=== PATIENT | female | born 1975 | race Caucasian/White ===

== ENCOUNTER 2023-03-23 | Outpatient (REF) | payer OTHER, SELFPAY ==
[2023-03-30 09:09] LABS: Age Gdln ACOG Testing Note (.); HPV Aptima Positive (Negative); HPV Genotype 16 Negative (Negative); HPV Genotype 18,45 Negative (Negative); IGP, Aptima HPV, rfx 16/18,45 Note (.)
== END 2023-03-23 00:01 | disposition home or self-care (01) ==
LOC: LAB
PROVIDERS: PCP Nurse Practitioner; Visit Provider Obstetrics & Gynecology
DX: Z01.419 Encounter for gynecological examination (general) (routine) without abnormal findings (principal)
CPT/HCPCS: 87624; G0145

== ENCOUNTER 2023-03-23 13:00 | Outpatient (OUT) | payer OTHER, SELFPAY ==
--- NOTE | 2023-03-23 | ECG_ITS ---
[facility] Test Date: 2023-03-23 Pat Name: VEDA HEWITT Department: Room: - Gender: Female [employer]: : 1975 Requested By: LARRY VEGA Order Number: [id number] Reading MD: BENJAMIN BOOKER Measurements Intervals [place] Rate: 75 P: 42 CO: 168 QRS: 74 QRSD: 90 T: 96 QT: 394 QTc: 441 Interpretive Statements SINUS RHYTHM WITH OCCASIONAL VENTRICULAR PREMATURE COMPLEXES NONSPECIFIC T-WAVE ABNORMALITY No previous ECG available for comparison Electronically Signed On 03-23-2023 21:01:24 EDT by BENJAMIN BOOKER
[2023-03-23 13:47] LABS: Hematocrit 39.7 % (36.0-48.0); Hemoglobin 13.4 g/dL (12.0-16.0); Mean Corpuscular HGB Conc 33.8 g/dL (29.9-35.2); Mean Corpuscular Hemoglobin 31.3 pg (26.7-34.0); Mean Corpuscular Volume 92.8 fL (81.0-99.0); Mean Platelet Volume 9.8 fL (9.5-13.5); Monocytes Percent Auto 5.3 % (1.7-12.0); Neutrophils Percent Auto 60.5 % (43.0-75.0); Platelet Count 264 10^3/uL (150-450); Red Blood Count 4.28 10^6/uL (4.20-5.40); Red Cell Distribution Width 12.7 % (11.0-15.0)
[2023-03-23 13:48] LABS: Basophils Absolute Auto 0.1 10^3/uL (0.0-0.1); Basophils Percent Auto 0.8 % (0.2-2.0); Eosinophils Absolute Auto 0.5 10^3/uL (0.0-0.7); Eosinophils Percent Auto 6.1 % (0.9-7.0); Immature Granulocytes Abs Auto 0.02 10^3/uL (0.00-0.03); Immature Granulocytes Pct Auto 0.3 % (0.0-0.5); Lymphocytes Absolute Auto 2.2 10^3/uL (1.2-3.8); Monocytes Absolute Auto 0.4 10^3/uL (0.3-0.8); Neutrophils Absolute Auto 4.8 10^3/uL (1.4-6.5)
[2023-03-23 14:24] LABS: Alanine Aminotransferase 20 U/L (14-59); Albumin Globulin Ratio 0.8; Albumin Level 3.5 g/dL (3.4-5.0); Alkaline Phosphatase 121 U/L (46-116); Anion Gap 10.2; Aspartate Amino Transferase 10 U/L (15-37); BUN Creatinine Ratio 6.1; Bilirubin Total 0.2 mg/dL (0.2-1.0); Calcium 8.5 mg/dL (8.5-10.1); Carbon Dioxide 31.8 mmol/L (21.0-32.0); Chloride 101 mmol/L (98-107); Estimated GFR (African America >60 (>=60); Estimated GFR (Non-African Ame >60 (>=60); Globulin 4.2 g/dL; Glucose 118 mg/dL (74-106); Sodium 140 mmol/L (136-145); Total Protein 7.7 g/dL (6.4-8.2)
== END 2023-03-23 13:01 | disposition home or self-care (01) ==
LOC: CARD 13:04
PROVIDERS: PCP Nurse Practitioner; Visit Provider Nurse Practitioner
DX: Z01.810 Encounter for preprocedural cardiovascular examination (principal); Z01.812 Encounter for preprocedural laboratory examination; I10 Essential (primary) hypertension
CPT/HCPCS: 36415; 80053; 85025; 93005; G0145

== ENCOUNTER 2023-03-28 15:02 | Outpatient (OUT) | payer OTHER, SELFPAY ==
[2023-03-28 15:34] LABS: Potassium 4.4 mmol/L (3.5-5.1)
[2023-03-28 15:49] LABS: Estimated Average Glucose 108 mg/dL; Glycohemoglobin A1C 5.4 % (4.5-6.2)
== END 2023-03-28 15:03 | disposition home or self-care (01) ==
LOC: LAB 15:04
PROVIDERS: PCP Nurse Practitioner; Visit Provider Nurse Practitioner
DX: E87.6 Hypokalemia (principal); R73.09 Other abnormal glucose
CPT/HCPCS: 36415; 83036; 84132

== ENCOUNTER 2023-04-30 05:47 | Emergency (ER) | payer OTHER, SELFPAY | END 2023-04-30 05:49 | disposition home or self-care (01) | LOC: ER 05:50 | PROVIDERS: Emergency Provider Emergency Medicine; PCP Nurse Practitioner | DX: R11.0 Nausea (principal); K21.9 Gastro-esophageal reflux disease without esophagitis | CPT/HCPCS: 99283 ==

== ENCOUNTER 2023-05-17 12:32 | Outpatient (OUT) | payer OTHER, SELFPAY ==
[2023-05-17 15:59] LABS: Free T4 0.88 ng/dL (0.76-1.46)
[2023-05-17 16:09] LABS: Anion Gap 10.8; BUN Creatinine Ratio 5.6; Calcium 8.2 mg/dL (8.5-10.1); Carbon Dioxide 30.8 mmol/L (21.0-32.0); Chloride 99 mmol/L (98-107); Estimated GFR (African America >60 (>=60); Estimated GFR (Non-African Ame 54 (>=60); Glucose 139 mg/dL (74-106); Sodium 138 mmol/L (136-145); Thyroid Stimulating Hormone 0.345 uIU/mL (0.358-3.740)
[2023-05-17 16:25] LABS: Potassium 2.6 mmol/L (3.5-5.1)
== END 2023-05-17 12:33 | disposition home or self-care (01) ==
LOC: LAB 12:33
PROVIDERS: PCP Nurse Practitioner; Visit Provider Nurse Practitioner
DX: E87.6 Hypokalemia (principal); E03.9 Hypothyroidism, unspecified
CPT/HCPCS: 36415; 80048; 84439; 84443

== ENCOUNTER 2023-05-30 15:08 | Outpatient (OUT) | payer OTHER, SELFPAY ==
[2023-05-30 15:43] LABS: Anion Gap 9.1; BUN Creatinine Ratio 9.6; Calcium 9.1 mg/dL (8.5-10.1); Chloride 103 mmol/L (98-107); Estimated GFR (African America >60 (>=60); Estimated GFR (Non-African Ame 50 (>=60); Glucose 92 mg/dL (74-106); Potassium 3.1 mmol/L (3.5-5.1); Sodium 138 mmol/L (136-145)
== END 2023-05-30 15:09 | disposition home or self-care (01) ==
LOC: LAB 15:09
PROVIDERS: PCP Nurse Practitioner; Visit Provider Nurse Practitioner
DX: E87.6 Hypokalemia (principal)
CPT/HCPCS: 36415; 80048

== ENCOUNTER 2023-06-25 12:02 | Outpatient (OUT) | payer OTHER, SELFPAY ==
[2023-06-25 12:48] LABS: Anion Gap 8.2; BUN Creatinine Ratio 9.6; Calcium 9.1 mg/dL (8.5-10.1); Carbon Dioxide 29.1 mmol/L (21.0-32.0); Chloride 99 mmol/L (98-107); Estimated GFR (African America >60 (>=60); Estimated GFR (Non-African Ame >60 (>=60); Glucose 155 mg/dL (74-106); Potassium 3.3 mmol/L (3.5-5.1); Sodium 133 mmol/L (136-145)
== END 2023-06-25 12:03 | disposition home or self-care (01) ==
LOC: LAB 12:04
PROVIDERS: PCP Nurse Practitioner; Visit Provider Nurse Practitioner
DX: E87.6 Hypokalemia (principal)
CPT/HCPCS: 36415; 80048

== ENCOUNTER 2023-08-24 16:37 | Outpatient (OUT) | payer OTHER, SELFPAY ==
--- OUTSIDE RECORDS SUMMARY | 2023-08-24 16:54 | XMS_ITS | CCD ---
Author Name Unknown Address [address] [place] [address] Organization [facility] Care Team Providers Care Awake Overnight Monitor Name Role Phone Gena Kirby Unavailable Unavailable Unavailable Gena Kirby Primary Care Provider Unavailable Primary Care Provider Unavailabl e Yi Moreno MD Unavailable Wiley Mcmanus Unavailable Yi Moreno MD Unavailable Gena Kirby Primary Care Provider MD Wiley Mcmanus Attending Provider MD Yi Moreno Referring Provider [phone] Isabel Sin Unavailable Matthew RITCHIE MD, Justin Unavailable Gena Corrales Unavailable Gena Kirby Primary Care Provider Yi Moreno MD Unavailable Matthew RITCHIE MD, Justin Unavailable [phone] Gena Corrales Unavailable Gena Kirby Primary Care Provider [phone] MD Yi Moreno Referring Provider MD Wiley Mcmanus Attending Provider [phone] Gena Corrales Unavailable AICHHOLZ, GREASER HELPER GENA Admitting Unavailable AICHHOLZ, GREASER HELPER GENA Attending Unavailable AICHHOLZ, GREASER HELPER GENA Consulting Unavailable AICHHOLZ, GREASER HELPER GENA Primary Care Unavailable KAVITHA ., DR ARIZA Attending Unavailable KAVITHA ., DR ARIZA Consulting Unavailable KAVITHA ., DR ARIZA Admitting Unavailable AICHHOLZ, GREASER HELPER GENA Primary Care Unavailable WEST, DR WILEY Bryant Consulting Unavailable KAVITHA ., DR ARIZA Attending Unavailable AICHHOLZ, GREASER HELPER GENA Primary Care Unavailable KAVITHA ., DR ARIZA Admitting Unavailable KAVITHA ., DR ARIZA Consulting Unavailable AICHHOLZ, GREASER HELPER GENA Primary Care Unavailable AICHHOLZ, GREASER HELPER GENA Admitting Unavailable AICHHOLZ, GREASER HELPER GENA Attending Unavailable AICHHOLZ, GREASER HELPER GENA Consulting Unavailable KAVITHA ., DR ARIZA Attending Unavailable AICHHOLZ, GREASER HELPER GENA Primary Care Unavailable KAVITHA ., DR ARIZA Admitting Unavailable KAVITHA ., DR ARIZA Admitting Unavailable KAVITHA ., DR ARIZA Attending Unavailable AICHHOLZ, GREASER HELPER GENA Primary Care Unavailable KAVITHA ., DR ARIZA Consulting Unavailable TATETERESAMARTIN Consulting Unavailable MARGARITA II, BERTHA Consulting Unavailable KAVITHA ., DR ARIZA Attending Unavailable AICHHOLZ, GREASER HELPER GENA Primary Care Unavailable KAVITHA ., DR ARIZA Admitting Unavailable KAVITHA ., DR ARIZA Attending Unavailable AICHHOLZ, GREASER HELPER GENA Primary Care Unavailable KAVITHA ., DR ARIZA Admitting Unavailable KAVITHA ., DR ARIZA Consulting Unavailable KAVITHA ., DR ARIZA Admitting Unavailable KAVITHA ., DR ARIZA Attending Unavailable AICHHOLZ, GREASER HELPER GENA Primary Care Unavailable AICHHOLZ, GREASER HELPER GENA Primary Care Unavailable AICHHOLZ, GREASER HELPER GENA Attending Unavailable AICHHOLZ, GREASER HELPER GENA Admitting Unavailable AICHHOLZ, GREASER HELPER GENA Consulting Unavailable KAVITHA ., DR ARIZA Attending Unavailable KAVITHA ., DR ARIZA Consulting Unavailable AICHHOLZ, GREASER HELPER GENA Primary Care Unavailable KAVITHA ., DR ARIZA Admitting Unavailable ZIEBER, DR MADDI Wild Consulting Unavailable AICHHOLZ, GREASER HELPER GENA Consulting Unavailable AICHHOLZ, GREASER HELPER GENA Primary Care Unavailable AICHHOLZ, GREASER HELPER GENA Attending Unavailable AICHHOLZ, GREASER HELPER GENA Admitting Unavailable MISC, DR PETERS Admitting Unavailable MISC, DR PETERS Attending Unavailable MISC, DR PETERS Consulting Unavailable AICHHOLZ, GREASER HELPER GENA Primary Care Unavailable AICHHOLZ, GREASER HELPER GENA Primary Care Unavailable AICHOLZ, GREASER HELPER GENA Attending Unavailable AICHHOLZ, GREASER HELPER GENA Admitting Unavailable AICHHOLZ, GREASER HELPER GENA Consulting Unavailable PROVIDER, UNKNOWN Admitting Unavailable PROVIDER, UNKNOWN Attending Unavailable YI MORENO Referring Unavailabl e YI MORENO Admitting Unavailabl e YI MORENO Attending Unavailabl e YI MORENO Referring Unavailabl e CLEMOW, RIKKI Admitting Unavailable PROVIDER, UNKNOWN Attending Unavailable PROVIDER, UNKNOWN Admitting Unavailable PROVIDER, UNKNOWN Attending Unavailable PATIENT, SELF Referring Unavailable PROVIDER, UNKNOWN Admitting Unavailable PROVIDER, UNKNOWN Attending Unavailable YI MORENO Referring Unavailabl e PROVIDER, UNKNOWN Admitting Unavailable PROVIDER, UNKNOWN Attending Unavailable PATIENT, SELF Referring Unavailable PROVIDER, UNKNOWN Admitting Unavailable PROVIDER, UNKNOWN Attending Unavailable YI MORENO Referring Unavailabl e PROVIDER, UNKNOWN Admitting Unavailable PROVIDER, UNKNOWN Attending Unavailable RIKKI RODRIGUES Referring Unavailable YI MORENO Admitting Unavailabl e HERMES, YI Rebollar Attending Unavailabl e CLEMOWSTEWARTIN Admitting Unavailable CLEMORIKKI Frey Attending Unavailable PROVIDER, UNKNOWN Admitting Unavailable PROVIDER, UNKNOWN Attending Unavailable CLEMORIKKI Frey Referring Unavailable PROVIDER, UNKNOWN Admitting Unavailable PROVIDER, UNKNOWN Attending Unavailable PATIENT, SELF Referring Unavailable PROVIDER, UNKNOWN Admitting Unavailable PROVIDER, UNKNOWN Attending Unavailable PROVIDER, UNKNOWN Admitting Unavailable PROVIDER, UNKNOWN Attending Unavailable YI MORENO Referring Unavaildania e HERMES ERNST~[id number] Attending Unavailable HERMES ERNST~[id number], HERMES Beltran Admitting Unavailable YI SYKES DO Consulting Unavailable AA NO PCP, NO PCP Primary Care Unavailable YI SYKES DO Consulting Unavailable GENA KIRBY Primary Care Unavailable ELIN BALLARD Referring Unavailable ELIN BALLARD Referring Unavailable GENA KIRBY Primary Care Unavailable ELIN BALLARD Referring Unavailable GENA KIRBY Primary Care Unavailable AICHHOLZ, GENA J. Primary Care Unavailable FELIZ WEAVER Referring Unavailable Gena Kirby Primary Care Provider MD Wiley Mcmanus Attending Provider Louise Johnson Unavailable Kar Lyman Unavailable Gena Kirby Primary Care Provider KATHRIN Lyman Attending Provider MD David Martinez Attending Provider Asaad, Imad Unavailable Wiley Mcmanus Attending Unavailable Gena Kirby Primary Care Unavailable Wiley Mcmanus Admitting Unavailable Gena Kirby Primary Care Unavailable Kar Lyman Admitting Unavailable Kar Lyman Attending Unavailable Wiley Mcmanus Admitting Unavailable Wiley Mcmanus Attending Unavailable Yi Moreno Referring Unavailable Gena Kirby Primary Care Unavailable Gena Kirby Primary Care Unavailable Asaad, Imad Admitting Unavailable David Martinez Attending Unavailable Medications Current Medications Medication Drug Class(es) Dates Sig (Normalized) Sig (Original) acetaminophen 500 mg oral tablet (20 sources) Start: 07-17-2022 take 1 tablet by mouth every six hours as needed for pain acetaminophen (TYLENOL) 500 MG tablet Take 1 Tablet by mouth every 6 hours as needed for Pain or Fever. 30 Tablet 0 07/17/2022 Active Start: 07-15-2022 acetaminophen (TYLENOL) 650 MG/20.3ML oral solution SF Start: 07-14-2022 End: 07-15-2022 take 650 mg by mouth every four hours 650 mg, Oral, EVERY 4 HOURS, First dose on Tue07/14/22 at 1530, Until Discontinued, ICU/Step Down Start: 02-25-2022 take 2 tablets by mo msh every four hours as needed acetaminophen (TYLENOL) 325 mg tablet Take 2 Tablets by mouth every 4 hours as needed. 30 Tablet 0 02/26/2022 Active Start: 02-25-2022 take 1 tablet by rosy every eight hours as needed for pain acetaminophen (Tylenol 8 Hour) 650 MG CR tablet Take 1 Tablet by mouth every 8 hours as needed for Pain or Fever. 30 Tablet 0 02/25/2022 Active Start: 01-05-2022 End: 01-05-2022 acetaminophen (TYLENOL) tabl et 650 mg Tylenol CAPS ALEXANDRA E 1 CAPSULE Daily prn Quantity: 0 Refills: 0 Ordered: 14-Oct-2021 DO Active amoxicillin 875 mg / clavulanate 125 mg oral tablet (1 source) Penicillin-class Antibacterial Start: 07-17-2022 End: 07-21-2022 take 1 tablet by mouth twice daily amoxicillin-clavulanate (Augmentin) 875-125 MG per tablet Take 1 Tablet by mouth 2 times daily for 4 days. 8 Tablet 0 07/17/2022 07/21/2022 Active Ampicillin / Sulbactam (2 sources) Penicillin-class Antibacterial, beta Lactamase Inhibitor Start: 07-15-2022 End: 07-20-2022 ampicillin-sulbactam (Unasyn) 3000 mg in NS 100 mL ivpb Start: 07-14-2022 End: 07-14-2022 3,000 mg, Intravenous, EVERY 6 HOURS ANTIBIOTIC, 2 doses, First dose on Tue07/14/22 at 1530, Last dose on Tue07/14/22 at 1800 budesonide 3 mg delayed release oral capsule (2 sources) Corticosteroid Start: 08-10-2023 Budesonide 3 M G 3 tabs daily for 60 days, 2 tabs daily for 14 days, 1 tab daily for 14 days Orally Once a day for 88 days Jul, Active calcium polycarbophil (8 sources) Calcium Polycarb ophil (FIBER-CAPS PO) Take by mouth as needed 0 Suspended Calcium Polycarb ophil (FIBER-CAPS PO) Take by mouth as needed 0 Active chlorhexidine gluconate 1.2 mg/ml mouthwash (13 sources) Start: 07-17-2022 take 15 mL by mouth twice daily chlorhexidine (Peridex) 0.12 % oral solution Take 15 mL by mouth 2 times daily. 1 mL 3 07/17/2022 Active Start: 07-14-2022 15 mL, Swish & Spit, 2 TIMES DAILY, First dose on Tue07/14/22 at 1530, Until Discontinued, ICU/Step Down cholecalciferol 0.05 mg oral capsule (3 sources) Vitamin D take 1 capsule by mouth every twenty-four hours Vitamin D3 50 MCG (1999 UT) 1 capsule Orally Once a day Active citric acid 68.6 MG/ML / magnesium oxide 20 MG/ML / picosulfate sodium 0.0571 MG/ML Oral Solution [Clenpiq] (1 source) Start: take 1 dose by mouth once daily Clenpiq 10-3.5-12 MG-GM -GM/175ML 175 mL the first dose at 3pm and second dose at 9pm Orally Once a day for 1 days Jun, Active clenpiq 10-3.5-12 mg-gm -gm/175ml solution (2 sources) Start: take 1 dose by mouth once daily Clenpiq 10-3.5-12 MG-GM -GM/175ML 175 mL the first dose at 3pm and second dose at 9pm Orally Once a day for 1 days Jun, Active dicyclomine hydrochloride 10 mg oral capsule (2 sources) Anticholinergic Start: take 1 capsule by mouth every eight hours Dicyclomine HCl 10 MG 1 capsule Orally Three times a day for 30 days Jul, Active 0.4 ml enoxaparin sodium 100 mg/ml prefilled syringe (2 sources) Low Molecular Weight Heparin Start: enoxaparin (LOVENOX) 40 MG/0.4ML injection 40 mg Start: 07-14-2022 End: 07-15-2022 inject 40 mg by subcutaneous injection once daily 40 mg, Subcutaneous, DAILY, First dose on Tue07/14/22 at 1530, Until Discontinued, ICU/Step Down Fiber (8 sources) Fiber Active 250 ml glucose 50 mg/ml / so dium chloride 4.5 mg/ml injection (2 sources) Start: 07-16-2022 End: 07-19-2022 dextrose 5 % and NaCl 0.45 % iv infusion Start: 07-16-2022 End: 07-16-2022 dextrose 5 % and sodium chlo ride 0.45 % iv bolus hydroCHLOROthiazide 25 mg / triamterene 37.5 mg oral tablet (20 sources) Potassium-sparing Diuretic, Thiazide Diuretic Start: 10-14-2021 take 1 tablet by mouth once daily Triamterene-HCTZ 37.5-25 MG Oral Tablet TAKE 1 TABLET DAILY DIRECTED. Quantity: 90 Refills: 3 Ordered: 14-Oct-2021 Eileen Nichols MD Start : 14-Oct-2021 Active stop lasix and potassium Start: 10-14-2021 End: 05-28-2022 take 1 tablet by mouth every other day at bedtime triamterene-hydrochlorothiazide (MAXZIDE ) 37.5-25 MG tablet Take 1 Tablet by mouth every other day. HS 0 12/14/2021 Active ibuprofen 600 mg oral tablet (6 sources) Nonsteroidal Anti-inflammatory Drug Start: 07-14-2022 End: 07-24-2022 take 1 tablet by mouth every six hours as needed for pain ibuprofen (MOTRIN) 600 MG tablet Take 1 Tablet by mouth every 6 hours as needed for Pain for up to 7 days. 28 Tablet 3 07/17/2022 07/24/2022 Active take 1 tablet by rosy once daily as needed Ibuprofen 200 MG Oral Tablet TAKE 1 TABL ET Daily prn Quantity: 0 Refills: 0 Ordered: 14-Oct-2021 DO Active insulin lispro 100 unt/ml injectable solution (1 source) Insulin Analog Start: 07-15-2022 insulin lispro (HumaLOG) 100 UNIT/ML injection 2 ml metoclopramide 5 mg/ml prefilled syringe (1 source) Dopamine-2 Receptor Antagonist Start: 01-05-2022 End: 01-05-2022 10 mg, IntraVENous, ONCE PRN, 1 dose, Starting on Tue01/05/22 at 1558, Until Tue01/05/22 at 2359, Nausea Secondary antiemetic therapy. PACU only Multiple Vitamins-Minerals (THERAPEUTIC MULTIVITAMIN-MINERALS ) tablet (6 sources) take 1 tablet by mouth once daily Multiple Vitamins-Minerals (THERAPEUTIC MULTIVITAMIN-MINE RALS) tablet Take 1 tablet by mouth daily 0 Suspended take 1 tablet by mouth once gagan y Multiple Vitamins-Minerals (THERAPEUTIC MULTIVITAMIN-MINERALS) tablet Take 1 tablet by mouth daily 0 Active Multivitamin preparation (8 sources) Multivitamin Act alisia 1 ml naloxone hydrochloride 0.4 mg/ml injection (2 sources) Opioid Antagonist Start: 07-14-2022 naloxone (NARCAN) 0.4 MG/ML injection Start: 02-25-2022 0.4 mg, Intrav enous Push, PRN, Starting on Christen 02/25/22 at 1423, Until Discontinued, Respiratory Rate Less Than 8 for adults and less than 12 for Peds or for suspected overdose, Post-op norethindrone 0.35 mg oral tablet (20 sources) Start: 02-26-2022 norethindrone (MICRONOR) tablet TABS OLANZapine 5 mg disintegrating oral tablet (20 sources) Atypical Antipsychotic Start: 07-15-2022 OLANZapine (ZyPREXA ZYDIS) disintegrating tablet Start: 07-14-2022 End: 07-15-2022 take 10 mg by mouth at bedtime 10 mg, Oral, AT BEDTIME , First dose on Tue07/14/22 at 2200, Until Discontinued, ICU/Step Down Start: 11-17-2021 take 1 tablet by rosy th at bedtime OLANZapine (ZyPREXA) 5 MG tablet Take 5 mg by mouth at bedtime. 0 11/17/2021 Active take 2 tablets by mo [facility] at bedtime OLANZapine (ZyPREXA) 5 MG tablet Take 10 mg by mouth. hs 0 Active oxybutynin chloride 5 mg oral tablet (20 sources) Cholinergic Muscarinic Antagonist Start: 01-06-2022 oxybutynin (DITROPAN) 5 MG tablet Take 5 mg by mouth. 0 01/06/2022 Active oxyCODONE hydrochloride 5 mg oral tablet (7 sources) Opioid Agonist Start: 07-17-2022 End: 07-22-2022 take 1 tablet by mouth every six hours as needed for pain oxyCODONE 5 MG immediate release tablet Indications: DIONNE (obstructive sleep apnea) , Pain Take 1 Tablet by mouth every 6 hours as needed for Pain for up to 5 days. 20 Tablet 0 07/17/2022 07/22/2022 Active Start: 07-15-2022 oxyCODONE (WALLY ICODONE) 5 mg/5 mL oral solution Start: 07-14-2022 End: 07-15-2022 take 10 mg by mouth every four hours as needed for pain 10 mg, Oral, EVERY 4 HOURS PRN, Starting on Tue07/14/22 at 1516, Until Christen 07/15/22 at 0828, Severe Pain (pain score 7,8,9,10), ICU/Step Down Start: 02-25-2022 take 10 mg by mouth every four hours as needed 10 mg, Oral, EVERY 4 HOURS PRN, Starting on Christen 02/25/22 at 1423, Until Discontinued, Severe Pain (pain score 7,8,9,10), Post-op Start: 02-25-2022 take 5 mg by mouth e very four hours as needed 5 mg, Oral, EVERY 4 HOURS PRN, Starting on Christen 02/25/22 at 1423, Until Discontinued, Moderate Pain (pain score 4,5,6), Post-op Start: 01-05-2022 End: 01-05-2022 oxyCODONE (ROXICODONE) immed iate release tablet 5 mg phentermine hydrochloride 37.5 mg oral tablet (14 sources) Sympathomimetic Amine Anorectic Start: 06-30-2022 take 1 tablet by mouth once daily Phentermine HCl 37.5 MG TABS Take 1 Tablet by mouth daily. 0 06/30/2022 Active potassium chloride 20 meq extended release oral tablet (3 sources) take 1 tablet by mouth every twenty-four hours Potassium Chloride ER 20 MEQ 1 tablet with food Orally Once a day Active Probiotic (8 sources) Probiotic Active Probiotic Product (PROBIOTIC DAILY PO) (8 sources) Probiotic Produc t (PROBIOTIC DAILY PO) Take by mouth as needed 0 Suspended Probiotic Produc t (PROBIOTIC DAILY PO) Take by mouth as needed 0 Active pseudoephedrine hydrochloride 30 mg oral tablet (11 sources) alpha-Adrenergic Agonist Start: 07-17-2022 take 1 tablet by mouth every four hours as needed for congestion pseudoephedrine (SUDAFED) 30 MG tablet Take 1 Tablet by mouth every 4 hours as needed for Congestion. 30 Tablet 0 07/17/2022 Active QUEtiapine 50 mg oral tablet (10 sources) Atypical Antipsychotic Start: 09-14-2022 take 2 tablets by mouth once daily QUEtiapine (SEROQUEL) 50 MG tablet TAKE 2 TABLETS BY MOUTH NIGHTLY 0 09/14/2022 Active Start: 08-25-2021 take 1 tablet by rosy th once daily QUEtiapine Fumarate 100 MG Oral Tablet TAKE 1 TABLET BY MOUTH DAILY Quantity: 30 Refills: 0 Ordered: 28-Sep-2021 DO Start : 25-Aug-2021 Active sodium chloride 0.111 meq/ml nasal solution (15 sources) Start: 07-17-2022 take 1 spray(s) nasa l route twice daily as needed for congestion sodium chloride (Stevens Nasal [place]) 0.65 % nasal spray Use 1 [place] in each nostril as needed for Congestion (2 puffs nasally twice daily). 1 mL 3 07/17/2022 Active Start: 07-14-2022 1 [place], Nasal , EVERY 1 HOUR PRN, Starting on Tue07/14/22 at 1516, Until Discontinued, Congestion, Congestion due to dryness, ICU/Step Down Start: 01-05-2022 take 1 dose intraven ously twice daily 5-40 mL, IntraVENous, EVERY 12 HOURS SCHEDULED (2 times per day), First dose on Tue01/05/22 at 2100, Until Discontinued For Line Patency: Peripheral IV = 5 mL; Midline or Central Line = 10 mL/lumen. If following IV push medication, administer flush at same rate as the IV push. Flush volume is determined by type of infusion therapy being given. For non-viscous solutions use: Peripheral IV = 5 mL Midline or Central Line = 10 mL/lumen For viscous solutions (i.e. blood components, parenteral nutrition, contrast media, or after obtaining blood sample) use: Peripheral IV = 10 mL Midline or Central Line = 20 mL/lumen PACU only Start: 01-05-2022 IntraVENous, a t 5-250 mL/hr, PRN, if patient receiving piggyback infusions and maintenance fluids are not ordered OR KVO fluids to protect IV site / prevent frequent line interruptions/ long duration, Starting on Tue01/05/22 at 1558 For piggyback infusion, administer at same rate as piggyback for a total of 25 mL. Enter 25 mL into dose field and piggyback rate into rate field of order. If piggyback is infusing at a rate less than 100 mL/hr, enter 25 mL into dose field and 100 mL/hr into rate field of order. For KVO fluids, enter rate of 20 mL/hr or less into rate field of order. PACU only Start: 01-05-2022 take 5-40 mL intrave nously once as needed 5-40 mL, IntraVENous, PRN, Starting on Tue01/05/22 at 1558, Until Discontinued, Line Care, After every IV line use For Line Patency: Peripheral IV = 5 mL; Midline or Central Line = 10 mL/lumen. If following IV push medication, administer flush at same rate as the IV push. Flush volume is determined by type of infusion therapy being given. For non-viscous solutions use: Peripheral IV = 5 mL Midline or Central Line = 10 mL/lumen For viscous solutions (i.e. blood components, parenteral nutrition, contrast media, or after obtaining blood sample) use: Peripheral IV = 10 mL Midline or Central Line = 20 mL/lumen PACU only solifenacin succinate 10 mg oral tablet (3 sources) Cholinergic Muscarinic Antagonist Start: 12-13-2022 End: 12-13-2023 take 1 tablet by mouth once daily solifenacin (VESICARE) 10 MG tablet Take 1 tablet by mouth daily 30 tablet 3 12/13/2022 12/13/2023 Active tamsulosin hydrochloride 0.4 mg oral capsule (20 sources) alpha-Adrenergic Mami Start: 01-06-2022 take 1 capsule by mouth once daily tamsulosin (FLOMAX) 0.4 MG capsule Take 1 Capsule by mouth daily. 0 01/06/2022 Active VITAMIN D, CHOLECALCIFEROL, PO (8 sources) VITAMIN D, CHOLECALCIFEROL, PO Take by mouth 0 Suspended VITAMIN D, EDU CALCIFEROL, PO Take by mouth 0 Active Vitamin D3 (5 sources) Vitamin D3 Activ e Completed/Discontinued Medications Medication Drug Class(es) Dates Sig (Normalized) Sig (Original) ARIPiprazole (5 sources) Atypical Antipsychotic Abilify Not-Taking atenolol 50 mg oral tablet (20 sources) beta-Adrenergic Mami Start: 07-14-2022 End: 07-15-2022 take 100 mg by mouth once daily 100 mg, Oral, DAILY, First dose on Tue07/14/22 at 1800, Until Discontinued, ICU/Step Down Start: 02-25-2022 atenolol (TENO RMIN) tablet Start: 08-25-2021 take 1 tablet by rosy th once daily atenolol (TENORMIN) 100 mg tablet Take 100 mg by mouth daily. 0 12/01/2021 Active atorvastatin 20 mg oral tablet (20 sources) HMG-CoA Reductase Inhibitor Start: 07-14-2022 take 20 mg by mouth once daily 20 mg, Oral, DAILY, First dose on Tue07/14/22 at 1800, Until Discontinued, ICU/Step Down Start: 02-26-2022 atorvastatin ( LIPITOR) tablet Start: 01-01-2022 atorvastatin ( LIPITOR) 20 mg tablet Take 20 mg by mouth. 0 01/01/2022 Active bifidobacterium animalis [id number] unt / lactobacillus acidophilus [id number] unt oral capsule (2 sources) Probiotic CAPS U SE DIRECTED. Quantity: 0 Refills: 0 Ordered: 14-Oct-2021 DO Active bisacodyl 5 mg delayed release oral tablet (1 source) Stimulant Laxative Start: 2 take 10 mg by mouth once daily as needed 10 mg, Oral, DAILY PRN, Starting on Tue07/14/22 at 1516, Until Discontinued, Constipation, ICU/Step Down calcium chloride 0.0014 meq/ml / potassium chloride 0.004 meq/ml / sodium chloride 0.103 meq/ml / sodium lactate 0.028 meq/ml injectable solution (4 sources) Start: 2 End: 2 lactated ringers iv infusion Start: 02-25-2022 lactated ringe rs iv infusion Start: 01-05-2022 End: 01-05-2022 lactated ringers infusion 200 ml ciprofloxacin 2 mg/ml injection (1 source) Quinolone Antimicrobial Start: 01-05-2022 End: 01-05-2022 ciprofloxacin (CIPRO) IVPB 400 mg clonazePAM 0.5 mg oral tablet (20 sources) Benzodiazepine Start: 07-14-2022 take 1 mg by mouth every twelve hours as needed 1 mg, Oral, EVERY 12 HOURS PRN, Starting on Tue07/14/22 at 1732, Until Discontinued, Anxiety, ICU/Step Down Start: 01-06-2022 take 1 tablet by rosy th every twelve hours as needed clonazePAM (KlonoPIN) 1 MG tablet Take 1 mg by mouth every 12 hours as needed. 0 01/06/2022 Active take 1 tablet by rosy th twice daily as needed clonazePAM (KLONOPIN) 1 MG tablet Take 1 tablet by mouth 2 times daily as needed. 0 Active take 1 tablet by rosy th once daily as needed KlonoPIN 1 MG Oral Tablet TAKE 1 TABLET Daily prn Quantity: 0 Refills: 0 Ordered: 14-Oct-2021 DO Active 1 ml dexamethasone phosphate 4 mg/ml injection (1 source) Corticosteroid Start: 07-14-2022 End: 07-15-2022 8 mg, Intravenous Push, EVERY 8 HOURS, 3 doses, First dose on Tue07/14/22 at 1530, Last dose on Tue07/15/22 at 0900, ICU/Step Down dimenhyDRINATE 50 mg oral tablet (1 source) Start: 01-05-2022 End: 01-05-2022 dimenhyDRINATE (DRAMAMINE) tablet 50 mg docusate sodium 100 mg oral capsule (2 sources) Start: 07-14-2022 take 100 mg by mouth twice daily 100 mg, Oral, 2 TIMES DAILY, First dose on Tue07/14/22 at 1530, Until Discontinued, ICU/Step Down Start: 02-25-2022 take 100 mg by mouth twice daily 100 mg, Oral, 2 TIMES DAILY, First dose on Tue02/25/22 at 1430, Until Discontinued, Post-op famotidine 20 mg oral tablet (2 sources) Histamine-2 Receptor Antagonist Start: 07-14-2022 take 20 mg by mouth twice daily 20 mg, Oral, 2 TIMES DAILY, First dose on Tue07/14/22 at 1530, Until Discontinued, ICU/Step Down Start: 02-25-2022 take 20 mg intraveno usly twice daily 20 mg, Intravenous Push, 2 TIMES DAILY, First dose on Tue02/25/22 at 1430, Until Discontinued, Post-op 2 ml fentaNYL 0.05 mg/ml injection (1 source) Opioid Agonist Start: 01-05-2022 50 mcg, IntraVENous, EVERY 5 MIN PRN, 2 doses, Starting on Tue01/05/22 at 1558, Until Discontinued, Pain Severe (7-10) For Phase I. If Phase II oral narcotics have been administered in the last 60 minutes, do not administer IV narcotics unless specifically approved by provider. PACU only HYDROmorphone (DILAUDID) 0.2 MG/ML injection 0.2 mg (1 source) Start: 02-25-2022 End: 02-25-2022 HYDROmorphone (DILAUDID) 0.2 MG/ML injection 0.2 mg Ketorolac (8 sources) Nonsteroidal Anti-inflammatory Drug, Cyclooxygenase Inhibitor Start: 06-05-2015 Toradol per 15 mg 15 May, 2015 60 mg levothyroxine sodium 0.05 mg oral tablet (20 sources) l-Thyroxine Start: 07-14-2022 take 50 ug by mouth before breakfast 50 mcg, Oral, BEFORE BREAKFAST, First dose on Tue07/14/22 at 1800, Until Discontinued, ICU/Step Down Start: 07-08-2022 take 1 tablet by rosy th once daily levothyroxine (SYNTHROID) 75 MCG tablet Take 1 tablet by mouth Daily 0 07/08/2022 Active Start: 01-05-2022 take 1 tablet by rosy th once daily in the morning levothyroxine (SYNTHROID) 25 MCG tablet TAKE 1 TABLET BY MOUTH EVERY DAY IN THE AM ON AN EMPTY STOMACH. DO NOT EAT OR DRINK FOR 2 HOURS AFTER TAKING 0 01/05/2022 Active take 1 tablet by rosy th once daily in the morning Levothyroxine Sodium 75 MCG 1 tablet in the morning on an empty stomach Orally Once a day Active Levothyroxine So dium Active metFORMIN hydrochloride 500 mg oral tablet (20 sources) Biguanide Start: 07-14-2022 take 500 mg by mouth once daily 500 mg, Oral, DAILY, First dose on Tue07/14/22 at 1800, Until Discontinued, ICU/Step Down Start: 05-30-2022 take 1 tablet by rosy th once daily metformin (GLUCOPHAGE-XR) 500 MG XR tablet Take 500 mg by mouth daily. 0 05/30/2022 Active methylPREDNISolone (14 sources) Corticosteroid Start: 02-25-2022 End: 07-08-2022 methylPREDNISolone (MEDROL DOSEPAK) 4 mg tablet Please take according to instructions on container 21 Tablet 0 02/25/2022 07/08/2022 Discontinued (Therapy completed) Start: 02-25-2022 methylPREDNISo lone (MEDROL DOSEPAK) 4 mg tablet Please take according to instructions on container 21 Tablet 0 02/25/2022 Active 1 ml morphine sulfate 4 mg/ml injection (1 source) Opioid Agonist Start: 07-14-2022 End: 07-14-2022 morphine sulfate 4 MG/ML injection Multi Vitamin TABS (2 sources) Multi Vitamin TA BS TAKE 1 TABLET DAILY. Quantity: 0 Refills: 0 Ordered: 14-Oct-2021 DO Active Fannie-BE (5 sources) Fannie-BE Not-Taki ng Fannie-BE Active Fannie-BE 0.35 MG Oral Tablet (2 sources) take 1 tablet by mouth once daily Fannie-BE 0.35 MG Oral Tablet TAKE 1 TABLET DAILY. Quantity: 0 Refills: 0 Ordered: 14-Oct-2021 DO Active 2 ml ondansetron 2 mg/ml injection (3 sources) Serotonin-3 Receptor Antagonist Start: 07-14-20 take 4 mg intravenously every six hours as needed 4 mg, Intravenous Push, EVERY 6 HOURS PRN, Starting on Tue07/14/22 at 1516, Until Discontinued, Nausea, Vomiting, ICU/Step Down Start: 02-25-2022 End: 03-01-2022 take 4 mg intravenously every six hours as needed for nausea 4 mg, Intravenous Push, EVERY 6 HOURS PRN, Starting on Christen 02/25/22 at 1423, Until 03/01/22 at 1422, Nausea, Vomiting, Post-op Start: 01-05-2022 End: 01-05-2022 4 mg, IntraVENous, ONCE PRN, 1 dose, Starting on Tue01/05/22 at 1558, Until Tue01/05/22 at 2359, Nausea Initial antiemetic therapy. PACU only oxymetazoline hydrochloride 0.5 mg/ml nasal spray (1 source) Start: 07-14-2022 2 [place], Nasal , EVERY 4 HOURS PRN, Starting on Tue07/14/22 at 1516, Until Discontinued, Nosebleed, ICU/Step Down potassium phosphate 15 mmol injection in D5W (1 source) Start: 07-16-2022 End: 07-16-2022 potassium phosphate 15 mmol injection in D5W sennosides, shelter 1.76 mg/ml oral solution (20 sources) Start: 02-25-2022 take 8.8 mg by mouth at bedtime 8.8 mg (5 mL), Oral, AT BEDTIME, First dose on Christen 7/7/22 at 2200, Until Discontinued, Post-op Start: 02-25-2022 take 1 tablet by rosy th once daily as needed for constipation senna (SENOKOT) 8.6 MG tablet Take 1 Tablet by mouth daily as needed for Constipation. 30 Tablet 0 02/25/2022 Active sucralfate 100 mg/ml oral suspension (20 sources) Aluminum Complex Start: 02-25-2022 take 1 dose by mouth four times daily before mealtime 1 g, Oral, 4 TIMES DAILY BEFORE MEALS & AT BEDTIME, First dose on Tue02/25/22 at 1700, Until Discontinued, Post-op Start: 02-25-2022 take 1 tablet by rosy th four times daily sucralfate (CARAFATE) 1 GM tablet Take 1 Tablet by mouth 4 times daily. 40 Tablet 3 02/25/2022 Active 24 hr venlafaxine 37.5 mg extended release oral capsule (20 sources) Serotonin and Norepinephrine Reuptake Inhibitor Start: 07-14-2022 take 75 mg by mouth once daily 75 mg, Oral, DAILY, First dose on Tue07/14/22 at 1800, Until Discontinued, ICU/Step Down Start: 11-30-2021 take 1 capsule by mo uth once daily venlafaxine (EFFEXOR XR) 150 MG ER capsule Take 150 mg by mouth daily. 0 11/30/2021 Active Start: 11-30-2021 take 1 capsule by mo uth once daily venlafaxine (EFFEXOR XR) 75 MG ER capsule Take 75 mg by mouth daily. 0 11/30/2021 Active take 1 tablet by rosy th once daily venlafaxine (EFFEXOR) 75 MG tablet Take 1 tablet by mouth daily 0 Active Vitamin D3 TABS (2 sources) Vitamin D3 TABS TAKE 1 TABLET DAILY. Quantity: 0 Refills: 0 Ordered: 14-Oct-2021 DO Active Problems Active Problems Problem Classification Problem Date Documented Da te Episodic/Chronic Acute bronchitis (5 sources) Acute bronchitis; Translations: [Acute bronchitis] Episodic Anxiety disorders (20 sources) Anxiety; Translations: [Anxiety disorder, unspecified] Onset: 11-09-2021 Resolved: 11-09-2021 11-19-2021 Chronic Calculus of urinary tract (20 sources) Kidney stone; Translations: [Calculus of kidney] Onset: 01-04-2022 11-19-2021 Episodic Cardiac dysrhythmias (2 sources) Ventricular premature beats; Translations: [Other premature beats] Chronic Contraceptive and procreative management (4 sources) Encounter for sterilization; Translations: [ENCOUNTER FOR STERILIZATION] Onset: 11-12-2022 Episodic Disorders of lipid metabolism (1 source) Hyperlipidemia, unspecified; Translations: [HYPERLIPIDEMIA UNSPECIFIED] Onset: 11-16-2022 Chronic Essential hypertension (8 sources) Benign essential hypertension; Translations: [Benign essential hypertension] Onset: 11-16-2022 Chronic Genitourinary symptoms and ill-defined conditions (4 sources) Urge incontinence of urine; Translations: [Urge incontinence] Onset: 02-23-2022 02-23-2022 Chronic Genitourinary symptoms and ill-defined conditions (12 sources) Agustin hematuria; Translations: [Gross hematuria] Onset: 08-12-2022 11-19-2021 Episodic Immunizations and screening for infectious disease (2 sources) Patient encounter status; Translations: [Encounter for laboratory testing for severe acute respiratory syndrome coronavirus 2 (SARS-CoV-2)] Episodic Menopausal disorders (1 source) Hormone replacement therapy; Translations: [HORMONE REPLACEMENT THERAPY] Onset: 11-16-2022 Episodic Menstrual disorders (4 sources) Irregular menstruation, unspecified; Translations: [IRREGULAR MENSTRUATION UNSPECIFIED] Onset: 05-11-2022 Chronic Mood disorders (20 sources) Acute depression; Translations: [Acute depression] Onset: 11-09-2021 Resolved: 11-09-2021 11-19-2021 Chronic Mood disorders (1 source) Mood disorders; Translations: [DEPRESSION UNSPECIFIED] Onset: 11-16-2022 Other aftercare (1 source) 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; Translations: [OTH INTERMEDIATE CURRENT DRUG THERAPY] Onset: 11-16-2022 Episodic Other diseases of bladder and urethra (3 sources) Overactive bladder; Translations: [Overactive bladder] Onset: 02-23-2022 02-23-2022 Chronic Other diseases of bladder and urethra (1 source) Overactive bladder; Translations: [Overactive bladder] Onset: 02-23-2022 Chronic Other gastrointestinal disorders (3 sources) Diarrhea; Translations: [Diarrhea, unspecified] Episodic Other gastrointestinal disorders (1 source) Diarrhea, unspecified Episodic Other gastrointestinal disorders (1 source) Fecal urgency Episodic Other nervous system disorders (8 sources) Sleep-wake schedule disorder, delayed phase type; Translations: [Circadian rhythm sleep disorder, 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 Other nervous system disorders (1 source) Circadian rhythm sleep disorder, delayed sleep phase type Onset: 11-09-2021 Resolved: 11-09-2021 Chronic Other nervous system disorders (1 source) Postoperative pain ; Translations: [Other acute postprocedural pain] Episodic Other nutritional; endocrine; and metabolic disorders (2 sources) Obesity; Translations: [Obesity, unspecified] Chronic Other nutritional; endocrine; and metabolic disorders (13 sources) Body mass index 30+ - obesity; Translations: [Body mass index (BMI) 34.0-34.9, adult] Chronic Other nutritional; endocrine; and metabolic disorders (2 sources) Body mass index (BMI) 32.0-32.9, adult; Translations: [Body mass index (BMI) 32.0-32.9, adult] Onset: 11-09-2021 Resolved: 11-09-2021 Chronic Other nutritional; endocrine; and metabolic disorders (1 source) Body mass index (BMI) 35.0-35.9, adult; Translations: [Body mass index (BMI) 35.0-35.9, adult] Onset: 07-08-2022 Chronic Other upper respiratory infections (2 sources) Acute pharyngitis, unspecified; Translations: [Acute upper respiratory infection, unspecified] Episodic Residual codes; unclassified (20 sources) Obstructive sleep apnea syndrome; Translations: [Obstructive sleep apnea (adult)(pediatric)] Onset: 01-15-2022 Chronic Residual codes; unclassified (20 sources) Sleep apnea; Translations: [Sleep apnea, unspecified] 11-19-2021 Chronic Residual codes; unclassified (8 sources) Insomnia; Translations: [Other insomnia] Chronic Residual codes; unclassified (4 sources) Obstructive sleep apnea (adult) (pediatric); Translations: [Obstructive sleep apnea (adult) (pediatric)] Onset: 11-09-2021 Resolved: 11-09-2021 Chronic Residual codes; unclassified (1 source) Other insomnia Onset: 11-09-2021 Resolved: 11-09-2021 Chronic Residual codes; unclassified (1 source) Sleep apnea, unspecified; Translations: [SLEEP APNEA UNSPECIFIED] Onset: 11-16-2022 Chronic Residual codes; unclassified (1 source) Obstructive sleep apnea (adult)(pediatric); Translations: [Obstructive sleep apnea (adult) (pediatric)] Onset: 03-16-2023 Chronic Residual codes; unclassified (2 sources) Edema of lower extremity; Translations: [Edema] Episodic Residual codes; unclassified (1 source) Pain; Translations: [Pain, unspecified] Episodic Residual codes; unclassified (2 sources) Postoperative state; Translations: [Other specified postprocedural states] Episodic Residual codes; unclassified (1 source) Acquired absence of other specified parts of digestive tract; Translations: [ACQ ABSENCE OTH PART DIGESTV TRACT] Onset: 11-16-2022 Episodic Screening and history of mental health and substance abuse codes (2 sources) Ex-smoker; Translations: [Personal history of tobacco use] Episodic Comment on above: Quit 2019; Thyroid disorders (18 sources) Hypothyroidism; Translations: [Hypothyroidism, unspecified] Onset: 11-09-2021 Resolved: 11-09-2021 Chronic Unclassified (1 source) ENCOUNTER OPENED IN ERROR Unclassified (3 sources) CONTACT W/AND (SUSP) EXPOS COVID-19; Translations: [CONTACT W/AND (SUSP) EXPOS COVID-19] Onset: 12-04-2022 Unclassified (1 source) Diarrhea, unspecified; Translations: [Diarrhea, unspecified] Onset: 06-30-2023 Urinary tract infections (8 sources) Recurrent urinary tract infection; Translations: [Urinary tract infection, site not specified] 11-19-2021 Episodic Past or Other Problems Problem Classification Problem Date Documented Date Episodic/Chronic Other screening for suspected conditions (not mental disorders or infectious disease) (8 sources) Echocardiogram abnormal; Translations: [Nonspecific (abnormal) findings on radiological and other examination of other intrathoracic organs] Onset: 02-16-2022 Episodic Residual codes; unclassified (4 sources) Asymptomatic menopausal state; Translations: [ASYMPTOMATIC MENOPAUSAL STATE] Onset: 05-07-2022 Episodic Residual codes; unclassified (1 source) Other specified postprocedural states; Translations: [Other specified postprocedural states] Onset: 08-30-2022 Episodic Unclassified (1 source) CONTACT W/AND (SUSP) EXPOS COVID-19; Translations: [CONTACT W/AND (SUSP) EXPOS COVID-19] Onset: 11-26-2022 Unclassified (1 source) Contact with and (suspected) exposure to covid-19 Z20.822 Results Test Name Value Interpretation Reference Range Facility HCG ( test) Sylvia osacr Ql (U)Ordered By: David Martinez on 08-08-2023 HCG ( test) Ql (U) Negative [facility] HCG,Urineon 08-08-2023 Beta HCG ( test) Ql (U) Negative Normal [facility] Comment on above: Result Comment: PERF ORMED BY: [place] [address] PATHOLOGIST SUSTAINABILITY MANAGER CHRIS GUERRERO M.D. Performed By: #### U HCG #### [address] 08-08-2023 L -------- -------- Specimen: [id number] Received: 08/08/23 Status: MALCOLM Kaela Num: [id number] Spec Type: Surgical Subm Dr: David Martinez MD Tissues: A Colon Biopsy (RNDM COL BX) Procedures: HE/2, Gross/Micro L4 -------- Age/ Patient Sex Location Account Attending Physician -------- Isabelle Hewitt I 48/F [id number] David Martinez MD -------- SPEC NUM: [id number] RECD: 08/08/23 STATUS: MALCOLM CARDONA NUM: [id number] ANGEL LUIS: 08/08/[address] [facility] DR: David Martinez MD ENTERED: 08/08/23 [facility] DR: LOKESH TYPE: Surgical DEPT: S ENTERED BY: [id number] RECV BY: [id number] ORDERED: HE/2, Gross/Micro L4 ORDERED: HE/2, Gross/Micro L4 Pathological Diagnosis Random colonic biopsies: - Inflammation with edema and vascular congestion, mild within lamina propria consistent with nonspecific microscopic colitis Clinical Information Diarrhea, fecal urgency, rule out microscopic colitis Gross Description Received in formalin labeled with the patient's name, date of and random colon rule out microscopic colitis is one maloney tissue measuring 0.5 x 0.3 x 0.2 cm. Entirely submitted in one cassette labeled A1. Microscopic Description Two H E slides reviewed. The microscopic examination confirms the diagnosis. CPT Codes 47186 -------- -------- Specimen: [id number] Received: 08/08/23 Status: MALCOLM Cardona Num: [id number] Spec Type: Surgical Subm Dr: David Martinez MD Tissues: A Colon Biopsy (RNDM COL BX) Procedures: HE/2, Gross/Micro L4 -------- Patient: Isabelle Hewitt I [id number] (Continued) -------- Signed (signature on file) Desmond Sarah MD 08/09/23 0957 Normal [facility] Amylaseon 06-30-2023 Amylase [Catalytic activity/Vol] 42 U/L Normal 29-103 [facility] Comment on above: Order Comment: Bry guy for Exam Diarrhea, unspecified type Performed By: #### L IPASE, CRP, ESR, ROSHNI, TSH3 #### [address] #### HIV SCREEN, CALPROTECT, ELASTASE STOOL, CELIAC #### [facility] , Amylase [Enzymatic activity/ volume] in Serum or PlasmaOrdered By: Kar Lyman on 06-30-2023 Amylase [Catalytic activity/Vol] 42 U/L 29-103 [facility] C reactive protein [Mass/vol ume] in Serum or PlasmaOrdered By: Kar Lyman on 06-30-2023 CRP [Mass/Vol] < 0.5 mg/dL 0.0-0.5 [facility] C-Reactive Proteinon 023 CRP [Mass/Vol] mg/L Normal 0.0-0.5 [facility] Comment on above: Order Comment: Reaso n for Exam Diarrhea, unspecified type Performed By: #### L IPASE, CRP, ESR, ROSHNI, TSH3 #### [address] #### HIV SCREEN, CALPROTECT, ELASTASE STOOL, CELIAC #### [facility] , Calprotectin [Mass/mass] in StoolOrdered By: Kar Lyman on 06-30-2023 Calprotectin (Stl) [Mass/Mass] 36 ug/g 0-120 [facility] Comment on above: Concentration Interp retation Follow-Up< 5 - 50 ug/g Normal None>50 -120 ug/g Borderline Re-evaluate in 4-6 weeks >120 ug/g Abnormal Repeat as clinically indicatedPerformed at: [facility] [address] [id number] Director: Andrew Cameron MD, Phone: [phone] Calprotectin, Fecalon 2022 Calprotectin, Fecal 36 Normal 0-120 [facility] Comment on above: Order Comment: Reaso n for Exam Diarrhea, unspecified type Result Comment: Conc entration Interpretation Follow-Up < 5 - 50 ug/g Normal None >50 -120 ug/g Borderline Re-evaluate in 4-6 weeks >120 ug/g Abnormal Repeat as clinically indicated Performed at: - [facility] [id number] Estate Planning Paralegal: Andrew Cameron MD, Phone: [phone] PERFORMED BY: [facility] [address] [place] [id number] PATHOLOGIST SUSTAINABILITY MANAGER CHRIS GUERRERO M.D. Performed By: #### L IPASE, CRP, ESR, ROSHNI, TSH3 #### [address] #### HIV SCREEN, CALPROTECT, ELASTASE STOOL, CELIAC #### [facility] , Celiacon 06-30-2023 Deamidated Gliadin Abs, IgA 7 Normal 0-19 [facility] Comment on above: Order Comment: Reaso n for Exam Diarrhea, unspecified type Result Comment: Nega tive 0 - 19 Weak Positive 20 - 30 Moderate to Strong Positive >30 Performed By: #### L IPASE, CRP, ESR, ROSHNI, TSH3 #### [address] #### HIV SCREEN, CALPROTECT, ELASTASE STOOL, CELIAC #### [facility] , Deamidated Gliadin Abs, IgG 2 Normal 0-19 [facility] Comment on above: Order Comment: Reaso n for Exam Diarrhea, unspecified type Result Comment: Nega tive 0 - 19 Weak Positive 20 - 30 Moderate to Strong Positive >30 Performed By: #### L IPASE, CRP, ESR, ROSHNI, TSH3 #### [address] #### HIV SCREEN, CALPROTECT, ELASTASE STOOL, CELIAC #### [facility] , Endomysial Antibody IgA Negative Normal Negative [facility] Comment on above: Order Comment: Reaso n for Exam Diarrhea, unspecified type Performed By: #### L IPASE, CRP, ESR, ROSHNI, TSH3 #### [facility] [address] [place] [address] #### HIV SCREEN, CALPROTECT, ELASTASE STOOL, CELIAC #### [facility] , Immunoglobulin A, Qn, Serum 505 mg/dL High 87-352 [facility] Comment on above: Order Comment: Reaso n for Exam Diarrhea, unspecified type Result Comment: Perf ormed at: - [facility] [place] [id number] [place], [place] [id number] Estate Planning Paralegal: Fran Guthrie PhD, Phone: [phone] Performed By: #### L IPASE, CRP, ESR, ROSHNI, TSH3 #### [address] #### HIV SCREEN, CALPROTECT, ELASTASE STOOL, CELIAC #### [facility] , T-Transglutaminase (tTG) IgA <2 Normal 0-3 [facility] Comment on above: Order Comment: Reaso n for Exam Diarrhea, unspecified type Result Comment: Nega tive 0 - 3 Weak Positive 4 - 10 Positive >10 Tissue Transglutaminase (tTG) has been identified as the endomysial antigen. Studies have demonstr- ated that endomysial IgA antibodies have over 99% specificity for gluten sensitive enteropathy. Performed By: #### L IPASE, CRP, ESR, ROSHNI, TSH3 #### [place] [address] [place] #### HIV SCREEN, CALPROTECT, ELASTASE STOOL, CELIAC #### [facility] , T-Transglutaminase (tTG) IgG <2 Normal 0-5 [facility] Comment on above: Order Comment: Reaso n for Exam Diarrhea, unspecified type Result Comment: Nega tive 0 - 5 Weak Positive 6 - 9 Positive >9 Performed By: #### L IPASE, CRP, ESR, ROSHNI, TSH3 #### [place] [address] [place] #### HIV SCREEN, CALPROTECT, ELASTASE STOOL, CELIAC #### [facility] , Elastase.pancreatic [Mass/ma ss] in StoolOrdered By: Kar Lyman on 06-30-2023 Elastase.pancreatic (Stl) [Mass/Mass] 327 >200 [facility] Comment on above: Result Units: ug Nighat st./g Severe Pancreatic Insufficiency: <100 Moderate Pancreatic Insufficiency: 100 - 200 Normal: >200Performed at: - [facility] [address] [id number] Director: Andrew Cameron MD, Phone: [phone] Erythrocyte Sedimentation Ra zari 06-30-2023 ESR (Bld) [Velocity] 51 mm/h High 0-19 [facility] Comment on above: Order Comment: Reaso n for Exam Diarrhea, unspecified type Result Comment: PERF ORMED BY: [place] [address] PATHOLOGIST SUSTAINABILITY MANAGER CHRIS GUERRERO M.D. Performed By: #### L IPASE, CRP, ESR, ROSHIN, TSH3 #### [facility] [address] [place] [address] #### HIV SCREEN, CALPROTECT, ELASTASE STOOL, CELIAC #### [facility] , Erythrocyte sedimentation ra te by Photometric methodOrdered By: Kar Lyman on 06-30-2023 ESR Photometric method (Bld) [Velocity] 51 mm/hr 0-19 [facility] HIV 1/O/2 Antigen/Antibodyon 06-30-2023 HIV Screen 4th Generation Non-Reactive Normal Non Reactive [facility] Comment on above: Order Comment: Reaso n for Exam Diarrhea, unspecified type Result Comment: HIV Negative HIV-1/HIV-2 antibodies and HIV-1 p24 antigen were NOT detected. There is no laboratory evidence of HIV infection. Performed at: [facility] [id number] Estate Planning Paralegal: Frna Guthrie PhD, Phone: [phone] PERFORMED BY: [place] [address] PATHOLOGIST SUSTAINABILITY MANAGER CHRIS GUERRERO M.D. Performed By: #### L IPASE, CRP, ESR, ROSHNI, TSH3 #### [facility] [address] [place] [address] [place] #### HIV SCREEN, CALPROTECT, ELASTASE STOOL, CELIAC #### [facility] , HIV 1 and HIV-2 antibody ass ay with HIV-1 p24 antigen detectionOrdered By: Kar Lyman on 06-30-2023 HIV 1+2 Ab+HIV1 p24 Ag IA Ql Non-Reactive Non Reactive [facility] Comment on above: HIV NegativeHIV-1/HI V-2 antibodies and HIV-1 p24 antigen were NOTdetected. There is no laboratory evidence of HIV infection.Performed at: - [facility] [address] [id number] Director: Fran Guthrie PhD, Phone: [phone] IgA [Mass/volume] in Serum o r PlasmaOrdered By: Kar Lyman on 06-30-2023 IgA [Mass/Vol] 505 mg/dL 87-352 [facility] Comment on above: Performed at: - [facility] [address] [id number] Director: Fran Guthrie PhD, Phone: [phone] Lipaseon 06-30-2023 Lipase [Catalytic activity/Vol] 45.0 U/L Normal 11.0-82.0 [facility] Comment on above: Order Comment: Reaso n for Exam Diarrhea, unspecified type Performed By: #### L IPASE, CRP, ESR, ROSHNI, TSH3 #### [address] #### HIV SCREEN, CALPROTECT, ELASTASE STOOL, CELIAC #### [facility] , Lipase [Enzymatic activity/v olume] in Serum or PlasmaOrdered By: Kar Lyman on 06-30-2023 Lipase [Catalytic activity/Vol] 45.0 U/L 11.0-82.0 [facility] No Panel InformationOrdered By: Kar Lyman on 06-30-2023 Endomysial IgA Antibody Negative Negative [facility] Pancreatic Elastase, Stoolon 06-30-2023 Pancreatic Elastase, Stool 327 Normal >200 [facility] Comment on above: Order Comment: Reaso n for Exam Diarrhea, unspecified type Result Comment: Resu lt Units: ug Elast./g Severe Pancreatic Insufficiency: <100 Moderate Pancreatic Insufficiency: 100 - 200 Normal: >200 Performed at: [facility] [id number] Estate Planning Paralegal: Andrew Cameron MD, Phone: [phone] PERFORMED BY: [place] [id number] PATHOLOGIST SUSTAINABILITY MANAGER CHRIS GUERRERO M.D. Performed By: #### L IPASE, CRP, ESR, ROSHNI, TSH3 #### [address] #### HIV SCREEN, CALPROTECT, ELASTASE STOOL, CELIAC #### [facility] , Serum gliadin peptide IgA an tibody assay (units/volume)Ordered By: Kar Lyman on 06-30-2023 Gliadin peptide IgA Qn (S) 7 units 0-19 [facility] Comment on above: Negative 0 - 19 Weak Positive 20 - 30 Moderate to Strong Positive >30 Serum gliadin peptide IgG an tibody assay (units/volume)Ordered By: Kar Lyman on 06-30-2023 Gliadin peptide IgG Qn (S) 2 units 0-19 [facility] Comment on above: Negative 0 - 19 Weak Positive 20 - 30 Moderate to Strong Positive >30 Serum tissue transglutaminas e (tTG) IgA antibody assay (units/volume)Ordered By: Kar Lyman on 06-30-2023 tTG IgA Qn (S) <2 U/mL 0-3 [facility] Comment on above: Negative 0 - 3 Weak Positive 4 - 10 Positive >10 Tissue Transglutaminase (tTG) has been identified as the endomysial antigen. Studies have demonstr- ated that endomysial IgA antibodies have over 99% specificity for gluten sensitive enteropathy. Serum tissue transglutaminas e (tTG) IgG antibody assay (units/volume)Ordered By: Kar Lyman on 06-30-2023 tTG IgG Qn (S) <2 U/mL 0-5 [facility] Comment on above: Negative 0 - 5 Weak Positive 6 - 9 Positive >9 Thyroid Stimulating Hormoneo n 06-30-2023 TSH Qn 0.57 m[IU]/L Normal 0.45-5.33 [facility] Comment on above: Order Comment: Reaso n for Exam Diarrhea, unspecified type Result Comment: PERF ORMED BY: [facility] [address] [facility] [place] [address] PATHOLOGIST SUSTAINABILITY MANAGER CHRIS GUERRERO M.D. Performed By: #### L IPASE, CRP, ESR, ROSHNI, TSH3 #### [facility] [address] [place] [address] [place] #### HIV SCREEN, CALPROTECT, ELASTASE STOOL, CELIAC #### [facility] , Thyrotropin [Units/volume] i n Serum or PlasmaOrdered By: Kar Lyman on 06-30-2023 TSH Qn 0.57 m[IU]/L 0.45-5.33 [facility] COVID + FLU Quick Testingon 06-07-2023 SARS-CoV-2 (COVID-19) RNA JOHNNIE+probe Ql (Unsp spec) Negative [facility] [employer] Other COVID + FLU Quick Testing Negative [facility] [employer] Other Quick Strepon 06-07-2023 S. pyogenes Org specific cx Ql (Throat) Negative [facility] [employer] Other Quick Strep [facility] [employer] Other Operative Reporton 3 Operative Report [facility] [address] [place] [address] RECORD OF PROCEDURE PATIENT NAME: ISABELLE HEWITT DATE OF : 1975 MED REC #: [id number] PT LOCATION: OR PACU PT TYPE: OPS AGE: 47 SEX: F ADMISSION DATE: 02/21/2023 DATE OF SERVICE: 02/21/2023 SURGEON: Yi Moreno MD ANESTHESIA: Propofol sedation. PREPROCEDURE DIAGNOSIS: Obstructive sleep apnea with continuous positive airway pressure (CPAP) intolerance. POSTPROCEDURE DIAGNOSIS: Obstructive sleep apnea with continuous positive airway pressure (CPAP) intolerance. NAME OF PROCEDURE: Drug-induced sleep endoscopy. INDICATIONS FOR PROCEDURE: A 47-year-old female. History of very severe obstructive sleep apnea, and she has undergone several sleep surgeries including an expansion sphincter pharyngoplasty, as well as a maxillomandibular advancement procedure. This improved her DIONNE quite a bit, but she, on her last sleep study from November 16, 2022, that had followed both sleep surgeries, demonstrates still persistent severe obstructive sleep apnea with an AHI of 31, with minimal central apneas, and an O2 carlene of 82%. She continues to not be able to use CPAP due to the same reasons that we had outlined before including claustrophobia, and she continues to feel that her sleep is very unrestful with significant headaches in the morning. She was now brought back to the sedation room to perform a sleep endoscopy to assess for further sleep surgical treatment options. FINDINGS: -Velopharynx and oropharynx are partially 50% AP obstructed. There is no complete concentric collapse. -Base of tongue is 100% AP obstructed, improving moderately with gentle jaw thrust. -Epiglottis is not obstructed. -The lower pharyngeal sidewalls are slightly medialized, and improve significantly with gentle jaw thrust. -The patient is not a mouth breather. RECOMMENDATIONS: Hypoglossal nerve stimulation. DESCRIPTION OF PROCEDURE: The patient was brought back to the procedure room. Afrin and lidocaine applied to the nares. Propofol was then given, and the patient was then examined via transnasal endoscopy, with findings as described above, at which point she was taken back to recovery room in stable condition. Yi Moreno MD /[id number] [facility] File#: [id number] CC: Yi Moreno MD [facility] Telephone Encounteron 2022 Pct Authentication Interface Message Text Situation: Patient called in Background: She says that she wanted to let provider know taht she would be following a different dr to his new practice for follow up treatment Assessment: NA Recommendation: Please advise and george patient if needed at Phone numbers Thank You Normal [facility] [employer] [facility] Pct Authentication Interface Message Text Called and left voicemail for patient. Post-op Home Sleep Test reviewed from [facility], and there is considerable improvement. Pre-op AHI is 102, now down to 31. Pre-op O2 Carlene of 71%, now up to 82%. However, still with considerable desat time. There are notes from Dr. Moreno evaluating for INSPIRE I presume, but nothing since November. Asked patient for call back or mychart message with if she has been able to continue with Dr. Moreno at his new office, or if she needs referral to another [facility]. -montrell Normal [facility] [employer] [facility] MG MAMM SCREEN 3D LEEANNE CADon 01-18-2023 MG MAMM SCREEN 3D LEEANNE CAD Patient: ISABELLE HEWITT I. 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 MG MAMM SCREEN LEEANNE W CAD, 02/05/2020. INDICATIONS: Screening mammography Calculator Name NCI Breast Cancer Risk Assessment Tool 5 Year Breast Cancer Risk Not Reported. Lifetime Breast Cancer Risk Not Reported. Personal Breast Cancer No Personal Ovarian Cancer No Treatments None Family Cancers None LOCATION: [facility] BREAST COMPOSITION: Heterogeneously dense,which may obscure small masses. FINDINGS: DIAGNOSTIC CATEGORY 2--BENIGN FINDING: RIGHT BREAST: No significant suspicious finding. No significant change has occurred. LEFT BREAST: No significant suspicious finding. Scattered benign-appearing calcifications are present. No significant change has occurred. RECOMMENDATIONS: ROUTINE MAMMOGRAM AND CLINICAL EVALUATION IN 12 MONTHS. PLEASE NOTE: A NORMAL MAMMOGRAM DOES NOT EXCLUDE THE POSSIBILITY OF BREAST CANCER. A CLINICALLY SUSPICIOUS PALPABLE LUMP SHOULD BE BIOPSIED. Dictated by: Maddi Winston M.D. on 01/19/2023 at 13:23 Approved by: Maddi Winston M.D. on 01/19/2023 at 13:37 Normal [facility] Cult,Urineon 12-14-2022 Cult,Urine Specimen Description .CLEAN CATCH URINE Culture NO GROWTH Report Status FINAL 12/14/2022 Normal [facility] Comment on above: Performed By: #### U #### [facility] [place] [address] Estate Planning Paralegal: Taiwo Wray MD [facility] [address] [place], [place] [id number] Estate Planning Paralegal: Wiley Wheatley MD Urinalysis w/ Microon 2022 Bacteria TRACE Abnormal NONE [facility] Comment on above: Performed By: #### U AMIC #### [facility] [address] [place] [address] Estate Planning Paralegal: Wiley Wheatley MD Bilirubin, SemiQt,Ur Negative Normal NEG [facility] Comment on above: Performed By: #### U AMIC #### [facility] [address] [place] [id number] Estate Planning Paralegal: Wiley Wheatley MD Blood, Urine Negative Normal NEG [facility] Comment on above: Performed By: #### U AMIC #### [facility] [address] [place] [address] [place] [place], [place] [id number] Estate Planning Paralegal: Wiley Wheatley MD Clarity (U) Clear Normal CLEAR [facility] Comment on above: Performed By: #### U AMIC #### [facility] [address] [place] [address] Dr. [place], [facility] Estate Planning Paralegal: Wiley Wheatley MD Color (U) Yellow Normal YEL [facility] Comment on above: Performed By: #### U AMIC #### [facility] [address] [place], [facility]83 Estate Planning Paralegal: Wiley Wheatley MD Epithelial cells LM Ql (Urine sed) 0 TO 2 Normal 0-25 [facility] Comment on above: Performed By: #### U AMIC #### [facility] [address] [place], [place] [id number] Estate Planning Paralegal: Wiley Wheatley MD Glucose Ql (U) Negative Normal NEG [facility] Comment on above: Performed By: #### U AMIC #### [facility] [address] [place] [address] Estate Planning Paralegal: Wiley Wheatley MD Ketones Ql (U) Negative Normal NEG [facility] Comment on above: Performed By: #### U AMIC #### [facility] [address] [place] [address] [place] [address] Estate Planning Paralegal: Wiley Wheatley MD Leukocyte esterase Test strip Ql (U) Negative Normal NEG [facility] Comment on above: Performed By: #### U AMIC #### [facility] [address] [place] [address] [place], [place] [phone] Estate Planning Paralegal: Wiley Wheatley MD Nitrite,Ur Negative Normal NEG [facility] Comment on above: Performed By: #### U AMIC #### [facility] [address] [place] [address] [place], [place] [phone] Estate Planning Paralegal: Wiley Wheatley MD PH,Ur 6.5 Normal 5.0-9.0 [facility] Comment on above: Performed By: #### U AMIC #### [facility] [address] [place] [address] [place], [place] [phone] Estate Planning Paralegal: Wiley Wheatley MD Protein Ql (U) Negative Normal NEG [facility] Comment on above: Performed By: #### U AMIC #### [address] [place], [place] [phone] Estate Planning Paralegal: Wiley Wheatley MD Spec. [place],Ur <1.005 Low 1.010-1.02 0 [facility] Comment on above: Performed By: #### U AMIC #### [facility] [address] [place] [address] [place] [place], [place] [phone] Estate Planning Paralegal: Wiley Wheatley MD Urine RBC's None Normal 0-2 [facility] Comment on above: Performed By: #### U AMIC #### [facility] [address] [place] [address] [place] [place], [place] [phone] Estate Planning Paralegal: Wiley Wheatley MD Urine WBC's None Normal 0-5 [facility] Comment on above: Performed By: #### U AMIC #### [facility] [address] [place] [address] Estate Planning Paralegal: Wiley Wheatley MD Urobilinogen,Ur Normal Normal NORM [facility] Comment on above: Performed By: #### U AMIC #### [facility] [address] [place] [address] Estate Planning Paralegal: Wiley Wheatley MD Urinalysis with Microscopico n 12-13-2022 Bacteria, UA TRACE Abnormal None [facility] Bilirubin Urine Negative NEGATIVE [facility] Color, UA Yellow Yellow [facility] Epithelial Cells UA 0 TO 2 [facility] Glucose Auto test strip (U) [Mass/Vol] Negative NEGATIVE [facility] Interpretation and review of laboratory results Abnormal [facility] Ketones (U) [Mass/Vol] Negative NEGATIVE [facility] Leukocyte esterase Auto test strip Ql (U) Negative NEGATIVE [facility] Nitrite Auto test strip Ql (U) Negative NEGATIVE [facility] Protein (U) [Mass/Vol] 6.5 mg/dL 5.0 - 9.0 [facility] Protein (U) [Mass/Vol] Negative NEGATIVE [facility] RBC clumps Auto (Urine sed) [#/Area] None [facility] Specific [place], UA Low 1.010 - 1.020 [facility] Turbidity UA Clear Clear [facility] Urine Hgb Negative NEGATIVE [facility] Urobilinogen, Urine Normal Normal [facility] WBC, UA None [facility] Covid-19 PCR (CVDTBH)on SARS-CoV-2 (COVID-19) RNA JOHNNIE+probe Ql (Unsp spec) Not detected Normal NOT DETECTED [facility] Comment on above: Result Comment: This test is not yet approved or cleared by the [place] FDA. When there are no FDA-approved or cleared tests available, and other criteria are met, FDA can make tests available under an emergency access mechanism called an Emergency Use Authorization (EUA). The EUA for this test is supported by the [employer] of Health and Human Service's (HHS's) declaration that circumstances exist to justify the emergency use of in vitro diagnostics for the detection and/or diagnosis of the virus that causes COVID-19. This EUA will remain in effect (meaning this test can be used) for the duration of the COVID-19 declaration justifying emergency of IVDs, unless it is terminated or revoked by FDA (after which the test may no longer be used). When diagnostic testing is negative, the possibility of a false negative should be considered in the context of a patient's recent exposures and the presence of clinical signs and symptoms consistent with SARS-CoV-2. Performed By: #### C VDTB #### [facility] [address] [place] [address] Dr. Stephanie Gibbs INFLUENZA A AND B AGon 11-26 [facility] SEE BELOW Normal [facility] Comment on above: Result Comment: Nega tive for Flu A protein angiten. Infection due to Flu A cannot be ruled out. Flu A angiten in the sample may be below the detection limit of the test. Performed By: #### I NFLUAB #### [facility] [address] [place] [address] Dr. [facility] Normal [facility] Comment on above: Result Comment: Nega tive for Flu B protein antigen. Infection due to Flu B cannot be ruled out. Flu B antigen in the sample may be below the detection limit of the test. Performed By: #### I NFLUAB #### [facility] [address] [place] [address] Dr. Stephanie Gibbs INFLUENZA A AG Negative Normal NEGATIVE SEE COMMENT [facility] Comment on above: Performed By: #### I NFLUAB #### [facility] [address] [place] [address] Dr. Stephanie Gibbs INFLUENZA B AG Negative Normal NEGATIVE SEE COMMENT [facility] Comment on above: Performed By: #### I NFLUAB #### [facility] [address] [place] [address] Dr. Stephanie Gibbs SYMPTOMATIC COVID-19 ANTIGEN on 11-26-2022 EUA Statement SEE BELOW Normal [facility] Comment on above: Result Comment: This test has not been FDA cleared or approved, but has been authorized by the FDA under an Emergency Use Authorization (EUA) for use by authorized laboratories certified under CLIA that meet the requirements to perform moderate or high complexity testing. This test has been authorized only for the detection of proteins from SARS-CoV-2, not for any other viruses or pathogens. The emergency use of this test is authorized for the duration of the declaration that circumstances exist justifying the authorization of emergency use of in vitro diagnostic tests for detection and/or diagnosis of Covid-19 under section 564(b)(1) of the Act, 21 U.S.C. 360bbb-3(b)(1), unless the declaration is terminated or authorization is revoked sooner. Performed By: #### C BC #### [facility] [address] [place] [address] Dr. Stephanie Gibbs SARS-CoV-2 (COVID-19) RNA JOHNNIE+probe Ql (Unsp spec) Negative Normal NEGATIVE [facility] Comment on above: Performed By: #### C BC #### [facility] [address] [place] [address] Dr. Stephanie Gibbs Telephone Encounteron 2022 Pct Authentication Interface Message Text Requesting sleep study results and next steps. Please advise. Normal [facility] [facility] CBC AUTO DIFFon 11-12-2022 BASO # 0.1 103/ul Normal 0.0-0.1 [facility] Comment on above: Performed By: #### C BC #### [facility] [address] [place] [address] Dr. Stephanie Gibbs Basophils/100 WBC (Bld) 0.9 % Normal 0.2-2.0 [facility] Comment on above: Performed By: #### C BC #### [facility] [address] [place] [address] Dr. Stephanie Gibbs EO # 0.3 103/ul Normal 0.0-0.7 [facility] Comment on above: Performed By: #### C BC #### [facility] [address] [place] [address] Dr. Stephanie Gibbs Eosinophils/100 WBC (Bld) 4.7 % Normal 0.9-7.0 [facility] Comment on above: Performed By: #### C BC #### [facility] [address] [place] [address] Dr. Stephanie Gibbs Erythrocyte distribution width (RBC) [Ratio] 13.4 % Normal 11.0-15.0 [facility] Comment on above: Performed By: #### C BC #### [facility] [address] [place] [address] Dr. Stephanie Gibbs Hematocrit (Bld) [Volume fraction] 43.0 % Normal 36.0-48.0 [facility] Comment on above: Performed By: #### C BC #### [facility] [address] [place] [address] Dr. Stephanie Gibbs Hemoglobin (Bld) [Mass/Vol] 13.9 g/dL Normal 12.0-16.0 [facility] Comment on above: Performed By: #### C BC #### [facility] [address] [place] [address] Dr. Stephanie Gibbs IG # 0.01 10e3/ul Normal 0.00-0.03 [facility] Comment on above: Performed By: #### C BC #### [facility] [address] [place] [address] Dr. Stephanie Gibbs IG % 0.2 % Normal 0.0-0.5 [facility] Comment on above: Performed By: #### C BC #### [facility] [address] [place] [address] Dr. Stephanie Gibbs LYMPH # 2.3 103/ul Normal 1.2-3.8 [facility] Comment on above: Performed By: #### C BC #### [facility] [address] [place] [address] Dr. Stephanie Gibbs Lymphocytes/100 WBC (Bld) 36.6 % Normal 20.5-60.0 [facility] Comment on above: Performed By: #### C BC #### [facility] [address] [place] [address] Dr. Stephanie Gibbs MANUAL DIFF REQ NO Normal [facility] Comment on above: Performed By: #### C BC #### [facility] [address] [place] [address] Dr. Stephanie Gibbs MCH (RBC) [Entitic mass] 29.7 pg Normal 26.7-34.0 [facility] Comment on above: Performed By: #### C BC #### [facility] [address] [place] [address] Dr. Stephanie Gibbs MCHC (RBC) [Mass/Vol] 32.3 g/dL Normal 29.9-35.2 [facility] Comment on above: Performed By: #### C BC #### [facility] [address] [place] [address] Dr. Stephanie Gibbs MCV (RBC) [Entitic vol] 91.9 fL Normal 81.0-99.0 [facility] Comment on above: Performed By: #### C BC #### [facility] [address] [place] [address] Dr. Stephanie Gibbs MONO # 0.5 103/ul Normal 0.3-0.8 [facility] Comment on above: Performed By: #### C BC #### [facility] [address] [place] [address] Dr. Stephanie Gibbs Monocytes/100 WBC (Bld) 8.3 % Normal 1.7-12.0 [facility] Comment on above: Performed By: #### C BC #### [facility] [address] [place] [address] Dr. Stephanie Gibbs NEUT # 3.2 103/ul Normal 1.4-6.5 [facility] Comment on above: Performed By: #### C BC #### [facility] [address] [place] [address] Dr. Stephanie Gibbs Neutrophils/100 WBC (Bld) 49.3 % Normal 43.0-75.0 [facility] Comment on above: Performed By: #### C BC #### [facility] [address] [place] [address] Dr. Stephanie Gibbs Platelet mean volume (Bld) [Entitic vol] 9.6 fL Normal 9.5-13.5 [facility] Comment on above: Performed By: #### C BC #### [facility] [address] [place] [address] Dr. Stephanie Gibbs PLT 250 103/ul Normal 150-450 [facility] Comment on above: Performed By: #### C BC #### [facility] [address] [place] [address] Dr. Stephanie Gibbs RBC 4.68 106/ul Normal 4.20-5.40 [facility] Comment on above: Performed By: #### C BC #### [facility] [address] [place] [address] Dr. Stephanie Gibbs WBC 6.4 103/ul Normal 4.0-11.0 [facility] Comment on above: Performed By: #### C BC #### [facility] [address] [place] [address] Dr. Stephanie Gibbs POINT OF CARE GLUCOSEon 10-21 Glucose [Mass/Vol] 97 mg/dL Normal 74-106 [facility] Comment on above: Performed By: #### P OCGLUC #### [facility] [address] [place] [address] Dr. Stephanie Gibbs PREG QUANT HCGon 11-12-2022 HCG QUANT 3 mIU/mL Normal [facility] Comment on above: Performed By: #### C BC #### [facility] [address] [place] [address] Dr. Stephanie Gibbs HCG RANGE SEE BELOW Normal [facility] Comment on above: Result Comment: 5-50 0.2-1 WEEK 50-500 1-2 WEEKS 100-5,000 2-3 WEEKS 500-10,000 3-4 WEEKS 1,000-50,000 4-5 WEEKS 10,000-100,000 5-6 WEEKS 15,000-200,000 6-8 WEEKS 10,000-100,000 2-3 MONTHS Performed By: #### C BC #### [facility] [address] [place] [address] Dr. Stephanie Gibbs Telephone Encounteron 2022 Pct Authentication Interface Message Text Opened in error Normal [facility] [employer] [facility] Telephone Encounteron 2022 Pct Authentication Interface Message Text Called patient and left voicemail. Advised that order for post-op PSG was faxed to [facility]. Left number to call to schedule study at her convenience ([phone]) Normal [facility] [employer] [facility] Progress Noteson 10-19-2022 Pct Authentication Interface Message Text CC: sleep disordered breathing Referred by: Dr Mcmanus HPI: Seeing me today to continue further care for her obstructive sleep apnea in the setting of CPAP intolerance. At initial presentation her home sleep study indicated an AHI of 63 with an O2 carlene of 64% Multilevel upper airway obstruction was noted on her 1st sleep endoscopy including oropharynx, base of tongue in the setting of severe retrognathia. 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 Still tired and fatigued. There is no lip numbness. She is lost an additional 15 lb or so because she currently has no dentures and has trouble biting and chewing food Exam A detailed otolaryngological examination including examination of the facial appearance and function, auricles, ear canals, tympanic membranes, nasal aperture and passages, nasal septum, lateral nasal wall, turbinates oral cavity, tongue, oropharynx, dentition, neck, laryngotracheal complex, thyroid parotids, TMJs was normal except stated below: Soft palate is nicely elevated and expanded Jaw significantly retrognathia. Dejesus class 4 Flexible laryngoscopy was performed to assess her base of tongue demonstrating a much so many things improved base of tongue position that is more anterior compared to before MMA. The retro palatal airway looks large. Neuro/Psych: Alert with normal mood and affect. Cranial nerves II-XII grossly intact. Cardiac: Regular rate and rhythm. Respiratory/Chest: Symmetric expansion during respiration, normal respiratory effect, no retractions. Extremities: No clubbing, cyanosis, or edema. Skin: Warm and intact. Assessment and plan: History of obstructive sleep apnea and CPAP intolerance , when she started out she had a very significant upper airway obstruction, multilevel. She is now status post expansion pharyngoplasty as well as a MMA procedure She continues to be symptomatic, unable to tolerate CPAP, complaining about fatigue non restful sleep. She will need a repeat diagnostic sleep study to reassess for new baseline following MMA to determine whether additional see surgeries needed. Will orchestrate this with Dr. Mcmanus. Should be a home sleep study. I anticipate would likely be an inspire implant for residual base of tongue obstruction. Normal [facility] [employer] [facility] Telephone Encounteron 2022 Pct Authentication Interface Message Text PT calling back to check status of her FMLA paperwork from [email or web address]. I verified the correct fax # PT was using ) I called over to PS dept , spoke to Seferino and he stated to have the PT to send it to the e-mail address [email or web address] PT will put ATTN: to Dr. Rodrigues. PT asks to have the paperwork filled out [facility] as it it due soon ( PT didn't state a sate just that it was due) Please call PT once received Normal [facility] [employer] [facility] Telephone Encounteron 2022 Pct Authentication Interface Message Text Patient calling in to see if her FMLA papers were received. Paperwork not scanned into the chart at this time. Please call the patient with confirmation of receipt of the FMLA papers at [phone]. Thank you! Normal [employer] Progress Noteson 09-08-2022 Pct Authentication Interface Message Text Teaching Physician Note: I saw and evaluated the patient. I personally obtained the ulloa and critical portions of the history and physical exam. I reviewed the resident's documentation and discussed the patient with the resident. I agree with the resident's medical decision making as documented in the resident's note. 6wk s/p MMA for severe DIONNE. Swelling is minimal. Occlusion with the dentures in is slightly altered as expected. Patient hasn't been wearing upper denture or lower RPD. Lower RPD doesn't seat, presumably because of teeth shifting from not wearing prosthesis. There is normal scarring in the maxillary vestibule, but this makes it uncomfortable for her to seat the denture. Discussed with her the need to massage this area and denture should seat very uneventfully. Will try to get PSG scheduled at her local sleep physician. Rikki Rodrigues DMD, MD Normal [employer] Telephone Encounteron 2022 Pct Authentication Interface Message Text PT calling in stating she will be sending new FMLA forms via fax tomorrow due to the library being closed today. PT states Dr. Rodrigues has to fill that paperwork out just like he did for [employer]. PT states the company she works for switched [employer]. Please call PT if any questions. PT was just seen on 08/30/22 Normal [facility] [employer] FREE T4on 09-02-2022 Free T4 [Mass/Vol] 1.01 ng/dL Normal 0.76-1.46 [facility] Comment on above: Performed By: #### F T4 #### [facility] [address] [place] [address] Dr. Stephanie Gibbs TSHon 09-02-2022 TSH 0.745 uIU/mL Normal 0.358-3.74 0 [facility] Comment on above: Performed By: #### T SH #### [facility] [address] [place] [address] Dr. Stephanie Gibbs Telephone Encounteron 2022 Pct Authentication Interface Message Text PT calling in stating she had new FMLA forms to be faxed to Dr. Rodrigues. PT stated her job was going through [employer] and now is going through [email or web address]. saw PT for surgery on 07/14. PT had a televisit follow up on 07/23, but has cancelled every other follow up on 08/02 , 08/13 AND 08/30. PT stated Dr. Rodrigues had her off work since 07/14/22-08/30/2022. Please see media relations specialist- dates are different Please reach out to PT to discuss and when forms are ready to be filled out [phone] Normal [facility] [employer] Patient Instructionson 08-30 Pct Authentication Interface Message Text With clean hands massage gums under your upper lip daily at night time No food restrictions Follow up with your dentist We will contact your Sleep Center in [place] to have a Sleep Study completed in 1.5 months. Normal [employer] Progress Noteson 08-30-2022 Pct Authentication Interface Message Text ORAL SURGERY CLINIC FOLLOW UP VISIT Chief Complaint: Pt presents for follow up. History of present illness: 47 yrs old White female with pmhx significant for DIONNE and excessive daytime sleepiness who is 6 weeks s/p MMA for the treatment of DIONNE. Patient presents for a follow up. Patient endorses no noticeable change in her airway or sleep. Patient also endorses numbness on the left mid face, and her jaw feels off Review of Systems: no change Physical findings: Incisions are fully epithelialized Sutures: no longer present No purulence or erythema noted No signs or symptoms of infection Palpable scar tissue on the maxillary vestibule CNV1, V2, VII intact b/l V2 hypoesthesia on the left > right Able to distinguish soft and sharp b/l Occlusion stable and reproducible With dentures in place: Dentures do not seat fully. Slight denture clasp tightness with lower partial denture Post operative CBCT 08/30/22 Pre-operative volumetric airway analysis 07/02/22 Post operative volumetric airway analysis 08/30/22 Assessment / Diagnosis: 47 yrs old White female with pmhx significant for DIONNE and excessive daytime sleepiness who is 6 weeks s/p MMA for the treatment of DIONNE. Patient is healing appropriately. CBCT evaluation shows increased volumetric airway post MMA. Presents with CNV2 hyposthesia on the left side more than the right that may improve with time. Patient's condition is appropriate for post operative state. Plan: -Patient instructed to wear denture daily and massage scar tissue along gum line under upper lips nightly. -Complete sleep study with Dr. Mcmanus in [place], [place] in 1.5 months -Follow up with patient's general dentist, Sinan Jones DDS for denture adjustment Follow-Up: After new sleep study Follow up sooner with new or worsening symptoms. Sinan Jones DDS [facility] [address] [place] [address] Wiley Mcmanus MD Formerly Named [facility] [address] [place], [place] [id number] Seferino Vaz DMD [facility] Resident Normal [employer] Cult,Urineon 08-14-2022 Cult,Urine Specimen Description .CLEAN CATCH URINE Culture ENTEROBACTER CLOACAE COMPLEX 50 to 100,000 CFU/ML Report Status FINAL 08/14/2022 SUSCEPTIBILITY Organism ENCLCX Method JENNIFER Aztreonam <=1 SUSCEPTIBLE Ceftriaxone <=1 SUSCEPTIBLE Ciprofloxacin <=0.25 SUSCEPTIBLE Gentamicin <=1 SUSCEPTIBLE Nitrofurantoin 32 SUSCEPTIBLE Tobramycin <=1 SUSCEPTIBLE Trimethoprim/Sulfa <=20 SUSCEPTIBLE Piperacillin/Tazobactam <=4 SUSCEPTIBLE Susceptible [facility] Comment on above: Performed By: #### U RC #### [facility] [address] [place], [place] [id number] Estate Planning Paralegal: Taiwo Wray MD [facility] [address] [place] [address] Estate Planning Paralegal: Wiley Wheatley MD Urinalysis w/ Microon 2021 Bacteria 2+ Abnormal NONE [facility] Comment on above: Performed By: #### U AMIC #### [facility] [address] [place], [place] [id number] Estate Planning Paralegal: Wiley Wheatley MD Bilirubin, SemiQt,Ur Negative Normal NEG [facility] Comment on above: Performed By: #### U AMIC #### [facility] [address] [place] [address] Estate Planning Paralegal: Wiley Wheatley MD Blood, Urine 1+ Abnormal NEG [facility] Comment on above: Performed By: #### U AMIC #### [facility] [address] [place] [address] Estate Planning Paralegal: Wiley Wheatley MD Clarity (U) Cloudy Abnormal CLEAR [facility] Comment on above: Performed By: #### U AMIC #### [facility] [address] [place] [address] Estate Planning Paralegal: Wiley Wheatley MD Color (U) Yellow Normal YEL [facility] Comment on above: Performed By: #### U AMIC #### [facility] [address] [place], [place] [id number] Estate Planning Paralegal: Wiley Wheatley MD Epithelial cells LM Ql (Urine sed) 0 TO 2 Normal 0-25 [facility] Comment on above: Performed By: #### U AMIC #### [facility] [address] [place], [place] [id number] Estate Planning Paralegal: Wiley Wheatley MD Glucose Ql (U) Negative Normal NEG [facility] Comment on above: Performed By: #### U AMIC #### [facility] [address] [place], [place] [phone] Estate Planning Paralegal: Wiley Wheatley MD Ketones Ql (U) Negative Normal NEG [facility] Comment on above: Performed By: #### U AMIC #### [facility] [address] [place] [address] [place], [place] [id number] Estate Planning Paralegal: Wiley Wheatley MD Leukocyte esterase Test strip Ql (U) SMALL Abnormal NEG [facility] Comment on above: Performed By: #### U AMIC #### [facility] [address] [place] [address] [place], [place] [phone] Estate Planning Paralegal: Wiley Wheatley MD Nitrite,Ur Negative Normal NEG [facility] Comment on above: Performed By: #### U AMIC #### [facility] [address] [place] [address] [place], [place] [address] Estate Planning Paralegal: Wiley Wheatley MD PH,Ur 6.5 Normal 5.0-9.0 [facility] Comment on above: Performed By: #### U AMIC #### [facility] [address] [place] [address] [place] [place], [place] [id number] Estate Planning Paralegal: Wiley Wheatley MD Protein Ql (U) 1+ Abnormal NEG [facility] Comment on above: Performed By: #### U AMIC #### [facility] [address] [place] [address] [place] [address] Estate Planning Paralegal: Wiley Wheatley MD Spec. [place],Ur >1.030 High 1.010-1.02 0 [facility] Comment on above: Performed By: #### U AMIC #### [facility] [address] [place] [address] Estate Planning Paralegal: Wiley Wheatley MD Urine RBC's 0 TO 2 Normal 0-2 [facility] Comment on above: Performed By: #### U AMIC #### [facility] [address] [place] [address] Estate Planning Paralegal: Wiley Wheatley MD Urine WBC's 50 TO 100 Normal 0-5 [facility] Comment on above: Performed By: #### U AMIC #### [facility] [address] [place] [address] Estate Planning Paralegal: Wiley Wheatley MD Urobilinogen,Ur Normal Normal NORM [facility] Comment on above: Performed By: #### U AMIC #### [facility] [address] [place] [address] Estate Planning Paralegal: Wiley Wheatley MD Urinalysis with Microscopico n 08-12-2022 Bacteria, UA 2+ Abnormal None [facility] Bilirubin Urine Negative NEGATIVE [facility] Color, UA Yellow Yellow [facility] Epithelial Cells UA 0 TO 2 [facility] Glucose, Ur Negative NEGATIVE [facility] Interpretation and review of laboratory results Abnormal [facility] Ketones Ql (U) Negative NEGATIVE [facility] Leukocyte esterase Test strip Ql (U) SMALL Abnormal NEGATIVE [facility] Nitrite, Urine Negative NEGATIVE [facility] pH, UA 6.5 5.0 - 9.0 [facility] Protein, UA 1+ Abnormal NEGATIVE [facility] RBC, UA 0 TO 2 [facility] Specific [place], UA High 1.010 - 1.020 [facility] Turbidity UA Cloudy Abnormal Clear [facility] Urine Hgb 1+ Abnormal NEGATIVE [facility] [employer] Urobilinogen, Urine Normal Normal [facility] [employer] WBC, UA 50 TO 100 [facility] [employer] Telephone Encounteron 2021 Pct Authentication Interface Message Text Called the patient twice this week to remind her regarding the follow up this Tuesday (08/13/22) and to offer to follow up sooner if she prefers. Patient did not answer. Message was left. Also attempted to call the alternative work number listed. Was unable to reach the patient at this number. Feliz Villegas DDS, [facility]- PGY4 [phone] Normal [employer] Telephone Encounteron 2021 Pct Authentication Interface Message Text Called pt. No answer. LVM with callback instructions. Per Dr. Rodrigues, we will not write any work excuse notes or prescribe any pain meds until pt is seen in person for follow up. Oliver Rogers, DMD Normal [employer] Pct Authentication Interface Message Text Pt called because she is unable to make it to her appt today due to being on pain meds and not having someone to drive her the hour and a half it takes to get here so she had to reschedule for a latter date. Pt would like to know if she can get a note excusing her from work until she comes back in to see us as she states that she still has pain and swelling currently and doesn't feel that she is ready to go back quite yet. Pt would like that letter send to her email if possible. Let her know that we may not be able to send that through her email due to possible HIPPA regulations and she would like us to contact her to discuss other options if that is the case. Email: [email or web address] Contact pt @[phone] for questions/concerns Normal [facility] [employer] Telephone Encounteron 2021 Pct Authentication Interface Message Text Patient called in requesting to reschedule her f/u appointment with Dr. Rodrigues 07/30. Patient states her daughter came home from school today with a fever and she needs to take care of her daughter. Dr. Rodrigues is booking out past August for a f/u appointment. Is there any way she can be seen sooner? Patient also requests a return to work letter so she can start work on 08/04 as planned. Please call the patient to advise at [phone]. Thank you! Normal [employer] Telephone Encounteron 2021 Pct Authentication Interface Message Text Spoke with patient and instructed her to come in earlier Tuesday afternoon, preferably between 1:00 and 2:00 pm. Also reminded her to bring dentures with her as we would like to assess her occlusion with dentures in place. Patient voiced understanding and agreed to arrive early for her appointment on Tuesday. Mikal Rodgers DMD bandage maker, PGY-3 Team Pager: [phone] Normal [facility] [employer] [facility] Telephone Encounteron 2021 Pct Authentication Interface Message Text Patient called stating she needs a back to work slip. Requested a call back [phone]. Thank you! 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 Patient is 1 weeks s/p MMA. She states that she is still very swollen and is having difficulty eating due to the swelling. Her pain is appropriately controlled. She is adherent with liquid diet. She has not had maxillary denture in place due to swelling and discomfort. Review of Systems: no change Physical findings: Pain appropriately controlled Patient has been hemostatic Compliant with liquid diet Reported paresthesia in the distribution of V1 and V2 Assessment / Diagnosis: Normal postoperative course. Healing as expected. 47 year old female 1 week s/p MMA for treatment of DIONNE. She is recovering appropriately for time postoperative. Patient now requires in person follow up appointment for postoperative evaluation. Plan: Follow-Up: Monday 07/[address] Rodrigues Follow up sooner with new or worsening symptoms. Mikal Rodgers DMD bandage maker, PGY-3 Team Pager: [phone] Normal [facility] [employer] Progress Noteson 07-19-2022 Pct Authentication Interface Message Text Initial pre-surgical workup photos: Normal [facility] [employer] [facility] BASIC METABOLIC PANELon 11-2 Anion gap [Moles/Vol] 13 mmol/L Normal 10-20 [employer] [facility] Comment on above: Performed By: #### M GMILO CH8 #### [facility] [address] [place], [place], Calcium [Mass/Vol] 7.9 mg/dL Low 8.4-10.4 [facility] Comment on above: Performed By: #### MILO Mattson CH8 #### [facility] [address] [place], [place], Chloride [Moles/Vol] 105 mmol/L Normal 97-111 [facility] Comment on above: Performed By: #### MILO Mattson CH8 #### [facility] [address] [place], [place], CO2 [Moles/Vol] 30 mmol/L Normal 21-30 [facility] Comment on above: Performed By: #### MILO Mattson CH8 #### [facility] [address] [place], [place], Creatinine [Mass/Vol] 0.84 mg/dL Normal 0.50-1.10 [facility] [employer] [facility] Comment on above: Performed By: #### MILO Mattson CH8 #### [facility] [address], [place], ESTIMATED GFR (CKD-EPI) 86 mL/min/1.73sqm Normal >=60 [facility] Comment on above: Result Comment: 2020 CKD EPI Equation using Creatinine without Race Comment: Estimated glomerular filtration rate (eGFR) is calculated without a race coefficient. Values should be interpreted in the context of the patient's full clinical presentation. Reference: 1. Len C, Mandie M, Hank CALIXTO, et al.. A Unifying Approach for GFR Estimation: Recommendations of the NKF-ASN Task Force on Reassessing the Inclusion of Race in Diagnosing Kidney Disease. Citizen Of [place] Journal of Kidney Diseases 2021;79(2):268-88.e1. 2. N Engl J Med 1 Vol. 385 Issue 19 Pages 6252-4352 Performed By: #### MILO Mattson CH8 #### [facility] [address] [place], [place], Glucose [Mass/Vol] 85 mg/dL Normal 68-110 [facility] Comment on above: Performed By: #### MILO Mattson, CH8 #### [facility] [address] [place], [place], Potassium [Moles/Vol] 3.7 mmol/L Normal 3.3-5.3 [facility] Comment on above: Performed By: #### MILO Mattson, CH8 #### [facility] [address] [place], [place], Sodium [Moles/Vol] 144 mmol/L Normal 135-148 [facility] Comment on above: Performed By: #### MILO Mattson, CH8 #### [facility] [address] [place], [place], Urea nitrogen [Mass/Vol] 10 mg/dL Normal 8-22 [facility] Comment on above: Performed By: #### MILO Mattson, CH8 #### [facility] [address], [place], Basic metabolic 2000 panelon 07-17-2022 Anion gap [Moles/Vol] 13 mmol/L 10 - 20 [facility] Calcium [Mass/Vol] 7.9 mg/dL Low 8.4 - 10. 4 mg/dL [facility] Chloride [Moles/Vol] 105 mmol/L 97 - 111 mmol/L [facility] CO2 [Moles/Vol] 30 mmol/L 21 - 30 mmol/L [facility] Creatinine [Mass/Vol] 0.84 mg/dL 0.50 - 1.10 mg/dL [facility] GFR/1.73 sq M.predicted MDRD (S/P/Bld) [Vol rate/Area] 86 mL/min/{1.73_m2} - PINF [facility] Comment on above: 2020 CKD EPI Equatio n using Creatinine without Race Comment: Estimated glomerular filtration rate (eGFR) is calculated without a race coefficient. Values should be interpreted in the context of the patient's full clinical presentation. Reference: 1. Len Acevedo, Mandie M, Hank CALIXTO, et al.. A Unifying Approach for GFR Estimation: Recommendations of the NKF-ASN Task Force on Reassessing the Inclusion of Race in Diagnosing Kidney Disease. Citizen Of [place] Journal of Kidney Diseases 2021;79(2):268-88.e1. 2. N Engl J Med 2020 Vol. 385 Issue 19 Pages 2176-3233 Glucose [Mass/Vol] 85 mg/dL 68 - 110 mg/dL [facility] Potassium [Moles/Vol] 3.7 mmol/L 3.3 - 5.3 mmol/L [facility] Sodium [Moles/Vol] 144 mmol/L 135 - 148 mmol/L [facility] Urea nitrogen [Mass/Vol] 10 mg/dL 8 - 22 mg/dL [facility] CBC panel Auto (Bld)on 07-17 Erythrocyte distribution width (RBC) [Ratio] 13.7 % 11.5 - 14.5 % [facility] Hematocrit (Bld) [Volume fraction] 32.8 % Low 36.0 - 46.0 % [facility] Hemoglobin (Bld) [Mass/Vol] 10.8 g/dL Low 12.0 - 15.0 g/dL [facility] Interpretation and review of laboratory results Abnormal [facility] MCH (RBC) [Entitic mass] 32.5 pg 26.0 - 34.0 pg [facility] MCHC (RBC) [Mass/Vol] 32.9 g/dL 32.0 - 35.9 g/dL [facility] MCV (RBC) [Entitic vol] 99 fL 80 - 100 fL [facility] Platelet mean volume (Bld) [Entitic vol] 8.0 fL 7.5 - 11.2 fL [facility] Plate[facility] (Bld) [#/Vol] 214 10*3/uL 150 - 400 K/uL [facility] RBC (Bld) [#/Vol] 3.33 10*6/uL Low [facility] WBC (Bld) [#/Vol] 8.7 10*3/uL 4.5 - 11.5 K/uL [facility] COMPLETE BLOOD COUNTon 07-17 Erythrocyte distribution width (RBC) [Ratio] 13.7 % Normal 11.5-14.5 [facility] Comment on above: Performed By: #### M MILO Alan CH8 #### [facility] [address] [place] [address], [id number] Hematocrit (Bld) [Volume fraction] 32.8 % Low 36.0-46.0 [facility] Comment on above: Performed By: #### MILO Mattson CH8 #### [facility] [address] [place] [address], Hemoglobin (Bld) [Mass/Vol] 10.8 g/dL Low 12.0-15.0 [facility] Comment on above: Performed By: #### MILO Mattson CH8 #### [facility] [address] [place] [address], MCH (RBC) [Entitic mass] 32.5 pg Normal 26.0-34.0 [facility] Comment on above: Performed By: #### MILO Mattson CH8 #### [facility] [address] [place] [address], MCHC (RBC) [Mass/Vol] 32.9 g/dL Normal 32.0-35.9 [facility] Comment on above: Performed By: #### MILO Mattson CH8 #### [facility] [address] [place] [address], MCV (RBC) [Entitic vol] 99 fL Normal 80-100 [facility] Comment on above: Performed By: ###MILO Sierra CH8 #### [facility] [address] [place] [address], Platelet mean volume (Bld) [Entitic vol] 8.0 fL Normal 7.5-11.2 [facility] Comment on above: Performed By: ###MILO Sierra CH8 #### [facility] [address] [place] [address], Platelets (Bld) [#/Vol] 214 10*3/uL Normal 150-400 [facility] Comment on above: Performed By: ###MILO Sierra CH8 #### [facility] [address] [place] [address], RBC (Bld) [#/Vol] 3.33 10*6/uL Low 4.00-5.20 [facility] Comment on above: Performed By: ###MILO Sierra CH8 #### [facility] [address] [place], [place], WBC (Bld) [#/Vol] 8.7 10*3/uL Normal 4.5-11.5 [facility] [employer] [facility] Comment on above: Performed By: #### MILO Mattson CH8 #### [facility] [address] [place], [place], Care Plan Noteon 07-17-2022 Pct Authentication Interface Message Text Problem: Discharge Planning: Goal: Discharge needs of the adult patient will be met 07/17/2022 1233 by Penny Brown RN Outcome: Completed 07/17/2022 0743 by Penny Brown, CALISTA Outcome: Progressing Discharge instructions provided to patient with paper scripts and tylenol MEDS to beds. No questions about instructions or medications at this time. IV removed and intact upon removal. Additional home care supplies provided. Patient discharged home with family member. Normal [facility] [employer] [facility] Pct Authentication Interface Message Text Problem: Routine Care: Goal: Patient care will be managed and maintained throughout hospital stay per unit specific routine care procedure Outcome: Progressing Purposeful rounding and assessment done per protocol. Problem: Acute Pain: Goal: Ability to identify pain intensity on a pain scale and rate it consistently will be achieved and maintained Outcome: Progressing Scheduled and PRN medication provided per orders Problem: Alteration in Respiratory Status: Goal: Achieve Optimal Respiratory Status with Minimal Ventilatory/Oxygen Support Outcome: Progressing Problem: Impaired Skin Integrity: Goal: Acheive wound healing without signs and symptoms of infection Outcome: Progressing Problem: Risk for Infection: Goal: Risk for infection will be reduced Outcome: Progressing Problem: Altered Nutrition: Goal: Achieve developmentally appropriate nutritional intake as clinically indicated Outcome: Progressing Full liquid diet Problem: VTE Prophylaxis: Goal: Will be free of DVT Outcome: Progressing Problem: Safety: Goal: Patient will remain free of falls during hospital stay Outcome: Progressing Call light within reach. Problem: Discharge Planning: Goal: Discharge needs of the adult patient will be met Outcome: Progressing Normal [facility] [employer] [facility] GLUCOSE, FINGERSTICK-IN OFFI CEon 07-17-2022 Glucose [Mass/Vol] 81 mg/dL Normal 68-110 [facility] [employer] [facility] Comment on above: Performed By: #### 8 [id number] ####NURSING GLUCOSE [id number] [place], [address] Glucose [Mass/Vol] 81 mg/dL 68 - 110 [facility]ation and review of laboratory results Normal [facility] Glucose [Mass/Vol] 93 mg/dL Normal 68-110 [facility] Comment on above: Performed By: #### MILO Mattson CH8 #### [facility] [address] [place], [place], Glucose [Mass/Vol] 93 mg/dL 68 - 110 [facility] review of laboratory results Normal [facility] MAGNESIUMon 07-17-2022 Magnesium [Mass/Vol] 1.8 mg/dL Normal 1.6-2.8 [facility] Comment on above: Performed By: #### MILO Mattson CH8 #### [facility] [address] [place], [place], Interpretation and review of laboratory results Normal [facility] Magnesium [Mass/Vol] 1.8 mg/dL 1.6 - 2.8 mg/dL [facility] No Panel Informationon 07-17 Interpretation and review of laboratory results Abnormal [facility] PHOSPHORUSon 07-17-2022 Phosphate [Mass/Vol] 2.4 mg/dL Low 2.5-4.8 [facility] Comment on above: Performed By: #### MILO Mattson CH8 #### [facility] [address] [place], [place], Phosphate [Mass/Vol] 2.4 mg/dL Low 2.5 - 4.8 mg/dL [facility] Progress Noteson 07-17-2022 Pct Authentication Interface Message Text Patient refused: Ditropan, and Hs Fingerstick. Normal [facility] BASIC METABOLIC PANELon 06-23 Anion gap [Moles/Vol] 14 mmol/L Normal 10-20 [facility] Comment on above: Performed By: #### MILO Mattson CH8 #### [facility] [address] [place], [place], Calcium [Mass/Vol] 8.0 mg/dL Low 8.4-10.4 [facility] Comment on above: Performed By: #### MILO Mattson CH8 #### [facility] [address] [place], [place], Chloride [Moles/Vol] 103 mmol/L Normal 97-111 [facility] Comment on above: Performed By: #### MILO Mattson CH8 #### [facility] [address] [place], [place], CO2 [Moles/Vol] 31 mmol/L High 21-30 [facility] Comment on above: Performed By: #### MILO Mattson CH8 #### [facility] [address] [place], [place], Creatinine [Mass/Vol] 0.79 mg/dL Normal 0.50-1.10 [facility] Comment on above: Performed By: #### MILO Mattson CH8 #### [facility] [address] [place], [place], ESTIMATED GFR (CKD-EPI) 93 mL/min/1.73sqm Normal >=60 [facility] Comment on above: Result Comment: 2020 CKD EPI Equation using Creatinine without Race Comment: Estimated glomerular filtration rate (eGFR) is calculated without a race coefficient. Values should be interpreted in the context of the patient's full clinical presentation. Reference: 1. Len C, Mandie M, Hank CALIXTO, et al.. A Unifying Approach for GFR Estimation: Recommendations of the NKF-ASN Task Force on Reassessing the Inclusion of Race in Diagnosing Kidney Disease. Citizen Of [place] Journal of Kidney Diseases 2021;79(2):268-88.e1. 2. N Engl J Med 2020 Vol. 385 Issue 19 Pages 6511-8116 Performed By: #### MILO Mattson CH8 #### [facility] [address] [place], [place], Glucose [Mass/Vol] 96 mg/dL Normal 68-110 [facility] Comment on above: Performed By: #### MILO Mattson CH8 #### [facility] [address] [place], [place], Potassium [Moles/Vol] 4.0 mmol/L Normal 3.3-5.3 [facility] Comment on above: Performed By: #### Mariam MILO Alan CH8 #### [facility] [address] [place] [address], Sodium [Moles/Vol] 144 mmol/L Normal 135-148 [facility] Comment on above: Performed By: #### MILO Mattson CH8 #### [facility] [address] [place] [address], Urea nitrogen [Mass/Vol] 16 mg/dL Normal 8-22 [facility] Comment on above: Performed By: #### MILO Mattson CH8 #### [facility] [address] [place] [address], Basic metabolic 2000 panelon 07-16-2022 Anion gap [Moles/Vol] 14 mmol/L 10 - 20 [facility] Calcium [Mass/Vol] 8.0 mg/dL Low 8.4 - 10. 4 mg/dL [facility] Chloride [Moles/Vol] 103 mmol/L 97 - 111 mmol/L [facility] CO2 [Moles/Vol] 31 mmol/L High 21 - 30 mmol/L [facility] Creatinine [Mass/Vol] 0.79 mg/dL 0.50 - 1.10 mg/dL [facility] GFR/1.73 sq M.predicted MDRD (S/P/Bld) [Vol rate/Area] 93 mL/min/{1.73_m2} - PINF [facility] Comment on above: 2020 CKD EPI Equatio n using Creatinine without Race Comment: Estimated glomerular filtration rate (eGFR) is calculated without a race coefficient. Values should be interpreted in the context of the patient's full clinical presentation. Reference: 1. Len C, Mandie M, Hank DC, et al.. A Unifying Approach for GFR Estimation: Recommendations of the NKF-ASN Task Force on Reassessing the Inclusion of Race in Diagnosing Kidney Disease. Citizen Of [place] Journal of Kidney Diseases 202;79(2):268-88.e1. 2. N Engl J Med 2020 Vol. 385 Issue 19 Pages 1598-8590 Glucose [Mass/Vol] 96 mg/dL 68 - 110 mg/dL [facility] Potassium [Moles/Vol] 4.0 mmol/L 3.3 - 5.3 mmol/L [facility] Sodium [Moles/Vol] 144 mmol/L 135 - 148 mmol/L [facility] Urea nitrogen [Mass/Vol] 16 mg/dL 8 - 22 mg/dL [facility] CBC panel Auto (Bld)on 07-16 Erythrocyte distribution width (RBC) [Ratio] 13.5 % 11.5 - 14.5 % [facility] Hematocrit (Bld) [Volume fraction] 32.8 % Low 36.0 - 46.0 % [facility] Hemoglobin (Bld) [Mass/Vol] 10.9 g/dL Low 12.0 - 15.0 g/dL [facility] Interpretation and review of laboratory results Abnormal [facility] MCH (RBC) [Entitic mass] 32.7 pg 26.0 - 34.0 pg [facility] MCHC (RBC) [Mass/Vol] 33.2 g/dL 32.0 - 35.9 g/dL [facility] MCV (RBC) [Entitic vol] 98 fL 80 - 100 fL [facility] Platelet mean volume (Bld) [Entitic vol] 9.0 fL 7.5 - 11.2 fL [facility] Platelets (Bld) [#/Vol] 217 10*3/uL 150 - 400 K/uL [facility] RBC (Bld) [#/Vol] 3.33 10*6/uL [facility] WBC (Bld[facility] [#/Vol] 16.3 10*3/uL High 4.5 - 11.5 K/uL [facility] COMPLETE BLOOD COUNTon 07-16 Erythrocyte distribution width (RBC) [Ratio] 13.5 % Normal 11.5-14.5 [facility] Comment on above: Performed By: #### C BC ####S PATHOLOGY [id number] [place], [place], Hematocrit (Bld) [Volume fraction] 32.8 % Low 36.0-46.0 [facility] Comment on above: Performed By: #### C BC ####S PATHOLOGY [id number] [place], [place], Hemoglobin (Bld) [Mass/Vol] 10.9 g/dL Low 12.0-15.0 [facility] Comment on above: Performed By: #### C BC ####[facility]Y [id number] [place], [place], MCH (RBC) [Entitic mass] 32.7 pg Normal 26.0-34.0 [facility] Comment on above: Performed By: #### C BC ####[facility] PATHOLOGY [id number] [place], [place], MCHC (RBC) [Mass/Vol] 33.2 g/dL Normal 32.0-35.9 [facility] Comment on above: Performed By: #### C BC ####[facility] PATHOLOGY [id number] [place], [place], MCV (RBC) [Entitic vol] 98 fL Normal 80-100 [facility] Comment on above: Performed By: #### C BC ####[facility] PATHOLOGY [id number] [place], [place], Platelet mean volume (Bld) [Entitic vol] 9.0 fL Normal 7.5-11.2 [facility] Comment on above: Performed By: #### C BC ####[facility] PATHOLOGY [id number] [place], [place], Platelets (Bld) [#/Vol] 217 10*3/uL Normal 150-400 [facility] Comment on above: Performed By: #### C BC ####[facility] PATHOLOGY [id number] [place], [place], RBC (Bld) [#/Vol] 3.33 10*6/uL Low 4.00-5.20 [facility] Comment on above: Performed By: #### C BC ####[facility] PATHOLOGY [id number] [place], [place], WBC (Bld) [#/Vol] 16.3 10*3/uL High 4.5-11.5 [facility] Comment on above: Performed By: #### C BC ####S PATHOLOGY [id number] [place], [place], GLUCOSE, FINGERSTICK-IN OFFI CEon 07-16-2022 Glucose [Mass/Vol] 89 mg/dL Normal 68-110 [facility] Comment on above: Performed By: #### MILO Mattson CH8 #### [facility] [address] [place] [address], Glucose [Mass/Vol] 89 mg/dL 68 - 110 mg/dL [facility] Interpretation and review of laboratory results Normal [facility] Glucose [Mass/Vol] 160 mg/dL High 68-110 [facility] Comment on above: Result Comment: Ricky lund RN, APN, MD Performed By: #### MILO Mattson CH8 #### [facility] [address] [place] [address], Glucose [Mass/Vol] 160 mg/dL High 68 - 110 mg/dL [facility] Comment on above: Notified CALISTA MORSE MD Interpretation and review of laboratory results Abnormal [facility] Glucose [Mass/Vol] 136 mg/dL High 68-110 [facility] Comment on above: Result Comment: Ricky lund RN, APN, MD Performed By: #### MILO Mattson CH8 #### [facility] [address] [place] [address], Glucose [Mass/Vol] 136 mg/dL High 68 - 110 mg/dL [facility] Comment on above: Notified CALISTA MORSE MD Interpretation and review of laboratory results Abnormal [facility] MAGNESIUMon 07-16-2022 Magnesium [Mass/Vol] 2.0 mg/dL Normal 1.6-2.8 [facility] Comment on above: Performed By: #### MILO Mattson CH8 #### [facility] [address] [place] [address], Interpretation and review of laboratory results Normal [facility] Magnesium [Mass/Vol] 2.0 mg/dL 1.6 - 2.8 mg/dL [facility] No Panel Informationon 07-16 Interpretation and review of laboratory results Abnormal [facility] PHOSPHORUSon 07-16-2022 Phosphate [Mass/Vol] 2.1 mg/dL Low 2.5-4.8 [facility] Comment on above: Performed By: #### M MILO Alan, CH8 #### [facility] [address] [place], [id number] Phosphate [Mass/Vol] 2.1 mg/dL Low 2.5 - 4.8 mg/dL [facility] Progress Noteson 07-16-2022 Pct Authentication Interface Message Text -- GENERAL INFORMATION - SURGICAL ICU - STAFF NOTE Patient seen and examined on 07/16/2022 Patient Name: Isabelle Hewitt Admission Date: 07/14/2022 INTERVAL HISTORY/EVENTS Background: Ms Hewitt is a 47 year old woman with a history of hypothyroidism, HTN, HLD, bipolar disorder, DIONNE (recent pharyngoplasty 03/12) admitted following maxillo-mandibular advancement 07/14/22. Hospital Course: 07/14/2022: She was extubated in PACU and transferred to surgical stepdown 07/14/22 for airway watch. Respiratory status has been good with NRB mask. 24 Hour Events: Tolerating liquids although mouth is painful. Tolerating her facial pain. No dyspnea. Seen by OMFS, feel pt is ok for floor. -------- PHYSICAL EXAM -------- Vital Signs: Vital sign ranges over the past 24 hours (retrieved 07/16/2022 at 10:21 AM): Tmax (24 hours): 97.7 ???F (36.5 ???C) Pulse Av.6 Min: 59 Max: 73 Systolic (24hrs), Av , Min:82 , Max:101 Diastolic (24hrs), Av, Min:48, Max:75 MAP (mmHg) Av.9 mmHg Min: 59 mmHg Max: 81 mmHg Resp Av.5 Min: 9 Max: 21 SpO2 Av.5 % Min: 88 % Max: 99 % 24 Hour Input/Output In: 1262.5 (14 mL/kg) [P.O.:750; I.V.:512.5 (0.2 mL/kg/hr)] Out: 1375 (15.3 mL/kg) [Urine:1375 (0.6 mL/kg/hr)] Net: -112.5 Weight: 90 kg Current Medications: Current Facility-Administered Medications: potassium phosphate 15 mmol injection in D5W, 15 mmol, Intravenous, One Time Dose, Oliver Rogers DMD dextrose 5 % and NaCl 0.45 % iv infusion, , Intravenous, Continuous, Oliver Rogers DMD, Last Rate: 75 mL/hr at 07/16/22 1000, New Bag at 07/16/22 1000 enoxaparin (LOVENOX) 40 MG/0.4ML injection 40 mg, 40 mg, Subcutaneous, Daily, Edita Meyer MD, 40 mg at 07/16/22 0811 acetaminophen (TYLENOL) 650 MG/20.3ML oral solution SF, 650 mg, Oral, Every 4 hours, Edita Meyer MD, 650 mg at 07/16/22 0811 OLANZapine (ZyPREXA ZYDIS) disintegrating tablet, 10 mg, Oral, At Bedtime, Edita Meyer MD, 10 mg at 07/15/22 2124 oxyCODONE (ROXICODONE) 5 mg/5 mL oral solution, 5 mg, Oral, Q4H PRN, Edita Meyer MD oxyCODONE (ROXICODONE) 5 mg/5 mL oral solution, 10 mg, Oral, Q4H PRN, Edita Meyer MD insulin lispro (HumaLOG) 100 UNIT/ML injection, 2-9 Units, Subcutaneous, 3x Daily AC, Edita Meyer MD, 2 Units at 07/15/22 1704 ampicillin-sulbactam (Unasyn) 3000 mg in NS 100 mL ivpb, 3,000 mg, Intravenous, Q6H Antibiotic, [place], [place], DDS, Last Rate: 200 mL/hr at 07/16/22 0959, 3,000 mg at 07/16/22 0959 atorvastatin (LIPITOR) tablet, 20 mg, Oral, Daily, Oliver Rogers, DMD, 20 mg at 07/16/22 08 clonazePAM (KlonoPIN) tablet, 1 mg, Oral, Q12H PRN, Oliver Rogers, DMD levothyroxine (SYNTHROID) tablet, 50 mcg, Oral, Before Breakfast, Oliver Rogers, DMD, 50 mcg at 07/16/22 06 metformin (GLUCOPHAGE) tablet, 500 mg, Oral, Daily, Oliver Rogers, DMD, 500 mg at 07/16/22 0812 oxybutynin (DITROPAN) 5 MG tablet, 5 mg, Oral, 3x Daily, Oliver Rogers, DMD, 5 mg at 07/16/22 0655 venlafaxine (EFFEXOR XR) 24 hour capsule, 75 mg, Oral, Daily, Sue, Oliver, DMD, 75 mg at 07/16/22 08 chlorhexidine (PERIDEX) 0.12 % oral solution, 15 mL, Swish AND Spit, 2x Daily, Oliver Rogers, DMD, 15 mL at 07/16/22 08 famotidine (PEPCID) tablet, 20 mg, Oral, 2x Daily, Oliver Rogers, DMD, 20 mg at 07/16/22 08 ibuprofen (MOTRIN) tablet, 600 mg, Oral, Q6H PRN, Oliver Rogers, DMD ondansetron (ZOFRAN) 4 MG/2ML injection, 4 mg, Intravenous Push, Q6H PRN, Oliver Rogers, DMD docusate sodium (COLACE) capsule, 100 mg, Oral, 2x Daily, Oliver Rogers, DMD, 100 mg at 07/16/22 08 bisacodyl (DULCOLAX) 5 MG enteric coated tablet, 10 mg, Oral, Daily PRN, Oliver Rogers, DMD oxymetazoline (AFRIN) 0.05 % nasal solution, 2 [place], Nasal, Q4H PRN, Oliver Rogers DMD sodium chloride (OCEAN) 0.65 % nasal spray, 1 [place], Nasal, Q1H PRN, Oliver Rogers DMD naloxone (NARCAN) 0.4 MG/ML injection, 0.4 mg, Intravenous Push, PRN, Ki Atwood MD Physical Exam: Constitutional: Pleasant adult woman in no distress. Postoperative facial edema. Cardiovascular: Regular rate and rhythm. Normal heart sounds. Pulmonary: Clear to auscultation bilaterally. No wheezing, rhonchi or rales. Abdominal: Soft. Non-distended. Non-tender. Musculoskeletal: No edema. Neurological: No focal motor deficits. Alert and oriented. LABORATORY RESULTS (LAST 24 HOURS) CBC/PT/INR WBC RBC Hgb Hct MCV RDW Plt PT aPTT INR 07/16/22400 16.3 3.33 10.9 32.8 98 13.5 217 07/15/22 0044 18.2 3.55 11.5 34.4 97 13.6 267 07/14/22 0844 12.2 37.6 Basic Metabolic Panel Na K Cl CO2 Gap Glu BUN Cr Ca Mg PO4 07/16/22400 2.0 07/16/22400 144 4.0 103 31 14 96 16 0.79 8.0 07/16/22 0401 2. (more content not included)... Normal [facility] Pct Authentication Interface Message Text Attestation signed by Rikki Rodrigues DMD, MD at 07/21/2022 8:33 AM Teaching Physician Note: I saw and evaluated the patient. I personally obtained the ulloa and critical portions of the history and physical exam. I reviewed the resident's documentation and discussed the patient with the resident. I agree with the resident's medical decision making as documented in the resident's note. Rikki Rodrigues DMD, MD SURGERY DAILY PROGRESS NOTE Isabelle Hewitt [id number] Isabelle Hewitt is a 47yo F with PMH significant for DIONNE with CPAP intolerance, anxiety, HTN, hypothyroidism, DMII who is HOD#3 POD #2 s/p maxillomandibular advancement with LeFort I and bilateral sagittal split osteotomies. Subjective/Overnight Events: No acute events Medications: Scheduled potassium phosphate 15 mmol One Time Dose enoxaparin 40 mg Daily acetaminophen 650 mg Every 4 hours OLANZapine 10 mg At Bedtime insulin lispro 2-9 Units 3x Daily AC ampicillin-sulbactam 3,000 mg Q6H Antibiotic atorvastatin 20 mg Daily levothyroxine 50 mcg Before Breakfast metformin 500 mg Daily oxybutynin 5 mg 3x Daily venlafaxine 75 mg Daily chlorhexidine 15 mL 2x Daily famotidine 20 mg 2x Daily docusate sodium 100 mg 2x Daily PRN oxyCODONE 5 mg Q4H PRN oxyCODONE 10 mg Q4H PRN clonazePAM 1 mg Q12H PRN ibuprofen 600 mg Q6H PRN ondansetron 4 mg Q6H PRN bisacodyl 10 mg Daily PRN oxymetazoline 2 [place] Q4H PRN sodium chloride 1 [place] Q1H PRN naloxone 0.4 mg PRN IV dextrose 5 % and sodium chloride 0.45 % dextrose 5 % and NaCl 0.45 % Physical Exam Vitals: 07/16/22 0800 BP: Pulse: 63 Resp: 15 Temp: 96.6 ???F (35.9 ???C) SpO2: 95% Estimated body mass index is 36.29 kg/m??? as calculated from the following: Height as of this encounter: 1.575 m (5' 2 ). Weight as of this encounter: 90 kg (198 lb 6.6 oz). CONSTITUTIONAL: AAOx3, nad, conversational EYES: sclera anicteric HEENT: No Jobst head wrap. Postoperative facial edema. Intraoral: Sutures intact, capillary refill <2 seconds. No dehiscence visualized CV: RRR, normal heart sounds RESPIRATORY: breathing comfortably with humidified face tent with supplemental oxygen ABDOMEN: soft, non-tender, not distended NEURO: CN V1 intact, V2 and V3 hypoesthesia b/l, CN VII intact b/l with weakness of the right marginal mandibular nerve branch, consistent with previous exam. EXTREMITIES: SCD's in place, moves all extremities PSYCH: appropriate mood and affect SKIN: warm and dry I AND O In: 1262.5 (14 mL/kg) [P.O.:750; I.V.:512.5 (0.2 mL/kg/hr)] Out: 1375 (15.3 mL/kg) [Urine:1375 (0.6 mL/kg/hr)] Net: -112.5 Weight: 90 kg Labs: Basic Metabolic Panel Na K Cl CO2 Gap Glu BUN Cr Ca Mg PO4 07/16/22 0401 2.0 07/16/22 0401 144 4.0 103 31 14 96 16 0.79 8.0 07/16/22 0401 2.1 07/15/22 0044 141 4.3 102 28 15 147 16 0.91 8.0 07/14/22 0844 142 3.7 CBC/PT/INR WBC RBC Hgb Hct MCV RDW Plt PT aPTT INR 07/16/22 0401 16.3 3.33 10.9 32.8 98 13.5 217 07/15/22 0044 18.2 3.55 11.5 34.4 97 13.6 267 07/14/22 0844 12.2 37.6 Assessment and Plan: Patient is a 47 year old female with PMH significant for DIONNE with CPAP intolerance, anxiety, HTN, hypothyroidism, DMII who is HOD #3 POD#2 s/p maxillomandibular advancement with LeFort I and bilateral sagittal split osteotomies. On exam this morning, pain is well controlled, pt is tolerating PO intake, urinating without difficulty, passing flatus, and ambulating appropriately. Demonstrated for pt how to use red rubber catheter for PO intake. Encouraged hydration. Pt okay to be transferred to [facility]. Neuro: - Acetaminophen 650 mg Q4H scheduled - Ibuprofen 600 mg Q6H PRN mild pain - Oxycodone 5/10 mg Q4H PRN moderate/severe pain OMFS: - Peridex mouth rinses BID Cardiac: - Lipitor 20 mg daily Resp: - O2 as needed to maintain sats >92% - Humidified face tent - [place] nasal spray Q1H PRN - Afrin nasal spray Q4H PRN GI: - Use red rubber catheter for PO intake, measure intake and output - Full liquid diet today, 07/16 - Puree diet starting tomorrow, 07/17 - Pepcid 20 mg BID - Colace 100 mg BID - Dulcolax 10 mg daily PRN - Zofran 4 mg Q6H PRN nausea : - Oxybutynin 5 mg TID ID: - IV Unasyn 3 g Q6H Endo: - Humalog 2-9 units TID - Levothyroxine 50 mcg before breakfast - Metformin 500 mg daily Psych: - Zyprexa 10 mg at bedtime - Klonopin 1 mg Q12H PRN - Effexor 75 mg daily Heme: - CBC daily - BMP daily - DVT ppx: SCDs, subcutaneous Lovenox 40mg daily Dispo: - Okay to transfer to [facility] Oliver Rogers DMD bandage maker, PGY-1 Team Pager: [phone] Normal [facility] BASIC METABOLIC PANELon 11-2 Anion gap [Moles/Vol] 15 mmol/L Normal 10-20 [facility] Comment on above: Performed By: #### MILO Mattson CH8 #### [facility] [address] [place] [address], Calcium [Mass/Vol] 8.0 mg/dL Low 8.4-10.4 [facility] Comment on above: Performed By: #### MILO Mattson CH8 #### [facility] [address] [place] [address], Chloride [Moles/Vol] 102 mmol/L Normal 97-111 [facility] Comment on above: Performed By: ###MILO Sierra CH8 #### [facility] [address] [place] [address], CO2 [Moles/Vol] 28 mmol/L Normal 21-30 [facility] Comment on above: Performed By: ###MILO Sierra CH8 #### [facility] [address] [place] [address], Creatinine [Mass/Vol] 0.91 mg/dL Normal 0.50-1.10 [facility] Comment on above: Performed By: #### MILO Mattson CH8 #### [facility] [address] [place], [place], ESTIMATED GFR (CKD-EPI) 78 mL/min/1.73sqm Normal >=60 [facility] Comment on above: Result Comment: 2020 CKD EPI Equation using Creatinine without Race Comment: Estimated glomerular filtration rate (eGFR) is calculated without a race coefficient. Values should be interpreted in the context of the patient's full clinical presentation. Reference: 1. Len C, Mandie M, Hank CALIXTO, et al.. A Unifying Approach for GFR Estimation: Recommendations of the NKF-ASN Task Force on Reassessing the Inclusion of Race in Diagnosing Kidney Disease. Citizen Of [place] Journal of Kidney Diseases 2021;79(2):268-88.e1. 2. N Engl J Med 1 Vol. 385 Issue 19 Pages 6764-6867 Performed By: ###MILO Sierra CH8 #### [facility] [address] [place], [place], Glucose [Mass/Vol] 147 mg/dL High 68-110 [facility] Comment on above: Performed By: #### MILO Mattson CH8 #### [facility] [address] [place], [place], Potassium [Moles/Vol] 4.3 mmol/L Normal 3.3-5.3 [facility] Comment on above: Performed By: ###MILO Sierra CH8 #### [facility] [address] [place] [address], Sodium [Moles/Vol] 141 mmol/L Normal 135-148 [facility] Comment on above: Performed By: ###MILO Sierra CH8 #### [facility] [address] [place], [place], Urea nitrogen [Mass/Vol] 16 mg/dL Normal 8-22 [facility] Comment on above: Performed By: #### M MILO Alan CH8 #### [facility] [address] [place], [place], Basic metabolic 2000 panelon 07-15-2022 Anion gap [Moles/Vol] 15 mmol/L 10 - 20 [facility] Calcium [Mass/Vol] 8.0 mg/dL Low 8.4 - 10. 4 mg/dL [facility] Chloride [Moles/Vol] 102 mmol/L 97 - 111 mmol/L [facility] CO2 [Moles/Vol] 28 mmol/L 21 - 30 mmol/L [facility] Creatinine [Mass/Vol] 0.91 mg/dL 0.50 - 1.10 mg/dL [facility] GFR/1.73 sq M.predicted MDRD (S/P/Bld) [Vol rate/Area] 78 mL/min/{1.73_m2} - PINF [facility] Comment on above: 2020 CKD EPI Equatio n using Creatinine without Race Comment: Estimated glomerular filtration rate (eGFR) is calculated without a race coefficient. Values should be interpreted in the context of the patient's full clinical presentation. Reference: 1. Len C, Mandie M, Hank CALIXTO, et al.. A Unifying Approach for GFR Estimation: Recommendations of the NKF-ASN Task Force on Reassessing the Inclusion of Race in Diagnosing Kidney Disease. Citizen Of [place] Journal of Kidney Diseases 202;79(2):268-88.e1. 2. N Engl J Med 2020 Vol. 385 Issue 19 Pages 7974-6285 Glucose [Mass/Vol] 147 mg/dL High 68 - 110 mg/dL [facility] Interpretation and review of laboratory results Abnormal [facility] Potassium [Moles/Vol] 4.3 mmol/L 3.3 - 5.3 mmol/L [facility] Sodium [Moles/Vol] 141 mmol/L 135 - 148 mmol/L [facility] Urea nitrogen [Mass/Vol] 16 mg/dL 8 - 22 mg/dL [facility] CBC panel Auto (Bld)on 11-24 -2022 Erythrocyte distribution width (RBC) [Ratio] 13.6 % 11.5 - 14.5 % [facility] Hematocrit (Bld) [Volume fraction] 34.4 % Low 36.0 - 46.0 % [facility] Hemoglobin (Bld) [Mass/Vol] 11.5 g/dL Low 12.0 - 15.0 g/dL [facility] Interpretation and review of laboratory results Abnormal [facility] MCH (RBC) [Entitic mass] 32.3 pg 26.0 - 34.0 pg [facility] MCHC (RBC) [Mass/Vol] 33.4 g/dL 32.0 - 35.9 g/dL [facility] MCV (RBC) [Entitic vol] 97 fL 80 - 100 fL [facility] Platelet mean volume (Bld) [Entitic vol] 8.6 fL 7.5 - 11.2 fL [facility] Platelets (Bld) [#/Vol] 267 10*3/uL 150 - 400 K/uL [facility] RBC (Bld) [#/Vol] 3.55 10*6/uL Low [facility] WBC (Bld) [#/Vol] 18.2 10*3/uL High 4.5 - 11.5 K/uL [facility] COMPLETE BLOOD COUNTon 07-15 Erythrocyte distribution width (RBC) [Ratio] 13.6 % Normal 11.5-14.5 [facility] Comment on above: Performed By: #### MILO Mattson CH8 #### [facility] [address] [place], [place], Hematocrit (Bld) [Volume fraction] 34.4 % Low 36.0-46.0 [facility] Comment on above: Performed By: #### MILO Mattson CH8 #### [facility] [address], [place], Hemoglobin (Bld) [Mass/Vol] 11.5 g/dL Low 12.0-15.0 [facility] Comment on above: Performed By: #### MILO Mattson CH8 #### [facility] [address], [place], MCH (RBC) [Entitic mass] 32.3 pg Normal 26.0-34.0 [facility] Comment on above: Performed By: #### MILO Mattson CH8 #### [facility] [address], [place], MCHC (RBC) [Mass/Vol] 33.4 g/dL Normal 32.0-35.9 [facility] Comment on above: Performed By: #### MILO Mattson CH8 #### [facility] [address], [place], MCV (RBC) [Entitic vol] 97 fL Normal 80-100 [facility] Comment on above: Performed By: #### MILO Mattson CH8 #### [facility] [address], [place], Platelet mean volume (Bld) [Entitic vol] 8.6 fL Normal 7.5-11.2 [facility] Comment on above: Performed By: #### MILO Mattson CH8 #### [facility] [address], [place], Platelets (Bld) [#/Vol] 267 10*3/uL Normal 150-400 [facility] Comment on above: Performed By: ###MILO Sierra CH8 #### [facility] [address], [place], RBC (Bld) [#/Vol] 3.55 10*6/uL Low 4.00-5.20 [facility] Comment on above: Performed By: #### MILO Mattson CH8 #### [facility] [address], [place], WBC (Bld) [#/Vol] 18.2 10*3/uL High 4.5-11.5 [facility] Comment on above: Performed By: ###MILO Sierra CH8 #### [facility] [address], [place], Care Plan Noteon 07-15-2022 Pct Authentication Interface Message Text Problem: Routine Care: Goal: Patient care will be managed and maintained throughout hospital stay per unit specific routine care procedure Outcome: Progressing Problem: Acute Pain: Goal: Ability to identify pain intensity on a pain scale and rate it consistently will be achieved and maintained Outcome: Progressing Problem: Alteration in Respiratory Status: Goal: Achieve Optimal Respiratory Status with Minimal Ventilatory/Oxygen Support Outcome: Progressing Problem: Impaired Skin Integrity: Goal: Acheive wound healing without signs and symptoms of infection Outcome: Progressing Problem: Risk for Infection: Goal: Risk for infection will be reduced Outcome: Progressing Problem: Altered Nutrition: Goal: Achieve developmentally appropriate nutritional intake as clinically indicated Outcome: Progressing Problem: VTE Prophylaxis: Goal: Will be free of DVT Outcome: Progressing Problem: Safety: Goal: Patient will remain free of falls during hospital stay Outcome: Progressing Problem: Discharge Planning: Goal: Discharge needs of the adult patient will be met Outcome: Progressing Normal [facility] Pct Authentication Interface Message Text Problem: Discharge Planning: Goal: Discharge needs of the adult patient will be met Outcome: Not Progressing Note: Patient to remain in SICU Problem: Routine Care: Goal: Patient care will be managed and maintained throughout hospital stay per unit specific routine care procedure Outcome: Progressing Note: Per SICU protocol. Problem: Acute Pain: Goal: Ability to identify pain intensity on a pain scale and rate it consistently will be achieved and maintained Outcome: Progressing Note: Patient reports pain to nurse using numeric scale Problem: Alteration in Respiratory Status: Goal: Achieve Optimal Respiratory Status with Minimal Ventilatory/Oxygen Support Outcome: Progressing Problem: Impaired Skin Integrity: Goal: Acheive wound healing without signs and symptoms of infection Outcome: Progressing Note: Labs monitored daily, temperature monitored Q4 Problem: Risk for Infection: Goal: Risk for infection will be reduced Outcome: Progressing Note: Patient vitals monitored q1hr. Patient labs monitored as per MD order. Antibiotics administered per MD order. Problem: Altered Nutrition: Goal: Achieve developmentally appropriate nutritional intake as clinically indicated Outcome: Progressing Note: Patient diet progressed to clear diet Problem: VTE Prophylaxis: Goal: Will be free of DVT Outcome: Progressing Note: SCDs maintained. Lovenox or Heparin administered per MD order. Problem: Safety: Goal: Patient will remain free of falls during hospital stay Outcome: Progressing Note: Call light within reach. Bed in lowest position and wheels locked. CR monitoring. Patient free of falls/injuries during shift. Normal [facility] GLUCOSE, FINGERSTICK-IN OFFI CEon 07-15-2022 Glucose [Mass/Vol] 155 mg/dL High 68-110 [facility] Comment on above: Result Comment: Ricky ashely CALISTA MORSE MD Performed By: #### M MILO Alan, CH8 #### [facility] [address] [place], [address] Glucose [Mass/Vol] 155 mg/dL High 68 - 110 mg/dL [facility] Comment on above: Notified CALISTA MORSE MD Interpretation and review of laboratory results Abnormal [facility] Glucose [Mass/Vol] 137 mg/dL High 68-110 [facility] Comment on above: Performed By: #### [id number] ####NURSING GLU[facility] [id number] [place], [address] Glucose [Mass/Vol] 137 mg/dL High 68 - 110 mg/dL [facility] Interpretation and review of laboratory results Abnormal [facility] Progress Noteson 07-15-2022 Pct Authentication Interface Message Text Attestation signed by Rikki Rodrigues DMD, MD at 07/21/2022 8:32 AM Teaching Physician Note: I saw and evaluated the patient. I personally obtained the ulloa and critical portions of the history and physical exam. I reviewed the resident's documentation and discussed the patient with the resident. I agree with the resident's medical decision making as documented in the resident's note. Rikki Rodrigues DMD, MD SURGERY DAILY PROGRESS NOTE Isabelle Hewitt [id number] Isabelle Hewitt is a 47yo F with a pmhx significant for DIONNE with CPAP intolerance, Anxiety, HTN, Hypothyroidism T2DM, who is HOD#2 POD #1 s/p Maxillomandibular advancement with LeFort I and Bilateral Sagittal Split Osteotomy. Subjective/Overnight Events: Medications: Scheduled [START ON 07/16/2022] enoxaparin 40 mg Daily acetaminophen 650 mg Every 4 hours OLANZapine 10 mg At Bedtime atenolol 100 mg Daily insulin lispro 2-9 Units 3x Daily AC ampicillin-sulbactam 3,000 mg Q6H Antibiotic atorvastatin 20 mg Daily levothyroxine 50 mcg Before Breakfast metformin 500 mg Daily oxybutynin 5 mg 3x Daily venlafaxine 75 mg Daily chlorhexidine 15 mL 2x Daily famotidine 20 mg 2x Daily docusate sodium 100 mg 2x Daily PRN oxyCODONE 5 mg Q4H PRN oxyCODONE 10 mg Q4H PRN clonazePAM 1 mg Q12H PRN ibuprofen 600 mg Q6H PRN ondansetron 4 mg Q6H PRN bisacodyl 10 mg Daily PRN oxymetazoline 2 [place] Q4H PRN sodium chloride 1 [place] Q1H PRN naloxone 0.4 mg PRN IV Physical Exam Vitals: 07/15/22 1000 BP: 102/65 Pulse: 77 Resp: 12 Temp: SpO2: 90% Estimated body mass index is 36.29 kg/m??? as calculated from the following: Height as of this encounter: 1.575 m (5' 2 ). Weight as of this encounter: 90 kg (198 lb 6.6 oz). CONSTITUTIONAL: nad, conversational, cooperative EYES: anicteric HEENT: Jobst head wrap in place. Postoperative facial edema. Intraoral: Sutures intact, capillary refill <2 seconds. No dehiscence visualized CV: RRR, normal heart sounds RESPIRATORY: breathing unlabored with humidified face tent with supplemental oxygen ABDOMEN: soft, non-tender, not distended NEURO: Alert and oriented. CN V1 intact, V2 and V3 hypoesthesia bilaterally, CN VII intact b/l with weakness in the distribution of the marginal mandibular nerve on the right side EXTREMITIES: SCD's in place, Negative Sergio's sign PSYCH: appropriate affect SKIN: warm and moist I AND O In: 3413.9 (37.9 mL/kg) [P.O.:120; I.V.:3293.9 (1.5 mL/kg/hr)] Out: 1535 (17.1 mL/kg) [Urine:1185 (0.5 mL/kg/hr)] Net: 1878.9 Weight: 90 kg Labs: Basic Metabolic Panel Na K Cl CO2 Gap Glu BUN Cr Ca Mg PO4 07/15/224 141 4.3 102 28 15 147 16 0.91 8.0 07/14/22 0844 142 3.7 CBC/PT/INR WBC RBC Hgb Hct MCV RDW Plt PT aPTT INR 07/15/22 0044 18.2 3.55 11.5 34.4 97 13.6 267 07/14/22 0844 12.2 37.6 Assessment and Plan: Patient is a 47 year old female with pmhx significant for DIONNE, Anxiety, HTN, T2DM Hypothyroidism, who is HOD #2 POD#1 s/p Maxillomandibular advancement with LeFort I and Bilateral Sagittal Split Osteotomy. This morning, the patient's pain is well controlled, she has been seen drinking from a cup and able to manage secretions, breathing comfortably with supplemental oxygen, able to pass gas, but has not been able to produce a bowel movement. The patient has slight weakness of the marginal mandibular nerve on the right side. Patient's condition is appropriate for post operative state. Plan: Neuro/Analgesia: -Oxycodone 5mg q4h moderate pain -Oxycodone 10mg q4h severe pain -Acetaminophen 650mg q4h -Ibuprofen 600mg q6h PRN -Zyprexa 10mg at bedtime -Klonopin 1mg q12h PRN -Zofran 4mg q6 PRN -Effexor 75mg daily OMFS -Peridex 15mL BID CV: -Atenolol 100mg daily -Lipitor 20mg daily Pulm: -Oxymetazoline 2 [place] q4h PRN -Stevens 1 [place] q1h PRN -Face Tent on humidified air GI: -Full liquid diet today 07/15 and tomorrow on 07/16 -Puree diet on 07/17 -Famotidine 20mg BID -Colace 100mg BID -Ducolax 10mg daily PRN -Humalog 2-9 units TID : -Mart catheter d/c today 07/15 -Oxybutynin 5mg TID ID: -Unasyn 3g q6h Heme: -Daily CBC/BMP Endo: -Levothyroxine 50mcg before breakfast -Metformin 500mg daily MSK: -Encourage ambulation DVT ppx: -SCD -Lovenox 40mg subcutaneous daily Dispo: Stepdown status currently, RNF pending Page OMFS if any questions Seferino Beltran Татьяна RITCHIE OMFS Resident Team Pager [phone] Normal [facility] Pct Authentication Interface Message Text -- GENERAL INFORMATION - SURGICAL ICU - STAFF NOTE Patient seen and examined on 07/15/2022 Patient Name: Isabelle Hewitt Admission Date: 07/14/2022 INTERVAL HISTORY/EVENTS Background: Ms Hewitt is a 47 year old woman with a history of hypothyroidism, HTN, HLD, bipolar disorder, DIONNE (recent pharyngoplasty 03/12) admitted following maxillo-mandibular advancement 07/14/22. Hospital Course: 07/14/2022: She was extubated in PACU and transferred to surgical stepdown 07/14/22 for airway watch. Respiratory status has been good with NRB mask. 24 Hour Events: She is tolerating small sips of water but not taking her oral pills when I saw her. Complaining of facial numbness and swelling. Otherwise not pain. No shortness of breath. Not consistently using NRB mask. -------- PHYSICAL EXAM -------- Vital Signs: Vital sign ranges over the past 24 hours (retrieved 07/15/2022 at 7:38 AM): Tmax (24 hours): 99.2 ???F (37.3 ???C) Pulse Av.6 Min: 75 Max: 97 Systolic (24hrs), Av , Min:87 , Max:121 Diastolic (24hrs), Av, Min:62, Max:93 MAP (mmHg) Av.4 mmHg Min: 74 mmHg Max: 101 mmHg Resp Av Min: 7 Max: 23 SpO2 Av.7 % Min: 90 % Max: 99 % 24 Hour Input/Output In: 3413.9 (37.9 mL/kg) [P.O.:120; I.V.:3293.9 (1.5 mL/kg/hr)] Out: 1535 (17.1 mL/kg) [Urine:1185 (0.5 mL/kg/hr)] Net: 1878.9 Weight: 90 kg Current Medications: Current Facility-Administered Medications: atenolol (TENORMIN) tablet, 100 mg, Oral, Daily, Oliver Rogers DMD atorvastatin (LIPITOR) tablet, 20 mg, Oral, Daily, Oliver Rogers DMD clonazePAM (KlonoPIN) tablet, 1 mg, Oral, Q12H PRN, Oliver Rogers DMD levothyroxine (SYNTHROID) tablet, 50 mcg, Oral, Before Breakfast, Oliver Rogers DMD, 50 mcg at 07/15/22 0625 metformin (GLUCOPHAGE) tablet, 500 mg, Oral, Daily, Oliver Rogers DMD OLANZapine (ZyPREXA) tablet, 10 mg, Oral, At Bedtime, Oliver Rogers DMD, 10 mg at 07/14/227 oxybutynin (DITROPAN) 5 MG tablet, 5 mg, Oral, 3x Daily, Oliver Rogers DMD, 5 mg at 07/15/22 0625 venlafaxine (EFFEXOR XR) 24 hour capsule, 75 mg, Oral, Daily, Oliver Rogers DMD HYDROmorphone (DILAUDID) 1 mg/mL injection, 0.5 mg, Intravenous Push, Q3H PRN, Clifford Cruz MD LORazepam (ATIVAN) 2 MG/ML injection, 0.5 mg, Intravenous Push, Q6H PRN, Clifford Cruz MD acetaminophen (TYLENOL) tablet, 650 mg, Oral, Every 4 hours, Oliver Rogers DMD, 650 mg at 07/15/22 0346 chlorhexidine (PERIDEX) 0.12 % oral solution, 15 mL, Swish AND Spit, 2x Daily, Oliver Rogers DMD, 15 mL at 07/14/222049 famotidine (PEPCID) tablet, 20 mg, Oral, 2x Daily, Oliver Rogers DMD, 20 mg at 07/14/222113 ibuprofen (MOTRIN) tablet, 600 mg, Oral, Q6H PRN, Oliver Rogers DMD oxyCODONE immediate release tablet, 5 mg, Oral, Q4H PRN, Oliver Rogers DMD oxyCODONE immediate release tablet, 10 mg, Oral, Q4H PRN, Oliver Rogers, CHAU, 10 mg at 07/15/22 034 dexamethasone (DECADRON) 4 MG/ML injection, 8 mg, Intravenous Push, Every 8 hours, Oliver Rogers DMD, 8 mg at 07/15/22 0109 ondansetron (ZOFRAN) 4 MG/2ML injection, 4 mg, Intravenous Push, Q6H PRN, Oliver Rogers DMD docusate sodium (COLACE) capsule, 100 mg, Oral, 2x Daily, Oliver Rogers DMD bisacodyl (DULCOLAX) 5 MG enteric coated tablet, 10 mg, Oral, Daily PRN, Oliver Rogers DMD oxymetazoline (AFRIN) 0.05 % nasal solution, 2 [place], Nasal, Q4H PRN, Oliver Rogers DMD sodium chloride (OCEAN) 0.65 % nasal spray, 1 [place], Nasal, Q1H PRN, Oliver Rogers DMD enoxaparin (LOVENOX) 40 MG/0.4ML injection 40 mg, 40 mg, Subcutaneous, Daily, Oliver Rogers DMD, 40 mg at 07/14/22 1658 naloxone (NARCAN) 0.4 MG/ML injection, 0.4 mg, Intravenous Push, PRN, Ki Atwood MD lactated ringers iv infusion, , Intravenous, Continuous, Saleem Mi DMD, Last Rate: 75 mL/hr at 07/15/22 0700, Rate Verify at 07/15/22 07 Physical Exam: Constitutional: Pleasant adult woman in no distress. Postoperative facial edema. Cardiovascular: Regular rate and rhythm. Normal heart sounds. Pulmonary: Clear to auscultation bilaterally. No wheezing, rhonchi or rales. Abdominal: Soft. Non-distended. Non-tender. Musculoskeletal: No edema. Neurological: No focal motor deficits. Alert and oriented. Noting facial numbness LABORATORY RESULTS (LAST 24 HOURS) CBC/PT/INR WBC RBC Hgb Hct MCV RDW Plt PT aPTT INR 07/15/22 0044 18.2 3.55 11.5 34.4 97 13.6 267 07/14/22 0844 12.2 37.6 Basic Metabolic Panel Na K Cl CO2 Gap Glu BUN Cr Ca Mg PO4 07/15/2243 141 4.3 102 28 15 147 16 0.91 8.0 07/14/22 0844 142 3.7 Arterial Blood Gases T Site Mode LPM FIO2 pH pCO2 pO2 Sat Base Ex HCO3- A-a 07/14/22 0844 24 07/14/22 0844 7.429 37.0 118 98.8 0.5 24 - (more content not included)... Normal [facility] Anesthesia Attestationon Pct Authentication Interface Message Text Anesthesia Attestation ATTESTATION OF INFORMED CONSENT FOR ANESTHESIA Anesthesia options were discussed with the patient and/or legal dermatology sales representative. The risks, benefits and alternatives were reviewed. Questions regarding anesthesia were answered. Patient and/or legal dermatology sales representative knows such anesthetics and procedures may be performed by Resident physicians, Certified Anesthesiologist Assistants, or Certified Nurse Anesthetists under the supervision of a physician. 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 Normal [facility] Anesthesia Postprocedure Lauren ervinmaria c 07-14-2022 Pct Authentication Interface Message Text Anesthesia Postoperative Assessment: Vital Signs (most recent): BP 107/82 Pulse 90 Temp 36.8 ???C (98.3 ???F) (Axillary) Resp 18 Ht 5' 2 (1.575 m) Wt 198 lb 6.6 oz (90 kg) LMP (LMP Unknown) SpO2 92% BMI 36.29 kg/m??? Anesthesia Post Evaluation Level of consciousness: awake Post-procedure exam normal. Body temperature, hydration status, PONV and pain evaluated and addressed. Pain management: adequate Hydration status: normal PONV:No nausea/vomiting reported Cardiopulmonary status stable Respiratory status: acceptable Cardiovascular status: acceptable ANESTHESIA NOTABLE EVENTS: No notable events documented. Normal [facility] Pct Authentication Interface Message Text Patient taken to PACU. Patient was awake, comfortable and stable on arrival. Anesthesia Transfer of Care Note Past Medical History: Past Medical History: Diagnosis Date * DIONNE (obstructive sleep apnea) Sleep Apnea/Positive STOP-BANG: Yes Problem List: Patient Active Problem List: DIONNE (obstructive sleep apnea) [G47.33] Past Surgical History: Review of patient's past surgical history indicates: UVULOPALATOPHARYNGOPLASTY (02/25/2022) Procedure: UVULOPALATOPHARYNGOPLASTY; Surgeon: Yi Moreno MD; Location: PERIOPERATIVE SERVICES; Service: Otolaryngology CHOLECYSTECTOMY BRONCHOSCOPY, FLEXIBLE, DRUG INDUCED SLEEP END* (06/03/2022) Procedure: BRONCHOSCOPY, FLEXIBLE, DRUG INDUCED SLEEP ENDOSCOPY (DISE); Surgeon: Yi Moreno MD; Location: PACU Procedure Rooms; Service: Otolaryngology Allergies: Patient has no known allergies. Basic Operating Room Facts: Surgeon(s): Rikki Rodrigues DMD, MD Anesthesiologist: Ki Atwood MD CAA: Edwina Warren CAA; Delia Morris CAA; Zenia Centeno CAA LEFORTE I OSTEOTOMY (Bilateral) OSTEOTOMY, SAGITTAL SPLIT, BILATERAL (Bilateral) Intraoperative Events: No acute event ASA: 2 EBL: 350 mL Urine 250 mL Lactated Ringers and NaCl 0.9%: Fluid Totals (Filter: LR and NaCl 0.9% Medications Shown) Medication Calculated Total lactated ringers iv infusion 1,900 mL / 2 bags Cell Saver: Not documented Blood Volume Values: Blood Products None MTP Blood: MTP PRBC: Not documented MTP FFP: Not documented MTP PLT: Not documented MTP Cryo: Not documented MTP Whole Blood: Not documented Current Vasoactive Medications: {Vasoactive Medications: None Lines, Drains, Airways Peripheral IV Access: 07/14/22 0650 18 gauge Anterior;Right Forearm (Active) Airway Insertion Details [REMOVED] Advanced Airway: ETT, Nasal;Cuffed #6.5 (Removed) 07/14/22 0756 Pre-Oxygenation/ Induction: Mask Rapid Sequence Induction?: Mask Ventilation: Easy;w/nasal airway;w/oral airway Blade size: S3 Visualization: Grade 1 Airway Type: ETT, Nasal;Cuffed Airway Size: #6.5 Post Insertion Assessment: Confirmation: Equal bilateral breath sounds, CO2 confirmed # Attempts >1: 2 Special Equipment: Glidescope Present on Admission?: Previously Removed / Not Present: Removal Reason: Not Removed at Discharge: Removed 07/14/22 1311 All non-working IVs have been removed: Yes Laboratory Data: CBC (last 3 years, up to 5 values) WBC RBC Hgb Hct MCV RDW Plt 07/14/22 0844 12.2 37.6 07/08/22 1512 7.2 4.32 14.3 42.2 98 13.4 274 Basic Metabolic Panel Na K Cl CO2 Gap Glu BUN Cr Ca 07/14/22 0844 142 3.7 Basic Metabolic Panel Na K Cl CO2 Gap Glu BUN Cr Ca Mg PO4 07/14/22 0844 142 3.7 No results found for: INR No result for BNP LFT's (last 3 years, up to 5 values) None Arterial Blood Gases T Site Mode LPM FIO2 pH pCO2 pO2 Sat Base Ex HCO3- A-a 07/14/22 0844 24 07/14/22 0844 7.429 37.0 118 98.8 0.5 24 Hand off Completed: Yes 1. The patient was identified. 2. Pertinent medical history was relayed. 3. A brief discussion was had about any pertinent surgical/ procedural issues. 4. Intraoperative/ anesthetic management issue and concerns were discussed. 5. Plans for the early post-operative period relayed. 6. An opportunity for questions and acknowledgment of understanding of the report was received. Zenia Centeno, CAA Normal [facility] BLOOD GAS, ARTERIALon 2021 CR DEBORAH 0.5 mmol/L Normal -2.0-2.0 [facility] Comment on above: Performed By: #### C R LYTES, CR GLU, LACT, CR BGA, CR ICA, CR COOX #### [facility] [address] [place] [address], CR PCO2 37.0 mm Hg Normal 35.0-45.0 [facility] Comment on above: Performed By: #### C R LYTES, CR GLU, LACT, CR BGA, CR ICA, CR COOX #### [facility] [address] [place] [address], CR PHA 7.429 Normal 7.35-7.45 [facility] Comment on above: Performed By: #### C R LYTES, CR GLU, LACT, CR BGA, CR ICA, CR COOX #### [facility] [address] [place] [address], CR PO2 118 mm Hg High 80-100 [facility] Comment on above: Performed By: #### C R LYTES, CR GLU, LACT, CR BGA, CR ICA, CR COOX #### [facility] [address] [place] [address], HCO3 (Bld) [Moles/Vol] 24 mmol/L Normal 22-28 [facility] Comment on above: Performed By: #### C R LYTES, CR GLU, LACT, CR BGA, CR ICA, CR COOX #### [facility] [address] [place] [address], Oxygen saturation in Blood 98.8 % Normal >=95.1 [facility] Comment on above: Performed By: #### C R LYTES, CR GLU, LACT, CR BGA, CR ICA, CR COOX #### [facility] [address] [place] [address], BLOOD GAS, ARTERIALOrdered B y: Osmar Zamora on 07-14-2022 Base excess Calc (Bld) [Moles/Vol] 0.5 mmol/L -2.0 - 2.0 mmol/L [facility] CO2 (Bld) [Partial pressure] 37.0 mm[Hg] [facility] Oxygen (Bld) [Partial pressure] 118 mm[Hg] High [facility] pH (Bld) 7.429 [pH] 7.35 - 7.45 [facility] Blood Attestationon 07-14-20 Pct Authentication Interface Message Text Blood Attestation ATTESTATION OF INFORMED CONSENT FOR BLOOD The transfusion of blood and/or blood components were discussed with the patient and/or legal dermatology sales representative. The risks, benefits and alternatives were reviewed. Questions regarding blood transfusions were answered. The patient /or the patient's legal dermatology sales representative agree with the plan for transfusion of blood and/or blood components. Normal [facility] Brief Operative Noteon 07-14 Pct Authentication Interface Message Text Brief Operative Note MAIN OR 12 Isabelle Hewitt 47 year old female Surgical Contact Serial Number: [id number] Preoperative Diagnosis: DIONNE (obstructive sleep apnea) [G47.33] Postoperative Diagnosis: * DIONNE (obstructive sleep apnea) [G47.33] Procedures: Surgical CPTs Procedures RECONSTRUCTION MIDFACE, LEFORT I; 1 PIECE, W/O BONE GRAFT RECONSTRUCTION, MANDIBULAR RAMI AND /OR BODY, SAGITTAL SPLIT; W/INT RIGID FIXATION No data filed Surgeon(s): Surgeon(s): Rikki Rodrigues DMD, MD Staff: Scrub: Annelise Saeed RN; Babs Wells RN Carton Filling Machine Operator Nurse: Stephanie Brannon RN; Babs Wells RN Canine Enforcement Officer: Margot Ovalles DDS; Saleem Mi DMD Anesthesia: General Anesthesiologist: Ki Atwood MD CAA: Edwina Warren CAA; Delia Morris CAA; Zenia Centeno CAA Specimen(s): * No specimens in log * Estimated Blood Loss: 350cc Lines/Drains: Peripheral IV Access: 07/14/22 0650 18 gauge Anterior;Right Forearm (Active) Temporarily Retained Foreign Object: Yes Location: Inside both cheeks Object: Telfa Dressing Anticipated removal date: 07/14/22 (this evening) Findings: Normal anatomy Complications: None Status at end of surgery: Stable Activity: Ad Beata and HOB elevated Surgical wound class: Yes, wound was clean contaminated. Patient Class: Surgery Admit. Is this a patient scheduled as an outpatient that needs to be admitted as an inpatient? No Dr. Rodrigues was present in the OR for the critical portion of the procedure and procedure sign-out. Signed by Rikki Rodrigues DMD, MD 07/14/2022 12:58 PM Normal [facility] CALCIUM, IONIZEDon CR ICA 1.00 mmol/L Low 1.10-1.40 [facility] Comment on above: Performed By: #### C R LYTES, CR GLU, LACT, CR BGA, CR ICA, CR COOX #### [facility] [address] [place] [address], Calcium.ionized (Bld) [Moles/Vol] 1.00 mmol/L Low 1.10 - 1.40 mmol/L [facility] CO-OXIMETERon 07-14-2022 CARBOXYHEMOGLOBIN 1.5 % Normal <3.0 [facility] Comment on above: Performed By: #### C R LYTES, CR GLU, LACT, CR BGA, CR ICA, CR COOX #### [facility] [address] [place] [address], CR HBMET 0.8 % Normal <3.0 [facility] Comment on above: Performed By: #### C R LYTES, CR GLU, LACT, CR BGA, CR ICA, CR COOX #### [facility] [address] [place] [address], Hematocrit (Bld) [Volume fraction] 37.6 % Normal 36.0-46.0 [facility] Comment on above: Performed By: #### C R LYTES, CR GLU, LACT, CR BGA, CR ICA, CR COOX #### [facility] PATHOLOGY LABORATORY [address] [place] [address], Hemoglobin (Bld) [Mass/Vol] 12.2 g/dL Normal 12.0-16.0 [facility] Comment on above: Performed By: #### C R LYTES, CR GLU, LACT, CR BGA, CR ICA, CR COOX #### [facility] [address] [place] [address], OXYHEMOGLOBIN 96.5 % Normal 95.0-100.0 [facility] Comment on above: Performed By: #### C R LYTES, CR GLU, LACT, CR BGA, CR ICA, CR COOX #### [facility] [address] [place], [id number] Carboxyhemoglobin (BldA) [Mass fraction] 1.5 % NINF - 3.0 % [facility] Hematocrit (BldA) [Volume fraction] 37.6 % 36.0 - 46.0 % [facility] Hemoglobin (Bld) [Mass/Vol] 12.2 g/dL 12.0 - 16.0 g/dL [facility] Methemoglobin (BldA) [Mass fraction] 0.8 % NINF - 3.0 % [facility] Oxyhemoglobin (BldA) [Mass fraction] 96.5 % 95.0 - 100.0 % [facility] 07-14-2022 Pct Authentication Interface Message Text Surgical ICU H AND P Isabelle Hewitt [id number] HPI: Ms Hewitt is a 47 year old woman with a history of DIONNE (s/p UPPP 03/12), HTN, hypothyroidism who underwent maxillo-mandibular advancement with Dr Rodrigues 07/14/22. She was extubated in PACU and transferred to surgical stepdown unit for airway monitoring. She is alert and oriented. Currently complains of postoperative facial pain only. Past Medical History: Diagnosis Date DIONNE (obstructive sleep apnea) Past Surgical History: Procedure Laterality Date BRONCHOSCOPY, FLEXIBLE, DRUG INDUCED SLEEP ENDOSCOPY (DISE) N/A 06/03/2022 Procedure: BRONCHOSCOPY, FLEXIBLE, DRUG INDUCED SLEEP ENDOSCOPY (DISE); Surgeon: Yi Moreno MD; Location: PACU Procedure Rooms; Service: Otolaryngology CHOLECYSTECTOMY UVULOPALATOPHARYNGOPLASTY N/A 02/25/2022 Procedure: UVULOPALATOPHARYNGOPLASTY; Surgeon: Yi Moreno MD; Location: PERIOPERATIVE SERVICES; Service: Otolaryngology Social History Tobacco Use Smoking status: Former Packs/day: 1.00 Years: 5.00 Pack years: 5.00 Types: Cigarettes Quit date: 01/2021 Years since quittin.4 Smokeless tobacco: Never Substance Use Topics Alcohol use: Not Currently Drug use: Never No family history on file. No Known Allergies No current facility-administered medications on file prior to encounter. Current Outpatient Medications on File Prior to Encounter Medication Sig Dispense Refill acetaminophen (TYLENOL) 325 mg tablet Take 2 Tablets by mouth every 4 hours as needed. 30 Tablet 0 acetaminophen (Tylenol 8 Hour) 650 MG CR tablet Take 1 Tablet by mouth every 8 hours as needed for Pain or Fever. 30 Tablet 0 senna (SENOKOT) 8.6 MG tablet Take 1 Tablet by mouth daily as needed for Constipation. (Patient not taking: No sig reported) 30 Tablet 0 sucralfate (CARAFATE) 1 GM tablet Take 1 Tablet by mouth 4 times daily. (Patient not taking: No sig reported) 40 Tablet 3 atorvastatin (LIPITOR) 20 mg tablet Take 20 mg by mouth. oxybutynin (DITROPAN) 5 MG tablet Take 5 mg by mouth. (Patient not taking: No sig reported) OLANZapine (ZyPREXA) 5 MG tablet Take 5 mg by mouth at bedtime. OLANZapine (ZyPREXA) 5 MG tablet Take 10 mg by mouth. hs oxybutynin (DITROPAN) 5 MG tablet Take 5 mg by mouth 3 times daily as needed. levothyroxine (SYNTHROID) 25 MCG tablet TAKE 1 TABLET BY MOUTH EVERY DAY IN THE AM ON AN EMPTY STOMACH. DO NOT EAT OR DRINK FOR 2 HOURS AFTER TAKING norethindrone (MICRONOR) 0.35 MG tablet Take by mouth. clonazePAM (KlonoPIN) 1 MG tablet Take 1 mg by mouth every 12 hours as needed. atenolol (TENORMIN) 100 mg tablet Take 100 mg by mouth daily. venlafaxine (EFFEXOR XR) 75 MG ER capsule Take 75 mg by mouth daily. venlafaxine (EFFEXOR XR) 150 MG ER capsule Take 150 mg by mouth daily. triamterene-hydrochlorothiaz paige (MAXZIDE) 37.5-25 MG tablet Take 1 Tablet by mouth every other day. HS tamsulosin (FLOMAX) 0.4 MG capsule Take 1 Capsule by mouth daily. (Patient not taking: No sig reported) ROS: 12 pt ROS otherwise negative unless stated above in HPI PHYSICAL EXAM: Tmax (24 hours): 98.8 ???F (37.1 ???C) Pulse Av.1 Min: 78 Max: 88 Systolic (24hrs), Av , Min:87 , Max:115 Diastolic (24hrs), Av, Min:62, Max:82 SpO2 Av.1 % Min: 91 % Max: 99 % Resp Av.3 Min: 7 Max: 22 In: 2198.9 (24.4 mL/kg) [I.V.:2198.9 (1 mL/kg/hr)] Out: 600 (6.7 mL/kg) [Urine:250 (0.1 mL/kg/hr)] Net: 1598.9 Weight: 90 kg Vitals: 07/14/22 1530 BP: 107/82 Pulse: 79 Resp: 15 Temp: SpO2: 96% Gen: In no acute distress HEENT: Packing in oral cavity. Buccal edema. Eyes: Extraocular motions intact CV: Regular rate and rhythm; Pulm: Clear to auscultation bilaterally; Abd: Soft, non-distended, and non-tender; non-peritonitic; : N/A Ext: Skin warm and well perfused, no edema Neuro: No focal neurologic deficits, alert and oriented x3 Labs: CBC (last 3 years, up to 5 values) WBC RBC Hgb Hct MCV RDW Plt 07/14/22 0844 12.2 37.6 07/08/22 1512 7.2 4.32 14.3 42.2 98 13.4 274 Basic Metabolic Panel Na K Cl CO2 Gap Glu BUN Cr Ca 07/14/22 0844 142 3.7 LFT's (last 3 years, up to 5 values) None Imaging: No relevant imaging. ASSESSMENT: Ms Hewitt is a 47 year old woman with a history of HTN, HLD, DIONNE s/p UPPP 03/12 admitted for airway monitoring following maxillo/mandibular advancement 07/14/22. PLAN: Neurologic -acetaminophen 650mg q4hr -oxycodone 5-10mg q6hr PO -hydromorphone 0.5 mg q3hr PRN -restart home Effexor XR, Zyprexa -lorazepam 0.5 mg q6hr PRN Cardiovascular -restart home antihypertensives as tolerated: Maxzide -restart home Lipitor Respiratory -continue NRB mask Infection -Ampicillin/Sulbactam prophylaxis tonight per OMFS GI/Feeding -full liquid diet -maintain Mart overnight Endocrine/Renal/Electrolytes -continue home dose LT4 -maintenance IVF LR @75 ml/hr Disposition -potential floor (more content not included)... Normal [facility] ELECTROLYTESon 07-14-2022 Chloride [Moles/Vol] 107 mmol/L Normal 97-111 [facility] Comment on above: Performed By: #### C R LYTES, CR GLU, LACT, CR BGA, CR ICA, CR COOX #### S PATHOLOGY LABORATORY [address] [place] [address], Potassium [Moles/Vol] 3.7 mmol/L Normal 3.3-5.3 [facility] Comment on above: Performed By: #### C R LYTES, CR GLU, LACT, CR BGA, CR ICA, CR COOX #### S PATHOLOGY LABORATORY [address] [place] [address], Sodium [Moles/Vol] 142 mmol/L Normal 135-148 [facility] Comment on above: Performed By: #### C R LYTES, CR GLU, LACT, CR BGA, CR ICA, CR COOX #### S PATHOLOGY LABORATORY [address] [place] [address], Chloride [Moles/Vol] 107 mmol/L 97 - 111 mmol/L [facility] Potassium [Moles/Vol] 3.7 mmol/L 3.3 - 5.3 mmol/L [facility] Sodium [Moles/Vol] 142 mmol/L 135 - 148 mmol/L [facility] GLUCOSE, FINGERSTICK-IN OFFI CEon 07-14-2022 Glucose [Mass/Vol] 156 mg/dL High 68-110 [facility] Comment on above: Performed By: #### 8 [id number] ####NURSING GLUCOSE [id number] [place], [address] Glucose [Mass/Vol] 156 mg/dL High 68 - 110 mg/dL [facility] Interpretation and review of laboratory results Abnormal [facility] Glucose [Mass/Vol] 110 mg/dL Normal 68-110 [facility] Comment on above: Performed By: #### 8 2948 ####NURSING GLUCOSE [id number] [place], [address] Glucose [Mass/Vol] 110 mg/dL 68 - 110 mg/dL [facility] Interpretation and review of laboratory results Normal [facility] GLUCOSE, WHOLE BLOODon 07-14 CR GLU 93 mg/dL Normal 68-98 [facility] Comment on above: Performed By: #### C R LYTES, CR GLU, LACT, CR BGA, CR ICA, CR COOX ####S PATHOLOGY [id number] [place], [place], Glucose [Mass/Vol] 93 mg/dL 68 - 98 mg/dL [facility] LACTIC ACIDon 07-14-2022 CR LACT 2.0 mmol/L Normal 0.5-2.0 [facility] Comment on above: Performed By: #### C R LYTES, CR GLU, LACT, CR BGA, CR ICA, CR COOX #### [facility] PATH[facility] [address] [place], [place], Lactate [Moles/Vol] 2.0 mmol/L 0.5 - 2. 0 mmol/L [facility] Laboratory - Chemistry and C hemistry - challengeOrdered By: Osmar Zamora on 07-14-2022 HCO3 (Bld) [Moles/Vol] 24 mmol/L 22 - 28 mmol/L [facility] No Panel Informationon 07-14 Interpretation and review of laboratory results Normal [facility] No Panel InformationOrdered By: Osmar Zamora on 07-14-2022 Interpretation and review of laboratory results Abnormal [facility] OP Noteon 07-14-2022 Pct Authentication Interface Message Text Name: ISABELLE HEWITT MR#: [id number] [facility]#: [id number] Date of Procedure: 07/14/2022 ATTENDING SURGEON: Rikki Rodrigues MD FIRST SURGEON: Justice Joseph SECOND SURGEON: Dr. Saleem Mi PREOPERATIVE DIAGNOSIS: Severe obstructive sleep apnea. POSTOPERATIVE DIAGNOSIS: Severe obstructive sleep apnea. PROCEDURES: 1. LeFort I osteotomy for advancement. 2. Bilateral sagittal split osteotomy. ANESTHESIA: General endotracheal anesthesia via nasal intubation. IV FLUIDS: 1900 mL of crystalloid. ESTIMATED BLOOD LOSS: 350 mL. URINE OUTPUT: 250 mL. DRAINS: None. SPECIMENS: None. COMPLICATIONS: None. DISPOSITION: To PACU and then to step-down unit for airway observation. PROCEDURE IN DETAIL: The patient was identified in the preoperative holding area. Risks, benefits, and alternatives of procedure were explained. All the patient's questions were answered and informed consent was obtained. She was brought back to the operating room, placed in the supine position and attached to appropriate anesthesia monitoring devices. She underwent a smooth general anesthetic induction. She was nasally intubated. The tube position was verified and secured in place. The patient was then prepped and draped in the usual sterile fashion. Unasyn 3 g IV was given for prophylactic antibiotics as well as 10 mg of Decadron. Local anesthesia was achieved with a total of 20 mL of a 50:50 mixture of 0.5% Marcaine plain and 1% lidocaine with epinephrine 1:100,000. A throat pack was placed deep in the oropharynx. 4 Beata MMF screws were placed, 2 in the maxilla, and 2 in the mandible. The mandibular ramus was exposed bilaterally through an intraoral incision in the posterior mandibular vestibule with Bovie electrocautery down to bone. Subperiosteal dissection was then proceeded to expose the ascending ramus on both sides with dissection along the medial aspect and use of a nerve hook to identify the lingula. A sagittal split osteotomy was performed in the usual design with a reciprocating saw and this split was completed successfully on both sides with a combination of osteotomes and a Kaufman machine binder stripper. On both sides, the inferior alveolar nerve was identified. This was easily freed from the proximal segment and rested within the osteotomy or within the distal segment with minimal manipulation of the nerve. With good splits achieved bilaterally, transbuccal trocar incisions were performed and plate and screw fixation was achieved after the patient was guided into maxillomandibular fixation with 4 MMF screws and previously fabricated intermediate splints. Fixation on both sides was consisted of [place] dog bone shaped plate with 3 monocortical screws proximally and 3 monocortical screws distally as well as 1 bicortical positional screw. With this fixation achieved, the patient was released from maxillomandibular fixation and found to be in the anticipated intermediate position. Next, an incision was made in the maxillary vestibule to expose the anterior maxilla. The nasal mucosa was elevated off the pyriform rim and a LeFort I osteotomy was performed with a reciprocating saw and completed with osteotomes across the floor of the nasal septum, the lateral nasal samayoa, and at the pterygoid maxillary junction. The maxilla was uneventfully down fractured and nasal mucosa was further freed to assist with mobilizing the maxilla. A greater palatine vessel was identified on the right side. This was preserved. On the left side, it looks like it was severed, this was addressed with Surgicel and direct pressure and hemostasis was easily achieved. Bony interferences were removed with a rongeur and the maxilla was mobilized with Douglass disimpaction forceps. The maxilla was advanced to the anticipated final position using prefabricated splints and again the MMF screws were used to accomplish maxillomandibular fixation. The maxillomandibular complex was then rotated up and additional bony interferences were removed until there was the anticipated 3 mm of anterior impaction accomplished. [place] prebent orthognathic plates were used at the nasomaxillary junction bilaterally, and in this fashion, stable fixation was achieved. The caudal septum was trimmed minimally to prevent buckling and a purchase point was made in the anterior nasal spine and the septum was reattached to the ANS with 2-0 PDS suture. The surgical sites were irrigated with copious amounts of normal saline followed by closure with 4-0 Vicryl sutures and oversewn with 3-0 chromic gut. The trocar incisions were closed with 5-0 fast-absorbing gut. At the completion of the procedure, the MMF screws were removed. An orogastric tube was placed in an in-and-out fashion and the throat pack was removed. The patient was allowed to emerge from general anesthesia. She was extubated and transferred to the postanesthesia care unit for continued monitoring. There were n (more content not included)... Normal [facility] URINE HCG-IN OFFICEon 2021 HCG ( test) Ql (U) Negative Negative [facility] Interpretation and review of laboratory results Normal [facility] Negative Internal Control Negative Negative [facility] Positive Internal Control Positive Positive [facility] XR SKULL PA+LATERALon 2021 XR SKULL PA+LATERAL EXAMINATION: XR SKUL L PA+LATERAL 07/14/2022 10:15 AM CLINICAL HISTORY: Reason for Exam: retained object. ASSOCIATED DIAGNOSIS: ORDERING PROVIDER: CORRINE RODRIGUES [employer] NOTE: Image of filter for retained surgical needle per Dr. Rodrigues. COMPARISON: None FINDINGS: IMPRESSION: Single view of the filter [place] with linear radiopaque foreign body compatible with retained needle. MACRO: None Normal [facility] XR Skull PA and Right latera l and Left lateralon 07-14-2022 EXAMINATION: XR SKUL L PA+LATERAL 07/14/2022 10:15 AM CLINICAL HISTORY: Reason for Exam: retained object. ASSOCIATED DIAGNOSIS: ORDERING PROVIDER: CORRINE RODRIGUES [employer]ISTS NOTE: Image of filter for retained surgical needle per Dr. Rodrigues. COMPARISON: None FINDINGS: IMPRESSION: Single view of the filter [place] with linear radiopaque foreign body compatible with retained needle. MACRO: None RADIOLOGY Feliz Guzman MD - 07/14/2022 EXAMINATION: XR SKULL PA+LATERAL 07/14/2022 10:15 AM CLINICAL HISTORY: Reason for Exam: retained object. ASSOCIATED DIAGNOSIS: ORDERING PROVIDER: COR[employer] RODRIGUES [employer] NOTE: Image of filter for retained surgical needle per Dr. Rodrigues. COMPARISON: None FINDINGS: IMPRESSION: Single view of the filter [place] with linear radiopaque foreign body compatible with retained needle. MACRO: None [facility] Radiology Study observation (narrative) [facility] XR Skull PA and Right latera l and Left lateralOrdered By: Feliz Guzman on 07-14-2022 [employer] Work Phone: Anesthesia Preprocedure Eval uationon 07-13-2022 Pct Authentication Interface Message Text ASA: 2 No history of anesthetic complications NPO status: Greater than 8 hours Past Medical History and Review of Systems Pulmonary (+) sleep apnea, Comment: Social History Tobacco Use Smoking status: Former Packs/day: 1.00 Years: 5.00 Pack years: 5 Types: Cigarettes Quit date: 01/2021 Years since quittin.4 Smokeless tobacco: Never Patient does not use BIPAP device Dental - negative ROS 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 - negative 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: [facility]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 Neuro/Psych - negative ROS Cardiovascular (+) Surgical risk: intermediate; Cardiac condition: no apparent GI/Hepatic/Renal - negative ROS Heme/Other - negative ROS Other ROS: Patient Active Problem List: DIONNE (obstructive sleep apnea) (G47.33) Past Medical History: No date: DIONNE (obstructive sleep apnea) Past Surgical History: 06/03/2022: BRONCHOSCOPY, FLEXIBLE, DRUG INDUCED SLEEP ENDOSCOPY (DISE); N/A Comment: Procedure: BRONCHOSCOPY, FLEXIBLE, DRUG INDUCED SLEEP ENDOSCOPY (DISE); Surgeon: Yi Moreno MD; Location: PACU Procedure Rooms; Service: Otolaryngology No date: CHOLECYSTECTOMY 02/25/2022: UVULOPALATOPHARYNGOPLASTY; N/A Comment: Procedure: UVULOPALATOPHARYNGOPLASTY; Surgeon: Yi Moreno MD; Location: PERIOPERATIVE SERVICES; Service: Otolaryngology Physical Exam Airway TM distance: Adequate Micrognathia: Not present Jaw opening: Adequate Neck flexion: Adequate Dental PE (+) intact Pulmonary - pulmonary exam normal Cardiovascular - cardiovascular exam normal Neuro - neurological exam normal Plan Anesthesia plan: general (ETT) Medications may include (but not limited to): anxiolytics, narcotic analgesics, IV hypnotics, neuromuscular blockers and inhalational analgesics Pain management: May include (but not limited to): anxiolytics and narcotic analgesics Anesthesia risks / alternatives discussed pre-op Questions answered / anesthesia plan accepted Past medical history, surgical history, allergies, and medications reviewed. Pertinent laboratory tests, EKG, imaging, and consults reviewed and I have personally seen and evaluated the patient, repeating ulloa portions of the history and physical examination. Normal The [employer] [facility] Telephone Encounteron 2021 Pct Authentication Interface Message Text Patient states she is faxing over paperwork for her time off of work d/t surgery tomorrow, 07/14. Patient would like a call when this is received if possible. Please call [phone]. Patient informed it might not be possible, just in case. Thank you! Normal The [employer] [facility] Telephone Encounteron 2021 Pct Authentication Interface Message Text [id number]: Contacted pt and informed her to call the ENT office to schedule appt with Dr Moerno s/p jaw surgery in about 3 months due to healing time. Pt verbalized understanding. Latoya Manzo RN Normal [facility] [employer] [facility] Pct Authentication Interface Message Text Dr. Joel, Patient calling stating that she is going forward with the jaw surgery that you recommended next 07/14/22. Patient would like to know what the next step is for after the surgery. PT: [phone] Thanks, D Normal [facility] ABO RH TYPEon 07-08-2022 ABO and Rh group Nom (Bld) Blood group B Rh(D) positive Normal [facility] Comment on above: Performed By: #### M MILO Alan CH8 #### S PATHOLOGY LABORATORY [address] [place], [place], CBC panel Auto (Bld)on 07-08 Erythrocyte distribution width (RBC) [Ratio] 13.4 % 11.5 - 14.5 % [facility] Hematocrit (Bld) [Volume fraction] 42.2 % 36.0 - 46.0 % [facility] Hemoglobin (Bld) [Mass/Vol] 14.3 g/dL 12.0 - 15.0 g/dL [facility] Interpretation and review of laboratory results Normal [facility] MCH (RBC) [Entitic mass] 33.1 pg 26.0 - 34.0 pg [facility] MCHC (RBC) [Mass/Vol] 33.9 g/dL 32.0 - 35.9 g/dL [facility] MCV (RBC) [Entitic vol] 98 fL 80 - 100 fL [facility] Platelet mean volume (Bld) [Entitic vol] 8.8 fL 7.5 - 11.2 fL [facility] Platelets (Bld) [#/Vol] 274 10*3/uL 150 - 400 K/uL [facility] RBC (Bld) [#/Vol] 4.32 10*6/uL [facility] WBC (Bld) [#/Vol] 7.2 10*3/uL 4.5 - 11.5 K/uL [facility] COMPLETE BLOOD COUNTon 07-08 Erythrocyte distribution width (RBC) [Ratio] 13.4 % Normal 11.5-14.5 [facility] Comment on above: Performed By: #### C BC ####[facility] [id number] [place], [place], Hematocrit (Bld) [Volume fraction] 42.2 % Normal 36.0-46.0 [facility] Comment on above: Performed By: #### C BC ####[facility] [id number] [place], [place], Hemoglobin (Bld) [Mass/Vol] 14.3 g/dL Normal 12.0-15.0 [facility] Comment on above: Performed By: #### C BC ####[facility] PATHOLOGY [id number] [place], [place], MCH (RBC) [Entitic mass] 33.1 pg Normal 26.0-34.0 [facility] Comment on above: Performed By: #### C BC ####[facility] PATHOLOGY [id number] [place], [place], MCHC (RBC) [Mass/Vol] 33.9 g/dL Normal 32.0-35.9 [facility] Comment on above: Performed By: #### C BC ####[facility] PATHOLOGY [id number] [place], [place], MCV (RBC) [Entitic vol] 98 fL Normal 80-100 [facility] Comment on above: Performed By: #### C BC ####[facility] PATHOLOGY [id number] [place], [place], Platelet mean volume (Bld) [Entitic vol] 8.8 fL Normal 7.5-11.2 [facility] Comment on above: Performed By: #### C BC ####[facility] PATHOLOGY [id number] [place], [place], Platelets (Bld) [#/Vol] 274 10*3/uL Normal 150-400 [facility] Comment on above: Performed By: #### C BC ####[facility] PATHOLOGY [id number] [place], [place], RBC (Bld) [#/Vol] 4.32 10*6/uL Normal 4.00-5.20 [facility] Comment on above: Performed By: #### C BC ####[facility] PATHOLOGY [id number] [place], [place], WBC (Bld) [#/Vol] 7.2 10*3/uL Normal 4.5-11.5 [facility] Comment on above: Performed By: #### C BC ####S PATHOLOGY [id number] [place], [place], Laboratory - Blood bankon ABO and Rh group Nom (Bld) Blood group B Rh(D) positive [facility] No Panel Informationon 07-08 [facility] PSE Appt H AND Neftali Pct Authentication Interface Message Text Patient was identified by name and date of . Edwina Daniel Bill of rights provided to patient Normal [facility] Patient Instructionson 07-08 Pct Authentication Interface Message Text On the morning of your surgery please take only the following medications, with a small sip of water: sucralfate (CARAFATE) 1 GM tablet atorvastatin (LIPITOR) 20 mg tablet oxybutynin (DITROPAN) 5 MG tablet levothyroxine (SYNTHROID) 25 MCG tablet clonazePAM (KlonoPIN) 1 MG tablet atenolol (TENORMIN) 100 mg tablet venlafaxine (EFFEXOR XR) 75 MG ER capsule venlafaxine (EFFEXOR XR) 150 MG ER capsule Do not take any Aspirin after 7 days prior to procedure. Do not take any Ibuprofen, Aleve, Advil, or Motrin or any other NSAIDS after 3 days prior to procedure. May take over the counter Acetaminophen (Tylenol) as needed for pain Please hold all Vitamin E, [place] 3, fish oil and herbal supplements for 1 week prior to surgery Normal [facility] TYPE AND SCREENon 07-08-2022 ABO and Rh group Nom (Bld) No Previous Results [facility] Comment on above: Patient does not req uire a 2nd sample drawn prior to surgery date of 07/14/2022___. Specimen meets Blood Bank's Pre-Surgical Protocol and is valid within 14 days from date of collection but will at midnight on the day of approved Surgery. Corrected Result : 07/08/2022 17:16:22 : By Transfusion Medicine Blood group antibody screen Ql Negative [facility] ABO and Rh group Nom (Bld) Blood group B Rh(D) positive Normal [facility] Comment on above: Performed By: #### MILO Mattson, ARCHIE #### [facility] [address] [place], [place], ABO and Rh group Nom (Bld) No Previous Results Normal [facility] Comment on above: Result Comment: Deepa ent does not require a 2nd sample drawn prior to surgery date of 07/14/2022___. Specimen meets Blood Bank's Pre-Surgical Protocol and is valid within 14 days from date of collection but will at midnight on the day of approved Surgery. Corrected Result : 07/08/2022 17:16:22 : By Transfusion Medicine Performed By: #### MILO Mattson CH8 #### [facility] [address] [place] [address], ABSC INT Negative Normal [facility] System Comment on above: Performed By: #### MILO Mattson CH8 #### [facility] [address] [place] [address], FREE T4on 07-07-2022 Free T4 [Mass/Vol] 0.83 ng/dL Normal 0.76-1.46 [facility] [place] [facility] Comment on above: Performed By: #### F T4 #### [facility] [address] [address] [address] Stephanie Gibbs TSHon 07-07-2022 TSH 3.715 uIU/mL Normal 0.358-3.74 0 [facility] Comment on above: Performed By: #### C BC #### [facility] [address] [place] [address] Dr. Stephanie Gibbs PSE Appt H AND Neftali Pct Authentication Interface Message Text Error Normal [facility] Progress Noteson 07-02-2022 Pct Authentication Interface Message Text Patient was seen in the [facility] clinic for alginate impressions of the edentulous maxilla and CBCT with denture in place. Seferino Vaz DMD OMFS Resident Normal [facility] Pct Authentication Interface Message Text ORAL SURGERY CLINIC FOLLOW UP VISIT Patient was seen in the OM clinic for alginate impressions of the edentulous maxilla and CBCT with denture in place. Seferino Vaz DMD OMFS Resident ms. Normal [facility] Patient Instructionson 06-18 Pct Authentication Interface Message Text Maxillomandibular advancement surgery, or MMA, utilizes movement of the jaws to help open the airway while you sleep. The upper and lower jaw bone are broken during surgery and moved forward to a new position. Plates and screws under the gums hold the bones in place. During the recovery period, you will be required to maintain a no chew diet for several weeks before progressing back to a normal diet. Required to complete pre-surgical evaluation prior to surgery. No food or drink after midnight the night before surgery. We anticipate 2-4 nights in the hospital, the first several of which may be in the intensive care unit for airway monitoring. There is a small chance of remaining intubated (breathing tube) following surgery. There is also a small chance of remaining wired closed. However, most patients only require rubber bands. You have elected to forego orthodontic treatment prior to surgery. Our goal is to maintain your bite in the same position, though there may be small noticeable changes. The only way to change or improve your bite before or after surgery is orthodontics, though we do not anticipate this affecting the management of your sleep apnea. We also anticipate noticeable changes to your facial appearance, including an increased prominence of your chin and upper jaw, as well as changes to your nose. As discussed, other risks include bleeding, infection, necessity of additional surgeries, and hardware failure. There is a risk of nerve damage on the lower jaw resulting in numbness of the chin/lower lip. There is a risk of necrosis or loss of segments of the upper jaw (rare). While we anticipate significant improvement in sleep apnea symptoms and sleep study results, most patients are not cured. Some patients are recommended to continue CPAP treatment after surgery for residual sleep apnea. Some patients benefit from additional surgeries such as INSPIRE. This surgery does not treat central apneas, or sleep apnea related to the brain not sending the signal to breath. Central apneas may continue to produce symptoms such as daytime fatigue and inconsistent sleep. Normal [facility] Progress Noteson 06-18-2022 Pct Authentication Interface Message Text OMFS PATIENT VISIT CHIEF COMPLAINT: sleep apnea HISTORY OF PRESENT ILLNESS: Patient presents for evaluation for surgical treatment of DIONNE. She is extremely symptomatic from her DIONNE, and suffers from CPAP intolerance. [place] sleepiness scale is 18. Patient is starting to experience some drowsy driving. She has undergone tonsillectomy and ODALIS with Dr. Moreno in February. According to his note, A follow-up in-lab sleep study after her expansion pharyngoplasty demonstrated an AHI of 102.7 with no mixed or central apnea and an O2 carlene of 71% . Those results aren't immediately available to me. Referred for evaluation for MMA. 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 Missing several teeth in the mandible, and has an RPD that she doesn't wear. PAST MEDICAL HISTORY: 47 yrs old White female Past Medical History: Diagnosis Date DIONNE (obstructive sleep apnea) Patient Active Problem List: DIONNE (obstructive sleep apnea) [G47.33] MEDICATIONS: Current Outpatient Medications Medication Sig Dispense Refill acetaminophen (TYLENOL) 325 mg tablet Take 2 Tablets by mouth every 4 hours as needed. 30 Tablet 0 acetaminophen (Tylenol 8 Hour) 650 MG CR tablet Take 1 Tablet by mouth every 8 hours as needed for Pain or Fever. 30 Tablet 0 senna (SENOKOT) 8.6 MG tablet Take 1 Tablet by mouth daily as needed for Constipation. 30 Tablet 0 sucralfate (CARAFATE) 1 GM tablet Take 1 Tablet by mouth 4 times daily. 40 Tablet 3 methylPREDNISolone (MEDROL DOSEPAK) 4 mg tablet Please take according to instructions on container 21 Tablet 0 atorvastatin (LIPITOR) 20 mg tablet Take 20 mg by mouth. oxybutynin (DITROPAN) 5 MG tablet Take 5 mg by mouth. OLANZapine (ZyPREXA) 5 MG tablet Take 5 mg by mouth at bedtime. OLANZapine (ZyPREXA) 5 MG tablet Take by mouth. oxybutynin (DITROPAN) 5 MG tablet Take 5 mg by mouth 3 times daily as needed. levothyroxine (SYNTHROID) 25 MCG tablet TAKE 1 TABLET BY MOUTH EVERY DAY IN THE AM ON AN EMPTY STOMACH. DO NOT EAT OR DRINK FOR 2 HOURS AFTER TAKING norethindrone (MICRONOR) 0.35 MG tablet Take by mouth. clonazePAM (KlonoPIN) 1 MG tablet Take 1 mg by mouth every 12 hours as needed. atenolol (TENORMIN) 100 mg tablet Take 100 mg by mouth daily. venlafaxine (EFFEXOR XR) 75 MG ER capsule Take 75 mg by mouth daily. venlafaxine (EFFEXOR XR) 150 MG ER capsule Take 150 mg by mouth daily. triamterene-hydrochlorothiaz paige (MAXZIDE) 37.5-25 MG tablet Take 1 Tablet by mouth every other day. tamsulosin (FLOMAX) 0.4 MG capsule Take 1 Capsule by mouth daily. No current facility-administered medications for this visit. ALLERGIES: Patient has no known allergies. SURGICAL HX: Past Surgical History: Procedure Laterality Date BRONCHOSCOPY, FLEXIBLE, DRUG INDUCED SLEEP ENDOSCOPY (DISE) N/A 06/03/2022 Procedure: BRONCHOSCOPY, FLEXIBLE, DRUG INDUCED SLEEP ENDOSCOPY (DISE); Surgeon: Yi Moreno MD; Location: PACU Procedure Rooms; Service: Otolaryngology CHOLECYSTECTOMY UVULOPALATOPHARYNGOPLASTY N/A 02/25/2022 Procedure: UVULOPALATOPHARYNGOPLASTY; Surgeon: Yi Moreno MD; Location: PERIOPERATIVE SERVICES; Service: Otolaryngology SOCIAL HX: Tobacco: Quit Packs: 1 Years: 5 Other types: Cigarettes Quit Date: 01/20/2021 CLINICAL EXAMINATION HEAD: atraumatic, retrognathic appearance with weak chin. Very obtuse cervicomental angle, thick neck EYES: PERRL, Visual acuity intact, extraocular movements intact EARS: hearing intact symmetrically, EAC clear NOSE: anterior rhinoscopy shows no nasal congestion, no septal deviation, normal sized inferior turbinates, generally small nasal aperture. OROPHARYNX: Edentulous maxilla, missing many teeth on mandible. Has upper denture which has adequate fit. Alveolar irregularity of the maxilla, and a small bony sequestrum removed today from the #12 area. Tonsils are surgically absent. SARAH is 40mm, no TMJ abnormality noted on exam. RADIOGRAPHIC INTERPRETATION: CBCT Film taken on 06/18/2022, and Digital version in [facility] [employer] system. Airway measurements are very small compared to norms. Retrognathic mandible. DIAGNOSIS: Obstructive sleep apnea [886856] TREATMENT: Exam, Panorex evaluated, and pictures/models taken today. PLAN: Tentative plan for maxillomandibular advancement. Explained to patient the need for new dentures afterwards, due to inevitable change in occlusion. Discussed with patient at length the review of results, in consideration of data from CBCT analysis, DISE, and PSG. Airway volumetric analysis is smaller compared to averages. Also with maxillary and mandibular hypoplasia and micrognathia. Therefore, skeletal predisposition is a major contributor. Discussed with patient option for maxillomandibular advancement, including risks which were listed as sensory disturbance to the upper/lower lip and chin, change in bite, infection, need for (more content not included)... Normal [facility] Progress Noteson 06-15-2022 Pct Authentication Interface Message Text CC: sleep disordered breathing Referred by: Dr Mcmanus HPI: The patient with a history of severe obstructive sleep apnea and CPAP intolerance. At initial presentation her home sleep study indicated an AHI of 63 with an O2 carlene of 64% Multilevel upper airway obstruction was noted on her 1st sleep endoscopy including oropharynx, base of tongue in the setting of severe retrognathia. A multilevel upper airway approach had been recommended and she ultimately underwent an expansion sphincter pharyngoplasty on 02/25/2022, A follow-up in-lab sleep study after her expansion pharyngoplasty demonstrated an AHI of 102.7 with no mixed or central apnea and an O2 carlene of 71% A drug-induced sleep endoscopy was performed on 06/03/2022 with the following findings: The previously operated retropalatal airway is now only 50% to 75% obstructed in anterior to posterior direction. There is no further concentric collapse. Base of tongue shows very severe 100% AP collapse in the setting of retrognathia and this does not improve much with jaw thrust. Epiglottis is not obstructive. Interval history: Postoperative pain mostly resolved. Lost about 10-15 lb after surgery Continues to be unable to tolerate CPAP because of significant discomfort caused by mask and she continues to be symptomatic with daytime fatigue, snoring and choking at night. A detailed otolaryngological examination including examination of the facial appearance and function, auricles, ear canals, tympanic membranes, nasal aperture and passages, nasal septum, lateral nasal wall, turbinates oral cavity, tongue, oropharynx, dentition, neck, laryngotracheal complex, thyroid parotids, TMJs was normal except stated below: Soft palate is nicely elevated and expanded Jaw significantly retrognathia. Dejesus class 4 Neuro/Psych: Alert with normal mood and affect. Cranial nerves II-XII grossly intact. Cardiac: Regular rate and rhythm. Respiratory/Chest: Symmetric expansion during respiration, normal respiratory effect, no retractions. Extremities: No clubbing, cyanosis, or edema. Skin: Warm and intact. Assessment and plan: History of very severe obstructive sleep apnea, status post ODALIS on 02/25/2022 to eliminate retro palatal and oropharyngeal obstruction. Her AHI continues to be very severe with 102.7, which is related to a unfavorable jaw anatomy with retrognathia resulting in a very significant base of tongue obstruction. Post expansion pharyngoplasty sleep endoscopy demonstrates that the operated retro palatal obstruction is now eliminated I discussed findings and recommendations including nonsurgical and surgical treatment options for DIONNE. With that in mind she is a good candidate for a maxillomandibular advancement procedure which would help improve her base of tongue airway. It is most likely that she would need a hypoglossal nerve stimulator implanted following MMA Normal [facility] Anesthesia Attestationon Pct Authentication Interface Message Text Anesthesia Attestation ATTESTATION OF INFORMED CONSENT FOR ANESTHESIA Anesthesia options were discussed with the patient and/or legal dermatology sales representative. The risks, benefits and alternatives were reviewed. Questions regarding anesthesia were answered. Patient and/or legal dermatology sales representative knows such anesthetics and procedures may be performed by Resident physicians, Certified Anesthesiologist Assistants, or Certified Nurse Anesthetists under the supervision of a physician. 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 Normal [facility] Anesthesia Postprocedure Lauren luationon 06-03-2022 Pct Authentication Interface Message Text Anesthesia Postoperative Assessment: Vital Signs (most recent): BP 116/84 (BP Location: left arm) Pulse 81 Temp 36.9 ???C (98.5 ???F) (Oral) Resp 20 Ht 5' 2 (1.575 m) Wt 190 lb (86.2 kg) LMP (LMP Unknown) SpO2 95% BMI 34.75 kg/m??? Anesthesia Post Evaluation Level of consciousness: awake Post-procedure exam normal. Body temperature, hydration status, PONV and pain evaluated and addressed. Pain management: adequate Hydration status: normal PONV:No nausea/vomiting reported Cardiopulmonary status stable Respiratory status: acceptable Cardiovascular status: acceptable ANESTHESIA NOTABLE EVENTS: No notable events documented. Normal [facility] Anesthesia Preprocedure Eval uationon 06-03-2022 Pct Authentication Interface Message Text ASA: 2 No history of anesthetic complications NPO status: Greater than 8 hours Past Medical History and Review of Systems Pulmonary - negative ROS (+) sleep apnea, Dental - negative ROS Endo - negative ROS Neuro/Psych - negative ROS Cardiovascular - negative ROS GI/Hepatic/Renal - negative ROS Heme/Other - negative ROS Physical Exam Airway TM distance: Adequate Micrognathia: Not present Jaw opening: Adequate Neck flexion: Adequate Dental PE (+) intact Pulmonary - pulmonary exam normal Cardiovascular - cardiovascular exam normal Neuro - neurological exam normal Plan Anesthesia plan: MAC (NC) Medications may include (but not limited to): anxiolytics, narcotic analgesics and IV hypnotics Pain management: May include (but not limited to): IV, anxiolytics and narcotic analgesics Anesthesia risks / alternatives discussed pre-op Questions answered / anesthesia plan accepted Past medical history, surgical history, allergies, and medications reviewed. Pertinent laboratory tests, EKG, imaging, and consults reviewed and I have personally seen and evaluated the patient, repeating ulloa portions of the history and physical examination. Normal [facility] Anesthesia Transfer Of Careo n 06-03-2022 Pct Authentication Interface Message Text Patient taken to PACU. Patient was awake, comfortable and stable on arrival. Anesthesia Transfer of Care Note Past Medical History: Past Medical History: Diagnosis Date * DIONNE (obstructive sleep apnea) Sleep Apnea/Positive STOP-BANG: Yes Problem List: Patient Active Problem List: DIONNE (obstructive sleep apnea) [G47.33] Past Surgical History: Review of patient's past surgical history indicates: UVULOPALATOPHARYNGOPLASTY (02/25/2022) Procedure: UVULOPALATOPHARYNGOPLASTY; Surgeon: Yi Moreno MD; Location: PERIOPERATIVE SERVICES; Service: Otolaryngology CHOLECYSTECTOMY Allergies: Patient has no known allergies. Basic Operating Room Facts: Surgeon(s): Yi Moreno MD Anesthesiologist: Torei Swenson MD CAA: Jamey Rossi CAA BRONCHOSCOPY, FLEXIBLE, DRUG INDUCED SLEEP ENDOSCOPY (DISE) Intraoperative Events: No acute event ASA: 2 EBL: Not documented Urine Not documented Lactated Ringers and NaCl 0.9%: Fluid Totals (Filter: LR and NaCl 0.9% Medications Shown) Medication Calculated Total Lactated Ringers 300 mL / 1 bag Cell Saver: Not documented Blood Volume Values: Blood Products None MTP Blood: MTP PRBC: Not documented MTP FFP: Not documented MTP PLT: Not documented MTP Cryo: Not documented MTP Whole Blood: Not documented Current Vasoactive Medications: {Vasoactive Medications: None Lines, Drains, Airways Peripheral IV Access: 06/03/221313 22 gauge Right Hand (Active) Site Assessment Dressing intact;WNL 06/03/221313 Infusion Status Port #1 Infusing 06/03/221313 Airway Adjunct: Nasal Cannula (Active) Airway Insertion Details * No LDAs found * All non-working IVs have been removed: Yes Laboratory Data: CBC (last 3 years, up to 5 values) None Basic Metabolic Panel None Basic Metabolic Panel None No results found for: INR No result for BNP LFT's (last 3 years, up to 5 values) None Arterial Blood Gases None Hand off Completed: Yes 1. The patient was identified. 2. Pertinent medical history was relayed. 3. A brief discussion was had about any pertinent surgical/ procedural issues. 4. Intraoperative/ anesthetic management issue and concerns were discussed. 5. Plans for the early post-operative period relayed. 6. An opportunity for questions and acknowledgment of understanding of the report was received. CINTIA Patel Normal [facility] Brief Operative Noteon 06-03 Pct Authentication Interface Message Text Brief Operative Note PACU 19 Isabelle Hewitt 47 year old female Surgical Contact Serial Number: [id number] Preoperative Diagnosis: DIONNE (obstructive sleep apnea) [G47.33] Postoperative Diagnosis: * DIONNE (obstructive sleep apnea) [G47.33] Procedures: No data filed Surgeon(s): Surgeon(s): Yi Moreno MD Staff: * No surgical staff found * Anesthesia: Consult Anesthesiologist: Torie Swenson MD CAA: Jamey Rossi CAA Specimen(s): * No specimens in log * Estimated Blood Loss: less than 5 cc Lines/Drains: Peripheral IV Access: 06/03/221313 22 gauge Right Hand (Active) Site Assessment Dressing intact;WNL 06/03/221313 Infusion Status Port #1 Infusing 06/03/221313 Temporarily Retained Foreign Object: No Findings: Significant base of tongue obstruction in the setting of significant retrognathia Complications: None Status at end of surgery: Stable Activity: Ad Beata Surgical wound class: No wound. Patient Class: Outpatient Surgery. Is this a patient scheduled as an outpatient that needs to be admitted as an inpatient? No Dr. Moreno was present in the OR for the critical portion of the procedure and procedure sign-out. Signed by Ryann Brown PA-C 06/03/2022 2:48 PM Normal [facility] OP Noteon 06-03-2022 Pct Authentication Interface Message Text Name: ISABELLE HEWITT MR#: [id number] ENC#: [id number] Date of Procedure: 06/03/2022 ATTENDING SURGEON: Yi Moreno MD FIRST SURGEON: Ryann Brown PA-C PREOPERATIVE DIAGNOSIS: Obstructive sleep apnea with CPAP intolerance. POSTOPERATIVE DIAGNOSIS: Obstructive sleep apnea with CPAP intolerance. PROCEDURE: Drug-induced sleep endoscopy. INDICATIONS: The patient with a history of severe obstructive sleep apnea and CPAP intolerance. Multilevel upper airway obstruction has previously been identified including oropharynx, base of tongue in the setting of severe retrognathia. A multilevel upper airway approach had been recommended and she ultimately underwent an expansion sphincter pharyngoplasty on 02/25/2022, which did not improve her AHI. Indication was now given to reassess the upper airway in light of her persistent severe AHI of over 100. A drug-induced sleep endoscopy was performed on 06/03/2022 with the following findings: The previously operated retropalatal airway is now only 50% to 75% obstructed in anterior to posterior direction. There is no further concentric collapse. Base of tongue shows very severe 100% AP collapse in the setting of retrognathia and this does not improve much with jaw thrust. Epiglottis is not obstructive. RECOMMENDATIONS: The patient suffers from a single site base of tongue obstruction, which is extremely severe in the setting of retrognathia, giving her retromandibular space, which reduces a retromandibular space significantly. In light of the very limited retromandibular space, she is not a good candidate for Inspire. In fact, her AHI is too high and she would not be eligible for it. I do recommend to proceed with a maxillomandibular advancement procedure to achieve a larger space for her tongue and I would not be surprised if she will still have some residual sleep apnea, for which I would then likely recommend hypoglossal nerve stimulation. DESCRIPTION OF PROCEDURE: After the patient was sedated appropriately, we introduced the video endoscope with findings as described above, at which point she was taken back to recovery. MD SIABEL Rebollar/Marii/ Dict: 06/03/2022 15:35:21 TRANS: 06/04/2022 07:02:00 JOB: [id number] DictJob#: [id number] Normal [facility] Progress Noteson 06-03-2022 Pct Authentication Interface Message Text Discharge instructions reviewed in preop with patient. Patient verbalized understanding. No questions at this time. Normal [facility] Telephone Encounteron 2021 Pct Authentication Interface Message Text Pre-op COVID test results received AND scanned into [employer]. Results NEGATIVE on 05/31/2022. Scheduled for DISE on 06/03/2022. Normal [facility] COVID Quick Testingon 2021 Result Negative [employer] Other PSE Call H AND Neftali Pct Authentication Interface Message Text Telephone History Isabelle Hewitt, [id number] 05/28/2022 47 year old 190 lbs 5' 2 Patient identified by name and date of Height and weight reported by patient Date of Surgery: 06/03/2022 Surgeon: Dr Moreno Type of Surgery: DISE HISTORY OF PRESENT ILLNESS: PSE telephone history conducted with pt for surgery with Dr Moreno, PACU Dr Moreno 03/29/2022 HPI: History of obstructive sleep apnea, preoperative AHI 63 with O2 carlene 64% .CPAP intolerance, symptomatic. Surgical route recommended Multilevel upper airway obstruction including oropharynx and base of tongue diagnosed per sleep endoscopy Staged multilevel upper airway procedure recommended. Of note, patient is edentulous 02/25/2022-expansion sphincter pharyngoplasty Interval history: Postoperative pain mostly resolved. Lost about 10-15 lb after surgery Continues to be unable to tolerate CPAP because of significant discomfort caused by mask and she continues to be symptomatic with daytime fatigue, snoring and choking at night. Assessment and plan: History of very severe obstructive sleep apnea, status post ODALIS on 02/25/2022 to eliminate retro palatal and oropharyngeal obstruction. Continues to demonstrate sleep apnea related symptoms including choking at night - repeat sleep study and repeat sleep endoscopy - presumed residual base of tongue obstruction as previously seen on prior sleep endoscopy STOP-BANG Row Name 05/28/22 0969 History of sleep apnea? Yes dionne-intolerant of CPAP EXERCISE CAPACITY: 4-10 mets ALLERGIES: Patient has no known allergies. PREVIOUS ANESTHETIC EXPERIENCES AND INTUBATION HISTORY: No previous anesthetic complication FAMILY HISTORY OF ANESTHETIC COMPLICATIONS: Yes PAST MEDICAL HISTORY: Past Medical History: Diagnosis Date DIONNE (obstructive sleep apnea) PROBLEM LIST: Patient Active Problem List: DIONNE (obstructive sleep apnea) [G47.33] REVIEW OF SYSTEMS: Eyes/Ears: Eye Glasses ENT:Hx of UPPP Teeth Upper Denture, Lower partial, missing teeth Pulmonary: DIONNE Cardiovascular: HTN, HLD, denies SOB/wheezing/cough/nasal congestion/fever Gastrointestinal: Hx of cholecystectomy Renal/Genitourinary: Nephrolithiasis Musculoskeletal: Negative Endocrine: Thyroid disease Hematologic: Negative Neurologic: Migraines Psychiatric: Depression, Bipolar, and Anxiety Gynecologic:Menopausal Constitutional:Negative CBC (last 3 years, up to 5 values) None Basic Metabolic Panel None LFT's (last 3 years, up to 5 values) None No results found for: HBA1C PT/PTT/INR (last 3 years, up to 5 values) None Last ECG Date: 02/17/2022 Normal sinus rhythm Nonspecific T wave abnormality Abnormal ECG No previous ECGs available Confirmed by OLGA MONTES ([id number]) on 02/17/2022 9:51:58 PM Last Echocardiogram: none found going back to 06/17/2017 Last StressTest: none found going back to 06/17/2017 No Chest x-ray found No results found for: SARSCOV PAST SURGICAL HISTORY: Past Surgical History: Procedure Laterality Date CHOLECYSTECTOMY UVULOPALATOPHARYNGOPLASTY N/A 02/25/2022 Procedure: UVULOPALATOPHARYNGOPLASTY; Surgeon: Yi Moreno MD; Location: PERIOPERATIVE SERVICES; Service: Otolaryngology SOCIAL HISTORY: Social History Socioeconomic History Marital status: Unknown Tobacco Use Smoking status: Former Packs/day: 1.00 Years: 5.00 Pack years: 5.00 Types: Cigarettes Smokeless tobacco: Never Substance and Sexual Activity Alcohol use: Not Currently Drug use: Never CURRENT MEDICATION LIST: Current Outpatient Medications Medication Sig Dispense Refill acetaminophen (TYLENOL) 325 mg tablet Take 2 Tablets by mouth every 4 hours as needed. 30 Tablet 0 acetaminophen (Tylenol 8 Hour) 650 MG CR tablet Take 1 Tablet by mouth every 8 hours as needed for Pain or Fever. 30 Tablet 0 senna (SENOKOT) 8.6 MG tablet Take 1 Tablet by mouth daily as needed for Constipation. 30 Tablet 0 sucralfate (CARAFATE) 1 GM tablet Take 1 Tablet by mouth 4 times daily. 40 Tablet 3 methylPREDNISolone (MEDROL DOSEPAK) 4 mg tablet Please take according to instructions on container 21 Tablet 0 atorvastatin (LIPITOR) 20 mg tablet Take 20 mg by mouth. oxybutynin (DITROPAN) 5 MG tablet Take 5 mg by mouth. OLANZapine (ZyPREXA) 5 MG tablet Take 5 mg by mouth at bedtime. OLANZapine (ZyPREXA) 5 MG tablet Take by mouth. oxybutynin (DITROPAN) 5 MG tablet Take 5 mg by mouth 3 times daily as needed. levothyroxine (SYNTHROID) 25 MCG tablet TAKE 1 TABLET BY MOUTH EVERY DAY IN THE AM ON AN EMPTY STOMACH. DO NOT EAT OR DRINK FOR 2 HOURS AFTER TAKING norethindrone (MICRONOR) 0.35 MG tablet Take by mouth. clonazePAM (KlonoPIN) 1 MG tablet Take 1 mg by mouth every 12 hours as needed. atenolol (TENORMIN) 100 mg tablet Take 100 mg by mouth daily. venlafaxine (EFFEXOR XR) 75 MG ER capsule Take 75 mg by mouth daily. venlafaxine (EFFEXOR XR) 150 MG ER capsul (more content not included)... Normal [facility] Telephone Encounteron 2021 Pct Authentication Interface Message Text Patient is scheduled for DISE on 06/03/2022. Prefers to complete pre-op COVID testing closer to home. Instructed to obtain testing 48-72 hours prior to surgery and bring copy of results on day of surgery. PSE contact information provided. Normal [facility] Addendum Noteon 05-26-2022 Pct Authentication Interface Message Text Addended by: YI MORENO on: 05/26/2022 05:25 PM Modules accepted: Orders Normal [facility] Telephone Encounteron 2021 Pct Authentication Interface Message Text Arrangements to be made for pre-op COVID testing per ENT request. Normal [facility] MRI PITUITARY WO W CONon MRI PITUITARY WO W CON EXAMINATION: MRI PITUITARY WO W CON HISTORY: Blood chemistry abnormal COMPARISON: No relevant comparison available. TECHNIQUE: A variety of imaging planes and parameters were utilized for visualization of suspected pathology. Images were performed without and with 20 ml intravenous Dotarem contrast. FINDINGS: PITUITARY: Normal size for age and gender. No visible lesion of the pituitary, infundibulum, suprasellar cistern, or cavernous sinus. BRAIN: Limited views of the included areas are unremarkable. SINUSES: Limited views of the included areas demonstrate no significant mucosal thickening or fluid. ORBITS: Limited views are unremarkable. OTHER: Negative. IMPRESSION: Normal exam. No focal or enhancing pituitary mass Electronically authenticated by: WILEY POE Date: 2022-05-18 13:10 Normal [facility] US PELVIS AND TRANSVAGon US PELVIS AND TRANSVAG EXAMINATION: US PELVIS AND TRANSVAG HISTORY: Irregular periods COMPARISON: Ultrasound pelvis 10/08/2021 TECHNIQUE: Transabdominal and transvaginal sonographic examination. FINDINGS: UTERUS: Normal size and appearance. Uterus size: 7.1 x 4.60 3.7 cm ENDOMETRIUM: Normal homogeneous appearance. Endometrial thickness: 4 mm RIGHT OVARY: Normal size and appearance. Duplex Doppler demonstrates normal waveform and flow; resistive index 0.4. Ovary size: 2.6 x 2.4 x 1.0 cm LEFT OVARY: Contains a hypoechoic 11 x 11 x 4 mm structure, possibly a collapsing follicle. Duplex Doppler demonstrates normal waveform and flow; resistive index 0.6. Ovary size: 1.9 x 1.8 x 1.4 cm CUL-DE-SAC: Unremarkable. No significant free fluid. BLADDER: Unremarkable. OTHER: None. IMPRESSION: 1. No abnormal or suspicious findings to account for patient's symptoms. Electronically authenticated by: MADDI WINSTON Date: 2022-05-11 16:51 Normal [facility] ESTRADIOLon 05-08-2022 Estradiol 16.3 pg/mL Normal [facility] Comment on above: Result Comment: Adul t Female: Follicular phase 12.5 - 166.0 Ovulation phase 85.8 - 498.0 Luteal phase 43.8 - 211.0 Postmenopausal <6.0 - 54.7 1st trimester 215.0 - >4300.0 [facility] ECLIA methodology Performed By: #### C BC #### [facility] [address] [place] [address] Dr. Stephanie Gibbs FSHon 05-08-2022 FSH 11.3 mIU/mL Normal [facility] Comment on above: Result Comment: Adul t Female: Follicular phase 3.5 - 12.5 Ovulation phase 4.7 - 21.5 Luteal phase 1.7 - 7.7 Postmenopausal 25.8 - 134.8 Performed By: #### C BC #### [facility] [address] [place] [address] Dr. Stephanie Gibbs LUTEINIZING HORMONE (LH)on 0 05-08-2022 LH 4.7 mIU/mL Normal [facility] Comment on above: Result Comment: Adul t Female: Follicular phase 2.4 - 12.6 Ovulation phase 14.0 - 95.6 Luteal phase 1.0 - 11.4 Postmenopausal 7.7 - 58.5 Performed By: #### L BCLH #### [facility] [address] [place] [address] Dr. Stephanie Gibbs PROGESTERONEon 05-08-2022 Progesterone 0.2 ng/mL Normal [facility] Comment on above: Result Comment: Foll icular phase 0.1 - 0.9 Luteal phase 1.8 - 23.9 Ovulation phase 0.1 - 12.0 First trimester 11.0 - 44.3 Second trimester 25.4 - 83.3 Third trimester 58.7 - 214.0 Postmenopausal 0.0 - 0.1 Performed By: #### P ROGES #### [facility] [address] [place] [address] Dr. Stephanie Gibbs PROLACTINon 05-08-2022 Prolactin 43.0 ng/mL Critically high 4.8-23.[address] [facility] Comment on above: Performed By: #### F T4 #### [facility] [address] [place] [address] Dr. Stephanie Gibbs CBC AUTO DIFFon 05-07-2022 BASO # 0.1 103/ul Normal 0.0-0.1 [facility] Comment on above: Performed By: #### C BC #### [facility] [address] [place] [address] Dr. Stephanie Gibbs Basophils/100 WBC (Bld) 1.0 % Normal 0.2-2.0 [facility] Comment on above: Performed By: #### C BC #### [facility] [address] [place] [address] Dr. Stephanie Gibbs EO # 0.2 103/ul Normal 0.0-0.7 [facility] Comment on above: Performed By: #### C BC #### [facility] [address] [place] [address] Dr. Stephanie Gibbs Eosinophils/100 WBC (Bld) 2.7 % Normal 0.9-7.0 [facility] Comment on above: Performed By: #### C BC #### [facility] [address] [place] [address] Dr. Stephanie Gibbs Erythrocyte distribution width (RBC) [Ratio] 13.0 % Normal 11.0-15.0 [facility] Comment on above: Performed By: #### C BC #### [facility] [address] [place] [address] Dr. Stephanie Gibbs Hematocrit (Bld) [Volume fraction] 39.0 % Normal 36.0-48.0 [facility] Comment on above: Performed By: #### C BC #### [facility] [address] [place] [address] Dr. Stephanie Gibbs Hemoglobin (Bld) [Mass/Vol] 13.0 g/dL Normal 12.0-16.0 [facility] Comment on above: Performed By: #### C BC #### [facility] [address] [place] [address] Dr. Stephanie Gibbs IG # 0.03 10e3/ul Normal 0.00-0.03 [facility] Comment on above: Performed By: #### C BC #### [facility] [address] [place] [address] Dr. Stephanie Gibbs IG % 0.4 % Normal 0.0-0.5 [facility] Comment on above: Performed By: #### C BC #### [facility] [address] [place] [address] Dr. Stephanie Gibbs LYMPH # 2.4 103/ul Normal 1.2-3.8 [facility] Comment on above: Performed By: #### C BC #### [facility] [address] [place] [address] Dr. Stephanie Gibbs Lymphocytes/100 WBC (Bld) 33.8 % Normal 20.5-60.0 [facility] Comment on above: Performed By: #### C BC #### [facility] [address] [place] [address] Dr. Stephanie Gibbs MANUAL DIFF REQ NO Normal [facility] Comment on above: Performed By: #### C BC #### [facility] [address] [place] [address] Dr. Stephanie Gibbs MCH (RBC) [Entitic mass] 32.2 pg Normal 26.7-34.0 [facility] Comment on above: Performed By: #### C BC #### [facility] [address] [place] [address] Dr. Stephanie Gibbs MCHC (RBC) [Mass/Vol] 33.3 g/dL Normal 29.9-35.2 [facility] Comment on above: Performed By: #### C BC #### [facility] [address] [place] [address] Dr. Stephanie Gibbs MCV (RBC) [Entitic vol] 96.5 fL Normal 81.0-99.0 [facility] Comment on above: Performed By: #### C BC #### [facility] [address] [place] [address] Dr. Stephanie Gibbs MONO # 0.4 103/ul Normal 0.3-0.8 [facility] Comment on above: Performed By: #### C BC #### [facility] [address] [place] [address] Dr. Stephanie Gibbs Monocytes/100 WBC (Bld) 5.9 % Normal 1.7-12.0 [facility] Comment on above: Performed By: #### C BC #### [facility] [address] [place] [address] Dr. Stephanie Gibbs NEUT # 4.0 103/ul Normal 1.4-6.5 [facility] Comment on above: Performed By: #### C BC #### [facility] [address] [address] [address] Stephanie Gibbs Neutrophils/100 WBC (Bld) 56.2 % Normal 43.0-75.0 [facility] Comment on above: Performed By: #### C BC #### [facility] [address] [address] [address] Stephanie Gibbs Platelet mean volume (Bld) [Entitic vol] 9.8 fL Normal 9.5-13.5 [facility] Comment on above: Performed By: #### C BC #### [facility] [address] [address] [address] Stephanie Gibbs PLT 245 103/ul Normal 150-450 [facility] Comment on above: Performed By: #### C BC #### [facility] [address] [place] [address] Dr. Stepahnie Gibbs RBC 4.04 106/ul Critically low 4.20-5.40 [facility] Comment on above: Performed By: #### C BC #### [facility] [address] [address] [address] Stephanie Gibbs WBC 7.2 103/ul Normal 4.0-11.0 [facility] Comment on above: Performed By: #### C BC #### [facility] [address] [place] [address] Dr. Stephanie Gibbs FREE T4on 05-07-2022 Free T4 [Mass/Vol] 0.69 ng/dL Critically low 0.76-1.46 [facility] Comment on above: Performed By: #### C BC #### [facility] [address] [place] [address] Dr. Stephanie Gibbs GLYCOHEMOGLOBIN A1Con 2021 ADA RECOMMENDATION SEE BELOW Normal [facility] Comment on above: Result Comment: ADA RECOMMENDED LIMIT 4.0 - 6.0 ADA THERAPEUTIC TARGET < 7.0 ACTION SUGGESTED > 7.0 Performed By: #### C BC #### [facility] [address] [place] [address] Dr. Stephanie Gibbs Glucose [Mass/Vol] 128 mg/dL Normal [facility] Comment on above: Performed By: #### C BC #### [facility] [address] [address] [address] Stephanie Gibbs HbA1c (Bld) [Mass fraction] 6.1 % Normal 4.5-6.2 [facility] Comment on above: Performed By: #### C BC #### [facility] [address] [address] [address] Stephanie Gibbs TSHon 05-07-2022 TSH 2.391 uIU/mL Normal 0.358-3.74 0 [facility] Comment on above: Performed By: #### F T4 #### [facility] [address] [address] [address] Stephanie Gibbs Progress Noteson 03-29-2022 Pct Authentication Interface Message Text .Documentation: Mode: Telephone Patient Home Phone: Patient Patient Cell Preferred phone: [phone] Consent: I confirmed patient understanding of the risks and benefits of telehealth visits and obtained consent to proceed with the telehealth visit. Location of Patient: Home of patient CC: sleep disordered breathing Referred by: Dr Mcmanus HPI: History of obstructive sleep apnea, preoperative AHI 63 with O2 carlene 64% .CPAP intolerance, symptomatic. Surgical route recommended Multilevel upper airway obstruction including oropharynx and base of tongue diagnosed per sleep endoscopy Staged multilevel upper airway procedure recommended. Of note, patient is edentulous 02/25/2022-expansion sphincter pharyngoplasty Interval history: Postoperative pain mostly resolved. Lost about 10-15 lb after surgery Continues to be unable to tolerate CPAP because of significant discomfort caused by mask and she continues to be symptomatic with daytime fatigue, snoring and choking at night. Assessment and plan: History of very severe obstructive sleep apnea, status post ODALIS on 02/25/2022 to eliminate retro palatal and oropharyngeal obstruction. Continues to demonstrate sleep apnea related symptoms including choking at night - repeat sleep study and repeat sleep endoscopy - presumed residual base of tongue obstruction as previously seen on prior sleep endoscopy Normal [facility] FREE T4on 03-09-2022 Free T4 [Mass/Vol] 1.08 ng/dL Normal 0.76-1.46 [facility] Comment on above: Performed By: #### F T4 #### [facility] [address] [address] [address] Stephanie Gibbs LIPID PROFILEon 03-09-2022 CHOL-HDL RATIO NORM SEE BELOW Normal [facility] Comment on above: Result Comment: 3.3 - 4.4 LOW RISK 4.4 - 7.1 AVERAGE RISK 7.1 - 11.0 MODERATE RISK >11.0 HIGH RISK Performed By: #### F T4 #### [facility] [address] [address] [address] Stephanie Gibbs Cholesterol [Mass/Vol] 205 mg/dL Critically high <=200 [facility] Comment on above: Performed By: #### F T4 #### [facility] [address] [address] [address] Stephanie Gibbs Cholesterol in HDL [Mass/Vol] 44 mg/dL Normal 40-60 [facility] Comment on above: Performed By: #### F T4 #### [facility] [address] [address] [address] Stephanie Gibbs Cholesterol in LDL [Mass/Vol] 126.6 mg/dL Normal [facility] Comment on above: Performed By: #### F T4 #### [facility] [address] [address] [address] Stephanie Gibbs Cholesterol.total/C holesterol in HDL [Mass ratio] 4.7 {ratio} Normal [facility] Comment on above: Performed By: #### F T4 #### [facility] [address] [address] [address] Stephanie Gibbs HDL NORMAL > or = 60 mg/dl - LO W CARDIOVASCULAR RISK <40 mg/dl - HIGH CARDIOVASCULAR RISK Normal [facility] Comment on above: Performed By: #### F T4 #### [facility] [id number] Stephanie Gibbs LDL CALC NORMAL SEE BELOW Normal [facility] Comment on above: Result Comment: <100 mg/dl OPTIMAL 100 - 129 mg/dl NEAR OR ABOVE OPTIMAL 130 - 159 mg/dl BORDERLINE HIGH 160 - 189 mg/dl HIGH >190 mg/dl VERY HIGH Performed By: #### F T4 #### [facility] [address] [place] [address] Dr. Stephanie Gibbs Triglyceride [Mass/Vol] 172 mg/dL Critically high <=150 [facility] Comment on above: Performed By: #### F T4 #### [facility] [address] [place] [address] Dr. Stephanie Gibbs VLDL CALC 34.4 mg/dL Normal [facility] Comment on above: Performed By: #### F T4 #### [facility] [address] [place] [address] Dr. Stephanie Gibbs PROF 14(COMP METB)on 022 Albumin [Mass/Vol] 3.7 g/dL Normal 3.4-5.0 [facility] Comment on above: Performed By: #### F T4 #### [facility] [address] [place] [address] Dr. Stephanie Gibbs Albumin/Globulin [Mass ratio] 0.8 {ratio} Normal [facility] Comment on above: Performed By: #### F T4 #### [facility] [address] [place] [address] Dr. Stephanie Gibbs ALP [Catalytic activity/Vol] 121 U/L Critically high 46-116 [facility] Comment on above: Performed By: #### F T4 #### [facility] [address] [place] [address] Dr. Stephanie Gibbs ALT [Catalytic activity/Vol] 39 U/L Normal 14-59 [facility] Comment on above: Performed By: #### F T4 #### [facility] [address] [place] [address] Dr. Stephanie Gibbs Anion gap [Moles/Vol] 12.6 mmol/L Normal [facility] Comment on above: Performed By: #### F T4 #### [facility] [address] [place] [address] Dr. Stephanie Gibbs AST [Catalytic activity/Vol] 21 U/L Normal 15-37 [facility] Comment on above: Performed By: #### F T4 #### [facility] [address] [place] [address] Dr. Stephanie Gibbs Bilirubin [Mass/Vol] 0.4 mg/dL Normal 0.2-1.0 [facility] Comment on above: Performed By: #### F T4 #### [facility] [address] [place] [address] Dr. Stephanie Gibbs Calcium [Mass/Vol] 9.1 mg/dL Normal 8.5-10.1 [facility] Comment on above: Performed By: #### F T4 #### [facility] [address] [address] [address] Stephanie Gibbs Chloride [Moles/Vol] 102 mmol/L Normal 98-107 [facility] Comment on above: Performed By: #### F T4 #### [facility] [address] [place] [address] Dr. Stephanie Gibbs CO2 [Moles/Vol] 28.1 mmol/L Normal 21.0-32.0 [facility] Comment on above: Performed By: #### F T4 #### [facility] [address] [place] [address] Dr. Stephanie Gibbs Creatinine [Mass/Vol] 0.95 mg/dL Normal 0.55-1.02 [facility] Comment on above: Performed By: #### F T4 #### [facility] [address] [place] [address] Dr. Stephanie Gibbs EGFR-AF SRI LANKAN >60 Normal >=60 [facility] Comment on above: Performed By: #### F T4 #### [facility] [address] [place] [address] Dr. Stephanie Gibbs EGFR-NON AF SRI LANKAN >60 Normal >=60 [facility] Comment on above: Performed By: #### F T4 #### [facility] [address] [place] [address] Dr. Stephanie Gibbs Globulin (S) [Mass/Vol] 4.8 g/dL Normal [facility] Comment on above: Performed By: #### F T4 #### [facility] [address] [place] [address] Dr. Stephanie Gibbs Glucose [Mass/Vol] 106 mg/dL Normal 74-106 [facility] Comment on above: Performed By: #### F T4 #### [facility] [address] [address] [address] Stephanie Gibbs Potassium [Moles/Vol] 3.7 mmol/L Normal 3.5-5.1 [facility] Comment on above: Performed By: #### F T4 #### [facility] [address] [address] [address] Stephanie Gibbs Protein [Mass/Vol] 8.5 g/dL Critically high 6.4-8.2 [facility] Comment on above: Performed By: #### F T4 #### [facility] [address] [address] [address] Stephanie Gibbs Sodium [Moles/Vol] 139 mmol/L Normal 136-145 [facility] Comment on above: Performed By: #### F T4 #### [facility] [address] [address] [address] Stephanie Gibbs Urea nitrogen [Mass/Vol] 14.0 mg/dL Normal 7.0-18.0 [facility] Comment on above: Performed By: #### F T4 #### [facility] [address] [address] [address] Stephanie Gibsb Urea nitrogen/Creatinine [Mass ratio] 14.7 mg/mg Normal [facility] Comment on above: Performed By: #### F T4 #### [facility] [id number] Stephanie Gibbs TSHon 03-09-2022 TSH 0.446 uIU/mL Normal 0.358-3.74 0 [facility] Comment on above: Performed By: #### F T4 #### [facility] [id number] Stephanie Gibbs Telephone Encounteron 2021 Pct Authentication Interface Message Text Patient calling in checking on status of [employer] FMLA paperwork. I let her know I have it to the nurse last week and we are working on it. Patient also asking for letter to be typed up for her to return to work on 03/15. Cara- Are you able to put letter together for her and then I will email to patient. Also can you verify you have her FMLA paperwork? Patient states deadline to turn it in is 03/19/22. #: [phone] Normal [facility] Care Plan Noteon 02-26-2022 Pct Authentication Interface Message Text Problem: Routine Care: Goal: Patient care will be managed and maintained throughout hospital stay per unit specific routine care procedure Outcome: Adequate for Discharge Problem: Acute Pain: Goal: Ability to identify pain intensity on a pain scale and rate it consistently will be achieved and maintained Outcome: Adequate for Discharge Goal: Understanding of proper administration and use of medicines will be achieved Outcome: Adequate for Discharge Goal: Acceptable level of pain which allows the patient to achieve functional outcome goals Outcome: Adequate for Discharge Goal: Ability to identify factors that manage or decrease pain will be achieved Outcome: Adequate for Discharge Problem: Alteration in Respiratory Status: Goal: Achieve Optimal Respiratory Status with Minimal Ventilatory/Oxygen Support Outcome: Adequate for Discharge Goal: Ability to maintain a clear airway will improve Outcome: Adequate for Discharge Goal: Trach decannulation will be safely managed Outcome: Adequate for Discharge Problem: Impaired Skin Integrity: Goal: Acheive wound healing without signs and symptoms of infection Outcome: Adequate for Discharge Goal: Skin integrity will improve and/or be maintained Outcome: Adequate for Discharge Goal: Skin integrity will improve and/or be maintained- /Peds Outcome: Adequate for Discharge Problem: Alteration in Tissue Perfusion: Cardiac: Goal: Promote adequate perfusion and limit complications resulting from myocardial oxygen supply, demand and imbalance Outcome: Adequate for Discharge Problem: Risk for Infection: Goal: Risk for infection will be reduced Outcome: Adequate for Discharge Problem: Altered Nutrition: Goal: Achieve developmentally appropriate nutritional intake as clinically indicated Outcome: Adequate for Discharge Goal: Demonstrates progression toward an optimal weight Outcome: Adequate for Discharge Problem: Altered Elimination: Goal: Establishment of normal bowel function will be achieved and maintained Outcome: Adequate for Discharge Goal: Establishment of individualized bowel routine will be obtained Outcome: Adequate for Discharge Problem: VTE Prophylaxis: Goal: Will be free of DVT Outcome: Adequate for Discharge Problem: Safety: Goal: Patient will remain free of falls during hospital stay Outcome: Adequate for Discharge Goal: Free from injury during hospitalization Outcome: Adequate for Discharge Problem: Discharge Planning: Goal: Discharge needs of the adult patient will be met Outcome: Adequate for Discharge Goal: Discharge needs of the pediatric patient will be met Outcome: Adequate for Discharge Goal: Discharge needs of the patient will be met Outcome: Adequate for Discharge Normal [employer] Pct Authentication Interface Message Text Problem: Routine Care: Goal: Patient care will be managed and maintained throughout hospital stay per unit specific routine care procedure Outcome: Progressing Problem: Acute Pain: Goal: Ability to identify pain intensity on a pain scale and rate it consistently will be achieved and maintained Outcome: Progressing Goal: Understanding of proper administration and use of medicines will be achieved Outcome: Progressing Goal: Acceptable level of pain which allows the patient to achieve functional outcome goals Outcome: Progressing Goal: Ability to identify factors that manage or decrease pain will be achieved Outcome: Progressing Problem: Alteration in Respiratory Status: Goal: Achieve Optimal Respiratory Status with Minimal Ventilatory/Oxygen Support Outcome: Progressing Goal: Ability to maintain a clear airway will improve Outcome: Progressing Goal: Trach decannulation will be safely managed Outcome: Progressing Problem: Impaired Skin Integrity: Goal: Acheive wound healing without signs and symptoms of infection Outcome: Progressing Goal: Skin integrity will improve and/or be maintained Outcome: Progressing Goal: Skin integrity will improve and/or be maintained- /Peds Outcome: Progressing Problem: Alteration in Tissue Perfusion: Cardiac: Goal: Promote adequate perfusion and limit complications resulting from myocardial oxygen supply, demand and imbalance Outcome: Progressing Problem: Risk for Infection: Goal: Risk for infection will be reduced Outcome: Progressing Problem: Altered Nutrition: Goal: Achieve developmentally appropriate nutritional intake as clinically indicated Outcome: Progressing Goal: Demonstrates progression toward an optimal weight Outcome: Progressing Problem: Altered Elimination: Goal: Establishment of normal bowel function will be achieved and maintained Outcome: Progressing Goal: Establishment of individualized bowel routine will be obtained Outcome: Progressing Problem: VTE Prophylaxis: Goal: Will be free of DVT Outcome: Progressing Problem: Safety: Goal: Patient will remain free of falls during hospital stay Outcome: Progressing Goal: Free from injury during hospitalization Outcome: Progressing Problem: Discharge Planning: Goal: Discharge needs of the adult patient will be met Outcome: Progressing Goal: Discharge needs of the pediatric patient will be met Outcome: Progressing Goal: Discharge needs of the patient will be met Outcome: Progressing Normal [facility] [employer] Anesthesia Attestationon Pct Authentication Interface Message Text Anesthesia Attestation ATTESTATION OF INFORMED CONSENT FOR ANESTHESIA Anesthesia options were discussed with the patient and/or legal dermatology sales representative. The risks, benefits and alternatives were reviewed. Questions regarding anesthesia were answered. Patient and/or legal dermatology sales representative knows such anesthetics and procedures may be performed by Resident physicians, Certified Anesthesiologist Assistants, or Certified Nurse Anesthetists under the supervision of a physician. 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 Normal [facility] [employer] [facility] Anesthesia Postprocedure Lauren luationon 02-25-2022 Pct Authentication Interface Message Text Anesthesia Postoperative Assessment: Vital Signs (most recent): BP 113/79 Pulse 107 Temp 36.8 ???C (98.3 ???F) (Axillary) Resp 23 Ht 5' 2 (1.575 m) Wt 180 lb (81.6 kg) LMP (LMP Unknown) SpO2 93% BMI 32.92 kg/m??? Anesthesia Post Evaluation Patient location during evaluation: PACU Patient participation: complete - patient participated Level of consciousness: awake and alert Pain score: 6 Pain management: satisfactory to patient Airway patency: patent Cardiovascular status: acceptable Respiratory status: acceptable Hydration status: normal PONV: No nausea/vomiting reported I was personally responsible for performing the postop evaluation. ANESTHESIA COMPLICATIONS: No complications documented. 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 Neuro/Psych (+) depression, anxiety/panic attacks, Cardiovascular (+) hypertension, Surgical risk: intermediate; Cardiac condition: minor and stable ECG reviewed GI/Hepatic/Renal - negative ROS Heme/Other - negative ROS Other ROS: Recent ESWL for kidney stone Physical Exam Airway Mallampati: III TM distance: Adequate Micrognathia: Not present Jaw opening: Adequate Neck flexion: Adequate Dental PE (+) upper dentures and missing teeth (lower partial) Pulmonary - pulmonary exam normal Comment: Chest clear to auscultation bilaterally Cardiovascular - cardiovascular exam normal Comment: RRR with S1S2; no murmurs, gallops, or rubs Neuro - neurological exam normal Comment: Awake, alert, oriented, No motor deficits and sensation grossly intact Plan Anesthesia plan: general (ETT) Medications may include (but not limited to): anxiolytics, narcotic analgesics, IV hypnotics, neuromuscular blockers and inhalational analgesics Pain management: May include (but not limited to): anxiolytics and narcotic analgesics Anesthesia risks / alternatives discussed pre-op Questions answered / anesthesia plan accepted Past medical history, surgical history, allergies, and medications reviewed. Pertinent laboratory tests, EKG, imaging, and consults reviewed and I have personally seen and evaluated the patient, repeating ulloa portions of the history and physical examination. Normal [facility] Anesthesia Transfer Of Careo n 02-25-2022 Pct Authentication Interface Message Text Patient taken to PACU. Patient was awake, comfortable and stable on arrival. Anesthesia Transfer of Care Note Past Medical History: No past medical history on file. Sleep Apnea/Positive STOP-BANG: Yes Problem List: Patient Active Problem List: DIONNE (obstructive sleep apnea) [G47.33] Past Surgical History: There is no previous surgical history on file. Allergies: Patient has no known allergies. Basic Operating Room Facts: Surgeon(s): Yi Moreno MD Anesthesiologist: Maite Youssef MD CAA: Mariaa Meneses CAA RUBBER MIXER: Cari Hurtado APRN-KOBI Medicaid Analyst: Carol Barrera MD Anesthesia Student: Prema Norris UVULOPALATOPHARYNGOPLASTY (N/A Mouth) Intraoperative Events: No acute event ASA: 3 EBL: 20 mL Urine Not documented Lactated Ringers and NaCl 0.9%: Fluid Totals (Filter: LR and NaCl 0.9% Medications Shown) Medication Calculated Total Lactated Ringers 1,000 mL / 1 bag Cell Saver: Not documented Blood Volume Values: Blood Products None MTP Blood: MTP PRBC: Not documented MTP FFP: Not documented MTP PLT: Not documented MTP Cryo: Not documented MTP Whole Blood: Not documented Current Vasoactive Medications: {Vasoactive Medications: None Lines, Drains, Airways Airway Insertion Details [REMOVED] Advanced Airway: ETT, Oral #6 (Removed) 02/25/22 0955 Pre-Oxygenation/ Induction: Mask Rapid Sequence Induction?: Mask Ventilation: Easy;w/oral airway Blade size: S3 Visualization: Grade 1 Airway Type: ETT, Oral Airway Size: #6 Post Insertion Assessment: Confirmation: Equal bilateral breath sounds, CO2 confirmed # Attempts >1: Special Equipment: Glidescope Present on Admission?: Previously Removed / Not Present: Removal Reason: Not Removed at Discharge: Removed 02/25/22 1042 Location (cm) 20 02/25/22 1009 Measured from: Lips 02/25/22 1009 Secured via: Taped 02/25/22 1009 Site Assessment WNL 02/25/22 1009 All non-working IVs have been removed: N/A Laboratory Data: CBC (last 3 years, up to 5 values) None Basic Metabolic Panel None Basic Metabolic Panel None No results found for: INR No result for BNP LFT's (last 3 years, up to 5 values) None Arterial Blood Gases None Hand off Completed: Yes 1. The patient was identified. 2. Pertinent medical history was relayed. 3. A brief discussion was had about any pertinent surgical/ procedural issues. 4. Intraoperative/ anesthetic management issue and concerns were discussed. 5. Plans for the early post-operative period relayed. 6. An opportunity for questions and acknowledgment of understanding of the report was received. Cari Hurtado APRN-KOBI Normal [facility] [employer] [facility] Blood Attestationon 02-26-20 Pct Authentication Interface Message Text Blood Attestation ATTESTATION OF INFORMED CONSENT FOR BLOOD The transfusion of blood and/or blood components were discussed with the patient and/or legal dermatology sales representative. The risks, benefits and alternatives were reviewed. Questions regarding blood transfusions were answered. The patient /or the patient's legal dermatology sales representative agree with the plan for transfusion of blood and/or blood components. Normal [employer] [facility] Brief Operative Noteon 02-25 Pct Authentication Interface Message Text Brief Operative Note MAIN OR 11 Isabelle Hewitt 46 year old female Surgical Contact Serial Number: [id number] Preoperative Diagnosis: DIONNE (obstructive sleep apnea) [G47.33] Postoperative Diagnosis: * DIONNE (obstructive sleep apnea) [G47.33] Procedures: Surgical CPTs Procedures * PALATOPHARYNGOPLASTY No data filed Surgeon(s): Surgeon(s): Yi Moreno MD Staff: Scrub: Wiley Álvarez Carton Filling Machine Operator Nurse: Mariaa Briseno; Dulce Allred; Babs Wells RN Canine Enforcement Officer: Yi Piña MD; Unruly Biggs MD Anesthesia: Consult Anesthesiologist: Maite Youssef MD CAA: Mariaa Meneses CAA RUBBER MIXER: Cari Hurtado APRN-KOBI Medicaid Analyst: Carol Barrera MD Anesthesia Student: Prema Norris Specimen(s): ID Type Source Tests Collected by Time Destination 1 : Tissue Tonsil, Left SPECIMEN FOR SURGICAL PATH Yi Moreno MD 02/25/2022 1017 2 : Tissue Tonsil, Right SPECIMEN FOR SURGICAL PATH Yi Moreno MD 02/25/2022 1017 Estimated Blood Loss: less than 5 cc Lines/Drains: * No LDAs found * Findings: Normal Complications: None Status at end of surgery: Stable Activity: Ad Beata and Surgical wound class: No wound. Patient Class: Planned Extended Recovery. Is this a patient scheduled as an outpatient that needs to be admitted as an inpatient? No was present in the OR for the critical portion of the procedure and procedure sign-out. Signed by Yi Moreno MD 02/25/2022 10:40 AM Normal [facility] [employer] [facility] Care Plan Noteon 02-25-2022 Pct Authentication Interface Message Text Problem: Routine Care: Goal: Patient care will be managed and maintained throughout hospital stay per unit specific routine care procedure Outcome: Progressing Problem: Acute Pain: Goal: Ability to identify pain intensity on a pain scale and rate it consistently will be achieved and maintained Outcome: Progressing Goal: Understanding of proper administration and use of medicines will be achieved Outcome: Progressing Goal: Acceptable level of pain which allows the patient to achieve functional outcome goals Outcome: Progressing Goal: Ability to identify factors that manage or decrease pain will be achieved Outcome: Progressing Problem: Alteration in Respiratory Status: Goal: Achieve Optimal Respiratory Status with Minimal Ventilatory/Oxygen Support Outcome: Progressing Goal: Ability to maintain a clear airway will improve Outcome: Progressing Goal: Trach decannulation will be safely managed Outcome: Progressing Problem: Impaired Skin Integrity: Goal: Acheive wound healing without signs and symptoms of infection Outcome: Progressing Goal: Skin integrity will improve and/or be maintained Outcome: Progressing Goal: Skin integrity will improve and/or be maintained- /Peds Outcome: Progressing Problem: Alteration in Tissue Perfusion: Cardiac: Goal: Promote adequate perfusion and limit complications resulting from myocardial oxygen supply, demand and imbalance Outcome: Progressing Problem: Risk for Infection: Goal: Risk for infection will be reduced Outcome: Progressing Problem: Altered Nutrition: Goal: Achieve developmentally appropriate nutritional intake as clinically indicated Outcome: Progressing Goal: Demonstrates progression toward an optimal weight Outcome: Progressing Problem: Altered Elimination: Goal: Establishment of normal bowel function will be achieved and maintained Outcome: Progressing Goal: Establishment of individualized bowel routine will be obtained Outcome: Progressing Problem: VTE Prophylaxis: Goal: Will be free of DVT Outcome: Progressing Problem: Safety: Goal: Patient will remain free of falls during hospital stay Outcome: Progressing Goal: Free from injury during hospitalization Outcome: Progressing Problem: Discharge Planning: Goal: Discharge needs of the adult patient will be met Outcome: Progressing Goal: Discharge needs of the pediatric patient will be met Outcome: Progressing Goal: Discharge needs of the patient will be met Outcome: Progressing Normal [employer] OP Noteon 02-25-2022 Pct Authentication Interface Message Text [id number] Isabelle Hewitt 1975 @PATFNAME@ @PATIENTLASTNAME@ [id number] Preoperative diagnosis: 1. Obstructive sleep apnea 2. Pharyngeal stenosis Postoperative diagnosis: Same Procedure: 1. Expansion sphincter pharyngo-plasty 2. Tonsillectomy Surgeon: Yi Pino. Surgeons: Arturo biggs Anesthesia: Gen. Indication: Patient with obstructive sleep apnea and CPAP intolerance, who was found to have a oral pharyngeal/retro-palatal obstruction. Above procedure recommended to improve this obstruction Findings: +3 Tonsils with narrowed oropharyngeal airway. Procedure Mouth gag was inserted. Oropharynx and palate exposed. Tonsils if present were removed by performing a capsular excision using a Bovie as well as a suction cautery for hemostasis as needed with very minimal bleeding occurring. The velopharyngeal muscle on the right side was now dissected out by releasing it inferiorly and the retro-dissecting it proximally towards the soft palate using cautery but only sharp scissors along the medial aspect to release it from the mucosa. Careful dissection was carried up superiorly until the ideal pivot point of the muscle flap was identified that led to a expansion of the oral pharyngeal airway with anterior movement of the soft palate. The elevated muscle flap was now rotated and tunneled through the lateral palatal area where it was secured to the sphenomandibular ligament with a 2-0 Vicryl suture. The tunnel had been created by performing a Bovie incision lateral to the ligament and by using a tonsil instrument from lateral and medial direction. The identical procedure was now performed on the contralateral left side by releasing the muscle flap and pexing it to the sphenomandibular ligament. At this point the oropharyngeal segment was markedly expanded and stabilized. The palate appeared to be still somewhat elongated and there was persistent concern for anterior to posterior obstruction. I therefore decided to make 2 cuts, using the Bovie instrument, para old to the uvula base which were extended into the palate by about 5 mm. A small wedge of tissue including glandular elements was now excised next to the uvula base and the incision closed with 3-0 chromic sutures. This led to further enlargement of the retropalatal airway and anterior to posterior direction. At this point we irrigated the oral cavity with saline and no bleeding was noted.. The patient was then extubated and taken back to recovery in stable condition. Normal [facility] [employer] [facility] Progress Noteson 02-25-2022 Pct Authentication Interface Message Text No excessive swallowing. No nausea. No active bleeding in oral cavity. Small amount blood tinged sputum. Attempted to update family in [place], No one here at present time 1300 ENT resident at bedside and assessed pt. Verified that pt may go to regular nursing floor and not SSD. Pt resting comfortably. 1455 Pt wants to get up to chair, States she is feeling antsy . Assisted up to chair, Gait steady. Skin with no areas of redness. Normal [facility] [employer] [facility] URINE HCG-IN OFFICEon 2021 HCG ( test) Ql (U) Negative Negative [facility] Interpretation and review of laboratory results Normal [facility] Negative Internal Control Negative Negative [facility] Positive Internal Control Positive Positive [facility] Telephone Encounteron 2021 Pct Authentication Interface Message Text PSE received pre-op COVID test results - NOT DETECTED on 02/23/2022. Document scanned into [employer]. Normal [facility] [employer] [facility] Covid-19 PCR (CVDTB)on SARS-CoV-2 (COVID-19) RNA JOHNNIE+probe Ql (Unsp spec) Not detected Normal NOT DETECTED [facility] Comment on above: Result Comment: When diagnostic testing is negative, the possibility of a false negative should be considered in the context of a patient's recent exposures and the presence of clinical signs and symptoms consistent with SARS-CoV-2. This test is not yet approved or cleared by the [place] FDA. When there are no FDA-approved or cleared tests available, and other criteria are met, FDA can make tests available under an emergency access mechanism called an Emergency Use Authorization (EUA). The EUA for this test is supported by the [place] of Health and Human Service's declaration that circumstances exist to justify the emergency use of in vitro diagnostics for the detection and/or diagnosis of the virus that causes COVID-19. This EUA will remain in effect for the duration of the COVID-19 declaration justifying emergency of IVDs, unless it is terminated or revoked by the FDA (after which the test may no longer be used). Performed By: #### C #### [facility] [address] [place] [address] Dr. Stephanie Gibbs XR ABDOMEN (KUB) (SINGLE AP VIEW)on 02-19-2022 Nonobstructive bowel gas pattern, large colonic fecal Stable left nephrolithiasis [facility] RIS CONSOLIDATED EXAMINATION: ONE SUPINE XRAY VIEW(S) OF THE ABDOMEN 02/19/2022 1:06 pm COMPARISON: December 22, 2021 KUB HISTORY: ORDERING SYSTEM PROVIDED HISTORY: Ureteral stone TECHNOLOGIST PROVIDED HISTORY: ureteral stone s/p HLL FINDINGS: Previous cholecystectomy. There is gas throughout the GI tract to the sigmoid colon with a large colonic fecal burden without significant large or small bowel distension or indirect findings to suggest free air There are degenerative changes of the lumbar spine/hips. No aggressive bony lesion Right renal assessment is limited by overlying fecal filled colon. There is revisualization of a 3-4 mm calcification projected over the left upper to mid kidney. The remainder of the left kidney is difficult to evaluate related to overlying fecal filled bowel. There are no other definite urinary tract or other significant calcifications [facility] RIS CONSOLIDATED Adali Gill M D - 02/19/2022 EXAMINATION: ONE SUPINE XRAY VIEW(S) OF THE ABDOMEN 02/19/2022 1:06 pm COMPARISON: December 22, 2021 KUB HISTORY: ORDERING SYSTEM PROVIDED HISTORY: Ureteral stone TECHNOLOGIST PROVIDED HISTORY: ureteral stone s/p HLL FINDINGS: Previous cholecystectomy. There is gas throughout the GI tract to the sigmoid colon with a large colonic fecal burden without significant large or small bowel distension or indirect findings to suggest free air There are degenerative changes of the lumbar spine/hips. No aggressive bony lesion Right renal assessment is limited by overlying fecal filled colon. There is revisualization of a 3-4 mm calcification projected over the left upper to mid kidney. The remainder of the left kidney is difficult to evaluate related to overlying fecal filled bowel. There are no other definite urinary tract or other significant calcifications IMPRESSION: Nonobstructive bowel gas pattern, large colonic fecal Stable left nephrolithiasis inexio Phone: Radiology Study observation (narrative) inexio Phone: XR ABDOMEN (KUB) (SINGLE AP VIEW)Ordered By: Adali Gill on 02-19-2022 inexio Phone: EKG 12 LEAD - PERFORMon 01-21 Diagnosis Normal sinus rhythm Nonspecific T wave abnormality Abnormal ECG No previous ECGs available Confirmed by OLGA MONTES ([id number]) on 02/17/2022 9:51:58 PM [facility] P wave Atrium by EKG 72 BPM [facility] P wave axis 9 degrees [facility] P-R Interval 154 ms [facility] Q-T interval 416 ms [facility] Q-T interval corrected 455 ms [facility] QRS axis 10 degrees [facility] QRS duration 78 ms [facility] T wave axis 39 degrees [facility] Telephone Encounteron 2021 SARS-CoV-2 (COVID-19) RNA JOHNNIE+probe Ql (Unsp spec) Patient is scheduled for surgery 02/25/2022. Prefers to complete pre-op COVID testing closer to home. Instructed to obtain testing 48-72 hours prior to surgery and bring copy of results on day of surgery. PSE contact information provided, order faxed to [facility] per patient request. Normal [facility] [employer] [facility] PSE Appt H AND Neftali Pct Authentication Interface Message Text Patient was identified by name and date of . Quinton Anais Bill of rights provided to patient Normal [facility] [employer] [facility] Patient Instructionson 02-16 Pct Authentication Interface Message Text On the morning of your surgery please take only the following medications, with a small sip of water: atorvastatin (LIPITOR) 20 mg tablet levothyroxine (SYNTHROID) 25 MCG tablet norethindrone (MICRONOR) 0.35 MG tablet clonazePAM (KlonoPIN) 1 MG tablet atenolol (TENORMIN) 100 mg tablet venlafaxine (EFFEXOR XR) 75 MG ER capsule venlafaxine (EFFEXOR XR) 150 MG ER capsule Do not take any Aspirin after 02/17. Do not take any Ibuprofen, Aleve, Advil, or Motrin or any other NSAIDS after 02/21. May take over the counter Acetaminophen (Tylenol) as needed for pain Please hold all Vitamin E, [place] 3, fish oil and herbal supplements for 1 week prior to surgery Normal [facility] [employer] [facility] Telephone Encounteron 2021 Pct Authentication Interface Message Text Arrangements to be made for pre-op COVID testing per ENT request. Normal [facility] [employer] [facility] FLUORO FOR SURGICAL PROCEDUR ESon 01-05-2022 Radiology exam is co mplete. No Radiologist dictation. Please follow up with ordering provider. [facility] RIS CONSOLIDATED , Urineon 2 Beta HCG ( test) Ql (U) Negative NEGATIVE Boxed Comment on above: Specimens with hCG l evels near the threshold of the test (25 mIU/mL) may give a negative or indeterminate result. In such cases, another test should be performed with a new specimen in 48-72 hours. If early is suspected clinically in this setting, correlation with quantitative serum b-hCG level is suggested. [facility] has confirmed the use of plasma for this test. This has not been cleared or approved by the [place].S. Food and Drug Administration. The FDA has determined that such clearance is not necessary. Boxed Basic Metabolic Panelon 12-20 Anion gap [Moles/Vol] 8 mmol/L Low 9 - 17 mmol/L Boxed Calcium [Mass/Vol] 8.9 mg/dL 8.6 - 10. 4 mg/dL Boxed Chloride [Moles/Vol] 101 mmol/L 98 - 107 mmol/L Boxed CO2 [Moles/Vol] 29 mmol/L 20 - 31 mmol/L Boxed Creatinine [Mass/Vol] 0.87 mg/dL 0.50 - 0.90 mg/dL Boxed GFR >60 >60 mL/min Boxed GFR Non- >60 >60 mL/min [facility] Glucose [Mass/Vol] 98 mg/dL 70 - 99 mg/dL [facility] Interpretation and review of laboratory results Abnormal [facility] Potassium [Moles/Vol] 4.3 mmol/L 3.7 - 5.3 mmol/L [facility] Sodium [Moles/Vol] 138 mmol/L 135 - 144 mmol/L [facility] Urea nitrogen (BldV) [Mass/Vol] 8 mg/dL 6 - 20 mg/dL [facility] Urea nitrogen/Creatinine (Bld) [Mass ratio] 9 [facility] CBC with Auto Differentialon 12-30-2021 Absolute Eos # 0.38 [facility] th Absolute Immature Granulocyte 0.06 [facility] Absolute Lymph # 2.56 [facility]th Absolute [place] [facility]69 [facility] (Bld) [#/Vol] 0.09 10*3/uL [facility] Basophils/100 WBC (Bld) 1 % 0 - 2 % [facility] Eosinophils/100 WBC (Bld) 4 % 1 - 4 % [facility] Hematocrit (Bld) [Volume fraction] 38.7 % 36.3 - 47.1 % [facility] Hemoglobin.gastroin testinal spec 1 Ql (Stl) 13.0 g/dL 11.9 - 15.1 g/dL [facility] Immature granulocytes/100 WBC (Bld) 1 % High 0 [facility] Interpretation and review of laboratory results Abnormal [facility] Lymphocytes/100 WBC (Bld) 27 % 24 - 43 % [facility] MCH (RBC) [Entitic mass] 33.1 pg 25.2 - 33.5 pg [facility] MCHC (RBC) [Mass/Vol] 33.6 g/dL 28.4 - 34.8 g/dL [facility] MCV (RBC) [Entitic vol] 98.5 fL 82.6 - 102.9 fL [facility] Monocytes/100 WBC (Bld) 7 % 3 - 12 % [facility] NRBC Automated 0.0 0.0 per 100 WBC [facility] Platelet distribution width (Bld) [Ratio] 12.9 % 11.8 - 14.4 % [facility] Platelet mean volume (Bld) [Entitic vol] 9.8 fL 8.1 - 13.5 fL [facility] Platelets (Bld) [#/Vol] 284 10*3/uL [facility] RBC (Bld) [#/Vol] 3.93 10*6/uL Low 3.95 - 5.11 m/uL [facility] Segmented neutrophils/100 WBC (Bld) 60 % 36 - 65 % [facility] [#/Vol] 9.4 10*3/uL [facility] Laboratory - Chemistry and C hemistry - challengeon 12-30-2021 GFR/1.73 sq M.predicted MDRD (S/P/Bld) [Vol rate/Area] [facility] Comment on above: Average GFR for 40-4 9 years old: 99 mL/min/1.73sq m Chronic Kidney Disease: <60 mL/min/1.73sq m Kidney failure: <15 mL/min/1.73sq m eGFR calculated using average adult body mass. Additional eGFR calculator available at: http://www.[employer]/multiple_crcl_2012.htm Stage 1: Some kidney damage normal GFR Stage 2: Mild kidney damage GFR 60-89 Stage 3: Moderate kidney damage GFR 30-59 Stage 4: Severe kidney damage GFR 15-29 Stage 5: Severe kidney damage GFR <15 ESRD - chronic treatment by dialysis or transplant XR ABDOMEN (KUB) (SINGLE AP VIEW)on 12-22-2021 Nonobstructed bowel- gas pattern. No definite renal or ureteral stones. [facility] EXAMINATION: ONE SUPINE XRAY VIEW(S) OF THE ABDOMEN 12/22/2021 5:15 pm COMPARISON: October 13, 2021 HISTORY: ORDERING SYSTEM PROVIDED HISTORY: Kidney stones TECHNOLOGIST PROVIDED HISTORY: kidney stones FINDINGS: Bowel gas pattern nonobstructed. Renal shadows partially obscured by bowel gas and fecal debris. No definite renal or ureteral stones. No acute osseous abnormality. [facility]SOL[facility] Perry Neely DO - 12/22/2021 EXAMINATION: ONE SUPINE XRAY VIEW(S) OF THE ABDOMEN 12/22/2021 5:15 pm COMPARISON: October 13, 2021 HISTORY: ORDERING SYSTEM PROVIDED HISTORY: Kidney stones TECHNOLOGIST PROVIDED HISTORY: kidney stones FINDINGS: Bowel gas pattern nonobstructed. Renal shadows partially obscured by bowel gas and fecal debris. No definite renal or ureteral stones. No acute osseous abnormality. IMPRESSION: Nonobstructed bowel-gas pattern. No definite renal or ureteral stones. [facility] Phone: Radiology Study observation (narrative) [facility] Phone: XR ABDOMEN (KUB) (SINGLE AP VIEW)Ordered By: Perry Neely on 12-22-2021 [facility] Phone: Office Visit (Cardiology)on 12-02-2021 Follow-up visit Diagnoses/Problems Assessed Essential hypertension, benign (401.1) (I10) Orders Essential hypertension, benign Start: Triamterene-HCTZ 37.5-25 MG Oral Tablet; TAKE 1 TABLET EVERY OTHER DAY Chief Complaint ISABELLE HEWITT is being seen for hypertension. History of Present Illness Here for follow-up and continue management for hypertension Billy was started Dyazide. She reports her blood pressure seem to be going too low and she feels a little bit lightheaded. Assessment 1. Hypertension appears to be running on the low range Plan Reduce Dyazide to every other day. Continue to monitor blood pressure call if not better Current Meds Medication NameInstruction Atenolol 100 MG Oral TabletTAKE 1 TABLET DAILY. Effexor XR 150 MG Oral Capsule Extended Release 24 HourTake 150 tablet/75MG Daily equals 225 MG Ibuprofen 200 MG Oral TabletTAKE 1 TABLET Daily prn KlonoPIN 1 MG Oral TabletTAKE 1 TABLET Daily prn Multi Vitamin TABSTAKE 1 TABLET DAILY. Fannie-BE 0.35 MG Oral TabletTAKE 1 TABLET DAILY. Probiotic CAPSUSE DIRECTED. Triamterene-HCTZ 37.5-25 MG Oral TabletTAKE 1 TABLET DAILY DIRECTED. Tylenol CAPSTAKE 1 CAPSULE Daily prn Vitamin D3 TABSTAKE 1 TABLET DAILY. ZyPREXA 5 MG Oral TabletTAKE 1 TABLET AT BEDTIME. Allergies Medication No Known Drug Allergies Recorded By: Jyothi Cavazos; 10/14/2021 3:16:52 PM Vitals Vital Signs Recorded: 02Dec2021 03:38PM Heart Rate72, R Radial Zhbuwcrs51 Uboywsuws43 Height5 ft 2 in Vrhmdq358 lb BMI Eszpkhpyxh83.47 kg/m2 BSA Calculated1.84 Tobacco Useb) No PHQ-2 #1. Over the last 2 weeks have you felt down, depressed or hopeless? (If yes, answer PHQ-9 below)No PHQ-2 #2. Over the last 2 weeks have you felt little interest or pleasure in doing things? (If yes, answer PHQ-9 below)No Impressions Change Dyazide to every other day Keep follow up appt as scheduled Signatures Electronically signed by : Eileen Nichols MD; Dec 02 2021 5:03PM EST (Author) Normal [facility] Tobacco Screening.on 022 Adult depression screening assessment No [facility] [employer] y 250 DO Work Phone: Tobacco use status CPHS b) No [facility] [employer] y 250 DO Work Phone: Office Visit (Cardiology)on 10-14-2021 Follow-up visit Diagnoses/Problems Assessed Abnormal echocardiogram (793.2) (R93.1) Essential hypertension, benign (401.1) (I10) Class 1 obesity with body mass index (BMI) of 33.0 to 33.9 in adult (278.00,V85.33) (E66.9,Z68.33) PVC (premature ventricular contraction) (427.69) (I49.3) Former smoker (V15.82) (Z87.891) Quit 2019 Lower extremity edema (782.3) (R60.0) Obstructive sleep apnea syndrome (327.23) (G47.33) Orders Abnormal echocardiogram, Essential hypertension, benign Start: Triamterene-HCTZ 37.5-25 MG Oral Tablet; TAKE 1 TABLET DAILY DIRECTED Basic Metabolic Panel; Status:Active - Retrospective Authorization; Requested for:11Nov2021; IO EKG Electrocardiogram- 12 Lead; Status:Complete; Done: 14Oct2021 Class 1 obesity with body mass index (BMI) of 33.0 to 33.9 in adult Healthy Weight Tips; Status:Complete - Retrospective Authorization; Done: 14Oct2021 Health Maintenance Depression Follow-up Visit Outpatient Follow-up Status: Complete - Retrospective Authorization Done: 14Oct2021 SocHx: Former smoker Tobacco Use Screening; Status:Complete; Done: 14Oct2021 Tobacco Use Screening; Status:Complete; Done: 14Oct2021 Unlinked Stop: Furosemide 40 MG Oral Tablet Stop: Potassium Chloride ER 20 MEQ Oral Tablet Extended Release Patient Instructions By signing my name below, I, Ricco May LPN ,Vivienibe, attest that this documentation has been prepared under the direction and in the presence of Dr. Eileen Nichols MD. All medical record entries made by the Scribe were at my direction and personally dictated by me. I have reviewed the chart and agree that the record accurately reflects my personal performance of the history, physical exam, discussion and plan. Please bring all medicines, vitamins, and herbal supplements with you when you come to the office. Prescriptions will not be filled unless you are compliant with your follow up appointments or have a follow up appointment scheduled as per instruction of your physician. Refills should be requested at the time of your visit. patient to get at least 30 minutes exercise per day restrict sodium in diet Blood pressure follow up in 6-8 weeks Follow up in 5 months Chief Complaint ISABELLE HEWITT is being seen for a consultation for abnormal test(s) results. History of Present Illness Patient is here for cardiovascular evaluation requested for borderline abnormal echocardiogram, hypertension and lower extremity edema. Patient is 46-year-old with history of hypertension for about 13 years. Patient has been managed with atenolol. However recently she report her blood pressure has been running a little bit on the higher range. Patient also reported some lower extremity edema and mild weight gain. The patient admits to high level of anxiety, stress and chronic depression. Patient admits to noncompliance with salt restriction. She admits to high intake of fluid including tea and Gatorade. The patient recent echocardiogram showed normal LV systolic function, left ventricular hypertrophy, dilated left atria and mild mitral regurgitation. Patient during the office visit has numerous questions and related to her cardiac issues including regular menses. Tingling sensation in her lower extremity. Anxiety and depression. Patient also reports history of sleep apnea but admits to noncompliance with CPAP Assessment 1. Hypertension suboptimally controlled 2. Lower extremity edema likely due to salt indiscretion and untreated sleep apnea 3. Obesity 4. Sleep apnea 5. Anxiety and depression followed by her PCP 6. Borderline abnormal echo consistent with hypertensive heart disease 7. Observation for asymptomatic PVCs appears to be benign based on normal LV systolic function and no significant structural heart disease Plan 1. I recommended patient to discontinue Lasix and potassium and start Dyazide 1 tablet daily 2. I advised the patient to have a blood pressure check and a BMP in 4 to 6 weeks 3. If blood pressure remains elevated will consider adding GREG inhibitors 4. I counseled the patient at great length regarding salt restriction, avoiding caffeinated drinks, exercise, dietary modification and DASH diet 5. I advised her to address her other issues and depression with her PCP 6. We will see her back in the office in 3 to 4 months follow-up Surgical History Problems History of section History of Cholecystectomy History of Dental surgery History of Lithotripsy Current Meds Medication NameInstruction Atenolol 100 MG Oral TabletTAKE 1 TABLET DAILY. Effexor XR 150 MG Oral Capsule Extended Release 24 HourTake 150 tablet/75MG Daily equals 225 MG Furosemide 40 MG Oral TabletTAKE 1 TABLET DAILY. Ibuprofen 200 MG Oral TabletTAKE 1 TABLET Daily prn KlonoPIN 1 MG Oral TabletTAKE 1 TABLET Daily prn Multi Vitamin TABSTAKE 1 TABLET DAILY. Fannie-BE 0.35 MG Oral TabletTAKE 1 TABLET DAILY. Potassium Chloride ER 20 MEQ Oral Tablet Extended ReleaseTake 1 t (more content not included)... Normal [employer] Tobacco Screening.on 022 Adult depression screening assessment Yes [facility] 250 DO Work Phone: Tobacco use status CPHS b) No [facility] [facility] 250 DO Work Phone: Tobacco Screening. 1-Several days [facility] 250 DO Work Phone: Tobacco Screening. 3-Nearly every day [facility] 250 DO Work Phone: Tobacco Screening. 0-Not at all [facility] [facility] 250 DO Work Phone: Tobacco Screening. 2-More than half the days [facility] 250 DO Work Phone: Vital Signs Date Time Vital Sign Value Performing Clinician Facility 08-08-2023 13:25-0500 Diastolic blood pressure 89 mm[Hg] Genasue Kirby Work Phone: [facility] 08-08-2023 13:25-0500 Heart rate 75 /min Genasue Camachoholthong Work Phone: [facility] 08-08-2023 13:25-0500 Respiratory rate 16 /min Genasue Camachoholz Work Phone: [facility] 08-08-2023 13:25-0500 SaO2% (BldA) [Mass fraction] 99 % Gena Janiceholthong Work Phone: [facility] 08-08-2023 13:25-0500 Systolic blood pressure 117 mm[Hg] Gena Janiceholthong Work Phone: [facility] 08-08-2023 11:41-0500 Body height 157.48 cm Gena Janiceholthong Work Phone: [facility] 08-08-2023 11:41-0500 Body weight 77.11 kg Gena Kirby Work Phone: [facility] 06-30-2023 09:20-0500 Body height 157.48 cm Kar Lyman Other [facility] Other 06-30-2023 09:20-0500 Body mass index (BMI) [Ratio] 30.18 kg/m2 Kar Lyman Other [facility] Other 06-30-2023 09:20-0500 Body weight 74.84 kg Kar Lyman Other [facility] Other 06-30-2023 09:20-0500 Diastolic blood pressure 87 mm[Hg] Kar Lyman Other [facility] Other 06-30-2023 09:20-0500 Systolic blood pressure 115 mm[Hg] Kar Lyman Other [facility] Other 06-07-2023 12:30-0400 Body height 157.48 cm Louise Johnson Other [facility] Other 06-07-2023 12:30-0400 Body mass index (BMI) [Ratio] 31.05 kg/m2 Louise Johnson Other [facility] Other 06-07-2023 12:30-0400 Body temperature 98 [degF] Louise Johnson Other [facility] Other 06-07-2023 12:30-0400 Body weight 77.02 kg Louise Johnson Other [facility] Other 06-07-2023 12:30-0400 Diastolic blood pressure 78 mm[Hg] Louise Johnson Other [facility] Other 06-07-2023 12:30-0400 Respiratory rate 18 /min Louise Johnson Other [facility] Other 06-07-2023 12:30-0400 SaO2% (BldA) [Mass fraction] 98 % Louise Johnson Other [facility] Other 06-07-2023 12:30-0400 Systolic blood pressure 117 mm[Hg] Louise Johnson Other [facility] Other 07-17-2022 04:28-0500 Body temperature 98.29 [degF] Rikki Rodrigues DMD, MD Work Phone: [employer] 07-17-2022 04:28-0500 Diastolic blood pressure 80 mm[Hg] Rikki Rodrigues DMD, MD Work Phone: [employer] 07-17-2022 04:28-0500 Heart rate 54 /min Rikki Rodrigues DMD, MD Work Phone: [facility] 07-17-2022 04:28-0500 Respiratory rate 18 /min Rikki Rodrigues DMD, MD Work Phone: [facility] 07-17-2022 04:28-0500 SaO2% (BldA) [Mass fraction] 96 % Rikki Rodrigues DMD, MD Work Phone: [facility] 07-17-2022 04:28-0500 Systolic blood pressure 109 mm[Hg] Rikki Rodrigues DMD, MD Work Phone: [facility] 07-14-2022 15:17-0500 Body mass index (BMI) [Ratio] 36.29 kg/m2 Rikki Rodrigues DMD, MD Work Phone: [facility] 07-14-2022 15:17-0500 Body weight 90 kg Rikki Rodrigues DMD, MD Work Phone: [facility] 07-14-2022 14:55-0500 Body height 157.5 cm Rikki Rodrigues DMD, MD [facility] 07-14-2022 09:01-0500 SaO2% (BldA) [Mass fraction] 98.8 % Rikki Rodrigues DMD, MD [facility] 07-08-2022 13:59-0500 Body height 157.5 cm Gena MORRIS Work Phone: [facility] 07-08-2022 13:59-0500 Body mass index (BMI) [Ratio] 35.96 kg/m2 Gena [facility]RIS [facility] 07-08-2022 13:59-0500 Body temperature 97.9 [degF] Gena MORRIS Work Phone: [facility] 07-08-2022 13:59-0500 Body weight 89.18 kg Gena MORRIS Work Phone: [facility] 07-08-2022 13:59-0500 Diastolic blood pressure 80 mm[Hg] Gena Holbrook FIELD SUPERINTENDENT-GREASER HELPER Work Phone: [facility] 07-08-2022 13:59-0500 Heart rate 98 /min Gena Holbrook FIELD SUPERINTENDENT-GREASER HELPER Work Phone: [facility] 07-08-2022 13:59-0500 Respiratory rate 14 /min Gena Holbrook FIELD SUPERINTENDENT-GREASER HELPER Work Phone: [facility] 07-08-2022 13:59-0500 SaO2% (BldA) [Mass fraction] 98 % Gena Holbrook FIELD SUPERINTENDENT-GREASER HELPER [facility] 07-08-2022 13:59-0500 Systolic blood pressure 122 mm[Hg] Gena Holbrook APRN-GREASER HELPER [facility] 06-18-2022 15:09-0400 Diastolic blood pressure 89 mm[Hg] Rikki Rodrigues DMD, MD Work Phone: [facility] 06-18-2022 15:09-0400 Heart rate 117 /min Rikki Rodrigues DMD, MD Work Phone: [facility] 06-18-2022 15:09-0400 Systolic blood pressure 120 mm[Hg] Rikki Rodrigues DMD, MD Work Phone: [facility] 06-18-2022 15:07-0400 Body height 157.5 cm Rikki Rodrigues DMD, MD Work Phone: [facility] 06-18-2022 15:07-0400 Body mass index (BMI) [Ratio] 34.75 kg/m2 Rikki Rodrigues DMD, MD Work Phone: [facility] 06-18-2022 15:07-0400 Body weight 86.18 kg Rikki Rodrigues DMD, MD Work Phone: [facility] 05-28-2022 09:00-0400 Body height 157.5 cm [facility] 05-28-2022 09:00-0400 Body mass index (BMI) [Ratio] 34.75 kg/m2 Pse Rn [facility] 05-28-2022 09:00-0400 Body weight 86.18 kg Pse Rn [facility] 02-26-2022 12:49-0400 Body temperature 97.81 [degF] Yi Moreno MD Work Phone: [facility] 02-26-2022 12:49-0400 Diastolic blood pressure 57 mm[Hg] Yi Moreno MD Work Phone: [facility] 02-26-2022 12:49-0400 Heart rate 78 /min Yi Moreno MD Work Phone: [facility] 02-26-2022 12:49-0400 Respiratory rate 18 /min Yi Moreno MD Work Phone: [facility] 02-26-2022 12:49-0400 SaO2% (BldA) [Mass fraction] 92 % Yi Moreno MD Work Phone: [facility] 02-26-2022 12:49-0400 Systolic blood pressure 101 mm[Hg] Yi Moreno MD Work Phone: [facility] 02-25-2022 18:16-0400 Body mass index (BMI) [Ratio] 32.92 kg/m2 Yi Moreno MD Work Phone: [facility] 02-25-2022 18:16-0400 Body weight 81.65 kg Yi Moreno MD Work Phone: [facility] 02-25-2022 08:08-0400 Body height 157.5 cm Yi Moreno MD Work Phone: [facility] 02-17-2022 22:11-0400 Heart rate 72 /min Pierce Ramos APRN-GREASER HELPER Work Phone: [facility] 02-16-2022 14:19-0400 Body height 157.5 cm Pierce Ramos APRN-GREASER HELPER Work Phone: [employer] 02-16-2022 14:19-0400 Body mass index (BMI) [Ratio] 32.92 kg/m2 Pierce Ramos APRN-GREASER HELPER Work Phone: [employer] 02-16-2022 14:19-0400 Body temperature 97.3 [degF] Pierce Ramos APRN-GREASER HELPER Work Phone: [facility] 02-16-2022 14:19-0400 Body weight 81.65 kg Pierce Ramos FIELD SUPERINTENDENT-GREASER HELPER Work Phone: [employer] 02-16-2022 14:19-0400 Diastolic blood pressure 81 mm[Hg] Pierce Ramos APRN-GREASER HELPER Work Phone: [employer] 02-16-2022 14:19-0400 Heart rate 74 /min Pierce Ramos APRN-GREASER HELPER Work Phone: [employer] 02-16-2022 14:19-0400 Respiratory rate 16 /min Pierce Ramos APRN-GREASER HELPER Work Phone: [employer] 02-16-2022 14:19-0400 SaO2% (BldA) [Mass fraction] 96 % Pierce Ramos APRN-GREASER HELPER Work Phone: [employer] 02-16-2022 14:19-0400 Systolic blood pressure 125 mm[Hg] Pierce Ramos APRN-GREASER HELPER Work Phone: [facility] 01-11-2022 14:20-0400 Diastolic blood pressure 87 mm[Hg] Yi Moreno MD Work Phone: [employer] 01-11-2022 14:20-0400 Heart rate 86 /min Yi Moreno MD Work Phone: [employer] 01-11-2022 14:20-0400 Systolic blood pressure 116 mm[Hg] Yi Moreno MD Work Phone: [employer] 01-11-2022 14:12-0400 Body height 157.5 cm Yi Moreno MD Work Phone: [facility] 01-11-2022 14:12-0400 Body mass index (BMI) [Ratio] 34.39 kg/m2 Yi Moreno MD Work Phone: [facility] 01-11-2022 14:12-0400 Body temperature 98.8 [degF] Yi Moreno MD Work Phone: [facility] 01-11-2022 14:12-0400 Body weight 85.28 kg Yi Moreno MD Work Phone: [facility] 01-11-2022 14:12-0400 Respiratory rate 18 /min Yi Moreno MD Work Phone: [facility] 01-11-2022 14:12-0400 SaO2% (BldA) [Mass fraction] 100 % Yi Moreno MD Work Phone: [facility] 01-05-2022 16:25-0400 Diastolic blood pressure 82 mm[Hg] Bertha Hirsch MD Work Phone: [employer] 01-05-2022 16:25-0400 Heart rate 87 /min Bertha Hirsch MD Work Phone: [employer] 01-05-2022 16:25-0400 Respiratory rate 16 /min Bertha Hirsch MD Work Phone: [employer] 01-05-2022 16:25-0400 SaO2% (BldA) [Mass fraction] 94 % Bertha Hirsch MD Work Phone: [employer] 01-05-2022 16:25-0400 Systolic blood pressure 122 mm[Hg] Bertha Hirsch MD Work Phone: [employer] 01-05-2022 16:00-0400 Body temperature 96.91 [degF] Bertha Hirsch MD Work Phone: [employer] 01-05-2022 13:35-0400 Body height 157.5 cm Bertha Hirsch MD Work Phone: [facility] [employer] 01-05-2022 13:21-0400 Body mass index (BMI) [Ratio] 34.06 kg/m2 Bertha Hirsch MD Work Phone: [facility] [employer] 01-05-2022 13:21-0400 Body weight 84.46 kg Bertha Hirsch MD Work Phone: [facility] [employer] 12-02-2021 15:38-0400 Body height 157.48 cm Gena Kirby Work Phone: [facility] 250 DO Work Phone: 12-02-2021 15:38-0400 Body mass index (BMI) [Ratio] 33.47 kg/m2 Gena Kirby Work Phone: [facility] 250 DO Work Phone: 12-02-2021 15:38-0400 Body surface area Derived from formula 1.84 m2 Gena Kirby Work Phone: [facility] 250 DO Work Phone: 12-02-2021 15:38-0400 Body weight 83.01 kg Gena Kirby Work Phone: [facility] 250 DO Work Phone: 12-02-2021 15:38-0400 Diastolic blood pressure 70 mm[Hg] Gena Kirby Work Phone: [facility] 250 DO Work Phone: 12-02-2021 15:38-0400 Heart rate 72 /min Gena Kirby Work Phone: [facility] 250 DO Work Phone: 12-02-2021 15:38-0400 Systolic blood pressure 92 mm[Hg] Gena Kirby Work Phone: [facility] 250 DO Work Phone: 11-09-2021 15:15-0400 Body height 157.48 cm Wiley Mcmanus Other [facility] Other 11-09-2021 15:15-0400 Body mass index (BMI) [Ratio] 32.55 kg/m2 Wiley Mcmanus Other [employer] Other 11-09-2021 15:15-0400 Body temperature 98.5 [degF] Wiley Mcmanus Other [facility] Other 11-09-2021 15:15-0400 Body weight 80.74 kg Wiley Mcmanus Other [facility] Other 11-09-2021 15:15-0400 Diastolic blood pressure 81 mm[Hg] Wiley Mcmanus Other [facility] Other 11-09-2021 15:15-0400 SaO2% (BldA) [Mass fraction] 94 % Wiley Mcmanus Other [facility] Other 11-09-2021 15:15-0400 Systolic blood pressure 122 mm[Hg] Wiley Mcmanus Other [employer] Other 10-14-2021 15:34-0500 Diastolic blood pressure 98 mm[Hg] Gena Kirby Work Phone: [facility] 250 DO Work Phone: 10-14-2021 15:34-0500 Systolic blood pressure 152 mm[Hg] Gena Kirby Work Phone: [facility] 250 DO Work Phone: 10-14-2021 15:23-0500 Body height 157.48 cm Gena Kirby Work Phone: [facility] 250 DO Work Phone: 10-14-2021 15:23-0500 Body mass index (BMI) [Ratio] 33.47 kg/m2 Gena Camachoholz Work Phone: [facility] 250 DO Work Phone: 10-14-2021 15:23-0500 Body surface area Derived from formula 1.84 m2 Gena Jang Joelnicanorholthong Work Phone: [facility] 250 DO Work Phone: 10-14-2021 15:23-0500 Body weight 83.01 kg Gena Caamchoholz Work Phone: [facility] 250 DO Work Phone: 10-14-2021 15:23-0500 Diastolic blood pressure 98 mm[Hg] Gena Jang Joelnicanorholz Work Phone: [facility] 250 DO Work Phone: 10-14-2021 15:23-0500 Heart rate 78 /min Gena Camachoholz Work Phone: [facility] 250 DO Work Phone: 10-14-2021 15:23-0500 Systolic blood pressure 160 mm[Hg] Gena Jang Joelnicanorholz Work Phone: [facility] 250 DO Work Phone: 10-14-2021 15:23-0500 16 4 Gena Jang Joelhholz Work Phone: [facility] 250 DO Work Phone: Comment on above: PHQ-9 TS Encounters Encounter Date Encounter Type Care Provider Facility Start: 08-12-2023 End: 08-12-2023 ambulatory Imad Asaad Other [facility] Other Start: 08-12-2023 Telephone encounter Imad Asaad [facility] Start: 08-10-2023 End: 08-10-2023 ambulatory Imad Asaad Other [facility] Other Start: 08-10-2023 Telephone encounter Imad Asaad [facility] Start: 08-08-2023 End: 08-08-2023 ambulatory Gena J Aichholz Facility:[facility] Start: 08-08-2023 End: 08-08-2023 Admission to same day surgery center Gena Joelhholz Work Phone: [facility] Work Phone: Start: 08-08-2023 End: 08-08-2023 ambulatory Gena J Aichholz Work Phone: [facility] Work Phone: Start: 06-30-2023 End: 06-30-2023 Patient encounter procedure Gena Aichholz Work Phone: [facility] [place] Work Phone: Start: 06-30-2023 End: 06-30-2023 ambulatory Gena J Aichholz Work Phone: [email or web address] Other Start: 06-30-2023 Office outpatient ne w 30 minutes Kar Lyman [facility] Start: 06-07-2023 End: 06-07-2023 ambulatory Louise Johnson Other [email or web address] Other Start: 06-07-2023 Encounter by nat Johnson [facility] Start: 06-07-2023 Office outpatient vi sit 25 minutes Louise Johnson [facility] [place] Start: 03-16-2023 End: 03-16-2023 ambulatory Wiley Mcmanus Facility:[facility] Start: 03-16-2023 End: 03-16-2023 ambulatory Genasue Kirby Work Phone: [facility] Work Phone: Start: 03-16-2023 End: 03-16-2023 Patient encounter procedure Gena Kirby Work Phone: [facility] Work Phone: Start: 03-08-2023 End: 03-11-2023 ambulatory [facility] Start: 02-21-2023 End: 02-21-2023 ambulatory HERMES MORENO MD~[id number] [facility] Start: 01-26-2023 Telephone encounter Rikki norris DMD, MD Work Phone: [facility] Oral Surgery Start: 01-18-2023 ambulatory BRIAN KIRBY Facil ity:[facility]1 Start: 12-13-2022 End: 12-14-2022 [facility] Start: 12-13-2022 End: 12-13-2022 Subsequent hospital visit by physician Gena Kirby [facility] Phone[facility] Comment on above: OAB (overactive blad darinel); Urge incontinence; Frequency of urination Start: 11-26-2022 End: 11-26-2022 ambulatory GREASER HELPER GENA KIRBY Facility:[facility]1 Start: 11-16-2022 End: 11-16-2022 ambulatory Wiley Mcmanus Facility:[facility] Start: 11-16-2022 End: 11-16-2022 ambulatory Genasue Kirby Work Phone: [facility] Work Phone: Start: 11-16-2022 End: 11-16-2022 Patient encounter procedure Gena Kirby Work Phone: [facility] Work Phone: Start: 11-12-2022 End: 11-12-[address] OSWALD HARRINGTON . Facility: Start: 11-04-2022 Telephone encounter Yi wylie MD Work Phone: [facility] Otolaryngology (ENT) Start: 11-01-2022 Encounter for preprocedural cardiovascular examination DR OSWALD HARRINGTON . [facility] Start: 11-01-2022 Telephone encounter Rikki norris DMD, MD Work Phone: [facility] Oral Surgery Start: 10-28-2022 End: 10-29-[address] OSWALD HARRINGTON . Facility: Start: 10-28-2022 End: 10-29-2022 Encounter for preprocedural cardiovascular examination DR OSWALD HARRINGTON . Facility: Start: 10-19-2022 End: 10-19-2022 ambulatory UNKNOWN PROVIDER [facility] Start: 09-24-[address] OSWALD HARRINGTON . Facili ty:[facility]1 Start: 09-21-[address] OSWALD HARRINGTON . Facili ty:[facility]1 Start: 09-02-2022 End: 09-03-2022 ambulatory GREASER HELPER GENA KIRBY Facility: Start: 08-30-2022 ambulatory UNKNOWN PROVIDER [facility] Start: 08-30-2022 End: 08-30-2022 Follow-up encounter Rikki Rodrigues DMD, MD Work Phone: [facility] Oral Surgery Start: 08-30-2022 End: 08-30-2022 Patient encounter procedure Rikki Rodrigues DMD, MD Work Phone: [facility] Oral Surgery Comment on above: Post-operative state (Primary Dx) Start: 08-12-2022 End: 08-13-2022 ambulatory [facility] Start: 08-12-2022 End: 08-12-2022 Subsequent hospital visit by physician Gena Kirby Work Phone: [facility] Laboratory Comment on above: Dysuria Start: 08-11-2022 Telephone encounter Feliz Bakari HOWARD Work Phone: [facility] Oral Surgery Start: 08-02-2022 Telephone encounter Rikki norris DMD, MD Work Phone: [facility] Oral Surgery Start: 07-28-2022 Telephone encounter Mikal Michi amador DMD Work Phone: [facility] Oral Surgery Start: 07-23-2022 End: 07-23-2022 Follow-up encounter Rikki Rodrigues DMD, MD Work Phone: [facility] Oral Surgery Start: 07-23-2022 End: 07-23-2022 Telemedicine consultation with patient Rikki Rodrigues DMD, MD Work Phone: [facility] Oral Surgery Comment on above: DIONNE (obstructive sle ep apnea) (Primary Dx) Start: 07-23-2022 End: 07-23-2022 ambulatory UNKNOWN PROVIDER Facility:[facility] Start: 07-14-2022 End: 07-17-2022 Evaluation and management of inpatient [facility] Start: 07-14-2022 End: 07-15-2022 ambulatory [facility] Facility:[facility] Start: 07-14-2022 End: 07-14-2022 Subsequent hospital visit by physician Rikki Rodrigues DMD, MD Work Phone: [facility] Radiology Comment on above: Arrived Start: 07-14-2022 End: 07-17-2022 Evaluation and management of inpatient Rikki Rodrigues DMD, MD Work Phone: [facility] Comment on above: DIONNE (obstructive sle ep apnea) (Primary Dx); Pain Start: 07-09-2022 Telephone encounter Yi wylie MD Work Phone: [facility] Otolaryngology (ENT) Comment on above: Patient questions/co ncerns (Patient asking what next step is after jaw surgery) Start: 07-08-2022 End: 07-09-2022 ambulatory UNKNOWN PROVIDER Facility:[facility] Start: 07-08-2022 End: 07-09-2022 Office outpatient new 45 minutes Gena Holbrook FIELD SUPERINTENDENT-[facility] Work Phone: [facility] Pre Surgical Evaluation Comment on above: Pre-op testing (Prim amy Dx); Body mass index (BMI) 35.0-35.9, adult Start: 07-08-2022 End: 07-09-2022 Patient encounter status Gena Holbrook APRN-[facility] Work Phone: [facility] Pre Surgical Evaluation Start: 07-07-2022 End: 07-08-2022 ambulatory GREASER HELPER GENA KIRBY Facility: Start: 07-06-2022 End: 07-06-2022 Patient encounter procedure Pierce Ramos FIELD SUPERINTENDENT-[facility] Work Phone: [facility] Pre-Surgical Evaluation Comment on above: ENCOUNTER OPENED IN ERROR (Primary Dx) Start: 07-05-2022 Telephone encounter Mary guy RN [facility] Pre Surgical Evaluation Comment on above: Pre-surgical Evaluat ion (Pre-op COVID testing not needed ) Start: 07-02-2022 End: 07-06-2022 ambulatory UNKNOWN PROVIDER Facility:[facility] Start: 07-02-2022 End: 07-02-2022 Follow-up encounter Rikki Rodrigues DMD, MD Work Phone: [facility] Oral Surgery Start: 07-02-2022 End: 07-02-2022 Patient encounter procedure Rikki Rodrigues DMD, MD Work Phone: [facility] Oral Surgery Comment on above: DIONNE (obstructive sle ep apnea) (Primary Dx) Start: 06-18-2022 End: 06-20-2022 Office outpatient new 30 minutes Rikki Rodrigues DMD, MD Work Phone: [facility] Oral Surgery Comment on above: Obstructive sleep ap shaun (Primary Dx); DIONNE (obstructive sleep apnea); Body mass index (BMI) 34.0-34.9, adult Start: 06-18-2022 End: 06-20-2022 Orders Only Saleem Mi DMD Work Phone: [facility] Oral Surgery Start: 06-15-2022 End: 06-15-2022 ambulatory UNKNOWN PROVIDER Facility:[facility] Start: 06-03-2022 End: 06-03-2022 ambulatory YI MORENO Facility:[facility] Start: 05-31-2022 End: 05-31-2022 ambulatory Isabel Sin Other [email or web address] Other Start: 05-31-2022 Office outpatient vi sit 5 minutes Isabel Sin [facility] Start: 05-28-2022 Telephone encounter Mary guy RN [facility] Pre Surgical Evaluation Comment on above: Pre-surgical Evaluat ion (Pre-op COVID testing) Start: 05-28-2022 ambulatory UNKNOWN PROVIDER Facili ty:[facility] Start: 05-28-2022 End: 05-28-2022 Nursing evaluation of patient and report Pse Rn [facility] Pre Surgical Evaluation Comment on above: Preop examination (P rimary Dx) Start: 05-28-2022 End: 05-28-2022 Preprocedural examination done Pse Rn [facility] Pre Surgical Evaluation Start: 05-26-2022 Telephone encounter Mary guy RN [facility] Pre Surgical Evaluation Comment on above: Pre-surgical Evaluat ion (Pre-op COVID testing) Start: 05-19-2022 End: 05-19-2022 ambulatory Gena Kirby Work Phone: [facility] Work Phone: Start: 05-19-2022 End: 05-19-2022 Patient encounter procedure Gena Kirby Work Phone: [facility]-Sleep Lab Start: 05-18-2022 Letter encounter Yi saunders MD Work Phone: [facility] Otolaryngology (ENT) Start: 05-17-2022 End: 05-18-[address] WILEY POE Facility: Start: 05-11-2022 End: 05-12-[address] OSWALD HARRINGTON . Facility:[facility] Start: 05-07-2022 End: 05-08-[address] OSWALD HARRINGTON . Facility:[facility] Start: 03-29-2022 End: 03-30-2022 Phys/qhp telephone evaluation 11-20 min Yi Moreno MD Work Phone: [facility] Otolaryngology (ENT) Comment on above: DIONNE (obstructive sle ep apnea) (Primary Dx) Start: 03-29-2022 End: 03-30-2022 ambulatory UNKNOWN PROVIDER Facility:[facility] Start: 03-09-2022 End: 03-10-2022 ambulatory GREASER HELPER GENA JACKLYNThong Facility:[facility] Start: 03-09-2022 Telephone encounter Yi wylie MD Work Phone: [facility] Otolaryngology (ENT) Start: 02-25-2022 End: 02-26-2022 Evaluation and management of inpatient YI MORENO Facility:[facility] Start: 02-25-2022 End: 02-26-2022 Subsequent hospital visit by physician Yi Moreno MD Work Phone: Inpatient 8B Comment on above: Encounter for carmela woodward testing for severe acute respiratory syndrome coronavirus 2 (SARS-CoV-2) (Primary Dx); DIONNE (obstructive sleep apnea); Postoperative pain Start: 02-24-2022 Telephone encounter Mary guy RN [facility] Pre Surgical Evaluation Comment on above: Pre-surgical Evaluat ion (Pre-op COVID testing - results) Start: 02-23-2022 End: 02-24-[address] DOCTOR ABDULLAHI Facility:[facility] Start: 02-19-2022 End: 02-21-2022 Subsequent hospital visit by physician Yaneth Sharp Dr [facility] 2 [facility] Radiology Comment on above: Ureteral stone Start: 02-17-2022 Telephone encounter Mary guy RN [facility] Pre Surgical Evaluation Comment on above: Pre-surgical Evaluat ion (Pre-op COVID testing) Start: 02-16-2022 End: 02-18-2022 ambulatory UNKNOWN PROVIDER Facility:[facility] Start: 02-16-2022 Encounter for other preprocedural examination [facility]KNOWN [facility]ER [facility] Start: 02-16-2022 End: 02-17-2022 Office outpatient new 45 minutes Pierce Ramos FIELD SUPERINTENDENT-GREASER HELPER Work Phone: [facility] Pre-Surgical Evaluation Comment on above: Preop testing (Prima ry Dx); Abnormal electrocardiogram (ECG) (EKG); Body mass index (BMI) 32.0-32.9, adult Start: 02-16-2022 End: 02-17-2022 Patient encounter status Pierce Ramos FIELD SUPERINTENDENT-GREASER HELPER Work Phone: [facility] Pre-Surgical Evaluation Start: 02-16-2022 Telephone encounter Yi wylie MD Work Phone: [facility] Otolaryngology (ENT) Start: 02-11-2022 Telephone encounter Mary guy RN [facility] Pre Surgical Evaluation Comment on above: Pre-surgical Evaluat ion (Pre-op COVID testing) Start: 02-04-2022 Letter encounter Yi saunders MD Work Phone: [facility] Otolaryngology (ENT) Start: 01-12-2022 End: 01-12-2022 ambulatory Wiley Mcmanus Other [employer] Other Start: 01-12-2022 Telephone encounter Wiley Mcmanus [facility] Sleep Lab Start: 01-11-2022 End: 01-11-2022 Office consultation new/estab patient 60 min Yi Moreno MD Work Phone: [facility] Otolaryngology (ENT) Comment on above: DIONNE (obstructive sle ep apnea) (Primary Dx); Body mass index (BMI) 34.0-34.9, adult Start: 01-05-2022 End: 01-05-2022 Subsequent hospital visit by physician Bertha Hirsch MD Work Phone: [facility] OR Start: 12-30-2021 End: 12-30-2021 Patient encounter status Gena Kirby Work Phone: [facility] Laboratory Start: 12-30-2021 End: 12-30-2021 Subsequent hospital visit by physician Gena Kirby Work Phone: [facility] Laboratory Comment on above: Pre-op testing Start: 12-22-2021 End: 12-24-2021 Subsequent hospital visit by physician [facility] Radiology Comment on above: Kidney stones Start: 12-02-2021 Office outpatient vi sit 10 minutes Gena Laine Maldonadonicanorludmila Work Phone: [facility] 250 DO Work Phone: Start: 11-09-2021 End: 11-09-2021 ambulatory Wiley Yonathan Other [facility] [employer] Other Start: 11-09-2021 Office outpatient vi sit 40 minutes Wiley Mcmanus [facility] Start: 10-14-2021 Office outpatient vi sit 25 minutes Gena Kirby Work Phone: [facility] 250 DO Work Phone: Procedures Date Procedure Procedure Detail Performing Clinician Start: 08-08-2023 Colonoscopy Gena Kofi Work Phone: Start: 12-13-2022 Urnls dip stick/tablet reagent auto microscopy Elin Ballard FIELD SUPERINTENDENT - GREASER HELPER Work Phone: Start: 08-12-2022 Urnls dip stick/tablet reagent auto microscopy Feliz Weaver PA-C Work Phone: Start: 07-17-2022 Glucose blood reagent strip Rikki frey DMD, MD Work Phone: Start: 07-17-2022 Glucose blood reagent strip Rikki frey DMD, MD Work Phone: Start: 07-17-2022 Assay of magnesium Edita Meyer MD Work Phone: Start: 07-16-2022 Glucose blood reagent strip Rikki frey DMD, MD Work Phone: Start: 07-16-2022 Glucose blood reagent strip Rikki frey DMD, MD Work Phone: Start: 07-16-2022 Glucose blood reagent strip Rikki frey DMD, MD Work Phone: Start: 07-16-2022 Assay of magnesium Edita Meyer MD Work Phone: Start: 07-15-2022 Glucose blood reagent strip Rikki frey DMD, MD Work Phone: Start: 07-15-2022 Glucose blood reagent strip Rikki frey DMD, MD Work Phone: Start: 07-15-2022 Blood count complete automated Oliver mora DMD Work Phone: Start: 07-14-2022 Glucose blood reagent strip Rikki frey DMD, MD Work Phone: Start: 07-14-2022 Radiologic examination skull 4/> views Rikki Rodrigues DMD, MD Work Phone: Start: 07-14-2022 Assay of lactate Zenia CHAMBERLAIN Work Phone: Start: 07-14-2022 Blood gases any combination ph pco2 po2 co2 hco3 Zenia CHAMBERLAIN Work Phone: Start: 07-14-2022 Carboxyhemoglobin measurement Zenia CHAMBERLAIN Work Phone: Start: 07-14-2022 Urine test visual color cmprsn meths Saleem Mi DMD Work Phone: Start: 07-14-2022 Glucose blood reagent strip Rikki frey DMD, MD Work Phone: Start: 07-08-2022 Blood typing serologic abo Gena DEL CASTILLO RN-GREASER HELPER Work Phone: Start: 07-08-2022 Blood count complete automated Gena vasquez APRN-GREASER HELPER Work Phone: Start: 07-08-2022 Blood typing, ABO, Rho(D) and RBC antibody screening Gena Yusef FIELD SUPERINTENDENT-GREASER HELPER Work Phone: Start: 06-18-2022 panoramic radiographic image Rikki love DMD, MD Work Phone: Start: 02-25-2022 End: 02-25-2022 UVULOPALATOPHARYNGOPLASTY Yi dutta MD Work Phone: Start: 02-25-2022 Urine test visual color cmprsn meths Yi Moreno MD Work Phone: Start: 02-19-2022 Radiologic exam abdomen 1 view Feliz D Do rkoskie PA-C Work Phone: Start: 02-16-2022 Ecg routine ecg w/least 12 lds trcg only w/o i&r Pierce Ramos FIELD SUPERINTENDENT-GREASER HELPER Work Phone: Start: 01-11-2022 Laryngoscopy flexible diagnostic Yi Moreno MD Work Phone: Start: 01-05-2022 Fluoroscopy during operation Bertha john MD Work Phone: Start: 01-05-2022 Urine test visual color cmprsn meths Kar Lilia FIELD SUPERINTENDENT - [employer] Start: 12-30-2021 Basic metabolic panel calcium total Feliz D Mookieie PA-C Work Phone: Start: 12-22-2021 Radiologic exam abdomen 1 view Feliz D Do rkoskie PA-C Work Phone: section Gena Jang Aic hholz Work Phone: Cholecystectomy Gena Jang Aich ludmila Work Phone: Dental surgical procedure Cassandra Jang Aichholz Work Phone: Lithotripsy Gena Jang Aichhol z Work Phone: Plan of Treatment Date Care Activity Detail Author Start: 2025 Shingles (RZV) Vaccine (1 of 2) Shingles (RZV) Vaccine (1 of 2) [facility] Start: 08-08-2023 [facility] Start: 03-22-2023 Influenza vaccination Flu vaccine (Season Ended) [facility] Start: 02-21-2023 End: 02-21-2023 Patient encounter procedure 02/21/2023 Office Visit Urology [facility] UROLOGY [facility] Start: 12-21-2022 Cholesterol [Mass/volume] in Serum or Plasma Cholesterol [facility] Start: 10-19-2022 End: 10-19-2022 Patient encounter procedure 10/19/2022 Office Visit Ent-Otolaryngology Yi Moreno MD [address] [place] [phone] [facility] (ENT) Start: 08-13-2022 End: 08-13-2022 Patient encounter procedure 08/13/2022 Office Visit Or al Surgery Rikki Rodrigues DMD, MD [address] [place] [phone] [facility] Oral Surgery Start: 07-30-2022 End: 07-30-2022 Patient encounter procedure 07/30/2022 Office Visit Or al Surgery Rikki Rodrigues DMD, MD [address] [place] [phone] [facility] Start: 07-23-2022 End: 07-23-2022 Telemedicine consultation with patient 07/23/2022 Telemedicine Oral Surgery Rikki Rodrigues DMD, MD [address] [place] [phone] [facility] Start: 07-14-2022 End: 07-14-2022 Admission to same day surgery center 07/14/2022 Surgery General Surgery Rikki Rodrigues DMD, MD [address] [place] [phone] [facility] OR Comment on above: [facility]STEOTOM[facility] Start: 07-14-2022 End: 07-14-2022 LEFORTE I OSTEOTOMY [facility] I OSTEOTOMY Routine scheduled DIONNE (obstructive sleep apnea) 07/14/2022 9:23 AM EST [facility] Start: 07-14-2022 End: 07-14-2022 OSTEOTOMY, SAGITTAL SPLIT, BILATERAL OSTEOTOMY, SAGITTAL SPLIT, BILATERAL Routine scheduled DIONNE (obstructive sleep apnea) 07/14/2022 9:23 AM EST [facility] Start: 07-14-2022 Subsequent hospital visit by physician 07/14/2022 Hospital Encounter General Surgery Rikki Rodrigues DMD, MD [address] [place] [phone] [facility] Start: 07-14-2022 End: 07-14-2022 Admission to same day surgery center 07/14/2022 Surgery General Surgery Rikki Rodrigues DMD, MD [address] [place] [address] [phone] [facility] I OSTEOTOMY [facility] OR Comment on above: [facility] OSTEOTOMY Start: 07-14-2022 End: 07-14-2022 Anesthesia consultation 07/14/2022 Anesthesia Event General Surgery Ki Atwood MD [address] [place] [phone] [facility] OR Start: 07-14-2022 End: 07-14-2022 LEFORTE I OSTEOTOMY [facility] I OSTEOTOMY Routine scheduled DIONNE (obstructive sleep apnea) 07/14/2022 7:30 AM EST [facility] Start: 07-14-2022 End: 07-14-2022 OSTEOTOMY, SAGITTAL SPLIT, BILATERAL OSTEOTOMY, SAGITTAL SPLIT, BILATERAL Routine scheduled DIONNE (obstructive sleep apnea) 07/14/2022 7:30 AM EST [facility] Start: 07-14-2022 Subsequent hospital visit by physician 07/14/2022 Hospital Encounter General Surgery Rikki Rodrigues DMD, MD [address] [place] [phone] [facility] OR Start: 07-08-2022 End: 07-08-2022 Patient encounter procedure 07/08/2022 Office Visit Presurgical Evaluation Gena Holbrook APRN-GREASER HELPER [address] [place] [phone] [facility] Pre Surgical Evaluation Start: 07-06-2022 End: 07-06-2022 Patient encounter procedure 07/06/2022 Office Visit Presurgical Evaluation Pierce Ramos FIELD SUPERINTENDENT-GREASER HELPER [address] [place] [phone] Preop testing (Primary Dx) [facility] Pre-Surgical Evaluation Comment on above: Preop testing (Primary Dx) Start: 06-15-2022 End: 06-15-2022 Patient encounter procedure 06/15/2022 Office Visit Ent-Otolaryngology Yi Moreno MD [address] [place] [phone] [facility] Otolaryngology (ENT) Start: 06-03-2022 End: 06-03-2022 Admission to same day surgery center 06/03/2022 Surgery Ambulatory Surgery Yi Moreno MD [address] [place] [phone] BRONCHOSCOPY, FLEXIBLE, DRUG INDUCED SLEEP ENDOSCOPY (DISE) [facility] Main OR PACU Comment on above: BRONCHOSCOPY, FLEXIBLE, DRUG INDUCED SLE EP ENDOSCOPY (DISE) Start: 06-03-2022 End: 06-03-2022 BRONCHOSCOPY, FLEXIBLE, DRUG INDUCED SLEEP ENDOSCOPY (DISE) BRONCHOSCOPY, FLEXIBLE, DRUG INDUCED SLEEP ENDOSCOPY (DISE) Routine scheduled DIONNE (obstructive sleep apnea) 06/03/2022 8:39 AM EDT PACU Procedure Rooms Start: 06-03-2022 Subsequent hospital visit by physician [facility] Main OR PACU Comment on above: Encounter for laboratory testing for sev ere acute respiratory syndrome coronavirus 2 (SARS-CoV-2) (Primary Dx) Start: 05-28-2022 End: 05-28-2022 Nursing evaluation of patient and report 05/28/2022 Nurse Visit Presurgical Evaluation [facility] Pre Surgical Evaluation Start: 05-22-2022 Influenza vaccination Influenza Vaccine (#1) [facility] Start: 04-22-2022 Influenza vaccination [facility] Start: 03-29-2022 End: 03-29-2022 Telemedicine consultation with patient 03/29/2022 Telemedicine Ent-Otolaryngology Yi Moreno MD [address] [place] [phone] [facility] (ENT) Start: 03-24-2022 FUV, Provider: Eileen Nichols, Status: Pen, Time: 3:50 PM FUV, Provider: Eileen Nichols, Status: Pen, Time: 3:50 PM [facility] 250 DO Work Phone: Start: 03-22-2022 Influenza vaccination [facility] Start: 02-25-2022 End: 02-25-2022 Admission to same day surgery center 02/25/2022 Surgery General Surgery Yi Moreno MD [address] [place] [phone] UVULOPALATOPHARYNGOPLASTY [facility] Main OR Comment on above: UVULOPALATOPHARYNGOPLASTY Start: 02-25-2022 Subsequent hospital visit by physician [facility] OR Comment on above: Encounter for laboratory testing for sev ere acute respiratory syndrome coronavirus 2 (SARS-CoV-2) (Primary Dx) Start: 02-25-2022 End: 02-25-2022 UVULOPALATOPHARYNGOPLASTY [facility] Start: 02-25-2022 End: 02-25-2022 Admission to same day surgery center 02/25/2022 Surgery General Surgery Yi Moreno MD [address] [place] [address] [phone] UVULOPALATOPHARYNGOPLASTY [facility] Main OR Comment on above: UVULOPALATOPHARYNGOPLASTY Start: 02-25-2022 Subsequent hospital visit by physician 02/25/2022 Hospital Encounter General Surgery Yi Moreno MD [address] [place] [address] Encounter for laboratory testing for severe acute respiratory syndrome coronavirus 2 (SARS-CoV-2) (Primary Dx) [facility] Comment on above: Encounter for laboratory testing for sev ere acute respiratory syndrome coronavirus 2 (SARS-CoV-2) (Primary Dx) Start: 02-25-2022 End: 02-25-2022 UVULOPALATOPHARYNGOPLASTY UVULOPALATOPHARYNGOPLASTY Routine scheduled DIONNE (obstructive sleep apnea) 02/25/2022 9:20 AM EDT [facility]IVE [facility] Start: 02-23-2022 End: 02-23-2022 Patient encounter procedure 02/23/2022 Office Visit Urology Elin Ballard APRN - GREASER HELPER [address] [place] [address] [facility] Start: 02-16-2022 End: 02-16-2022 Patient encounter procedure 02/16/2022 Office Visit Presurgical Evaluation Pierce Ramos APRN-CNP [address] [place] [address] [facility] Pre-[facility]urgical Evaluation Start: 01-08-2022 End: 01-08-2022 Patient encounter procedure 01/08/2022 Office Visit Urology Elin Ballard APRN - GREASER HELPER [address] [place] [address] [facility] Start: 01-05-2022 End: 01-05-2022 Cysto/uretero w/lithotripsy &indwell stent insrt CYSTOSCOPY URETEROSCOPY [facility] 01/05/2022 2:57 PM EDT [facility] Start: 12-06-2021 COVID-19 Vaccine (3 - Booster for Pfizer series) COVID-19 Vaccine (3 - Booster for Pfizer series) [facility] Start: 12-01-2021 NURSEVST, Provider: AUSTIN WALL PROCESS MANUFACTURING ENGINEER 1,[id number], Status: Pen, Time: 3:15 PM NURSEVST, Provider: AUSTIN WALL PROCESS MANUFACTURING ENGINEER 1,[id number], Status: Pen, Time: 3:[address] [facility] 250 DO Work Phone: Start: 09-02-2021 COVID-19 Vaccine (3 - Booster for Pfizer series) COVID-19 Vaccine (3 - Booster for Pfizer series) [facility] Start: 2020 Cholesterol [Mass/volume] in Serum or Plasma Cholesterol [facility] Start: 2020 Screening for malignant neoplasm of colon [facility] Start: 2015 Lipid panel Lipids [facility] Start: 2015 Screening for malignant neoplasm of breast Mammography [facility] Start: 2010 Diabetes screen Diabetes screen [facility] Start: 2005 Screening for malignant neoplasm of cervix [facility] Start: 1996 Screening for malignant neoplasm of cervix Pap smear [facility] Start: 1994 DTaP/Tdap/Td vaccine (1 - Tdap) DTaP/Tdap/Td vaccine (1 - Tdap) [facility] Start: 1993 Creatinine measurement Creatinine [facility] Start: 1993 Hepatitis C screening [facility] Start: 1993 Potassium [Moles/volume] in Serum or Plasma Potassium [facility] Start: 1993 Tetanus + diphtheria + acellular pertussis vaccine (product) Tdap Booster [facility] Start: 1990 HIV screening [facility] Start: 1987 Depression Monitoring Depression Monitoring [facility] Start: 1975 Screening for malignant neoplasm of colon Colonoscopy [facility] Assay of magnesium MAGNESIUM Lab STAT Daily until discontinued starting 07/16/2022, 2 completed [facility] Comment on above: Daily until discontinued starting 2021, 2 completed Assay of phosphorus inorganic PH OSPHORUS Lab STAT Daily until discontinued starting 07/16/2022, 2 completed [facility] Comment on above: Daily until discontinued starting 2021, 2 completed Basic metabolic 2000 panel - Serum or Plasma BASIC METABOLIC PANEL Lab STAT Daily until discontinued starting 07/16/2022, 2 completed [facility] Comment on above: Daily until discontinued starting 2021, 2 completed BRONCHOSCOPY, FLEXIB LE, DRUG INDUCED SLEEP ENDOSCOPY (DISE) BRONCHOSCOPY, FLEXIBLE, DRUG INDUCED SLEEP ENDOSCOPY (DISE) Routine scheduled DIONNE (obstructive sleep apnea) [facility] Calprotectin [Mass/m ass] in Stool [facility] CBC panel - Blood by Automated count COMPLETE BLOOD COUNT Lab STAT Daily until discontinued starting 07/16/2022, 2 completed [employer] Work Phone: Comment on above: Daily until discontinued starting 2021, 2 completed End: 08-12-2022 Culture, Urine [employer] Work Phone: Comment on above: 1 Occurrences starting 08/12/2022 until 08/12/2022 End: 12-13-2022 Culture, Urine [employer] Work Phone: Comment on above: 1 Occurrences starting 12/13/2022 until 12/13/2022 End: 07-14-2022 Ecg routine ecg w/least 12 lds trcg only w/o i&r EKG 12 LEAD - PERFORM MUSE Routine Once for 1 Occurrences starting 07/14/2022 until 07/14/2022 [employer] Work Phone: Comment on above: Once for 1 Occurrences starting 07/14/20 until 07/14/2022 Elastase.pancreatic [Mass/mass] in Stool [facility] Endomysial antibody IgA level [facility] Gliadin peptide IgA Ab [Units/volume] in Serum [facility] Gliadin peptide IgG Ab [Units/volume] in Serum [facility] HIV 1+2 Ab+HIV1 p24 Ag [Presence] in Serum or Plasma by Immunoassay [facility] IgA [Mass/volume] in Serum or Plasma [facility] End: 01-05-2022 INITIATE PACU OXYGEN THERAPY PROTOCOL Initiate PACU Oxygen Therapy Protocol Respiratory Care Routine Continuous until discontinued starting 01/05/2022 [facility] Comment on above: Continuous until discontinued starting 0 01/05/2022 Oxygen therapy [[facility] Initiate Oxygen Therapy Protocol Respiratory Care Routine As Needed until discontinued starting 01/05/2022 [facility] Work Phone: Comment on above: As Needed until discontinued starting End: 02-25-2022 Palatopharyngoplasty PALATOPHARYNGOPLASTY Procedures Routine One time for 1 Occurrences starting 02/25/2022 until 02/25/2022 [employer] Comment on above: One time for 1 Occurrences starting 02/2022 until 02/25/2022 Patient Education Hemorrhoids (DC) [facility] Work Phone: Rcnstj midface lefor t i 1 piece w/o bone graft RECONSTRUCTION MIDFACE, LEFORT I; 1 PIECE, W/O BONE GRAFT Procedures Routine DIONNE (obstructive sleep apnea) Ordered: 07/14/2022 [employer] Work Phone: Comment on above: Ordered: 07/14/2022 Rcnstj mndblr rami&/ bdy sgtl splt w/int rgd fi RECONSTRUCTION, MANDIBULAR RAMI &/OR BODY, SAGITTAL SPLIT; W/INT RIGID FIXATION Procedures Routine DIONNE (obstructive sleep apnea) Ordered: 07/14/2022 [employer] Comment on above: Ordered: 07/14/2022 End: 03-17-2022 SARS-CoV-2 (COVID-19) RNA [Presence] in Unspecified specimen by JOHNNIE with probe detection NOVEL CORONAVIRUS (COVID-19) Lab STAT Encounter for laboratory testing for severe acute respiratory syndrome coronavirus 2 (SARS-CoV-2) 1 Occurrences starting 02/15/2022 until 03/17/2022 [employer] Work Phone: Comment on above: 1 Occurrences starting 02/15/2022 until 03/17/2022 Surgical pathology procedure [facility] [employer] Work Phone: Comment on above: Release Upon Ordering for 1 Occurrences starting 02/25/2022, 1 completed Tissue transglutamin ase IgA Ab [Units/volume] in [facility] Tissue transglutamin ase IgG Ab [Units/volume] in [facility] UVULOPALATOPHARYNGOPLASTY UVULOP ALATOPHARYNGOPLASTY Routine scheduled DIONNE (obstructive sleep apnea) [employer] Immunizations Immunization Date Immunization Notes Care Provider Fa cili 07-08-2021 Pfizer-BioNTech COVID-19 Vacc 30 MCG/0.3ML Intramuscular Suspension Gena Kirby Work Phone: [facility] 06-17-2021 Pfizer-BioNTech COVID-19 Vacc 30 MCG/0.3ML Intramuscular Suspension Gena Kirby Work Phone: [facility] 250 DO Work Phone: 06-27-2013 influenza virus vaccine, whole virus Gena Kirby Work Phone: [facility] 250 DO Work Phone: Payers Date Payer Category Payer Self-pay [id number] 2021 Unknown 1975 Unknown [id number] 0.1.972212.3.579.2.593 1975 Unknown [id number] 2.16.84 0.1.674296.3.579.2.593 1975 Unknown [id number] 2..84 0.1.460947.3.579.2.59 1975 Unknown [id number] .16.84 0.1.236771.3.579.2.593 1975 Unknown [id number] .16.84 0.1.729682.3.579.2.593 1975 Unknown [id number] .16.84 0.1.079357.3.579.2.593 1975 Unknown [id number] 2.16.84 0.1.593378.3.579.2.593 1975 Unknown [id number] 2.16.84 0.1.307418.3.579.2.593 1975 Unknown [id number] 2.16.84 0.1.752519.3.579.2.593 1975 Unknown [id number] 2.16.84 0.1.580507.3.579.2.593 1975 Unknown [id number] 2.16.84 0.1.671467.3.579.2.593 1975 Unknown [id number] 2.16.84 0.1.461290.3.579.2.593 1975 Unknown [id number] 2.16.84 0.1.266164.3.579.2.593 1975 Unknown [id number] 2.16.84 0.1.751522.3.579.2.593 1975 Unknown [id number] .. 840.1.662580.3.579.2.732 1975 Unknown [id number] . 840.1.176211.3.579.2.732 1975 Unknown [id number] . 840.1.799055.3.579.2.732 1975 Unknown [id number] . 840.1.079650.3.579.2.732 1975 Unknown [id number] .. 840.1.783457.3.579.2.732 1975 Unknown [id number] . 840.1.962600.3.579.2.732 1975 Unknown [id number] . 840.1.516386.3.579.2.732 1975 Unknown [id number] 2.16. 840.1.193455.3.579.2.732 1975 Unknown [id number] 2.16. 840.1.034356.3.579.2.732 1975 Unknown [id number] 2.16. 840.1.972973.3.579.2.732 1975 Unknown [id number] 2.16. 840.1.413146.3.579.2.732 1975 Unknown [id number] 2.16. 840.1.177052.3.579.2.732 1975 Unknown [id number] 2.16. 840.1.054875.3.579.2.732 1975 Unknown [id number] 2.16. 840.1.150755.3.579.2.732 1975 Unknown [id number] 2.16.8 40.1.538862.3.579.2.598 1975 Unknown [id number] 2.16.8 40.1.766367.3.579.2.173 1975 Unknown [id number] 2.16.8 40.1.430382.3.579.2.173 1975 Unknown [id number] 2.16.8 40.1.741548.3.579.2.173 1975 Unknown [id number] 2.16.8 40.1.311829.3.579.2.173 1959 Unknown [id number] 1.2.840.885582.1.13.239.2.7.3.990020.31 5 1959 Unknown [id number] 1959 Unknown [id number] Medicaid [employer] [id number] 501 [id number] Unknown [id number] 2.16.8 40.1.666213.3.579.2.531 Unknown [id number] 2.16.8 40.1.435654.3.579.2.531 Unknown [id number] 2.16.8 40.1.745259.3.579.2.531 Unknown [id number] 2.16.8 40.1.474735.3.579.2.531 Social History Date Type Detail Facility Start: 02-16-2022 End: 06-18-2022 Occasional alcohol use Occasional alcohol use [facility] 250 DO Work Phone: Comment on above: 2 bottles of pop alonso ly.; Quit 2019; Start: 11-30-2021 End: 08-08-2023 Tobacco smoking status [facility] Ex-smoker [facility] Phone: End: 01-20-2021 History of tobacco use Cigarette Smoker [facility] Phone: Start: 11-30-2021 End: 06-18-2022 Tobacco use and exposure Smokeless tobacco non-user [facility] Phone: Start: 12-22-2021 End: 12-13-2022 Alcohol intake Lifetime non-drinker (finding) [facility] Phone: Start: 11-30-2021 Tobacco Comment occasional smo ker for 2 years, she quit over a year now [facility] Phone: Start: 1975 Sex Assigned At Not on file [facility] Phone: Start: 01-05-2022 End: 12-13-2022 Tobacco Comment occasional smoker for 2 years, she quit in 2020 [facility] Phone: Start: 12-26-2021 End: 01-05-2022 Exposure to SARS-CoV-2 (event) Not sure [facility] Phone: Tobacco smoking stat [facility] Tobacco smoking consumption unknown [facility] Sex Assigned At [facility] [employer] Other Start: 02-16-2022 End: 10-19-2022 Alcohol intake Ex-drinker (finding) [facility] End: 01-20-2021 History of tobacco use Current smoker [facility] Start: 1975 Sex Assigned At Female F [facility] Start: 10-18-2022 History SDOH Social Connections Phone 4 [facility] Start: 10-18-2022 History SDOH Social Connections Get Together 2 [facility] Start: 10-18-2022 History SDOH Social Connections Confucianist 1 [facility] Start: 10-18-2022 History SDOH Social Connections Living 7 [facility] Start: 10-18-2022 History SDOH Physica l Activity DPW 0 [facility] Start: 10-17-2022 Education 12 [facility] Procedure Code Equipment Code Equipment Origin al Text Equipment Identifier Dates Stent Uret 6 Frx 24 Cm Firm Monofilament Tria - [id number] Start: 01-05-2022 Plate Bone 4mml [id number] Ea1 [id number] - [id number] Start: 07-14-2022 Screw 2.0 X 10mm Self-Tapping Pc1 50- - [id number] Start: 07-14-2022 Pin Cross 2.0 X 5mm Pc1 [id number] - [id number] Start: 07-14-2022 Beata 8mm Screw [id number] Start: 07-14-2022 Goals Date Patient Goal Desired Activity /State Functional Status Date Assessment Result Facility 10-14-2021 PHQ-9 [id number] Moder ately Severe (15-19) [facility] 250 DO Work Phone: Clinical Notes 11-09-2021 to 08-08-2023 Note Date & Type Note Facility 08-08-2023 Procedure note [facility] 06-30-2023 Evaluation note Encounter Date Diagnosis Assessment Notes Jun, Diarrhea, unspecified type (ICD-10 - R19.7) DIARRHEA HAS BEEN ONGOING DAILY SINCE , PRETTY MUCH EVERYDAY. PATIENT HAVING 2-3 BOWEL MOVEMENTS DAILY, DENIES ANY BLOOD OR MUCAS IN STOOLS. SOME NAUSEA IS ASSOCIATED WITH THE DIARRHEA. PATIENT TO START DAILY PROBIOTIC, 1 CAPSULE DAILY. INCREASE FIBER WITH METAMUCIL GUMMIES, 3 GUMMIES DAILY. INCREASE DAILY WATER INTAKE, 6-8 8OZ GLASSES DAILY. WILL PROCEED WITH STOOL STUDIES, LABS AND COLONOSCOPY. Jun, Fecal urgency (ICD-10 - R15.2) [facility] Other 10-17-2023 Evaluation note* Encounter Date Diagnosis Assessment Notes Treatment Notes Treatment Clinical Notes May, Sore throat (ICD-10 - J02.9) May, Viral URI with cough (ICD-10 - J06.9) Advised patient that rapid COVID/Influenza A/B test and rapid Strep test was negative today. Advised patient that will treat as viral URI. Supportive care as directed, increase fluids and rest, Tylenol/Motrin as directed, OTC cough/cold remedies as directed on packaging such as Cordicidin HBP, cool mist humidifier, throat lozenges. Discussed infection control practices such as good hand washing and mask wearing. Patient to follow up with PCP if symptoms persist or worsen despite treatment. Immediate eval for SOB, difficulty breathing, chest pain, fevers that do not break with antipyretic or any other concerning symptoms as reviewed on patient education handout. Patient verbalizes understanding and is agreeable to treatment plan. Patient left in stable condition May, Contact with and (suspected) exposure to covid-19 (ICD-10 - Z20.822) [facility] Other 06-07-2023 Telephone encounter Note* Telephone Encounter - Rikki Rodrigues DMD, MD - 01/26/2023 10:18 AM EDT Called and left voicemail for patient. Post-op Home Sleep Test reviewed from [facility], and there is considerable improvement. Pre-op AHI is 102, now down to 31. Pre-op O2 Carlene of 71%, now up to 82%. However, still with considerable desat time. There are notes from Dr. Moreno evaluating for INSPIRE I presume, but nothing since November. Asked patient for call back or ISBXhart message with if she has been able to continue with Dr. Moreon at his new office, or if she needs referral to another [facility] Work Phone: 1(305) 641-740306-07-2023 Miscellaneous Notes* Telephone Encounter - Rikki Rodrigues DMD, MD - 01/26/2023 10:18 AM EDT Called and left voicemail for patient. Post-op Home Sleep Test reviewed from [facility], and there is considerable improvement. Pre-op AHI is 102, now down to 31. Pre-op O2 Carlene of 71%, now up to 82%. However, still with considerable desat time. There are notes from Dr. Moreno evaluating for INSPIRE I presume, but nothing since November. Asked patient for call back or ISBXhart message with if she has been able to continue with Dr. Moreno at his new office, or if she needs [facility] documented in this [id number] NoteOPERATIVE NOTE OPERATION DATE: 11/12/2022 PROCEDURE: Robotic assisted laparoscopic salpingectomy. PREOPERATIVE DIAGNOSIS: Multiparity, desires permanent sterilization. POSTOPERATIVE DIAGNOSIS: Multiparity, desires permanent sterilization. ANESTHESIA: General. SURGEON: Oswald Harrington D.O. FLORIST DESIGNER: VIRAJ Salazar URINE OUTPUT: Yellow and clear. BLOOD LOSS: 5 mL SPECIMEN: Bilateral tubes. FINDINGS: Normal appearing ovaries. Normal appearing tubes and uterus. PROCEDURE: The patient was taken back to the OR where she was prepped and draped in the normal sterile fashion after being placed in the dorsal lithotomy position, after being placed under general anesthesia without difficulty. A wet sponge stick was placed into the patient's vagina. Attention was then turned to the patient's abdomen, where a scalpel was used to make a small infraumbilical incision. The S retractors were then used to dissect the underlying layers until the fascia could be seen. The fascia was then grasped with Ronit clamps and tented up. A knife was then used to make a small incision to the fascia. The muscle was identified, at that time two sutures of #0 Vicryl on a GI needle was then used and placed through the fascia. The peritoneum was then identified and entered bluntly. The 10-4 Sheila was then placed into the patient's abdomen. This was confirmed with direct visualization of the bowel, using the laparoscope. The patient's abdomen was then insufflated using approximately 4 liters of CO2 gas. Survey of the patient's abdomen demonstrated normal appearing ovaries, uterus and tubes. A second and third lateral port, which was 7-8 in size and 5 mm in size, was then placed laterally after incision was made in the skin under direct visualization. The patient's tube on the patient's right side was identified. The tube was then tented up using a grasper. The LigaSure was used to transect and coagulate the mesosalpinx from the fimbriated end to the insertion at the uterus; the tube was amputated and removed in its entirety. Excellent hemostasis was noted. This was performed on the contralateral side as well. The lateral ports were then removed under direct visualization with excellent hemostasis. The abdomen was desufflated. All instruments were removed from the patient's abdomen. The fascia was closed using the #0 Vicryl on GI needle. The skin was closed using 4-0 Vicryl subcuticularly. All instruments were removed from the patient's vagina as well. The patient was taken out of the dorsal lithotomy position and placed in the supine position and taken to recovery in stable condition. Sponge, lap and needle counts were correct [facility]2.[id number] Telephone encounter Note* Telephone Encounter - Tatiana Morris - 11/04/2022 3:51 PM EDT Opened in error [id number] Miscellaneous Notes* Telephone Encounter - Tatiana Morris - 11/04/2022 3:51 PM EDT Opened in error documented in this [id number] Telephone encounter Note* Telephone Encounter - Rikki Rodrigues DMD, MD - 11/01/2022 2:32 PM EDT Called patient and left voicemail. Advised that order for post-op PSG was faxed to [facility]. Left number to call to schedule study at her convenience ([phone]) [facility] Work Phone: 1(315) 234-549503-13-2023 Miscellaneous Notes* Telephone Encounter - Rikki Rodrigues DMD, MD - 11/01/2022 2:32 PM EDT Called patient and left voicemail. Advised that order for post-op PSG was faxed to [facility] [place] [facility]. Left number to call to schedule study at her convenience ([phone]) documented in this [id number] History general Narrative - Reported* Type Description Date Medical History anxiety Medical History Hypertension Medical History sleep apnea Surgical History C section Surgical History cholecystectomy Surgical History fallopian tubes removed october 21 Hospitalization History see above Hospitalization History no history of ps ychiatric hospitalization, substance abuse, and suicide attempts, but she is history of ongoing treatment of depression and counseling for depression, anxiety Hospitalization History dehydration [facility] Other 01-18-2023 History of Present illness Narrative* Rikki Rodrigues DMD, MD - 09/08/2022 9:09 AM EST Teaching Physician Note: I saw and evaluated the patient. I personally obtained the ulloa and critical portions of the historyand physical exam. I reviewed the resident's documentation and discussed the patient with the resident. I agree with the resident's medical decision making as documented in the resident's note. 6wk s/p MMA for severe DIONNE. Swelling is minimal. Occlusion with the dentures in is slightly alteredas expected. Patient hasn't been wearing upper denture or lower RPD. Lower RPD doesn't seat, presumably because of teeth shifting from not wearing prosthesis. There is normal scarring in the maxillary vestibule, but this makes it uncomfortable for her to seat the denture. Discussed with her the need to massage this area and denture should seat very uneventfully. Will try to get PSG scheduled at her local sleep physician. Rikki Rodrigues DMD, MD * Seferino Vaz DMD - 08/30/2022 11:37 AM EST Images from the original note were not included. [facility] FOLLOW UP VISIT Chief Complaint: Pt presents for follow up. History of present illness: 47 yrs old White female with pmhx significant for DIONNE and excessive daytime sleepiness who is 6 weeks s/p MMA for the treatment of DIONNE. Patient presents for a follow up. Patient endorses no noticeable change in her airway or sleep. Patient also endorses numbness on the left mid face, and her jaw feels off Review of Systems: no change Physical findings: Incisions are fully epithelialized Sutures: no longer present No purulence or erythema noted No signs or symptoms of infection Palpable scar tissue on the maxillary vestibule CNV1, V2, VII intact b/l V2 hypoesthesia on the left > right Able to distinguish soft and sharp b/l Occlusion stable and reproducible With dentures in place: Dentures do not seat fully. Slight denture clasp tightness with lower partial denture Post operative CBCT 08/30/22 Pre-operative volumetric airway analysis 07/02/22 Post operative volumetric airway analysis 08/30/22 Assessment / Diagnosis: 47 yrs old White female with pmhx significant for DIONNE and excessive daytime sleepiness who is 6 weeks s/p MMA for the treatment of DIONNE. Patient is healing appropriately. CBCT evaluation shows increased volumetric airway post MMA. Presents with CNV2 hyposthesia on the left side more than the right that may improve with time. Patient's condition is appropriate for post operative state. Plan: -Patient instructed to wear denture daily and massage scar tissue along gum line under upper lips nightly. -Complete sleep study with Dr. Mcmanus in [place], [place] in 1.5 months -Follow up with patient's general dentist, Sinan Jones DDS for denture adjustment Follow-Up: After new sleep study Follow up sooner with new or worsening symptoms. [facility] LEE Jones [facility] [address] [place] [address] Wiley Mcmanus MD [facility]amed [facility] [place] [address] Seferino Vaz DMD [facility] Resident documented in this [id number] Instructions* Patient Instructions* Wilfredo Vang DMD - 08/30/2022 12:07 PM EST With clean hands massage gums under your upper lip daily at night time No food restrictions Follow up with your dentist We will contact your Sleep Center in [place] to have a Sleep Study completed in 1.5 months. documented in this [id number] Instructions* Patient Instructions* Wilfredo Vang DMD - 08/30/2022 12:07 PM EST With clean hands massage gums under your upper lip daily at night time No food restrictions Follow up with your dentist We will contact your Sleep Center in [place] to have a Sleep Study completed in 1.5 months. documented in this [id number] History of Present illness Narrative* Seferino Vaz DMD - 08/30/2022 11:37 AM EST Images from the original note were not included. ORAL SURGERY CLINIC FOLLOW UP VISIT Chief Complaint: Pt presents for follow up. History of present illness: 47 yrs old White female with pmhx significant for DIONNE and excessive daytime sleepiness who is 6 weeks s/p MMA for the treatment of IDONNE. Patient presents for a follow up. Patient endorses no noticeable change in her airway or sleep. Patient also endorses numbness on the left mid face, and her jaw feels off Review of Systems: no change Physical findings: Incisions are fully epithelialized Sutures: no longer present No purulence or erythema noted No signs or symptoms of infection Palpable scar tissue on the maxillary vestibule CNV1, V2, VII intact b/l V2 hypoesthesia on the left > right Able to distinguish soft and sharp b/l Occlusion stable and reproducible With dentures in place: Dentures do not seat fully. Slight denture clasp tightness with lower partial denture Post operative CBCT 08/30/22 Pre-operative volumetric airway analysis 07/02/22 Post operative volumetric airway analysis 08/30/22 Assessment / Diagnosis: 47 yrs old White female with pmhx significant for DIONNE and excessive daytime sleepiness who is 6 weeks s/p MMA for the treatment of DIONNE. Patient is healing appropriately. CBCT evaluation shows increased volumetric airway post MMA. Presents with CNV2 hyposthesia on the left side more than the right that may improve with time. Patient's condition is appropriate for post operative state. Plan: -Patient instructed to wear denture daily and massage scar tissue along gum line under upper lips nightly. -Complete sleep study with Dr. Mcmanus in [place], [place] in 1.5 months -Follow up with patient's general dentist, Sinan Jones DDS for denture adjustment Follow-Up: PRN Follow up sooner with new or worsening symptoms. Sinan Jones DDS [facility] [place] [address] Wiley Mcmanus MD Formerly Named [facility] [address] [place] [id number] Seferino Vaz DMD FS Resident documented in this [id number] Telephone encounter Note* Telephone Encounter - Feliz Villegas DDS - 08/11/2022 8:07 AM EST Called the patient twice this week to remind her regarding the follow up this Tuesday (08/13/22) andto offer to follow up sooner if she prefers. Patient did not answer. Message was left. Also attempted to call the alternative work number listed. Was unable to reach the patient at this number. Feliz Villegas DDS, MD OM- PGY4 [phone] [employer] Work Phone: 1(121) 154-391712-21-2022 Miscellaneous Notes* Telephone Encounter - Feliz Villegas DDS - 08/11/2022 8:07 AM EST Called the patient twice this week to remind her regarding the follow up this Tuesday (08/13/22) andto offer to follow up sooner if she prefers. Patient did not answer. Message was left. Also attempted to call the alternative work number listed. Was unable to reach the patient at this number. Feliz Villegas DDS, MD OMFS- PGY4 [phone] documented in this [id number] Telephone encounter Note* Telephone Encounter - Oliver Rogers DMD - 08/02/2022 4:26 PM EST Called pt. No answer. LVM with callback instructions. Per Dr. Rodrigues, we will not write any work excuse notes or prescribe any pain meds until pt is seenin person for follow up. Oliver Rogers DMD [employer] Work Phone: 1(649) 632-683912-12-2022 Miscellaneous Notes* Telephone Encounter - Oliver Rogers DMD - 08/02/2022 4:26 PM EST Called pt. No answer. LVM with callback instructions. Per Dr. Rodrigues, we will not write any work excuse notes or prescribe any pain meds until pt is seenin person for follow up. Oliver Rogers DMD * Telephone Encounter - Dora Locosa - 08/02/2022 11:44 AM EST Pt called because she is unable to make it to her appt today due to being on pain meds and not having someone to drive her the hour and a half it takes to get here so she had to reschedule for a latter date. Pt would like to know if she can get a note excusing her from work until she comes back in to see us as she states that she still has pain and swelling currently and doesn't feel that she is ready to go back quite yet. Pt would like that letter send to her email if possible. Let her know that we may not be able to send that through her email due to possible HIPPA regulations and she wouldlike us to contact her to discuss other options if that is the case. Email: [email or web address] Contact pt @[phone] for questions/concerns documented in this [id number] Telephone encounter Note* Telephone Encounter - Zayda Loco - 08/02/2022 11:44 AM EST Pt called because she is unable to make it to her appt today due to being on pain meds and not having someone to drive her the hour and a half it takes to get here so she had to reschedule for a latter date. Pt would like to know if she can get a note excusing her from work until she comes back in to see us as she states that she still has pain and swelling currently and doesn't feel that she is ready to go back quite yet. Pt would like that letter send to her email if possible. Let her know that we may not be able to send that through her email due to possible HIPPA regulations and she wouldlike us to contact her to discuss other options if that is the case. Email: [email or web address] Contact pt @[phone] for questions/concerns [id number] Telephone encounter Note* Telephone Encounter - Mikal Rodgers DMD - 07/28/2022 3:45 PM EST Spoke with patient and instructed her to come in earlier Oliver afternoon, preferably between 1:00 and 2:00 pm. Also reminded her to bring dentures with her as we would like to assess her occlusion with dentures in place. Patient voiced understanding and agreed to arrive early for her appointment on Tuesday. Mikal Rodgers DMD Oral & Maxillofacial Surgery, PGY-3 Team Pager: [phone] [facility] Work Phone: [phone]) 908-678912-07-2022 Miscellaneous Notes* Telephone Encounter - Mikal Rodgers DMD - 07/28/2022 3:45 PM EST Spoke with patient and instructed her to come in earlier Oliver afternoon, preferably between 1:00 and 2:00 pm. Also reminded her to bring dentures with her as we would like to assess her occlusion with dentures in place. Patient voiced understanding and agreed to arrive early for her appointment on Tuesday. Mikal Rodgers DMD Oral & Maxillofacial Surgery, PGY-3 Team Pager: [phone] documented in this [id number] History of Present illness Narrative* Mikal Rodgers DMD - 07/23/2022 2:41 PM EST ORAL SURGERY CLINIC TELEPHONE FOLLOW UP VISIT Chief Complaint: Pt presents for telephone follow up. Patient is 1 weeks s/p MMA. She states that she is still very swollen and is having difficulty eating due to the swelling. Her pain is appropriately controlled. She is adherent with liquid diet. She has not had maxillary denture in place due to swelling and discomfort. Review of Systems: no change Physical findings: Pain appropriately controlled Patient has been hemostatic Compliant with liquid diet Reported paresthesia in the distribution of V1 and V2 Assessment / Diagnosis: Normal postoperative course. Healing as expected. 47 year old female 1 week s/p MMA for treatment of DIONNE. She is recovering appropriately for time postoperative. Patient now requires in person follow up appointment for postoperative evaluation. Plan: Follow-Up: Monday 07/[address] Rodrigues Follow up sooner with new or worsening symptoms. Mikal Rodgers DMD Oral & Maxillofacial Surgery, PGY-3 Team Pager: [phone] documented in this [id number] History of Present illness Narrative* Saleem Mi DMD - 07/19/2022 8:28 AM EST Images from the original note were not included. Initial pre-surgical workup photos: documented in this [id number] Note* Care Plan Note - Penny Brown RN - 07/17/2022 12:33 PM EST Problem: Discharge Planning: Goal: Discharge needs of the adult patient will be met 07/17/2022 1233 by Penny Brown RN Outcome: Completed 07/17/2022742 by Penny Brown RN Outcome: Progressing Discharge instructions provided to patient with paper scripts and tylenol MEDS to beds. No questions about instructions or medications at this time. IV removed and intact upon removal. Additional home care supplies provided. Patient discharged home with family member. [id number] Miscellaneous Notes* Care Plan Note - Penny Brown RN - 07/17/2022 12:33 PM EST Problem: Discharge Planning: Goal: Discharge needs of the adult patient will be met 07/17/2022 1233 by Penny Brown RN Outcome: Completed 07/17/2022 0743 by Penny Brown RN Outcome: Progressing Discharge instructions provided to patient with paper scripts and tylenol MEDS to beds. No questions about instructions or medications at this time. IV removed and intact upon removal. Additional home care supplies provided. Patient discharged home with family member. * Care Plan Note - Penny Brown RN - 07/17/2022 7:43 AM EST Problem: Routine Care: Goal: Patient care will be managed and maintained throughout hospital stay per unit specific routine care procedure Outcome: Progressing Purposeful rounding and assessment done per protocol. Problem: Acute Pain: Goal: Ability to identify pain intensity on a pain scale and rate it consistently will be achieved and maintained Outcome: Progressing Scheduled and PRN medication provided per orders Problem: Alteration in Respiratory Status: Goal: Achieve Optimal Respiratory Status with Minimal Ventilatory/Oxygen Support Outcome: Progressing Problem: Impaired Skin Integrity: Goal: Acheive wound healing without signs and symptoms of infection Outcome: Progressing Problem: Risk for Infection: Goal: Risk for infection will be reduced Outcome: Progressing Problem: Altered Nutrition: Goal: Achieve developmentally appropriate nutritional intake as clinically indicated Outcome: Progressing Full liquid diet Problem: VTE Prophylaxis: Goal: Will be free of DVT Outcome: Progressing Problem: Safety: Goal: Patient will remain free of falls during hospital stay Outcome: Progressing Call light within reach. Problem: Discharge Planning: Goal: Discharge needs of the adult patient will be met Outcome: Progressing * Care Plan Note - Lauren Crawford RN - 07/15/2022 12:34 PM EST Problem: Routine Care: Goal: Patient care will be managed and maintained throughout hospital stay per unit specific routine care procedure Outcome: Progressing Problem: Acute Pain: Goal: Ability to identify pain intensity on a pain scale and rate it consistently will be achieved and maintained Outcome: Progressing Problem: Alteration in Respiratory Status: Goal: Achieve Optimal Respiratory Status with Minimal Ventilatory/Oxygen Support Outcome: Progressing Problem: Impaired Skin Integrity: Goal: Acheive wound healing without signs and symptoms of infection Outcome: Progressing Problem: Risk for Infection: Goal: Risk for infection will be reduced Outcome: Progressing Problem: Altered Nutrition: Goal: Achieve developmentally appropriate nutritional intake as clinically indicated Outcome: Progressing Problem: VTE Prophylaxis: Goal: Will be free of DVT Outcome: Progressing Problem: Safety: Goal: Patient will remain free of falls during hospital stay Outcome: Progressing Problem: Discharge Planning: Goal: Discharge needs of the adult patient will be met Outcome: Progressing * Care Plan Note - Alon Cotton RN - 07/15/2022 4:46 AM EST Problem: Discharge Planning: Goal: Discharge needs of the adult patient will be met Outcome: Not Progressing Note: Patient to remain in SICU Problem: Routine Care: Goal: Patient care will be managed and maintained throughout hospital stay per unit specific routine care procedure Outcome: Progressing Note: Per SICU protocol. Problem: Acute Pain: Goal: Ability to identify pain intensity on a pain scale and rate it consistently will be achieved and maintained Outcome: Progressing Note: Patient reports pain to nurse using numeric scale Problem: Alteration in Respiratory Status: Goal: Achieve Optimal Respiratory Status with Minimal Ventilatory/Oxygen Support Outcome: Progressing Problem: Impaired Skin Integrity: Goal: Acheive wound healing without signs and symptoms of infection Outcome: Progressing Note: Labs monitored daily, temperature monitored Q4 Problem: Risk for Infection: Goal: Risk for infection will be reduced Outcome: Progressing Note: Patient vitals monitored q1hr. Patient labs monitored as per MD order. Antibiotics administered per MD order. Problem: Altered Nutrition: Goal: Achieve developmentally appropriate nutritional intake as clinically indicated Outcome: Progressing Note: Patient diet progressed to clear diet Problem: VTE Prophylaxis: Goal: Will be free of DVT Outcome: Progressing Note: SCDs maintained. Lovenox or Heparin administered per MD order. Problem: Safety: Goal: Patient will remain free of falls during hospital stay Outcome: Progressing Note: Call light within reach. Bed in lowest position and wheels locked. CR monitoring. Patient free of falls/injuries during shift. * Brief Operative Note - Rikki Rodrigues DMD, MD - 07/14/2022 8:30 AM EST Brief Operative Note MAIN OR 12 Isabelle Hewitt 47 year old female Surgical Contact Serial Number: [id number] Preoperative Diagnosis: DIONNE (obstructive sleep apnea) [G47.33] Postoperative Diagnosis: * DIONNE (obstructive sleep apnea) [G47.33] Procedures: Surgical CPTs Procedures RECONSTRUCTION MIDFACE, LEFORT I; 1 PIECE, W/O BONE GRAFT RECONSTRUCTION, MANDIBULAR RAMI &/OR BODY, SAGITTAL SPLIT; W/INT RIGID FIXATION No data filed Surgeon(s): Surgeon(s): Rikki Rodrigues DMD, MD Staff: Scrub: Annelise Saeed RN; Babs Wells RN Carton Filling Machine Operator Nurse: Stephanie Brannon RN; Babs Wells RN Canine Enforcement Officer: Margot Ovalles DDS; Saleem Mi DMD Anesthesia: General Anesthesiologist: Ki Atwood MD CAA: Edwina Warren CAA; Delia Morris CAA; Zenia Centeno CAA Specimen(s): * No specimens in log * Estimated Blood Loss: 350cc Lines/Drains: Peripheral IV Access: 07/14/22 0650 18 gauge Anterior;Right Forearm (Active) Temporarily Retained Foreign Object: Yes Location: Inside both cheeks Object: Telfa Dressing Anticipated removal date: 07/14/22 (this evening) Findings: Normal anatomy Complications: None Status at end of surgery: Stable Activity: Ad Beata and HOB elevated Surgical wound class: Yes, wound was clean contaminated. Patient Class: Surgery Admit. Is this a patient scheduled as an outpatient that needs to be admitted as an inpatient? No Dr. Rodrigues was present in the OR for the critical portion of the procedure and procedure sign-out. Signed by Rikki Rodrigues DMD, MD 07/14/2022 12:58 PM * Blood Attestation - Ki Atwood MD - 07/14/2022 7:06 AM EST Blood Attestation ATTESTATION OF INFORMED CONSENT FOR BLOOD The transfusion of blood and/or blood components were discussed with the patient and/or legal dermatology sales representative. The risks, benefits and alternatives were reviewed. Questions regarding blood transfusions were answered. The patient /or the patient s legal dermatology sales representative agree with the plan for transfusion of blood and/or blood components. * Anesthesia Attestation - Ki Atwood MD - 07/14/2022 7:06 AM EST Anesthesia Attestation ATTESTATION OF INFORMED CONSENT FOR ANESTHESIA Anesthesia options were discussed with the patient and/or legal dermatology sales representative. The risks, benefits and alternatives were reviewed. Questions regarding anesthesia were answered. Patient and/or legal dermatology sales representative knows such anesthetics and procedures may be performed by Resident physicians, Certified Anesthesiologist Assistants, or Certified Nurse Anesthetists under the supervision of a physician. The patient /or the patient s legal representativeagree with the plan for anesthesia. documented in this [id number] [place] [address] Isabelle Hewitt Date of : 1975 47 year old female Attending Rikki Rodrigues DMD, MD Date of Admission 07/14/2022 Date of Discharge 07/17/2022 Final Diagnosis: DIONNE (obstructive sleep apnea) Hospital Problems as of 07/17/2022 * (Principal) DIONNE (obstructive sleep apnea) Discharge Procedure Orders RECONSTRUCTION MIDFACE, LEFORT I; 1 PIECE, W/O BONE GRAFT RECONSTRUCTION, MANDIBULAR RAMI AND /OR BODY, SAGITTAL SPLIT; W/INT RIGID FIXATION Future Appointments Date Time Provider Department Center 07/23/2022 2:30 PM Rikki Rodrigues DMD, MD [facility] 10/19/2022 8:45 AM Yi Moreno MD [facility] E[facility] Click the Form Tab Reason for Hospitalization Maxillomandibular advancement for symptomatic sleep apnea Significant Findings Obstructive sleep apnea Hospital Course Patient is s/p MMA for sleep apnea on 07/14/2022. POD1-POD3 were uneventful. Patient has been sating appropriately on RA. Currently normotensive. Fluids have been discontinued as she is taking adequate PO, voiding spontaneously and pain is adequately controlled. I provided the patient and/or family/surrogate with the following information: Explanation of the primary diagnosis, and secondary diagnoses where applicable, including test results, Discussion of any new medications and treatments, including expected benefits and potential major side effects, Explanation of previous treatments or medications that are discontinued, and Discussion of post-hospital day-to-day care needs MEDICATIONS Pain medication should be taken only during the time that you feel significant discomfort. If the pain is severe the prescription medication can be used. However, if only mild discomfort is experienced, try to use a less potent, over the counter medication such as Ibuprofen and/or Tylenol. These can be taken in crushed tablets or in liquid form. Antibiotics: This medicine should be taken at the appropriate interval as described on the bottle. Be sure not to miss any doses and take the medicine until it is gone. Lip ointment: Keep enough ointment, such as Vaseline, on the lips to keep them looking wet. SINUS PRECAUTIONS Due to the upper jaw surgery your sinuses may be filled with blood. It is normal for blood clots to come out of your nose. However profuse bright red blood may be of concern and please page the resident hollow tile partition erector Do not blow your nose for 2 weeks, you may wipe your nose. Do not sneeze with mouth closed (have lips/mouth open while sneezing). Do not drink through a straw or smoke DRINKING Attempt to drink from a cup as soon as possible. While some fluid may spill when drinking, a cup is still the most effective way for taking fluids. The use of a sippy cup like those used by toddlers may be helpful for the first few days. If drinking from a cup seems to be impossible, continue using the syringe with the tubing attached. Another alternative is to obtain a squeeze bottle to squirt fluid into your mouth. DIET Your diet should be a pureed or blenderized diet. While this can include soups, and food with baby food consistency, this type of diet does not necessarily mean foods that are of liquid consistency. You can also eat foods such as mashed potatoes, applesauce, oatmeal and pudding. It may be difficult to open your mouth wide enough to get a spoon inside. A small baby sized spoon may be helpful. Some sort of diet supplement such as Boost, Ensure, or similar substitutes may be used once or twice a day to increase calorie intake. ELASTICS Usually some types of elastics (small rubber bands) are used during the time immediately after surgery. These rubber bands are placed around small hooks on the braces or arch wires. The purpose of these small elastics is to help train you to bite into the new jaw position and to limit jaw function. At time there is a plastic splint wired either to the upper or lower jaw. This splint has small indentations for each tooth to bite into. With the elastics in place and your teeth together, you should see that the teeth fit together into the grooves in the splint. Elastics will be replaced at your follow up appointments You will be taught how to remove and place elastics During follow up the elastics will be lightened as tolerated HYGIENE It is extremely important for you to keep all areas inside your mouth clean after surgery. You should brush your teeth and rinse your mouth after eating. Since you will most likely be eating small meals five or six times a day you will need to clean your teeth at each of these intervals. Each time you brush your teeth place a small amount of toothpaste on the toothbrush and brush all areas of the braces on top and bottom. Also brush all around the splint as best as you can. Rinse your (more content not included)...The [employer] [id number] Note OMFS PROGRESS NOTE Isabelle Hewitt is a 47 year old yo female with PMH of DIONNE who is HOD3 s/p MMA for sleep Apnea. She rates pain as 2/10. Endorses taking adequate PO. Patient seen resting in bed. Patient doing well, no complaints. Physical Exam: Vitals: BP 109/80 (BP Location: right arm) Pulse 54 Temp 98.3 ???F (36.8 ???C) (Oral) Resp 18 Ht 1.575 m (5' 2 ) Wt 90 kg (198 lb 6.6 oz) LMP (LMP Unknown) SpO2 96% BMI 36.29 kg/m??? Vital sign ranges over the past 24 hours (retrieved 07/17/2022 at 8:58 AM): Tmax (24 hours): 98.3 ???F (36.8 ???C) Pulse Av.7 Min: 54 Max: 80 Systolic (24hrs), Av , Min:95 , Max:132 Diastolic (24hrs), Av, Min:68, Max:93 MAP (mmHg) Av.6 mmHg Min: 82 mmHg Max: 100 mmHg Resp Av.3 Min: 12 Max: 18 SpO2 Av % Min: 92 % Max: 100 % Intake/Output Summary (Last 24 hours) at 07/17/2022 0858 Last data filed at 07/17/2022 0659 Gross per 24 hour Intake 2623.75 ml Output 2000 ml Net 623.75 ml General: Resting comfortably in bed Neuro: CN VII, V intact b/l Pulm: Breathing comfortably on RA Cardiac: Limbs WWP HEENT: EOMI, PERRLA, No ear abnormalities, nares patent w/o discharge or obstruction. SARAH 40mm, Intraoral incisions are hemostatic w/no dehiscence, < 2 sec capillary refill. Post-op edema is as expected and mild for post-op day 3. Extremities: VAZQUEZ Psych: Normal mood and affect Labs: Basic Metabolic Panel Na K Cl CO2 Gap Glu BUN Cr Ca Mg PO4 07/17/22221 1.8 07/17/22221 144 3.7 105 30 13 85 10 0.84 7.9 07/17/22221 2.4 CBC/PT/INR WBC RBC Hgb Hct MCV RDW Plt PT aPTT INR 07/17/22221 8.7 3.33 10.8 32.8 99 13.7 214 WBC/Diff None MEDS: Current Facility-Administered Medications Medication Dose Route Frequency Last Rate Last Admin dextrose 5 % and NaCl 0.45 % iv infusion Intravenous Continuous 75 mL/hr at 07/16/22 1000 New Bag at 07/16/22 1000 enoxaparin (LOVENOX) 40 MG/0.4ML injection 40 mg 40 mg Subcutaneous Daily 40 mg at 07/16/22 0811 acetaminophen (TYLENOL) 650 MG/20.3ML oral solution SF 650 mg Oral Every 4 hours 650 mg at 07/17/22 0206 OLANZapine (ZyPREXA ZYDIS) disintegrating tablet 10 mg Oral At Bedtime 10 mg at 07/16/222043 oxyCODONE (ROXICODONE) 5 mg/5 mL oral solution 5 mg Oral Q4H PRN 5 mg at 07/17/22 0409 oxyCODONE (ROXICODONE) 5 mg/5 mL oral solution 10 mg Oral Q4H PRN insulin lispro (HumaLOG) 100 UNIT/ML injection 2-9 Units Subcutaneous 3x Daily AC 2 Units at 07/16/22 1226 ampicillin-sulbactam (Unasyn) 3000 mg in NS 100 mL ivpb 3,000 mg Intravenous Q6H Antibiotic 200 mL/hr at 07/17/22 0406 3,000 mg at 07/17/22 0406 atorvastatin (LIPITOR) tablet 20 mg Oral Daily 20 mg at 07/16/22 0811 clonazePAM (KlonoPIN) tablet 1 mg Oral Q12H PRN 1 mg at 07/16/22 1840 levothyroxine (SYNTHROID) tablet 50 mcg Oral Before Breakfast 50 mcg at 07/17/22 0409 metformin (GLUCOPHAGE) tablet 500 mg Oral Daily 500 mg at 07/16/22 0812 oxybutynin (DITROPAN) 5 MG tablet 5 mg Oral 3x Daily 5 mg at 07/16/22 1358 venlafaxine (EFFEXOR XR) 24 hour capsule 75 mg Oral Daily 75 mg at 07/16/22 0811 chlorhexidine (PERIDEX) 0.12 % oral solution 15 mL Swish AND Spit 2x Daily 15 mL at 07/16/22 204 famotidine (PEPCID) tablet 20 mg Oral 2x Daily 20 mg at 07/16/22 204 ibuprofen (MOTRIN) tablet 600 mg Oral Q6H PRN ondansetron (ZOFRAN) 4 MG/2ML injection 4 mg Intravenous Push Q6H PRN docusate sodium (COLACE) capsule 100 mg Oral 2x Daily 100 mg at 07/16/22 0811 bisacodyl (DULCOLAX) 5 MG enteric coated tablet 10 mg Oral Daily PRN oxymetazoline (AFRIN) 0.05 % nasal solution 2 [place] Nasal Q4H PRN sodium chloride (OCEAN) 0.65 % nasal spray 1 [place] Nasal Q1H PRN naloxone (NARCAN) 0.4 MG/ML injection 0.4 mg Intravenous Push PRN Assessment: Isabelle Hewitt is a 47 year old yo female who is HOD 3 for MMA for sleep apnea. She is taking adequate PO, sating appropriately at room air w/o any concerns of airway embarrassment, voiding spontaneously, normotensive. Pain is also controlled. 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 If the pain is severe the prescription medication can be used. However, if only mild discomfort is experienced, try to use a less potent, over the counter medication such as Ibuprofen and/or Tylenol. These can be taken in crushed tablets or in liquid form. Antibiotics: This medicine should be taken at the appropriate interval as described on the bottle. Be sure not to miss any doses and take the medicine until it is gone. Lip ointment: Keep enough ointment, such as Vaseline, on the lips to keep them looking wet. SINUS PRECAUTIONS Due to the upper jaw surgery your sinuses may be filled with blood. It is normal for blood clots tocome out of your nose. However profuse bright red blood may be of concern and please page the resident hollow tile partition erector Do not blow your nose for 2 weeks, you may wipe your nose. Do not sneeze with mouth closed (have lips/mouth open while sneezing). Do not drink through a straw or smoke DRINKING Attempt to drink from a cup as soon as possible. While some fluid may spill when drinking, a cup isstill the most effective way for taking fluids. The use of a sippy cup like those used by toddlers may be helpful for the first few days. If drinking from a cup seems to be impossible, continue using the syringe with the tubing attached.Another alternative is to obtain a squeeze bottle to squirt fluid into your mouth. DIET Your diet should be a pureed or blenderized diet. While this can include soups, and food with baby food consistency, this type of diet does not necessarily mean foods that are of liquid consistency. You can also eat foods such as mashed potatoes, applesauce, oatmeal and pudding. It may be difficult to open your mouth wide enough to get a spoon inside. A small baby sized spoon may be helpful. Some sort of diet supplement such as Boost, Ensure, or similar substitutes may be used once or twice a day to increase calorie intake. ELASTICS Usually some types of elastics (small rubber bands) are used during the time immediately after surgery. These rubber bands are placed around small hooks on the braces or arch wires. The purpose of these small elastics is to help train you to bite into the new jaw position and to limit jaw function.At time there is a plastic splint wired either to the upper or lower jaw. This splint has small indentations for each tooth to bite into. With the elastics in place and your teeth together, you should see that the teeth fit together into the grooves in the splint. Elastics will be replaced at your follow up appointments You will be taught how to remove and place elastics During follow up the elastics will be lightened as tolerated HYGIENE It is extremely important for you to keep all areas inside your mouth clean after surgery. You should brush your teeth and rinse your mouth after eating. Since you will most likely be eating small meals five or six times a day you will need to clean your teeth at each of these intervals. Each time you brush your teeth place a small amount of toothpaste on the toothbrush and brush all areas of the braces on top and bottom. Also brush all around the splint as best as you can. Rinse your mouth thoroughly with warm salt water or with provided chlorhexidine mouth wash. Using chlorhexidine (Peridex) every day may cause discoloration of teeth. However, this can be removed by your dentist through a routine cleaning. To avoid discoloration, use mouthwash at most 4-5 days per week. PHYSICAL ACTIVITY Following surgery you will find that your energy level is much lower. This will take some time to return to normal Physical exercise such as walking or running can begin 2 or 3 weeks after surgery When you attempt to return to normal physical activity start slowly and work up to your normal level. HEALING You jaw bones have small bone screws and plates which are used to hold the bones together during the healing period. Like any broken bone it usually takes ~6 weeks until the bones heal QUESTIONS/CONCERNS Call heating element builder Office [phone] documented in this [id number] History of Present illness Narrative* Wilfredo Vang DMD - 07/17/2022 8:58 AM EST Images from the original note were not included. [facility] PROGRESS NOTE Isabelle Hewitt is a 47 year old yo female with PMH of DIONNE who is HOD3 s/p MMA for sleep Apnea. She rates pain as 2/10. Endorses taking adequate PO. Patient seen resting in bed. Patient doing well, no complaints. Physical Exam: Vitals: BP 109/80 (BP Location: right arm) Pulse 54 Temp 98.3 F (36.8 C) (Oral) Resp 18 Ht 1.575 m (5' 2 ) Wt 90 kg (198 lb 6.6 oz) LMP (LMP Unknown) SpO2 96% BMI 36.29 kg/m Vital sign ranges over the past 24 hours (retrieved 07/17/2022 at 8:58 AM): Tmax (24 hours): 98.3 F (36.8 C) Pulse Av.7 Min: 54 Max: 80 Systolic (24hrs), Av , Min:95 , Max:132 Diastolic (24hrs), Av, Min:68, Max:93 MAP (mmHg) Av.6 mmHg Min: 82 mmHg Max: 100 mmHg Resp Av.3 Min: 12 Max: 18 SpO2 Av % Min: 92 % Max: 100 % Intake/Output Summary (Last 24 hours) at 07/17/2022 0858 Last data filed at 07/17/2022 0659 Gross per 24 hour Intake 2623.75 ml Output 2000 ml Net 623.75 ml General: Resting comfortably in bed Neuro: CN VII, V intact b/l Pulm: Breathing comfortably on RA Cardiac: Limbs WWP HEENT: EOMI, PERRLA, No ear abnormalities, nares patent w/o discharge or obstruction. SARAH 40mm, Intraoral incisions are hemostatic w/no dehiscence, < 2 sec capillary refill. Post-op edema is as expected and mild for post-op day 3. Extremities: VAZQUEZ Psych: Normal mood and affect Labs: Basic Metabolic Panel Na K Cl CO2 Gap Glu BUN Cr Ca Mg PO4 07/17/22221 1.8 07/17/22221 144 3.7 105 30 13 85 10 0.84 7.9 07/17/22221 2.4 CBC/PT/INR WBC RBC Hgb Hct MCV RDW Plt PT aPTT INR 07/17/22221 8.7 3.33 10.8 32.8 99 13.7 214 WBC/Diff None MEDS: Current Facility-Administered Medications Medication Dose Route Frequency Last Rate Last Admin dextrose 5 % and NaCl 0.45 % iv infusion Intravenous Continuous 75 mL/hr at 07/16/22 1000 New Bag at 07/16/22 1000 enoxaparin (LOVENOX) 40 MG/0.4ML injection 40 mg 40 mg Subcutaneous Daily 40 mg at 07/16/22 0811 acetaminophen (TYLENOL) 650 MG/20.3ML oral solution SF 650 mg Oral Every 4 hours 650 mg at 206 OLANZapine (ZyPREXA ZYDIS) disintegrating tablet 10 mg Oral At Bedtime 10 mg at 07/16/22 2044 oxyCODONE (ROXICODONE) 5 mg/5 mL oral solution 5 mg Oral Q4H PRN 5 mg at 07/17/22 0409 oxyCODONE (ROXICODONE) 5 mg/5 mL oral solution 10 mg Oral Q4H PRN insulin lispro (HumaLOG) 100 UNIT/ML injection 2-9 Units Subcutaneous 3x Daily AC 2 Units at 07/16/22 1226 ampicillin-sulbactam (Unasyn) 3000 mg in NS 100 mL ivpb 3,000 mg Intravenous Q6H Antibiotic 200 mL/hr at 07/17/22 0406 3,000 mg at 07/17/22 0406 atorvastatin (LIPITOR) tablet 20 mg Oral Daily 20 mg at 07/16/22 0811 clonazePAM (KlonoPIN) tablet 1 mg Oral Q12H PRN 1 mg at 07/16/22 1840 levothyroxine (SYNTHROID) tablet 50 mcg Oral Before Breakfast 50 mcg at 07/17/22 0409 metformin (GLUCOPHAGE) tablet 500 mg Oral Daily 500 mg at 07/16/22 0812 oxybutynin (DITROPAN) 5 MG tablet 5 mg Oral 3x Daily 5 mg at 07/16/22 1358 venlafaxine (EFFEXOR XR) 24 hour capsule 75 mg Oral Daily 75 mg at 07/16/22 0811 chlorhexidine (PERIDEX) 0.12 % oral solution 15 mL Swish & Spit 2x Daily 15 mL at 07/16/222042 famotidine (PEPCID) tablet 20 mg Oral 2x Daily 20 mg at 07/16/222043 ibuprofen (MOTRIN) tablet 600 mg Oral Q6H PRN ondansetron (ZOFRAN) 4 MG/2ML injection 4 mg Intravenous Push Q6H PRN docusate sodium (COLACE) capsule 100 mg Oral 2x Daily 100 mg at 07/16/22 0811 bisacodyl (DULCOLAX) 5 MG enteric coated tablet 10 mg Oral Daily PRN oxymetazoline (AFRIN) 0.05 % nasal solution 2 [place] Nasal Q4H PRN sodium chloride (OCEAN) 0.65 % nasal spray 1 [place] Nasal Q1H PRN naloxone (NARCAN) 0.4 MG/ML injection 0.4 mg Intravenous Push PRN Assessment: Isabelle Hewitt is a 47 year old yo female who is HOD 3 for MMA for sleep apnea. She is taking adequate PO, sating appropriately at room air w/o any concerns of airway embarrassment, voiding spontaneously, normotensive. Pain is also controlled. Given these findings, patient is ok to be discharged to follow up with [facility] clinic. * Lola Wyatt RN - 07/16/2022 11:07 PM EST Patient refused: Ditropan, and Hs Fingerstick. * Clifford Cruz MD - 07/16/2022 10:20 AM EST Images from the original note were not included. GENERAL INFORMATION SURGICAL ICU - STAFF NOTE Patient seen and examined on 07/16/2022 Patient Name: Isabelle Hewitt Admission Date: 07/14/2022 INTERVAL HISTORY/EVENTS Background: Ms Hewitt is a 47 year old woman with a history of hypothyroidism, HTN, HLD, bipolar disorder, DIONNE(recent pharyngoplasty 03/12) admitted following maxillo- mandibular advancement 07/14/22. Hospital Course: 07/14/2022: She was extubated in PACU and transferred to surgical stepdown 07/14/22 for airway watch. Respiratory status has been good with NRB mask. 24 Hour Events: Tolerating liquids although mouth is painful. Tolerating her facial pain. No dyspnea. Seen by OMFS,feel pt is ok for floor. PHYSICAL EXAM Vital Signs: Vital sign ranges over the past 24 hours (retrieved 07/16/2022 at 10:21 AM): Tmax (24 hours): 97.7 F (36.5 C) Pulse Av.6 Min: 59 Max: 73 Systolic (24hrs), Av , Min:82 , Max:101 Diastolic (24hrs), Av, Min:48, Max:75 MAP (mmHg) Av.9 mmHg Min: 59 mmHg Max: 81 mmHg Resp Av.5 Min: 9 Max: 21 SpO2 Av.5 % Min: 88 % Max: 99 % 24 Hour Input/Output In: 1262.5 (14 mL/kg) [P.O.:750; I.V.:512.5 (0.2 mL/kg/hr)] Out: 1375 (15.3 mL/kg) [Urine:1375 (0.6 mL/kg/hr)] Net: -112.5 Weight: 90 kg Current Medications: Current Facility-Administered Medications: potassium phosphate 15 mmol injection in D5W, 15 mmol, Intravenous, One Time Dose, Sue, Oliver, DMD dextrose 5 % and NaCl 0.45 % iv infusion, , Intravenous, Continuous, Oliver Rogers DMD, Last Rate: 75 mL/hr at 07/16/22 1000, New Bag at 07/16/22 1000 enoxaparin (LOVENOX) 40 MG/0.4ML injection 40 mg, 40 mg, Subcutaneous, Daily, Edita Meyer MD, 40 mg at 07/16/22 0811 acetaminophen (TYLENOL) 650 MG/20.3ML oral solution SF, 650 mg, Oral, Every 4 hours, Edita Meyer MD, 650 mg at 07/16/22 0811 OLANZapine (ZyPREXA ZYDIS) disintegrating tablet, 10 mg, Oral, At Bedtime, Edita Meyer MD, 10 mg at 07/15/22 2124 oxyCODONE (ROXICODONE) 5 mg/5 mL oral solution, 5 mg, Oral, Q4H PRN, Edita Meyer MD oxyCODONE (ROXICODONE) 5 mg/5 mL oral solution, 10 mg, Oral, Q4H PRN, Edita Meyer MD insulin lispro (HumaLOG) 100 UNIT/ML injection, 2-9 Units, Subcutaneous, 3x Daily AC, Edita Meyer MD, 2 Units at 07/15/22 1704 ampicillin-sulbactam (Unasyn) 3000 mg in NS 100 mL ivpb, 3,000 mg, Intravenous, Q6H Antibiotic, Margot Ovalles DDS, Last Rate: 200 mL/hr at 07/16/22 0959, 3,000 mg at 07/16/22 0959 atorvastatin (LIPITOR) tablet, 20 mg, Oral, Daily, Oliver Rogers DMD, 20 mg at 07/16/22 0811 clonazePAM (KlonoPIN) tablet, 1 mg, Oral, Q12H PRN, Oliver Rogers DMD levothyroxine (SYNTHROID) tablet, 50 mcg, Oral, Before Breakfast, Oliver Rogers DMD, 50 mcg at 07/16/22 0655 metformin (GLUCOPHAGE) tablet, 500 mg, Oral, Daily, Oliver Rogers DMD, 500 mg at 07/16/22 0812 oxybutynin (DITROPAN) 5 MG tablet, 5 mg, Oral, 3x Daily, Oliver Rogers, DMD, 5 mg at 07/16/22 0655 venlafaxine (EFFEXOR XR) 24 hour capsule, 75 mg, Oral, Daily, Sue, Oliver, DMD, 75 mg at 07/16/22 0811 chlorhexidine (PERIDEX) 0.12 % oral solution, 15 mL, Swish & Spit, 2x Daily, Sue, Oliver, DMD, 15 mL at 07/16/22 0811 famotidine (PEPCID) tablet, 20 mg, Oral, 2x Daily, Sue, Oliver, DMD, 20 mg at 07/16/22 0811 ibuprofen (MOTRIN) tablet, 600 mg, Oral, Q6H PRN, Oliver Rogers, DMD ondansetron (ZOFRAN) 4 MG/2ML injection, 4 mg, Intravenous Push, Q6H PRN, Oliver Rogers, DMD docusate sodium (COLACE) capsule, 100 mg, Oral, 2x Daily, Sue, Oliver, DMD, 100 mg at 07/16/22 0811 bisacodyl (DULCOLAX) 5 MG enteric coated tablet, 10 mg, Oral, Daily PRN, Oliver Rogers, DMD oxymetazoline (AFRIN) 0.05 % nasal solution, 2 [place], Nasal, Q4H PRN, Oliver Rogers, DMD sodium chloride (OCEAN) 0.65 % nasal spray, 1 [place], Nasal, Q1H PRN, Oliver Rogers, DMD naloxone (NARCAN) 0.4 MG/ML injection, 0.4 mg, Intravenous Push, PRN, Ki Atwood MD Physical Exam: Constitutional: Pleasant adult woman in no distress. Postoperative facial edema. Cardiovascular: Regular rate and rhythm. Normal heart sounds. Pulmonary: Clear to auscultation bilaterally. No wheezing, rhonchi or rales. Abdominal: Soft. Non-distended. Non-tender. Musculoskeletal: No edema. Neurological: No focal motor deficits. Alert and oriented. LABORATORY RESULTS (LAST 24 HOURS) CBC/PT/INR WBC RBC Hgb Hct MCV RDW Plt PT aPTT INR 07/16/22400 16.3 3.33 10.9 32.8 98 13.5 217 07/15/22 0044 18.2 3.55 11.5 34.4 97 13.6 267 07/14/22 0844 12.2 37.6 Basic Metabolic Panel Na K Cl CO2 Gap Glu BUN Cr Ca Mg PO4 07/16/221 2.0 07/16/22 040 144 4.0 103 31 14 96 16 0.79 8.0 07/16/22400 2.1 07/15/22 0044 141 4.3 102 28 15 147 16 0.91 8.0 07/14/22 0844 142 3.7 Arterial Blood Gases None IMAGING RESULTS (PERSONALLY REVIEWED) No relevant imaging ASSESSMENT & PLAN Diagnosis s/p maxillo-mandibular advancement 07/14/22: Airway appears secure and respiratory status stable PMHx DIONNE, HTN, HLD, DM2, Bipolar d/o Incidental Findings: n/a Plan: Neurological: pain is controlled - Continue scheduled Tylenol, switch to liquid - Continue PRN oxycodone 5-10mg liquid - Zyprexa,ODT - Klonopin Cardiovascular: - Restarting home atenolol, Lipitor - Holding Maxzide Respiratory: airway appears secure - Wean off NRB mask as she has good SPO2 when not wearing it correctly - Continue dexamethasone for facial edema per OMFS GI/Diet: - Full liquid diet per OMFS. She has not been taking much PO as she is complaining of facial numbness Renal/Electrolytes: - Discontinue LR as she tolerates more liquids - Continue daily labs ID: - completed 24hr Unasyn prophylaxis - no need for antibiotics Heme: - mild blood loss anemia, no need to transfuse - Daily CBCs Endocrine: - Fingersticks qAC/at bedtime, ISS - Continue home levothyroxine - Steroids as above for swelling MSK: - Progressive mobility. Has been ambulating independently. - PT/OT Tubes, Lines, and Drains: - PIV x 1 - Ok to discontinue Mart catheter and have void trial Prophylaxis: - Lovenox 40 subcutaneous daily for DVT prophylaxis - No need for GI prophylaxis Dispo: - Transfer to floor today Follow Up: - OMFS (Dr Rodrigues) Clifford Cruz MD PGY-5 Radiology * Zehra Stearns MD - 07/15/2022 7:38 AM EST Images from the original note were not included. GENERAL INFORMATION SURGICAL ICU - STAFF NOTE Patient seen and examined on 07/15/2022 Patient Name: Isabelle Hewitt Admission Date: 07/14/2022 INTERVAL HISTORY/EVENTS Background: Ms Hewitt is a 47 year old woman with a history of hypothyroidism, HTN, HLD, bipolar disorder, DIONNE(recent pharyngoplasty 03/12) admitted following maxillo- mandibular advancement 07/14/22. Hospital Course: 07/14/2022: She was extubated in PACU and transferred to surgical stepdown 07/14/22 for airway watch. Respiratory status has been good with NRB mask. 24 Hour Events: She is tolerating small sips of water but not taking her oral pills when I saw her. Complaining of facial numbness and swelling. Otherwise not pain. No shortness of breath. Not consistently using NRB mask. PHYSICAL EXAM Vital Signs: Vital sign ranges over the past 24 hours (retrieved 07/15/2022 at 7:38 AM): Tmax (24 hours): 99.2 F (37.3 C) Pulse Av.6 Min: 75 Max: 97 Systolic (24hrs), Av , Min:87 , Max:121 Diastolic (24hrs), Av, Min:62, Max:93 MAP (mmHg) Av.4 mmHg Min: 74 mmHg Max: 101 mmHg Resp Av Min: 7 Max: 23 SpO2 Av.7 % Min: 90 % Max: 99 % 24 Hour Input/Output In: 3413.9 (37.9 mL/kg) [P.O.:120; I.V.:3293.9 (1.5 mL/kg/hr)] Out: 1535 (17.1 mL/kg) [Urine:1185 (0.5 mL/kg/hr)] Net: 1878.9 Weight: 90 kg Current Medications: Current Facility-Administered Medications: atenolol (TENORMIN) tablet, 100 mg, Oral, Daily, Oliver Rogers DMD atorvastatin (LIPITOR) tablet, 20 mg, Oral, Daily, Oliver Rogers DMD clonazePAM (KlonoPIN) tablet, 1 mg, Oral, Q12H PRN, Oliver Rogers DMD levothyroxine (SYNTHROID) tablet, 50 mcg, Oral, Before Breakfast, Oliver Rogers DMD, 50 mcg at 07/15/22 0625 metformin (GLUCOPHAGE) tablet, 500 mg, Oral, Daily, Oliver Rogers DMD OLANZapine (ZyPREXA) tablet, 10 mg, Oral, At Bedtime, Oliver Rogers DMD, 10 mg at 07/14/222216 oxybutynin (DITROPAN) 5 MG tablet, 5 mg, Oral, 3x Daily, Oliver Rogers DMD, 5 mg at 07/15/22 0625 venlafaxine (EFFEXOR XR) 24 hour capsule, 75 mg, Oral, Daily, Oliver Rogers DMD HYDROmorphone (DILAUDID) 1 mg/mL injection, 0.5 mg, Intravenous Push, Q3H PRN, Clifford Cruz MD LORazepam (ATIVAN) 2 MG/ML injection, 0.5 mg, Intravenous Push, Q6H PRN, Clifford Cruz MD acetaminophen (TYLENOL) tablet, 650 mg, Oral, Every 4 hours, Oliver Rogers DMD, 650 mg at 07/15/22 0346 chlorhexidine (PERIDEX) 0.12 % oral solution, 15 mL, Swish & Spit, 2x Daily, Oliver Rogers DMD, 15 mL at 07/14/222049 famotidine (PEPCID) tablet, 20 mg, Oral, 2x Daily, Oliver Rogers, CAHU, 20 mg at 07/14/222113 ibuprofen (MOTRIN) tablet, 600 mg, Oral, Q6H PRN, Oliver Rogers DMD oxyCODONE immediate release tablet, 5 mg, Oral, Q4H PRN, Oliver Rogers DMD oxyCODONE immediate release tablet, 10 mg, Oral, Q4H PRN, Oliver Rogers DMD, 10 mg at 07/15/22 0346 dexamethasone (DECADRON) 4 MG/ML injection, 8 mg, Intravenous Push, Every 8 hours, Oliver Rogers DMD, 8 mg at 07/15/22 0109 ondansetron (ZOFRAN) 4 MG/2ML injection, 4 mg, Intravenous Push, Q6H PRN, Oliver Rogers DMD docusate sodium (COLACE) capsule, 100 mg, Oral, 2x Daily, Oliver Rogers DMD bisacodyl (DULCOLAX) 5 MG enteric coated tablet, 10 mg, Oral, Daily PRN, Oliver Rogers DMD oxymetazoline (AFRIN) 0.05 % nasal solution, 2 [place], Nasal, Q4H PRN, Oliver Rogers DMD sodium chloride (OCEAN) 0.65 % nasal spray, 1 [place], Nasal, Q1H PRN, Oliver Rogers DMD enoxaparin (LOVENOX) 40 MG/0.4ML injection 40 mg, 40 mg, Subcutaneous, Daily, SueOliver, DMD, 40 mg at 07/14/22 1658 naloxone (NARCAN) 0.4 MG/ML injection, 0.4 mg, Intravenous Push, PRN, Ki Atwood MD lactated ringers iv infusion, , Intravenous, Continuous, Saleem Mi, CHAU, Last Rate: 75 mL/hr at109/14/21 0700, Rate Verify at 07/15/22 0700 Physical Exam: Constitutional: Pleasant adult woman in no distress. Postoperative facial edema. Cardiovascular: Regular rate and rhythm. Normal heart sounds. Pulmonary: Clear to auscultation bilaterally. No wheezing, rhonchi or rales. Abdominal: Soft. Non-distended. Non-tender. Musculoskeletal: No edema. Neurological: No focal motor deficits. Alert and oriented. Noting facial numbness LABORATORY RESULTS (LAST 24 HOURS) CBC/PT/INR WBC RBC Hgb Hct MCV RDW Plt PT aPTT INR 07/15/22 0044 18.2 3.55 11.5 34.4 97 13.6 267 07/14/22 0844 12.2 37.6 Basic Metabolic Panel Na K Cl CO2 Gap Glu BUN Cr Ca Mg PO4 07/15/224 141 4.3 102 28 15 147 16 0.91 8.0 07/14/22 0844 142 3.7 Arterial Blood Gases T Site Mode LPM FIO2 pH pCO2 pO2 Sat Base Ex HCO3- A-a 07/14/22 0844 24 07/14/22 0844 7.429 37.0 118 98.8 0.5 24 IMAGING RESULTS (PERSONALLY REVIEWED) No relevant imaging ASSESSMENT & PLAN Diagnosis s/p maxillo-mandibular advancement 07/14/22: Airway appears secure and respiratory status stable PMHx DIONNE, HTN, HLD, DM2, Bipolar d/o Incidental Findings: n/a Plan: Neurological: pain is controlled - Continue scheduled Tylenol, switch to liquid - Continue PRN oxycodone 5-10mg, but switch to liquid formulation - Discontinue PRN Dilaudid as she is tolerating oral medications and has good pain control with oxycodone - Restarting home Zyprexa, will use the oral disintegrating tablet - Restart home Klonopin and d/c IV Ativan PRN Cardiovascular: - Restarting home atenolol, Lipitor - Holding Maxzide Respiratory: airway appears secure - Wean off NRB mask as she has good SPO2 when not wearing it correctly - Continue dexamethasone for facial edema per OMFS GI/Diet: - Full liquid diet per OMFS. She has not been taking much PO as she is complaining of facial numbness Renal/Electrolytes: - Discontinue LR as she tolerates more liquids - Continue daily labs ID: - completed 24hr Unasyn prophylaxis - no need for antibiotics Heme: - mild blood loss anemia, no need to transfuse - Daily CBCs Endocrine: - Fingersticks qAC/at bedtime, ISS - Continue home levothyroxine - Steroids as above for swelling MSK: - Progressive mobility. Has been ambulating independently. - PT/OT Tubes, Lines, and Drains: - PIV x 1 - Ok to discontinue Mart catheter and have void trial Prophylaxis: - Lovenox 40 subcutaneous daily for DVT prophylaxis - No need for GI prophylaxis Dispo: - Stepdown status currently. Will coordinate timing of transfer to floor with FS given concern for airway postoperatively. Her swelling is improving. Follow Up: - [facility]FS (Dr Rodrigues) Clifford Cruz MD PGY-5 Radiology Attending Attestation I saw and evaluated the patient with the resident. I personally obtained ulloa and critical portions of the history and physical exam. I reviewed the resident's documentation and discussed the patient with the resident and team. I agree with the medical decision making as documented in this note, which are reflective of the plans we discussed. Zehra Stearns MD documented in this [id number] Note* Care Plan Note - Kevin, Penny, RN - 07/17/2022 7:43 AM EST Problem: Routine Care: Goal: Patient care will be managed and maintained throughout hospital stay per unit specific routine care procedure Outcome: Progressing Purposeful rounding and assessment done per protocol. Problem: Acute Pain: Goal: Ability to identify pain intensity on a pain scale and rate it consistently will be achieved and maintained Outcome: Progressing Scheduled and PRN medication provided per orders Problem: Alteration in Respiratory Status: Goal: Achieve Optimal Respiratory Status with Minimal Ventilatory/Oxygen Support Outcome: Progressing Problem: Impaired Skin Integrity: Goal: Acheive wound healing without signs and symptoms of infection Outcome: Progressing Problem: Risk for Infection: Goal: Risk for infection will be reduced Outcome: Progressing Problem: Altered Nutrition: Goal: Achieve developmentally appropriate nutritional intake as clinically indicated Outcome: Progressing Full liquid diet Problem: VTE Prophylaxis: Goal: Will be free of DVT Outcome: Progressing Problem: Safety: Goal: Patient will remain free of falls during hospital stay Outcome: Progressing Call light within reach. Problem: Discharge Planning: Goal: Discharge needs of the adult patient will be met Outcome: Progressing [id number] Note* Care Plan Note - Lauren Crawford RN - 07/15/2022 12:34 PM EST Problem: Routine Care: Goal: Patient care will be managed and maintained throughout hospital stay per unit specific routine care procedure Outcome: Progressing Problem: Acute Pain: Goal: Ability to identify pain intensity on a pain scale and rate it consistently will be achieved and maintained Outcome: Progressing Problem: Alteration in Respiratory Status: Goal: Achieve Optimal Respiratory Status with Minimal Ventilatory/Oxygen Support Outcome: Progressing Problem: Impaired Skin Integrity: Goal: Acheive wound healing without signs and symptoms of infection Outcome: Progressing Problem: Risk for Infection: Goal: Risk for infection will be reduced Outcome: Progressing Problem: Altered Nutrition: Goal: Achieve developmentally appropriate nutritional intake as clinically indicated Outcome: Progressing Problem: VTE Prophylaxis: Goal: Will be free of DVT Outcome: Progressing Problem: Safety: Goal: Patient will remain free of falls during hospital stay Outcome: Progressing Problem: Discharge Planning: Goal: Discharge needs of the adult patient will be met Outcome: Progressing [id number] Note* Care Plan Note - Alon Cotton RN - 07/15/2022 4:46 AM EST Problem: Discharge Planning: Goal: Discharge needs of the adult patient will be met Outcome: Not Progressing Note: Patient to remain in SICU Problem: Routine Care: Goal: Patient care will be managed and maintained throughout hospital stay per unit specific routine care procedure Outcome: Progressing Note: Per SICU protocol. Problem: Acute Pain: Goal: Ability to identify pain intensity on a pain scale and rate it consistently will be achieved and maintained Outcome: Progressing Note: Patient reports pain to nurse using numeric scale Problem: Alteration in Respiratory Status: Goal: Achieve Optimal Respiratory Status with Minimal Ventilatory/Oxygen Support Outcome: Progressing Problem: Impaired Skin Integrity: Goal: Acheive wound healing without signs and symptoms of infection Outcome: Progressing Note: Labs monitored daily, temperature monitored Q4 Problem: Risk for Infection: Goal: Risk for infection will be reduced Outcome: Progressing Note: Patient vitals monitored q1hr. Patient labs monitored as per MD order. Antibiotics administered per MD order. Problem: Altered Nutrition: Goal: Achieve developmentally appropriate nutritional intake as clinically indicated Outcome: Progressing Note: Patient diet progressed to clear diet Problem: VTE Prophylaxis: Goal: Will be free of DVT Outcome: Progressing Note: SCDs maintained. Lovenox or Heparin administered per MD order. Problem: Safety: Goal: Patient will remain free of falls during hospital stay Outcome: Progressing Note: Call light within reach. Bed in lowest position and wheels locked. CR monitoring. Patient free of falls/injuries during shift. [id number] History and physical note* Zehra Stearns MD - 07/14/2022 3:58 PM EST Images from the original note were not included. Surgical ICU H&P Isabelle Hewitt [id number] HPI: Ms Hewitt is a 47 year old woman with a history of DIONNE (s/p UPPP 03/12), HTN, hypothyroidism who underwent maxillo-mandibular advancement with Dr Rodrigues 07/14/22. She was extubated in PACU and transferred to surgical stepdown unit for airway monitoring. She is alert and oriented. Currently complains of postoperative facial pain only. Past Medical History: Diagnosis Date DIONNE (obstructive sleep apnea) Past Surgical History: Procedure Laterality Date BRONCHOSCOPY, FLEXIBLE, DRUG INDUCED SLEEP ENDOSCOPY (DISE) N/A 06/03/2022 Procedure: BRONCHOSCOPY, FLEXIBLE, DRUG INDUCED SLEEP ENDOSCOPY (DISE); Surgeon: MarkS. Moreno MD; Location: PACU Procedure Rooms; Service: Otolaryngology CHOLECYSTECTOMY UVULOPALATOPHARYNGOPLASTY N/A 02/25/2022 Procedure: UVULOPALATOPHARYNGOPLASTY; Surgeon: Yi Moreno MD; Location: PERIOPERATIVE SERVICES; Service: Otolaryngology Social History Tobacco Use Smoking status: Former Packs/day: 1.00 Years: 5.00 Pack years: 5.00 Types: Cigarettes Quit date: 01/2021 Years since quittin.4 Smokeless tobacco: Never Substance Use Topics Alcohol use: Not Currently Drug use: Never No family history on file. No Known Allergies No current facility-administered medications on file prior to encounter. Current Outpatient Medications on File Prior to Encounter Medication Sig Dispense Refill acetaminophen (TYLENOL) 325 mg tablet Take 2 Tablets by mouth every 4 hours as needed. 30 Tablet 0 acetaminophen (Tylenol 8 Hour) 650 MG CR tablet Take 1 Tablet by mouth every 8 hours as needed for Pain or Fever. 30 Tablet 0 senna (SENOKOT) 8.6 MG tablet Take 1 Tablet by mouth daily as needed for Constipation. (Patient nottaking: No sig reported) 30 Tablet 0 sucralfate (CARAFATE) 1 GM tablet Take 1 Tablet by mouth 4 times daily. (Patient not taking: No sigreported) 40 Tablet 3 atorvastatin (LIPITOR) 20 mg tablet Take 20 mg by mouth. oxybutynin (DITROPAN) 5 MG tablet Take 5 mg by mouth. (Patient not taking: No sig reported) OLANZapine (ZyPREXA) 5 MG tablet Take 5 mg by mouth at bedtime. OLANZapine (ZyPREXA) 5 MG tablet Take 10 mg by mouth. hs oxybutynin (DITROPAN) 5 MG tablet Take 5 mg by mouth 3 times daily as needed. levothyroxine (SYNTHROID) 25 MCG tablet TAKE 1 TABLET BY MOUTH EVERY DAY IN THE AM ON AN EMPTY STOMACH. DO NOT EAT OR DRINK FOR 2 HOURS AFTER TAKING norethindrone (MICRONOR) 0.35 MG tablet Take by mouth. clonazePAM (KlonoPIN) 1 MG tablet Take 1 mg by mouth every 12 hours as needed. atenolol (TENORMIN) 100 mg tablet Take 100 mg by mouth daily. venlafaxine (EFFEXOR XR) 75 MG ER capsule Take 75 mg by mouth daily. venlafaxine (EFFEXOR XR) 150 MG ER capsule Take 150 mg by mouth daily. triamterene-hydrochlorothiazide (MAXZIDE) 37.5-25 MG tablet Take 1 Tablet by mouth every other day.HS tamsulosin (FLOMAX) 0.4 MG capsule Take 1 Capsule by mouth daily. (Patient not taking: No sig reported) ROS: 12 pt ROS otherwise negative unless stated above in HPI PHYSICAL EXAM: Tmax (24 hours): 98.8 F (37.1 C) Pulse Av.1 Min: 78 Max: 88 Systolic (24hrs), Av , Min:87 , Max:115 Diastolic (24hrs), Av, Min:62, Max:82 SpO2 Av.1 % Min: 91 % Max: 99 % Resp Av.3 Min: 7 Max: 22 In: 2198.9 (24.4 mL/kg) [I.V.:2198.9 (1 mL/kg/hr)] Out: 600 (6.7 mL/kg) [Urine:250 (0.1 mL/kg/hr)] Net: 1598.9 Weight: 90 kg Vitals: 07/14/22 1530 BP: 107/82 Pulse: 79 Resp: 15 Temp: SpO2: 96% Gen: In no acute distress HEENT: Packing in oral cavity. Buccal edema. Eyes: Extraocular motions intact CV: Regular rate and rhythm; Pulm: Clear to auscultation bilaterally; Abd: Soft, non-distended, and non-tender; non-peritonitic; : N/A Ext: Skin warm and well perfused, no edema Neuro: No focal neurologic deficits, alert and oriented x3 Labs: CBC (last 3 years, up to 5 values) WBC RBC Hgb Hct MCV RDW Plt 07/14/22 0844 12.2 37.6 07/08/22 1512 7.2 4.32 14.3 42.2 98 13.4 274 Basic Metabolic Panel Na K Cl CO2 Gap Glu BUN Cr Ca 07/14/22 0844 142 3.7 LFT's (last 3 years, up to 5 values) None Imaging: No relevant imaging. ASSESSMENT: Ms Hewitt is a 47 year old woman with a history of HTN, HLD, DIONNE s/p UPPP 03/12 admitted for airway monitoring following maxillo/mandibular advancement 07/14/22. PLAN: Neurologic -acetaminophen 650mg q4hr -oxycodone 5-10mg q6hr PO -hydromorphone 0.5 mg q3hr PRN -restart home Effexor XR, Zyprexa -lorazepam 0.5 mg q6hr PRN Cardiovascular -restart home antihypertensives as tolerated: Maxzide -restart home Lipitor Respiratory -continue NRB mask Infection -Ampicillin/Sulbactam prophylaxis tonight per OMFS GI/Feeding -full liquid diet -maintain Mart overnight Endocrine/Renal/Electrolytes -continue home dose LT4 -maintenance IVF LR @75 ml/hr Disposition -potential floor transfer once edema reaches maximum in 24-48hr? -FULL CODE Patient was seen and discussed with attending surgeon Dr Stearns --- Clifford Cruz MD PGY-5 Radiology SICU Pager [phone] [facility] Surgery Pager -[phone], Weekdays 6a-6p [place] Pager -[phone], Weekdays 6p-6a, weekends Attending Attestation I saw and evaluated the patient with the resident. I personally obtained ulloa and critical portions of the history and physical exam. I reviewed the resident's documentation and discussed the patient with the resident and team. I agree with the medical decision making as documented in this note, which are reflective of the plans we discussed. Admitted as stepdown for airway monitoring. Zehra Stearns MD [id number] History and physical note* Zehra Stearns MD - 07/14/2022 3:58 PM EST Images from the original note were not included. Surgical ICU H&P Isabelle Hewitt [id number] HPI: Ms Hewitt is a 47 year old woman with a history of DIONNE (s/p UPPP 03/12), HTN, hypothyroidism who underwent maxillo-mandibular advancement with Dr Rodrigues 07/14/22. She was extubated in PACU and transferred to surgical stepdown unit for airway monitoring. She is alert and oriented. Currently complains of postoperative facial pain only. Past Medical History: Diagnosis Date DIONNE (obstructive sleep apnea) Past Surgical History: Procedure Laterality Date BRONCHOSCOPY, FLEXIBLE, DRUG INDUCED SLEEP ENDOSCOPY (DISE) N/A 06/03/2022 Procedure: BRONCHOSCOPY, FLEXIBLE, DRUG INDUCED SLEEP ENDOSCOPY (DISE); Surgeon: MarkS. Moreno MD; Location: PACU Procedure Rooms; Service: Otolaryngology CHOLECYSTECTOMY UVULOPALATOPHARYNGOPLASTY N/A 02/25/2022 Procedure: UVULOPALATOPHARYNGOPLASTY; Surgeon: Yi Moreno MD; Location: PERIOPERATIVE SERVICES; Service: Otolaryngology Social History Tobacco Use Smoking status: Former Packs/day: 1.00 Years: 5.00 Pack years: 5.00 Types: Cigarettes Quit date: 01/2021 Years since quittin.4 Smokeless tobacco: Never Substance Use Topics Alcohol use: Not Currently Drug use: Never No family history on file. No Known Allergies No current facility-administered medications on file prior to encounter. Current Outpatient Medications on File Prior to Encounter Medication Sig Dispense Refill acetaminophen (TYLENOL) 325 mg tablet Take 2 Tablets by mouth every 4 hours as needed. 30 Tablet 0 acetaminophen (Tylenol 8 Hour) 650 MG CR tablet Take 1 Tablet by mouth every 8 hours as needed for Pain or Fever. 30 Tablet 0 senna (SENOKOT) 8.6 MG tablet Take 1 Tablet by mouth daily as needed for Constipation. (Patient nottaking: No sig reported) 30 Tablet 0 sucralfate (CARAFATE) 1 GM tablet Take 1 Tablet by mouth 4 times daily. (Patient not taking: No sigreported) 40 Tablet 3 atorvastatin (LIPITOR) 20 mg tablet Take 20 mg by mouth. oxybutynin (DITROPAN) 5 MG tablet Take 5 mg by mouth. (Patient not taking: No sig reported) OLANZapine (ZyPREXA) 5 MG tablet Take 5 mg by mouth at bedtime. OLANZapine (ZyPREXA) 5 MG tablet Take 10 mg by mouth. hs oxybutynin (DITROPAN) 5 MG tablet Take 5 mg by mouth 3 times daily as needed. levothyroxine (SYNTHROID) 25 MCG tablet TAKE 1 TABLET BY MOUTH EVERY DAY IN THE AM ON AN EMPTY STOMACH. DO NOT EAT OR DRINK FOR 2 HOURS AFTER TAKING norethindrone (MICRONOR) 0.35 MG tablet Take by mouth. clonazePAM (KlonoPIN) 1 MG tablet Take 1 mg by mouth every 12 hours as needed. atenolol (TENORMIN) 100 mg tablet Take 100 mg by mouth daily. venlafaxine (EFFEXOR XR) 75 MG ER capsule Take 75 mg by mouth daily. venlafaxine (EFFEXOR XR) 150 MG ER capsule Take 150 mg by mouth daily. triamterene-hydrochlorothiazide (MAXZIDE) 37.5-25 MG tablet Take 1 Tablet by mouth every other day.HS tamsulosin (FLOMAX) 0.4 MG capsule Take 1 Capsule by mouth daily. (Patient not taking: No sig reported) ROS: 12 pt ROS otherwise negative unless stated above in HPI PHYSICAL EXAM: Tmax (24 hours): 98.8 F (37.1 C) Pulse Av.1 Min: 78 Max: 88 Systolic (24hrs), Av , Min:87 , Max:115 Diastolic (24hrs), Av, Min:62, Max:82 SpO2 Av.1 % Min: 91 % Max: 99 % Resp Av.3 Min: 7 Max: 22 In: 2198.9 (24.4 mL/kg) [I.V.:2198.9 (1 mL/kg/hr)] Out: 600 (6.7 mL/kg) [Urine:250 (0.1 mL/kg/hr)] Net: 1598.9 Weight: 90 kg Vitals: 07/14/22 1530 BP: 107/82 Pulse: 79 Resp: 15 Temp: SpO2: 96% Gen: In no acute distress HEENT: Packing in oral cavity. Buccal edema. Eyes: Extraocular motions intact CV: Regular rate and rhythm; Pulm: Clear to auscultation bilaterally; Abd: Soft, non-distended, and non-tender; non-peritonitic; : N/A Ext: Skin warm and well perfused, no edema Neuro: No focal neurologic deficits, alert and oriented x3 Labs: CBC (last 3 years, up to 5 values) WBC RBC Hgb Hct MCV RDW Plt 07/14/22 0844 12.2 37.6 07/08/22 1512 7.2 4.32 14.3 42.2 98 13.4 274 Basic Metabolic Panel Na K Cl CO2 Gap Glu BUN Cr Ca 07/14/22 0844 142 3.7 LFT's (last 3 years, up to 5 values) None Imaging: No relevant imaging. ASSESSMENT: Ms Hewitt is a 47 year old woman with a history of HTN, HLD, DIONNE s/p UPPP 03/12 admitted for airway monitoring following maxillo/mandibular advancement 07/14/22. PLAN: Neurologic -acetaminophen 650mg q4hr -oxycodone 5-10mg q6hr PO -hydromorphone 0.5 mg q3hr PRN -restart home Effexor XR, Zyprexa -lorazepam 0.5 mg q6hr PRN Cardiovascular -restart home antihypertensives as tolerated: Maxzide -restart home Lipitor Respiratory -continue NRB mask Infection -Ampicillin/Sulbactam prophylaxis tonight per OMFS GI/Feeding -full liquid diet -maintain Mart overnight Endocrine/Renal/Electrolytes -continue home dose LT4 -maintenance IVF LR @75 ml/hr Disposition -potential floor transfer once edema reaches maximum in 24-48hr? -FULL CODE Patient was seen and discussed with attending surgeon Dr Stearns --- Clifford Cruz MD PGY-5 Radiology SICU Pager [phone] [facility] Surgery Pager [phone], Weekdays 6a-6p [place] Pager [phone], Weekdays 6p-6a, weekends Attending Attestation I saw and evaluated the patient with the resident. I personally obtained ulloa and critical portions of the history and physical exam. I reviewed the resident's documentation and discussed the patient with the resident and team. I agree with the medical decision making as documented in this note, which are reflective of the plans we discussed. Admitted as stepdown for airway monitoring. Zehra Stearns MD * Saleem Mi DMD - 07/14/2022 7:13 AM EST Surgical Attestation: I have reviewed the patient's History and Physical Examination. I have personally seen and evaluated the patient, repeating ulloa portions. There is no significant interval change. Surgery is still indicated. Yes Consent reviewed and signed by patient/family: Yes Operative site verified: Yes Saleem Mi DDS documented in this [id number] NoteSurgical Attestation: I have reviewed the patient's History and Physical Examination. I have personally seen and evaluated the patient, repeating ulloa portions. There is no significant interval change. Surgery is still indicated. Yes Consent reviewed and signed by patient/family: Yes Operative site verified: Yes [facility] [id number] Note* Brief Operative Note - Rikki Rodrigues DMD, MD - 07/14/2022 8:30 AM EST Brief Operative Note MAIN OR 12 Isabelle Hewitt 47 year old female Surgical Contact Serial Number: [id number] Preoperative Diagnosis: DIONNE (obstructive sleep apnea) [G47.33] Postoperative Diagnosis: * DIONNE (obstructive sleep apnea) [G47.33] Procedures: Surgical CPTs Procedures RECONSTRUCTION MIDFACE, LEFORT I; 1 PIECE, W/O BONE GRAFT RECONSTRUCTION, MANDIBULAR RAMI &/OR BODY, SAGITTAL SPLIT; W/INT RIGID FIXATION No data filed Surgeon(s): Surgeon(s): Rikki Rodrigues DMD, MD Staff: Scrub: Annelise Saeed RN; Babs Wells RN Carton Filling Machine Operator Nurse: Stephanie Brannon RN; Babs Wells RN Canine Enforcement Officer: Margot Ovalles DDS; Saleem Mi DMD Anesthesia: General Anesthesiologist: Ki Atwood MD CAA: Edwina Warren CAA; Delia Morris CAA; Zenia Centeno CAA Specimen(s): * No specimens in log * Estimated Blood Loss: 350cc Lines/Drains: Peripheral IV Access: 07/14/22 0650 18 gauge Anterior;Right Forearm (Active) Temporarily Retained Foreign Object: Yes Location: Inside both cheeks Object: Telfa Dressing Anticipated removal date: 07/14/22 (this evening) Findings: Normal anatomy Complications: None Status at end of surgery: Stable Activity: Ad Beata and HOB elevated Surgical wound class: Yes, wound was clean contaminated. Patient Class: Surgery Admit. Is this a patient scheduled as an outpatient that needs to be admitted as an inpatient? No Dr. Rodrigues was present in the OR for the critical portion of the procedure and procedure sign-out. Signed by Rikki Rodrigues DMD, MD 07/14/2022 12:58 PM [employer] Work Phone: 1(237) 905-109411-23-2022 History and physical note* Saleem Mi DMD - 07/14/2022 7:13 AM EST Surgical Attestation: I have reviewed the patient's History and Physical Examination. I have personally seen and evaluated the patient, repeating ulloa portions. There is no significant interval change. Surgery is still indicated. Yes Consent reviewed and signed by patient/family: Yes Operative site verified: Yes Saleem Mi DDS [employer] Work Phone: [phone] 147-607711-23-2022 Note* Blood Attestation - Ki Atwood MD - 07/14/2022 7:06 AM EST Blood Attestation ATTESTATION OF INFORMED CONSENT FOR BLOOD The transfusion of blood and/or blood components were discussed with the patient and/or legal dermatology sales representative. The risks, benefits and alternatives were reviewed. Questions regarding blood transfusions were answered. The patient /or the patient s legal dermatology sales representative agree with the plan for transfusion of blood and/or blood components. [employer] Work Phone: [phone] 528-722511-23-2022 Note* Anesthesia Attestation - Ki Atwood MD - 07/14/2022 7:06 AM EST Anesthesia Attestation ATTESTATION OF INFORMED CONSENT FOR ANESTHESIA Anesthesia options were discussed with the patient and/or legal dermatology sales representative. The risks, benefits and alternatives were reviewed. Questions regarding anesthesia were answered. Patient and/or legal dermatology sales representative knows such anesthetics and procedures may be performed by Resident physicians, Certified Anesthesiologist Assistants, or Certified Nurse Anesthetists under the supervision of a physician. The patient /or the patient s legal representativeagree with the plan for anesthesia. [id number] Telephone encounter Note* Telephone Encounter - Latoya Manzo RN - 07/09/2022 3:43 PM EST 1541: Contacted pt and informed her to call the ENT office to schedule appt with Dr Moreno s/p jaw surgery in about 3 months due to healing time. Pt verbalized understanding. Latoya Manzo RN [id number] Miscellaneous Notes* Telephone Encounter - Latoya Manzo RN - 07/09/2022 3:43 PM EST 1541: Contacted pt and informed her to call the ENT office to schedule appt with Dr Moreno s/vishal jaw surgery in about 3 months due to healing time. Pt verbalized understanding. Latoya Manzo RN * Telephone Encounter - Nicole Diaz - 07/09/2022 2:[address] Joel, Patient calling stating that she is going forward with the jaw surgery that you recommended next 07/14/22. Patient would like to know what the next step is for after the surgery. PT: [phone] Gus Luz documented in this [id number] Telephone encounter Note* Telephone Encounter - Nicole Diaz - 07/09/2022 2:[address] Joel, Patient calling stating that she is going forward with the jaw surgery that you recommended next 07/14/22. Patient would like to know what the next step is for after the surgery. PT: [phone] Gus Luz [employer] Work Phone: [phone] 877-214811-17-2022 Instructions* Patient Instructions* Gena Holbrook APRN-CNP - 07/08/2022 2:36 PM EST On the morning of your surgery please take only the following medications, with a small sip of water: sucralfate (CARAFATE) 1 GM tablet atorvastatin (LIPITOR) 20 mg tablet oxybutynin (DITROPAN) 5 MG tablet levothyroxine (SYNTHROID) 25 MCG tablet clonazePAM (KlonoPIN) 1 MG tablet atenolol (TENORMIN) 100 mg tablet venlafaxine (EFFEXOR XR) 75 MG ER capsule venlafaxine (EFFEXOR XR) 150 MG ER capsule Do not take any Aspirin after 7 days prior to procedure. Do not take any Ibuprofen, Aleve, Advil, or Motrin or any other NSAIDS after 3 days prior to procedure. May take over the counter Acetaminophen (Tylenol) as needed for pain Please hold all Vitamin E, [place] 3, fish oil and herbal supplements for 1 week prior to surgery documented in this [id number] Note* PSE Appt H&P - Edwina Daniel - 07/08/2022 1:59 PM EST Patient was identified by name and date of . Edwina Kern Bill of rights provided to patient [id number] Miscellaneous Notes* PSE Appt H&P - Edwina Daniel - 07/08/2022 1:59 PM EST Patient was identified by name and date of . Edwina María Bill of rights provided to patient * PSE Appt H&P - Gena Holbrook, FIELD SUPERINTENDENT-GREASER HELPER - 07/07/2022 4:03 PM EST Presurgical Evaluation Isabelle Hewitt, [id number] 47 year old Female 07/08/2022 BP 122/80 Pulse 98 Temp 97.9 F (36.6 C) (Temporal) Resp 14 Ht 1.575 m (5' 2 ) Wt 89.2 kg (196 lb 9.6 oz) LMP (LMP Unknown) SpO2 98% BMI 35.96 kg/m ALLERGIES: No Known Allergies HISTORY OF PRESENT ILLNESS: Isabelle Hewitt is a 47 year old female pt who is seen here today for pre-surgical evaluation for LEFORTE I OSTEOTOMY - Bilateral, OSTEOTOMY, SAGITTAL SPLIT, BILATERAL - Bilateral. She has a h/o DIONNE. Currently denies fever and chills, new cough, SOB or CP. She is scheduled for surgery w/ Dr. Rodrigues on 07/14/2022 RECENT ILLNESS: Serious illness or hospitalization within the last six months. No STOP-BANG Row Name 07/07/22 1608 History of sleep apnea? Yes Does not use CPAP PS12/17/2021 at [facility] RESPIRATORY DATA INTEGRITY: Respiratory data integrity was excellent, with no time lost to artifacts. Respiratory data integrity was 100% for flow quality, 96.6% for oximetry saturation quality and 100% for RIP sensor belt quality. IMPRESSION: 1. Very severe obstructive sleep apnea. 2. Very severe hypoxia associated with sleep apnea. 3. Significant tachycardia during sleep. COMMENTS: The patient was clinically suspected of obstructive sleep apnea and had been previously diagnosed with the disorder. She was interested in exploring Inspire therapy. This home sleep test does confirm that severe sleep apnea is present, but also finds that the apnea/hypopnea index falls within the acceptable range for Inspire therapy. Should she meet other criteria and be interested in referral, she could be evaluated for possible Inspire therapy. The patient did have severe nocturnal hypoxia, and there should be documentation that this is controlled with whatever treatment is selected. RECOMMENDATIONS: 1. The patient should continue current therapy for control of obstructive sleep apnea and hypoxia. 2. The patient could be considered for Inspire therapy if she meets other criteria and is interested in that approach. 3. The patient should ensure adequate total sleep time and regular sleep-wake cycles. The principles of appropriate sleep hygiene should be encouraged. 4. The patient should continue efforts at progressive weight loss. Even moderate weight loss can result in significant improvement in respiratory events. 5. The patient should be reminded of the medical, accident and cognitive risks associated with sleep apnea. 6. Clinical correlation and follow-up is advised. EXERCISE CAPACITY: 4-10 mets. Patient can walk 2 blocks SOCIAL HISTORY: Social History Tobacco Use Smoking status: Former Packs/day: 1.00 Years: 5.00 Pack years: 5.00 Types: Cigarettes Quit date: 01/2021 Years since quittin.4 Smokeless tobacco: Never Substance Use Topics Alcohol use: Not Currently Drug use: Never reports no history of drug use. MEDICAL HISTORY: Past Medical History: Diagnosis Date DIONNE (obstructive sleep apnea) SURGICAL HISTORY: Past Surgical History: Procedure Laterality Date BRONCHOSCOPY, FLEXIBLE, DRUG INDUCED SLEEP ENDOSCOPY (DISE) N/A 06/03/2022 Procedure: BRONCHOSCOPY, FLEXIBLE, DRUG INDUCED SLEEP ENDOSCOPY (DISE); Surgeon: MarkS. Moreno MD; Location: PACU Procedure Rooms; Service: Otolaryngology CHOLECYSTECTOMY UVULOPALATOPHARYNGOPLASTY N/A 02/25/2022 Procedure: UVULOPALATOPHARYNGOPLASTY; Surgeon: Yi Moreno MD; Location: PERIOPERATIVE SERVICES; Service: Otolaryngology PROBLEM LIST: Patient Active Problem List: DIONNE (obstructive sleep apnea) [G47.33] FAMILY HISTORY: No family history on file. ANESTHESIA REVIEW OF SYSTEMS: Eyes/ENT: Eye Glasses and s/p UVULOPALATOPHARYNGOPLASTY; 02/2022 Teeth: Missing teeth, upper denture and lower partial Pulmonary: DIONNE, and suffers from CPAP intolerance Cardio-vascular: HTN, HLD and denies CP, SOB, BA, Syncope or palpitations G.I./ Hepatic: s/p cholecystectomy Renal/: hx of nephrolithiasis, s/p cytoscopy and lithotripsy 12/2021 Neurological: Migraines Gynecological: LMP: has not had one in a year, thinks she is Pre menopausal , s/p Psychiatric: bipolar, depression, anxiety, and Panic attacks Musculoskeletal: Negative Endocrine: obesity, hypothyroidism Hematologic: Negative Constitutional: Negative Skin: Intact PREVIOUS ANESTHETIC COMPLICATIONS: None FAMILY HISTORY OF ANESTHETIC COMPLICATIONS: No PHYSICAL EXAM: Eyes: PERRL, EOM's intact, and Wears glasses ENT: Mucosa normal, Neck supple, and Carotids normal pulse without bruits Pulmonary: Chest clear to auscultation bilaterally Cardiovascular: RRR with S1S2 and No murmurs, gallops, or rubs Abdomen: Soft and non-tender and Bowel sounds normal Extremities: No gross or obvious abnormalities Neurologic: Awake, alert, oriented, No motor deficits, and Sensation grossly intact Psychiatric: alert and oriented to person, place and time, Appropriate mood/affect Skin: No gross or obvious abnormalities on visible skin AIRWAY EXAM: Mallampati score: 2 TMD: Adequate Neck Extension/ Flexion: Adequate Mouth Opening: Adequate Dentition: Upper dentures, Partials, and Missing teeth Micrognathia/Overbite: Yes PAIN ASSESSMENT: Severity: 0 Location: N/A LABORATORY DATA: Type & Screen (Last result in the past 30 days) ABO Rh Screen Int. 07/08/22 1520 B Positive CBC (last 3 years, up to 5 values) WBC RBC Hgb Hct MCV RDW Plt 07/08/22 1512 7.2 4.32 14.3 42.2 98 13.4 274 Basic Metabolic Panel None Basic Metabolic Panel None PT/PTT/INR (last 3 years, up to 5 values) None Arterial Blood Gases None No result for BNP LFT's (last 3 years, up to 5 values) None TESTS REVIEWED: CXRay: No Chest x-ray found EK02/16/2022 Normal sinus rhythm Nonspecific T wave abnormality Abnormal ECG No previous ECGs available Confirmed by OLGA MONTES ([id number]) on 02/17/2022 9:51:58 PM ECHO: Last Echocardiogram: none found going back to 06/17/2017 No results found for this basename: LVEF Stress test date: Last StressTest: none found going back to 06/17/2017 CURRENT MEDICATION LIST: Current Outpatient Medications Medication Sig Dispense Refill metformin (GLUCOPHAGE-XR) 500 MG XR tablet Take 500 mg by mouth daily. Phentermine HCl 37.5 MG TABS Take 1 Tablet by mouth daily. acetaminophen (TYLENOL) 325 mg tablet Take 2 Tablets by mouth every 4 hours as needed. 30 Tablet 0 acetaminophen (Tylenol 8 Hour) 650 MG CR tablet Take 1 Tablet by mouth every 8 hours as needed for Pain or Fever. 30 Tablet 0 senna (SENOKOT) 8.6 MG tablet Take 1 Tablet by mouth daily as needed for Constipation. (Patient nottaking: Reported on 07/08/2022) 30 Tablet 0 sucralfate (CARAFATE) 1 GM tablet Take 1 Tablet by mouth 4 times daily. (Patient not taking: Reported on 07/08/2022) 40 Tablet 3 atorvastatin (LIPITOR) 20 mg tablet Take 20 mg by mouth. oxybutynin (DITROPAN) 5 MG tablet Take 5 mg by mouth. (Patient not taking: Reported on 07/08/2022) OLANZapine (ZyPREXA) 5 MG tablet Take 5 mg by mouth at bedtime. OLANZapine (ZyPREXA) 5 MG tablet Take 10 mg by mouth. hs oxybutynin (DITROPAN) 5 MG tablet Take 5 mg by mouth 3 times daily as needed. levothyroxine (SYNTHROID) 25 MCG tablet TAKE 1 TABLET BY MOUTH EVERY DAY IN THE AM ON AN EMPTY STOMACH. DO NOT EAT OR DRINK FOR 2 HOURS AFTER TAKING norethindrone (MICRONOR) 0.35 MG tablet Take by mouth. (Patient not taking: Reported on 07/08/2022) clonazePAM (KlonoPIN) 1 MG tablet Take 1 mg by mouth every 12 hours as needed. atenolol (TENORMIN) 100 mg tablet Take 100 mg by mouth daily. venlafaxine (EFFEXOR XR) 75 MG ER capsule Take 75 mg by mouth daily. venlafaxine (EFFEXOR XR) 150 MG ER capsule Take 150 mg by mouth daily. triamterene-hydrochlorothiazide (MAXZIDE) 37.5-25 MG tablet Take 1 Tablet by mouth every other day.HS tamsulosin (FLOMAX) 0.4 MG capsule Take 1 Capsule by mouth daily. (Patient not taking: Reported on 07/08/2022) No current facility-administered medications for this visit. CURRENT MEDICATIONS: Aspirin: No NSAIDS: No Other Antiplatelet Medication: No Anticoagulants: No Steroids: No PATIENT MEDICATION INSTRUCTIONS: On the morning of your surgery please take only the following medications, with a small sip of water: See patient instruction for details LABS, TESTS, CONSULTS ORDERED: Orders & Meds Signed During This Encounter COMPLETE BLOOD COUNT [CBC] TYPE AND SCREEN [TS] Abo Rh Type metformin (GLUCOPHAGE-XR) 500 MG XR tablet Phentermine HCl 37.5 MG TABS PLAN: Documentation complete. Labs, Images, and Medications reviewed, and patient questions answered. Interviewer signature: ARTURO Arredondo 4:25 PM 07/08/2022 documented in this [id number] NotePresurgical Evaluation Isabelle Hewitt, [id number] 47 year old Female 07/08/2022 BP 122/80 Pulse 98 Temp 97.9 ???F (36.6 ???C) (Temporal) Resp 14 Ht 1.575 m (5' 2 ) Wt 89.2 kg (196 lb 9.6 oz) LMP (LMP Unknown) SpO2 98% BMI 35.96 kg/m??? ALLERGIES: No Known Allergies HISTORY OF PRESENT ILLNESS: Isabelle Hewitt is a 47 year old female pt who is seen here today for pre-surgical evaluation for LEFORTE I OSTEOTOMY - Bilateral, OSTEOTOMY, SAGITTAL SPLIT, BILATERAL - Bilateral. She has a h/o DIONNE. Currently denies fever and chills, new cough, SOB or CP. She is scheduled for surgery w/ Dr. Rodrigues on 07/14/2022 RECENT ILLNESS: Serious illness or hospitalization within the last six months. No STOP-BANG Row Name 07/07/22 1608 History of sleep apnea? Yes Does not use CPAP PS12/17/2021 at [facility] RESPIRATORY DATA INTEGRITY: Respiratory data integrity was excellent, with no time lost to artifacts. Respiratory data integrity was 100% for flow quality, 96.6% for oximetry saturation quality and 100% for RIP sensor belt quality. IMPRESSION: 1. Very severe obstructive sleep apnea. 2. Very severe hypoxia associated with sleep apnea. 3. Significant tachycardia during sleep. COMMENTS: The patient was clinically suspected of obstructive sleep apnea and had been previously diagnosed with the disorder. She was interested in exploring Inspire therapy. This home sleep test does confirm that severe sleep apnea is present, but also finds that the apnea/hypopnea index falls within the acceptable range for Inspire therapy. Should she meet other criteria and be interested in referral, she could be evaluated for possible Inspire therapy. The patient did have severe nocturnal hypoxia, and there should be documentation that this is controlled with whatever treatment is selected. RECOMMENDATIONS: 1. The patient should continue current therapy for control of obstructive sleep apnea and hypoxia. 2. The patient could be considered for Inspire therapy if she meets other criteria and is interested in that approach. 3. The patient should ensure adequate total sleep time and regular sleep-wake cycles. The principles of appropriate sleep hygiene should be encouraged. 4. The patient should continue efforts at progressive weight loss. Even moderate weight loss can result in significant improvement in respiratory events. 5. The patient should be reminded of the medical, accident and cognitive risks associated with sleep apnea. 6. Clinical correlation and follow-up is advised. EXERCISE CAPACITY: 4-10 mets. Patient can walk 2 blocks SOCIAL HISTORY: Social History Tobacco Use Smoking status: Former Packs/day: 1.00 Years: 5.00 Pack years: 5.00 Types: Cigarettes Quit date: 01/2021 Years since quittin.4 Smokeless tobacco: Never Substance Use Topics Alcohol use: Not Currently Drug use: Never reports no history of drug use. MEDICAL HISTORY: Past Medical History: Diagnosis Date DIONNE (obstructive sleep apnea) SURGICAL HISTORY: Past Surgical History: Procedure Laterality Date BRONCHOSCOPY, FLEXIBLE, DRUG INDUCED SLEEP ENDOSCOPY (DISE) N/A 06/03/2022 Procedure: BRONCHOSCOPY, FLEXIBLE, DRUG INDUCED SLEEP ENDOSCOPY (DISE); Surgeon: Yi Moreno MD; Location: PACU Procedure Rooms; Service: Otolaryngology CHOLECYSTECTOMY UVULOPALATOPHARYNGOPLASTY N/A 02/25/2022 Procedure: UVULOPALATOPHARYNGOPLASTY; Surgeon: Yi Moreno MD; Location: PERIOPERATIVE SERVICES; Service: Otolaryngology PROBLEM LIST: Patient Active Problem List: DIONNE (obstructive sleep apnea) [G47.33] FAMILY HISTORY: No family history on file. ANESTHESIA REVIEW OF SYSTEMS: Eyes/ENT: Eye Glasses and s/p UVULOPALATOPHARYNGOPLASTY; 02/2022 Teeth: Missing teeth, upper denture and lower partial Pulmonary: DIONNE, and suffers from CPAP intolerance Cardio-vascular: HTN, HLD and denies CP, SOB, BA, Syncope or palpitations G.I./ Hepatic: s/p cholecystectomy Renal/: hx of nephrolithiasis, s/p cytoscopy and lithotripsy 12/2021 Neurological: Migraines Gynecological: LMP: has not had one in a year, thinks she is Pre menopausal , s/p Psychiatric: bipolar, depression, anxiety, and Panic attacks Musculoskeletal: Negative Endocrine: obesity, hypothyroidism Hematologic: Negative Constitutional: Negative Skin: Intact PREVIOUS ANESTHETIC COMPLICATIONS: None FAMILY HISTORY OF ANESTHETIC COMPLICATIONS: No PHYSICAL EXAM: Eyes: PERRL, EOM's intact, and Wears glasses ENT: Mucosa normal, Neck supple, and Carotids normal pulse without bruits Pulmonary: Chest clear to auscultation bilaterally Cardiovascular: RRR with S1S2 and No murmurs, gallops, or rubs Abdomen: Soft and non-tender and Bowel sounds normal Extremities: No gross or obvious abnormalities Neurologic: Awake, alert, oriented, No motor deficits, and Sensation grossly intact Psychia (more content not included)...[employer] [id number] Note* PSE Appt H&P - Gena Holbrook APRN-BRIAN - 07/07/2022 4:03 PM EST Presurgical Evaluation Isabelle Hewitt, [id number] 47 year old Female 07/08/2022 BP 122/80 Pulse 98 Temp 97.9 F (36.6 C) (Temporal) Resp 14 Ht 1.575 m (5' 2 ) Wt 89.2 kg (196 lb 9.6 oz) LMP (LMP Unknown) SpO2 98% BMI 35.96 kg/m ALLERGIES: No Known Allergies HISTORY OF PRESENT ILLNESS: Isabelle Hewitt is a 47 year old female pt who is seen here today for pre-surgical evaluation for LEFORTE I OSTEOTOMY - Bilateral, OSTEOTOMY, SAGITTAL SPLIT, BILATERAL - Bilateral. She has a h/o DIONNE. Currently denies fever and chills, new cough, SOB or CP. She is scheduled for surgery w/ Dr. Rodrigues on 07/14/2022 RECENT ILLNESS: Serious illness or hospitalization within the last six months. No STOP-BANG Row Name 07/07/22 1608 History of sleep apnea? Yes Does not use CPAP PS12/17/2021 at [facility] RESPIRATORY DATA INTEGRITY: Respiratory data integrity was excellent, with no time lost to artifacts. Respiratory data integrity was 100% for flow quality, 96.6% for oximetry saturation quality and 100% for RIP sensor belt quality. IMPRESSION: 1. Very severe obstructive sleep apnea. 2. Very severe hypoxia associated with sleep apnea. 3. Significant tachycardia during sleep. COMMENTS: The patient was clinically suspected of obstructive sleep apnea and had been previously diagnosed with the disorder. She was interested in exploring Inspire therapy. This home sleep test does confirm that severe sleep apnea is present, but also finds that the apnea/hypopnea index falls within the acceptable range for Inspire therapy. Should she meet other criteria and be interested in referral, she could be evaluated for possible Inspire therapy. The patient did have severe nocturnal hypoxia, and there should be documentation that this is controlled with whatever treatment is selected. RECOMMENDATIONS: 1. The patient should continue current therapy for control of obstructive sleep apnea and hypoxia. 2. The patient could be considered for Inspire therapy if she meets other criteria and is interested in that approach. 3. The patient should ensure adequate total sleep time and regular sleep-wake cycles. The principles of appropriate sleep hygiene should be encouraged. 4. The patient should continue efforts at progressive weight loss. Even moderate weight loss can result in significant improvement in respiratory events. 5. The patient should be reminded of the medical, accident and cognitive risks associated with sleep apnea. 6. Clinical correlation and follow-up is advised. EXERCISE CAPACITY: 4-10 mets. Patient can walk 2 blocks SOCIAL HISTORY: Social History Tobacco Use Smoking status: Former Packs/day: 1.00 Years: 5.00 Pack years: 5.00 Types: Cigarettes Quit date: 01/2021 Years since quittin.4 Smokeless tobacco: Never Substance Use Topics Alcohol use: Not Currently Drug use: Never reports no history of drug use. MEDICAL HISTORY: Past Medical History: Diagnosis Date DIONNE (obstructive sleep apnea) SURGICAL HISTORY: Past Surgical History: Procedure Laterality Date BRONCHOSCOPY, FLEXIBLE, DRUG INDUCED SLEEP ENDOSCOPY (DISE) N/A 06/03/2022 Procedure: BRONCHOSCOPY, FLEXIBLE, DRUG INDUCED SLEEP ENDOSCOPY (DISE); Surgeon: MarkS. Moreno MD; Location: PACU Procedure Rooms; Service: Otolaryngology CHOLECYSTECTOMY UVULOPALATOPHARYNGOPLASTY N/A 02/25/2022 Procedure: UVULOPALATOPHARYNGOPLASTY; Surgeon: Yi Moreno MD; Location: PERIOPERATIVE SERVICES; Service: Otolaryngology PROBLEM LIST: Patient Active Problem List: DIONNE (obstructive sleep apnea) [G47.33] FAMILY HISTORY: No family history on file. ANESTHESIA REVIEW OF SYSTEMS: Eyes/ENT: Eye Glasses and s/p UVULOPALATOPHARYNGOPLASTY; 02/2022 Teeth: Missing teeth, upper denture and lower partial Pulmonary: DIONNE, and suffers from CPAP intolerance Cardio-vascular: HTN, HLD and denies CP, SOB, BA, Syncope or palpitations G.I./ Hepatic: s/p cholecystectomy Renal/: hx of nephrolithiasis, s/p cytoscopy and lithotripsy 12/2021 Neurological: Migraines Gynecological: LMP: has not had one in a year, thinks she is Pre menopausal , s/p Psychiatric: bipolar, depression, anxiety, and Panic attacks Musculoskeletal: Negative Endocrine: obesity, hypothyroidism Hematologic: Negative Constitutional: Negative Skin: Intact PREVIOUS ANESTHETIC COMPLICATIONS: None FAMILY HISTORY OF ANESTHETIC COMPLICATIONS: No PHYSICAL EXAM: Eyes: PERRL, EOM's intact, and Wears glasses ENT: Mucosa normal, Neck supple, and Carotids normal pulse without bruits Pulmonary: Chest clear to auscultation bilaterally Cardiovascular: RRR with S1S2 and No murmurs, gallops, or rubs Abdomen: Soft and non-tender and Bowel sounds normal Extremities: No gross or obvious abnormalities Neurologic: Awake, alert, oriented, No motor deficits, and Sensation grossly intact Psychiatric: alert and oriented to person, place and time, Appropriate mood/affect Skin: No gross or obvious abnormalities on visible skin AIRWAY EXAM: Mallampati score: 2 TMD: Adequate Neck Extension/ Flexion: Adequate Mouth Opening: Adequate Dentition: Upper dentures, Partials, and Missing teeth Micrognathia/Overbite: Yes PAIN ASSESSMENT: Severity: 0 Location: N/A LABORATORY DATA: Type & Screen (Last result in the past 30 days) ABO Rh Screen Int. 07/08/22 1520 B Positive CBC (last 3 years, up to 5 values) WBC RBC Hgb Hct MCV RDW Plt 07/08/22 1512 7.2 4.32 14.3 42.2 98 13.4 274 Basic Metabolic Panel None Basic Metabolic Panel None PT/PTT/INR (last 3 years, up to 5 values) None Arterial Blood Gases None No result for BNP LFT's (last 3 years, up to 5 values) None TESTS REVIEWED: CXRay: No Chest x-ray found EK02/16/2022 Normal sinus rhythm Nonspecific T wave abnormality Abnormal ECG No previous ECGs available Confirmed by OLGA MONTES ([id number]) on 02/17/2022 9:51:58 PM ECHO: Last Echocardiogram: none found going back to 06/17/2017 No results found for this basename: LVEF Stress test date: Last StressTest: none found going back to 06/17/2017 CURRENT MEDICATION LIST: Current Outpatient Medications Medication Sig Dispense Refill metformin (GLUCOPHAGE-XR) 500 MG XR tablet Take 500 mg by mouth daily. Phentermine HCl 37.5 MG TABS Take 1 Tablet by mouth daily. acetaminophen (TYLENOL) 325 mg tablet Take 2 Tablets by mouth every 4 hours as needed. 30 Tablet 0 acetaminophen (Tylenol 8 Hour) 650 MG CR tablet Take 1 Tablet by mouth every 8 hours as needed for Pain or Fever. 30 Tablet 0 senna (SENOKOT) 8.6 MG tablet Take 1 Tablet by mouth daily as needed for Constipation. (Patient nottaking: Reported on 07/08/2022) 30 Tablet 0 sucralfate (CARAFATE) 1 GM tablet Take 1 Tablet by mouth 4 times daily. (Patient not taking: Reported on 07/08/2022) 40 Tablet 3 atorvastatin (LIPITOR) 20 mg tablet Take 20 mg by mouth. oxybutynin (DITROPAN) 5 MG tablet Take 5 mg by mouth. (Patient not taking: Reported on 07/08/2022) OLANZapine (ZyPREXA) 5 MG tablet Take 5 mg by mouth at bedtime. OLANZapine (ZyPREXA) 5 MG tablet Take 10 mg by mouth. hs oxybutynin (DITROPAN) 5 MG tablet Take 5 mg by mouth 3 times daily as needed. levothyroxine (SYNTHROID) 25 MCG tablet TAKE 1 TABLET BY MOUTH EVERY DAY IN THE AM ON AN EMPTY STOMACH. DO NOT EAT OR DRINK FOR 2 HOURS AFTER TAKING norethindrone (MICRONOR) 0.35 MG tablet Take by mouth. (Patient not taking: Reported on 07/08/2022) clonazePAM (KlonoPIN) 1 MG tablet Take 1 mg by mouth every 12 hours as needed. atenolol (TENORMIN) 100 mg tablet Take 100 mg by mouth daily. venlafaxine (EFFEXOR XR) 75 MG ER capsule Take 75 mg by mouth daily. venlafaxine (EFFEXOR XR) 150 MG ER capsule Take 150 mg by mouth daily. triamterene-hydrochlorothiazide (MAXZIDE) 37.5-25 MG tablet Take 1 Tablet by mouth every other day.HS tamsulosin (FLOMAX) 0.4 MG capsule Take 1 Capsule by mouth daily. (Patient not taking: Reported on 07/08/2022) No current facility-administered medications for this visit. CURRENT MEDICATIONS: Aspirin: No NSAIDS: No Other Antiplatelet Medication: No Anticoagulants: No Steroids: No PATIENT MEDICATION INSTRUCTIONS: On the morning of your surgery please take only the following medications, with a small sip of water: See patient instruction for details LABS, TESTS, CONSULTS ORDERED: Orders & Meds Signed During This Encounter COMPLETE BLOOD COUNT [CBC] TYPE AND SCREEN [TS] Abo Rh Type metformin (GLUCOPHAGE-XR) 500 MG XR tablet Phentermine HCl 37.5 MG TABS PLAN: Documentation complete. Labs, Images, and Medications reviewed, and patient questions answered. Interviewer signature: ARTURO Arredondo 4:25 PM 07/08/2022 [id number] NotePatient is vaccinated for COVID-19. Vaccinations are documented in Epic. Patient does not require pre-op COVID testing per current guidelines.[employer] [id number] Telephone encounter Note* Telephone Encounter - Mary Dennis RN - 07/05/2022 8:53 PM EST Patient is vaccinated for COVID-19. Vaccinations are documented in Epic. Patient does not require pre-op COVID testing per current guidelines. [id number] Miscellaneous Notes* Telephone Encounter - Mary Dennis RN - 07/05/2022 8:53 PM EST Patient is vaccinated for COVID-19. Vaccinations are documented in Epic. Patient does not require pre-op COVID testing per current guidelines. documented in this [id number] Note* PSE Appt H&P - Pierce Ramos APRN-CNP - 07/05/2022 12:06 PM EST Error [facility] Work Phone: [phone]) 212-671511-14-2022 Miscellaneous Notes* PSE Appt H&P - Pierce Ramos APRN-CNP - 07/05/2022 12:06 PM EST Error documented in this [id number] History of Present illness Narrative* Seferino Vaz DMD - 07/02/2022 11:00 AM EST ORAL SURGERY CLINIC FOLLOW UP VISIT Patient was seen in the [facility] clinic for alginate impressions of the edentulous maxilla and CBCT with denture in place. Seferino Vaz DMD OMFS Resident ms. documented in this [id number] History of Present illness Narrative* CleRikki norris DMD, MD - 06/18/2022 4:17 PM EDT Images from the original note were not included. [facility] PATIENT VISIT CHIEF COMPLAINT: sleep apnea HISTORY OF PRESENT ILLNESS: Patient presents for evaluation for surgical treatment of DIONNE. She is extremely symptomatic from her DIONNE, and suffers from CPAP intolerance. [place] sleepiness scale is 18. Patient is starting to experience some drowsy driving. She has undergone tonsillectomy and ODALIS with Dr. Moreno in February. According to his note, A follow-up in-lab sleep study after her expansion pharyngoplasty demonstrated an AHI of 102.7 with no mixed or central apnea and an O2 carlene of 71% . Those results aren't immediately available to me. Referred for evaluation for MMA. 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 Missing several teeth in the mandible, and has an RPD that she doesn't wear. PAST MEDICAL HISTORY: 47 yrs old White female Past Medical History: Diagnosis Date DIONNE (obstructive sleep apnea) Patient Active Problem List: DIONNE (obstructive sleep apnea) [G47.33] MEDICATIONS: Current Outpatient Medications Medication Sig Dispense Refill acetaminophen (TYLENOL) 325 mg tablet Take 2 Tablets by mouth every 4 hours as needed. 30 Tablet 0 acetaminophen (Tylenol 8 Hour) 650 MG CR tablet Take 1 Tablet by mouth every 8 hours as needed for Pain or Fever. 30 Tablet 0 senna (SENOKOT) 8.6 MG tablet Take 1 Tablet by mouth daily as needed for Constipation. 30 Tablet 0 sucralfate (CARAFATE) 1 GM tablet Take 1 Tablet by mouth 4 times daily. 40 Tablet 3 methylPREDNISolone (MEDROL DOSEPAK) 4 mg tablet Please take according to instructions on container 21 Tablet 0 atorvastatin (LIPITOR) 20 mg tablet Take 20 mg by mouth. oxybutynin (DITROPAN) 5 MG tablet Take 5 mg by mouth. OLANZapine (ZyPREXA) 5 MG tablet Take 5 mg by mouth at bedtime. OLANZapine (ZyPREXA) 5 MG tablet Take by mouth. oxybutynin (DITROPAN) 5 MG tablet Take 5 mg by mouth 3 times daily as needed. levothyroxine (SYNTHROID) 25 MCG tablet TAKE 1 TABLET BY MOUTH EVERY DAY IN THE AM ON AN EMPTY STOMACH. DO NOT EAT OR DRINK FOR 2 HOURS AFTER TAKING norethindrone (MICRONOR) 0.35 MG tablet Take by mouth. clonazePAM (KlonoPIN) 1 MG tablet Take 1 mg by mouth every 12 hours as needed. atenolol (TENORMIN) 100 mg tablet Take 100 mg by mouth daily. venlafaxine (EFFEXOR XR) 75 MG ER capsule Take 75 mg by mouth daily. venlafaxine (EFFEXOR XR) 150 MG ER capsule Take 150 mg by mouth daily. triamterene-hydrochlorothiazide (MAXZIDE) 37.5-25 MG tablet Take 1 Tablet by mouth every other day. tamsulosin (FLOMAX) 0.4 MG capsule Take 1 Capsule by mouth daily. No current facility-administered medications for this visit. ALLERGIES: Patient has no known allergies. SURGICAL HX: Past Surgical History: Procedure Laterality Date BRONCHOSCOPY, FLEXIBLE, DRUG INDUCED SLEEP ENDOSCOPY (DISE) N/A 06/03/2022 Procedure: BRONCHOSCOPY, FLEXIBLE, DRUG INDUCED SLEEP ENDOSCOPY (DISE); Surgeon: MarkS. Moreno MD; Location: PACU Procedure Rooms; Service: Otolaryngology CHOLECYSTECTOMY UVULOPALATOPHARYNGOPLASTY N/A 02/25/2022 Procedure: UVULOPALATOPHARYNGOPLASTY; Surgeon: Yi Moreno MD; Location: PERIOPERATIVE SERVICES; Service: Otolaryngology SOCIAL HX: Tobacco: Quit Packs: 1 Years: 5 Other types: Cigarettes Quit Date: 01/20/2021 CLINICAL EXAMINATION HEAD: atraumatic, retrognathic appearance with weak chin. Very obtuse cervicomental angle, thick neck EYES: PERRL, Visual acuity intact, extraocular movements intact EARS: hearing intact symmetrically, EAC clear NOSE: anterior rhinoscopy shows no nasal congestion, no septal deviation, normal sized inferior turbinates, generally small nasal aperture. OROPHARYNX: Edentulous maxilla, missing many teeth on mandible. Has upper denture which has adequate fit. Alveolar irregularity of the maxilla, and a small bony sequestrum removed today from the #12 area. Tonsils are surgically absent. SARAH is 40mm, no TMJ abnormality noted on exam. RADIOGRAPHIC INTERPRETATION: CBCT Film taken on 06/18/2022, and Digital version in [facility] [employer] system. Airway measurements are very small compared to norms. Retrognathic mandible. DIAGNOSIS: Obstructive sleep apnea [139506] TREATMENT: Exam, Panorex evaluated, and pictures/models taken today. PLAN: Tentative plan for maxillomandibular advancement. Explained to patient the need for new dentures afterwards, due to inevitable change in occlusion. Discussed with patient at length the review of results, in consideration of data from CBCT analysis, DISE, and PSG. Airway volumetric analysis is smaller compared to averages. Also with maxillary andmandibular hypoplasia and micrognathia. Therefore, skeletal predisposition is a major contributor. D iscussed with patient option for maxillomandibular advancement, including risks which were listed as sensory disturbance to the upper/lower lip and chin, change in bite, infection, need for hardware removal, change in appearance/profile. Also listed simply continuing with APAP. After discussion, patient is motivated to proceed with MMA surgery. Rikki Rodrigues DMD, MD documented in this [id number] History of Present illness Narrative* Margot Ovalles DDS - 06/18/2022 4:17 PM EDT Images from the original note were not included. [facility] PATIENT VISIT CHIEF COMPLAINT: sleep apnea HISTORY OF PRESENT ILLNESS: Patient presents for evaluation for surgical treatment of DIONNE. She is extremely symptomatic from her DIONNE, and suffers from CPAP intolerance. [place] sleepiness scale is 18. Patient is starting to experience some drowsy driving. She has undergone tonsillectomy and ODALIS with Dr. Moreno in February. According to his note, A follow-up in-lab sleep study after her expansion pharyngoplasty demonstrated an AHI of 102.7 with no mixed or central apnea and an O2 carlene of 71% . Those results aren't immediately available to me. Referred for evaluation for MMA. 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 Missing several teeth in the mandible, and has an RPD that she doesn't wear. PAST MEDICAL HISTORY: 47 yrs old White female Past Medical History: Diagnosis Date DIONNE (obstructive sleep apnea) Patient Active Problem List: DIONNE (obstructive sleep apnea) [G47.33] MEDICATIONS: Current Outpatient Medications Medication Sig Dispense Refill acetaminophen (TYLENOL) 325 mg tablet Take 2 Tablets by mouth every 4 hours as needed. 30 Tablet 0 acetaminophen (Tylenol 8 Hour) 650 MG CR tablet Take 1 Tablet by mouth every 8 hours as needed for Pain or Fever. 30 Tablet 0 senna (SENOKOT) 8.6 MG tablet Take 1 Tablet by mouth daily as needed for Constipation. 30 Tablet 0 sucralfate (CARAFATE) 1 GM tablet Take 1 Tablet by mouth 4 times daily. 40 Tablet 3 methylPREDNISolone (MEDROL DOSEPAK) 4 mg tablet Please take according to instructions on container 21 Tablet 0 atorvastatin (LIPITOR) 20 mg tablet Take 20 mg by mouth. oxybutynin (DITROPAN) 5 MG tablet Take 5 mg by mouth. OLANZapine (ZyPREXA) 5 MG tablet Take 5 mg by mouth at bedtime. OLANZapine (ZyPREXA) 5 MG tablet Take by mouth. oxybutynin (DITROPAN) 5 MG tablet Take 5 mg by mouth 3 times daily as needed. levothyroxine (SYNTHROID) 25 MCG tablet TAKE 1 TABLET BY MOUTH EVERY DAY IN THE AM ON AN EMPTY STOMACH. DO NOT EAT OR DRINK FOR 2 HOURS AFTER TAKING norethindrone (MICRONOR) 0.35 MG tablet Take by mouth. clonazePAM (KlonoPIN) 1 MG tablet Take 1 mg by mouth every 12 hours as needed. atenolol (TENORMIN) 100 mg tablet Take 100 mg by mouth daily. venlafaxine (EFFEXOR XR) 75 MG ER capsule Take 75 mg by mouth daily. venlafaxine (EFFEXOR XR) 150 MG ER capsule Take 150 mg by mouth daily. triamterene-hydrochlorothiazide (MAXZIDE) 37.5-25 MG tablet Take 1 Tablet by mouth every other day. tamsulosin (FLOMAX) 0.4 MG capsule Take 1 Capsule by mouth daily. No current facility-administered medications for this visit. ALLERGIES: Patient has no known allergies. SURGICAL HX: Past Surgical History: Procedure Laterality Date BRONCHOSCOPY, FLEXIBLE, DRUG INDUCED SLEEP ENDOSCOPY (DISE) N/A 06/03/2022 Procedure: BRONCHOSCOPY, FLEXIBLE, DRUG INDUCED SLEEP ENDOSCOPY (DISE); Surgeon: MarkS. Moreno MD; Location: PACU Procedure Rooms; Service: Otolaryngology CHOLECYSTECTOMY UVULOPALATOPHARYNGOPLASTY N/A 02/25/2022 Procedure: UVULOPALATOPHARYNGOPLASTY; Surgeon: Yi Moreno MD; Location: PERIOPERATIVE SERVICES; Service: Otolaryngology SOCIAL HX: Tobacco: Quit Packs: 1 Years: 5 Other types: Cigarettes Quit Date: 01/20/2021 CLINICAL EXAMINATION HEAD: atraumatic, retrognathic appearance with weak chin. Very obtuse cervicomental angle, thick neck EYES: PERRL, Visual acuity intact, extraocular movements intact EARS: hearing intact symmetrically, EAC clear NOSE: anterior rhinoscopy shows no nasal congestion, no septal deviation, normal sized inferior turbinates, generally small nasal aperture. OROPHARYNX: Edentulous maxilla, missing many teeth on mandible. Has upper denture which has adequate fit. Alveolar irregularity of the maxilla, and a small bony sequestrum removed today from the #12 area. Tonsils are surgically absent. SARAH is 40mm, no TMJ abnormality noted on exam. RADIOGRAPHIC INTERPRETATION: CBCT Film taken on 06/18/2022, and Digital version in [facility] system. Airway measurements are very small compared to norms. Retrognathic mandible. DIAGNOSIS: Obstructive sleep apnea [964741] TREATMENT: Exam, Panorex evaluated, and pictures/models taken today. PLAN: Tentative plan for maxillomandibular advancement. Explained to patient the need for new dentures afterwards, due to inevitable change in occlusion. Discussed with patient at length the review of results, in consideration of data from CBCT analysis, DISE, and PSG. Airway volumetric analysis is smaller compared to averages. Also with maxillary andmandibular hypoplasia and micrognathia. Therefore, skeletal predisposition is a major contributor. D iscussed with patient option for maxillomandibular advancement, including risks which were listed as sensory disturbance to the upper/lower lip and chin, change in bite, infection, need for hardware removal, change in appearance/profile. Also listed simply continuing with APAP. After discussion, patient is motivated to proceed with MMA surgery. Rikki Rodrigues DMD, MD documented in this [id number] Instructions* Patient Instructions* Rikki Rodrigues DMD, MD - 06/18/2022 3:51 PM EDT Images from the original note were not included. Maxillomandibular advancement surgery, or MMA, utilizes movement of the jaws to help open the airway while you sleep. The upper and lower jaw bone are broken during surgery and moved forward to a newposition. Plates and screws under the gums hold the bones in place. During the recovery period, youwill be required to maintain a no chew diet for several weeks before progressing back to a normal diet. Required to complete pre-surgical evaluation prior to surgery. No food or drink after midnight the night before surgery. We anticipate 2-4 nights in the hospital, the first several of which may be in the intensive care unit for airway monitoring. There is a small chance of remaining intubated (breathing tube) followingsurgery. There is also a small chance of remaining wired closed. However, most patients only require rubber bands. You have elected to forego orthodontic treatment prior to surgery. Our goal is to maintain your bite in the same position, though there may be small noticeable changes. The only way to change or improve your bite before or after surgery is orthodontics, though we do not anticipate this affecting the management of your sleep apnea. We also anticipate noticeable changes to your facial appearance, including an increased prominence of your chin and upper jaw, as well as changes to your nose. As discussed, other risks include bleeding, infection, necessity of additional surgeries, and hardware failure. There is a risk of nerve damage on the lower jaw resulting in numbness of the chin/lower lip. There is a risk of necrosis or loss of segments of the upper jaw (rare). While we anticipate significant improvement in sleep apnea symptoms and sleep study results, most patients are not cured. Some patients are recommended to continue CPAP treatment after surgery for residual sleep apnea. Some patients benefit from additional surgeries such as INSPIRE. This surgery does not treat central apneas, or sleep apnea related to the brain not sending the signal to breath.Central apneas may continue to produce symptoms such as daytime fatigue and inconsistent sleep. documented in this [id number] NoteSurgical Attestation: I have reviewed the patient's History and Physical Examination. I have personally seen and evaluated the patient, repeating ulloa portions. There is no significant interval change. Surgery is still indicated. Yes Consent reviewed and signed by patient/family: Yes Operative site verified and marked: site verified but not marked as not anatomically possible Ryann Brown PA-C 06/03/2022 11:55 AMThe [facility]10-10-2022 Evaluation note* Encounter Date Diagnosis Assessment Notes Treatment Notes Treatment Clinical Notes May, Encounter for screening for other viral diseases (ICD-10 - Z11.59) [facility] Other 10-07-2022 Note* PSE Call H&P - Rose Brown RN - 05/28/2022 9:42 AM EDT Images from the original note were not included. Telephone History Isabelle Hewitt, [id number] 05/28/2022 47 year old 190 lbs 5' 2 Patient identified by name and date of Height and weight reported by patient Date of Surgery: 06/03/2022 Surgeon: Dr Moreno Type of Surgery: DISE HISTORY OF PRESENT ILLNESS: PSE telephone history conducted with pt for surgery with Dr Moreno, PACU Dr Moreno 03/29/2022 HPI: History of obstructive sleep apnea, preoperative AHI 63 with O2 carlene 64% .CPAP intolerance, symptomatic. Surgical route recommended Multilevel upper airway obstruction including oropharynx and base of tongue diagnosed per sleep endoscopy Staged multilevel upper airway procedure recommended. Of note, patient is edentulous 02/25/2022-expansion sphincter pharyngoplasty Interval history: Postoperative pain mostly resolved. Lost about 10-15 lb after surgery Continues to be unable to tolerate CPAP because of significant discomfort caused by mask and she continues to be symptomatic with daytime fatigue, snoring and choking at night. Assessment and plan: History of very severe obstructive sleep apnea, status post ODALIS on 02/25/2022 to eliminate retro palatal and oropharyngeal obstruction. Continues to demonstrate sleep apnea related symptoms including choking at night - repeat sleep study and repeat sleep endoscopy - presumed residual base of tongue obstruction as previously seen on prior sleep endoscopy STOP-BANG Row Name 05/28/22 0906 History of sleep apnea? Yes dionne-intolerant of CPAP EXERCISE CAPACITY: 4-10 mets ALLERGIES: Patient has no known allergies. PREVIOUS ANESTHETIC EXPERIENCES AND INTUBATION HISTORY: No previous anesthetic complication FAMILY HISTORY OF ANESTHETIC COMPLICATIONS: Yes PAST MEDICAL HISTORY: Past Medical History: Diagnosis Date DIONNE (obstructive sleep apnea) PROBLEM LIST: Patient Active Problem List: DIONNE (obstructive sleep apnea) [G47.33] REVIEW OF SYSTEMS: Eyes/Ears: Eye Glasses ENT:Hx of UPPP Teeth Upper Denture, Lower partial, missing teeth Pulmonary: DIONNE Cardiovascular: HTN, HLD, denies SOB/wheezing/cough/nasal congestion/fever Gastrointestinal: Hx of cholecystectomy Renal/Genitourinary: Nephrolithiasis Musculoskeletal: Negative Endocrine: Thyroid disease Hematologic: Negative Neurologic: Migraines Psychiatric: Depression, Bipolar, and Anxiety Gynecologic:Menopausal Constitutional:Negative CBC (last 3 years, up to 5 values) None Basic Metabolic Panel None LFT's (last 3 years, up to 5 values) None No results found for: HBA1C PT/PTT/INR (last 3 years, up to 5 values) None Last ECG Date: 02/17/2022 Normal sinus rhythm Nonspecific T wave abnormality Abnormal ECG No previous ECGs available Confirmed by OLGA MONTES ([id number]) on 02/17/2022 9:51:58 PM Last Echocardiogram: none found going back to 06/17/2017 Last StressTest: none found going back to 06/17/2017 No Chest x-ray found No results found for: SARSCOV PAST SURGICAL HISTORY: Past Surgical History: Procedure Laterality Date CHOLECYSTECTOMY UVULOPALATOPHARYNGOPLASTY N/A 02/25/2022 Procedure: UVULOPALATOPHARYNGOPLASTY; Surgeon: Yi Moreno MD; Location: PERIOPERATIVE SERVICES; Service: Otolaryngology SOCIAL HISTORY: Social History Socioeconomic History Marital status: Unknown Tobacco Use Smoking status: Former Packs/day: 1.00 Years: 5.00 Pack years: 5.00 Types: Cigarettes Smokeless tobacco: Never Substance and Sexual Activity Alcohol use: Not Currently Drug use: Never CURRENT MEDICATION LIST: Current Outpatient Medications Medication Sig Dispense Refill acetaminophen (TYLENOL) 325 mg tablet Take 2 Tablets by mouth every 4 hours as needed. 30 Tablet 0 acetaminophen (Tylenol 8 Hour) 650 MG CR tablet Take 1 Tablet by mouth every 8 hours as needed for Pain or Fever. 30 Tablet 0 senna (SENOKOT) 8.6 MG tablet Take 1 Tablet by mouth daily as needed for Constipation. 30 Tablet 0 sucralfate (CARAFATE) 1 GM tablet Take 1 Tablet by mouth 4 times daily. 40 Tablet 3 methylPREDNISolone (MEDROL DOSEPAK) 4 mg tablet Please take according to instructions on container 21 Tablet 0 atorvastatin (LIPITOR) 20 mg tablet Take 20 mg by mouth. oxybutynin (DITROPAN) 5 MG tablet Take 5 mg by mouth. OLANZapine (ZyPREXA) 5 MG tablet Take 5 mg by mouth at bedtime. OLANZapine (ZyPREXA) 5 MG tablet Take by mouth. oxybutynin (DITROPAN) 5 MG tablet Take 5 mg by mouth 3 times daily as needed. levothyroxine (SYNTHROID) 25 MCG tablet TAKE 1 TABLET BY MOUTH EVERY DAY IN THE AM ON AN EMPTY STOMACH. DO NOT EAT OR DRINK FOR 2 HOURS AFTER TAKING norethindrone (MICRONOR) 0.35 MG tablet Take by mouth. clonazePAM (KlonoPIN) 1 MG tablet Take 1 mg by mouth every 12 hours as needed. atenolol (TENORMIN) 100 mg tablet Take 100 mg by mouth daily. venlafaxine (EFFEXOR XR) 75 MG ER capsule Take 75 mg by mouth daily. venlafaxine (EFFEXOR XR) 150 MG ER capsule Take 150 mg by mouth daily. triamterene-hydrochlorothiazide (MAXZIDE) 37.5-25 MG tablet Take 1 Tablet by mouth every other day. tamsulosin (FLOMAX) 0.4 MG capsule Take 1 Capsule by mouth daily. No current facility-administered medications for this visit. CURRENT MEDICATIONS: Aspirin: No NSAIDS: No Other Antiplatelet Medication: No Anticoagulants: No Steroids: No PATIENT MEDICATION INSTRUCTIONS: On the morning of your surgery please take only the following medications, with a small sip of water: atorvastatin (LIPITOR) 20 mg tablet OLANZapine (ZyPREXA) 5 MG tablet levothyroxine (SYNTHROID) 25 MCG tablet clonazePAM (KlonoPIN) 1 MG tablet atenolol (TENORMIN) 100 mg tablet venlafaxine (EFFEXOR XR) 150 MG ER capsule Do not take any Aspirin 7 days before the surgery. Do not take any Ibuprofen products/NSAIDs 3 daysbefore surgery. May take over the counter Acetaminophen (Tylenol) as needed for pain. Do not take any Vitamin E, [place] 3, fish oils, herbal medications 7 days prior to surgery (Fish Oil, Ginseng, Ginko Biloba) DAY OF SURGERY NOTES: No solid food after midnight, the day before surgery. Per anesthesia's fasting protocol: you may have clear liquids only, the morning of your surgery. You MUST stop drinking clear liquids 3 hours before your scheduled surgery time. Needs physical on DOS If the patient has diagnosed DIONNE, they are to bring their CPAP with them on the morning of surgery,does not use CPAP Rose Brown RN Time Spent Performing this Telephone History: 30 minutes [id number] Miscellaneous Notes* PSE Call H&P - Rose Brown RN - 05/28/2022 9:42 AM EDT Images from the original note were not included. Telephone History Isabelle Hewitt, [id number] 05/28/2022 47 year old 190 lbs 5' 2 Patient identified by name and date of Height and weight reported by patient Date of Surgery: 06/03/2022 Surgeon: Dr Moreno Type of Surgery: DISE HISTORY OF PRESENT ILLNESS: PSE telephone history conducted with pt for surgery with Dr Moreno, PACU Dr Moreno 03/29/2022 HPI: History of obstructive sleep apnea, preoperative AHI 63 with O2 carlene 64% .CPAP intolerance, symptomatic. Surgical route recommended Multilevel upper airway obstruction including oropharynx and base of tongue diagnosed per sleep endoscopy Staged multilevel upper airway procedure recommended. Of note, patient is edentulous 02/25/2022-expansion sphincter pharyngoplasty Interval history: Postoperative pain mostly resolved. Lost about 10-15 lb after surgery Continues to be unable to tolerate CPAP because of significant discomfort caused by mask and she continues to be symptomatic with daytime fatigue, snoring and choking at night. Assessment and plan: History of very severe obstructive sleep apnea, status post ODALIS on 02/25/2022 to eliminate retro palatal and oropharyngeal obstruction. Continues to demonstrate sleep apnea related symptoms including choking at night - repeat sleep study and repeat sleep endoscopy - presumed residual base of tongue obstruction as previously seen on prior sleep endoscopy STOP-BANG Row Name 05/28/22 0941 History of sleep apnea? Yes dionne-intolerant of CPAP EXERCISE CAPACITY: 4-10 mets ALLERGIES: Patient has no known allergies. PREVIOUS ANESTHETIC EXPERIENCES AND INTUBATION HISTORY: No previous anesthetic complication FAMILY HISTORY OF ANESTHETIC COMPLICATIONS: Yes PAST MEDICAL HISTORY: Past Medical History: Diagnosis Date DIONNE (obstructive sleep apnea) PROBLEM LIST: Patient Active Problem List: DIONNE (obstructive sleep apnea) [G47.33] REVIEW OF SYSTEMS: Eyes/Ears: Eye Glasses ENT:Hx of UPPP Teeth Upper Denture, Lower partial, missing teeth Pulmonary: DIONNE Cardiovascular: HTN, HLD, denies SOB/wheezing/cough/nasal congestion/fever Gastrointestinal: Hx of cholecystectomy Renal/Genitourinary: Nephrolithiasis Musculoskeletal: Negative Endocrine: Thyroid disease Hematologic: Negative Neurologic: Migraines Psychiatric: Depression, Bipolar, and Anxiety Gynecologic:Menopausal Constitutional:Negative CBC (last 3 years, up to 5 values) None Basic Metabolic Panel None LFT's (last 3 years, up to 5 values) None No results found for: HBA1C PT/PTT/INR (last 3 years, up to 5 values) None Last ECG Date: 02/17/2022 Normal sinus rhythm Nonspecific T wave abnormality Abnormal ECG No previous ECGs available Confirmed by OLGA MONTES ([id number]) on 02/17/2022 9:51:58 PM Last Echocardiogram: none found going back to 06/17/2017 Last StressTest: none found going back to 06/17/2017 No Chest x-ray found No results found for: SARSCOV PAST SURGICAL HISTORY: Past Surgical History: Procedure Laterality Date CHOLECYSTECTOMY UVULOPALATOPHARYNGOPLASTY N/A 02/25/2022 Procedure: UVULOPALATOPHARYNGOPLASTY; Surgeon: Yi Moreno MD; Location: PERIOPERATIVE SERVICES; Service: Otolaryngology SOCIAL HISTORY: Social History Socioeconomic History Marital status: Unknown Tobacco Use Smoking status: Former Packs/day: 1.00 Years: 5.00 Pack years: 5.00 Types: Cigarettes Smokeless tobacco: Never Substance and Sexual Activity Alcohol use: Not Currently Drug use: Never CURRENT MEDICATION LIST: Current Outpatient Medications Medication Sig Dispense Refill acetaminophen (TYLENOL) 325 mg tablet Take 2 Tablets by mouth every 4 hours as needed. 30 Tablet 0 acetaminophen (Tylenol 8 Hour) 650 MG CR tablet Take 1 Tablet by mouth every 8 hours as needed for Pain or Fever. 30 Tablet 0 senna (SENOKOT) 8.6 MG tablet Take 1 Tablet by mouth daily as needed for Constipation. 30 Tablet 0 sucralfate (CARAFATE) 1 GM tablet Take 1 Tablet by mouth 4 times daily. 40 Tablet 3 methylPREDNISolone (MEDROL DOSEPAK) 4 mg tablet Please take according to instructions on container 21 Tablet 0 atorvastatin (LIPITOR) 20 mg tablet Take 20 mg by mouth. oxybutynin (DITROPAN) 5 MG tablet Take 5 mg by mouth. OLANZapine (ZyPREXA) 5 MG tablet Take 5 mg by mouth at bedtime. OLANZapine (ZyPREXA) 5 MG tablet Take by mouth. oxybutynin (DITROPAN) 5 MG tablet Take 5 mg by mouth 3 times daily as needed. levothyroxine (SYNTHROID) 25 MCG tablet TAKE 1 TABLET BY MOUTH EVERY DAY IN THE AM ON AN EMPTY STOMACH. DO NOT EAT OR DRINK FOR 2 HOURS AFTER TAKING norethindrone (MICRONOR) 0.35 MG tablet Take by mouth. clonazePAM (KlonoPIN) 1 MG tablet Take 1 mg by mouth every 12 hours as needed. atenolol (TENORMIN) 100 mg tablet Take 100 mg by mouth daily. venlafaxine (EFFEXOR XR) 75 MG ER capsule Take 75 mg by mouth daily. venlafaxine (EFFEXOR XR) 150 MG ER capsule Take 150 mg by mouth daily. triamterene-hydrochlorothiazide (MAXZIDE) 37.5-25 MG tablet Take 1 Tablet by mouth every other day. tamsulosin (FLOMAX) 0.4 MG capsule Take 1 Capsule by mouth daily. No current facility-administered medications for this visit. CURRENT MEDICATIONS: Aspirin: No NSAIDS: No Other Antiplatelet Medication: No Anticoagulants: No Steroids: No PATIENT MEDICATION INSTRUCTIONS: On the morning of your surgery please take only the following medications, with a small sip of water: atorvastatin (LIPITOR) 20 mg tablet OLANZapine (ZyPREXA) 5 MG tablet levothyroxine (SYNTHROID) 25 MCG tablet clonazePAM (KlonoPIN) 1 MG tablet atenolol (TENORMIN) 100 mg tablet venlafaxine (EFFEXOR XR) 150 MG ER capsule Do not take any Aspirin 7 days before the surgery. Do not take any Ibuprofen products/NSAIDs 3 daysbefore surgery. May take over the counter Acetaminophen (Tylenol) as needed for pain. Do not take any Vitamin E, [place] 3, fish oils, herbal medications 7 days prior to surgery (Fish Oil, Ginseng, Ginko Biloba) DAY OF SURGERY NOTES: No solid food after midnight, the day before surgery. Per anesthesia's fasting protocol: you may have clear liquids only, the morning of your surgery. You MUST stop drinking clear liquids 3 hours before your scheduled surgery time. Needs physical on DOS If the patient has diagnosed DIONNE, they are to bring their CPAP with them on the morning of surgery,does not use CPAP Rose Brown RN Time Spent Performing this Telephone History: 30 minutes documented in this [id number] Telephone encounter Note* Telephone Encounter - Mary Dennis RN - 05/28/2022 8:15 AM EDT Patient is scheduled for DISE on 06/03/2022. Prefers to complete pre-op COVID testing closer to home. Instructed to obtain testing 48-72 hours prior to surgery and bring copy of results on day of surgery. PSE contact information provided. [id number] Miscellaneous Notes* Telephone Encounter - Mary Dennis RN - 05/28/2022 8:15 AM EDT Patient is scheduled for DISE on 06/03/2022. Prefers to complete pre-op COVID testing closer to home. Instructed to obtain testing 48-72 hours prior to surgery and bring copy of results on day of surgery. PSE contact information provided. documented in this [id number] Telephone encounter Note* Telephone Encounter - Mary Dennis RN - 05/26/2022 9:16 PM EDT Arrangements to be made for pre-op COVID testing per ENT request. [id number] Miscellaneous Notes* Telephone Encounter - Mary Dennis RN - 05/26/2022 9:16 PM EDT Arrangements to be made for pre-op COVID testing per ENT request. documented in this [id number] Note* Addendum Note - Yi Moreno MD - 05/26/2022 5:25 PM EDTAddended by: YI MORENO on: 05/26/2022 05:25 PM Modules accepted: Orders [id number] Miscellaneous Notes* Addendum Note - Yi Moreno MD - 05/26/2022 5:25 PM EDTAddended by: YI MORENO on: 05/26/2022 05:25 PM Modules accepted: Orders documented in this [id number] History of Present illness Narrative* Yi Moreno MD - 03/29/2022 2:41 PM EDT Images from the original note were not included. .Documentation: Mode: Telephone Patient Home Phone: Patient Patient Cell Preferred phone: [phone] Consent: I confirmed patient understanding of the risks and benefits of telehealth visits and obtained consent to proceed with the telehealth visit. Location of Patient: Home of patient CC: sleep disordered breathing Referred by: Dr Mcmanus HPI: History of obstructive sleep apnea, preoperative AHI 63 with O2 carlene 64% .CPAP intolerance, symptomatic. Surgical route recommended Multilevel upper airway obstruction including oropharynx and base of tongue diagnosed per sleep endoscopy Staged multilevel upper airway procedure recommended. Of note, patient is edentulous 02/25/2022-expansion sphincter pharyngoplasty Interval history: Postoperative pain mostly resolved. Lost about 10-15 lb after surgery Continues to be unable to tolerate CPAP because of significant discomfort caused by mask and she continues to be symptomatic with daytime fatigue, snoring and choking at night. Assessment and plan: History of very severe obstructive sleep apnea, status post ODALIS on 02/25/2022 to eliminate retro palatal and oropharyngeal obstruction. Continues to demonstrate sleep apnea related symptoms including choking at night - repeat sleep study and repeat sleep endoscopy - presumed residual base of tongue obstruction as previously seen on prior sleep endoscopy documented in this [id number] History of Present illness Narrative* Yi Moreno MD - 03/29/2022 2:41 PM EDT Images from the original note were not included. .Documentation: Mode: Telephone Patient Home Phone: Patient Patient Cell Preferred phone: [phone] Consent: I confirmed patient understanding of the risks and benefits of telehealth visits and obtained consent to proceed with the telehealth visit. Location of Patient: Home of patient CC: sleep disordered breathing Referred by: Dr Mcmanus HPI: History of obstructive sleep apnea, preoperative AHI 63 with O2 carlene 64% .CPAP intolerance, symptomatic. Surgical route recommended Multilevel upper airway obstruction including oropharynx and base of tongue diagnosed per sleep endoscopy Staged multilevel upper airway procedure recommended. Of note, patient is edentulous 02/25/2022-expansion sphincter pharyngoplasty Interval history: Postoperative pain mostly resolved. Lost about 10-15 lb after surgery Continues to be unable to tolerate CPAP because of significant discomfort caused by mask and she continues to be symptomatic with daytime fatigue, snoring and choking at night. Assessment and plan: History of very severe obstructive sleep apnea, status post ODALIS on 02/25/2022 to eliminate retro palatal and oropharyngeal obstruction. 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 I let her know I have it to the nurse last week and we are working on it. Patient also asking for letter to be typed up for her to return to work on 03/15. Cara- Are you able to put letter together for her and then I will email to patient. Also can you verify you have her FMLA paperwork? Patient states deadline to turn it in is 03/19/22. PH#: [phone] [id number] Miscellaneous Notes* Telephone Encounter - Tatiana Morris - 03/09/2022 1:53 PM EDT Patient calling in checking on status of [employer] FMLA paperwork. I let her know I have it to the nurse last week and we are working on it. Patient also asking for letter to be typed up for her to return to work on 03/15. Cara- Are you able to put letter together for her and then I will email to patient. Also can you verify you have her FMLA paperwork? Patient states deadline to turn it in is 03/19/22. PH#: [phone] documented in this [id number] Note* Care Plan Note - Iglesia Amin RN - 02/26/2022 2:26 PM EDT Problem: Routine Care: Goal: Patient care will be managed and maintained throughout hospital stay per unit specific routine care procedure Outcome: Adequate for Discharge Problem: Acute Pain: Goal: Ability to identify pain intensity on a pain scale and rate it consistently will be achieved and maintained Outcome: Adequate for Discharge Goal: Understanding of proper administration and use of medicines will be achieved Outcome: Adequate for Discharge Goal: Acceptable level of pain which allows the patient to achieve functional outcome goals Outcome: Adequate for Discharge Goal: Ability to identify factors that manage or decrease pain will be achieved Outcome: Adequate for Discharge Problem: Alteration in Respiratory Status: Goal: Achieve Optimal Respiratory Status with Minimal Ventilatory/Oxygen Support Outcome: Adequate for Discharge Goal: Ability to maintain a clear airway will improve Outcome: Adequate for Discharge Goal: Trach decannulation will be safely managed Outcome: Adequate for Discharge Problem: Impaired Skin Integrity: Goal: Acheive wound healing without signs and symptoms of infection Outcome: Adequate for Discharge Goal: Skin integrity will improve and/or be maintained Outcome: Adequate for Discharge Goal: Skin integrity will improve and/or be maintained- /Peds Outcome: Adequate for Discharge Problem: Alteration in Tissue Perfusion: Cardiac: Goal: Promote adequate perfusion and limit complications resulting from myocardial oxygen supply, demand and imbalance Outcome: Adequate for Discharge Problem: Risk for Infection: Goal: Risk for infection will be reduced Outcome: Adequate for Discharge Problem: Altered Nutrition: Goal: Achieve developmentally appropriate nutritional intake as clinically indicated Outcome: Adequate for Discharge Goal: Demonstrates progression toward an optimal weight Outcome: Adequate for Discharge Problem: Altered Elimination: Goal: Establishment of normal bowel function will be achieved and maintained Outcome: Adequate for Discharge Goal: Establishment of individualized bowel routine will be obtained Outcome: Adequate for Discharge Problem: VTE Prophylaxis: Goal: Will be free of DVT Outcome: Adequate for Discharge Problem: Safety: Goal: Patient will remain free of falls during hospital stay Outcome: Adequate for Discharge Goal: Free from injury during hospitalization Outcome: Adequate for Discharge Problem: Discharge Planning: Goal: Discharge needs of the adult patient will be met Outcome: Adequate for Discharge Goal: Discharge needs of the pediatric patient will be met Outcome: Adequate for Discharge Goal: Discharge needs of the patient will be met Outcome: Adequate for Discharge [id number] Miscellaneous Notes* Care Plan Note - Iglesia Amin RN - 02/26/2022 2:26 PM EDT Problem: Routine Care: Goal: Patient care will be managed and maintained throughout hospital stay per unit specific routine care procedure Outcome: Adequate for Discharge Problem: Acute Pain: Goal: Ability to identify pain intensity on a pain scale and rate it consistently will be achieved and maintained Outcome: Adequate for Discharge Goal: Understanding of proper administration and use of medicines will be achieved Outcome: Adequate for Discharge Goal: Acceptable level of pain which allows the patient to achieve functional outcome goals Outcome: Adequate for Discharge Goal: Ability to identify factors that manage or decrease pain will be achieved Outcome: Adequate for Discharge Problem: Alteration in Respiratory Status: Goal: Achieve Optimal Respiratory Status with Minimal Ventilatory/Oxygen Support Outcome: Adequate for Discharge Goal: Ability to maintain a clear airway will improve Outcome: Adequate for Discharge Goal: Trach decannulation will be safely managed Outcome: Adequate for Discharge Problem: Impaired Skin Integrity: Goal: Acheive wound healing without signs and symptoms of infection Outcome: Adequate for Discharge Goal: Skin integrity will improve and/or be maintained Outcome: Adequate for Discharge Goal: Skin integrity will improve and/or be maintained- /Peds Outcome: Adequate for Discharge Problem: Alteration in Tissue Perfusion: Cardiac: Goal: Promote adequate perfusion and limit complications resulting from myocardial oxygen supply, demand and imbalance Outcome: Adequate for Discharge Problem: Risk for Infection: Goal: Risk for infection will be reduced Outcome: Adequate for Discharge Problem: Altered Nutrition: Goal: Achieve developmentally appropriate nutritional intake as clinically indicated Outcome: Adequate for Discharge Goal: Demonstrates progression toward an optimal weight Outcome: Adequate for Discharge Problem: Altered Elimination: Goal: Establishment of normal bowel function will be achieved and maintained Outcome: Adequate for Discharge Goal: Establishment of individualized bowel routine will be obtained Outcome: Adequate for Discharge Problem: VTE Prophylaxis: Goal: Will be free of DVT Outcome: Adequate for Discharge Problem: Safety: Goal: Patient will remain free of falls during hospital stay Outcome: Adequate for Discharge Goal: Free from injury during hospitalization Outcome: Adequate for Discharge Problem: Discharge Planning: Goal: Discharge needs of the adult patient will be met Outcome: Adequate for Discharge Goal: Discharge needs of the pediatric patient will be met Outcome: Adequate for Discharge Goal: Discharge needs of the patient will be met Outcome: Adequate for Discharge * Care Plan Note - Martínez Johnson RN - 02/26/2022 12:32 AM EDT Problem: Routine Care: Goal: Patient care will be managed and maintained throughout hospital stay per unit specific routine care procedure Outcome: Progressing Problem: Acute Pain: Goal: Ability to identify pain intensity on a pain scale and rate it consistently will be achieved and maintained Outcome: Progressing Goal: Understanding of proper administration and use of medicines will be achieved Outcome: Progressing Goal: Acceptable level of pain which allows the patient to achieve functional outcome goals Outcome: Progressing Goal: Ability to identify factors that manage or decrease pain will be achieved Outcome: Progressing Problem: Alteration in Respiratory Status: Goal: Achieve Optimal Respiratory Status with Minimal Ventilatory/Oxygen Support Outcome: Progressing Goal: Ability to maintain a clear airway will improve Outcome: Progressing Goal: Trach decannulation will be safely managed Outcome: Progressing Problem: Impaired Skin Integrity: Goal: Acheive wound healing without signs and symptoms of infection Outcome: Progressing Goal: Skin integrity will improve and/or be maintained Outcome: Progressing Goal: Skin integrity will improve and/or be maintained- /Peds Outcome: Progressing Problem: Alteration in Tissue Perfusion: Cardiac: Goal: Promote adequate perfusion and limit complications resulting from myocardial oxygen supply, demand and imbalance Outcome: Progressing Problem: Risk for Infection: Goal: Risk for infection will be reduced Outcome: Progressing Problem: Altered Nutrition: Goal: Achieve developmentally appropriate nutritional intake as clinically indicated Outcome: Progressing Goal: Demonstrates progression toward an optimal weight Outcome: Progressing Problem: Altered Elimination: Goal: Establishment of normal bowel function will be achieved and maintained Outcome: Progressing Goal: Establishment of individualized bowel routine will be obtained Outcome: Progressing Problem: VTE Prophylaxis: Goal: Will be free of DVT Outcome: Progressing Problem: Safety: Goal: Patient will remain free of falls during hospital stay Outcome: Progressing Goal: Free from injury during hospitalization Outcome: Progressing Problem: Discharge Planning: Goal: Discharge needs of the adult patient will be met Outcome: Progressing Goal: Discharge needs of the pediatric patient will be met Outcome: Progressing Goal: Discharge needs of the patient will be met Outcome: Progressing * Care Plan Note - Ashvin Mism - 02/25/2022 7:10 PM EDT Problem: Routine Care: Goal: Patient care will be managed and maintained throughout hospital stay per unit specific routine care procedure Outcome: Progressing Problem: Acute Pain: Goal: Ability to identify pain intensity on a pain scale and rate it consistently will be achieved and maintained Outcome: Progressing Goal: Understanding of proper administration and use of medicines will be achieved Outcome: Progressing Goal: Acceptable level of pain which allows the patient to achieve functional outcome goals Outcome: Progressing Goal: Ability to identify factors that manage or decrease pain will be achieved Outcome: Progressing Problem: Alteration in Respiratory Status: Goal: Achieve Optimal Respiratory Status with Minimal Ventilatory/Oxygen Support Outcome: Progressing Goal: Ability to maintain a clear airway will improve Outcome: Progressing Goal: Trach decannulation will be safely managed Outcome: Progressing Problem: Impaired Skin Integrity: Goal: Acheive wound healing without signs and symptoms of infection Outcome: Progressing Goal: Skin integrity will improve and/or be maintained Outcome: Progressing Goal: Skin integrity will improve and/or be maintained- /Peds Outcome: Progressing Problem: Alteration in Tissue Perfusion: Cardiac: Goal: Promote adequate perfusion and limit complications resulting from myocardial oxygen supply, demand and imbalance Outcome: Progressing Problem: Risk for Infection: Goal: Risk for infection will be reduced Outcome: Progressing Problem: Altered Nutrition: Goal: Achieve developmentally appropriate nutritional intake as clinically indicated Outcome: Progressing Goal: Demonstrates progression toward an optimal weight Outcome: Progressing Problem: Altered Elimination: Goal: Establishment of normal bowel function will be achieved and maintained Outcome: Progressing Goal: Establishment of individualized bowel routine will be obtained Outcome: Progressing Problem: VTE Prophylaxis: Goal: Will be free of DVT Outcome: Progressing Problem: Safety: Goal: Patient will remain free of falls during hospital stay Outcome: Progressing Goal: Free from injury during hospitalization Outcome: Progressing Problem: Discharge Planning: Goal: Discharge needs of the adult patient will be met Outcome: Progressing Goal: Discharge needs of the pediatric patient will be met Outcome: Progressing Goal: Discharge needs of the patient will be met Outcome: Progressing * Brief Operative Note - Yi Moreno MD - 02/25/2022 10:00 AM EDT Brief Operative Note MAIN OR 11 Isabelle Hewitt 46 year old female Surgical Contact Serial Number: [id number] Preoperative Diagnosis: DIONNE (obstructive sleep apnea) [G47.33] Postoperative Diagnosis: * DIONNE (obstructive sleep apnea) [G47.33] Procedures: Surgical CPTs Procedures PALATOPHARYNGOPLASTY No data filed Surgeon(s): Surgeon(s): Yi Moreno MD Staff: Scrub: Wiley Álvarez Carton Filling Machine Operator Nurse: Mariaa Briseno; Dulce Allred; Babs Wells RN Canine Enforcement Officer: Yi Piña MD; Unruly Biggs MD Anesthesia: Consult Anesthesiologist: Maite Youssef MD CAA: Mariaa Meneses CAA RUBBER MIXER: Cari Hurtado APRN-RUBBER MIXER Medicaid Analyst: Carol Barrera MD Anesthesia Student: Prema Norris Specimen(s): ID Type Source Tests Collected by Time Destination 1 : Tissue Tonsil, Left SPECIMEN FOR SURGICAL PATH Yi Moreno MD 02/25/2022 1017 2 : Tissue Tonsil, Right SPECIMEN FOR SURGICAL PATH Yi Moreno MD 02/25/2022 1017 Estimated Blood Loss: less than 5 cc Lines/Drains: * No LDAs found * Findings: Normal Complications: None Status at end of surgery: Stable Activity: Ad Beata and Surgical wound class: No wound. Patient Class: Planned Extended Recovery. Is this a patient scheduled as an outpatient that needs to be admitted as an inpatient? No was present in the OR for the critical portion of the procedure and procedure sign-out. Signed by Yi Moreno MD 02/25/2022 10:40 AM * OP Note - Yi Moreno MD - 02/25/2022 10:00 AM EDT [id number] Isabelle Xenia 1975 @PATFNAME@ @PATIENTLASTNAME@ [id number] Preoperative diagnosis: 1. Obstructive sleep apnea 2. Pharyngeal stenosis Postoperative diagnosis: Same Procedure: 1. Expansion sphincter pharyngo-plasty 2. Tonsillectomy Surgeon: Yi Moreno Asst. Surgeons: Arturo biggs Anesthesia: Gen. Indication: Patient with obstructive sleep apnea and CPAP intolerance, who was found to have a oralpharyngeal/retro-palatal obstruction. Above procedure recommended to improve this obstruction Findings: +3 Tonsils with narrowed oropharyngeal airway. Procedure Mouth gag was inserted. Oropharynx and palate exposed. Tonsils if present were removed by performing a capsular excision using a Bovie as well as a suction cautery for hemostasis as needed with very minimal bleeding occurring. The velopharyngeal muscle on the right side was now dissected out by releasing it inferiorly and the retro-dissecting it proximally towards the soft palate using cautery but only sharp scissors alongthe medial aspect to release it from the mucosa. Careful dissection was carried up superiorly untilthe ideal pivot point of the muscle flap was identified that led to a expansion of the oral pharyngeal airway with anterior movement of the soft palate. The elevated muscle flap was now rotated and tunneled through the lateral palatal area where it was secured to the sphenomandibular ligament with a 2-0 Vicryl suture. The tunnel had been created by performing a Bovie incision lateral to the ligament and by using a tonsil instrument from lateral and medial direction. The identical procedure was now performed on the contralateral left side by releasing the muscle flap and pexing it to the sphenomandibular ligament. At this point the oropharyngeal segment was markedly expanded and stabilized. The palate appeared to be still somewhat elongated and there was persistent concern for anterior toposterior obstruction. I therefore decided to make 2 cuts, using the Bovie instrument, para old to the uvula base which were extended into the palate by about 5 mm. A small wedge of tissue including glandular elements was now excised next to the uvula base and the incision closed with 3-0 chromic sutures. This led to further enlargement of the retropalatal airway and anterior to posterior direction. At this point we irrigated the oral cavity with saline and no bleeding was noted.. The patient was then extubated and taken back to recovery in stable condition. * Anesthesia Attestation - Maite Youssef MD - 02/25/2022 8:52 AM EDT Anesthesia Attestation ATTESTATION OF INFORMED CONSENT FOR ANESTHESIA Anesthesia options were discussed with the patient and/or legal dermatology sales representative. The risks, benefits and alternatives were reviewed. Questions regarding anesthesia were answered. Patient and/or legal dermatology sales representative knows such anesthetics and procedures may be performed by Resident physicians, Certified Anesthesiologist Assistants, or Certified Nurse Anesthetists under the supervision of a physician. The patient /or the patient s legal representativeagree with the plan for anesthesia. * Blood Attestation - Maite Youssef MD - 02/25/2022 8:52 AM EDT Blood Attestation ATTESTATION OF INFORMED CONSENT FOR BLOOD The transfusion of blood and/or blood components were discussed with the patient and/or legal dermatology sales representative. The risks, benefits and alternatives were reviewed. Questions regarding blood transfusions were answered. The patient /or the patient s legal dermatology sales representative agree with the plan for transfusion of blood and/or blood components. documented in this [id number] NoteOTOLARYNGOLOGY HEAD AND NECK SURGERY DAILY PROGRESS NOTE Subjective: Pt seen and examined by the ENT team on AM rounds. Pain tolerable overnight. Patient had nightmare and inadvertently pulled pIV. Over 1L PO intake Objective: BP 109/77 (BP Location: left arm) Pulse 85 Temp 98.7 ???F (37.1 ???C) (Oral) Resp 16 Ht 5' 2 (1.575 m) Wt 180 lb (81.6 kg) LMP (LMP Unknown) SpO2 95% BMI 32.92 kg/m??? Gen: NAD, AOx3 Head: NCAT Eyes: Sclera normal Ears: Normal external ears Nose: Nose midline Oral Cavity: MMM. Appropriate mucosal wounds and incisions with granulation tissue/scabbing intact. No evidence of bleeding. Skin: No skin lesions or changes Intake/Output Summary (Last 24 hours) at 02/26/2022 0652 Last data filed at 02/26/2022 0523 Gross per 24 hour Intake 3062.5 ml Output 970 ml Net 2092.5 ml Labs: CBC/PT/INR None Basic Metabolic Panel None Assessment and Plan: Isabelle Hewitt is a 46 year old female who underwent UPPP on 02/25 w/ Dr. Moreno. Intra and perioperative course uncomplicated. Patient transferred to [facility] from PACU. Mild anxiety overnight. No desaturations and pain overall well controlled. Patient on 2L NC when seen in the AM - Wean nc as tolerated - Monitor PO - Restart home meds - Discharge home today as appropriate [id number]* Care Plan Note - Martínez Johnson RN - 02/26/2022 12:32 AM EDT Problem: Routine Care: Goal: Patient care will be managed and maintained throughout hospital stay per unit specific routine care procedure Outcome: Progressing Problem: Acute Pain: Goal: Ability to identify pain intensity on a pain scale and rate it consistently will be achieved and maintained Outcome: Progressing Goal: Understanding of proper administration and use of medicines will be achieved Outcome: Progressing Goal: Acceptable level of pain which allows the patient to achieve functional outcome goals Outcome: Progressing Goal: Ability to identify factors that manage or decrease pain will be achieved Outcome: Progressing Problem: Alteration in Respiratory Status: Goal: Achieve Optimal Respiratory Status with Minimal Ventilatory/Oxygen Support Outcome: Progressing Goal: Ability to maintain a clear airway will improve Outcome: Progressing Goal: Trach decannulation will be safely managed Outcome: Progressing Problem: Impaired Skin Integrity: Goal: Acheive wound healing without signs and symptoms of infection Outcome: Progressing Goal: Skin integrity will improve and/or be maintained Outcome: Progressing Goal: Skin integrity will improve and/or be maintained- /Peds Outcome: Progressing Problem: Alteration in Tissue Perfusion: Cardiac: Goal: Promote adequate perfusion and limit complications resulting from myocardial oxygen supply, demand and imbalance Outcome: Progressing Problem: Risk for Infection: Goal: Risk for infection will be reduced Outcome: Progressing Problem: Altered Nutrition: Goal: Achieve developmentally appropriate nutritional intake as clinically indicated Outcome: Progressing Goal: Demonstrates progression toward an optimal weight Outcome: Progressing Problem: Altered Elimination: Goal: Establishment of normal bowel function will be achieved and maintained Outcome: Progressing Goal: Establishment of individualized bowel routine will be obtained Outcome: Progressing Problem: VTE Prophylaxis: Goal: Will be free of DVT Outcome: Progressing Problem: Safety: Goal: Patient will remain free of falls during hospital stay Outcome: Progressing Goal: Free from injury during hospitalization Outcome: Progressing Problem: Discharge Planning: Goal: Discharge needs of the adult patient will be met Outcome: Progressing Goal: Discharge needs of the pediatric patient will be met Outcome: Progressing Goal: Discharge needs of the patient will be met Outcome: Progressing [id number] NoteDISCHARGE SUMMARY [address] [id number] Isabelle Hewitt Date of : 1975 46 year oldfemale Attending Yi Moreno MD Date of Admission 02/25/2022 Date of Discharge 02/26/2022 Final Diagnosis: DIONNE DIAGNOSES: Hospital Problems as of 02/26/2022 * (Principal) DIONNE (obstructive sleep apnea) Pharyngeal stensosis PROCEDURES: 1.Expansion sphincter pharyngo-plasty 2. Tonsillectomy DISCHARGE MEDICATIONS: Medication List START taking these medications acetaminophen 650 MG CR tablet Commonly known as: Tylenol 8 Hour Take 1 Tablet by mouth every 8 hours as needed for Pain or Fever. methylPREDNISolone 4 mg tablet Commonly known as: MEDROL DOSEPAK Please take according to instructions on container senna 8.6 MG tablet Commonly known as: SENOKOT Take 1 Tablet by mouth daily as needed for Constipation. sucralfate 1 GM tablet Commonly known as: CARAFATE Take 1 Tablet by mouth 4 times daily. ASK your doctor about these medications atenolol 100 mg tablet Commonly known as: TENORMIN atorvastatin 20 mg tablet Commonly known as: LIPITOR clonazePAM 1 MG tablet Commonly known as: KlonoPIN levothyroxine 25 MCG tablet Commonly known as: SYNTHROID norethindrone 0.35 MG tablet Commonly known as: MICRONOR * OLANZapine 5 MG tablet Commonly known as: ZyPREXA * OLANZapine 5 MG tablet Commonly known as: ZyPREXA * oxybutynin 5 MG tablet Commonly known as: DITROPAN * oxybutynin 5 MG tablet Commonly known as: DITROPAN tamsulosin 0.4 MG capsule Commonly known as: FLOMAX * triamterene-hydrochlorothiazide 37.5-25 MG tablet Commonly known as: MAXZIDE * triamterene-hydrochlorothiazide 37.5-25 MG tablet Commonly known as: MAXZIDE * venlafaxine 75 MG ER capsule Commonly known as: EFFEXOR XR * venlafaxine 150 MG ER capsule Commonly known as: EFFEXOR XR * This list has 8 medication(s) that are the same as other medications prescribed for you. Read the directions carefully, and ask your doctor or other care provider to review them with you. Where to Get Your Medications These medications were sent to [id number] - [place], [place] - [address] [place] [address] acetaminophen 650 MG CR tablet methylPREDNISolone 4 mg tablet senna 8.6 MG tablet sucralfate 1 GM tablet REASON FOR HOSPITALIZATION: DIONNE requiring UPPP HOSPITAL COURSE: Isabelle Hewitt is a 46 year old female with a history of DIONNE who underwent UPPP with Dr. Moreno on 02/25. The patient tolerated the procedure well, and postoperative course was uncomplicated. Pain was controlled with oral pain medication, and diet was restarted. On day of discharge, the patient was afebrile and hemodynamically stable, tolerating a soft diet with pain controlled on oral pain medication, ambulating well, and voiding spontaneously. The patient was seen and examined on the day of discharge with the following findings: BP 109/77 (BP Location: left arm) Pulse 85 Temp 98.7 ???F (37.1 ???C) (Oral) Resp 16 Ht 5' 2 (1.575 m) Wt 180 lb (81.6 kg) LMP (LMP Unknown) SpO2 95% BMI 32.92 kg/m??? Gen: NAD, AOx3 Head: NCAT Eyes: Sclera normal Ears: Normal external ears Nose: Nose midline Oral Cavity: MMM. Appropriate mucosal wounds and incisions with granulation tissue/scabbing intact. No evidence of bleeding. Skin: No skin lesions or changes Given the excellent progress, the patient was determined stable for discharge. Unruly Biggs MD PGY-2 Otolaryngology - Head and Neck Surgery Teaching Physician Note: I am signing this discharge summary on behalf of Dr Moreno in his absence to expedite, as he will not return for 10 days. I reviewed the resident's documentation and discussed the patient with the resident. I agree with the resident's medical decision making as documented in the resident's note. [facility] Discharge instructions* Discharge Instructions* Unruly Biggs MD - 02/25/2022 8:18 PM EDT Images from the original note were not included. DEPARTMENT OF OTOLARYNGOLOGY (ENT) DISCHARGE INSTRUCTIONS Inpatient Surgery C O N F I D E N T I A L I N F O R M A T I O N The following is a brief overview of your surgery. Some of the information contained on this summary may be confidential. This information should be kept in your records and should be shared with your regular doctor. Isabelle Hewitt [facility] [employer] [facility] [address] Phone numbers Date of Procedure: 02/25/22 Physicians: Dr. Yi Moreno (ENT) Admission Date: 02/25/2022 7:49 AM Discharge Date: No discharge date for patient encounter. Disposition: Home Home Care Agency: none Procedure that was performed: Uvulopalatopharyngoplasty (UPPP) Pending results: No pathology specimen was sent Call [phone] during regular daytime business hours (8:00 am - 5:00 pm) and after 5:00 pm call [phone] and ask to speak with the ENT Resident Director Telecommunications with any questions or concerns. If it is a life-threatening situation, proceed to the nearest emergency department. Your Follow-up Appointment(s) Future Appointments Date Time Provider Department Center 03/29/2022 3:15 PM Yi Moreno MD [facility] Location: [facility] ([place]) [address] [place] [address] ([phone]) Thank you for the opportunity to care for you. Your health and healing are very important to us. [facility] committed to your recovery and continued well-being, and we hope that we made you feel as comfortable as possible. What to Expect During your Recovery and Home Care Activity and Recovery No heavy lifting, weight bearing as tolerated, no driving until cleared by your doctor. Do not submerge incision(s) in standing water until cleared by your doctor (no tub bathing, swimming, or hot tubs). Specific Discharge Instructions: Diet: You must maintain a soft diet for 2 weeks. Medicines Your new medication(s): Oxycodone, senna, tylenol, peridex Your regular medications can be resumed today. Pain Control Unfortunately, you may experience pain after your procedure. Adequate management should include alternative measures to help ease your pain and can include the use of ice/cool packs, acetaminophen (Tylenol) or Oxycodone can be taken as prescribed as needed for breakthrough pain. Oxycodone is a narcotic and can become addictive and may also induce constipation. Please take stool softeners when taking this medication to prevent constipation. If you are not given a prescriptionfor a stool softener, they may be purchased thdh-qif-wdqrzxj at any local drugstore. Signs of Infection Signs of infection can include fever, excessive swelling, heat, drainage, redness, or severe pain. If you see any of these occur, please contact your doctor's office at [phone]. Any fever higherthan 100.4, especially if associated with an ill feeling, abdominal pain, chills, or nausea should be reported to your surgeon. If you have sutures that you can see outside of the skin or glendy: Any non-dissolvable sutures or glendy will be removed in our clinic 10-14 days after the date of surgery. Do not remove the glendy/sutures on your own. Return sooner or call if incision(s) or the surrounding area have increased in swelling, pain, warmth, redness, or drainage that is thick, yellowand/or green. Additional Instructions: Patient Education Opioids - Know the Risks What are opioids? Prescription opioids can be used to help relieve vuvqcopg-rj-xzeyue pain and are often prescribed following a surgery or injury, or for certain health conditions. These medications can be an important part of treatment, but also come with serious risks. It is important to work with your health care provider to make sure you are getting the safest, most effective care. Common opioids include: Codeine Hydromorphone Morphine Fentanyl Meperidine Oxycodone Hydrocodone Methadone What are the risks and side effects? Prescription opioids carry serious risks of addiction and overdose, especially with prolonged use. An opioid overdose, often marked by slowed breathing, can cause sudden . The use of prescription opioids can have a number of side effects as well, even when taken as directed. What puts me at risk? History of drug misuse, SAM or overdose Family history of drug misuse, SAM or overdose Mental health disorders Sleep apnea Age 16-65 Home life (stress level) Environmental exposure Proper Storage and Disposal of Prescription Drugs Store your narcotics safely. Keep them out of reach of children and others in your home. Drop unused or prescription drugs at your local police station. Do not share your narcotic medicine with anyone. Visit RXdrugdropbox.org for locations. DO NOT keep extra or prescription drugs at home. DO NOT dispose of medication in the toilet or sink drain. Important Advisory When Using Pain Medications Do not use strong pain medications like Tylenol#3 (codeine/acetaminophen), Percocet (oxycodone/acetaminophen), Vicodin (hydrocodone/acetaminophen) or muscle relaxants when driving, caring for children, using tools, working or while doing any activity that may be dangerous. Danger is increased when pain medications are mixed with alcohol. When your pain begins to lessen, talk with the health care provider you see for pain about switching to another kind of pain reliever. 24 Hour Hot Line Telephone Numbers/ Information If you are having an Emergency Call 911 Suicide or Mental Health Mobile Crisis Help Line [phone] Narcotics Anonymous Center for Disease Control and Prevention www.cdc.gov 211 First Call For Help (14/03) 2-1-1 from phone OR [employer] Prevention Each year, 1 in every 3 adults over the age of 65 are treated for fall-related injuries. The risk of falling increases with each decade of life. The good news is, many falls are preventable. Here are some fall prevention tips: Exercise can increase strength and improve balance, making falls much less likely. For more informati on visit: http://[facility].org/services/aptb-pfekec-xf-your-health/a-matte b-gj-fjtdirk/ Some medications or combinations of medications can lead to side effects that cause falls. Have a doctor or pharmacist review all medications to help reduce the chance of risky side effects. Poor vision can lead to falls. Have your eyes checked every year. Ensure that your glasses are the correct strength. Eliminate hazards in your home by completing this home safety checklist. Remove things you can trip over from stairs and places you walk Install handrails and lights on all staircases. Remove small throw rugs or use double-sided tape to keep rugs from slipping. Keep items you use often in cabinets you can reach easily without using a step stool. Put grab bars inside and next to the tub or shower and next to your toilet.Use non-slip mats in thebathtub and on shower floors. Improve the lighting in your home. Hang lightweight curtains or shades to reduce glare. Wear shoes both inside and outside the house. Avoid going barefoot or wearing slippers. To lower the risk of hip fractures: Get adequate calcium and vitamin D, from food and/or supplements. Do weight bearing exercise. Get screened for osteoporosis and treated if needed Patient Education Exercise The Basics Written by the doctors and editors at [facility] What are the benefits of exercise? -- Exercise has many benefits. It can: Burn calories, which helps people control their weight Help control blood sugar levels in people with diabetes Lower blood pressure, especially in people with high blood pressure Lower stress and help with depression Keep bones strong, so they don't get thin and break easily Lower the chance of dying from heart disease What are the main types of exercise? -- There are 3 main types of exercise. They are: Aerobic exercise - Aerobic exercise raises a person's heart rate. Examples of aerobic exercise are walking, running, or swimming. Resistance training - Resistance training helps make your muscles stronger. People can do this typeof exercise using weights, exercise bands, or weight machines. Stretching - Stretching exercises help your muscles and joints move more easily. It's important to have all 3 types of exercise in your exercise program. That way, your body, muscles, and joints can be as healthy as possible. Should I talk to my doctor or nurse before I start exercising? -- If you have not exercised before or have not exercised in a long time, talk with your doctor or nurse before you start a very active exercise program. If you have heart disease or risk factors for heart disease (like high blood pressure or diabetes),your doctor or nurse might recommend that you have an exercise test before starting an exercise program. When you start an exercise program, start slowly. For example, do the exercise at a slow pace or for a few minutes only. Over time, you can exercise faster and for longer periods of time. What should I do when I exercise? -- Each time you exercise, you should: Warm up - Warming up can help keep you from hurting your muscles when you exercise. To warm up, do a light aerobic exercise (such as walking slowly) or stretch for 5 to 10 minutes. Work out - During a workout, you can walk fast, swim, run, or use an exercise machine, for example.You should also stretch all of your joints, including your neck, shoulders, back, hips, and knees. At least 2 times a week, you can add resistance training exercises to your workout. Cool down - Cooling down helps keep you from feeling dizzy after you exercise and helps prevent muscle cramps. To cool down, you can stretch or do a light aerobic exercise for 5 minutes. How often should I exercise? -- Doctors recommend that people exercise at least 30 minutes a day, on 5 or more days of the week. If you can't exercise for 30 minutes straight, try to exercise for 10 minutes at a time, 3 or 4 times a day. Even exercising for shorter amounts of time can be good for you, especially if it means spending less time sitting. When should I call my doctor or nurse? -- If you have any of the following symptoms when you exercise, stop exercising and call your doctor or nurse right away: Pain or pressure in your chest, arms, throat, jaw, or back Nausea or vomiting Feeling like your heart is fluttering or racing very fast Feeling dizzy or faint What if I don't have time to exercise? -- Many people have very busy lives and might not think thatthey have time to exercise. But it's important to try to find time to exercise, even if you are tired or work a lot. Exercise can increase your energy level, which might even help you get more work done. There are many ways that you can be more active. For example, you can: Take the stairs instead of the elevator Park in a parking space that is farther away from the door Take a longer route when you walk from one place to another Spending a lot of time sitting still - for example, watching television or working on the computer - can be bad for your health. Try to get up and move around whenever you can. Even small amounts of movement, like short walks or doing slots manager, can help improve your health. What else should I do when I exercise? -- To exercise safely and avoid problems, be sure to: Drink fluids during and after exercising (but avoid energy drinks with a lot of caffeine) Avoid exercising outside if it is too hot or cold Wear layers of clothes, so that you can take them off if you get too hot Wear shoes that fit well and support your feet All topics are updated as new evidence becomes available and our peer review process is complete. This topic retrieved from [employer] on: Mar 19, 2020. Topic 01343 Version 20.0 Release: 28.4.6 - C28.294 2019 [employer]. and/or its affiliates. All rights reserved. Consumer Information Use and Disclaimer This information is not specific medical advice and does not replace information you receive from your health care provider. This is only a brief summary of general information. It does NOT include all information about conditions, illnesses, injuries, tests, procedures, treatments, therapies, discharge instructions or life-style choices that may apply to you. You must talk with your health care provider for complete information about your health and treatment options. This information should not be used to decide whether or not to accept your health care provider's advice, instructions or recommendations. Only your health care provider has the knowledge and training to provide advice that is right for you.The use of [employer] content is governed by the [employer] Terms of Use. 2020 [employer]. All rights reserved. Copyright 2020 [employer]. and/or its affiliates. All rights reserved. Reviewed April 2020 documented in this [id number] Note* Care Plan Note - Ashvin Mims - 02/25/2022 7:10 PM EDT Problem: Routine Care: Goal: Patient care will be managed and maintained throughout hospital stay per unit specific routine care procedure Outcome: Progressing Problem: Acute Pain: Goal: Ability to identify pain intensity on a pain scale and rate it consistently will be achieved and maintained Outcome: Progressing Goal: Understanding of proper administration and use of medicines will be achieved Outcome: Progressing Goal: Acceptable level of pain which allows the patient to achieve functional outcome goals Outcome: Progressing Goal: Ability to identify factors that manage or decrease pain will be achieved Outcome: Progressing Problem: Alteration in Respiratory Status: Goal: Achieve Optimal Respiratory Status with Minimal Ventilatory/Oxygen Support Outcome: Progressing Goal: Ability to maintain a clear airway will improve Outcome: Progressing Goal: Trach decannulation will be safely managed Outcome: Progressing Problem: Impaired Skin Integrity: Goal: Acheive wound healing without signs and symptoms of infection Outcome: Progressing Goal: Skin integrity will improve and/or be maintained Outcome: Progressing Goal: Skin integrity will improve and/or be maintained- /Peds Outcome: Progressing Problem: Alteration in Tissue Perfusion: Cardiac: Goal: Promote adequate perfusion and limit complications resulting from myocardial oxygen supply, demand and imbalance Outcome: Progressing Problem: Risk for Infection: Goal: Risk for infection will be reduced Outcome: Progressing Problem: Altered Nutrition: Goal: Achieve developmentally appropriate nutritional intake as clinically indicated Outcome: Progressing Goal: Demonstrates progression toward an optimal weight Outcome: Progressing Problem: Altered Elimination: Goal: Establishment of normal bowel function will be achieved and maintained Outcome: Progressing Goal: Establishment of individualized bowel routine will be obtained Outcome: Progressing Problem: VTE Prophylaxis: Goal: Will be free of DVT Outcome: Progressing Problem: Safety: Goal: Patient will remain free of falls during hospital stay Outcome: Progressing Goal: Free from injury during hospitalization Outcome: Progressing Problem: Discharge Planning: Goal: Discharge needs of the adult patient will be met Outcome: Progressing Goal: Discharge needs of the pediatric patient will be met Outcome: Progressing Goal: Discharge needs of the patient will be met Outcome: Progressing [id number] NoteAddendum created 02/25/22 1219 by Mariaa Meneses CAA Intraprocedure Staff editedThe [facility]07-07-[facility] History of Present illness Narrative* Ailyn Son RN - 02/25/2022 11:13 AM EDT No excessive swallowing. No nausea. No active bleeding in oral cavity. Small amount blood tinged sputum. Attempted to update family in [place], No one here at present time 1300 ENT resident at bedside and assessed pt. Verified that pt may go to regular nursing floor and not SSD. Pt resting comfortably. 1455 Pt wants to get up to chair, States she is feeling antsy . Assisted up to chair, Gait steady.Skin with no areas of redness. documented in this [id number] NoteSurgical Attestation: I have reviewed the patient's History and Physical Examination. I have personally seen and evaluated the patient, repeating ulloa portions. There is no significant interval change. Surgery is still indicated. Yes Consent reviewed and signed by patient/family: Yes Operative site verified and marked: Yes Yi Moreno MD 02/25/2022 8:56 AMThe [facility]07-07-[facility] Note* Brief Operative Note - Yi Moreno MD - 02/25/2022 10:00 AM EDT Brief Operative Note MAIN OR 11 Isabelle Hewitt 46 year old female Surgical Contact Serial Number: [id number] Preoperative Diagnosis: DIONNE (obstructive sleep apnea) [G47.33] Postoperative Diagnosis: * DIONNE (obstructive sleep apnea) [G47.33] Procedures: Surgical CPTs Procedures PALATOPHARYNGOPLASTY No data filed Surgeon(s): Surgeon(s): Yi Moreno MD Staff: Scrub: Wiley Álvarez Carton Filling Machine Operator Nurse: Mariaa Briseno; Dulce Allred; Babs Wells RN Canine Enforcement Officer: Yi Piña MD; Unruly Biggs MD Anesthesia: Consult Anesthesiologist: Maite Youssef MD CAA: Mariaa Meneses CAA RUBBER MIXER: Cari Hurtado APRN-RUBBER MIXER Medicaid Analyst: Carol Barrera MD Anesthesia Student: Prema Norris Specimen(s): ID Type Source Tests Collected by Time Destination 1 : Tissue Tonsil, Left SPECIMEN FOR SURGICAL PATH Yi Moreno MD 02/25/2022 1017 2 : Tissue Tonsil, Right SPECIMEN FOR SURGICAL PATH Yi Moreno MD 02/25/2022 1017 Estimated Blood Loss: less than 5 cc Lines/Drains: * No LDAs found * Findings: Normal Complications: None Status at end of surgery: Stable Activity: Ad Beata and Surgical wound class: No wound. Patient Class: Planned Extended Recovery. Is this a patient scheduled as an outpatient that needs to be admitted as an inpatient? No was present in the OR for the critical portion of the procedure and procedure sign-out. Signed by Yi Moreno MD 02/25/2022 10:40 AM [id number] Note* OP Note - Yi Moreno MD - 02/25/2022 10:00 AM EDT [id number] Isabelle Xenia 1975 @PATFNAME@ @PATIENTLASTNAME@ [id number] Preoperative diagnosis: 1. Obstructive sleep apnea 2. Pharyngeal stenosis Postoperative diagnosis: Same Procedure: 1. Expansion sphincter pharyngo-plasty 2. Tonsillectomy Surgeon: Yi Moreno Asst. Surgeons: Arturo biggs Anesthesia: Gen. Indication: Patient with obstructive sleep apnea and CPAP intolerance, who was found to have a oralpharyngeal/retro-palatal obstruction. Above procedure recommended to improve this obstruction Findings: +3 Tonsils with narrowed oropharyngeal airway. Procedure Mouth gag was inserted. Oropharynx and palate exposed. Tonsils if present were removed by performing a capsular excision using a Bovie as well as a suction cautery for hemostasis as needed with very minimal bleeding occurring. The velopharyngeal muscle on the right side was now dissected out by releasing it inferiorly and the retro-dissecting it proximally towards the soft palate using cautery but only sharp scissors alongthe medial aspect to release it from the mucosa. Careful dissection was carried up superiorly untilthe ideal pivot point of the muscle flap was identified that led to a expansion of the oral pharyngeal airway with anterior movement of the soft palate. The elevated muscle flap was now rotated and tunneled through the lateral palatal area where it was secured to the sphenomandibular ligament with a 2-0 Vicryl suture. The tunnel had been created by performing a Bovie incision lateral to the ligament and by using a tonsil instrument from lateral and medial direction. The identical procedure was now performed on the contralateral left side by releasing the muscle flap and pexing it to the sphenomandibular ligament. At this point the oropharyngeal segment was markedly expanded and stabilized. The palate appeared to be still somewhat elongated and there was persistent concern for anterior toposterior obstruction. I therefore decided to make 2 cuts, using the Bovie instrument, para old to the uvula base which were extended into the palate by about 5 mm. A small wedge of tissue including glandular elements was now excised next to the uvula base and the incision closed with 3-0 chromic sutures. This led to further enlargement of the retropalatal airway and anterior to posterior direction. At this point we irrigated the oral cavity with saline and no bleeding was noted.. The patient was then extubated and taken back to recovery in stable condition. [id number] History and physical note* Yi Moreno MD - 02/25/2022 8:56 AM EDT Surgical Attestation: I have reviewed the patient's History and Physical Examination. I have personally seen and evaluated the patient, repeating ulloa portions. There is no significant interval change. Surgery is still indicated. Yes Consent reviewed and signed by patient/family: Yes Operative site verified and marked: Yes Yi Moreno MD 02/25/2022 8:56 AM [id number] History and physical note* Yi Moreno MD - 02/25/2022 8:56 AM EDT Surgical Attestation: I have reviewed the patient's History and Physical Examination. I have personally seen and evaluated the patient, repeating ulloa portions. There is no significant interval change. Surgery is still indicated. Yes Consent reviewed and signed by patient/family: Yes Operative site verified and marked: Yes Yi Moreno MD 02/25/2022 8:56 AM documented in this [id number] Note* Anesthesia Attestation - Maite Youssef MD - 02/25/2022 8:52 AM EDT Anesthesia Attestation ATTESTATION OF INFORMED CONSENT FOR ANESTHESIA Anesthesia options were discussed with the patient and/or legal dermatology sales representative. The risks, benefits and alternatives were reviewed. Questions regarding anesthesia were answered. Patient and/or legal dermatology sales representative knows such anesthetics and procedures may be performed by Resident physicians, Certified Anesthesiologist Assistants, or Certified Nurse Anesthetists under the supervision of a physician. The patient /or the patient s legal representativeagree with the plan for anesthesia. [facility] Work Phone: [phone]) 928-813907-07-2022 Note* Blood Attestation - Maite Youssef MD - 02/25/2022 8:52 AM EDT Blood Attestation ATTESTATION OF INFORMED CONSENT FOR BLOOD The transfusion of blood and/or blood components were discussed with the patient and/or legal dermatology sales representative. The risks, benefits and alternatives were reviewed. Questions regarding blood transfusions were answered. The patient /or the patient s legal dermatology sales representative agree with the plan for transfusion of blood and/or blood components. [id number] Telephone encounter Note* Telephone Encounter - Mary Dennis RN - 02/24/2022 7:19 AM EDT PSE received pre-op COVID test results - NOT DETECTED on 02/23/2022. Document scanned into [employer]. [id number] Miscellaneous Notes* Telephone Encounter - Mary Dennis RN - 02/24/2022 7:19 AM EDT PSE received pre-op COVID test results - NOT DETECTED on 02/23/2022. Document scanned into [employer]. documented in this [id number] Telephone encounter Note* Telephone Encounter - Mary Dennis RN - 02/17/2022 2:52 PM EDT Patient is scheduled for surgery 02/25/2022. Prefers to complete pre-op COVID testing closer to home.Instructed to obtain testing 48-72 hours prior to surgery and bring copy of results on day of surgery. PSE contact information provided, order faxed to [facility] per patient request. [id number] Miscellaneous Notes* Telephone Encounter - Mary Dennis RN - 02/17/2022 2:52 PM EDT Patient is scheduled for surgery 02/25/2022. Prefers to complete pre-op COVID testing closer to home.Instructed to obtain testing 48-72 hours prior to surgery and bring copy of results on day of surgery. PSE contact information provided, order faxed to [facility] per patient request. documented in this [id number] Instructions* Patient Instructions* Pierce Ramos APRN-CNP - 02/16/2022 2:21 PM EDT On the morning of your surgery please take only the following medications, with a small sip of water: atorvastatin (LIPITOR) 20 mg tablet levothyroxine (SYNTHROID) 25 MCG tablet norethindrone (MICRONOR) 0.35 MG tablet clonazePAM (KlonoPIN) 1 MG tablet atenolol (TENORMIN) 100 mg tablet venlafaxine (EFFEXOR XR) 75 MG ER capsule venlafaxine (EFFEXOR XR) 150 MG ER capsule Do not take any Aspirin after 02/17. Do not take any Ibuprofen, Aleve, Advil, or Motrin or any other NSAIDS after 02/21. May take over the counter Acetaminophen (Tylenol) as needed for pain Please hold all Vitamin E, [place] 3, fish oil and herbal supplements for 1 week prior to surgery documented in this [id number] Note* PSE Appt H&P - Quinton Manzo - 02/16/2022 2:19 PM EDT Patient was identified by name and date of . Quinton Manzo Bill of rights provided to patient [id number] Miscellaneous Notes* PSE Appt H&P - Quinton Manzo - 02/16/2022 2:19 PM EDT Patient was identified by name and date of . Quinton Manzo Bill of rights provided to patient * PSE Appt H&P - Pierce Ramos APRN-CNP - 02/15/2022 2:46 PM EDT Presurgical Evaluation Isabelle Hewitt, [id number] 46 year old Female 02/17/2022 VITAL SIGNS: BP 125/81 Pulse 74 Temp 97.3 F (36.3 C) (Temporal) Resp 16 Ht 1.575 m (5' 2 ) Wt 81.6 kg (180 lb) SpO2 96% BMI 32.92 kg/m ALLERGIES: Not on File HISTORY OF PRESENT ILLNESS: Isabelle Hewitt is a 46 year old female pt who is seen here today for pre-surgical evaluation for UVULOPALATOPHARYNGOPLASTY. She has a h/o DIONNE (obstructive sleep apnea). Currently denies fever and chills, new cough, SOB or CP. She is scheduled for surgery w/ Dr. Moreno on 02/25/2022. RECENT ILLNESS: Serious illness or hospitalization within the last six months. No STOP-BANG Row Name 02/16/22 1421 History of sleep apnea? Yes Does not use CPAP PS12/17/2021 at [facility] RESPIRATORY DATA INTEGRITY: Respiratory data integrity was excellent, with no time lost to artifacts. Respiratory data integrity was 100% for flow quality, 96.6% for oximetry saturation quality and 100% for RIP sensor belt quality. IMPRESSION: 1. Very severe obstructive sleep apnea. 2. Very severe hypoxia associated with sleep apnea. 3. Significant tachycardia during sleep. COMMENTS: The patient was clinically suspected of obstructive sleep apnea and had been previously diagnosed with the disorder. She was interested in exploring Inspire therapy. This home sleep test does confirm that severe sleep apnea is present, but also finds that the apnea/hypopnea index falls within the acceptable range for Inspire therapy. Should she meet other criteria and be interested in referral, she could be evaluated for possible Inspire therapy. The patient did have severe nocturnal hypoxia, and there should be documentation that this is controlled with whatever treatment is selected. RECOMMENDATIONS: 1. The patient should continue current therapy for control of obstructive sleep apnea and hypoxia. 2. The patient could be considered for Inspire therapy if she meets other criteria and is interested in that approach. 3. The patient should ensure adequate total sleep time and regular sleep-wake cycles. The principles of appropriate sleep hygiene should be encouraged. 4. The patient should continue efforts at progressive weight loss. Even moderate weight loss can result in significant improvement in respiratory events. 5. The patient should be reminded of the medical, accident and cognitive risks associated with sleep apnea. 6. Clinical correlation and follow-up is advised. EXERCISE CAPACITY: 4-10 mets. Patient states she can walk 1 flight of stairs without difficulty. SOCIAL HISTORY: Social History Tobacco Use Smoking status: Former Smoker Packs/day: 1.00 Years: 5.00 Pack years: 5.00 Types: Cigarettes Smokeless tobacco: Never Used Substance Use Topics Alcohol use: Not Currently Drug use: Never reports no history of drug use. MEDICAL HISTORY: No past medical history on file. SURGICAL HISTORY: No past surgical history on file. PROBLEM LIST: Patient Active Problem List: DIONNE (obstructive sleep apnea) [G47.33] FAMILY HISTORY: No family history on file. ANESTHESIA REVIEW OF SYSTEMS: Eyes/ENT: Eye Glasses Teeth: Missing teeth, upper denture and lower partial Pulmonary: DIONNE (obstructive sleep apnea) Cardio-vascular: HTN, HLD and denies CP, SOB, BA, Syncope or palpitations G.I./ Hepatic: s/p cholecystectomy Renal/: hx of nephrolithiasis, s/p cytoscopy and lithotripsy 12/2021 Neurological: Migraines Gynecological: LMP: about 1 year ago, s/p Psychiatric: bipolar, depression, anxiety Musculoskeletal: Negative Endocrine: obesity, hypothyroidism Hematologic: Negative Constitutional: Negative Skin: Intact PREVIOUS ANESTHETIC COMPLICATIONS: None FAMILY HISTORY OF ANESTHETIC COMPLICATIONS: No PHYSICAL EXAM: Eyes: PERRL, EOM's intact and Wears glasses ENT: Mucosa normal, Neck supple, Carotids normal pulse without bruits and Thyroid normal Pulmonary: Chest clear to auscultation bilaterally Cardiovascular: RRR with S1S2 and No murmurs, gallops, or rubs Abdomen: Soft and non-tender and Bowel sounds normal Extremities: No gross or obvious abnormalities Neurologic: Awake, alert, oriented, No motor deficits and Sensation grossly intact Psychiatric: alert and oriented to person, place and time, Appropriate mood/affect Skin: No gross or obvious abnormalities on visible skin AIRWAY EXAM: Mallampati score: 2 TMD: Adequate Neck Extension/ Flexion: Adequate Mouth Opening: Adequate Dentition: Intact Micrognathia/Overbite: No PAIN ASSESSMENT: Severity: 0 Location: N/A LABORATORY DATA: Most recent labs in care everywhere Type & Screen None CBC (last 3 years, up to 5 values) None Basic Metabolic Panel None Basic Metabolic Panel None PT/PTT/INR (last 3 years, up to 5 values) None Arterial Blood Gases None No result for BNP LFT's (last 3 years, up to 5 values) None TESTS REVIEWED: CXRay: No Chest x-ray found EK02/16/2022 Normal sinus rhythm Nonspecific T wave abnormality Abnormal ECG No previous ECGs available Confirmed by OLGA MONTES ([id number]) on 02/17/2022 9:51:58 PM ECHO: Last Echocardiogram: none found going back to 12/21/2017 No results found for this basename: LVEF Stress test date: Last StressTest: none found going back to 12/21/2017 CURRENT MEDICATION LIST: Current Outpatient Medications Medication Sig Dispense Refill atorvastatin (LIPITOR) 20 mg tablet Take 20 mg by mouth. oxybutynin (DITROPAN) 5 MG tablet Take 5 mg by mouth. OLANZapine (ZyPREXA) 5 MG tablet Take 5 mg by mouth at bedtime. OLANZapine (ZyPREXA) 5 MG tablet Take by mouth. oxybutynin (DITROPAN) 5 MG tablet Take 5 mg by mouth 3 times daily as needed. levothyroxine (SYNTHROID) 25 MCG tablet TAKE 1 TABLET BY MOUTH EVERY DAY IN THE AM ON AN EMPTY STOMACH. DO NOT EAT OR DRINK FOR 2 HOURS AFTER TAKING norethindrone (MICRONOR) 0.35 MG tablet Take by mouth. clonazePAM (KlonoPIN) 1 MG tablet Take 1 mg by mouth every 12 hours as needed. atenolol (TENORMIN) 100 mg tablet Take 100 mg by mouth daily. venlafaxine (EFFEXOR XR) 75 MG ER capsule Take 75 mg by mouth daily. venlafaxine (EFFEXOR XR) 150 MG ER capsule Take 150 mg by mouth daily. triamterene-hydrochlorothiazide (MAXZIDE) 37.5-25 MG tablet Take 1 Tablet by mouth every other day. triamterene-hydrochlorothiazide (MAXZIDE) 37.5-25 MG tablet Take by mouth every other day. tamsulosin (FLOMAX) 0.4 MG capsule Take 1 Capsule by mouth daily. No current facility-administered medications for this visit. CURRENT MEDICATIONS: Aspirin: No NSAIDS: No Other Antiplatelet Medication: No Anticoagulants: No Steroids: No PATIENT MEDICATION INSTRUCTIONS: On the morning of your surgery please take only the following medications, with a small sip of water: See patient instruction for details LABS, TESTS, CONSULTS ORDERED: Orders & Meds Signed During This Encounter atorvastatin (LIPITOR) 20 mg tablet EKG 12-LEAD TRACING [[id number]] PLAN: Documentation complete. Labs, Images, and Medications reviewed, and patient questions answered. Interviewer signature: ARTURO Rankin 8:00 AM 02/17/2022 documented in this [id number] NotePresurgical Evaluation Isabelle Hewitt, [id number] 46 year old Female 02/17/2022 VITAL SIGNS: BP 125/81 Pulse 74 Temp 97.3 ???F (36.3 ???C) (Temporal) Resp 16 Ht 1.575 m (5' 2 ) Wt 81.6 kg (180 lb) SpO2 96% BMI 32.92 kg/m??? ALLERGIES: Not on File HISTORY OF PRESENT ILLNESS: Isabelle Hewitt is a 46 year old female pt who is seen here today for pre-surgical evaluation for UVULOPALATOPHARYNGOPLASTY. She has a h/o DIONNE (obstructive sleep apnea). Currently denies fever and chills, new cough, SOB or CP. She is scheduled for surgery w/ Dr. Moreno on 02/25/2022. RECENT ILLNESS: Serious illness or hospitalization within the last six months. No STOP-BANG Row Name 02/16/22 1421 History of sleep apnea? Yes Does not use CPAP PS12/17/2021 at [facility] RESPIRATORY DATA INTEGRITY: Respiratory data integrity was excellent, with no time lost to artifacts. Respiratory data integrity was 100% for flow quality, 96.6% for oximetry saturation quality and 100% for RIP sensor belt quality. IMPRESSION: 1. Very severe obstructive sleep apnea. 2. Very severe hypoxia associated with sleep apnea. 3. Significant tachycardia during sleep. COMMENTS: The patient was clinically suspected of obstructive sleep apnea and had been previously diagnosed with the disorder. She was interested in exploring Inspire therapy. This home sleep test does confirm that severe sleep apnea is present, but also finds that the apnea/hypopnea index falls within the acceptable range for Inspire therapy. Should she meet other criteria and be interested in referral, she could be evaluated for possible Inspire therapy. The patient did have severe nocturnal hypoxia, and there should be documentation that this is controlled with whatever treatment is selected. RECOMMENDATIONS: 1. The patient should continue current therapy for control of obstructive sleep apnea and hypoxia. 2. The patient could be considered for Inspire therapy if she meets other criteria and is interested in that approach. 3. The patient should ensure adequate total sleep time and regular sleep-wake cycles. The principles of appropriate sleep hygiene should be encouraged. 4. The patient should continue efforts at progressive weight loss. Even moderate weight loss can result in significant improvement in respiratory events. 5. The patient should be reminded of the medical, accident and cognitive risks associated with sleep apnea. 6. Clinical correlation and follow-up is advised. EXERCISE CAPACITY: 4-10 mets. Patient states she can walk 1 flight of stairs without difficulty. SOCIAL HISTORY: Social History Tobacco Use * Smoking status: Former Smoker Packs/day: 1.00 Years: 5.00 Pack years: 5.00 Types: Cigarettes * Smokeless tobacco: Never Used Substance Use Topics * Alcohol use: Not Currently * Drug use: Never reports no history of drug use. MEDICAL HISTORY: No past medical history on file. SURGICAL HISTORY: No past surgical history on file. PROBLEM LIST: Patient Active Problem List: DIONNE (obstructive sleep apnea) [G47.33] FAMILY HISTORY: No family history on file. ANESTHESIA REVIEW OF SYSTEMS: Eyes/ENT: Eye Glasses Teeth: Missing teeth, upper denture and lower partial Pulmonary: DIONNE (obstructive sleep apnea) Cardio-vascular: HTN, HLD and denies CP, SOB, BA, Syncope or palpitations G.I./ Hepatic: s/p cholecystectomy Renal/: hx of nephrolithiasis, s/p cytoscopy and lithotripsy 12/2021 Neurological: Migraines Gynecological: LMP: about 1 year ago, s/p Psychiatric: bipolar, depression, anxiety Musculoskeletal: Negative Endocrine: obesity, hypothyroidism Hematologic: Negative Constitutional: Negative Skin: Intact PREVIOUS ANESTHETIC COMPLICATIONS: None FAMILY HISTORY OF ANESTHETIC COMPLICATIONS: No PHYSICAL EXAM: Eyes: PERRL, EOM's intact and Wears glasses ENT: Mucosa normal, Neck supple, Carotids normal pulse without bruits and Thyroid normal Pulmonary: Chest clear to auscultation bilaterally Cardiovascular: RRR with S1S2 and No murmurs, gallops, or rubs Abdomen: Soft and non-tender and Bowel sounds normal Extremities: No gross or obvious abnormalities Neurologic: Awake, alert, oriented, No motor deficits and Sensation grossly intact Psychiatric: alert and oriented to person, place and time, Appropriate mood/affect Skin: No gross or obvious abnormalities on visible skin AIRWAY EXAM: Mallampati score: 2 TMD: Adequate Neck Extension/ Flexion: Adequate Mouth Opening: Adequate Dentition: Intact Micrognathia/Overbite: No PAIN ASSESSMENT: Severity: 0 Location: N/A LABORATORY DATA: Most recent labs in care everywhere Type AND Screen None CBC (last 3 years, up to 5 values) None Basic Metabolic Panel None Basic Metabolic Panel None PT/PTT/INR (last 3 years, up to 5 values) None Arterial Blood Gases None No result fo (more content not included)...[employer] [id number] Note * PSE Appt H&P - Pierce Ramos APRN-CNP - 02/15/2022 2:46 PM EDT Presurgical Evaluation Isabelle Hewitt, [id number] 46 year old Female 02/17/2022 VITAL SIGNS: BP 125/81 Pulse 74 Temp 97.3 F (36.3 C) (Temporal) Resp 16 Ht 1.575 m (5' 2 ) Wt 81.6 kg (180 lb) SpO2 96% BMI 32.92 kg/m ALLERGIES: Not on File HISTORY OF PRESENT ILLNESS: Isabelle Hewitt is a 46 year old female pt who is seen here today for pre-surgical evaluation for UVULOPALATOPHARYNGOPLASTY. She has a h/o DIONNE (obstructive sleep apnea). Currently denies fever and chills, new cough, SOB or CP. She is scheduled for surgery w/ Dr. Moreno on 02/25/2022. RECENT ILLNESS: Serious illness or hospitalization within the last six months. No STOP-BANG Row Name 02/16/22 1424 History of sleep apnea? Yes Does not use CPAP PS12/17/2021 at [facility] RESPIRATORY DATA INTEGRITY: Respiratory data integrity was excellent, with no time lost to artifacts. Respiratory data integrity was 100% for flow quality, 96.6% for oximetry saturation quality and 100% for RIP sensor belt quality. IMPRESSION: 1. Very severe obstructive sleep apnea. 2. Very severe hypoxia associated with sleep apnea. 3. Significant tachycardia during sleep. COMMENTS: The patient was clinically suspected of obstructive sleep apnea and had been previously diagnosed with the disorder. She was interested in exploring Inspire therapy. This home sleep test does confirm that severe sleep apnea is present, but also finds that the apnea/hypopnea index falls within the acceptable range for Inspire therapy. Should she meet other criteria and be interested in referral, she could be evaluated for possible Inspire therapy. The patient did have severe nocturnal hypoxia, and there should be documentation that this is controlled with whatever treatment is selected. RECOMMENDATIONS: 1. The patient should continue current therapy for control of obstructive sleep apnea and hypoxia. 2. The patient could be considered for Inspire therapy if she meets other criteria and is interested in that approach. 3. The patient should ensure adequate total sleep time and regular sleep-wake cycles. The principles of appropriate sleep hygiene should be encouraged. 4. The patient should continue efforts at progressive weight loss. Even moderate weight loss can result in significant improvement in respiratory events. 5. The patient should be reminded of the medical, accident and cognitive risks associated with sleep apnea. 6. Clinical correlation and follow-up is advised. EXERCISE CAPACITY: 4-10 mets. Patient states she can walk 1 flight of stairs without difficulty. SOCIAL HISTORY: Social History Tobacco Use Smoking status: Former Smoker Packs/day: 1.00 Years: 5.00 Pack years: 5.00 Types: Cigarettes Smokeless tobacco: Never Used Substance Use Topics Alcohol use: Not Currently Drug use: Never reports no history of drug use. MEDICAL HISTORY: No past medical history on file. SURGICAL HISTORY: No past surgical history on file. PROBLEM LIST: Patient Active Problem List: DIONNE (obstructive sleep apnea) [G47.33] FAMILY HISTORY: No family history on file. ANESTHESIA REVIEW OF SYSTEMS: Eyes/ENT: Eye Glasses Teeth: Missing teeth, upper denture and lower partial Pulmonary: DIONNE (obstructive sleep apnea) Cardio-vascular: HTN, HLD and denies CP, SOB, BA, Syncope or palpitations G.I./ Hepatic: s/p cholecystectomy Renal/: hx of nephrolithiasis, s/p cytoscopy and lithotripsy 12/2021 Neurological: Migraines Gynecological: LMP: about 1 year ago, s/p Psychiatric: bipolar, depression, anxiety Musculoskeletal: Negative Endocrine: obesity, hypothyroidism Hematologic: Negative Constitutional: Negative Skin: Intact PREVIOUS ANESTHETIC COMPLICATIONS: None FAMILY HISTORY OF ANESTHETIC COMPLICATIONS: No PHYSICAL EXAM: Eyes: PERRL, EOM's intact and Wears glasses ENT: Mucosa normal, Neck supple, Carotids normal pulse without bruits and Thyroid normal Pulmonary: Chest clear to auscultation bilaterally Cardiovascular: RRR with S1S2 and No murmurs, gallops, or rubs Abdomen: Soft and non-tender and Bowel sounds normal Extremities: No gross or obvious abnormalities Neurologic: Awake, alert, oriented, No motor deficits and Sensation grossly intact Psychiatric: alert and oriented to person, place and time, Appropriate mood/affect Skin: No gross or obvious abnormalities on visible skin AIRWAY EXAM: Mallampati score: 2 TMD: Adequate Neck Extension/ Flexion: Adequate Mouth Opening: Adequate Dentition: Intact Micrognathia/Overbite: No PAIN ASSESSMENT: Severity: 0 Location: N/A LABORATORY DATA: Most recent labs in care everywhere Type & Screen None CBC (last 3 years, up to 5 values) None Basic Metabolic Panel None Basic Metabolic Panel None PT/PTT/INR (last 3 years, up to 5 values) None Arterial Blood Gases None No result for BNP LFT's (last 3 years, up to 5 values) None TESTS REVIEWED: CXRay: No Chest x-ray found EK02/16/2022 Normal sinus rhythm Nonspecific T wave abnormality Abnormal ECG No previous ECGs available Confirmed by OLGA MONTES ([id number]) on 02/17/2022 9:51:58 PM ECHO: Last Echocardiogram: none found going back to 12/21/2017 No results found for this basename: LVEF Stress test date: Last StressTest: none found going back to 12/21/2017 CURRENT MEDICATION LIST: Current Outpatient Medications Medication Sig Dispense Refill atorvastatin (LIPITOR) 20 mg tablet Take 20 mg by mouth. oxybutynin (DITROPAN) 5 MG tablet Take 5 mg by mouth. OLANZapine (ZyPREXA) 5 MG tablet Take 5 mg by mouth at bedtime. OLANZapine (ZyPREXA) 5 MG tablet Take by mouth. oxybutynin (DITROPAN) 5 MG tablet Take 5 mg by mouth 3 times daily as needed. levothyroxine (SYNTHROID) 25 MCG tablet TAKE 1 TABLET BY MOUTH EVERY DAY IN THE AM ON AN EMPTY STOMACH. DO NOT EAT OR DRINK FOR 2 HOURS AFTER TAKING norethindrone (MICRONOR) 0.35 MG tablet Take by mouth. clonazePAM (KlonoPIN) 1 MG tablet Take 1 mg by mouth every 12 hours as needed. atenolol (TENORMIN) 100 mg tablet Take 100 mg by mouth daily. venlafaxine (EFFEXOR XR) 75 MG ER capsule Take 75 mg by mouth daily. venlafaxine (EFFEXOR XR) 150 MG ER capsule Take 150 mg by mouth daily. triamterene-hydrochlorothiazide (MAXZIDE) 37.5-25 MG tablet Take 1 Tablet by mouth every other day. triamterene-hydrochlorothiazide (MAXZIDE) 37.5-25 MG tablet Take by mouth every other day. tamsulosin (FLOMAX) 0.4 MG capsule Take 1 Capsule by mouth daily. No current facility-administered medications for this visit. CURRENT MEDICATIONS: Aspirin: No NSAIDS: No Other Antiplatelet Medication: No Anticoagulants: No Steroids: No PATIENT MEDICATION INSTRUCTIONS: On the morning of your surgery please take only the following medications, with a small sip of water: See patient instruction for details LABS, TESTS, CONSULTS ORDERED: Orders & Meds Signed During This Encounter atorvastatin (LIPITOR) 20 mg tablet EKG 12-LEAD TRACING [[id number]] PLAN: Documentation complete. Labs, Images, and Medications reviewed, and patient questions answered. Interviewer signature: ARTURO Rankin 8:00 AM 02/17/2022 [id number] Telephone encounter Note* Telephone Encounter - Mary Dennis RN - 02/11/2022 3:52 PM EDT Arrangements to be made for pre-op COVID testing per ENT request. [id number] Miscellaneous Notes* Telephone Encounter - Mary Dennis RN - 02/11/2022 3:52 PM EDT Arrangements to be made for pre-op COVID testing per ENT request. documented in this [id number] History of Present illness Narrative* Yi Moreno MD - 01/11/2022 1:59 PM EDT CC: sleep disordered breathing Referred by: Dr Mcmanus HPI: This is a a 46 year old female, seeing me today to be evaluated for sleep surgical treatment options. Has been diagnosed with DIONNE and 2013 and has struggled all along using CPAP. Has been diagnosed with obstructive sleep apnea and unable to benefit from CPAP. As a result, feeling fatigued, tired, reduced memory and cognitive function, affecting personal/work life. 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 Some diagnostic sleep studies indicating AHI sidein the 90s with the most recent home sleep study from November 2021 indicating an AHI of 63 with an G8ctenc of 64% Sleep position: Side Mouth breather:y yeses previous sleep surgeries: no Other sleep disorders, such as insomnia/ kataplexy/ narcolepsy: yes, on andoff Bruxism: no tried oral appliance:edenetulous Questionnaires: [place] sleep scale score: 18 FOSQ-10: HADS No past medical history on file. No past surgical history on file. Allergies Patient has no allergy information on record. Medications Current Outpatient Medications Medication Sig Dispense Refill oxybutynin (DITROPAN) 5 MG tablet Take 5 mg by mouth. OLANZapine (ZyPREXA) 5 MG tablet Take 5 mg by mouth at bedtime. OLANZapine (ZyPREXA) 5 MG tablet Take by mouth. oxybutynin (DITROPAN) 5 MG tablet Take 5 mg by mouth 3 times daily as needed. levothyroxine (SYNTHROID) 25 MCG tablet TAKE 1 TABLET BY MOUTH EVERY DAY IN THE AM ON AN EMPTY STOMACH. DO NOT EAT OR DRINK FOR 2 HOURS AFTER TAKING norethindrone (Fannie-BE) 0.35 MG tablet Take by mouth. clonazePAM (KlonoPIN) 1 MG tablet Take 1 mg by mouth every 12 hours as needed. atenolol (TENORMIN) 100 mg tablet Take 100 mg by mouth daily. venlafaxine (EFFEXOR XR) 75 MG ER capsule Take 75 mg by mouth daily. venlafaxine (EFFEXOR XR) 150 MG ER capsule Take 150 mg by mouth daily. triamterene-hydrochlorothiazide (MAXZIDE) 37.5-25 MG tablet Take 1 Tablet by mouth every other day. triamterene-hydrochlorothiazide (MAXZIDE) 37.5-25 MG tablet Take by mouth every other day. tamsulosin (FLOMAX) 0.4 MG capsule Take 1 Capsule by mouth daily. No current facility-administered medications for this visit. Family History The patient's family history is not on file.. Social History: Social History Socioeconomic History Marital status: Unknown Review Of Systems: Skin: negative Eyes: negative review of symptoms Ears/Nose/Throat: negative and as above Respiratory: negative symptoms (no cough, hemoptysis, SOB, BA, PND, wheezing) Cardiovascular: negative symptoms (No CP/Pressure/Tightness, palpitations, orthopnea, PND, SOB, BA, edema, MANN or vision change) Gastrointestinal: negative symptoms (no abdominal pain, anorexia, n/v, indigestion, constipation, or diarrhea) Genitourinary: no urinary symptoms Neurologic: negative symptoms (no syncope, seizures, weakness, gait problems, numbness, burning pain, tremors, or memory loss) Psychiatric: negative (no sleep disturbance, anxiety, memory loss, disorientation, inattention, feelings of depression) Hematologic/Lymphatic/Immunologic: negative (no anemia, bleeding, bruising) Endocrine: negative review of symptoms Physical Exam Vitals Recorded in This Encounter 01/11/2022 1412 01/11/2022 1420 BP: 126/91 116/87 Pulse: 91 86 Resp: 18 no documentation Temp: 98.8 F (37.1 C) no documentation Temp src: Temporal no documentation SpO2: 100 % no documentation Weight: 188 lb (85.3 kg) no documentation Height: 5' 2 (1.575 m) no documentation Pain Score: 4 no documentation Pain Loc: BACK no documentation Pain Edu?: N no documentation BMI: 34.39 Neck circumference: 15.5inches Voice: Conversational voice is normal. General: Well-appearing patient in no apparent distress; no stridor. Head and Face: Normocephalic, atraumatic, no sinus tenderness, normal salivary glands. Eyes: Extraocular motions intact. Ears: Otoscopy of external auditory canals and tympanic membranes were intact. The middle ear was aerated bilaterally. Clinical speech administrative assistant receptionist thresholds grossly intact. No lesions/mass of auricles. Nose: Septal deviation to the left with turbinate hypertrophy Mouth: Severely retrognathia jaw. Very narrow upper and lower jaw. Edentulous. Dejesus class 3-4. Plus three tonsils, obstructive. Or pharyngeal airway is narrowed. Neck and Lymphatics: No palpable cervical lymphadenopathy or neck masses appreciated; no neck mass//asymmetry. Trachea is midline. Normal sized thyroid. No tenderness. Neuro/Psych: Alert with normal mood and affect. Cranial nerves II-XII grossly intact. Cardiac: Regular rate and rhythm. Respiratory/Chest: Symmetric expansion during respiration, normal respiratory effect, no retractions. Extremities: No clubbing, cyanosis, or edema. Skin: Warm and intact. Procedure: Flexible transnasal video(strobo-)laryngoscopy Indication: The procedure was performed to assess either of the followin. Diagnosis of symptomatic disorders involving the voice, swallowing, and upper aero digestive tract, including DIONNE 2. Preoperative evaluation of vocal cord function for a patient who is undergoing surgery where thelaryngeal recurrent or vagus nerve is a risk for injury 3. Further evaluation of abnormalities of the upper aero digestive tract as discovered by other modalities (e.g. imaging, endoscopy) Description: Following topical anesthesia of the patient's nasal cavity with a mixture of lidocaineand phenylepherine, a flexible fiberoptic laryngostroboscope was advanced into the nasal cavity, nasopharynx, oropharynx, and finally larynx / hypopharynx. A battery of phonatory and respiratory tasks were performed. The scope was removed and the patient tolerated the procedure without complication. Findings: Nasopharynx patent. Concentrically narrowed retro palatal airway with prominent palatine tonsils. Base of tongue is moderately ptotic Arytenoid mobility: bilaterally normal with full range of motion Vocal cord shape: Both vocal cords were edematous Closure: complete during phonation. Other findings: The larynx was edematous with effacement of the ventricle with vocal cord edema and precautions including postcricoid swelling Assessment and plan: This is a a 46 year old female who presents today for severe obstructive sleep apnea and CPAP intolerance. Extremely symptomatic. Falling asleep while driving. Depressed. Anxious. 1. DIONNE a. AHI 63 on most recent home sleep study. b. Significant multilevel upper airway obstruction including or pharyngeal obstruction in setting of large tonsils c. Very significant retrognathia jaw inducing a base of tongue obstruction d. From sleep surgical perspective will most likely need to, possibly 3 sleep surgeries to improve upper airway adequately which will include UPPP with removal of tonsils, achieve sidewall stabilization, followed by potentially a maxillomandibular advancement procedure and/or hypoglossal nerve stimulation. These procedures were all be staged with re-evaluation by a sleep study and sleep endoscopyin between 2. Obesity a. Counseled patient on diet changes, weight loss. Provided appropriate recommendations. b. Explained importance of losing weight in the context of improving sleep apnea. Discussed possibility of weight loss program . 3. LPR a. Recommended lifestyle and diet changes to improve reflux in the effect of reflux on her throat and postnasal drainage and laryngeal symptoms. b. Discussed medical therapy including PPI therapy. Careful evaluation and examination of the patient has revealed an oropharyngeal/retropalatal airwayobstruction as a contributing factor for his obstructive sleep apnea. A UPPP is indicated and recommended because: Patient has been diagnosed with sleep apnea and has failed or cannot tolerate CPAP. Patient's daytime sleepiness interferes with work and/or daily activities. Patient is not a candidate for a mandibular advancement device because: o Suffers from bruxism and has poor dentition Patient has significantly enlarged tonsils (+3-4 tonsils) leading to obvious obstruction and/or narrowing of the throat causing an obstruction. Patient has tried to lose weight (diet modifications, participated in exercise program) but has failed. Patient's weight is not a concern for this recommended surgery. Patient's procedure [facility] be [facility] at [facility]. This is a difficult airway in terms of intubation and because of retrognathia. It patient will be admitted for observation and step-down unit Injury to nerve, vessel, teeth, lips, lingual nerve, hypoglossal nerve, taste disturbance, numbnessof tongue, dysarthria, swallowing difficulties, possibly permanent, feeding tube dependence, severeintraoperative or postoperative bleeding, complications related to inability to eat or drink including dehydration, velopharyngeal insufficiency with nasal regurgitation, trismus, incomplete treatment of obstructive sleep apnea, possible need for blood transfusion as discussed preoperatively. documented in this [id number] History of Present illness Narrative* Randa Yanes RN - 01/05/2022 4:25 PM EDT Discharge Criteria Inpatients must meet Criteria 1 through 7. All other patients are either YES or N/A. If a NO is chosen then Anesthesia or Surgeon must be notified. 1. Minimum 30 minutes after last dose of sedative medication, minimum 120 minutes after last dose of reversal agent. Yes 2. Systolic BP stable within 20 mmHg for 30 minutes & systolic BP between 90 & 180 or within 10 mmHg of baseline. Yes 3. Pulse between 60 and 100 or within 10 bpm of baseline. Yes 4. Spontaneous respiratory rate >/= 10 per minute. Yes 5. SaO2 >/= 95 or >/= baseline. Yes 6. Able to cough and swallow or return to baseline function. Yes 7. Alert and oriented or return to baseline mental status. Yes 8. Demonstrates controlled, coordinated movements, ambulates with steady gait, or return to baseline activity function. Yes 9. Minimal or no pain or nausea, or at a level tolerable and acceptable to patient. Yes 10. Takes and retains oral fluids as allowed. Yes 11. Procedural / perioperative site stable. Minimal or no bleeding. Yes 12. If GI endoscopy procedure, minimal or no abdominal distention or passing flatus. n/a 13. Written discharge instructions and emergency telephone number provided. Yes 14. Accompanied by a responsible adult. Yes * Silvestre Britt RN - 01/01/2022 2:35 PM EDT Patient instructed per phone interview on the pre-operative, intra-operative, and post-operative process as well as NPO status. Pre-operative instruction sheet reviewed with the patient. Patient to take Tenormin, Effexor, and Clonopine in am of surgery with sip of water only. Patient states she is unsure of ride at this time , but states she will know by Tuesday when she is called with her surgery time if she can arrange a ride or not. Verbalizes understanding. documented in this [facility] [employer] Phone: [phone]) 327-102305-17-2022 Hospital Discharge instructions* Instructions* Ade Easton RN - 01/05/2022 SAME DAY SURGERY DISCHARGE INSTRUCTIONS 1. Do not drive or operate hazardous machinery for 24 hours. 2. Do not make important personal or business decisions for 24 hours. 3. Do not drink alcoholic beverages for 24 hours. 4. Do not smoke tobacco products for 24 hours. 5. Eat light foods (Jell-O, soups, etc....) and drink plenty of fluids (water, Sprite, etc...) up to 8 glasses per day, as you can tolerate. 6. Limit your activities for 24 hours. Do not engage in heavy work until your surgeon gives you permission. 7. Call your surgeon for any questions regarding your surgery. CYSTOSCOPY DISCHARGE INSTRUCTIONS Possible burning during urination and/or blood tinged urine. Drink 6-8 glasses of water for the next day or so. (This helps to flush the urinary tract.) Call Dr. Hirsch ([phone]) if you develop: Fever over 100 degrees Prolonged soreness/pain Unusual bleeding/bruising Unable to urinate or if urine is bloody You cannot pass urine 8 hours after the test. You have pain in your belly or your back just below your rib cage. (This is called flank pain.) You have frequent urge to urinate but can pass only small amounts of urine. Call Dr. Hirsch office for follow-up appointment ([phone]). [facility]: [phone]) 898-592803-21-2022 Evaluation note* Encounter Date Diagnosis Assessment Notes Treatment Notes Treatment Clinical Notes Oct, Obstructive sleep apnea (adult) (pediatric) (ICD-10 - G47.33) She has previously documented severe obstructive sleep apnea, with a test showing AHI of 67 some years ago and a repeat test showing AHI of over 90 in 2019. Her body weight had increased so it is possible these numbers are accurate but I am hopeful that they are overestimating her current degree of apnea. There is no doubt that untreated sleep apnea contributes mightily to her poor quality sleep and excessive daytime sleepiness. She has previously been intolerant of positive airway pressure treatment with several attempts and doing poorly. These were each done with a fixed pressure BiPAP machine, most recently set at 16/8 in 2019. She had used a full facemask as well, and this would not be optimal given her significant claustrophobia and PAP intolerance. She was interested in Inspire Therapy or surgical interventions but I am concerned that these may not be available options based on the above findings. We reviewed these issues in detail... She gets very stressed at the even thought of using positive airway pressure, but I explained why repeat HST and at least a trial with Pap may be necessary even if she otherwise qualifies for Inspire Therapy. Provided her thyroid is optimized, home sleep testing could be performed and I am hopeful it will show an AHI of 65 or lower as Inspire Therapy requires. Should this prove to be the case, at least a trial at attempting BiPAP would likely be necessary to qualify for inspire. I encouraged her to get a different mask and an order was written for that. Modern interfaces may reduce intolerance problems. I also encouraged her to get the machine reset to make it easier to tolerate; I ordered auto BiPAP, which her machine is capable of delivering. She will return to review response Oct, Sleep phase syndrome, delayed (ICD-10 - G47.21) She has sleep phase delay with unfortunately irregular sleep patterns. We discussed these issues in detail. I encouraged her to get up every day at 10:00 in the morning, and to stay out of the bed without sleep until 3 AM. She should avoid naps and drowsing through the day as these will each make her nighttime sleep worse. I am hopeful that stabilizing her time in bed patterns will stabilize her insomnia and sleep phase problems Oct, Other insomnia (ICD-10 - G47.09) She also has other findings suggesting underlying insomnia issues. Anxiety and bipolar depression can each contribute to poor quality sleep and insomnia, and if these issues are playing significant roles success may require effectively addressing these affective disorder problems Oct, BMI 32.0-32.9,adult (ICD-10 - Z68.32) Weight control makes a significant difference in sleep apnea severity, and even if her apnea-hypopnea index turns out to be higher than target if she does bring her weight down this should improve her AHI progressively. It is possible that with some weight loss even if she does not qualify for inspire now she may qualify in the future Oct, Bipolar depression (ICD-10 - F31.9) Bipolar disorder can cause sleep initiation and maintenance problems, particularly when cycling towards the upper end of her range. Oct, Anxiety (ICD-10 - F41.9) Anxiety as a symptom of bipolar disorder can interfere with sleep, but anxiety on its own may be an issue contributing to psychophysiologic insomnia Oct, Hypothyroidism, unspecified type (ICD-10 - E03.9) She has had abnormal thyroid tests, and some of her symptoms could be consistent with developing hypothyroidism. She did have positive antithyroid antibodies, low free T4, and normal range TSH at the end of August. The free T4 and TSH should be reassessed as hypothyroidism could be gradually developing. If she is hypothyroid now, sleep testing should be deferred until euthyroid status established Oct, Other The diagnosis o f Sleep Apnea was reviewed in detail, and handout materials were provided. The patient expresses good understanding, We also reviewed the medical and accident risks associated with sleep apnea and excessive fatigue. The patient is advised to adhere to a proper sleep hygiene schedule and to assure adequate total sleep time; The patient was advised to continue efforts at progressive weight loss, including decreased overall caloric intake quantity and better food choices.The patient was advised to call or return any difficulties arise, including changes in symptoms and/or problems with treatment [facility] [employer] Other Chimv complaint Narrative - ReportedISABELLE HEWITT is being seen for a consultation for abnormal test(s) results.-[facility] [address] DO Work Phone: Evaluation note* Diagnosis Kidney stones Calculus of kidney documented in this encounter [employer] Phone: [email or web address] note* Diagnosis Pre-op testing Preoperative examination, unspecified documented in this encounter [employer] Phone: [email or web address] note* Diagnosis Ureteral calculus- Primary Calculus of ureter documented in this encounter [employer] Phone: [email or web address] note* Diagnosis DIONNE (obstructive sleep apnea)- Primary Obstructive sleep apnea (adult) (pediatric) Body mass index (BMI) 34.0-34.9, adult [facility] [email or web address] Other Evaluation note* Diagnosis DIONNE (obstructive sleep apnea)- Primary Obstructive sleep apnea (adult) (pediatric) Encounter for laboratory testing for severe acute respiratory syndrome coronavirus 2 (SARS-CoV-2) Preop testing- Primary Preoperative examination, unspecified Abnormal electrocardiogram (ECG) (EKG) Body mass index (BMI) 32.0-32.9, adult DIONNE (obstructive sleep apnea) Obstructive sleep apnea (adult) (pediatric) [facility]* Diagnosis Ureteral stone Calculus of ureter documented in this encounter DARIUS PICHARDO [employer] Work Phone: [email or web address] note* Diagnosis DIONNE (obstructive sleep apnea)- Primary Obstructive sleep apnea (adult) (pediatric) Encounter for laboratory testing for severe acute respiratory syndrome coronavirus 2 (SARS-CoV-2) Postoperative pain Other acute postoperative pain [facility]* Diagnosis DIONNE (obstructive sleep apnea)- Primary Obstructive sleep apnea (adult) (pediatric) documented [facility] assessment information [facility] Work Phone: Evaluation note* Diagnosis Obstructive sleep apnea- Primary Obstructive sleep apnea (adult) (pediatric) DIONNE (obstructive sleep apnea) Obstructive sleep apnea (adult) (pediatric) Body mass index (BMI) 34.0-34.9, adult [facility]* Diagnosis DIONNE (obstructive sleep apnea)- Primary Obstructive sleep apnea (adult) (pediatric) DIONNE (obstructive sleep apnea)- Primary Obstructive sleep apnea (adult) (pediatric) DIONNE (obstructive sleep apnea) Obstructive sleep apnea (adult) (pediatric) [facility]* Diagnosis DIONNE (obstructive sleep apnea)- Primary Obstructive sleep apnea (adult) (pediatric) DIONNE (obstructive sleep apnea)- Primary Obstructive sleep apnea (adult) (pediatric) DIONNE (obstructive sleep apnea) Obstructive sleep apnea (adult) (pediatric) [facility]* Diagnosis DIONNE (obstructive sleep apnea)- Primary Obstructive sleep apnea (adult) (pediatric) Pre-op testing- Primary Preoperative examination, unspecified Body mass index (BMI) 35.0-35.9, adult DIONNE (obstructive sleep apnea) Obstructive sleep apnea (adult) (pediatric) [facility]* Diagnosis DIONNE (obstructive sleep apnea)- Primary Obstructive sleep apnea (adult) (pediatric) Encounter for laboratory testing for severe acute respiratory syndrome coronavirus 2 (SARS-CoV-2) Preop examination- Primary Preoperative examination, unspecified DIONNE (obstructive sleep apnea) Obstructive sleep apnea (adult) (pediatric) [facility]* Diagnosis DIONNE (obstructive sleep apnea)- Primary Obstructive sleep apnea (adult) (pediatric) ENCOUNTER OPENED IN ERROR- Primary DIONNE (obstructive sleep apnea) Obstructive sleep apnea (adult) (pediatric) [facility]* Diagnosis DIONNE (obstructive sleep apnea)- Primary Obstructive sleep apnea (adult) (pediatric) Pain Generalized pain documented [facility]* Diagnosis Obstructive sleep apnea- Primary Obstructive sleep apnea (adult) (pediatric) DIONNE (obstructive sleep apnea) Obstructive sleep apnea (adult) (pediatric) Body mass index (BMI) 34.0-34.9, adult [facility]* Diagnosis Obstructive sleep apnea- Primary Obstructive sleep apnea (adult) (pediatric) [facility]* Diagnosis DIONNE (obstructive sleep apnea)- Primary Obstructive sleep apnea (adult) (pediatric) [facility]* Diagnosis Dysuria documented in this encounter [employer] Phone: evaluation note* Diagnosis Post-operative state- Primary Other postprocedural status [facility]* Diagnosis Post-operative state- Primary Other postprocedural status [facility]* Diagnosis OAB (overactive bladder) Hypertonicity of bladder Urge incontinence Frequency of urination Urinary frequency documented in this encounter [employer] Phone: History and physical note Author David Martinez [facility] August 08, 2023 12:30pm Note Date/Time August 08, 2023 12:30pm [facility] [address] [place] [address] Gastroenterology H&P Signed Patient: Isabelle Hewitt I MR#: [id number] : 1975 Acct:[id number] Age/Sex: 48 / F Adm Date: 3 Loc: Room: Type: [facility] Attending Dr: David Martinez MD Copies to: MD Gena Seaman NP-Kristina~ Date of Service: 08/08/2023 HISTORY & PHYSICAL: Patient's history with special attention to the cardiovascular, pulmonary systems and the current problem was reviewed with the patient immediately prior to the procedure. Present medications and doses reviewed in the EMR. Allergies and pertinent laboratory tests were also reviewedat this time in the EMR. The physical examination, as below, was then performed. Indication, assessment and HPI: 48-year-old female here for colonoscopy for evaluation of diarrhea Family history of GI malignancy? No PHYSICAL EXAMINATION Mouth and Pharynx : Moist mucus membranes, normal dentition Cardiac: Regular rate, regular rhythm Pulmonary: Clear to auscultation bilaterally, no wheezing Neurological: Alert and oriented x3, no focal deficits noted Abdomen: Abdomen soft, non-tender REVIEW OF SYSTEMS Constitutional: Denies malaise, fevers Cardiovascular: Denies chest pain, palpitations Respiratory: Denies shortness of breath, wheezing Gastrointestinal: Per HPI Genitourinary: Denies dysuria, polyuria Musculoskeletal: Denies joint swelling, joint stiffness Neurological: Denies numbness, tingling Integumentary: Denies rashes, skin lesions Endocrine: Denies fatigue, weight loss Written informed consent obtained from the patient. Risks (including but not limited to perforation, infection, bloating, bleeding, need for emergent surgeryand loss of life), benefits and alternatives explained and questions answered. The patient verbalized understanding. Based on history patient is an appropriate candidate for the procedure. David Martinez M.D. Documented By: David Martinez MD 08/08/23 1229 Signed By: <Electronically signed by David Martinez MD> 08/08/[address] [facility] Work Phone: Hisrtcl general Narrative - Reported* Type Description Date Medical History anxiety Medical History Hypertension Medical History sleep apnea Surgical History C section Surgical History cholecystectomy Hospitalization History see above Hospitalization History no history of ps ychiatric hospitalization, substance abuse, and suicide attempts, but she is history of ongoing treatment of depression and counseling for depression, anxiety Hospitalization History dehydration Se[facility]iSS Other History general Narrative - Reported* Type Description Date Medical History anxiety Medical History Hypertension Medical History sleep apnea Medical History overactive bladder Medical History thyroid disease Medical History chronic depression Surgical History C section Surgical History cholecystectomy Surgical History fallopian tubes removed october 21 Surgical History throat and jaw surgery-due to s leep apnea 2021 Hospitalization History see above Hospitalization History no history of ps ychiatric hospitalization, substance abuse, and suicide attempts, but she is history of ongoing treatment of depression and counseling for depression, anxiety Hospitalization History dehydration SeamBLiSS Other History of Present illness Narrative* Patient is here for cardiovascular evaluation requested for borderline abnormal echocardiogram, hypertension and lower extremity edema. Patient is 46-year-old with history of hypertension for about 13 years. Patient has been managed with atenolol. However recently she report her blood pressure has been running a little bit on the higher range. Patient also reported some lower extremity edema and mild weight gain. The patient admits to high level of anxiety, stress and chronic depression. Patient admits to noncompliance with salt restriction. She admits to high intake of fluid including tea and Gatorade. The patient recent echocardiogram showed normal LV systolic function, left ventricular hypertrophy, dilated left atria and mild mitral regurgitation. Patient during the office visit has numerous questions and related to her cardiac issues including regular menses. Tingling sensation in her lower extremity. Anxiety and depression. Patient also reports history of sleep apnea but admits to noncompliance with CPAP * Assessment * 1. Hypertension suboptimally controlled * 2. Lower extremity edema likely due to salt indiscretion and untreated sleep apnea * 3. Obesity * 4. Sleep apnea * 5. Anxiety and depression followed by her PCP * 6. Borderline abnormal echo consistent with hypertensive heart disease * 7. Observation for asymptomatic PVCs appears to be benign based on normal LV systolic function and no significant structural heart disease * Plan * 1. I recommended patient to discontinue Lasix and potassium and start Dyazide 1 tablet daily * 2. I advised the patient to have a blood pressure check and a BMP in 4 to 6 weeks * 3. If blood pressure remains elevated will consider adding GREG inhibitors * 4. I counseled the patient at great length regarding salt restriction, avoiding caffeinated drinks,exercise, dietary modification and DASH diet * 5. I advised her to address her other issues and depression with her PCP * 6. We will see her back in the office in 3 to 4 months [facility] [employer] DO Work Phone: History of Present illness Narrative* Here for follow- up and continue management for hypertension Billy was started Dyazide. She reportsher blood pressure seem to be going too low and she feels a little bit lightheaded. * Assessment * 1. Hypertension appears to be running on the low range * Plan * Reduce Dyazide to every other day. Continue to monitor blood pressure call if not better [facility] DO Work Phone: Hospital Discharge instructions Additional Instructions DISCHARGE INSTRUCTIONS FOR COLONOSCOPY WHAT TO EXPECT: - You may feel full, gassy or cramping after your procedure. In some cases, this may be from a few hours to a day. Walking may help relieve the discomfort. - You should begin to recover from anesthesia within 1 hour of the procedure, however may feel groggy for the next 24 hours. DO's AND DON'Ts: - Call your doctor right away if you have a hard abdomen, severe pain, are passing lots of bright red blood or clots. - Call your doctor if you develop any rashes, hives or difficulty breathing. - Let your doctor know if you have not had a bowel movement by 3 days after your procedure. - If you take 81 mg aspirin for your heart it is safe to resume this medication. - If you take other blood thinner medications your doctor will instruct you when these can safely be resumed. - Do NOT drive for 24 hours. - Do NOT operate machinery such as power tools, lawn mowers, snow blowers, sewing machines, etc. for 24 hours. - Avoid alcoholic beverages and drugs for allergies, nerves, or sleep. - Do NOT stay alone. Do NOT leave your child unattended. - Do NOT make important personal or business decisions or sign any legal documents. - Eat solid foods and drink liquids in smaller amounts than usual until normal appetite returns. If you should experience an upset stomach, liquids high in sugar content (soda, Preston-Aid, non-acid juices) are recommended. - You can resume normal activities tomorrow. FOLLOW UP & RECOMMENDATIONS: -Notify the doctor if you have any problems. -Repeat colonoscopy in 10 years -Follow up pathology -Follow up in the office as scheduled -Office number [phone]. [facility] Work Phone: Reason for visit Narrative* Auth/Cert Specialty Diagnoses / Procedures Referred By Casper t Referred To Contact Diagnoses Kidney stone KIDNEY STONES Procedures CT CYSTO/URETERO W/LITHOTRIPSY &INDWELL STENT INSRT CYSTOSCOPY URETEROSCOPY LASER-WITH [facility] Bertha Hirsch MD [address], [address] [place] [address] [address] [place] [address] Referral ID Status Reason Start Date Expiration Date Visits Re quested Visits Authorized [id number] 1 1 [facility] Phone: reason for visit Narrative* Auth/Cert Specialty Diagnoses / Procedures Referred By Contac t Referred To Contact General Surgery Diagnoses IDONNE (obstructive sleep apnea) DIONNE (obstructive sleep apnea) [G47.33] Procedures PALATOPHARYNGOPLASTY UVULOPALATOPHARYNGOPLAS TY Yi Moreno MD [address] [place], [place] [address], [place] [address] THE [employer]: [employer] [address] [facility] [place] [address] Phone: [phone] Referral ID Status Reason Start Date Expiration Date Visits Re quested Visits Authorized [id number] 3 3 [facility] for visit NarrativeRAPID COVID TEST FOR PROCEDURE, [facility] COVID voluntary/[employer] [email or web address] Other Family History No Family History Records FoundUnknown Family Member Name Dates Details Family history of myocardial infarction: Father, Sister(V17.3, Z82.49) Status:Active Family history of malignant neoplasm of prostate: Father(V16.42, Z80.42) Status:Active Family history of malignant neoplasm of vulva: Mother(V16.49, Z80.49) Status:Active Family history of dementia: Mother(V17.2, Z81.8) Status:Active Unknown Family Member Name Dates Details Family history of myocardial infarction: Father, Sister(V17.3, Z82.49) Status:Active Family history of malignant neoplasm of prostate: Father(V16.42, Z80.42) Status:Active Family history of malignant neoplasm of vulva: Mother(V16.49, Z80.49) Status:Active Family history of dementia: Mother(V17.2, Z81.8) Status:Active Chief Complaint ISABELLE HEWITT is being seen for hypertension. Summary Purpose Advance Directives No Advanced Directives Records FoundLatest Code Status on File Code Status Date Activated Date Inactivated Comments Full Code 01/05/2022 1:12 PM Latest Code Status on File Code Status Date Activated Date Inactivated Comments Full Code 01/05/2022 1:12 PM 01/05/2022 6:35 PM Latest Code Status on File Code Status Date Activated Date Inactivated Comments Full Code 02/25/2022 6:15 PM Documentation of decision pr ocess for this code status: Discussed with patient or surrogate. Thi s is the code status chosen by the patient/surrogate. Latest Code Status on File Code Status Date Activated Date Inactivated Comments Full Code 02/25/2022 6:15 PM 02/26/2022 4:28 PM Advance Directive Response Recorded Date/ Time Advance Directives No March 22 7:42am Latest Code Status on File Code Status Date Activated Date Inactivated Comments Full Code 02/25/2022 6:15 PM 02/26/2022 4:28 PM Latest Code Status on File Code Status Date Activated Date Inactivated Comments Full Code 07/14/2022 3:16 PM Documentation of decision pr ocess for this code status: Patient and surrogate unable or unavailable to discuss. There is no previous documentation of code status. Defaulting to Full Code Full Code 02/25/2022 6:15 PM 02/26/2022 4:28 PM Latest Code Status on File Code Status Date Activated Date Inactivated Comments Full Code 07/14/2022 3:16 PM 07/17/2022 2:43 PM Full Code 02/25/2022 6:15 PM 02/26/2022 4:28 PM Latest Code Status on File Code Status Date Activated Date Inactivated Comments Full Code 07/14/2022 3:16 PM 07/17/2022 2:43 PM Question Answer Comments Documentation of decision process for this code status: Patient and surrogate unable or unavailable to discuss. There is no previous documentation of code status. Defaulting to Full Code Code Status History Code Status Date Activated Date Inactivated Comments Full Code 02/25/2022 6:15 PM 02/26/2022 4:28 PM Question Answer Comments Documentation of decision process for this code status: Discussed with patient or surrogate. This is the code status chosen by the patient/surrogate. Latest Code Status on File Code Status Date Activated Date Inactivated Comments Full Code 01/05/2022 1:12 PM 01/05/2022 6:35 PM Advance Directive Response Recorded Date/ Time Advance Directives No March 22 6:42am Chief Complaint and Reason for Visit Chief Complaint redocumentation of O SA post surgery Chief Complaint g47.33 Chief Complaint qualify for inspire surgery with/dr moreno Chief Complaint r19.7 Chief Complaint r19.7 Diarrhea, Fecal Urgency Reason for Referral Specialty Diagnoses / Procedures Referred By Casper diaz Referred To Contact Oral Surgery Diagnoses DIONNE (obstructive sleep apnea) Yi Moreno MD [address] [place] [address] Rikki Rodrigues DMD, MD [address] [place], [place] [id number] Referral ID Status Reason Start Date Expiration Date V isits Requested Visits Authorized [id number] Pending Review 05/26/2022 05/26/2023 3 3 Scheduling Instructions Please call the [facility] at [facility] at to schedule an appointment if one was not made for you today. Question Answer Patient to be evaluated for: Orthognathic/Jaw Surgery Additional Source Comments INFORMATION SOURCE (unrecogn ized section and content) DATE CREATED AUTHOR 12/03/2021 [employer] DATE CREATED AUTHOR AUTHOR'S ORGANIZ ATION 01/31/2023 [facility] DATE CREATED AUTHOR AUTHOR'S ORGANIZ ATION 01/31/2023 [employer] DATE CREATED AUTHOR AUTHOR'S ORGANIZ ATION 02/25/2023 [facility] DATE CREATED AUTHOR AUTHOR'S ORGANIZ ATION 03/11/2023 [facility] DATE CREATED AUTHOR AUTHOR'S ORGANIZ ATION 08/19/2023 [facility] Care Teams (unrecognized sec tion and content) Team Status: Active Member Role Status Dates Gena Kirby Primary Care Provider Active Team Status: Inactive Member Role Status Dates Gena Kirby Primary Care Provider Active Yi Moreno MD Referring Provider Active Wiley Mcmanus MD Attending Provider Active Awake Overnight Monitor Relationship Specialty Start Date End Date Gena Kirby[address] [place] [address] PCP - General Nurse Practitioner 11/30/21 Awake Overnight Monitor Relationship Specialty Start Date End Date Gena Kirby[address] [place] [address] PCP - General Nurse Practitioner 11/30/21 Awake Overnight Monitor Relationship Specialty [place] [address] PCP - General Nurse Practitioner 11/30/21 Awake Overnight Monitor Relationship Specialty Start Date End Date Yi Moreno MD [address] [id number] Physician Otolaryngology 01/23/22 Awake Overnight Monitor Relationship Specialty Start Date End Date Yi Moreno MD [address] [place] [address] Physician Otolaryngology 01/23/22 Awake Overnight Monitor Relationship Specialty Start Date End Date Yi Moreno MD [address] [place] [address] 42105 Physician Otolaryngology 01/23/22 Awake Overnight Monitor Relationship Specialty Start Date End Date Yi Moreno MD [address] [place] [address] 77483 Physician Otolaryngology 01/23/22 Awake Overnight Monitor Relationship Specialty Start Date End Date Gena Kirby [facility] [place] [address] PCP - General Nurse Practitioner 11/30/21 Awake Overnight Monitor Relationship Specialty Start Date End Date Yi Moreno MD [address] [place] [address] 12171 Physician Otolaryngology 01/23/22 Awake Overnight Monitor Relationship Specialty Start Date End Date Yi Moreno MD [address] [place] [address] 37866 Physician Otolaryngology 01/23/22 Awake Overnight Monitor Relationship Specialty Start Date End Date Yi Moreno MD [address] [place] [address] 95186 Physician Otolaryngology 01/23/22 Awake Overnight Monitor Relationship Specialty Start Date End Date Yi Moreno MD [address] [place] [address] 07175 Physician Otolaryngology 01/23/22 Team Status: Inactive Member Role Status Dates Gena Kirby Primary Care Provider Active Wiley Mcmanus MD Attending Provider Active Yi Moreno MD Referring Provider Active Awake Overnight Monitor Relationship Specialty Start Date End Date Yi Moreno MD [address] [place] [address] 22075 Physician Otolaryngology 01/23/22 Awake Overnight Monitor Relationship Specialty Start Date End Date Yi Moreno MD [address] [place] [address] 72688 Physician Otolaryngology 01/23/22 Rikki Rodrigues DMD, MD [address] [place] [address] 17719 Physician Oral & Maxillofacial Surgery 06/26/22 Awake Overnight Monitor Relationship Specialty Start Date End Date Yi Moreno MD [address] [place] [address] 25290 Physician Otolaryngology 01/23/22 Awake Overnight Monitor Relationship Specialty Start Date End Date Yi Moreno MD [address] [place] [address] 23511 Physician Otolaryngology 01/23/22 Rikki Rodrigues DMD, MD [address] [place] [address] 88973 Physician Oral & Maxillofacial Surgery 06/26/22 Awake Overnight Monitor Relationship Specialty Start Date End Date Yi Moreno MD [address] [place] [address] 19300 Physician Otolaryngology 01/23/22 Rikki Rodrigues DMD, MD [address] [place] [address] 04715 Physician Oral & Maxillofacial Surgery 06/26/22 Awake Overnight Monitor Relationship Specialty Start Date End Date Yi Moreno MD [address] [place] [address] 84278 Physician Otolaryngology 01/23/22 Rikki Rodrigues DMD, MD [address] [place] [address] 74597 Physician Oral & Maxillofacial Surgery 06/26/22 Awake Overnight Monitor Relationship Specialty Start Date End Date Yi Moreno MD [address] [place] [address] 56662 Physician Otolaryngology 01/23/22 Awake Overnight Monitor Relationship Specialty Start Date End Date Yi Moreno MD [address] [place] [address] 77071 Physician Otolaryngology 01/23/22 Rikki Rodrigues DMD, MD [address] [place] [address] 56156 Physician Oral & Maxillofacial Surgery 06/26/22 Awake Overnight Monitor Relationship Specialty Start Date End Date Yi Moreno MD [address] [place] [address] 46079 Physician Otolaryngology 01/23/22 Rikki Rodrigues DMD, MD [address] [place] [address] 77184 Physician Oral & Maxillofacial Surgery 06/26/22 Awake Overnight Monitor Relationship Specialty Start Date End Date Yi Moreno MD [address] [place] [address] 74726 Physician Otolaryngology 01/23/22 Rikki Rodrigues DMD, MD [address] [place] [address] 71485 Physician Oral & Maxillofacial Surgery 06/26/22 Awake Overnight Monitor Relationship Specialty Start Date End Date Yi Moreno MD [address] [place] [address] 36309 Physician Otolaryngology 01/23/22 Rikki Rodrigues DMD, MD [address] [place] [address] 93187 Physician Oral & Maxillofacial Surgery 06/26/22 Awake Overnight Monitor Relationship Specialty Start Date End Date Yi Moreno MD [address] [place] [address] 25830 Physician Otolaryngology 01/23/22 Rikki Rodrigues DMD, MD [address] [place] [address] 96942 Physician Oral & Maxillofacial Surgery 06/26/22 Gena Holbrook APRN-GREASER HELPER [address] [place] [address] 47658 SHAREPOINT CONSULTANT Anesthesiology 07/24/22 Awake Overnight Monitor Relationship Specialty Start Date End Date Yi Moreno MD [address] [place] [address] 89559 Physician Otolaryngology 01/23/22 Rikki Rodrigues DMD, MD [address] [place] [address] 06380 Physician Oral & Maxillofacial Surgery 06/26/22 Gena Holbrook APRN-GREASER HELPER [address] [place] [address] 51729 SHAREPOINT CONSULTANT Anesthesiology 07/24/22 Awake Overnight Monitor Relationship Specialty Start Date End Date Gena Kirby[address] [place] [address] PCP - General Nurse Practitioner 11/30/21 Awake Overnight Monitor Relationship Specialty Start Date End Date Yi Moreno MD [address] [place] [address] 27084 Physician Otolaryngology 01/23/22 Rikki Rodrigues DMD, MD [address] [place] [address] 31517 Physician Oral & Maxillofacial Surgery 06/26/22 Gena Holbrook APRN-GREASER HELPER [address] [place] [address] 06644 SHAREPOINT CONSULTANT Anesthesiology 07/24/22 Awake Overnight Monitor Relationship Specialty Start Date End Date Yi Moreno MD [address] [place] [address] 11620 Physician Otolaryngology 01/23/22 Rikki Rodrigues DMD, MD [address] [place] [address] 70513 Physician Oral & Maxillofacial Surgery 06/26/22 Gena Holbrook APRN-GREASER HELPER [address] [place] [address] 47460 SHAREPOINT CONSULTANT Anesthesiology 07/24/22 Awake Overnight Monitor Relationship Specialty Start Date End Date Gena Kirby[address] [place] [address] PCP - General Nurse Practitioner 11/30/21 Awake Overnight Monitor Relationship Specialty Start Date End Date Yi Moreno MD [address] [place] [address] 07020 Physician Otolaryngology 01/23/22 Rikki Rodrigues DMD, MD [address] [place] [address] 81907 Physician Oral & Maxillofacial Surgery 06/26/22 Gena Holbrook APRN-GREASER HELPER [address] [place] [address] SHAREPOINT CONSULTANT Anesthesiology 07/24/22 Team Status: Inactive Member Role Status Dates Gena Kiryb Primary Care Provider Active Wiley Mcmanus MD Attending Provider Active Team Status: Inactive Member Role Status Dates Gena Kirby Primary Care Provider Active Kar Lyman APRN Attending Provider Active Team Status: Inactive Member Role Status Dates Gena Kirby Primary Care Provider Active David Martinez MD Attending Provider Active Scheduled Active and Recently Administ ered Medications (unrecognized section and content) Medication Order 01/03/2022 01/04/2022 01/05/2022 acetaminophen (TYLENOL) tablet 650 mg (COMPLETED) 650 mg, Oral, ONCE, 1 dose, On Tue01/05/22 at 1330, Maximum dose of acetaminophen is 4000 mg from all sources in 24 hours., Pre-op (day of surgery) 1353 (Given - Provid er: Lucinda Rosario RN) ciprofloxacin (CIPRO) IVPB 400 mg (COMPLETED) 400 mg, IntraVENous, HANDY WORKER TO O.R., 1 dose, On Tue01/05/22 at 1330, Antimicrobial Indications: Surgical Prophylaxis, Administer within 1 hour prior to incision, Pre-op (day of surgery) 1456 (New Bag - Prov ider: Silvestre Britt RN)1600 (Stopped - Provider: Randa Yanes RN) dimenhyDRINATE (DRAMAMINE) tablet 50 mg (COMPLETED) 50 mg, Oral, ONCE, 1 dose, On Tue01/05/22 at 1330, Pre-op (day of surgery) 1353 (Given - Provid er: Lucinda Rosario RN) lactated ringers infusion (COMPLETED) IntraVENous, at 100 mL/hr, ONCE, On Tue01/05/22 at 1330, For 1 dose, Pre-op (day of surgery) 1352 (New Bag - Prov ider: Lucinda Rosario RN) sodium chloride flush 0.9 % injection 5-40 mL 5-40 mL, IntraVENous, EVERY 12 HOURS SCHEDULED (2 times per day), First dose on Tue01/05/22 at 2100, Until Discontinued, For Line Patency: Peripheral IV = 5 mL; Midline or Central Line = 10 mL/lumen. If following IV push medication, administer flush at same rate as the IV push. Flush volume is determined by type of infusion therapy being given. For non-viscous solutions use: Peripheral IV = 5 mL Midline or Central Line = 10 mL/lumen For viscous solutions (i.e. blood components, parenteral nutrition, contrast media, or after obtaining blood sample) use: Peripheral IV = 10 mL Midline or Central Line = 20 mL/lumen, PACU only 2100 (Due) Continuous Medication Order 01/03/2022 01/04/2022 01/05/2022 lactated ringers infusion IntraVENous, at 125 mL/hr, CONTINUOUS, Starting on Tue01/05/22 at 1330, Pre-op (day of surgery) 1459 (New Bag - Prov ider: KATHRIN Maldonado CRNA)1545 (Stopped - Provider: KATHRIN Maldonado CRNA) PRN Medication Order 01/03/2022 01/04/2022 01/05/2022 0.9 % sodium chloride infusion IntraVENous, at 5-250 mL/hr, PRN, if patient receiving piggyback infusions and maintenance fluids are not ordered OR KVO fluids to protect IV site / prevent frequent line interruptions/ long duration, Starting on Tue01/05/22 at 1558, For piggyback infusion, administer at same rate as piggyback for a total of 25 mL. Enter 25 mL into dose field and piggyback rate into rate field of order. If piggyback is infusing at a rate less than 100 mL/hr, enter 25 mL into dose field and 100 mL/hr into rate field of order. For KVO fluids, enter rate of 20 mL/hr or less into rate field of order., PACU only fentaNYL (SUBLIMAZE) injection 50 mcg 50 mcg, IntraVENous, EVERY 5 MIN PRN, 2 doses, Starting on Tue01/05/22 at 1558, Until Discontinued, Pain Severe (7-10), For Phase I. If Phase II oral narcotics have been administered in the last 60 minutes, do not administer IV narcotics unless specifically approved by provider., PACU only lidocaine (XYLOCAINE) 2 % uro-jet (CANCELED) PRN, Starting on Tue01/05/22 at 1539, Intra-op 1539 (Given - Provid er: Bertha Hirsch MD - Comment: urethra) metoclopramide (REGLAN) injection 10 mg 10 mg, IntraVENous, ONCE PRN, 1 dose, Starting on Tue01/05/22 at 1558, Until Tue01/05/22 at 2359, Nausea, Secondary antiemetic therapy., PACU only ondansetron (ZOFRAN) injection 4 mg 4 mg, IntraVENous, ONCE PRN, 1 dose, Starting on Tue01/05/22 at 1558, Until Tue01/05/22 at 2359, Nausea, Initial antiemetic therapy., PACU only oxyCODONE (ROXICODONE) immediate release tablet 10 mg(Linked Group 1) 10 mg, Oral, PRN, 1 dose, Starting on Tue01/05/22 at 1558, Until Tue01/05/22 at 2359, Pain Severe (7-10), PHASE II, PACU only oxyCODONE (ROXICODONE) immediate release tablet 5 mg(Linked Group 1) 5 mg, Oral, PRN, 1 dose, Starting on Tue01/05/22 at 1558, Until Tue01/05/22 at 2359, Pain Moderate (4-6), PHASE II, PACU only sodium chloride flush 0.9 % injection 5-40 mL 5-40 mL, IntraVENous, PRN, Starting on Tue01/05/22 at 1558, Until Discontinued, Line Care, After every IV line use, For Line Patency: Peripheral IV = 5 mL; Midline or Central Line = 10 mL/lumen. If following IV push medication, administer flush at same rate as the IV push. Flush volume is determined by type of infusion therapy being given. For non-viscous solutions use: Peripheral IV = 5 mL Midline or Central Line = 10 mL/lumen For viscous solutions (i.e. blood components, parenteral nutrition, contrast media, or after obtaining blood sample) use: Peripheral IV = 10 mL Midline or Central Line = 20 mL/lumen, PACU only Linked Groups Order Group 1: oxyCODONE (ROXICODONE) immediate release tablet 5 mgJump to med 5 mg, Oral, PRN, 1 dose, Starting on Tue01/05/22 at 1558, Until Tue01/05/22 at 2359, Pain Moderate (4-6)
PHASE II
PACU only Or oxyCODONE (ROXICODONE) immediate release tablet 10 mgJump to med 10 mg, Oral, PRN, 1 dose, Starting on Tue01/05/22 at 1558, Until Tue01/05/22 at 2359, Pain Severe (7-10)
PHASE II
PACU only Scheduled Medication Order 02/24/2022 02/25/2022 02/26/2022 atenolol (TENORMIN) tablet 100 mg, Oral, DAILY, First dose (after last modification) on Tue02/25/22 at 2000, Until Discontinued 2105 (Given - Provider: Ashvin Mims) 0850 (Given - Provider: Iglesia Amin RN) atorvastatin (LIPITOR) tablet 20 mg, Oral, AT BEDTIME, First dose on Tue02/26/22 at 2200, Until Discontinued 220 (Due) docusate sodium (COLACE) capsule 100 mg, Oral, 2 TIMES DAILY, First dose on Tue02/25/22 at 1430, Until Discontinued, Post-op 1430 (Hold/Not Given - Provider: Feliz Pittman RN - Reason: Patient refused)2054 (Given - Provider: Ashvin Mims) 0851 (Given - Provider: Iglesia Amin RN)2100 (Due) Famotidine (PF) (PEPCID) 20 MG/2ML injection 20 mg, Intravenous Push, 2 TIMES DAILY, First dose on Tue02/25/22 at 1430, Until Discontinued, Post-op 1430 (Hold/Not Given - Provider: Feliz Pittman RN - Reason: Patient refused)2054 (Given - Provider: Ashvin Mims) 0850 (Given - Provider: Iglesia Amin RN)2100 (Due) norethindrone (MICRONOR) tablet TABS 1 Tablet, Oral, DAILY, First dose on Tue02/26/22 at 0900, Until Discontinued 0900 (Hold/Not Given - Provider: Iglesia Amin RN - Reason: Other - Comment: pt's home supply med, pt stated she will take medm at home.) OLANZapine (ZyPREXA) tablet 5 mg, Oral, DAILY, First dose on Tue02/26/22 at 0900, Until Discontinued 0900 (Hold/Not Given - Provider: Iglesia Amin RN - Reason: Patient refused - Comment: pt takes at HS) senna 8.8 MG/5ML oral syrup 8.8 mg (5 mL), Oral, AT BEDTIME, First dose on Tue02/25/22 at 2200, Until Discontinued, Post-op 2100 (Given - Provider: Ashvin Mims) 2200 (Due) sucralfate (CARAFATE) 1 GM/10ML oral suspension 1 g, Oral, 4 TIMES DAILY BEFORE MEALS & AT BEDTIME, First dose on Tue02/25/22 at 1700, Until Discontinued, Post-op 1700 (Hold/Not Given - Provider: Feliz Pittman RN - Reason: Patient refused)2100 (Given - Provider: Ashvin Mims) 0850 (Given - Provider: Iglesia Amin RN)1206 (Given - Provider: Iglesia Amin RN)1700 (Due)2200 (Due) tamsulosin (FLOMAX) capsule 0.4 mg, Oral, DAILY, First dose on Tue02/25/22 at 1430, Until Discontinued, Post-op 1430 (Hold/Not Given - Provider: Feliz Pittman RN - Reason: Patient refused) 0850 (Hold/Not Given - Provider: Iglesia Amin RN - Reason: Patient refused) venlafaxine (EFFEXOR XR) 24 hour capsule 150 mg, Oral, DAILY WITH BREAKFAST, First dose on Tue02/26/22 at 0900, Until Discontinued 0850 (Given - Provid er: Iglesia Amin RN) Continuous Medication Order 02/24/2022 02/25/2022 02/26/2022 lactated ringers iv infusion Intravenous, at 75 mL/hr, CONTINUOUS, Starting on Tue02/25/22 at 0830, Until Discontinued 184 (IV New Bag - Provider: Ashvin Mims) 0523 (IV New Bag - Provider: Martínez Johnson RN) PRN Medication Order 02/24/2022 02/25/2022 02/26/2022 acetaminophen (TYLENOL) tablet 650 mg, Oral, EVERY 4 HOURS PRN, Starting on Tue02/25/22 at 1815, Until Discontinued, Mild Pain (pain score 1,2,3), Fever 38.5 C and higher, Post-op 2054 (Given - Provider: Ashvin Mims) bupivacaine (MARCAINE) 0.25 % injection (CANCELED) PRN, Starting on Tue02/25/22 at 1033, Until Tue02/25/22 at 1046, Intra-op 1033 (Given - Provider: Yi Moreno MD - Comment: intraorally, mouth) clonazePAM (KlonoPIN) tablet 1 mg, Oral, 2 TIMES DAILY PRN, Starting on Tue02/26/22 at 0000, Until Discontinued, Anxiety HYDROmorphone (DILAUDID) 0.2 MG/ML injection 0.2 mg (CANCELED) 0.2 mg, Intravenous Push, PACU EVERY 15 MIN PRN X 4 DOSES, 4 doses, Starting on Tue02/25/22 at 1025, Until Tue02/25/22 at 1808, Moderate Pain (pain score 4,5,6), PACU Now 1134 (Given - Provider: Carolyn Verdugo RN) naloxone (NARCAN) 0.4 MG/ML injection 0.4 mg, Intravenous Push, PRN, Starting on Tue02/25/22 at 1423, Until Discontinued, Respiratory Rate Less Than 8 for adults and less than 12 for Peds or for suspected overdose, Post-op ondansetron (ZOFRAN) 4 MG/2ML injection 4 mg, Intravenous Push, EVERY 6 HOURS PRN, Starting on Tue02/25/22 at 1423, Until Tue03/01/22 at 1422, Nausea, Vomiting, Post-op oxybutynin (DITROPAN) 5 MG tablet 5 mg, Oral, 3 TIMES DAILY PRN, Starting on Tue02/25/22 at 1423, Until Discontinued, Urinary urgency/retention, Post-op 1723 (Hold/Not Given - Provider: Feliz Pittman RN - Reason: Patient refused) oxyCODONE (ROXICODONE) 5 mg/5 mL oral solution 5 mg, Oral, EVERY 4 HOURS PRN, Starting on Christen 02/25/22 at 1423, Until Discontinued, Moderate Pain (pain score 4,5,6), Post-op 0019 (Given - Provid er: Martínez Johnson RN)0550 (Given - Provider: Martínez Johnson RN)1203 (Given - Provider: Iglesia Amin RN) oxyCODONE (ROXICODONE) 5 mg/5 mL oral solution 10 mg, Oral, EVERY 4 HOURS PRN, Starting on Christen 02/25/22 at 1423, Until Discontinued, Severe Pain (pain score 7,8,9,10), Post-op 1439 (Given - Provider: Ailyn Son RN)1842 (Given - Provider: Ashvin Mims) Scheduled Medication Order 07/15/2022 07/16/2022 07/17/2022 acetaminophen (TYLENOL) 650 MG/20.3ML oral solution SF 650 mg, Oral, EVERY 4 HOURS, First dose on Christen 07/15/22 at 0830, Until Discontinued 0830 (Hold/Not Given - Provider: Lauren Crawford RN - Reason: Clinical contraindications)11 59 (Given - Provider: Lauren Crawford RN)1553 (Given - Provider: Lauren Crawford RN)2123 (Given - Provider: Lemuel Gilbert RN) 0030 (Hold/Not Given - Provider: Donya Lam RN - Reason: Patient sleeping)0348 (Given - Provider: Donya Lam RN)0811 (Given - Provider: Linh Fregoso RN)1226 (Given - Provider: Linh Fregoso RN)1704 (Given - Provider: Cleo Tao RN)2044 (Given - Provider: Lola Wyatt, CALISTA)2100 (Hold/Not Given - Provider: Lola Wyatt RN - Reason: Previously Administered) 0206 (Given - Provider: Lola Wyatt RN)0542 (Hold/Not Given - Provider: Lola Wyatt RN - Reason: Patient refused)0916 (Given - Provider: Penny Brown, RN)1400 (Due - Provider: Dulce Olson [facility])1800 (Due - Provider: Dulce Olson [facility])2200 (Due - Provider: Dulce Olson [facility]) acetaminophen (TYLENOL) tablet (CANCELED) 650 mg, Oral, EVERY 4 HOURS, First dose on Tue07/14/22 at 1530, Until Discontinued, ICU/Step Down 0346 (Given - Provider: Alon Cotton RN)0800 (Given - Provider: Lauren Crawford RN) ampicillin-sulbactam (Unasyn) 3000 mg in NS 100 mL ivpb 3,000 mg, Intravenous, EVERY 6 HOURS ANTIBIOTIC, 20 doses, First dose on Tue07/15/22 at 0830, Last dose on Tue07/20/22 at 0400 0900 (IV New Bag - Provider: Lauren Crawford RN)1553 (IV New Bag - Provider: Lauren Crawford RN)2123 (IV New Bag - Provider: Lemuel Gilbert RN) 0348 (IV New Bag - Provider: Donya Lam RN)0959 (IV New Bag - Provider: Linh Fregoso, CALISTA)2023 (Hold/Not Given - Provider: Lola Wyatt RN - Reason: Medication unavailable - Comment: Med initially due 1600.)2100 (IV New Bag - Provider: Lola Wyatt RN) 0406 (IV New Bag - Provider: Lola Wyatt RN)1000 (Hold/Not Given - Provider: Penny Brown RN - Reason: Loss of IV access)1600 (Due)2200 (Due) atenolol (TENORMIN) tablet (CANCELED) 100 mg, Oral, DAILY, First dose on Tue07/14/22 at 1800, Until Discontinued, ICU/Step Down 0800 (Given - Provider: Lauren Crawford RN) atorvastatin (LIPITOR) tablet 20 mg, Oral, DAILY, First dose on Tue07/14/22 at 1800, Until Discontinued, ICU/Step Down 0800 (Given - Provider: Lauren Crawford RN) 0811 (Given - Provider: Linh Fregoso RN) 0916 (Given - Provider: Penny Brown RN) chlorhexidine (PERIDEX) 0.12 % oral solution 15 mL, Swish & Spit, 2 TIMES DAILY, First dose on Tue07/14/22 at 1530, Until Discontinued, ICU/Step Down 0900 (Given - Provider: Lauren Crawford RN)2099 (Given - Provider: Lemuel Gilbert, RN) 08 (Given - Provider: Linh Fregoso, CALISTA)2042 (Given - Provider: Lola Wyatt RN) 09 (Given - Provider: Penny Brown RN)2099 (Due) dexamethasone (DECADRON) 4 MG/ML injection (COMPLETED) 8 mg, Intravenous Push, EVERY 8 HOURS, 3 doses, First dose on Tue07/14/22 at 1530, Last dose on Tue07/15/22 at 0900, ICU/Step Down 0109 (Given - Provider: Alon Cotton RN)0800 (Given - Provider: Lauren Crawford RN) dextrose 5 % and sodium chloride 0.45 % iv bolus (COMPLETED) 500 mL, at 50 mL/hr, Intravenous, FLUID BOLUS, 1 dose, On Tue07/16/22 at 0930 0959 (IV New Bag - Provider: Linh Fregoso RN) docusate sodium (COLACE) capsule 100 mg, Oral, 2 TIMES DAILY, First dose on Tue07/14/22 at 1530, Until Discontinued, ICU/Step Down 0800 (Given - Provider: Lauren Crawford RN)2123 (Given - Provider: Lemuel Gilbert, CALISTA) 08 (Given - Provider: Linh Fregoso RN)2045 (Hold/Not Given - Provider: Lola Wyatt RN - Reason: Patient refused) 0900 (Hold/Not Given - Provider: Penny Brown RN - Reason: Patient refused)2099 (Due) enoxaparin (LOVENOX) 40 MG/0.4ML injection 40 mg (CANCELED) 40 mg, Subcutaneous, DAILY, First dose on Tue07/14/22 at 1530, Until Discontinued, ICU/Step Down 0801 (Given - Provider: Lauren Crawford RN) enoxaparin (LOVENOX) 40 MG/0.4ML injection 40 mg 40 mg, Subcutaneous, DAILY, First dose on Tue07/16/22 at 0900, Until Discontinued 0811 (Given - Provider: Linh Fregoso RN) 0916 (Given - Provider: Penny Brown RN) famotidine (PEPCID) tablet 20 mg, Oral, 2 TIMES DAILY, First dose on Tue07/14/22 at 1530, Until Discontinued, ICU/Step Down 0800 (Given - Provider: Lauren Crawford RN)2123 (Given - Provider: Lemuel Gilbert RN) 0811 (Given - Provider: Linh Fregoso RN)2044 (Given - Provider: Lola Wyatt, CALISTA) 0916 (Given - Provider: Penny Brown RN)2100 (Due) insulin lispro (HumaLOG) 100 UNIT/ML injection 2-9 Units, Subcutaneous, 3 TIMES DAILY BEFORE MEALS, First dose on Tue07/15/22 at 1200, Until Discontinued 1200 (Hold/Not Given - Provider: Lauren Crawford RN - Reason: Clinical contraindications)17 04 (Given - Provider: Lauren Crawford RN) 0800 (Hold/Not Given - Provider: Linh Fregoso RN - Reason: Clinical contraindications)122 6 (Given - Provider: Linh Fregoso RN)1700 (Hold/Not Given - Provider: Cleo Tao RN - Reason: Not indicated) 0800 (Hold/Not Given - Provider: Penny Brown RN - Reason: Clinical contraindications)12 00 (Hold/Not Given - Provider: Penny Brown RN - Reason: Clinical contraindications)17 00 (Due) levothyroxine (SYNTHROID) tablet 50 mcg, Oral, BEFORE BREAKFAST, First dose on Tue07/14/22 at 1800, Until Discontinued, ICU/Step Down 0625 (Given - Provider: Alon Cotton RN) 0655 (Given - Provider: Donya Lam RN) 0409 (Given - Provider: Lola Wyatt, CALISTA)0542 (Hold/Not Given - Provider: Lola Wyatt RN - Reason: Previously Administered) metformin (GLUCOPHAGE) tablet 500 mg, Oral, DAILY, First dose on Tue07/14/22 at 1800, Until Discontinued, ICU/Step Down 0801 (Given - Provider: Lauren Crawford RN) 0812 (Given - Provider: Linh Fregoso RN) 0916 (Given - Provider: Penny Brown, CALISTA) OLANZapine (ZyPREXA ZYDIS) disintegrating tablet 10 mg, Oral, AT BEDTIME, First dose on Tue07/15/22 at 2200, Until Discontinued 2123 (Given - Provider: Lemuel Gilbert, RN) 204 (Given - Provider: Lola Wyatt, CALISTA)2100 (Hold/Not Given - Provider: Lola Wyatt RN - Reason: Previously Administered) 2200 (Due) oxybutynin (DITROPAN) 5 MG tablet 5 mg, Oral, 3 TIMES DAILY, First dose on Tue07/14/22 at 1800, Until Discontinued, ICU/Step Down 0625 (Given - Provider: Alon Cotton RN)1315 (Given - Provider: Lauren Crawford RN)212 (Given - Provider: Lemuel Gilbert, CALISTA) 0655 (Given - Provider: Donya Lam RN)1358 (Given - Provider: Cleo Tao RN)204 (Hold/Not Given - Provider: Lola Wyatt RN - Reason: Patient refused) 0409 (Hold/Not Given - Provider: Lola Wyatt RN - Reason: Patient refused)1400 (Due)2200 (Due) potassium phosphate 15 mmol injection in D5W (COMPLETED) 15 mmol, Intravenous, ONCE, 1 dose, On Tue07/16/22 at 1030 1135 (IV New Bag - Provider: Linh Fregoso RN) venlafaxine (EFFEXOR XR) 24 hour capsule 75 mg, Oral, DAILY, First dose on Tue07/14/22 at 1800, Until Discontinued, ICU/Step Down 0901 (Given - Provider: Lauren Crawford RN) 0811 (Given - Provider: Linh Fregoso, CALISTA) 0916 (Given - Provider: Penny Brown, RN) Continuous Medication Order 07/15/2022 07/16/2022 07/17/2022 dextrose 5 % and NaCl 0.45 % iv infusion Intravenous, at 75 mL/hr, CONTINUOUS, Starting on Tue07/16/22 at 0900, Until Tue07/19/22 at 0859 1000 (IV New Bag - Provider: Linh Fregoso RN) lactated ringers iv infusion (CANCELED) Intravenous, at 75 mL/hr, CONTINUOUS, Starting on Tue07/14/22 at 0630, Until Christen 07/15/22 at 0828 0000 (Rate Verify - Provider: Alon Cotton RN)0100 (Rate Verify - Provider: Alon Cotton RN)0200 (Rate Verify - Provider: Alon Cotton RN)0300 (Rate Verify - Provider: Alon Cotton RN)0400 (Rate Verify - Provider: Alon Cotton RN)0500 (Rate Verify - Provider: Alon Cotton RN)0600 (Rate Verify - Provider: Alon Cotton RN)0700 (Rate Verify - Provider: Alon Cotton RN)0747 (IV New Bag - Provider: Lauren Crawford RN)0800 (Rate Verify - Provider: Lauren Crawford RN)0830 (IV Stop - Provider: Lauren Crawford RN) PRN Medication Order 07/15/2022 07/16/2022 07/17/2022 bisacodyl (DULCOLAX) 5 MG enteric coated tablet 10 mg, Oral, DAILY PRN, Starting on Tue07/14/22 at 1516, Until Discontinued, Constipation, ICU/Step Down clonazePAM (KlonoPIN) tablet 1 mg, Oral, EVERY 12 HOURS PRN, Starting on Tue07/14/22 at 1732, Until Discontinued, Anxiety, ICU/Step Down 1840 (Given - Provider: Lauren Joe RN) ibuprofen (MOTRIN) tablet 600 mg, Oral, EVERY 6 HOURS PRN, Starting on Tue07/14/22 at 1516, Until Discontinued, Mild Pain (pain score 1,2,3), ICU/Step Down naloxone (NARCAN) 0.4 MG/ML injection 0.4 mg, Intravenous Push, PRN, Starting on Tue07/14/22 at 1329, Until Discontinued, Respiratory Rate Less Than 8 for adults and less than 12 for Peds or for suspected overdose ondansetron (ZOFRAN) 4 MG/2ML injection 4 mg, Intravenous Push, EVERY 6 HOURS PRN, Starting on Tue07/14/22 at 1516, Until Discontinued, Nausea, Vomiting, ICU/Step Down oxyCODONE (ROXICODONE) 5 mg/5 mL oral solution 5 mg, Oral, EVERY 4 HOURS PRN, Starting on Christen 07/15/22 at 0821, Until Discontinued, Mild Pain (pain score 1,2,3), Moderate Pain (pain score 4,5,6) 1704 (Given - Provider: Cleo Tao, RN) 0409 (Given - Provider: Lola Wyatt, CALISTA) oxyCODONE (ROXICODONE) 5 mg/5 mL oral solution 10 mg, Oral, EVERY 4 HOURS PRN, Starting on Christen 07/15/22 at 0821, Until Discontinued, Severe Pain (pain score 7,8,9,10) oxyCODONE immediate release tablet (CANCELED) 10 mg, Oral, EVERY 4 HOURS PRN, Starting on Tue07/14/22 at 1516, Until Christen 07/15/22 at 0828, Severe Pain (pain score 7,8,9,10), ICU/Step Down 0346 (Given - Provider: Alon Cotton, CALISTA)0800 (Given - Provider: Lauren Crawford RN) oxymetazoline (AFRIN) 0.05 % nasal solution 2 [place], Nasal, EVERY 4 HOURS PRN, Starting on Tue07/14/22 at 1516, Until Discontinued, Nosebleed, ICU/Step Down sodium chloride (OCEAN) 0.65 % nasal spray 1 [place], Nasal, EVERY 1 HOUR PRN, Starting on Tue07/14/22 at 1516, Until Discontinued, Congestion, Congestion due to dryness, ICU/Step Down Reason for Visit (unrecogniz ed section and content) Reason Comments New patient, to establish relationship S leep Apnea, Inspire Specialty Diagnoses / Procedures Referred By Contac t Referred To Contact Ent-Otolaryngology Diagnoses Sleep apnea, unspecified type Wiley Mcmanus MD [address] [place] [address] [facility] [address] [place], [place] [id number] Referral ID Status Reason Start Date Expiration Date Visits Requested Visits Authorized [id number] Pending Review [facility] Care-[facility] 01/01/2022 01/01/2023 3 3 Reason Onset Date Comments Pre-surgical Evaluation 02/11/2022 Pre-op C OVID testing Reason Onset Date Comments Pre-surgical Evaluation 02/17/2022 Pre-op C OVID testing Reason Onset Date Comments Pre-surgical Evaluation 02/24/2022 Pre-op C OVID testing - results Reason Comments Hospital follow-up Reason Comments New patient, to establish relationship Specialty Diagnoses / Procedures Referred By Casper diaz Referred To Contact Oral Surgery Diagnoses DIONNE (obstructive sleep apnea) Yi Moreno MD [address] [place] [address] Rikki Rodrigues DMD, MD [address] [place] [address] Referral ID Status Reason Start Date Expiration Date V isits Requested Visits Authorized [id number] Pending Review 05/26/2022 05/26/2023 3 3 Reason Comments Hospital follow-up Reason Onset Date Comments Pre-surgical Evaluation 07/05/2022 Pre-op C OVID testing not needed Reason Onset Date Comments Patient questions/concerns 07/09/2022 Patie nt asking what next step is after jaw surgery Reason Onset Date Comments Pre-surgical Evaluation 05/26/2022 Pre-op C OVID testing Reason Onset Date Comments Pre-surgical Evaluation 05/28/2022 Pre-op C OVID testing Specialty Diagnoses / Procedures Referred By Casper diaz Referred To Contact General Surgery Diagnoses DIONNE (obstructive sleep apnea) DIONNE (obstructive sleep apnea) [G47.33] Procedures RECONSTRUCTION, MANDIBULAR RAMI &/OR BODY, SAGITTAL SPLIT; W/INT RIGID FIXATION OPEN TREATMENT, PALATAL/MAXILLARY FRACTURE (LEFORT I TYPE); COMPLICATED, MULTIPLE APPROACHES LEFORTE I OSTEOTOMY OSTEOTOMY, SAGITTAL SPLIT, BILATERAL Rikki Rodrigues DMD, MD [address] [place] [address] [facility] [address] [place] [id number] Phone: [phone] Referral ID Status Reason Start Date Expiration Date Visits Re quested Visits Authorized [id number] 3 3 Reason Comments Post Op Check Goals (unrecognized section and content) Goals may be documented in a n alternate section FOR RECORDS PERTAINING TO PATIENTS WHO ARE OR HAVE BEEN ENROLLED IN A CHEMICAL DEPENDENCY/SUBSTANCEABUSE PROGRAM, SOME INFORMATION MAY BE OMITTED. This clinical summary was aggregated from multiple sources. Caution should be exercised in using it in the provision of clinical care. This summary normalizes information from multiple sources, and as a consequence, information in this document may materially change the coding, format and clinical context of patient data. In addition, data may be omitted in some cases. CLINICAL DECISIONS SHOULD BE BASED ON THE PRIMARY CLINICAL RECORDS. [facility] [employer] [facility]. provides no warranty or guarantee of the accuracy or completeness of information in this document.
[2023-08-24 17:29] LABS: Anion Gap 12.9; Calcium 9.1 mg/dL (8.5-10.1); Carbon Dioxide 27.5 mmol/L (21.0-32.0); Chloride 100 mmol/L (98-107); Estimated GFR (African America >60 (>=60); Estimated GFR (Non-African Ame 59 (>=60); Glucose 86 mg/dL (74-106); Potassium 3.4 mmol/L (3.5-5.1); Sodium 137 mmol/L (136-145)
== END 2023-08-24 16:38 | disposition home or self-care (01) ==
LOC: LAB 16:39
PROVIDERS: PCP Nurse Practitioner; Visit Provider Nurse Practitioner
DX: E87.6 Hypokalemia (principal)
CPT/HCPCS: 36415; 80048

== ENCOUNTER 2023-11-22 19:47 | Outpatient (REF) | payer OTHER, SELFPAY ==
--- OUTSIDE RECORDS SUMMARY | 2023-11-22 19:56 | XMS_ITS | CCD ---
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 Name Role Phone Gena Kirby Unavailable Unavailable Unavailable Gena Kirby Primary Care Provider [phone] Unavailable Primary Care Provider Unavailabl jacob Moreno MD, Yi Rebollar Unavailable Wiley Mcmanus Unavailable Yi Moreno MD Unavailable Gena Kirby Primary Care Provider MD Wiley Mcmanus Attending Provider MD Yi Moreno Referring Provider Isabel Sin Unavailable Lilia RITCHIE MD, Justin Unavailable Gena Corrales Unavailable [phone] Gena Kirby Primary Care Provider Yi Moreno MD Unavailable Lilia RITCHIE MD, Justin Unavailable [phone] Yusef MORRIS Gena Unavailable [phone] Gena Kirby Primary Care Provider MD Yi Moreno Referring Provider MD Wiley Mcmanus Attending Provider Laurita Corralesa Unavailable [phone] BRIAN KIRBYA Admitting Unavailable AICHHOLZ, TRACK REPAIRER GENA Attending Unavailable AICHHOLZ, TRACK REPAIRER GENA Consulting Unavailable AICHHOLZ, TRACK REPAIRER GENA Primary Care Unavailable KAVITHA ., DR ARIZA Attending Unavailable KAVITHA ., DR ARIZA Consulting Unavailable KAVITHA ., DR ARIZA Admitting Unavailable AICHHOLZ, TRACK REPAIRER GENA Primary Care Unavailable WEST, DR WILEY Bryant Consulting Unavailable KAVITHA ., DR ARIZA Attending Unavailable AICHHOLZ, TRACK REPAIRER GENA Primary Care Unavailable KAVITHA ., DR ARIZA Admitting Unavailable KAVITHA ., DR ARIZA Consulting Unavailable AICHHOLZ, TRACK REPAIRER GENA Primary Care Unavailable AICHHOLZ, TRACK REPAIRER GENA Admitting Unavailable AICHHOLZ, TRACK REPAIRER GENA Attending Unavailable AICHHOLZ, TRACK REPAIRER GENA Consulting Unavailable KAVITHA ., DR ARIZA Attending Unavailable AICHHOLZ, TRACK REPAIRER GENA Primary Care Unavailable KAVITHA ., DR ARIZA Admitting Unavailable KAVITHA ., DR ARIZA Admitting Unavailable KAVITHA ., DR ARIZA Attending Unavailable AICHHOLZ, TRACK REPAIRER GENA Primary Care Unavailable KAVITHA ., DR ARIZA Consulting Unavailable MARTIN YBARRA Consulting Unavailable MARGARITA II, BERTHA Consulting Unavailable KAVITHA ., DR ARIZA Attending Unavailable AICHHOLZ, TRACK REPAIRER GENA Primary Care Unavailable KAVITHA ., DR ARIZA Admitting Unavailable KAVITHA ., DR ARIZA Attending Unavailable AICHHOLZ, TRACK REPAIRER GENA Primary Care Unavailable KAVITHA ., DR ARIZA Admitting Unavailable KAVITHA ., DR ARIZA Consulting Unavailable KAVITHA ., DR ARIZA Admitting Unavailable KAVITHA ., DR ARIZA Attending Unavailable AICHHOLZ, TRACK REPAIRER GENA Primary Care Unavailable AICHHOLZ, TRACK REPAIRER GENA Primary Care Unavailable AICHHOLZ, TRACK REPAIRER GENA Attending Unavailable AICHHOLZ, TRACK REPAIRER GENA Admitting Unavailable AICHHOLZ, TRACK REPAIRER GENA Consulting Unavailable KAVITHA ., DR ARIZA Attending Unavailable KAVITHA ., DR ARIZA Consulting Unavailable AICHHOLZ, TRACK REPAIRER GENA Primary Care Unavailable KAVITHA ., DR ARIZA Admitting Unavailable ZIEBER, DR MADDI Wild Consulting Unavailable AICHHOLZ, TRACK REPAIRER GENA Consulting Unavailable AICHHOLZ, TRACK REPAIRER GENA Primary Care Unavailable AICHHOLZ, TRACK REPAIRER GENA Attending Unavailable AICHHOLZ, TRACK REPAIRER GENA Admitting Unavailable MISC, DR PETERS Admitting Unavailable MISC, DR DOCTOR Attending Unavailable MISC, DR PETERS Consulting Unavailable AICHHOLZ, TRACK REPAIRER GENA Primary Care Unavailable AICHHOLZ, TRACK REPAIRER GENA Primary Care Unavailable AICHHOLZ, TRACK REPAIRER GENA Attending Unavailable AICHHOLZ, TRACK REPAIRER GENA Admitting Unavailable AICHHOLZ, TRACK REPAIRER GENA Consulting Unavailable PROVIDER, UNKNOWN Admitting Unavailable PROVIDER, UNKNOWN Attending Unavailable YI MORENO Referring Unavailabl e MAGGIEBEC, YI Rebollar Admitting Unavailabl e YI MORENO Attending Unavailabl [...] Referring Unavailable YI MORENO Admitting Unavailabl e YI MORENO Attending Unavailabl e CLEMOW, RIKKI Admitting Unavailable CLEMOW, RIKKI Attending Unavailable PROVIDER, UNKNOWN Admitting Unavailable PROVIDER, UNKNOWN Attending Unavailable LILIA, RIKKI Referring Unavailable PROVIDER, UNKNOWN Admitting Unavailable PROVIDER, UNKNOWN Attending Unavailable PATIENT, SELF Referring Unavailable PROVIDER, UNKNOWN Admitting Unavailable PROVIDER, UNKNOWN Attending Unavailable PROVIDER, UNKNOWN Admitting Unavailable PROVIDER, UNKNOWN Attending Unavailable YI MORENO Referring Unavailabl e HERMES ERNST~[id number] Attending Unavailable HERMES ERNST~[id number], HERMES Monroy Admitting Unavailable YI SYKES DO Consulting Unavailable AA NO PCP, NO PCP Primary Care Unavailable YI SYKES DO Consulting Unavailable Gena Kirby Primary Care Provider [phone] MD Wiley Mcmanus Attending Provider Louise Johnson Unavailable Majo Lyman Unavailable Gena Kirby Primary Care Provider [phone] KATHRIN Lyman Attending Provider MD David Martinez Attending Provider Asaad, Imad Unavailable GENA KIRBY Attending Unavailable MD Wiley Mcmanus Attending Provider [phone] Gena Kirby Primary Care Unavailable Wiley Mcmanus Admitting Unavailable Wiley Mcmanus Attending Unavailable Gena Kirby Primary Care Unavailable Majo Lyman Admitting Unavailable Majo Lyman Attending Unavailable Kofi, Gena Sina Primary Care Unavailable Asaad, Imad Admitting Unavailable David Martinez Attending Unavailable Wiley Mcmanus Attending Unavailable Gena Kirby Primary Care Unavailable Wiley Mcmanus Admitting Unavailable Wiley Mcmanus Attending Unavailable Yi Moreno Referring Unavailable Kofi, Gena J Primary Care Unavailable Wiley Mcmanus Admitting Unavailable ELIN BALLARD Referring Unavailable AICHHOLZ, GENA J. Primary Care Unavailable ELIN BALLARD Referring Unavailable AICHHOLZ, GENA J. Primary Care Unavailable ELIN BALLARD Referring Unavailable AICHHOLZ, GENA J. Primary Care Unavailable ELIO ELIN W Referring Unavailable AICHHOLZ, GENA J. Primary Care Unavailable ELIN BALLARD W Referring Unavailable AICHHOLZ, GENA J. Primary Care Unavailable MAJO CATALAN Attending Unavailable LLOYD RAMESH Referring Unavailable LLOYD RAMESH Primary Care Unavailable MAJO CATALAN Attending Unavailable DOMITILA, LLOYD Fleming Referring Unavailable LLOYD RAMESH A Primary Care Unavailable Joelhfreddyz, Gena J Primary Care Provider Medications Current Medications Medication Drug Class(es) Dates [...] Start: 02-25-2022 take 2 tablets by mo [facility] every four hours as needed acetaminophen (TYLENOL) 325 mg tablet Take 2 Tablets by mouth every 4 hours as needed. 30 Tablet 0 02/26/2022 Active Start: 02-25-2022 [facility] as needed for pain [...] 1530, Last dose on Tue07/14/22 at 1800 atenolol 100 mg oral tablet (20 sources) beta-Adrenergic Mami Start: 10-14-2023 take 100 mg by mouth once daily Atenolol Active 100 MG PO Daily October 14, 2023 12:00am Start: 07-14-2022 End: 07-15-2022 take 100 mg [...] tablet (20 sources) HMG-CoA Reductase Inhibitor Start: 10-14-2023 take 20 mg by mouth once daily Atorvastatin Active 20 MG PO Daily October 14, 2023 12:00am Start: 07-14-2022 take 20 mg by mouth once daily 20 mg, Oral, DAILY, First dose on Tue07/14/22 at 1800, Until Discontinued, ICU/Step Down Start: 02-26-2022 atorvastatin ( LIPITOR) tablet Start: 01-01-2022 atorvastatin ( LIPITOR) 20 mg tablet Take 20 mg by mouth. 0 01/01/2022 Active budesonide 3 mg delayed release oral capsule (4 sources) Corticosteroid Start: 10-14-2023 Budesonide Act alisia MG PO October 14, 2023 12:00am FreeTextSi tabs daily for 60 days, 2 tabs daily for 14 days, 1 tab daily for 14 days Orally Once a day; Note: Source Status: Taking; Refills: 0; Qty: 222 Capsule; Provider: Juan Hernandez Start: 08-10-2023 Budesonide 3 M G 3 [...] ICU/Step Down cholecalciferol 0.05 mg oral capsule (5 sources) Vitamin D Start: 10-14-2023 take 1 capsule by mouth once daily Cholecalciferol (Vitamin D3) Active 1 CAP PO Daily October 14, 2023 12:00am FreeTextSi capsule Orally Once a day; Note: Source Status: Taking; Provider: Yonathan Diaz ( ) take 1 capsule by [facility] every twenty-four hours Vitamin D3 50 MCG (1999 UT) 1 capsule Orally Once a day Active citric acid 68.6 MG/ML / magnesium oxide 20 MG/ML / picosulfate sodium 0.0571 MG/ML Oral Solution [Clenpiq] (1 source) Start: 06-30-2023 take 1 dose by mouth once daily Clenpiq 10-3.5-12 MG-GM -GM/175ML 175 mL the first dose at 3pm and second dose at 9pm Orally Once a day for 1 days Jun, Active clenpiq 10-3.5-12 mg-gm -gm/175ml solution (3 sources) Start: 06-30-2023 take 1 dose by mouth once daily Clenpiq 10-3.5-12 MG-GM -GM/175ML 175 mL the first dose at 3pm and second dose at 9pm Orally Once a day for 1 days Jun, Active clonazePAM 1 mg oral tablet (20 sources) Benzodiazepine Start: 10-14-2023 Clonazepam Act alisia MG PO October 14, 2023 12:00am FreeTextSi tablet Orally twice as needed; Note: Source Status: Taking; Provider: Yonathan Diaz ( ) Start: 07-14-2022 take 1 mg by mouth e very twelve hours as needed 1 mg, Oral, EVERY 12 HOURS PRN, Starting on Tue07/14/22 at 1732, Until Discontinued, Anxiety, ICU/Step Down Start: 01-06-2022 take 1 tablet by rosy every twelve hours as needed clonazePAM (KlonoPIN) 1 MG tablet Take 1 mg by mouth every 12 hours as needed. 0 01/06/2022 Active take 1 tablet by rosy twice daily as needed clonazePAM (KLONOPIN) 1 MG tablet Take 1 tablet by mouth 2 times daily as needed. 0 Active take 1 tablet by rosy once daily as needed KlonoPIN 1 MG Oral Tablet TAKE 1 TABLET Daily prn Quantity: 0 Refills: 0 Ordered: 14-Oct-2021 DO Active dicyclomine hydrochloride 10 mg oral capsule (4 sources) Anticholinergic Start: 10-14-2023 take 10 mg by mouth three times daily Dicyclomine Active 10 MG PO Three times daily October 14, 2023 12:00am Start: 08-12-2023 take 1 capsule by [facility] every eight hours Dicyclomine HCl 10 MG 1 capsule Orally Three times a day for 30 days Jul, Active 0.4 ml enoxaparin sodium 100 mg/ml prefilled syringe (2 sources) Low Molecular Weight Heparin Start: 07-16-2022 enoxaparin (LOVENOX) 40 MG/0.4ML injection 40 mg Start: 07-14-2022 End: 07-15-2022 inject 40 mg by subcutaneous injection once daily 40 mg, Subcutaneous, DAILY, First dose on Tue07/14/22 at 1530, Until Discontinued, ICU/Step Down 24 hr fesoterodine fumarate 8 mg extended release oral tablet (2 sources) Start: 10-14-2023 take 1 tablet by mouth once daily Fesoterodine Active 8 MG PO Daily October 14, 2023 12:00am FreeTextSig: TAKE 1 TABLET BY MOUTH DAILY Oral; Note: Source Status: Taking; Refills: 0; Qty: 30 Each; Provider: ELIO WORTHINGTON take 1 tablet by mouth once gagan y Fesoterodine Fumarate ER 8 MG TAKE 1 TABLET BY MOUTH DAILY Oral for 30 Days Active Fiber (9 sources) Fiber Active 250 ml glucose 50 [...] DIRECTED. Quantity: 90 Refills: 3 Ordered: 14-Oct-2021 Simone ERNST, Eileen Start : 14-Oct-2021 Active stop lasix and [...] 07/24/2022 Active take 1 tablet by rosy th once daily as needed Ibuprofen 200 MG Oral Tablet TAKE 1 TABL ET Daily prn Quantity: 0 Refills: 0 Ordered: 14-Oct-2021 DO Active insulin lispro 100 unt/ml injectable solution (1 source) Insulin Analog Start: 07-15-2022 insulin lispro (HumaLOG) 100 UNIT/ML injection levothyroxine sodium 0.075 mg oral tablet (20 sources) l-Thyroxine Start: 10-14-2023 take 1 tablet by mouth once daily in the morning Levothyroxine Active 1 TAB PO Daily October 14, 2023 12:00am FreeTextSi tablet in the morning on an empty stomach Orally Once a day; Note: Source Status: Taking; Provider: Yonathan Diaz ( ) Start: 07-14-2022 take 50 ug by mouth [...] mg oral tablet (20 sources) Biguanide Start: 10-14-2023 take 1 tablet by mouth once daily Metformin Active 1 TAB PO Daily October 14, 2023 12:00am FreeTextSi tablet with a meal Orally Once a day; Note: Source Status: Taking; Provider: Yonathan Diaz ( ) Start: 07-14-2022 take 500 mg by mouth once daily 500 mg, Oral, DAILY, First dose on Tue07/14/22 at 1800, Until Discontinued, ICU/Step Down Start: 05-30-2022 take 1 tablet by rosy th once daily metformin (GLUCOPHAGE-XR) 500 MG XR tablet Take 500 mg by mouth daily. 0 05/30/2022 Active 2 ml metoclopramide 5 mg/ml prefilled syringe (1 source) Dopamine-2 Receptor Antagonist Start: 01-05-2022 End: 01-05-2022 10 mg, IntraVENous, ONCE PRN, 1 dose, Starting on Tue01/05/22 at 1558, Until Tue01/05/22 at 2359, Nausea Secondary antiemetic therapy. PACU only Multiple Vitamins-Minerals (THERAPEUTIC MULTIVITAMIN-MINERALS ) tablet (6 sources) take 1 tablet by mouth once daily Multiple Vitamins-Minerals (THERAPEUTIC MULTIVITAMIN-CONCHE OPERATOR ALS) tablet Take 1 tablet by mouth daily 0 Suspended take 1 tablet by mouth once gagan y Multiple Vitamins-Minerals (THERAPEUTIC MULTIVITAMIN-MINERALS) tablet Take 1 tablet by mouth daily 0 Active Multivitamin (One Daily Multivitamin) tablet (1 source) Start: 10-14-2023 take 1 tablet by mouth once daily Multivitamin (One Daily Multivitamin) tablet Active 1 TAB PO Daily October 14, 2023 12:00am Multivitamin preparation (9 sources) Multivitamin Act alisia 1 ml naloxone hydrochloride 0.4 mg/ml injection (2 sources) Opioid Antagonist Start: 07-14-2022 naloxone (NA RCAN) 0.4 MG/ML injection Start: 02-25-2022 0.4 mg, Intrav enous Push, PRN, Starting on Christen 7/7/22 at 1423, Until Discontinued, Respiratory Rate Less [...] 11/17/2021 Active take 2 tablets by mo uth at bedtime OLANZapine (ZyPREXA) 5 MG tablet [...] chloride 20 meq extended release oral tablet (5 sources) Start: 10-14-2023 take 1 tablet by mouth once daily at mealtime Potassium Chloride Active 1 TAB PO Daily October 14, 2023 12:00am FreeTextSi tablet with food Orally Once a day; Note: Source Status: Taking; Provider: Yonathan Diaz ( ) take 1 tablet by rosy th every twenty-four hours Potassium Chloride ER 20 MEQ 1 tablet with food Orally Once a day Active Probiotic (9 sources) Probiotic Active Probiotic Product (PROBIOTIC DAILY [...] for Congestion. 30 Tablet 0 07/17/2022 Active Psyllium Husk (Fiber (Psyllium Husk)) 0.4 gram capsule (1 source) Start: 10-14-2023 Psyllium Husk (Fiber (Psyllium Husk)) 0.4 gram capsule Active 0.8 GM PO Twice daily October 14, 2023 12:00am QUEtiapine 50 mg oral tablet (12 sources) Atypical Antipsychotic Start: 10-14-2023 Quetiapine Active MG PO October 14, 2023 12:00am FreeTextSi tablet twice daily Orally twice daily; Note: Source Status: Taking; Provider: Yonathan Diaz ( ) Start: 09-14-2022 take 2 tablets by mo uth once daily QUEtiapine (SEROQUEL) 50 MG tablet TAKE 2 TABLETS BY MOUTH NIGHTLY 0 09/14/2022 Active Start: 08-25-2021 take 1 tablet by rosy th once daily QUEtiapine Fumarate 100 MG Oral Tablet TAKE 1 TABLET BY MOUTH DAILY Quantity: 30 Refills: 0 Ordered: 28-Sep-2021 DO Start : 25-Aug-2021 Active SEROquel 50 MG 1 tablet twice daily Orally twice daily Active saccharomyces boulardii 250 mg oral capsule (1 source) Start: 10-14-2023 take 1 capsule by mouth once daily Saccharomyces Boulardii (Daily Probiotic (S. Boulardii)) 250 mg capsule Active 250 MG PO Daily October 14, 2023 12:00am sodium chloride 0.111 meq/ml nasal solution (15 sources) Start: 07-17-2022 take 1 spray(s) nasal route twice daily as needed for congestion sodium chloride (Mcdonough Nasal Martell) 0.65 % nasal spray Use 1 Martell in each nostril as needed for Congestion (2 puffs nasally twice daily). 1 mL 3 07/17/2022 Active Start: 07-14-2022 1 Martell, Nasal , EVERY 1 HOUR PRN, Starting [...] Capsule by mouth daily. 0 01/06/2022 Active trospium chloride 20 mg oral tablet (1 source) Cholinergic Muscarinic Antagonist take 1 tablet by mouth twice daily Trospium Chloride 20 MG TAKE 1 TABLET BY MOUTH TWICE DAILY Oral for 30 Days Active 24 hr venlafaxine 150 mg extended release oral capsule (20 sources) Serotonin and Norepinephrine Reuptake Inhibitor Start: 10-14-2023 take 1 capsule by mouth once daily at mealtime Venlafaxine (Effexor Xr) 150 mg capsule,extended release 24hr Active 1 CAP PO Daily October 14, 2023 12:00am FreeTextSi capsule with food Orally Once a day; Note: Source Status: Taking; Provider: Yonathan Diaz ( ) Start: 10-14-2023 take 1 capsule by mo [facility] once daily at mealtime Venlafaxine (Effexor Xr) 75 mg capsule,extended release 24hr Active 75 MG PO Daily October 14, 2023 12:00am FreeTextSi capsule with food Orally Once a day; Note: Source Status: Taking; Provider: Yonathan Diaz ( ) Start: 07-14-2022 take 75 mg by mouth once daily 75 mg, Oral, DAILY, First dose on Tue07/14/22 at 1800, Until Discontinued, ICU/Step Down Start: 11-30-2021 take 1 capsule by mo ut once daily venlafaxine (EFFEXOR XR) 150 MG ER capsule Take 150 mg by mouth daily. 0 11/30/2021 Active Start: 11-30-2021 take 1 capsule by mo uth once daily venlafaxine (EFFEXOR XR) 75 MG ER capsule Take 75 mg by mouth daily. 0 11/30/2021 [facility] venlafaxine (EFFEXOR) 75 MG tablet Take 1 tablet by mouth daily 0 Active VITAMIN D, CHOLECALCIFEROL, PO (8 sources) VITAMIN D, EDU CALCIFEROL, PO Take by mouth 0 Suspended VITAMIN D, EDU CALCIFEROL, PO Take by mouth 0 Active Vitamin D3 (5 sources) Vitamin D3 Activ e Completed/Discontinued Medications Medication Drug Class(es) Dates Sig (Normalized) Sig (Original) ARIPiprazole (5 sources) Atypical Antipsychotic Abilify Not-Taking bifidobacterium animalis [id number] unt / lactobacillus acidophilus [id number] unt oral capsule (2 sources) Probiotic CAPS USE DIRECTED. Quantity: 0 Refills: 0 Ordered: 14-Oct-2021 DO Active bisacodyl 5 mg delayed release oral tablet (1 source) Stimulant Laxative Start: 07-14-2022 take 10 mg by mouth once daily as needed 10 mg, Oral, DAILY PRN, Starting on Tue07/14/22 at 1516, Until Discontinued, Constipation, ICU/Step Down calcium chloride 0.0014 meq/ml / potassium chloride 0.004 meq/ml / sodium chloride 0.103 meq/ml / sodium lactate 0.028 meq/ml injectable solution (4 sources) Start: 07-14-2022 End: 07-15-2022 lactated ringers iv infusion Start: 02-25-2022 lactated ringe rs iv infusion Start: 01-05-2022 End: 01-05-2022 lactated ringers infusion 200 ml ciprofloxacin 2 mg/ml injection (1 source) Quinolone Antimicrobial Start: 01-05-2022 End: 01-05-2022 ciprofloxacin (CIPRO) IVPB 400 mg 1 ml dexamethasone phosphate 4 mg/ml injection [...] (DILAUDID) 0.2 MG/ML injection 0.2 mg Ketorolac (9 sources) Nonsteroidal Anti-inflammatory Drug, Cyclooxygenase Inhibitor Start: 06-05-2015 Toradol per 15 mg 15 May, 2015 60 mg methylPREDNISolone (14 sources) Corticosteroid Start: 02-25-2022 End: [...] TABLET DAILY. Quantity: 0 Refills: 0 Ordered: 23-Feb-2022 DO Active Fannie-BE (5 sources) Fannie-BE Not-Taki [...] Until Tue03/01/22 at 1422, Nausea, Vomiting, Post-op Start: 01-05-2022 End: 01-05-2022 4 mg, IntraVENous, ONCE PRN, 1 dose, Starting on Tue01/05/22 at 1558, Until Tue01/05/22 at 2359, Nausea Initial antiemetic therapy. PACU only oxymetazoline hydrochloride 0.5 mg/ml nasal spray (1 source) Start: 07-14-2022 2 Martell, Nasal , EVERY 4 HOURS PRN, Starting on Tue07/14/22 at 1516, Until Discontinued, Nosebleed, ICU/Step Down potassium phosphate 15 mmol injection in D5W (1 source) Start: 07-16-2022 End: 07-16-2022 potassium phosphate 15 mmol injection in D5W sennosides, mcfp 1.76 mg/ml oral solution (20 sources) Start: 02-25-2022 take 8.8 mg by mouth at bedtime 8.8 mg (5 mL), Oral, AT BEDTIME, First dose on Tue02/25/22 at 2200, Until Discontinued, Post-op Start: 02-25-2022 [...] MEALS & AT BEDTIME, First dose on Christen 02/25/22 at 1700, Until Discontinued, Post-op Start: 02-25-2022 take 1 tablet by rosy th four times daily sucralfate (CARAFATE) 1 GM tablet Take 1 Tablet by mouth 4 times daily. 40 Tablet 3 02/25/2022 Active Vitamin D3 TABS (2 sources) Vitamin D3 TABS TAKE 1 TABLET DAILY. Quantity: 0 Refills: 0 Ordered: 14-Oct-2021 DO Active Problems Active Problems Problem Classification Problem Date Documented Da te Episodic/Chronic Acute bronchitis (5 sources) Acute bronchitis; Translations: [Acute bronchitis] Episodic Anxiety disorders (20 sources) Anxiety; Translations: [Anxiety disorder, unspecified] Onset: 11-09-2021 Resolved: 11-09-2021 11-19-2021 Chronic Cardiac dysrhythmias (2 sources) Ventricular premature beats; [...] Translations: [Urge incontinence] Onset: 02-23-2022 02-23-2022 Chronic Immunizations and screening for infectious disease (3 sources) Patient encounter status; Translations: [Encounter for laboratory testing for severe acute respiratory syndrome coronavirus 2 (SARS-CoV-2)] Episodic Menopausal disorders (1 source) Hormone replacement therapy; Translations: [HORMONE REPLACEMENT THERAPY] Onset: 11-16-2022 Episodic Menstrual disorders (4 sources) Irregular menstruation, unspecified; Translations: [IRREGULAR MENSTRUATION UNSPECIFIED] Onset: 05-11-2022 Chronic Miscellaneous mental health disorders (2 sources) Not getting enough sleep; Translations: [Insufficient sleep syndrome] Chronic Mood disorders (20 sources) Acute depression; Translations: [Acute depression] Onset: 11-09-2021 Resolved: 11-09-2021 11-19-2021 Chronic Mood disorders (1 source) Mood disorders; Translations: [DEPRESSION UNSPECIFIED] Onset: 11-16-2022 Other aftercare (1 source) Other ch[facility] (current) drug therapy; Translations: [OTH ASSISTED CURRENT DRUG THERAPY] Onset: 11-16-2022 Episodic Other diseases of bladder and urethra (3 sources) Overactive bladder; Translations: [Overactive bladder] Onset: 02-23-2022 02-23-2022 Chronic Other diseases of bladder and urethra (1 source) Overactive bladder; Translations: [Overactive bladder] Onset: 02-23-2022 Chronic Other gastrointestinal disorders (4 sources) Diarrhea; Translations: [Diarrhea, unspecified] Episodic Other gastrointestinal disorders (1 source) Diarrhea, unspecified Episodic Other gastrointestinal disorders (1 source) Fecal urgency Episodic Other nervous system disorders (9 sources) Sleep-wake schedule disorder, delayed phase type; Translations: [Circadian rhythm sleep disorder, 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 Other nervous system disorders (2 sources) Circadian rhythm sleep disorder, delayed sleep phase type Onset: 11-09-2021 Resolved: 11-09-2021 Chronic Other nervous system disorders (1 source) Postoperative pain ; Translations: [Other acute postprocedural pain] Episodic Other nutritional; endocrine; and metabolic disorders (2 sources) Obesity; Translations: [Obesity, unspecified] Chronic Other nutritional; endocrine; and metabolic disorders (15 sources) Body mass index 30+ - obesity; [...] (BMI) 35.0-35.9, adult] Onset: 07-08-2022 Chronic Other nutritional; endocrine; and metabolic disorders (1 source) Body mass index (BMI) 30.0-30.9, adult Chronic Other upper respiratory infections (2 sources) Acute pharyngitis, unspecified; Translations: [Acute upper respiratory infection, unspecified] Episodic Residual codes; unclassified (20 sources) Obstructive sleep apnea syndrome; Translations: [Obstructive sleep apnea (adult)(pediatric)] Onset: 01-15-2022 Chronic Residual codes; unclassified (20 sources) Sleep apnea; Translations: [Sleep apnea, unspecified] 11-19-2021 Chronic Residual codes; unclassified (9 sources) Insomnia; Translations: [Other insomnia] Chronic Residual codes; unclassified (5 sources) Obstructive sleep apnea (adult) (pediatric); Translations: [...] OTH PART DIGESTV TRACT] Onset: 11-16-2022 Episodic Residual codes; unclassified (1 source) Other specified health status Episodic Screening and history of mental health and substance abuse codes (2 sources) Ex-smoker; Translations: [Personal history of tobacco use] Episodic Comment on above: Quit 2019; Thyroid disorders (19 sources) Hypothyroidism; Translations: [Hypothyroidism, unspecified] Onset: 11-09-2021 [...] Problem Classification Problem Date Documented Date Episodic/Chronic Calculus of urinary tract (20 sources) Kidney stone; Translations: [Calculus of kidney] Onset: 01-04-2022 11-19-2021 Episodic Genitourinary symptoms and ill-defined conditions (12 sources) Agustin hematuria; Translations: [Gross hematuria] Onset: 11-19-2021 11-19-2021 Episodic Other screening for suspected conditions (not mental [...] Test Name Value Interpretation Reference Range Facility CT UROGRAMon 10-01-2023 CT UROGRAM EXAMINATION: CT UROGRAM 09/29/2023 4:43 pm TECHNIQUE: CT of the abdomen and pelvis was performed before and after the administration of intravenous contrast as per CT urogram protocol. Multiplanar reformatted images as well as MIP urogram images are provided for review. Dose modulation, iterative reconstruction, and/or weight based adjustment of the mA/kV was utilized to reduce the radiation dose to as low as reasonably achievable. COMPARISON: 12/04/2021 HISTORY: ORDERING SYSTEM PROVIDED HISTORY: Gross hematuria FINDINGS: Lower Chest: The visualized heart and lungs show no acute abnormalities. Kidneys and Urinary Tract: Right kidney shows no calculi or hydronephrosis. No suspicious right renal mass. Left kidney about half the size of right kidney demonstrating areas of cortical scarring.. 5 mm calculus upper pole left kidney unchanged. Group of calculi in the lower pole on prior are all no longer present. No solid soft tissue left renal mass. Ureters show no significant abnormality. Urinary bladder is partially collapsed which limits evaluation. No focal lesions. Organs: The liver, spleen, pancreas, adrenal glands show no significant abnormalities. Cholecystectomy noted. GI/Bowel: There is limited evaluation due to absence of oral contrast. No bowel obstruction. No acute infective process. Pelvis: Uterus present. Small amount of pelvic free fluid probably physiologic. No suspicious pelvic mass Peritoneum/Retroperitoneum: No gross ascites or lymphadenopathy peer Bones/Soft Tissues: No acute abnormality of the bones. The superficial soft tissues show no acute process. IMPRESSION: 1. Decreased stone burden in the left kidney. Residual 5 mm calculus unchanged. 2. No right renal calculus. Ureters unremarkable in there is no bladder lesion. Interpreted by: Oliver Walker MD Signed by: Olivre Walker MD 10/01/23 Final result Normal [facility] Creatinine w/GFRon 4 Creatinine [Mass/Vol] 0.7 mg/dL Normal 0.5-0.9 [facility] Comment on above: Performed By: #### C REG #### [facility] [address] [place] [address] Operator Technician: Wiley Wheatley MD GFR/1.73 sq M.predicted among non-blacks MDRD (S/P/Bld) [Vol rate/Area] mL/min/{1.73_m2} Normal >60 [facility] Comment on above: Result Comment: These results are not intended for use in patients <18 years of age. eGFR results are calculated without a race factor using the 202 CKD-EPI equation. Careful clinical correlation is recommended, particularly when comparing to results calculated using previous equations. The CKD-EPI equation is less accurate in patients with extremes of muscle mass, extra-renal metabolism of creatine, excessive creatine ingestion, or following therapy that affects renal tubular secretion. Performed By: #### C REG #### [facility] [address] [place] [address] Operator Technician: Wiley Wheatley MD Cult,Urineon 09-16-2023 Cult,Urine Specimen Description .CLEAN CATCH URINE Culture NO SIGNIFICANT GROWTH Report Status FINAL 09/16/2023 Normal [facility] Comment on above: Performed By: #### U RC #### [id number] [place], [place] [id number] Operator Technician: Taiwo Wray MD [facility] [address] [place] [address] Operator Technician: Wiley Wheatley MD HCG ( test) Sylvia oscar Ql (U)Ordered By: David Martinez on 08-08-2023 HCG ( test) Ql (U) Negative [facility] HCG,Urineon 08-08-2023 Beta HCG ( test) Ql (U) Negative Normal [facility] Comment on above: Result Comment: PERF ORMED BY: [place] [address] PATHOLOGIST [employer] CHRIS GUERRERO M.D. Performed By: #### U HCG #### [address] 08-08-2023 L -------- -------- Specimen: [id number] Received: 08/08/23 Status: MALCOLM Sherwood Num: [id number] Spec Type: Surgical Subm Dr: David Martinez MD Tissues: A Colon Biopsy (RNDM COL BX) Procedures: HE/2, Gross/Micro L4 -------- Age/ Patient Sex Location Account Attending Physician -------- Isabelle Hewitt I 48/F [id number] David Martinez MD -------- SPEC NUM: [id number] RECD: 08/08/23 STATUS: MALCOLM LIElena NUM: [id number] ANGEL LUIS: 08/08/23 DR: David Martinez MD ENTERED: 08/08/[address] [facility] DR: LOKESH TYPE: Surgical DEPT: S ENTERED BY: [id number] RECV BY: [id number] ORDERED: HE/2, Gross/Micro L4 ORDERED: HE/2, Gross/Micro [...] microscopic examination confirms the diagnosis. CPT Codes 38694 -------- -------- Specimen: [id number] Received: 08/08/23 Status: MALCOLM Lielena Num: [id number] Spec Type: Surgical Subm Dr: David Martinez MD Tissues: A Colon Biopsy (RNDM COL BX) Procedures: Sally BEARD/Leroy L4 -------- Patient: Isabelle Hewitt I [id number] (Continued) -------- Signed (signature on file) Desmond Sarah MD 08/09/23 0957 Normal [facility] Amylaseon 06-30-2023 Amylase [Catalytic activity/Vol] 42 U/L Normal 29-103 [facility] Comment on above: Order Comment: Reaso n for Exam Diarrhea, unspecified type Performed By: #### C ALPROTECT, HIV SCREEN, CELIAC, ELASTASE STOOL #### [facility] , #### CRP, LIPASE, TSH3, ROSHNI, ESR #### [facility] [id number] [facility] Amylase [Enzymatic activity/ volume] in Serum or PlasmaOrdered By: Majo Lyman on 06-30-2023 Amylase [Catalytic activity/Vol] 42 U/L [facility] C reactive protein [Mass/vol ume] in Serum or PlasmaOrdered By: Majo Lyman on 06-30-2023 CRP [Mass/Vol] < 0.5 mg/dL 0.0-0.5 [facility] C-Reactive Proteinon 023 CRP [Mass/Vol] mg/L Normal 0.0-0.5 [facility] Comment on above: Order Comment: Reaso n for Exam Diarrhea, unspecified type Performed By: #### C ALPROTECT, HIV SCREEN, CELIAC, ELASTASE STOOL #### [facility] , #### CRP, LIPASE, TSH3, ROSHNI, ESR #### [facility] [address] Calprotectin [Mass/mass] in StoolOrdered By: Majo Lyman on 06-30-2023 Calprotectin (Stl) [Mass/Mass] 36 ug/g 0-120 [facility] Comment on above: Concentration Interp retation Follow-Up< 5 - 50 ug/g Normal None>50 -120 ug/g Borderline Re-evaluate in 4-6 weeks >120 ug/g Abnormal Repeat as clinically indicatedPerformed at: - Lab[address] [id number] Director: Andrew Cameron MD, Phone: [phone] Calprotectin, Fecalon 2022 Calprotectin, Fecal 36 Normal 0-120 [facility] Comment on above: Order Comment: Reaso n for Exam Diarrhea, unspecified type Result Comment: Conc entration Interpretation Follow-Up < 5 - 50 ug/g Normal None >50 -120 ug/g Borderline Re-evaluate in 4-6 weeks >120 ug/g Abnormal Repeat as clinically indicated Performed at: [address] [id number] Operator Technician: Andrew Cameron MD, Phone: [phone] PERFORMED BY: [place] [address] PATHOLOGIST [employer] CHRIS GUERRERO M.D. Performed By: #### C ALPROTECT, HIV SCREEN, CELIAC, ELASTASE STOOL #### [facility] , #### CRP, LIPASE, TSH3, ROSHNI, ESR #### [facility] [address] [place] [address] Celiacon 06-30-2023 Deamidated Gliadin Abs, IgA 7 Normal 0-19 [facility] Comment on above: Order Comment: Reaso n for Exam Diarrhea, unspecified type Result Comment: Nega tive 0 - 19 Weak Positive 20 - 30 Moderate to Strong Positive >30 Performed By: #### C ALPROTECT, HIV SCREEN, CELIAC, ELASTASE STOOL #### [facility] , #### CRP, LIPASE, TSH3, ROSHNI, ESR #### [facility] [address] [place] [address] Deamidated Gliadin Abs, IgG 2 Normal 0-19 [facility] Comment on above: Order Comment: Reaso n for Exam Diarrhea, unspecified type Result Comment: Nega tive 0 - 19 Weak Positive 20 - 30 Moderate to Strong Positive >30 Performed By: #### C ALPROTECT, HIV SCREEN, CELIAC, ELASTASE STOOL #### [facility] , #### CRP, LIPASE, TSH3, ROSHNI, ESR #### [facility] [address] [place] [address] Endomysial Antibody IgA Negative Normal Negative [facility] Comment on above: Order Comment: Reaso n for Exam Diarrhea, unspecified type Performed By: #### C ALPROTECT, HIV SCREEN, CELIAC, ELASTASE STOOL #### [facility] , #### CRP, LIPASE, TSH3, ROSHNI, ESR #### [facility] [address] [place] [address] [place] Immunoglobulin A, Qn, Serum 505 mg/dL High 87-352 [facility] Comment on above: Order Comment: Reaso n for Exam Diarrhea, unspecified type Result Comment: Perf ormed at: - [facility] [address] [id number] Operator Technician: Fran Guthrie PhD, Phone: [phone] Performed By: #### C ALPROTECT, HIV SCREEN, CELIAC, ELASTASE STOOL #### [facility] , #### CRP, LIPASE, TSH3, ROSHNI, ESR #### [facility] [address] [place] [address] T-Transglutaminase (tTG) IgA <2 Normal 0-3 [facility] Comment on above: Order Comment: Reaso n for Exam Diarrhea, unspecified type Result Comment: Nega tive 0 - 3 Weak Positive 4 - 10 Positive >10 Tissue Transglutaminase (tTG) has been identified as the endomysial antigen. Studies have demonstr- ated that endomysial IgA antibodies have over 99% specificity for gluten sensitive enteropathy. Performed By: #### C ALPROTECT, HIV SCREEN, CELIAC, ELASTASE STOOL #### [facility] , #### CRP, LIPASE, TSH3, ROSHNI, ESR #### [facility] [address] [place] [address] [place] T-Transglutaminase (tTG) IgG <2 Normal 0-5 [facility] Comment on above: Order Comment: Reaso n for Exam Diarrhea, unspecified type Result Comment: Nega tive 0 - 5 Weak Positive 6 - 9 Positive >9 Performed By: #### C ALPROTECT, HIV SCREEN, CELIAC, ELASTASE STOOL #### [facility] , #### CRP, LIPASE, TSH3, ROSHNI, ESR #### [facility] [address] [place] [address] [place] Elastase.pancreatic [Mass/ma ss] in StoolOrdered By: Majo Lyman on 06-30-2023 Elastase.pancreatic (Stl) [Mass/Mass] 327 >200 [facility] Comment on above: Result Units: ug Nighat st./g Severe Pancreatic Insufficiency: <100 Moderate Pancreatic Insufficiency: 100 - 200 Normal: >200Performed at: [address] [id number] Director: Andrew Cameron MD, Phone: [phone] Erythrocyte Sedimentation Ra zari 06-30-2023 ESR (Bld) [Velocity] 51 mm/h High 0 [facility] Comment on above: Order Comment: Reaso n for Exam Diarrhea, unspecified type Result Comment: PERF ORMED BY: [place] [address] PATHOLOGIST [employer] CHRIS GUERRERO M.D. Performed By: #### C ALPROTECT, HIV SCREEN, CELIAC, ELASTASE STOOL #### [facility] , #### CRP, LIPASE, TSH3, ROSHNI, ESR #### [address] Erythrocyte sedimentation ra te by Photometric methodOrdered By: Majo Lyman on 06-30-2023 ESR Photometric method (Bld) [Velocity] 51 mm/hr [facility] HIV 1/O/2 Antigen/Antibodyon 06-30-2023 HIV Screen 4th Generation Non-Reactive Normal Non Reactive [facility] Comment on above: Order Comment: Reaso n for Exam Diarrhea, unspecified type Result Comment: HIV Negative HIV-1/HIV-2 antibodies and HIV-1 p24 antigen were NOT detected. There is no laboratory evidence of HIV infection. Performed at: [facility] [address] [id number] Operator Technician: Fran Guthrie PhD, Phone: [phone] PERFORMED BY: [place] [address] PATHOLOGIST [employer] CHRIS GUERRERO M.D. Performed By: #### C ALPROTECT, HIV SCREEN, CELIAC, ELASTASE STOOL #### [facility] , #### CRP, LIPASE, TSH3, ROSHNI, ESR #### [facility] [address] HIV 1 and HIV-2 antibody ass ay with HIV-1 p24 antigen detectionOrdered By: Majo Lyman on 06-30-2023 HIV 1+2 Ab+HIV1 p24 Ag IA Ql Non-Reactive Non Reactive [facility] Comment on above: HIV NegativeHIV-1/HI V-2 antibodies and HIV-1 p24 antigen were NOTdetected. There is no laboratory evidence of HIV infection.Performed at: [facility] [address] [id number] Director: Fran Guthrie PhD, Phone: [phone] IgA [Mass/volume] in Serum o r PlasmaOrdered By: Majo Lyman on 06-30-2023 IgA [Mass/Vol] 505 mg/dL 87-352 [facility] Comment on above: Performed at: [facility] [address] [id number] Director: Fran Guthrie PhD, Phone: [phone] Lipaseon 06-30-2023 Lipase [Catalytic activity/Vol] 45.0 U/L Normal 11.0-82.0 [facility] Comment on above: Order Comment: Reaso n for Exam Diarrhea, unspecified type Performed By: #### C ALPROTECT, HIV SCREEN, CELIAC, ELASTASE STOOL #### [facility] , #### CRP, LIPASE, TSH3, ROSHNI, ESR #### [facility] [address] Lipase [Enzymatic activity/v olume] in Serum or PlasmaOrdered By: Majo Lyman on 06-30-2023 Lipase [Catalytic activity/Vol] 45.0 U/L 11.0-82.0 [facility] No Panel InformationOrdered By: Majo Lyman on 06-30-2023 Endomysial IgA Antibody Negative Negative [facility] Pancreatic Elastase, Stoolon 06-30-2023 Pancreatic Elastase, Stool 327 Normal >200 [facility] Comment on above: Order Comment: Reaso n for Exam Diarrhea, unspecified type Result Comment: Resu lt Units: ug Elast./g Severe Pancreatic Insufficiency: <100 Moderate Pancreatic Insufficiency: 100 - 200 Normal: >200 Performed at: [facility] [address] [id number] Operator Technician: Andrew Cameron MD, Phone: [phone] PERFORMED BY: [place] [address] PATHOLOGIST [employer] CHRIS GUERRERO M.D. Performed By: #### C ALPROTECT, HIV SCREEN, CELIAC, ELASTASE STOOL #### [facility] , #### CRP, LIPASE, TSH3, ROSHNI, ESR #### [facility] [address] Serum gliadin peptide IgA an tibody assay (units/volume)Ordered By: Majo Lyman on 06-30-2023 Gliadin peptide IgA Qn (S) 7 units 0-19 [facility] Comment on above: Negative 0 - 19 Weak Positive 20 - 30 Moderate to Strong Positive >30 Serum gliadin peptide IgG an tibody assay (units/volume)Ordered By: Majo Lyman on 06-30-2023 Gliadin peptide IgG Qn (S) 2 units 0-19 [facility] Comment on above: Negative 0 - 19 Weak Positive 20 - 30 Moderate to Strong Positive >30 Serum tissue transglutaminas e (tTG) IgA antibody assay (units/volume)Ordered By: Majo Lyman on 06-30-2023 tTG IgA Qn (S) <2 U/mL 0-3 [facility] Comment on above: Negative 0 - 3 Weak Positive 4 - 10 Positive >10 Tissue Transglutaminase (tTG) has been identified as the endomysial antigen. Studies have demonstr- ated that endomysial IgA antibodies have over 99% specificity for gluten sensitive enteropathy. Serum tissue transglutaminas e (tTG) IgG antibody assay (units/volume)Ordered By: Majo Lyman on 06-30-2023 tTG IgG Qn (S) <2 U/mL 0-5 [facility] Comment on above: Negative 0 - 5 Weak Positive 6 - 9 Positive >9 Thyroid Stimulating Hormoneo n 06-30-2023 TSH Qn 0.57 m[IU]/L Normal 0.45-5.33 [facility] Comment on above: Order Comment: Reaso n for Exam Diarrhea, unspecified type Result Comment: PERF ORMED BY: [facility] [address] [id number] PATHOLOGIST [employer] CHRIS GUERRERO M.D. Performed By: #### C ALPROTECT, HIV SCREEN, CELIAC, ELASTASE STOOL #### [facility] , #### CRP, LIPASE, TSH3, ROSHNI, ESR #### [facility] [address] Thyrotropin [Units/volume] i n Serum or PlasmaOrdered By: Majo Lyman on 06-30-2023 TSH Qn 0.57 m[IU]/L 0.45-5.33 [facility] COVID + FLU Quick Testingon 06-07-2023 SARS-CoV-2 (COVID-19) RNA JOHNNIE+probe Ql (Unsp spec) Negative [facility] Other COVID + FLU Quick Testing Negative [facility] Other Quick Strepon 06-07-2023 S. pyogenes Org specific cx Ql (Throat) Negative [facility] Other Quick Strep [facility] Other XR ABDOMEN (KUB) (SINGLE AP VIEW)on 03-12-2023 XR ABDOMEN (KUB) (SINGLE AP VIEW) EXAMINATION: ONE SUPINE XRAY VIEW(S) OF THE ABDOMEN 03/08/2023 4:34 pm COMPARISON: February 19, 2022 HISTORY: ORDERING SYSTEM PROVIDED HISTORY: Renal stone FINDINGS: Bowel gas pattern nonobstructed. Renal shadows partially obscured by bowel gas and fecal debris. Stable left nephrolithiasis. No definite right renal or ureteral stones. No acute osseous abnormality. IMPRESSION: Stable left nephrolithiasis. Interpreted by: Perry Neely DO Signed by: Perry Neely DO 03/12/23 Final result Normal [facility] Operative Reporton 3 Operative Report [facility] [address], [place] [address] RECORD OF PROCEDURE PATIENT NAME: ISABELLE HEWITT DATE OF : 1975 MED REC #: [id number] PT LOCATION: OR PACU PT TYPE: OPS [...] room in stable condition. Yi Moreno MD /[id number] [facility] File#: [id number] CC: Yi Moreno MD [facility] Telephone Encounteron 2022 [employer] Aut[employer] Interface Message Text Situation: Patient called in Background: She says that she wanted to let provider know taht she would be following a different dr to his new practice for follow up treatment Assessment: NA Recommendation: Please advise and george patient if needed at Phone numbers Thank You Normal [employer] Authentication Interface Message Text Called and left voicemail for patient. Post-op Home Sleep Test reviewed from [facility], and there is considerable improvement. Pre-op AHI is 102, now down to 31. Pre-op O2 Carlene of 71%, now up to 82%. However, still with considerable desat time. There are notes from Dr. Moreno evaluating for [employer] I presume, but nothing since November. Asked patient for call back or [employer] message with if she has been able to continue with Dr. Moreno at his new office, or [facility] Normal [employer] MG MAMM SCREEN 3D LEEANNE CADon 01-18-2023 MG MAMM SCREEN 3D LEEANNE CAD Patient: ISABELLE HEWITT I. Exam Date: 01/18/2023 : 1975 Gender:F [facility]ing : [facility] Admission #: [id number] Family : Order #: [id number] CLICK HERE TO VIEW EXAM RADIOLOGY REPORT [...] Treatments None Family Cancers None LOCATION: [facility] BREAST COMPOSITION: Heterogeneously dense,which may obscure small [...] Winston M.D. on 01/19/2023 at 13:37 Normal [facility] Cult,Urineon 12-14-2022 Cult,Urine Specimen Description .CLEAN CATCH URINE Culture NO GROWTH Report Status FINAL 12/14/2022 Normal [facility] Comment on above: Performed By: #### U RC #### [address] [id number] Operator Technician: Taiwo Wray MD [facility] [address] [place] [address] [place] [address] Operator Technician: Wiley Wheatley MD Urinalysis w/ Microon 2022 Bacteria TRACE Abnormal NONE [facility] Comment on above: Performed By: #### U AMIC #### [address] [place] [address] Operator Technician: Wiley Wheatley MD Bilirubin, SemiQt,Ur Negative Normal NEG [facility] Comment on above: Performed By: #### U AMIC #### [facility] [address] [place] [address] [place] [address] Operator Technician: Wiley Wheatley MD Blood, Urine Negative Normal NEG [facility] Comment on above: Performed By: #### U AMIC #### [address] [place] [address] Operator Technician: Wiley Wheatley MD Clarity (U) Clear Normal CLEAR [facility] Comment on above: Performed By: #### U AMIC #### [facility] [address] [place], [place] [id number] Operator Technician: Wiley Wheatley MD Color (U) Yellow Normal YEL [facility] Comment on above: Performed By: #### U AMIC #### [facility] [address] [place], [place] [id number] Operator Technician: Wiley Wheatley MD Epithelial cells LM Ql (Urine sed) 0 TO 2 Normal 0-25 [facility] Comment on above: Performed By: #### U AMIC #### [facility] [address] [place] [id number] Operator Technician: Wiley Wheatley MD Glucose Ql (U) Negative Normal NEG [facility] Comment on above: Performed By: #### U AMIC #### [facility] [address] [place] [address] [place] [place], [place] [id number] Operator Technician: Wiley Wheatley MD Ketones Ql (U) Negative Normal NEG [facility] Comment on above: Performed By: #### U AMIC #### [facility] [address] [place] [address] [place] [address] Operator Technician: Wiley Wheatley MD Leukocyte esterase Test strip Ql (U) Negative Normal NEG [facility] Comment on above: Performed By: #### U AMIC #### [facility] [address] [place] [address] [place] [place], [place] [id number] Operator Technician: Wiley Wheatley MD Nitrite,Ur Negative Normal NEG [facility] Comment on above: Performed By: #### U AMIC #### [facility] [address] [place] [address] [place], [place] [id number] Operator Technician: Wiley Wheatley MD PH,Ur 6.5 Normal 5.0-9.0 [facility] Comment on above: Performed By: #### U AMIC #### [facility] [address] [place] [address] [place] [address] Operator Technician: Wiley Wheatley MD Protein Ql (U) Negative Normal NEG [facility] Comment on above: Performed By: #### U AMIC #### [facility] [address] [place], [place] [address] Operator Technician: Wiley Wheatley MD Spec. [place]il[place],Ur <1.005 Low 1.010-1.02 0 [facility] Comment on above: Performed By: #### U AMIC #### [facility] [address] [place] [address] [place] [place], [place] [id number] Operator Technician: Wiley Wheatley MD Urine RBC's None Normal 0-2 [facility] Comment on above: Performed By: #### U AMIC #### [facility] [address] [place] [address] [place] [place], [place] [id number] Operator Technician: Wiley Wheatley MD Urine WBC's None Normal 0-5 [facility] Comment on above: Performed By: #### U AMIC #### [facility] [address] [place] [address] [place] [place], [place] [id number] Operator Technician: Wiley Wheatley MD Urobilinogen,Ur Normal Normal NORM [facility] Comment on above: Performed By: #### U AMIC #### [facility] [address] [place] [address] [place] [address] Operator Technician: Wiley Wheatley MD Urinalysis with Microscopico n 12-13-2022 Bacteria, UA TRACE Abnormal None [facility] Bilirubin Urine Negative NEGATIVE [facility] Color, UA Yellow Yellow [facility] Epithelial Cells UA 0 TO 2 [facility] Glucose Auto test strip (U) [Mass/Vol] Negative NEGATIVE [facility] Interpretation and review of laboratory results Abnormal [facility] Ketones (U) [Mass/Vol] Negative NEGATIVE [facility] Leukocyte esterase Auto test strip Ql (U) Negative NEGATIVE [facility] Nitrite Auto test strip Ql (U) Negative NEGATIVE [facility] Protein (U) [Mass/Vol] 6.5 mg/dL 5.0 - 9.0 [facility] Protein (U) [Mass/Vol] Negative NEGATIVE [facility] RBC clumps Auto (Urine sed) [#/Area] None [facility] Specific [place], UA Low 1.010 - 1.020 [facility] Turbidity UA Clear Clear [facility] Urine Hgb Negative NEGATIVE [facility] Urobilinogen, Urine Normal Normal [facility] WBC, UA None [facility] SARS-CoV-2 (COVID-19) RNA JOHNNIE+probe Ql (Unsp spec) Not detected Normal NOT DETECTED [facility] Comment on above: Result Comment: This test is not yet approved or cleared by the [place] FDA. When there are no FDA-approved or cleared tests available, and other criteria are met, FDA can make tests available under an emergency access mechanism called an Emergency Use Authorization (EUA). The EUA for this test is supported by the [place] of Health and Human Service's (HHS's) declaration [...] SARS-CoV-2. Performed By: #### C VDTB #### [facility] [address] [place] [address] Dr. Stephanie Gibbs INFLUENZA A AND B AGon 11-26 INFLUANEGH SEE BELOW Normal [facility] Comment on above: Result Comment: Nega tive for Flu A protein angiten. Infection due to Flu A cannot be ruled out. Flu A angiten in the sample may be below the detection limit of the test. Performed By: #### I NFLUAB #### [facility] [address] [place] [address] Dr. Stephanie Gibbs [facility] SEE BELOW Normal [facility] Comment on above: Result Comment: Nega tive for Flu B protein antigen. Infection due to Flu B cannot be ruled out. Flu B antigen in the sample may be below the detection limit of the test. Performed By: #### I NFLUAB #### [facility] [address] [place] [address] Dr. Stephanie Gibbs INFLUENZA A AG Negative Normal NEGATIVE SEE COMMENT [facility] Comment on above: Performed By: #### I NFLUAB #### [facility] [address] [place] [address] Dr. Stephanie Gibbs INFLUENZA B AG Negative Normal NEGATIVE SEE COMMENT [facility] Comment on above: Performed By: #### I NFLUAB #### [facility] [address] [place] [address] Dr. Stephanie Gibbs SYMPTOMATIC COVID-19 ANTIGEN on 11-26-2022 EUA Statement SEE BELOW Normal [facility] Comment on above: Result Comment: This test [...] sooner. Performed By: #### C BC #### [facility] [address] [place] [address] Dr. Stephanie Gibbs SARS-CoV-2 (COVID-19) RNA JOHNNIE+probe Ql (Unsp spec) Negative Normal NEGATIVE [facility] Comment on above: Performed By: #### C BC #### [facility] [address] [place] [address] Dr. Stephanie Gibbs Telephone Encounteron 2022 Consumer Banker Authentication Interface Message Text Requesting sleep study results and next steps. Please advise. Normal [facility] CBC AUTO DIFFon 11-12-2022 BASO # 0.1 103/ul Normal 0.0-0.1 [facility] Comment on above: Performed By: #### C BC #### [facility] [address] [place] [address] Dr. Stephanie Gibbs Basophils/100 WBC (Bld) 0.9 % Normal 0.2-2.0 [facility] Comment on above: Performed By: #### C BC #### [facility] [address] [place] [address] Dr. Stephanie Gibbs EO # 0.3 103/ul Normal 0.0-0.7 [facility] Comment on above: Performed By: #### C BC #### [facility] [address] [place] [address] Dr. Stephanie Gibbs Eosinophils/100 WBC (Bld) 4.7 % Normal 0.9-7.0 [facility] Comment on above: Performed By: #### C BC #### [facility] [address] [place] [address] Dr. Stephanie Gibbs Erythrocyte distribution width (RBC) [Ratio] 13.4 % Normal 11.0-15.0 [facility] Comment on above: Performed By: #### C BC #### [facility] [address] [place] [address] Dr. Stephanie Gibbs Hematocrit (Bld) [Volume fraction] 43.0 % Normal 36.0-48.0 [facility] Comment on above: Performed By: #### C BC #### [facility] [address] [place] [address] Dr. Stephanie Gibbs Hemoglobin (Bld) [Mass/Vol] 13.9 g/dL Normal 12.0-16.0 [facility] Comment on above: Performed By: #### C BC #### [facility] [address] [place] [address] Dr. Stephanie Gibbs IG # 0.01 10e3/ul Normal 0.00-0.03 [facility] Comment on above: Performed By: #### C BC #### [facility] [address] [place] [address] Dr. Stephanie Gibbs IG % 0.2 % Normal 0.0-0.5 [facility] Comment on above: Performed By: #### C BC #### [facility] [address] [place] [address] Dr. Stephanie Gibbs LYMPH # 2.3 103/ul Normal 1.2-3.8 [facility] Comment on above: Performed By: #### C BC #### [facility] [address] [place] [address] Dr. Stephanie Gibbs Lymphocytes/100 WBC (Bld) 36.6 % Normal 20.5-60.0 [facility] Comment on above: Performed By: #### C BC #### [facility] [address] [place] [address] Dr. Stephanie Gibbs MANUAL DIFF REQ NO Normal [facility] Comment on above: Performed By: #### C BC #### [facility] [address] [place] [address] Dr. Stephanie Gibbs MCH (RBC) [Entitic mass] 29.7 pg Normal 26.7-34.0 [facility] Comment on above: Performed By: #### C BC #### [facility] [address] [place] [address] Dr. Stephanie Gibbs MCHC (RBC) [Mass/Vol] 32.3 g/dL Normal 29.9-35.2 [facility] Comment on above: Performed By: #### C BC #### [facility] [address] [place] [address] Dr. Stephanie Gibbs MCV (RBC) [Entitic vol] 91.9 fL Normal 81.0-99.0 [facility] Comment on above: Performed By: #### C BC #### [facility] [address] [place] [address] Dr. Stephanie Gibbs MONO # 0.5 103/ul Normal 0.3-0.8 [facility] Comment on above: Performed By: #### C BC #### [facility] [address] [place] [address] Dr. Stephanie Gibbs Monocytes/100 WBC (Bld) 8.3 % Normal 1.7-12.0 [facility] Comment on above: Performed By: #### C BC #### [facility] [address] [place] [address] Dr. Stephanie Gibbs NEUT # 3.2 103/ul Normal 1.4-6.5 [facility] Comment on above: Performed By: #### C BC #### [facility] [address] [place] [address] Dr. Stephanie Gibbs Neutrophils/100 WBC (Bld) 49.3 % Normal 43.0-75.0 [facility] Comment on above: Performed By: #### C BC #### [facility] [address] [place] [address] Dr. Stephanie Gibbs Platelet mean volume (Bld) [Entitic vol] 9.6 fL Normal 9.5-13.5 [facility] Comment on above: Performed By: #### C BC #### [facility] [address] [place] [address] Dr. Stephanie Gibbs PLT 250 103/ul Normal 150-450 [facility] Comment on above: Performed By: #### C BC #### [facility] [address] [place] [address] Dr. Stephanie Gibbs RBC 4.68 106/ul Normal 4.20-5.40 [facility] Comment on above: Performed By: #### C BC #### [facility] [address] [place] [address] Dr. Stephanie Gibbs WBC 6.4 103/ul Normal 4.0-11.0 [facility] Comment on above: Performed By: #### C BC #### [facility] [address] [place] [address] Dr. Stephanie Gibbs POINT OF CARE GLUCOSEon 03-2 Glucose [Mass/Vol] 97 mg/dL Normal 74-106 [facility] Comment on above: Performed By: #### P OCGLUC #### [facility] [address] [address] [address] Stephanie Gibbs PREG QUANT HCGon 11-12-2022 HCG QUANT 3 mIU/mL Normal [facility] Comment on above: Performed By: #### C BC #### [facility] [address] [address] [address] Stephanie Gibbs HCG RANGE SEE BELOW Normal [facility] Comment on above: Result Comment: 5-50 0.2-1 WEEK 50-500 1-2 WEEKS 100-5,000 2-3 WEEKS 500-10,000 3-4 WEEKS 1,000-50,000 4-5 WEEKS 10,000-100,000 5-6 WEEKS 15,000-200,000 6-8 WEEKS 10,000-100,000 2-3 MONTHS Performed By: #### C BC #### [facility] [address] [address] [address] Stephanie Gibbs Telephone Encounteron 2022 Consumer Banker Authentication Interface Message Text Opened in error Normal [facility] Telephone Encounteron 2022 Consumer Banker Authentication Interface Message Text Called patient and left voicemail. Advised that order for post-op PSG was faxed to [facility]. Left number to call to schedule study at her convenience ([phone]) Normal [facility] [employer] [facility] Progress Noteson 10-19-2022 Consumer Banker Authentication Interface Message Text CC: sleep disordered [...] residual base of tongue obstruction. Normal [facility] Telephone Encounteron 2022 Consumer Banker Authentication Interface Message Text PT calling back to check status of her FMLA paperwork from [employer]. I verified the correct fax # PT was using ) I called over to PS dept , spoke to Seferino and he stated to have the PT to send it to the e-mail address [email or web address] PT will put ATTN: to Dr. Rodrigues. PT asks to have the paperwork filled out HOLA as it it due soon ( PT didn't state a sate just that it was due) Please call PT once received Normal [facility] Telephone Encounteron 2022 Consumer Banker Authentication Interface Message Text Patient calling in to see if her FMLA papers were received. Paperwork not scanned into the chart at this time. Please call the patient with confirmation of receipt of the FMLA papers at [phone]. Thank you! Normal [facility] Progress Noteson 09-08-2022 Consumer Banker Authentication Interface Message Text Teaching Physician Note: [...] physician. Rikki Rodrigues DMD, MD Normal [facility] Telephone Encounteron 2022 Consumer Banker Authentication Interface Message Text PT calling in stating she will be sending new FMLA forms via fax tomorrow due to the library being closed today. PT states Dr. Rodrigues has to fill that paperwork out just like he did for [employer]. PT states the company she works for switched [employer]. Please call PT if any questions. PT was just seen on 08/30/22 Normal [facility] FREE T4on 09-02-2022 Free T4 [Mass/Vol] 1.01 ng/dL Normal 0.76-1.46 [facility] Comment on above: Performed By: #### F T4 #### [facility] [address] [place], [place] [address] Dr. Stephanie Gibbs TSHon 09-02-2022 TSH 0.745 uIU/mL Normal 0.358-3.74 0 [facility] Comment on above: Performed By: #### T SH #### [facility] [address] [place], [place] [address] Dr. Stephanie Gibbs Telephone Encounteron 2022 Consumer Banker Authentication Interface Message Text PT calling in stating she had new FMLA forms to be faxed to Dr. Rodrigues. PT stated her job was going through [employer] and now is going through [employer]. saw PT for surgery on 07/14. PT had a televisit follow up on 07/23, but has cancelled every other follow up on 08/02 , 08/13 AND 08/30. PT stated Dr. Rodrigues had her off work since 07/14/22-08/30/2022. Please see media job titles- dates are different Please reach out to PT to discuss and when forms are ready to be filled out [phone] Normal [facility] [employer] [facility] Patient Instructionson 08-30 Consumer Banker Authentication Interface Message Text With clean hands massage gums under your upper lip daily at night time No food restrictions Follow up with your dentist We will contact your Sleep Center in [place] to have a Sleep Study completed in 1.5 months. Normal [facility] [employer] [facility] Progress Noteson 08-30-2022 Consumer Banker Authentication Interface Message Text [facility] [...] -Complete sleep study with Dr. Mcmanus in [place], [place] in 1.5 months -Follow up with patient's general dentist, Sinan Jones DDS for denture adjustment Follow-Up: After new sleep study Follow up sooner with new or worsening symptoms. Sinan Jones DDS [facility] [address] [place] [address] Wiley Mcmanus MD [facility] [address] [place] [id number] Seferino Vaz [facility] Resident Normal [facility] Urinalysis with Microscopico n 08-12-2022 Bacteria, UA 2+ Abnormal None [facility] Bilirubin Urine Negative NEGATIVE [facility] Color, UA Yellow Yellow [facility] Epithelial Cells UA 0 TO 2 [facility] Glucose, Ur Negative NEGATIVE [facility] Interpretation and review of laboratory results Abnormal [facility] Ketones Ql (U) Negative NEGATIVE [facility] Leukocyte esterase Test strip Ql (U) SMALL Abnormal NEGATIVE [facility] Nitrite, Urine Negative NEGATIVE [facility] pH, UA 6.5 5.0 - 9.0 [facility] Protein, UA 1+ Abnormal NEGATIVE [facility] RBC, UA 0 TO 2 [facility] Specific [place], UA High 1.010 - 1.020 [facility] Turbidity UA Cloudy Abnormal Clear [facility] Urine Hgb 1+ Abnormal NEGATIVE [facility] Urobilinogen, Urine Normal Normal [facility] WBC, UA 50 TO 100 [facility] Telephone Encounteron 2021 Consumer Banker Authentication Interface Message Text Called the patient twice this week to remind her regarding the follow up this Tuesday (08/13/22) and to offer to follow up sooner if she prefers. Patient did not answer. Message was left. Also attempted to call the alternative work number listed. Was unable to reach the patient at this number. Jerel Villegas DDS, MD [facility]- PGY4 [phone] Normal [facility] [employer] [facility] Telephone Encounteron 2021 Consumer Banker Authentication Interface Message Text Called pt. No answer. LVM with callback instructions. Per Dr. Rodrigues, we will not write any work excuse notes or prescribe any pain meds until pt is seen in person for follow up. Oliver Rogers, DMD Normal [facility] Consumer Banker Authentication Interface Message Text Pt called because [...] options if that is the case. Email: [email or web address] Contact pt @[phone] for questions/concerns Normal [facility] Telephone Encounteron 2021 Consumer Banker Authentication Interface Message Text Patient called in [...] Please call the patient to advise at [phone]. Thank you! Normal [facility] Telephone Encounteron 2021 Consumer Banker Authentication Interface Message Text Spoke with patient and instructed her to come in earlier Tuesday afternoon, preferably between 1:00 and 2:00 pm. Also reminded her to bring dentures with her as we would like to assess her occlusion with dentures in place. Patient voiced understanding and agreed to arrive early for her appointment on Tuesday. Mikal Rodgers DMD child care associate teacher, PGY-3 Team Pager: [phone] Normal [facility] Telephone Encounteron 2021 Consumer Banker Authentication Interface Message Text Patient called stating she needs a back to work slip. Requested a call back [phone]. Thank you! Normal [facility] Progress Noteson 07-23-2022 Consumer Banker Authentication Interface Message Text [facility] [...] new or worsening symptoms. Mikal Rodgers DMD child care associate teacher, PGY-3 Team Pager: [phone] Normal [facility] Progress Noteson 07-19-2022 Consumer Banker Authentication Interface Message Text Initial pre-surgical workup photos: Normal [facility] BASIC METABOLIC PANELon 11-2 Anion gap [Moles/Vol] 13 mmol/L Normal 10-20 [facility] Comment on above: Performed By: #### MILO Mattson CH8 #### [facility] [address] [place] [address], [phone] Calcium [Mass/Vol] 7.9 mg/dL Low 8.4-10.4 [facility] Comment on above: Performed By: #### MILO Mattson CH8 #### [facility] [address] [place], [place], Chloride [Moles/Vol] 105 mmol/L Normal 97-111 [facility] Comment on above: Performed By: #### MILO Mattson CH8 #### [facility] [address] [place], [place], CO2 [Moles/Vol] 30 mmol/L Normal 21-30 [facility] Comment on above: Performed By: #### MILO Mattson CH8 #### [facility] [address], [place], Creatinine [Mass/Vol] 0.84 mg/dL Normal 0.50-1.10 [facility] Comment on above: Performed By: #### MILO Mattson CH8 #### [facility] [address], [place], ESTIMATED GFR (CKD-EPI) 86 mL/min/1.73sqm Normal >=60 [facility] Comment on above: Result Comment: 2020 [...] Inclusion of Race in Diagnosing Kidney Disease. [place] Journal of Kidney Diseases 2021;79(2):268-88.e1. 2. N Engl J Med 2020 Vol. 385 Issue 19 Pages [phone] Performed By: #### MILO Mattson CH8 #### [facility] [address] [place], [place], Glucose [Mass/Vol] 85 mg/dL Normal 68-110 [facility] Comment on above: Performed By: #### MILO Mattson CH8 #### [facility] [address], [place], Potassium [Moles/Vol] 3.7 mmol/L Normal 3.3-5.3 [facility] Comment on above: Performed By: #### M MILO Alan CH8 #### [facility] [address], [place], Sodium [Moles/Vol] 144 mmol/L Normal 135-148 [facility] Comment on above: Performed By: #### Mariam MILO Alan CH8 #### [facility] [address], [place], Urea nitrogen [Mass/Vol] 10 mg/dL Normal 8-22 [facility] Comment on above: Performed By: #### Mariam MILO Alan CH8 #### [facility] [address], [place], Basic metabolic 2000 panelon 07-17-2022 Anion [...] (S/P/Bld) [Vol rate/Area] 86 mL/min/{1.73_m2} - PINF [facility] Comment on above: 2020 CKD EPI [...] Inclusion of Race in Diagnosing Kidney Disease. [place] Journal of Kidney Diseases 202;79(2):268-88.e1. 2. N Engl J Med 2020 Vol. 385 Issue 19 Pages [phone] Glucose [Mass/Vol] 85 mg/dL 68 - 110 mg/dL [facility] Potassium [Moles/Vol] 3.7 mmol/L 3.3 - 5.3 mmol/L [facility] Sodium [Moles/Vol] 144 mmol/L 135 - 148 mmol/L [facility] Urea nitrogen [Mass/Vol] 10 mg/dL 8 - 22 mg/dL [facility] CBC panel Auto (Bld)on 07-17 Erythrocyte distribution width (RBC) [Ratio] 13.7 % 11.5 - 14.5 % [facility] Hematocrit (Bld) [Volume fraction] 32.8 % Low 36.0 - 46.0 % [facility] Hemoglobin (Bld) [Mass/Vol] 10.8 g/dL Low 12.0 - 15.0 g/dL [facility] Interpretation and review of laboratory results Abnormal [facility] MCH (RBC) [Entitic mass] 32.5 pg 26.0 - 34.0 pg [facility] MCHC (RBC) [Mass/Vol] 32.9 g/dL 32.0 - 35.9 g/dL [facility] MCV (RBC) [Entitic vol] 99 fL 80 - 100 fL [facility] Platelet mean volume (Bld) [Entitic vol] 8.0 fL 7.5 - 11.2 fL [facility] Platelets (Bld) [#/Vol] 214 10*3/uL 150 - 400 K/uL [facility] RBC (Bld) [#/Vol] 3.33 10*6/uL Low [facility] WBC (Bld) [#/Vol] 8.7 10*3/uL 4.5 - 11.5 K/uL [facility] COMPLETE BLOOD COUNTon 07-17 Erythrocyte distribution width (RBC) [Ratio] 13.7 % Normal 11.5-14.5 [facility] Comment on above: Performed By: #### MILO Mattson CH8 #### [facility] [address] [place], [address] Hematocrit (Bld) [Volume fraction] 32.8 % Low 36.0-46.0 [facility] Comment on above: Performed By: #### MILO Mattson CH8 #### [facility] [address] [place], [address] Hemoglobin (Bld) [Mass/Vol] 10.8 g/dL Low 12.0-15.0 [facility] Comment on above: Performed By: #### MILO Mattson CH8 #### [facility] [address] [place] [address], MCH (RBC) [Entitic mass] 32.5 pg Normal 26.0-34.0 [facility] Comment on above: Performed By: #### MILO Mattson CH8 #### [facility] [address] [place], [place], MCHC (RBC) [Mass/Vol] 32.9 g/dL Normal 32.0-35.9 [facility] Comment on above: Performed By: #### MILO Mattson CH8 #### [facility] [address] [place] [address], MCV (RBC) [Entitic vol] 99 fL Normal 80-100 [facility] Comment on above: Performed By: #### MILO Mattson CH8 #### [facility] [address] [place] [address], Platelet mean volume (Bld) [Entitic vol] 8.0 fL Normal 7.5-11.2 [facility] Comment on above: Performed By: ###MILO Sierra CH8 #### [facility] [address] [place] [address], Platelets (Bld) [#/Vol] 214 10*3/uL Normal 150-400 [facility] Comment on above: Performed By: ###MILO Sierra CH8 #### [facility] [address] [place], [place], RBC (Bld) [#/Vol] 3.33 10*6/uL Low 4.00-5.20 [facility] Comment on above: Performed By: ###MILO Sierra CH8 #### [facility] [address] [place] [address], WBC (Bld) [#/Vol] 8.7 10*3/uL Normal 4.5-11.5 [facility] Comment on above: Performed By: #### MILO Mattson CH8 #### [facility] [address] [place], [address] Care Plan Noteon 07-17-2022 Consumer Banker Authentication Interface Message Text Problem: Discharge Planning: [...] discharged home with family member. Normal [facility] Consumer Banker Authentication Interface Message Text Problem: Routine Care: [...] will be met Outcome: Progressing Normal [facility] GLUCOSE, FINGERSTICK-IN OFFI CEon 07-17-2022 Glucose [Mass/Vol] 81 mg/dL Normal 68-110 [facility] Comment on above: Performed By: #### 8 [id number] ####NURSING GLUCOSE [id number] [place], [address] Glucose [Mass/Vol] 81 mg/dL 68 - 110 mg/dL [facility] Interpretation and review of laboratory results Normal [facility] Glucose [Mass/Vol] 93 mg/dL Normal 68-110 [facility] Comment on above: Performed By: #### SRI MattsonS, CH8 #### [facility] [address] [place], [place], Glucose [Mass/Vol] 93 mg/dL 68 - 110 mg/dL [facility] Interpretation and review of laboratory results Normal [facility] MAGNESIUMon 07-17-2022 Magnesium [Mass/Vol] 1.8 mg/dL Normal 1.6-2.8 [facility] Comment on above: Performed By: #### MILO Mattson CH8 #### [facility] [address] [place], [place], Interpretation and review of laboratory results Normal [facility] Magnesium [Mass/Vol] 1.8 mg/dL 1.6 - 2.8 mg/dL [facility] No Panel Informationon 07-17 Interpretation and review of laboratory results Abnormal [facility] PHOSPHORUSon 07-17-2022 Phosphate [Mass/Vol] 2.4 mg/dL Low 2.5-4.8 [facility] Comment on above: Performed By: #### MILO Mattson CH8 #### [facility] [address] [place], [place], Phosphate [Mass/Vol] 2.4 mg/dL Low 2.5 - 4.8 mg/dL [facility] Progress Noteson 07-17-2022 Consumer Banker Authentication Interface Message Text Patient refused: Ditropan, and Hs Fingerstick. Normal [facility] BASIC METABOLIC PANELon 06-23 Anion gap [Moles/Vol] 14 mmol/L Normal 10-20 [facility] Comment on above: Performed By: #### MILO Mattson CH8 #### [facility] [address] [place], [place], Calcium [Mass/Vol] 8.0 mg/dL Low 8.4-10.4 [facility] Comment on above: Performed By: ###MILO Sierra CH8 #### [facility] [address] [place], [place], Chloride [Moles/Vol] 103 mmol/L Normal 97-111 [facility] Comment on above: Performed By: #### MILO Mattson CH8 #### [facility] [address], [place], CO2 [Moles/Vol] 31 mmol/L High 21-30 [facility] Comment on above: Performed By: #### MILO Mattson CH8 #### [facility] [address], [place], Creatinine [Mass/Vol] 0.79 mg/dL Normal 0.50-1.10 [facility] Comment on above: Performed By: #### MILO Mattson CH8 #### [facility] [address], [place], ESTIMATED GFR (CKD-EPI) 93 mL/min/1.73sqm Normal >=60 [facility] Comment on above: Result Comment: 2020 [...] Inclusion of Race in Diagnosing Kidney Disease. [place] Journal of Kidney Diseases 2021;79(2):268-88.e1. 2. N Engl J Med 2020 Vol. 385 Issue 19 Pages [phone] Performed By: #### MIOL Mattson CH8 #### [facility] [address], [place], Glucose [Mass/Vol] 96 mg/dL Normal 68-110 [facility] Comment on above: Performed By: #### MILO Mattson CH8 #### [facility] [address], [place], Potassium [Moles/Vol] 4.0 mmol/L Normal 3.3-5.3 [facility] Comment on above: Performed By: #### MILO Mattson CH8 #### [facility] [address], [place], Sodium [Moles/Vol] 144 mmol/L Normal 135-148 [facility] Comment on above: Performed By: #### Mariam MILO Alan CH8 #### [facility] [address], [place], Urea nitrogen [Mass/Vol] 16 mg/dL Normal 8-22 [facility] Comment on above: Performed By: #### Mariam MILO Alan CH8 #### [facility] [address], [place], Basic metabolic 2000 panelon 07-16-2022 Anion gap [...] (S/P/Bld) [Vol rate/Area] 93 mL/min/{1.73_m2} - PINF [facility] Comment on above: 2020 CKD EPI [...] Inclusion of Race in Diagnosing Kidney Disease. [place] Journal of Kidney Diseases 202;79(2):268-88.e1. 2. N Engl J Med 1 Vol. 385 Issue 19 Pages [phone] Glucose [Mass/Vol] 96 mg/dL 68 - 110 mg/dL [facility] Potassium [Moles/Vol] 4.0 mmol/L 3.3 - 5.3 mmol/L [facility] Sodium [Moles/Vol] 144 mmol/L 135 - 148 mmol/L [facility] Urea nitrogen [Mass/Vol] 16 mg/dL 8 - 22 mg/dL [facility] CBC panel Auto (Bld)on 07-16 Erythrocyte distribution width (RBC) [Ratio] 13.5 % 11.5 - 14.5 % [facility] Hematocrit (Bld) [Volume fraction] 32.8 % Low 36.0 - 46.0 % [facility] Hemoglobin (Bld) [Mass/Vol] 10.9 g/dL Low 12.0 - 15.0 g/dL [facility] Interpretation and review of laboratory results Abnormal [facility] MCH (RBC) [Entitic mass] 32.7 pg 26.0 - 34.0 pg [facility] MCHC (RBC) [Mass/Vol] 33.2 g/dL 32.0 - 35.9 g/dL [facility] MCV (RBC) [Entitic vol] 98 fL 80 - 100 fL [facility] Platelet mean volume (Bld) [Entitic vol] 9.0 fL 7.5 - 11.2 fL [facility] Platelets (Bld) [#/Vol] 217 10*3/uL 150 - 400 K/uL [facility] RBC (Bld) [#/Vol] 3.33 10*6/uL Low [facility] WBC (Bld) [#/Vol] 16.3 10*3/uL High 4.5 - 11.5 K/uL [facility] COMPLETE BLOOD COUNTon 07-16 Erythrocyte distribution width (RBC) [Ratio] 13.5 % Normal 11.5-14.5 [facility] Comment on above: Performed By: #### C BC ####S PATHOLOGY [id number] [place], [place], Hematocrit (Bld) [Volume fraction] 32.8 % Low 36.0-46.0 [facility] Comment on above: Performed By: #### C BC ####[facility] [id number] [place], [place], Hemoglobin (Bld) [Mass/Vol] 10.9 g/dL Low 12.0-15.0 [facility] Comment on above: Performed By: #### C BC ####[facility] [id number] [place], [place], MCH (RBC) [Entitic mass] 32.7 pg Normal 26.0-34.0 [facility] Comment on above: Performed By: #### C BC ####S PATHOLOGY [id number] [place], MCHC (RBC) [Mass/Vol] 33.2 g/dL Normal 32.0-35.9 [facility] Comment on above: Performed By: #### C BC ####S PATHOLOGY [id number] [place], MCV (RBC) [Entitic vol] 98 fL Normal 80-100 [facility] Comment on above: Performed By: #### C BC ####S PATHOLOGY [id number] [place], Platelet mean volume (Bld) [Entitic vol] 9.0 fL Normal 7.5-11.2 [facility] Comment on above: Performed By: #### C BC ####[facility] PATHOLOGY [id number] [place], Platelets (Bld) [#/Vol] 217 10*3/uL Normal 150-400 [facility] Comment on above: Performed By: #### C BC ####[facility] PATHOLOGY [id number] [place], RBC (Bld) [#/Vol] 3.33 10*6/uL Low 4.00-5.20 [facility] Comment on above: Performed By: #### C BC ####S PATHOLOGY [id number] [place], WBC (Bld) [#/Vol] 16.3 10*3/uL High 4.5-11.5 [facility] Comment on above: Performed By: #### C BC ####S PATHOLOGY [id number] [place], GLUCOSE, FINGERSTICK-IN OFFI CEon 07-16-2022 Glucose [Mass/Vol] 89 mg/dL Normal 68-110 [facility] Comment on above: Performed By: #### MILO Mattson, CH8 #### S [facility] LABORAT[facility] [address], [place], Glucose [Mass/Vol] 89 mg/dL 68 - 110 mg/dL [facility] Interpretation and review of laboratory results Normal [facility] Glucose [Mass/Vol] 160 mg/dL High 68-110 [facility] Comment on above: Result Comment: Ricky lund RN, APN, MD Performed By: #### MILO Mattson CH8 #### [facility] [address] [place] [address], Glucose [Mass/Vol] 160 mg/dL High 68 - 110 mg/dL [facility] Comment on above: Notified CALISTA MORSE MD Interpretation and review of laboratory results Abnormal [facility] Glucose [Mass/Vol] 136 mg/dL High 68-110 [facility] Comment on above: Result Comment: Ricky lund RN, APN, MD Performed By: #### MILO Mattson CH8 #### [facility] [address] [place] [address], Glucose [Mass/Vol] 136 mg/dL High 68 - 110 mg/dL [facility] Comment on above: Notified CALISTA MORSE MD Interpretation and review of laboratory results Abnormal [facility] MAGNESIUMon 07-16-2022 Magnesium [Mass/Vol] 2.0 mg/dL Normal 1.6-2.8 [facility] Comment on above: Performed By: #### MILO Mattson CH8 #### [facility] [address], [place], Interpretation and review of laboratory results Normal [facility] Magnesium [Mass/Vol] 2.0 mg/dL 1.6 - 2.8 mg/dL [facility] No Panel Informationon 07-16 Interpretation and review of laboratory results Abnormal [facility] PHOSPHORUSon 07-16-2022 Phosphate [Mass/Vol] 2.1 mg/dL Low 2.5-4.8 [facility] Comment on above: Performed By: #### MILO Mattson CH8 #### [facility] [address], [place], Phosphate [Mass/Vol] 2.1 mg/dL Low 2.5 - 4.8 mg/dL [facility] Progress Noteson 07-16-2022 Consumer [employer] Authentication Interface Message Text -- GENERAL INFORMATION [...] ivpb, 3,000 mg, Intravenous, Q6H Antibiotic, El JonathansyMargot DDS, Last Rate: 200 mL/hr at 07/16/22 0959, 3,000 mg at 07/16/22 0959 atorvastatin (LIPITOR) tablet, 20 mg, Oral, Daily, Oliver Rogers, DMD, 20 mg at 07/16/22 0811 clonazePAM (KlonoPIN) tablet, 1 mg, Oral, Q12H PRN, Oliver Rogers DMD levothyroxine (SYNTHROID) tablet, 50 mcg, Oral, Before Breakfast, Oliver Rogers, DMD, 50 mcg at 07/16/22 0655 metformin (GLUCOPHAGE) tablet, 500 mg, Oral, Daily, Oliver Rogers, DMD, 500 mg at 07/16/22 0812 oxybutynin (DITROPAN) 5 MG tablet, 5 mg, Oral, 3x Daily, Oliver Rogers, DMD, 5 mg at 07/16/22 0655 venlafaxine (EFFEXOR XR) 24 hour capsule, 75 mg, Oral, Daily, Oliver Rogers, DMD, 75 mg at 07/16/22 0811 chlorhexidine (PERIDEX) 0.12 % oral solution, 15 mL, Swish AND Spit, 2x Daily, Oliver Rogers, DMD, 15 mL at 07/16/22 0811 famotidine (PEPCID) tablet, 20 mg, Oral, 2x Daily, Oliver Rogers, DMD, 20 mg at 07/16/22 0811 ibuprofen (MOTRIN) tablet, 600 mg, Oral, Q6H PRN, Oliver Rogers, DMD ondansetron (ZOFRAN) 4 MG/2ML injection, 4 mg, Intravenous Push, Q6H PRN, Oliver Rogers DMD docusate sodium (COLACE) capsule, 100 mg, Oral, 2x Daily, Oliver Rogers, DMD, 100 mg at 07/16/22 0811 bisacodyl (DULCOLAX) 5 MG enteric coated tablet, 10 mg, Oral, Daily PRN, Oliver Rogers DMD oxymetazoline (AFRIN) 0.05 % nasal solution, 2 Martell, Nasal, Q4H PRN, Oliver Rogers DMD sodium chloride (OCEAN) 0.65 % nasal spray, 1 Martell, Nasal, Q1H PRN, Oliver Rogers, DMD naloxone [...] 31 14 96 16 0.79 8.0 07/16/22 040 2. (more content not included)... Normal [facility] [employer] [facility] Consumer Banker Authentication Interface Message Text Attestation signed by [...] MD SURGERY DAILY PROGRESS NOTE Isabelle Hewitt [id number] Isabelle Hewitt is a 47yo F with [...] bisacodyl 10 mg Daily PRN oxymetazoline 2 Martell Q4H PRN sodium chloride 1 Martell Q1H PRN naloxone 0.4 mg PRN IV [...] Ca Mg PO4 07/16/22 0401 2.0 07/16/22 040 144 4.0 103 31 14 96 16 0.79 8.0 07/16/22 0401 2.1 07/15/22 0044 141 4.3 102 28 15 147 16 0.91 8.0 07/14/22 0844 142 3.7 CBC/PT/INR WBC RBC Hgb Hct MCV RDW Plt PT aPTT INR 07/16/22 040 16.3 3.33 10.9 32.8 98 13.5 217 [...] hydration. Pt okay to be transferred to [facility]. Neuro: - Acetaminophen 650 mg Q4H scheduled - Ibuprofen 600 mg Q6H PRN mild pain - Oxycodone 5/10 mg Q4H PRN moderate/severe pain OMFS: - Peridex mouth rinses BID Cardiac: - Lipitor 20 mg daily Resp: - O2 as needed to maintain sats >92% - Humidified face tent - Mcdonough nasal spray Q1H PRN - Afrin nasal [...] daily Dispo: - Okay to transfer to [facility] Oliver Rogers, CHAU child care associate teacher, PGY-1 Team Pager: [phone] Normal [facility] [employer] [facility] BASIC METABOLIC PANELon 11-2 -2021 Anion gap [Moles/Vol] 15 mmol/L Normal 10-20 [facility] Comment on above: Performed By: #### MILO Mattson CH8 #### [facility] [address] [place] [address], Calcium [Mass/Vol] 8.0 mg/dL Low 8.4-10.4 [facility] Comment on above: Performed By: #### MILO Mattson CH8 #### [facility] [address] [place] [address], Chloride [Moles/Vol] 102 mmol/L Normal 97-111 [facility] Comment on above: Performed By: ###MILO Sierra CH8 #### [facility] [address] [place] [address], CO2 [Moles/Vol] 28 mmol/L Normal 21-30 [facility] Comment on above: Performed By: #### MILO Mattson CH8 #### [facility] [address] [place] [address], Creatinine [Mass/Vol] 0.91 mg/dL Normal 0.50-1.10 [facility] Comment on above: Performed By: #### MILO Mattson CH8 #### [facility] [address] [place] [address], ESTIMATED GFR (CKD-EPI) 78 mL/min/1.73sqm Normal >=60 [...] Inclusion of Race in Diagnosing Kidney Disease. [place] Journal of Kidney Diseases 2021;79(2):268-88.e1. 2. N Engl J Med 2020 Vol. 385 Issue 19 Pages [phone] Performed By: #### MILO Mattson CH8 #### [facility] [address] [place] [address], Glucose [Mass/Vol] 147 mg/dL High 68-110 [facility] Comment on above: Performed By: #### MILO Mattson CH8 #### [facility] [address] [place] [address], Potassium [Moles/Vol] 4.3 mmol/L Normal 3.3-5.3 [facility] Comment on above: Performed By: #### MILO Mattson CH8 #### [facility] [address] [place] [address], Sodium [Moles/Vol] 141 mmol/L Normal 135-148 [facility] Comment on above: Performed By: ###MILO Sierra CH8 #### [facility] [address] [place] [address], Urea nitrogen [Mass/Vol] 16 mg/dL Normal 8-22 [facility] Comment on above: Performed By: #### MILO Mattson CH8 #### [facility] [address] [place], [phone] Basic metabolic 2000 panelon 07-15-2022 Anion gap [Moles/Vol] 15 mmol/L 10 - 20 [facility] Calcium [Mass/Vol] 8.0 mg/dL Low 8.4 - 10. 4 mg/dL [facility] Chloride [Moles/Vol] 102 mmol/L 97 - 111 mmol/L [facility] CO2 [Moles/Vol] 28 mmol/L 21 - 30 mmol/L [facility] Creatinine [Mass/Vol] 0.91 mg/dL 0.50 - 1.10 mg/dL [facility] GFR/1.73 sq M.predicted MDRD (S/P/Bld) [Vol rate/Area] 78 mL/min/{1.73_m2} - PINF [facility] Comment on above: 2020 CKD EPI [...] Inclusion of Race in Diagnosing Kidney Disease. [place] Journal of Kidney Diseases 202;79(2):268-88.e1. 2. N Engl J Med 1 Vol. 385 Issue 19 Pages 5456-5955 Glucose [Mass/Vol] 147 mg/dL High 68 - 110 mg/dL [facility] Interpretation and review of laboratory results Abnormal [facility] Potassium [Moles/Vol] 4.3 mmol/L 3.3 - 5.3 mmol/L [facility] Sodium [Moles/Vol] 141 mmol/L 135 - 148 mmol/L [facility] Urea nitrogen [Mass/Vol] 16 mg/dL 8 - 22 mg/dL [facility] CBC panel Auto (Bld)on 07-15 Erythrocyte distribution width (RBC) [Ratio] 13.6 % 11.5 - 14.5 % [facility] Hematocrit (Bld) [Volume fraction] 34.4 % Low 36.0 - 46.0 % [facility] Hemoglobin (Bld) [Mass/Vol] 11.5 g/dL Low 12.0 - 15.0 g/dL [facility] Interpretation and review of laboratory results Abnormal [facility] MCH (RBC) [Entitic mass] 32.3 pg 26.0 - 34.0 pg [facility] MCHC (RBC) [Mass/Vol] 33.4 g/dL 32.0 - 35.9 g/dL [facility] MCV (RBC) [Entitic vol] 97 fL 80 - 100 fL [facility] Platelet mean volume (Bld) [Entitic vol] 8.6 fL 7.5 - 11.2 fL [facility] Platelets (Bld) [#/Vol] 267 10*3/uL 150 - 400 K/uL [facility] RBC (Bld) [#/Vol] 3.55 10*6/uL [facility] WBC (Bld) [#/Vol] 18.2 10*3/uL High 4.5 - 11.5 K/uL [facility] COMPLETE BLOOD COUNTon 07-15 Erythrocyte distribution width (RBC) [Ratio] 13.6 % Normal 11.5-14.5 [facility] Comment on above: Performed By: #### MILO Mattson CH8 #### [facility] [address] [place] [address], Hematocrit (Bld) [Volume fraction] 34.4 % Low 36.0-46.0 [facility] Comment on above: Performed By: #### MILO Mattson CH8 #### S [facility]Y LABORATORY [address], [place], Hemoglobin (Bld) [Mass/Vol] 11.5 g/dL Low 12.0-15.0 [facility] Comment on above: Performed By: #### MILO Mattson CH8 #### S [facility] LABORAT[facility] [address], [place], MCH (RBC) [Entitic mass] 32.3 pg Normal 26.0-34.0 [facility] Comment on above: Performed By: #### MILO Mattson CH8 #### [facility] [address], [place], MCHC (RBC) [Mass/Vol] 33.4 g/dL Normal 32.0-35.9 [facility] Comment on above: Performed By: #### MILO Mattson CH8 #### S [facility]Y LABORATORY [address], [place], MCV (RBC) [Entitic vol] 97 fL Normal 80-100 [facility] Comment on above: Performed By: #### MILO Mattson CH8 #### S [facility] LABORATORY [address], [place], Platelet mean volume (Bld) [Entitic vol] 8.6 fL Normal 7.5-11.2 [facility] Comment on above: Performed By: #### MILO Mattson CH8 #### [facility] [address], [place], Platelets (Bld) [#/Vol] 267 10*3/uL Normal 150-400 [facility] Comment on above: Performed By: #### MILO Mattson CH8 #### S [facility] LABORATORY [address], [place], RBC (Bld) [#/Vol] 3.55 10*6/uL Low 4.00-5.20 [facility] Comment on above: Performed By: #### MILO Mattson CH8 #### S [facility] LABORAT[facility] [address], [place], WBC (Bld) [#/Vol] 18.2 10*3/uL High 4.5-11.5 [facility] Comment on above: Performed By: #### MILO Mattson CH8 #### S [facility]Y LABORATORY [address], [place], Care Plan Noteon 07-15-2022 Consumer Banker Authentication Interface Message Text Problem: Routine Care: [...] will be met Outcome: Progressing Normal [facility] [employer] [facility] Consumer [employer]er Authentication Interface Message Text Problem: Discharge Planning: [...] free of falls/injuries during shift. Normal [facility] [employer] [facility] GLUCOSE, FINGERSTICK-IN OFFI CEon 07-15-2022 Glucose [Mass/Vol] 155 mg/dL High 68-110 [facility] [employer] [facility] Comment on above: Result Comment: Ricky lund RN, APN, MD Performed By: #### M MILO Alan, 8 #### [facility] [address] [place] [address], [phone] Glucose [Mass/Vol] 155 mg/dL High 68 - 110 mg/dL [facility] Comment on above: Notified CALISTA MORSE MD Interpretation and review of laboratory results Abnormal [facility] Glucose [Mass/Vol] 137 mg/dL High 68-110 [facility] Comment on above: Performed By: #### 8 2948 ####NURSING GLUCOSE [id number] [place], [address] Glucose [Mass/Vol] 137 mg/dL High 68 - 110 mg/dL [facility] Interpretation and review of laboratory results Abnormal [facility] Progress Noteson 07-15-2022 Consumer Banker Authentication Interface Message Text Attestation signed by [...] MD SURGERY DAILY PROGRESS NOTE Isabelle Hewitt [phone] Isabelle Hewitt is a 47yo F with [...] bisacodyl 10 mg Daily PRN oxymetazoline 2 Martell Q4H PRN sodium chloride 1 Martell Q1H PRN naloxone 0.4 mg PRN IV [...] Gap Glu BUN Cr Ca Mg PO4 07/15/22 0044 141 4.3 102 28 15 [...] daily -Lipitor 20mg daily Pulm: -Oxymetazoline 2 Martell q4h PRN -Mcdonough 1 Martell q1h PRN -Face Tent on humidified air [...] pending Page OMFS if any questions Seferino S Mar DMD OMFS Resident Team Pager [phone] Normal [facility] [employer] [facility] Consumer Banker Authentication Interface Message Text -- GENERAL INFORMATION [...] Bedtime, Oliver Rogers DMD, 10 mg at 07/14/22 2217 oxybutynin (DITROPAN) 5 MG tablet, 5 mg, [...] tablet, 5 mg, Oral, Q4H PRN, Oliver Rogers, CHAU oxyCODONE immediate release tablet, 10 mg, Oral, Q4H PRN, Oliver Rogers, CHAU, 10 mg at 07/15/22 0346 dexamethasone (DECADRON) [...] oxymetazoline (AFRIN) 0.05 % nasal solution, 2 Martell, Nasal, Q4H PRN, Oliver Rogers DMD sodium chloride (OCEAN) 0.65 % nasal spray, 1 Martell, Nasal, Q1H PRN, Oliver Rogers DMD enoxaparin (LOVENOX) 40 MG/0.4ML injection 40 mg, 40 mg, Subcutaneous, Daily, Oliver Rogers DMD, 40 mg at 07/14/22 1658 naloxone (NARCAN) 0.4 MG/ML injection, 0.4 mg, Intravenous Push, PRN, Ki Atwood MD lactated ringers iv infusion, , Intravenous, Continuous, Saleem Mi DMD, Last Rate: 75 mL/hr at 07/15/22 0700, Rate Verify at 07/15/22 0700 Physical [...] - (more content not included)... Normal [facility] [employer] [facility] Anesthesia Attestationon Consumer Banker Authentication Interface Message Text Anesthesia Attestation ATTESTATION OF INFORMED CONSENT FOR ANESTHESIA Anesthesia options were discussed with the patient and/or legal tax compliance representative. The risks, benefits and alternatives were reviewed. Questions regarding anesthesia were answered. Patient and/or legal tax compliance representative knows such anesthetics and procedures may be performed by Resident physicians, Certified Anesthesiologist Assistants, or Certified Nurse Anesthetists under the supervision of a physician. The patient /or the patient's legal tax compliance representative agree with the plan for anesthesia. Normal [facility] [employer] [facility] Anesthesia Postprocedure Lauren jorge 07-14-2022 Consumer [employer]er Authentication Interface Message Text Anesthesia Postoperative Assessment: [...] EVENTS: No notable events documented. Normal [facility] [employer] [facility] Anesthesia Transfer Of Careo n 07-14-2022 Consumer Banker Authentication Interface Message Text Patient taken to [...] was received. Zenia Centeno, CAA Normal [facility] [employer] [facility] BLOOD GAS, ARTERIALon 2021 CR DEBORAH 0.5 mmol/L Normal -2.0-2.0 [facility] [employer] [facility] Comment on above: Performed By: #### C R LYTES, CR GLU, LACT, CR BGA, CR ICA, CR COOX #### [facility] [address] [place] [address], [phone] CR PCO2 37.0 mm Hg Normal 35.0-45.0 [facility] [employer] [facility] Comment on above: Performed By: #### C R LYTES, CR GLU, LACT, CR BGA, CR ICA, CR COOX #### [facility] [address] [place] [address], CR PHA 7.429 Normal 7.35-7.45 [facility] Comment on above: Performed By: #### C R LYTES, CR GLU, LACT, CR BGA, CR ICA, CR COOX #### [facility] [address] [place] [address], CR PO2 118 mm Hg High 80-100 [facility] Comment on above: Performed By: #### C R LYTES, CR GLU, LACT, CR BGA, CR ICA, CR COOX #### [facility] [address] [place] [address], HCO3 (Bld) [Moles/Vol] 24 mmol/L Normal 22-28 [facility] Comment on above: Performed By: #### C R LYTES, CR GLU, LACT, CR BGA, CR ICA, CR COOX #### [facility] [address] [place] [address], Oxygen saturation in Blood 98.8 % Normal >=95.1 [facility] Comment on above: Performed By: #### C R LYTES, CR GLU, LACT, CR BGA, CR ICA, CR COOX #### [facility] [address] [place] [address], BLOOD GAS, ARTERIALOrdered B y: Osmar Zamora on 07-14-2022 Base excess Calc (Bld) [Moles/Vol] 0.5 mmol/L -2.0 - 2.0 mmol/L [facility] CO2 (Bld) [Partial pressure] 37.0 mm[Hg] [facility] Oxygen (Bld) [Partial pressure] 118 mm[Hg] High [facility] pH (Bld) 7.429 [pH] 7.35 - 7.45 [facility] Blood Attestationon 07-14-20 Consumer Banker Authentication Interface Message Text Blood Attestation ATTESTATION OF INFORMED CONSENT FOR BLOOD The transfusion of blood and/or blood components were discussed with the patient and/or legal tax compliance representative. The risks, benefits and alternatives were reviewed. Questions regarding blood transfusions were answered. The patient /or the patient's legal tax compliance representative agree with the plan for transfusion of blood and/or blood components. Normal [email or web address] Brief Operative Noteon 07-14 Consumer Banker Authentication Interface Message Text Brief Operative Note MAIN OR 12 Isabelle Hewitt 47 year old female Surgical Contact Serial Number: [id number] Preoperative Diagnosis: DIONNE (obstructive sleep apnea) [G47.33] Postoperative Diagnosis: * DIONNE (obstructive sleep apnea) [G47.33] Procedures: Surgical CPTs Procedures RECONSTRUCTION MIDFACE, LEFORT I; 1 PIECE, W/O BONE GRAFT RECONSTRUCTION, MANDIBULAR RAMI AND /OR BODY, SAGITTAL SPLIT; W/INT RIGID FIXATION No data filed Surgeon(s): Surgeon(s): Rikki Rodrigues DMD, MD Staff: Scrub: Annelise Saeed RN; Babs Wells RN Deep Well Contractor Nurse: Stephanie Brannon RN; Babs Wells RN Sawyer Cork Slabs: Margot Ovalles DDS; Saleem Mi DMD Anesthesia: [...] DMD, MD 07/14/2022 12:58 PM Normal [email or web address] CALCIUM, IONIZEDon 2 CR ICA 1.00 mmol/L Low 1.10-1.40 [facility] Comment on above: Performed By: #### C R LYTES, CR GLU, LACT, CR BGA, CR ICA, CR COOX #### [facility] [address] [place] [address], Calcium.ionized (Bld) [Moles/Vol] 1.00 mmol/L Low 1.10 - 1.40 mmol/L [facility] CO-OXIMETERon 07-14-2022 CARBOXYHEMOGLOBIN 1.5 % Normal <3.0 The [facility] Comment on above: Performed By: #### C R LYTES, CR GLU, LACT, CR BGA, CR ICA, CR COOX #### [facility] [address] [place] [address], CR HBMET 0.8 % Normal <3.0 [facility] Comment on above: Performed By: #### C R LYTES, CR GLU, LACT, CR BGA, CR ICA, CR COOX #### [facility] [address] [place] [address], Hematocrit (Bld) [Volume fraction] 37.6 % Normal 36.0-46.0 The [facility] [facility] Comment on above: Performed By: #### C R LYTES, CR GLU, LACT, CR BGA, CR ICA, CR COOX #### [facility] PATH[facility]ORATORY [address] [place] [address], Hemoglobin (Bld) [Mass/Vol] 12.2 g/dL Normal 12.0-16.0 [facility] Comment on above: Performed By: #### C R LYTES, CR GLU, LACT, CR BGA, CR ICA, CR COOX #### [facility] [address] [place] [address], OXYHEMOGLOBIN 96.5 % Normal 95.0-100.0 [facility] Comment on above: Performed By: #### C R LYTES, CR GLU, LACT, CR BGA, CR ICA, CR COOX #### [facility] [address] [place] [address], Carboxyhemoglobin (BldA) [Mass fraction] 1.5 % NINF - 3.0 % [facility] Hematocrit (BldA) [Volume fraction] 37.6 % 36.0 - 46.0 % [facility] Hemoglobin (Bld) [Mass/Vol] 12.2 g/dL 12.0 - 16.0 g/dL [facility] Methemoglobin (BldA) [Mass fraction] 0.8 % NINF - 3.0 % [facility] Oxyhemoglobin (BldA) [Mass fraction] 96.5 % 95.0 - 100.0 % [facility] Consultson 07-14-2022 Consumer Bank[employer] Authentication Interface Message Text Surgical ICU H AND P Isabelle Hewitt [id number] HPI: Ms Hewitt is a 47 year [...] floor (more content not included)... Normal [facility] [employer] [facility] ELECTROLYTESon 07-14-2022 Chloride [Moles/Vol] 107 mmol/L Normal 97-111 [facility] Comment on above: Performed By: #### C R LYTES, CR GLU, LACT, CR BGA, CR ICA, CR COOX #### S PATHOLOGY LABORATORY [address] [place] [address], Potassium [Moles/Vol] 3.7 mmol/L Normal 3.3-5.3 [facility] Comment on above: Performed By: #### C R LYTES, CR GLU, LACT, CR BGA, CR ICA, CR COOX #### S PATHOLOGY LABORATORY [address] [place] [address], Sodium [Moles/Vol] 142 mmol/L Normal 135-148 [facility] Comment on above: Performed By: #### C R LYTES, CR GLU, LACT, CR BGA, CR ICA, CR COOX #### [facility] [address] [place] [address], Chloride [Moles/Vol] 107 mmol/L 97 - 111 mmol/L [facility] Potassium [Moles/Vol] 3.7 mmol/L 3.3 - 5.3 mmol/L [facility] Sodium [Moles/Vol] 142 mmol/L 135 - 148 mmol/L [facility] GLUCOSE, FINGERSTICK-IN OFFI CEon 07-14-2022 Glucose [Mass/Vol] 156 mg/dL High 68-110 [facility] Comment on above: Performed By: #### 8 2948 ####NURSING GLUCOSE [id number] [place], [address] Glucose [Mass/Vol] 156 mg/dL High 68 - 110 mg/dL [facility] Interpretation and review of laboratory results Abnormal [facility] Glucose [Mass/Vol] 110 mg/dL Normal 68-110 [facility] Comment on above: Performed By: #### 8 2948 ####NURSING GLUCOSE [id number] [place], [address] Glucose [Mass/Vol] 110 mg/dL 68 - 110 mg/dL [facility] Interpretation and review of laboratory results Normal [facility] GLUCOSE, WHOLE BLOODon 07-14 CR GLU 93 mg/dL Normal 68-98 [facility] Comment on above: Performed By: #### C R LYTES, CR GLU, LACT, CR BGA, CR ICA, CR COOX ####[facility] PATHOLOGY [id number] [place], [place], Glucose [Mass/Vol] 93 mg/dL 68 - 98 mg/dL [facility] LACTIC ACIDon 07-14-2022 CR LACT 2.0 mmol/L Normal 0.5-2.0 [facility] Comment on above: Performed By: #### C R LYTES, CR GLU, LACT, CR BGA, CR ICA, CR COOX #### [facility] [address] [place], [place], Lactate [Moles/Vol] 2.0 mmol/L 0.5 - 2. 0 mmol/L [facility] - Chemistry and C hemistry - challengeOrdered By: Osmar Zamora on 07-14-2022 HCO3 (Bld) [Moles/Vol] 24 mmol/L 22 - 28 mmol/L [facility] No Panel Informationon 07-14 Interpretation and review of laboratory results Normal [facility] No Panel InformationOrdered By: Osmar Zamora on 07-14-2022 Interpretation and review of laboratory results Abnormal [facility] OP Noteon 07-14-2022 Consumer Banker Authentication Interface Message Text Name: ISABELLE HEWITT MR#: [id number] ENC#: [id number] Date of Procedure: 07/14/2022 ATTENDING SURGEON: Rikki [...] a combination of osteotomes and a Kaufman lieutenant ballistics. On both sides, the inferior alveolar nerve [...] Fixation on both sides was consisted of Beata dog bone shaped plate with 3 monocortical [...] anticipated 3 mm of anterior impaction accomplished. Earp prebent orthognathic plates were used at the [...] n (more content not included)... Normal [facility] URINE HCG-IN OFFICEon 2021 HCG ( [...] FINDINGS: IMPRESSION: Single view of the filter [place] with linear radiopaque foreign body compatible with retained needle. MACRO: None Normal [facility] XR Skull PA and Right latera l and Left lateralon 07-14-2022 EXAMINATION: XR SKUL L PA+LATERAL 07/14/2022 10:15 AM CLINICAL HISTORY: Reason for Exam: retained object. ASSOCIATED DIAGNOSIS: ORDERING PROVIDER: [employer]RIG[employer]OLOGISTS NOTE: Image of filter for retained surgical needle per Dr. Rodrigues. COMPARISON: None FINDINGS: IMPRESSION: Single view of the filter [place] with linear radiopaque foreign body compatible with retained needle. MACRO: None RADIOLOGY Jerel Guzman MD - 07/14/2022 EXAMINATION: XR SKULL PA+LATERAL 07/14/2022 10:15 AM CLINICAL HISTORY: Reason for Exam: retained object. ASSOCIATED DIAGNOSIS: ORDERING PROVIDER: [employer]ODRIGUES [employer]CHNOLOGISTS NOTE: Image of filter for retained surgical needle per Dr. Rodrigues. COMPARISON: None FINDINGS: IMPRESSION: Single view of the filter [place] with linear radiopaque foreign body compatible with retained needle. 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 Normal [facility] [employer] [facility] Telephone Encounteron 2021 Consumer [employer]er Authentication Interface Message Text Patient states she is faxing over paperwork for her time off of work d/t surgery tomorrow, 07/14. Patient would like a call when this is received if possible. Please call [phone]. Patient informed it might not be possible, just in case. Thank you! Normal [facility] [employer] [facility] Telephone Encounteron 2021 Consumer [employer]er Authentication Interface Message Text 1800: Contacted pt and informed her to call the ENT office to schedule appt with Dr Moreno s/p jaw surgery in about 3 months due to healing time. Pt verbalized understanding. Latoya Manzo RN Normal [facility] [employer] [facility] Consumer Banker Authentication Interface Message Text Dr. Joel, Patient calling stating that she is going forward with the jaw surgery that you recommended next 07/14/22. Patient would like to know what the next step is for after the surgery. PT: [phone] Thanks, D Normal [facility] [employer] [facility] ABO RH TYPEon 07-08-2022 ABO and Rh group Nom (Bld) Blood group B Rh(D) positive Normal [facility] [employer] [facility] Comment on above: Performed By: #### M MILO Alan, CH8 #### [facility] [address] [place], [place], CBC panel Auto (Bld)on 07-08 Erythrocyte distribution width (RBC) [Ratio] 13.4 % 11.5 - 14.5 % [facility] Hematocrit (Bld) [Volume fraction] 42.2 % 36.0 - 46.0 % [facility] Hemoglobin (Bld) [Mass/Vol] 14.3 g/dL 12.0 - 15.0 g/dL [facility] Interpretation and review of laboratory results Normal [facility] MCH (RBC) [Entitic mass] 33.1 pg 26.0 - 34.0 pg [facility] MCHC (RBC) [Mass/Vol] 33.9 g/dL 32.0 - 35.9 g/dL [facility] MCV (RBC) [Entitic vol] 98 fL 80 - 100 fL [facility] Platelet mean volume (Bld) [Entitic vol] 8.8 fL 7.5 - 11.2 fL [facility] Platelets (Bld) [#/Vol] 274 10*3/uL 150 - 400 K/uL [facility] RBC (Bld) [#/Vol] 4.32 10*6/uL [facility] WBC (Bld) [#/Vol] 7.2 10*3/uL 4.5 - 11.5 K/uL [facility] COMPLETE BLOOD COUNTon 07-08 Erythrocyte distribution width (RBC) [Ratio] 13.4 % Normal 11.5-14.5 [facility] Comment on above: Performed By: #### C BC ####S PATHOLOGY [id number] [place], [place], Hematocrit (Bld) [Volume fraction] 42.2 % Normal 36.0-46.0 [facility] Comment on above: Performed By: #### C BC ####S PATHOLOGY [id number] [place], [place], Hemoglobin (Bld) [Mass/Vol] 14.3 g/dL Normal 12.0-15.0 [facility] Comment on above: Performed By: #### C BC ####S PATHOLOGY [id number] [place], [place], MCH (RBC) [Entitic mass] 33.1 pg Normal 26.0-34.0 [facility] Comment on above: Performed By: #### C BC ####[facility] PATHOLOGY [id number] [place], [place], MCHC (RBC) [Mass/Vol] 33.9 g/dL Normal 32.0-35.9 [facility] Comment on above: Performed By: #### C BC ####[facility] PATHOLOGY [id number] [place] [address], MCV (RBC) [Entitic vol] 98 fL Normal 80-100 [facility] Comment on above: Performed By: #### C BC ####[facility] PATHOLOGY [id number] [place] [address], Platelet mean volume (Bld) [Entitic vol] 8.8 fL Normal 7.5-11.2 [facility] Comment on above: Performed By: #### C BC ####[facility] PATHOLOGY [id number] [place] [address], Platelets (Bld) [#/Vol] 274 10*3/uL Normal 150-400 The [facility] Comment on above: Performed By: #### C BC ####[facility] PATHOLOGY [id number] [place], [place], RBC (Bld) [#/Vol] 4.32 10*6/uL Normal 4.00-5.20 [facility] Comment on above: Performed By: #### C BC ####[facility] PATHOLOGY [id number] [place] [address], WBC (Bld) [#/Vol] 7.2 10*3/uL Normal 4.5-11.5 [facility] Comment on above: Performed By: #### C BC ####[facility] PATHOLOGY [id number] [place], [place], Laboratory - Blood bankon ABO and Rh group Nom (Bld) Blood group B Rh(D) positive [facility] Panel Informationon 07-08 [facility] PSE Appt H AND Neftali Consumer [employer] Authentication Interface Message Text Patient was identified by name and date of . Edwina Daniel Bill of rights provided to patient Normal [facility] Patient Instructionson 07-08 Consumer Banker Authentication Interface Message Text On the morning [...] for pain Please hold all Vitamin E, [place] 3, fish oil and herbal supplements for 1 week prior to surgery Normal [facility] TYPE AND SCREENon 07-08-2022 ABO and Rh group Nom (Bld) No Previous Results [facility] Comment on above: Patient does not req uire a 2nd sample drawn prior to surgery date of 07/14/2022___. Specimen meets Blood Bank's Pre-Surgical Protocol and is valid within 14 days from date of collection but will at midnight on the day of approved Surgery. Corrected Result : 07/08/2022 17:16:22 : By Transfusion Medicine Blood group antibody screen Ql Negative [facility] ABO and Rh group Nom (Bld) Blood group B Rh(D) positive Normal [facility] Comment on above: Performed By: #### MILO Mattson, ARCHIE #### [facility] [address] [place] [address], [phone] ABO and Rh group Nom (Bld) No Previous Results Normal [facility] Comment on above: Result Comment: Deepa [...] MILO Mattson CH8 #### [facility] [address] [place] [address], ABSC INT Negative Normal [facility] Comment on above: Performed By: #### M MILO Alan CH8 #### [facility] [address] [place], [place], FREE T4on 07-07-2022 Free T4 [Mass/Vol] 0.83 ng/dL Normal 0.76-1.46 [facility] Comment on above: Performed By: #### F T4 #### [facility] [address] [address] [address] Stephanie Gibbs TSHon 07-07-2022 TSH 3.715 uIU/mL Normal 0.358-3.74 0 [facility] Comment on above: Performed By: #### C BC #### [facility] [address] [address] [address] Stephanie Gibbs PSE Appt H AND Neftali [employer] Authentication Interface Message Text Error Normal [facility] Progress Noteson 07-02-2022 Consumer Banker Authentication Interface Message Text Patient was seen in the [facility] clinic for alginate impressions of the edentulous maxilla and CBCT with denture in place. Seferino Vaz DMD [facility] Resident Normal [facility] Consumer Banker Authentication Interface Message Text ORAL SURGERY CLINIC FOLLOW UP VISIT Patient was seen in the [facility] clinic for alginate impressions of the edentulous maxilla and CBCT with denture in place. Seferino Vaz DMD [facility] Resident ms. Normal [facility] Patient Instructionson 06-18 Consumer [employer]er Authentication Interface Message Text Maxillomandibular advancement surgery, [...] daytime fatigue and inconsistent sleep. Normal [facility] [employer] [facility] Progress Noteson 06-18-2022 Consumer Banker Authentication Interface Message Text FS PATIENT VISIT CHIEF COMPLAINT: sleep apnea HISTORY OF PRESENT ILLNESS: Patient presents for evaluation for surgical treatment of DIONNE. She is extremely symptomatic from her DIONNE, and suffers from CPAP intolerance. [place] sleepiness scale is 18. Patient is starting [...] on 06/18/2022, and Digital version in Dentistry [employer] system. Airway measurements are very small compared to norms. Retrognathic mandible. DIAGNOSIS: Obstructive sleep apnea [324756] TREATMENT: Exam, Panorex evaluated, and pictures/models taken [...] for (more content not included)... Normal [facility] [employer] [facility] Progress Noteson 06-15-2022 Consumer Banker Authentication Interface Message Text CC: sleep disordered [...] nerve stimulator implanted following MMA Normal [facility] [employer] [facility] Anesthesia Attestationon Consumer [employer]er Authentication Interface Message Text Anesthesia Attestation ATTESTATION OF INFORMED CONSENT FOR ANESTHESIA Anesthesia options were discussed with the patient and/or legal tax compliance representative. The risks, benefits and alternatives were reviewed. Questions regarding anesthesia were answered. Patient and/or legal tax compliance representative knows such anesthetics and procedures may be performed by Resident physicians, Certified Anesthesiologist Assistants, or Certified Nurse Anesthetists under the supervision of a physician. The patient /or the patient's legal tax compliance representative agree with the plan for anesthesia. Normal [facility] [employer] [facility] Anesthesia Postprocedure Lauren luationon 06-03-2022 Consumer Banker Authentication Interface Message Text Anesthesia Postoperative Assessment: [...] EVENTS: No notable events documented. Normal [facility] [email or web address] [facility] Anesthesia Preprocedure Eval uationon 06-03-2022 Consumer Banker Authentication Interface Message Text ASA: 2 No [...] the history and physical examination. Normal [facility] Consumer Banker Authentication Interface Message Text Patient taken to [...] Room Facts: Surgeon(s): Yi Moreno MD Anesthesiologist: Torie Swenson MD CAA: Jamey Rossi CAA BRONCHOSCOPY, [...] None Lines, Drains, Airways Peripheral IV Access: 06/03/22 131 22 gauge Right Hand (Active) Site Assessment [...] report was received. CINTIA Patel Normal [facility] [employer] [facility] Brief Operative Noteon 06-03 Consumer [employer]er Authentication Interface Message Text Brief Operative Note PACU 19 Isabelle Hewitt 47 year old female Surgical Contact Serial Number: [id number] Preoperative Diagnosis: DIONNE (obstructive sleep apnea) [G47.33] Postoperative Diagnosis: * DIONNE (obstructive sleep apnea) [G47.33] Procedures: No data filed Surgeon(s): Surgeon(s): Yi Moreno MD Staff: * No surgical staff found * Anesthesia: Consult Anesthesiologist: Torie Swenson MD CAA: Jamey Rossi CAA Specimen(s): * No specimens in log * Estimated Blood Loss: less than 5 cc Lines/Drains: Peripheral IV Access: 06/03/22 1314 22 gauge Right Hand (Active) Site Assessment Dressing intact;WNL 06/03/22 1314 Infusion Status Port #1 Infusing 06/03/22 1314 Temporarily Retained Foreign Object: No Findings: Significant [...] Brown PA-C 06/03/2022 2:48 PM Normal [facility] [employer] [facility] OP Noteon 06-03-2022 Consumer Banker Authentication Interface Message Text Name: ISABELLE HEWITT MR#: [id number] [facility]#: [id number] Date of Procedure: 06/03/2022 ATTENDING SURGEON: Yi [...] point she was taken back to recovery. Yi Moreno MD [employer]/ Dict: 06/03/2022 15:35:21 TRANS: 06/04/2022 07:02:00 JOB: [id number] D[employer]Job#: [id number] Normal [facility] [employer] [facility] Progress Noteson 06-03-2022 Consumer Banker Authentication Interface Message Text Discharge instructions reviewed in preop with patient. Patient verbalized understanding. No questions at this time. Normal [facility] [employer] [facility] Telephone Encounteron 2021 Consumer Banker Authentication Interface Message Text Pre-op COVID test results received AND scanned into [employer]. Results NEGATIVE on 05/31/2022. Scheduled for DISE on 06/03/2022. Normal [facility] [employer] [facility] COVID Quick Testingon 2021 Result Negative [employer] Other PSE Call H AND Neftali Consumer Banker Authentication Interface Message Text Telephone History Isabelle Hewitt, [id number] 05/28/2022 47 year old 190 lbs 5' [...] capsul (more content not included)... Normal [facility] [employer] [facility] Telephone Encounteron 2021 Consumer Banker Authentication Interface Message Text Patient is scheduled for DISE on 06/03/2022. Prefers to complete pre-op COVID testing closer to home. Instructed to obtain testing 48-72 hours prior to surgery and bring copy of results on day of surgery. PSE contact information provided. Normal [facility] [employer] [facility] Addendum Noteon 05-26-2022 Consumer Banker Authentication Interface Message Text Addended by: YI MORENO on: 05/26/2022 05:25 PM Modules accepted: Orders Normal [facility] [employer] [facility] Telephone Encounteron 2021 Consumer Banker Authentication Interface Message Text Arrangements to be made for pre-op COVID testing per ENT request. Normal [facility] [employer] [facility] MRI PITUITARY WO W CONon MRI [...] WILEY POE Date: 2022-05-18 13:10 Normal [facility] US PELVIS AND TRANSVAGon US PELVIS AND [...] MADDI WINSTON Date: 2022-05-11 16:51 Normal [facility] ESTRADIOLon 05-08-2022 Estradiol 16.3 pg/mL Normal [facility] Comment on above: Result Comment: Adul t Female: Follicular phase 12.5 - 166.0 Ovulation phase 85.8 - 498.0 Luteal phase 43.8 - 211.0 Postmenopausal <6.0 - 54.7 1st trimester 215.0 - >4300.0 Salma ECLIA methodology Performed By: #### C BC #### [facility] [address] [place] [address] Dr. Stephanie Gibbs FSHon 05-08-2022 FSH 11.3 mIU/mL Normal [facility] Comment on above: Result Comment: Adul t Female: Follicular phase 3.5 - 12.5 Ovulation phase 4.7 - 21.5 Luteal phase 1.7 - 7.7 Postmenopausal 25.8 - 134.8 Performed By: #### C BC #### [facility] [address] [place] [address] Dr. Stephanie Gibbs LUTEINIZING HORMONE (LH)on 0 05-08-2022 LH 4.7 mIU/mL Normal [facility] Comment on above: Result Comment: Adul t Female: Follicular phase 2.4 - 12.6 Ovulation phase 14.0 - 95.6 Luteal phase 1.0 - 11.4 Postmenopausal 7.7 - 58.5 Performed By: #### L BCLH #### [facility] [address] [place] [address] Dr. Stephanie Gibbs PROGESTERONEon 05-08-2022 Progesterone 0.2 ng/mL Normal [facility] Comment on above: Result Comment: Foll icular phase 0.1 - 0.9 Luteal phase 1.8 - 23.9 Ovulation phase 0.1 - 12.0 First trimester 11.0 - 44.3 Second trimester 25.4 - 83.3 Third trimester 58.7 - 214.0 Postmenopausal 0.0 - 0.1 Performed By: #### P ROGES #### [facility] [address] [place] [address] Dr. Stephanie Gibbs PROLACTINon 05-08-2022 Prolactin 43.0 ng/mL Critically high 4.8-23.3 [facility] Comment on above: Performed By: #### F T4 #### [facility] [address] [place] [address] Dr. Stephanie Gibbs CBC AUTO DIFFon 05-07-2022 BASO # 0.1 103/ul Normal 0.0-0.1 [facility] Comment on above: Performed By: #### C BC #### [facility] [address] [place] [address] Dr. Stephanie Gibbs Basophils/100 WBC (Bld) 1.0 % Normal 0.2-2.0 [facility] Comment on above: Performed By: #### C BC #### [facility] [address] [place] [address] Dr. Stephanie Gibbs EO # 0.2 103/ul Normal 0.0-0.7 [facility] Comment on above: Performed By: #### C BC #### [facility] [address] [place] [address] Dr. Stephanie Gibbs Eosinophils/100 WBC (Bld) 2.7 % Normal 0.9-7.0 [facility] Comment on above: Performed By: #### C BC #### [facility] [address] [place] [address] Dr. Stephanie Gibbs Erythrocyte distribution width (RBC) [Ratio] 13.0 % Normal 11.0-15.0 [facility] Comment on above: Performed By: #### C BC #### [facility] [address] [place] [address] Dr. Stephanie Gibbs Hematocrit (Bld) [Volume fraction] 39.0 % Normal 36.0-48.0 [facility] Comment on above: Performed By: #### C BC #### [facility] [address] [place] [address] Dr. Stephanie Gibbs Hemoglobin (Bld) [Mass/Vol] 13.0 g/dL Normal 12.0-16.0 [facility] Comment on above: Performed By: #### C BC #### [facility] [address] [place] [address] Dr. Stephanie Gibbs IG # 0.03 10e3/ul Normal 0.00-0.03 [facility] Comment on above: Performed By: #### C BC #### [facility] [address] [place] [address] Dr. Stephanie Gibbs IG % 0.4 % Normal 0.0-0.5 [facility] Comment on above: Performed By: #### C BC #### [facility] [address] [place] [address] Dr. Stephanie Gibbs LYMPH # 2.4 103/ul Normal 1.2-3.8 [facility] Comment on above: Performed By: #### C BC #### [facility] [address] [place] [address] Dr. Stephanie Gibbs Lymphocytes/100 WBC (Bld) 33.8 % Normal 20.5-60.0 [facility] Comment on above: Performed By: #### C BC #### [facility] [address] [place] [address] Dr. Stephanie Gibbs MANUAL DIFF REQ NO Normal [facility] Comment on above: Performed By: #### C BC #### [facility] [address] [place] [address] Dr. Stephanie Gibbs MCH (RBC) [Entitic mass] 32.2 pg Normal 26.7-34.0 [facility] Comment on above: Performed By: #### C BC #### [facility] [address] [place] [address] Dr. Stephanie Gibbs MCHC (RBC) [Mass/Vol] 33.3 g/dL Normal 29.9-35.2 [facility] Comment on above: Performed By: #### C BC #### [facility] [address] [place] [address] Dr. Stephanie Gibbs MCV (RBC) [Entitic vol] 96.5 fL Normal 81.0-99.0 [facility] Comment on above: Performed By: #### C BC #### [facility] [address] [place] [address] Dr. Stephanie Gibbs MONO # 0.4 103/ul Normal 0.3-0.8 [facility] Comment on above: Performed By: #### C BC #### [facility] [address] [place] [address] Dr. Stephanie Gibbs Monocytes/100 WBC (Bld) 5.9 % Normal 1.7-12.0 [facility] Comment on above: Performed By: #### C BC #### [facility] [address] [place] [address] Dr. Stephanie Gibbs NEUT # 4.0 103/ul Normal 1.4-6.5 [facility] Comment on above: Performed By: #### C BC #### [facility] [address] [place] [address] Dr. Stephanie Gibbs Neutrophils/100 WBC (Bld) 56.2 % Normal 43.0-75.0 [facility] Comment on above: Performed By: #### C BC #### [facility] [address] [address] [address] Stephanie Gibbs Platelet mean volume (Bld) [Entitic vol] 9.8 fL Normal 9.5-13.5 [facility] Comment on above: Performed By: #### C BC #### [facility] [address] [address] [address] Stephanie Gibbs PLT 245 103/ul Normal 150-450 [facility] Comment on above: Performed By: #### C BC #### [facility] [address] [address] [address] Stephanie Gibbs RBC 4.04 106/ul Critically low 4.20-5.40 [facility] Comment on above: Performed By: #### C BC #### [facility] [address] [place] [address] Dr. Stephanie Gibbs WBC 7.2 103/ul Normal 4.0-11.0 [facility] Comment on above: Performed By: #### C BC #### [facility] [address] [place] [address] Dr. Stephanie Gibbs FREE T4on 05-07-2022 Free T4 [Mass/Vol] 0.69 ng/dL Critically low 0.76-1.46 [facility] Comment on above: Performed By: #### C BC #### [facility] [address] [place] [address] Dr. Stephanie Gibbs GLYCOHEMOGLOBIN A1Con 2021 ADA RECOMMENDATION SEE BELOW Normal [facility] Comment on above: Result Comment: ADA RECOMMENDED LIMIT 4.0 - 6.0 ADA THERAPEUTIC TARGET < 7.0 ACTION SUGGESTED > 7.0 Performed By: #### C BC #### [facility] [address] [address] [address] Stephanie Gibbs Glucose [Mass/Vol] 128 mg/dL Normal [facility] Comment on above: Performed By: #### C BC #### [facility] [address] [place] [address] Dr. Stephanie Gibbs HbA1c (Bld) [Mass fraction] 6.1 % Normal 4.5-6.2 [facility] Comment on above: Performed By: #### C BC #### [facility] [address] [address] [address] Stephanie Gibbs TSHon 05-07-2022 TSH 2.391 uIU/mL Normal 0.358-3.74 0 [facility] Comment on above: Performed By: #### F T4 #### [facility] [address] [address] [address] Stephanie Gibbs Progress Noteson 03-29-2022 Consumer [employer] Authentication Interface Message Text .Documentation: Mode: Telephone Patient Home Phone: Patient Patient Cell Preferred phone: [phone] Consent: I confirmed patient understanding of the [...] seen on prior sleep endoscopy Normal [facility] FREE T4on 03-09-2022 Free T4 [Mass/Vol] 1.08 ng/dL Normal 0.76-1.46 [facility] Comment on above: Performed By: #### F T4 #### [facility] [address] [place], [place] [address] Dr. Stephanie Gibbs LIPID PROFILEon 03-09-2022 CHOL-HDL RATIO NORM SEE BELOW Normal [facility] Comment on above: Result Comment: 3.3 - 4.4 LOW RISK 4.4 - 7.1 AVERAGE RISK 7.1 - 11.0 MODERATE RISK >11.0 HIGH RISK Performed By: #### F T4 #### [facility] [address] [address] [address] Stephanie Gibbs Cholesterol [Mass/Vol] 205 mg/dL Critically high <=200 [facility] Comment on above: Performed By: #### F T4 #### [facility] [address] [place] [address] Dr. Stephanie Gibbs Cholesterol in HDL [Mass/Vol] 44 mg/dL Normal 40-60 [facility] Comment on above: Performed By: #### F T4 #### [facility] [address] [place] [address] Dr. Stephanie Gibbs Cholesterol in LDL [Mass/Vol] 126.6 mg/dL Normal [facility] Comment on above: Performed By: #### F T4 #### [facility] [address] [place] [address] Dr. Stephanie Gibbs Cholesterol.total/C holesterol in HDL [Mass ratio] 4.7 {ratio} Normal [facility] Comment on above: Performed By: #### F T4 #### [facility] [address] [place] [address] Dr. Stephanie Gibbs HDL NORMAL > or = 60 mg/dl - LO W CARDIOVASCULAR RISK <40 mg/dl - HIGH CARDIOVASCULAR RISK Normal [facility] Comment on above: Performed By: #### F T4 #### [facility] [address] [place] [address] Dr. Stephanie Gibbs LDL CALC NORMAL SEE BELOW Normal [facility] Comment on above: Result Comment: <100 mg/dl OPTIMAL 100 - 129 mg/dl NEAR OR ABOVE OPTIMAL 130 - 159 mg/dl BORDERLINE HIGH 160 - 189 mg/dl HIGH >190 mg/dl VERY HIGH Performed By: #### F T4 #### [facility] [address] [place] [address] Dr. Stephanie Gibbs Triglyceride [Mass/Vol] 172 mg/dL Critically high <=150 [facility] Comment on above: Performed By: #### F T4 #### [facility] [address] [place] [address] Dr. Stephanie Gibbs VLDL CALC 34.4 mg/dL Normal [facility] Comment on above: Performed By: #### F T4 #### [facility] [address] [place] [address] Dr. Stephanie Gibbs PROF 14(COMP METB)on 022 Albumin [Mass/Vol] 3.7 g/dL Normal 3.4-5.0 [facility] Comment on above: Performed By: #### F T4 #### [facility] [address] [place] [address] Dr. Stephanie Gibbs Albumin/Globulin [Mass ratio] 0.8 {ratio} Normal [facility] Comment on above: Performed By: #### F T4 #### [facility] [address] [place] [address] Dr. Stephanie Gibbs ALP [Catalytic activity/Vol] 121 U/L Critically high 46-116 [facility] Comment on above: Performed By: #### F T4 #### [facility] [address] [place] [address] Dr. Stephanie Gibbs ALT [Catalytic activity/Vol] 39 U/L Normal 14-59 [facility] Comment on above: Performed By: #### F T4 #### [facility] [address] [place] [address] Dr. Stephanie Gibbs Anion gap [Moles/Vol] 12.6 mmol/L Normal [facility] Comment on above: Performed By: #### F T4 #### [facility] [address] [place] [address] Dr. Stephanie Gbibs AST [Catalytic activity/Vol] 21 U/L Normal 15-37 [facility] Comment on above: Performed By: #### F T4 #### [facility] [address] [place] [address] Dr. Stephanie Gibbs Bilirubin [Mass/Vol] 0.4 mg/dL Normal 0.2-1.0 [facility] Comment on above: Performed By: #### F T4 #### [facility] [address] [place] [address] Dr. Stephanie Gibbs Calcium [Mass/Vol] 9.1 mg/dL Normal 8.5-10.1 [facility] Comment on above: Performed By: #### F T4 #### [facility] [address] [place] [address] Dr. Stephanie Gibbs Chloride [Moles/Vol] 102 mmol/L Normal 98-107 [facility] Comment on above: Performed By: #### F T4 #### [facility] [address] [place] [address] Dr. Stephanie Gibbs CO2 [Moles/Vol] 28.1 mmol/L Normal 21.0-32.0 [facility] Comment on above: Performed By: #### F T4 #### [facility] [address] [place] [address] Dr. Stephanie Gibbs Creatinine [Mass/Vol] 0.95 mg/dL Normal 0.55-1.02 [facility] Comment on above: Performed By: #### F T4 #### [facility] [address] [place] [address] Dr. Stephanie Gibbs EGFR-AF SLOVENIAN >60 Normal >=60 [facility] Comment on above: Performed By: #### F T4 #### [facility] [address] [place] [address] Dr. Stephanie Gibbs EGFR-NON AF SLOVENIAN >60 Normal >=60 [facility] Comment on above: Performed By: #### F T4 #### [facility] [address] [place] [address] Dr. Stephanie Gibbs Globulin (S) [Mass/Vol] 4.8 g/dL Normal [facility] Comment on above: Performed By: #### F T4 #### [facility] [address] [place] [address] Dr. Stephanie Gibbs Glucose [Mass/Vol] 106 mg/dL Normal 74-106 [facility] Comment on above: Performed By: #### F T4 #### [facility] [address] [place] [address] Dr. Stephanie Gibbs Potassium [Moles/Vol] 3.7 mmol/L Normal 3.5-5.1 [facility] Comment on above: Performed By: #### F T4 #### [facility] [address] [address] [address] Stephanie Gibbs Protein [Mass/Vol] 8.5 g/dL Critically high 6.4-8.2 T [facility] Comment on above: Performed By: #### F T4 #### [facility] [address] [address] [address] Stephanie Gibbs Sodium [Moles/Vol] 139 mmol/L Normal 136-145 [facility] Comment on above: Performed By: #### F T4 #### [facility] [address] [address] [address] Stephanie Gibbs Urea nitrogen [Mass/Vol] 14.0 mg/dL Normal 7.0-18.0 [facility] Comment on above: Performed By: #### F T4 #### [facility] [address] [address] [address] Stephanie Gibbs Urea nitrogen/Creatinine [Mass ratio] 14.7 mg/mg Normal [facility] Comment on above: Performed By: #### F T4 #### [facility] [address] [address] [address] Stephanie Gibbs TSHon 03-09-2022 TSH 0.446 uIU/mL Normal 0.358-3.74 0 [facility] Comment on above: Performed By: #### F T4 #### [facility] [address] [address] [address] Stephanie Gibbs Telephone Encounteron 2021 Consumer [employer] Authentication Interface Message Text Patient calling in checking on status of [employer] FMLA paperwork. I let her know I have it to the nurse last week and we are working on it. Patient also asking for letter to be typed up for her to return to work on 03/15. Caar- Are you able to put letter together for her and then I will email to patient. Also can you verify you have her FMLA paperwork? Patient states deadline to turn it in is 03/19/22. #: [phone] Normal [facility] [place] Care Plan Noteon 02-26-2022 Consumer Banker Authentication Interface Message Text Problem: Routine Care: [...] met Outcome: Adequate for Discharge Normal [facility] Consumer Banker Authentication Interface Message Text Problem: Routine Care: [...] will be met Outcome: Progressing Normal [facility] Anesthesia Attestationon Consumer [employer]er Authentication Interface Message Text Anesthesia Attestation ATTESTATION OF INFORMED CONSENT FOR ANESTHESIA Anesthesia options were discussed with the patient and/or legal tax compliance representative. The risks, benefits and alternatives were reviewed. Questions regarding anesthesia were answered. Patient and/or legal tax compliance representative knows such anesthetics and procedures may be performed by Resident physicians, Certified Anesthesiologist Assistants, or Certified Nurse Anesthetists under the supervision of a physician. The patient /or the patient's legal tax compliance representative agree with the plan for anesthesia. Normal [facility] Anesthesia Postprocedure Lauren luationon 02-25-2022 Consumer [employer] Authentication Interface Message Text Anesthesia Postoperative Assessment: [...] ANESTHESIA COMPLICATIONS: No complications documented. 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 Normal [facility] Anesthesia Transfer Of Careo n 02-25-2022 Consumer Banker Authentication Interface Message Text Patient taken to [...] Maite Youssef MD CAA: Mariaa Meneses CAA APPLE PICKER: Cari Hurtado APRN-CRNA Watch And Clock Maker And Repairer: Carol Barrera MD Anesthesia Student: Prema Norris [...] of understanding of the report was received. PADMINI Chiang Normal [facility] Blood Attestationon 02-26-20 Consumer [employer] Authentication Interface Message Text Blood Attestation ATTESTATION OF INFORMED CONSENT FOR BLOOD The transfusion of blood and/or blood components were discussed with the patient and/or legal tax compliance representative. The risks, benefits and alternatives were reviewed. Questions regarding blood transfusions were answered. The patient /or the patient's legal tax compliance representative agree with the plan for transfusion of blood and/or blood components. Normal [facility] Brief Operative Noteon 02-25 Consumer [employer]er Authentication Interface Message Text Brief Operative Note MAIN OR 11 Isabelle Hewitt 46 year old female Surgical Contact Serial Number: [id number] Preoperative Diagnosis: DIONNE (obstructive sleep apnea) [G47.33] Postoperative Diagnosis: * DIONNE (obstructive sleep apnea) [G47.33] Procedures: Surgical CPTs Procedures * PALATOPHARYNGOPLASTY No data filed Surgeon(s): Surgeon(s): Yi Moreno MD Staff: Scrub: Wiley Álvarez Deep Well Contractor Nurse: Mariaa Briseno; Dulce Allred; Babs Wells RN Sawyer Cork Slabs: Yi Piña MD; Unruly Biggs MD Anesthesia: Consult Anesthesiologist: Maite Youssef MD CAA: Mariaa Meneses CAA APPLE PICKER: Cari Hurtado APRN-CRNA Watch And Clock Maker And Repairer: Carol Barrera MD Anesthesia Student: Prema Norris [...] Moreno MD 02/25/2022 10:40 AM Normal [facility] Care Plan Noteon 02-25-2022 Consumer Banker Authentication Interface Message Text Problem: Routine Care: [...] will be met Outcome: Progressing Normal [facility] OP Noteon 02-25-2022 Consumer Banker Authentication Interface Message Text [id number] Isabelle Hewitt 1975 @[email or web address]@ @[email or web address]@ [phone] Preoperative diagnosis: 1. Obstructive sleep apnea 2. [...] to recovery in stable condition. Normal [facility] Progress Noteson 02-25-2022 Consumer Banker Authentication Interface Message Text No excessive swallowing. [...] with no areas of redness. Normal [facility] URINE HCG-IN OFFICEon 2021 HCG ( test) Ql (U) Negative Negative [facility] Interpretation and review of laboratory results Normal [facility] Negative Internal Control Negative Negative [facility] Positive Internal Control Positive Positive [facility] Telephone Encounteron 2021 Consumer Banker Authentication Interface Message Text PSE received pre-op COVID test results - NOT DETECTED on 02/23/2022. Document scanned into [employer]. Normal [facility] Covid-19 PCR (CVDTBH)on SARS-CoV-2 (COVID-19) RNA JOHNNIE+probe Ql (Unsp spec) Not detected Normal NOT DETECTED [facility] Comment on above: Result Comment: When diagnostic [...] for this test is supported by the [place] of Health and Human Service's declaration that [...] longer be used). Performed By: #### C BC #### [facility] [address] [address] [address] Stephanie Gibbs XR ABDOMEN (KUB) (SINGLE [...] pattern, large colonic fecal Stable left nephrolithiasis [employer] Phone: Radiology Study observation (narrative) [facility] Phone: XR ABDOMEN (KUB) (SINGLE AP VIEW)Ordered By: Adali Gill on 02-19-2022 [employer] Phone: EKG 12 [place]AD - PERFORMon 01-21 Diagnosis Normal sinus rhythm Nonspecific T wave abnormality Abnormal ECG No previous ECGs available Confirmed by OLGA MONTES ([id number]) on 02/17/2022 9:51:58 PM [facility] P wave [...] PSE contact information provided, order faxed to [facility] per patient request. Normal [facility] PSE Appt H AND Neftali Consumer Banker Authentication Interface Message Text Patient was identified by name and date of . Quinton Manzo Bill of rights provided to patient Normal [facility] Patient Instructionson 02-16 Consumer Banker Authentication Interface Message Text On the morning [...] for pain Please hold all Vitamin E, [place] 3, fish oil and herbal supplements for 1 week prior to surgery Normal [facility] Telephone Encounteron 2021 Consumer Banker Authentication Interface Message Text Arrangements to be made for pre-op COVID testing per ENT request. Normal [facility] FLUORO FOR SURGICAL PROCEDUR ESon 01-05-2022 Radiology exam is co mplete. No Radiologist dictation. Please follow up with ordering provider. PN RIS CONSOLIDATED , Urineon 2 Beta HCG ( test) Ql (U) Negative NEGATIVE [facility] Comment on above: Specimens with hCG l evels near the threshold of the test (25 mIU/mL) may give a negative or indeterminate result. In such cases, another test should be performed with a new specimen in 48-72 hours. If early is suspected clinically in this setting, correlation with quantitative serum b-hCG level is suggested. [employer] has confirmed the use of plasma for this test. This has not been cleared or approved by the U.S. Food and Drug Administration. The FDA has determined that such clearance is not necessary. [facility] Basic Metabolic Panelon 12-20 Anion gap [Moles/Vol] 8 mmol/L Low 9 - 17 mmol/L [facility] Calcium [Mass/Vol] 8.9 mg/dL 8.6 - 10. 4 mg/dL [facility] Chloride [Moles/Vol] 101 mmol/L 98 - 107 mmol/L [facility] CO2 [Moles/Vol] 29 mmol/L 20 - 31 mmol/L [facility] Creatinine [Mass/Vol] 0.87 mg/dL 0.50 - 0.90 mg/dL [facility] GFR >60 >60 mL/min [facility] GFR Non- >60 >60 mL/min [facility] Glucose [Mass/Vol] 98 mg/dL 70 - 99 mg/dL [facility] Interpretation and review of laboratory results Abnormal [facility] Potassium [Moles/Vol] 4.3 mmol/L 3.7 - 5.3 mmol/L [facility] Sodium [Moles/Vol] 138 mmol/L 135 - 144 mmol/L [facility] Urea nitrogen (BldV) [Mass/Vol] 8 mg/dL 6 - 20 mg/dL [facility] Urea nitrogen/Creatinine (Bld) [Mass ratio] 9 [facility] CBC with Auto Differentialon 12-30-2021 Absolute Eos # 0.38 [facility] th Absolute Immature Granulocyte 0.06 [facility] Absolute Lymph # 2.56 [facility] Absolute [place] [facility] Basophils (Bld) [#/Vol] 0.09 10*3/uL [facility] Basophils/100 WBC (Bld) 1 % 0 - 2 % [facility] Eosinophils/100 WBC (Bld) 4 % 1 - 4 % [facility] Hematocrit (Bld) [Volume fraction] 38.7 % 36.3 - 47.1 % [facility] Hemoglobin.gastroin testinal spec 1 Ql (Stl) 13.0 g/dL 11.9 - 15.1 g/dL [facility] Immature granulocytes/100 WBC (Bld) 1 % High 0 [facility] Interpretation and review of laboratory results Abnormal [facility] Lymphocytes/100 WBC (Bld) 27 % 24 - 43 % [facility] MCH (RBC) [Entitic mass] 33.1 pg 25.2 - 33.5 pg [facility] MCHC (RBC) [Mass/Vol] 33.6 g/dL 28.4 - 34.8 g/dL [facility] MCV (RBC) [Entitic vol] 98.5 fL 82.6 - 102.9 fL [facility] Monocytes/100 WBC (Bld) 7 % 3 - 12 % [facility] NRBC Automated 0.0 0.0 per 100 WBC [facility] Platelet distribution width (Bld) [Ratio] 12.9 % 11.8 - 14.4 % [facility] Platelet mean volume (Bld) [Entitic vol] 9.8 fL 8.1 - 13.5 fL [facility] Platelets (Bld) [#/Vol] 284 10*3/uL [facility] RBC (Bld) [#/Vol] 3.93 10*6/uL Low 3.95 - 5.11 m/uL [facility] Segmented neutrophils/100 WBC (Bld) 60 % 36 - 65 % [facility] Segs Absolute 5.62 [facility] WBC (Bld) [#/Vol] 9.4 10*3/uL [facility] Laboratory - Chemistry and C hemistry - challengeon 12-30-2021 GFR/1.73 sq M.predicted MDRD (S/P/Bld) [Vol rate/Area] [facility] Comment on above: Average GFR for 40-4 9 years old: 99 mL/min/1.73sq m Chronic Kidney Disease: <60 mL/min/1.73sq m Kidney failure: <15 mL/min/1.73sq m eGFR calculated using average adult body mass. Additional eGFR calculator available at: http://www.[employer]ap[employer]/multiple_crcl_2012.htm Stage 1: Some kidney damage normal GFR Stage 2: Mild kidney damage GFR 60-89 Stage 3: Moderate kidney damage GFR 30-59 Stage 4: Severe kidney damage GFR 15-29 Stage 5: Severe kidney damage GFR <15 ESRD - chronic treatment by dialysis or transplant XR ABDOMEN (KUB) (SINGLE AP VIEW)on 12-22-2021 Nonobstructed bowel- gas pattern. No definite renal or ureteral stones. [facility] EXAMINATION: ONE SUPINE XRAY VIEW(S) OF THE ABDOMEN 12/22/2021 5:15 pm COMPARISON: October 13, 2021 HISTORY: ORDERING SYSTEM PROVIDED HISTORY: Kidney stones TECHNOLOGIST PROVIDED HISTORY: kidney stones FINDINGS: Bowel gas pattern nonobstructed. Renal shadows partially obscured by bowel gas and fecal debris. No definite renal or ureteral stones. No acute osseous abnormality. [facility] Perry Neely DO - 12/22/2021 EXAMINATION: [...] pattern. No definite renal or ureteral stones. [facility] Work Phone: Radiology Study observation (narrative) [facility] Work Phone: XR ABDOMEN (KUB) (SINGLE AP VIEW)Ordered By: Perry Neely on 12-22-2021 [facility] Work Phone: Office Visit (Cardiology)on 12-02-2021 Follow-up visit [...] Recorded: 02Dec2021 03:38PM Heart Rate72, R Radial Xiivnxzs40 Kwmeocfob47 Height5 ft 2 in Jhsseg153 lb BMI Bxopxxqugv39.47 kg/m2 BSA Calculated1.84 Tobacco Useb) No PHQ-2 [...] Screening.on 022 Adult depression screening assessment No -[facility] y [facility] DO Work Phone: Tobacco use status [facility] b) No -[facility] [facility] [address] DO Work Phone: Office Visit [...] Weight Tips; Status:Complete - Retrospective Authorization; Done: [id number] Health Maintenance Depression Follow-up Visit Outpatient Follow-up Status: Complete - Retrospective Authorization Done: 14Oct2021 SocHx: Former smoker Tobacco Use Screening; Status:Complete; Done: 14Oct2021 Tobacco Use Screening; Status:Complete; Done: 14Oct2021 Unlinked Stop: Furosemide 40 MG Oral Tablet Stop: Potassium Chloride ER 20 MEQ Oral Tablet Extended Release Patient Instructions By signing my name below, IRicco LPN ,Scribe, attest that this documentation has been prepared under the direction and in the presence of Dr. Eileen Nichols MD. All medical record entries made by the Jesus Manuel were at my direction and personally dictated [...] 1 t (more content not included)... Normal [facility] Tobacco Screening.on 022 Adult depression screening assessment Yes [facility] [employer] y 250 DO Work Phone: Tobacco use status CPHS b) No [facility] y 250 DO Work Phone: Tobacco Screening. 1-Several days [facility] [employer] y 250 DO Work Phone: Tobacco Screening. 3-Nearly every day [facility] [employer] y 250 DO Work Phone: Tobacco Screening. 0-Not at all [facility] y 250 DO Work Phone: Tobacco Screening. 2-More than half the days [facility] [employer] y 250 DO Work Phone: Vital Signs Date Time Vital Sign Value Performing Clinician Facility 10-14-2023 12:37-0500 Body height 157.48 cm Gena Kirby Work Phone: [facility] 10-14-2023 12:37-0500 Body mass index (BMI) [Ratio] 28 kg/m2 Gena Kirby Work Phone: [facility] 10-14-2023 12:37-0500 Body temperature 99.4 [degF] Gena Aichholz Work Phone: [facility] 10-14-2023 12:37-0500 Body weight 69.62 kg Gena Aichholz Work Phone: [facility] 10-14-2023 12:37-0500 Diastolic blood pressure 94 mm[Hg] Gena Aichholz Work Phone: [facility] 10-14-2023 12:37-0500 Heart rate 81 /min Gena Aichholz Work Phone: [facility] 10-14-2023 12:37-0500 Respiratory rate 16 /min Gena Aichholz Work Phone: [facility] 10-14-2023 12:37-0500 SaO2% (BldA) [Mass fraction] 97 % Gena Aichholz Work Phone: [facility] 10-14-2023 12:37-0500 Systolic blood pressure 131 mm[Hg] Gena Aichholz Work Phone: [facility] 09-20-2023 15:30-0500 Body height 157.48 cm Wiley Mcmanus Other [facility] 09-20-2023 15:30-0500 Body mass index (BMI) [Ratio] 30.18 kg/m2 Wiley Mcmanus Other [facility] Other 09-20-2023 15:30-0500 Body weight 74.84 kg Wiley Mcmanus Other [facility] 08-08-2023 13:25-0500 Diastolic blood pressure 89 mm[Hg] Gena Aichholz Work Phone: [facility] 08-08-2023 13:25-0500 Heart rate 75 /min Gena Aichholz Work Phone: [facility] 08-08-2023 13:25-0500 Respiratory rate 16 /min Gena Aichholz Work Phone: [facility] 08-08-2023 13:25-0500 SaO2% (BldA) [Mass fraction] 99 % Gena Kirby Work Phone: [facility] 08-08-2023 13:25-0500 Systolic blood pressure 117 mm[Hg] Gena Kirby Work Phone: [facility] 08-08-2023 11:41-0500 Body height 157.48 cm Gena Kirby Work Phone: [facility] 08-08-2023 11:41-0500 Body weight 77.11 kg Gena Kirby Work Phone: [facility] 06-30-2023 09:20-0500 Body height 157.48 cm Majo Lyman Other [employer] Other 06-30-2023 09:20-0500 Body mass index (BMI) [Ratio] 30.18 kg/m2 Majo Lyman Other [employer] Other 06-30-2023 09:20-0500 Body weight 74.84 kg Majo Lyman Other [employer] Other 06-30-2023 09:20-0500 Diastolic blood pressure 87 mm[Hg] Majo Lyman Other [employer] Other 06-30-2023 09:20-0500 Systolic blood pressure 115 mm[Hg] Majo Lyman Other [employer] Other 06-07-2023 12:30-0400 Body height 157.48 cm Louise Johnson Other [employer] Other 06-07-2023 12:30-0400 Body mass index (BMI) [Ratio] 31.05 kg/m2 Louise Johnson Other [employer] Other 06-07-2023 12:30-0400 Body temperature 98 [degF] Louise Johnson Other [employer] Other 06-07-2023 12:30-0400 Body weight 77.02 kg Louise Johnson Other [employer] Other 06-07-2023 12:30-0400 Diastolic blood pressure 78 mm[Hg] Louise Johnson Other [employer] Other 06-07-2023 12:30-0400 Respiratory rate 18 /min Louise Johnson Other [employer] Other 06-07-2023 12:30-0400 SaO2% (BldA) [Mass fraction] 98 % Louise Johnson Other [employer] Other 06-07-2023 12:30-0400 Systolic blood pressure 117 mm[Hg] Louise Johnson Other [employer] Other 07-17-2022 04:28-0500 Body temperature 98.29 [degF] Rikki Rodrigues DMD, MD Work Phone: [employer] 07-17-2022 04:28-0500 Diastolic blood pressure 80 mm[Hg] Rikki Rodrigues DMD, MD Work Phone: [employer] 07-17-2022 04:28-0500 Heart rate 54 /min Rikki Rodrigues DMD, MD Work Phone: [employer] 07-17-2022 04:28-0500 Respiratory rate 18 /min Rikki Rodrigues DMD, MD Work Phone: [facility] 07-17-2022 04:28-0500 SaO2% (BldA) [Mass fraction] 96 % Rikki Rodrigues DMD, MD Work Phone: [facility] 07-17-2022 04:28-0500 Systolic blood pressure 109 mm[Hg] Rikki Rodrigues DMD, MD Work Phone: [facility] 07-14-2022 15:17-0500 Body mass index (BMI) [Ratio] 36.29 kg/m2 Rikki Rodrigues DMD, MD Work Phone: [employer] 07-14-2022 15:17-0500 Body weight 90 kg Rikki Rodrigues DMD, MD Work Phone: [facility] 07-14-2022 14:55-0500 Body height 157.5 cm Rikki Rodrigues DMD, MD [facility] 07-14-2022 09:01-0500 SaO2% (BldA) [Mass fraction] 98.8 % Rikki Rodrigues DMD, MD Work Phone: [facility] 07-08-2022 13:59-0500 Body height 157.5 cm Gena Holbrook APRN-TRACK REPAIRER Work Phone: [facility] 07-08-2022 13:59-0500 Body mass index (BMI) [Ratio] 35.96 kg/m2 Gena Holbrook APRN-TRACK REPAIRER Work Phone: [facility] 07-08-2022 13:59-0500 Body temperature 97.9 [degF] Gena Holbrook APRN-TRACK REPAIRER Work Phone: [facility] 07-08-2022 13:59-0500 Body weight 89.18 kg Gena Holbrook APRN-TRACK REPAIRER Work Phone: [facility] 07-08-2022 13:59-0500 Diastolic blood pressure 80 mm[Hg] Gena Holbrook APRN-TRACK REPAIRER [facility] 07-08-2022 13:59-0500 Heart rate 98 /min Gena Holbrook APRN-TRACK REPAIRER [facility]: [facility] 07-08-2022 13:59-0500 Respiratory rate 14 /min Gena Holbrook APRN-TRACK REPAIRER Work Phone: [facility] 07-08-2022 13:59-0500 SaO2% (BldA) [Mass fraction] 98 % Gena Holbrook APRN-TRACK REPAIRER Work Phone: [facility] 07-08-2022 13:59-0500 Systolic blood pressure 122 mm[Hg] Gena Holbrook APRN-TRACK REPAIRER Work Phone: [facility] 06-18-2022 15:09-0400 Diastolic blood pressure 89 mm[Hg] Rikki Rodrigues DMD, MD Work Phone: [facility] 06-18-2022 15:09-0400 Heart rate 117 /min Rikki Rodrigues DMD, MD Work Phone: [facility] 06-18-2022 15:09-0400 Systolic blood pressure 120 mm[Hg] Rikki Rodrigues DMD, MD [facility] Phone: [facility] 06-18-2022 15:07-0400 Body height 157.5 cm Rikki Rodrigues DMD, MD Work Phone: [facility] 06-18-2022 15:07-0400 Body mass index (BMI) [Ratio] 34.75 kg/m2 Rikki Rodrigues DMD, MD Work Phone: [facility] 06-18-2022 15:07-0400 Body weight 86.18 kg Rikki Rodrigues DMD, MD Work [facility]: [facility] 05-28-2022 09:00-0400 Body height 157.5 cm Pse Rn [facility] 05-28-2022 09:00-0400 Body mass index (BMI) [Ratio] 34.75 kg/m2 Pse Rn [facility] 05-28-2022 09:00-0400 Body weight 86.18 kg Pse Rn [facility] 02-26-2022 12:49-0400 Body temperature 97.81 [degF] Yi Moreno MD [facility]: [facility] 02-26-2022 12:49-0400 Diastolic blood pressure 57 mm[Hg] Yi Moreno MD [facility] 02-26-2022 12:49-0400 Heart rate 78 /min Yi Moreno MD [facility] 02-26-2022 12:49-0400 Respiratory rate 18 /min Yi Moreno MD [facility] 02-26-2022 12:49-0400 SaO2% (BldA) [Mass fraction] 92 % Yi Moreno MD [facility] 02-26-2022 12:49-0400 Systolic blood pressure 101 mm[Hg] Yi Moreno MD [facility] 02-25-2022 18:16-0400 Body mass index (BMI) [Ratio] 32.92 kg/m2 Yi Moreno MD [facility] 02-25-2022 18:16-0400 Body weight 81.65 kg Yi Moreno MD [facility] 02-25-2022 08:08-0400 Body height 157.5 cm Yi Moreno MD [facility] 02-17-2022 22:11-0400 Heart rate 72 /min Pierce Ramos RESEARCH LEADER-TRACK REPAIRER Work Phone: [facility] 02-16-2022 14:19-0400 Body height 157.5 cm Pierce Ramos RESEARCH LEADER-TRACK REPAIRER [facility]: [facility] 02-16-2022 14:19-0400 Body mass index (BMI) [Ratio] 32.92 kg/m2 Pierce Ramos RESEARCH LEADER-TRACK REPAIRER Work Phone: [employer] 02-16-2022 14:19-0400 Body temperature 97.3 [degF] Pierce Ramos APRN-TRACK REPAIRER Work Phone: [employer] 02-16-2022 14:19-0400 Body weight 81.65 kg Pierce Ramos RESEARCH LEADER-TRACK REPAIRER Work Phone: [employer] 02-16-2022 14:19-0400 Diastolic blood pressure 81 mm[Hg] Pierce Ramos RESEARCH LEADER-TRACK REPAIRER Work Phone: [employer] 02-16-2022 14:19-0400 Heart rate 74 /min Pierce Ramos RESEARCH LEADER-TRACK REPAIRER Work Phone: [employer] 02-16-2022 14:19-0400 Respiratory rate 16 /min Pierce Ramos RESEARCH LEADER-TRACK REPAIRER Work [facility]: [facility] 02-16-2022 14:19-0400 SaO2% (BldA) [Mass fraction] 96 % Pierce Ramos RESEARCH LEADER-TRACK REPAIRER Work Phone: [employer] 02-16-2022 14:19-0400 Systolic blood pressure 125 mm[Hg] Pierce Ramos APRN-TRACK REPAIRER Work Phone: [employer] 01-11-2022 14:20-0400 Diastolic blood pressure 87 mm[Hg] Yi Moreno MD Work Phone: [employer] 01-11-2022 14:20-0400 Heart rate 86 /min Yi Moreno MD Work Phone: [employer] 01-11-2022 14:20-0400 Systolic blood pressure 116 mm[Hg] Yi Moreno MD Work Phone: [employer] 01-11-2022 14:12-0400 Body height 157.5 cm Yi Moreno MD Work Phone: [employer] 01-11-2022 14:12-0400 Body mass index (BMI) [Ratio] 34.39 kg/m2 Yi Moreno MD [facility] 01-11-2022 14:12-0400 Body temperature 98.8 [degF] Yi Moreno MD [facility]: [facility] 01-11-2022 14:12-0400 Body weight 85.28 kg Yi Moreno MD [facility]: [facility] 01-11-2022 14:12-0400 Respiratory rate 18 /min Yi Moreno MD [facility]: [facility] 01-11-2022 14:12-0400 SaO2% (BldA) [Mass fraction] 100 % Yi Moreno MD Work [facility]: [facility] 01-05-2022 16:25-0400 Diastolic blood pressure 82 mm[Hg] Bertha Hirsch MD [facility] Phone[facility] 01-05-2022 16:25-0400 Heart rate 87 /min Bertha Hirsch MD Work Phone[facility] 01-05-2022 16:25-0400 Respiratory rate 16 /min Bertha Hirsch MD Work Phone: [facility] 01-05-2022 16:25-0400 SaO2% (BldA) [Mass fraction] 94 % Bertha Hirsch MD Work Phone: [facility] 01-05-2022 16:25-0400 Systolic blood pressure 122 mm[Hg] Bertha Hirsch MD Work Phone: [facility] 01-05-2022 16:00-0400 Body temperature 96.91 [degF] Bertha Hirsch MD Work Phone: [facility] 01-05-2022 13:35-0400 Body height 157.5 cm Bertha Hirsch MD Work Phone: [facility] 01-05-2022 13:21-0400 Body mass index (BMI) [Ratio] 34.06 kg/m2 Bertha Hirsch MD Work Phone: [facility] [employer] 01-05-2022 13:21-0400 Body weight 84.46 kg Bertha Hirsch MD Work Phone: [facility] 12-02-2021 15:38-0400 Body height 157.48 cm Gena Jang Joelnicanorholarmando Work Phone: [facility] 250 DO Work Phone: 12-02-2021 15:38-0400 Body mass index (BMI) [Ratio] 33.47 kg/m2 Gena Jang Joelnicanorholz Work Phone: [facility] 250 DO Work Phone: 12-02-2021 15:38-0400 Body surface area Derived from formula 1.84 m2 Gena Jang Joelnicanorholz Work Phone: [facility] 250 DO Work Phone: 12-02-2021 15:38-0400 Body weight 83.01 kg Gena Jang Joelnicanorholz Work Phone: [facility] 250 DO Work Phone: 12-02-2021 15:38-0400 Diastolic blood pressure 70 mm[Hg] Gena Jang Joelnicanorholz Work Phone: [facility] 250 DO Work Phone: 12-02-2021 15:38-0400 Heart rate 72 /min Gena Jang Joelhholz Work Phone: [facility] 250 DO Work Phone: 12-02-2021 15:38-0400 Systolic blood pressure 92 mm[Hg] Gena Laine Maldonadohholz Work Phone: [facility] 250 DO Work Phone: 11-09-2021 15:15-0400 Body height 157.48 cm Wiley Yonathan Other [employer] Other 11-09-2021 15:15-0400 Body mass index (BMI) [Ratio] 32.55 kg/m2 Wiley Yonathan Other [employer] Other 11-09-2021 15:15-0400 Body temperature 98.5 [degF] Wiley Yonathan Other [employer] Other 11-09-2021 15:15-0400 Body weight 80.74 kg Wiley Yonathan Other [employer] Other 11-09-2021 15:15-0400 Diastolic blood pressure 81 mm[Hg] Wiley Yonathan Other [employer] Other 11-09-2021 15:15-0400 SaO2% (BldA) [Mass fraction] 94 % Wiley Yonathan Other [employer] Other 11-09-2021 15:15-0400 Systolic blood pressure 122 mm[Hg] Wiley Yonathan Other [employer] Other 10-14-2021 15:34-0500 Diastolic blood pressure 98 mm[Hg] Gena Mcdonnellz Work Phone: [facility] [employer] 250 DO Work Phone: 10-14-2021 15:34-0500 Systolic blood pressure 152 mm[Hg] Gena Camachoholarmando Work Phone: [facility] 250 DO Work Phone: 10-14-2021 15:23-0500 Body height 157.48 cm eGna Maldonadohholz Work Phone: [facility] 250 DO Work Phone: 10-14-2021 15:23-0500 Body mass index (BMI) [Ratio] 33.47 kg/m2 Genasue Maldonadonicanorholarmando Work Phone: [facility] 250 DO Work Phone: 10-14-2021 15:23-0500 Body surface area Derived from formula 1.84 m2 Genasue Maldonadonicanorholarmando Work Phone: [facility] 250 DO Work Phone: 10-14-2021 15:23-0500 Body weight 83.01 kg Gena Maldonadonicanordia Work Phone: [facility] 250 DO Work Phone: 10-14-2021 15:23-0500 Diastolic blood pressure 98 mm[Hg] Gena Maldonadonicanorholz Work Phone: [facility] 250 DO Work Phone: 10-14-2021 15:23-0500 Heart rate 78 /min Gena Maldonadonicanordia Work Phone: [facility] 250 DO Work Phone: 10-14-2021 15:23-0500 Systolic blood pressure 160 mm[Hg] Gena Kirby Work Phone: [facility] 250 DO Work Phone: 10-14-2021 15:23-0500 16 3 Gena Maldonadonicanorholarmando Work Phone: [facility] 250 DO Work Phone: Comment on above: PHQ-9 TS Encounters Encounter Date Encounter Type Care Provider Facility Start: 10-14-2023 End: 10-14-2023 ambulatory Gena Kirby Work Phone: [facility] Work Phone: Start: 10-14-2023 End: 10-14-2023 Patient encounter procedure Gena Aicnicanorholz Work Phone: [facility] Work Phone: Start: 10-11-2023 End: 10-11-2023 ambulatory MAJO Andino ALAYNA [facility] Start: 09-29-2023 End: 10-02-2023 ambulatory ELIN Ramesh [facility]LL [facility] Start: 09-20-2023 End: 09-20-2023 ambulatory Wiley Mcmanus Facility:[facility] Start: 09-20-2023 End: 09-20-2023 Patient encounter procedure Gena Janicefreddyz Work Phone: [facility] Work Phone: Start: 09-20-2023 End: 09-20-2023 ambulatory Gena Andino Joelnicanorholz Work Phone: [facility] Work Phone: Start: 09-20-2023 Office outpatient vi sit 25 minutes Wiley Mcmanus [facility] Start: 09-20-2023 End: 09-20-2023 Patient encounter procedure Gena Janiceholz Work Phone: [facility]- Start: 09-15-2023 End: 09-16-2023 ambulatory ELINJe BALLARD [facility] Start: 08-26-2023 End: 08-26-2023 ambulatory MAJO Andino [facility] Start: 08-24-2023 End: 08-24-2023 ambulatory GENA AICHHOLZ Not Available Start: 08-12-2023 End: 08-12-2023 ambulatory Imad Asaad Other [employer] Other Start: 08-12-2023 Telephone encounter Imad Asaad [facility] Start: 08-10-2023 End: 08-10-2023 ambulatory Imad Asaad Other [employer] Other Start: 08-10-2023 Telephone encounter Imad Asaad [facility] Start: 08-08-2023 End: 08-08-2023 ambulatory Gena Sina Camachoholz Facility:[facility] Start: 08-08-2023 End: 08-08-2023 Admission to same day surgery center Gena Camachoholz Work Phone: [facility] Work Phone: Start: 08-08-2023 End: 08-08-2023 ambulatory Gena Camachoholz Work Phone: [facility] Work Phone: Start: 06-30-2023 End: 06-30-2023 Patient encounter procedure Gena Mcdonnellz Work Phone: [facility] [place] Work Phone: Start: 06-30-2023 End: 06-30-2023 ambulatory Gena Camachoholz Work Phone: [employer] Other Start: 06-30-2023 Office outpatient ne w 30 minutes Majo Lyman [facility] Start: 06-30-2023 End: 06-30-2023 Patient encounter procedure Gena Camachoholz Work Phone: [facility] Work Phone: Start: 06-07-2023 End: 06-07-2023 ambulatory Louise Johnson Other [employer] Other Start: 06-07-2023 Encounter [address] Johnson [facility] [place] Start: 06-07-2023 Office outpatient vi sit [address] [facility] [place] Start: 03-16-2023 End: 03-16-2023 ambulatory Gena J Aichholz Facility:[facility] Start: 03-16-2023 End: 03-16-2023 ambulatory Gena Sina Kirby Work Phone: [facility] Work Phone: Start: 03-16-2023 End: 03-16-2023 Patient encounter procedure Gena Kofi Work Phone: [facility] Work Phone: Start: 03-08-2023 End: 03-11-2023 ambulatory ELIN [facility]ALLARD [facility] Start: 02-21-2023 End: 02-21-2023 ambulatory HERMES MORENO MD~[id number] [facility] Start: 01-26-2023 Telephone encounter Rikki norris DMD, MD Work Phone: [facility] Oral Surgery Start: 01-18-2023 ambulatory BRIAN MERCADOA KOFI Facil ity:[facility]1 Start: 12-13-2022 End: 12-14-2022 ambulatory ELIN [facility] Start: 12-13-2022 End: 12-13-2022 Subsequent hospital visit by physician Gena Kirby Work Phone: [facility] Laboratory Comment on above: OAB (overactive blad darinel); Urge incontinence; Frequency of urination Start: 11-26-2022 End: 11-26-2022 ambulatory BRIAN KIRBY Facility: Start: 11-16-2022 End: 11-16-2022 ambulatory Wiley Mcmanus Facility:[facility] Start: 11-16-2022 End: 11-16-2022 ambulatory Gena Kirby Work Phone: [facility] Work Phone: Start: 11-16-2022 End: 11-16-2022 Patient encounter procedure Gena Kirby Work Phone: [facility] Work Phone: Start: 11-12-2022 End: 11-12-[address] OSWALD HARRINGTON . Facility: Start: 11-04-2022 Telephone encounter Yi wylie MD Work Phone: [facility] Otolaryngology (ENT) Start: 11-01-2022 Encounter for preprocedural cardiovascular examination DR OSWALD HARRINGTON . [facility] Start: 11-01-2022 Telephone encounter Rikki norris DMD, MD Work Phone: [facility] Oral Surgery Start: 10-28-2022 End: 10-29-[address] OSWALD HARRINGTON . Facility: Start: 10-28-2022 End: 10-29-2022 Encounter for preprocedural cardiovascular examination DR OSWALD HARRINGTON . Facility: Start: 10-19-2022 End: 10-19-2022 ambulatory UNKNOWN PROVIDER Facility:[facility] Start: 09-24-[address] OSWALD HARRINGTON . Facili ty: Start: 09-21-[address] OSWALD HARRINGTON . Facili ty:[facility] Start: 09-02-2022 End: 09-03-2022 ambulatory BRIAN KIRBY Facility: Start: 08-30-2022 ambulatory [facility] Start: 08-30-2022 End: 08-30-2022 Follow-up encounter Rikki Rodrigues DMD, MD Work Phone: [facility] Oral Surgery Start: 08-30-2022 End: 08-30-2022 Patient encounter procedure Rikki Rodrigues DMD, MD Work Phone: [facility] Oral Surgery Comment on above: Post-operative state (Primary Dx) Start: 08-12-2022 End: 08-12-2022 Subsequent hospital visit by physician Gena Kirby Work Phone: [email or web address] Comment on above: Dysuria Start: 08-11-2022 Telephone encounter Jerel Villegas DDS Work Phone: [facility] Oral Surgery Start: 08-02-2022 Telephone encounter Rikki norris DMD, MD Work Phone: [facility] Oral Surgery Start: 07-28-2022 Telephone encounter Mikal Borden myronporfirio CHAU Work Phone: [facility] Oral Surgery Start: 07-23-2022 End: 07-23-2022 Follow-up encounter Rikki Rodrigues DMD, MD Work Phone: [facility] Oral Surgery Start: 07-23-2022 End: 07-23-2022 Telemedicine consultation with patient Rikki Rodrigues DMD, MD Work Phone: [facility] Oral Surgery Comment on above: DIONNE (obstructive sle ep apnea) (Primary Dx) Start: 07-23-2022 End: 07-23-2022 ambulatory UNKNOWN PROVIDER Facility:[facility] Start: 07-14-2022 End: 07-17-2022 Evaluation and management of inpatient RIKKI LAWRENCEHIRamesh Facility:[facility] Start: 07-14-2022 End: 07-15-2022 ambulatory [facility] Facility:[facility] Start: 07-14-2022 End: 07-14-2022 Subsequent hospital visit by physician Rikki Rodrigues DMD, MD Work Phone: [facility] Radiology Comment on above: Arrived Start: 07-14-2022 End: 07-17-2022 Evaluation and management of inpatient Rikki Rodrigues DMD, MD Work Phone: [facility] [address] Comment on above: DIONNE (obstructive sle ep apnea) (Primary Dx); Pain Start: 07-09-2022 Telephone encounter Yi wylie MD Work Phone: [facility] Otolaryngology (ENT) Comment on above: Patient questions/co ncerns (Patient asking what next step is after jaw surgery) Start: 07-08-2022 End: 07-09-2022 ambulatory UNKNOWN PROVIDER Facility:[facility] Start: 07-08-2022 End: 07-09-2022 Office outpatient new 45 minutes Gena MORRIS Work Phone: [facility] Pre Surgical Evaluation Comment on above: Pre-op testing (Prim amy Dx); Body mass index (BMI) 35.0-35.9, adult Start: 07-08-2022 End: 07-09-2022 Patient encounter status Gena Holbrook RESEARCH LEADER-[facility] Work Phone: [facility] Pre Surgical Evaluation Start: 07-07-2022 End: 07-08-2022 ambulatory TRACK REPAIRER GENA MALDONADODIA Facility: Start: 07-06-2022 End: 07-06-2022 Patient encounter procedure Pierec Ramos RESEARCH LEADER-[facility] Work Phone: [facility] Pre-Surgical Evaluation Comment on above: ENCOUNTER OPENED IN ERROR (Primary Dx) Start: 07-05-2022 Telephone encounter Mary guy RN [facility] Pre Surgical Evaluation Comment on above: Pre-surgical Evaluat ion (Pre-op COVID testing not needed ) Start: 07-02-2022 End: 07-06-2022 ambulatory UNKNOWN PROVIDER Facility:[facility] Start: 07-02-2022 End: 07-02-2022 Follow-up encounter Rikki Rodrigues DMD, MD Work Phone: [facility] Oral Surgery Start: 07-02-2022 End: 07-02-2022 Patient encounter procedure Rikki Rodrigues DMD, MD Work Phone: [facility] Oral Surgery Comment on above: DIONNE (obstructive sle ep apnea) (Primary Dx) Start: 06-18-2022 End: 06-20-2022 Office outpatient new 30 minutes Rikki Rodrigues DMD, MD Work Phone: [facility] Oral Surgery Comment on above: Obstructive sleep ap shaun (Primary Dx); DIONNE (obstructive sleep apnea); Body mass index (BMI) 34.0-34.9, adult Start: 06-18-2022 End: 06-20-2022 Orders Only Saleem Mi DMD Work Phone: [facility] Oral Surgery Start: 06-15-2022 End: 06-15-2022 ambulatory UNKNOWN PROVIDER Facility:[facility] Start: 06-03-2022 End: 06-03-2022 ambulatory YI MORENO Facility:[facility] Start: 05-31-2022 End: 05-31-2022 ambulatory Isabel Sin Other [facility] Other Start: 05-31-2022 Office outpatient vi sit [address] [facility] Start: 05-28-2022 Telephone encounter Mary guy RN [facility] Pre Surgical Evaluation Comment on above: Pre-surgical Evaluat ion (Pre-op COVID testing) Start: 05-28-2022 ambulatory UNKNOWN PROVIDER [facility] Start: 05-28-2022 End: 05-28-2022 Nursing evaluation of patient and report Pse Rn [facility] Pre Surgical Evaluation Comment on above: Preop examination (P rimary Dx) Start: 05-28-2022 End: 05-28-2022 Preprocedural examination done Pse Rn [facility] Pre Surgical Evaluation Start: 05-26-2022 Telephone encounter Mary guy RN [facility] Pre Surgical Evaluation Comment on above: Pre-surgical Evaluat ion (Pre-op COVID testing) Start: 05-19-2022 End: 05-19-2022 ambulatory Gena Kirby Work Phone: [facility] Work Phone: Start: 05-19-2022 End: 05-19-2022 Patient encounter procedure Gena Kofi Work Phone: [facility]-Sleep Lab Start: 05-18-2022 Letter encounter Yi saunders MD Work Phone: [facility] Otolaryngology (ENT) Start: 05-17-2022 End: 05-18-[address] WILEY POE Facility:[facility] Start: 05-11-2022 End: 05-12-[address] OSWALD HARRINGTON . Facility:[facility] Start: 05-07-2022 End: 05-08-[address] OSWALD HARRINGTON . Facility:[facility] Start: 03-29-2022 End: 03-30-2022 Phys/qhp telephone evaluation 11-20 min Yi Moreno MD Work Phone: [facility] Otolaryngology (ENT) Comment on above: DIONNE (obstructive sle ep apnea) (Primary Dx) Start: 03-29-2022 End: 03-30-2022 ambulatory UNKNOWN PROVIDER Facility:[facility] Start: 03-09-2022 End: 03-10-2022 ambulatory TRACK REPAIRER GENA KIRBY Facility:[facility] Start: 03-09-2022 Telephone encounter Yi wylie MD Work Phone: [facility] Otolaryngology (ENT) Start: 02-25-2022 End: 02-26-2022 Evaluation and management of inpatient YI MORENO Facility:[facility] Start: 02-25-2022 End: 02-26-2022 Subsequent hospital visit by physician Yi Moreno MD Work Phone: Inpatient 8B Comment on above: Encounter for carmela woodward testing for severe acute respiratory syndrome coronavirus 2 (SARS-CoV-2) (Primary Dx); DIONNE (obstructive sleep apnea); Postoperative pain Start: 02-24-2022 Telephone encounter Mary guy RN [facility] Pre Surgical Evaluation Comment on above: Pre-surgical Evaluat ion (Pre-op COVID testing - results) Start: 02-23-2022 End: 02-24-[address] DOCTOR ABDULLAHI Facility:[facility] Start: 02-19-2022 End: 02-21-2022 Subsequent hospital visit by physician Yaneth Sharp [facility] 2 [facility] Radiology Comment on above: Ureteral stone Start: 02-17-2022 Telephone encounter Mary guy RN [facility] Pre Surgical Evaluation Comment on above: Pre-surgical Evaluat ion (Pre-op COVID testing) Start: 02-16-2022 End: 02-18-2022 ambulatory UNKNOWN PROVIDER Facility:[facility] Start: 02-16-2022 Encounter for other preprocedural examination UNKNOWN PROVIDER [facility] Start: 02-16-2022 End: 02-17-2022 Office outpatient new 45 minutes Pierce Ramos APRN-TRACK REPAIRER Work Phone: [facility] Pre-Surgical Evaluation Comment on above: Preop testing (Prima ry Dx); Abnormal electrocardiogram (ECG) (EKG); Body mass index (BMI) 32.0-32.9, adult Start: 02-16-2022 End: 02-17-2022 Patient encounter status Pierce Ramos RESEARCH LEADER-TRACK REPAIRER Work Phone: [facility] Pre-Surgical Evaluation Start: 02-16-2022 Telephone encounter Yi wylie MD Work Phone: [facility] Otolaryngology (ENT) Start: 02-11-2022 Telephone encounter Mary guy RN [facility] Pre Surgical Evaluation Comment on above: Pre-surgical Evaluat ion (Pre-op COVID testing) Start: 02-04-2022 Letter encounter Yi saunders MD Work Phone: [facility] Otolaryngology (ENT) Start: 01-12-2022 End: 01-12-2022 ambulatory Wiley Mcmanus Other [employer] Other Start: 01-12-2022 Telephone encounter Wiley Mcmanus [facility] Sleep Lab Start: 01-11-2022 End: 01-11-2022 Office consultation new/estab patient 60 min Yi Moreno MD Work Phone: [facility] Otolaryngology (ENT) Comment on above: DIONNE (obstructive sle ep apnea) (Primary Dx); Body mass index (BMI) 34.0-34.9, adult Start: 01-05-2022 End: 01-05-2022 Subsequent hospital visit by physician Bertha Hirsch MD Work Phone: [facility] Start: 12-30-2021 End: 12-30-2021 Patient encounter status Gena Kirby Work Phone: [facility] Start: 12-30-2021 End: 12-30-2021 Subsequent hospital visit by physician Gena Kirby Work Phone: [facility] Comment on above: Pre-op testing Start: 12-22-2021 End: 12-24-2021 Subsequent hospital visit by physician [facility] Radiology Comment on above: Kidney stones Start: 12-02-2021 Office outpatient vi sit 10 minutes Gena Kirby Work Phone: [facility] 250 DO Work Phone: Start: 11-09-2021 End: 11-09-2021 ambulatory Wiley Mcmanus Other [facility] Other Start: 11-09-2021 Office outpatient vi sit 40 minutes Wiley Mcmanus [facility] Start: 10-14-2021 Office outpatient vi sit 25 minutes Gena Kirby Work Phone: [facility] 250 DO Work Phone: Procedures Date Procedure Procedure Detail Performing Clinician Start: 08-08-2023 Colonoscopy Gena Kirby Work Phone: Start: 12-13-2022 Urnls dip stick/tablet reagent auto microscopy Elin Ballard RESEARCH LEADER - TRACK REPAIRER Work Phone: Start: 08-12-2022 Urnls dip stick/tablet reagent auto microscopy Jerel Weaver PA-C Work Phone: Start: 07-17-2022 Glucose [...] Phone: Start: 07-15-2022 Blood count complete automated Oliverhomer mora DMD Work Phone: Start: 07-14-2022 Glucose [...] Start: 07-14-2022 Urine test visual color cmprsn migel Mi DMD Work Phone: Start: 07-14-2022 Glucose blood reagent strip Rikki frey DMD, MD Work Phone: Start: 07-08-2022 Blood typing serologic abo Gena DEL CASTILLO RN-TRACK REPAIRER Work Phone: Start: 07-08-2022 Blood count complete automated Gena vasquez APRN-TRACK REPAIRER Work Phone: Start: 07-08-2022 Blood typing, ABO, Rho(D) and RBC antibody screening Gena Holbrook APRN-TRACK REPAIRER Work Phone: Start: 06-18-2022 panoramic radiographic image Rikki love DMD, MD Work Phone: Start: 02-25-2022 End: 02-25-2022 UVULOPALATOPHARYNGOPLASTY Yi dutta MD Work Phone: Start: 02-25-2022 Urine test visual color cmprsn meths Yi Moreno MD Work Phone: Start: 02-19-2022 Radiologic exam abdomen 1 view Jerel D Do rkoskie PA-C Work Phone: Start: 02-16-2022 Ecg routine ecg w/least 12 lds trcg only w/o i&r Pierce Ramos RESEARCH LEADER-TRACK REPAIRER Work Phone: Start: 01-11-2022 Laryngoscopy flexible diagnostic Yi Moreno MD Work Phone: Start: 01-05-2022 Fluoroscopy during operation Bertha john MD Work Phone: Start: 01-05-2022 Urine test visual color cmprsn meths Majo Rodrigues RESEARCH LEADER - APPLE PICKER Start: 12-30-2021 Basic metabolic panel calcium total Jerel D Dorkoskie PA-C Work Phone: Start: 12-22-2021 Radiologic exam abdomen 1 view Jerel D Do rkoskie PA-C Work Phone: section Gena Jang Aic hholz Work Phone: Cholecystectomy Gena Jang Aich dia Work Phone: Dental surgical procedure Cassandra Jang Aichholz Work Phone: Lithotripsy Gena Jang Aichhol z Work Phone: Plan of Treatment Date Care Activity Detail Author Start: 2025 Shingles (RZV) Vaccine (1 of 2) Shingles (RZV) Vaccine (1 of 2) [facility] Start: 08-08-2023 [facility] Start: 03-22-2023 Influenza vaccination Flu vaccine (Season Ended) [facility] Start: 02-21-2023 End: 02-21-2023 Patient encounter procedure 02/21/2023 Office Visit Urology [facility] Start: 12-21-2022 Cholesterol [Mass/volume] in Serum or Plasma Cholesterol [facility] Start: 10-19-2022 End: 10-19-2022 Patient encounter procedure 10/19/2022 Office Visit Ent-Otolaryngology Yi Moreno MD [address] [place] [id number] [facility] [place] Otolaryngology (ENT) Start: 08-13-2022 End: 08-13-2022 Patient encounter procedure 08/13/2022 Office Visit Or al Surgery Rikki Rodrigues DMD, MD [address] [place] [address] [facility] Oral Surgery Start: 07-30-2022 End: 07-30-2022 Patient encounter procedure 07/30/2022 Office Visit Or al Surgery Rikki Rodrigues DMD, MD [address] [place] [address] [facility] Oral Surgery Start: 07-23-2022 End: 07-23-2022 Telemedicine consultation with patient 07/23/2022 Telemedicine Oral Surgery Rikki Rodrigues DMD, MD [address] [place] [address] [facility] Oral Surgery Start: 07-14-2022 End: 07-14-2022 Admission to same day surgery center 07/14/2022 Surgery General Surgery Rikki Rodrigues DMD, MD [address] [place] [address]14 LEFORTE I OSTEOTOMY [facility] Main OR Comment on above: LEFORTE [...] Encounter General Surgery Rikki Rodrigues DMD, MD [address] [place] [address] [facility] Main OR Start: 07-14-2022 End: 07-14-2022 Admission to same day surgery center 07/14/2022 Surgery General Surgery Rikki Rodrigues DMD, MD [address] [place] [address] LEFORTE I OSTEOTOMY [facility] Main OR Comment on above: LEFORTE I OSTEOTOMY Start: 07-14-2022 End: 07-14-2022 Anesthesia consultation 07/14/2022 Anesthesia Event General Surgery Ki Atwood MD [address] [place] [phone] [facility] Main OR Start: 07-14-2022 End: 07-14-2022 [...] Encounter General Surgery Rikki Rodrigues DMD, MD [address] [place] [address] [facility] Main OR Start: 07-08-2022 End: 07-08-2022 Patient encounter procedure 07/08/2022 Office Visit Presurgical Evaluation Gena Holbrook APRN-TRACK REPAIRER [address] [place] [address] [facility] Pre Surgical Evaluation Start: 07-06-2022 End: 07-06-2022 Patient encounter procedure 07/06/2022 Office Visit Presurgical Evaluation Pierce Ramos, RESEARCH LEADER-TRACK REPAIRER [address] [place] [address] Preop testing (Primary Dx) [facility] Pre-Surgical Evaluation Comment on above: Preop testing (Primary Dx) Start: 06-15-2022 End: 06-15-2022 Patient encounter procedure 06/15/2022 Office Visit Ent-Otolaryngology Yi Moreno MD [address] [place] [address] [facility] Otolaryngology (ENT) Start: 06-03-2022 End: 06-03-2022 Admission to same day surgery center 06/03/2022 Surgery Ambulatory Surgery Yi Moreno MD [address] [place] [phone] BRONCHOSCOPY, FLEXIBLE, DRUG INDUCED SLEEP ENDOSCOPY (DISE) [facility] Main OR PACU Comment on above: BRONCHOSCOPY, FLEXIBLE, DRUG INDUCED SLE EP ENDOSCOPY (DISE) Start: 06-03-2022 End: 06-03-2022 BRONCHOSCOPY, FLEXIBLE, DRUG INDUCED SLEEP ENDOSCOPY (DISE) BRONCHOSCOPY, FLEXIBLE, DRUG INDUCED SLEEP ENDOSCOPY (DISE) Routine scheduled DIONNE (obstructive sleep apnea) 06/03/2022 8:39 AM EDT PACU Procedure Rooms Start: 06-03-2022 Subsequent hospital visit by physician [facility] Main OR PACU Comment on above: Encounter for laboratory testing for sev ere acute respiratory syndrome coronavirus 2 (SARS-CoV-2) (Primary Dx) Start: 05-28-2022 End: 05-28-2022 Nursing evaluation of patient and report 05/28/2022 Nurse Visit Presurgical Evaluation [facility] Pre Surgical Evaluation Start: 05-22-2022 Influenza vaccination Influenza Vaccine (#1) [facility] Start: 04-22-2022 Influenza vaccination [facility] Start: 03-29-2022 End: 03-29-2022 Telemedicine consultation with patient 03/29/2022 Telemedicine Ent-Otolaryngology Yi Moreno MD [address] [place] [address] [facility] [place] Otolaryngology (ENT) Start: 03-24-2022 FUV, Provider: Eileen Nichols, Status: Pen, Time: 3:50 PM FUV, Provider: Eileen Nichols, Status: Pen, Time: 3:50 PM [facility] 250 DO Work Phone: Start: 03-22-2022 Influenza vaccination [facility] Start: 02-25-2022 End: 02-25-2022 Admission to same day surgery center 02/25/2022 Surgery General Surgery Yi Moreno MD [address] [place] [address] UVULOPALATOPHARYNGOPLASTY [facility] Main OR Comment on above: UVULOPALATOPHARYNGOPLASTY Start: 02-25-2022 Subsequent hospital visit by physician [facility] Main OR Comment on above: Encounter for laboratory testing for sev ere acute respiratory syndrome coronavirus 2 (SARS-CoV-2) (Primary Dx) Start: 02-25-2022 End: 02-25-2022 UVULOPALATOPHARYNGOPLASTY [facility] Start: 02-25-2022 End: 02-25-2022 Admission to same day surgery center 02/25/2022 Surgery General Surgery Yi Moreno MD [address] [place] [address] UVULOPALATOPHARYNGOPLASTY [facility] Main OR Comment on above: UVULOPALATOPHARYNGOPLASTY Start: 02-25-2022 Subsequent hospital visit by physician 02/25/2022 Hospital Encounter General Surgery Yi Moreno MD [address] [place] [address] Encounter for laboratory testing for severe acute respiratory syndrome coronavirus 2 (SARS-CoV-2) (Primary Dx) [facility] Main OR Comment on above: Encounter for laboratory testing for sev ere acute respiratory syndrome coronavirus 2 (SARS-CoV-2) (Primary Dx) Start: 02-25-2022 End: 02-25-2022 UVULOPALATOPHARYNGOPLASTY UVULOPALATOPHARYNGOPLASTY Routine scheduled DIONNE (obstructive sleep apnea) 02/25/2022 9:20 AM EDT [facility] Start: 02-23-2022 End: 02-23-2022 Patient encounter procedure 02/23/2022 Office Visit Urology Elin Ballard, RESEARCH LEADER - TRACK REPAIRER [address] [place] [phone] [facility] Start: 02-16-2022 End: 02-16-2022 Patient encounter procedure 02/16/2022 Office Visit Presurgical Evaluation Pierce Ramos APRN-CNP [address] [facility] [place] [address] [facility] [place] Pre-Surgical Evaluation Start: 01-08-2022 End: 01-08-2022 Patient encounter procedure 01/08/2022 Office Visit Urology Elin Ballard RESEARCH LEADER - TRACK REPAIRER [address] [place] [address] [facility] Start: 01-05-2022 End: 01-05-2022 Cysto/uretero w/lithotripsy &indwell stent insrt CYSTOSCOPY URETEROSCOPY [facility]ES 01/05/2022 2:57 PM EDT [facility] Start: 12-06-2021 COVID-19 Vaccine (3 - Booster for Pfizer series) COVID-19 Vaccine (3 - Booster for Pfizer series) [facility] Start: 12-01-2021 NURSEVST, Provider: [employer]IN WALL MANAGER INPATIENT 1,[id number], Status: Pen, Time: 3:15 PM NURSEVST, Provider: AUSTIN WALL MANAGER INPATIENT 1,[id number], Status: Pen, Time: 3:15 PM [facility] 250 DO Work Phone: Start: 09-02-2021 COVID-19 Vaccine (3 - Booster for Pfizer series) COVID-19 Vaccine (3 - Booster for Pfizer series) [facility] Start: 2020 Cholesterol [Mass/volume] in Serum or Plasma Cholesterol [facility] Start: 2020 Screening for malignant neoplasm of colon [facility] Start: 2015 Lipid panel Lipids [facility] Start: 2015 Screening for malignant neoplasm of breast Mammography [facility] Start: 2010 Diabetes screen Diabetes screen [facility] Start: 2005 Screening for malignant neoplasm of cervix [facility] Start: 1996 Screening for malignant neoplasm of cervix Pap smear [facility] Start: 1994 DTaP/Tdap/Td vaccine (1 - Tdap) DTaP/Tdap/Td vaccine (1 - Tdap) [facility] Start: 1993 Creatinine measurement Creatinine [facility] Start: 1993 Hepatitis C screening [facility] Start: 1993 Potassium [Moles/volume] in Serum or Plasma Potassium [facility] Start: 1993 Tetanus + diphtheria + acellular pertussis vaccine (product) Tdap Booster [facility] Start: 1990 HIV screening [facility] Start: 1987 Depression Monitoring Depression Monitoring [facility] Start: 1975 Screening for malignant neoplasm of colon [facility] Assay of [facility] MAGNESIUM Lab STAT Daily until discontinued starting 07/16/2022, 2 completed [facility] Comment on above: Daily until discontinued starting 2021, 2 completed Assay of phosphorus inorganic PH OSPHORUS Lab STAT Daily until discontinued starting 07/16/2022, 2 completed [facility] Comment on above: Daily until discontinued starting 2021, 2 completed Basic metabolic 2000 panel - Serum or Plasma BASIC METABOLIC PANEL Lab STAT Daily until discontinued starting 07/16/2022, 2 completed [employer] Comment on above: Daily until discontinued starting 2021, 2 completed BRONCHOSCOPY, FLEXIB LE, DRUG INDUCED SLEEP ENDOSCOPY (DISE) BRONCHOSCOPY, FLEXIBLE, DRUG INDUCED SLEEP ENDOSCOPY (DISE) Routine scheduled DIONNE (obstructive sleep apnea) [facility] Calprotectin [Mass/m ass] in Stool [facility] CBC panel - Blood by Automated count COMPLETE BLOOD COUNT Lab STAT Daily until discontinued starting 07/16/2022, 2 completed [employer] Work Phone: Comment on above: Daily until discontinued starting 2021, 2 completed End: 08-12-2022 Culture, Urine [employer] Work Phone: Comment on above: 1 Occurrences starting 08/12/2022 until 08/12/2022 End: 12-13-2022 Culture, Urine [employer] Work Phone: Comment on above: 1 Occurrences starting 12/13/2022 until 12/13/2022 End: 07-14-2022 Ecg routine ecg w/least 12 lds trcg only w/o i&r EKG 12 LEAD - PERFORM MUSE Routine Once for 1 Occurrences starting 07/14/2022 until 07/14/2022 THE [employer] Work Phone: Comment on above: Once for 1 Occurrences starting 07/14/20 until 07/14/2022 Elastase.pancreatic [Mass/mass] in Stool [facility] Endomysial antibody IgA level [facility] Gliadin peptide IgA Ab [Units/volume] in Serum [facility] Gliadin peptide IgG Ab [Units/volume] in Serum [facility] HIV 1+2 Ab+HIV1 p24 Ag [Presence] in Serum or Plasma by Immunoassay [facility] IgA [Mass/volume] in Serum or Plasma [facility] End: 01-05-2022 INITIATE PACU OXYGEN THERAPY PROTOCOL Initiate PACU Oxygen Therapy Protocol Respiratory Care Routine Continuous until discontinued starting 01/05/2022 [employer] Comment on above: Continuous until discontinued starting 0 01/05/2022 Oxygen therapy [Mini mum Data Set] Initiate Oxygen Therapy Protocol Respiratory Care Routine As Needed until discontinued starting 01/05/2022 [facility] Work Phone: Comment on above: As Needed until discontinued starting End: 02-25-2022 Palatopharyngoplasty PALATOPHARYNGOPLASTY Procedures Routine One time for 1 Occurrences starting 02/25/2022 until 02/25/2022 [employer] Comment on above: One time for 1 Occurrences starting 02/2022 until 02/25/2022 Patient Education Hemorrhoids (DC) [facility] Work Phone: Rcnstj midface lefor t i 1 piece w/o bone graft RECONSTRUCTION MIDFACE, LEFORT I; 1 PIECE, W/O BONE GRAFT Procedures Routine DIONNE (obstructive sleep apnea) Ordered: 07/14/2022 [employer] Work Phone: Comment on above: Ordered: 07/14/2022 Rcnstj mndblr rami&/ bdy sgtl splt w/int rgd fi RECONSTRUCTION, MANDIBULAR RAMI &/OR BODY, SAGITTAL SPLIT; W/INT RIGID FIXATION Procedures Routine DIONNE (obstructive sleep apnea) Ordered: 07/14/2022 [employer] Comment on above: Ordered: 07/14/2022 End: 03-17-2022 SARS-CoV-2 (COVID-19) RNA [Presence] in Unspecified specimen by JOHNNIE with probe detection NOVEL CORONAVIRUS (COVID-19) Lab STAT Encounter for laboratory testing for severe acute respiratory syndrome coronavirus 2 (SARS-CoV-2) 1 Occurrences starting 02/15/2022 until 03/17/2022 [employer] Work Phone: Comment on above: 1 Occurrences starting 02/15/2022 until 03/17/2022 Surgical pathology procedure [employer] Work Phone: Comment on above: Release Upon Ordering for 1 Occurrences starting 02/25/2022, 1 completed Tissue transglutamin ase IgA Ab [Units/volume] in Serum [facility] Tissue transglutamin ase IgG Ab [Units/volume] in Serum [facility] UVULOPALATOPHARYNGOPLASTY UVULOP ALATOPHARYNGOPLASTY Routine scheduled DIONNE (obstructive sleep apnea) [facility] Immunizations Immunization Date Immunization Notes Care Provider Fa cili 07-08-2021 Pfizer-BioNTech COVID-19 Vacc 30 MCG/0.3ML Intramuscular Suspension Gena Jang [employer] Work Phone: [facility] 06-17-2021 Pfizer-BioNTech COVID-19 Vacc 30 MCG/0.3ML Intramuscular Suspension Gena Jang [place] Work Phone: [facility] 250 DO Work Phone: 06-27-2013 influenza virus vaccine, whole virus Gena Jang [employer] Work Phone: [facility] 250 DO Work Phone: Payers Date Payer Category Payer Unknown [id number] 2023 Unknown [id number] 2022 Self-pay [id number] 2021 Unknown 1975 Unknown [id number] 2.16.84 0.1.640920.3.579.2.593 1975 Unknown [id number] 2.16.84 0.1.775548.3.579.2.593 1975 Unknown [id number] 2.16.84 0.1.485360.3.579.2.593 1975 Unknown [id number] 2.16.84 0.1.451472.3.579.2.593 1975 Unknown [id number] 2.16.84 0.1.913813.3.579.2.593 1975 Unknown [id number] 2.16.84 0.1.007652.3.579.2.593 1975 Unknown [id number] 2.16.84 0.1.956165.3.579.2.593 1975 Unknown [id number] 2.16.84 0.1.216861.3.579.2.593 1975 Unknown [id number] 2.16.84 0.1.255502.3.579.2.593 1975 Unknown [id number] 2.16.84 0.1.082983.3.579.2.593 1975 Unknown [id number] 2.16.84 0.1.208924.3.579.2.593 1975 Unknown [id number] 2.16.84 0.1.333123.3.579.2.593 1975 Unknown [id number] 2.16.84 0.1.784216.3.579.2.593 1975 Unknown [id number] 2.16.84 0.1.891903.3.579.2.593 1975 Unknown [id number] 2.16. 840.1.975230.3.579.2.732 1975 Unknown [id number] 2.16. 840.1.072501.3.579.2.732 1975 Unknown [id number] 2.16. 840.1.635930.3.579.2.732 1975 Unknown [id number] 2.16. 840.1.110565.3.579.2.732 1975 Unknown [id number] 2.16. 840.1.054367.3.579.2.73 1975 Unknown [id number] 2.16. 840.1.034975.3.579.2.73 1975 Unknown [id number] 2.16. 840.1.993201.3.579.2.732 1975 Unknown [id number] 2.16. 840.1.767386.3.579.2.732 1975 Unknown [id number] 2.16. 840.1.419528.3.579.2.732 1975 Unknown [id number] 2.16. 840.1.910707.3.579.2.732 1975 Unknown [id number] 2.16. 840.1.154058.3.579.2.732 1975 Unknown [id number] 2.16. 840.1.218391.3.579.2.732 1975 Unknown [id number] 2.16. 840.1.396539.3.579.2.732 1975 Unknown [id number] 2.16. 840.1.861125.3.579.2.732 1975 Unknown [id number] 2.16.8 40.1.346379.3.579.2.598 1975 Unknown [id number] 2.16.840 .1.225344.3.579.2.1259 1975 Unknown [id number] 2.16.8 40.1.436109.3.579.2.173 1975 Unknown [id number] 2.16.8 40.1.926300.3.579.2.173 1975 Unknown [id number] 2.16.8 40.1.238726.3.579.2.173 1975 Unknown [id number] 2.16.8 40.1.611770.3.579.2.173 1975 Unknown [id number] 2.16.8 40.1.351329.3.579.2.173 1975 Unknown [id number] 2.16.8 40.1.751868.3.579.2.1286 1975 Unknown [id number] 2.16.84 0.1.768735.3.579.2.1286 1959 Unknown [id number] 1.2.840.385204.1.13.239.2.7.3.701075.31 5 1959 Unknown [id number] 1959 Unknown [id number] 3 Medicaid [place] Advantage [id number] 501 [id number] Unknown [id number] 2.16.8 40.1.361763.3.579.2.531 Unknown [id number] 2.16.8 40.1.273385.3.579.2.531 Unknown [id number] 2.16.8 40.1.235476.3.579.2.531 Unknown [id number] [id number] Unknown [id number] Social History Date Type Detail Facility Start: 02-16-2022 End: 06-18-2022 Occasional alcohol use Occasional alcohol use [place] [address] DO Work Phone: Comment on above: 2 bottles of pop alonso ly.; Quit 2019; Start: 11-30-2021 End: 08-08-2023 Tobacco smoking status NHIS Ex-smoker [employer] Phone: End: 01-20-2021 History of tobacco use Cigarette Smoker [employer] Phone: Start: 11-30-2021 End: 06-18-2022 Tobacco use and exposure Smokeless tobacco non-user [employer] Phone: Start: 12-22-2021 End: 12-13-2022 Alcohol intake Lifetime non-drinker (finding) [employer] Phone: Start: 11-30-2021 Tobacco Comment occasional smo ker for 2 years, she quit over a year now [employer] Phone: Start: 1975 Sex Assigned At Not on file M [employer] Phone: Start: 01-05-2022 End: 04-24-2023 Tobacco Comment occasional smoker for 2 years, she quit in 2019 [employer] Work Phone: Start: 12-26-2021 End: 01-05-2022 Exposure to SARS-CoV-2 (event) Not sure [employer] Phone: Tobacco smoking stat [facility] Tobacco smoking consumption unknown [facility] Sex Assigned At [facility] Other Start: 02-16-2022 End: 10-19-2022 Alcohol intake Ex-drinker (finding) [facility] End: 01-20-2021 History of tobacco use Current smoker [facility] Start: 1975 Sex Assigned At Female F [facility] Start: 10-18-2022 History SDOH Social Connections Phone 4 [facility] Start: 10-18-2022 History SDOH Social Connections Get Together 2 [facility] Start: 10-18-2022 History SDOH Social Connections Evangelical 1 [facility] Start: 10-18-2022 History SDOH Social Connections Living 7 [facility] Start: 10-18-2022 History SDOH Physica l Activity DPW 0 [facility] Start: 10-17-2022 Education 12 [facility] Procedure Code Equipment Code Equipment Origin al Text Equipment Identifier Dates Stent Uret 6 Frx 24 Cm Firm Monofilament Tria - [id number] Start: 01-05-2022 Plate Bone 4mml [id number] - [id number] Start: 07-14-2022 Screw 2.0 X 10mm Self-Tapping Pc1 50 - [id number] Start: 07-14-2022 Pin Cross 2.0 X 5mm Pc1 50 - [id number] Start: 07-14-2022 Earp 8mm Screw [id number] Start: 07-14-2022 Goals Date Patient Goal Desired Activity /State Functional Status Date Assessment Result Facility 10-14-2021 PHQ-9 [id number] Moder ately Severe (15-19) [facility] 250 DO Work Phone: Clinical Notes 11-09-2021 to 09-20-2023 Note Date & Type Note Facility 09-20-2023 Evaluation note Encounter Date Diagnosis Assessment Notes Aug, Obstructive sleep apnea (adult) (pediatric) (ICD-10 - G47.33) Before surgical interventions, she had very severe sleep apnea with an index of over 70 events per hour. She was completely intolerant of CPAP, and had hoped to qualify for Inspire Therapy. Dr. Moreno did 2 surgeries in hopes of improving the apnea to the point that inspire could be ordered. Polysomnography afterwards showed an apnea-hypopnea of 16.2 with severe hypoxia. The patient reports that she has been unable to get inspire, but we do not really know what insurance company criteria have not been met. I am not sure what we can do to fix the problem, but we will try to get in touch both with the inspire therapy people and with the surgical office to figure out why the denials happened. I offered referral locally, but she declines for now. Aug, Intolerance of continuous positive airway pressure (CPAP) ventilation (ICD-10 - Z78.9) She is completely and totally intolerant of CPAP and cannot use that intervention. She has failed it previously and feels strongly enough about it that she does not even want to try it again. 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 Her previous patterns of very late bedtimes and very late awakenings have changed as outlined above. Aug, Insufficient sleep syndrome (ICD-10 - F51.12) Decreased total sleep time we will add to daytime sleepiness, and can have negative effects on overall health Aug, Bipolar depression (ICD-10 - F31.9) Aug, BMI 30.0-30.9,adult (ICD-10 - Z68.30) I encouraged her to continue efforts at progressive weight loss. If she is able to get her body weight down low enough, sleep apnea could possibly improve even to the point of resolution, [employer] [facility]* Encounter Date Diagnosis Assessment Notes Treatment Notes Treatment Clinical Notes Jun, Diarrhea, unspecified type (ICD-10 - [...] COLONOSCOPY. Jun, Fecal urgency (ICD-10 - R15.2) [employer] Other 10-17-2023 Evaluation note* Encounter Date Diagnosis [...] (suspected) exposure to covid-19 (ICD-10 - Z20.822) [employer] Other 06-07-2023 Telephone encounter Note* Telephone Encounter - Rikki Rodrigues DMD, MD - 01/26/2023 10:18 AM EDT Called and left voicemail for patient. Post-op Home Sleep Test reviewed from [facility], and there is considerable improvement. Pre-op AHI is 102, now down to 31. Pre-op O2 Carlene of 71%, now up to 82%. However, still with considerable desat time. There are notes from Dr. Moreno evaluating for INSPIRE Juanita presume, but nothing since November. Asked patient for call back or mychart message with if she has been able to continue with Dr. Moreno at his new office, or if she needs referral to another [facility]. -montrell [facility] Work Phone: 1(482) [phone] Miscellaneous Notes* Telephone Encounter - Rikki Rodrigues DMD, MD - 01/26/2023 10:18 AM EDT Called and left voicemail for patient. Post-op Home Sleep Test reviewed from [facility], and there is considerable improvement. Pre-op AHI [...] or [facility] documented in this [id number] NoteOPERATIVE NOTE OPERATION DATE: 11/12/2022 PROCEDURE: Robotic assisted laparoscopic salpingectomy. PREOPERATIVE DIAGNOSIS: Multiparity, desires permanent sterilization. POSTOPERATIVE DIAGNOSIS: Multiparity, desires permanent sterilization. ANESTHESIA: General. SURGEON: Oswald Harrington D.O. TURNER OFF: VIRAJ Salazar URINE OUTPUT: Yellow and clear. [...] lap and needle counts were correct x2.[facility] AdministrationCumpftqk83-85-7300 Telephone encounter Note* Telephone Encounter - Tatiana Morris - 11/04/2022 3:51 PM EDT Opened in error [id number] Miscellaneous Notes* Telephone Encounter - Tatiana Morris - 11/04/2022 3:51 PM EDT Opened in error documented in this [id number] Telephone encounter Note* Telephone Encounter - Rikki Rodrigues DMD, MD - 11/01/2022 2:32 PM EDT Called patient and left voicemail. Advised that order for post-op PSG was faxed to [facility] [place]. Left number to call to schedule study at her convenience ([phone]) [facility] Phone: 1(375) [phone] Miscellaneous Notes* Telephone Encounter - Rikki Rodrigues DMD, MD - 11/01/2022 2:32 PM EDT Called patient and left voicemail. Advised that order for post-op PSG was faxed to [facility]. Left number to call to schedule study at her convenience ([phone]) documented in this [id number] History general Narrative - Reported* Type Description [...] counseling for depression, anxiety Hospitalization History dehydration [employer] Other 01-18-2023 History of Present illness Narrative* [...] -Complete sleep study with Dr. Mcmanus in [place], [place] in 1.5 months -Follow up with patient's general dentist, Sinan Jones DDS for denture adjustment Follow-Up: After new sleep study Follow up sooner with new or worsening symptoms. Sinan Jones DDS [facility] E [facility] [place] [address] Wiley Mcmanus MD [facility] [address] [place] [address] Seferino Vaz DMD [facility] Resident documented in this [id number] Instructions* Patient Instructions* Wilfredo Vang DMD - 08/30/2022 12:07 PM EST With clean hands massage gums under your upper lip daily at night time No food restrictions Follow up with your dentist We will contact your Sleep Center in [place] to have a Sleep Study completed in 1.5 months. documented in this [id number] Instructions* Patient Instructions* Wilfredo Vang DMD - 08/30/2022 12:07 PM EST With clean hands massage gums under your upper lip daily at night time No food restrictions Follow up with your dentist We will contact your Sleep Center in [place] to have a Sleep Study completed in 1.5 months. documented in this [id number] History of Present illness Narrative* Seferino Vaz [...] -Complete sleep study with Dr. Mcmanus in [place], [place] in 1.5 months -Follow up with patient's general dentist, Sinan Jones DDS for denture adjustment Follow-Up: PRN Follow up sooner with new or worsening symptoms. Sinan Jones DDS [place] [address] [place] [address] Wiley Mcmanus MD [facility] [address] [place] [address] Seferino Vaz DMD OMFS Resident documented in this [id number] Telephone encounter Note* Telephone Encounter - Jerel Villegas DDS - 08/11/2022 8:07 AM EST Called the patient twice this week to remind her regarding the follow up this Tuesday (08/13/22) andto offer to follow up sooner if she prefers. Patient did not answer. Message was left. Also attempted to call the alternative work number listed. Was unable to reach the patient at this number. Jerel Villegas DDS, MD OM- PGY4 [phone] [employer] Work Phone: 1(486) [phone] Miscellaneous Notes* Telephone Encounter - Jerel Villegas DDS - 08/11/2022 8:07 AM EST Called the patient twice this week to remind her regarding the follow up this Tuesday (08/13/22) andto offer to follow up sooner if she prefers. Patient did not answer. Message was left. Also attempted to call the alternative work number listed. Was unable to reach the patient at this number. Jerel Villegas DDS, MD [facility]- PGY4 [phone] documented in this [id number] Telephone encounter Note* Telephone Encounter - Oliver Rogers DMD - 08/02/2022 4:26 PM EST Called pt. No answer. LVM with callback instructions. Per Dr. Rodrigues, we will not write any work excuse notes or prescribe any pain meds until pt is seenin person for follow up. Oliver Rogers DMD [employer] Work Phone: [phone]) [phone] Miscellaneous Notes* Telephone Encounter - Oliver Rogers DMD - 08/02/2022 4:26 PM EST Called pt. No answer. LVM with callback instructions. Per Dr. Rodrigues, we will not write any work excuse notes or prescribe any pain meds until pt is seenin person for follow up. Oliver Rogers DMD * Telephone Encounter - Zayda Loco - 08/02/2022 [...] options if that is the case. Email: [email or web address] Contact pt @[phone] for questions/concerns documented in this [id number] Telephone encounter Note* Telephone Encounter - Zayda [...] options if that is the case. Email: [email or web address] Contact pt @[phone] for questions/concerns [id number] Telephone encounter Note* Telephone Encounter - Mikal [...] Oral & Maxillofacial Surgery, PGY-3 Team Pager: [phone] [facility] Work Phone: [phone] Miscellaneous Notes* Telephone Encounter - Mikal Rodgers [...] Oral & Maxillofacial Surgery, PGY-3 Team Pager: [phone] documented in this [id number] History of Present illness Narrative* Mikal Rodgers [...] Oral & Maxillofacial Surgery, PGY-3 Team Pager: [phone] documented in this [id number] History of Present illness Narrative* Saleem Mi DMD - 07/19/2022 8:28 AM EST Images from the original note were not included. Initial pre-surgical workup photos: documented in this [id number] Note* Care Plan Note - Penny Brown RN - 07/17/2022 12:33 PM EST Problem: Discharge Planning: Goal: Discharge needs of the adult patient will be met 07/17/2022 1233 by Penny Brown, RN Outcome: Completed 07/17/2022 0743 by Penny Brown, CALISTA Outcome: Progressing Discharge instructions provided to patient with paper scripts and tylenol MEDS to beds. No questions about instructions or medications at this time. IV removed and intact upon removal. Additional home care supplies provided. Patient discharged home with family member. [id number] Miscellaneous Notes* Care Plan Note - Penny [...] year old female Surgical Contact Serial Number: [id number] Preoperative Diagnosis: DIONNE (obstructive sleep apnea) [G47.33] Postoperative Diagnosis: * DIONNE (obstructive sleep apnea) [G47.33] Procedures: Surgical CPTs Procedures RECONSTRUCTION MIDFACE, LEFORT I; 1 PIECE, W/O BONE GRAFT RECONSTRUCTION, MANDIBULAR RAMI &/OR BODY, SAGITTAL SPLIT; W/INT RIGID FIXATION No data filed Surgeon(s): Surgeon(s): Rikki Rodrigues DMD, MD Staff: Scrub: Annelise Saeed RN; Babs Wells RN Deep Well Contractor Nurse: Stephanie Brannon RN; Babs Wells RN Sawyer Cork Slabs: Margot Ovalles DDS; Saleem Mi DMD Anesthesia: [...] were discussed with the patient and/or legal tax compliance representative. The risks, benefits and alternatives were reviewed. Questions regarding blood transfusions were answered. The patient /or the patient s legal tax compliance representative agree with the plan for transfusion of blood and/or blood components. * Anesthesia Attestation - Ki Atwood MD - 07/14/2022 7:06 AM EST Anesthesia Attestation ATTESTATION OF INFORMED CONSENT FOR ANESTHESIA Anesthesia options were discussed with the patient and/or legal tax compliance representative. The risks, benefits and alternatives were reviewed. Questions regarding anesthesia were answered. Patient and/or legal tax compliance representative knows such anesthetics and procedures may be performed by Resident physicians, Certified Anesthesiologist Assistants, or Certified Nurse Anesthetists under the supervision of a physician. The patient /or the patient s legal representativeagree with the plan for anesthesia. 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 OMFS PROGRESS NOTE Isabelle Hewitt is a [...] Oral 2x Daily 100 mg at 07/16/22 08 bisacodyl (DULCOLAX) 5 MG enteric coated tablet 10 mg Oral Daily PRN oxymetazoline (AFRIN) 0.05 % nasal solution 2 Martell Nasal Q4H PRN sodium chloride (OCEAN) 0.65 % nasal spray 1 Martell Nasal Q1H PRN naloxone (NARCAN) 0.4 MG/ML [...] to be discharged to follow up with [facility] clinic. * Lola Wyatt RN - 07/16/2022 [...] injection 40 mg, 40 mg, Subcutaneous, Daily, dEita Meyer MD, 40 mg at 07/16/22 0811 [...] ivpb, 3,000 mg, Intravenous, Q6H Antibiotic, El NaboulsyMargot DDS, Last Rate: 200 mL/hr at 07/16/22 0959, 3,000 mg at 07/16/22 0959 atorvastatin (LIPITOR) tablet, 20 mg, Oral, Daily, Oliver Rogers DMD, 20 mg at 07/16/22 0811 clonazePAM (KlonoPIN) tablet, 1 mg, Oral, Q12H PRN, Oliver Rogers, DMD levothyroxine (SYNTHROID) tablet, 50 mcg, Oral, Before Breakfast, Oliver Rogers, DMD, 50 mcg at 07/16/22 0655 metformin (GLUCOPHAGE) tablet, 500 mg, Oral, Daily, Oliver Rogers, DMD, 500 mg at 07/16/22 0812 oxybutynin (DITROPAN) 5 MG tablet, 5 mg, Oral, 3x Daily, Oliver Rogers, DMD, 5 mg at 07/16/22 0655 venlafaxine (EFFEXOR XR) 24 hour capsule, 75 mg, Oral, Daily, Oliver Rogers, DMD, 75 mg at 07/16/22 0811 chlorhexidine (PERIDEX) 0.12 % oral solution, 15 mL, Swish & Spit, 2x Daily, Oliver Rogers, DMD, 15 mL at 07/16/22 0811 famotidine (PEPCID) tablet, 20 mg, Oral, 2x Daily, Oliver Rogers, DMD, 20 mg at 07/16/22 0811 ibuprofen (MOTRIN) tablet, 600 mg, Oral, Q6H PRN, Oliver Rogers, DMD ondansetron (ZOFRAN) 4 MG/2ML injection, 4 mg, Intravenous Push, Q6H PRN, Oliver Rogers, DMD docusate sodium (COLACE) capsule, 100 mg, Oral, 2x Daily, Oliver Rogers, DMD, 100 mg at 07/16/22 0811 bisacodyl (DULCOLAX) 5 MG enteric coated tablet, 10 mg, Oral, Daily PRN, Oliver Rogers, DMD oxymetazoline (AFRIN) 0.05 % nasal solution, 2 Martell, Nasal, Q4H PRN, Oliver Rogers DMD sodium chloride (OCEAN) 0.65 % nasal spray, 1 Martell, Nasal, Q1H PRN, Oliver Rogers, DMD naloxone [...] Cr Ca Mg PO4 07/16/22 0401 2.0 07/16/22400 144 4.0 103 31 14 [...] Bedtime, Oliver Rogers DMD, 10 mg at 07/14/22 2217 oxybutynin (DITROPAN) 5 MG tablet, 5 mg, [...] oxymetazoline (AFRIN) 0.05 % nasal solution, 2 Martell, Nasal, Q4H PRN, Oliver Rogers DMD sodium chloride (OCEAN) 0.65 % nasal spray, 1 Martell, Nasal, Q1H PRN, Oliver Rogers DMD enoxaparin (LOVENOX) 40 MG/0.4ML injection 40 mg, 40 mg, Subcutaneous, Daily, Oliver Rogers DMD, 40 mg at 07/14/22 1658 naloxone (NARCAN) 0.4 MG/ML injection, 0.4 mg, Intravenous Push, PRN, Ki Atwood MD lactated ringers iv infusion, , Intravenous, Continuous, Saleem Mi DMD, Last Rate: 75 mL/hr at109/14/21 0700, Rate [...] Hct MCV RDW Plt PT aPTT INR 07/15/2243 18.2 3.55 11.5 34.4 97 13.6 267 07/14/22 0844 12.2 37.6 Basic Metabolic Panel Na K Cl CO2 Gap Glu BUN Cr Ca Mg PO4 07/15/2243 141 4.3 102 28 15 147 16 0.91 8.0 07/14/22843 142 3.7 Arterial Blood Gases T Site Mode LPM FIO2 pH pCO2 pO2 Sat Base Ex HCO3- A-a 07/14/2244 24 07/14/22 0844 7.429 37.0 118 98.8 [...] coordinate timing of transfer to floor with OMFS given concern for airway postoperatively. Her swelling [...] discussed. Zehra Stearns MD documented in this [id number] Note* Care Plan Note - Penny Brown [...] adult patient will be met Outcome: Progressing [id number] Note* Care Plan Note - Lauren Crawford [...] adult patient will be met Outcome: Progressing [id number] Note* Care Plan Note - Alon Cotton [...] monitoring. Patient free of falls/injuries during shift. [facility]12[facility] History and physical note* Zehra Stearns MD - 07/14/2022 3:58 PM EST Images from the original note were not included. Surgical ICU H&P Isabelle Hewitt [id number] HPI: Ms Hewitt is a 47 year [...] Clifford Cruz MD PGY-5 Radiology SICU Pager [phone] [facility] Pager -[phone], Weekdays 6a-6p [place] Pager -[phone], Weekdays 6p-6a, weekends Attending Attestation I saw [...] stepdown for airway monitoring. Zehra Stearns MD [id number] History and physical note* Zehra Stearns MD - 07/14/2022 3:58 PM EST Images from the original note were not included. Surgical ICU H&P Isabelle Hewitt [id number] HPI: Ms Hewitt is a 47 year [...] Clifford Cruz MD PGY-5 Radiology SICU Pager -[phone] [facility] Surgery Pager -[phone], Weekdays 6a-6p [place] Pager -[phone], Weekdays 6p-6a, weekends Attending Attestation I saw [...] Yes Saleem Mi DDS documented in this [id number] NoteSurgical Attestation: I have reviewed the patient's History and Physical Examination. I have personally seen and evaluated the patient, repeating ulloa portions. There is no significant interval change. Surgery is still indicated. Yes Consent reviewed and signed by patient/family: Yes Operative site verified: Yes [facility] [id number] Note* Brief Operative Note - Rikki Rodrigues DMD, MD - 07/14/2022 8:30 AM EST Brief Operative Note MAIN OR 12 Isabelle Hewitt 47 year old female Surgical Contact Serial Number: [id number] Preoperative Diagnosis: DIONNE (obstructive sleep apnea) [G47.33] Postoperative Diagnosis: * DIONNE (obstructive sleep apnea) [G47.33] Procedures: Surgical CPTs Procedures RECONSTRUCTION MIDFACE, LEFORT I; 1 PIECE, W/O BONE GRAFT RECONSTRUCTION, MANDIBULAR RAMI &/OR BODY, SAGITTAL SPLIT; W/INT RIGID FIXATION No data filed Surgeon(s): Surgeon(s): Rikki Rodrigues DMD, MD Staff: Scrub: Annelise Saeed, CALISTA; Babs Wells, CALISTA Deep Well Contractor Nurse: Stephanie Brannon RN; Babs Wells RN Sawyer Cork Slabs: Margot Ovalles DDS; Saleem Mi DMD Anesthesia: [...] Rikki Rodrigues DMD, MD 07/14/2022 12:58 PM [employer] Work Phone: 1(617) 477-977511-23-2022 History and physical note* Saleem Mi DMD - 07/14/2022 7:13 AM EST Surgical Attestation: I have reviewed the patient's History and Physical Examination. I have personally seen and evaluated the patient, repeating ulloa portions. There is no significant interval change. Surgery is still indicated. Yes Consent reviewed and signed by patient/family: Yes Operative site verified: Yes Saleem Mi DDS [employer] Work Phone: 1(570) 820-811411-23-2022 Note* Blood Attestation - Ki Atwood MD - 07/14/2022 7:06 AM EST Blood Attestation ATTESTATION OF INFORMED CONSENT FOR BLOOD The transfusion of blood and/or blood components were discussed with the patient and/or legal tax compliance representative. The risks, benefits and alternatives were reviewed. Questions regarding blood transfusions were answered. The patient /or the patient s legal tax compliance representative agree with the plan for transfusion of blood and/or blood components. [employer] Work Phone: 1(934) 343-239911-23-2022 Note* Anesthesia Attestation - Ki Atwood MD - 07/14/2022 7:06 AM EST Anesthesia Attestation ATTESTATION OF INFORMED CONSENT FOR ANESTHESIA Anesthesia options were discussed with the patient and/or legal tax compliance representative. The risks, benefits and alternatives were reviewed. Questions regarding anesthesia were answered. Patient and/or legal tax compliance representative knows such anesthetics and procedures may be performed by Resident physicians, Certified Anesthesiologist Assistants, or Certified Nurse Anesthetists under the supervision of a physician. The patient /or the patient s legal representativeagree with the plan for anesthesia. [id number] Telephone encounter Note* Telephone Encounter - Latoya Manzo RN - 07/09/2022 3:43 PM EST 1541: Contacted pt and informed her to call the ENT office to schedule appt with Dr Moreno s/p jaw surgery in about 3 months due to healing time. Pt verbalized understanding. Latoya Manzo RN [facility] [id number] Miscellaneous Notes* Telephone Encounter - Latoya Manzo RN - 07/09/2022 3:43 PM EST 1541: Contacted pt and informed her to call the ENT office to schedule appt with Dr Hermes monroy/vishal jaw surgery in about 3 months due to healing time. Pt verbalized understanding. Latoya Manzo, RN * Telephone Encounter - Nicole Diaz - 07/09/2022 2:[address] Joel, Patient calling stating that she is going forward with the jaw surgery that you recommended next 07/14/22. Patient would like to know what the next step is for after the surgery. PT: [phone] Gus Luz documented in this [id number] Telephone encounter Note* Telephone Encounter - Nicole Diaz - 07/09/2022 2:[address] Joel, Patient calling stating that she is going forward with the jaw surgery that you recommended next 07/14/22. Patient would like to know what the next step is for after the surgery. PT: [phone] Gus Luz [employer] Work Phone: 1(461) 733-799911-17-2022 Instructions* Patient Instructions* Gena Holbrook APRN-CNP - [...] for pain Please hold all Vitamin E, [place] 3, fish oil and herbal supplements for 1 week prior to surgery documented in this [id number] Note* PSE Appt H&P - Edwina Daniel - 07/08/2022 1:59 PM EST Patient was identified by name and date of . Edwina Daniel Bill of rights provided to patient [id number] Miscellaneous Notes* PSE Appt H&P - Edwina Daniel - 07/08/2022 1:59 PM EST Patient was identified by name and date of . Edwina Daniel Bill of rights provided to patient * PSE Appt H&P - Gena Holbrook APRN-CNP - 07/07/2022 4:03 PM EST Presurgical Evaluation Isabelle Hewitt, [id number] 47 year old Female 07/08/2022 BP 122/80 [...] six months. No STOP-BANG Row Name 07/07/22 1609 History of sleep apnea? Yes Does not use CPAP PS12/17/2021 at [facility] RESPIRATORY DATA INTEGRITY: Respiratory data integrity was [...] Arredondo 4:25 PM 07/08/2022 documented in this [id number] NotePresurgical Evaluation Isabelle Hewitt, [id number] 47 year old Female 07/08/2022 BP 122/80 [...] Yes Does not use CPAP PS12/17/2021 at [facility] RESPIRATORY DATA INTEGRITY: Respiratory data integrity was [...] grossly intact Psychia (more content not included)...[employer] [id number] Note* PSE Appt H&P - Gena Holbrook APRN-BRIAN - 07/07/2022 4:03 PM EST Presurgical Evaluation Isabelle Hewitt, [id number] 47 year old Female 07/08/2022 BP 122/80 [...] Yes Does not use CPAP PS12/17/2021 at [facility] RESPIRATORY DATA INTEGRITY: Respiratory data integrity was [...] Interviewer signature: ARTURO Arredondo 4:25 PM 07/08/2022 [id number] NotePatient is vaccinated for COVID-19. Vaccinations are documented in Epic. Patient does not require pre-op COVID testing per current guidelines.[facility] [id number] Telephone encounter Note* Telephone Encounter - Mary Dennis RN - 07/05/2022 8:53 PM EST Patient is vaccinated for COVID-19. Vaccinations are documented in Epic. Patient does not require pre-op COVID testing per current guidelines. [id number] Miscellaneous Notes* Telephone Encounter - Mary Dennis RN - 07/05/2022 8:53 PM EST Patient is vaccinated for COVID-19. Vaccinations are documented in Epic. Patient does not require pre-op COVID testing per current guidelines. documented in this [id number] Note* PSE Appt H&P - Pierce Ramos APRN-CNP - 07/05/2022 12:06 PM EST [facility]: 1(619) 850-754111-14-2022 Miscellaneous Notes* PSE Appt H&P - Pierce Ramos APRN-CNP - 07/05/2022 12:06 PM EST Error documented in this [id number] History of Present illness Narrative* Seferino Vaz DMD - 07/02/2022 11:00 AM EST ORAL SURGERY CLINIC FOLLOW UP VISIT Patient was seen in the [facility] clinic for alginate impressions of the edentulous maxilla and CBCT with denture in place. Seferino Vaz DMD [facility] Resident msBrad documented in this [id number] History of Present illness Narrative* Rikki Rodrigues DMD, MD - 06/18/2022 4:17 PM EDT Images from the original note were not included. OMFS PATIENT VISIT CHIEF COMPLAINT: sleep apnea HISTORY OF PRESENT ILLNESS: Patient presents for evaluation for surgical treatment of DIONNE. She is extremely symptomatic from her DIONNE, and suffers from CPAP intolerance. [place] sleepiness scale is 18. Patient is starting [...] norms. Retrognathic mandible. DIAGNOSIS: Obstructive sleep apnea [084903] TREATMENT: Exam, Panorex evaluated, and pictures/models taken [...] Rikki Rodrigues DMD, MD documented in this [id number] History of Present illness Narrative* Margot Ovalles DDS - 06/18/2022 4:17 PM EDT Images from the original note were not included. OMFS PATIENT VISIT CHIEF COMPLAINT: sleep apnea HISTORY OF PRESENT ILLNESS: Patient presents for evaluation for surgical treatment of DIONNE. She is extremely symptomatic from her DIONNE, and suffers from CPAP intolerance. [place] sleepiness scale is 18. Patient is starting [...] norms. Retrognathic mandible. DIAGNOSIS: Obstructive sleep apnea [762866] TREATMENT: Exam, Panorex evaluated, and pictures/models taken [...] Rikki Rodrigues DMD, MD documented in this [id number] Instructions* Patient Instructions* Rikki Rodrigues DMD, MD [...] fatigue and inconsistent sleep. documented in this [id number] NoteSurgical Attestation: I have reviewed the patient's History and Physical Examination. I have personally seen and evaluated the patient, repeating ulloa portions. There is no significant interval change. Surgery is still indicated. Yes Consent reviewed and signed by patient/family: Yes Operative site verified and marked: site verified but not marked as not anatomically possible Ryann Brown PA-C 06/03/2022 11:55 AMThe [employer]10-10-2022 Evaluation note* Encounter Date Diagnosis Assessment Notes Treatment Notes Treatment Clinical Notes May, Encounter for screening for other viral diseases (ICD-10 - Z11.59) [employer] Other 10-07-2022 Note* PSE Call H&P - Rose Brown RN - 05/28/2022 9:42 AM EDT Images from the original note were not included. Telephone History Isabelle Hewitt, [id number] 05/28/2022 47 year old 190 lbs 5' [...] pain. Do not take any Vitamin E, Waseca 3, fish oils, herbal medications 7 days [...] Spent Performing this Telephone History: 30 minutes [id number] Miscellaneous Notes* PSE Call H&P - Rose Brown RN - 05/28/2022 9:42 AM EDT Images from the original note were not included. Telephone History Isabelle Hewitt, [id number] 05/28/2022 47 year old 190 lbs 5' [...] pain. Do not take any Vitamin E, [place] 3, fish oils, herbal medications 7 days [...] Telephone History: 30 minutes documented in this [id number] Telephone encounter Note* Telephone Encounter - Mary Dennis RN - 05/28/2022 8:15 AM EDT Patient is scheduled for DISE on 06/03/2022. Prefers to complete pre-op COVID testing closer to home. Instructed to obtain testing 48-72 hours prior to surgery and bring copy of results on day of surgery. PSE contact information provided. OcnxzTqdvgb06-05-0524 Miscellaneous Notes* Telephone Encounter - Mary Dennis RN - 05/28/2022 8:15 AM EDT Patient is scheduled for DISE on 06/03/2022. Prefers to complete pre-op COVID testing closer to home. Instructed to obtain testing 48-72 hours prior to surgery and bring copy of results on day of surgery. PSE contact information provided. documented in this [id number] Telephone encounter Note* Telephone Encounter - aMry Dennis RN - 05/26/2022 9:16 PM EDT Arrangements to be made for pre-op COVID testing per ENT request. [id number] Miscellaneous Notes* Telephone Encounter - Mary Dennis RN - 05/26/2022 9:16 PM EDT Arrangements to be made for pre-op COVID testing per ENT request. documented in this [id number] Note* Addendum Note - Yi Moreno MD - 05/26/2022 5:25 PM EDTAddended by: YI MORENO on: 05/26/2022 05:25 PM Modules accepted: Orders [id number] Miscellaneous Notes* Addendum Note - Yi Moreno MD - 05/26/2022 5:25 PM EDTAddended by: YI MORENO on: 05/26/2022 05:25 PM Modules accepted: Orders documented in this [id number] History of Present illness Narrative* Yi Moreno MD - 03/29/2022 2:41 PM EDT Images from the original note were not included. .Documentation: Mode: Telephone Patient Home Phone: Patient Patient Cell Preferred phone: [phone] Consent: I confirmed patient understanding of the [...] on prior sleep endoscopy documented in this [id number] History of Present illness Narrative* Yi Moreno MD - 03/29/2022 2:41 PM EDT Images from the original note were not included. .Documentation: Mode: Telephone Patient Home Phone: Patient Patient Cell Preferred phone: [phone] Consent: I confirmed patient understanding of the [...] on prior sleep endoscopy documented in this [id number] Telephone encounter Note* Telephone Encounter - Alexandra Tatiana - 03/09/2022 1:53 PM EDT Patient calling [...] to turn it in is 03/19/22. PH#: [phone] MzjppSlvfce07-49-0814 Miscellaneous Notes* Telephone Encounter - Tatiana Morris [...] to turn it in is 03/19/22. PH#: [phone] documented in this [id number] Note* Care Plan Note - Iglesia Amin [...] will be met Outcome: Adequate for Discharge YpgqePcwztp57-04-6995 Miscellaneous Notes* Care Plan Note - Iglesia [...] Progressing * Care Plan Note - Ashvin Mims - [...] year old female Surgical Contact Serial Number: [id number] Preoperative Diagnosis: DIONNE (obstructive sleep apnea) [G47.33] Postoperative Diagnosis: * DIONNE (obstructive sleep apnea) [G47.33] Procedures: Surgical CPTs Procedures PALATOPHARYNGOPLASTY No data filed Surgeon(s): Surgeon(s): Yi Moreno MD Staff: Scrub: Wiley Álvarez Deep Well Contractor Nurse: Mariaa Briseno; Dulce Allred; Babs Wells RN Sawyer Cork Slabs: Yi Piña MD; Unruly Biggs MD Anesthesia: Consult Anesthesiologist: Maite Youssef MD CAA: Mariaa Meneses CAA APPLE PICKER: Cari Hurtado APRN-CRNA Watch And Clock Maker And Repairer: Carol Barrera MD Anesthesia Student: Prema Norris [...] Moreno MD - 02/25/2022 10:00 AM EDT [id number] Isabelle Hewitt 1975 @PATFNAME@ @PATIENTLASTNAME@ [id number] Preoperative diagnosis: 1. Obstructive sleep apnea 2. [...] were discussed with the patient and/or legal tax compliance representative. The risks, benefits and alternatives were reviewed. Questions regarding anesthesia were answered. Patient and/or legal tax compliance representative knows such anesthetics and procedures may [...] were discussed with the patient and/or legal tax compliance representative. The risks, benefits and alternatives were reviewed. Questions regarding blood transfusions were answered. The patient /or the patient s legal tax compliance representative agree with the plan for transfusion of blood and/or blood components. documented in this [id number] NoteOTOLARYNGOLOGY HEAD AND NECK SURGERY DAILY PROGRESS [...] Intake/Output Summary (Last 24 hours) at 02/26/2022 0687 Last data filed at 02/26/2022 0523 Gross per 24 hour Intake 3062.5 ml Output 970 ml Net 2092.5 ml Labs: CBC/PT/INR None Basic Metabolic Panel None Assessment and Plan: Isabelle Hewitt is a 46 year old female who underwent UPPP on 02/25 w/ Dr. Moreno. Intra and perioperative course uncomplicated. Patient transferred to [facility] from PACU. Mild anxiety overnight. No desaturations and pain overall well controlled. Patient on 2L NC when seen in the AM - Wean nc as tolerated - Monitor PO - Restart home meds - Discharge home today as appropriate [id number] [id number] Note* Care Plan Note - Martínez Johnson [...] the patient will be met Outcome: Progressing PeutiFwpcxa00-26-0150 NoteDISCHARGE SUMMARY [address] [address] Isabelle Hewitt Date of : 1975 46 [...] Your Medications These medications were sent to [facility] - [place], [place] - [address], [place] [address] acetaminophen 650 MG CR tablet methylPREDNISolone 4 [...] documented in the resident's note. Wiley Lancaster [facility] Discharge instructions* Discharge Instructions* Unruly Biggs [...] shared with your regular doctor. Isabelle Hewitt [facility] [employer] [facility] [address] Phone numbers Date of Procedure: 02/25/22 Physicians: Dr. Yi Moreno (ENT) Admission Date: 02/25/2022 7:49 AM Discharge Date: No discharge date for patient encounter. Disposition: Home Home Care Agency: none Procedure that was performed: Uvulopalatopharyngoplasty (UPPP) Pending results: No pathology specimen was sent Call [phone] during regular daytime business hours (8:00 am - 5:00 pm) and after 5:00 pm call [phone] and ask to speak with the ENT Resident Supervisor Color Making with any questions or concerns. If it is a life-threatening situation, proceed to the nearest emergency department. Your Follow-up Appointment(s) Future Appointments Date Time Provider Department Center 03/29/2022 3:15 PM Yi Moreno MD [facility] Location: [facility] [place] [address] [place] [address] ([phone]) Thank you for the opportunity to care [...] a stool softener, they may be purchased tipr-aop-xlukbbc at any local drugstore. Signs of Infection Signs of infection can include fever, excessive swelling, heat, drainage, redness, or severe pain. If you see any of these occur, please contact your doctor's office at [phone]. Any fever higherthan 100.4, especially if associated [...] opioids can be used to help relieve mskmypsi-ww-pdbdoc pain and are often prescribed following a [...] or Mental Health Mobile Crisis Help Line [phone] Narcotics Anonymous Center for Disease Control and Prevention www.cdc.gov 211 First Call For Help (14/03) 2-1-1 from phone OR 211Seebright.org Falls Prevention Each year, 1 in every 3 adults over the age of 65 are treated for fall-related injuries. The risk of falling increases with each decade of life. The good news is, many falls are preventable. Here are some fall prevention tips: Exercise can increase strength and improve balance, making falls much less likely. For more informati on visit: http://[facility].org/services/yomv-bzujir-wz-your-health/a-matte s-ao-sllsbqs/ Some medications or combinations of medications can [...] Written by the doctors and editors at UpToDate What are the benefits of exercise? -- [...] of movement, like short walks or doing curriculum development specialist, can help improve your health. What else [...] process is complete. This topic retrieved from [employer] on: Mar 19, 2020. Topic 30392 Version 20.0 Release: 28.4.6 - C28.294 2019 [employer]. and/or its affiliates. All rights reserved. Consumer [...] that is right for you.The use of [employer] content is governed by the [employer] Terms of Use. 2019 [employer]. All rights reserved. Copyright 2020 [employer] and/or its affiliates. All rights reserved. Reviewed April 2020 documented in this [id number] Note* Care Plan Note - Ashvin Mims [...] the patient will be met Outcome: Progressing [id number] NoteAddendum created 02/25/22 1219 by Mariaa Meneses CAA Intraprocedure Staff editedThe [facility]07-07[facility] History of Present illness Narrative* Ailyn Son [...] no areas of redness. documented in this [id number] NoteSurgical Attestation: I have reviewed the patient's History and Physical Examination. I have personally seen and evaluated the patient, repeating ulloa portions. There is no significant interval change. Surgery is still indicated. Yes Consent reviewed and signed by patient/family: Yes Operative site verified and marked: Yes Yi Moreno MD 02/25/2022 8:56 AMThe [facility] [place]07-07-[facility] Note* Brief Operative Note - Yi Moreno MD - 02/25/2022 10:00 AM EDT Brief Operative Note MAIN OR 11 Isabelle Hewitt 46 year old female Surgical Contact Serial Number: [id number] Preoperative Diagnosis: DIONNE (obstructive sleep apnea) [G47.33] Postoperative Diagnosis: * DIONNE (obstructive sleep apnea) [G47.33] Procedures: Surgical CPTs Procedures PALATOPHARYNGOPLASTY No data filed Surgeon(s): Surgeon(s): Yi Moreno MD Staff: Scrub: Wiley [employer] Contractor Nurse: Mariaa Briseno; Dulce Allred; Babs Wells RN Sawyer Cork Slabs: Yi Piña MD; Unruly Biggs MD Anesthesia: Consult Anesthesiologist: Maite Youssef MD CAA: Mariaa Meneses CAA APPLE PICKER: Cari Hurtado APRN-CRNA Watch And Clock Maker And Repairer: Carol Barrera MD Anesthesia Student: Prema Norris [...] by Yi Moreno MD 02/25/2022 10:40 AM [id number] Note* OP Note - Yi Moreno MD - 02/25/2022 10:00 AM EDT [id number] Isabelle Hewitt 1975 @PATFNAME@ @PATIENTLASTNAME@ [id number] Preoperative diagnosis: 1. Obstructive sleep apnea 2. [...] taken back to recovery in stable condition. [id number] History and physical note* Yi Moreno MD [...] Yes Yi Moreno MD 02/25/2022 8:56 AM [id number] History and physical note* Yi Moreno MD [...] MD 02/25/2022 8:56 AM documented in this [id number] Note* Anesthesia Attestation - Maite Youssef MD - 02/25/2022 8:52 AM EDT Anesthesia Attestation ATTESTATION OF INFORMED CONSENT FOR ANESTHESIA Anesthesia options were discussed with the patient and/or legal tax compliance representative. The risks, benefits and alternatives were reviewed. Questions regarding anesthesia were answered. Patient and/or legal tax compliance representative knows such anesthetics and procedures may be performed by Resident physicians, Certified Anesthesiologist Assistants, or Certified Nurse Anesthetists under the supervision of a physician. The patient /or the patient s legal representativeagree with the plan for anesthesia. [facility] Work Phone: 1(665) 873-651507-07-2022 Note* Blood Attestation - Maite Youssef MD - 02/25/2022 8:52 AM EDT Blood Attestation ATTESTATION OF INFORMED CONSENT FOR BLOOD The transfusion of blood and/or blood components were discussed with the patient and/or legal tax compliance representative. The risks, benefits and alternatives were reviewed. Questions regarding blood transfusions were answered. The patient /or the patient s legal tax compliance representative agree with the plan for transfusion of blood and/or blood components. [id number] Telephone encounter Note* Telephone Encounter - Mary Dennis RN - 02/24/2022 7:19 AM EDT PSE received pre-op COVID test results - NOT DETECTED on 02/23/2022. Document scanned into [employer]. [id number] Miscellaneous Notes* Telephone Encounter - aMry Dennis RN - 02/24/2022 7:19 AM EDT PSE received pre-op COVID test results - NOT DETECTED on 02/23/2022. Document scanned into [employer]. documented in this [id number] Telephone encounter Note* Telephone Encounter - Mary Dennis RN - 02/17/2022 2:52 PM EDT Patient is scheduled for surgery 02/25/2022. Prefers to complete pre-op COVID testing closer to home.Instructed to obtain testing 48-72 hours prior to surgery and bring copy of results on day of surgery. PSE contact information provided, order faxed to [facility] per patient request. [id number] Miscellaneous Notes* Telephone Encounter - Mary Dennis RN - 02/17/2022 2:52 PM EDT Patient is scheduled for surgery 02/25/2022. Prefers to complete pre-op COVID testing closer to home.Instructed to obtain testing 48-72 hours prior to surgery and bring copy of results on day of surgery. PSE contact information provided, order faxed to [facility] per patient request. documented in this [id number] Instructions* Patient Instructions* Pierce Ramos APRN-CNP - [...] for pain Please hold all Vitamin E, [place] 3, fish oil and herbal supplements for 1 week prior to surgery documented in this [id number] Note* PSE Appt H&P - Quinton Manzo - 02/16/2022 2:19 PM EDT Patient was identified by name and date of . Quinton Manzo Bill of rights provided to patient [id number] Miscellaneous Notes* PSE Appt H&P - Quinton Manzo 02/16/2022 2:19 PM EDT Patient was identified by name and date of . Quinton Manzo Bill of rights provided to patient * PSE Appt H&P - Pierce Ramos APRN-TRACK REPAIRER - 02/15/2022 2:46 PM EDT Presurgical Evaluation Isabelle Hewitt, [id number] 46 year old Female 02/17/2022 VITAL SIGNS: [...] Yes Does not use CPAP PS12/17/2021 at [facility] RESPIRATORY DATA INTEGRITY: Respiratory data integrity was [...] (LIPITOR) 20 mg tablet EKG 12-LEAD TRACING [40292] PLAN: Documentation complete. Labs, Images, and Medications reviewed, and patient questions answered. Interviewer signature: ARTURO Rankin 8:00 AM 02/17/2022 documented in this [id number] NotePresurgical Evaluation Isabelle Hewitt, [id number] 46 year old Female 02/17/2022 VITAL SIGNS: [...] six months. No STOP-BANG Row Name 02/16/22 1428 History of sleep apnea? Yes Does not [...] No result fo (more content not included)...[employer] [id number] Note * PSE Appt H&P - Pierce Ramos APRN-TRACK REPAIRER - 02/15/2022 2:46 PM EDT Presurgical Evaluation Isabelle Hewitt, [id number] 46 year old Female 02/17/2022 VITAL SIGNS: [...] Yes Does not use CPAP PS12/17/2021 at [facility] RESPIRATORY DATA INTEGRITY: Respiratory data integrity was [...] (LIPITOR) 20 mg tablet EKG 12-LEAD TRACING [80000] PLAN: Documentation complete. Labs, Images, and Medications reviewed, and patient questions answered. Interviewer signature: ARTURO Rankin 8:00 AM 02/17/2022 [id number] Telephone encounter Note* Telephone Encounter - Mary Dennis RN - 02/11/2022 3:52 PM EDT Arrangements to be made for pre-op COVID testing per ENT request. [id number] Miscellaneous Notes* Telephone Encounter - Mary Dennis RN - 02/11/2022 3:52 PM EDT Arrangements to be made for pre-op COVID testing per ENT request. documented in this [id number] History of Present illness Narrative* Yi Moreno [...] diagnostic sleep studies indicating AHI sidein the with the most recent home sleep study from November 2021 indicating an AHI of 63 with an W5dxmnq of 64% Sleep position: Side Mouth breather:y yeses previous sleep surgeries: no Other sleep disorders, such as insomnia/ kataplexy/ narcolepsy: yes, on andoff Bruxism: no tried oral appliance:edenetulous Questionnaires: [place] sleep scale score: 18 FOSQ-10: HADS No [...] middle ear was aerated bilaterally. Clinical speech receptionist nurse thresholds grossly intact. No lesions/mass of auricles. [...] surgery. Patient's procedure will be done at [facility]. This is a difficult airway [...] transfusion as discussed preoperatively. documented in this [id number] History of Present illness Narrative* Randa Yanes [...] or not. Verbalizes understanding. documented in this [facility] [employer] Phone: 1(515) 652-507905-17-2022 Hospital Discharge instructions* Instructions* Ade Easton RN [...] flush the urinary tract.) Call Dr. Hirsch ([phone]) if you develop: Fever over 100 degrees [...] Call Dr. Hirsch office for follow-up appointment ([phone]). documented in this [facility] Phone: 1(777) 897-357403-21-2022 Evaluation note* Encounter Date Diagnosis Assessment Notes [...] changes in symptoms and/or problems with treatment [employer] Other Chief complaint Narrative - ReportedISABELLE HEWITT is being seen for a consultation for abnormal test(s) results.-[facility] Work Phone: Evaluation note* Diagnosis Kidney stones Calculus of kidney documented in this encounter [employer] Phone: evaluation note* Diagnosis Pre-op testing Preoperative examination, unspecified documented in this encounter [employer] Phone: evaluation note* Diagnosis Ureteral calculus- Primary Calculus of ureter documented in this encounter [employer] Phone: evalusjiwp note* Diagnosis DIONNE (obstructive sleep apnea)- Primary Obstructive sleep apnea (adult) (pediatric) Body mass index (BMI) 34.0-34.9, adult [facility] InformationNort [employer] Other Evaluation note* Diagnosis DIONNE (obstructive sleep [...] ureter documented in this encounter DARIUS PICHARDO [employer] Phone: evaluation note* Diagnosis DIONNE (obstructive sleep apnea)- Primary Obstructive sleep apnea (adult) (pediatric) Encounter for laboratory testing for severe acute respiratory syndrome coronavirus 2 (SARS-CoV-2) Postoperative pain Other acute postoperative pain [facility] Diagnosis DIONNE (obstructive sleep apnea)- Primary Obstructive sleep apnea (adult) (pediatric) [facility] in [facility] Work Phone: Evaluation note* Diagnosis Obstructive sleep [...] note* Diagnosis Dysuria documented in this encounter [employer] Phone: evaluation note* Diagnosis Post-operative state- Primary Other postprocedural status [facility] in this [facility]* Diagnosis Post-operative state- Primary Other postprocedural status [facility] in [facility]* Diagnosis OAB (overactive bladder) Hypertonicity of bladder Urge incontinence Frequency of urination Urinary frequency documented in this encounter [employer] Phone: History and physical note Author David Martinez [facility] August 08, 2023 12:30pm Note Date/Time August 08, 2023 12:30pm [facility] [address] [place] [address] Gastroenterology H&P Signed Patient: Isabelle Hewitt I MR#: [id number] : 1975 Acct:[id number] Age/Sex: 48 / F Adm Date: 3 Loc: Room: Type: [facility] Attending Dr: David Martinez MD Copies to: MD Gena Seaman NP-C~ Date of Service: 08/08/2023 HISTORY & PHYSICAL: [...] M.D. Documented By: David Martinez MD 08/08/23 1224 Signed By: <Electronically signed by David Martinez MD> 08/08/23 1230 [facility] Work Phone: History general Narrative - Reported* Type Description Date Medical History anxiety Medical History Hypertension Medical History sleep apnea Surgical History C section Surgical History cholecystectomy Hospitalization History see above Hospitalization History no history of ps ychiatric hospitalization, substance abuse, and suicide attempts, but she is history of ongoing treatment of depression and counseling for depression, anxiety Hospitalization History dehydration [employer] Other History general Narrative - Reported* Type [...] counseling for depression, anxiety Hospitalization History dehydration [employer] Other History of Present illness Narrative* Patient [...] office in 3 to 4 months follow-up [facility] [employer] DO Work Phone: History of Present illness [...] monitor blood pressure call if not better [facility] [employer] 250 DO Work Phone: Hospital Discharge instructions [...] in the office as scheduled -Office number [phone]. [facility] Work Phone: [facility] for visit Narrative* Auth/Cert Specialty Diagnoses / Procedures Referred By Casper t Referred To Contact Diagnoses Kidney stone KIDNEY STONES Procedures CT CYSTO/URETERO W/LITHOTRIPSY &INDWELL STENT INSRT CYSTOSCOPY URETEROSCOPY LASER-WITH Bertha Rai MD [address] [facility], [address] [place] [address] [facility] [address] [place] [address] Referral ID Status Reason Start Date Expiration Date Visits Re quested Visits Authorized [id number] 1 1 [employer] Phone: reason for visit Narrative* Auth/Cert Specialty Diagnoses / Procedures Referred By Casper diaz Referred To Contact General Surgery Diagnoses DIONNE (obstructive sleep apnea) DIONNE (obstructive sleep apnea) [G47.33] Procedures PALATOPHARYNGOPLASTY UVULOPALATOPHARYNGOPLAS TY Yi Moreno MD [address] [place] [address] [facility] [employer] [address] [place] [address] Phone: [phone] Referral ID Status Reason Start Date Expiration Date Visits Re quested Visits Authorized [id number] 3 3 [facility] NarrativeRAPID COVID TEST FOR PROCEDURE, [facility] COVID voluntary/travelNorth [employer] Other Family History Unknown Family Member Name Dates Details Family [...] Family history of dementia: Mother(V17.2, Z81.8) Status:Active Relationship Condition Age at Onset Recorded Date/T judd father Unknown History of malignant neoplasm of prostate Unknown Not Specified Unknown Chief Complaint ISABELLE HEWITT is being seen for hypertension. Summary Purpose Advance Directives Latest Code Status on File Code Status [...] Date/ Time Advance Directives No March 22 018 6:42am Chief Complaint and Reason for Visit Chief Complaint redocumentation of O SA post surgery Chief Complaint g47.33 Chief Complaint qualify for inspire surgery with/dr moreno Chief Complaint r19.7 Chief Complaint r19.7 Diarrhea, Fecal Urgency Chief Complaint Reff By Gena roberts, Consult For Diarr r19.7 Diarrhea, Fecal Urgency Obstructive sleep apnea Chief Complaint Diarrhea, Fecal Urge ncy Obstructive sleep apnea COUGH, CONGESTION, BODYACHE, FLU EXPOSURE Reason for Referral Specialty Diagnoses / Procedures Referred By Contphill t Referred To Contact Oral Surgery Diagnoses DIONNE (obstructive sleep apnea) Yi Moreno MD [address] [place] [address] Rikki Rodrigues DMD, MD [address] [place] [address] Referral ID Status Reason Start Date Expiration Date V isits Requested Visits Authorized [id number] Pending Review 05/26/2022 05/26/2023 3 3 Scheduling Instructions Please call the business systems administrator Clinic at [facility] at to schedule an appointment if one was not made for you today. Question Answer Patient to be evaluated for: Orthognathic/Jaw Surgery Additional Source Comments INFORMATION SOURCE (unrecogn ized section and content) DATE CREATED AUTHOR 12/03/2021 [employer] DATE CREATED AUTHOR AUTHOR'S ORGANIZ ATION 01/31/2023 [facility] DATE CREATED AUTHOR AUTHOR'S ORGANIZ ATION 01/31/2023 [employer] DATE CREATED AUTHOR AUTHOR'S ORGANIZ ATION 02/25/2023 [facility] DATE CREATED AUTHOR AUTHOR'S ORGANIZ ATION 08/25/2023 [facility] DATE CREATED AUTHOR AUTHOR'S ORGANIZ ATION 09/30/2023 [facility] DATE CREATED AUTHOR AUTHOR'S ORGANIZ ATION [facility]/02[facility]2023 [facility] DATE CREATED AUTHOR AUTHOR'S ORGANIZ ATION 10/12/2023 [facility] Care Teams (unrecognized sec tion and content) Team Status: Active Member Role Status Dates Gena Kirby Primary Care Provider Active Team Status: Inactive Member Role Status Dates Gena Kirby Primary Care Provider Active Yi Moreno MD Referring Provider Active Wiley Mcmanus MD Attending Provider Active Laser Machine Operator Relationship Specialty Start Date End Date Gena Kirby [address] [place] [address] PCP - General Nurse Practitioner 11/30/21 Laser Machine Operator Relationship Specialty Start Date End Date JoelnicanorGena keys [address] [place] [address] PCP - General Nurse Practitioner 11/30/21 Laser Machine Operator Relationship Specialty Start Date End Date Gena Kirby [address] [place] [address] PCP - General Nurse Practitioner 11/30/21 Laser Machine Operator Relationship Specialty Start Date End Date Yi Moreno MD [address] [place] [address]396 Physician Otolaryngology 01/23/22 Laser Machine Operator Relationship Specialty Start Date End Date Yi Moreno MD [address] [place] [address] 60832 Physician Otolaryngology 01/23/22 Laser Machine Operator Relationship Specialty Start Date End Date Yi Moreno MD [address] [place] [address] 50608 Physician Otolaryngology 01/23/22 Laser Machine Operator Relationship Specialty Start Date End Date Yi Moreno MD [address] [place] [address] 12844 Physician Otolaryngology 01/23/22 Laser Machine Operator Relationship Specialty Start Date End Date Gena Kirby [address] [place] [address] PCP - General Nurse Practitioner 11/30/21 Laser Machine Operator Relationship Specialty Start Date End Date Yi Moreno MD [address] [place] [address] 47522 Physician Otolaryngology 01/23/22 Laser Machine Operator Relationship Specialty Start Date End Date Yi Moreno MD [address] [place] [address] 56760 Physician Otolaryngology 01/23/22 Laser Machine Operator Relationship Specialty Start Date End Date Yi Moreno MD [address] [place] [address] 58963 Physician Otolaryngology 01/23/22 Laser Machine Operator Relationship Specialty Start Date End Date Yi Moreno MD [address] [place] [address] 61616 Physician Otolaryngology 01/23/22 Team Status: Inactive Member Role Status Dates Gena Kirby Primary Care Provider Active Wiley Mcmanus MD Attending Provider Active Yi Moreno MD Referring Provider Active Laser Machine Operator Relationship Specialty Start Date End Date Yi Moreno MD [address] [place] [address] 97539 Physician Otolaryngology 01/23/22 Laser Machine Operator Relationship Specialty Start Date End Date Yi Moreno MD [address] [place] [address] 55642 Physician Otolaryngology 01/23/22 Rikki Rodrigues DMD, MD [address] [place] [address] 60890 Physician Oral & Maxillofacial Surgery 06/26/22 Laser Machine Operator Relationship Specialty Start Date End Date Yi Moreno MD [address] [place] [address] 57850 Physician Otolaryngology 01/23/22 Laser Machine Operator Relationship Specialty Start Date End Date Yi Moreno MD [address] [place] [address] 87388 Physician Otolaryngology 01/23/22 Rikki Rodrigues DMD, MD [address] [place] [address] 30229 Physician Oral & Maxillofacial Surgery 06/26/22 Laser Machine Operator Relationship Specialty Start Date End Date Yi Moreno MD [address] [place] [address] 04700 Physician Otolaryngology 01/23/22 Rikki Rodrigues DMD, MD [address] [place] [address] 83384 Physician Oral & Maxillofacial Surgery 06/26/22 Laser Machine Operator Relationship Specialty Start Date End Date Yi Moreno MD [address] [place] [address] 59592 Physician Otolaryngology 01/23/22 Rikki Rodrigues DMD, MD [address] [place] [address] 00892 Physician Oral & Maxillofacial Surgery 06/26/22 Laser Machine Operator Relationship Specialty Start Date End Date Yi Moreno MD [address] [place] [address] 09384 Physician Otolaryngology 01/23/22 Laser Machine Operator Relationship Specialty Start Date End Date Yi Moreno MD [address] [place] [address] 59355 Physician Otolaryngology 01/23/22 Rikki Rodrigues DMD, MD [address] [place] [address] 64549 Physician Oral & Maxillofacial Surgery 06/26/22 Laser Machine Operator Relationship Specialty Start Date End Date Yi Moreno MD [address] [place] [address] 19133 Physician Otolaryngology 01/23/22 Rikki Rodrigues DMD, MD [address] [place] [address] 38629 Physician Oral & Maxillofacial Surgery 06/26/22 Laser Machine Operator Relationship Specialty Start Date End Date Yi Moreno MD [address] [place] [address] 22611 Physician Otolaryngology 01/23/22 Rikki Rodrigues DMD, MD [address] [place] [address] 51470 Physician Oral & Maxillofacial Surgery 06/26/22 Laser Machine Operator Relationship Specialty Start Date End Date Yi Moreno MD [address] [place] [address] 11922 Physician Otolaryngology 01/23/22 Rikki Rodrigues DMD, MD [address] [place] [address] 01701 Physician Oral & Maxillofacial Surgery 06/26/22 Laser Machine Operator Relationship Specialty Start Date End Date Yi Moreno MD [address] [place] [address] 73526 Physician Otolaryngology 01/23/22 Rikki Rodrigues DMD, MD [address] [place] [address] 54310 Physician Oral & Maxillofacial Surgery 06/26/22 Gena Holbrook, RESEARCH LEADER-TRACK REPAIRER [address] [place] [address] 13075 CAMPAIGN ANALYST Anesthesiology 07/24/22 Laser Machine Operator Relationship Specialty Start Date End Date Yi Moreno MD [address] [place] [address] 84531 Physician Otolaryngology 01/23/22 Rikki Rodrigues DMD, MD [address] [place] [address] 07614 Physician Oral & Maxillofacial Surgery 06/26/22 Gena Holbrook RESEARCH LEADER-TRACK REPAIRER [address] [place] [address] 29840 CAMPAIGN ANALYST Anesthesiology 07/24/22 Laser Machine Operator Relationship Specialty Start Date End Date JoelGena keys [facility] [place] [address] PCP - General Nurse Practitioner 11/30/21 Laser Machine Operator Relationship Specialty Start Date End Date Yi Moreno MD [address] [place] [address] 35071 Physician Otolaryngology 01/23/22 Rikki Rodrigues DMD, MD [address] [place] [address] 81886 Physician Oral & Maxillofacial Surgery 06/26/22 Gena Holbrook RESEARCH LEADER-TRACK REPAIRER [address] [place] [address] 40384 CAMPAIGN ANALYST Anesthesiology 07/24/22 Laser Machine Operator Relationship Specialty Start Date End Date Yi Moreno MD [address] [place] [address] 77307 Physician Otolaryngology 01/23/22 Rikki Rodrigues DMD, MD [address] [place] [address] 62477 Physician Oral & Maxillofacial Surgery 06/26/22 Gena Holbrook APRN-TRACK REPAIRER [address] [place] [address] 94262 CAMPAIGN ANALYST Anesthesiology 07/24/22 Laser Machine Operator Relationship Specialty Start Date End Date Gnea Kirby [address] [place], [place] [address] [address] PCP - General Nurse Practitioner 11/30/21 Laser Machine Operator Relationship Specialty Start Date End Date Yi Moreno MD [address] [place], [place] [id number] Physician Otolaryngology 01/23/22 Rikki Rodrigues DMD, MD [address] [place] [address] 42526 Physician Oral & Maxillofacial Surgery 06/26/22 Gena Holbrook APRN-TRACK REPAIRER [address] [place] [address] 18077 CAMPAIGN ANALYST Anesthesiology 07/24/22 Team Status: Inactive Member Role Status Dates Gena Kirby Primary Care Provider Active Wiley Mcmanus MD Attending Provider Active Team Status: Inactive Member Role Status Dates Gena Kirby Primary Care Provider Active Majo Lyman APRN Attending Provider Active Team Status: Inactive Member Role Status Dates Gena Kirby Primary Care Provider Active David Martinez MD Attending Provider Active Team Status: Inactive Member Role Status Dates Majo Lyman APRN Attending Provider Active Start: June 30, 2023 End: June 30, 2023 Team Status: Inactive Member Role Status Dates Gena Kirby Primary Care Provider Active Sta rt: June 30, 2023 End: June 30, 2023 Majo Lyman APRN Attending Provider Active Start: June 30, 2023 End: June 30, 2023 Team Status: Inactive Member Role Status Dates Gena Kirby Primary Care Provider Active Sta rt: August 08, 2023 End: August 08, 2023 David Martinez MD Attending Provider Active Start: August 08, 2023 End: August 08, 2023 Team Status: Inactive Member Role Status Dates Gena Kirby Primary Care Provider Active Sta rt: September 20, 2023 End: September 20, 2023 Wiley Mcmanus MD Attending Provider Active S tart: September 20, 2023 End: September 20, 2023 Team Status: Inactive Member Role Status Dates Wiley Mcmanus MD Attending Provider Active S tart: September 20, 2023 End: September 20, 2023 Team Status: Inactive Member Role Status Dates Gena Kirby Primary Care Provider Active Sta rt: October 14, 2023 End: October 14, 2023 Louise Johnson APRN Attending Provider Active Start: October 14, 2023 End: October 14, 2023 Scheduled Active and Recently Administ ered Medications [...] IVPB 400 mg (COMPLETED) 400 mg, IntraVENous, VIDEO PRODUCER TO O.R., 1 dose, On Tue01/05/22 at [...] dose on Tue02/26/22 at 2200, Until Discontinued 2200 (Due) docusate sodium (COLACE) capsule 100 mg, Oral, 2 TIMES DAILY, First dose on Tue02/25/22 at 1430, Until Discontinued, Post-op 1430 (Hold/Not Given - Provider: Jerel Pittman RN - Reason: Patient refused)2054 (Given - Provider: Ashvin Mims) 0851 (Given - Provider: Iglesia Amin RN)2100 (Due) Famotidine (PF) (PEPCID) 20 MG/2ML injection 20 mg, Intravenous Push, 2 TIMES DAILY, First dose on Tue02/25/22 at 1430, Until Discontinued, Post-op 1430 (Hold/Not Given - Provider: Jerel Pittman RN - Reason: Patient refused)2054 (Given [...] Discontinued, Post-op 1700 (Hold/Not Given - Provider: Jerel Pitmtan RN - Reason: Patient refused)2100 (Given - Provider: Ashvin Mims) 0850 (Given - Provider: Iglesia Amin RN)1206 (Given - Provider: Iglesia Amin RN)1700 (Due)2200 (Due) tamsulosin (FLOMAX) capsule 0.4 mg, Oral, DAILY, First dose on Tue02/25/22 at 1430, Until Discontinued, Post-op 1430 (Hold/Not Given - Provider: Jerel Pittman RN - Reason: Patient refused) 0850 (Hold/Not Given - Provider: Iglesia Amin RN - Reason: Patient refused) venlafaxine (EFFEXOR XR) 24 hour capsule 150 mg, Oral, DAILY WITH BREAKFAST, First dose on Tue02/26/22 at 0900, Until Discontinued 0850 (Given - Provid er: Iglesia Amin RN) Continuous Medication Order 02/24/2022 02/25/2022 02/26/2022 lactated ringers iv infusion Intravenous, at 75 mL/hr, CONTINUOUS, Starting on Christen 02/25/22 at 0830, Until Discontinued 1841 (IV New Bag - Provider: Ashvin Mims) 0523 (IV New Bag - Provider: Martínez Johnson, CALISTA) PRN Medication Order 02/24/2022 02/25/2022 02/26/2022 acetaminophen (TYLENOL) tablet 650 mg, Oral, EVERY 4 HOURS PRN, Starting on Christen 02/25/22 at 1815, Until Discontinued, Mild Pain (pain score 1,2,3), Fever 38.5 C and higher, Post-op 2054 (Given - Provider: Ashvin Mims) bupivacaine (MARCAINE) 0.25 % injection (CANCELED) PRN, Starting on Christen 02/25/22 at 1033, Until Christen 02/25/22 at 1046, Intra-op 1033 (Given - Provider: Yi Moreno MD - Comment: intraorally, mouth) clonazePAM (KlonoPIN) tablet 1 mg, Oral, 2 TIMES DAILY PRN, Starting on Tue02/26/22 at 0000, Until Discontinued, Anxiety HYDROmorphone (DILAUDID) 0.2 MG/ML injection 0.2 mg (CANCELED) 0.2 mg, Intravenous Push, PACU EVERY 15 MIN PRN X 4 DOSES, 4 doses, Starting on Christen 02/25/22 at 1025, Until Christen 02/25/22 at 1808, Moderate Pain (pain score 4,5,6), PACU Now 1134 (Given - Provider: Carolyn Verdugo, CALISTA) naloxone (NARCAN) 0.4 MG/ML injection 0.4 mg, Intravenous Push, PRN, Starting on Christen 02/25/22 at 1423, Until Discontinued, Respiratory Rate Less Than 8 for adults and less than 12 for Peds or for suspected overdose, Post-op ondansetron (ZOFRAN) 4 MG/2ML injection 4 mg, Intravenous Push, EVERY 6 HOURS PRN, Starting on Christen 02/25/22 at 1423, Until Tue03/01/22 at 1422, Nausea, Vomiting, Post-op oxybutynin (DITROPAN) 5 MG tablet 5 mg, Oral, 3 TIMES DAILY PRN, Starting on Christen 02/25/22 at 1423, Until Discontinued, Urinary urgency/retention, Post-op 1723 (Hold/Not Given - Provider: Jerel Pittman RN - Reason: Patient refused) oxyCODONE (ROXICODONE) 5 mg/5 mL oral solution 5 mg, Oral, EVERY 4 HOURS PRN, Starting on Christen 02/25/22 at 1423, Until Discontinued, Moderate Pain (pain score 4,5,6), Post-op 0019 (Given - Provid er: Martínez Johnson RN)0550 (Given - Provider: Martínez Johnson, RN)1203 (Given - Provider: Iglesia Amin RN) [...] Patient refused)0916 (Given - Provider: Penny Brown, CALISTA)1400 (Due - Provider: Dulce Olson [facility])1800 (Due - Provider: Dulce Olson [facility])2200 (Due - Provider: Dulce Olson [facility]) acetaminophen (TYLENOL) tablet (CANCELED) 650 mg, Oral, EVERY 4 HOURS, First dose on Tue07/14/22 at 1530, Until Discontinued, ICU/Step Down 0346 (Given - Provider: Alon Cotton RN)0800 (Given - Provider: Lauren Crawford RN) ampicillin-sulbactam (Unasyn) 3000 mg in NS 100 mL ivpb 3,000 mg, Intravenous, EVERY 6 HOURS ANTIBIOTIC, 20 doses, First dose on Christen 07/15/22 at 0830, Last dose on Tue07/20/22 at 0400 0900 (IV New Bag - Provider: Lauren Crawford RN)1553 (IV New Bag - Provider: Lauren Crawford RN)2123 (IV New Bag - Provider: Lemuel Gilbert, CALISTA) 0348 (IV New Bag - Provider: Donya Lam, RN)0959 (IV New Bag - Provider: Linh Fregoso, CALISTA)202 (Hold/Not Given - Provider: Lola Wyatt RN - Reason: Medication unavailable - Comment: Med initially due 1600.)2100 (IV New Bag - Provider: Lola Wyatt RN) 0406 (IV New Bag - Provider: Lola Wyatt RN)1000 (Hold/Not Given - Provider: Penny Brown, CALISTA - Reason: Loss of IV access)1600 (Due)2200 [...] 0916 (Given - Provider: Penny Brown, CALISTA) chlorhexidine (PERIDEX) 0.12 % oral solution 15 mL, Swish & Spit, 2 TIMES DAILY, First dose on Tue07/14/22 at 1530, Until Discontinued, ICU/Step Down 0900 (Given - Provider: Lauren Crawford RN)2100 (Given - Provider: Lemuel Gilbert, CALISTA) 08 (Given - Provider: Linh Fregoso RN)2042 (Given - Provider: Lola Wyatt RN) 0916 (Given - Provider: Penny Brown, CALISTA)2099 (Due) dexamethasone (DECADRON) 4 MG/ML injection (COMPLETED) 8 mg, Intravenous Push, EVERY 8 HOURS, 3 doses, First dose on Tue07/14/22 at 1530, Last dose on Christen 07/15/22 at 0900, ICU/Step Down 0109 (Given - [...] RN)2123 (Given - Provider: Lemuel Gilbert RN) 08 (Given - Provider: Linh Fregoso RN)2045 (Hold/Not Given - Provider: Lola Wyatt RN - Reason: Patient refused) 0900 (Hold/Not Given - Provider: Penny Brown RN - Reason: Patient refused)2100 (Due) enoxaparin (LOVENOX) 40 MG/0.4ML injection 40 [...] Lam RN) 0409 (Given - Provider: Lola Wyatt RN)0542 (Hold/Not Given - Provider: Lola Wyatt RN - Reason: Previously Administered) metformin (GLUCOPHAGE) tablet 500 mg, Oral, DAILY, First dose on Tue07/14/22 at 1800, Until Discontinued, ICU/Step Down 0801 (Given - Provider: Lauren Crawford RN) 0812 (Given - Provider: Linh Fregoso RN) 0916 (Given - Provider: Penny Brown, RN) OLANZapine (ZyPREXA ZYDIS) disintegrating tablet 10 mg, Oral, AT BEDTIME, First dose on Christen 07/15/22 at 2200, Until Discontinued 2124 (Given - Provider: Lemuel Gilbert, RN) 2044 (Given - Provider: Lola Wyatt, CALISTA)2100 (Hold/Not Given - Provider: Lola Wyatt RN - Reason: Previously Administered) 2200 (Due) oxybutynin (DITROPAN) 5 MG tablet 5 mg, Oral, 3 TIMES DAILY, First dose on Tue07/14/22 at 1800, Until Discontinued, ICU/Step Down 0625 (Given - Provider: Alon Cotton RN)1315 (Given - Provider: Lauren Crawford RN)2124 (Given - Provider: Lemuel Gilbert, CALISTA) 0655 (Given - Provider: Donya Lam RN)1358 (Given - Provider: Cleo Tao RN)2046 (Hold/Not Given - Provider: Lola Wyatt RN [...] Alon Cotton RN)0800 (Given - Provider: Lauren Crawford, CALISTA) oxymetazoline (AFRIN) 0.05 % nasal solution 2 Martell, Nasal, EVERY 4 HOURS PRN, Starting on Tue07/14/22 at 1516, Until Discontinued, Nosebleed, ICU/Step Down sodium chloride (OCEAN) 0.65 % nasal spray 1 Martell, Nasal, EVERY 1 HOUR PRN, Starting on Tue07/14/22 at 1516, Until Discontinued, Congestion, Congestion due to dryness, ICU/Step Down Reason for Visit (unrecogniz ed section and content) Reason Comments New patient, to establish relationship S leep Apnea, Insp[employer] Specialty Diagnoses / Procedures Referred By Casper t Referred To Contact Ent-Otolaryngology Diagnoses Sleep apnea, unspecified type Wiley Mcmanus MD [address] [place] [address] [facility] [address] [place], [place] [id number] Referral ID Status Reason Start Date Expiration Date Visits Requested Visits Authorized [id number] Pending Review Transfer [facility] Care[facility] 01/01/2022 01/01/2023 3 3 Reason Onset [...] DIONNE (obstructive sleep apnea) Yi Moreno MD [address] [place] [address] Rikki Rodrigues DMD, MD [address] [place] [address] Referral ID Status Reason Start Date Expiration Date V isits Requested Visits Authorized [id number] Pending Review 05/26/2022 05/26/2023 3 3 Reason [...] SAGITTAL SPLIT, BILATERAL Rikki Rodrigues DMD, MD [address] [place] [address] [facility] [address] [place] [address] Phone: [phone] Referral ID Status Reason Start Date Expiration Date Visits Re quested Visits Authorized [id number] 3 3 Reason Comments Post Op Check [...] BE BASED ON THE PRIMARY CLINICAL RECORDS. [facility] ID [employer] [facility]. provides no warranty or guarantee of the accuracy or completeness of information in this document.
[2023-11-26 04:07] LABS: Age Gdln ACOG Testing Note (.); HPV Aptima Positive (Negative); HPV Genotype 16 Negative (Negative); HPV Genotype 18,45 Negative (Negative); IGP, Aptima HPV, rfx 16/18,45 Note (.)
== END 2023-11-22 19:48 | disposition home or self-care (01) ==
LOC: LAB 19:47
PROVIDERS: PCP Nurse Practitioner; Visit Provider Physician Assistant
DX: Z01.419 Encounter for gynecological examination (general) (routine) without abnormal findings (principal)
CPT/HCPCS: 87624; G0145

== ENCOUNTER 2023-12-06 15:24 | Outpatient (OUT) | payer OTHER, SELFPAY ==
--- NOTE | 2023-12-06 15:26 | MM_ITS ---
Patient Name: VEDA HEWITT MR#: [id number] : 1975 Exam Date: 12/06/2023 Ordering Doctor: EVERETTE Marc . RADIOLOGY REPORT PROCEDURE: MM TOMOSYNTHESIS SCREENING BI COMPARISON: MG MAMM SCREEN 3D LEEANNE CAD, 01/18/2023. MG MAMM SCREEN 3D LEEANNE CAD, 08/20/2021. INDICATIONS: screening Calculator Name NCI Breast Cancer Risk Assessment Tool 5 Year Breast Cancer Risk Not Reported. Lifetime Breast Cancer Risk Not Reported. Personal Breast Cancer No Personal Ovarian Cancer No Treatments None Family Cancers None LOCATION: [facility] BREAST COMPOSITION: Heterogeneously dense,which may obscure small masses. FINDINGS: DIAGNOSTIC CATEGORY 0--INCOMPLETE: NEED ADDITIONAL IMAGING EVALUATION. The breast is stable in overall fibroglandular configuration with nodular dense parenchymal pattern limited diagnostic sensitivity.Scattered benign-appearing calcifications are present. Scattered benign-appearing lymph nodes are present. RIGHT BREAST: No significant suspicious finding. LEFT BREAST: Increase in segmental microcalcifications lower inner quadrant, spot magnification recommended. RECOMMENDATIONS: ADDITIONAL MAMMOGRAPHIC VIEWS REQUIRED: LEFT BREAST - spot magnification both projections PLEASE NOTE: A NORMAL MAMMOGRAM DOES NOT EXCLUDE THE POSSIBILITY OF BREAST CANCER. A CLINICALLY SUSPICIOUS PALPABLE LUMP SHOULD BE BIOPSIED. Dictated by: Joe James MD on 12/06/2023 at 16:06 Approved by: Joe James MD on 12/06/2023 at 16:09
== END 2023-12-06 15:25 | disposition home or self-care (01) ==
LOC: MAMMO 15:24
PROVIDERS: PCP Nurse Practitioner; Visit Provider Physician Assistant
DX: Z12.31 Encounter for screening mammogram for malignant neoplasm of breast (principal); R92.0 Mammographic microcalcification found on diagnostic imaging of breast
CPT/HCPCS: 77063; 77067

== ENCOUNTER 2023-12-16 13:50 | Outpatient (OUT) | payer OTHER, SELFPAY ==
--- NOTE | 2023-12-16 13:56 | MM_ITS ---
Patient Name: VEDA HEWITT MR#: [id number] : 1975 Exam Date: 12/16/2023 Ordering Doctor: DR Oswald Harrington . RADIOLOGY REPORT PROCEDURE: MM DIAGNOSTIC MAMMO UNILAT LT COMPARISON: MM TOMOSYNTHESIS SCREENING BI, 12/06/2023. INDICATIONS: mammogram abnormal R92.8 Calculator Name NCI Breast Cancer Risk Assessment Tool 5 Year Breast Cancer Risk Not Reported. Lifetime Breast Cancer Risk Not Reported. Personal Breast Cancer No Personal Ovarian Cancer No Treatments None Family Cancers None LOCATION: [facility] BREAST COMPOSITION: The breasts are heterogeneously dense,which may obscure small masses. FINDINGS: DIAGNOSTIC CATEGORY 4--SUSPICIOUS FOR MALIGNANCY. FINDING DOES NOT EXHIBIT CLASSIC FINDINGS OF BREAST CANCER: Persistent area of density with microcalcifications in the lower inner quadrant of the right breast. Stereotactic biopsy is recommended for further evaluation RECOMMENDATIONS: STEREOTACTIC BREAST BIOPSY: LEFT BREAST PLEASE NOTE: A NORMAL MAMMOGRAM DOES NOT EXCLUDE THE POSSIBILITY OF BREAST CANCER. A CLINICALLY SUSPICIOUS PALPABLE LUMP SHOULD BE BIOPSIED. Dictated by: Joe James MD on 12/16/2023 at 14:31 Approved by: Joe James MD on 12/16/2023 at 14:33
== END 2023-12-16 13:51 | disposition home or self-care (01) ==
LOC: MAMMO 13:51
PROVIDERS: PCP Nurse Practitioner; Visit Provider Obstetrics & Gynecology
DX: R92.8 Other abnormal and inconclusive findings on diagnostic imaging of breast (principal); R92.0 Mammographic microcalcification found on diagnostic imaging of breast
CPT/HCPCS: 77065

== ENCOUNTER 2023-12-29 08:54 | Day surgery (SDC) | payer OTHER, SELFPAY ==
--- NOTE | 2023-12-29 08:58 | MM_ITS ---
Patient Name: VEDA HEWITT MR#: [id number] : 1975 Exam Date: 12/29/2023 Ordering Doctor: DR Oswald Harrington . RADIOLOGY REPORT PROCEDURE: MM STEREOTACTIC LOC LT COMPARISON: MM POST BIOPSY LT, 12/29/2023. MM DIAGNOSTIC MAMMO UNILAT LT, 12/16/2023. MM TOMOSYNTHESIS SCREENING BI, 12/06/2023. MG MAMM SCREEN 3D LEEANNE CAD, 01/18/2023. MG MAMM SCREEN 3D LEEANNE CAD, 08/20/2021. INDICATIONS: Left Breast Microcalcification DESCRIPTION: Following informed consent, digital stereotactic mammographic views were obtained to localize the lesion. Multiple vacuum-assisted core biopsies were obtained. Specimen images were obtained to confirm proper sampling. The location of the biopsy was then marked as indicated below. FINDINGS: RECOMMENDATIONS: SPECIMEN #, LOCATION: 12 core samples; posterior lower-inner quadrant. SPECIMEN IMAGE: Faint calcifications suspected within several cores. BIOPSY NEEDLE: 10 gauge Revolve(r) vacuum core biopsy needle. MARKER(S) PLACED: A single metallic marker was placed in the appropriate targeted location. MEDICATION: Buffered 1% lidocaine superficial;1% lidocaine with epinephrine deep. COMPLICATIONS: None. PATHOLOGY / LAB: Pending. CONCLUSION: 1. Technically successful biopsy of the breast lesion. 2. Pathology results are pending. An addendum will be added when pathology results are final. Dictated by: Chris Arnold M.D. on 12/29/2023 at 17:02 Approved by: Chris Arnold M.D. on 12/29/2023 at 17:07
--- NOTE | 2023-12-29 08:58 | MM_ITS ---
Patient Name: VEDA HEWITT MR#: [id number] : 1975 Exam Date: 12/29/2023 Ordering Doctor: DR Oswald Harrington . This report includes an Addendum and supersedes previous reports for this exam. RADIOLOGY REPORT PROCEDURE: MM POST BIOPSY LT COMPARISON: MM STEREOTACTIC LOC LT, 12/29/2023. MM DIAGNOSTIC MAMMO UNILAT LT, 12/16/2023. MM TOMOSYNTHESIS SCREENING BI, 12/06/2023. MG MAMM SCREEN 3D LEEANNE CAD, 01/18/2023. INDICATIONS: Left Breast Microcalcification BREAST COMPOSITION: The breasts are heterogeneously dense,which may obscure small masses. FINDINGS: Post-Procedure Mammogram for Marker Placement BIOPSY MARKER: A metallic marker has been placed in the targeted location within the posterior lower inner quadrant of the left breast. BREAST FINDINGS: Expected post biopsy findings. RECOMMENDATIONS: Dictated by: Chris Arnold M.D. on 12/29/2023 at 17:07 Approved by: Chris Arnold M.D. 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 THE FOLLOWING FINDING(S) HAS A HIGH PROBABILITY OF A BENIGN ETIOLOGY: RECOMMENDATIONS: SHORT TERM FOLLOW-UP DIAGNOSTIC MAMMOGRAM LEFT BREAST IN 6 MONTHS. Dictated by: Chris Arnold M.D. on 01/05/2024 at 15:13 Approved by: Chris Arnold M.D. on 01/05/2024 at 15:14
[2023-12-29 09:00] VITALS: BP 114/89; PULSE 77; O2SAT 96
[2023-12-29] MEDS: LIDOCAINE HCL 10 ML, SODIUM BICARBONATE 1 MEQ INJ (09:50)
[2023-12-29] MEDS: LIDOCAINE HCL/EPINEPHRINE 10 ML, SODIUM BICARBONATE 1 MEQ INJ (09:50)
[2023-12-29] MEDS: 0.9 % SODIUM CHLORIDE 250 ML IRR (10:00)
--- NOTE | 2023-12-29 11:13 | SUR.PREOP ---
12/16/23 Pt instructed on procedure, date, time, and prep.
== END 2023-12-29 10:30 | disposition home or self-care (01) ==
LOC: MAMMO 08:54
PROVIDERS: Radiology Diagnostic Radiology; PCP Nurse Practitioner; Visit Provider Obstetrics & Gynecology
DX: N60.22 Fibroadenosis of left breast (principal); R92.0 Mammographic microcalcification found on diagnostic imaging of breast
CPT/HCPCS: 19081; 77065; 88305

== ENCOUNTER 2024-02-09 09:41 | Outpatient (OUT) | payer OTHER, SELFPAY ==
[2024-02-09 10:58] LABS: Alanine Aminotransferase 25 U/L (14-59); Albumin Globulin Ratio 0.7; Albumin Level 3.1 g/dL (3.4-5.0); Alkaline Phosphatase 88 U/L (46-116); Anion Gap 10.8; Aspartate Amino Transferase 14 U/L (15-37); BUN Creatinine Ratio 18.1; Bilirubin Total 0.6 mg/dL (0.2-1.0); Calcium 8.6 mg/dL (8.5-10.1); Carbon Dioxide 30.4 mmol/L (21.0-32.0); Chloride 102 mmol/L (98-107); Chol HDL Ratio 2.8; Cholesterol 175 mg/dL (<=200); Estimated GFR (African America >60 (>=60); Estimated GFR (Non-African Ame >60 (>=60); Globulin 4.4 g/dL; Glucose 92 mg/dL (74-106); HDL Cholesterol 62 mg/dL (40-60); Potassium 4.2 mmol/L (3.5-5.1); Sodium 139 mmol/L (136-145); Thyroid Stimulating Hormone 0.142 uIU/mL (0.358-3.740); Total Protein 7.5 g/dL (6.4-8.2); Triglycerides 203 mg/dL (<=150); VLDL CHOLESTEROL 40.6 mg/dL
== END 2024-02-09 09:42 | disposition home or self-care (01) ==
LOC: LAB 09:45
PROVIDERS: PCP Nurse Practitioner; Visit Provider Nurse Practitioner
DX: E78.2 Mixed hyperlipidemia (principal); E06.9 Thyroiditis, unspecified
CPT/HCPCS: 36415; 80053; 80061; 84439; 84443

== ENCOUNTER 2024-02-25 09:46 | Outpatient (OUT) | payer OTHER, SELFPAY ==
--- OUTSIDE RECORDS SUMMARY | 2024-02-25 09:52 | XMS_ITS | CCD ---
Author Organization [facility] Care Team Providers Care Chestnut Tanner Name Role Phone Gena Kirby Unavailable Unavailable Unavailable Gena Kirby Primary Care Provider Unavailable Primary Care Provider Unavailabl e Yi Moreno MD Unavailable Wiley Mcmanus Unavailable Yi Moreno MD Unavailable Gena Kirby Primary Care Provider MD Wiley Mcmanus Attending Provider [phone] MD Yi Moreno Referring Provider Isabel Sin Unavailable Matthew RITCHIE MD, Justin Unavailable Gena Corrales Unavailable [phone] Gena Kirby Primary Care Provider Yi Moreno MD Unavailable Matthew RITCHIE MD, Justin Unavailable [phone] Gena Corrales Unavailable Gena Kirby Primary Care Provider MD Yi Moreno Referring Provider MD Wiley Mcmanus Attending Provider [phone] Gena Corrales Unavailable [phone] AICHHOLZ, MANAGER UNIVERSITY GENA Admitting Unavailable AICHHOLZ, MANAGER UNIVERSITY GENA Attending Unavailable AICHHOLZ, MANAGER UNIVERSITY GENA Consulting Unavailable AICHHOLZ, MANAGER UNIVERSITY GENA Primary Care Unavailable LEN ., DR ARIZA Attending Unavailable LEN ., DR ARIZA Consulting Unavailable LEN ., DR ARIZA Admitting Unavailable AICHHOLZ, MANAGER UNIVERSITY GENA Primary Care Unavailable WEST, DR WILEY Bryant Consulting Unavailable LEN ., DR ARIZA Attending Unavailable AICHHOLZ, MANAGER UNIVERSITY GENA Primary Care Unavailable LEN ., DR ARIZA Admitting Unavailable LEN ., DR ARIZA Consulting Unavailable AICHHOLZ, MANAGER UNIVERSITY GENA Primary Care Unavailable AICHHOLZ, MANAGER UNIVERSITY GENA Admitting Unavailable AICHHOLZ, MANAGER UNIVERSITY GENA Attending Unavailable AICHHOLZ, MANAGER UNIVERSITY GENA Consulting Unavailable LEN ., DR ARIZA Attending Unavailable AICHHOLZ, MANAGER UNIVERSITY GENA Primary Care Unavailable LEN ., DR RAIZA Admitting Unavailable LEN ., DR ARIZA Admitting Unavailable LEN ., DR ARIZA Attending Unavailable AICHHOLZ, MANAGER UNIVERSITY GENA Primary Care Unavailable LEN ., DR ARIZA Consulting Unavailable TATEONDINAT Consulting Unavailable MARGARITA II, BERTHA Consulting Unavailable LEN ., DR ARIZA Attending Unavailable AICHHOLZ, MANAGER UNIVERSITY GENA Primary Care Unavailable LEN ., DR ARIZA Admitting Unavailable LEN ., DR ARIZA Attending Unavailable AICHHOLZ, MANAGER UNIVERSITY GENA Primary Care Unavailable LEN ., DR ARIZA Admitting Unavailable LEN ., DR ARIZA Consulting Unavailable LEN ., DR ARIZA Admitting Unavailable LEN ., DR ARIZA Attending Unavailable AICHHOLZ, MANAGER UNIVERSITY GENA Primary Care Unavailable AICHHOLZ, MANAGER UNIVERSITY GENA Primary Care Unavailable AICHHOLZ, MANAGER UNIVERSITY GENA Attending Unavailable AICHHOLZ, MANAGER UNIVERSITY GENA Admitting Unavailable AICHHOLZ, MANAGER UNIVERSITY GENA Consulting Unavailable LEN ., DR ARIZA Attending Unavailable LEN ., DR ARIZA Consulting Unavailable AICHHOLZ, MANAGER UNIVERSITY GENA Primary Care Unavailable LEN ., DR ARIZA Admitting Unavailable ZIEBER, DR MADDI Wild Consulting Unavailable AICHHOLZ, MANAGER UNIVERSITY GENA Consulting Unavailable AICHHOLZ, MANAGER UNIVERSITY GENA Primary Care Unavailable AICHHOLZ, MANAGER UNIVERSITY GENA Attending Unavailable AICHHOLZ, MANAGER UNIVERSITY GENA Admitting Unavailable MISC, DR PETERS Admitting Unavailable MISC, DOCTOR Attending Unavailable MISC, DR PETERS Consulting Unavailable AICHHOLZ, MANAGER UNIVERSITY GENA Primary Care Unavailable AICHHOLZ, MANAGER UNIVERSITY GENA Primary Care Unavailable AICHHOLZ, MANAGER UNIVERSITY GENA Attending Unavailable AICHHOLZ, MANAGER UNIVERSITY GENA Admitting Unavailable AICHHOLZ, MANAGER UNIVERSITY GENA Consulting Unavailable PROVIDER, UNKNOWN Admitting Unavailable PROVIDER, UNKNOWN Attending Unavailable YI MORENO Referring Unavailabl e HERMES, YI Rebollar Admitting Unavailabl e YI MORENO [...] UNKNOWN Admitting Unavailable PROVIDER, UNKNOWN Attending Unavailable MELINDAMOSTEWART FreyIN Referring Unavailable YI MORENO Admitting Unavailabl e YI MORENO Attending Unavailabl e CLEMORIKKI Frey Admitting Unavailable CLEMOW, RIKKI Attending Unavailable PROVIDER, UNKNOWN Admitting Unavailable PROVIDER, UNKNOWN Attending Unavailable CLEMOW, RIKKI Referring Unavailable PROVIDER, UNKNOWN Admitting Unavailable PROVIDER, UNKNOWN Attending Unavailable PATIENT, SELF Referring Unavailable PROVIDER, UNKNOWN Admitting Unavailable PROVIDER, UNKNOWN Attending Unavailable PROVIDER, UNKNOWN Admitting Unavailable PROVIDER, UNKNOWN Attending Unavailable YI MORENO Referring Unavailabl e HERMES ERNST~[id number] Attending Unavailable HERMES ERNST~[id number], HERMES Beltran Admitting Unavailable YI SYKES DO Consulting Unavailable AA NO PCP, NO PCP Primary Care Unavailable YI SYKES DO Consulting Unavailable KofiLauritaa J Primary Care Provider MD Wiley Mcmanus Attending Provider Louise Johnson Unavailable Majo Lyman Unavailable Gena Kirby Primary Care Provider KATHRIN Lyman Attending Provider MD David Martinez Attending Provider [phone] Asaad, Imad Unavailable MD Wiley Mcmanus Attending Provider PARSELL, ELIN W Referring Unavailable AICHDIA GENA J. Primary Care Unavailable PARSELL, ELIN W Referring Unavailable AICHHOLThong, GENA J. Primary Care Unavailable PARSELL, ELIN W Referring Unavailable AICHHOLThong, GENA J. Primary Care Unavailable PARSELL, ELIN W Referring Unavailable AICHDIA GENA J. Primary Care Unavailable PARSELL, ELIN W Referring Unavailable AICHHOLThong, GENA J. Primary Care Unavailable Kofi Gena J Primary Care Provider [phone] Gena Kirby Primary Care Provider MD Wiley Mcmanus Attending Provider KATHRIN Lyman Attending Provider Gena Kirby Primary Care Provider MD Wiley cMmanus Attending Provider MAJO CATALAN Attending Unavailable RAMESH, LLOYD A Referring Unavailable RAMESH, LLOYD A Primary Care Unavailable MAJO CATALAN Attending Unavailable RAMESH, LLOYD A Referring Unavailable RAMESH, LLOYD A Primary Care Unavailable MAJO CATALAN Attending Unavailable RAMESH, LLOYD A Referring Unavailable RAMESH, LLOYD A Primary Care Unavailable MAJO CATALAN Attending Unavailable RAMESH, LLOYD A Referring Unavailable RAMESH, LLOYD A Primary Care Unavailable Oswald Harrington Attending Provider Gena Kirby Primary Care Unavailable Asaad, Imad Admitting Unavailable AsaadEmilad Attending Unavailable Gena Kirby Primary Care Unavailable Dara Harringtony Admitting Unavailable Dara Harringtony Attending Unavailable Gena Kirby Primary Care Unavailable Majo Lyman Admitting Unavailable Majo Lyman Attending Unavailable Gena Kirby Primary Care Unavailable Wiley Mcmanus Admitting Unavailable Wiley Mcmanus Attending Unavailable Gena Kirby Primary Care Unavailable Wiley Mcmanus Admitting Unavailable Wiley Mcmanus Attending Unavailable Gena Kirby Primary Care Unavailable Majo Lyman Admitting Unavailable Majo Lyman Attending Unavailable Wiley Mcmanus Admitting Unavailable Wiley Mcmanus Attending Unavailable Gena Kirby Primary Care Unavailable GENA KIRBY Attending Unavailable ROSHNI ANDERS Attending Unavailable GENA KIRBY Attending Unavailable Medications Current Medications Medication Drug [...] Start: 02-25-2022 take 2 tablets by mo [facility] every four hours as needed acetaminophen (TYLENOL) [...] 100 MG PO Daily October 14, 2023 1:00am Start: 07-14-2022 End: 07-15-2022 take 100 mg [...] 20 MG PO Daily October 14, 2023 1:00am Start: 07-14-2022 take 20 mg by mouth once daily 20 mg, Oral, DAILY, First dose on Tue07/14/22 at 1800, Until Discontinued, ICU/Step Down Start: 02-26-2022 atorvastatin ( LIPITOR) tablet Start: 01-01-2022 atorvastatin ( LIPITOR) 20 mg tablet Take 20 mg by mouth. 0 01/01/2022 Active calcium polycarbophil (8 sources) Calcium Polycarb [...] ICU/Step Down cholecalciferol 0.05 mg oral capsule (10 sources) Vitamin D Start: 10-14-2023 take 1 capsule by mouth once daily Cholecalciferol (Vitamin D3) Active 1 CAP PO Daily October 14, 2023 1:00am FreeTextSi capsule Orally Once a day; Note: Source Status: Taking; Provider: Yonathan Diaz ( ) take 1 capsule by [facility] every twenty-four hours Vitamin D3 50 MCG [...] Act alisia MG PO October 14, 2023 1:00am FreeTextSi tablet Orally twice as needed; Note: [...] Active dicyclomine hydrochloride 10 mg oral capsule (19 sources) Anticholinergic Start: 11-02-2023 End: 11-02-2023 take 10 mg by mouth four times daily Dicyclomine Active 10 MG PO Four times daily November 02, 2023 4:03pm Start: 10-14-2023 End: 11-02-2023 take 10 mg by mouth three times daily Dicyclomine Discontinued 10 MG PO Three times daily October 14, 2023 1:00am November 02, 2023 4:00pm Start: 08-12-2023 take 1 capsule by mo [facility] every eight hours Dicyclomine HCl [...] at 1530, Until Discontinued, ICU/Step Down Fiber (9 sources) Fiber Active 250 ml [...] 1 TAB PO Daily October 14, 2023 1:00am FreeTextSi tablet in the morning on an [...] a day Active Levothyroxine So dium Active loperamide hydrochloride 2 mg oral capsule (5 sources) Opioid Agonist Start: 12-06-2023 take 1 capsule by mouth every six hours Loperamide (Imodium A-D) 2 mg capsule Active 2 MG PO Every 6 hours 120 December 06, 2023 12:00am metFORMIN hydrochloride 500 mg oral tablet (20 sources) Biguanide Start: 10-14-2023 take 1 tablet by mouth once daily Metformin Active 1 TAB PO Daily October 14, 2023 1:00am FreeTextSi tablet with a meal Orally Once [...] by mouth once daily Multiple Vitamins-Minerals (THERAPEUTIC MULTIVITAMIN-UTILIZATION SPECIALIST ALS) tablet Take 1 tablet by mouth daily 0 Suspended take 1 tablet by mouth once gagan y Multiple Vitamins-Minerals (THERAPEUTIC MULTIVITAMIN-MINERALS) tablet Take 1 tablet by mouth daily 0 Active Multivitamin (One Daily Multivitamin) tablet (6 sources) Start: 10-14-2023 take 1 tablet by mouth once daily Multivitamin (One Daily Multivitamin) tablet Active 1 TAB PO Daily October 14, 2023 1:00am Start: 10-14-2023 take 1 tablet by rosy th once daily Multivitamin (One Daily Multivitamin) tablet Active 1 TAB PO Daily October 14, 2023 12:00am Multivitamin preparation (9 sources) Multivitamin Act alisia 1 ml naloxone hydrochloride 0.4 mg/ml injection (2 sources) Opioid Antagonist Start: 07-14-2022 naloxone (NARCAN) 0.4 MG/ML injection Start: 02-25-2022 0.4 mg, Intrav enous Push, PRN, Starting on Tue02/25/22 at 1423, [...] Start: 11-17-2021 take 1 tablet by rosy at bedtime OLANZapine (ZyPREXA) 5 MG tablet Take 5 mg by mouth at bedtime. 0 11/17/2021 Active take 2 tablets by mo [facility] at bedtime OLANZapine (ZyPREXA) 5 MG tablet Take 10 mg by mouth. hs 0 Active ondansetron 8 mg oral tablet (8 sources) Serotonin-3 Receptor Antagonist Start: 10-14-2023 take 8 mg by mouth every eight hours Ondansetron Hcl Active 8 MG PO Q8H 11 03October 14, 2023 1:00am Start: 07-14-2022 take 4 mg intravenou sly every six hours as needed 4 mg, [...] 2359, Nausea Initial antiemetic therapy. PACU only oxybutynin chloride 5 mg oral tablet (20 [...] PRN, Starting on Tue07/14/22 at 1516, Until Tue07/15/22 at 0828, Severe Pain (pain score 7,8,9,10), [...] chloride 20 meq extended release oral tablet (10 sources) Start: 10-14-2023 take 1 tablet by mouth once daily at mealtime Potassium Chloride Active 1 TAB PO Daily October 14, 2023 1:00am FreeTextSi tablet with food Orally Once a [...] Husk (Fiber (Psyllium Husk)) 0.4 gram capsule (6 sources) Start: 10-14-2023 Psyllium Husk (Fiber (Psyllium Husk)) 0.4 gram capsule Active 0.8 GM PO Twice daily October 14, 2023 1:00am Start: 10-14-2023 Psyllium Husk (Fiber (Psyllium Husk)) 0.4 gram capsule Active 0.8 GM PO Twice daily October 14, 2023 12:00am QUEtiapine 50 mg oral tablet (17 sources) Atypical Antipsychotic Start: 10-14-2023 Quetiap ine Active MG PO October 14, 2023 1:00am FreeTextSi tablet twice daily Orally twice daily; [...] Active saccharomyces boulardii 250 mg oral capsule (6 sources) Start: 10-14-2023 take 1 capsule by mouth once daily Saccharomyces Boulardii (Daily Probiotic (S. Boulardii)) 250 mg capsule Active 250 MG PO Daily October 14, 2023 1:00am sodium chloride 0.111 meq/ml nasal solution (15 sources) Start: 07-17-2022 take 1 spray(s) nasal route twice daily as needed for congestion sodium chloride ([place] Nasal [place]) 0.65 % nasal spray Use 1 [place] in each nostril as needed for Congestion (2 puffs nasally twice daily). 1 mL 3 07/17/2022 Active Start: 07-14-2022 1 [place], Nasal , EVERY 1 HOUR PRN, Starting [...] Capsule by mouth daily. 0 01/06/2022 Active 24 hr trospium chloride 60 mg extended release oral capsule (6 sources) Cholinergic Muscarinic Antagonist Start: 11-02-2023 Trospium Active 60 MG PO November 02, 2023 12:00am take 1 tablet by mouth twice alonso ly Trospium Chloride 20 MG TAKE 1 TABLET BY MOUTH TWICE DAILY Oral for 30 Days Active 24 hr venlafaxine 150 mg extended release oral capsule (20 sources) Serotonin and Norepinephrine Reuptake Inhibitor Start: 10-14-2023 take 1 capsule by mouth once daily at mealtime Venlafaxine (Effexor Xr) 150 mg capsule,extended release 24hr Active 1 CAP PO Daily October 14, 2023 1:00am FreeTextSi capsule with food Orally Once a day; Note: Source Status: Taking; Provider: Yonathan Diaz ( ) Start: 10-14-2023 take 1 capsule by mo [facility] once daily at mealtime Venlafaxine (Effexor Xr) 75 mg capsule,extended release 24hr Active 75 MG PO Daily October 14, 2023 1:00am FreeTextSi capsule with food Orally Once a [...] 11/30/2021 Active take 1 tablet by rosy once daily venlafaxine (EFFEXOR) 75 MG tablet [...] sources) Atypical Antipsychotic Abilify Not-Taking bifidobacterium animalis [id number] unt / lactobacillus acidophilus [id number] unt oral capsule (2 sources) Probiotic CAPS USE DIRECTED. Quantity: 0 Refills: 0 Ordered: 14-Oct-2021 DO Active bisacodyl 5 mg delayed release oral tablet (1 source) Stimulant Laxative Start: 07-14-2022 take 10 mg by mouth once daily as needed 10 mg, Oral, DAILY PRN, Starting on Tue07/14/22 at 1516, Until Discontinued, Constipation, ICU/Step Down budesonide 3 mg delayed release oral capsule (19 sources) Corticosteroid Start: 10-14-2023 End: 12-12-2023 take 3 tablets by mouth once daily Budesonide Discontinued 9 MG PO Once 90 November 02, 2023 4:02pm December 12, 2023 3:56pm 3 tablets once daily for 1 month. Start: 08-10-2023 Budesonide 3 M G 3 tabs daily for 60 days, 2 tabs daily for 14 days, 1 tab daily for 14 days Orally Once a day for 88 days Jul, Active calcium chloride 0.0014 meq/ ml / potassium chloride 0.004 meq/ml / sodium [...] source) Opioid Agonist Start: 01-05-2022 50 mcg, IntraV ENous, EVERY 5 MIN PRN, 2 doses, Starting on Tue01/05/22 at 1558, Until Discontinued, Pain Severe (7-10) For Phase I. If Phase II oral narcotics have been administered in the last 60 minutes, do not administer IV narcotics unless specifically approved by provider. PACU only 24 hr fesoterodine fumarate 8 mg extended release oral tablet (7 sources) Start: 10-14-2023 End: 11-02-2023 take 1 tablet by mouth once daily Fesoterodine Discontinued 8 MG PO Daily October 14, 2023 1:00am November 02, 2023 3:38pm FreeTextSig: TAKE 1 TABLET BY MOUTH DAILY Oral; Note: Source Status: Taking; Refills: 0; Qty: 30 Each; Provider: ELIO WORTHINGTON take 1 tablet by mouth once gagan y Fesoterodine Fumarate ER 8 MG TAKE 1 TABLET BY MOUTH DAILY Oral for 30 Days Active HYDROmorphone (DILAUDID) 0.2 MG/ML injection 0.2 mg (1 source) Start: 02-25-2022 End: 02-25-2022 HYDROmorphone (DILAUDID) 0.2 MG/ML injection 0.2 mg Ketorolac (9 sources) Nonsteroidal Anti-inflammatory Drug, Cyclooxygenase Inhibitor Start: 06-05-2015 Toradol per 15 mg 15 May, 2015 60 mg mesalamine (5 sources) Aminosalicylate Start: 12-12-2023 End: 12-12-2023 take 1 capsule by mouth once daily Mesalamine (Apriso) 0.375 gram capsule,extended release 24hr Discontinued 1.5 GM PO Daily December 12, 2023 12:00am December 12, 2023 4:08pm methylPREDNISolone (14 sources) Corticosteroid Start: 02-25-2022 End: [...] 0 Refills: 0 Ordered: 14-Oct-2021 DO Active oseltamivir 75 mg oral capsule (5 sources) Neuraminidase Inhibitor Start: 10-14-19 End: 11-02-19 take 1 capsule by mouth twice daily Oseltamivir (Tamiflu) 75 mg capsule Discontinued 75 MG PO Twice daily 10 October 14, 2023 1:00am November 02, 2023 3:39pm oxymetazoline hydrochloride 0.5 mg/ml nasal spray (1 source) Start: 07-14-20 2 [place], Nasal, EVERY 4 HOURS PRN, Starting on Tue07/14/22 at 1516, Until Discontinued, Nosebleed, ICU/Step Down potassium phosphate 15 mmol injection in D5W (1 source) Start: 07-16-20 End: 07-16-20 potassium phosphate 15 mmol injection in D5W predniSONE 20 mg oral tablet (5 sources) Start: 10-14-19 End: 11-02-19 take 20 mg by mouth twice daily Prednisone Discontinued 20 MG PO Twice daily 10 5 October 14, 2023 1:00am November 02, 2023 3:39pm sennosides, fpc 1.76 mg/ml oral solution (20 sources) Start: 02-26-20 take 8.8 mg by mouth at bedtime [...] [HYPERLIPIDEMIA UNSPECIFIED] Onset: 11-16-2022 Chronic Essential hypertension (13 sources) Benign essential hypertension; Translations: [Benign essential hypertension] Onset: 11-16-2022 11-02-2023 Chronic Genitourinary symptoms and ill-defined conditions (4 sources) Urge incontinence of urine; Translations: [Urge incontinence] Onset: 02-23-2022 02-23-2022 Chronic Immunizations and screening for infectious disease (13 sources) Patient encounter status; Translations: [Encounter for laboratory testing for severe acute respiratory syndrome coronavirus 2 (SARS-CoV-2)] Episodic Influenza (5 sources) Influenza due to other identified influenza virus with other respiratory manifestations; Translations: [Influenza with other respiratory manifestations] 10-14-2023 Episodic Menopausal disorders (1 source) Hormone replacement [...] Mood disorders; Translations: [DEPRESSION UNSPECIFIED] Onset: 11-16-2022 Noninfectious gastroenteritis (5 sources) Microscopic colitis; Translations: [Microscopic colitis, unspecified] 11-02-2023 Chronic Other aftercare (1 source) Other fpc (current) drug therapy; Translations: [OTH TOUCH UP EDGER CURRENT DRUG THERAPY] Onset: 11-16-2022 Episodic Other diseases of bladder and urethra (8 sources) Overactive bladder; Translations: [Overactive bladder] Onset: 02-23-2022 02-23-2022 Chronic Other diseases of bladder and urethra (1 source) Overactive bladder; Translations: [Overactive bladder] Onset: 02-23-2022 Chronic Other gastrointestinal disorders (9 sources) Diarrhea; Translations: [Diarrhea, unspecified] 11-02-2023 Episodic Other gastrointestinal disorders (6 sources) Diarrhea, unspecified; Translations: [Diarrhea] Episodic Other gastrointestinal disorders (11 sources) Fecal urgency; Translations: [Fecal urgency] Episodic Other gastrointestinal disorders (5 sources) Constipation alternates with diarrhea; Translations: [Other specified symptoms and signs involving the digestive system and abdomen] 12-12-2023 Episodic Other gastrointestinal disorders (5 sources) Abdominal bloating; Translations: [Abdominal distension (gaseous)] 12-12-2023 Episodic Other gastrointestinal disorders (5 sources) Urgent desire for stool; Translations: [Fecal urgency] 11-02-2023 Episodic Other gastrointestinal disorders (6 sources) Other specified symptoms and signs involving the digestive system and abdomen; Translations: [Other symptoms involving digestive system] Onset: 12-14-2023 12-12-2023 Episodic Other gastrointestinal disorders (5 sources) Abdominal distension (gaseous); Translations: [Flatulence, eructation, and gas pain] 12-12-2023 Episodic Other nervous system disorders (9 sources) [...] Translations: [Other insomnia] Chronic Residual codes; unclassified (6 sources) Obstructive sleep apnea (adult) (pediatric); Translations: [Obstructive sleep apnea (adult) (pediatric)] Onset: 11-09-2021 Resolved: 11-09-2021 Chronic Residual codes; unclassified (2 sources) Other insomnia; Translations: [Other insomnia] Onset: 11-09-2021 Resolved: 11-09-2021 Chronic Residual codes; unclassified (1 source) Sleep apnea, unspecified; Translations: [SLEEP APNEA UNSPECIFIED] Onset: 11-16-2022 Chronic Residual codes; unclassified (1 source) Obstructive sleep apnea (adult)(pediatric); Translations: [Obstructive sleep apnea (adult) (pediatric)] Onset: 09-20-2023 Chronic Residual codes; unclassified (2 sources) Edema [...] Comment on above: Quit 2019; Thyroid disorders (20 sources) Hypothyroidism; Translations: [Hypothyroidism, unspecified] Onset: 11-09-2021 Resolved: 11-09-2021 Chronic Thyroid disorders (5 sources) Disorder of thyroid gland; Translations: [Disorder of thyroid, unspecified] 11-02-2023 Episodic Unclassified (1 source) ENCOUNTER OPENED IN ERROR Unclassified (3 sources) CONTACT W/AND (SUSP) EXPOS COVID-19; Translations: [CONTACT W/AND (SUSP) EXPOS COVID-19] Onset: 12-04-2022 Unclassified (1 source) Diarrhea, unspecified; Translations: [Diarrhea, unspecified] Onset: 08-08-2023 Urinary tract infections (8 sources) Recurrent urinary [...] Test Name Value Interpretation Reference Range [facility] 12-29-2023 L Specimen: [id number] Received: 12/29/23 Status: MALCOLM Cardona Num: [id number] Spec Type: Surgical Subm Dr: Maddi Winston MD Tissues: A Breast Core CALCIFICATIONS (LT BREAST LIQ MICRO) Procedures: HE/12, Gross/Micro L4 Age/ Patient Sex Location Account Attending Physician Isabelle Hewitt I 48/F LABELL [id number] Oswald Len SPEC NUM: [id number] RECD: 12/29/23 STATUS: MALCOLM CARDONA NUM: [id number] ANGEL LUIS: 12/29/23 DR: Maddi Winston MD ENTERED: 12/29/[address]: Loc,Lab Oswald Harrington SPEC TYPE: Surgical DEPT: [facility] ORDERED: HE/12, Gross/Micro L4 ORDERED: HE/12, Gross/Micro L4 Pathological Diagnosis Classifications, left breast, core biopsy: Fibrocystic change with sclerosing adenosis and associated calcifications. Gross Description Received in formalin, labeled with the patient's name, date of and left breast LIQ microcalcification are 13 fibrofatty tissue cores ranging from 2.2 to 1.3 cm in length and up to 0.3 cm in diameter. Additionally there is a 1.1 x 0.5 x 0.2 cm aggregate of fibrofatty tissue fragments. The specimen is entirely submitted in A1?A6. Time of collection: 12/29/2023 at 0955 Time in formalin: 12/29/2023 at 1012 Time at gross: 12/29/2023 at 1508 Clinical history: Stereotactic breast BX CPT Codes 17498 Specimen: [id number] Received: 12/29/23 Status: MALCOLM Bergmanjosé luis Num: [id number] Spec Type: Surgical Subm Dr: Maddi Winston MD Tissues: A Breast Core CALCIFICATIONS (LT BREAST LIQ MICRO) Procedures: , Gross/Micro L4 Patient: Isabelle Hewitt I [id number] (Continued) Signed (signature on file) Jef Yanes MD 01/02/24 1630 Normal [facility] XR DIONNEBon 12-14-2023 [place] [address] XRay Report Signed Patient: Isabelle Hewitt I MR#: [id number] : 1975 Acct:[id number] Age/Sex: 48 / F ADM Date: 12/14/23 Loc: XD Room: Type: [facility] Attending Dr: Majo Lyman APRN Copies to: Majo Lyman APRN Ordering Provider: Majo Lyman APRN Date of Service: 12/14/23 XR/XR KUB: R19.8 - Other specified symptoms and signs involving the ... XR KUB 12/14/2023 4:15 PM SIGNS AND SYMPTOMS: Abdominal bloating, constipation, diarrhea PROTOCOL: Frontal radiographs of the abdomen and pelvis COMPARISON: 03/20/2018 FINDINGS: There is a 3 mm stone in the left renal collecting system. There is evidence of prior cholecystectomy. There is a nonobstructive bowel gas pattern. A small to moderate amount stool is noted in the colon. No radiographic evidence of fracture. Degenerative changes are noted in the lumbar spine, hips, and sacroiliac joints. XR/XR KUB IMPRESSION: No bowel obstruction or free air. A small to moderate amount of stool is noted within the colon. There is a 3 mm stone in the left renal collecting system. Impression dictated by: Yi Dahl M.D.12/14/2023 6:27 PM Dictation Location: [facility]-- Transcribed By: [facility] 12/14/231826 Dictated By: Yi Dahl II, MD 12/14/231825 Signed By: 12/16/23 0907 Tho [facility] XR KUB [facility] [place] [address] XRay Report Signed Patient: Isabelle Hewitt I MR#: [id number] : 1975 Acct:[id number] Age/Sex: 48 / F ADM Date: 12/14/23 Loc: Room: Type: [facility] Attending Dr: Wiley Mcmanus MD Copies to: MD Majo Colin APRN Ordering Provider: Majo Lyman APRN Date of Service: 12/14/23 XR/XR KUB: R19.8 - Other specified symptoms and signs involving the ... XR KUB 12/14/2023 4:15 PM SIGNS AND SYMPTOMS: Abdominal bloating, constipation, diarrhea PROTOCOL: Frontal radiographs of the abdomen and pelvis COMPARISON: 03/20/2018 FINDINGS: There is a 3 mm stone in the left renal collecting system. There is evidence of prior cholecystectomy. There is a nonobstructive bowel gas pattern. A small to moderate amount stool is noted in the colon. No radiographic evidence of fracture. Degenerative changes are noted in the lumbar spine, hips, and sacroiliac joints. XR/XR KUB IMPRESSION: No bowel obstruction or free air. A small to moderate amount of stool is noted within the colon. There is a 3 mm stone in the left renal collecting system. Impression dictated by: Yi Dahl M.D.12/14/2023 6:27 PM Dictation Location: RADIO-PC-13 Transcribed By: SANTA 12/14/231826 Dictated By: Yi Dahl II, MD 12/14/231825 Signed By: 12/14/231826 Normal [facility] - Microbiology an d Antimicrobial susceptibilityOrdered By: Louise Johnson on 10-14-2023 SARS-CoV-2 (COVID-19) RNA JOHNNIE+probe Ql (Unsp spec) [facility] CT UROGRAMon 10-01-2023 CT UROGRAM EXAMINATION: CT [...] fluid probably physiologic. No suspicious pelvic mass Peritoneum/Retroperitoneu m: No gross ascites or lymphadenopathy peer Bones/Soft Tissues: No acute abnormality of the bones. The superficial soft tissues show no acute process. IMPRESSION: 1. Decreased stone burden in the left kidney. Residual 5 mm calculus unchanged. 2. No right renal calculus. Ureters unremarkable in there is no bladder lesion. Interpreted by: Oliver Walker MD Signed by: Oliver Walker MD 10/01/23 Final result Normal [facility] Creatinine w/GFRon Creatinine [Mass/Vol] 0.7 mg/dL Normal 0.5-0.9 [facility] Comment on above: Performed By: #### C REG #### [facility] [address] [place] [address] [employer] W[employer] Operator: Wiley Wheatley MD GFR/1.73 sq M.predicted among non-blacks MDRD (S/P/Bld) [Vol rate/Area] mL/min/{1.73_m2} Normal >60 [facility] Comment on above: Result Comment: These results are not intended for use in patients <18 years of age. eGFR results are calculated without a race factor using the 2020 CKD-EPI equation. Careful clinical correlation is recommended, particularly when comparing to results calculated using previous equations. The CKD-EPI equation is less accurate in patients with extremes of muscle mass, extra-renal metabolism of creatine, excessive creatine ingestion, or following therapy that affects renal tubular secretion. Performed By: #### C REG #### [facility] [address] [place] [address] [employer] Washing Machine Operator: Wiley Wheatley MD Cult,Urineon 09-16-2023 Cult,Urine Specimen Description .CLEAN CATCH URINE Culture NO SIGNIFICANT GROWTH Report Status FINAL 09/16/2023 Normal [facility] Comment on above: Performed By: #### U RC #### [facility] [employer] [address] [place] [id number] [employer] Washing Machine Operator: Taiwo Wray MD [facility] [address] [place] [address] [employer]k Washing Machine Operator: Wiley Wheatley MD HCG ( test) IAkimberly d Ql (U)Ordered By: David Martinez on 08-08-2023 HCG ( test) Ql (U) Negative [facility] HCG,Urineon 08-08-2023 Beta HCG ( test) Ql (U) Negative Normal [facility] Comment on above: Result Comment: PERF ORMED BY: [address] [place] [id number] PATHOLOGIST FUR GLOSSER CHRIS GUERRERO M.D. Performed By: #### U HCG #### [place] [id number] [facility] 08-08-2023 L ----- Specimen: [id number] Received: 08/08/23 Status: MALCOLM Bergmanjosé luis Num: [id number] Spec Type: Surgical Subm Dr: David Martinez MD Tissues: A Colon Biopsy (RNDM COL BX) Procedures: Sally BEARD/Leroy L4 Age/ Patient Sex Location Account Attending Physician Isabelle Hewitt I 48/F [id number] David Martinez MD SPEC NUM: [id number] RECD: 08/08/23 STATUS: MALCOLM CARDONA NUM: [id number] ANGEL LUIS: 08/08/23 DR: David Martinez MD ENTERED: 08/08/[address] [facility] [address]: SPEC TYPE: Surgical DEPT: S ENTERED BY: [id number] RECV BY: [id number] ORDERED: HE/2, Gross/Micro L4 ORDERED: HE/2, Gross/Micro [...] microscopic examination confirms the diagnosis. CPT Codes 59213 Specimen: [id number] Received: 08/08/23 Status: MALCOLM Cardona Num: [id number] Spec Type: Surgical Subm Dr: David Martinez MD Tissues: A Colon Biopsy (RNDM COL BX) Procedures: HE/2, Gross/Micro L4 Patient: Isabelle Hewitt I [id number] (Continued) Signed (signature on file) Desmond Sarah MD 08/09/23 0957 Normal [facility] Amylaseon 06-30-2023 Amylase [Catalytic activity/Vol] 42 U/L Normal 29-103 [facility] Comment on above: Order Comment: Bry guy for Exam Diarrhea, unspecified type Performed By: #### C ALPROTECT, HIV SCREEN, CELIAC, ELASTASE STOOL #### [facility] , #### CRP, LIPASE, TSH3, ROSHNI, ESR #### [address] Amylase [Enzymatic activity/ volume] in Serum or PlasmaOrdered By: Majo Lyman on 06-30-2023 Amylase [Catalytic activity/Vol] 42 U/L 29-103 [facility] C reactive protein [Mass/vol ume] in Serum or PlasmaOrdered By: Majo Lyman on 06-30-2023 CRP [Mass/Vol] < 0.5 mg/dL 0.0-0.5 [facility] C-Reactive Proteinon 023 CRP [Mass/Vol] mg/L Normal 0.0-0.5 [facility] Comment on above: Order Comment: Reaso n for Exam Diarrhea, unspecified type Performed By: #### C ALPROTECT, HIV SCREEN, CELIAC, ELASTASE STOOL #### [facility] , #### CRP, LIPASE, TSH3, ROSHNI, ESR #### [facility] [address] Calprotectin [Mass/mass] in StoolOrdered By: Majo Lyman on 06-30-2023 Calprotectin (Stl) [Mass/Mass] 36 ug/g 0-120 [facility] Comment on above: Concentration Interp retation Follow-Up< 5 - 50 ug/g Normal None>50 -120 ug/g Borderline Re-evaluate in 4-6 weeks >120 ug/g Abnormal Repeat as clinically indicatedPerformed at: [facility] Lab[address] [id number] Director: Andrew Cameron MD, Phone: [phone] Calprotectin, Fecalon 2022 Calprotectin, Fecal 36 Normal 0-120 [facility] Comment on above: Order Comment: Reaso n for Exam Diarrhea, unspecified type Result Comment: Conc entration Interpretation Follow-Up < 5 - 50 ug/g Normal None >50 -120 ug/g Borderline Re-evaluate in 4-6 weeks >120 ug/g Abnormal Repeat as clinically indicated Performed at: [facility] Lab[address] [id number] [employer] Operator: Andrew Cameron MD, Phone: [phone] PERFORMED BY: [place] [address] PATHOLOGIST FUR GLOSSER CHRIS GUERRERO M.D. Performed By: #### C ALPROTECT, HIV SCREEN, CELIAC, ELASTASE STOOL ####[facility] ,#### CRP, LIPASE, TSH3, ROSHNI, ESR ####[facility] [address] Celiacon 06-30-2023 Deamidated Gliadin Abs, IgA 7 Normal 0-19 [facility] Comment on above: Order Comment: Reaso n for Exam Diarrhea, unspecified type Result Comment: Nega tive 0 - 19 Weak Positive 20 - 30 Moderate to Strong Positive >30 Performed By: #### C ALPROTECT, HIV SCREEN, CELIAC, ELASTASE STOOL #### [facility] , #### CRP, LIPASE, TSH3, ROSHNI, ESR #### [address] Deamidated Gliadin Abs, IgG 2 Normal 0-19 [facility] Comment on above: Order Comment: Reaso n for Exam Diarrhea, unspecified type Result Comment: Nega tive 0 - 19 Weak Positive 20 - 30 Moderate to Strong Positive >30 Performed By: #### C ALPROTECT, HIV SCREEN, CELIAC, ELASTASE STOOL #### [facility] , #### CRP, LIPASE, TSH3, ROSHNI, ESR #### [address] Endomysial Antibody IgA Negative Normal Negative [facility] Comment on above: Order Comment: Reaso n for Exam Diarrhea, unspecified type Performed By: #### C ALPROTECT, HIV SCREEN, CELIAC, ELASTASE STOOL #### [facility] , #### CRP, LIPASE, TSH3, ROSHNI, ESR #### [facility] [address] [place] [address] [place] Immunoglobulin A, Qn, Serum 505 mg/dL High 87-352 [facility] Comment on above: Order Comment: Reaso n for Exam Diarrhea, unspecified type Result Comment: Perf ormed at: - [facility] [address] [id number] [employer] Operator: Fran Guthrie PhD, Phone: [phone] Performed By: #### C ALPROTECT, HIV SCREEN, CELIAC, ELASTASE STOOL #### [facility] , #### CRP, LIPASE, TSH3, ROSHNI, ESR #### [address] T-Transglutaminase (tTG) IgA <2 Normal 0-3 [facility] Comment on above: Order Comment: Reaso n [...] #### CRP, LIPASE, TSH3, ROSHNI, ESR #### [facility] [address] T-Transglutaminase (tTG) IgG <2 Normal 0-5 [facility] Comment on above: Order Comment: Reaso n for Exam Diarrhea, unspecified type Result Comment: Nega tive 0 - 5 Weak Positive 6 - 9 Positive >9 Performed By: #### C ALPROTECT, HIV SCREEN, CELIAC, ELASTASE STOOL #### [facility] , #### CRP, LIPASE, TSH3, ROSHNI, ESR #### [facility] [address] Elastase.pancreatic [Mass/ma ss] in StoolOrdered By: Majo Lyman on 06-30-2023 Elastase.pancreatic (Stl) [Mass/Mass] 327 >200 [facility] Comment on above: Result Units: ug Nighat st./g Severe Pancreatic Insufficiency: <100 Moderate Pancreatic Insufficiency: 100 - 200 Normal: >200Performed at: [facility] Lab[address] [id number] Director: Andrew Cameron MD, Phone: [phone] Erythrocyte Sedimentation Ra zari 06-30-2023 ESR (Bld) [Velocity] 51 mm/h High 0-19 [facility] Comment on above: Order Comment: Reaso n for Exam Diarrhea, unspecified type Result Comment: PERF ORMED BY: [place] [address] PATHOLOGIST FUR GLOSSER CHRIS GUERRERO M.D. Performed By: #### C ALPROTECT, HIV SCREEN, CELIAC, ELASTASE STOOL #### [facility] , #### CRP, LIPASE, TSH3, ROSHNI, ESR #### [facility] [address] Erythrocyte sedimentation ra te by Photometric methodOrdered By: Majo Lyman on 06-30-2023 ESR Photometric method (Bld) [Velocity] 51 mm/hr 0-19 [facility] HIV 1/O/2 Antigen/Antibodyon 06-30-2023 HIV Screen 4th Generation Non-Reactive Normal Non Reactive [facility] Comment on above: Order Comment: Reaso n for Exam Diarrhea, unspecified type Result Comment: HIV Negative HIV-1/HIV-2 antibodies and HIV-1 p24 antigen were NOT detected. There is no laboratory evidence of HIV infection. Performed at: [employer] [place] [address] [place], [place] [id number] [employer] Washing Machine Operator: Fran Guthrie PhD, Phone: [phone] PERFORMED BY: [place] [address] PATHOLOGIST FUR GLOSSER CHRIS GUERRERO M.D. Performed By: #### C ALPROTECT, HIV SCREEN, CELIAC, ELASTASE STOOL ####[facility] ,#### CRP, LIPASE, TSH3, ROSHNI, ESR ####[facility] [address] HIV 1 and HIV-2 antibody ass ay with HIV-1 p24 antigen detectionOrdered By: Majo Lyman on 06-30-2023 HIV 1+2 Ab+HIV1 p24 Ag IA Ql Non-Reactive Non Reactive [facility] Comment on above: HIV NegativeHIV-1/HI V-2 antibodies and HIV-1 p24 antigen were NOTdetected. There is no laboratory evidence of HIV infection.Performed at: [employer] [address] [id number] Director: Fran Guthrie PhD, Phone: [phone] IgA [Mass/volume] in Serum o r PlasmaOrdered By: Majo Lyman on 06-30-2023 IgA [Mass/Vol] 505 mg/dL 87-352 [facility] Comment on above: Performed at: [employer] [address] [place], [place] [id number] Director: Fran Guthrie PhD, Phone: [phone] Lipaseon 06-30-2023 Lipase [Catalytic activity/Vol] 45.0 U/L Normal 11.0-82.0 [facility] Comment on above: Order Comment: Reaso n for Exam Diarrhea, unspecified type Performed By: #### C ALPROTECT, HIV SCREEN, CELIAC, ELASTASE STOOL #### [facility] , #### CRP, LIPASE, TSH3, ROSHNI, ESR #### [facility] [address] Lipase [Enzymatic activity/v olume] in Serum or PlasmaOrdered By: Majo Lyman on 06-30-2023 Lipase [Catalytic activity/Vol] 45.0 U/L 11.0-82.0 [facility] No Panel InformationOrdered By: Majo Lyman on 06-30-2023 Endomysial IgA Antibody Negative Negative [facility] Pancreatic Elastase, Stoolon 06-30-2023 Pancreatic Elastase, Stool 327 Normal >200 [facility] Comment on above: Order Comment: Reaso n for Exam Diarrhea, unspecified type Result Comment: Resu lt Units: ug Elast./g Severe Pancreatic Insufficiency: <100 Moderate Pancreatic Insufficiency: 100 - 200 Normal: >200 Performed at: [facility] [address] [id number] [employer] Operator: Andrew Cameron MD, Phone: [phone] PERFORMED BY: [facility] [address] [place] [address] PATHOLOGIST FUR GLOSSER CHRIS GUERRERO M.D. Performed By: #### C ALPROTECT, HIV SCREEN, CELIAC, ELASTASE STOOL ####[facility] ,#### CRP, LIPASE, TSH3, ROSHNI, ESR ####[facility] Serum gliadin peptide IgA an tibody assay (units/volume)Ordered By: Majo Lyman on 06-30-2023 Gliadin peptide IgA Qn (S) 7 units 0-19 [facility] Comment on above: Negative 0 - 19 Weak Positive 20 - 30 Moderate to Strong Positive >30 Serum gliadin peptide IgG an tibody assay (units/volume)Ordered By: Majo Lyman on 06-30-2023 Gliadin peptide IgG Qn (S) 2 units 0-19 [facility] Comment on above: Negative 0 - 19 Weak Positive 20 - 30 Moderate to Strong Positive >30 Serum tissue transglutaminas e (tTG) IgA antibody assay (units/volume)Ordered By: Majo Lyman on 06-30-2023 tTG IgA Qn (S) <2 U/mL 0-3 [facility] Comment on above: Negative 0 - 3 Weak Positive 4 - 10 Positive >10 Tissue Transglutaminase (tTG) has been identified as the endomysial antigen. Studies have demonstr- ated that endomysial IgA antibodies have over 99% specificity for gluten sensitive enteropathy. Serum tissue transglutaminas e (tTG) IgG antibody assay (units/volume)Ordered By: Majo Lyman on 06-30-2023 tTG IgG Qn (S) <2 U/mL 0-5 [facility] Comment on above: Negative 0 - 5 Weak Positive 6 - 9 Positive >9 Thyroid Stimulating Hormoneo n 06-30-2023 TSH Qn 0.57 m[IU]/L Normal 0.45-5.33 [facility] Comment on above: Order Comment: Reaso n for Exam Diarrhea, unspecified type Result Comment: PERF ORMED BY: [place] [address] PATHOLOGIST FUR GLOSSER CHRIS GUERRERO M.D. Performed By: #### C ALPROTECT, HIV SCREEN, CELIAC, ELASTASE STOOL #### [facility] , #### CRP, LIPASE, TSH3, ROSHNI, ESR #### [address] Thyrotropin [Units/volume] i n Serum or PlasmaOrdered By: Majo Lyman on 06-30-2023 TSH Qn 0.57 m[IU]/L 0.45-5.33 [facility] COVID + FLU Quick Testingon 06-07-2023 SARS-CoV-2 (COVID-19) RNA JOHNNIE+probe Ql (Unsp spec) Negative [employer] Other COVID + FLU Quick Testing Negative [employer] Other Quick Strepon 06-07-2023 S. pyogenes Org specific cx Ql (Throat) Negative [employer] Other Quick Strep [employer] Other XR ABDOMEN (KUB) (SINGLE AP VIEW)on [...] Perry Neely DO 03/12/23 Final result Normal [facility] Operative Reporton Operative Report [facility] [address] [address] [place] [id number] RECORD OF PROCEDURE PATIENT NAME: ISABELLE HEWITT DATE OF : 1975 MED REC #: [id number] PT LOCATION: OR PACU PT TYPE: OPS [...] room in stable condition. Yi Moreno MD /[id number] SSI File#: [id number] CC: Yi Moreno MD [facility] Telephone Encounteron 2022 Table Worker Packager Authentication Interface Message Text Situation: Patient called in Background: She says that she wanted to let provider know taht she would be following a different dr to his new practice for follow up treatment Assessment: NA Recommendation: Please advise and george patient if needed at Phone numbers Thank You Normal [employer] Table Worker Packager Authentication Interface Message Text Called and left voicemail for patient. Post-op Home Sleep Test reviewed from [facility], and there is considerable improvement. Pre-op AHI is 102, now down to 31. Pre-op O2 Carlene of 71%, now up to 82%. However, still with considerable desat time. There are notes from Dr. Moreno evaluating for [employer]SP[employer] I presume, but nothing since November. Asked patient for call back or [facility] Holdings[facility] message with if she has been able to continue with Dr. Moreno at his new office, or if she needs [facility] -montrell Normal [employer] MG MAMM SCREEN 3D LEEANNE CADon 01-18-2023 MG MAMM SCREEN 3D LEEANNE CAD Patient: ISABELLE HEWITT I. Exam Date: 01/18/2023 : 1975 Gender:F Ordering : BRIAN EGNA [employer]IR[employer]NA[employer] Admission #: [id number] Family : Order #: [id number] CLICK HERE TO VIEW EXAM RADIOLOGY REPORT [...] Treatments None Family Cancers None LOCATION: [facility] BREAST COMPOSITION: Heterogeneously dense,which may obscure small [...] Winston M.D. on 01/19/2023 at 13:37 Normal [facility] Cult,Urineon 12-14-2022 Cult,Urine Specimen Description .CLEAN CATCH URINE Culture NO GROWTH Report Status FINAL 12/14/2022 Normal [facility] Comment on above: Performed By: #### U #### [place] [id number] [employer] Operator: Taiwo Wray MD [facility] [address] [place], [place] [address] [employer] Washing Machine Operator: Wiley Wheatley MD Urinalysis w/ Microon 2022 Bacteria TRACE Abnormal NONE [facility] Comment on above: Performed By: #### U AMIC #### [facility] [address] [place], [place] [address] [employer] Washing Machine Operator: Wiley Wheatley MD Bilirubin, SemiQt,Ur Negative Normal NEG [facility] Comment on above: Performed By: #### U AMIC #### [facility] [address] [place] [id number] [employer] Washing Machine Operator: Wiley Wheatley MD Blood, Urine Negative Normal NEG [facility] Comment on above: Performed By: #### U AMIC #### [facility] [address] [place] [address] [place], [place] [id number] [employer] Washing Machine Operator: Wiley Wheatley MD Clarity (U) Clear Normal CLEAR [facility] Comment on above: Performed By: #### U AMIC #### [facility] [address] [place] [address] [place], [place] [id number] [employer] Washing Machine Operator: Wiley Wheatley MD Color (U) Yellow Normal YEL [facility] Comment on above: Performed By: #### U AMIC #### [facility] [address] [place], [place] [address] Silk Washing Machine Operator: Wiley Wheatley MD Epithelial cells LM Ql (Urine sed) 0 TO 2 Normal 0-25 [facility] Comment on above: Performed By: #### U AMIC #### [facility] [address] [place], [place] [id number] Sil[employer] Washing Machine Operator: Wiley Wheatley MD Glucose Ql (U) Negative Normal NEG [facility] Comment on above: Performed By: #### U AMIC #### [facility] [address] [place], [place] [address] [employer] Washing Machine Operator: Wiley Wheatley MD Ketones Ql (U) Negative Normal NEG [facility] Comment on above: Performed By: #### U AMIC #### [facility] [address] [place] [address] [place], [place] [id number] [employer] Washing Machine Operator: Wiley Wheatley MD Leukocyte esterase Test strip Ql (U) Negative Normal NEG [facility] Comment on above: Performed By: #### U AMIC #### [facility] [address] [place] [address] [place], [place] [id number] Sil[employer] Washing Machine Operator: Wiley Wheatley MD Nitrite,Ur Negative Normal NEG [facility] Comment on above: Performed By: #### U AMIC #### [facility] [address] [place] [address] Dr[place], [place] [address] Silk Washing Machine Operator: Wiley Wheatley MD PH,Ur 6.5 Normal 5.0-9.0 [facility] Comment on above: Performed By: #### U AMIC #### [facility] [address] [place] [address] [place] [place], [place] [id number] Silk Washing Machine Operator: Wiley Wheatley MD Protein Ql (U) Negative Normal NEG [facility] Comment on above: Performed By: #### U AMIC #### [facility] [address] [place] [address] [place], [place] [phone] Sil[employer] Washing Machine Operator: Wiley Wheatley MD Spec. [place],Ur <1.005 Low 1.010-1.02 0 [facility] Comment on above: Performed By: #### U AMIC #### [facility] [address] [place], [place] [id number] Silk Washing Machine Operator: Wiley Wheatley MD Urine RBC's None Normal 0-2 [facility] Comment on above: Performed By: #### U AMIC #### [facility] [address] [place], [place] [id number] Sil[employer] Washing Machine Operator: Wiley Wheatley MD Urine WBC's None Normal 0-5 [facility] Comment on above: Performed By: #### U AMIC #### [facility] [address] [place] [address] Silk Washing Machine Operator: Wiley Wheatley MD Urobilinogen,Ur Normal Normal NORM [facility] Comment on above: Performed By: #### U AMIC #### [facility] [address] [place] [address] Silk Washing Machine Operator: Wiley Wheatley MD Urinalysis with Microscopico n 12-13-2022 Bacteria, UA TRACE Abnormal None [facility] Bilirubin Urine Negative NEGATIVE [facility] Color, UA Yellow Yellow [facility] Epithelial Cells UA 0 TO 2 [facility] Glucose Auto test strip (U) [Mass/Vol] Negative NEGATIVE [facility] Interpretation and review of laboratory results Abnormal [facility] Ketones (U) [Mass/Vol] Negative NEGATIVE [facility] Leukocyte esterase Auto test strip Ql (U) Negative NEGATIVE [facility] Nitrite Auto test strip Ql (U) Negative NEGATIVE [facility] Protein (U) [Mass/Vol] 6.5 mg/dL 5.0 - 9.[address] [facility] [address] [facility] Protein (U) [Mass/Vol] Negative NEGATIVE [facility] RBC clumps Auto (Urine sed) [#/Area] None [facility] Specific [place], UA Low 1.010 - 1.020 [facility] Turbidity UA Clear Clear [facility] Urine Hgb Negative NEGATIVE [facility] Urobilinogen, Urine Normal Normal [facility] WBC, UA None [facility] Covid-19 PCR (CVDTBH)on SARS-CoV-2 (COVID-19) RNA JOHNNIE+probe Ql (Unsp spec) Not detected Normal NOT DETECTED [facility] Comment on above: Result Comment: This test is not yet approved or cleared by the [place] FDA. When there are no FDA-approved or cleared tests available, and other criteria are met, FDA can make tests available under an emergency access mechanism called an Emergency Use Authorization (EUA). The EUA for this test is supported by the Emergency Medicine Nurse Practitioner of Health and Human Service's (HHS's) declaration [...] SARS-CoV-2. Performed By: #### C VDTB #### [facility] [address] [place] [address] Dr. Stephanie Gibbs INFLUENZA A AND B AGon 11-26 [facility] SEE BELOW Normal [facility] Comment on above: Result Comment: Nega tive for Flu A protein angiten. Infection due to Flu A cannot be ruled out. Flu A angiten in the sample may be below the detection limit of the test. Performed By: #### I NFLUAB #### [facility] [address] [place] [address] Dr. [facility] SEE BELOW Normal [facility] Comment on above: Result Comment: Nega tive for Flu B protein antigen. Infection due to Flu B cannot be ruled out. Flu B antigen in the sample may be below the detection limit of the test. Performed By: #### I NFLUAB #### [facility] [address] [place] [address] Dr. Stephanie Gibbs INFLUENZA A AG Negative Normal NEGATIVE SEE COMMENT [facility] Comment on above: Performed By: #### I NFLUAB #### [facility] [address] [place] [address] Dr. Stephanie Gibbs INFLUENZA B AG Negative Normal NEGATIVE SEE COMMENT [facility] Comment on above: Performed By: #### I NFLUAB #### [facility] [address] [place] [address] Dr. Stephanie Gibbs SYMPTOMATIC COVID-19 ANTIGEN on 11-26-2022 EUA Statement SEE BELOW Normal [facility] Comment on above: Result Comment: This test [...] sooner. Performed By: #### C BC #### [facility] [address] [place] [address] Dr. Stephanie Gibbs SARS-CoV-2 (COVID-19) RNA JOHNNIE+probe Ql (Unsp spec) Negative Normal NEGATIVE [facility] Comment on above: Performed By: #### C BC #### [facility] [address] [place] [address] Dr. Stephanie Gibbs Telephone Encounteron 2022 Table Worker Packager Authentication Interface Message Text Requesting sleep study results and next steps. Please advise. Normal [facility] [employer] [facility] CBC AUTO DIFFon 11-12-2022 BASO # 0.1 103/ul Normal 0.0-0.1 [facility] Comment on above: Performed By: #### C BC #### [facility] [address] [place] [address] Dr. Stephanie Gibbs Basophils/100 WBC (Bld) 0.9 % Normal 0.2-2.0 [facility] Comment on above: Performed By: #### C BC #### [facility] [address] [place] [address] Dr. Stephanie Gibbs EO # 0.3 103/ul Normal 0.0-0.7 [facility] Comment on above: Performed By: #### C BC #### [facility] [address] [place] [address] Dr. Stephanie Gibbs Eosinophils/100 WBC (Bld) 4.7 % Normal 0.9-7.0 [facility] Comment on above: Performed By: #### C BC #### [facility] [address] [place] [address] Dr. Stephanie Gibbs Erythrocyte distribution width (RBC) [Ratio] 13.4 % Normal 11.0-15.0 [facility] Comment on above: Performed By: #### C BC #### [facility] [address] [place] [address] Dr. Stephanie Gibbs Hematocrit (Bld) [Volume fraction] 43.0 % Normal 36.0-48.0 [facility] Comment on above: Performed By: #### C BC #### [facility] [address] [place] [address] Dr. Stephanie Gibbs Hemoglobin (Bld) [Mass/Vol] 13.9 g/dL Normal 12.0-16.0 [facility] Comment on above: Performed By: #### C BC #### [facility] [address] [place] [address] Dr. Stephanie Gibbs IG # 0.01 10e3/ul Normal 0.00-0.03 [facility] Comment on above: Performed By: #### C BC #### [facility] [address] [place] [address] Dr. Stephanie Gibbs IG % 0.2 % Normal 0.0-0.5 [facility] Comment on above: Performed By: #### C BC #### [facility] [address] [place] [address] Dr. Stephanie Gibbs LYMPH # 2.3 103/ul Normal 1.2-3.8 [facility] Comment on above: Performed By: #### C BC #### [facility] [address] [place] [address] Dr. Stephanie Gibbs Lymphocytes/100 WBC (Bld) 36.6 % Normal 20.5-60.0 [facility] Comment on above: Performed By: #### C BC #### [facility] [address] [place] [address] Dr. Stephanie Gibbs MANUAL DIFF REQ NO Normal The [facility] Comment on above: Performed By: #### C BC #### [facility] [address] [place] [address] Dr. Stephanie Gibbs MCH (RBC) [Entitic mass] 29.7 pg Normal 26.7-34.0 [facility] Comment on above: Performed By: #### C BC #### [facility] [address] [place] [address] Dr. Stephanie Gibbs MCHC (RBC) [Mass/Vol] 32.3 g/dL Normal 29.9-35.2 [facility] Comment on above: Performed By: #### C BC #### [facility] [address] [place] [address] Dr. Stephanie Gibbs MCV (RBC) [Entitic vol] 91.9 fL Normal 81.0-99.0 [facility] Comment on above: Performed By: #### C BC #### [facility] [address] [place] [address] Dr. Stephanie Gibbs MONO # 0.5 103/ul Normal 0.3-0.8 [facility] Comment on above: Performed By: #### C BC #### [facility] [address] [place] [address] Dr. Stephanie Gibbs Monocytes/100 WBC (Bld) 8.3 % Normal 1.7-12.0 [facility] Comment on above: Performed By: #### C BC #### [facility] [address] [place] [address] Dr. Stephanie Gibbs NEUT # 3.2 103/ul Normal 1.4-6.5 [facility] Comment on above: Performed By: #### C BC #### [facility] [address] [place] [address] Dr. Stephanie Gibbs Neutrophils/100 WBC (Bld) 49.3 % Normal 43.0-75.0 [facility] Comment on above: Performed By: #### C BC #### [facility] [address] [place] [address] Dr. Stephanie Gibbs Platelet mean volume (Bld) [Entitic vol] 9.6 fL Normal 9.5-13.5 [facility] Comment on above: Performed By: #### C BC #### [facility] [address] [place] [address] Dr. Stephanie Gibbs PLT 250 103/ul Normal 150-450 [facility] Comment on above: Performed By: #### C BC #### [facility] [address] [place] [address] Dr. Stephanie Gibbs RBC 4.68 106/ul Normal 4.20-5.40 [facility] Comment on above: Performed By: #### C BC #### [facility] [address] [place] [address] Dr. Stephanie Gibbs WBC 6.4 103/ul Normal 4.0-11.0 [facility] Comment on above: Performed By: #### C BC #### [facility] [address] [place] [address] Dr. Stephanie Gibbs POINT OF CARE GLUCOSEon 10-21 Glucose [Mass/Vol] 97 mg/dL Normal 74-106 [facility] Comment on above: Performed By: #### P OCGLUC #### [facility] [address] [place] [address] Dr. Stephanie Gibbs PREG QUANT HCGon 11-12-2022 HCG QUANT 3 mIU/mL Normal [facility] Comment on above: Performed By: #### C BC #### [facility] [address] [place] [address] Dr. Stephanie Gibbs HCG RANGE SEE BELOW Normal [facility] Comment on above: Result Comment: 5-50 0.2-1 WEEK 50-500 1-2 WEEKS 100-5,000 2-3 WEEKS 500-10,000 3-4 WEEKS 1,000-50,000 4-5 WEEKS 10,000-100,000 5-6 WEEKS 15,000-200,000 6-8 WEEKS 10,000-100,000 2-3 MONTHS Performed By: #### C BC #### [facility] [address] [address] [address] Stephanie Gibbs Telephone Encounteron 2022 Table Worker Packager Authentication Interface Message Text Opened in error Normal [facility] [employer] [facility] Telephone Encounteron 2022 Table Worker Packager Authentication Interface Message Text Called patient and left voicemail. Advised that order for post-op PSG was faxed to [facility]. Left number to call to schedule study at her convenience ([phone]) Normal [facility] [employer] [facility] Progress Noteson 10-19-2022 Table Worker Packager Authentication Interface Message Text CC: sleep disordered [...] residual base of tongue obstruction. Normal [facility] [facility] Telephone Encounteron 2022 Table Worker Packager Authentication Interface Message Text PT calling back to check status of her FMLA paperwork from [employer]. I verified the correct fax # PT was using ( [phone]) I called over to PS dept , spoke to Seferino and he stated to have the PT to send it to the e-mail address [email or web address] PT will put ATTN: to Dr. Rodrigues. PT asks to have the paperwork filled out [place] as it it due soon ( PT didn't state a sate just that it was due) Please call PT once received Normal [facility] [employer] [facility] Telephone Encounteron 2022 Table Worker Packager Authentication Interface Message Text Patient calling in to see if her FMLA papers were received. Paperwork not scanned into the chart at this time. Please call the patient with confirmation of receipt of the FMLA papers at [phone]. Thank you! Normal [facility] [employer] [facility] Progress Noteson 09-08-2022 Table Worker Packager Authentication Interface Message Text Teaching Physician Note: [...] physician. Rikki Rodrigues DMD, MD Normal [facility] Telephone Encounteron 2022 Table Worker Packager Authentication Interface Message Text PT calling in stating she will be sending new FMLA forms via fax tomorrow due to the library being closed today. PT states Dr. Rodrigues has to fill that paperwork out just like he did for [employer]. PT states the company she works for switched [employer]. Please call PT if any questions. PT was just seen on 08/30/22 Normal [facility] [employer] [facility] FREE T4on 09-02-2022 Free T4 [Mass/Vol] 1.01 ng/dL Normal 0.76-1.46 [facility] Comment on above: Performed By: #### F T4 #### [facility] [address] [address] [address] Stephanie Gibbs TSHon 09-02-2022 TSH 0.745 uIU/mL Normal 0.358-3.74 0 [facility] Comment on above: Performed By: #### T SH #### [facility] [id number] Stephanie Gibbs Telephone Encounteron 2022 Table Worker Packager Authentication Interface Message Text PT calling in stating she had new FMLA forms to be faxed to Dr. Rodrigues. PT stated her job was going through [employer] and now is going through [employer]. saw PT for surgery on 07/14. PT had a televisit follow up on 07/23, but has cancelled every other follow up on 08/02 , 08/13 AND 08/30. PT stated Dr. Rodrigues had her off work since 07/14/22-08/30/2022. Please see multimedia artist- dates are different Please reach out to PT to discuss and when forms are ready to be filled out [phone] Normal [facility] [employer] [facility] Patient Instructionson 08-30 Table Worker Packager Authentication Interface Message Text With clean hands massage gums under your upper lip daily at night time No food restrictions Follow up with your dentist We will contact your Sleep Center in [place] to have a Sleep Study completed in 1.5 months. Normal [facility] [employer] [facility] Progress Noteson 08-30-2022 Table Worker Packager Authentication Interface Message Text [facility] [...] -Complete sleep study with Dr. Mcmanus in [place], [place] in 1.5 months -Follow up with patient's general dentist, Sinan Jones DDS for denture adjustment Follow-Up: After new sleep study Follow up sooner with new or worsening symptoms. Sinan Jones DDS [address] [address] [address] [facility] [place] [address] Wiley Mcmanus MD [facility] [address] [place] [id number] Seferino Vaz DMD OMFS Resident Normal [facility] Urinalysis with Microscopico n 08-12-2022 Bacteria, UA 2+ Abnormal None [facility] Bilirubin Urine Negative NEGATIVE [facility] Color, UA Yellow Yellow [facility] Epithelial Cells UA 0 TO 2 [facility] Glucose, Ur Negative NEGATIVE [facility] Interpretation and review of laboratory results Abnormal [facility] Ketones Ql (U) Negative NEGATIVE [facility] Leukocyte esterase Test strip Ql (U) SMALL Abnormal NEGATIVE [facility] Nitrite, Urine Negative NEGATIVE [facility] pH, UA 6.5 5.0 - 9.0 [facility] Protein, UA 1+ Abnormal NEGATIVE [facility] RBC, UA 0 TO 2 [facility] Specific [place], UA High 1.010 - 1.020 [facility] Turbidity UA Cloudy Abnormal Clear [facility] Urine Hgb 1+ Abnormal NEGATIVE [facility] Urobilinogen, Urine Normal Normal [facility] WBC, UA 50 TO 100 [facility] Telephone Encounteron 2021 Table Worker Packager Authentication Interface Message Text Called the patient twice this week to remind her regarding the follow up this Tuesday (08/13/22) and to offer to follow up sooner if she prefers. Patient did not answer. Message was left. Also attempted to call the alternative work number listed. Was unable to reach the patient at this number. Jerel Villegas DDS, MD [facility]- PGY4 [phone] [facility] Telephone Encounteron 2021 Table Worker Packager Authentication Interface Message Text Called pt. No answer. LVM with callback instructions. Per Dr. Rodrigues, we will not write any work excuse notes or prescribe any pain meds until pt is seen in person for follow up. Oliver Rogers, CHAU Normal [facility] Table Worker Packager Authentication Interface Message Text Pt called because [...] options if that is the case. Email: [email or web address] Contact pt @[phone] for questions/concerns Normal [facility] [employer] [facility] Telephone Encounteron 2021 Table Worker Packager Authentication Interface Message Text Patient called in [...] Please call the patient to advise at [phone]. Thank you! Normal [facility] [employer] [facility] Telephone Encounteron 2021 Table Worker Packager Authentication Interface Message Text Spoke with patient and instructed her to come in earlier Tuesday afternoon, preferably between 1:00 and 2:00 pm. Also reminded her to bring dentures with her as we would like to assess her occlusion with dentures in place. Patient voiced understanding and agreed to arrive early for her appointment on Tuesday. Mikal Rodgers DMD therapist physical, PGY-3 Team Pager: [phone] Normal [facility] Telephone Encounteron 2021 Table Worker Packager Authentication Interface Message Text Patient called stating she needs a back to work slip. Requested a call back [phone]. Thank you! Normal [facility] [facility] Progress Noteson 07-23-2022 Table Worker Packager Authentication Interface Message Text [facility] [...] new or worsening symptoms. Mikal Rodgers DMD therapist physical, PGY-3 Team Pager: [phone] Normal [facility] [employer] [facility] Progress Noteson 07-19-2022 Table Worker Packager Authentication Interface Message Text Initial pre-surgical workup photos: Normal [facility] [employer] [facility] BASIC METABOLIC PANELon 06-23 Anion gap [Moles/Vol] 13 mmol/L Normal 10-20 [facility] [employer] [facility] Comment on above: Performed By: #### MILO Mattson CH8 #### [facility] [address] [place] [address], Calcium [Mass/Vol] 7.9 mg/dL Low 8.4-10.4 [facility] [employer] [facility] Comment on above: Performed By: #### MILO Mattson CH8 #### [facility] [address] [place] [address], Chloride [Moles/Vol] 105 mmol/L Normal 97-111 [facility] [employer] [facility] Comment on above: Performed By: #### MILO Mattson CH8 #### [facility] [address] [place] [address], CO2 [Moles/Vol] 30 mmol/L Normal 21-30 [facility] [employer] [facility] Comment on above: Performed By: #### MILO Mattson CH8 #### [facility] [address] [place] [address], Creatinine [Mass/Vol] 0.84 mg/dL Normal 0.50-1.10 [facility] [employer] [facility] Comment on above: Performed By: #### MILO Mattson CH8 #### [facility] [address] [place] [address], ESTIMATED GFR (CKD-EPI) 86 mL/min/1.73sqm Normal >=60 [facility] Comment on above: Result Comment: 2020 [...] Inclusion of Race in Diagnosing Kidney Disease. Burmese Journal of Kidney Diseases 202;79(2):268-88.e1. 2. N Engl J Med 2020 Vol. 385 Issue 19 Pages [id number] Performed By: #### MILO Mattson CH8 #### [facility] [address] [place] [address], Glucose [Mass/Vol] 85 mg/dL Normal 68-[address] [facility] Comment on above: Performed By: #### MILO Mattson CH8 #### [facility] [address] [place] [address], Potassium [Moles/Vol] 3.7 mmol/L Normal 3.3-5.[address] [facility] Comment on above: Performed By: ###MILO Sierra CH8 #### [facility] [address] [place] [address], Sodium [Moles/Vol] 144 mmol/L Normal 135-148 [facility] Comment on above: Performed By: #### MILO Mattson CH8 #### [facility] [address] [place] [address], Urea nitrogen [Mass/Vol] 10 mg/dL Normal 8-[address] [facility] Comment on above: Performed By: #### MILO Mattson CH8 #### [facility] [address] [place] [address], Basic metabolic 2000 panelon 07-17-2022 Anion gap [Moles/Vol] 13 mmol/L 10 - 20 [facility] Calcium [Mass/Vol] 7.9 mg/dL Low 8.4 - 10. 4 mg/dL [facility] Chloride [Moles/Vol] 105 mmol/L 97 - 11 1 mmol/L [facility] CO2 [Moles/Vol] 30 mmol/L 21 - 30 mmol/L [facility] Creatinine [Mass/Vol] 0.84 mg/dL 0.50 - 1.10 mg/dL [facility] GFR/1.73 sq M.predicted MDRD (S/P/Bld) [Vol rate/Area] 86 mL/min/{1.73_m2} - PINF [facility] Comment on above: [...] Inclusion of Race in Diagnosing Kidney Disease. Burmese Journal of Kidney Diseases 2021;79(2):268-88.e1. 2. N Engl J Med 1 Vol. 385 Issue 19 Pages 0930-1657 Glucose [Mass/Vol] 85 mg/dL 68 - 110 [...] vol] 99 fL 80 - 100 [facility] Platelet mean volume (Bld) [Entitic vol] 8.0 fL 7.5 - 11.2 fL [facility] Platelets (Bld) [#/Vol] 214 10*3/uL 150 - 400 K/uL [facility] RBC (Bld) [#/Vol] 3.33 10*6/uL Low [facility] WBC (Bld) [#/Vol] 8.7 10*3/uL 4.5 - 11.5 K/uL [facility] COMPLETE BLOOD COUNTon 07-17 Erythrocyte distribution width (RBC) [Ratio] 13.7 % Normal 11.5-14.5 [facility] Comment on above: Performed By: #### MILO Mattson CH8 #### [facility] [address] [place] [address], Hematocrit (Bld) [Volume fraction] 32.8 % Low 36.0-46.0 [facility] Comment on above: Performed By: #### MILO Mattson CH8 #### [facility] [address] [place] [address], Hemoglobin (Bld) [Mass/Vol] 10.8 g/dL Low 12.0-15.0 [facility] Comment on above: Performed By: #### MILO Mattson CH8 #### [facility] [address] [place] [address], MCH (RBC) [Entitic mass] 32.5 pg Normal 26.0-34.0 [facility] Comment on above: Performed By: #### MILO Mattson CH8 #### [facility] [address] [place] [address], MCHC (RBC) [Mass/Vol] 32.9 g/dL Normal 32.0-35.9 [facility] Comment on above: Performed By: #### MILO Mattson CH8 #### [facility] [address] [place] [address], MCV (RBC) [Entitic vol] 99 fL Normal 80-100 [facility] Comment on above: Performed By: #### MILO Mattson CH8 #### [facility] [address] [place], [place], Platelet mean volume (Bld) [Entitic vol] 8.0 fL Normal 7.5-11.2 [facility] Comment on above: Performed By: #### MILO Mattson CH8 #### [facility] [address] [place], [place], Platelets (Bld) [#/Vol] 214 10*3/uL Normal 150-400 [facility] Comment on above: Performed By: #### MILO Mattson CH8 #### [facility] [address] [place], [place], RBC (Bld) [#/Vol] 3.33 10*6/uL Low 4.00-5.20 [facility] Comment on above: Performed By: #### MILO Mattson CH8 #### [facility] [address] [place], [place], WBC (Bld) [#/Vol] 8.7 10*3/uL Normal 4.5-11.5 [facility] Comment on above: Performed By: #### MILO Mattson CH8 #### [facility] [address] [place], [place], Care Plan Noteon 07-17-2022 Table Worker Packager Authentication Interface Message Text Problem: Discharge Planning: Goal: Discharge needs of the adult patient will be met 07/17/2022 1233 by Penny Brown, RN Outcome: Completed 07/17/2022 0743 by Penny Brown, RN Outcome: Progressing Discharge instructions provided to patient with paper scripts and tylenol MEDS to beds. No questions about instructions or medications at this time. IV removed and intact upon removal. Additional home care supplies provided. Patient discharged home with family member. Normal [facility] [employer] [facility] Table Worker Packager Authentication Interface Message Text Problem: Routine Care: [...] will be met Outcome: Progressing Normal [facility] GLUCOSE, FINGERSTICK-IN OFFI CEon 07-17-2022 Glucose [Mass/Vol] 81 mg/dL Normal 68-110 [facility] Comment on above: Performed By: #### 8 2948 ####NURSING GLUCOSE [id number] [place], [address] Glucose [Mass/Vol] 81 mg/dL 68 - 110 mg/dL [facility] Interpretation and review of laboratory results Normal [facility] Glucose [Mass/Vol] 93 mg/dL Normal 68-110 [facility] Comment on above: Performed By: #### MILO Mattson CH8 #### [facility] [address] [place], [place], Glucose [Mass/Vol] 93 mg/dL 68 - 110 mg/dL [facility] Interpretation and review of laboratory results Normal [facility] MAGNESIUMon 07-17-2022 Magnesium [Mass/Vol] 1.8 mg/dL Normal 1.6-2.8 [facility] Comment on above: Performed By: #### MILO Mtatson CH8 #### [facility] [address] [place], [place], Interpretation and review of laboratory results Normal [facility] Magnesium [Mass/Vol] 1.8 mg/dL 1.6 - 2 .8 mg/dL [facility] No Panel Informationon 07-17 Interpretation and review of laboratory results Abnormal [facility] PHOSPHORUSon 07-17-2022 Phosphate [Mass/Vol] 2.4 mg/dL Low 2.5-4.[address] [facility] Comment on above: Performed By: #### MILO Mattson CH8 #### [facility] [address] [place] [address], Phosphate [Mass/Vol] 2.4 mg/dL Low 2.5 - 4 .8 mg/dL [facility] Progress Noteson 07-17-2022 Table Worker Packager Authentication Interface Message Text Patient refused: Ditropan, and Hs Fingerstick. Normal [facility] BASIC METABOLIC PANELon 06-23 Anion gap [Moles/Vol] 14 mmol/L Normal 10-[address] [facility] Comment on above: Performed By: #### MILO Mattson CH8 #### [facility] [address] [place] [address], Calcium [Mass/Vol] 8.0 mg/dL Low 8.4-10.[address] [facility] Comment on above: Performed By: #### MILO Mattson CH8 #### [facility] [address] [place] [address], Chloride [Moles/Vol] 103 mmol/L Normal 97-[address] [facility] Comment on above: Performed By: #### MILO Mattson CH8 #### [facility] [address] [place] [address], CO2 [Moles/Vol] 31 mmol/L High 21-[address] [facility] [facility] Comment on above: Performed By: #### MILO Mattson CH8 #### [facility] [address] [place] [address], Creatinine [Mass/Vol] 0.79 mg/dL Normal 0.50-1.[address] Comment on above: Performed By: #### MILO Mattson CH8 #### [facility] [address] [place] [address], ESTIMATED GFR (CKD-EPI) 93 mL/min/1.73sqm Normal >=[address] [facility] Comment on above: Result Comment: 2020 [...] Inclusion of Race in Diagnosing Kidney Disease. Burmese Journal of Kidney Diseases 202;79(2):268-88.e1. 2. N Engl J Med 1 Vol. 385 Issue 19 Pages [phone] Performed By: #### MILO Mattson CH8 #### [facility] [address] [place], [place], Glucose [Mass/Vol] 96 mg/dL Normal 68-110 [facility] Comment on above: Performed By: #### MILO Mattson CH8 #### [facility] [address], [place], Potassium [Moles/Vol] 4.0 mmol/L Normal 3.3-5.3 [facility] Comment on above: Performed By: #### MILO Mattson CH8 #### [facility] [address], [place], Sodium [Moles/Vol] 144 mmol/L Normal 135-148 [facility] Comment on above: Performed By: #### MILO Mattson CH8 #### [facility] [address] [place], [place], Urea nitrogen [Mass/Vol] 16 mg/dL Normal 8-22 [facility] Comment on above: Performed By: #### MILO Mattson CH8 #### [facility] [address] [place], [place], Basic metabolic 2000 panelon 07-16-2022 Anion gap [Moles/Vol] 14 mmol/L 10 - 20 [facility] Calcium [Mass/Vol] 8.0 mg/dL Low 8.4 - 10. 4 mg/dL [facility] Chloride [Moles/Vol] 103 mmol/L 97 - 11 1 mmol/L [facility] CO2 [Moles/Vol] 31 mmol/L High 21 - 30 mmol/L [facility] Creatinine [Mass/Vol] 0.79 mg/dL 0.50 - 1.10 mg/dL [facility] GFR/1.73 sq M.predicted MDRD (S/P/Bld) [Vol rate/Area] 93 mL/min/{1.73_m2} - PINF [facility] Comment on above: 2020 CKD EPI [...] Inclusion of Race in Diagnosing Kidney Disease. Burmese Journal of Kidney Diseases 202;79(2):268-88.e1. 2. N Engl J Med 2020 Vol. 385 Issue 19 Pages [phone] Glucose [Mass/Vol] 96 mg/dL 68 - 110 mg/dL [facility] Potassium [Moles/Vol] 4.0 mmol/L 3.3 - 5.3 mmol/L [facility] Sodium [Moles/Vol] 144 mmol/L 135 - 148 mmol/L [facility] Urea nitrogen [Mass/Vol] 16 mg/dL 8 - 22 mg/dL [facility] CBC panel Auto (Bld)on 07-16 Erythrocyte distribution width (RBC) [Ratio] 13.5 % 11.5 - 14.5 % [facility] Hematocrit (Bld) [Volume fraction] 32.8 % Low 36.0 - 46.0 % [facility] Hemoglobin (Bld) [Mass/Vol] 10.9 g/dL Low 12.0 - 15.0 g/dL [facility] Interpretation and review of laboratory results Abnormal [facility] MCH (RBC) [Entitic mass] 32.7 pg 26.0 - 34.0 pg [facility] MCHC (RBC) [Mass/Vol] 33.2 g/dL 32.0 - 35.9 g/dL [facility] MCV (RBC) [Entitic vol] 98 fL 80 - 100 fL [facility] Platelet mean volume (Bld) [Entitic vol] 9.0 fL 7.5 - 11.2 fL [facility] Platelets (Bld) [#/Vol] 217 10*3/uL 150 - 400 K/uL [facility] RBC (Bld) [#/Vol] 3.33 10*6/uL Low [facility] WBC (Bld) [#/Vol] 16.3 10*3/uL High 4.5 - 11.5 K/uL [facility] COMPLETE BLOOD COUNTon 07-16 Erythrocyte distribution width (RBC) [Ratio] 13.5 % Normal 11.5-14.5 [facility] Comment on above: Performed By: #### C BC ####[facility] [id number] [place] [address], Hematocrit (Bld) [Volume fraction] 32.8 % Low 36.0-46.0 [facility] Comment on above: Performed By: #### C BC ####[facility] [id number] [place] [address], Hemoglobin (Bld) [Mass/Vol] 10.9 g/dL Low 12.0-15.0 [facility] Comment on above: Performed By: #### C BC ####[facility] [id number] [place] [address], MCH (RBC) [Entitic mass] 32.7 pg Normal 26.0-34.0 [facility] Comment on above: Performed By: #### C BC ####[facility] [id number] [place] [address], MCHC (RBC) [Mass/Vol] 33.2 g/dL Normal 32.0-35.9 [facility] Comment on above: Performed By: #### C BC ####[facility] [id number] [place] [address], MCV (RBC) [Entitic vol] 98 fL Normal 80-100 [facility] Comment on above: Performed By: #### C BC ####[facility] [id number] [place] [address], Platelet mean volume (Bld) [Entitic vol] 9.0 fL Normal 7.5-11.2 [facility] Comment on above: Performed By: #### C BC ####[facility] [id number] [place], [place], Platelets (Bld) [#/Vol] 217 10*3/uL Normal 150-[address] [facility] Comment on above: Performed By: #### C BC ####[facility] [id number] [place], [place], RBC (Bld) [#/Vol] 3.33 10*6/uL Low 4.00-5.20 [facility] Comment on above: Performed By: #### C BC ####[facility] [id number] [place], [place], WBC (Bld) [#/Vol] 16.3 10*3/uL High 4.5-11.5 [facility] Comment on above: Performed By: #### C BC ####[facility] [id number] [place], [place], GLUCOSE, FINGERSTICK-IN OFFI CEon 07-16-2022 Glucose [Mass/Vol] 89 mg/dL Normal 68-110 [facility] Comment on above: Performed By: #### MILO Mattson CH8 #### [facility] [address] [place], [place], Glucose [Mass/Vol] 89 mg/dL 68 - 110 mg/dL [facility] Interpretation and review of laboratory results Normal [facility] Glucose [Mass/Vol] 160 mg/dL High 68-110 [facility] Comment on above: Result Comment: Ricky lund RN, APN, MD Performed By: #### MILO Mattson CH8 #### [facility] [address] [place] [address], Glucose [Mass/Vol] 160 mg/dL High 68 - 110 mg/dL [facility] Comment on above: Notified CALISTA MORSE MD Interpretation and review of laboratory results [facility] Glucose [Mass/Vol] 136 mg/dL High 68-110 [facility] Comment on above: Result Comment: Ricky lund RN, APN, MD Performed By: #### MILO Mattson CH8 #### [facility] [address] [place] [address], Glucose [Mass/Vol] 136 mg/dL High 68 - 110 mg/dL [facility] Comment on above: Notified CALISTA MORSE MD Interpretation and review of laboratory results Abnormal [facility] MAGNESIUMon 07-16-2022 Magnesium [Mass/Vol] 2.0 mg/dL Normal 1.6-2.[address] [facility] Comment on above: Performed By: #### MILO Mattson CH8 #### [facility] [address] [place], [place], Interpretation and review of laboratory results Normal [facility] Magnesium [Mass/Vol] 2.0 mg/dL 1.6 - 2 .8 mg/dL [facility] No Panel Informationon 07-16 Interpretation and review of laboratory results Abnormal [facility] PHOSPHORUSon 07-16-2022 Phosphate [Mass/Vol] 2.1 mg/dL Low 2.5-4.[address] Comment on above: Performed By: #### MILO Mattson CH8 #### [facility] [address] [place], [place], Phosphate [Mass/Vol] 2.1 mg/dL Low 2.5 - 4 .8 mg/dL [facility] Progress Noteson 07-16-2022 Table Worker Packager Authentication Interface Message Text ----- GENERAL INFORMATION ---- SURGICAL ICU - STAFF NOTE Patient seen and examined on 07/16/2022 Patient Name: Isabelle Hewitt Admission Date: 07/14/2022 --- INTERVAL HISTORY/EVENTS - Background: Ms Hewitt is a 47 year [...] OMFS, feel pt is ok for floor. PHYSICAL EXAM [...] Bedtime, Edita Meyer MD, 10 mg at 07/15/224 oxyCODONE (ROXICODONE) 5 mg/5 mL oral solution, [...] Daily, Oliver Rogers DMD, 5 mg at 07/16/22 0655 venlafaxine (EFFEXOR XR) 24 hour capsule, 75 mg, Oral, Daily, Oliver Rogers DMD, 75 mg at 07/16/22 0811 chlorhexidine (PERIDEX) 0.12 % oral solution, 15 mL, Swish AND Spit, 2x Daily, Sue, Oliver, DMD, 15 mL at 07/16/22 0811 famotidine (PEPCID) tablet, 20 mg, Oral, 2x Daily, Sue, Oliver, DMD, 20 mg at 07/16/22 0811 ibuprofen (MOTRIN) tablet, 600 mg, Oral, Q6H PRN, Sue, Oliver, DMD ondansetron (ZOFRAN) 4 MG/2ML injection, 4 mg, Intravenous Push, Q6H PRN, Sue, Oliver, DMD docusate sodium (COLACE) capsule, 100 mg, Oral, 2x Daily, Sue, Oliver, DMD, 100 mg at 07/16/22 0811 bisacodyl (DULCOLAX) 5 MG enteric coated tablet, 10 mg, Oral, Daily PRN, Sue, Oilver, DMD oxymetazoline (AFRIN) 0.05 % nasal solution, 2 [place], Nasal, Q4H PRN, Sue, Oliver, DMD sodium chloride (OCEAN) 0.65 % nasal spray, 1 [place], Nasal, Q1H PRN, Milton Rogersel, DMD naloxone (NARCAN) 0.4 MG/ML injection, 0.4 [...] 31 14 96 16 0.79 8.0 07/16/22400 2. (more content not included)... Normal [facility] [employer] [facility] Table Worker Packager Authentication Interface Message Text ----- Attestation signed by Rikki Rodrigues DMD, MD [...] the resident's note. Rikki Rodrigues DMD, MD ----- SURGERY DAILY PROGRESS NOTE Isabelle Hewitt [id number] Isabelle Hewitt is a 47yo F with [...] bisacodyl 10 mg Daily PRN oxymetazoline 2 [place] Q4H PRN sodium chloride 1 [place] Q1H PRN naloxone 0.4 mg PRN IV [...] hydration. Pt okay to be transferred to [facility]. Neuro: - Acetaminophen 650 mg Q4H scheduled - Ibuprofen 600 mg Q6H PRN mild pain - Oxycodone 5/10 mg Q4H PRN moderate/severe pain OMFS: - Peridex mouth rinses BID Cardiac: - Lipitor 20 mg daily Resp: - O2 as needed to maintain sats >92% - Humidified face tent - [place] nasal spray Q1H PRN - Afrin nasal [...] daily Dispo: - Okay to transfer to [facility] Oliver Rogers, DMD therapist physical, PGY-1 Team Pager: [phone] [facility] BASIC METABOLIC PANELon 11-2 Anion gap [Moles/Vol] 15 mmol/L Normal 10-[address] [facility] Comment on above: Performed By: #### MILO Mattson CH8 #### [facility] [address] [place], [place], Calcium [Mass/Vol] 8.0 mg/dL Low 8.4-10.[address] [facility] Comment on above: Performed By: #### MILO Mattson CH8 #### [facility] [address] [place], [place], Chloride [Moles/Vol] 102 mmol/L Normal 97-[address] [facility] [facility] Comment on above: Performed By: #### MILO Mattson CH8 #### [facility] [address] [place], [place], CO2 [Moles/Vol] 28 mmol/L Normal 21-[address] [facility] Comment on above: Performed By: #### MILO Mattson CH8 #### [facility] [address] [place], [place], Creatinine [Mass/Vol] 0.91 mg/dL Normal 0.50-1.10 [facility] [employer] [facility] Comment on above: Performed By: #### MILO Mattson CH8 #### [facility] [address] [place], [place], ESTIMATED GFR (CKD-EPI) 78 mL/min/1.73sqm Normal >=[address] [facility] Comment on above: Result Comment: 2020 [...] Inclusion of Race in Diagnosing Kidney Disease. Burmese Journal of Kidney Diseases 2021;79(2):268-88.e1. 2. N Engl J Med 2021 Vol. 385 Issue 19 Pages [phone] Performed By: #### MILO Mattson, RAQUEL8 #### [facility] [address], [place], Glucose [Mass/Vol] 147 mg/dL High 68-110 [facility] Comment on above: Performed By: #### MILO Mattson, RAQUEL8 #### [facility] [address], [place], Potassium [Moles/Vol] 4.3 mmol/L Normal 3.3-5.3 [facility] Comment on above: Performed By: #### MILO Mattson CH8 #### [facility] [address], [place], Sodium [Moles/Vol] 141 mmol/L Normal 135-148 [facility] Comment on above: Performed By: #### MILO Mattson CH8 #### [facility] [address] [place] [address], Urea nitrogen [Mass/Vol] 16 mg/dL Normal 8-22 [facility] Comment on above: Performed By: #### MILO Mattson CH8 #### [facility] [address] [place] [address], Basic metabolic 2000 panelon 07-15-2022 Anion gap [Moles/Vol] 15 mmol/L 10 - 20 [facility] Calcium [Mass/Vol] 8.0 mg/dL Low 8.4 - 10. 4 mg/dL [facility] Chloride [Moles/Vol] 102 mmol/L 97 - 11 1 mmol/L [facility] CO2 [Moles/Vol] 28 mmol/L 21 - 30 mmol/L [facility] Creatinine [Mass/Vol] 0.91 mg/dL 0.50 - 1.10 mg/dL [facility] GFR/1.73 sq M.predicted MDRD (S/P/Bld) [Vol rate/Area] 78 mL/min/{1.73_m2} - PINF [facility] Comment on above: 2020 CKD EPI Equatio [...] Inclusion of Race in Diagnosing Kidney Disease. [place]mese Journal of Kidney Diseases 202;79(2):268-88.e1. 2. N Engl J Med 1 Vol. 385 Issue 19 Pages [phone] Glucose [Mass/Vol] 147 mg/dL High 68 - [...] 11.5 g/dL Low 12.0 - 15.0 g/dL [facility] Interpretation and review of laboratory results Abnormal [facility] MCH (RBC) [Entitic mass] 32.3 pg 26.0 - 34.0 pg [facility] MCHC (RBC) [Mass/Vol] 33.4 g/dL 32.0 - 35.9 g/dL [facility] MCV (RBC) [Entitic vol] 97 fL 80 - 100 fL [facility] Platelet mean volume (Bld) [Entitic vol] 8.6 fL 7.5 - 11.2 fL [facility] Platelets (Bld) [#/Vol] 267 10*3/uL 150 - 400 K/uL [facility] RBC (Bld) [#/Vol] 3.55 10*6/uL Low [facility] WBC (Bld) [#/Vol] 18.2 10*3/uL High 4.5 - 11.5 K/uL [facility] COMPLETE BLOOD COUNTon 07-15 Erythrocyte distribution width (RBC) [Ratio] 13.6 % Normal 11.5-14.5 [facility] Comment on above: Performed By: #### MILO Mattson CH8 #### [facility] [address] [place] [address], Hematocrit (Bld) [Volume fraction] 34.4 % Low 36.0-46.[address] [facility] Comment on above: Performed By: #### MILO Mattson CH8 #### [facility] [address] [place] [address], Hemoglobin (Bld) [Mass/Vol] 11.5 g/dL Low 12.0-15.[address] [facility] Comment on above: Performed By: #### MILO Mattson CH8 #### [facility] [address] [place] [address], MCH (RBC) [Entitic mass] 32.3 pg Normal 26.0-34.0 [facility] Comment on above: Performed By: #### MILO Mattson CH8 #### [facility] [address] [place] [address], MCHC (RBC) [Mass/Vol] 33.4 g/dL Normal 32.0-35.9 [facility] Comment on above: Performed By: #### MILO Mattson CH8 #### [facility] [address] [place] [address], MCV (RBC) [Entitic vol] 97 fL Normal 80-100 [facility] Comment on above: Performed By: #### MILO Mattson CH8 #### [facility] [address] [place] [address], Platelet mean volume (Bld) [Entitic vol] 8.6 fL Normal 7.5-11.2 [facility] Comment on above: Performed By: ###MILO Sierra CH8 #### [facility] [address] [place] [address], Platelets (Bld) [#/Vol] 267 10*3/uL Normal 150-400 [facility] Comment on above: Performed By: #### M MILO Alan CH8 #### [facility] [address] [place], [place], RBC (Bld) [#/Vol] 3.55 10*6/uL Low 4.00-5.20 [facility] [employer] Comment on above: Performed By: #### MILO Mattson CH8 #### [facility] [address] [place], [place], WBC (Bld) [#/Vol] 18.2 10*3/uL High 4.5-11.5 [facility] Comment on above: Performed By: #### MILO Mattson CH8 #### [facility] [address] [place], [place], Care Plan Noteon 07-15-2022 Table Worker Packager Authentication Interface Message Text Problem: Routine Care: [...] will be met Outcome: Progressing Normal [facility] [employer] [facility] Table Worker Packager Authentication Interface Message Text Problem: Discharge Planning: [...] free of falls/injuries during shift. Normal [facility] GLUCOSE, FINGERSTICK-IN OFFI CEon 07-15-2022 Glucose [Mass/Vol] 155 mg/dL High 68-110 [facility] Comment on above: Result Comment: Ricky lund RN, APN, MD Performed By: #### M MILO Alan, 8 #### [facility] [address] [place], [address] Glucose [Mass/Vol] 155 mg/dL High 68 - 110 mg/dL [facility] Comment on above: Notified CALISTA MORSE MD Interpretation and review of laboratory results Abnormal [facility] Glucose [Mass/Vol] 137 mg/dL High 68-110 [facility] Comment on above: Performed By: #### 8 2948 ####[facility] GLUCOSE [id number] [place], [address] Glucose [Mass/Vol] 137 mg/dL High 68 - 110 mg/dL [facility] Interpretation and review of laboratory results Abnormal [facility] Progress Noteson 07-15-2022 Table Worker Packager Authentication Interface Message Text ----- Attestation signed by Rikki Rodrigues DMD, MD [...] the resident's note. Rikki Rodrigues DMD, MD ----- SURGERY DAILY PROGRESS NOTE Isabelle Hewitt [id number] Isabelle Hewitt is a 47yo F with [...] bisacodyl 10 mg Daily PRN oxymetazoline 2 [place] Q4H PRN sodium chloride 1 [place] Q1H PRN naloxone 0.4 mg PRN IV [...] daily -Lipitor 20mg daily Pulm: -Oxymetazoline 2 [place] q4h PRN -[place] 1 [place] q1h PRN -Face Tent on humidified air [...] Dispo: Stepdown status currently, RNF pending Page FS if any questions Seferino Vaz DMD FS Resident Team Pager [phone] Normal [facility] [employer] [facility] Table Worker Packager Authentication Interface Message Text ----- GENERAL INFORMATION ---- SURGICAL ICU - STAFF NOTE Patient seen and examined on 07/15/2022 Patient Name: Isabelle Hewitt Admission Date: 07/14/2022 --- INTERVAL HISTORY/EVENTS - Background: Ms Hewitt is a 47 year [...] oxymetazoline (AFRIN) 0.05 % nasal solution, 2 [place], Nasal, Q4H PRN, Oliver Rogers, CHAU sodium chloride (OCEAN) 0.65 % nasal spray, 1 [place], Nasal, Q1H PRN, Oliver Rogers DMD enoxaparin [...] 102 28 15 147 16 0.91 8.0 07/14/2244 142 3.7 Arterial Blood Gases T Site Mode LPM FIO2 pH pCO2 pO2 Sat Base Ex HCO3- A-a 07/14/2244 24 07/14/2244 7.429 37.0 118 98.8 0.5 24 - (more content not included)... Normal [facility] [facility] Anesthesia Attestationon Table Worker Packager Authentication Interface Message Text Anesthesia Attestation ATTESTATION OF INFORMED CONSENT FOR ANESTHESIA Anesthesia options were discussed with the patient and/or legal sales solutions representative. The risks, benefits and alternatives were reviewed. Questions regarding anesthesia were answered. Patient and/or legal sales solutions representative knows such anesthetics and procedures may be performed by Resident physicians, Certified Anesthesiologist Assistants, or Certified Nurse Anesthetists under the supervision of a physician. The patient /or the patient's legal sales solutions representative agree with the plan for anesthesia. Normal [facility] Anesthesia Postprocedure Lauren patel 07-14-2022 Table Worker Packager Authentication Interface Message Text Anesthesia Postoperative Assessment: [...] EVENTS: No notable events documented. Normal [facility] [facility] Anesthesia Transfer Of Careo n 07-14-2022 Table Worker Packager Authentication Interface Message Text Patient taken to PACU. Patient was awake, comfortable and stable on arrival. Anesthesia Transfer of Care Note Past Medical History: Past Medical History: Diagnosis Date * DIONNE (obstructive sleep apnea) Sleep Apnea/Positive STOP-BANG: Yes Problem List: Patient Active Problem List: DIONNE (obstructive sleep apnea) [G47.33] Past Surgical History: Review of patient's past surgical history indicates: UVULOPALATOPHARYNGOPLASTY (02/25/2022) Procedure: UVULOPALATOPHARYNGOPLASTY ; Surgeon: Yi Moreno MD; Location: PERIOPERATIVE SERVICES; [...] was received. Zenia Centeno, CAA Normal [facility] BLOOD GAS, ARTERIALon 2021 CR DEBORAH 0.5 mmol/L Normal -2.0-2.[address] [facility] Comment on above: Performed By: #### C R LYTES, CR GLU, LACT, CR BGA, CR ICA, CR COOX #### [facility] [address] [place] [address], CR PCO2 37.0 mm Hg Normal 35.0-45.[address] [facility] Comment on above: Performed By: #### C R LYTES, CR GLU, LACT, CR BGA, CR ICA, CR COOX #### [facility] [address] [place] [address], CR PHA 7.429 Normal 7.35-7.[address] [facility] Comment on above: Performed By: #### C R LYTES, CR GLU, LACT, CR BGA, CR ICA, CR COOX #### [facility] [address] [place] [address], CR PO2 118 mm Hg High 80-[address] [facility] Comment on above: Performed By: #### C R LYTES, CR GLU, LACT, CR BGA, CR ICA, CR COOX #### [facility] [address] [place] [address], HCO3 (Bld) [Moles/Vol] 24 mmol/L Normal 22- e [facility] Comment on above: Performed By: #### C R LYTES, CR GLU, LACT, CR BGA, CR ICA, CR COOX #### [facility] [address], [place], Oxygen saturation in Blood 98.8 % Normal >=95.[address] [facility] Comment on above: Performed By: #### C R LYTES, CR GLU, LACT, CR BGA, CR ICA, CR COOX #### [facility] [address] [place], [place], BLOOD GAS, ARTERIALOrdered B y: Osmar Zamora on 07-14-2022 Base excess Calc (Bld) [Moles/Vol] 0.5 mmol/L -2.0 - 2.0 mmol/L [facility] CO2 (Bld) [Partial pressure] 37.0 mm[Hg] [facility] Oxygen (Bld) [Partial pressure] 118 mm[Hg] High [facility] pH (Bld) 7.429 [pH] 7.35 - 7.45 [facility] Blood Attestationon 07-14-20 Table Worker Packager Authentication Interface Message Text Blood Attestation ATTESTATION OF INFORMED CONSENT FOR BLOOD The transfusion of blood and/or blood components were discussed with the patient and/or legal sales solutions representative. The risks, benefits and alternatives were reviewed. Questions regarding blood transfusions were answered. The patient /or the patient's legal sales solutions representative agree with the plan for transfusion of blood and/or blood components. Normal [facility] Brief Operative Noteon 07-14 Table Worker Packager Authentication Interface Message Text Brief Operative Note MAIN OR 12 Isabelle Hewitt 47 year old female Surgical Contact Serial Number: [id number] Preoperative Diagnosis: DIONNE (obstructive sleep apnea) [G47.33] Postoperative Diagnosis: * DIONNE (obstructive sleep apnea) [G47.33] Procedures: Surgical CPTs Procedures RECONSTRUCTION MIDFACE, LEFORT I; 1 PIECE, W/O BONE GRAFT RECONSTRUCTION, MANDIBULAR RAMI AND /OR BODY, SAGITTAL SPLIT; W/INT RIGID FIXATION No data filed Surgeon(s): Surgeon(s): Rikki Rodrigues DMD, MD Staff: Scrub: Annelise Saeed RN; Babs Wells RN Copy Preparer Nurse: Stephanie Brannon RN; Babs Wells RN Link Trainer Maintenance Worker: Margot Ovalles DDS; Saleem Mi DMD Anesthesia: [...] DMD, MD 07/14/2022 12:58 PM Normal [facility] CALCIUM, IONIZEDon CR ICA 1.00 mmol/L Low 1.10-1.40 [facility] Comment on above: Performed By: #### C R LYTES, CR GLU, LACT, CR BGA, CR ICA, CR COOX #### [facility] [address] [place] [address], Calcium.ionized (Bld) [Moles/Vol] 1.00 mmol/L Low 1.10 - 1.40 mmol/L [facility] CO-OXIMETERon 07-14-2022 CARBOXYHEMOGLOBIN 1.5 % Normal <3.0 [facility] Comment on above: Performed By: #### C R LYTES, CR GLU, LACT, CR BGA, CR ICA, CR COOX #### [facility] [address] [place] [address], CR HBMET 0.8 % Normal <3.0 [facility] Comment on above: Performed By: #### C R LYTES, CR GLU, LACT, CR BGA, CR ICA, CR COOX #### [facility] [address] [place] [address], Hematocrit (Bld) [Volume fraction] 37.6 % Normal 36.0-46.0 [facility] Comment on above: Performed By: #### C R LYTES, CR GLU, LACT, CR BGA, CR ICA, CR COOX #### [facility] [address] [place] [address], Hemoglobin (Bld) [Mass/Vol] 12.2 g/dL Normal 12.0-16.0 [facility] Comment on above: Performed By: #### C R LYTES, CR GLU, LACT, CR BGA, CR ICA, CR COOX #### [facility] [address] [place] [address], OXYHEMOGLOBIN 96.5 % Normal 95.0-100.0 [facility] Comment on above: Performed By: #### C R LYTES, CR GLU, LACT, CR BGA, CR ICA, CR COOX #### [facility] [address] [place] [address], Carboxyhemoglobin (BldA) [Mass fraction] 1.5 % NINF - 3.0 % [facility] Hematocrit (BldA) [Volume fraction] 37.6 % 36.0 - 46.0 % [facility] Hemoglobin (Bld) [Mass/Vol] 12.2 g/dL 12.0 - 16.0 g/dL [facility] Methemoglobin (BldA) [Mass fraction] 0.8 % NINF - 3.0 % [facility] Oxyhemoglobin (BldA) [Mass fraction] 96.5 % 95.0 - 100.0 % [facility] 07-14-2022 Table Worker Packager Authentication Interface Message Text Surgical ICU H AND P Isabelle Hewitt [id number] HPI: Ms Hewitt is a 47 year [...] Service: Otolaryngology CHOLECYSTECTOMY UVULOPALATOPHARYNGOPLASTY N/A 02/25/2022 Procedure: UVULOPALATOPHARYNGOPLASTY ; Surgeon: Yi Moreno MD; Location: PERIOPERATIVE SERVICES; [...] capsule Take 150 mg by mouth daily. triamterene-hydrochloroth iazide (MAXZIDE) 37.5-25 MG tablet Take 1 Tablet [...] GI/Feeding -full liquid diet -maintain Mart overnight Endocrine/Renal/Electroly yasmin -continue home dose LT4 -maintenance IVF LR @75 ml/hr Disposition -potential floor (more content not included)... Normal [facility] [employer] [facility] ELECTROLYTESon 07-14-2022 Chloride [Moles/Vol] 107 mmol/L Normal 97-111 [facility] Comment on above: Performed By: #### C R LYTES, CR GLU, LACT, CR BGA, CR ICA, CR COOX #### S [facility] LABORAT[facility] [address] [place] [address], Potassium [Moles/Vol] 3.7 mmol/L Normal 3.3-5.[address] [facility] Comment on above: Performed By: #### C R LYTES, CR GLU, LACT, CR BGA, CR ICA, CR COOX #### S [facility]ORAT[facility] [address] [place] [address], Sodium [Moles/Vol] 142 mmol/L Normal 135-[address] [facility] Comment on above: Performed By: #### C R LYTES, CR GLU, LACT, CR BGA, CR ICA, CR COOX #### S [facility] LABORAT[facility] [address] [place] [address], Chloride [Moles/Vol] 107 mmol/L 97 - 11 1 mmol/L [facility] Potassium [Moles/Vol] 3.7 mmol/L 3.3 - 5.3 mmol/L [facility] Sodium [Moles/Vol] 142 mmol/L 135 - 148 mmol/L [facility], FINGERSTICK-IN OFFI CEon 07-14-2022 Glucose [Mass/Vol] 156 mg/dL High 68-110 The [facility] Comment on above: Performed By: #### 8 2948 ####NURSING GLUCOSE [id number] [place], [address] Glucose [Mass/Vol] 156 mg/dL High 68 - 110 mg/dL [facility] Interpretation and review of laboratory results Abnormal [facility] Glucose [Mass/Vol] 110 mg/dL Normal 68-110 [facility] Comment on above: Performed By: #### 8 2948 ####NURSING GLUCOSE [id number] [place], [address] Glucose [Mass/Vol] 110 mg/dL 68 - 110 mg/dL [facility] Interpretation and review of laboratory results Normal [facility] GLUCOSE, WHOLE BLOODon 07-14 CR GLU 93 mg/dL Normal 68-98 [facility] Comment on above: Performed By: #### C R LYTES, CR GLU, LACT, CR BGA, CR ICA, CR COOX ####[facility] [id number] [place], [place], Glucose [Mass/Vol] 93 mg/dL 68 - 98 mg/dL [facility] LACTIC ACIDon 07-14-2022 CR LACT 2.0 mmol/L Normal 0.5-2.0 [facility] Comment on above: Performed By: #### C R LYTES, CR GLU, LACT, CR BGA, CR ICA, CR COOX #### [facility] [address] [place], [place], Lactate [Moles/Vol] 2.0 mmol/L 0.5 - 2. 0 mmol/L [facility] Laboratory - Chemistry and C hemistry - challengeOrdered By: Osmar Zamora on 07-14-2022 HCO3 (Bld) [Moles/Vol] 24 mmol/L 22 - 28 mmol/L [facility] No Panel Informationon 07-14 Interpretation and review of laboratory results Normal [facility] No Panel InformationOrdered By: Osmar Zamora on 07-14-2022 Interpretation and review of laboratory results Abnormal [facility] OP Noteon 07-14-2022 Table Worker Packager Authentication Interface Message Text Name: ISABELLE HEWITT MR#: [id number] ENC#: [id number] Date of Procedure: 07/14/2022 ATTENDING SURGEON: Rikki [...] a combination of osteotomes and a Kaufman filter tip inspector. On both sides, the inferior alveolar nerve [...] anticipated 3 mm of anterior impaction accomplished. Beata prebent orthognathic plates were used at the [...] FINDINGS: IMPRESSION: Single view of the filter [place] with linear radiopaque foreign body compatible with [...] FINDINGS: IMPRESSION: Single view of the filter [place] with linear radiopaque foreign body compatible with retained needle. MACRO: None RADIOLOGY Jerel Guzman MD - 07/14/2022 EXAMINATION: XR SKULL PA+LATERAL 07/14/2022 10:15 AM CLINICAL HISTORY: Reason for Exam: retained object. ASSOCIATED DIAGNOSIS: ORDERING PROVIDER: CORRINE RODRIGUES TECHNOLOGISTS NOTE: Image of filter for retained surgical needle per Dr. Rodrigues. COMPARISON: None FINDINGS: IMPRESSION: Single view of the filter [place] with linear radiopaque foreign body compatible with retained needle. MACRO: None [facility] Rad[facility] Study observation (narrative) [facility] XR Skull PA and Right latera l and Left lateralOrdered By: Jerel Guzman on 07-14-2022 [employer] Work Phone: Anesthesia Preprocedure Eval wilfredon 07-13-2022 Table Worker Packager Authentication Interface Message Text ASA: 2 No [...] - negative ROS Endo - negative ROS precision millwright Comment: LMP June 2021 Neuro/Psych - negative [...] Rooms; Service: Otolaryngology No date: CHOLECYSTECTOMY 02/25/2022: UVULOPALATOPHARYNGOPLASTY ; N/A Comment: Procedure: UVULOPALATOPHARYNGOPLASTY ; Surgeon: Yi Moreno MD; Location: PERIOPERATIVE SERVICES; [...] the history and physical examination. Normal [facility] [employer] Telephone Encounteron 2021 Table Worker Packager Authentication Interface Message Text Patient states she is faxing over paperwork for her time off of work d/t surgery tomorrow, 07/14. Patient would like a call when this is received if possible. Please call [phone]. Patient informed it might not be possible, just in case. Thank you! Normal [facility] Telephone Encounteron 2021 Table Worker Packager Authentication Interface Message Text 1451: Contacted pt and informed her to call the ENT office to schedule appt with Dr Moreno s/p jaw surgery in about 3 months due to healing time. Pt verbalized understanding. Latoya Manzo RN Normal [facility] Table Worker Packager Authentication Interface Message Text Dr. Joel, Patient calling stating that she is going forward with the jaw surgery that you recommended next 07/14/22. Patient would like to know what the next step is for after the surgery. PT: [phone] Thanks, D Normal [facility] ABO RH TYPEon 07-08-2022 ABO and Rh group Nom (Bld) Blood group B Rh(D) positive Normal [facility] [employer] Comment on above: Performed By: #### M MILO Alan CH8 #### [facility] [address] [place] [address], [id number] CBC panel Auto (Bld)on 07-08 Erythrocyte distribution width (RBC) [Ratio] 13.4 % 11.5 - 14.5 % [facility] Hematocrit (Bld) [Volume fraction] 42.2 % 36.0 - 46.0 % [facility] Hemoglobin (Bld) [Mass/Vol] 14.3 g/dL 12.0 - 15.0 g/dL [facility] Interpretation and review of laboratory results Normal [facility] MCH (RBC) [Entitic mass] 33.1 pg 26.0 - 34.0 pg [facility] MCHC (RBC) [Mass/Vol] 33.9 g/dL 32.0 - 35.9 g/dL [facility] MCV (RBC) [Entitic vol] 98 fL 80 - 100 fL [facility] Platelet mean volume (Bld) [Entitic vol] 8.8 fL 7.5 - 11.2 fL [facility] Platelets (Bld) [#/Vol] 274 10*3/uL 150 - 400 K/uL [facility] RBC (Bld) [#/Vol] 4.32 10*6/uL [facility] WBC (Bld) [#/Vol] 7.2 10*3/uL 4.5 - 11.5 K/uL [facility] COMPLETE BLOOD COUNTon 07-08 Erythrocyte distribution width (RBC) [Ratio] 13.4 % Normal 11.5-14.5 [facility] Comment on above: Performed By: #### C BC ####[facility] [id number] [place] [address], Hematocrit (Bld) [Volume fraction] 42.2 % Normal 36.0-46.0 [facility] Comment on above: Performed By: #### C BC ####[facility] [id number] [place] [address], Hemoglobin (Bld) [Mass/Vol] 14.3 g/dL Normal 12.0-15.0 [facility] Comment on above: Performed By: #### C BC ####[facility] [id number] [place] [address], MCH (RBC) [Entitic mass] 33.1 pg Normal 26.0-34.0 [facility] Comment on above: Performed By: #### C BC ####[facility] [id number] [place] [address], MCHC (RBC) [Mass/Vol] 33.9 g/dL Normal 32.0-35.9 [facility] Comment on above: Performed By: #### C BC ####S PATHOLOGY [id number] [place], [place], MCV (RBC) [Entitic vol] 98 fL Normal 80-100 The [facility] Comment on above: Performed By: #### C BC ####S PATHOLOGY [id number] [place], [place], Platelet mean volume (Bld) [Entitic vol] 8.8 fL Normal 7.5-11.2 [facility] Comment on above: Performed By: #### C BC ####[facility] [id number] [place], [place], Platelets (Bld) [#/Vol] 274 10*3/uL Normal 150-400 [facility] Comment on above: Performed By: #### C BC ####[facility] [id number] [place], [place], RBC (Bld) [#/Vol] 4.32 10*6/uL Normal 4.00-5.20 [facility] Comment on above: Performed By: #### C BC ####[facility] [id number] [place], [place], WBC (Bld) [#/Vol] 7.2 10*3/uL Normal 4.5-11.5 [facility] Comment on above: Performed By: #### C BC ####[facility] [id number] [place], [place], Laboratory - Blood bankon ABO and Rh group Nom (Bld) Blood group B Rh(D) positive [facility] No Panel Informationon 07-08 [facility] PSE Appt H AND Neftali Table Worker Packager Authentication Interface Message Text Patient was identified by name and date of . Edwina Daniel Bill of rights provided to patient Normal [facility] Patient Instructionson 07-08 Table Worker Packager Authentication Interface Message Text On the morning [...] for pain Please hold all Vitamin E, Hilliard 3, fish oil and herbal supplements for 1 week prior to surgery Normal [facility] [employer] [facility] TYPE AND SCREENon 07-08-2022 ABO and Rh group Nom (Bld) No Previous Results [facility] Comment on above: Patient does not req uire a 2nd sample drawn prior to surgery date of 07/14/2022___. Specimen meets Blood Bank's Pre-Surgical Protocol and is valid within 14 days from date of collection but will at midnight on the day of approved Surgery. Corrected Result : 07/08/2022 17:16:22 : By Transfusion Medicine Blood group antibody screen Ql Negative [facility] ABO and Rh group Nom (Bld) Blood group B Rh(D) positive Normal [facility] Comment on above: Performed By: #### MILO Mattson CH8 #### [facility] [address] [place] [address], ABO and Rh group Nom (Bld) No Previous Results Normal [facility] Comment on above: Result Comment: Deepa [...] MILO Mattson CH8 #### [facility] [address] [place] [address], ABSC INT Negative Normal [facility] Comment on above: Performed By: #### MILO Mattson CH8 #### [facility] [address] [place], [place], FREE T4on 07-07-2022 Free T4 [Mass/Vol] 0.83 ng/dL Normal 0.76-1.46 The [facility] Comment on above: Performed By: #### F T4 #### [facility] [address] [address] [address] Stephanie Gibbs TSHon 07-07-2022 TSH 3.715 uIU/mL Normal 0.358-3.74 0 [facility] Comment on above: Performed By: #### C #### [facility] [address] [address] [address] Stephanie iGbbs PSE Appt H AND Neftali Table Worker Packager Authentication Interface Message Text Error Normal [facility] [employer] [facility] Progress Noteson 07-02-2022 Table Worker Packager Authentication Interface Message Text Patient was seen in the OM clinic for alginate impressions of the edentulous maxilla and CBCT with denture in place. Seferino Vaz DMD OMFS Resident Normal [facility] [employer] Table Worker Packager Authentication Interface Message Text ORAL SURGERY CLINIC FOLLOW UP VISIT Patient was seen in the OMFS clinic for alginate impressions of the edentulous maxilla and CBCT with denture in place. Seferino Vaz DMD FS Resident ms. Normal [facility] [employer] Patient Instructionson 06-18 Table Worker Packager Authentication Interface Message Text Maxillomandibular advancement surgery, [...] daytime fatigue and inconsistent sleep. Normal [facility] [employer] Progress Noteson 06-18-2022 Table Worker Packager Authentication Interface Message Text OMFS PATIENT VISIT CHIEF COMPLAINT: sleep apnea HISTORY OF PRESENT ILLNESS: Patient presents for evaluation for surgical treatment of DIONNE. She is extremely symptomatic from her DIONNE, and suffers from CPAP intolerance. [place] sleepiness scale is 18. Patient is starting [...] capsule Take 150 mg by mouth daily. triamterene-hydrochloroth iazide (MAXZIDE) 37.5-25 MG tablet Take 1 Tablet [...] Service: Otolaryngology CHOLECYSTECTOMY UVULOPALATOPHARYNGOPLASTY N/A 02/25/2022 Procedure: UVULOPALATOPHARYNGOPLASTY ; Surgeon: Yi Moreno MD; Location: PERIOPERATIVE SERVICES; [...] norms. Retrognathic mandible. DIAGNOSIS: Obstructive sleep apnea [410304] TREATMENT: Exam, Panorex evaluated, and pictures/models taken [...] for (more content not included)... Normal [facility] [employer] [facility] Progress Noteson 06-15-2022 Table Worker Packager Authentication Interface Message Text CC: sleep disordered [...] nerve stimulator implanted following MMA Normal [facility] [employer] [facility] Anesthesia Attestationon Table Worker Packager Authentication Interface Message Text Anesthesia Attestation ATTESTATION OF INFORMED CONSENT FOR ANESTHESIA Anesthesia options were discussed with the patient and/or legal sales solutions representative. The risks, benefits and alternatives were reviewed. Questions regarding anesthesia were answered. Patient and/or legal sales solutions representative knows such anesthetics and procedures may be performed by Resident physicians, Certified Anesthesiologist Assistants, or Certified Nurse Anesthetists under the supervision of a physician. The patient /or the patient's legal sales solutions representative agree with the plan for anesthesia. Normal [facility] [employer] Anesthesia Postprocedure Lauren [email or web address] 06-03-2022 Table Worker Packager Authentication Interface Message Text Anesthesia Postoperative Assessment: [...] EVENTS: No notable events documented. Normal [facility] [employer] Anesthesia Preprocedure Eval uationon 06-03-2022 Table Worker Packager Authentication Interface Message Text ASA: 2 No [...] the history and physical examination. Normal [facility] [employer] [facility] Anesthesia Transfer Of Careo n 06-03-2022 Table Worker Packager Authentication Interface Message Text Patient taken to PACU. Patient was awake, comfortable and stable on arrival. Anesthesia Transfer of Care Note Past Medical History: Past Medical History: Diagnosis Date * DIONNE (obstructive sleep apnea) Sleep Apnea/Positive STOP-BANG: Yes Problem List: Patient Active Problem List: DIONNE (obstructive sleep apnea) [G47.33] Past Surgical History: Review of patient's past surgical history indicates: UVULOPALATOPHARYNGOPLASTY (02/25/2022) Procedure: UVULOPALATOPHARYNGOPLASTY ; Surgeon: Yi Moreno MD; Location: PERIOPERATIVE SERVICES; [...] Hand (Active) Site Assessment Dressing intact;WNL 06/03/22 131 Infusion Status Port #1 Infusing 06/03/221313 Airway [...] report was received. CINTIA Patel Normal [facility] [employer] [facility] Brief Operative Noteon 06-03 Table Worker Packager Authentication Interface Message Text Brief Operative Note PACU 19 Isabelle Hewitt 47 year old female Surgical Contact Serial Number: [id number] Preoperative Diagnosis: DIONNE (obstructive sleep apnea) [G47.33] [...] 06/03/22 1314 Infusion Status Port #1 Infusing 06/03/221313 Temporarily [...] Brown PA-C 06/03/2022 2:48 PM Normal [facility] [employer] [facility] OP Noteon 06-03-2022 Table Worker Packager Authentication Interface Message Text Name: ISABELLE HEWITT MR#: [id number] ENC#: [id number] Date of Procedure: 06/03/2022 ATTENDING SURGEON: Yi [...] she was taken back to recovery. MD ISABEL Rebollar/aMrii/ Dict: 06/03/2022 15:35:21 TRANS: 06/04/2022 07:02:00 JOB: [id number] DictJob#: [id number] Normal [facility] [employer] Progress Noteson 06-03-2022 Table Worker Packager Authentication Interface Message Text Discharge instructions reviewed in preop with patient. Patient verbalized understanding. No questions at this time. Normal [facility] [employer] [facility] Telephone Encounteron 2021 Table Worker Packager Authentication Interface Message Text Pre-op COVID test results received AND scanned into [employer]. Results NEGATIVE on 05/31/2022. Scheduled for DISE on 06/03/2022. Normal [facility] [employer] COVID Quick Testingon 2021 Result Negative [employer] Other PSE Call H AND Neftali Table Worker Packager Authentication Interface Message Text Telephone History Isabelle Hewitt, [id number] 05/28/2022 47 year old 190 lbs 5' [...] Laterality Date CHOLECYSTECTOMY UVULOPALATOPHARYNGOPLASTY N/A 02/25/2022 Procedure: UVULOPALATOPHARYNGOPLASTY ; Surgeon: Yi Moreno MD; Location: PERIOPERATIVE SERVICES; [...] capsul (more content not included)... Normal [facility] [employer] [facility] Telephone Encounteron 2021 Table Worker Packager Authentication Interface Message Text Patient is scheduled for DISE on 06/03/2022. Prefers to complete pre-op COVID testing closer to home. Instructed to obtain testing 48-72 hours prior to surgery and bring copy of results on day of surgery. PSE contact information provided. Normal [facility] [employer] [facility] Addendum Noteon 05-26-2022 Table Worker Packager Authentication Interface Message Text Addended by: YI MORENO on: 05/26/2022 05:25 PM Modules accepted: Orders Normal [facility] [employer] [facility] Telephone Encounteron 2021 Table Worker Packager Authentication Interface Message Text Arrangements to be made for pre-op COVID testing per ENT request. Normal [facility] [employer] [facility] MRI PITUITARY WO W CONon MRI [...] WILEY POE Date: 2022-05-18 13:10 Normal [facility] US PELVIS AND TRANSVAGon US PELVIS AND TRANSVAG EXAMINATION: US P DEANDRE AND TRANSVAG HISTORY: Irregular periods COMPARISON: Ultrasound [...] MADDI WINSTON Date: 2022-05-11 16:51 Normal [facility] ESTRADIOLon 05-08-2022 Estradiol 16.3 pg/mL Normal [facility] Comment on above: Result Comment: Adul t Female: Follicular phase 12.5 - 166.0 Ovulation phase 85.8 - 498.0 Luteal phase 43.8 - 211.0 Postmenopausal <6.0 - 54.7 1st trimester 215.0 - >4300.0 Salma ECLIA methodology Performed By: #### C BC #### [facility] [address] [address] [address] Stephanie Gibbs FSHon 05-08-2022 FSH 11.3 mIU/mL Normal [facility] Comment on above: Result Comment: Adul t Female: Follicular phase 3.5 - 12.5 Ovulation phase 4.7 - 21.5 Luteal phase 1.7 - 7.7 Postmenopausal 25.8 - 134.8 Performed By: #### C BC #### [facility] [address] [address] [address] Stephanie Gibbs LUTEINIZING HORMONE (LH)on 0 05-08-2022 LH 4.7 mIU/mL Normal [facility] Comment on above: Result Comment: Adul t Female: Follicular phase 2.4 - 12.6 Ovulation phase 14.0 - 95.6 Luteal phase 1.0 - 11.4 Postmenopausal 7.7 - 58.5 Performed By: #### L BCLH #### [facility] [address] [address] [address] Stephanie Gibbs PROGESTERONEon 05-08-2022 Progesterone 0.2 ng/mL Normal [facility] Comment on above: Result Comment: Foll icular phase 0.1 - 0.9 Luteal phase 1.8 - 23.9 Ovulation phase 0.1 - 12.0 First trimester 11.0 - 44.3 Second trimester 25.4 - 83.3 Third trimester 58.7 - 214.0 Postmenopausal 0.0 - 0.1 Performed By: #### P AARTI #### [facility] [address] [place] [address] Dr. Stephanie Gibbs PROLACTINon 05-08-2022 Prolactin 43.0 ng/mL Critically high 4.8-23.[address] [facility] Comment on above: Performed By: #### F T4 #### [facility] [address] [place] [address] Dr. Stephanie Gibbs CBC AUTO DIFFon 05-07-2022 BASO # 0.1 103/ul Normal 0.0-0.1 [facility] Comment on above: Performed By: #### C BC #### [facility] [address] [place] [address] Dr. Stephanie Gibbs Basophils/100 WBC (Bld) 1.0 % Normal 0.2-2.0 [facility] Comment on above: Performed By: #### C BC #### [facility] [address] [place] [address] Dr. Stephanie Gibbs EO # 0.2 103/ul Normal 0.0-0.7 [facility] Comment on above: Performed By: #### C BC #### [facility] [address] [place] [address] Dr. Stephanie Gibbs Eosinophils/100 WBC (Bld) 2.7 % Normal 0.9-7.0 [facility] Comment on above: Performed By: #### C BC #### [facility] [address] [place] [address] Dr. Stephanie Gibbs Erythrocyte distribution width (RBC) [Ratio] 13.0 % Normal 11.0-15.0 [facility] Comment on above: Performed By: #### C BC #### [facility] [address] [place] [address] Dr. Stephanie Gibbs Hematocrit (Bld) [Volume fraction] 39.0 % Normal 36.0-48.0 [facility] Comment on above: Performed By: #### C BC #### [facility] [address] [place] [address] Dr. Stephanie Gibbs Hemoglobin (Bld) [Mass/Vol] 13.0 g/dL Normal 12.0-16.0 [facility] Comment on above: Performed By: #### C BC #### [facility] [address] [place] [address] Dr. Stephanie Gibbs IG # 0.03 10e3/ul Normal 0.00-0.03 [facility] Comment on above: Performed By: #### C BC #### [facility] [address] [place] [address] Dr. Stephanie Gibbs IG % 0.4 % Normal 0.0-0.5 [facility] Comment on above: Performed By: #### C BC #### [facility] [address] [place] [address] Dr. Stephanie Gibbs LYMPH # 2.4 103/ul Normal 1.2-3.8 [facility] Comment on above: Performed By: #### C BC #### [facility] [address] [place] [address] Dr. Stephanie Gibbs Lymphocytes/100 WBC (Bld) 33.8 % Normal 20.5-60.0 [facility] Comment on above: Performed By: #### C BC #### [facility] [address] [place] [address] Dr. Stephanie Gibbs MANUAL DIFF REQ NO Normal The [facility] Comment on above: Performed By: #### C BC #### [facility] [address] [place] [address] Dr. Stephanie Gibbs MCH (RBC) [Entitic mass] 32.2 pg Normal 26.7-34.0 [facility] Comment on above: Performed By: #### C BC #### [facility] [address] [place] [address] Dr. Stephanie Gibbs MCHC (RBC) [Mass/Vol] 33.3 g/dL Normal 29.9-35.2 [facility] Comment on above: Performed By: #### C BC #### [facility] [address] [place] [address] Dr. Stephanie Gibbs MCV (RBC) [Entitic vol] 96.5 fL Normal 81.0-99.0 [facility] Comment on above: Performed By: #### C BC #### [facility] [address] [place] [address] Dr. Stephanie Gibbs MONO # 0.4 103/ul Normal 0.3-0.8 [facility] Comment on above: Performed By: #### C BC #### [facility] [address] [place] [address] Dr. Stephanie Gibbs Monocytes/100 WBC (Bld) 5.9 % Normal 1.7-12.0 [facility] Comment on above: Performed By: #### C BC #### [facility] [address] [place] [address] Dr. Stephanie Gibbs NEUT # 4.0 103/ul Normal 1.4-6.5 [facility] Comment on above: Performed By: #### C BC #### [facility] [address] [place] [address] Dr. Stephanie Gibbs Neutrophils/100 WBC (Bld) 56.2 % Normal 43.0-75.0 [facility] Comment on above: Performed By: #### C BC #### [facility] [address] [place] [address] Dr. Stephanie Gibbs Platelet mean volume (Bld) [Entitic vol] 9.8 fL Normal 9.5-13.5 [facility] Comment on above: Performed By: #### C BC #### [facility] [address] [place] [address] Dr. Stephanie Gibbs PLT 245 103/ul Normal 150-450 [facility] Comment on above: Performed By: #### C BC #### [facility] [address] [place] [address] Dr. Stephanie Gibbs RBC 4.04 106/ul Critically low 4.20-5.[address] [facility] Comment on above: Performed By: #### C BC #### [facility] [address] [place] [address] Dr. Stephanie Gibbs WBC 7.2 103/ul Normal 4.0-11.0 [facility] Comment on above: Performed By: #### C BC #### [facility] [address] [address] [address] Stephanie Gibbs FREE T4on 05-07-2022 Free T4 [Mass/Vol] 0.69 ng/dL Critically low 0.76-1.46 [facility] Comment on above: Performed By: #### C BC #### [facility] [address] [place] [address] Dr. Stephanie Gibbs GLYCOHEMOGLOBIN A1Con 2021 ADA RECOMMENDATION SEE BELOW Normal [facility] Comment on above: Result Comment: ADA RECOMMENDED LIMIT 4.0 - 6.0 ADA THERAPEUTIC TARGET < 7.0 ACTION SUGGESTED > 7.0 Performed By: #### C BC #### [facility] [address] [place] [address] Dr. Stephanie Gibbs Glucose [Mass/Vol] 128 mg/dL Normal The [facility] Comment on above: Performed By: #### C BC #### [facility] [address] [place] [address] Dr. Stephanie Gibbs HbA1c (Bld) [Mass fraction] 6.1 % Normal 4.5-6.2 [facility] Comment on above: Performed By: #### C BC #### [facility] [address] [place] [address] Dr. Stephanie Gibbs TSHon 05-07-2022 TSH 2.391 uIU/mL Normal 0.358-3.74 0 [facility] Comment on above: Performed By: #### F T4 #### [facility] [address] [place] [address] Dr. Stephanie Gibbs Progress Noteson 03-29-2022 Table Worker Packager Authentication Interface Message Text .Documentation: Mode: Telephone Patient Home Phone: Patient Patient Cell Preferred phone: [phone] Consent: I confirmed patient understanding of the [...] seen on prior sleep endoscopy Normal [facility] [employer] [facility] FREE T4on 03-09-2022 Free T4 [Mass/Vol] 1.08 ng/dL Normal 0.76-1.46 [facility] Comment on above: Performed By: #### F T4 #### [facility] [address] [place] [address] Dr. Stephanie Gibbs LIPID PROFILEon 03-09-2022 CHOL-HDL RATIO NORM SEE BELOW Normal [facility] Comment on above: Result Comment: 3.3 - 4.4 LOW RISK 4.4 - 7.1 AVERAGE RISK 7.1 - 11.0 MODERATE RISK >11.0 HIGH RISK Performed By: #### F T4 #### [facility] [address] [address] [address] Stephanie Gibbs Cholesterol [Mass/Vol] 205 mg/dL Critically high <=200 [facility] Comment on above: Performed By: #### F T4 #### [facility] [address] [address] [address] Stephanie Gibbs Cholesterol in HDL [Mass/Vol] 44 mg/dL Normal 40-60 [facility] Comment on above: Performed By: #### F T4 #### [facility] [address] [address] [address] Stephanie Gibbs Cholesterol in LDL [Mass/Vol] 126.6 mg/dL Normal [facility] Comment on above: Performed By: #### F T4 #### [facility] [address] [address] [address] Stephanie Gibbs Cholesterol.total/Chol esterol in HDL [Mass ratio] 4.7 {ratio} Normal [facility] Comment on above: Performed By: #### F T4 #### [facility] [address] [address] [address] Stephanie Gibbs HDL NORMAL > or = 60 mg/dl - LO W CARDIOVASCULAR RISK <40 mg/dl - HIGH CARDIOVASCULAR RISK Normal [facility] Comment on above: Performed By: #### F T4 #### [facility] [address] [address] [address] Stephanie Gibbs LDL CALC NORMAL SEE BELOW Normal [facility] Comment on above: Result Comment: <100 mg/dl OPTIMAL 100 - 129 mg/dl NEAR OR ABOVE OPTIMAL 130 - 159 mg/dl BORDERLINE HIGH 160 - 189 mg/dl HIGH >190 mg/dl VERY HIGH Performed By: #### F T4 #### [facility] [address] [place] [address] Dr. Stephanie Gibbs Triglyceride [Mass/Vol] 172 mg/dL Critically high <=150 [facility] Comment on above: Performed By: #### F T4 #### [facility] [address] [place] [address] Dr. Stephanie Gibbs VLDL CALC 34.4 mg/dL Normal [facility] Comment on above: Performed By: #### F T4 #### [facility] [address] [address] [address] Stephanie Gibbs PROF 14(COMP METB)on 022 Albumin [Mass/Vol] 3.7 g/dL Normal 3.4-5.0 [facility] Comment on above: Performed By: #### F T4 #### [facility] [address] [place] [address] Dr. Stephanie Gibbs Albumin/Globulin [Mass ratio] 0.8 {ratio} Normal [facility] Comment on above: Performed By: #### F T4 #### [facility] [address] [place] [address] Dr. Stephanie Gibbs ALP [Catalytic activity/Vol] 121 U/L Critically high 46-116 [facility] Comment on above: Performed By: #### F T4 #### [facility] [address] [place] [address] Dr. Stephanie Gibbs ALT [Catalytic activity/Vol] 39 U/L Normal 14-59 [facility] Comment on above: Performed By: #### F T4 #### [facility] [address] [address] [address] Stephanie Gibbs Anion gap [Moles/Vol] 12.6 mmol/L Normal Th [facility] Comment on above: Performed By: #### F T4 #### [facility] [address] [place] [address] Dr. Stephanie Gibbs AST [Catalytic activity/Vol] 21 U/L Normal 15-37 [facility] Comment on above: Performed By: #### F T4 #### [facility] [address] [place] [address] Dr. Stephanie Gibbs Bilirubin [Mass/Vol] 0.4 mg/dL Normal 0.2-1.0 [facility] Comment on above: Performed By: #### F T4 #### [facility] [address] [place] [address] Dr. Stephanie Gibbs Calcium [Mass/Vol] 9.1 mg/dL Normal 8.5-10.1 [facility] Comment on above: Performed By: #### F T4 #### [facility] [address] [place] [address] Dr. Stephanie Gibbs Chloride [Moles/Vol] 102 mmol/L Normal 98-107 [facility] Comment on above: Performed By: #### F T4 #### [facility] [address] [address] [address] Stephanie Gibbs CO2 [Moles/Vol] 28.1 mmol/L Normal 21.0-32.0 [facility] Comment on above: Performed By: #### F T4 #### [facility] [address] [place] [address] Dr. Stephanie Gibbs Creatinine [Mass/Vol] 0.95 mg/dL Normal 0.55-1.02 [facility] Comment on above: Performed By: #### F T4 #### [facility] [address] [address] [address] Stephanie Gibbs EGFR-AF NEW ZEALANDER >60 Normal >=60 [facility] Comment on above: Performed By: #### F T4 #### [facility] [address] [address] [address] Stephanie Gibbs EGFR-NON AF NEW ZEALANDER >60 Normal >=60 [facility] Comment on above: Performed By: #### F T4 #### [facility] [address] [address] [address] Stephanie Gibbs Globulin (S) [Mass/Vol] 4.8 g/dL Normal [facility] Comment on above: Performed By: #### F T4 #### [facility] [address] [address] [address] Stephanie Gibbs Glucose [Mass/Vol] 106 mg/dL Normal 74-106 [facility] Comment on above: Performed By: #### F T4 #### [facility] [address] [address] [address] Stephanie Gibbs Potassium [Moles/Vol] 3.7 mmol/L Normal 3.5-5.1 [facility] Comment on above: Performed By: #### F T4 #### [facility] [address] [address] [address] Stephanie Gibbs Protein [Mass/Vol] 8.5 g/dL Critically high 6.4-8.2 [facility] Comment on above: Performed By: #### F T4 #### [facility] [address] [address] [address] Stephanie Gibbs Sodium [Moles/Vol] 139 mmol/L Normal 136-145 [facility] Comment on above: Performed By: #### F T4 #### [facility] [address] [address] [address] Stephanie Gibbs Urea nitrogen [Mass/Vol] 14.0 mg/dL Normal 7.0-18.0 [facility] Comment on above: Performed By: #### F T4 #### [facility] [address] [address] [address] Stephanie Gibbs Urea nitrogen/Creatinine [Mass ratio] 14.7 mg/mg Normal [facility] Comment on above: Performed By: #### F T4 #### [facility] [id number] Stephanie Gibbs TSHon 03-09-2022 TSH 0.446 uIU/mL Normal 0.358-3.74 0 [facility] Comment on above: Performed By: #### F T4 #### [facility] [id number] Stephanie Gibbs Telephone Encounteron 2021 Table Worker Packager Authentication Interface Message Text Patient calling in [...] to turn it in is 03/19/22. #: [phone] Normal [facility] Care Plan Noteon 02-26-2022 Table Worker Packager Authentication Interface Message Text Problem: Routine Care: [...] met Outcome: Adequate for Discharge Normal [facility] Table Worker Packager Authentication Interface Message Text Problem: Routine Care: [...] will be met Outcome: Progressing Normal [facility] Anesthesia Attestationon Table Worker Packager Authentication Interface Message Text Anesthesia Attestation ATTESTATION OF INFORMED CONSENT FOR ANESTHESIA Anesthesia options were discussed with the patient and/or legal sales solutions representative. The risks, benefits and alternatives were reviewed. Questions regarding anesthesia were answered. Patient and/or legal sales solutions representative knows such anesthetics and procedures may be performed by Resident physicians, Certified Anesthesiologist Assistants, or Certified Nurse Anesthetists under the supervision of a physician. The patient /or the patient's legal sales solutions representative agree with the plan for anesthesia. Normal [facility] Anesthesia Postprocedure Lauren luationon 02-25-2022 Table Worker Packager Authentication Interface Message Text Anesthesia Postoperative Assessment: [...] ANESTHESIA COMPLICATIONS: No complications documented. Normal [facility] Anesthesia Preprocedure Eval uationon 02-25-2022 Table Worker Packager Authentication Interface Message Text ASA: 3 NPO status: Greater than 8 hours Past Medical History and Review of Systems Pulmonary (+) sleep apnea, a smoker (ex-smoker) Dental ROS (+) upper dentures, Endo (+) hypothyroidism, obesity precision millwright - negative ROS Neuro/Psych (+) depression, anxiety/panic [...] the history and physical examination. Normal The [facility] Anesthesia Transfer [facility] n 02-25-2022 Table Worker Packager Authentication Interface Message Text Patient taken to [...] Maite Youssef MD CAA: Mariaa Meneses CAA CAR DRIVER: Cari Hurtado APRN-KOBI Turbine Assembler: Carol Barrera MD Anesthesia Student: Prema Norris [...] of the report was received. PADMINI Chiang [facility] Blood Attestationon 02-26-20 Table Worker Packager Authentication Interface Message Text Blood Attestation ATTESTATION OF INFORMED CONSENT FOR BLOOD The transfusion of blood and/or blood components were discussed with the patient and/or legal sales solutions representative. The risks, benefits and alternatives were reviewed. Questions regarding blood transfusions were answered. The patient /or the patient's legal sales solutions representative agree with the plan for transfusion of blood and/or blood components. Normal [facility] Brief Operative Noteon 02-25 Table Worker Packager Authentication Interface Message Text Brief Operative Note MAIN OR 11 Isabelle Hewitt 46 year old female Surgical Contact Serial Number: [id number] Preoperative Diagnosis: DINONE (obstructive sleep apnea) [G47.33] Postoperative Diagnosis: * DIONNE (obstructive sleep apnea) [G47.33] Procedures: Surgical CPTs Procedures * PALATOPHARYNGOPLASTY No data filed Surgeon(s): Surgeon(s): Yi Moreno MD Staff: Scrub: Wiley Álvarez Copy Preparer Nurse: Mariaa Briseno; Dulce Allred; Babs Wells RN Link Trainer Maintenance Worker: Yi Piña MD; Unruly Biggs MD Anesthesia: Consult Anesthesiologist: Maite Youssef MD CAA: Mariaa Meneses CAA CAR DRIVER: Cari Hurtado APRN-CRNA Turbine Assembler: Carol Barrera MD Anesthesia Student: Prema Norris [...] Moreno MD 02/25/2022 10:40 AM Normal [facility] Care Plan Noteon 02-25-2022 Table Worker Packager Authentication Interface Message Text Problem: Routine Care: [...] will be met Outcome: Progressing Normal [facility] OP Noteon 02-25-2022 Table Worker Packager Authentication Interface Message Text [id number] Isabelle Hewitt 1975 @PATFNAME@ @PATIENTLASTNAME@ [id number] Preoperative diagnosis: 1. Obstructive sleep apnea 2. Pharyngeal stenosis Postoperative diagnosis: Same Procedure: 1. Expansion sphincter pharyngo-plasty 2. Tonsillectomy Surgeon: Yi Alant. Surgeons: Arturo biggs Anesthesia: Gen. Indication: Patient [...] to recovery in stable condition. Normal [facility] Progress Noteson 02-25-2022 Table Worker Packager Authentication Interface Message Text No excessive swallowing. [...] with no areas of redness. Normal [facility] URINE HCG-IN OFFICEon 2021 HCG ( test) Ql (U) Negative Negative [facility] Interpretation and review of laboratory results Normal [facility] Negative Internal Control Negative Negative [facility] Positive Internal Control Positive Positive [facility] Telephone Encounteron 2021 Table Worker Packager Authentication Interface Message Text PSE received pre-op COVID test results - NOT DETECTED on 02/23/2022. Document scanned into [employer]. Normal [facility] Covid-19 PCR (CVDTBH)on SARS-CoV-2 (COVID-19) RNA JOHNNIE+probe Ql (Unsp spec) Not detected Normal NOT DETECTED [facility] Comment on above: Result Comment: When diagnostic [...] for this test is supported by the [place] of Health and Human Service's declaration that [...] used). Performed By: #### C BC #### [facility] [address] [address] [address] Stephanie Gibbs XR ABDOMEN (KUB) (SINGLE [...] pattern, large colonic fecal Stable left nephrolithiasis [facility] Phone: Radiology Study observation (narrative) [facility] Phone: XR ABDOMEN (KUB) (SINGLE AP VIEW)Ordered By: Adali Gill on 02-19-2022 [facility] Phone: EKG 12 LEAD - PERFORMon 01-21 Diagnosis Normal sinus rhythm Nonspecific T wave abnormality Abnormal ECG No previous ECGs available Confirmed by OLGA MONTES ([id number]) on 02/17/2022 9:51:58 PM [facility] P wave [facility] by EKG 72 BPM [facility] P wave axis 9 degrees [facility] P-R Interval 154 ms [facility] Q-T interval 416 ms [facility] Q-T interval corrected 455 ms [facility] QRS axis 10 degrees [facility] QRS duration 78 ms [facility] T wave axis [address] [facility] Tele[facility] Encounteron 2021 SARS-CoV-2 (COVID-19) RNA JOHNNIE+probe Ql (Unsp spec) Patient is scheduled for surgery 02/25/2022. Prefers to complete pre-op COVID testing closer to home. Instructed to obtain testing 48-72 hours prior to surgery and bring copy of results on day of surgery. PSE contact information provided, order faxed to [facility] per patient request. Normal [facility] PSE Appt H AND Neftali 2 Table Worker Packager Authentication Interface Message Text Patient was identified by name and date of . Quinton Anais Bill of rights provided to patient Normal [facility] Patient Instructionson 02-16 Table Worker Packager Authentication Interface Message Text On the morning [...] for pain Please hold all Vitamin E, Hilliard 3, fish oil and herbal supplements for 1 week prior to surgery Normal [facility] Telephone Encounteron 2021 Table Worker Packager Authentication Interface Message Text Arrangements to be made for pre-op COVID testing per ENT request. Normal [facility] FLUORO FOR SURGICAL PROCEDUR ESon 01-05-2022 Radiology exam is complete. No Radiologist dictation. Please follow up with ordering provider. [facility] CONSOLIDATED , Urineon 2 Beta HCG ( test) Ql (U) Negative NEGATIVE [facility] Comment on above: Specimens with hCG l evels near the threshold of the test (25 mIU/mL) may give a negative or indeterminate result. In such cases, another test should be performed with a new specimen in 48-72 hours. If early is suspected clinically in this setting, correlation with quantitative serum b-hCG level is suggested. [employer] has confirmed the use of plasma for this test. This has not been cleared or approved by the U.S. Food and Drug Administration. The FDA has determined that such clearance is not necessary. [employer] Basic Metabolic Panelon 12-20 Anion gap [Moles/Vol] 8 mmol/L Low 9 - 17 mmol/L [facility] Calcium [Mass/Vol] 8.9 mg/dL 8.6 - 10. 4 mg/dL [facility] Chloride [Moles/Vol] 101 mmol/L 98 - 10 7 mmol/L [facility] CO2 [Moles/Vol] 29 mmol/L 20 - 31 mmol/L [facility] Creatinine [Mass/Vol] 0.87 mg/dL 0.50 - 0.90 mg/dL [facility] GFR >60 >60 mL/min [facility] GFR Non- >60 >60 mL/min [facility] Glucose [Mass/Vol] 98 mg/dL 70 - 99 mg/dL [facility] Interpretation and review of laboratory results Abnormal [facility] Potassium [Moles/Vol] 4.3 mmol/L 3.7 - 5.3 mmol/L [facility] Sodium [Moles/Vol] 138 mmol/L 135 - 144 mmol/L [facility] Urea nitrogen (BldV) [Mass/Vol] 8 mg/dL 6 - 20 mg/dL [facility] Urea nitrogen/Creatinine (Bld) [Mass ratio] 9 [facility] CBC with Auto Differentialon 12-30-2021 Absolute Eos # 0.38 [facility] th Absolute Immature Granulocyte 0.06 [facility] Absolute Lymph # 2.56 [facility] alth Absolute Antelope # 0.69 [facility] Basophils (Bld) [#/Vol] 0.09 10*3/uL [facility] Basophils/100 WBC (Bld) 1 % 0 - 2 % [facility] Eosinophils/100 WBC (Bld) 4 % 1 - 4 % [facility] Hematocrit (Bld) [Volume fraction] 38.7 % 36.3 - 47.1 % [facility] Hemoglobin.gastrointes tinal spec 1 Ql (Stl) 13.0 g/dL 11.9 - 15.1 g/dL [facility] Immature granulocytes/100 WBC (Bld) 1 % High 0 [facility] Interpretation and review of laboratory results Abnormal [facility] Lymphocytes/100 WBC (Bld) 27 % 24 - 43 % [facility] MCH (RBC) [Entitic mass] 33.1 pg 25.2 - 33.5 pg [facility] MCHC (RBC) [Mass/Vol] 33.6 g/dL 28.4 - 34.8 g/dL [facility] MCV (RBC) [Entitic vol] 98.5 fL 82.6 - 102.9 fL [facility] Monocytes/100 WBC (Bld) 7 % 3 - 12 % [facility] NRBC Automated 0.0 0.0 per 100 WBC [facility] Platelet distribution width (Bld) [Ratio] 12.9 % 11.8 - 14.4 % [facility] Platelet mean volume (Bld) [Entitic vol] 9.8 fL 8.1 - 13.5 fL [facility] Platelets (Bld) [#/Vol] 284 10*3/uL [facility] RBC (Bld) [#/Vol] 3.93 10*6/uL Low 3.95 - 5.11 m/uL [facility] Segmented neutrophils/100 WBC (Bld) 60 % 36 - 65 % [facility] Segs Absolute 5.62 [facility] W[facility] (Bld) [#/Vol] 9.4 10*3/uL [facility] Laboratory - Chemistry and C hemistry - challengeon 12-30-2021 GFR/1.73 sq M.predicted MDRD (S/P/Bld) [Vol rate/Area] [facility] Comment on above: Average GFR for 40-4 9 years old: 99 mL/min/1.73sq m Chronic Kidney Disease: <60 mL/min/1.73sq m Kidney failure: <15 mL/min/1.73sq m eGFR calculated using average adult body mass. Additional eGFR calculator available at: http://[email or web address]_crcl_2012.htm Stage 1: Some kidney damage normal GFR Stage 2: Mild kidney damage GFR 60-89 Stage 3: Moderate kidney damage GFR 30-59 Stage 4: Severe kidney damage GFR 15-29 Stage 5: Severe kidney damage GFR <15 ESRD - chronic treatment by dialysis or transplant XR ABDOMEN (KUB) (SINGLE AP VIEW)on 12-22-2021 Nonobstructed bowel- gas pattern. No definite renal or ureteral stones. [facility] CON[facility] EXAMINATION: ONE SUPINE XRAY VIEW(S) OF THE ABDOMEN 12/22/2021 5:15 pm COMPARISON: October 13, 2021 HISTORY: ORDERING SYSTEM PROVIDED HISTORY: Kidney stones TECHNOLOGIST PROVIDED HISTORY: kidney stones FINDINGS: Bowel gas pattern nonobstructed. Renal shadows partially obscured by bowel gas and fecal debris. No definite renal or ureteral stones. No acute osseous abnormality. [facility] Perry Neely DO - 12/22/2021 EXAMINATION: [...] pattern. No definite renal or ureteral stones. [employer] Phone: Radiology Study observation (narrative) [employer] Phone: XR ABDOMEN (KUB) (SINGLE AP VIEW)Ordered By: Perry Neely on 12-22-2021 [employer] Phone: Office Visit (Cardiology)on 12-02-2021 Follow-up visit [...] Recorded: 02Dec2021 03:38PM Heart Rate72, R Radial Mravvwyh29 Rvesxohbg72 Height5 ft 2 in Dthqdr223 lb BMI Wrfohuggcx97.47 kg/m2 BSA Calculated1.84 Tobacco Useb) No PHQ-2 [...] Dec 02 2021 5:03PM EST (Author) Normal [employer] Tobacco Screening.on 022 Adult depression screening assessment No [facility] [facility] 250 DO Work Phone: Tobacco use status CPHS b) No [facility] [facility] 250 DO Work Phone: Office Visit (Cardiology)on 10-14-2021 Follow-up visit Diagnoses/Problems Assessed Abnormal echocardiogram (793.2) (R93.1) Essential hypertension, benign (401.1) (I10) Class 1 obesity with body mass index (BMI) of 33.0 to 33.9 in adult (278.00,V85.33) (E66.9,Z68.33) PVC (premature ventricular contraction) (427.69) (I49.3) Former smoker (V15.82) (Z87.891) Quit 2020 Lower extremity edema (782.3) (R60.0) Obstructive sleep [...] signing my name below, I, Ricco May LPNScribe, attest that this documentation has been prepared [...] 1 t (more content not included)... Normal [employer] Tobacco Screening.on 022 Adult depression screening assessment Yes [facility] [facility] 250 DO Work Phone: Tobacco use status CPHS b) No -[facility] [facility] 250 DO Work Phone: Tobacco Screening. 1-Several days [facility] [facility] 250 DO Work Phone: Tobacco Screening. 3-Nearly every day [facility] [facility] 250 DO Work Phone: Tobacco Screening. 0-Not at all [facility] [facility] 250 DO Work Phone: Tobacco Screening. 2-More than half the days [facility] [facility] 250 DO Work Phone: Vital Signs Date Time Vital Sign Value Performing Clinician Facility 12-12-2023 15:54-0400 Body height 157.48 cm Gena Aichholz Work Phone: [facility] 12-12-2023 15:54-0400 Body mass index (BMI) [Ratio] 27.4 kg/m2 Gena Aichholz Work Phone: [facility] 12-12-2023 15:54-0400 Body weight 68.03 kg Gena Aichholz Work Phone: [facility] 12-12-2023 15:54-0400 Diastolic blood pressure 97 mm[Hg] Gena Aichholz Work Phone: [facility] 12-12-2023 15:54-0400 Heart rate 103 /min Gena Aichholz Work Phone: [facility] 12-12-2023 15:54-0400 Systolic blood pressure 137 mm[Hg] Gena Aichholz Work Phone: [facility] 11-02-2023 15:32-0400 Body height 157.48 cm Gena Aichholz Work Phone: [facility] 11-02-2023 15:32-0400 Body mass index (BMI) [Ratio] 27.4 kg/m2 Gena Aichholz Work Phone: [facility] 11-02-2023 15:32-0400 Body weight 68.03 kg Gena Aichholz Work Phone: [facility] 11-02-2023 15:32-0400 Heart rate 67 /min Gena Aichholz Work Phone: [facility] 10-14-2023 12:37-0500 Body height 157.48 cm Gena Aichholz Work Phone: [facility] 10-14-2023 12:37-0500 Body mass index (BMI) [Ratio] 28 kg/m2 Gena Aichholz Work Phone: [facility] 10-14-2023 12:37-0500 Body temperature 99.4 [degF] Gena Aichholz Work Phone: [facility] 10-14-2023 12:37-0500 Body weight 69.62 kg Gena Aichholz Work Phone: [facility] 10-14-2023 12:37-0500 Diastolic blood pressure 94 mm[Hg] Gena Aichholz Work Phone: [facility] 10-14-2023 12:37-0500 Heart rate 81 /min Gena Aichholz Work Phone: [facility] 10-14-2023 12:37-0500 Respiratory rate 16 /min Gena Aichholz Work Phone: [facility] 10-14-2023 12:37-0500 SaO2% (BldA) [Mass fraction] 97 % Gena Aichholz Work Phone: [facility] 10-14-2023 12:37-0500 Systolic blood pressure 131 mm[Hg] Gena Aichholz Work Phone: [facility] 09-20-2023 15:30-0500 Body height 157.48 cm Wiley Mcmanus Other [facility] 09-20-2023 15:30-0500 Body mass index (BMI) [Ratio] 30.18 kg/m2 Wiley Mcmanus Other [facility] [employer] Other 09-20-2023 15:30-0500 Body weight 74.84 kg Wiley Mcmanus Other [facility] 08-08-2023 13:25-0500 Diastolic blood pressure 89 mm[Hg] Gena Aichholz Work Phone: [facility] 08-08-2023 13:25-0500 Heart rate 75 /min Gena Aichholz Work Phone: [facility] 08-08-2023 13:25-0500 Respiratory rate 16 /min Gena Aichholz Work Phone: [facility] 08-08-2023 13:25-0500 SaO2% (BldA) [Mass fraction] 99 % Gena Aichholz Work Phone: [facility] 08-08-2023 13:25-0500 Systolic blood pressure 117 mm[Hg] Gena Aichholz Work Phone: [facility] 08-08-2023 11:41-0500 Body height 157.48 cm Gena Aichholz Work Phone: [facility] 08-08-2023 11:41-0500 Body weight 77.11 kg Gena Aichholz Work Phone: [facility] 06-30-2023 09:20-0500 Body height 157.48 cm Majo Lyman Other [employer] [facility] [employer] Other 06-30-2023 09:20-0500 Body mass index (BMI) [Ratio] 30.18 kg/m2 Majo Lyman Other [employer] Other 06-30-2023 09:20-0500 Body weight 74.84 kg Majo Scovanner Other [employer] Other 06-30-2023 09:20-0500 Diastolic blood pressure 87 mm[Hg] Majo Scovanner Other [employer] Other 06-30-2023 09:20-0500 Systolic blood pressure 115 mm[Hg] Majo Scovanner Other [employer] Other 06-07-2023 12:30-0400 Body height 157.48 cm Louise Johnson Other [employer] Other 06-07-2023 12:30-0400 Body mass index (BMI) [Ratio] 31.05 kg/m2 Louise Johnson Other [employer] Other 06-07-2023 12:30-0400 Body temperature 98 [degF] Louise Johnson Other [employer] Other 06-07-2023 12:30-0400 Body weight 77.02 kg Louise Johnson Other [employer] Other 06-07-2023 12:30-0400 Diastolic blood pressure 78 mm[Hg] Louise Johnson Other [employer] Other 06-07-2023 12:30-0400 Respiratory rate 18 /min Louise Johnson Other [employer] Other 06-07-2023 12:30-0400 SaO2% (BldA) [Mass fraction] 98 % Louise Johnson Other [employer] Other 06-07-2023 12:30-0400 Systolic blood pressure 117 mm[Hg] Louise Johnson Other [employer] Other 07-17-2022 04:28-0500 Body temperature 98.29 [degF] Rikki Rodrigues DMD, MD Work Phone: [employer] 07-17-2022 04:28-0500 Diastolic blood pressure 80 mm[Hg] Rikki Rodrigues DMD, MD Work Phone: [employer] 07-17-2022 04:28-0500 Heart rate 54 /min Rikki Rodrigues DMD, MD Work Phone: [employer] 07-17-2022 04:28-0500 Respiratory rate 18 /min Rikki Rodrigues DMD, MD Work Phone: [employer] 07-17-2022 04:28-0500 SaO2% (BldA) [Mass fraction] 96 % Rikki Rodrigues DMD, MD Work Phone: [employer] 07-17-2022 04:28-0500 Systolic blood pressure 109 mm[Hg] Rikki Rodrigues DMD, MD Work Phone: [employer] 07-14-2022 15:17-0500 Body mass index (BMI) [Ratio] 36.29 kg/m2 Rikki Rodrigues DMD, MD Work Phone: [employer] 07-14-2022 15:17-0500 Body weight 90 kg Rikki Rodrigues DMD, MD Work Phone: [employer] 07-14-2022 14:55-0500 Body height 157.5 cm Rikki Rodrigues DMD, MD Work Phone: [employer] 07-14-2022 09:01-0500 SaO2% (BldA) [Mass fraction] 98.8 % Rikki Rodrigues DMD, MD Work Phone: [facility] 07-08-2022 13:59-0500 Body height 157.5 cm Gena Holbrook APRN-MANAGER UNIVERSITY Work Phone: [facility] 07-08-2022 13:59-0500 Body mass index (BMI) [Ratio] 35.96 kg/m2 Gena Holbrook APRN-MANAGER UNIVERSITY Work Phone: [facility] 07-08-2022 13:59-0500 Body temperature 97.9 [degF] Gena Holbrook APRN-MANAGER UNIVERSITY [facility] 07-08-2022 13:59-0500 Body weight 89.18 kg Gena Holbrook APRN-MANAGER UNIVERSITY Work Phone: [facility] 07-08-2022 13:59-0500 Diastolic blood pressure 80 mm[Hg] Gena Holbrook APRN-MANAGER UNIVERSITY Work Phone: [facility] 07-08-2022 13:59-0500 Heart rate 98 /min Gena Holbrook APRN-MANAGER UNIVERSITY [facility] 07-08-2022 13:59-0500 Respiratory rate 14 /min Gena Holbrook APRN-MANAGER UNIVERSITY Work Phone: [facility] 07-08-2022 13:59-0500 SaO2% (BldA) [Mass fraction] 98 % Gena Holbrook APRN-MANAGER UNIVERSITY Work Phone: [facility] 07-08-2022 13:59-0500 Systolic blood pressure 122 mm[Hg] Gena Holbrook APRN-MANAGER UNIVERSITY [facility] 06-18-2022 15:09-0400 Diastolic blood pressure 89 mm[Hg] Rikki Rodrigues DMD, MD Work Phone: [facility] 06-18-2022 15:09-0400 Heart rate 117 /min Rikki Rodrigues DMD, MD Work [facility] 06-18-2022 15:09-0400 Systolic blood pressure 120 mm[Hg] Rikki Rodrigues DMD, MD Work Phone[facility] 06-18-2022 15:07-0400 Body height 157.5 cm Rikki Rodrigues DMD, MD Work Phone[facility] 06-18-2022 15:07-0400 Body mass index (BMI) [Ratio] 34.75 kg/m2 Rikki Rodrigues DMD, MD Work Phone[facility] 06-18-2022 15:07-0400 Body weight 86.18 kg Rikki Rodrigues DMD, MD Work [facility] 05-28-2022 09:00-0400 Body height 157.5 cm Pse Rn [facility] 05-28-2022 09:00-0400 Body mass index (BMI) [Ratio] 34.75 kg/m2 Pse Rn [facility] 05-28-2022 09:00-0400 Body weight 86.18 kg Pse Rn [facility] 02-26-2022 12:49-0400 Body temperature 97.81 [degF] Yi Moreno MD Work Phone: [facility] 02-26-2022 12:49-0400 Diastolic blood pressure 57 mm[Hg] Yi Moreno MD Work Phone: [facility] 02-26-2022 12:49-0400 Heart rate 78 /min Yi Moreno MD Work Phone: [facility] 02-26-2022 12:49-0400 Respiratory rate 18 /min Yi Moreno MD Work Phone: [facility] 02-26-2022 12:49-0400 SaO2% (BldA) [Mass fraction] 92 % Yi Moreno MD [facility] 02-26-2022 12:49-0400 Systolic blood pressure 101 mm[Hg] Yi Moreno MD Work [facility] 02-25-2022 18:16-0400 Body mass index (BMI) [Ratio] 32.92 kg/m2 Yi Moreno MD Work Phone: [employer] 02-25-2022 18:16-0400 Body weight 81.65 kg Yi Moreno MD Work Phone: [employer] 02-25-2022 08:08-0400 Body height 157.5 cm Yi Moreno MD Work Phone: [employer] 02-17-2022 22:11-0400 Heart rate 72 /min Edflor Rachel RISK CONTROL SPECIALIST-MANAGER [employer]IVERSITY Work Phone: [employer] 02-16-2022 14:19-0400 Body height 157.5 cm Edward Brigidodeedee RISK CONTROL SPECIALIST-MANAGER [employer]IVERSITY Work Phone: [employer] 02-16-2022 14:19-0400 Body mass index (BMI) [Ratio] 32.92 kg/m2 Edward Brigidoenkowski RISK CONTROL SPECIALIST-MANAGER [employer]ERS[employer] Work Phone: [employer] 02-16-2022 14:19-0400 Body temperature 97.3 [degF] Edward Zienkowski RISK CONTROL SPECIALIST-MANAGER [employer]IVERS[employer] Work Phone: [employer] 02-16-2022 14:19-0400 Body weight 81.65 kg Edward Hankwski RISK CONTROL SPECIALIST-MANAGER [employer]IVERSITY Work Phone: [employer] 02-16-2022 14:19-0400 Diastolic blood pressure 81 mm[Hg] Edward Gretchenki RISK CONTROL SPECIALIST-MANAGER [employer]IVERS[employer] Work Phone: [employer] 02-16-2022 14:19-0400 Heart rate 74 /min Edward Rachel RISK CONTROL SPECIALIST-MANAGER [employer]IVERS[employer] Work Phone: [employer] 02-16-2022 14:19-0400 Respiratory rate 16 /min Edward Rachel RISK CONTROL SPECIALIST-MANAGER [employer]IVERSITY Work Phone: [employer] 02-16-2022 14:19-0400 SaO2% (BldA) [Mass fraction] 96 % Edward Ceciliakowski RISK CONTROL SPECIALIST-MANAGER [employer]IVERSITY Work Phone: [facility] 02-16-2022 14:19-0400 Systolic blood pressure 125 mm[Hg] Pierce Rachel RISK CONTROL SPECIALIST-MANAGER [employer]IVERSITY Work Phone: [facility] 01-11-2022 14:20-0400 Diastolic blood pressure 87 mm[Hg] Yi Moreno MD Work Phone: [facility] 01-11-2022 14:20-0400 Heart rate 86 /min Yi Moreno MD Work Phone: [facility] 01-11-2022 14:20-0400 Systolic blood pressure 116 mm[Hg] Yi Moreno MD Work Phone: [facility] 01-11-2022 14:12-0400 Body height 157.5 cm Yi Moreno MD Work Phone: [facility] 01-11-2022 14:12-0400 Body mass index (BMI) [Ratio] 34.39 kg/m2 Yi Moreno MD Work Phone: [facility] 01-11-2022 14:12-0400 Body temperature 98.8 [degF] Yi Moreno MD Work Phone: [facility] 01-11-2022 14:12-0400 Body weight 85.28 kg Yi Moreno MD Work Phone: [facility] 01-11-2022 14:12-0400 Respiratory rate 18 /min Yi Moreno MD Work Phone: [facility] 01-11-2022 14:12-0400 SaO2% (BldA) [Mass fraction] 100 % Yi Moreno MD Work Phone: [facility] 01-05-2022 16:25-0400 Diastolic blood pressure 82 mm[Hg] Bertha Hirsch MD Work Phone: [facility] [employer] 01-05-2022 16:25-0400 Heart rate 87 /min Bertha Hirsch MD Work Phone: [facility] [employer] 01-05-2022 16:25-0400 Respiratory rate 16 /min Bertha Hirsch MD Work Phone: [facility] [employer] 01-05-2022 16:25-0400 SaO2% (BldA) [Mass fraction] 94 % Bertha Hirsch MD Work Phone: [facility] [employer] 01-05-2022 16:25-0400 Systolic blood pressure 122 mm[Hg] Bertha Hirsch MD Work Phone: [facility] [employer] 01-05-2022 16:00-0400 Body temperature 96.91 [degF] Bertha Hirsch MD Work Phone: [facility] 01-05-2022 13:35-0400 Body height 157.5 cm Bertha Hirsch MD Work Phone: [facility] [employer] 01-05-2022 13:21-0400 Body mass index (BMI) [Ratio] 34.06 kg/m2 Bertha Hirsch MD Work Phone: [facility] [employer] 01-05-2022 13:21-0400 Body weight 84.46 kg Bertha Hirsch MD Work Phone: [facility] 12-02-2021 15:38-0400 Body height 157.48 cm Gena Kirby Work Phone: [facility] 250 DO Work Phone: 12-02-2021 15:38-0400 Body mass index (BMI) [Ratio] 33.47 kg/m2 Gena Kirby Work Phone: [facility] 250 DO Work Phone: 12-02-2021 15:38-0400 Body surface area Derived from formula 1.84 m2 Gena Kirby Work Phone: [facility] 250 DO Work Phone: 12-02-2021 15:38-0400 Body weight 83.01 kg Gena Camachoholz Work Phone: [facility] 250 DO Work Phone: 12-02-2021 15:38-0400 Diastolic blood pressure 70 mm[Hg] Gena Maldonadohholz Work Phone: [facility] 250 DO Work Phone: 12-02-2021 15:38-0400 Heart rate 72 /min Gena Jang Aichholz Work Phone: [facility] 250 DO Work Phone: 12-02-2021 15:38-0400 Systolic blood pressure 92 mm[Hg] Gena Maldonadohholz Work Phone: [facility] 250 DO Work Phone: 11-09-2021 15:15-0400 Body height 157.48 cm Wiley Mcmanus Other [employer] Other 11-09-2021 15:15-0400 Body mass index (BMI) [Ratio] 32.55 kg/m2 Wiley Mcmanus Other [employer] Other 11-09-2021 15:15-0400 Body temperature 98.5 [degF] Wiley Mcmanus Other [employer] Other 11-09-2021 15:15-0400 Body weight 80.74 kg Wiley Mcmanus Other [employer] Other 11-09-2021 15:15-0400 Diastolic blood pressure 81 mm[Hg] Wiley Mcmanus Other [employer] Other 11-09-2021 15:15-0400 SaO2% (BldA) [Mass fraction] 94 % Wiley Mcmanus Other [employer] Other 11-09-2021 15:15-0400 Systolic blood pressure 122 mm[Hg] Wiley Mcmanus Other [employer] Other 10-14-2021 15:34-0500 Diastolic blood pressure 98 mm[Hg] Gena Camachoholz Work Phone: [facility] 250 DO Work Phone: 10-14-2021 15:34-0500 Systolic blood pressure 152 mm[Hg] Gena Maldonadohholz Work Phone: [facility] 250 DO Work Phone: 10-14-2021 15:23-0500 Body height 157.48 cm Gena Camachoholz Work Phone: [facility] 250 DO Work Phone: 10-14-2021 15:23-0500 Body mass index (BMI) [Ratio] 33.47 kg/m2 Gena Camachoholz Work Phone: [facility] 250 DO Work Phone: 10-14-2021 15:23-0500 Body surface area Derived from formula 1.84 m2 Gena Maldonadohholz Work Phone: [facility] 250 DO Work Phone: 10-14-2021 15:23-0500 Body weight 83.01 kg Gena Maldonadohholz Work Phone: [facility] 250 DO Work Phone: 10-14-2021 15:23-0500 Diastolic blood pressure 98 mm[Hg] Gena Maldonadohholz Work Phone: [facility] 250 DO Work Phone: 10-14-2021 15:23-0500 Heart rate 78 /min Gena Jang Aichholz Work Phone: [facility] 250 DO Work Phone: 10-14-2021 15:23-0500 Systolic blood pressure 160 mm[Hg] Gena Jang Aichholz Work Phone: [facility] 250 DO Work Phone: 10-14-2021 15:23-0500 16 1 Gena Jang Aichholz Work Phone: [facility] 250 DO Work Phone: Comment on above: PHQ-9 TS Encounters Encounter Date Encounter Type Care Provider Facility Start: 01-25-2024 End: 01-25-2024 ambulatory GENA KIRBY Not Available Start: 12-29-2023 End: 12-29-2023 ambulatory Gena Sina Maldonadohholz Facility:[facility] Start: 12-29-2023 End: 12-29-2023 ambulatory Gena Sina Maldonadohholz Work Phone: [facility] Work Phone: Start: 12-29-2023 End: 12-29-2023 Departed Referred Gena Kirby Work Phone: [facility]-LAB Path Spec Loc Hosp Start: 12-28-2023 End: 12-28-2023 ambulatory MAJO CATALAN [facility] Start: 12-16-2023 End: 12-16-2023 ambulatory Gena J Joelhholz Facility:[facility] Start: 12-16-2023 End: 12-16-2023 ambulatory Gena J Aichholz Work Phone: [facility] Work Phone: Start: 12-16-2023 End: 12-16-2023 Patient encounter procedure Genasue Camachoholz Work Phone: [facility]-Sleep Lab Work Phone: Start: 12-14-2023 End: 12-14-2023 ambulatory Gena J Aichholz Work Phone: [facility] Work Phone: Start: 12-14-2023 End: 12-14-2023 Patient encounter procedure Gena Aichholz Work Phone: [facility]-Sleep Lab Work Phone: Start: 12-12-2023 End: 12-12-2023 ambulatory Gena J Aichholz Work Phone: [facility] Work Phone: Start: 12-12-2023 End: 12-12-2023 Patient encounter procedure Gena Aichholz Work Phone: [facility] Work Phone: Start: 11-24-2023 End: 11-24-2023 ambulatory MAJO Andino [facility] Start: 11-22-2023 End: 11-22-2023 ambulatory ROSHNI ANDERS Not Available Start: 11-02-2023 End: 11-02-2023 Patient encounter procedure Gena Joelhholz Work Phone: [facility] Work Phone: Start: 10-14-2023 End: 10-14-2023 ambulatory Gena J Aichholz Work Phone: [facility] Work Phone: Start: 10-14-2023 End: 10-14-2023 Patient encounter procedure Gena Aichholz Work Phone: [facility] [place] Work Phone: Start: 10-11-2023 End: 10-11-2023 ambulatory MAJO Andino [facility] Start: 09-29-2023 End: 10-02-2023 ambulatory ELIN [facility] Start: 09-20-2023 End: 09-20-2023 ambulatory Gena J Joelhholz Facility:[facility] Start: 09-20-2023 End: 09-20-2023 Patient encounter procedure Gena Aichholz Work Phone: [facility]-Sleep [facility] Work Phone: Start: 09-20-2023 End: 09-20-2023 ambulatory Gena J Aichholz Work Phone: [facility] Work Phone: Start: 09-20-2023 Office outpatient vi sit 25 minutes Wiley Mcmanus [facility] Start: 09-20-2023 End: 09-20-2023 Patient encounter procedure Gena Aicnicanorholz Work Phone: [facility]- Start: 09-15-2023 End: 09-16-2023 ambulatory ELIN [facility] Start: 08-26-2023 End: 08-26-2023 ambulatory [facility] Start: 08-24-2023 End: 08-24-2023 ambulatory GENA JOELHHOLZ Not Available Start: 08-12-2023 End: 08-12-2023 ambulatory Imad Asaad Other [employer] Other Start: 08-12-2023 Telephone encounter Imad Asaad [facility] Start: 08-10-2023 End: 08-10-2023 ambulatory Imad Asaad Other [employer] Other Start: 08-10-2023 Telephone encounter Imad Asaad [facility] Start: 08-08-2023 End: 08-08-2023 ambulatory Gena J Aichholz Facility:[facility] Start: 08-08-2023 End: 08-08-2023 Admission to same day surgery center Gena Joelhholz Work Phone: [facility]-Digestive [facility] Work Phone: Start: 08-08-2023 End: 08-08-2023 ambulatory Gena Kirby Work Phone: [facility] Work Phone: Start: 06-30-2023 End: 06-30-2023 Patient encounter procedure Gena Kirby Work Phone: [facility]-Lab Main [place] Work Phone: Start: 06-30-2023 End: 06-30-2023 ambulatory Gena Kirby Work Phone: [facility] [employer] Other Start: 06-30-2023 Office outpatient ne w 30 minutes Majo Lyman [facility] Start: 06-30-2023 End: 06-30-2023 Patient encounter procedure Gena Kirby Work Phone: [facility] Work Phone: Start: 06-07-2023 End: 06-07-2023 ambulatory Louise Johnson Other [employer] Other Start: 06-07-2023 Encounter by nat r link Louise Johnson [facility] [place] Start: 06-07-2023 Office outpatient vi sit 25 minutes Louise Johnson [facility] Start: 03-16-2023 End: 03-16-2023 ambulatory Wiley Mcmanus Facility:[facility] Start: 03-16-2023 End: 03-16-2023 ambulatory Gena Mcdonnellz Work Phone: [facility] Work Phone: Start: 03-16-2023 End: 03-16-2023 Patient encounter procedure Gena Mcdonnellz Work Phone: [facility]-Sleep Lab Work Phone: Start: 03-08-2023 End: 03-11-2023 ambulatory ELIN [facility] Start: 02-21-2023 End: 02-21-2023 ambulatory HERMES MORENO MD~[id number] [facility] Start: 01-26-2023 Telephone encounter Rikki norris DMD, MD Work Phone[facility] Start: 01-18-2023 ambulatory BRIAN KIRBY Facil ity:[facility] Start: 12-13-2022 End: 12-14-2022 ambulatory ELIN [facility] Start: 12-13-2022 End: 12-13-2022 Subsequent hospital visit by physician Gena Kirby Work Phone: [facility] Laboratory Comment on above: OAB (overactive blad darinel); Urge incontinence; Frequency of urination Start: 11-26-2022 End: 11-26-2022 ambulatory BRIAN CAMACHODIA Facility:[facility] Start: 11-16-2022 End: 11-16-2022 ambulatory Gena Andino [place] Work Phone: [facility] Work Phone: Start: 11-16-2022 End: 11-16-2022 Patient encounter procedure Gena Kofi Work Phone: [facility]-Sleep Lab Work Phone: Start: 11-12-2022 End: 11-12-[address] OSWALD HARRINGTON . Facility:[facility] Start: 11-04-2022 Telephone encounter Yi wylie MD Work Phone: [facility] Ot[facility] (ENT[facility] Start: 11-01-2022 Encounter for preprocedural cardiovascular examination DR OSWALD HARRINGTON . [facility] Start: 11-01-2022 Telephone encounter Rikki norris DMD, MD Work Phone: [facility] Oral Surgery Start: 10-28-2022 End: 10-29-[address] OSWALD HARRINGTON . Facility:[facility]1 Start: 10-28-2022 End: 10-29-2022 Encounter for preprocedural cardiovascular examination DR OSWALD HARRINGTON . Facility:[facility]1 Start: 10-19-2022 End: 10-19-2022 ambulatory UNKNOWN PROVIDER Facility:[facility] Start: 09-24-[address] OSWALD HARRINGTON . Facili ty:[facility]1 Start: 09-21-[address] OSWALD HARRINGTON . Facili ty:[facility]1 Start: 09-02-2022 End: 09-03-2022 ambulatory BRIAN KIRBY Facility:[facility] Start: 08-30-2022 ambulatory UNKNOWN PROVIDER Facili ty:[facility] Start: 08-30-2022 End: 08-30-2022 Follow-up encounter Rikki Rodrigues DMD, MD Work Phone: [facility] Oral Surgery Start: 08-30-2022 End: 08-30-2022 Patient encounter procedure Rikki Rodrigues DMD, MD Work Phone: [facility] Oral Surgery Comment on above: Post-operative state (Primary Dx) Start: 08-12-2022 End: 08-12-2022 Subsequent hospital visit by physician Gena Kirby Work Phone: [facility] Laboratory Comment on above: Dysuria Start: 08-11-2022 Telephone encounter Jerel Villegas DDS Work Phone: [facility] Oral Surgery Start: 08-02-2022 Telephone encounter Rikki norris DMD, MD Work Phone: [facility] Oral [facility] Start: 07-28-2022 Telephone encounter Mikal amador DMD Work Phone: [facility] Start: 07-23-2022 End: 07-23-2022 Follow-up encounter Rikki Rodrigues DMD, MD Work Phone: [facility] Start: 07-23-2022 End: 07-23-2022 Telemedicine consultation with patient Rikki Rodrigues DMD, MD Work Phone: [facility] Oral Surgery Comment on above: DIONNE (obstructive sle ep apnea) (Primary Dx) Start: 07-23-2022 End: 07-23-2022 ambulatory UNKNOWN PROVIDER Facility:[facility] Start: 07-14-2022 End: 07-17-2022 Evaluation and management of inpatient RIKKITHADDEUS RODRIGUES [facility] Start: 07-14-2022 End: 07-15-2022 ambulatory RIKKI RODRIGUES Facility:[facility] Start: 07-14-2022 End: 07-14-2022 Subsequent hospital visit by physician Rikki Rodrigues DMD, MD Work Phone: [facility] Radiology Comment on above: Arrived Start: 07-14-2022 End: 07-17-2022 Evaluation and management of inpatient Rikki Rodrigues DMD, MD Work Phone: [facility] Comment on above: DIONNE (obstructive sle ep apnea) (Primary Dx); Pain Start: 07-09-2022 Telephone encounter Yi wylie MD Work Phone: [facility] Otolaryngology (ENT) Comment on above: Patient questions/co ncerns (Patient asking what next step is after jaw surgery) Start: 07-08-2022 End: 07-09-2022 ambulatory UNKNOWN PROVIDER Facility:[facility] Start: 07-08-2022 End: 07-09-2022 Office outpatient new 45 minutes Gena Holbrook APRN-MANAGER UNIVERSITY Work Phone: [facility] Pre Surgical Evaluation Comment on above: Pre-op testing (Prim amy Dx); Body mass index (BMI) 35.0-35.9, adult Start: 07-08-2022 End: 07-09-2022 Patient encounter status Gena Holbrook APRN-MANAGER UNIVERSITY Work Phone: [facility] Pre Surgical Evaluation Start: 07-07-2022 End: 07-08-2022 ambulatory BRIAN KIRBY Facility: Start: 07-06-2022 End: 07-06-2022 Patient encounter procedure Pierce Ramos APRN-MANAGER [employer]IVERSITY Work Phone: [facility] [place] Pre-Surgical Evaluation Comment on above: ENCOUNTER OPENED IN ERROR (Primary Dx) Start: 07-05-2022 Telephone encounter Mary guy RN [facility] Pre Surgical Evaluation Comment on above: Pre-surgical Evaluat ion (Pre-op COVID testing not needed ) Start: 07-02-2022 End: 07-06-2022 ambulatory UNKNOWN PROVIDER Facility:[facility] Start: 07-02-2022 End: 07-02-2022 Follow-up encounter Rikki Rodrigues DMD, MD Work Phone: [facility] Oral Surgery Start: 07-02-2022 End: 07-02-2022 Patient encounter procedure Rikki Rodrigues DMD, MD Work Phone: [facility] Oral Surgery Comment on above: DIONNE (obstructive sle ep apnea) (Primary Dx) Start: 06-18-2022 End: 06-20-2022 Office outpatient new 30 minutes Rikki Rodrigues DMD, MD Work Phone: [facility] Oral Surgery Comment on above: Obstructive sleep ap shaun (Primary Dx); DIONNE (obstructive sleep apnea); Body mass index (BMI) 34.0-34.9, adult Start: 06-18-2022 End: 06-20-2022 Orders Only Saleem Mi CHAU Work Phone: [facility] Oral Surgery Start: 06-15-2022 End: 06-15-2022 ambulatory UNKNOWN PROVIDER Facility:[facility] Start: 06-03-2022 End: 06-03-2022 ambulatory YI MORENO Facility:[facility] Start: 05-31-2022 End: 05-31-2022 ambulatory Isabel Sin Other [employer] Other Start: 05-31-2022 Office outpatient vi sit 5 minutes Isabel Sin [facility] Start: 05-28-2022 Telephone encounter Mary guy RN [facility] Pre Surgical Evaluation Comment on above: Pre-surgical Evaluat ion (Pre-op COVID testing) Start: 05-28-2022 ambulatory UNKNOWN PROVIDER Facili ty:[facility] Start: 05-28-2022 End: 05-28-2022 Nursing evaluation of patient and report Pse Rn [facility] Pre Surgical Evaluation Comment on above: Preop examination (P rimary Dx) Start: 05-28-2022 End: 05-28-2022 [facility]procedural examination done Pse R[facility] Start: 05-26-2022 Telephone encounter Mary guy RN [facility] Pre Surgical Evaluation Comment on above: Pre-surgical Evaluat ion (Pre-op COVID testing) Start: 05-19-2022 End: 05-19-2022 ambulatory Gena Andino Kofi Work Phone: [facility] Work Phone: Start: 05-19-2022 End: 05-19-2022 Patient encounter procedure Gena Kofi Work Phone: [facility]-Sleep Lab Start: 05-18-2022 Letter encounter Yi saunders MD Work Phone: [facility] Otolaryngology (ENT) Start: 05-17-2022 End: 05-18-[address] WILEY POE Facility:[facility]1 Start: 05-11-2022 End: 05-12-[address] OSWALD HARRINGTON . Facility:[facility] Start: 05-07-2022 End: 05-08-[address] OSWALD HARRINGTON . Facility: Start: 03-29-2022 End: 03-30-2022 Phys/qhp telephone evaluation 11-20 min Yi Moreno MD Work Phone: [facility] [place] Otolaryngology (ENT) Comment on above: DIONNE (obstructive sle ep apnea) (Primary Dx) Start: 03-29-2022 End: 03-30-2022 ambulatory UNKNOWN PROVIDER Facility:[facility] Start: 03-09-2022 End: 03-10-2022 ambulatory BRIAN MERCADOA KOFI Facility:[facility]1 Start: 03-09-2022 Telephone encounter Yi wylie MD Work Phone: [facility] Otolaryngology (ENT) Start: 02-25-2022 End: 02-26-2022 Evaluation and management of inpatient YI MORENO [facility] Start: 02-25-2022 End: 02-26-2022 Subsequent hospital visit by physician Yi Moreno MD Work Phone: Inpatient 8B Comment on above: Encounter for [facility] trace testing for severe acute respiratory syndrome coronavirus 2 (SARS-CoV-2) (Primary Dx); DIONNE (obstructive sleep apnea); Postoperative pain Start: 02-24-2022 Telephone encounter Mary guy RN [facility] Pre Surgical Evaluation Comment on above: Pre-surgical Evaluat ion (Pre-op COVID testing - results) Start: 02-23-2022 End: 02-24-[address] DOCTOR ABDULLAHI Facility: Start: 02-19-2022 End: 02-21-2022 Subsequent hospital visit by physician Yaneth Sharp Dr Room 2 [facility] Radiology Comment on above: Ureteral stone Start: 02-17-2022 Telephone encounter Mary guy RN [facility] Pre Surgical Evaluation Comment on above: Pre-surgical Evaluat ion (Pre-op COVID testing) Start: 02-16-2022 End: 02-18-2022 ambulatory UNKNOWN PROVIDER Facility:[facility] Start: 02-16-2022 Encounter for other preprocedural examination UNKNOWN PROVIDER [facility] Start: 02-16-2022 End: 02-17-2022 Office outpatient new 45 minutes Pierce Ramos RISK CONTROL SPECIALIST-MANAGER [employer]IVERSITY Work Phone: [facility] Pre-Surgical Evaluation Comment on above: Preop testing (Prima ry Dx); Abnormal electrocardiogram (ECG) (EKG); Body mass index (BMI) 32.0-32.9, adult Start: 02-16-2022 End: 02-17-2022 Patient encounter status Pierce Ramos APRN-MANAGER [employer]IVERSITY Work Phone: [facility] Pre-Surgical Evaluation Start: 02-16-2022 Telephone encounter Yi wylie MD Work Phone: [facility] Otolaryngology (ENT) Start: 02-11-2022 Telephone encounter Mary guy RN [facility] Pre Surgical Evaluation Comment on above: Pre-surgical Evaluat ion (Pre-op COVID testing) Start: 02-04-2022 Letter encounter Yi saunders MD Work Phone: [facility] Otolaryngology (ENT) Start: 01-12-2022 End: 01-12-2022 ambulatory Wiley Mcmanus Other [employer] Other Start: 01-12-2022 Telephone encounter Wiley Mcmanus [facility] Sleep [facility] Start: 01-11-2022 End: 01-11-2022 Office consultation new/estab patient 60 min Yi Moreno MD Work Phone: [facility] Otolaryngology (ENT) Comment on above: DIONNE (obstructive sle ep apnea) (Primary Dx); Body mass index (BMI) 34.0-34.9, adult Start: 01-05-2022 End: 01-05-2022 Subsequent hospital visit by physician Bertha Hirsch MD Work Phone: [facility] OR Start: 12-30-2021 End: 12-30-2021 Patient encounter status Gena Kirby Work Phone: [facility] Laboratory Start: 12-30-2021 End: 12-30-2021 Subsequent hospital visit by physician Gena Kirby Work Phone: [facility] Laboratory Comment on above: Pre-op testing Start: 12-22-2021 End: 12-24-2021 Subsequent hospital visit by physician [facility] Radiology Comment on above: Kidney stones Start: 12-02-2021 Office outpatient vi sit 10 minutes Gena Kirby Work Phone: [facility] 250 DO Work Phone: Start: 11-09-2021 End: 11-09-2021 ambulatory Wiley Mcmanus Other [employer] Other Start: 11-09-2021 Office outpatient vi sit 40 minutes [facility] Start: 10-14-2021 Office outpatient vi sit 25 minutes Gena Kirby Work Phone: [facility] 250 DO Work Phone: Procedures Date Procedure Procedure Detail Performing Clinician Start: 12-14-2023 End: 12-14-2023 Diagnostic radiography of abdomen Gena Fleming linda Work Phone: Start: 10-14-2023 COVID/Influenza PCR (POC) Gena Camachodia Work Phone: Start: 08-08-2023 Colonoscopy Gena Camachofreddythong Work Phone: Start: 12-13-2022 Urnls dip stick/tablet reagent auto microscopy Elin Lorenz RISK CONTROL SPECIALIST - MANAGER [employer]IVERSITY Work Phone: Start: 08-12-2022 Urnls dip stick/tablet [...] Start: 07-15-2022 Blood count complete automated Oliver Genna mora DMD Work Phone: Start: 07-14-2022 Glucose [...] Phone: Start: 07-14-2022 Urine test visual color cmpchunn migel Mi DMD Work Phone: Start: 07-14-2022 Glucose blood reagent strip Rikki frey DMD, MD Work Phone: Start: 07-08-2022 Blood typing serologic abo Gena DEL CASTILLO RN-MANAGER UNIVERSITY Work Phone: Start: 07-08-2022 Blood count complete automated Gena vasquez RISK CONTROL SPECIALIST-MANAGER [employer]ERS[employer] Work Phone: Start: 07-08-2022 Blood typing, ABO, Rho(D) and RBC antibody screening Gena Holbrook APRN-MANAGER [employer]IVERSITY Work Phone: Start: 06-18-2022 panoramic radiographic image [...] lds trcg only w/o i&r Pierce Ramos RISK CONTROL SPECIALIST-MANAGER [employer]IVERS[employer] Work Phone: Start: 01-11-2022 Laryngoscopy flexible diagnostic Yi Moreno MD Work Phone: Start: 01-05-2022 Fluoroscopy during operation Bertha john MD Work Phone: Start: 01-05-2022 Urine test visual color cmprsn meths Majo Rodrigues RISK CONTROL SPECIALIST - CAR DRIVER Start: 12-30-2021 Basic metabolic panel calcium total [...] 2) Shingles (RZV) Vaccine (1 of 2) [facility] Start: 08-08-2023 [facility] Start: 03-22-2023 Influenza vaccination Flu vaccine (Season Ended) [facility] Start: 02-21-2023 End: 02-21-2023 Patient encounter procedure 02/21/2023 Office Visit Urology [facility] UROLOGY [facility] Start: 12-21-2022 Cholesterol [Mass/volume] in Serum or Plasma Cholesterol [facility] Start: 10-19-2022 End: 10-19-2022 Patient encounter procedure 10/19/2022 Office Visit Ent-Otolaryngology Yi Moreno MD [address] [place] [id number] [facility] Otolaryngology (ENT) Start: 08-13-2022 End: 08-13-2022 Patient encounter procedure 08/13/2022 Office Visit Or al Surgery Rikki Rodrigues DMD, MD [address] [place] [id number] [facility] Oral Surgery Start: 07-30-2022 End: 07-30-2022 Patient encounter procedure 07/30/2022 Office Visit Or al Surgery Rikki Rodrigues DMD, MD [address] [place] [address] [facility] Oral Surgery Start: 07-23-2022 End: 07-23-2022 Telemedicine consultation with patient 07/23/2022 Telemedicine Oral Surgery Rikki Rodrigues DMD, MD [address] [place] [phone] [facility] Oral Surgery Start: 07-14-2022 End: 07-14-2022 Admission to same day surgery center 07/14/2022 Surgery General Surgery Rikki Rodrigues DMD, MD [address] [place] [phone] LEFORTE I OSTEOTOMY [facility] Main OR Comment on above: LEFORTE I [...] Encounter General Surgery Rikki Rodrigues DMD, MD [address] [place] [phone] [facility] Start: 07-14-2022 End: 07-14-2022 Admission to same day surgery center 07/14/2022 Surgery General Surgery Rikki Rodrigues DMD, MD [address] [place] [phone] LEFORTE I OSTEOTOMY [facility] Main OR Comment on above: LEFORTE I OSTEOTOMY Start: 07-14-2022 End: 07-14-2022 Anesthesia consultation 07/14/2022 Anesthesia Event General Surgery Ki Atwood MD [address] [place] [phone] [facility] Main OR Start: 07-14-2022 End: 07-14-2022 LEFORTE [...] Encounter General Surgery Rikki Rodrigues DMD, MD [address] [place] [phone] [facility] Main OR Start: 07-08-2022 End: 07-08-2022 Patient encounter procedure 07/08/2022 Office Visit Presurgical Evaluation Gena Holbrook APRN-CNP [address] [place] [phone] [facility] Pre Surgical Evaluation Start: 07-06-2022 End: 07-06-2022 Patient encounter procedure 07/06/2022 Office Visit Presurgical Evaluation Pierce Ramos, RISK CONTROL SPECIALIST-MANAGER UNIVERSITY [address] [place] [phone] Preop testing (Primary Dx) [facility] Pre-Surgical Evaluation Comment on above: Preop testing (Primary Dx) Start: 06-15-2022 End: 06-15-2022 Patient encounter procedure 06/15/2022 Office Visit Ent-Otolaryngology Yi Moreno MD [address] [place] [phone] [facility] Otolaryngology (ENT) Start: 06-03-2022 End: 06-03-2022 Admission to same day surgery center 06/03/2022 Surgery Ambulatory Surgery Yi Moreno MD [address] [place] [phone] BRONCHOSCOPY, FLEXIBLE, DRUG INDUCED SLEEP ENDOSCOPY (DISE) [facility] Main OR PACU Comment on above: BRONCHOSCOPY, FLEXIBLE, DRUG INDUCED SLE EP ENDOSCOPY (DISE) Start: 06-03-2022 End: 06-03-2022 BRONCHOSCOPY, FLEXIBLE, DRUG INDUCED SLEEP ENDOSCOPY (DISE) BRONCHOSCOPY, FLEXIBLE, DRUG INDUCED SLEEP ENDOSCOPY (DISE) Routine scheduled DIONNE (obstructive sleep apnea) 06/03/2022 8:39 AM EDT PACU Procedure Rooms Start: 06-03-2022 Subsequent hospital visit by physician [facility] Main OR PACU Comment on above: Encounter for laboratory testing for sev ere acute respiratory syndrome coronavirus 2 (SARS-CoV-2) (Primary Dx) Start: 05-28-2022 End: 05-28-2022 Nursing evaluation of patient and report 05/28/2022 Nurse Visit Presurgical Evaluation [facility] Pre Surgical Evaluation Start: 05-22-2022 Influenza vaccination Influenza Vaccine (#1) [facility] Start: 04-22-2022 Influenza vaccination [facility] Start: 03-29-2022 End: 03-29-2022 Telemedicine consultation with patient 03/29/2022 Telemedicine Ent-Otolaryngology Yi Moreno MD [address] [place] [phone] [facility] [place] Otolaryngology (ENT) Start: 03-24-2022 FUV, Provider: Eileen Nichols, Status: Pen, Time: 3:50 PM FUV, Provider: Eileen Nichols, Status: Pen, Time: 3:50 PM [facility] 250 DO Work Phone: Start: 03-22-2022 Influenza vaccination [facility] Start: 02-25-2022 End: 02-25-2022 Admission to same day surgery center 02/25/2022 Surgery General Surgery Yi Moreno MD [address] [place] [phone] UVULOPALATOPHARYNGOPLASTY [facility] Main OR Comment on above: UVULOPALATOPHARYNGOPLASTY Start: 02-25-2022 Subsequent hospital visit by physician [facility] Main OR Comment on above: Encounter for laboratory testing for sev ere acute respiratory syndrome coronavirus 2 (SARS-CoV-2) (Primary Dx) Start: 02-25-2022 End: 02-25-2022 UVULOPALATOPHARYNGOPLASTY [facility] Start: 02-25-2022 End: 02-25-2022 Admission to same day surgery center 02/25/2022 Surgery General Surgery Yi Moreno MD [address] [place] [phone] UVULOPALATOPHARYNGOPLASTY [facility] Main OR Comment on above: UVULOPALATOPHARYNGOPLASTY Start: 02-25-2022 Subsequent hospital visit by physician 02/25/2022 Hospital Encounter General Surgery Yi Moreno MD [address] [place] [address] Encounter for laboratory testing for severe acute respiratory syndrome coronavirus 2 (SARS-CoV-2) (Primary Dx) [facility] Main OR Comment on above: Encounter for laboratory testing for sev ere acute respiratory syndrome coronavirus 2 (SARS-CoV-2) (Primary Dx) Start: 02-25-2022 End: 02-25-2022 UVULOPALATOPHARYNGOPLASTY UVULOPALATOPHARYNGOPLASTY Routine scheduled DIONNE (obstructive sleep apnea) 02/25/2022 9:20 AM EDT [facility] Start: 02-23-2022 End: 02-23-2022 Patient encounter procedure 02/23/2022 Office Visit Urology Elin Lorenz RISK CONTROL SPECIALIST - MANAGER [employer]IVERSITY [address] [place] [phone] [facility] Start: 02-16-2022 End: 02-16-2022 Patient encounter procedure 02/16/2022 Office Visit Presurgical Evaluation Pierce Ramos RISK CONTROL SPECIALIST-MANAGER UNIVERSITY [address] [address] [facility] [place] Pre-Surgical Evaluation Start: 01-08-2022 End: 01-08-2022 Patient encounter procedure 01/08/2022 Office Visit Urology Elin Lorenz RISK CONTROL SPECIALIST - MANAGER [employer]IVERS[employer] [address] [place] [phone] [facility] Start: 01-05-2022 End: 01-05-2022 Cysto/uretero w/lithotripsy &indwell stent insrt CYSTOSCOPY URETEROSCOPY LASER KIDNEY STONES 01/05/2022 2:57 PM EDT [facility] Start: 12-06-2021 COVID-19 Vaccine (3 - Booster for Pfizer series) COVID-19 Vaccine (3 - Booster for Pfizer series) [facility] Start: 12-01-2021 NURSEVST, Provider: AUSTIN WALL TAB CARD PRESS OPERATOR [id number], Status: Pen, Time: 3:15 PM NURSEVST, Provider: AUSTIN WALL TAB CARD PRESS OPERATOR 1,[id number], Status: Pen, Time: 3:15 PM [facility] Haynes DO Work Phone: Start: 09-02-2021 COVID-19 Vaccine (3 - Booster for Pfizer series) COVID-19 Vaccine (3 - Booster for Pfizer series) [facility] Start: 2020 Cholesterol [Mass/volume] in Serum or Plasma Cholesterol [facility] Start: 2020 Screening for malignant neoplasm of colon [facility] Start: 2015 Lipid panel Lipids [facility] Start: 2015 Screening for malignant neoplasm of breast [facility]amm[facility] Start: 2010 Diabetes screen Diabetes screen [facility] Start: 2005 Screening for malignant neoplasm of cervix [facility] Start: 1996 Screening for malignant neoplasm of cervix Pap smear [facility] Start: 1994 DTaP/Tdap/Td vaccine (1 - Tdap) DTaP/Tdap/Td vaccine (1 - Tdap) [facility] Start: 1993 Creatinine measurement Creatinine [facility] Start: 1993 Hepatitis C screening [facility] Start: 1993 Potassium [Moles/volume] in Serum or Plasma Potassium [facility] Start: 1993 Tetanus + diphtheria + acellular pertussis vaccine (product) Tdap Booster [facility] Start: 1990 HIV screening [facility] Start: 1987 Depression Monitoring Depression Monitoring [facility] Start: 1975 Screening for malignant neoplasm of colon Colonoscopy [facility] Assay of magnesium MAGNESIUM Lab STAT [...] (DISE) Routine scheduled DIONNE (obstructive sleep apnea) [facility] Calprotectin [Mass/m ass] in Stool [facility] CBC panel - Blood by Automated count COMPLETE BLOOD COUNT Lab STAT Daily until discontinued starting 07/16/2022, 2 completed [employer] Work Phone: Comment on above: Daily until discontinued starting 2021, 2 completed End: 08-12-2022 Culture, Urine Lessno Work Phone: Comment on above: 1 Occurrences starting 08/12/2022 until 08/12/2022 End: 12-13-2022 Culture, Urine Lessno Work Phone: Comment on above: 1 Occurrences starting 12/13/2022 until 12/13/2022 Diagnostic radiograp hy of abdomen [facility] End: 07-14-2022 Ecg routine ecg w/least 12 lds trcg only w/o i&r EKG 12 LEAD - PERFORM MUSE Routine Once for 1 Occurrences starting 07/14/2022 until 07/14/2022 [employer] Work Phone: Comment on above: Once for 1 Occurrences starting 07/14/20 until 07/14/2022 Elastase.pancreatic [Mass/mass] in Stool [facility] Endomysial antibody IgA level [facility] Gliadin peptide IgA Ab [Units/volume] in Serum [facility] Gliadin peptide IgG Ab [Units/volume] in Serum [facility] HIV 1+2 Ab+HIV1 p24 Ag [Presence] in Serum or Plasma by Immunoassay [facility] IgA [Mass/volume] in Serum or Plasma [facility] End: 01-05-2022 INITIATE PACU OXYGEN THERAPY PROTOCOL Initiate PACU Oxygen Therapy Protocol Respiratory Care Routine Continuous until discontinued starting 01/05/2022 [employer] Comment on above: Continuous until discontinued starting 0 01/05/2022 Oxygen therapy [[facility] city Data Set] Initiate Oxygen Therapy Protocol Respiratory Care Routine As Needed until discontinued starting 01/05/2022 [employer] Work Phone: Comment on above: As Needed until discontinued starting End: 02-25-2022 Palatopharyngoplasty PALATOPHARYNGOPLASTY Procedures Routine One time for 1 Occurrences starting 02/25/2022 until 02/25/2022 [employer] Comment on above: One time for 1 Occurrences starting 02/2022 until 02/25/2022 Patient Education Hemorrhoids (DC) [facility] Work Phone: Rcnstj midface lefor t i 1 piece w/o bone graft RECONSTRUCTION MIDFACE, LEFORT I; 1 PIECE, W/O BONE GRAFT Procedures Routine DIONNE (obstructive sleep apnea) Ordered: 07/14/2022 [employer] Work Phone: Comment on above: Ordered: 07/14/2022 Rcnstj mndblr rami&/ bdy sgtl splt w/int rgd fi RECONSTRUCTION, MANDIBULAR RAMI &/OR BODY, SAGITTAL SPLIT; W/INT RIGID FIXATION Procedures Routine DIONNE (obstructive sleep apnea) Ordered: 07/14/2022 [employer] Comment on above: Ordered: 07/14/2022 End: 03-17-2022 SARS-CoV-2 (COVID-19) RNA [Presence] in Unspecified specimen by JOHNNIE with probe detection NOVEL CORONAVIRUS (COVID-19) Lab STAT Encounter for laboratory testing for severe acute respiratory syndrome coronavirus 2 (SARS-CoV-2) 1 Occurrences starting 02/15/2022 until 03/17/2022 [employer] Work Phone: Comment on above: 1 Occurrences starting 02/15/2022 until 03/17/2022 Surgical pathology procedure [employer] Work Phone: Comment on above: Release Upon Ordering for 1 Occurrences starting 02/25/2022, 1 completed Tissue transglutamin ase IgA Ab [Units/volume] in Serum [facility] Tissue transglutamin ase IgG Ab [Units/volume] in Serum [facility] UVULOPALATOPHARYNGOPLASTY UVULOP ALATOPHARYNGOPLASTY Routine scheduled DIONNE (obstructive sleep apnea) PERIOPERATIVE SERVICES [facility] Immunizations Immunization Date Immunization Notes Care Provider Humphrey beltrán 07-08-2021 [employer] COVID-19 Vacc 30 MCG/0.3ML Intramuscular Suspension Gena Kirby Work Phone: [facility] 06-17-2021 Pfizer-BioNTech COVID-19 Vacc 30 MCG/0.3ML Intramuscular Suspension Gena Kirby Work Phone: [facility] 250 DO Work Phone: 06-27-2013 influenza virus vaccine, whole virus Gena Kirby Work Phone: [facility] 250 DO Work Phone: Payers Date Payer Category Payer Unknown [id number] 2023 Self-pay [id number] 2023 Unknown [id number] 2021 Unknown 1975 Unknown [id number] 2.16.84 0.1.750646.3.579.2.593 1975 Unknown [id number] 2.16.84 0.1.185348.3.579.2.593 1975 Unknown [id number] 2.16.84 0.1.682093.3.579.2.593 1975 Unknown [id number] 2.16.84 0.1.711465.3.579.2.593 1975 Unknown [id number] 2.16.84 0.1.967194.3.579.2.593 1975 Unknown [id number] 2.16.84 0.1.387770.3.579.2.593 1975 Unknown [id number] 2.16.84 0.1.545299.3.579.2.593 1975 Unknown [id number] 2.16.84 0.1.698644.3.579.2.593 1975 Unknown [id number] 2.16.84 0.1.697192.3.579.2.593 1975 Unknown [id number] 2.16.84 0.1.805354.3.579.2.593 1975 Unknown [id number] 2.16.84 0.1.338821.3.579.2.593 1975 Unknown [id number] 2.16.84 0.1.410720.3.579.2.593 1975 Unknown [id number] 2.16.84 0.1.177710.3.579.2.593 1975 Unknown [id number] 2.16.84 0.1.384790.3.579.2.593 1975 Unknown [id number] .1.525150.3.579.2.73 1975 Unknown [id number] . 840.1.013147.3.579.2.732 1975 Unknown [id number] . 840.1.371887.3.579.2.73 1975 Unknown [id number] . 840.1.487503.3.579.2.732 1975 Unknown [id number] 0.1.320009.3.579.2.73 1975 Unknown [id number] . 840.1.345408.3.579.2.732 1975 Unknown [id number] . 840.1.180676.3.579.2.73 1975 Unknown [id number] . 840.1.550198.3.579.2.73 1975 Unknown [id number] 840.1.910276.3.579.2.73 1975 Unknown [id number] 2.16. 840.1.030565.3.579.2.732 1975 Unknown [id number] 2.16. 840.1.123485.3.579.2.732 1975 Unknown [id number] 2.16. 840.1.809277.3.579.2.732 1975 Unknown [id number] 2.16. 840.1.344954.3.579.2.732 1975 Unknown [id number] 2.16. 840.1.088966.3.579.2.732 1975 Unknown [id number] 2.16.8 40.1.910239.3.579.2.598 1975 Unknown [id number] 2.16.8 40.1.092694.3.579.2.173 1975 Unknown [id number] 2.16.8 40.1.111805.3.579.2.173 1975 Unknown [id number] 2.16.8 40.1.502115.3.579.2.173 1975 Unknown [id number] 2.16.8 40.1.983231.3.579.2.173 1975 Unknown [id number] 2.16.8 40.1.452195.3.579.2.173 1975 Unknown [id number] 2.16.8 40.1.109092.3.579.2.1286 1975 Unknown [id number] 2.16.8 40.1.088219.3.579.2.1286 1975 Unknown [id number] 2.16.8 40.1.967777.3.579.2.1286 1975 Unknown [id number] 2.16.84 0.1.762322.3.579.2.1286 1975 Unknown [id number] 2.16.84 0.1.902013.3.579.2.1259 1975 Unknown [id number] 2.16.84 0.1.867363.3.579.2.1259 1975 Unknown [id number] 2.16.840 .1.697874.3.579.2.1259 1959 Unknown [id number] 1.2.840.949082.1.13.239.2.7.3.838691.31 5 1959 Unknown [id number] 1959 Unknown [id number] 3 Medicaid [place] Advantage [id number] 501 [id number] Unknown [id number] 2.16.8 40.1.611491.3.579.2.531 Unknown [id number] 2.16.8 40.1.843021.3.579.2.531 Unknown [id number] 2.16.8 40.1.806482.3.579.2.531 Unknown [id number] 2.16.8 40.1.212292.3.579.2.531 Unknown [id number] 2.16.8 40.1.284516.3.579.2.531 Unknown [id number] 2.16.8 40.1.161523.3.579.2.531 Unknown [id number] 2.16.8 40.1.571068.3.579.2.531 Social History Date Type Detail Facility Start: 02-16-2022 End: 06-18-2022 Occasional alcohol use Occasional alcohol use -[facility] Chunyu DO Work Phone: Comment on above: 2 bottles of pop alonso ly.; Quit 2019; Start: 11-30-2021 End: 08-08-2023 Tobacco smoking status DEIS Ex-smoker [employer] Phone: End: 01-20-2021 History of tobacco use Cigarette Smoker [employer] Phone: Start: 11-30-2021 End: 06-18-2022 Tobacco use and exposure Smokeless tobacco non-user [employer] Phone: Start: 12-22-2021 End: 12-13-2022 Alcohol intake Lifetime non-drinker (finding) [employer] Phone: Start: 11-30-2021 Tobacco Comment occasional smo ker for 2 years, she quit over a year now [employer] Phone: Start: 1975 Sex Assigned At Not on file [employer] Phone: Start: 01-05-2022 End: 12-13-2022 Tobacco Comment occasional smoker for 2 years, she quit in 2019 [employer] Phone: Start: 12-26-2021 End: 01-05-2022 Exposure to SARS-CoV-2 (event) Not sure [employer] Phone: Tobacco smoking stat [facility] Tobacco [facility] consumption [facility] Sex Assigned At [employer] Other Start: 02-16-2022 End: 10-19-2022 Alcohol intake Ex-drinker (finding) [facility] End: 01-20-2021 History of tobacco use Current smoker [facility] Start: 1975 Sex Assigned At Female F [facility] Start: 10-18-2022 History SDOH Social Connections Phone 4 [facility] Start: 10-18-2022 History SDOH Social Connections Get Together 2 [facility] Start: 10-18-2022 History SDOH Social Connections [facility] 1 [facility] Start: 10-18-2022 History SDOH Social Connections Living 7 [facility] Start: 10-18-2022 History SDOH Physica l Activity DPW 0 [facility] Start: 10-17-2022 Education 12 [facility] Procedure Code Equipment Code Equipment Origin al Text Equipment Identifier Dates Stent Uret 6 Frx 24 Cm Firm [employer] - [id number] Start: 01-05-2022 Plate Bone 4mml Holex11 Ea [id number] - [id number] Start: 07-14-2022 Screw 2.0 X 10mm Self-Tapping [facility] - [id number] Start: 07-14-2022 Pin Cross 2.0 X 5mm [facility] [id number] Start: 07-14-2022 [place] 8mm Screw [id number] Start: 07-14-2022 Goals Date Patient Goal Desired Activity /State Functional Status Date Assessment Result Facility 10-14-2021 PHQ-9 [id number] Moder ately Severe (15-19) -[facility] 250 DO Work Phone: Clinical Notes 11-09-2021 [...] improve even to the point of resolution, [employer] Other 12-18-[facility]23 [facility] Evaluation note* Encounter Date Diagnosis Assessment [...] COLONOSCOPY. Jun, Fecal urgency (ICD-10 - R15.2) [employer] Other 10-17-2023 Evaluation note* Encounter Date Diagnosis [...] treatment plan. Patient left in stable condition 17 May, 2023 Contact with and (suspected) exposure to covid-19 (ICD-10 - Z20.822) [employer] Other 06-07-2023 Telephone encounter Note* Telephone Encounter - Rikki Rodrigues DMD, MD - 01/26/2023 10:18 AM EDT Called and left voicemail for patient. Post-op Home Sleep Test reviewed from [facility], and there is considerable improvement. Pre-op AHI [...] needs referral to another [facility] -[facility] [employer] Work Phone: 1(525) 338-576206-07-2023 Miscellaneous Notes* Telephone Encounter - Rikki Rodrigues DMD, MD - 01/26/2023 10:18 AM EDT Called and left voicemail for patient. Post-op Home Sleep Test reviewed from [facility], and there is considerable improvement. Pre-op AHI [...] needs referral to another [facility] documented in this [id number] NoteOPERATIVE NOTE OPERATION DATE: 11/12/2022 PROCEDURE: Robotic assisted laparoscopic salpingectomy. PREOPERATIVE DIAGNOSIS: Multiparity, desires permanent sterilization. POSTOPERATIVE DIAGNOSIS: Multiparity, desires permanent sterilization. ANESTHESIA: General. SURGEON: Oswald Harrington D.O. BAND RIPSAW OPERATOR: VIRAJ Salazar URINE OUTPUT: Yellow and clear. [...] lap and needle counts were correct x2.[facility] [id number] Telephone encounter Note* Telephone Encounter - Tatiana Morris - 11/04/2022 3:51 PM EDT Opened in error [id number] Miscellaneous Notes* Telephone Encounter - Tatiana Morris - 11/04/2022 3:51 PM EDT Opened in error documented in this [id number] Telephone encounter Note* Telephone Encounter - Rikki Rodrigues DMD, MD - 11/01/2022 2:32 PM EDT Called patient and left voicemail. Advised that order for post-op PSG was faxed to [facility]. Left number to call to schedule study at her convenience ([phone]) [facility] Work Phone: 1([phone]) 171-475303-13-2023 Miscellaneous Notes* Telephone Encounter - Rikki Rodrigues DMD, MD - 11/01/2022 2:32 PM EDT Called patient and left voicemail. Advised that order for post-op PSG was faxed to [facility]. Left number to call to schedule study at her convenience ([phone]) documented in this [id number] History general Narrative - Reported* Type Description [...] counseling for depression, anxiety Hospitalization History dehydration [employer] Other 01-18-2023 History of Present illness Narrative* [...] -Complete sleep study with Dr. Mcmanus in [place], [place] in 1.5 months -Follow up with patient's general dentist, Sinan Jones DDS for denture adjustment Follow-Up: After new sleep study Follow up sooner with new or worsening symptoms. Sinan Jones DDS [address] [place] [place] [address] Wiley Mcmanus MD [facility] [address] [place] [address] Seferino Vaz DMD [facility] Resident documented in this [id number] Instructions* Patient Instructions* Wilfredo Vang DMD - 08/30/2022 12:07 PM EST With clean hands massage gums under your upper lip daily at night time No food restrictions Follow up with your dentist We will contact your Sleep Center in [place] to have a Sleep Study completed in 1.5 months. documented in this [id number] Instructions* Patient Instructions* Wilfredo Vang DMD - 08/30/2022 12:07 PM EST With clean hands massage gums under your upper lip daily at night time No food restrictions Follow up with your dentist We will contact your Sleep Center in [place] to have a Sleep Study completed in 1.5 months. documented in this [id number] History of Present illness Narrative* Seefrino VazCHAU - 08/30/2022 11:37 AM EST Images from [...] -Complete sleep study with Dr. Mcmanus in [place], [place] in 1.5 months -Follow up with patient's general dentist, Sinan Jones DDS for denture adjustment Follow-Up: PRN Follow up sooner with new or worsening symptoms. Sinan Jones DDS [facility] [address] [place] [id number] Wiley Mcmnaus MD [facility] [address] [place] [address] Seferino Vaz DMD [facility] Resident documented in this [id number] Telephone encounter Note* Telephone Encounter - Jerel [...] at this number. Jerel Villegas DDS, MD [facility]- PGY4 [phone] [facility] Work Phone: 1([phone]) [phone] Miscellaneous Notes* Telephone Encounter - Jerel Villegas [...] Jerel Villegas DDS, MD [facility]- PGY4 [phone] documented in this [id number] Telephone encounter Note* Telephone Encounter - Oliver Rogers DMD - 08/02/2022 4:26 PM EST Called pt. No answer. LVM with callback instructions. Per Dr. Rodrigues, we will not write any work excuse notes or prescribe any pain meds until pt is seenin person for follow up. Oliver Rogers DMD [facility] Work Phone: [phone]) [phone] Miscellaneous Notes* Telephone Encounter - Oliver Rogers [...] options if that is the case. Email: [email or web address] Contact pt @[phone] for questions/concerns documented in this [id number] Telephone encounter Note* Telephone Encounter - Zayda [...] options if that is the case. Email: [email or web address] Contact pt @[phone] for questions/concerns [id number] Telephone encounter Note* Telephone Encounter - Mikal [...] Oral & Maxillofacial Surgery, PGY-3 Team Pager: [phone] [employer] Work Phone: [phone] Miscellaneous Notes* Telephone Encounter - Mikal Rodgers [...] Oral & Maxillofacial Surgery, PGY-3 Team Pager: [phone] documented in this [id number] History of Present illness Narrative* Mikal Rodgers [...] Oral & Maxillofacial Surgery, PGY-3 Team Pager: [phone] documented in this [id number] History of Present illness Narrative* Saleem Mi DMD - 07/19/2022 8:28 AM EST Images from the original note were not included. Initial pre-surgical workup photos: documented in this [id number] Note* Care Plan Note - Penny Brown [...] provided. Patient discharged home with family member. [id number] Miscellaneous Notes* Care Plan Note - Penny [...] year old female Surgical Contact Serial Number: [id number] Preoperative Diagnosis: DIONNE (obstructive sleep apnea) [G47.33] Postoperative Diagnosis: * DIONNE (obstructive sleep apnea) [G47.33] Procedures: Surgical CPTs Procedures RECONSTRUCTION MIDFACE, LEFORT I; 1 PIECE, W/O BONE GRAFT RECONSTRUCTION, MANDIBULAR RAMI &/OR BODY, SAGITTAL SPLIT; W/INT RIGID FIXATION No data filed Surgeon(s): Surgeon(s): Rikki Rodrigues DMD, MD Staff: Scrub: Annelise Saeed RN; Babs Wells RN Copy Preparer Nurse: Stephanie Brannon RN; Babs Wells RN Link Trainer Maintenance Worker: Margot Ovalles DDS; Saleem Mi DMD Anesthesia: [...] were discussed with the patient and/or legal sales solutions representative. The risks, benefits and alternatives were reviewed. Questions regarding blood transfusions were answered. The patient /or the patient s legal sales solutions representative agree with the plan for transfusion of blood and/or blood components. * Anesthesia Attestation - Ki Atwood MD - 07/14/2022 7:06 AM EST Anesthesia Attestation ATTESTATION OF INFORMED CONSENT FOR ANESTHESIA Anesthesia options were discussed with the patient and/or legal sales solutions representative. The risks, benefits and alternatives were reviewed. Questions regarding anesthesia were answered. Patient and/or legal sales solutions representative knows such anesthetics and procedures may be performed by Resident physicians, Certified Anesthesiologist Assistants, or Certified Nurse Anesthetists under the supervision of a physician. The patient /or the patient s legal representativeagree with the plan for anesthesia. documented in this [id number] NoteDISCHARGE SUMMARY [address] [address] Isabelle Hewitt Date of : 1975 47 [...] 07/23/2022 2:30 PM Rikki Rodrigues DMD, MD [facility] 10/19/2022 8:45 AM Yi Moreno MD [facility] Click the Form Tab Reason for [...] of concern and please page the resident corrections cadet Do not blow your nose for 2 [...] can. Rinse your (more content not included)...[employer] [id number] Note OMFS PROGRESS NOTE Isabelle Hewitt is [...] AND Spit 2x Daily 15 mL at 07/16/222042 [...] oxymetazoline (AFRIN) 0.05 % nasal solution 2 [place] Nasal Q4H PRN sodium chloride (OCEAN) 0.65 % nasal spray 1 [place] Nasal Q1H PRN naloxone (NARCAN) 0.4 MG/ML [...] to be discharged to follow up with [facility] clinic.[facility] [id number] Hospital Discharge instructions* Discharge Instructions* Oliver Rogers DMD - 07/17/2022 9:34 AM EST INSIDE STEWARD/STEWARDESS DISCHARGE INSTRUCTIONS MEDICATIONS Pain medication should be [...] of concern and please page the resident corrections cadet Do not blow your nose for 2 [...] weeks until the bones heal QUESTIONS/CONCERNS Call mixer attendant Office [phone] documented in this [id number] History of Present illness Narrative* Wilfredo Vang DMD - 07/17/2022 8:58 AM EST Images from the original note were not included. [facility] PROGRESS NOTE Isabelle Hewitt is a 47 [...] & Spit 2x Daily 15 mL at 07/16/22 [...] oxymetazoline (AFRIN) 0.05 % nasal solution 2 [place] Nasal Q4H PRN sodium chloride (OCEAN) 0.65 % nasal spray 1 [place] Nasal Q1H PRN naloxone (NARCAN) 0.4 MG/ML injection 0.4 mg Intravenous Push PRN Assessment: Isabelle Hewtit is a 47 year old yo female who is HOD 3 for MMA for sleep apnea. She is taking adequate PO, sating appropriately at room air w/o any concerns of airway embarrassment, voiding spontaneously, normotensive. Pain is also controlled. Given these findings, patient is ok to be discharged to follow up with [facility] clinic. * Lola Wyatt RN - [...] her facial pain. No dyspnea. Seen by [facility],feel pt is ok for floor. PHYSICAL EXAM [...] Bedtime, Edita Meyer MD, 10 mg at 07/15/222123 oxyCODONE (ROXICODONE) 5 mg/5 mL oral solution, [...] ivpb, 3,000 mg, Intravenous, Q6H Antibiotic, [place] Viveros, DDS, Last Rate: 200 mL/hr at 07/16/22 [...] Daily, Oliver Rogers DMD, 5 mg at 07/16/22 0655 venlafaxine (EFFEXOR XR) 24 hour capsule, 75 mg, Oral, Daily, Oliver Rogers DMD, 75 mg at 07/16/22 0811 chlorhexidine (PERIDEX) 0.12 % oral solution, 15 mL, Swish & Spit, 2x Daily, Oliver Rogers DMD, 15 mL at 07/16/22 0811 famotidine (PEPCID) tablet, 20 mg, Oral, 2x Daily, Oliver Rogers DMD, 20 mg at 07/16/22 0811 ibuprofen (MOTRIN) tablet, 600 mg, Oral, Q6H PRN, Oliver Rogers DMD ondansetron (ZOFRAN) 4 MG/2ML injection, 4 mg, Intravenous Push, Q6H PRN, Oliver Rogers DMD docusate sodium (COLACE) capsule, 100 mg, Oral, 2x Daily, Oliver Rogers DMD, 100 mg at 07/16/22 0811 bisacodyl (DULCOLAX) 5 MG enteric coated tablet, 10 mg, Oral, Daily PRN, Oliver Rogers DMD oxymetazoline (AFRIN) 0.05 % nasal solution, 2 [place], Nasal, Q4H PRN, Oliver Rogers DMD sodium chloride (OCEAN) 0.65 % nasal spray, 1 [place], Nasal, Q1H PRN, Oliver Rogers DMD naloxone [...] mg, Intravenous Push, Every 8 hours, Oliver Rogers, DMD, 8 mg at 07/15/22 0109 ondansetron (ZOFRAN) 4 MG/2ML injection, 4 mg, Intravenous Push, Q6H PRN, Oliver Rogers DMD docusate sodium (COLACE) capsule, 100 mg, Oral, 2x Daily, Oliver Rogers DMD bisacodyl (DULCOLAX) 5 MG enteric coated tablet, 10 mg, Oral, Daily PRN, Oliver Rogers DMD oxymetazoline (AFRIN) 0.05 % nasal solution, 2 [place], Nasal, Q4H PRN, Oliver Rogers DMD sodium chloride (OCEAN) 0.65 % nasal spray, 1 [place], Nasal, Q1H PRN, Oliver Rogers DMD enoxaparin [...] 102 28 15 147 16 0.91 8.0 07/14/2244 142 3.7 Arterial Blood Gases T Site [...] discussed. Zehra Stearns MD documented in this [id number] Note* Care Plan Note - Penny Brown [...] adult patient will be met Outcome: Progressing [id number] Note* Care Plan Note - Lauren Crawford [...] adult patient will be met Outcome: Progressing [id number] Note* Care Plan Note - Alon Cotton [...] monitoring. Patient free of falls/injuries during shift. [id number] History and physical note* Zehra Stearns MD - 07/14/2022 3:58 PM EST Images from the original note were not included. Surgical ICU H&P Isabelle Hewitt [id number] HPI: Ms Hewitt is a 47 year [...] Clifford Cruz MD PGY-5 Radiology SICU Pager -[phone] [facility] Pager -[phone], Weekdays 6a-6p [place] Pager -[phone], Weekdays 6p-6a, weekends Attending Attestation I saw [...] stepdown for airway monitoring. Zehra Stearns MD [id number] History and physical note* Zehra Stearns MD - 07/14/2022 3:58 PM EST Images from the original note were not included. Surgical ICU H&P Isabelle Hewitt [id number] HPI: Ms Hewitt is a 47 year [...] Clifford Cruz MD PGY-5 Radiology SICU Pager -[phone] [facility] Surgery Pager -[phone], Week 6a-6p [place] Pager -[phone], 6p-6a, weekends Attending Attestation I saw and [...] Yes Saleem Mi DDS documented in this [id number] NoteSurgical Attestation: I have reviewed the patient's History and Physical Examination. I have personally seen and evaluated the patient, repeating ulloa portions. There is no significant interval change. Surgery is still indicated. Yes Consent reviewed and signed by patient/family: Yes Operative site verified: Yes [facility]ELIC[facility] [id number] Note* Brief Operative Note - Rikki Rodrigues DMD, MD - 07/14/2022 8:30 AM EST Brief Operative Note MAIN OR 12 Isabelle Hewitt 47 year old female Surgical Contact Serial Number: [id number] Preoperative Diagnosis: DIONNE (obstructive sleep apnea) [G47.33] Postoperative Diagnosis: * DIONNE (obstructive sleep apnea) [G47.33] Procedures: Surgical CPTs Procedures RECONSTRUCTION MIDFACE, LEFORT I; 1 PIECE, W/O BONE GRAFT RECONSTRUCTION, MANDIBULAR RAMI &/OR BODY, SAGITTAL SPLIT; W/INT RIGID FIXATION No data filed Surgeon(s): Surgeon(s): Rikki Rodrigues DMD, MD Staff: Scrub: Annelise Saeed RN; Babs Wells RN Copy Preparer Nurse: Stephanie Brannon RN; Babs Wells RN Link Trainer Maintenance Worker: Margot Ovalles DDS; Saleem Mi DMD Anesthesia: [...] Rikki Rodrigues DMD, MD 07/14/2022 12:58 PM [employer] Work Phone: 1(215) 741-853611-23-2022 History and physical note* Saleem Mi DMD - 07/14/2022 7:13 AM EST Surgical Attestation: I have reviewed the patient's History and Physical Examination. I have personally seen and evaluated the patient, repeating ulloa portions. There is no significant interval change. Surgery is still indicated. Yes Consent reviewed and signed by patient/family: Yes Operative site verified: Yes Saleem Mi DDS [employer] Work Phone: 1(289) 902-538311-23-2022 Note* Blood Attestation - Ki Atwood MD - 07/14/2022 7:06 AM EST Blood Attestation ATTESTATION OF INFORMED CONSENT FOR BLOOD The transfusion of blood and/or blood components were discussed with the patient and/or legal sales solutions representative. The risks, benefits and alternatives were reviewed. Questions regarding blood transfusions were answered. The patient /or the patient s legal sales solutions representative agree with the plan for transfusion of blood and/or blood components. [employer] Work Phone: 1(369) 294-135711-23-2022 Note* Anesthesia Attestation - Ki Atwood MD - 07/14/2022 7:06 AM EST Anesthesia Attestation ATTESTATION OF INFORMED CONSENT FOR ANESTHESIA Anesthesia options were discussed with the patient and/or legal sales solutions representative. The risks, benefits and alternatives were reviewed. Questions regarding anesthesia were answered. Patient and/or legal sales solutions representative knows such anesthetics and procedures may be performed by Resident physicians, Certified Anesthesiologist Assistants, or Certified Nurse Anesthetists under the supervision of a physician. The patient /or the patient s legal representativeagree with the plan for anesthesia. [employer] [id number] Telephone encounter Note* Telephone Encounter - Latoya Manzo RN - 07/09/2022 3:43 PM EST 1541: Contacted pt and informed her to call the ENT office to schedule appt with Dr Moreno s/vishal jaw surgery in about 3 months due to healing time. Pt verbalized understanding. Latoya Manzo RN [id number] Miscellaneous Notes* Telephone Encounter - Latoya Manzo [...] step is for after the surgery. PT: [phone] Gus Luz documented in this [id number] Telephone encounter Note* Telephone Encounter - Nicole Diaz - 07/09/2022 2:[address] Joel, Patient calling stating that she is going forward with the jaw surgery that you recommended next 07/14/22. Patient would like to know what the next step is for after the surgery. PT: [phone] uGs Luz [employer] Work Phone: 1(939) 130-745911-17-2022 Instructions* Patient Instructions* Gena Holbrook APRN-CNP - [...] for pain Please hold all Vitamin E, Hilliard 3, fish oil and herbal supplements for 1 week prior to surgery documented in this [id number] Note* PSE Appt H&P - Edwina Daniel - 07/08/2022 1:59 PM EST Patient was identified by name and date of . Edwina Daniel Bill of rights provided to patient [id number] Miscellaneous Notes* PSE Appt H&P - Edwina Daniel - 07/08/2022 1:59 PM EST Patient was identified by name and date of . Edwina Daniel Bill of rights provided to patient * PSE Appt H&P - Gena Holbrook APRN-CNP - 07/07/2022 4:03 PM EST Presurgical Evaluation Isabelle Kash, [id number] 47 year old Female 07/08/2022 BP 122/80 [...] Yes Does not use CPAP PS12/17/2021 at [facility] RESPIRATORY DATA INTEGRITY: Respiratory data integrity [...] Arredondo 4:25 PM 07/08/2022 documented in this [id number] NotePresurgical Evaluation Isabelle Hewitt, [id number] 47 year old Female 07/08/2022 BP 122/80 [...] Yes Does not use CPAP PS12/17/2021 at [facility] RESPIRATORY DATA INTEGRITY: Respiratory data integrity [...] grossly intact Psychia (more content not included)...[employer] [id number] Note* PSE Appt H&P - Gena Holbrook APRN-BRIAN - 07/07/2022 4:03 PM EST Presurgical Evaluation Isabelle Hewitt, [id number] 47 year old Female 07/08/2022 BP 122/80 [...] Yes Does not use CPAP PS12/17/2021 at [facility] RESPIRATORY DATA INTEGRITY: Respiratory data integrity [...] Cardio-vascular: HTN, HLD and denies CP, SOB, AB, Syncope or palpitations G.I./ Hepatic: s/p cholecystectomy [...] Interviewer signature: ARTURO Arredondo 4:25 PM 07/08/2022 [id number] NotePatient is vaccinated for COVID-19. Vaccinations are documented in Epic. Patient does not require pre-op COVID testing per current guidelines.[facility] [id number] Telephone encounter Note* Telephone Encounter - Mary Dennis RN - 07/05/2022 8:53 PM EST Patient is vaccinated for COVID-19. Vaccinations are documented in Epic. Patient does not require pre-op COVID testing per current guidelines. [id number] Miscellaneous Notes* Telephone Encounter - Mary Dennis RN - 07/05/2022 8:53 PM EST Patient is vaccinated for COVID-19. Vaccinations are documented in Epic. Patient does not require pre-op COVID testing per current guidelines. documented in this [id number] Note* PSE Appt H&P - Pierce Ramos APRN-CNP - 07/05/2022 12:06 PM EST Error [facility] Work Phone: 1([phone]) 994-817711-14-2022 Miscellaneous Notes* PSE Appt H&P - Pierce Ramos APRN-CNP - 07/05/2022 12:06 PM EST Error documented in this [id number] History of Present illness Narrative* Seferino Vaz DMD - 07/02/2022 11:00 AM EST ORAL SURGERY CLINIC FOLLOW UP VISIT Patient was seen in the FS clinic for alginate impressions of the edentulous maxilla and CBCT with denture in place. Seferino Vaz DMD FS Resident ms. documented in this [id number] History of Present illness Narrative* Rikki Rodrigues DMD, MD - 06/18/2022 4:17 PM EDT Images from the original note were not included. OMFS PATIENT VISIT CHIEF COMPLAINT: sleep apnea HISTORY OF PRESENT ILLNESS: Patient presents for evaluation for surgical treatment of DIONNE. She is extremely symptomatic from her DIONNE, and suffers from CPAP intolerance. [place] sleepiness scale is 18. Patient is starting [...] norms. Retrognathic mandible. DIAGNOSIS: Obstructive sleep apnea [794936] TREATMENT: Exam, Panorex evaluated, and pictures/models taken [...] Rikki Rodrigues DMD, MD documented in this [id number] History of Present illness Narrative* Margot Ovalles, DDS - 06/18/2022 4:17 PM EDT Images from the original note were not included. OMFS PATIENT VISIT CHIEF COMPLAINT: sleep apnea HISTORY OF PRESENT ILLNESS: Patient presents for evaluation for surgical treatment of DIONNE. She is extremely symptomatic from her DIONNE, and suffers from CPAP intolerance. [place] sleepiness scale is 18. Patient is starting [...] on 06/18/2022, and Digital version in Dentistry Tudou system. Airway measurements are very small compared to norms. Retrognathic mandible. DIAGNOSIS: Obstructive sleep apnea [332403] TREATMENT: Exam, Panorex evaluated, and pictures/models taken [...] Rikki Rodrigues DMD, MD documented in this [id number] Instructions* Patient Instructions* Rikik Rodrigues DMD, MD - 06/18/2022 3:51 PM [...] fatigue and inconsistent sleep. documented in this [id number] NoteSurgical Attestation: I have reviewed the patient's History and Physical Examination. I have personally seen and evaluated the patient, repeating ulloa portions. There is no significant interval change. Surgery is still indicated. Yes Consent reviewed and signed by patient/family: Yes Operative site verified and marked: site verified but not marked as not anatomically possible Ryann Brown PA-C 06/03/2022 11:55 AMThe [employer] [id number] Evaluation note* Encounter Date Diagnosis Assessment Notes Treatment Notes Treatment Clinical Notes May, Encounter for screening for other viral diseases (ICD-10 - Z11.59) [employer]koto Other 10-07-2022 Note* PSE Call H&P - Rose Brown RN - 05/28/2022 9:42 AM EDT Images from the original note were not included. Telephone History Isabelle Hewitt, [id number] 05/28/2022 47 year old 190 lbs 5' [...] pain. Do not take any Vitamin E, Hilliard 3, fish oils, herbal medications 7 days [...] Spent Performing this Telephone History: 30 minutes [id number] Miscellaneous Notes* PSE Call H&P - Rose Brown RN - 05/28/2022 9:42 AM EDT Images from the original note were not included. Telephone History Isabelle Hewitt, [id number] 05/28/2022 47 year old 190 lbs 5' [...] pain. Do not take any Vitamin E, Hilliard 3, fish oils, herbal medications 7 days [...] Telephone History: 30 minutes documented in this [id number] Telephone encounter Note* Telephone Encounter - Mary Dennis RN - 05/28/2022 8:15 AM EDT Patient is scheduled for DISE on 06/03/2022. Prefers to complete pre-op COVID testing closer to home. Instructed to obtain testing 48-72 hours prior to surgery and bring copy of results on day of surgery. PSE contact information provided. [id number] Miscellaneous Notes* Telephone Encounter - Mary Dennis RN - 05/28/2022 8:15 AM EDT Patient is scheduled for DISE on 06/03/2022. Prefers to complete pre-op COVID testing closer to home. Instructed to obtain testing 48-72 hours prior to surgery and bring copy of results on day of surgery. PSE contact information provided. documented in this [id number] Telephone encounter Note* Telephone Encounter - Mary Dennis RN - 05/26/2022 9:16 PM EDT Arrangements to be made for pre-op COVID testing per ENT request. [id number] Miscellaneous Notes* Telephone Encounter - Mary Dennis RN - 05/26/2022 9:16 PM EDT Arrangements to be made for pre-op COVID testing per ENT request. documented in this [id number] Note* Addendum Note - Yi Moreno MD - 05/26/2022 5:25 PM EDTAddended by: YI MORENO on: 05/26/2022 05:25 PM Modules accepted: Orders [id number] Miscellaneous Notes* Addendum Note - Yi Moreno MD - 05/26/2022 5:25 PM EDTAddended by: YI MORENO on: 05/26/2022 05:25 PM Modules accepted: Orders documented in this [id number] History of Present illness Narrative* Yi Moreno MD - 03/29/2022 2:41 PM EDT Images from the original note were not included. .Documentation: Mode: Telephone Patient Home Phone: Patient Patient Cell Preferred phone: [phone] Consent: I confirmed patient understanding of the [...] on prior sleep endoscopy documented in this [id number] History of Present illness Narrative* Yi Moreno MD - 03/29/2022 2:41 PM EDT Images from the original note were not included. .Documentation: Mode: Telephone Patient Home Phone: Patient Patient Cell Preferred phone: [phone] Consent: I confirmed patient understanding of the [...] on prior sleep endoscopy documented in this [id number] Telephone encounter Note* Telephone Encounter - Tatiana [...] to turn it in is 03/19/22. #: [phone] [id number] Miscellaneous Notes* Telephone Encounter - Tatiana Morris [...] to turn it in is 03/19/22. #: [phone] documented in this [id number] Note* Care Plan Note - Iglesia Amin [...] will be met Outcome: Adequate for Discharge [id number] Miscellaneous Notes* Care Plan Note - Iglesia [...] year old female Surgical Contact Serial Number: [id number] Preoperative Diagnosis: DIONNE (obstructive sleep apnea) [G47.33] Postoperative Diagnosis: * DIONNE (obstructive sleep apnea) [G47.33] Procedures: Surgical CPTs Procedures PALATOPHARYNGOPLASTY No data filed Surgeon(s): Surgeon(s): Yi Moreno MD Staff: Scrub: Wiley Álvarez Copy Preparer Nurse: Mariaa Briseno; Dulce Allred; Babs Wells RN Link Trainer Maintenance Worker: Yi Piña MD; Unruly Biggs MD Anesthesia: Consult Anesthesiologist: Maite Youssef MD CAA: Mariaa Meneses CAA CAR DRIVER: Cari Hurtado APRN-KOBI Turbine Assembler: Carol Barrera MD Anesthesia Student: Prema Norris Specimen(s): ID Type Source Tests Collected by Time Destination 1 : Tissue Tonsil, Left SPECIMEN FOR SURGICAL PATH Yi Moreno MD 02/25/2022 101 2 : Tissue Tonsil, Right SPECIMEN FOR SURGICAL PATH Yi Moreno MD 02/25/2022 101 Estimated Blood Loss: less than 5 cc [...] 02/25/2022 10:40 AM * OP Note - iY Moreno MD - 02/25/2022 10:00 AM EDT [id number] Isabelle Hewitt 1975 @PATFNAME@ @PATIENTLASTNAME@ [id number] Preoperative diagnosis: 1. Obstructive sleep apnea 2. [...] were discussed with the patient and/or legal sales solutions representative. The risks, benefits and alternatives were reviewed. Questions regarding anesthesia were answered. Patient and/or legal sales solutions representative knows such anesthetics and procedures may [...] were discussed with the patient and/or legal sales solutions representative. The risks, benefits and alternatives were reviewed. Questions regarding blood transfusions were answered. The patient /or the patient s legal sales solutions representative agree with the plan for transfusion of blood and/or blood components. documented in this [id number] NoteOTOLARYNGOLOGY HEAD AND NECK SURGERY DAILY PROGRESS [...] and perioperative course uncomplicated. Patient transferred to [facility] from PACU. Mild anxiety overnight. No desaturations and pain overall well controlled. Patient on 2L NC when seen in the AM - Wean nc as tolerated - Monitor PO - Restart home meds - Discharge home today as appropriate ENT [id number] [employer] [id number] Note* Care Plan Note - Martínez Johnson [...] the patient will be met Outcome: Progressing [id number] NoteDISCHARGE SUMMARY [place] [id number] Isabelle Hewitt Date of : 1975 46 [...] Your Medications These medications were sent to [id number] - [place], [place] - [address] [facility] [address] [place] [id number] acetaminophen 650 MG CR tablet methylPREDNISolone 4 [...] documented in the resident's note. Wiley Lancaster [facility] Hospital Discharge instructions* Discharge Instructions* Unruly Biggs [...] shared with your regular doctor. Isabelle Hewitt [facility] [address] Phone numbers Date of Procedure: 02/25/22 Physicians: Dr. Yi Moreno (ENT) Admission Date: 02/25/2022 7:49 AM Discharge Date: No discharge date for patient encounter. Disposition: Home Home Care Agency: none Procedure that was performed: Uvulopalatopharyngoplasty (UPPP) Pending results: No pathology specimen was sent Call [phone] during regular daytime business hours (8:00 am - 5:00 pm) and after 5:00 pm call [phone] and ask to speak with the ENT Resident Zigzag Machine Operator with any questions or concerns. If it is a life-threatening situation, proceed to the nearest emergency department. Your Follow-up Appointment(s) Future Appointments Date Time Provider Department Center 03/29/2022 3:15 PM Yi Moreno MD [facility] Location: [facility] ([facility] [place] [address] [place] [address] ([phone]) Thank you for the opportunity to care [...] a stool softener, they may be purchased jevv-vtn-hmomyhv at any local drugstore. Signs of Infection Signs of infection can include fever, excessive swelling, heat, drainage, redness, or severe pain. If you see any of these occur, please contact your doctor's office at [phone]. Any fever higherthan 100.4, especially if associated [...] opioids can be used to help relieve yjttgppz-wk-eugxsu pain and are often prescribed following a [...] or Mental Health Mobile Crisis Help Line [phone] Narcotics Anonymous Center for Disease Control and Prevention www.cdc.gov 211 First Call For Help (14/03) 2-1-1 from phone OR [place] Falls Prevention Each year, 1 in every 3 adults over the age of 65 are treated for fall-related injuries. The risk of falling increases with each decade of life. The good news is, many falls are preventable. Here are some fall prevention tips: Exercise can increase strength and improve balance, making falls much less likely. For more informati on visit: http://[employer].org/services/onxt-efnawp-db-your-health/a-matte p-al-yvvdycl/ Some medications or combinations of medications can [...] Written by the doctors and editors at [facility] What are the benefits of exercise? -- [...] of movement, like short walks or doing supervisor functional testing, can help improve your health. What else [...] process is complete. This topic retrieved from [employer] on: Mar 19, 2020. Topic 65855 Version 20.0 Release: 28.4.6 - C28.294 2019 [employer] and/or its affiliates. All rights reserved. Consumer [...] that is right for you.The use of [employer] content is governed by the [employer] Terms of Use. 2019 [employer]. All rights reserved. Copyright 2020 [employer] and/or its affiliates. All rights reserved. Reviewed April 2020 documented in this [id number] Note* Care Plan Note - Ashvin Mims [...] the patient will be met Outcome: Progressing [id number] NoteAddendum created 02/25/22 1219 by Mariaa Meneses CAA Intraprocedure Staff editedThe [facility]07-07-2022 History of Present illness Narrative* Ailyn Son, CALISTA - 02/25/2022 11:13 AM EDT No excessive [...] no areas of redness. documented in this [id number] NoteSurgical Attestation: I have reviewed the patient's History and Physical Examination. I have personally seen and evaluated the patient, repeating ulloa portions. There is no significant interval change. Surgery is still indicated. Yes Consent reviewed and signed by patient/family: Yes Operative site verified and marked: Yes Yi Moreno MD 02/25/2022 8:56 AMThe [facility]07-[facility]-2022 Note* Brief Operative Note - Yi Moreno MD - 02/25/2022 10:00 AM EDT Brief Operative Note MAIN OR 11 Isabelle Hewtit 46 year old female Surgical Contact Serial Number: [id number] Preoperative Diagnosis: DIONNE (obstructive sleep apnea) [G47.33] Postoperative Diagnosis: * DIONNE (obstructive sleep apnea) [G47.33] Procedures: Surgical CPTs Procedures PALATOPHARYNGOPLASTY No data filed Surgeon(s): Surgeon(s): Yi Moreno MD Staff: Scrub: Wiley Álvarez Copy Preparer Nurse: Mariaa Briseno; Dulce Allred; Babs Wells RN Link Trainer Maintenance Worker: Yi Piña MD; Unruly Biggs MD Anesthesia: Consult Anesthesiologist: Maite Youssef MD CAA: Mariaa Meneses CAA CAR DRIVER: Cari Hurtado APRN-CRNA Turbine Assembler: Carol Barrera MD Anesthesia Student: Prema Norris Specimen(s): ID Type Source Tests Collected by Time Destination 1 : Tissue Tonsil, Left SPECIMEN FOR SURGICAL PATH Yi Moreno MD 02/25/2022 101 2 : Tissue Tonsil, Right SPECIMEN FOR [...] by Yi Moreno MD 02/25/2022 10:40 AM [id number] Note* OP Note - Yi Moreno MD - 02/25/2022 10:00 AM EDT [id number] Isabelle Hewitt 1975 @PATFNAME@ @PATIENTLASTNAME@ [id number] Preoperative diagnosis: 1. Obstructive sleep apnea 2. [...] taken back to recovery in stable condition. [id number] History and physical note* Yi Moreno MD [...] Yes Yi Moreno MD 02/25/2022 8:56 AM [id number] History and physical note* Yi Moreno MD [...] MD 02/25/2022 8:56 AM documented in this [id number] Note* Anesthesia Attestation - Maite Youssef MD - 02/25/2022 8:52 AM EDT Anesthesia Attestation ATTESTATION OF INFORMED CONSENT FOR ANESTHESIA Anesthesia options were discussed with the patient and/or legal sales solutions representative. The risks, benefits and alternatives were reviewed. Questions regarding anesthesia were answered. Patient and/or legal sales solutions representative knows such anesthetics and procedures may be performed by Resident physicians, Certified Anesthesiologist Assistants, or Certified Nurse Anesthetists under the supervision of a physician. The patient /or the patient s legal representativeagree with the plan for anesthesia. [employer] Work Phone: 1(520) 244-454207-07-2022 Note* Blood Attestation - Maite Youssef MD - 02/25/2022 8:52 AM EDT Blood Attestation ATTESTATION OF INFORMED CONSENT FOR BLOOD The transfusion of blood and/or blood components were discussed with the patient and/or legal sales solutions representative. The risks, benefits and alternatives were reviewed. Questions regarding blood transfusions were answered. The patient /or the patient s legal sales solutions representative agree with the plan for transfusion of blood and/or blood components. [id number] Telephone encounter Note* Telephone Encounter - Mary Dennis RN - 02/24/2022 7:19 AM EDT PSE received pre-op COVID test results - NOT DETECTED on 02/23/2022. Document scanned into [employer]. [id number] Miscellaneous Notes* Telephone Encounter - Mary Dennis RN - 02/24/2022 7:19 AM EDT PSE received pre-op COVID test results - NOT DETECTED on 02/23/2022. Document scanned into [employer]. documented in this [id number] Telephone encounter Note* Telephone Encounter - Mary Dennis RN - 02/17/2022 2:52 PM EDT Patient is scheduled for surgery 02/25/2022. Prefers to complete pre-op COVID testing closer to home.Instructed to obtain testing 48-72 hours prior to surgery and bring copy of results on day of surgery. PSE contact information provided, order faxed to [facility] per patient request. [id number] Miscellaneous Notes* Telephone Encounter - Mary Dennis RN - 02/17/2022 2:52 PM EDT Patient is scheduled for surgery 02/25/2022. Prefers to complete pre-op COVID testing closer to home.Instructed to obtain testing 48-72 hours prior to surgery and bring copy of results on day of surgery. PSE contact information provided, order faxed to [facility] per patient request. documented in this [id number] Instructions* Patient Instructions* Pierce Ramos APRN-MANAGER UNIVERSITY - 02/16/2022 2:21 PM EDT On the [...] for pain Please hold all Vitamin E, Hilliard 3, fish oil and herbal supplements for 1 week prior to surgery documented in this [id number] Note* PSE Appt H&P - Quinton Manzo - 02/16/2022 2:19 PM EDT Patient was identified by name and date of . Quinton Manzo Bill of rights provided to patient [id number] Miscellaneous Notes* PSE Appt H&P - Quinton Manzo - 02/16/2022 2:19 PM EDT Patient was identified by name and date of . Quinton Manzo Bill of rights provided to patient * PSE Appt H&P - Pierce Ramos APRN-CNP - 02/15/2022 2:46 PM EDT Presurgical Evaluation Isabelle Hewitt, [id number] 46 year old Female 02/17/2022 VITAL SIGNS: [...] six months. No STOP-BANG Row Name 02/16/22 1422 History of sleep apnea? Yes Does not use CPAP PS12/17/2021 at [facility] RESPIRATORY DATA INTEGRITY: Respiratory data integrity [...] (LIPITOR) 20 mg tablet EKG 12-LEAD TRACING [[id number]] PLAN: Documentation complete. Labs, Images, and Medications reviewed, and patient questions answered. Interviewer signature: ARTURO Rankin 8:00 AM 02/17/2022 documented in this [id number] NotePresurgical Evaluation Isabelle Hewitt, [id number] 46 year old Female 02/17/2022 VITAL SIGNS: [...] Yes Does not use CPAP PS12/17/2021 at [facility] RESPIRATORY DATA INTEGRITY: Respiratory data integrity [...] No result fo (more content not included)...The [employer] [id number] Note * PSE Appt H&P - Pierce Ramos APRN-MANAGER UNIVERSITY - 02/15/2022 2:46 PM EDT Presurgical Evaluation Isabelle Hewitt, [id number] 46 year old Female 02/17/2022 VITAL SIGNS: [...] Yes Does not use CPAP PS12/17/2021 at [facility] RESPIRATORY DATA INTEGRITY: Respiratory data integrity [...] (LIPITOR) 20 mg tablet EKG 12-LEAD TRACING [[id number]] PLAN: Documentation complete. Labs, Images, and Medications reviewed, and patient questions answered. Interviewer signature: ARTURO Rankin 8:00 AM 02/17/2022 [id number] Telephone encounter Note* Telephone Encounter - Mary Dennis RN - 02/11/2022 3:52 PM EDT Arrangements to be made for pre-op COVID testing per ENT request. [id number] Miscellaneous Notes* Telephone Encounter - Mary Dennis RN - 02/11/2022 3:52 PM EDT Arrangements to be made for pre-op COVID testing per ENT request. documented in this [id number] History of Present illness Narrative* Yi Moreno [...] indicating an AHI of 63 with an A4yxamu of 64% Sleep position: Side Mouth breather:y yeses previous sleep surgeries: no Other sleep disorders, such as insomnia/ kataplexy/ narcolepsy: yes, on andoff Bruxism: no tried oral appliance:edenetulous Questionnaires: [place] sleep scale score: 18 FOSQ-10: HADS No [...] middle ear was aerated bilaterally. Clinical speech drip pumper thresholds grossly intact. No lesions/mass of auricles. [...] surgery. Patient's procedure will be done at [facility]. This is a difficult airway [...] transfusion as discussed preoperatively. documented in this [id number] History of Present illness Narrative* Randa Yanes [...] or not. Verbalizes understanding. documented in this [facility] [place] Phone: 1(261) 812-729505-17-2022 Hospital Discharge instructions* Instructions* Frontz, Ade N, RN - 01/05/2022 SAME DAY SURGERY DISCHARGE [...] flush the urinary tract.) Call Dr. Hirsch ([phone]) if you develop: Fever over 100 degrees [...] Call Dr. Hirsch office for follow-up appointment ([phone]). documented in this [facility] Work Phone: 1(882) 843-225103-21-2022 Evaluation note* Encounter Date Diagnosis Assessment Notes [...] changes in symptoms and/or problems with treatment xkoto Other Chiiy complaint Narrative - ReportedISABLELE HEWITT is being seen for a consultation for abnormal test(s) results.-[facility] Work Phone: Evaluation note* Diagnosis Kidney stones Calculus of kidney documented in this encounter [employer] Phone: evaluation note* Diagnosis Pre-op testing Preoperative examination, unspecified documented in this encounter [employer] Phone: evaluation note* Diagnosis Ureteral calculus- Primary Calculus of ureter documented in this encounter [employer] Phone: evaluation note* Diagnosis DIONNE (obstructive sleep apnea)- Primary Obstructive sleep apnea (adult) (pediatric) Body mass index (BMI) 34.0-34.9, adult [facility] InformationNort [employer] Other Evaluation note* Diagnosis DIONNE (obstructive sleep [...] Calculus of ureter documented in this encounter [facility] Work Phone: evaluation note* Diagnosis DIONNE (obstructive sleep apnea)- Primary Obstructive sleep apnea (adult) (pediatric) Encounter for laboratory testing for severe acute respiratory syndrome coronavirus 2 (SARS-CoV-2) Postoperative pain Other acute postoperative pain [facility] Diagnosis DIONNE (obstructive sleep apnea)- Primary Obstructive sleep apnea (adult) (pediatric) documented in this [facility] Work Phone: Evaluation note* Diagnosis Obstructive [...] note* Diagnosis Dysuria documented in this encounter [employer] Phone: evaluation note* Diagnosis Post-operative state- Primary Other postprocedural status [facility]* Diagnosis Post-operative state- Primary Other postprocedural status [facility]* Diagnosis OAB (overactive bladder) Hypertonicity of bladder Urge incontinence Frequency of urination Urinary frequency documented in this encounter [employer] Phone: evaluation note* Diagnosis Onset Date Resolution Status Contact with and (suspected) exposure to covid-19 acute Influenza B noneactive Diarrhea acute Fecal urgency acute Alternating constipation and diarrhea acute Bloating acute Fecal urgency acute [facility] Work Phone: History and physical note Author David Martinez [facility] August 08, 2023 12:30pm Note Date/Time August 08, 2023 12:30pm [facility] [address] [place] [address] Gastroenterology H&P Signed Patient: Isabelle Hewitt I MR#: [id number] : 1975 Acct:[id number] Age/Sex: 48 / F Adm Date: 3 Loc: Room: Type: [facility] Attending Dr: David Martinez MD Copies [...] M.D. Documented By: David Martinez MD 08/08/23 1227 Signed By: <Electronically signed by David Martinez MD> 08/08/23 1237 [facility] Work Phone: History general Narrative - Reported* Type Description Date Medical History anxiety Medical History Hypertension Medical History sleep apnea Surgical History C section Surgical History cholecystectomy Hospitalization History see above Hospitalization History no history of ps ychiatric hospitalization, substance abuse, and suicide attempts, but she is history of ongoing treatment of depression and counseling for depression, anxiety Hospitalization History dehydration [employer] Other History general Narrative - Reported* Type [...] counseling for depression, anxiety Hospitalization History dehydration [employer] Other History of Present illness Narrative* Patient [...] office in 3 to 4 months follow-up [facility] [employer] DO Work Phone: History of Present illness [...] monitor blood pressure call if not better [employer] [employer] DO Work Phone: Hospital Discharge instructions Additional [...] NOT operate machinery such as power tools, my4oneonen mowers, Leho blowers, sewing machines, etc. for 24 hours. [...] in the office as scheduled -Office number [phone]. [facility] Work Phone: Reason for visit Narrative* Auth/Cert Specialty Diagnoses / Procedures Referred By Contac t Referred To Contact Diagnoses Kidney stone KIDNEY STONES Procedures NE CYSTO/URETERO W/LITHOTRIPSY &INDWELL STENT INSRT CYSTOSCOPY URETEROSCOPY LASER-WITH L Bertha Hirsch MD [address] [facility], [address] [place] [address] [employer] [id number] [place] [address] Referral ID Status Reason Start Date Expiration Date Visits Re quested Visits Authorized [id number] 1 1 [employer] Phone: reason for visit Narrative* Auth/Cert Specialty Diagnoses / Procedures Referred By Contac [employer] Referred To Contact General Surgery Diagnoses DIONNE (obstructive sleep apnea) DIONNE (obstructive sleep apnea) [G47.33] Procedures PALATOPHARYNGOPLASTY UVULOPALATOPHARYNGOPLAS TY Yi Moreno MD [facility] [employer] [place] [id number] [employer] [facility] [place] [address] Phone: [phone] Referral ID Status Reason Start Date Expiration Date Visits Re quested Visits Authorized [id number] 3 3 [facility] NarrativeRAPID COVID TEST FOR PROCEDURE, FPG COVID voluntary/travelNortIngenium Golf Other Family History No Family History Records [...] Time Advance Directives No March 22 018 7:42am Latest Code Status on File Code [...] Recorded Date/ Time Advance Directives No March 22, 2 018 6:42am Chief Complaint and Reason for [...] sleep apnea COUGH, CONGESTION, BODYACHE, FLU EXPOSURE Chief Complaint Obstructive sleep ap shaun COUGH, CONGESTION, BODYACHE, FLU EXPOSURE FU treatment for microscopic colitis 1 month follow up Reason for Visit Contact with and (tong spected) exposure to covid-19 Influenza B Diarrhea Fecal urgency Alternating constipation and diarrhea Bloating Fecal urgency Chief Complaint Obstructive sleep ap shaun COUGH, CONGESTION, BODYACHE, FLU EXPOSURE FU treatment for microscopic colitis 1 month follow up psg/recheck after weight loss Reason for Visit Contact with and (tong spected) exposure to covid-19 Influenza B Diarrhea Fecal urgency Alternating constipation and diarrhea Bloating Fecal urgency Chief Complaint Obstructive sleep ap shaun COUGH, CONGESTION, BODYACHE, FLU EXPOSURE FU treatment for microscopic colitis 1 month follow up R19.8 R14.0 KUB psg/recheck after weight loss Reason for Visit Contact with and (tong spected) exposure to covid-19 Influenza B Diarrhea Fecal urgency Alternating constipation and diarrhea Bloating Fecal urgency Chief Complaint COUGH, CONGESTION, B ODYACHE, FLU EXPOSURE FU treatment for microscopic colitis 1 month follow up R19.8 R14.0 KUB psg/recheck after weight loss Reason for Visit Contact with and (tong spected) exposure to covid-19 Influenza B Diarrhea Fecal urgency Alternating constipation and diarrhea Bloating Fecal urgency Chief Complaint COUGH, CONGESTION, B ODYACHE, FLU EXPOSURE FU treatment for microscopic colitis 1 month follow up R19.8 R14.0 KUB psg/recheck after weight loss Unknown Reason for Visit Contact with and (tong spected) exposure to covid-19 Influenza B Diarrhea Fecal urgency Alternating constipation and diarrhea Bloating Fecal urgency Reason for Referral Specialty Diagnoses / Procedures Referred By Casper diaz Referred To Contact Oral Surgery Diagnoses DIONNE (obstructive sleep apnea) Yi Moreno MD [address] [place] [address] Rikki Rodrigues DMD, MD [address] [place] [address] Referral ID Status Reason Start Date Expiration Date V isits Requested Visits Authorized [id number] Pending Review 05/26/2022 05/26/2023 3 3 Scheduling Instructions Please call the mixer attendant Clinic at [facility] at to schedule an appointment if one was not made for you today. Question Answer Patient to be evaluated for: Orthognathic/Jaw Surgery Additional Source Comments INFORMATION SOURCE (unrecogn ized section and content) DATE CREATED AUTHOR 12/03/2021 [facility] DATE CREATED AUTHOR AUTHOR'S ORGANIZ ATION 01/31/2023 [facility] DATE CREATED AUTHOR AUTHOR'S ORGANIZ ATION 01/31/2023 [employer] DATE CREATED AUTHOR AUTHOR'S ORGANIZ ATION 02/25/2023 [facility] DATE CREATED AUTHOR AUTHOR'S ORGANIZ ATION 10/02/2023 [facility] DATE CREATED AUTHOR AUTHOR'S ORGANIZ ATION 12/30/2023 [facility] DATE CREATED AUTHOR AUTHOR'S ORGANIZ ATION 01/19/2024 [facility] DATE CREATED AUTHOR AUTHOR'S ORGANIZ ATION 01/27/[address] [facility] EPIC Care Teams (unrecognized sec tion and content) Team Status: Active Member Role Status Dates Gena Kirby Primary Care Provider Active Team Status: Inactive Member Role Status Dates Gena Kirby Primary Care Provider Active Yi Moreno MD Referring Provider Active Wiley Mcmanus MD Attending Provider Active Chestnut Tanner Relationship Specialty Start Date End Date Gena Kirby [address] [place] [address] PCP - General Nurse Practitioner 11/30/21 Chestnut Tanner Relationship Specialty Start Date End Date Gena Kirby [address] [place] [address] PCP - General Nurse Practitioner 11/30/21 Chestnut Tanner Relationship Specialty Start Date End Date Gena Kirby [address] [place] [address] PCP - General Nurse Practitioner 11/30/21 Chestnut Tanner Relationship Specialty Start Date End Date Yi Moreno MD [address] [place] [address] 74456 Physician Otolaryngology 01/23/22 Chestnut Tanner Relationship Specialty Start Date End Date Yi Moreno MD [address] [place] [address] 61167 Physician Otolaryngology 01/23/22 Chestnut Tanner Relationship Specialty Start Date End Date Yi Moreno MD [address] [place] [address] 58832 Physician Otolaryngology 01/23/22 Chestnut Tanner Relationship Specialty Start Date End Date Yi Moreno MD [address] [place] [address] 08423 Physician Otolaryngology 01/23/22 Chestnut Tanner Relationship Specialty Start Date End Date Gena Kirby [address] [place] [address] PCP - General Nurse Practitioner 11/30/21 Chestnut Tanner Relationship Specialty Start Date End Date Yi Moreno MD [address] [place] [address] 60861 Physician Otolaryngology 01/23/22 Chestnut Tanner Relationship Specialty Start Date End Date Yi Moreno MD [address] [place] [address] 93059 Physician Otolaryngology 01/23/22 Chestnut Tanner Relationship Specialty Start Date End Date Yi Moreno MD [address] [place] [address] 27725 Physician Otolaryngology 01/23/22 Chestnut Tanner Relationship Specialty Start Date End Date Yi Moreno MD [address] [place] [address] 72534 Physician Otolaryngology 01/23/22 Team Status: Inactive Member Role Status Dates Gena Kirby Primary Care Provider Active Wiley Mcmanus MD Attending Provider Active Yi Moreno MD Referring Provider Active Chestnut Tanner Relationship Specialty Start Date End Date Yi Moreno MD [address] [place] [address] 38491 Physician Otolaryngology 01/23/22 Chestnut Tanner Relationship Specialty Start Date End Date Yi Moreno MD [address] [place] [address] 70761 Physician Otolaryngology 01/23/22 Rikki Rodrigues DMD, MD [address] [place] [address] 40070 Physician Oral & Maxillofacial Surgery 06/26/22 Chestnut Tanner Relationship Specialty Start Date End Date Yi Moreno MD [address] [place] [address] 57932 Physician Otolaryngology 01/23/22 Chestnut Tanner Relationship Specialty Start Date End Date Yi Moreno MD [address] [place] [address] 51007 Physician Otolaryngology 01/23/22 Rikki Rodrigues DMD, MD [address] [place] [address] 62203 Physician Oral & Maxillofacial Surgery 06/26/22 Chestnut Tanner Relationship Specialty Start Date End Date Yi Moreno MD [address] [place] [address] 20991 Physician Otolaryngology 01/23/22 Rikki Rodrigues DMD, MD [address] [place] [address] 91292 Physician Oral & Maxillofacial Surgery 06/26/22 Chestnut Tanner Relationship Specialty Start Date End Date Yi Moreno MD [address] [place] [address] 26240 Physician Otolaryngology 01/23/22 Rikki Rodrigues DMD, MD [address] [place] [address] 45286 Physician Oral & Maxillofacial Surgery 06/26/22 Chestnut Tanner Relationship Specialty Start Date End Date Yi Moreno MD [address] [place] [address] 70629 Physician Otolaryngology 01/23/22 Chestnut Tanner Relationship Specialty Start Date End Date Yi Moreno MD [address] [place] [address] 44871 Physician Otolaryngology 01/23/22 Rikki Rodrigues DMD, MD [address] [place] [address] 50997 Physician Oral & Maxillofacial Surgery 06/26/22 Chestnut Tanner Relationship Specialty Start Date End Date Yi Moreno MD [address] [place] [address] 76100 Physician Otolaryngology 01/23/22 Rikki Rodrigues DMD, MD [address] [place] [address] 14008 Physician Oral & Maxillofacial Surgery 06/26/22 Chestnut Tanner Relationship Specialty Start Date End Date Yi Moreno MD [address] [place] [address] 99278 Physician Otolaryngology 01/23/22 Rikki Rodrigues DMD, MD [address] [place] [address] 43037 Physician Oral & Maxillofacial Surgery 06/26/22 Chestnut Tanner Relationship Specialty Start Date End Date Yi Moreno MD [address] [place] [address] 40904 Physician Otolaryngology 01/23/22 Rikki Rodrigues DMD, MD [address] [place] [address] 23325 Physician Oral & Maxillofacial Surgery 06/26/22 Chestnut Tanner Relationship Specialty Start Date End Date Yi Moreno MD [address] [place] [address] 48891 Physician Otolaryngology 01/23/22 Rikki Rodrigues DMD, MD [address] [place] [address] 50823 Physician Oral & Maxillofacial Surgery 06/26/22 Gena Holbrook APRN-CNP [address] [place] [address] 38248 RESIDENTIAL INTERIOR DESIGNER Anesthesiology 07/24/22 Chestnut Tanner Relationship Specialty Start Date End Date Yi Moreno MD [address] [place] [address] 33760 Physician Otolaryngology 01/23/22 Rikki Rodrigues DMD, MD [address] [place] [address] 10306 Physician Oral & Maxillofacial Surgery 06/26/22 Gena Holbrook APRN-CNP [address] [place] [address] 64656 RESIDENTIAL INTERIOR DESIGNER Anesthesiology 07/24/22 Chestnut Tanner Relationship Specialty Start Date End Date JoelGena kesy [facility] [place] [address] PCP - General Nurse Practitioner 11/30/21 Chestnut Tanner Relationship Specialty Start Date End Date Yi Moreno MD [address] [place] [address] 95714 Physician Otolaryngology 01/23/22 Rikki Rodrigues DMD, MD [address] [place] [address] 30816 Physician Oral & Maxillofacial Surgery 06/26/22 Gena Holbrook APRN-CNP [address] [place] [address] 53277 RESIDENTIAL INTERIOR DESIGNER Anesthesiology 07/24/22 Chestnut Tanner Relationship Specialty Start Date End Date Yi Moreno MD [address] [place] [address] 79298 Physician Otolaryngology 01/23/22 Rikki Rodrigues DMD, MD [address] [place] [address] 28558 Physician Oral & Maxillofacial Surgery 06/26/22 Gena Holbrook APRN-MANAGER UNIVERSITY [address] [place] [address] 57741 RESIDENTIAL INTERIOR DESIGNER Anesthesiology 07/24/22 Chestnut Tanner Relationship Specialty Start Date End Date Gena Kirby [facility] [place] [address] PCP - General Nurse Practitioner 11/30/21 Chestnut Tanner Relationship Specialty Start Date End Date Yi Moreno MD [address] [place] [address] 85868 Physician Otolaryngology 01/23/22 Rikki Rodrigues DMD, MD [address] [place] [address] 79567 Physician Oral & Maxillofacial Surgery 06/26/22 Gena Holbrook APRN-MANAGER UNIVERSITY [address] [place] [address] 41484 RESIDENTIAL INTERIOR DESIGNER Anesthesiology 07/24/22 Team Status: Inactive Member Role [...] Team Status: Inactive Member Role Status Dates Genasue Kirby Primary Care Provider Active Sta rt: June 30, 2023 End: June 30, 2023 Majo Lyman APRN Attending Provider Active Start: June 30, 2023 End: June 30, 2023 Team Status: Inactive Member Role Status Dates Genasue Kirby Primary Care Provider Active Sta rt: [...] Status: Inactive Member Role Status Dates [facility] Primary Care Provider Active Sta rt: October 14, 2023 End: October 14, 2023 Louise Johnson APRN Attending Provider Active Start: October 14, 2023 End: October 14, 2023 Team Status: Inactive Member Role Status Dates Gena Kirby Primary Care Provider Active Sta rt: November 02, 2023 End: November 02, 2023 Majo Lyman APRN Attending Provider Active Start: November 02, 2023 End: November 02, 2023 Team Status: Inactive Member Role Status Dates Gena Kirby Primary Care Provider Active Sta rt: December 12, 2023 End: December 12, 2023 Majo Lyman APRN Attending Provider Active Start: December 12, 2023 End: December 12, 2023 Team Status: Inactive Member Role Status Dates Gena Kirby Primary Care Provider Active Sta rt: December 14, 2023 End: December 14, 2023 Wiley Mcmanus MD Attending Provider Active S tart: December 14, 2023 End: December 14, 2023 Team Status: Inactive Member Role Status Dates Gena Kirby Primary Care Provider Active Sta rt: December 14, 2023 End: December 14, 2023 Majo Lyman APRN Attending Provider Active Start: December 14, 2023 End: December 14, 2023 Team Status: Inactive Member Role Status Dates Gena Kirby Primary Care Provider Active Sta rt: December 16, 2023 End: December 16, 2023 Wiley Mcmanus MD Attending Provider Active S tart: December 16, 2023 End: December 16, 2023 Team Status: Inactive Member Role Status Dates Gena Kirby Primary Care Provider Active Sta rt: December 29, 2023 End: December 29, 2023 Oswald Harrington Attending Provider Active Start: Bonilla wooten 2023 End: December 29, 2023 Scheduled Active and Recently Administ ered [...] IVPB 400 mg (COMPLETED) 400 mg, IntraVENous, P[employer]ING [employer]ATION ENFORCEMENT OFFICER TO O.R., 1 dose, On Tue01/05/22 at [...] Post-op 1700 (Hold/Not Given - Provider: Jerel Pittman RN - Reason: Patient refused)2100 (Given [...] Johnson RN)0550 (Given - Provider: Martínez Johnson, CALISTA)1203 (Given - Provider: Iglesia Amin RN) oxyCODONE [...] Linh Fregoso RN)1704 (Given - Provider: Cleo Tao, CALISTA)2044 (Given - Provider: Lola Wyatt, CALISTA)2100 (Hold/Not Given - Provider: Lola Wyatt RN - Reason: Previously Administered) 0206 (Given - Provider: Lola Wyatt RN)0542 (Hold/Not Given - Provider: Lola Wyatt RN - Reason: Patient refused)0916 (Given - Provider: Penny Brown RN)1400 (Due - Provider: Dulce Olson [facility])1800 (Due - Provider: Dulce Olson [facility])2200 (Due - Provider: Dulce Olson [facility]) acetaminophen (TYLENOL) tablet (CANCELED) 650 mg, Oral, [...] RN)0959 (IV New Bag - Provider: Linh Fregoso RN)202 (Hold/Not Given - Provider: Lola Wyatt RN [...] ICU/Step Down 0900 (Given - Provider: Lauren Crawford, RN)2099 (Given - Provider: Lemuel Gilbert, RN) 08 (Given - Provider: Linh Fregoso RN)2042 (Given - Provider: Lola Wyatt RN) 0916 (Given - Provider: Penny Brown, RN)2100 (Due) dexamethasone (DECADRON) 4 MG/ML injection (COMPLETED) 8 mg, Intravenous Push, EVERY 8 HOURS, 3 doses, First dose on Tue07/14/22 at 1530, Last dose on Christen 07/15/22 at 0900, ICU/Step Down 0109 (Given - Provider: Alon Cotton RN)08 (Given - Provider: Lauren Crawford RN) dextrose [...] dose on Tue07/15/22 at 2200, Until Discontinued 212 (Given - Provider: Lemuel Gilbert, RN) 2044 [...] Crawford RN)2124 (Given - Provider: Lemuel Gilbert, RN) 0655 (Given - Provider: Donya Lam RN)1358 (Given - Provider: Cleo Tao RN)2046 (Hold/Not Given - Provider: Lola Wyatt RN - Reason: Patient refused) 0409 (Hold/Not Given - Provider: Lola Wyatt RN - Reason: Patient refused)1400 (Due)2200 (Due) potassium phosphate 15 mmol injection in D5W (COMPLETED) 15 mmol, Intravenous, ONCE, 1 dose, On Tue07/16/22 at 1030 1135 (IV New Bag - Provider: Linh Fregoso, CALISTA) venlafaxine (EFFEXOR XR) 24 hour capsule 75 mg, Oral, DAILY, First dose on Tue07/14/22 at 1800, Until Discontinued, ICU/Step Down 0901 (Given - Provider: Lauren Crawford RN) 0811 (Given - Provider: Linh Fregoso, CALISTA) 0916 (Given - Provider: Penny Brown RN) Continuous Medication Order 07/15/2022 07/16/2022 07/17/2022 [...] 0828 0000 (Rate Verify - Provider: Alon Cotton, RN)0100 (Rate Verify - Provider: Alon Cotton [...] score 4,5,6) 1704 (Given - Provider: Cleo Kosko, RN) 0409 (Given - Provider: Lola Wyatt RN) oxyCODONE (ROXICODONE) 5 mg/5 mL oral [...] RN)0800 (Given - Provider: Lauren Crawford RN) oxymetazoline (AFRIN) 0.05 % nasal solution 2 [place], Nasal, EVERY 4 HOURS PRN, Starting on Tue07/14/22 at 1516, Until Discontinued, Nosebleed, ICU/Step Down sodium chloride (OCEAN) 0.65 % nasal spray 1 [place], Nasal, EVERY 1 HOUR PRN, Starting on Tue07/14/22 at 1516, Until Discontinued, Congestion, Congestion due to dryness, ICU/Step Down Reason for Visit (unrecogniz ed section and content) Reason Comments New patient, to establish relationship S leep Apnea, Inspire Specialty Diagnoses / Procedures Referred By Casper diaz Referred To Contact Ent-Otolaryngology Diagnoses Sleep apnea, unspecified type Wiley Mcmanus MD [address] [place] [address] [facility] [address] [place] [id number] Referral ID Status Reason Start Date Expiration Date Visits Requested Visits Authorized [id number] Pending Review Transfer [facility] Care-[facility] 01/01/2022 01/01/2023 3 3 Reason Onset [...] DIONNE (obstructive sleep apnea) Yi Moreno MD [address] [place] [address] Rikki Rodrigues DMD, MD [address] [place] [address] Referral ID Status Reason Start Date Expiration Date V isits Requested Visits Authorized [id number] Pending Review 05/26/2022 05/26/2023 3 3 Reason [...] SAGITTAL SPLIT, BILATERAL Rikki Rodrigues DMD, MD [address] [place] [address] [facility] [address] [place], [place] [id number] Phone: [phone] Referral ID Status Reason Start Date Expiration Date Visits Re quested Visits Authorized [id number] 3 3 Reason Comments Post Op Check [...] BE BASED ON THE PRIMARY CLINICAL RECORDS. [facility]. provides no warranty or guarantee of the accuracy or completeness of information in this document.
[2024-02-25 10:29] LABS: Free T4 0.79 ng/dL (0.76-1.46)
[2024-02-25 10:33] LABS: Free T3 2.44 pg/mL (2.18-3.98); Thyroid Stimulating Hormone 0.108 uIU/mL (0.358-3.740)
== END 2024-02-25 09:47 | disposition home or self-care (01) ==
LOC: LAB 09:47
PROVIDERS: PCP Nurse Practitioner; Visit Provider Nurse Practitioner
DX: E06.9 Thyroiditis, unspecified (principal); E03.8 Other specified hypothyroidism
CPT/HCPCS: 36415; 84439; 84443; 84481

== ENCOUNTER 2024-03-27 09:30 | Outpatient (OUT) | payer OTHER, SELFPAY ==
--- OUTSIDE RECORDS SUMMARY | 2024-03-27 09:36 | XMS_ITS | CCD ---
Author Organization [facility] Care Team Providers Care Lubrication Servicer Name Role Phone Gena Kirby Unavailable Unavailable [...] MD Unavailable Matthew RITCHIE MD, Justin Unavailable Gena Corrales Unavailable Gena Kirby Primary Care Provider MD Yi Moreno Referring Provider MD Wiley Mcmanus Attending Provider Gena Corrales Unavailable AICHHOLZ, SELF CONTAINED BEHAVIOR UNIT TEACHER GENA Admitting Unavailable AICHHOLZ, SELF CONTAINED BEHAVIOR UNIT TEACHER GENA Attending Unavailable AICHHOLZ, SELF CONTAINED BEHAVIOR UNIT TEACHER GENA Consulting Unavailable AICHHOLZ, SELF CONTAINED BEHAVIOR UNIT TEACHER GENA Primary Care Unavailable LEN ., DR ARIZA Attending Unavailable LEN ., DR ARIZA Consulting Unavailable LEN ., DR ARIZA Admitting Unavailable AICHHOLZ, SELF CONTAINED BEHAVIOR UNIT TEACHER GENA Primary Care Unavailable WEST, DR WILEY Bryant Consulting Unavailable LEN ., DR ARIZA Attending Unavailable AICHHOLZ, SELF CONTAINED BEHAVIOR UNIT TEACHER GENA Primary Care Unavailable LEN ., DR ARIZA Admitting Unavailable LEN ., DR ARIZA Consulting Unavailable AICHHOLZ, SELF CONTAINED BEHAVIOR UNIT TEACHER GENA Primary Care Unavailable AICHHOLZ, SELF CONTAINED BEHAVIOR UNIT TEACHER GENA Admitting Unavailable AICHHOLZ, SELF CONTAINED BEHAVIOR UNIT TEACHER GENA Attending Unavailable AICHHOLZ, SELF CONTAINED BEHAVIOR UNIT TEACHER GENA Consulting Unavailable LEN ., DR ARIZA Attending Unavailable AICHHOLZ, SELF CONTAINED BEHAVIOR UNIT TEACHER GENA Primary Care Unavailable LEN ., DR ARIZA Admitting Unavailable LEN ., DR ARIZA Admitting Unavailable LEN ., DR ARIZA Attending Unavailable AICHHOLZ, SELF CONTAINED BEHAVIOR UNIT TEACHER GENA Primary Care Unavailable LEN ., DR ARIZA Consulting Unavailable MARTIN YBARRA Consulting Unavailable MARGARITA II, BERTHA Consulting Unavailable LEN ., DR ARIZA Attending Unavailable AICHHOLZ, SELF CONTAINED BEHAVIOR UNIT TEACHER GENA Primary Care Unavailable LEN ., DR ARIZA Admitting Unavailable LEN ., DR ARIZA Attending Unavailable AICHHOLZ, SELF CONTAINED BEHAVIOR UNIT TEACHER GENA Primary Care Unavailable LEN ., DR ARIZA Admitting Unavailable LEN ., DR ARIZA Consulting Unavailable LEN ., DR ARIZA Admitting Unavailable LEN ., DR ARIZA Attending Unavailable AICHHOLZ, SELF CONTAINED BEHAVIOR UNIT TEACHER GENA Primary Care Unavailable AICHHOLZ, SELF CONTAINED BEHAVIOR UNIT TEACHER GENA Primary Care Unavailable AICHHOLZ, SELF CONTAINED BEHAVIOR UNIT TEACHER GENA Attending Unavailable AICHHOLZ, SELF CONTAINED BEHAVIOR UNIT TEACHER GENA Admitting Unavailable AICHHOLZ, SELF CONTAINED BEHAVIOR UNIT TEACHER GENA Consulting Unavailable LEN ., DR ARIZA Attending Unavailable LEN ., DR ARIZA Consulting Unavailable AICHHOLZ, SELF CONTAINED BEHAVIOR UNIT TEACHER GENA Primary Care Unavailable LEN ., DR ARIZA Admitting Unavailable ZIEBER, DR MADDI Wild Consulting Unavailable AICHHOLZ, SELF CONTAINED BEHAVIOR UNIT TEACHER GENA Consulting Unavailable AICHHOLZ, SELF CONTAINED BEHAVIOR UNIT TEACHER GENA Primary Care Unavailable AICHHOLZ, SELF CONTAINED BEHAVIOR UNIT TEACHER GENA Attending Unavailable AICHHOLZ, SELF CONTAINED BEHAVIOR UNIT TEACHER GENA Admitting Unavailable MISC, DR PETERS Admitting Unavailable MISC, DR PETERS Attending Unavailable MISC, DR PETERS Consulting Unavailable AICHHOLZ, SELF CONTAINED BEHAVIOR UNIT TEACHER GENA Primary Care Unavailable AICHHOLZ, SELF CONTAINED BEHAVIOR UNIT TEACHER GENA Primary Care Unavailable AICHHOLZ, SELF CONTAINED BEHAVIOR UNIT TEACHER GENA Attending Unavailable AICHHOLZ, SELF CONTAINED BEHAVIOR UNIT TEACHER GENA Admitting Unavailable AICHHOLZ, SELF CONTAINED BEHAVIOR UNIT TEACHER GENA Consulting Unavailable PROVIDER, UNKNOWN Admitting Unavailable PROVIDER, UNKNOWN Attending Unavailable HERMES, YI Beltran. Referring Unavailabl e WEIDENBECHER, YI S. Admitting Unavailabl e WEIDENBECHER, YI Beltran. Attending Unavailabl e WEIDENBECHER, YI Rebollar Referring Unavailabl e CLEMOW, RIKKI Admitting Unavailable PROVIDER, UNKNOWN Attending Unavailable PROVIDER, UNKNOWN Admitting Unavailable PROVIDER, UNKNOWN Attending Unavailable PATIENT, SELF Referring Unavailable PROVIDER, UNKNOWN Admitting Unavailable PROVIDER, UNKNOWN Attending Unavailable HERMES, YI Beltran. Referring Unavailabl e PROVIDER, UNKNOWN Admitting Unavailable PROVIDER, UNKNOWN Attending Unavailable PATIENT, SELF Referring Unavailable PROVIDER, UNKNOWN Admitting Unavailable PROVIDER, UNKNOWN Attending Unavailable HERMES, YI Beltran. Referring Unavailabl e PROVIDER, UNKNOWN Admitting Unavailable PROVIDER, UNKNOWN Attending Unavailable CLEMOW, RIKKI Referring Unavailable WEIDENBECHER, YI Rebollar Admitting Unavailabl e WEIDENBECHER, YI Beltran. Attending Unavailabl e CLEMOW, RIKKI Admitting Unavailable CLEMOW, RIKKI Attending Unavailable PROVIDER, UNKNOWN Admitting Unavailable PROVIDER, UNKNOWN Attending Unavailable CLEMOW, RIKKI Referring Unavailable PROVIDER, UNKNOWN Admitting Unavailable PROVIDER, UNKNOWN Attending Unavailable PATIENT, SELF Referring Unavailable PROVIDER, UNKNOWN Admitting Unavailable PROVIDER, UNKNOWN Attending Unavailable PROVIDER, UNKNOWN Admitting Unavailable PROVIDER, UNKNOWN Attending Unavailable YI MORENO Referring Unavailabl Gena Landaverde Primary Care Provider MD Wiley Mcmanus Attending Provider Louise Johnson Unavailable Majo Lyman Unavailable Gena Kirby Primary Care Provider [phone] KATHRIN Lyman Attending Provider MD David Martinez Attending Provider David Martinez Unavailable MD Wiley Mcmanus Attending Provider ELIO ELIN W Referring Unavailable AICHHOLZ, GENA J. Primary Care Unavailable PARSELL, ELIN W Referring Unavailable AICHHOLZ, GENA J. Primary Care Unavailable PARSELL, ELIN W Referring Unavailable AICHHOLZ, GENA J. Primary Care Unavailable PARSELL, ELIN W Referring Unavailable AICHHOLZ, GENA J. Primary Care Unavailable PARSELL, ELIN W Referring Unavailable AICHHOLZ, GENA J. Primary Care Unavailable Aichholz, Gena J Primary Care Provider Aictiffholthong, Gena J Primary Care Provider MD Wiley Mcmanus Attending Provider KATHRIN Lyman Attending Provider Kofi Gena J Primary Care Provider MD Wiley Mcmanus Attending Provider MAJO CATALAN Attending Unavailable MARSHALL, LLOYD A Referring Unavailable MARSHALL, LLOYD A Primary Care Unavailable MAJO CATALAN Attending Unavailable MARSHALL, LLOYD A Referring Unavailable MARSHALL, LLOYD A Primary Care Unavailable MAJO CATALAN Attending Unavailable MARSHALL, LLOYD A Referring Unavailable MARSHALL, LLOYD A Primary Care Unavailable MAJO CATALAN Attending Unavailable MARSHALL, LLOYD A Referring Unavailable MARSHALL, LLOYD A Primary Care Unavailable Len, Oswald Attending Provider [phone] Kofi Gena J Primary Care Unavailable Asaad, Imad Admitting Unavailable Asaad, Imad Attending Unavailable Aichholz, Gena J Primary Care Unavailable Len, Oswald Admitting Unavailable Len, Oswald Attending Unavailable Aichludmila, Gena J Primary Care Unavailable Majo Lyman Admitting Unavailable Majo Lyman Attending Unavailable Kofi, Gena Andino Primary Care Unavailable Wiley Mcmanus Admitting Unavailable Wiley Mcmanus Attending Unavailable Gena Kirby Primary Care Unavailable Wiley Mcmanus Admitting Unavailable Wiley Mcmanus Attending Unavailable Gena Kirby Primary Care Unavailable Majo Lyman Admitting Unavailable Majo Lyman Attending Unavailable Wiley Mcmanus Admitting Unavailable Wiley Mcmanus Attending Unavailable Gena Kirby Primary Care Unavailable GENA KIRBY Attending Unavailable ROSHNI ANDERS Attending Unavailable GENA KIRBY Attending Unavailable DO Oswald Harrington Attending Provider HERMES ERNST~[id number], HERMES Beltran Admitting Unavailable HERMES ERNST~[id number], HERMES Beltran Attending Unavailable GENA KIRBY CNP Primary Care Unavailable Medications Current Medications Medication Drug Class(es) [...] Start: 02-25-2022 take 2 tablets by mo [facility] every four hours as needed acetaminophen (TYLENOL) [...] Start: 08-25-2021 take 1 tablet by rosy once daily atenolol (TENORMIN) 100 mg tablet [...] ICU/Step Down cholecalciferol 0.05 mg oral capsule (11 sources) Vitamin D Start: 10-14-2023 take 1 capsule by mouth once daily Cholecalciferol (Vitamin D3) Active 1 CAP PO Daily October 14, 2023 1:00am FreeTextSi capsule Orally Once a day; Note: Source Status: Taking; Provider: Yonathan Diaz ( ) take 1 capsule by [facility] every twenty-four hours Vitamin D3 50 [...] Active dicyclomine hydrochloride 10 mg oral capsule (20 sources) Anticholinergic Start: 11-02-2023 End: 11-02-2023 take 10 mg by mouth four times daily Dicyclomine Active 10 MG PO Four times daily November 02, 2023 4:03pm Start: 10-14-2023 End: 11-02-2023 take 10 mg by mouth three times daily Dicyclomine Discontinued 10 MG PO Three times daily October 14, 2023 1:00am November 02, 2023 4:00pm Start: 08-12-2023 take 1 capsule by [facility] every eight hours Dicyclomine HCl 10 MG [...] Active loperamide hydrochloride 2 mg oral capsule (6 sources) Opioid Agonist Start: 12-06-2023 take 1 [...] by mouth once daily Multiple Vitamins-Minerals (THERAPEUTIC MULTIVITAMIN-MANAGER ACTION ALS) tablet Take 1 tablet by mouth daily 0 Suspended take 1 tablet by mouth once gagan y Multiple Vitamins-Minerals (THERAPEUTIC MULTIVITAMIN-MINERALS) tablet Take 1 tablet by mouth daily 0 Active Multivitamin (One Daily Multivitamin) tablet (7 sources) Start: 10-14-2023 take 1 tablet by [...] 11/17/2021 Active take 2 tablets by mo ohh at bedtime OLANZapine (ZyPREXA) 5 MG tablet Take 10 mg by mouth. hs 0 Active ondansetron 8 mg oral tablet (9 sources) Serotonin-3 Receptor Antagonist Start: 10-14-2023 take 8 mg by mouth every eight hours Ondansetron Hcl Active 8 MG PO Q8H 21 October 14, 2023 1:00am Start: 07-14-2022 take 4 [...] IntraVENous, ONCE PRN, 1 dose, Starting on Tu01/05/22 at 1558, Until Tue01/05/22 at 2359, Nausea [...] chloride 20 meq extended release oral tablet (11 sources) Start: 10-14-2023 take 1 tablet by [...] Husk (Fiber (Psyllium Husk)) 0.4 gram capsule (7 sources) Start: 10-14-2023 Psyllium Husk (Fiber (Psyllium Husk)) 0.4 gram capsule Active 0.8 GM PO Twice daily October 14, 2023 1:00am Start: 10-14-2023 Psyllium Husk (Fiber (Psyllium Husk)) 0.4 gram capsule Active 0.8 GM PO Twice daily October 14, 2023 12:00am QUEtiapine 50 mg oral tablet (18 sources) Atypical Antipsychotic Start: 10-14-2023 Quetiap ine [...] Active saccharomyces boulardii 250 mg oral capsule (7 sources) Start: 10-14-2023 take 1 capsule by mouth once daily Saccharomyces Boulardii (Daily Probiotic (S. Boulardii)) 250 mg capsule Active 250 MG PO Daily October 14, 2023 1:00am sodium chloride 0.111 meq/ml nasal solution (15 sources) Start: 07-17-2022 take 1 spray(s) nasal route twice daily as needed for congestion sodium chloride ([place] Nasal [place]) 0.65 % nasal spray Use 1 [place] in each nostril as needed for Congestion (2 puffs nasally twice daily). 1 mL 3 07/17/2022 Active Start: 07-14-2022 1 [place], Nasal , EVERY 1 HOUR PRN, Starting [...] chloride 60 mg extended release oral capsule (7 sources) Cholinergic Muscarinic Antagonist Start: 11-02-2023 Trospium [...] ) Start: 10-14-2023 take 1 capsule by [facility] once daily at mealtime Venlafaxine (Effexor Xr) [...] Start: 11-30-2021 take 1 capsule by mo [facility] once daily venlafaxine (EFFEXOR XR) 150 MG ER capsule Take 150 mg by mouth daily. 0 11/30/2021 Active Start: 11-30-2021 take 1 capsule by mo [facility] once daily venlafaxine (EFFEXOR XR) 75 MG ER capsule Take 75 mg by mouth daily. 0 11/30/2021 [facility] venlafaxine (EFFEXOR) 75 MG [...] sources) Atypical Antipsychotic Abilify Not-Taking bifidobacterium animalis [id number] unt / lactobacillus acidophilus [id number] unt oral capsule (2 sources) Probiotic CAPS USE DIRECTED. Quantity: 0 Refills: 0 Ordered: 14-Oct-2021 DO Active bisacodyl 5 mg delayed release oral tablet (1 source) Stimulant Laxative Start: 07-14-2022 take 10 mg by mouth once daily as needed 10 mg, Oral, DAILY PRN, Starting on Tue07/14/22 at 1516, Until Discontinued, Constipation, ICU/Step Down budesonide 3 mg delayed release oral capsule (20 sources) Corticosteroid Start: 10-14-2023 End: 12-12-2023 take [...] fumarate 8 mg extended release oral tablet (8 sources) Start: 10-14-2023 End: 11-02-2023 take 1 [...] mg 15 May, 2015 60 mg mesalamine (6 sources) Aminosalicylate Start: 12-12-2023 End: 12-12-2023 take [...] DO Active oseltamivir 75 mg oral capsule (6 sources) Neuraminidase Inhibitor Start: 10-14-19 End: 11-02-19 take 1 capsule by mouth twice daily Oseltamivir (Tamiflu) 75 mg capsule Discontinued 75 MG PO Twice daily 10 October 14, 2023 1:00am November 02, 2023 3:39pm oxymetazoline hydrochloride 0.5 mg/ml nasal spray (1 source) Start: 07-14-20 2 [place], Nasal, EVERY 4 HOURS PRN, Starting on 11/23/22 at 1516, Until Discontinued, Nosebleed, ICU/Step Down potassium phosphate 15 mmol injection in D5W (1 source) Start: 07-16-20 End: 07-16-20 potassium phosphate 15 mmol injection in D5W predniSONE 20 mg oral tablet (6 sources) Start: 10-14-19 End: 11-02-19 take 20 mg by mouth twice daily Prednisone Discontinued 20 MG PO Twice daily 10 October 14, 2023 1:00am November 02, 2023 3:39pm sennosides, assisted 1.76 mg/ml oral solution (20 sources) Start: [...] [HYPERLIPIDEMIA UNSPECIFIED] Onset: 11-16-2022 Chronic Essential hypertension (14 sources) Benign essential hypertension; Translations: [Benign essential hypertension] Onset: 11-16-2022 11-02-2023 Chronic Genitourinary symptoms and ill-defined conditions (4 sources) Urge incontinence of urine; Translations: [Urge incontinence] Onset: 02-23-2022 02-23-2022 Chronic Immunizations and screening for infectious disease (14 sources) Patient encounter status; Translations: [Encounter for [...] Onset: 05-11-2022 Chronic Miscellaneous mental health disorders (4 sources) Not getting enough sleep; Translations: [Insufficient sleep syndrome] Chronic Mood disorders (20 sources) Acute depression; Translations: [Acute depression] Onset: 11-09-2021 Resolved: 11-09-2021 11-19-2021 Chronic Mood disorders (1 source) Mood disorders; Translations: [DEPRESSION UNSPECIFIED] Onset: 11-16-2022 Noninfectious gastroenteritis (6 sources) Microscopic colitis; Translations: [Microscopic colitis, unspecified] 11-02-2023 Chronic Other aftercare (1 source) Other director long term care (current) drug therapy; Translations: [OTH CORRECTION CURRENT DRUG THERAPY] Onset: 11-16-2022 Episodic Other complications of ; puerperium affecting management of mother (1 source) Deliveries by ; Translations: [Delivery by section] 03-13-2024 Episodic Other diseases of bladder and urethra (9 sources) Overactive bladder; Translations: [Overactive bladder] Onset: 02-23-2022 02-23-2022 Chronic Other diseases of bladder and urethra (1 source) Overactive bladder; Translations: [Overactive bladder] Onset: 02-23-2022 Chronic Other gastrointestinal disorders (10 sources) Diarrhea; Translations: [Diarrhea, unspecified] 11-02-2023 Episodic Other gastrointestinal disorders (6 sources) Diarrhea, unspecified; Translations: [Diarrhea] Episodic Other gastrointestinal disorders (11 sources) Fecal urgency; Translations: [Fecal urgency] Episodic Other gastrointestinal disorders (6 sources) Constipation alternates with diarrhea; Translations: [Other specified symptoms and signs involving the digestive system and abdomen] 12-12-2023 Episodic Other gastrointestinal disorders (6 sources) Abdominal bloating; Translations: [Abdominal distension (gaseous)] 12-12-2023 Episodic Other gastrointestinal disorders (6 sources) Urgent desire for stool; Translations: [Fecal urgency] 11-02-2023 Episodic Other gastrointestinal disorders (6 sources) Other specified symptoms and signs involving the digestive system and abdomen; Translations: [Other symptoms involving digestive system] Onset: 12-14-2023 12-12-2023 Episodic Other gastrointestinal disorders (5 sources) Abdominal distension (gaseous); Translations: [Flatulence, eructation, and gas pain] 12-12-2023 Episodic Other gastrointestinal disorders (1 source) Constipation; Translations: [Constipation, unspecified] 03-13-2024 Episodic Other gastrointestinal disorders (1 source) Constipation, unspecified; Translations: [Constipation, unspecified] 03-13-2024 Episodic Other nervous system disorders (10 sources) Sleep-wake schedule disorder, delayed phase type; Translations: [Circadian rhythm sleep disorder, delayed sleep phase type] 03-13-2024 Chronic Other nervous system disorders (2 sources) Circadian rhythm sleep disorder, delayed sleep phase type Onset: 11-09-2021 Resolved: 11-09-2021 Chronic Other nervous system disorders (1 source) Postoperative pain ; Translations: [Other acute postprocedural pain] Episodic Other nutritional; endocrine; and metabolic disorders (2 sources) Obesity; Translations: [Obesity, unspecified] Chronic Other nutritional; endocrine; and metabolic disorders (17 sources) Body mass index 30+ - obesity; [...] apnea, unspecified] 11-19-2021 Chronic Residual codes; unclassified (10 sources) Insomnia; Translations: [Other insomnia] 03-13-2024 Chronic Residual codes; unclassified (5 sources) Obstructive [...] Onset: 11-09-2021 Resolved: 11-09-2021 Chronic Thyroid disorders (6 sources) Disorder of thyroid gland; Translations: [Disorder [...] Test Name Value Interpretation Reference Range Facility [facility] 12-29-2023 L Specimen: [id number] Received: 12/29/23 Status: MALCOLM Cardona Num: [id number] Spec Type: Surgical Subm Dr: Maddi Winston MD Tissues: A Breast Core CALCIFICATIONS (LT BREAST LIQ MICRO) Procedures: HE/12, Gross/Micro L4 Age/ Patient Sex Location Account Attending Physician Isabelle Hewitt I 48/F LABE[facility] [id number] Oswald Len SPEC NUM: [id number] RECD: 12/29/23 STATUS: MALCOLM CARDONA NUM: [id number] ANGEL LUIS: 12/29/23 DR: Maddi Winston MD ENTERED: 12/29/[address] [facility] [address]: Miriam Monterroso Len SPEC TYPE: Surgical DEPT: OLGA VILLALOBOS ORDERED: HE/, Gross/Micro L4 ORDERED: HE, Gross/Micro L4 Pathological Diagnosis Classifications, left breast, [...] Clinical history: Stereotactic breast BX CPT Codes 39835 ---- ---- Specimen: [id number] Received: 12/29/23-1323 Status: MALCOLM Cardona Num: [id number] Spec Type: Surgical Subm Dr: Maddi Winston MD Tissues: A Breast Core CALCIFICATIONS (LT BREAST LIQ MICRO) Procedures: , Gross/Micro L4 ---- Patient: Isabelle Hewitt I [id number] (Continued) ---- Signed (signature on file) Jef Yanes MD 01/02/24 1630 Normal [facility] XR KUBon 12-14-2023 [place] [address] XRay Report Signed Patient: Isabelle Hewitt I MR#: [id number] : 1975 Acct:[id number] Age/Sex: 48 / F ADM Date: 12/14/23 Loc: XD Room: Type: [facility] Attending Dr: Majo Lyman APRN Copies to: [...] Yi Dahl M.D.12/14/2023 6:27 PM Dictation Location: [place] [address] Transcribed By: [facility] 12/14/231826 Dictated By: Yi Dahl II, MD 12/14/231825 Signed By: 12/16/23 0907 Normal [facility] XR KUB [facility] [place] [address] XRay Report Signed Patient: Isabelle Hewitt I MR#: [id number] : 1975 Acct:[id number] Age/Sex: 48 / F ADM Date: 12/14/23 Loc: Room: Type: [facility] Attending Dr: Wiley Mcmanus MD Copies [...] MD 12/14/231825 Signed By: 12/14/231826 Normal [facility] Laboratory - Microbiology an d Antimicrobial susceptibilityOrdered By: Louise Johnson on 10-14-2023 SARS-CoV-2 (COVID-19) RNA JOHNNIE+probe Ql (Unsp spec) [facility] CT UROGRAMon 10-01-2023 CT UROGRAM EXAMINATION: [...] fluid probably physiologic. No suspicious pelvic mass Peritoneum/Retroperito neum: No gross ascites or lymphadenopathy peer Bones/Soft Tissues: No acute abnormality of the bones. The superficial soft tissues show no acute process. IMPRESSION: 1. Decreased stone burden in the left kidney. Residual 5 mm calculus unchanged. 2. No right renal calculus. Ureters unremarkable in there is no bladder lesion. Interpreted by: Oliver Walker MD Signed by: Oliver Walker MD 10/01/23 Final result Normal [facility] Creatinine w/GFRon Creatinine [Mass/Vol] 0.7 mg/dL Normal 0.5-0.9 [facility] Comment on above: Performed By: #### C REG #### [address] [place] [address] Steam Fitter Supervisor: Wiley Wheatley MD GFR/1.73 sq M.predicted among non-blacks MDRD (S/P/Bld) [Vol rate/Area] mL/min/{1.73_m2} Normal >60 [facility] Comment on above: Result Comment: These [...] secretion. Performed By: #### C REG #### [address] [place] [address] Steam Fitter Supervisor: Wiley Wheatley MD Cult,Urineon 09-16-2023 Cult,Urine Specimen Description .CLEAN CATCH URINE Culture NO SIGNIFICANT GROWTH Report Status FINAL 09/16/2023 Normal [facility] Comment on above: Performed By: #### U RC #### [address] [address] Steam Fitter Supervisor: Taiwo Wray MD [facility] [address] [place] [address] [address] [id number] Steam Fitter Supervisor: Wiley Wheatley MD HCG ( test) Sylvia weber Ql (U)Ordered By: David Martinez on 08-08-2023 HCG ( test) Ql (U) Negative [facility] HCG,Urineon 08-08-2023 Beta HCG ( test) Ql (U) Negative Normal [facility] Comment on above: Result Comment: PERF ORMED BY: [place] [address] PATHOLOGIST NATURAL RESOURCES MANAGER CHRIS GUERRERO M.D. Performed By: #### U HCG #### [address] 08-08-2023 L -- ---- Specimen: [id number] Received: 08/08/23 Status: MALCOLM Kaela Num: [id number] Spec Type: Surgical Subm Dr: David Martinez MD Tissues: A Colon Biopsy (RNDM COL BX) Procedures: GREGG/Nella, Gross/Micro L4 ---- Age/ Patient Sex Location Account Attending Physician ---- Isabelle Hewitt Juanita 48/F [id number] David Martinez MD ---- SPEC NUM: [id number] RECD: 08/08/23 STATUS: MALCOLM CARDONA NUM: [id number] ANGEL LUIS: 08/08/23 DR: David Martinez MD ENTERED: 08/08/[address]: LOKESH TYPE: Surgical DEPT: S ENTERED BY: [id number] RECV BY: [id number] ORDERED: HE/2, Gross/Micro L4 ORDERED: HE/2, Gross/Micro [...] microscopic examination confirms the diagnosis. CPT Codes 18334 ---- ---- Specimen: [id number] Received: 08/08/23 Status: MALCOLM Cardona Num: [id number] Spec Type: Surgical Subm Dr: David Martinez MD Tissues: A Colon Biopsy (RNDM COL BX) Procedures: HE/2, Gross/Micro L4 ---- Patient: Isabelle Hewitt I [id number] (Continued) ---- Signed (signature on file) Desmond Sarah MD 08/09/23 0957 Normal [facility] Amylaseon 06-30-2023 Amylase [Catalytic activity/Vol] 42 U/L Normal [facility] Comment on above: Order Comment: Reaso n for Exam Diarrhea, unspecified type Performed By: #### C ALPROTECT, HIV SCREEN, CELIAC, ELASTASE STOOL #### [facility] , #### CRP, LIPASE, TSH3, ROSHNI, ESR #### [address] Amylase [Enzymatic activity/ volume] in Serum or PlasmaOrdered By: Majo Lyman on 06-30-2023 Amylase [Catalytic activity/Vol] 42 U/L [facility] C reactive protein [Mass/vol ume] in Serum or PlasmaOrdered By: Majo Lyman on 06-30-2023 CRP [Mass/Vol] < 0.5 mg/dL 0.0-0.5 [facility] C-Reactive Proteinon 023 CRP [Mass/Vol] mg/L Normal 0.0-0.5 [facility] Comment on above: Order Comment: Reaso n for Exam Diarrhea, unspecified type Performed By: #### C ALPROTECT, HIV SCREEN, CELIAC, ELASTASE STOOL #### [facility] , #### CRP, LIPASE, TSH3, ROSHNI, ESR #### [address] Calprotectin [Mass/mass] in StoolOrdered By: Majo Lyman on 06-30-2023 Calprotectin (Stl) [Mass/Mass] 36 ug/g 0-120 [facility] Comment on above: Concentration Interp retation Follow-Up< 5 - 50 ug/g Normal None>50 -120 ug/g Borderline Re-evaluate in 4-6 weeks >120 ug/g Abnormal Repeat as clinically indicatedPerformed at: [email or web address] [id number] [place], [place] [id number] Director: Andrew Cameron MD, Phone: [phone] Calprotectin, Fecalon 2022 Calprotectin, Fecal 36 Normal 0-120 [facility] Comment on above: Order Comment: Reaso n for Exam Diarrhea, unspecified type Result Comment: Conc entration Interpretation Follow-Up < 5 - 50 ug/g Normal None >50 -120 ug/g Borderline Re-evaluate in 4-6 weeks >120 ug/g Abnormal Repeat as clinically indicated Performed at: [email or web address] - [facility] [id number] [place], [place] [id number] Steam [employer] Supervisor: Andrew Cameron MD, Phone: [phone] PERFORMED BY: [facility] [address] [place] [address] PATHOLOGIST NATURAL RESOURCES MANAGER CHRIS GUERRERO M.D. Performed By: #### C ALPROTECT, HIV SCREEN, CELIAC, ELASTASE STOOL ####[facility] ,#### CRP, LIPASE, TSH3, ROSHNI, ESR ####[facility] [address] Celiacon 06-30-2023 Deamidated Gliadin Abs, IgA 7 Normal 0-19 [facility] Comment on above: Order Comment: Reaso n for Exam Diarrhea, unspecified type Result Comment: Nega tive 0 - 19 Weak Positive 20 - 30 Moderate to Strong Positive >30 Performed By: #### C ALPROTECT, HIV SCREEN, CELIAC, ELASTASE STOOL #### [facility] , #### CRP, LIPASE, TSH3, ROSHNI, ESR #### [facility] [address] Deamidated Gliadin Abs, IgG 2 Normal 0-19 [facility] Comment on above: Order Comment: Reaso n for Exam Diarrhea, unspecified type Result Comment: Nega tive 0 - 19 Weak Positive 20 - 30 Moderate to Strong Positive >30 Performed By: #### C ALPROTECT, HIV SCREEN, CELIAC, ELASTASE STOOL #### [facility] , #### CRP, LIPASE, TSH3, ROSHNI, ESR #### [facility] [address] Endomysial Antibody IgA Negative Normal Negative [facility] Comment on above: Order Comment: Reaso n for Exam Diarrhea, unspecified type Performed By: #### C ALPROTECT, HIV SCREEN, CELIAC, ELASTASE STOOL #### [facility] , #### CRP, LIPASE, TSH3, ROSHNI, ESR #### [facility] [address] [place] [address] [place] Immunoglobulin A, Qn, Serum 505 mg/dL High 87-352 [facility] Comment on above: Order Comment: Reaso n for Exam Diarrhea, unspecified type Result Comment: Perf ormed at: - [facility] [address] [id number] Steam [employer] Supervisor: Fran Guthrie PhD, Phone: [phone] Performed By: #### C ALPROTECT, HIV SCREEN, CELIAC, ELASTASE STOOL #### [facility] , #### CRP, LIPASE, TSH3, ROSHNI, ESR #### [facility] [address] T-Transglutaminase (tTG) IgA <2 Normal 0-3 [facility] Comment on above: [...] #### CRP, LIPASE, TSH3, ROSHNI, ESR #### [facility] [address] T-Transglutaminase (tTG) IgG <2 Normal 0-5 [facility] Comment on above: Order Comment: Reaso n for Exam Diarrhea, unspecified type Result Comment: Nega tive 0 - 5 Weak Positive 6 - 9 Positive >9 Performed By: #### C ALPROTECT, HIV SCREEN, CELIAC, ELASTASE STOOL #### [facility] , #### CRP, LIPASE, TSH3, ROSHNI, ESR #### [facility] [address] [place] [address] Elastase.pancreatic [Mass/ma ss] in StoolOrdered By: Majo Lyman on 06-30-2023 Elastase.pancreatic (Stl) [Mass/Mass] 327 >200 [facility] Comment on above: Result Units: ug Nighat st./g Severe Pancreatic Insufficiency: <100 Moderate Pancreatic Insufficiency: 100 - 200 Normal: >200Performed at: - [facility] [id number] Director: Andrew Cameron MD, Phone: [phone] Erythrocyte Sedimentation Ra zari 06-30-2023 ESR (Bld) [Velocity] 51 mm/h High 0-19 [facility] Comment on above: Order Comment: Reaso n for Exam Diarrhea, unspecified type Result Comment: PERF ORMED BY: [place] [address] PATHOLOGIST NATURAL RESOURCES MANAGER CHRIS GUERRERO M.D. Performed By: #### C ALPROTECT, HIV SCREEN, CELIAC, ELASTASE STOOL #### [facility] , #### CRP, LIPASE, TSH3, ROSHNI, ESR #### [facility] [address] Erythrocyte sedimentation ra te by Photometric methodOrdered By: Majo Lmyan on 06-30-2023 ESR Photometric method (Bld) [Velocity] 51 mm/hr 0-19 [facility] HIV 1/O/2 Antigen/Antibodyon 06-30-2023 HIV Screen 4th Generation Non-Reactive Normal Non Reactive [facility] Comment on above: Order Comment: Reaso n for Exam Diarrhea, unspecified type Result Comment: HIV Negative HIV-1/HIV-2 antibodies and HIV-1 p24 antigen were NOT detected. There is no laboratory evidence of HIV infection. Performed at: [facility] [address] [id number] Steam Fitter Supervisor: Fran Guthrie PhD, Phone: [phone] PERFORMED BY: [place] [address] PATHOLOGIST NATURAL RESOURCES MANAGER CHRIS GUERRERO M.D. Performed By: #### C ALPROTECT, HIV SCREEN, CELIAC, ELASTASE STOOL ####[facility] ,#### CRP, LIPASE, TSH3, ROSHNI, ESR ####[place] [id number] HIV 1 and HIV-2 antibody ass ay with HIV-1 p24 antigen detectionOrdered By: Majo Lyman on 06-30-2023 HIV 1+2 Ab+HIV1 p24 Ag IA Ql Non-Reactive Non Reactive [facility] Comment on above: HIV NegativeHIV-1/HI V-2 antibodies and HIV-1 p24 antigen were NOTdetected. There is no laboratory evidence of HIV infection.Performed at: [facility] [address] [id number] Director: Fran Guthrie PhD, Phone: [phone] IgA [Mass/volume] in Serum o r PlasmaOrdered By: Majo Lyman on 06-30-2023 IgA [Mass/Vol] 505 mg/dL 87-352 [facility] Comment on above: Performed at: CB - [facility] [address] [id number] Director: Fran Guthrie PhD, Phone: [phone] Lipaseon 06-30-2023 Lipase [Catalytic activity/Vol] 45.0 U/L Normal 11.0-82.0 [facility] Comment on above: Order Comment: Reaso n for Exam Diarrhea, unspecified type Performed By: #### C ALPROTECT, HIV SCREEN, CELIAC, ELASTASE STOOL #### [facility] , #### CRP, LIPASE, TSH3, ROSHNI, ESR #### [address] Lipase [Enzymatic activity/v olume] in Serum or PlasmaOrdered By: Majo Lyman on 06-30-2023 Lipase [Catalytic activity/Vol] 45.0 U/L 11.0-82.0 [facility] No Panel InformationOrdered By: Majo Lyman on 06-30-2023 Endomysial IgA Antibody Negative Negative F [facility] Pancreatic Elastase, Stoolon 06-30-2023 Pancreatic Elastase, Stool 327 Normal >200 [facility] Comment on above: Order Comment: Reaso n for Exam Diarrhea, unspecified type Result Comment: Resu lt Units: ug Elast./g Severe Pancreatic Insufficiency: <100 Moderate Pancreatic Insufficiency: 100 - 200 Normal: >200 Performed at: - [facility] [id number] Steam Fitter Supervisor: Andrew Cameron MD, Phone: [phone] PERFORMED BY: [place] [address] PATHOLOGIST NATURAL RESOURCES MANAGER CHRIS GUERRERO M.D. Performed By: #### C ALPROTECT, HIV SCREEN, CELIAC, ELASTASE STOOL ####[facility] ,#### CRP, LIPASE, TSH3, ROSHNI, ESR ####[facility] [id number] [facility] [place] [address] [facility] Serum gliadin peptide IgA an tibody assay (units/volume)Ordered By: Majo Lyman on 06-30-2023 Gliadin peptide IgA Qn (S) 7 units 0-19 [facility] Comment on above: Negative 0 - 19 Weak Positive 20 - 30 Moderate to Strong Positive >30 Serum gliadin peptide IgG an tibody assay (units/volume)Ordered By: Majo Lyman on 06-30-2023 Gliadin peptide IgG Qn (S) 2 units 0-19 [facility] Comment on above: Negative 0 - 19 Weak Positive 20 - 30 Moderate to Strong Positive >30 Serum tissue transglutaminas e (tTG) IgA antibody assay (units/volume)Ordered By: Majo Lyman on 06-30-2023 tTG IgA Qn (S) <2 U/mL 0-3 [facility] Comment on above: Negative 0 - 3 Weak Positive 4 - 10 Positive >10 Tissue Transglutaminase (tTG) has been identified as the endomysial antigen. Studies have demonstr- ated that endomysial IgA antibodies have over 99% specificity for gluten sensitive enteropathy. Serum tissue transglutaminas e (tTG) IgG antibody assay (units/volume)Ordered By: Majo Lyman on 06-30-2023 tTG IgG Qn (S) <2 U/mL 0-5 [facility] Comment on above: Negative 0 - 5 Weak Positive 6 - 9 Positive >9 Thyroid Stimulating Hormoneo n 06-30-2023 TSH Qn 0.57 m[IU]/L Normal 0.45-5.33 [facility] Comment on above: Order Comment: Reaso n for Exam Diarrhea, unspecified type Result Comment: PERF ORMED BY: [facility] [address] [place] [address] PATHOLOGIST NATURAL RESOURCES MANAGER CHRIS GUERRERO M.D. Performed By: #### C ALPROTECT, HIV SCREEN, CELIAC, ELASTASE STOOL #### [facility] , #### CRP, LIPASE, TSH3, ROSHNI, ESR #### [facility] [address] Thyrotropin [Units/volume] i n Serum or PlasmaOrdered By: Majo Lyman on 06-30-2023 TSH Qn 0.57 m[IU]/L 0.45-5.33 [facility] COVID + FLU Quick Testingon 06-07-2023 SARS-CoV-2 (COVID-19) RNA JOHNNIE+probe Ql (Unsp spec) Negative [employer] Other COVID + FLU Quick Testing Negative [employer] Other Quick Strepon 06-07-2023 S. pyogenes Org specific cx Ql (Throat) Negative [facility] Other Quick Strep [employer] Other XR ABDOMEN (KUB) (SINGLE AP VIEW)on [...] Perry Neely DO 03/12/23 Final result Normal [facility] Telephone Encounteron 2022 [employer] Authentication Interface Message Text Situation: Patient called in Background: She says that she wanted to let provider know taht she would be following a different dr to his new practice for follow up treatment Assessment: NA Recommendation: Please advise and george patient if needed at Phone numbers Thank You Normal [facility] [employer] [facility] [employer] Authentication Interface Message Text Called and left voicemail for patient. Post-op Home Sleep Test reviewed from [facility], and there is considerable improvement. Pre-op AHI is 102, now down to 31. Pre-op O2 Carlene of 71%, now up to 82%. However, still with considerable desat time. There are notes from Dr. Moreno evaluating for INSPIRE I presume, but nothing since November. Asked patient for call back or [employer] message with if she has been able to continue with Dr. Moreno at his new office, or if she needs referral to another [facility] ENT. -montrell Normal [facility] MG MAMM SCREEN 3D LEEANNE CADon 01-18-2023 MG MAMM SCREEN 3D LEEANNE CAD Patient: ISABELLE HEWITT I. 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 on 01/19/2023 at 13:37 Normal [facility] Cult,Urineon 12-14-2022 Cult,Urine Specimen Description .CLEAN CATCH URINE Culture NO GROWTH Report Status FINAL 12/14/2022 Normal [facility] Comment on above: Performed By: #### U #### [facility] [address] [place] [address] Steam Fitter Supervisor: Taiwo Wray MD [facility] [address] [place], [place] [id number] Steam Fitter Supervisor: Wiley Wheatley MD Urinalysis w/ Microon 2022 Bacteria TRACE Abnormal NONE [facility] Comment on above: Performed By: #### U AMIC #### [facility] [address] [place] [address] Steam Fitter Supervisor: Wiley Wheatley MD Bilirubin, SemiQt,Ur Negative Normal NEG [facility] Comment on above: Performed By: #### U AMIC #### [facility] [address] [place] [id number] Steam Fitter Supervisor: Wiley Wheatley MD Blood, Urine Negative Normal NEG [facility] Comment on above: Performed By: #### U AMIC #### [facility] [address] [place] [address] Dr. [place], [place] [id number] Steam Fitter Supervisor: Wiley Wheatley MD Clarity (U) Clear Normal CLEAR [facility] Comment on above: Performed By: #### U AMIC #### [facility] [address] [place] [address] Dr. [place], [facility] Steam Fitter Supervisor: Wiley Wheatley MD Color (U) Yellow Normal YEL [facility] Comment on above: Performed By: #### U AMIC #### [facility] [address] [place] [address] Dr. [place], [facility]83 Steam Fitter Supervisor: Wiley Wheatley MD Epithelial cells LM Ql (Urine sed) 0 TO 2 Normal 0-25 [facility] Comment on above: Performed By: #### U AMIC #### [facility] [address] [place], [place] [address] Steam Fitter Supervisor: Wiley Wheatley MD Glucose Ql (U) Negative Normal NEG [facility] Comment on above: Performed By: #### U AMIC #### [facility] [address] [place] [address] Steam Fitter Supervisor: Wiley Wheatley MD Ketones Ql (U) Negative Normal NEG [facility] Comment on above: Performed By: #### U AMIC #### [facility] [address] [place], [place] [address] Steam Fitter Supervisor: Wiley Wheatley MD Leukocyte esterase Test strip Ql (U) Negative Normal NEG [facility] Comment on above: Performed By: #### U AMIC #### [facility] [address] [place], [place] [address] Steam Fitter Supervisor: Wiley Wheatley MD Nitrite,Ur Negative Normal NEG [facility] Comment on above: Performed By: #### U AMIC #### [facility] [address] [place] [address] Dr. [place], [place] [id number] Steam Fitter Supervisor: Wiley Wheatley MD PH,Ur 6.5 Normal 5.0-9.0 [facility] Comment on above: Performed By: #### U AMIC #### [facility] [address] [place] [address] Dr. [place], [place] [id number] Steam Fitter Supervisor: Wiley Wheatley MD Protein Ql (U) Negative Normal NEG [facility] Comment on above: Performed By: #### U AMIC #### [facility] [address] [place] [address] Dr. [place], [place] [address]383 Steam Fitter Supervisor: Wiley Wheatley MD Spec. [place],Ur <1.005 Low 1.010-1.020 [facility] Comment on above: Performed By: #### U AMIC #### [facility] [address] [place], [place] [address] Steam Fitter Supervisor: Wiley Wheatley MD Urine RBC's None Normal 0-2 [facility] Comment on above: Performed By: #### U AMIC #### [facility] [address] [place], [place] [id number] Steam Fitter Supervisor: Wiley Wheatley MD Urine WBC's None Normal 0-5 [facility] Comment on above: Performed By: #### U AMIC #### [facility] [address] [place] [address] Steam Fitter Supervisor: Wiley Wheatley MD Urobilinogen,Ur Normal Normal NORM [facility] Comment on above: Performed By: #### U AMIC #### [facility] [address] [place] [address] Steam Fitter Supervisor: Wiley Wheatley MD Urinalysis with Microscopico n 12-13-2022 Bacteria, UA TRACE Abnormal None [facility] Bilirubin Urine Negative NEGATIVE [facility] Color, UA Yellow Yellow [facility] Epithelial Cells UA 0 TO 2 [facility] Glucose Auto test strip (U) [Mass/Vol] Negative NEGATIVE [facility] Interpretation and review of laboratory results Abnormal [facility] Ketones (U) [Mass/Vol] Negative NEGATIVE [facility] Leukocyte esterase Auto test strip Ql (U) Negative NEGATIVE [facility] Nitrite Auto test strip Ql (U) Negative NEGATIVE [facility] Protein (U) [Mass/Vol] 6.5 mg/dL 5.0 - 9.0 [facility] Protein (U) [Mass/Vol] Negative NEGATIVE [facility] RBC clumps Auto (Urine sed) [#/Area] None [facility] Specific [place], UA Low 1.010 - 1.020 [facility] Turbidity UA Clear Clear [facility] Urine Hgb Negative NEGATIVE [facility] Urobilinogen, Urine Normal Normal [facility] WBC, UA None [facility] Covid-19 PCR (CVDTBH)on SARS-CoV-2 (COVID-19) RNA JOHNNIE+probe Ql (Unsp spec) Not detected Normal NOT DETECTED [facility] Comment on above: Result Comment: This test is not yet approved or cleared by the [place] FDA. When there are no FDA-approved or cleared tests available, and other criteria are met, FDA can make tests available under an emergency access mechanism called an Emergency Use Authorization (EUA). The EUA for this test is supported by the [place] of Health and Human Service's (HHS's) declaration [...] SARS-CoV-2. Performed By: #### C VDTB #### [facility] [address] [place] [address] Dr. Stephanie Gibbs INFLUENZA A AND B [facility] 11-26 [facility] SEE BELOW Normal [facility] Comment on above: Result Comment: Nega tive for Flu A protein angiten. Infection due to Flu A cannot be ruled out. Flu A angiten in the sample may be below the detection limit of the test. Performed By: #### I NFLUAB #### [facility] [address] [place] [address] Dr. Stephanie [facility] Normal [facility] Comment on above: Result Comment: Nega tive for Flu B protein antigen. Infection due to Flu B cannot be ruled out. Flu B antigen in the sample may be below the detection limit of the test. Performed By: #### I NFLUAB #### [facility] [address] [place] [address] Dr. Stephanie Gibbs INFLUENZA A AG Negative Normal NEGATIVE SEE COMMENT [facility] Comment on above: Performed By: #### I NFLUAB #### [facility] [address] [place] [address] Dr. Stephanie Gibbs INFLUENZA B AG Negative Normal NEGATIVE SEE COMMENT [facility] Comment on above: Performed By: #### I NFLUAB #### [facility] [address] [place] [address] Dr. Stephanie Gibbs SYMPTOMATIC COVID-19 ANTIGEN on 11-26-2022 EUA Statement SEE BELOW Normal [facility] Comment on above: Result Comment: This [...] sooner. Performed By: #### C BC #### [facility] [address] [place] [address] Dr. Stephanie Gibbs SARS-CoV-2 (COVID-19) RNA JOHNNIE+probe Ql (Unsp spec) Negative Normal NEGATIVE [facility] Comment on above: Performed By: #### C BC #### [facility] [address] [place] [address] Dr. Stephanie Gibbs Telephone Encounteron 2022 Offal [employer] Authentication Interface Message Text Requesting sleep study results and next steps. Please advise. Normal [facility] [facility] CBC AUTO DIFFon 11-12-2022 BASO # 0.1 103/ul Normal 0.0-0.1 [facility] Comment on above: Performed By: #### C BC #### [facility] [address] [place] [address] Dr. Stephanie Gibbs Basophils/100 WBC (Bld) 0.9 % Normal 0.2-2.0 [facility] Comment on above: Performed By: #### C BC #### [facility] [address] [place] [address] Dr. Stephanie Gibbs EO # 0.3 103/ul Normal 0.0-0.7 [facility] Comment on above: Performed By: #### C BC #### [facility] [address] [place] [address] Dr. Stephanie Gibbs Eosinophils/100 WBC (Bld) 4.7 % Normal 0.9-7.0 [facility] Comment on above: Performed By: #### C BC #### [facility] [address] [place] [address] Dr. Stephanie Gibbs Erythrocyte distribution width (RBC) [Ratio] 13.4 % Normal 11.0-15.0 [facility] Comment on above: Performed By: #### C BC #### [facility] [address] [place] [address] Dr. Stephanie Gibbs Hematocrit (Bld) [Volume fraction] 43.0 % Normal 36.0-48.0 [facility] Comment on above: Performed By: #### C BC #### [facility] [address] [place] [address] Dr. Stephanie Gibbs Hemoglobin (Bld) [Mass/Vol] 13.9 g/dL Normal 12.0-16.0 [facility] Comment on above: Performed By: #### C BC #### [facility] [address] [place] [address] Dr. Stephanie Gibbs IG # 0.01 10e3/ul Normal 0.00-0.03 [facility] Comment on above: Performed By: #### C BC #### [facility] [address] [place] [address] Dr. Stephanie Gibbs IG % 0.2 % Normal 0.0-0.5 [facility] Comment on above: Performed By: #### C BC #### [facility] [address] [place] [address] Dr. Stephanie Gibbs LYMPH # 2.3 103/ul Normal 1.2-3.8 [facility] Comment on above: Performed By: #### C BC #### [facility] [address] [place] [address] Dr. Stephanie Gibbs Lymphocytes/100 WBC (Bld) 36.6 % Normal 20.5-60.0 [facility] Comment on above: Performed By: #### C BC #### [facility] [address] [place] [address] Dr. Stephanie Gibbs MANUAL DIFF REQ NO Normal [facility] Comment on above: Performed By: #### C BC #### [facility] [address] [place] [address] Dr. Stephanie Gibbs MCH (RBC) [Entitic mass] 29.7 pg Normal 26.7-34.0 [facility] Comment on above: Performed By: #### C BC #### [facility] [address] [place] [address] Dr. Stephanie Gibbs MCHC (RBC) [Mass/Vol] 32.3 g/dL Normal 29.9-35.2 [facility] Comment on above: Performed By: #### C BC #### [facility] [address] [place] [address] Dr. Stephanie Gibbs MCV (RBC) [Entitic vol] 91.9 fL Normal 81.0-99.0 [facility] Comment on above: Performed By: #### C BC #### [facility] [address] [place] [address] Dr. Stephanie Gibbs MONO # 0.5 103/ul Normal 0.3-0.8 [facility] Comment on above: Performed By: #### C BC #### [facility] [address] [place] [address] Dr. Stephanie Gibbs Monocytes/100 WBC (Bld) 8.3 % Normal 1.7-12.0 [facility] Comment on above: Performed By: #### C BC #### [facility] [address] [place] [address] Dr. Stephanie Gibbs NEUT # 3.2 103/ul Normal 1.4-6.5 [facility] Comment on above: Performed By: #### C BC #### [facility] [address] [place] [address] Dr. Stephanie Gibbs Neutrophils/100 WBC (Bld) 49.3 % Normal 43.0-75.0 [facility] Comment on above: Performed By: #### C BC #### [facility] [address] [address] [address] Stephanie Gibbs Platelet mean volume (Bld) [Entitic vol] 9.6 fL Normal 9.5-13.5 [facility] Comment on above: Performed By: #### C BC #### [facility] [address] [place] [address] Dr. Stephanie Gibbs PLT 250 103/ul Normal 150-450 [facility] Comment on above: Performed By: #### C BC #### [facility] [address] [place] [address] Dr. Stephanie Gibbs RBC 4.68 106/ul Normal 4.20-5.40 [facility] Comment on above: Performed By: #### C BC #### [facility] [address] [place] [address] Dr. Stephanie Gibbs WBC 6.4 103/ul Normal 4.0-11.0 [facility] Comment on above: Performed By: #### C BC #### [facility] [address] [place] [address] Dr. Stephanie Gibbs POINT OF CARE GLUCOSEon - Glucose [Mass/Vol] 97 mg/dL Normal 74-106 [facility] Comment on above: Performed By: #### P OCGLUC #### [facility] [address] [place] [address] Dr. Stephanie Gibbs PREG QUANT HCGon 11-12-2022 HCG QUANT 3 mIU/mL Normal [facility] Comment on above: Performed By: #### C BC #### [facility] [address] [place] [address] Dr. Stephanie Gibbs HCG RANGE SEE BELOW Normal [facility] Comment on above: Result Comment: 5-50 0.2-1 WEEK 50-500 1-2 WEEKS 100-5,000 2-3 WEEKS 500-10,000 3-4 WEEKS 1,000-50,000 4-5 WEEKS 10,000-100,000 5-6 WEEKS 15,000-200,000 6-8 WEEKS 10,000-100,000 2-3 MONTHS Performed By: #### C BC #### [facility] [address] [place] [address] Dr. Stephanie Gibbs Telephone Encounteron 2022 Offal Roller Authentication Interface Message Text Opened in error Normal [facility] Telephone Encounteron 2022 Offal Roller Authentication Interface Message Text Called patient and left voicemail. Advised that order for post-op PSG was faxed to [facility]. Left number to call to schedule study at her convenience ([phone]) Normal [facility] Progress Noteson 10-19-2022 Offal Roller Authentication Interface Message Text CC: sleep disordered [...] residual base of tongue obstruction. Normal [facility] Telephone Encounteron 2022 Offal Roller Authentication Interface Message Text PT calling back to check status of her FMLA paperwork from [employer]. I verified the correct fax # PT was using ) I called over to PS dept , spoke to Seferino and he stated to have the PT to send it to the e-mail address [email or web address] PT will put ATTN: to Dr. Rodrigues. PT asks to have the paperwork filled out HOLA as it it due soon ( PT didn't state a sate just that it was due) Please call PT once received Normal [facility] Telephone Encounteron 2022 Offal Roller Authentication Interface Message Text Patient calling in to see if her FMLA papers were received. Paperwork not scanned into the chart at this time. Please call the patient with confirmation of receipt of the FMLA papers at [phone]. Thank you! Normal [facility] Progress Noteson 09-08-2022 Offal Roller Authentication Interface Message Text Teaching Physician Note: [...] physician. Rikki Rodrigues DMD, MD Normal [facility] Telephone Encounteron 2022 Offal Roller Authentication Interface Message Text PT calling in stating she will be sending new FMLA forms via fax tomorrow due to the library being closed today. PT states Dr. Rodrigues has to fill that paperwork out just like he did for [employer]. PT states the company she works for switched [employer]. Please call PT if any questions. PT was just seen on 08/30/22 Normal [facility] FREE T4on 09-02-2022 Free T4 [Mass/Vol] 1.01 ng/dL Normal 0.76-1.46 [facility] Comment on above: Performed By: #### F T4 #### [facility] [address] [address] [address] Stephanie Gibbs TSHon 09-02-2022 TSH 0.745 uIU/mL Normal 0.358-3.740 [facility] Comment on above: Performed By: #### T SH #### [facility] [address] [place], [place] [address] Dr. Stephanie Gibbs Telephone Encounteron 2022 Offal Roller Authentication Interface Message Text PT calling in stating she had new FMLA forms to be faxed to Dr. Rodrigues. PT stated her job was going through [employer] and now is going through [employer]. saw PT for surgery on 07/14. PT had a televisit follow up on 07/23, but has cancelled every other follow up on 08/02 , 08/13 AND 08/30. PT stated Dr. Rodrigues had her off work since 07/14/22-08/30/2022. Please see social media senior associate- dates are different Please reach out to PT to discuss and when forms are ready to be filled out [phone] Normal [facility] Patient Instructionson 08-30 Offal Roller Authentication Interface Message Text With clean hands massage gums under your upper lip daily at night time No food restrictions Follow up with your dentist We will contact your Sleep Center in [place] to have a Sleep Study completed in 1.5 months. Normal [facility] Progress Noteson 08-30-2022 Offal Roller Authentication Interface Message Text ORAL SURGERY CLINIC [...] -Complete sleep study with Dr. Mcmanus in [place], [place] in 1.5 months -Follow up with patient's general dentist, Sinan Jones DDS for denture adjustment Follow-Up: After new sleep study Follow up sooner with new or worsening symptoms. Sinan Jones DDS [place] [id number] [address] [facility] [place] [address] Wiley Mcmanus MD [facility] [address] [place] [id number] Seferino Vaz DMD [facility] Resident Normal [facility] Urinalysis with Microscopico n 08-12-2022 Bacteria, UA 2+ Abnormal None [facility] Bilirubin Urine Negative NEGATIVE [facility] Color, UA Yellow Yellow [facility] Epithelial Cells UA 0 TO 2 [facility] Glucose, Ur Negative NEGATIVE [facility] Interpretation and review of laboratory results Abnormal [facility] Ketones Ql (U) Negative NEGATIVE [facility] Leukocyte esterase Test strip Ql (U) SMALL Abnormal NEGATIVE [facility] Nitrite, Urine Negative NEGATIVE [facility] pH, UA 6.5 5.0 - 9.0 [facility] Protein, UA 1+ Abnormal NEGATIVE [facility] RBC, UA 0 TO 2 [facility] Specific [place], UA High 1.010 - 1.020 [facility] Turbidity UA Cloudy Abnormal Clear [facility] Urine Hgb 1+ Abnormal NEGATIVE [facility] Urobilinogen, Urine Normal Normal [facility] WBC, UA 50 TO 100 [facility] Telephone Encounteron 2021 Offal Roller Authentication Interface Message Text Called the patient twice this week to remind her regarding the follow up this Tuesday (08/13/22) and to offer to follow up sooner if she prefers. Patient did not answer. Message was left. Also attempted to call the alternative work number listed. Was unable to reach the patient at this number. Jerel Villegas DDS, MD [facility]- PGY4 [phone] Normal [facility] Telephone Encounteron 2021 Offal Roller Authentication Interface Message Text Called pt. No answer. LVM with callback instructions. Per Dr. Rodrigues, we will not write any work excuse notes or prescribe any pain meds until pt is seen in person for follow up. Oliver Rogers DMD Normal [facility] Offal Roller Authentication Interface Message Text Pt called because [...] options if that is the case. Email: [email or web address] Contact pt @[phone] for questions/concerns Normal [facility] Telephone Encounteron 2021 Offal Roller Authentication Interface Message Text Patient called in [...] Please call the patient to advise at [phone]. Thank you! Normal [facility] Telephone Encounteron 2021 Offal Roller Authentication Interface Message Text Spoke with patient and instructed her to come in earlier Tuesday afternoon, preferably between 1:00 and 2:00 pm. Also reminded her to bring dentures with her as we would like to assess her occlusion with dentures in place. Patient voiced understanding and agreed to arrive early for her appointment on Tuesday. Mikal Rodgers DMD wagon driver salesperson, PGY-3 Team Pager: [phone] Normal [facility] Telephone Encounteron 2021 Offal Roller Authentication Interface Message Text Patient called stating she needs a back to work slip. Requested a call back [phone]. Thank you! Normal [facility] Progress Noteson 07-23-2022 Offal Roller Authentication Interface Message Text [facility] CLINIC [...] new or worsening symptoms. Mikal Rodgers DMD wagon driver salesperson, PGY-3 Team Pager: [phone] Normal [facility] Progress Noteson 07-19-2022 Offal Roller Authentication Interface Message Text Initial pre-surgical workup photos: Normal [facility] BASIC METABOLIC PANELon 06-23 Anion gap [Moles/Vol] 13 mmol/L Normal 10-20 [facility] Comment on above: Performed By: #### MILO Mattson CH8 #### [facility] [address] [place] [address], Calcium [Mass/Vol] 7.9 mg/dL Low 8.4-10.4 [facility] Comment on above: Performed By: #### MILO Mattson CH8 #### [facility] [address] [place] [address], Chloride [Moles/Vol] 105 mmol/L Normal 97-111 [facility] Comment on above: Performed By: #### MILO Mattson CH8 #### [facility] [address] [place] [address], CO2 [Moles/Vol] 30 mmol/L Normal 21-30 [facility] Comment on above: Performed By: #### MILO Mattson CH8 #### [facility] [address] [place] [address], Creatinine [Mass/Vol] 0.84 mg/dL Normal 0.50-1.10 [facility] Comment on above: Performed By: #### MILO Mattson CH8 #### [facility] [address] [place] [address], ESTIMATED GFR (CKD-EPI) 86 mL/min/1.73sqm Normal >=60 [facility] Comment on above: Result Comment: 2020 CKD EPI Equation using Creatinine without Race Comment: Estimated glomerular filtration rate (eGFR) is calculated without a race coefficient. Values should be interpreted in the context of the patient's full clinical presentation. Reference: 1. Len Acevedo, Mandie M, Hank DC, et al.. A Unifying Approach for GFR Estimation: Recommendations of the NKF-ASN Task Force on Reassessing the Inclusion of Race in Diagnosing Kidney Disease. Tristanian Journal of Kidney Diseases 202;79(2):268-88.e1. 2. N Engl J Med 2020 Vol. 385 Issue 19 Pages 9455-7920 Performed By: #### MILO Mattson CH8 #### [facility] [address] [place] [address], Glucose [Mass/Vol] 85 mg/dL Normal 68-110 [facility] Comment on above: Performed By: #### MILO Mattson CH8 #### [facility] [address] [place] [address], Potassium [Moles/Vol] 3.7 mmol/L Normal 3.3-5.3 [facility] Comment on above: Performed By: #### MILO Mattson CH8 #### [facility] [address] [place] [address], Sodium [Moles/Vol] 144 mmol/L Normal 135-148 [facility] Comment on above: Performed By: ###MILO Sierra CH8 #### [facility] [address] [place] [address], Urea nitrogen [Mass/Vol] 10 mg/dL Normal 8-22 [facility] Comment on above: Performed By: #### MILO Mattson CH8 #### [facility] [address] [place] [address], Basic metabolic 2000 panelon 07-17-2022 Anion gap [Moles/Vol] 13 mmol/L 10 - 20 [facility] Calcium [Mass/Vol] 7.9 mg/dL Low 8.4 [...] Inclusion of Race in Diagnosing Kidney Disease. Tristanian Journal of Kidney Diseases 2021;79(2):268-88.e1. 2. N Engl J Med 1 Vol. 385 Issue 19 Pages 9260-6902 Glucose [Mass/Vol] 85 mg/dL 68 - 110 [...] Hospital RBC (Bld) [#/Vol] 3.33 10*6/uL Low [facility] WBC (Bld) [#/Vol] 8.7 10*3/uL 4.5 - 11.5 K/uL [facility] COMPLETE BLOOD COUNTon 07-17 Erythrocyte distribution width (RBC) [Ratio] 13.7 % Normal 11.5-14.5 [facility] Comment on above: Performed By: #### MILO Mattson CH8 #### [facility] [address] [place] [address], Hematocrit (Bld) [Volume fraction] 32.8 % Low 36.0-46.0 [facility] Comment on above: Performed By: #### MILO Mattson CH8 #### [facility] [address] [place] [address], Hemoglobin (Bld) [Mass/Vol] 10.8 g/dL Low 12.0-15.0 [facility] Comment on above: Performed By: #### MILO Mattson CH8 #### [facility] [address] [place] [address], MCH (RBC) [Entitic mass] 32.5 pg Normal 26.0-34.0 [facility] Comment on above: Performed By: #### MILO Mattson CH8 #### [facility] [address] [place] [address], MCHC (RBC) [Mass/Vol] 32.9 g/dL Normal 32.0-35.9 [facility] Comment on above: Performed By: #### MILO Mattson CH8 #### [facility] [address] [place] [address], MCV (RBC) [Entitic vol] 99 fL Normal 80-100 T [facility] Comment on above: Performed By: #### M G, PHOS, CH8 #### [facility] [address] [place], [place], Platelet mean volume (Bld) [Entitic vol] 8.0 fL Normal 7.5-11.2 [facility] Comment on above: Performed By: #### MILO Mattson CH8 #### [facility] [address] [place], [place], Platelets (Bld) [#/Vol] 214 10*3/uL Normal 150-400 [facility] Comment on above: Performed By: #### MILO Mattson CH8 #### [facility] [address] [place], [place], RBC (Bld) [#/Vol] 3.33 10*6/uL Low 4.00-5.20 [facility] Comment on above: Performed By: #### MILO Mattson CH8 #### [facility] [address], [place], WBC (Bld) [#/Vol] 8.7 10*3/uL Normal 4.5-11.5 [facility] Comment on above: Performed By: #### MILO Mattson CH8 #### [facility] [address], [place], Care Plan Noteon 07-17-2022 Offal Roller Authentication Interface Message Text Problem: Discharge Planning: [...] discharged home with family member. Normal [facility] Offal Roller Authentication Interface Message Text Problem: Routine Care: [...] will be met Outcome: Progressing Normal [facility] GLUCOSE, FINGERSTICK-IN OFFI CEon 07-17-2022 Glucose [Mass/Vol] 81 mg/dL Normal 68-110 [facility] Comment on above: Performed By: #### 8 [id number] ####NURSING GLUCOSE [id number] [place], [address] Glucose [Mass/Vol] 81 mg/dL 68 - 110 mg/dL [facility] Interpretation and review of laboratory results Normal [facility] Glucose [Mass/Vol] 93 mg/dL Normal 68-110 [facility] Comment on above: Performed By: #### MILO Mattson CH8 #### [facility] [address], [place], Glucose [Mass/Vol] 93 mg/dL 68 - 110 mg/dL [facility] Interpretation and review of laboratory results Normal [facility] MAGNESIUMon 07-17-2022 Magnesium [Mass/Vol] 1.8 mg/dL Normal 1.6-2.8 [facility] Comment on above: Performed By: #### MILO Mattson CH8 #### [facility] [address], [place], Interpretation and review of laboratory results Normal [facility] Magnesium [Mass/Vol] 1.8 mg/dL 1.6 - 2 .8 mg/dL [facility] No Panel Informationon 07-17 Interpretation and review of laboratory results Abnormal [facility] PHOSPHORUSon 07-17-2022 Phosphate [Mass/Vol] 2.4 mg/dL Low 2.5-4.8 [facility] Comment on above: Performed By: #### MILO Mattson CH8 #### [facility] [address] [place] [address], Phosphate [Mass/Vol] 2.4 mg/dL Low 2.5 - 4 .8 mg/dL [facility] Progress Noteson 07-17-2022 Offal Roller Authentication Interface Message Text Patient refused: Ditropan, and Hs Fingerstick. Normal [facility] BASIC METABOLIC PANELon 06-23 Anion gap [Moles/Vol] 14 mmol/L Normal 10-20 [facility] Comment on above: Performed By: #### MILO Mattson CH8 #### [facility] [address] [place] [address], Calcium [Mass/Vol] 8.0 mg/dL Low 8.4-10.4 [facility] Comment on above: Performed By: #### MILO Mattson CH8 #### [facility] [address] [place] [address], Chloride [Moles/Vol] 103 mmol/L Normal 97-111 [facility] Comment on above: Performed By: #### MILO Mattson CH8 #### [facility] [address] [place] [address], CO2 [Moles/Vol] 31 mmol/L High 21-30 [facility] Comment on above: Performed By: ###MILO Sierra CH8 #### [facility] [address] [place] [address], Creatinine [Mass/Vol] 0.79 mg/dL Normal 0.50-1.10 [facility] Comment on above: Performed By: #### MILO Mattson CH8 #### [facility] [address] [place] [address], ESTIMATED GFR (CKD-EPI) 93 mL/min/1.73sqm Normal >=60 [facility] Comment on above: Result Comment: 2020 [...] Inclusion of Race in Diagnosing Kidney Disease. Tristanian Journal of Kidney Diseases 202;79(2):268-88.e1. 2. N Engl J Med 1 Vol. 385 Issue 19 Pages 0566-7139 Performed By: #### MILO Mattson CH8 #### [facility] [address], [place], Glucose [Mass/Vol] 96 mg/dL Normal 68-110 [facility] Comment on above: Performed By: #### MILO Mattson CH8 #### [facility] [address] [place] [address], Potassium [Moles/Vol] 4.0 mmol/L Normal 3.3-5.3 [facility] Comment on above: Performed By: #### MILO Mattson CH8 #### [facility] [address], [place], Sodium [Moles/Vol] 144 mmol/L Normal 135-148 [facility] Comment on above: Performed By: #### MILO Mattson CH8 #### [facility] [address], [place], Urea nitrogen [Mass/Vol] 16 mg/dL Normal 8-22 [facility] Comment on above: Performed By: #### MILO Mattson CH8 #### [facility] [address], [place], Basic metabolic 2000 panelon 07-16-2022 Anion [...] Inclusion of Race in Diagnosing Kidney Disease. Tristanian Journal of Kidney Diseases 202;79(2):268-88.e1. 2. N Engl J Med 2020 Vol. 385 Issue 19 Pages 9917-0308 Glucose [Mass/Vol] 96 mg/dL 68 - 110 [...] [#/Vol] 217 10*3/uL 150 - 400 K/uL [facility] RBC (Bld) [#/Vol] 3.33 10*6/uL Low [facility] WBC (Bld) [#/Vol] 16.3 10*3/uL High 4.5 - 11.5 K/uL [facility] COMPLETE BLOOD COUNTon 07-16 Erythrocyte distribution width (RBC) [Ratio] 13.5 % Normal 11.5-14.5 [facility] Comment on above: Performed By: #### C BC ####[facility] PATHOLOGY [id number] [place] [address], Hematocrit (Bld) [Volume fraction] 32.8 % Low 36.0-46.0 [facility] Comment on above: Performed By: #### C BC ####[facility] PATHOLOGY [id number] [place] [address], Hemoglobin (Bld) [Mass/Vol] 10.9 g/dL Low 12.0-15.0 [facility] Comment on above: Performed By: #### C BC ####[facility] PATHOLOGY [id number] [place] [address], MCH (RBC) [Entitic mass] 32.7 pg Normal 26.0-34.0 [facility] Comment on above: Performed By: #### C BC ####[facility] PATHOLOGY [id number] [place] [address], MCHC (RBC) [Mass/Vol] 33.2 g/dL Normal 32.0-35.9 [facility] Comment on above: Performed By: #### C BC ####[facility] PATHOLOGY [id number] [place] [address], MCV (RBC) [Entitic vol] 98 fL Normal 80-100 T [facility] Comment on above: Performed By: #### C BC ####S PATHOLOGY [id number] [place] [address], Platelet mean volume (Bld) [Entitic vol] 9.0 fL Normal 7.5-11.2 [facility] Comment on above: Performed By: #### C BC ####[facility] PATHOLOGY [id number] [place], [place], Platelets (Bld) [#/Vol] 217 10*3/uL Normal 150-400 [facility] Comment on above: Performed By: #### C BC ####S PATHOLOGY [id number] [place], [place], RBC (Bld) [#/Vol] 3.33 10*6/uL Low 4.00-5.20 The [facility] Comment on above: Performed By: #### C BC ####[facility] PATHOLOGY [id number] [place], [place], WBC (Bld) [#/Vol] 16.3 10*3/uL High 4.5-11.5 The [facility] Comment on above: Performed By: #### C BC ####[facility] PATHOLOGY [id number] [place], [place], GLUCOSE, FINGERSTICK-IN OFFI CEon 07-16-2022 Glucose [Mass/Vol] 89 mg/dL Normal 68-110 The [facility] Comment on above: Performed By: #### MILO Mattson CH8 #### [facility] [address], [place], Glucose [Mass/Vol] 89 mg/dL 68 - 110 mg/dL [facility] Interpretation and review of laboratory results Normal [facility] Glucose [Mass/Vol] 160 mg/dL High 68-110 [facility] Comment on above: Result Comment: Ricky lund RN, APN, MD Performed By: #### MILO Mattson CH8 #### [facility] [address] [place] [address], Glucose [Mass/Vol] 160 mg/dL High 68 - 110 mg/dL [facility] Comment on above: Notified JUDSON MORSE MD Interpretation and review of laboratory results Abnormal [facility] Glucose [Mass/Vol] 136 mg/dL High 68-110 The [facility] Comment on above: Result Comment: Ricky lund RN, APN, MD Performed By: #### MILO Mattson CH8 #### [facility] [address] [place] [address], Glucose [Mass/Vol] 136 mg/dL High 68 - 110 mg/dL [facility] Comment on above: Notified JUDSON MORSE MD Interpretation and review of laboratory results Abnormal [facility] MAGNESIUMon 07-16-2022 Magnesium [Mass/Vol] 2.0 mg/dL Normal 1.6-2.8 [facility] Comment on above: Performed By: #### MILO Mattson CH8 #### [facility] [address], [place], Interpretation and review of laboratory results Normal [facility] Magnesium [Mass/Vol] 2.0 mg/dL 1.6 - 2 .8 mg/dL [facility] No Panel Informationon 07-16 Interpretation and review of laboratory results Abnormal [facility] PHOSPHORUSon 07-16-2022 Phosphate [Mass/Vol] 2.1 mg/dL Low 2.5-4.8 [facility] Comment on above: Performed By: #### MILO Mattson CH8 #### [facility] [address] [place], [place], Phosphate [Mass/Vol] 2.1 mg/dL Low 2.5 - 4 .8 mg/dL [facility] Progress Noteson 07-16-2022 Offal Roller Authentication Interface Message Text -------- GENERAL INFORMATION ------- SURGICAL ICU - STAFF NOTE Patient seen and examined on 07/16/2022 Patient Name: Isabelle Hewitt Admission Date: 07/14/2022 ------ INTERVAL HISTORY/EVENTS ---- Background: Ms Hewitt is a 47 year [...] tablet, 10 mg, Oral, Daily PRN, Sue, Oliver, DMD oxymetazoline (AFRIN) 0.05 % nasal solution, 2 [place], Nasal, Q4H PRN, Sue, Oliver, DMD sodium chloride (OCEAN) 0.65 % nasal spray, 1 [place], Nasal, Q1H PRN, Milton Rogersel, DMD naloxone [...] 2. (more content not included)... Normal [facility] Offal Roller Authentication Interface Message Text Attestation signed by [...] MD SURGERY DAILY PROGRESS NOTE Isabelle Hewitt [id number] Isabelle Hewitt is a 47yo F with [...] bisacodyl 10 mg Daily PRN oxymetazoline 2 [place] Q4H PRN sodium chloride 1 [place] Q1H PRN naloxone 0.4 mg PRN IV [...] hydration. Pt okay to be transferred to [facility]. Neuro: - Acetaminophen 650 mg Q4H scheduled - Ibuprofen 600 mg Q6H PRN mild pain - Oxycodone 5/10 mg Q4H PRN moderate/severe pain OMFS: - Peridex mouth rinses BID Cardiac: - Lipitor 20 mg daily Resp: - O2 as needed to maintain sats >92% - Humidified face tent - [place] nasal spray Q1H PRN - Afrin nasal [...] daily Dispo: - Okay to transfer to [facility] Oliver Rogers, DMD wagon driver salesperson, PGY-1 Team Pager: [phone] Normal [facility] BASIC METABOLIC PANELon 11-2 Anion gap [Moles/Vol] 15 mmol/L Normal 10-20 [facility] Comment on above: Performed By: #### MILO Mattson CH8 #### [facility] [address], [place], Calcium [Mass/Vol] 8.0 mg/dL Low 8.4-10.4 [facility] Comment on above: Performed By: #### MILO Mattson CH8 #### [facility] [address], [place], Chloride [Moles/Vol] 102 mmol/L Normal 97-111 [facility] Comment on above: Performed By: #### MILO Mattson CH8 #### [facility] [address], [place], CO2 [Moles/Vol] 28 mmol/L Normal 21-30 [facility] Comment on above: Performed By: #### MILO Mattson CH8 #### [facility] [address], [place], Creatinine [Mass/Vol] 0.91 mg/dL Normal 0.50-1.10 [facility] Comment on above: Performed By: #### MILO Mattson CH8 #### [facility] [address], [place], ESTIMATED GFR (CKD-EPI) 78 mL/min/1.73sqm Normal >=60 [facility] Comment on above: Result Comment: 2020 [...] Inclusion of Race in Diagnosing Kidney Disease. [place]istan[place] Journal of Kidney Diseases 2021;79(2):268-88.e1. 2. N Engl J Med 2021 Vol. 385 Issue 19 Pages [phone] Performed By: #### MILO Mattson, RAQUEL8 #### [facility] [address], [place], Glucose [Mass/Vol] 147 mg/dL High 68-110 [facility] Comment on above: Performed By: #### MILO Mattson, RAQUEL8 #### [facility] [address], [place], Potassium [Moles/Vol] 4.3 mmol/L Normal 3.3-5.3 [facility] Comment on above: Performed By: #### MILO Mattson CH8 #### [facility] [address], [place], Sodium [Moles/Vol] 141 mmol/L Normal 135-148 [facility] Comment on above: Performed By: #### MILO Mattson CH8 #### [facility] [address] [place] [address], Urea nitrogen [Mass/Vol] 16 mg/dL Normal 8-22 [facility] Comment on above: Performed By: #### MILO Mattson CH8 #### [facility] [address] [place] [address], Basic metabolic 2000 panelon 07-15-2022 Anion gap [Moles/Vol] 15 mmol/L 10 - 20 [facility] Calcium [Mass/Vol] 8.0 mg/dL Low 8.4 - 10. 4 mg/dL [facility] Chloride [Moles/Vol] 102 mmol/L 97 - 11 1 mmol/L [facility] CO2 [Moles/Vol] 28 mmol/L 21 - 30 mmol/L [facility] Creatinine [Mass/Vol] 0.91 mg/dL 0.50 - 1.10 mg/dL [facility] GFR/1.73 sq M.predicted MDRD (S/P/Bld) [Vol rate/Area] 78 mL/min/{1.73_m2} - PINF [facility] Comment on above: 2020 CKD EPI [...] Inclusion of Race in Diagnosing Kidney Disease. [place]istan[place] Journal of Kidney Diseases 202;79(2):268-88.e1. 2. N Engl J Med 1 Vol. 385 Issue 19 Pages [phone] Glucose [Mass/Vol] 147 mg/dL High 68 - [...] (RBC) [Ratio] 13.6 % Normal 11.5-14.5 [facility] Comment on above: Performed By: #### MILO Mattson CH8 #### [facility] [address] [place] [address], Hematocrit (Bld) [Volume fraction] 34.4 % Low 36.0-46.0 [facility] Comment on above: Performed By: #### MILO Mattson CH8 #### [facility] [address] [place] [address], Hemoglobin (Bld) [Mass/Vol] 11.5 g/dL Low 12.0-15.0 [facility] Comment on above: Performed By: #### MILO Mattson CH8 #### [facility] [address] [place] [address], MCH (RBC) [Entitic mass] 32.3 pg Normal 26.0-34.0 [facility] Comment on above: Performed By: #### MILO Mattson CH8 #### [facility] [address] [place] [address], MCHC (RBC) [Mass/Vol] 33.4 g/dL Normal 32.0-35.9 [facility] Comment on above: Performed By: #### MILO Mattson CH8 #### [facility] [address] [place] [address], MCV (RBC) [Entitic vol] 97 fL Normal 80-100 T [facility] Comment on above: Performed By: #### MILO Mattson CH8 #### [facility] [address] [place] [address], Platelet mean volume (Bld) [Entitic vol] 8.6 fL Normal 7.5-11.2 [facility] Comment on above: Performed By: #### MILO Mattson CH8 #### [facility] [address] [place] [address], Platelets (Bld) [#/Vol] 267 10*3/uL Normal 150-400 [facility] Comment on above: Performed By: #### Mariam MILO Alan CH8 #### [facility] [address], [place], RBC (Bld) [#/Vol] 3.55 10*6/uL Low 4.00-5.20 [facility] Comment on above: Performed By: #### MILO Mattson CH8 #### [facility] [address], [place], WBC (Bld) [#/Vol] 18.2 10*3/uL High 4.5-11.5 [facility] Comment on above: Performed By: #### MILO Mattson CH8 #### [facility] [address], [place], Care Plan Noteon 07-15-2022 Offal Roller Authentication Interface Message Text Problem: Routine Care: [...] will be met Outcome: Progressing Normal [facility] Offal Roller Authentication Interface Message Text Problem: Discharge Planning: [...] Alan, CH8 #### [facility] [address] [place], [address] Glucose [Mass/Vol] 155 mg/dL High 68 - 110 mg/dL [facility] Comment on above: Notified JUDSON MORSE MD Interpretation and review of laboratory results Abnormal [facility] Glucose [Mass/Vol] 137 mg/dL High 68-110 [facility] Comment on above: Performed By: #### 8 2948 ####[facility] GLUCOSE [id number] [place], [address] Glucose [Mass/Vol] 137 mg/dL High 68 - 110 mg/dL [facility] Interpretation and review of laboratory results Abnormal [facility] Progress Noteson 07-15-2022 Offal Roller Authentication Interface Message Text Attestation signed by [...] MD SURGERY DAILY PROGRESS NOTE Isabelle Hewitt [id number] Isabelle Hewitt is a 47yo F with [...] bisacodyl 10 mg Daily PRN oxymetazoline 2 [place] Q4H PRN sodium chloride 1 [place] Q1H PRN naloxone 0.4 mg PRN IV [...] daily -Lipitor 20mg daily Pulm: -Oxymetazoline 2 [place] q4h PRN -[place] 1 [place] q1h PRN -Face Tent on humidified air [...] Seferino Vaz DMD FS Resident Team Pager [phone] Normal [facility] Offal Roller Authentication Interface Message Text -------- GENERAL INFORMATION ------- SURGICAL ICU - STAFF NOTE Patient seen and examined on 07/15/2022 Patient Name: Isabelle Hewitt Admission Date: 07/14/2022 ------ INTERVAL HISTORY/EVENTS ---- Background: Ms Hewitt is a 47 year [...] tablet, 20 mg, Oral, Daily, Oliver Rogers, CHAU clonazePAM (KlonoPIN) tablet, 1 mg, Oral, Q12H [...] oxymetazoline (AFRIN) 0.05 % nasal solution, 2 [place], Nasal, Q4H PRN, Oliver Rogers, CHAU sodium chloride (OCEAN) 0.65 % nasal spray, 1 [place], Nasal, Q1H PRN, Oliver Rogers DMD enoxaparin [...] - (more content not included)... Normal [facility] Anesthesia Attestationon Offal Roller Authentication Interface Message Text Anesthesia Attestation ATTESTATION OF INFORMED CONSENT FOR ANESTHESIA Anesthesia options were discussed with the patient and/or legal product support representative. The risks, benefits and alternatives were reviewed. Questions regarding anesthesia were answered. Patient and/or legal product support representative knows such anesthetics and procedures may be performed by Resident physicians, Certified Anesthesiologist Assistants, or Certified Nurse Anesthetists under the supervision of a physician. The patient /or the patient's legal product support representative agree with the plan for anesthesia. Normal [facility] Anesthesia Postprocedure Lauren patel 07-14-2022 Offal Roller Authentication Interface Message Text Anesthesia Postoperative Assessment: [...] EVENTS: No notable events documented. Normal [facility] Anesthesia Transfer Of Careo n 07-14-2022 Offal Roller Authentication Interface Message Text Patient taken to PACU. Patient was awake, comfortable and stable on arrival. Anesthesia Transfer of Care Note Past Medical History: Past Medical History: Diagnosis Date * DIONNE (obstructive sleep apnea) Sleep Apnea/Positive STOP-BANG: Yes Problem List: Patient Active Problem List: DIONNE (obstructive sleep apnea) [G47.33] Past Surgical History: Review of patient's past surgical history indicates: UVULOPALATOPHARYNGOPLA STY (02/25/2022) Procedure: UVULOPALATOPHARYNGOPLA STY; Surgeon: Yi Moreno MD; Location: PERIOPERATIVE SERVICES; [...] of the report was received. Zenia Centeno, CINTIA Normal [facility] BLOOD GAS, ARTERIALon 2021 CR DEBORAH 0.5 mmol/L Normal -2.0-2.0 [facility] Comment on above: Performed By: #### C R LYTES, CR GLU, LACT, CR BGA, CR ICA, CR COOX #### [facility] PATH[facility]ATORY [address] [place] [address], CR PCO2 37.0 mm Hg Normal 35.0-45.0 [facility] Comment on above: Performed By: #### C R LYTES, CR GLU, LACT, CR BGA, CR ICA, CR COOX #### [facility] PATH[facility]ORY [address] [place] [address], CR PHA 7.429 Normal 7.35-7.45 [facility] Comment on above: Performed By: #### C R LYTES, CR GLU, LACT, CR BGA, CR ICA, CR COOX #### [facility] [address] [place] [address], CR PO2 118 mm Hg High 80-100 [facility] Comment on above: Performed By: #### C R LYTES, CR GLU, LACT, CR BGA, CR ICA, CR COOX #### [facility] [address] [place] [address], HCO3 (Bld) [Moles/Vol] 24 mmol/L Normal 22-28 Th e [facility] Comment on above: Performed By: #### C R LYTES, CR GLU, LACT, CR BGA, CR ICA, CR COOX #### [facility] [address] [place] [address], Oxygen saturation in Blood 98.8 % Normal >=95.1 [facility] Comment on above: Performed By: #### C R LYTES, CR GLU, LACT, CR BGA, CR ICA, CR COOX #### [facility] [address], [place], BLOOD GAS, ARTERIALOrdered B y: Osmar Zamora on 07-14-2022 Base excess Calc (Bld) [Moles/Vol] 0.5 mmol/L -2.0 - 2.0 mmol/L [facility] CO2 (Bld) [Partial pressure] 37.0 mm[Hg] [facility] Oxygen (Bld) [Partial pressure] 118 mm[Hg] High [facility] pH (Bld) 7.429 [pH] 7.35 - 7.45 [facility] Blood Attestationon 07-14-20 Offal Roller Authentication Interface Message Text Blood Attestation ATTESTATION OF INFORMED CONSENT FOR BLOOD The transfusion of blood and/or blood components were discussed with the patient and/or legal product support representative. The risks, benefits and alternatives were reviewed. Questions regarding blood transfusions were answered. The patient /or the patient's legal product support representative agree with the plan for transfusion of blood and/or blood components. Normal [facility] Brief Operative Noteon 07-14 Offal Roller Authentication Interface Message Text Brief Operative Note MAIN OR 12 Isabelle Hewitt 47 year old female Surgical Contact Serial Number: [id number] Preoperative Diagnosis: DIONNE (obstructive sleep apnea) [G47.33] Postoperative Diagnosis: * DIONNE (obstructive sleep apnea) [G47.33] Procedures: Surgical CPTs Procedures RECONSTRUCTION MIDFACE, LEFORT I; 1 PIECE, W/O BONE GRAFT RECONSTRUCTION, MANDIBULAR RAMI AND /OR BODY, SAGITTAL SPLIT; W/INT RIGID FIXATION No data filed Surgeon(s): Surgeon(s): Rikki Rodrigues DMD, MD Staff: Scrub: Annelise Saeed RN; Babs Wells RN Diesel Powerplant Mechanic Helper Nurse: Stephanie Brannon RN; Babs Wells RN Sheep Sorter: Margot Ovalles DDS; Saleem Mi DMD Anesthesia: [...] procedure sign-out. Signed by Rikki Rodrigues DMD, 07/14/2022 12:58 PM Normal [facility] CALCIUM, IONIZEDon CR ICA 1.00 mmol/L Low 1.10-1.40 [facility] Comment on above: Performed By: #### C R LYTES, CR GLU, LACT, CR BGA, CR ICA, CR COOX #### S [facility] [address] [place] [address], Calcium.ionized (Bld) [Moles/Vol] 1.00 mmol/L Low 1.10 - 1.40 mmol/L [facility] CO-OXIMETERon 07-14-2022 CARBOXYHEMOGLOBIN 1.5 % Normal <3.0 [facility] Comment on above: Performed By: #### C R LYTES, CR GLU, LACT, CR BGA, CR ICA, CR COOX #### S [facility] [address], [place], CR HBMET 0.8 % Normal <3.0 [facility] Comment on above: Performed By: #### C R LYTES, CR GLU, LACT, CR BGA, CR ICA, CR COOX #### [facility] PATH[facility]ORY [address] [place] [address], Hematocrit (Bld) [Volume fraction] 37.6 % Normal 36.0-46.0 [facility] Comment on above: Performed By: #### C R LYTES, CR GLU, LACT, CR BGA, CR ICA, CR COOX #### [facility]ORY [address] [place] [address], Hemoglobin (Bld) [Mass/Vol] 12.2 g/dL Normal 12.0-16.0 [facility] Comment on above: Performed By: #### C R LYTES, CR GLU, LACT, CR BGA, CR ICA, CR COOX #### [facility] [address], [place], OXYHEMOGLOBIN 96.5 % Normal 95.0-100.0 [facility] Comment on above: Performed By: #### C R LYTES, CR GLU, LACT, CR BGA, CR ICA, CR COOX #### [facility] [address], [place], Carboxyhemoglobin (BldA) [Mass fraction] 1.5 % NINF - 3.0 % [facility] Hematocrit (BldA) [Volume fraction] 37.6 % 36.0 - 46.0 % [facility] Hemoglobin (Bld) [Mass/Vol] 12.2 g/dL 12.0 - 16.0 g/dL [facility] Methemoglobin (BldA) [Mass fraction] 0.8 % NINF - 3.0 % [facility] Oxyhemoglobin (BldA) [Mass fraction] 96.5 % 95.0 - 100.0 % [facility] Consultson 07-14-2022 Offal Roller Authentication Interface Message Text Surgical ICU H AND P Isabelle Hewitt [id number] HPI: Ms Hewitt is a 47 year [...] Location: PACU Procedure Rooms; Service: Otolaryngology CHOLECYSTECTOMY UVULOPALATOPHARYNGOPLA STY N/A 02/25/2022 Procedure: UVULOPALATOPHARYNGOPLA STY; Surgeon: Yi Moreno MD; Location: PERIOPERATIVE SERVICES; [...] capsule Take 150 mg by mouth daily. triamterene-hydrochlor othiazide (MAXZIDE) 37.5-25 MG tablet Take 1 Tablet [...] GI/Feeding -full liquid diet -maintain Mart overnight Endocrine/Renal/Electr olytes -continue home dose LT4 -maintenance IVF LR @75 ml/hr Disposition -potential floor (more content not included)... Normal [facility] ELECTROLYTESon 07-14-2022 Chloride [Moles/Vol] 107 mmol/L Normal 97-111 [facility] Comment on above: Performed By: #### C R LYTES, CR GLU, LACT, CR BGA, CR ICA, CR COOX #### S [facility] LABORATORY [address] [place] [address], Potassium [Moles/Vol] 3.7 mmol/L Normal 3.3-5.3 [facility] Comment on above: Performed By: #### C R LYTES, CR GLU, LACT, CR BGA, CR ICA, CR COOX #### S [facility] LABORATORY [address] [place] [address], Sodium [Moles/Vol] 142 mmol/L Normal 135-148 [facility] Comment on above: Performed By: #### C R LYTES, CR GLU, LACT, CR BGA, CR ICA, CR COOX #### S [facility] [address] [place] [address], Chloride [Moles/Vol] 107 mmol/L 97 - 11 1 mmol/L [facility] Potassium [Moles/Vol] 3.7 mmol/L 3.3 - 5.3 mmol/L [facility] Sodium [Moles/Vol] 142 mmol/L 135 - 148 mmol/L [facility], FINGERSTICK-IN OFFI CEon 07-14-2022 Glucose [Mass/Vol] 156 mg/dL High 68-110 [facility] Comment on above: Performed By: #### 8 2948 ####NURSING GLUCOSE [id number] [place], [address] Glucose [Mass/Vol] 156 mg/dL High 68 - 110 mg[facility] Interpretation and review of laboratory results Abnormal [facility] Glucose [Mass/Vol] 110 mg/dL Normal 68-110 [facility] Comment on above: Performed By: #### 8 2948 ####NURSING GLUCOSE [id number] [place], [address] Glucose [Mass/Vol] 110 mg/dL 68 - 110 mg/dL [facility] Interpretation and review of laboratory results Normal [facility] GLUCOSE, WHOLE BLOODon 07-14 CR GLU 93 mg/dL Normal 68-98 [facility] Comment on above: Performed By: #### C R LYTES, CR GLU, LACT, CR BGA, CR ICA, CR COOX ####[facility] [id number] [place], [place], Glucose [Mass/Vol] 93 mg/dL 68 - 98 mg/dL [facility] LACTIC ACIDon 07-14-2022 CR LACT 2.0 mmol/L Normal 0.5-2.0 [facility] Comment on above: Performed By: #### C R LYTES, CR GLU, LACT, CR BGA, CR ICA, CR COOX #### [facility] [address], [place], Lactate [Moles/Vol] 2.0 mmol/L 0.5 - 2. 0 mmol/L [facility] Laboratory - Chemistry and C hemistry - challengeOrdered By: Osmar Zamora on 07-14-2022 HCO3 (Bld) [Moles/Vol] 24 mmol/L 22 - 28 mmol/L [facility] No Panel Informationon 07-14 Interpretation and review of laboratory results Normal [facility] No Panel InformationOrdered By: Osmar Zamora on 07-14-2022 Interpretation and review of laboratory results Abnormal [facility] OP Noteon 07-14-2022 Offal Roller Authentication Interface Message Text Name: ISABELLE HEWITT MR#: [id number] [facility]#: [id number] Date of Procedure: 07/14/2022 ATTENDING SURGEON: Rikki [...] a combination of osteotomes and a Kaufman advocacy director. On both sides, the inferior alveolar nerve [...] FINDINGS: IMPRESSION: Single view of the filter [place] with linear radiopaque foreign body compatible with [...] FINDINGS: IMPRESSION: Single view of the filter [place] with linear radiopaque foreign body compatible with retained needle. MACRO: None RADIOLOGY Jerel Guzman MD - 07/14/2022 EXAMINATION: XR SKULL PA+LATERAL 07/14/2022 10:15 AM CLINICAL HISTORY: Reason for Exam: retained object. ASSOCIATED DIAGNOSIS: ORDERING PROVIDER: CORRINE RODRIGUES TECHNOLOGISTS NOTE: Image of filter for retained surgical needle per Dr. Rodrigues. COMPARISON: None FINDINGS: IMPRESSION: Single view of the filter [place] with linear radiopaque foreign body compatible with retained needle. 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 Normal [facility] Telephone Encounteron 2021 Offal Roller Authentication Interface Message Text Patient states she is faxing over paperwork for her time off of work d/t surgery tomorrow, 07/14. Patient would like a call when this is received if possible. Please call [phone]. Patient informed it might not be possible, just in case. Thank you! Normal [facility] Telephone Encounteron 2021 Offal Roller Authentication Interface Message Text [id number]: Contacted pt and informed her to call the ENT office to schedule appt with Dr Moreno s/p jaw surgery in about 3 months due to healing time. Pt verbalized understanding. Latoya Manzo RN Normal [facility] Offal Roller Authentication Interface Message Text Dr. Joel, Patient calling stating that she is going forward with the jaw surgery that you recommended next 07/14/22. Patient would like to know what the next step is for after the surgery. PT: [phone] Thanks, D Normal [facility] ABO RH TYPEon 07-08-2022 ABO and Rh group Nom (Bld) Blood group B Rh(D) positive Normal [facility] Comment on above: Performed By: #### M MILO Alan CH8 #### [facility] [address] [place] [address], [id number] CBC panel Auto (Bld)on 07-08 Erythrocyte distribution [...] vol] 98 fL 80 - 100 fL [facility] Platelet mean volume (Bld) [Entitic vol] 8.8 fL 7.5 - 11.2 fL [facility] Platelets (Bld) [#/Vol] 274 10*3/uL 150 - 400 K/uL [facility] RBC (Bld) [#/Vol] 4.32 10*6/uL [facility] WBC (Bld) [#/Vol] 7.2 10*3/uL 4.5 - 11.5 K/uL [facility] COMPLETE BLOOD COUNTon 07-08 Erythrocyte distribution width (RBC) [Ratio] 13.4 % Normal 11.5-14.5 [facility] Comment on above: Performed By: #### C BC ####[facility] PATHOLOGY [id number] [place] [address], Hematocrit (Bld) [Volume fraction] 42.2 % Normal 36.0-46.0 [facility] Comment on above: Performed By: #### C BC ####[facility] PATHOLOGY [id number] [place] [address], Hemoglobin (Bld) [Mass/Vol] 14.3 g/dL Normal 12.0-15.0 [facility] Comment on above: Performed By: #### C BC ####[facility] PATHOLOGY [id number] [place] [address], MCH (RBC) [Entitic mass] 33.1 pg Normal 26.0-34.0 [facility] Comment on above: Performed By: #### C BC ####[facility] PATHOLOGY [id number] [place] [address], MCHC (RBC) [Mass/Vol] 33.9 g/dL Normal 32.0-35.9 [facility] Comment on above: Performed By: #### C BC ####[facility] PATHOLOGY [id number] [place] [address], MCV (RBC) [Entitic vol] 98 fL Normal 80-100 T [facility] Comment on above: Performed By: #### C BC ####[facility] PATHOLOGY [id number] [place] [address], Platelet mean volume (Bld) [Entitic vol] 8.8 fL Normal 7.5-11.2 [facility] Comment on above: Performed By: #### C BC ####[facility] PATHOLOGY [id number] [place], [place], Platelets (Bld) [#/Vol] 274 10*3/uL Normal 150-400 [facility] Comment on above: Performed By: #### C BC ####[facility] PATHOLOGY [id number] [place], [place], RBC (Bld) [#/Vol] 4.32 10*6/uL Normal 4.00-5.20 [facility] Comment on above: Performed By: #### C BC ####[facility] PATHOLOGY [id number] [place], [place], WBC (Bld) [#/Vol] 7.2 10*3/uL Normal 4.5-11.5 [facility] Comment on above: Performed By: #### C BC ####[facility] PATHOLOGY [id number] [place], [place], Laboratory - Blood bankon ABO and Rh group Nom (Bld) Blood group B Rh(D) positive [facility] No Panel Informationon 07-08 [facility] PSE Appt H AND Neftali Offal Roller Authentication Interface Message Text Patient was identified by name and date of . Edwina Daniel Bill of rights provided to patient Normal [facility] Patient Instructionson 07-08 Offal Roller Authentication Interface Message Text On the morning [...] for pain Please hold all Vitamin E, [place] 3, fish oil and herbal supplements for 1 week prior to surgery Normal [facility] TYPE AND SCREENon 07-08-2022 ABO and Rh group Nom (Bld) No Previous Results [facility] Comment on above: Patient does not req uire a 2nd sample drawn prior to surgery date of 07/14/2022___. Specimen meets [facility]'s Pre-Surgical Protocol and is valid within 14 days from date of collection but will at midnight on the day of approved Surgery. Corrected Result : 07/08/2022 17:16:22 : By Transfusion Medicine Blood group antibody screen Ql Negative [facility] ABO and Rh group Nom (Bld) Blood group B Rh(D) positive Normal [facility] Comment on above: Performed By: #### MILO Mattson CH8 #### [facility] [address] [place] [address], ABO and Rh group Nom (Bld) No Previous Results Normal [facility] Comment on above: Result Comment: Deepa [...] MILO Mattson CH8 #### [facility] [address] [place] [address], ABSC INT Negative Normal [facility] Comment on above: Performed By: #### MILO Mattson CH8 #### [facility] [address] [place] [address], FREE T4on 07-07-2022 Free T4 [Mass/Vol] 0.83 ng/dL Normal 0.76-1.46 [facility] Comment on above: Performed By: #### F T4 #### [facility] [address] [place] [address] Dr. Stephanie Gibbs TSHon 07-07-2022 TSH 3.715 uIU/mL Normal 0.358-3.740 [facility] Comment on above: Performed By: #### C #### [facility] [address] [place], [place] [address] Dr. Stephanie Gibbs PSE Appt H AND Neftali [employer] Authentication Interface Message Text Error Normal [facility] Progress Noteson 07-02-2022 Offal Roller Authentication Interface Message Text Patient was seen in the OM clinic for alginate impressions of the edentulous maxilla and CBCT with denture in place. Seferino Vaz DMD OMFS Resident Normal [facility] Offal Roller Authentication Interface Message Text ORAL SURGERY CLINIC FOLLOW UP VISIT Patient was seen in the OMFS clinic for alginate impressions of the edentulous maxilla and CBCT with denture in place. Seferino Vaz DMD OMFS Resident ms. Normal [facility] Patient Instructionson 06-18 [employer]al [employer] Authentication Interface Message Text Maxillomandibular advancement surgery, [...] daytime fatigue and inconsistent sleep. Normal [facility] Progress Noteson 06-18-2022 Offal [employer] Authentication Interface Message Text OMFS PATIENT VISIT CHIEF COMPLAINT: sleep apnea HISTORY OF PRESENT ILLNESS: Patient presents for evaluation for surgical treatment of DIONNE. She is extremely symptomatic from her DIONNE, and suffers from CPAP intolerance. Hitchita sleepiness scale is 18. Patient is starting [...] capsule Take 150 mg by mouth daily. triamterene-hydrochlor othiazide (MAXZIDE) 37.5-25 MG tablet Take 1 Tablet [...] Location: PACU Procedure Rooms; Service: Otolaryngology CHOLECYSTECTOMY UVULOPALATOPHARYNGOPLA STY N/A 02/25/2022 Procedure: UVULOPALATOPHARYNGOPLA STY; Surgeon: Yi Moreno MD; Location: PERIOPERATIVE SERVICES; [...] norms. Retrognathic mandible. DIAGNOSIS: Obstructive sleep apnea [510531] TREATMENT: Exam, Panorex evaluated, and pictures/models taken [...] for (more content not included)... Normal [facility] Progress Noteson 06-15-2022 Offal [employer] Authentication Interface Message Text CC: sleep disordered [...] nerve stimulator implanted following MMA Normal [facility] Anesthesia Attestationon Off[employer] Authentication Interface Message Text Anesthesia Attestation ATTESTATION OF INFORMED CONSENT FOR ANESTHESIA Anesthesia options were discussed with the patient and/or legal product support representative. The risks, benefits and alternatives were reviewed. Questions regarding anesthesia were answered. Patient and/or legal product support representative knows such anesthetics and procedures may be performed by Resident physicians, Certified Anesthesiologist Assistants, or Certified Nurse Anesthetists under the supervision of a physician. The patient /or the patient's legal product support representative agree with the plan for anesthesia. Normal [facility] Anesthesia Postprocedure Lauren luationon 06-03-2022 [employer] Authentication Interface Message Text Anesthesia Postoperative Assessment: [...] EVENTS: No notable events documented. Normal [facility] Anesthesia Preprocedure Eval uationon 06-03-2022 Off[employer] Authentication Interface Message Text ASA: 2 No [...] the history and physical examination. Normal [facility] Anesthesia Transfer Of Careo n 06-03-2022 Offal [employer] Authentication Interface Message Text Patient taken to PACU. Patient was awake, comfortable and stable on arrival. Anesthesia Transfer of Care Note Past Medical History: Past Medical History: Diagnosis Date * DIONNE (obstructive sleep apnea) Sleep Apnea/Positive STOP-BANG: Yes Problem List: Patient Active Problem List: DIONNE (obstructive sleep apnea) [G47.33] Past Surgical History: Review of patient's past surgical history indicates: UVULOPALATOPHARYNGOPLA STY (02/25/2022) Procedure: UVULOPALATOPHARYNGOPLA STY; Surgeon: Yi Moreno MD; Location: PERIOPERATIVE SERVICES; [...] report was received. CINTIA Patel Normal [facility] Brief Operative Noteon 06-03 [employer] Authentication Interface Message Text Brief Operative Note PACU 19 Isabelle Hewitt 47 year old female Surgical Contact Serial Number: [id number] Preoperative Diagnosis: DIONNE (obstructive sleep apnea) [G47.33] [...] Brown PA-C 06/03/2022 2:48 PM Normal [facility] OP Noteon 06-03-2022 Offal Rol[employer] Authentication Interface Message Text Name: ISABELLE HEWITT MR#: [id number] ENC#: [id number] Date of Procedure: 06/03/2022 ATTENDING SURGEON: Yi oMreno MD FIRST SURGEON: Ryann Brown PA-C PREOPERATIVE [...] was taken back to recovery. MD ISABEL Rebollar/Marii/ Dict: 06/03/2022 15:35:21 TRANS: 06/04/2022 07:02:00 JOB: [id number] DictJob#: [id number] Normal [facility] Progress Noteson 06-03-2022 Offal [employer] Authentication Interface Message Text Discharge instructions reviewed in preop with patient. Patient verbalized understanding. No questions at this time. Normal [facility] Telephone Encounteron 2021 Off[employer] Authentication Interface Message Text Pre-op COVID test results received AND scanned into [employer]. Results NEGATIVE on 05/31/2022. Scheduled for DISE on 06/03/2022. Normal [facility] COVID Quick Testingon 2021 Result Negative [employer] Other PSE Call H AND Neftali [employer] Authentication Interface Message Text Telephone History Isabelle Hewitt, [id number] 05/28/2022 47 year old 190 lbs 5' [...] teeth Pulmonary: DIONNE Cardiovascular: HTN, HLD, denies SOB/wheezing/cough/benjamín al congestion/fever Gastrointestinal: Hx of cholecystectomy Renal/Genitourinary: Nephrolithiasis Musculoskeletal: Negative Endocrine: Thyroid disease Hematologic: Negative Neurologic: Migraines Psychiatric: Depression, Bipolar, and Anxiety Gynecologic:Menopausal Constitutional:Negativ e CBC (last 3 years, up to 5 values) None Basic Metabolic Panel None LFT's (last 3 years, up to 5 values) None No results found for: HBA1C PT/PTT/INR (last 3 years, up to 5 values) None Last ECG Date: 02/17/2022 Normal sinus rhythm Nonspecific T wave abnormality Abnormal ECG No previous ECGs available Confirmed by OLGA MONTES ([id number]) on 02/17/2022 9:51:58 PM Last Echocardiogram: none found going back to 06/17/2017 Last StressTest: none found going back to 06/17/2017 No Chest x-ray found No results found for: SARSCOV PAST SURGICAL HISTORY: Past Surgical History: Procedure Laterality Date CHOLECYSTECTOMY UVULOPALATOPHARYNGOPLA STY N/A 02/25/2022 Procedure: UVULOPALATOPHARYNGOPLA STY; Surgeon: Yi Moreno MD; Location: PERIOPERATIVE SERVICES; [...] capsul (more content not included)... Normal [facility] Telephone Encounteron 2021 Off[employer] Authentication Interface Message Text Patient is scheduled for DISE on 06/03/2022. Prefers to complete pre-op COVID testing closer to home. Instructed to obtain testing 48-72 hours prior to surgery and bring copy of results on day of surgery. PSE contact information provided. Normal [facility] Addendum Noteon 05-26-2022 Off[employer] Authentication Interface Message Text Addended by: YI MORENO on: 05/26/2022 05:25 PM Modules accepted: Orders Normal [facility] Telephone Encounteron 2021 Offal [employer] Authentication Interface Message Text Arrangements to be made for pre-op COVID testing per ENT request. Normal [facility] MRI PITUITARY WO W CONon MRI [...] WILEY POE Date: 2022-05-18 13:10 Normal [facility] US PELVIS AND TRANSVAGon US PELVIS AND [...] MADDI WINSTON Date: 2022-05-11 16:51 Normal [facility] ESTRADIOLon 05-08-2022 Estradiol 16.3 pg/mL Normal [facility] Comment on above: Result Comment: Adul t Female: Follicular phase 12.5 - 166.0 Ovulation phase 85.8 - 498.0 Luteal phase 43.8 - 211.0 Postmenopausal <6.0 - 54.7 1st trimester 215.0 - >4300.0 Salma ECLIA methodology Performed By: #### C BC #### [facility] [address] [place] [address] Dr. Stephanie Gibbs FSHon 05-08-2022 FSH 11.3 mIU/mL Normal [facility] Comment on above: Result Comment: Adul t Female: Follicular phase 3.5 - 12.5 Ovulation phase 4.7 - 21.5 Luteal phase 1.7 - 7.7 Postmenopausal 25.8 - 134.8 Performed By: #### C BC #### [facility] [address] [place] [address] Dr. Stephanie Gibbs LUTEINIZING HORMONE (LH)on 0 05-08-2022 LH 4.7 mIU/mL Normal [facility] Comment on above: Result Comment: Adul t Female: Follicular phase 2.4 - 12.6 Ovulation phase 14.0 - 95.6 Luteal phase 1.0 - 11.4 Postmenopausal 7.7 - 58.5 Performed By: #### L BCLH #### [facility] [address] [place] [address] Dr. Stephanie Gibbs PROGESTERONEon 05-08-2022 Progesterone 0.2 ng/mL Normal [facility] Comment on above: Result Comment: Foll icular phase 0.1 - 0.9 Luteal phase 1.8 - 23.9 Ovulation phase 0.1 - 12.0 First trimester 11.0 - 44.3 Second trimester 25.4 - 83.3 Third trimester 58.7 - 214.0 Postmenopausal 0.0 - 0.1 Performed By: #### P AARTI #### [facility] [address] [place] [address] Dr. Stephanie Gibbs PROLACTINon 05-08-2022 Prolactin 43.0 ng/mL Critically high 4.8-23.3 [facility] Comment on above: Performed By: #### F T4 #### [facility] [address] [place] [address] Dr. Stephanie Gibbs CBC AUTO DIFFon 05-07-2022 BASO # 0.1 103/ul Normal 0.0-0.1 [facility] Comment on above: Performed By: #### C BC #### [facility] [address] [place] [address] Dr. Stephanie Gibbs Basophils/100 WBC (Bld) 1.0 % Normal 0.2-2.0 [facility] Comment on above: Performed By: #### C BC #### [facility] [address] [place] [address] Dr. Stephanie Gibbs EO # 0.2 103/ul Normal 0.0-0.7 [facility] Comment on above: Performed By: #### C BC #### [facility] [address] [place] [address] Dr. Stephanie Gibbs Eosinophils/100 WBC (Bld) 2.7 % Normal 0.9-7.0 [facility] Comment on above: Performed By: #### C BC #### [facility] [address] [place] [address] Dr. Stephanie Gibbs Erythrocyte distribution width (RBC) [Ratio] 13.0 % Normal 11.0-15.0 [facility] Comment on above: Performed By: #### C BC #### [facility] [address] [place] [address] Dr. Stephanie Gibbs Hematocrit (Bld) [Volume fraction] 39.0 % Normal 36.0-48.0 [facility] Comment on above: Performed By: #### C BC #### [facility] [address] [place] [address] Dr. Stephanie Gibbs Hemoglobin (Bld) [Mass/Vol] 13.0 g/dL Normal 12.0-16.0 [facility] Comment on above: Performed By: #### C BC #### [facility] [address] [place] [address] Dr. Stephanie Gibbs IG # 0.03 10e3/ul Normal 0.00-0.03 [facility] Comment on above: Performed By: #### C BC #### [facility] [address] [place] [address] Dr. Stephanie Gibbs IG % 0.4 % Normal 0.0-0.5 [facility] Comment on above: Performed By: #### C BC #### [facility] [address] [place] [address] Dr. Stephanie Gibbs LYMPH # 2.4 103/ul Normal 1.2-3.8 [facility] Comment on above: Performed By: #### C BC #### [facility] [address] [place] [address] Dr. Stephanie Gibbs Lymphocytes/100 WBC (Bld) 33.8 % Normal 20.5-60.0 [facility] Comment on above: Performed By: #### C BC #### [facility] [address] [place] [address] Dr. Stephanie Gibbs MANUAL DIFF REQ NO Normal [facility] Comment on above: Performed By: #### C BC #### [facility] [address] [place] [address] Dr. Stephanie Gibbs MCH (RBC) [Entitic mass] 32.2 pg Normal 26.7-34.0 [facility] Comment on above: Performed By: #### C BC #### [facility] [address] [place] [address] Dr. Stephanie Gibbs MCHC (RBC) [Mass/Vol] 33.3 g/dL Normal 29.9-35.2 [facility] Comment on above: Performed By: #### C BC #### [facility] [address] [place] [address] [address] Stephanie Gibbs MCV (RBC) [Entitic vol] 96.5 fL Normal 81.0-99.0 [facility] Comment on above: Performed By: #### C BC #### [facility] [address] [place] [address] [address] Stephanie Gibbs MONO # 0.4 103/ul Normal 0.3-0.8 [facility] Comment on above: Performed By: #### C BC #### [facility] [address] [place] [address] [address] Stephanie Gibbs Monocytes/100 WBC (Bld) 5.9 % Normal 1.7-12.0 [facility] Comment on above: Performed By: #### C BC #### [facility] [address] [place] [address] [address] Stephanie Gibbs NEUT # 4.0 103/ul Normal 1.4-6.5 [facility] Comment on above: Performed By: #### C BC #### [facility] [address] [place] [address] [address] Stephanie Gibbs Neutrophils/100 WBC (Bld) 56.2 % Normal 43.0-75.0 [facility] Comment on above: Performed By: #### C BC #### [facility] [address] [place] [address] [address] Stephanie Gibbs Platelet mean volume (Bld) [Entitic vol] 9.8 fL Normal 9.5-13.5 [facility] Comment on above: Performed By: #### C BC #### [facility] [address] [place] [address] [address] Stephanie Gibbs PLT 245 103/ul Normal 150-450 [facility] Comment on above: Performed By: #### C BC #### [facility] [address] [place] [address] [address] Stephanie Gibbs RBC 4.04 106/ul Critically low 4.20-5.40 [facility] Comment on above: Performed By: #### C BC #### [facility] [address] [place] [address] [address] Stephanie Gibbs WBC 7.2 103/ul Normal 4.0-11.0 [facility] Comment on above: Performed By: #### C BC #### [facility] [address] [place] [address] Dr. Stephanie Gibbs FREE T4on 05-07-2022 Free T4 [Mass/Vol] 0.69 ng/dL Critically low 0.76-1.46 [facility] Comment on above: Performed By: #### C BC #### [facility] [address] [place] [address] Dr. Stephanie Gibbs GLYCOHEMOGLOBIN A1Con 2021 ADA RECOMMENDATION SEE BELOW Normal [facility] Comment on above: Result Comment: ADA RECOMMENDED LIMIT 4.0 - 6.0 ADA THERAPEUTIC TARGET < 7.0 ACTION SUGGESTED > 7.0 Performed By: #### C BC #### [facility] [address] [place] [address] Dr. Stephanie Gibbs Glucose [Mass/Vol] 128 mg/dL Normal [facility] Comment on above: Performed By: #### C BC #### [facility] [address] [place] [address] Dr. Stephanie Gibbs HbA1c (Bld) [Mass fraction] 6.1 % Normal 4.5-6.2 [facility] Comment on above: Performed By: #### C BC #### [facility] [address] [place] [address] Dr. Stephanie Gibbs TSHon 05-07-2022 TSH 2.391 uIU/mL Normal 0.358-3.740 [facility] Comment on above: Performed By: #### F T4 #### [facility] [address] [place] [address] Dr. Stephanie Gibbs Progress Noteson 03-29-2022 Offal Roller Authentication Interface Message Text .Documentation: Mode: Telephone Patient Home Phone: Patient Patient Cell Preferred phone: [phone] Consent: I confirmed patient understanding of the [...] seen on prior sleep endoscopy Normal [facility] FREE T4on 03-09-2022 Free T4 [Mass/Vol] 1.08 ng/dL Normal 0.76-1.46 [facility] Comment on above: Performed By: #### F T4 #### [facility] [address] [place] [address] Dr. Stephanie Gibbs LIPID PROFILEon 03-09-2022 CHOL-HDL RATIO NORM SEE BELOW Normal [facility] Comment on above: Result Comment: 3.3 - 4.4 LOW RISK 4.4 - 7.1 AVERAGE RISK 7.1 - 11.0 MODERATE RISK >11.0 HIGH RISK Performed By: #### F T4 #### [facility] [address] [place] [address] [address] Stephanie Gibbs Cholesterol [Mass/Vol] 205 mg/dL Critically high <=200 [facility] Comment on above: Performed By: #### F T4 #### [facility] [address] [place] [address] [address] Stephanie Gibbs Cholesterol in HDL [Mass/Vol] 44 mg/dL Normal 40-60 [facility] Comment on above: Performed By: #### F T4 #### [facility] [address] [place] [address] [address] Stephanie Gibbs Cholesterol in LDL [Mass/Vol] 126.6 mg/dL Normal [facility] Comment on above: Performed By: #### F T4 #### [facility] [address] [place] [address] [address] Stephanie Gibbs Cholesterol.total/Edu sterol in HDL [Mass ratio] 4.7 {ratio} Normal [facility] Comment on above: Performed By: #### F T4 #### [facility] [address] [place] [address] [address] Stephanie Gibbs HDL NORMAL > or = 60 mg/dl - LO W CARDIOVASCULAR RISK <40 mg/dl - HIGH CARDIOVASCULAR RISK Normal [facility] Comment on above: Performed By: #### F T4 #### [facility] [address] [place] [address] [address] Stephanie Gibbs LDL CALC NORMAL SEE BELOW Normal [facility] Comment on above: Result Comment: <100 mg/dl OPTIMAL 100 - 129 mg/dl NEAR OR ABOVE OPTIMAL 130 - 159 mg/dl BORDERLINE HIGH 160 - 189 mg/dl HIGH >190 mg/dl VERY HIGH Performed By: #### F T4 #### [facility] [address] [place] [address] [address] Stephanie Gibbs Triglyceride [Mass/Vol] 172 mg/dL Critically high <=150 [facility] Comment on above: Performed By: #### F T4 #### [facility] [address] [place] [address] [address] Stephanie Gibbs VLDL CALC 34.4 mg/dL Normal [facility] Comment on above: Performed By: #### F T4 #### [facility] [address] [place] [address] [address] Stephanie Gibbs PROF 14(COMP METB)on 022 Albumin [Mass/Vol] 3.7 g/dL Normal 3.4-5.0 [facility] Comment on above: Performed By: #### F T4 #### [facility] [address] [place] [address] [address] Stephanie Gibbs Albumin/Globulin [Mass ratio] 0.8 {ratio} Normal [facility] Comment on above: Performed By: #### F T4 #### [facility] [address] [place] [address] [address] Stephanie Gibbs ALP [Catalytic activity/Vol] 121 U/L Critically high 46-116 [facility] Comment on above: Performed By: #### F T4 #### [facility] [address] [place] [address] [address] Stephanie Gibbs ALT [Catalytic activity/Vol] 39 U/L Normal 14-59 [facility] Comment on above: Performed By: #### F T4 #### [facility] [address] [place] [address] Dr. Stephanie Gibbs Anion gap [Moles/Vol] 12.6 mmol/L Normal [facility] Comment on above: Performed By: #### F T4 #### [facility] [address] [place] [address] Dr. Stephanie Gibbs AST [Catalytic activity/Vol] 21 U/L Normal 15-37 [facility] Comment on above: Performed By: #### F T4 #### [facility] [address] [place] [address] Dr. Stephanie Gibbs Bilirubin [Mass/Vol] 0.4 mg/dL Normal 0.2-1.0 [facility] Comment on above: Performed By: #### F T4 #### [facility] [address] [place] [address] Dr. Stephanie Gibbs Calcium [Mass/Vol] 9.1 mg/dL Normal 8.5-10.1 [facility] Comment on above: Performed By: #### F T4 #### [facility] [address] [place] [address] Dr. Stephanie Gibbs Chloride [Moles/Vol] 102 mmol/L Normal 98-107 [facility] Comment on above: Performed By: #### F T4 #### [facility] [address] [place] [address] Dr. Stephanie Gibbs CO2 [Moles/Vol] 28.1 mmol/L Normal 21.0-32.0 [facility] Comment on above: Performed By: #### F T4 #### [facility] [address] [place] [address] Dr. Stephanie Gibbs Creatinine [Mass/Vol] 0.95 mg/dL Normal 0.55-1.02 [facility] Comment on above: Performed By: #### F T4 #### [facility] [address] [place] [address] Dr. Stephanie Gibbs EGFR-AF IVORIAN >60 Normal >=60 [facility] Comment on above: Performed By: #### F T4 #### [facility] [address] [address] [address] Stephanie Gibbs EGFR-NON AF IVORIAN >60 Normal >=60 [facility] Comment on above: Performed By: #### F T4 #### [facility] [address] [place] [address] Dr. Stephanie Gibbs Globulin (S) [Mass/Vol] 4.8 g/dL Normal [facility] Comment on above: Performed By: #### F T4 #### [facility] [address] [place] [address] Dr. Stephanie Gibbs Glucose [Mass/Vol] 106 mg/dL Normal 74-106 [facility] Comment on above: Performed By: #### F T4 #### [facility] [address] [place] [address] Dr. Stephanie Gibbs Potassium [Moles/Vol] 3.7 mmol/L Normal 3.5-5.1 [facility] Comment on above: Performed By: #### F T4 #### [facility] [address] [place], [place] [address] Dr. Stephanie Gibbs Protein [Mass/Vol] 8.5 g/dL Critically high 6.4-8.2 [facility] Comment on above: Performed By: #### F T4 #### [facility] [address] [place] [address] Dr. Stephanie Gibbs Sodium [Moles/Vol] 139 mmol/L Normal 136-145 [facility] Comment on above: Performed By: #### F T4 #### [facility] [address] [place] [address] Dr. Stephanie Gibbs Urea nitrogen [Mass/Vol] 14.0 mg/dL Normal 7.0-18.0 [facility] Comment on above: Performed By: #### F T4 #### [facility] [address] [address] [address] Stephanie Gibbs Urea nitrogen/Creatinine [Mass ratio] 14.7 mg/mg Normal [facility] Comment on above: Performed By: #### F T4 #### [facility] [id number] Stephanie Gibbs TSHon 03-09-2022 TSH 0.446 uIU/mL Normal 0.358-3.740 [facility] Comment on above: Performed By: #### F T4 #### [facility] [address] [address] [address] Stephanie Gibbs Telephone Encounteron 2021 [employer] Authentication Interface Message Text Patient calling in [...] to turn it in is 03/19/22. #: [phone] Normal [facility] Care Plan Noteon 02-26-2022 Offal [employer] Authentication Interface Message Text Problem: Routine Care: [...] met Outcome: Adequate for Discharge Normal [facility] Offal Rol[employer] Authentication Interface Message Text Problem: Routine Care: [...] will be met Outcome: Progressing Normal [facility] Anesthesia Attestationon Off[employer] Authentication Interface Message Text Anesthesia Attestation ATTESTATION OF INFORMED CONSENT FOR ANESTHESIA Anesthesia options were discussed with the patient and/or legal product support representative. The risks, benefits and alternatives were reviewed. Questions regarding anesthesia were answered. Patient and/or legal product support representative knows such anesthetics and procedures may be performed by Resident physicians, Certified Anesthesiologist Assistants, or Certified Nurse Anesthetists under the supervision of a physician. The patient /or the patient's legal product support representative agree with the plan for anesthesia. Normal [facility] Anesthesia Postprocedure Lauren luationon 02-25-2022 [employer] Authentication Interface Message Text Anesthesia Postoperative Assessment: [...] ANESTHESIA COMPLICATIONS: No complications documented. 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 Normal [facility] Transfer Of Careo n 02-25-2022 [employer] Authentication Interface Message Text Patient taken to [...] Maite Youssef MD CAA: Mariaa Meneses CAA CHIROPRACTIC TEACHER: Cari Hurtado APRN-CRNA Supervisor Properties: Carol Barrera MD Anesthesia Student: Prema Norris (N/A Mouth) Intraoperative Events: No acute event [...] report was received. PADMINI Chiang Normal The [facility] Blood Attestationon 02-26-20 [employer] Authentication Interface Message Text Blood Attestation ATTESTATION OF INFORMED CONSENT FOR BLOOD The transfusion of blood and/or blood components were discussed with the patient and/or legal product support representative. The risks, benefits and alternatives were reviewed. Questions regarding blood transfusions were answered. The patient /or the patient's legal product support representative agree with the plan for transfusion of blood and/or blood components. Normal [facility] Brief Operative Noteon 02-25 Offal [employer] Authentication Interface Message Text Brief Operative Note MAIN OR 11 Isabelle Hewitt 46 year old female Surgical Contact Serial Number: [id number] Preoperative Diagnosis: IDONNE (obstructive sleep apnea) [G47.33] Postoperative Diagnosis: * DIONNE (obstructive sleep apnea) [G47.33] Procedures: Surgical CPTs Procedures * PALATOPHARYNGOPLASTY No data filed Surgeon(s): Surgeon(s): Yi Moreno MD Staff: Scrub: Wiley Álvarez Diesel Powerplant Mechanic Helper Nurse: Mariaa Briseno; Dulce Allred; Babs Wells RN Sheep Sorter: Yi Piña MD; Unruly Biggs MD Anesthesia: Consult Anesthesiologist: Maite Youssef MD CAA: Mariaa Meneses CAA CHIROPRACTIC TEACHER: Cari Hurtado APRN-CRNA Supervisor Properties: Carol Barrera MD Anesthesia Student: Prema Norris [...] Moreno MD 02/25/2022 10:40 AM Normal [facility] Care Plan Noteon 02-25-2022 Off[employer] Authentication Interface Message Text Problem: Routine Care: [...] will be met Outcome: Progressing Normal [facility] OP Noteon 02-25-2022 Off[employer] Authentication Interface Message Text [id number] Isabelle Vallejodoreenramon 1975 @PATFNAME@ @PATIENTLASTNAME@ [id number] Preoperative diagnosis: 1. Obstructive sleep apnea 2. Pharyngeal stenosis Postoperative diagnosis: Same Procedure: 1. Expansion sphincter pharyngo-plasty 2. Tonsillectomy Surgeon: Yi Pino. Surgeons: Arturo biggs Anesthesia: Gen. Indication: Patient with obstructive sleep apnea and CPAP intolerance, who was found to have a oral pharyngeal/retro-palat al obstruction. Above procedure recommended to improve this [...] to recovery in stable condition. Normal [facility] Progress Noteson 02-25-2022 Offal Rol[employer] Authentication Interface Message Text No excessive swallowing. [...] Positive Positive [facility] Telephone Encounteron 2021 Offal Rol[employer] Authentication Interface Message Text PSE received pre-op COVID test results - NOT DETECTED on 02/23/2022. Document scanned into [employer]. Normal [facility] Covid-19 PCR (CVDTBH)on SARS-CoV-2 (COVID-19) RNA JOHNNIE+probe Ql (Unsp spec) Not detected Normal NOT DETECTED The [facility] Comment on above: Result Comment: When diagnostic [...] for this test is supported by the [place] of Health and Human Service's declaration that [...] used). Performed By: #### C BC #### [facility] [address] [place] [address] Dr. Stephanie Gibbs XR ABDOMEN (KUB) (SINGLE [...] definite urinary tract or other significant calcifications [facility] Adali Gill M D - 02/19/2022 EXAMINATION: [...] pattern, large colonic fecal Stable left nephrolithiasis [employer] Phone: Radiology Study observation (narrative) [employer] / [employer] Phone: XR ABDOMEN (KUB) (SINGLE AP VIEW)Ordered By: Adali Gill on 02-19-2022 [employer] Phone: EKG 12 LEAD - PERFORMon - Diagnosis Normal sinus rhythm Nonspecific T wave abnormality Abnormal ECG No previous ECGs available Confirmed by OLGA MONTES ([id number]) on 02/17/2022 9:51:58 PM [facility] 72 BPM [facility] wave axis 9 degrees [facility] P-R Interval 154 ms [facility] Q-T interval 416 ms [facility] Q-T interval corrected 455 ms [facility] QRS axis 10 degrees [facility] Q[facility] duration 78 ms [facility] T wave axis 39 degrees [facility] Telephone Encounteron 2021 SARS-CoV-2 (COVID-19) RNA JOHNNIE+probe Ql (Unsp spec) Patient is scheduled for surgery 02/25/2022. Prefers to complete pre-op COVID testing closer to home. Instructed to obtain testing 48-72 hours prior to surgery and bring copy of results on day of surgery. PSE contact information provided, order faxed to [facility] per patient request. Normal [facility] PSE Appt H AND Neftali 2 Offal Roller Authentication Interface Message Text Patient was identified by name and date of . Quinton Anais Bill of rights provided to patient Normal [facility] Patient Instructionson 02-16 Offal Roller Authentication Interface Message Text On the morning [...] for pain Please hold all Vitamin E, [place] 3, fish oil and herbal supplements for 1 week prior to surgery Normal [facility] Telephone Encounteron 2021 Offal Roller Authentication Interface Message Text Arrangements to be made for pre-op COVID testing per ENT request. Normal [facility] FLUORO FOR SURGICAL PROCEDUR ESon 01-05-2022 Radiology exam is complete. No Radiologist dictation. Please follow up with ordering provider. PN RIS CONSOLIDATED , Urineon 05-17-202 2 Beta HCG ( test) Ql (U) Negative NEGATIVE [facility] Comment on above: Specimens with hCG l evels near the threshold of the test (25 mIU/mL) may give a negative or indeterminate result. In such cases, another test should be performed with a new specimen in 48-72 hours. If early is suspected clinically in this setting, correlation with quantitative serum b-hCG level is suggested. The [employer] has confirmed the use of plasma for this test. This has not been cleared or approved by the U.S. Food and Drug Administration. The FDA has determined that such clearance is not necessary. [employer] Basic Metabolic Panelon 12-20 Anion gap [Moles/Vol] 8 mmol/L Low 9 - 17 mmol/L [facility] Calcium [Mass/Vol] 8.9 mg/dL 8.6 - 10. 4 mg/dL [facility] Chloride [Moles/Vol] 101 mmol/L 98 - 10 7 mmol/L [facility] CO2 [Moles/Vol] 29 mmol/L 20 - 31 mmol/L [facility] Creatinine [Mass/Vol] 0.87 mg/dL 0.50 - 0.90 mg/dL [facility] GFR >60 >60 mL/min [facility] GFR Non- >60 >60 mL/min [facility] Glucose [Mass/Vol] 98 mg/dL 70 - 99 mg/dL [facility] Interpretation and review of laboratory results Abnormal [facility] Potassium [Moles/Vol] 4.3 mmol/L 3.7 - 5.3 mmol/L [facility] Sodium [Moles/Vol] 138 mmol/L 135 - 144 mmol/L [facility] Urea nitrogen (BldV) [Mass/Vol] 8 mg/dL 6 - 20 mg/dL [facility] Urea nitrogen/Creatinine (Bld) [Mass ratio] 9 [facility] CBC with Auto Differentialon 12-30-2021 Absolute Eos # 0.38 [facility] th Absolute Immature Granulocyte 0.06 [facility] Absolute Lymph # 2.56 [facility] alth Absolute [place] # 0.69 [facility] lth Basophils (Bld) [#/Vol] 0.09 10*3/uL [facility] Basophils/100 WBC (Bld) 1 % 0 - 2 % [facility] Eosinophils/100 WBC (Bld) 4 % 1 - 4 % [facility] Hematocrit (Bld) [Volume fraction] 38.7 % 36.3 - 47.1 % [facility] Hemoglobin.gastrointest inal spec 1 Ql (Stl) 13.0 g/dL 11.9 - 15.1 g/dL [facility] Immature granulocytes/100 WBC (Bld) 1 % High 0 [facility] Interpretation and review of laboratory results Abnormal [facility] Lymphocytes/100 WBC (Bld) 27 % 24 - 43 % [facility] MCH (RBC) [Entitic mass] 33.1 pg 25.2 - 33.5 pg [facility] MCHC (RBC) [Mass/Vol] 33.6 g/dL 28.4 - 34.8 g/dL [facility] MCV (RBC) [Entitic vol] 98.5 fL 82.6 - 102.9 fL [facility] Monocytes/100 WBC (Bld) 7 % 3 - 12 % [facility] NRBC Automated 0.0 0.0 per 100 WBC [facility] Platelet distribution width (Bld) [Ratio] 12.9 % 11.8 - 14.4 % [facility] Platelet mean volume (Bld) [Entitic vol] 9.8 fL 8.1 - 13.5 fL [facility] Platelets (Bld) [#/Vol] 284 10*3/uL [facility] RBC (Bld) [#/Vol] 3.93 10*6/uL Low 3.95 - 5.1 1 m/uL [facility] Segmented neutrophils/100 WBC (Bld) 60 % 36 - 65 % [facility] Segs Absolute 5.62 [facility] W[facility] (Bld) [#/Vol] 9.4 10*3/uL [facility] - Chemistry and C hemistry - challengeon 12-30-2021 GFR/1.73 sq M.predicted MDRD (S/P/Bld) [Vol rate/Area] [facility] Comment on above: Average GFR for 40-4 9 years old: 99 mL/min/1.73sq m Chronic Kidney Disease: <60 mL/min/1.73sq m Kidney failure: <15 mL/min/1.73sq m eGFR calculated using average adult body mass. Additional eGFR calculator available at: http://www.Thermedical/multiple_crcl_2012.htm Stage 1: Some kidney damage normal GFR Stage 2: Mild kidney damage GFR 60-89 Stage 3: Moderate kidney damage GFR 30-59 Stage 4: Severe kidney damage GFR 15-29 Stage 5: Severe kidney damage GFR <15 ESRD - chronic treatment by dialysis or transplant XR ABDOMEN (KUB) (SINGLE AP VIEW)on 12-22-2021 Nonobstructed bowel-gas pattern. No definite renal or ureteral stones. [facility] EXAMINATION: ONE SUPINE XRAY VIEW(S) OF THE ABDOMEN 12/22/2021 5:15 pm COMPARISON: October 13, 2021 HISTORY: ORDERING SYSTEM PROVIDED HISTORY: Kidney stones TECHNOLOGIST PROVIDED HISTORY: kidney stones FINDINGS: Bowel gas pattern nonobstructed. Renal shadows partially obscured by bowel gas and fecal debris. No definite renal or ureteral stones. No acute osseous abnormality. [facility] Perry Neely DO - [...] pattern. No definite renal or ureteral stones. [employer] Work Phone: Radiology Study observation (narrative) [employer] Work Phone: XR ABDOMEN (KUB) (SINGLE AP VIEW)Ordered By: Perry Neely on 12-22-2021 [employer] Phone: Office Visit (Cardiology)on 12-02-2021 Follow-up visit [...] Recorded: 02Dec2021 03:38PM Heart Rate72, R Radial [id number] Prnucizbw23 Height5 ft 2 in Ymwrjf688 lb BMI Ndpboqstcs36.47 kg/m2 BSA Calculated1.84 Tobacco Useb) No PHQ-2 [...] Dec 02 2021 5:03PM EST (Author) Normal [facility] Tobacco Screening.on 022 Adult depression screening assessment No -[facility] DO Work Phone: Tobacco use status CPHS b) No M -[facility] DO Work [...] Metabolic Panel; Status:Active - Retrospective Authorization; Requested for:[id number]; IO EKG Electrocardiogram- 12 Lead; Status:Complete; Done: [id number] Class 1 obesity with body mass index (BMI) of 33.0 to 33.9 in adult Healthy Weight Tips; Status:Complete - Retrospective Authorization; Done: [id number] Health Maintenance Depression Follow-up Visit Outpatient Follow-up Status: Complete - Retrospective Authorization Done: [id number] SocHx: Former smoker Tobacco Use Screening; Status:Complete; Done: [id number] Tobacco Use Screening; Status:Complete; Done: [id number] Unlinked Stop: Furosemide 40 MG Oral Tablet [...] 1 t (more content not included)... Normal [facility] Tobacco Screening.on 022 Adult depression screening assessment Yes -[facility] DO Work Phone: Tobacco use status CPHS b) No M -[facility] DO Work Phone: Tobacco Screening. 1-Several days [facility] 250 DO Work Phone: Tobacco Screening. 3-Nearly every day [facility] 250 DO Work Phone: Tobacco Screening. 0-Not at all [facility] 250 DO Work Phone: Tobacco Screening. 2-More than half the days [facility] 250 DO Work Phone: Vital Signs Date Time Vital Sign Value Performing Clinician Facility 03-13-2024 15:43-0400 Body height 157.48 cm Gena Bracketr Work Phone: [facility] 03-13-2024 15:43-0400 Body mass index (BMI) [Ratio] 27.3 kg/m2 Gena Bracketr Work Phone: [facility] 03-13-2024 15:43-0400 Body weight 68 kg Gena SYSTRANz Work Phone: [facility] 12-12-2023 15:54-0400 Body height 157.48 cm Gena SYSTRANz Work Phone: [facility] 12-12-2023 15:54-0400 Body mass index (BMI) [Ratio] 27.4 kg/m2 Gena Aichholz Work Phone: [facility] 12-12-2023 15:54-0400 Body weight 68.03 kg Gena SYSTRANz Work Phone: [facility] 12-12-2023 15:54-0400 Diastolic blood pressure 97 mm[Hg] Gena Aichholz Work Phone: [facility] 12-12-2023 15:54-0400 Heart rate 103 /min Gena Aichholz Work Phone: [facility] 12-12-2023 15:54-0400 Systolic blood pressure 137 mm[Hg] Gena Aichholz Work Phone: [facility] 11-02-2023 15:32-0400 Body height 157.48 cm Gena Aichholz Work Phone: [facility] 11-02-2023 15:32-0400 Body mass index (BMI) [Ratio] 27.4 kg/m2 Gena Aichholz Work Phone: [facility] 11-02-2023 15:32-0400 Body weight 68.03 kg Gnea Aichholz Work Phone: [facility] 11-02-2023 15:32-0400 Heart rate 67 /min Gena Aichholz Work Phone: [facility] 10-14-2023 12:37-0500 Body height 157.48 cm Gena Aichholz Work Phone: [facility] 10-14-2023 12:37-0500 Body mass index (BMI) [Ratio] 28 kg/m2 Gena Aichholz Work Phone: [facility] 10-14-2023 12:37-0500 Body temperature 99.4 [degF] Gena Aichholz Work Phone: [facility] 10-14-2023 12:37-0500 Body weight 69.62 kg Gena Aichholz Work Phone: [facility] 10-14-2023 12:37-0500 Diastolic blood pressure 94 mm[Hg] Gena Aichholz Work Phone: [facility] 10-14-2023 12:37-0500 Heart rate 81 /min Gena Aichholz Work Phone: [facility] 10-14-2023 12:37-0500 Respiratory rate 16 /min Gena Aichholz Work Phone: [facility] 10-14-2023 12:37-0500 SaO2% (BldA) [Mass fraction] 97 % Gena Aichholz Work Phone: [facility] 10-14-2023 12:37-0500 Systolic blood pressure 131 mm[Hg] Gena Aichholz Work Phone: [facility] 09-20-2023 15:30-0500 Body height 157.48 cm Wiley Mcmanus Other [facility] 09-20-2023 15:30-0500 Body mass index (BMI) [Ratio] 30.18 kg/m2 Wiley Mcmanus Other [facility] Other 09-20-2023 15:30-0500 Body weight 74.84 kg Wiley Mcmanus Other [facility] 08-08-2023 13:25-0500 Diastolic blood pressure 89 mm[Hg] Gena Aichholz Work Phone: [facility] 08-08-2023 13:25-0500 Heart rate 75 /min Gena Aichholz Work Phone: [facility] 08-08-2023 13:25-0500 Respiratory rate 16 /min Gena Aichholz Work Phone: [facility] 08-08-2023 13:25-0500 SaO2% (BldA) [Mass fraction] 99 % Gena Aichholz Work Phone: [facility] 08-08-2023 13:25-0500 Systolic blood pressure 117 mm[Hg] Gena Aichholz Work Phone: [facility] 08-08-2023 11:41-0500 Body height 157.48 cm Gena Kirby Work Phone: [facility] 08-08-2023 11:41-0500 Body weight 77.11 kg Gena Kirby Work Phone: [facility] 06-30-2023 09:20-0500 Body height 157.48 cm Majo Scfredi Other [employer] Other 06-30-2023 09:20-0500 Body mass index (BMI) [Ratio] 30.18 kg/m2 Majo Scovanner Other [employer] Other 06-30-2023 09:20-0500 Body weight 74.84 kg Majo Scovanner Other [employer] Other 06-30-2023 09:20-0500 Diastolic blood pressure 87 mm[Hg] Majo Scovanner Other [employer] Other 06-30-2023 09:20-0500 Systolic blood pressure 115 mm[Hg] Majo Scovanner Other [employer] Other 06-07-2023 12:30-0400 Body height 157.48 cm Louise Johnson Other [employer] Other 06-07-2023 12:30-0400 Body mass index (BMI) [Ratio] 31.05 kg/m2 Louise Johnson Other [employer] Other 06-07-2023 12:30-0400 Body temperature 98 [degF] Louise Johnson Other [employer] Other 06-07-2023 12:30-0400 Body weight 77.02 kg Louise Alex Other [employer] Other 06-07-2023 12:30-0400 Diastolic blood pressure 78 mm[Hg] Louise Johnson Other [employer] Other 06-07-2023 12:30-0400 Respiratory rate 18 /min Louise Johnson Other [employer] Other 06-07-2023 12:30-0400 SaO2% (BldA) [Mass fraction] 98 % Louise Johnson Other [employer] Other 06-07-2023 12:30-0400 Systolic blood pressure 117 mm[Hg] Louise Johnson Other [employer] Other 07-17-2022 04:28-0500 Body temperature 98.29 [degF] Rikki Rodrigues DMD, MD Work Phone: [facility] 07-17-2022 04:28-0500 Diastolic blood pressure 80 mm[Hg] Rikki Rodrigues DMD, MD Work Phone: [facility] 07-17-2022 04:28-0500 Heart rate 54 /min Rikki Rodrigues DMD, MD Work Phone: [facility] 07-17-2022 04:28-0500 Respiratory rate 18 /min Rikki Rodrigues DMD, MD Work Phone: [facility] 07-17-2022 04:28-0500 SaO2% (BldA) [Mass fraction] 96 % Rikki Rodrigues DMD, MD Work Phone: [facility] 07-17-2022 04:28-0500 Systolic blood pressure 109 mm[Hg] Rikki Rodrigues DMD, MD Work Phone: [facility] 07-14-2022 15:17-0500 Body mass index (BMI) [Ratio] 36.29 kg/m2 Rikki Rodrigues DMD, MD Work Phone: [facility] 07-14-2022 15:17-0500 Body weight 90 kg Rikki Rodrigues DMD, MD Work Phone: [facility] 07-14-2022 14:55-0500 Body height 157.5 cm Rikki Rodrigues DMD, MD Work Phone: [facility] 07-14-2022 09:01-0500 SaO2% (BldA) [Mass fraction] 98.8 % Rikki Rodrigues DMD, MD Work Phone: [facility] 07-08-2022 13:59-0500 Body height 157.5 cm Gena Holbrook GENERAL DENTIST-SELF CONTAINED BEHAVIOR UNIT TEACHER Work Phone: [facility] 07-08-2022 13:59-0500 Body mass index (BMI) [Ratio] 35.96 kg/m2 Gena Peterio GENERAL DENTIST-SELF CONTAINED BEHAVIOR UNIT TEACHER Work Phone: [facility] 07-08-2022 13:59-0500 Body temperature 97.9 [degF] Gena Yusef GENERAL DENTIST-SELF CONTAINED BEHAVIOR UNIT TEACHER Work Phone: [facility] 07-08-2022 13:59-0500 Body weight 89.18 kg Gena Yusef GENERAL DENTIST-SELF CONTAINED BEHAVIOR UNIT TEACHER Work Phone: [facility] 07-08-2022 13:59-0500 Diastolic blood pressure 80 mm[Hg] Gena Yusef GENERAL DENTIST-SELF CONTAINED BEHAVIOR UNIT TEACHER Work Phone: [facility] 07-08-2022 13:59-0500 Heart rate 98 /min Gena Yusef GENERAL DENTIST-SELF CONTAINED BEHAVIOR UNIT TEACHER Work Phone: [facility] 07-08-2022 13:59-0500 Respiratory rate 14 /min Gena Yusef GENERAL DENTIST-SELF CONTAINED BEHAVIOR UNIT TEACHER Work Phone: [facility] 07-08-2022 13:59-0500 SaO2% (BldA) [Mass fraction] 98 % Gena Holbrook GENERAL DENTIST-SELF CONTAINED BEHAVIOR UNIT TEACHER Work Phone: [facility] 07-08-2022 13:59-0500 Systolic blood pressure 122 mm[Hg] Gena Holbrook GENERAL DENTIST-SELF CONTAINED BEHAVIOR UNIT TEACHER Work Phone: [facility] 06-18-2022 15:09-0400 Diastolic blood pressure 89 mm[Hg] Rikki Rodrigues DMD, MD Work Phone: [facility] 06-18-2022 15:09-0400 Heart rate 117 /min Rikki Rodrigues DMD, MD Work Phone: [facility] 06-18-2022 15:09-0400 Systolic blood pressure 120 mm[Hg] Rikki Rodrigues DMD, MD Work Phone: [facility] 06-18-2022 15:07-0400 Body height 157.5 cm Rikki Rodrigues DMD, MD Work Phone: [facility] 06-18-2022 15:07-0400 Body mass index (BMI) [Ratio] 34.75 kg/m2 Rikki Rodrigues DMD, MD Work Phone: [facility] 06-18-2022 15:07-0400 Body weight 86.18 kg Rikki Rodrigues DMD, MD Work Phone: [facility] 05-28-2022 09:00-0400 Body height 157.5 cm Pse Rn [facility] 05-28-2022 09:00-0400 Body mass index (BMI) [Ratio] 34.75 kg/m2 Pse Rn [facility] 05-28-2022 09:00-0400 Body weight 86.18 kg Pse Rn [facility] 02-26-2022 12:49-0400 Body temperature 97.81 [degF] Yi Moreno MD Work Phone: [facility] 02-26-2022 12:49-0400 Diastolic blood pressure 57 mm[Hg] Yi Moreno MD Work Phone: [facility] 02-26-2022 12:49-0400 Heart rate 78 /min Yi Moreno MD Work Phone: [facility] 02-26-2022 12:49-0400 Respiratory rate 18 /min Yi Moreno MD Work Phone: [facility] 02-26-2022 12:49-0400 SaO2% (BldA) [Mass fraction] 92 % Yi Moreno MD Work Phone: [facility] 02-26-2022 12:49-0400 Systolic blood pressure 101 mm[Hg] Yi Moreno MD Work Phone: [facility] 02-25-2022 18:16-0400 Body mass index (BMI) [Ratio] 32.92 kg/m2 Yi Moreno MD Work Phone: [facility] 02-25-2022 18:16-0400 Body weight 81.65 kg Yi Moreno MD Work Phone: [facility] 02-25-2022 08:08-0400 Body height 157.5 cm Yi Moreno MD Work Phone: [facility] 02-17-2022 22:11-0400 Heart rate 72 /min Pierce Ramos APRN-SELF CONTAINED BEHAVIOR UNIT TEACHER Work Phone: [facility] [facility] 14:19-0400 Body height 157.5 cm Pierce Ramos GENERAL DENTIST-SELF CONTAINED BEHAVIOR UNIT TEACHER [facility]16[facility]22 14:19-0400 Body mass index (BMI) [Ratio] 32.92 kg/m2 Pierce Ramos GENERAL DENTIST-SELF CONTAINED BEHAVIOR UNIT TEACHER [facility] 02-16-2022 14:19-0400 Body temperature 97.3 [degF] Pierce Ramos GENERAL DENTIST-SELF CONTAINED BEHAVIOR UNIT TEACHER [facility] 02-16-2022 14:19-0400 Body weight 81.65 kg Pierce Ramos GENERAL DENTIST-SELF CONTAINED BEHAVIOR UNIT TEACHER [facility] 02-16-2022 14:19-0400 Diastolic blood pressure 81 mm[Hg] Pierce Ramos APRN-SELF CONTAINED BEHAVIOR UNIT TEACHER [facility] 02-16-2022 14:19-0400 Heart rate 74 /min Pierce Ramos GENERAL DENTIST-SELF CONTAINED BEHAVIOR UNIT TEACHER [facility] 02-16-2022 14:19-0400 Respiratory rate 16 /min Pierce Ramos GENERAL DENTIST-SELF CONTAINED BEHAVIOR UNIT TEACHER [facility]: [facility] 02-16-2022 14:19-0400 SaO2% (BldA) [Mass fraction] 96 % Pierce Ramos APRN-SELF CONTAINED BEHAVIOR UNIT TEACHER [facility] 02-16-2022 14:19-0400 Systolic blood pressure 125 mm[Hg] Pierce Ramos APRN-SELF CONTAINED BEHAVIOR UNIT TEACHER [facility]: [facility] 01-11-2022 14:20-0400 Diastolic blood pressure 87 mm[Hg] Yi Moreno MD Work Phone: [facility] 01-11-2022 14:20-0400 Heart rate 86 /min Yi Moreno MD [facility]: [facility] 01-11-2022 14:20-0400 Systolic blood pressure 116 mm[Hg] Yi Moreno MD [facility] 01-11-2022 14:12-0400 Body height 157.5 cm Yi Moreno MD [facility]: [facility] 01-11-2022 14:12-0400 Body mass index (BMI) [Ratio] 34.39 kg/m2 Yi Moreno MD [facility] 01-11-2022 14:12-0400 Body temperature 98.8 [degF] Yi Moreno MD [facility] 01-11-2022 14:12-0400 Body weight 85.28 kg Yi Moreno MD [facility] 01-11-2022 14:12-0400 Respiratory rate 18 /min Yi Moreno MD Work Phone: [facility] 01-11-2022 14:12-0400 SaO2% (BldA) [Mass fraction] 100 % Yi Moreno MD Work Phone: [facility] 01-05-2022 16:25-0400 Diastolic blood pressure 82 mm[Hg] Bertha Hirsch MD [facility]: [facility] [employer] 01-05-2022 16:25-0400 Heart rate 87 /min Bertha Hirsch MD Work Phone: [facility] [employer] 01-05-2022 16:25-0400 Respiratory rate 16 /min Bertha Hirsch MD Work Phone: [facility] [employer] 01-05-2022 16:25-0400 SaO2% (BldA) [Mass fraction] 94 % Bertha Hirsch MD Work Phone: [facility] [employer] 01-05-2022 16:25-0400 Systolic blood pressure 122 mm[Hg] Bertha Hirsch MD Work Phone: [facility] [employer] 01-05-2022 16:00-0400 Body temperature 96.91 [degF] Bertha Hirsch MD Work Phone: [facility] [employer] 01-05-2022 13:35-0400 Body height 157.5 cm Bertha Hirsch MD Work Phone: [facility] [employer] 01-05-2022 13:21-0400 Body mass index (BMI) [Ratio] 34.06 kg/m2 Bertha Hirsch MD [facility]: [facility] 01-05-2022 13:21-0400 Body weight 84.46 kg Bertha Hirsch MD Work Phone: [facility] [employer] 12-02-2021 15:38-0400 Body height 157.48 cm Gena Laine Aichholz Work Phone: [facility] 250 DO Work Phone: 12-02-2021 15:38-0400 Body mass index (BMI) [Ratio] 33.47 kg/m2 Gena Jang Aichholz Work Phone: [facility] 250 DO Work Phone: 12-02-2021 15:38-0400 Body surface area Derived from formula 1.84 m2 Gena Maldonadohholz Work Phone: [facility] 250 DO Work Phone: 12-02-2021 15:38-0400 Body weight 83.01 kg Gena Maldonadohholz Work Phone: [facility] 250 DO Work Phone: 12-02-2021 15:38-0400 Diastolic blood pressure 70 mm[Hg] Gena Camachoholz Work Phone: [facility]la 250 DO Work Phone: 12-02-2021 15:38-0400 Heart rate 72 /min Gena Camachoholz Work Phone: [facility] 250 DO Work Phone: 12-02-2021 15:38-0400 Systolic blood pressure 92 mm[Hg] Gena Jang Aichholz Work Phone: [facility] 250 DO Work Phone: 11-09-2021 15:15-0400 Body height 157.48 cm Wiley Mcmanus Other [employer] Other 11-09-2021 15:15-0400 Body mass index (BMI) [Ratio] 32.55 kg/m2 Wiley Mcmanus Other [employer] Other 11-09-2021 15:15-0400 Body temperature 98.5 [degF] Wiley Ynoathan Other [employer] Other 11-09-2021 15:15-0400 Body weight 80.74 kg Wiley Mcmanus Other [employer] Other 11-09-2021 15:15-0400 Diastolic blood pressure 81 mm[Hg] Wiley Yonathan Other [employer] Other 11-09-2021 15:15-0400 SaO2% (BldA) [Mass fraction] 94 % Wiley Yonathan Other [employer] Other 11-09-2021 15:15-0400 Systolic blood pressure 122 mm[Hg] Wiley Yonathan Other [employer] Other 10-14-2021 15:34-0500 Diastolic blood pressure 98 mm[Hg] Genasue Mcdonnellz Work Phone: [facility] [employer] 250 DO Work Phone: 10-14-2021 15:34-0500 Systolic blood pressure 152 mm[Hg] Genasue MaldonadoMSDSonline.comholz Work Phone: [employer] 250 DO Work Phone: 10-14-2021 15:23-0500 Body height 157.48 cm Genasue Maldonadohholz Work Phone: [employer] 250 DO Work Phone: 10-14-2021 15:23-0500 Body mass index (BMI) [Ratio] 33.47 kg/m2 Genasue Maldonadohholz Work Phone: [employer] 250 DO Work Phone: 10-14-2021 15:23-0500 Body surface area Derived from formula 1.84 m2 Gena Maldonadohholz Work Phone: [facility] 250 DO Work Phone: 10-14-2021 15:23-0500 Body weight 83.01 kg Gena Maldonadohholz Work Phone: [facility] 250 DO Work Phone: 10-14-2021 15:23-0500 Diastolic blood pressure 98 mm[Hg] Gena Jang Aichholz Work Phone: [facility] 250 DO Work Phone: 10-14-2021 15:23-0500 Heart rate 78 /min Gena Maldonadohholz Work Phone: [facility] 250 DO Work Phone: 10-14-2021 15:23-0500 Systolic blood pressure 160 mm[Hg] Gena Maldonadohholz Work Phone: [facility] 250 DO Work Phone: 10-14-2021 15:23-0500 16 1 Gena Jang Aichholz Work Phone: [facility] 250 DO Work Phone: Comment on above: PHQ-9 TS Encounters Encounter Date Encounter Type Care Provider Facility Start: 04-02-2024 ambulatory HERMES MORENO MD~[id number] [facility] Start: 03-13-2024 End: 03-13-2024 ambulatory Gena Kirby Work Phone: [facility] Work Phone: Start: 03-13-2024 End: 03-13-2024 Patient encounter procedure Gena Kirby Work Phone: [facility] Gastroenterology Work Phone: Start: 01-25-2024 End: 01-25-2024 ambulatory GENA CAMACHOHOLThong Not Available Start: 12-29-2023 End: 12-29-2023 ambulatory Gena J Aichholz Facility:[facility] Start: 12-29-2023 End: 12-29-2023 ambulatory Gena J Aichholz Work Phone: [facility] Work Phone: Start: 12-29-2023 End: 12-29-2023 Departed Referred Gena Joeltiffholz Work Phone: [facility]-LAB [facility] Start: 12-28-2023 End: 12-28-2023 ambulatory [facility] Start: 12-16-2023 End: 12-16-2023 ambulatory Gena J Joelhholz Facility:[facility] Start: 12-16-2023 End: 12-16-2023 ambulatory Gena J Aichholz Work Phone: [facility] Work Phone: Start: 12-16-2023 Non-patient / Non-visit Gena A hunterholz Work Phone: [facility] Work Phone: Start: 12-16-2023 End: 12-16-2023 Patient encounter procedure Gena Aictiffholz Work Phone: [facility]-Sleep Lab Work Phone: Start: 12-14-2023 End: 12-14-2023 ambulatory Gena J Aichholz Work Phone: [facility] Work Phone: Start: 12-14-2023 End: 12-14-2023 Patient encounter procedure Gena Aichholz Work Phone: [facility]-Sleep Lab Work Phone: Start: 12-12-2023 End: 12-12-2023 ambulatory Gena J Joelhholz Work Phone: [facility] Work Phone: Start: 12-12-2023 End: 12-12-2023 Patient encounter procedure Gena Janiceholz Work Phone: [facility] Gastroenterology Work Phone: Start: 11-24-2023 End: 11-24-2023 ambulatory [facility] Start: 11-22-2023 End: 11-22-2023 ambulatory ROSHNI ANDERS Not Available Start: 11-02-2023 End: 11-02-2023 Patient encounter procedure Gena Janiceholz Work Phone: [facility] Gastroenterology Work Phone: Start: 10-14-2023 End: 10-14-2023 ambulatory Gena J Joelhholz Work Phone: [facility] Work Phone: Start: 10-14-2023 End: 10-14-2023 Patient encounter procedure Gena Janiceholz Work Phone: [facility] Urgent Care [facility] Work Phone: Start: 10-11-2023 End: 10-11-2023 ambulatory [facility] Start: 09-29-2023 End: 10-02-2023 ambulatory ELIN Ramesh BALLARD [facility] Start: 09-20-2023 End: 09-20-2023 ambulatory Gena J Jolehholz Facility:[facility] Start: 09-20-2023 End: 09-20-2023 Patient encounter procedure Gena Joelhholz Work Phone: [facility]-Sleep Lab Work Phone: Start: 09-20-2023 End: 09-20-2023 ambulatory Gena J Aichholz Work Phone: [facility] Work Phone: Start: 09-20-2023 Office outpatient vi sit 25 minutes Wiley Mcmanus [facility] Start: 09-20-2023 End: 09-20-2023 Patient encounter procedure Gena Kofi Work Phone: [facility]- Start: 09-15-2023 End: 09-16-2023 ambulatory ELIN Ramesh ELIO [facility] Start: 08-26-2023 End: 08-26-2023 ambulatory MAJO Andino ALAYNA [facility] Start: 08-24-2023 End: 08-24-2023 ambulatory GENA KOFI Not Available Start: 08-12-2023 End: 08-12-2023 ambulatory Imad Asaad Other [employer] Other Start: 08-12-2023 Telephone encounter Imad Asaad [facility] Start: 08-10-2023 End: 08-10-2023 ambulatory Imad Asaad Other [employer] Other Start: 08-10-2023 Telephone encounter Imad Asaad [facility] Start: 08-08-2023 End: 08-08-2023 ambulatory Gena Kirby Facility:[facility] Start: 08-08-2023 End: 08-08-2023 Admission to same day surgery center Gena Kofi Work Phone: [facility]-Digestive [facility] Work Phone: Start: 08-08-2023 End: 08-08-2023 ambulatory Gena Andion Joelhludmila Work Phone: [facility] Work Phone: Start: 06-30-2023 End: 06-30-2023 Patient encounter procedure Gena Kofi Work Phone: [facility]-Lab [facility] [place] Work Phone: Start: 06-30-2023 End: 06-30-2023 ambulatory Gena Andino Joeltiffludmila Work Phone: [employer] Other Start: 06-30-2023 Office outpatient ne w 30 minutes Majo Lyman [facility] Start: 06-30-2023 End: 06-30-2023 Patient encounter procedure Gena Kofi Work Phone: [facility] Work Phone: Start: 06-07-2023 End: 06-07-2023 ambulatory Louise Johnson Other [facility] [employer] Other Start: 06-07-2023 Encounter by compute r link Louise Johnson [facility] Start: 06-07-2023 Office outpatient vi sit 25 minutes Louise Johnson [facility] Start: 03-16-2023 End: 03-16-2023 ambulatory Wiley Mcmanus Facility:[facility] Start: 03-16-2023 End: 03-16-2023 ambulatory Gena Andino Kofi Work Phone: [facility] Work Phone: Start: 03-16-2023 End: 03-16-2023 Patient encounter procedure Gena Joeltiffludmila Work Phone: [facility]-Sleep Lab Work Phone: Start: 03-08-2023 End: 03-11-2023 ambulatory [facility] Start: 01-26-2023 Telephone encounter Rikki norris DMD, MD [facility] Phone[facility] Start: 01-18-2023 ambulatory SELF CONTAINED BEHAVIOR UNIT TEACHER GENA KIRBY Facil ity:[facility] Start: 12-13-2022 End: 12-14-2022 ambulatory [facility] Start: 12-13-2022 End: 12-13-2022 Subsequent hospital visit by physician [facility] Comment on above: OAB (overactive blad darinel); Urge incontinence; Frequency of urination Start: 11-26-2022 End: 11-26-2022 ambulatory BRIAN KIRBY Facility:[facility] Start: 11-16-2022 End: 11-16-2022 ambulatory Gena Kirby Work Phone: [facility] Work Phone: Start: 11-16-2022 End: 11-16-2022 Patient encounter procedure Gena Kirby Work Phone: [facility]-Sleep Lab Work Phone: Start: 11-12-2022 End: 11-12-[address] OSWALD HARRINGTON . Facility:[facility] Start: 11-04-2022 Telephone encounter Yi wylie MD Work Phone: [facility] Otolaryngology (ENT) Start: 11-01-2022 Encounter for preprocedural cardiovascular examination DR OSWALD HARRINGTON . [facility] Start: 11-01-2022 Telephone encounter Rikki norris DMD, MD Work Phone: [facility] Oral Surgery Start: 10-28-2022 End: 10-29-[address] OSWALD HARRINGTON . Facility:[facility] Start: 10-28-2022 End: 10-29-2022 Encounter for preprocedural cardiovascular examination DR OSWALD HARRINGTON . Facility:[facility] Start: 10-19-2022 End: 10-19-2022 ambulatory [facility] PROVIDER [facility] Start: 09-24-[address] OSWALD HARRINGTON . Facili ty:[facility]1 Start: 09-21-[address] OSWALD HARRINGTON . Facili ty:[facility]1 Start: 09-02-2022 End: 09-03-2022 ambulatory BRIAN GENA JOELTiffDINORAThong Facility:[facility] Start: 08-30-2022 ambulatory UNKNOWN PROVIDER [facility] Start: 08-30-2022 End: 08-30-2022 Follow-up encounter Rikki Rodrigues DMD, MD Work Phone: [facility] Start: 08-30-2022 End: 08-30-2022 Patient encounter procedure Rikki Rodrigues DMD, MD Work Phone: [facility] Oral Surgery Comment on above: Post-operative state (Primary Dx) Start: 08-12-2022 End: 08-12-2022 Subsequent hospital visit by physician Gena Kirby [facility] Comment on above: Dysuria Start: 08-11-2022 [...] Start: 07-23-2022 End: 07-23-2022 ambulatory UNKNOWN PROVIDER Facility:[facility] Start: 07-14-2022 End: 07-17-2022 Evaluation and management of inpatient [facility] Start: 07-14-2022 End: 07-15-2022 ambulatory [facility] Start: 07-14-2022 End: 07-14-2022 Subsequent hospital visit by physician Rikki Rodrigues DMD, MD Work Phone: [facility] Radiology Comment on above: Arrived Start: 07-14-2022 End: 07-17-2022 Evaluation and management of inpatient Rikki Rodrigues DMD, MD Work Phone: [facility] [address] A Comment on above: DIONNE (obstructive sle ep apnea) (Primary Dx); Pain Start: 07-09-2022 Telephone encounter Yi wylie MD Work Phone: [facility] Otolaryngology (ENT) Comment on above: Patient questions/co ncerns (Patient asking what next step is after jaw surgery) Start: 07-08-2022 End: 07-09-2022 ambulatory UNKNOWN PROVIDER Facility:[facility] Start: 07-08-2022 End: 07-09-2022 Office outpatient new 45 minutes Genasue Holbrook APRN-SELF CONTAINED BEHAVIOR UNIT TEACHER Work Phone: [facility] Pre Surgical Evaluation Comment on above: Pre-op testing (Prim amy Dx); Body mass index (BMI) 35.0-35.9, adult Start: 07-08-2022 End: 07-09-2022 Patient encounter status Gena Yusef PINON-SELF CONTAINED BEHAVIOR UNIT TEACHER Work Phone: [facility] Pre Surgical Evaluation Start: 07-07-2022 End: 07-08-2022 ambulatory SELF CONTAINED BEHAVIOR UNIT TEACHER GENA KIRBY Facility: Start: 07-06-2022 End: 07-06-2022 Patient encounter procedure Pierce Rachel MENESESN-SELF CONTAINED BEHAVIOR UNIT TEACHER Work Phone: [facility] Pre-Surgical Evaluation Comment on above: ENCOUNTER OPENED IN ERROR (Primary Dx) Start: 07-05-2022 Telephone encounter Mary guy RN [facility] Pre Surgical Evaluation Comment on above: Pre-surgical Evaluat ion (Pre-op COVID testing not needed ) Start: 07-02-2022 End: 07-06-2022 ambulatory UNKNOWN PROVIDER Facility:[facility] Start: 07-02-2022 End: 07-02-2022 Follow-up encounter Rikki Rodrigues DMD, MD Work Phone: [facility] Oral Surgery Start: 07-02-2022 End: 07-02-2022 Patient encounter procedure Rikki Rodrigues DMD, MD Work Phone: [facility] Oral Surgery Comment on above: DIONNE (obstructive sle ep apnea) (Primary Dx) Start: 06-18-2022 End: 06-20-2022 Office outpatient new 30 minutes Rikki Rodrigues DMD, MD Work Phone: [facility] Oral Surgery Comment on above: Obstructive sleep ap shaun (Primary Dx); DIONNE (obstructive sleep apnea); Body mass index (BMI) 34.0-34.9, adult Start: 06-18-2022 End: 06-20-2022 Orders Only Saleem Mi CHAU Work Phone: [facility] Oral Surgery Start: 06-15-2022 End: 06-15-2022 ambulatory UNKNOWN PROVIDER Facility:[facility] Start: 06-03-2022 End: 06-03-2022 [facility] Start: 05-31-2022 End: 05-31-2022 ambulatory Isabel Sin Other [employer] Other Start: 05-31-2022 Office outpatient vi sit 5 minutes Isabel Sin [facility] Start: 05-28-2022 Telephone encounter Mary guy RN [facility] Pre Surgical Evaluation Comment on above: Pre-surgical Evaluat ion (Pre-op COVID testing) Start: 05-28-2022 ambulatory UNKNOWN PROVIDER Facili ty:[facility] Start: 05-28-2022 End: 05-28-2022 Nursing evaluation of patient and report Pse Judson [facility] Pre Surgical Evaluation Comment on above: Preop examination (P rimary Dx) Start: 05-28-2022 End: 05-28-2022 Preprocedural examination done Pse Judson [facility] Pre Surgical Evaluation Start: 05-26-2022 Telephone encounter Mary gyu RN [facility] Pre Surgical Evaluation Comment on above: Pre-surgical Evaluat ion (Pre-op COVID testing) Start: 05-19-2022 End: 05-19-2022 ambulatory Gena Kirby Work Phone: [facility] Work Phone: Start: 05-19-2022 End: 05-19-2022 Patient encounter procedure Gena Kirby Work Phone: [facility]-Sleep Lab Start: 05-18-2022 Letter encounter Yi saunders MD Work Phone: [facility] Otolaryngology (ENT) Start: 05-17-2022 End: 05-18-[address] WILEY POE Facility:[facility] Start: 05-11-2022 End: 05-12-[address] OSWALD HARRINGTON . Facility:[facility] Start: 05-07-2022 End: 05-08-[address] OSWALD HARRINGTON . Facility:[facility] Start: 03-29-2022 End: 03-30-2022 Phys/qhp telephone evaluation 11-20 min Yi Moreno MD Work Phone: [facility] Otolaryngology (ENT) Comment on above: DIONNE (obstructive sle ep apnea) (Primary Dx) Start: 03-29-2022 End: 03-30-2022 ambulatory UNKNOWN PROVIDER Facility:[facility] Start: 03-09-2022 End: 03-10-2022 ambulatory SELF CONTAINED BEHAVIOR UNIT TEACHER GENA KIRBY Facility: Start: 03-09-2022 Telephone encounter Yi wylie MD Work Phone: [facility] Otolaryngology (ENT) Start: 02-25-2022 End: 02-26-2022 Evaluation and management of inpatient YI MORENO Facility:[facility] Start: 02-25-2022 End: 02-26-2022 Subsequent hospital visit by physician Yi Moreno MD Work Phone: Inpatient 8B Comment on above: Encounter for carmela woodward testing for severe acute respiratory syndrome coronavirus 2 (SARS-CoV-2) (Primary Dx); DIONNE (obstructive sleep apnea); Postoperative pain Start: 02-24-2022 Telephone encounter Mary guy RN [facility] Pre Surgical Evaluation Comment on above: Pre-surgical Evaluat ion (Pre-op COVID testing - results) Start: 02-23-2022 End: 02-24-[address] DOCTOR ABDULLAHI Facility: Start: 02-19-2022 End: 02-21-2022 Subsequent hospital visit by physician Yaneth Sharp Dr Room 2 [facility] Radiology Comment on above: Ureteral stone Start: 02-17-2022 Telephone encounter Mary guy RN [facility] Pre Surgical Evaluation Comment on above: Pre-surgical Evaluat ion (Pre-op COVID testing) Start: 02-16-2022 End: 02-18-2022 ambulatory UNKNOWN PROVIDER Facility:[facility] Start: 02-16-2022 Encounter for other preprocedural examination [facility]ER [facility] Start: 02-16-2022 End: 02-17-2022 Office outpatient new 45 minutes Melecioflor Rachel GENERAL DENTISTAcesis Work Phone: [facility] Pre-Surgical Evaluation Comment on above: Preop testing (Prima ry Dx); Abnormal electrocardiogram (ECG) (EKG); Body mass index (BMI) 32.0-32.9, adult Start: 02-16-2022 End: 02-17-2022 Patient encounter status Melecioflor Rachel GENERAL DENTIST-SELF CONTAINED BEHAVIOR UNIT TEACHER [facility] [place] [facility] Start: 02-16-2022 Telephone encounter Yi wylie MD Work Phone: [facility] Otolaryngology (ENT) Start: 02-11-2022 Telephone encounter Mary guy RN [facility] Pre Surgical Evaluation Comment on above: Pre-surgical Evaluat ion (Pre-op COVID testing) Start: 02-04-2022 Letter encounter Yi saunders MD Work Phone: [facility] Otolaryngology (ENT) Start: 01-12-2022 End: 01-12-2022 ambulatory Wiley Mcmanus Other [employer] Other Start: 01-12-2022 Telephone encounter Wiley Mcmanus [facility] Start: 01-11-2022 End: 01-11-2022 Office consultation new/estab patient 60 min Yi Moreno MD Work Phone: [facility] Otolaryngology (ENT) Comment on above: DIONNE (obstructive sle ep apnea) (Primary Dx); Body mass index (BMI) 34.0-34.9, adult Start: 01-05-2022 End: 01-05-2022 Subsequent hospital visit by physician Bertha Hirsch MD Work Phone: [facility] OR Start: 12-30-2021 End: 12-30-2021 Patient encounter status Gena Kirby Work Phone: [facility] Laboratory Start: 12-30-2021 End: 12-30-2021 Subsequent hospital visit by physician Gena Kirby Work Phone: [facility] Laboratory Comment on above: Pre-op testing Start: 12-22-2021 End: 12-24-2021 Subsequent hospital visit by physician [facility] Radiology Comment on above: Kidney stones Start: 12-02-2021 Office outpatient vi sit 10 minutes Gena Kirby Work Phone: [facility] 250 DO Work Phone: Start: 11-09-2021 End: 11-09-2021 ambulatory Wiley Mcmanus Other [facility] [employer] Other Start: 11-09-2021 Office outpatient vi sit 40 minutes Wiley Mcmanus [facility] Start: 10-14-2021 Office outpatient vi sit 25 minutes Gena Kirby Work Phone: [facility] [employer] 250 DO Work Phone: Procedures Date Procedure Procedure Detail Performing Clinician Start: 12-14-2023 End: 12-14-2023 Diagnostic radiography of abdomen Gena mckeon Work Phone: Start: 10-14-2023 COVID/Influenza PCR (POC) Gena Kirby Work Phone: Start: 08-08-2023 Colonoscopy Gena Kirby Work Phone: Start: 12-13-2022 Urnls dip stick/tablet reagent auto microscopy Elin Ballard GENERAL DENTIST - SEL[employer] CONTAINED BEHAVIOR UNIT TEACHER Work Phone: Start: 08-12-2022 Urnls dip stick/tablet [...] test visual color cmprsn meths Saleem Mi CHAU Work Phone: Start: 07-14-2022 Glucose blood reagent strip Rikki frey DMD, MD Work Phone: Start: 07-08-2022 Blood typing serologic abo Gena DEL CASTILLO RN-SE[employer] CONTAINED BEHAVIOR UNIT TEACHER Work Phone: Start: 07-08-2022 Blood count complete automated Gena vasquez [facility] DENTIST[facility] Work Phone: Start: 07-08-2022 Blood typing, ABO, Rho(D) and RBC antibody screening Gena Holbrook GENERAL DENTIST-[facility] Work Phone: Start: 06-18-2022 panoramic radiographic image Rikki love DMD, MD Work Phone: Start: 02-25-2022 End: 02-25-2022 UVULOPALATOPHARYNGOPLASTY Yi Moreno MD Work Phone: Start: 02-25-2022 Urine test visual color cmprsn meths Yi Moreno MD Work Phone: Start: 02-19-2022 Radiologic exam abdomen 1 view Jerel Guthrie PA-C Work Phone: Start: 02-16-2022 Ecg routine ecg w/least 12 lds trcg only w/o i&r Pierce Ramos APRN-[facility] Work Phone: Start: 01-11-2022 Laryngoscopy flexible diagnostic Yi Moreno MD Work Phone: Start: 01-05-2022 Fluoroscopy during operation Bertha john MD Work Phone: Start: 01-05-2022 Urine test visual color cmprsn [place] Majo Rodrigues GENERAL DENTIST - CHIROPRACTIC TEACHER Start: 12-30-2021 Basic metabolic panel calcium total Jerel Weber Owen PA-C Work Phone: Start: 12-22-2021 Radiologic exam abdomen 1 view Jerel Weber Do hirsch PA-C Work Phone: section Gena Jang Aic hholz Work Phone: Cholecystectomy Gena Jang Aich ludmila Work Phone: Dental surgical procedure Cassandra Jang Aichholz Work Phone: History of tonsillectomy History of tonsillectomy Gena Aichholz Work Phone: Lithotripsy Gena Jang Aichhol z Work Phone: Plan of Treatment Date Care Activity Detail Author Start: 2025 Shingles (RZV) Vaccine (1 of 2) Shingles (RZV) Vaccine (1 of 2) [facility] Start: 08-08-2023 [facility] Start: 03-22-2023 Influenza vaccination Flu vaccine (Season Ended) [facility] Start: 02-21-2023 End: 02-21-2023 Patient encounter procedure 02/21/2023 Office Visit Urology [facility] Start: 12-21-2022 Cholesterol [Mass/volume] in Serum or Plasma Cholesterol [facility] Start: 10-19-2022 End: 10-19-2022 Patient encounter procedure 10/19/2022 Office Visit Ent-Otolaryngology Yi Moreno MD [address] [facility] [place] [address] [facility] Otolaryngology (ENT) Start: 08-13-2022 End: 08-13-2022 Patient encounter procedure 08/13/2022 Office Visit Or al Surgery Rikki Rodrigues DMD, MD [address] [facility] [place] [address] [facility] Oral Surgery Start: 07-30-2022 End: 07-30-2022 Patient encounter procedure 07/30/2022 Office Visit Or al Surgery Rikki Rodrigues DMD, MD [address] [place] [address] [facility] Start: 07-23-2022 End: 07-23-2022 Telemedicine consultation with patient 07/23/2022 Telemedicine Oral Surgery Rikki Rodrigues DMD, MD [address] [place] [address] [facility] Oral Surgery Start: 07-14-2022 End: 07-14-2022 Admission to same day surgery center 07/14/2022 Surgery General Surgery Rikki Rodrigues DMD, MD [address] [place] [address] [facility] I OSTEOTOMY [facility] Main OR Comment on above: LEFORTE [...] Encounter General Surgery Rikki Rodrigues DMD, MD [address] [place] [address] [facility] OR Start: 07-14-2022 End: 07-14-2022 Admission to same day surgery center 07/14/2022 Surgery General Surgery Rikki Rodrigues DMD, MD [address] [place] [address] LE[facility] I OSTEOTOMY [facility] Main OR Comment on above: LEFORTE I OSTEOTOMY Start: 07-14-2022 End: 07-14-2022 Anesthesia consultation 07/14/2022 Anesthesia Event General Surgery Ki Atwood MD [address] [place] [phone] [facility] Main OR Start: 07-14-2022 End: 07-14-2022 [...] Encounter General Surgery Rikki Rodrigues DMD, MD [address] [place] [address] [facility] Main OR Start: 07-08-2022 End: 07-08-2022 Patient encounter procedure 07/08/2022 Office Visit Presurgical Evaluation Gena Holbrook APRN-[employer] TEACHER [address] [place] [address] [facility] Pre Surgical Evaluation Start: 07-06-2022 End: 07-06-2022 Patient encounter procedure 07/06/2022 Office Visit Presurgical Evaluation Pierce Ramos APRN-BRIAN [address] [place] [address] [place] [address] Preop testing (Primary Dx) [facility] Pre-Surgical Evaluation Comment on above: Preop testing (Primary Dx) Start: 06-15-2022 End: 06-15-2022 Patient encounter procedure 06/15/2022 Office Visit Ent-Otolaryngology Yi Moreno MD [address] [place] [address] [facility] Otolaryngology (ENT) Start: 06-03-2022 End: 06-03-2022 Admission to same day surgery center 06/03/2022 Surgery Ambulatory Surgery Yi Moreno MD [address] [place] [address] BRONCHOSCOPY, FLEXIBLE, DRUG INDUCED SLEEP ENDOSCOPY (DISE) [facility] Main OR PACU Comment on above: BRONCHOSCOPY, FLEXIBLE, DRUG INDUCED SLE EP ENDOSCOPY (DISE) Start: 06-03-2022 End: 06-03-2022 BRONCHOSCOPY, FLEXIBLE, DRUG INDUCED SLEEP ENDOSCOPY (DISE) BRONCHOSCOPY, FLEXIBLE, DRUG INDUCED SLEEP ENDOSCOPY (DISE) Routine scheduled DIONNE (obstructive sleep apnea) 06/03/2022 8:39 AM EDT PACU Procedure Rooms Start: 06-03-2022 Subsequent hospital visit by physician [facility] Main OR PACU Comment on above: Encounter for laboratory testing for sev ere acute respiratory syndrome coronavirus 2 (SARS-CoV-2) (Primary Dx) Start: 05-28-2022 End: 05-28-2022 Nursing evaluation of patient and report 05/28/2022 Nurse Visit Presurgical Evaluation [facility] Pre Surgical Evaluation Start: 05-22-2022 Influenza vaccination Influenza Vaccine (#1) [facility] Start: 04-22-2022 Influenza vaccination [facility] Start: 03-29-2022 End: 03-29-2022 Telemedicine consultation with patient 03/29/2022 Telemedicine Ent-Otolaryngology Yi Moreno MD [address] [place] [address] [facility] Otolaryngology (ENT) Start: 03-24-2022 FUV, Provider: Eileen Nichols, Status: Pen, Time: 3:50 PM FUV, Provider: Eileen Nichols, Status: Pen, Time: 3:50 PM [place] [address] DO Work Phone: Start: 03-22-2022 Influenza vaccination [facility] Start: 02-25-2022 End: 02-25-2022 Admission to same day surgery center 02/25/2022 Surgery General Surgery Yi Moreno MD [address] [place] [address] UVULOPALATOPHARYNGOPLASTY [facility] Main OR Comment on above: UVULOPALATOPHARYNGOPLASTY Start: 02-25-2022 Subsequent hospital visit by physician [facility] Main OR Comment on above: Encounter for laboratory testing for sev ere acute respiratory syndrome coronavirus 2 (SARS-CoV-2) (Primary Dx) Start: 02-25-2022 End: 02-25-2022 UVULOPALATOPHARYNGOPLASTY [facility] Start: 02-25-2022 End: 02-25-2022 Admission to same day surgery center 02/25/2022 Surgery General Surgery Yi Moreno MD [address] [place] [address] UVULOPALATOPHARYNGOPLASTY [facility] Main OR Comment on above: UVULOPALATOPHARYNGOPLASTY Start: 02-25-2022 Subsequent hospital visit by physician 02/25/2022 Hospital Encounter General Surgery Yi Moreno MD [address] [place] [address] Encounter for laboratory testing for severe acute respiratory syndrome coronavirus 2 (SARS-CoV-2) (Primary Dx) [facility] Main OR Comment on above: Encounter for laboratory testing for sev ere acute respiratory syndrome coronavirus 2 (SARS-CoV-2) (Primary Dx) Start: 02-25-2022 End: 02-25-2022 UVULOPALATOPHARYNGOPLASTY UVULOPALATOPHARYNGOPLASTY Routine scheduled DIONNE (obstructive sleep apnea) 02/25/2022 9:20 AM EDT [facility] Start: 02-23-2022 End: 02-23-2022 Patient encounter procedure 02/23/2022 Office Visit Urology Elin Ballard, GENERAL DENTIST - SELF CONTAINED BEHAVIOR UNIT TEACHER [address] [place] [address] [facility] Start: 02-16-2022 End: 02-16-2022 Patient encounter procedure 02/16/2022 Office Visit Presurgical Evaluation Pierce Ramos, GENERAL DENTIST-SELF CONTAINED BEHAVIOR UNIT TEACHER [address] [place] [address] [facility] Pre-Surgical Evaluation Start: 01-08-2022 End: 01-08-2022 Patient encounter procedure 01/08/2022 Office Visit Urology Elin Ballard, GENERAL DENTIST - SELF CONTAINED BEHAVIOR UNIT TEACHER [address] [place] [address] [facility] Start: 01-05-2022 End: 01-05-2022 Cysto/uretero w/lithotripsy &indwell stent insrt CYSTOSCOPY URETEROSCOPY LASER KID[facility] STONES 01/05/2022 2:57 PM EDT [facility] Start: 12-06-2021 COVID-19 Vaccine (3 - Booster for Pfizer series) COVID-19 Vaccine (3 - Booster for Pfizer series) [facility] Start: 12-01-2021 NURSEVST, Provider: AUSTIN WALL SCREEN MAKER 1,[id number], Status: Pen, Time: 3:15 PM NURSEVST, Provider: AUSTIN WALL SCREEN MAKER 1,[id number], Status: Pen, Time: 3:15 PM [place] [address] DO Work Phone: Start: 09-02-2021 COVID-19 Vaccine (3 - Booster for Pfizer series) COVID-19 Vaccine (3 - Booster for Pfizer series) [facility] Start: 2020 Cholesterol [Mass/volume] in Serum or Plasma Cholesterol [facility] Start: 2020 Screening for malignant neoplasm of colon [facility] Start: 2015 Lipid panel Lipids [facility] Start: 2015 Screening for malignant neoplasm of breast Mammography [facility] Start: 2010 Diabetes screen Diabetes screen [employer] Start: 2005 Screening for malignant neoplasm of cervix [employer] Start: 1996 Screening for malignant neoplasm of cervix Pap smear [facility] [employer] Start: 1994 DTaP/Tdap/Td vaccine (1 - Tdap) DTaP/Tdap/Td vaccine (1 - Tdap) [employer] Start: 1993 [facility]inine [facility] Start: 1993 Hepatitis C screening [facility] [employer] Start: 1993 Potassium [Moles/volume] in Serum or Plasma Potassium [facility] Start: 1993 Tetanus + diphtheria + acellular pertussis vaccine (product) Tdap Booster [facility] Start: 1990 HIV screening [employer] Start: 1987 Depression Monitoring [facility] Start: 1975 Screening for malignant neoplasm of colon Colonoscopy [facility] Assay of magnesium MAGNESIUM Lab STAT Daily until discontinued starting 07/16/2022, 2 completed [facility] Comment on above: Daily until discontinued starting [...] (DISE) Routine scheduled DIONNE (obstructive sleep apnea) [facility] Calprotectin [Mass/m ass] in Stool [facility] CBC panel - Blood by Automated count COMPLETE BLOOD COUNT Lab STAT Daily until discontinued starting 07/16/2022, 2 completed [employer] Work Phone: Comment on above: Daily until discontinued starting 2021, 2 completed End: 08-12-2022 Culture, Urine [employer] Work Phone: Comment on above: 1 Occurrences starting 08/12/2022 until 08/12/2022 End: 12-13-2022 Culture, Urine [facility] [employer] Work Phone: Comment on above: 1 Occurrences starting 12/13/2022 until 12/13/2022 Diagnostic radiograp hy of abdomen [facility] Diagnostic radiograp hy of abdomen [facility] End: 07-14-2022 Ecg routine ecg w/least 12 lds trcg only w/o i&r EKG 12 LEAD - PERFORM MUSE Routine Once for 1 Occurrences starting 07/14/2022 until 07/14/2022 [employer] Work Phone: Comment on above: Once for 1 Occurrences starting 07/14/20 until 07/14/2022 Elastase.pancreatic [Mass/mass] in Stool [facility] Endomysial antibody IgA level [facility] Gliadin peptide IgA Ab [Units/volume] in Serum [facility] Gliadin peptide IgG Ab [Units/volume] in Serum [facility] HIV 1+2 Ab+HIV1 p24 Ag [Presence] in Serum or Plasma by Immunoassay [facility] IgA [Mass/volume] in Serum or Plasma [facility] End: 01-05-2022 INITIATE PACU OXYGEN THERAPY PROTOCOL Initiate PACU Oxygen Therapy Protocol Respiratory Care Routine Continuous until discontinued starting 01/05/2022 [facility] Comment on above: Continuous until discontinued starting 0 01/05/2022 Oxygen therapy [[facility] Data Set] Initiate Oxygen Therapy Protocol Respiratory Care Routine As Needed until discontinued starting 01/05/2022 [facility] Work Phone: Comment on above: As Needed until discontinued starting End: 02-25-2022 Palatopharyngoplasty PALATOPHARYNGOPLASTY Procedures Routine One time for 1 Occurrences starting 02/25/2022 until 02/25/2022 [employer] Comment on above: One time for 1 Occurrences starting 02/2022 until 02/25/2022 Patient Education Hemorrhoids (DC) [facility] Work Phone: Rcnstj midface lefor t i 1 piece w/o bone graft RECONSTRUCTION MIDFACE, LEFORT I; 1 PIECE, W/O BONE GRAFT Procedures Routine DIONNE (obstructive sleep apnea) Ordered: 07/14/2022 [employer] Work Phone: Comment on above: Ordered: 07/14/2022 Rcnstj mndblr rami&/ bdy sgtl splt w/int rgd fi RECONSTRUCTION, MANDIBULAR RAMI &/OR BODY, SAGITTAL SPLIT; W/INT RIGID FIXATION Procedures Routine DIONNE (obstructive sleep apnea) Ordered: 07/14/2022 [employer] Comment on above: Ordered: 07/14/2022 End: 03-17-2022 SARS-CoV-2 (COVID-19) RNA [Presence] in Unspecified specimen by JOHNNIE with probe detection NOVEL CORONAVIRUS (COVID-19) Lab STAT Encounter for laboratory testing for severe acute respiratory syndrome coronavirus 2 (SARS-CoV-2) 1 Occurrences starting 02/15/2022 until 03/17/2022 [employer] Work Phone: Comment on above: 1 Occurrences starting 02/15/2022 until 03/17/2022 Surgical pathology procedure [employer] Work Phone: Comment on above: Release Upon Ordering for 1 Occurrences starting 02/25/2022, 1 completed Tissue transglutamin ase IgA Ab [Units/volume] in Serum [facility] Tissue transglutamin ase IgG Ab [Units/volume] in Serum [facility] UVULOPALATOPHARYNGOPLASTY UVULOP ALATOPHARYNGOPLASTY Routine scheduled DIONNE (obstructive sleep apnea) [facility] Immunizations Immunization Date Immunization Notes Care Provider Fa [facility] 07-08-2021 Pfizer-BioNTech COVID-19 Vacc 30 MCG/0.3ML Intramuscular Suspension Gena Kirby Work Phone: [facility] 06-17-2021 Pfizer-BioNTech COVID-19 Vacc 30 MCG/0.3ML Intramuscular Suspension Gena Kirby Work Phone: -[facility] [address] DO Work Phone: 06-27-2013 influenza virus vaccine, whole virus Gena Kirby Work Phone: -[facility] [address] DO Work Phone: Payers Date Payer Category Payer Unknown [id number] 2023 Self-pay [id number] 2023 Unknown [id number] 2021 Unknown 1975 Unknown [id number] 2.16.84 0.1.554135.3.579.2.593 1975 Unknown [id number] 2.16.84 0.1.340270.3.579.2.593 1975 Unknown [id number] 2.16.84 0.1.656083.3.579.2.593 1975 Unknown [id number] 2.16.84 0.1.349151.3.579.2.593 1975 Unknown [id number] 2.16.84 0.1.854798.3.579.2.593 1975 Unknown [id number] 2.16.84 0.1.500536.3.579.2.593 1975 Unknown [id number] 2.16.84 0.1.990065.3.579.2.593 1975 Unknown [id number] 2.16.84 0.1.083900.3.579.2.593 1975 Unknown [id number] 2.16.84 0.1.964261.3.579.2.593 1975 Unknown [id number] 2.16.84 0.1.279907.3.579.2.593 1975 Unknown [id number] 2.16.84 0.1.373107.3.579.2.593 1975 Unknown [id number] 2.16.84 0.1.499049.3.579.2.593 1975 Unknown [id number] 2.16.84 0.1.623148.3.579.2.593 1975 Unknown [id number] 2.16.84 0.1.967438.3.579.2.593 1975 Unknown [id number] 2.16. 840.1.643898.3.579.2.732 1975 Unknown [id number] 2.16. 840.1.217883.3.579.2.732 1975 Unknown [id number] 2.16. 840.1.927557.3.579.2.73 1975 Unknown [id number] 2.16. 840.1.486966.3.579.2.732 1975 Unknown [id number] 2.16 840.1.696864.3.579.2.732 1975 Unknown [id number] 2.16 840.1.939185.3.579.2.732 1975 Unknown [id number] 2.16. 840.1.886421.3.579.2.73 1975 Unknown [id number] 2.16. 840.1.244192.3.579.2.732 1975 Unknown [id number] 2.16. 840.1.189786.3.579.2.732 1975 Unknown [id number] 2.16. 840.1.722006.3.579.2.73 1975 Unknown [id number] 2.16. 840.1.170980.3.579.2.73 1975 Unknown [id number] 2.16. 840.1.264388.3.579.2.732 1975 Unknown [id number] 2.16. 840.1.260570.3.579.2.73 1975 Unknown [id number] 2.16. 840.1.992085.3.579.2.732 1975 Unknown [id number] 2.16.8 40.1.299569.3.579.2.173 1975 Unknown [id number] 2.16.8 40.1.208873.3.579.2.173 1975 Unknown [id number] 2.16.8 40.1.346055.3.579.2.173 1975 Unknown [id number] 2.16.8 40.1.882540.3.579.2.173 1975 Unknown [id number] 2.16.8 40.1.148856.3.579.2.173 1975 Unknown [id number] 2.16.8 40.1.278071.3.579.2.1286 1975 Unknown [id number] 2.16.8 40.1.677847.3.579.2.1286 1975 Unknown [id number] 2.16.8 40.1.475848.3.579.2.1286 1975 Unknown [id number] 2.16.84 0.1.357078.3.579.2.1286 1975 Unknown [id number] 2.16.84 0.1.786605.3.579.2.1259 1975 Unknown [id number] 2.16.84 0.1.390703.3.579.2.1259 1975 Unknown [id number] 2.16.840 .1.404076.3.579.2.1259 1975 Unknown [id number] 2.16.8 40.1.756924.3.579.2.598 1959 Unknown [id number] 1.2.840.492234.1.13.239.2.7.3.719422.31 5 1959 Unknown [id number] 1959 Unknown [id number] [place] [employer] [id number] Unknown [id number] 2.16.8 40.1.077113.3.579.2.531 Unknown [id number] 2.16.8 40.1.367546.3.579.2.531 Unknown [id number] 2.16.8 40.1.570114.3.579.2.531 Unknown [id number] 2.16.8 40.1.570135.3.579.2.531 Unknown [id number] 2.16.8 40.1.727566.3.579.2.531 Unknown [id number] 2.16.8 40.1.615432.3.579.2.531 Unknown [id number] 2.16.8 40.1.617315.3.579.2.531 Social History Date Type Detail Facility Start: 02-16-2022 End: 06-18-2022 Occasional alcohol use Occasional alcohol use -[facility] [employer] Work Phone: Comment on above: 2 bottles of pop alonso ly.; Quit 2019; Start: 11-30-2021 End: 08-08-2023 Tobacco smoking status RIIS Ex-smoker [employer] Phone: End: 01-20-2021 History of tobacco use Cigarette Smoker [employer] Phone: Start: 11-30-2021 End: 06-18-2022 Tobacco use and exposure Smokeless tobacco non-user [employer] Phone: Start: 12-22-2021 End: 12-13-2022 Alcohol intake Lifetime non-drinker (finding) [employer] Phone: Start: 11-30-2021 Tobacco Comment occasional smo ker for 2 years, she quit over a year now [employer] Phone: Start: 1975 Sex Assigned At Not on file [facility] Work Phone: Start: 01-05-2022 End: 12-13-2022 Tobacco Comment occasional smoker for 2 years, she quit in 2019 [employer] Phone: Start: 12-26-2021 End: 01-05-2022 Exposure to SARS-CoV-2 (event) Not sure [employer] Phone: Tobacco smoking stat [facility] Tobacco smoking consumption unknown [facility] Sex Assigned At [employer] Other Start: 02-16-2022 End: 10-19-2022 Alcohol intake Ex-drinker (finding) [facility] End: 01-20-2021 History of tobacco use Current smoker [facility] Start: 1975 Sex Assigned At Female F [facility] Start: 10-18-2022 History SDOH Social Connections Phone 4 [facility] Start: 10-18-2022 History SDOH Social Connections Get Together 2 [facility] Start: 10-18-2022 History SDOH Social Connections Orthodoxy 1 [facility] Start: 10-18-2022 History SDOH Social Connections Living 7 [facility] Start: 10-18-2022 History SDOH Physica l Activity DPW 0 [facility] Start: 10-17-2022 Education 12 [facility] Procedure Code Equipment Code Equipment Origin al Text Equipment Identifier Dates Stent Uret 6 Frx 24 Cm Firm Monofilament Tria - [id number] Start: 01-05-2022 Plate Bone 4mml [id number] Ea1 [id number] - [id number] Start: 07-14-2022 Screw 2.0 X 10mm Self-Tapping Pc1 50 - [id number] Start: 07-14-2022 Pin Cross 2.0 X 5mm Pc1 50 - [id number] Start: 07-14-2022 [place] 8mm Screw [id number] Start: 07-14-2022 Goals Date Patient Goal Desired Activity /State Functional Status Date Assessment Result Facility 10-14-2021 PHQ-9 [id number] Moder ately Severe (15-19) [facility] 250 DO Work Phone: Clinical Notes 11-09-2021 [...] improve even to the point of resolution, [employer] Other 12-[facility] Evaluation note* Encounter Date Diagnosis Assessment [...] COLONOSCOPY. Jun, Fecal urgency (ICD-10 - R15.2) [employer] Other 10-17-2023 Evaluation note* Encounter Date Diagnosis [...] (suspected) exposure to covid-19 (ICD-10 - Z20.822) [employer] Other 06-07-2023 Telephone encounter Note* Telephone Encounter - Rikki Rodrigues DMD, MD - 01/26/2023 10:18 AM EDT Called and left voicemail for patient. Post-op Home Sleep Test reviewed from [facility], and there is considerable improvement. Pre-op AHI [...] [facility] Work Phone: 1(469) 217-313206-07-2023 Miscellaneous Notes* Telephone Encounter - Rikki Rodrigues DMD, MD - 01/26/2023 10:18 AM EDT Called and left voicemail for patient. Post-op Home Sleep Test reviewed from [facility], and there is considerable improvement. Pre-op AHI [...] [facility] documented in this [id number] NoteOPERATIVE NOTE OPERATION DATE: 11/12/2022 PROCEDURE: Robotic assisted laparoscopic salpingectomy. PREOPERATIVE DIAGNOSIS: Multiparity, desires permanent sterilization. POSTOPERATIVE DIAGNOSIS: Multiparity, desires permanent sterilization. ANESTHESIA: General. SURGEON: Oswald Harrington D.O. KEG FILLER: VIRAJ Salazar URINE OUTPUT: Yellow and clear. [...] lap and needle counts were correct x2.[id number] Telephone encounter Note* Telephone Encounter - Tatiana Morris - 11/04/2022 3:51 PM EDT Opened in error [id number] Miscellaneous Notes* Telephone Encounter - Tatiana Morris - 11/04/2022 3:51 PM EDT Opened in error documented in this [id number] Telephone encounter Note* Telephone Encounter - Rikki Rodrigues DMD, MD - 11/01/2022 2:32 PM EDT Called patient and left voicemail. Advised that order for post-op PSG was faxed to [facility] [place]. Left number to call to schedule study at her convenience ([phone]) [facility] Work Phone: 1(495) 981-117903-13-2023 Miscellaneous Notes* Telephone Encounter - Rikki Rodrigues DMD, MD - 11/01/2022 2:32 PM EDT Called patient and left voicemail. Advised that order for post-op PSG was faxed to [facility] [place]. Left number to call to schedule study at her convenience ([phone]) documented in this [id number] History general Narrative - Reported* Type Description [...] counseling for depression, anxiety Hospitalization History dehydration [employer] Other 01-18-2023 History of Present illness Narrative* [...] -Complete sleep study with Dr. Mcmanus in [place], [place] in 1.5 months -Follow up with patient's general dentist, Sinan Jones DDS for denture adjustment Follow-Up: After new sleep study Follow up sooner with new or worsening symptoms. Sinan Jones DDS [place] [address] [address] [facility] [place] [address] Wiley Mcmanus MD [facility] [address] [place] [address] Seferino Vaz DMD [facility] Resident documented in this [id number] Instructions* Patient Instructions* Wilfredo Vang DMD - 08/30/2022 12:07 PM EST With clean hands massage gums under your upper lip daily at night time No food restrictions Follow up with your dentist We will contact your Sleep Center in [place] to have a Sleep Study completed in 1.5 months. documented in this [id number] Instructions* Patient Instructions* Wilfredo Vang DMD - 08/30/2022 12:07 PM EST With clean hands massage gums under your upper lip daily at night time No food restrictions Follow up with your dentist We will contact your Sleep Center in [place] to have a Sleep Study completed in 1.5 months. documented in this [id number] History of Present illness Narrative* Seferino Vaz [...] -Complete sleep study with Dr. Mcmanus in [place], [place] in 1.5 months -Follow up with patient's general dentist, Sinan Jones DDS for denture adjustment Follow-Up: PRN Follow up sooner with new or worsening symptoms. Sinan Jones DDS [address] [place] [address] Wiley Mcmanus MD [facility] [address] [place] [address] Seferino Ruby Vaz DMD [facility] Resident documented in this [id number] Telephone encounter Note* Telephone Encounter - Jerel [...] at this number. Jerel Villegas DDS, MD [facility]- PGY4 [phone] [employer] Work Phone: [phone] Miscellaneous Notes* Telephone Encounter - Jerel Villegas [...] at this number. Jerel Villegas DDS, MD [facility]- PGY4 [phone] documented in this [id number] Telephone encounter Note* Telephone Encounter - Oliver Rogers DMD - 08/02/2022 4:26 PM EST Called pt. No answer. LVM with callback instructions. Per Dr. Rodrigues, we will not write any work excuse notes or prescribe any pain meds until pt is seenin person for follow up. Oliver Rogers DMD [employer] Work Phone: [phone] Miscellaneous Notes* Telephone Encounter - Oliver Rogers [...] options if that is the case. Email: [email or web address] Contact pt @[phone] for questions/concerns documented in this [id number] Telephone encounter Note* Telephone Encounter - Zayda [...] options if that is the case. Email: [email or web address] Contact pt @[phone] for questions/concerns [id number] Telephone encounter Note* Telephone Encounter - Mikal [...] Oral & Maxillofacial Surgery, PGY-3 Team Pager: [phone] [facility] Work Phone: [phone] Miscellaneous Notes* Telephone Encounter - Mikal Rodgers [...] Oral & Maxillofacial Surgery, PGY-3 Team Pager: [phone] documented in this [id number] History of Present illness Narrative* Mikal Rodgers [...] Oral & Maxillofacial Surgery, PGY-3 Team Pager: [phone] documented in this [id number] History of Present illness Narrative* Saleem Mi DMD - 07/19/2022 8:28 AM EST Images from the original note were not included. Initial pre-surgical workup photos: documented in this [id number] Note* Care Plan Note - Penny Brown RN - 07/17/2022 12:33 PM EST Problem: Discharge Planning: Goal: Discharge needs of the adult patient will be met 07/17/2022 1233 by Penny Brown RN Outcome: Completed 07/17/2022 0743 by Penny Brown, JUDSON Outcome: Progressing Discharge instructions provided to patient with paper scripts and tylenol MEDS to beds. No questions about instructions or medications at this time. IV removed and intact upon removal. Additional home care supplies provided. Patient discharged home with family member. [id number] Miscellaneous Notes* Care Plan Note - Penny [...] Outcome: Progressing * Care Plan Note - aLuren Crawford RN - 07/15/2022 12:34 PM EST [...] EST Brief Operative Note MAIN OR 12 Isaeblle Hewitt 47 year old female Surgical Contact Serial Number: [id number] Preoperative Diagnosis: DIONNE (obstructive sleep apnea) [G47.33] Postoperative Diagnosis: * DIONNE (obstructive sleep apnea) [G47.33] Procedures: Surgical CPTs Procedures RECONSTRUCTION MIDFACE, LEFORT I; 1 PIECE, W/O BONE GRAFT RECONSTRUCTION, MANDIBULAR RAMI &/OR BODY, SAGITTAL SPLIT; W/INT RIGID FIXATION No data filed Surgeon(s): Surgeon(s): Rikki Rodrigues DMD, MD Staff: Scrub: Annelise Saeed RN; Babs Wells RN Diesel Powerplant Mechanic Helper Nurse: Stephanie Brannon RN; Babs Wells RN Sheep Sorter: Margot Ovalles DDS; Saleem Mi DMD Anesthesia: [...] were discussed with the patient and/or legal product support representative. The risks, benefits and alternatives were reviewed. Questions regarding blood transfusions were answered. The patient /or the patient s legal product support representative agree with the plan for transfusion of blood and/or blood components. * Anesthesia Attestation - Ki Atwood MD - 07/14/2022 7:06 AM EST Anesthesia Attestation ATTESTATION OF INFORMED CONSENT FOR ANESTHESIA Anesthesia options were discussed with the patient and/or legal product support representative. The risks, benefits and alternatives were reviewed. Questions regarding anesthesia were answered. Patient and/or legal product support representative knows such anesthetics and procedures may be performed by Resident physicians, Certified Anesthesiologist Assistants, or Certified Nurse Anesthetists under the supervision of a physician. The patient /or the patient s legal representativeagree with the plan for anesthesia. documented in this [id number] NoteDISCHARGE SUMMARY [place] [id number] Isabelle Hewitt Date of : 1975 47 [...] 07/23/2022 2:30 PM Rikki Rodrigues DMD, MD [facility] 10/19/2022 8:45 AM Yi Moreno MD [facility] ENT [facility] Click the Form Tab Reason for Hospitalization [...] of concern and please page the resident occupational therapy co director Do not blow your nose for 2 [...] can. 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 MEDICATIONS Pain medication should be [...] of concern and please page the resident occupational therapy co director Do not blow your nose for 2 [...] weeks until the bones heal QUESTIONS/CONCERNS Call induction machine setter Office [phone] documented in this [id number] History of Present illness Narrative* Wilfredo Vang [...] oxymetazoline (AFRIN) 0.05 % nasal solution 2 [place] Nasal Q4H PRN sodium chloride (OCEAN) 0.65 % nasal spray 1 [place] Nasal Q1H PRN naloxone (NARCAN) 0.4 MG/ML [...] to be discharged to follow up with [facility] clinic. * Lola Wyatt RN - 07/16/2022 [...] oxymetazoline (AFRIN) 0.05 % nasal solution, 2 [place], Nasal, Q4H PRN, Oliver Rogers DMD sodium chloride (OCEAN) 0.65 % nasal spray, 1 [place], Nasal, Q1H PRN, Oliver Rogers DMD naloxone [...] (TENORMIN) tablet, 100 mg, Oral, Daily, Oliver Rgoers, CHAU atorvastatin (LIPITOR) tablet, 20 mg, Oral, Daily, [...] oxymetazoline (AFRIN) 0.05 % nasal solution, 2 [place], Nasal, Q4H PRN, Oliver Rogers DMD sodium chloride (OCEAN) 0.65 % nasal spray, 1 [place], Nasal, Q1H PRN, Oliver Rogers DMD enoxaparin [...] discussed. Zehra Stearns MD documented in this [id number] Note* Care Plan Note - Penny Brown [...] adult patient will be met Outcome: Progressing [id number] Note* Care Plan Note - Lauren Crawford [...] adult patient will be met Outcome: Progressing PfqinEcbvyy47-11-1670 Note* Care Plan Note - Alon Cotton [...] monitoring. Patient free of falls/injuries during shift. [id number] History and physical note* Zehra Stearns MD - 07/14/2022 3:58 PM EST Images from the original note were not included. Surgical ICU H&P Isabelle Hewitt [id number] HPI: Ms Hewitt is a 47 year [...] Clifford Cruz MD PGY-5 Radiology SICU Pager [phone] [facility] Surgery Pager [phone], Weekdays 6a-6p [place] Pager -[phone], Weekdays 6p-6a, weekends Attending Attestation I saw [...] stepdown for airway monitoring. Zehra Stearns MD [id number] History and physical note* Zehra Stearns MD - 07/14/2022 3:58 PM EST Images from the original note were not included. Surgical ICU H&P Isabelle Hewitt [id number] HPI: Ms Hewitt is a 47 year [...] Clifford Cruz MD PGY-5 Radiology SICU Pager -[phone] [facility] Surgery Pager -[phone], Weekdays 6a-6p [place] Pager -[phone], days 6p-6a, weekends Attending Attestation I saw and [...] Yes Saleem Mi DDS documented in this [id number] NoteSurgical Attestation: I have reviewed the patient's History and Physical Examination. I have personally seen and evaluated the patient, repeating ulloa portions. There is no significant interval change. Surgery is still indicated. Yes Consent reviewed and signed by patient/family: Yes Operative site verified: Yes [facility] [id number] Note* Brief Operative Note - Rikki Rodrigues DMD, MD - 07/14/2022 8:30 AM EST Brief Operative Note MAIN OR 12 Isabelle Hewitt 47 year old female Surgical Contact Serial Number: [id number] Preoperative Diagnosis: DIONNE (obstructive sleep apnea) [G47.33] Postoperative Diagnosis: * DIONNE (obstructive sleep apnea) [G47.33] Procedures: Surgical CPTs Procedures RECONSTRUCTION MIDFACE, LEFORT I; 1 PIECE, W/O BONE GRAFT RECONSTRUCTION, MANDIBULAR RAMI &/OR BODY, SAGITTAL SPLIT; W/INT RIGID FIXATION No data filed Surgeon(s): Surgeon(s): Rikki Rodrigues DMD, MD Staff: Scrub: Annelise Saeed, JUDSON; Babs Wells RN Diesel Powerplant Mechanic Helper Nurse: Stephanie Brannon RN; Babs Wells RN Sheep Sorter: Margot Ovalles DDS; Saleem Mi DMD Anesthesia: [...] Rikki Rodrigues DMD, MD 07/14/2022 12:58 PM [employer] Work Phone: [phone] 201-498611-23-2022 History and physical note* Saleem Mi DMD - 07/14/2022 7:13 AM EST Surgical Attestation: I have reviewed the patient's History and Physical Examination. I have personally seen and evaluated the patient, repeating ulloa portions. There is no significant interval change. Surgery is still indicated. Yes Consent reviewed and signed by patient/family: Yes Operative site verified: Yes Saleem Mi DDS [employer] Work Phone: [phone]) 251-872811-23-2022 Note* Blood Attestation - Ki Atwood MD - 07/14/2022 7:06 AM EST Blood Attestation ATTESTATION OF INFORMED CONSENT FOR BLOOD The transfusion of blood and/or blood components were discussed with the patient and/or legal product support representative. The risks, benefits and alternatives were reviewed. Questions regarding blood transfusions were answered. The patient /or the patient s legal product support representative agree with the plan for transfusion of blood and/or blood components. [employer] Work Phone: [phone] 358-335711-23-2022 Note* Anesthesia Attestation - Ki Atwood MD - 07/14/2022 7:06 AM EST Anesthesia Attestation ATTESTATION OF INFORMED CONSENT FOR ANESTHESIA Anesthesia options were discussed with the patient and/or legal product support representative. The risks, benefits and alternatives were reviewed. Questions regarding anesthesia were answered. Patient and/or legal product support representative knows such anesthetics and procedures may be performed by Resident physicians, Certified Anesthesiologist Assistants, or Certified Nurse Anesthetists under the supervision of a physician. The patient /or the patient s legal representativeagree with the plan for anesthesia. [id number] Telephone encounter Note* Telephone Encounter - Latoya Manzo RN - 07/09/2022 3:43 PM EST 1541: Contacted pt and informed her to call the ENT office to schedule appt with Dr Moreno s/p jaw surgery in about 3 months due to healing time. Pt verbalized understanding. Latoya Manzo RN OivuvAvrish30-24-1608 Miscellaneous Notes* Telephone Encounter - Latoya Manzo [...] step is for after the surgery. PT: [phone] Gus Luz documented in this [id number] Telephone encounter Note* Telephone Encounter - Nicole Diaz - 07/09/2022 2:[address] Joel, Patient calling stating that she is going forward with the jaw surgery that you recommended next 07/14/22. Patient would like to know what the next step is for after the surgery. PT: [phone] Gus Luz [facility] Work Phone: [phone] 710-810911-17-2022 Instructions* Patient Instructions* Gena Holbrook APRN-CNP - [...] for pain Please hold all Vitamin E, [place] 3, fish oil and herbal supplements for 1 week prior to surgery documented in this [id number] Note* PSE Appt H&P - Edwina Daniel - 07/08/2022 1:59 PM EST Patient was identified by name and date of . Edwina Daniel Bill of rights provided to patient [id number] Miscellaneous Notes* PSE Appt H&P - Edwina Daniel - 07/08/2022 1:59 PM EST Patient was identified by name and date of . Edwina Daniel Bill of rights provided to patient * PSE Appt H&P - Gena Holbrook APRN-CNP - 07/07/2022 4:03 PM EST Presurgical Evaluation Isabelle Hewitt, [id number] 47 year old Female 07/08/2022 BP 122/80 [...] Yes Does not use CPAP PS12/17/2021 at [facility] RESPIRATORY DATA INTEGRITY: Respiratory data integrity was [...] Arredondo 4:25 PM 07/08/2022 documented in this [id number] NotePresurgical Evaluation Isabelle Hewitt, [id number] 47 year old Female 07/08/2022 BP 122/80 [...] Yes Does not use CPAP PS12/17/2021 at [facility] RESPIRATORY DATA INTEGRITY: Respiratory data integrity was [...] grossly intact Psychia (more content not included)...The [facility] [id number] Note* PSE Appt H&P - Gena Holbrook APRN-BRIAN - 07/07/2022 4:03 PM EST Presurgical Evaluation Isabelle Hewitt, [id number] 47 year old Female 07/08/2022 BP 122/80 [...] Yes Does not use CPAP PS12/17/2021 at [facility] RESPIRATORY DATA INTEGRITY: Respiratory data integrity was [...] Interviewer signature: ARTURO Arredondo 4:25 PM 07/08/2022 [id number] NotePatient is vaccinated for COVID-19. Vaccinations are documented in Epic. Patient does not require pre-op COVID testing per current guidelines.[facility] Fuwuyq85-07-7223 Telephone encounter Note* Telephone Encounter - Mary Dennis RN - 07/05/2022 8:53 PM EST Patient is vaccinated for COVID-19. Vaccinations are documented in Epic. Patient does not require pre-op COVID testing per current guidelines. [id number] Miscellaneous Notes* Telephone Encounter - Mary Dennis RN - 07/05/2022 8:53 PM EST Patient is vaccinated for COVID-19. Vaccinations are documented in Epic. Patient does not require pre-op COVID testing per current guidelines. documented in this [id number] Note* PSE Appt H&P - Pierce Ramos APRN-CNP - 07/05/2022 12:06 PM EST Error [facility] Work Phone: [phone] Miscellaneous Notes* PSE Appt H&P - Pierce Ramos APRN-CNP - 07/05/2022 12:06 PM EST Error documented in this [id number] History of Present illness Narrative* Seferino Vaz DMD - 07/02/2022 11:00 AM EST ORAL SURGERY CLINIC FOLLOW UP VISIT Patient was seen in the [facility] clinic for alginate impressions of the edentulous maxilla and CBCT with denture in place. Seferino Vaz DMD [facility] Resident msBrad documented in this [id number] History of Present illness Narrative* Rikki Rodrigues DMD, - 06/18/2022 4:17 PM EDT Images from the original note were not included. OMFS PATIENT VISIT CHIEF COMPLAINT: sleep apnea HISTORY OF PRESENT ILLNESS: Patient presents for evaluation for surgical treatment of DIONNE. She is extremely symptomatic from her DIONNE, and suffers from CPAP intolerance. [place] sleepiness scale is 18. Patient is starting [...] norms. Retrognathic mandible. DIAGNOSIS: Obstructive sleep apnea [554382] TREATMENT: Exam, Panorex evaluated, and pictures/models taken [...] Rikki Rodrigues DMD, MD documented in this [id number] History of Present illness Narrative* Margot Ovalles, DDRuby - 06/18/2022 4:17 PM EDT Images from the original note were not included. OMFS PATIENT VISIT CHIEF COMPLAINT: sleep apnea HISTORY OF PRESENT ILLNESS: Patient presents for evaluation for surgical treatment of DIONNE. She is extremely symptomatic from her DIONNE, and suffers from CPAP intolerance. Hitch[place] sleepiness scale is 18. Patient is starting [...] on 06/18/2022, and Digital version in [employer]istry [employer] system. Airway measurements are very small compared to norms. Retrognathic mandible. DIAGNOSIS: Obstructive sleep apnea [997760] TREATMENT: Exam, Panorex evaluated, and pictures/models taken [...] Rikki Rodrigues DMD, MD documented in this [id number] Instructions* Patient Instructions* Rikki Rodrigues DMD, MD [...] fatigue and inconsistent sleep. documented in this [id number] NoteSurgical Attestation: I have reviewed the patient's History and Physical Examination. I have personally seen and evaluated the patient, repeating ulloa portions. There is no significant interval change. Surgery is still indicated. Yes Consent reviewed and signed by patient/family: Yes Operative site verified and marked: site verified but not marked as not anatomically possible Ryann Brown PA-C 06/03/2022 11:55 AMThe [facility] [id number] Evaluation note* Encounter Date Diagnosis Assessment Notes Treatment Notes Treatment Clinical Notes May, Encounter for screening for other viral diseases (ICD-10 - Z11.59) [employer] Other 10-07-2022 Note* PSE Call H&P - Rose Brown RN - 05/28/2022 9:42 AM EDT Images from the original note were not included. Telephone History Isabelle Hewitt, [id number] 05/28/2022 47 year old 190 lbs 5' [...] pain. Do not take any Vitamin E, [place] 3, fish oils, herbal medications 7 days [...] Spent Performing this Telephone History: 30 minutes FaydoAcsovv74-07-7380 Miscellaneous Notes* PSE Call H&P - Rose Brown RN - 05/28/2022 9:42 AM EDT Images from the original note were not included. Telephone History Isabelle Hewitt, [id number] 05/28/2022 47 year old 190 lbs 5' 2 Patient identified by name and date of Height and weight reported by patient Date of Surgery: 06/03/2022 Surgeon: Dr Moreno Type of Surgery: DISE HISTORY OF PRESENT ILLNESS: PSE telephone history conducted with pt for surgery with Dr Moreno, PACU Dr Morneo 03/29/2022 HPI: History of obstructive sleep apnea, [...] pain. Do not take any Vitamin E, [place] 3, fish oils, herbal medications 7 days [...] Telephone History: 30 minutes documented in this [id number] Telephone encounter Note* Telephone Encounter - Mary Dennis RN - 05/28/2022 8:15 AM EDT Patient is scheduled for DISE on 06/03/2022. Prefers to complete pre-op COVID testing closer to home. Instructed to obtain testing 48-72 hours prior to surgery and bring copy of results on day of surgery. PSE contact information provided. [id number] Miscellaneous Notes* Telephone Encounter - Mary Dennis RN - 05/28/2022 8:15 AM EDT Patient is scheduled for DISE on 06/03/2022. Prefers to complete pre-op COVID testing closer to home. Instructed to obtain testing 48-72 hours prior to surgery and bring copy of results on day of surgery. PSE contact information provided. documented in this [id number] Telephone encounter Note* Telephone Encounter - Mary Dennis RN - 05/26/2022 9:16 PM EDT Arrangements to be made for pre-op COVID testing per ENT request. [id number] Miscellaneous Notes* Telephone Encounter - Mary Dennis RN - 05/26/2022 9:16 PM EDT Arrangements to be made for pre-op COVID testing per ENT request. documented in this [id number] Note* Addendum Note - Yi Moreno MD - 05/26/2022 5:25 PM EDTAddended by: YI MORENO on: 05/26/2022 05:25 PM Modules accepted: Orders [id number] Miscellaneous Notes* Addendum Note - Yi Moreno MD - 05/26/2022 5:25 PM EDTAddended by: YI MORENO on: 05/26/2022 05:25 PM Modules accepted: Orders documented in this [id number] History of Present illness Narrative* Yi Moreno MD - 03/29/2022 2:41 PM EDT Images from the original note were not included. .Documentation: Mode: Telephone Patient Home Phone: Patient Patient Cell Preferred phone: [phone] Consent: I confirmed patient understanding of the [...] on prior sleep endoscopy documented in this [id number] History of Present illness Narrative* Yi Moreno MD - 03/29/2022 2:41 PM EDT Images from the original note were not included. .Documentation: Mode: Telephone Patient Home Phone: Patient Patient Cell Preferred phone: [phone] Consent: I confirmed patient understanding of the [...] on prior sleep endoscopy documented in this [id number] Telephone encounter Note* Telephone Encounter - Tatiana [...] to turn it in is 03/19/22. PH#: [phone] JlerfNnxvca22-02-7735 Miscellaneous Notes* Telephone Encounter - Tatiana Morris [...] to turn it in is 03/19/22. PH#: [phone] documented in this [id number] Note* Care Plan Note - Iglesia Amin [...] will be met Outcome: Adequate for Discharge EzlnvHbjomw43-73-1969 Miscellaneous Notes* Care Plan Note - Iglesia [...] year old female Surgical Contact Serial Number: [id number] Preoperative Diagnosis: DIONNE (obstructive sleep apnea) [G47.33] Postoperative Diagnosis: * DIONNE (obstructive sleep apnea) [G47.33] Procedures: Surgical CPTs Procedures PALATOPHARYNGOPLASTY No data filed Surgeon(s): Surgeon(s): Yi Moreno MD Staff: Scrub: Wiley Álvarez Diesel Powerplant Mechanic Helper Nurse: Mariaa Briseno; Dulce Allred; Babs Wells RN Sheep Sorter: Yi Piña MD; Unruly Biggs MD Anesthesia: Consult Anesthesiologist: Maite Youssef MD CAA: Mariaa Meneses CAA CHIROPRACTIC TEACHER: Cari Hurtado APRN-CRNA Supervisor Properties: Carol Barrera MD Anesthesia Student: Prema Norris [...] Moreno MD - 02/25/2022 10:00 AM EDT [id number] Isabelle Hewitt 1975 @PATJessieNAMJacob@ @PATIENTLASTNAMJacob@ [phone] Preoperative diagnosis: 1. Obstructive sleep apnea 2. [...] were discussed with the patient and/or legal product support representative. The risks, benefits and alternatives were reviewed. Questions regarding anesthesia were answered. Patient and/or legal product support representative knows such anesthetics and procedures may [...] were discussed with the patient and/or legal product support representative. The risks, benefits and alternatives were reviewed. Questions regarding blood transfusions were answered. The patient /or the patient s legal product support representative agree with the plan for transfusion of blood and/or blood components. documented in this [id number] NoteOTOLARYNGOLOGY HEAD AND NECK SURGERY DAILY PROGRESS [...] and perioperative course uncomplicated. Patient transferred to [facility] from PACU. Mild anxiety overnight. No desaturations and pain overall well controlled. Patient on 2L NC when seen in the AM - Wean nc as tolerated - Monitor PO - Restart home meds - Discharge home today as appropriate ENT [id number] Exzhuz53-52-3525 Note* Care Plan Note - Martínez Johnson [...] the patient will be met Outcome: Progressing TjwtmPttqqs28-33-6301 NoteDISCHARGE SUMMARY [address] [address] Isabelle Hewitt Date of : 1975 46 [...] Your Medications These medications were sent to [facility] - [place], [place] - [address] [place] [address] acetaminophen 650 MG CR tablet methylPREDNISolone 4 [...] documented in the resident's note. Wiley Lancaster [facility] Discharge instructions* Discharge Instructions* Unruly [...] shared with your regular doctor. Isabelle Hewitt [address] [place] [address] Phone numbers Date of Procedure: 02/25/22 Physicians: Dr. Yi Moreno (ENT) Admission Date: 02/25/2022 7:49 AM Discharge Date: No discharge date for patient encounter. Disposition: Home Home Care Agency: none Procedure that was performed: Uvulopalatopharyngoplasty (UPPP) Pending results: No pathology specimen was sent Call [phone] during regular daytime business hours (8:00 am - 5:00 pm) and after 5:00 pm call [phone] and ask to speak with the ENT Resident Rabbler with any questions or concerns. If it is a life-threatening situation, proceed to the nearest emergency department. Your Follow-up Appointment(s) Future Appointments Date Time Provider Department Center 03/29/2022 3:15 PM Yi Moreno MD [facility] Location: [facility] [place] [address] [place] [phone] ([phone]) Thank you for the opportunity to care [...] a stool softener, they may be purchased tifm-ylt-dztcbef at any local drugstore. Signs of Infection Signs of infection can include fever, excessive swelling, heat, drainage, redness, or severe pain. If you see any of these occur, please contact your doctor's office at [phone]. Any fever higherthan 100.4, especially if associated [...] opioids can be used to help relieve edvjwdrf-ov-nibdih pain and are often prescribed following a [...] or Mental Health Mobile Crisis Help Line [phone] Narcotics Anonymous Center for Disease Control and Prevention www.cdc.gov 211 First Call For Help (14/03) -1- from phone OR [employer] Prevention Each year, 1 in every 3 adults over the age of 65 are treated for fall-related injuries. The risk of falling increases with each decade of life. The good news is, many falls are preventable. Here are some fall prevention tips: Exercise can increase strength and improve balance, making falls much less likely. For more informati on visit: http://[facility].org/services/oruf-wuuoip-gv-your-health/a-matte d-hq-plapghk/ Some medications or combinations of medications can [...] Written by the doctors and editors at [facility] What are the benefits of exercise? [...] of movement, like short walks or doing clinical research monitor, can help improve your health. What else [...] process is complete. This topic retrieved from [employer] on: Mar 19, 2020. Topic 34420 Version 20.0 Release: 28.4.6 - C28.294 2019 [employer] and/or its affiliates. All rights reserved. Consumer [...] that is right for you.The use of [employer] content is governed by the [employer] Terms of Use. 2020 [employer]. All rights reserved. Copyright 2020 [employer] and/or its affiliates. All rights reserved. Reviewed April 2020 documented in this [id number] Note* Care Plan Note - Ashvin Mims [...] the patient will be met Outcome: Progressing [id number] NoteAddendum created 02/25/22 1219 by Mariaa Meneses CAA Intraprocedure Staff editedThe [facility] History of Present illness Narrative* Ailyn Son [...] no areas of redness. documented in this [id number] NoteSurgical Attestation: I have reviewed the patient's History and Physical Examination. I have personally seen and evaluated the patient, repeating ulloa portions. There is no significant interval change. Surgery is still indicated. Yes Consent reviewed and signed by patient/family: Yes Operative site verified and marked: Yes Yi Moreno MD 02/25/2022 8:56 AMThe [facility]07-[facility] Note* Brief Operative Note - Yi Moreno MD - 02/25/2022 10:00 AM EDT Brief Operative Note MAIN OR 11 Isabelle Hewitt 46 year old female Surgical Contact Serial Number: [id number] Preoperative Diagnosis: DIONNE (obstructive sleep apnea) [G47.33] Postoperative Diagnosis: * DIONNE (obstructive sleep apnea) [G47.33] Procedures: Surgical CPTs Procedures PALATOPHARYNGOPLASTY No data filed Surgeon(s): Surgeon(s): Yi Moreno MD Staff: Scrub: Wiley Álvarez Diesel Powerplant Mechanic Helper Nurse: Mariaa Briseno; Dulce Allred; Babs Wells RN Sheep Sorter: Yi Piña MD; Unruly Biggs MD Anesthesia: Consult Anesthesiologist: Maite Youssef MD CAA: Mariaa Meneses CAA CHIROPRACTIC TEACHER: Cari Hurtado APRN-CRNA Supervisor Properties: Carol Barrera MD Anesthesia Student: Prema Norris [...] by Yi Moreno MD 02/25/2022 10:40 AM [id number] Note* OP Note - Yi Moreno MD - 02/25/2022 10:00 AM EDT [id number] Isabelle Hewitt 1975 @PATFNAMJacob@ @PATIENTLASTNAMJacob@ [phone] Preoperative diagnosis: 1. Obstructive sleep apnea 2. [...] taken back to recovery in stable condition. [id number] History and physical note* Yi Moreno MD [...] Yes Yi Moreno MD 02/25/2022 8:56 AM [id number] History and physical note* Yi Moreno MD [...] MD 02/25/2022 8:56 AM documented in this [id number] Note* Anesthesia Attestation - Maite Youssef MD - 02/25/2022 8:52 AM EDT Anesthesia Attestation ATTESTATION OF INFORMED CONSENT FOR ANESTHESIA Anesthesia options were discussed with the patient and/or legal product support representative. The risks, benefits and alternatives were reviewed. Questions regarding anesthesia were answered. Patient and/or legal product support representative knows such anesthetics and procedures may be performed by Resident physicians, Certified Anesthesiologist Assistants, or Certified Nurse Anesthetists under the supervision of a physician. The patient /or the patient s legal representativeagree with the plan for anesthesia. [employer] Work Phone: 1(406) 932-169107-07-2022 Note* Blood Attestation - Maite Youssef MD - 02/25/2022 8:52 AM EDT Blood Attestation ATTESTATION OF INFORMED CONSENT FOR BLOOD The transfusion of blood and/or blood components were discussed with the patient and/or legal product support representative. The risks, benefits and alternatives were reviewed. Questions regarding blood transfusions were answered. The patient /or the patient s legal product support representative agree with the plan for transfusion of blood and/or blood components. [id number] Telephone encounter Note* Telephone Encounter - Mary Dennis RN - 02/24/2022 7:19 AM EDT PSE received pre-op COVID test results - NOT DETECTED on 02/23/2022. Document scanned into [employer]. [id number] Miscellaneous Notes* Telephone Encounter - Mary Dennis RN - 02/24/2022 7:19 AM EDT PSE received pre-op COVID test results - NOT DETECTED on 02/23/2022. Document scanned into [employer]. documented in this [id number] Telephone encounter Note* Telephone Encounter - Mary Dennis RN - 02/17/2022 2:52 PM EDT Patient is scheduled for surgery 02/25/2022. Prefers to complete pre-op COVID testing closer to home.Instructed to obtain testing 48-72 hours prior to surgery and bring copy of results on day of surgery. PSE contact information provided, order faxed to [facility] per patient request. [id number] Miscellaneous Notes* Telephone Encounter - Mary Dennis RN - 02/17/2022 2:52 PM EDT Patient is scheduled for surgery 02/25/2022. Prefers to complete pre-op COVID testing closer to home.Instructed to obtain testing 48-72 hours prior to surgery and bring copy of results on day of surgery. PSE contact information provided, order faxed to [facility] per patient request. documented in this [id number] Instructions* Patient Instructions* Pierce Ramos APRN-CNP - [...] for pain Please hold all Vitamin E, [place] 3, fish oil and herbal supplements for 1 week prior to surgery documented in this [id number] Note* PSE Appt H&P - Quinton Manzo - 02/16/2022 2:19 PM EDT Patient was identified by name and date of . Quinton Manzo Bill of rights provided to patient [id number] Miscellaneous Notes* PSE Appt H&P - Quinton Manzo - 02/16/2022 2:19 PM EDT Patient was identified by name and date of . Quinton Manzo Bill of rights provided to patient * PSE Appt H&P - HankfatouPierce banks APRN-SELF CONTAINED BEHAVIOR UNIT TEACHER - 02/15/2022 2:46 PM EDT Presurgical Evaluation Isabelle Hewitt, [id number] 46 year old Female 02/17/2022 VITAL SIGNS: [...] Yes Does not use CPAP PS12/17/2021 at [facility] RESPIRATORY DATA INTEGRITY: Respiratory data integrity was [...] (LIPITOR) 20 mg tablet EKG 12-LEAD TRACING [18025] PLAN: Documentation complete. Labs, Images, and Medications reviewed, and patient questions answered. Interviewer signature: ARTURO Rankin 8:00 AM 02/17/2022 documented in this [id number] NotePresurgical Evaluation Isabelle Hewitt, [id number] 46 year old Female 02/17/2022 VITAL SIGNS: [...] last six months. No STOP-BANG Row Name 06/28/22 1421 History of sleep apnea? Yes Does not use CPAP PS12/17/2021 at [facility] RESPIRATORY DATA INTEGRITY: Respiratory data integrity was [...] No result fo (more content not included)...The [employer] [id number] Note * PSE Appt H&P - Pierce Ramos APRN-BRIAN - 02/15/2022 2:46 PM EDT Presurgical Evaluation Isabelle Xenia, [id number] 46 year old Female 02/17/2022 VITAL SIGNS: [...] Yes Does not use CPAP PS12/17/2021 at [facility] RESPIRATORY DATA INTEGRITY: Respiratory data integrity was [...] (LIPITOR) 20 mg tablet EKG 12-LEAD TRACING [45507] PLAN: Documentation complete. Labs, Images, and Medications reviewed, and patient questions answered. Interviewer signature: ARTURO Rankin 8:00 AM 02/17/2022 [id number] Telephone encounter Note* Telephone Encounter - Mary Dennis RN - 02/11/2022 3:52 PM EDT Arrangements to be made for pre-op COVID testing per ENT request. [id number] Miscellaneous Notes* Telephone Encounter - Mary Dennis RN - 02/11/2022 3:52 PM EDT Arrangements to be made for pre-op COVID testing per ENT request. documented in this [id number] History of Present illness Narrative* Yi Moreno [...] indicating an AHI of 63 with an J3sqzwd of 64% Sleep position: Side Mouth breather:y yeses previous sleep surgeries: no Other sleep disorders, such as insomnia/ kataplexy/ narcolepsy: yes, on andoff Bruxism: no tried oral appliance:edenetulous Questionnaires: Hitchita sleep scale score: 18 FOSQ-10: HADS No [...] middle ear was aerated bilaterally. Clinical speech field artillery basic thresholds grossly intact. No lesions/mass of auricles. [...] surgery. Patient's procedure will be done at [facility]. This is a difficult airway in terms [...] transfusion as discussed preoperatively. documented in this [id number] History of Present illness Narrative* Randa Yanes [...] or not. Verbalizes understanding. documented in this [facility] [employer] Work Phone: 1(526) 706-422605-17-2022 Hospital Discharge instructions* Instructions* Ade Easton RN [...] flush the urinary tract.) Call Dr. Hirsch ([phone]) if you develop: Fever over 100 degrees [...] Call Dr. Hirsch office for follow-up appointment ([phone]). documented in this [facility] Work Phone: 1(541) 258-857103-21-2022 Evaluation note* Encounter Date Diagnosis Assessment Notes [...] changes in symptoms and/or problems with treatment [employer] Other Chief complaint Narrative - ReportedISABELLE HEWITT is being seen for a consultation for abnormal test(s) results.-[facility] [employer] Work Phone: Evaluation note* Diagnosis Kidney stones Calculus of kidney documented in this encounter [employer] Phone: evaluation note* Diagnosis Pre-op testing Preoperative examination, unspecified documented in this encounter [employer] Phone: evaluation note* Diagnosis Ureteral calculus- Primary Calculus of ureter documented in this encounter [employer] Phone: evaluation note* Diagnosis DIONNE (obstructive sleep apnea)- Primary Obstructive sleep apnea (adult) (pediatric) Body mass index (BMI) 34.0-34.9, adult documented in this encounter [facility] noteNo InformationNort [employer] Other Evaluation note* Diagnosis DIONNE (obstructive sleep [...] Calculus of ureter documented in this encounter [facility] Work Phone: evaluation note* Diagnosis DIONNE (obstructive sleep apnea)- Primary Obstructive sleep apnea (adult) (pediatric) Encounter for laboratory testing for severe acute respiratory syndrome coronavirus 2 (SARS-CoV-2) Postoperative pain Other acute postoperative pain [facility]* Diagnosis DIONNE (obstructive sleep apnea)- Primary Obstructive sleep apnea (adult) (pediatric) documented in this encounter [facility] noteNo assessment information availableMer[facility] Work Phone: Evaluation note* Diagnosis Obstructive [...] note* Diagnosis Dysuria documented in this encounter [employer] Phone: evaluation note* Diagnosis Post-operative state- Primary Other postprocedural status documented [facility] this [facility]* Diagnosis Post-operative state- Primary Other postprocedural status documented [facility]* Diagnosis OAB (overactive bladder) Hypertonicity of bladder Urge incontinence Frequency of urination Urinary frequency documented in this encounter [employer] Phone: evaluation note* Diagnosis Onset Date Resolution Status Contact with and (suspected) exposure to covid-19 acute Influenza B noneactive Diarrhea acute Fecal urgency acute Alternating constipation and diarrhea acute Bloating acute Fecal urgency acute [facility] Work Phone: Evaluation note* Diagnosis Onset Date Resolution Status Constipation acute [facility] Work Phone: History and physical note Author David Martinez [facility] August 08, 2023 12:30pm Note Date/Time August 08, 2023 12:30pm [facility] [address] [place] [address] Gastroenterology H&P Signed Patient: Isabelle Hewitt I MR#: [id number] : 1975 Acct:[id number] Age/Sex: 48 / F Adm Date: 3 Loc: Room: Type: [facility] Attending Dr: David Martinez MD Copies [...] by David Martinez MD> 08/08/23 1230 [facility] Work Phone: History general Narrative - Reported* Type Description Date Medical History anxiety Medical History Hypertension Medical History sleep apnea Surgical History C section Surgical History cholecystectomy Hospitalization History see above Hospitalization History no history of ps ychiatric hospitalization, substance abuse, and suicide attempts, but she is history of ongoing treatment of depression and counseling for depression, anxiety Hospitalization History dehydration [employer] Other History general Narrative - Reported* Type [...] counseling for depression, anxiety Hospitalization History dehydration [employer] Other History of Present illness Narrative* Patient [...] office in 3 to 4 months follow-up [facility]-Karla Haynes DO Work Phone: History of Present illness [...] monitor blood pressure call if not better -[facility] DO Work Phone: Hospital Discharge instructions [...] in the office as scheduled -Office number [phone]. [facility] Work Phone: Reason for visit Narrative* Auth/Cert Specialty Diagnoses / Procedures Referred By Casper t Referred To Contact Diagnoses Kidney stone KIDNEY STONES Procedures RI CYSTO/URETERO W/LITHOTRIPSY &INDWELL STENT INSRT CYSTOSCOPY URETEROSCOPY LASER-WITH HLL Bertha Hirsch MD [address], [address] [place] [address] [employer] [address] [place] [address] Referral ID Status Reason Start Date Expiration Date Visits Re quested Visits Authorized [id number] 1 1 [employer] Phone: reason for visit Narrative* Auth/Cert Specialty Diagnoses / Procedures Referred By Casper diaz Referred To Contact General Surgery Diagnoses DIONNE (obstructive sleep apnea) DIONNE (obstructive sleep apnea) [G47.33] Procedures PALATOPHARYNGOPLASTY UVULOPALATOPHARYNGOPLAS TY Yi Moreno MD [address] [place] [address] [employer] [address] [place] [address] Phone: [phone] Referral ID Status Reason Start Date Expiration Date Visits Re quested Visits Authorized [id number] 3 3 [facility] HospitalReason for visit NarrativeRAPID COVID TEST FOR PROCEDURE, [facility] COVID voluntary/travelNorth Luminator Technology Group Other Family History No Family History Records [...] neoplasm of prostate Unknown Not Specified Unknown Relationship Condition Age at Onset Recorded Date/T judd father Unknown History of malignant neoplasm of prostate Unknown mother Unknown Chief Complaint ISABELLE HWEITT is being seen for hypertension. Summary Purpose [...] and diarrhea Bloating Fecal urgency Chief Complaint R19.8 R14.0 KUB psg/recheck after weight loss Unknown follow up Reason for Visit Constipation Reason for Referral Specialty Diagnoses / Procedures Referred By Casper diaz Referred To Contact Oral Surgery Diagnoses DIONNE (obstructive sleep apnea) Yi Moreno MD [address] [place] [address] Rikki Rodrigues DMD, MD [address] [place] [address] Referral ID Status Reason Start Date Expiration Date V isits Requested Visits Authorized [id number] Pending Review 05/26/2022 05/26/2023 3 3 Scheduling Instructions Please call the induction machine setter Clinic at [facility] at to schedule an appointment if one was not made for you today. Question Answer Patient to be evaluated for: Orthognathic/Jaw Surgery Additional Source Comments INFORMATION SOURCE (unrecogn ized section and content) DATE CREATED AUTHOR 12/03/2021 [employer] DATE CREATED AUTHOR AUTHOR'S ORGANIZ ATION 01/31/2023 [facility] DATE CREATED AUTHOR AUTHOR'S ORGANIZ ATION 01/31/2023 [facility] [employer] DATE CREATED AUTHOR AUTHOR'S ORGANIZ ATION 10/02/2023 [facility] DATE CREATED AUTHOR AUTHOR'S ORGANIZ ATION 12/30/2023 [facility] DATE CREATED AUTHOR AUTHOR'S ORGANIZ ATION 01/19/2024 [facility] DATE CREATED AUTHOR AUTHOR'S ORGANIZ ATION 01/27/2024 [facility] EPIC DATE CREATED AUTHOR AUTHOR'S ORGANIZ ATION 03/20/2024 [facility] Care Teams (unrecognized sec tion and content) Team Status: Active Member Role Status Dates Gena Kirby Primary Care Provider Active Team Status: Inactive Member Role Status Dates Gena Kirby Primary Care Provider Active Yi Moreno MD Referring Provider Active Wiley Mcmanus MD Attending Provider Active Lubrication Servicer Relationship Specialty Start Date End Date Gena Kirby [address] [place] [address] PCP - General Nurse Practitioner 11/30/21 Lubrication Servicer Relationship Specialty Start Date End Date Gena Kirby [address] [place] [address] PCP - General Nurse Practitioner 11/30/21 Lubrication Servicer Relationship Specialty Start Date End Date Gena Kirby [address] [place] [address] PCP - General Nurse Practitioner 11/30/21 Lubrication Servicer Relationship Specialty Start Date End Date Yi Moreno MD [address] [place] [address]23 Physician Otolaryngology 01/23/22 Lubrication Servicer Relationship Specialty Start Date End Date Yi Moreno MD [address] [place] [address] 82499 Physician Otolaryngology 01/23/22 Lubrication Servicer Relationship Specialty Start Date End Date Yi Moreno MD [address] [place] [address] 04519 Physician Otolaryngology 01/23/22 Lubrication Servicer Relationship Specialty Start Date End Date Yi Moreno MD [address] [place] [address] 93268 Physician Otolaryngology 01/23/22 Lubrication Servicer Relationship Specialty Start Date End Date Gena Kirby [address] [place] [address] PCP - General Nurse Practitioner 11/30/21 Lubrication Servicer Relationship Specialty Start Date End Date Yi Moreno MD [address] [place] [address] 51026 Physician Otolaryngology 01/23/22 Lubrication Servicer Relationship Specialty Start Date End Date Yi Moreno MD [address] [place] [address] 12118 Physician Otolaryngology 01/23/22 Lubrication Servicer Relationship Specialty Start Date End Date Yi Moreno MD [address] [place] [address] 35104 Physician Otolaryngology 01/23/22 Lubrication Servicer Relationship Specialty Start Date End Date Yi Moreno MD [address] [place] [address] 50197 Physician Otolaryngology 01/23/22 Team Status: Inactive Member Role Status Dates Gena Kirby Primary Care Provider Active Wiley Mcmanus MD Attending Provider Active Yi Moreno MD Referring Provider Active Lubrication Servicer Relationship Specialty Start Date End Date Yi Moreno MD [address] [place] [address] 62743 Physician Otolaryngology 01/23/22 Lubrication Servicer Relationship Specialty Start Date End Date Yi Moreno MD [address] [place] [address] 16202 Physician Otolaryngology 01/23/22 Rikki Rodrigues DMD, MD [address] [place] [address] 45467 Physician Oral & Maxillofacial Surgery 06/26/22 Lubrication Servicer Relationship Specialty Start Date End Date Yi Moreno MD [address] [place] [address] 52964 Physician Otolaryngology 01/23/22 Lubrication Servicer Relationship Specialty Start Date End Date Yi Moreno MD [address] [place] [address] 88512 Physician Otolaryngology 01/23/22 Rikki Rodrigues DMD, MD [address] [place] [address] 54442 Physician Oral & Maxillofacial Surgery 06/26/22 Lubrication Servicer Relationship Specialty Start Date End Date Yi Moreno MD [address] [place] [address] 98377 Physician Otolaryngology 01/23/22 Rikki Rodrigues DMD, MD [address] [place] [address] 48723 Physician Oral & Maxillofacial Surgery 06/26/22 Lubrication Servicer Relationship Specialty Start Date End Date Yi Moreno MD [address] [place] [address] 48164 Physician Otolaryngology 01/23/22 Rikki Rodrigues DMD, MD [address] [place] [address] 26794 Physician Oral & Maxillofacial Surgery 06/26/22 Lubrication Servicer Relationship Specialty Start Date End Date Yi Moreno MD [address] [place] [address] 55013 Physician Otolaryngology 01/23/22 Lubrication Servicer Relationship Specialty Start Date End Date Yi Moreno MD [address] [place] [address] 91717 Physician Otolaryngology 01/23/22 Rikki Rodrigues DMD, MD [address] [place] [address] 51500 Physician Oral & Maxillofacial Surgery 06/26/22 Lubrication Servicer Relationship Specialty Start Date End Date Yi Moreno MD [address] [place] [address] 59751 Physician Otolaryngology 01/23/22 Rikki Rodrigues DMD, MD [address] [place] [address] 48222 Physician Oral & Maxillofacial Surgery 06/26/22 Lubrication Servicer Relationship Specialty Start Date End Date Yi Moreno MD [address] [place] [address] 15093 Physician Otolaryngology 01/23/22 Rikki Rodrigues DMD, MD [address] [place] [address] 64276 Physician Oral & Maxillofacial Surgery 06/26/22 Lubrication Servicer Relationship Specialty Start Date End Date Yi Moreno MD [address] [place] [address] 29516 Physician Otolaryngology 01/23/22 Rikki Rodrigues DMD, MD [address] [place] [address] 53193 Physician Oral & Maxillofacial Surgery 06/26/22 Lubrication Servicer Relationship Specialty Start Date End Date Yi Moreno MD [address] [place] [address] 09580 Physician Otolaryngology 01/23/22 Rikki Rodrigues DMD, MD [address] [place] [address] 47797 Physician Oral & Maxillofacial Surgery 06/26/22 Gena Holbrook APRN-SELF CONTAINED BEHAVIOR UNIT TEACHER [address] [place] [address] 28449 BODY SHOP FLOORPERSON Anesthesiology 07/24/22 Lubrication Servicer Relationship Specialty Start Date End Date Yi Moreno MD [address] [place] [address] 06050 Physician Otolaryngology 01/23/22 Rikki Rodrigues DMD, MD [address] [place] [address] 52154 Physician Oral & Maxillofacial Surgery 06/26/22 Gena Holbrook APRN-SELF CONTAINED BEHAVIOR UNIT TEACHER [address] [place] [address] 87904 BODY SHOP FLOORPERSON Anesthesiology 07/24/22 Lubrication Servicer Relationship Specialty Start Date End Date Gena Kirby [address] [place] [address] PCP - General Nurse Practitioner 11/30/21 Lubrication Servicer Relationship Specialty Start Date End Date Yi Moreno MD [address] [place] [address] 92362 Physician Otolaryngology 01/23/22 Rikki Rodrigues DMD, MD [address] [place] [address] 55638 Physician Oral & Maxillofacial Surgery 06/26/22 Gena Holbrook APRN-SELF CONTAINED BEHAVIOR UNIT TEACHER [address] [place] [address] 13357 BODY SHOP FLOORPERSON Anesthesiology 07/24/22 Lubrication Servicer Relationship Specialty Start Date End Date Yi Moreno MD [address] [place] [id number] Physician Otolaryngology 01/23/22 Rikki Rodrigues DMD, MD [address] [place] [id number] Physician Oral & Maxillofacial Surgery 06/26/22 Gena Holbrook APRN-SELF CONTAINED [employer] TE[employer]ER [address] [place] [address] [id number] BODY SHOP FLOORPERSON Anesthesiology 07/24/22 Lubrication Servicer Relationship Specialty Start Date End Date Gena Kirby [address] [place] [address] PCP - General Nurse Practitioner 11/30/21 Lubrication Servicer Relationship Specialty Start Date End Date Yi Moreno MD [address] [place] [id number] Physician Otolaryngology 01/23/22 Rikki Rodrigues DMD, MD [address] [place] [id number] Physician Oral & Maxillofacial Surgery 06/26/22 Gena Holbrook APRN-[employer]LF [employer] TE[employer] [address] [place] [id number] BODY SHOP FLOORPERSON Anesthesiology 07/24/22 Team Status: Inactive Member Role [...] 2023 Oswald Harrington Attending Provider Active Start: 2023 End: December 29, 2023 Team Status: Active Member Role Status Dates Gena Kirby Primary Care Provider Active Sta rt: December 16, 2023 Wiley Mcmanus MD Attending Provider, Other Provider Active Start: December 16, 2023 Team Status: Inactive Member Role Status Dates Gena Kirby Primary Care Provider Active Sta rt: December 29, 2023 End: December 29, 2023 Oswald Harrington DO Attending Provider Active Start : December 29, 2023 End: December 29, 2023 Team Status: Inactive Member Role Status Dates Gena Kirby Primary Care Provider Active Sta rt: March 13, 2024 End: March 13, 2024 Majo Lyman APRN Attending Provider Active Start: March 13, 2024 End: March 13, 2024 Scheduled Active and Recently Administ ered Medications [...] IVPB 400 mg (COMPLETED) 400 mg, IntraVENous, TELEVISION PRODUCER TO O.R., 1 dose, On Tue01/05/22 [...] Ashvin Mims) 0850 (Given - Provider: Iglesia Amin, JUDSON)2100 (Due) norethindrone (MICRONOR) tablet TABS 1 Tablet, [...] Starting on Tue02/25/22 at 0830, Until Discontinued 1841 (IV New [...] Now 1134 (Given - Provider: Carolyn Verdugo, JUDSON) naloxone (NARCAN) 0.4 MG/ML injection 0.4 mg, Intravenous Push, PRN, Starting on Christen 02/25/22 at 1423, Until Discontinued, Respiratory Rate Less Than 8 for adults and less than 12 for Peds or for suspected overdose, Post-op ondansetron (ZOFRAN) 4 MG/2ML injection 4 mg, Intravenous Push, EVERY 6 HOURS PRN, Starting on Christen 02/25/22 at 1423, Until 03/01/22 at 1422, Nausea, Vomiting, Post-op oxybutynin (DITROPAN) [...] Cleo Tao RN)2044 (Given - Provider: Lola Wyatt RN)2100 (Hold/Not Given - Provider: Lola Wyatt RN - Reason: Previously Administered) 0206 (Given - Provider: Lola Wyatt RN)0542 (Hold/Not Given - Provider: Lola Wyatt RN - Reason: Patient refused)0916 (Given - Provider: Penny Brown RN)1400 (Due - Provider: Dulce Olson [facility])1800 (Due - Provider: Dulce Olson [facility])2200 (Due - Provider: Dulce Olson RP) acetaminophen (TYLENOL) tablet (CANCELED) 650 mg, Oral, [...] (IV New Bag - Provider: Lemuel Gilbert, JUDSON) 0348 (IV New Bag - Provider: Donya Lam RN)0959 (IV New Bag - Provider: Linh Fregoso RN)2023 (Hold/Not Given - Provider: Lola Wyatt RN [...] RN) 0916 (Given - Provider: Penny Brown, JUDSON) chlorhexidine (PERIDEX) 0.12 % oral solution 15 mL, Swish & Spit, 2 TIMES DAILY, First dose on Tue07/14/22 at 1530, Until Discontinued, ICU/Step Down 0900 (Given - Provider: Lauren Crawford RN)2100 (Given - Provider: Lemuel Gilbert, JUDSON) 08 (Given - Provider: Linh Fregoso RN)2042 (Given - Provider: Lola Wyatt, JUDSON) 0916 (Given - Provider: Penny Brown, JUDSON)2099 (Due) dexamethasone (DECADRON) 4 MG/ML injection (COMPLETED) [...] ICU/Step Down 0800 (Given - Provider: Lauren Crawford, JUDSON)2123 (Given - Provider: Lemuel Gilbert RN) 08 [...] Linh Fregoso RN)2044 (Given - Provider: Lola Wyatt RN) 0916 (Given - Provider: Penny Brown RN)2100 [...] Crawford RN) 0812 (Given - Provider: Linh Fregoso, JUDSON) 0916 (Given - Provider: Penny Brown, JUDSON) OLANZapine (ZyPREXA ZYDIS) disintegrating tablet 10 mg, Oral, AT BEDTIME, First dose on Tue07/15/22 at 2200, Until Discontinued 2123 (Given - Provider: Lemuel Gilbert, RN) 204 (Given - Provider: Lola Wyatt RN)2100 (Hold/Not Given - Provider: Lola Wyatt RN - Reason: Previously Administered) 2200 (Due) oxybutynin (DITROPAN) 5 MG tablet 5 mg, Oral, 3 TIMES DAILY, First dose on Tue07/14/22 at 1800, Until Discontinued, ICU/Step Down 0625 (Given - Provider: Alon Cotton RN)1315 (Given - Provider: Lauren Crawford RN)2124 (Given - Provider: Lemuel Gilbert, JUDSON) 0655 (Given - Provider: Donya Lam RN)1358 [...] (IV New Bag - Provider: Linh Fregoso, JUDSON) venlafaxine (EFFEXOR XR) 24 hour capsule 75 mg, Oral, DAILY, First dose on Tue07/14/22 at 1800, Until Discontinued, ICU/Step Down 0901 (Given - Provider: Lauren Crawford, JUDSON) 0811 (Given - Provider: Linh Fregoso, JUDSON) 0916 (Given - Provider: Penny Brown, JUDSON) Continuous Medication Order 07/15/2022 07/16/2022 07/17/2022 dextrose 5 % and NaCl 0.45 % iv infusion Intravenous, at 75 mL/hr, CONTINUOUS, Starting on Tue07/16/22 at 0900, Until 07/19/22 at 0859 1000 (IV New Bag - [...] ICU/Step Down 1840 (Given - Provider: Lauren Joe, JUDSON) ibuprofen (MOTRIN) tablet 600 mg, Oral, EVERY [...] RN) 0409 (Given - Provider: Lola Wyatt, JUDSON) oxyCODONE (ROXICODONE) 5 mg/5 mL oral solution 10 mg, Oral, EVERY 4 HOURS PRN, Starting on Christen 07/15/22 at 0821, Until Discontinued, Severe Pain (pain score 7,8,9,10) oxyCODONE immediate release tablet (CANCELED) 10 mg, Oral, EVERY 4 HOURS PRN, Starting on Tue07/14/22 at 1516, Until Christen 07/15/22 at 0828, Severe Pain (pain score 7,8,9,10), ICU/Step Down 0346 (Given - Provider: Alon Cotton, JUDSON)0800 (Given - Provider: Lauren Crawford, JUDSON) oxymetazoline (AFRIN) 0.05 % nasal solution 2 [place], Nasal, EVERY 4 HOURS PRN, Starting on Tue07/14/22 at 1516, Until Discontinued, Nosebleed, ICU/Step Down sodium chloride (OCEAN) 0.65 % nasal spray 1 [place], Nasal, EVERY 1 HOUR PRN, Starting on Tue07/14/22 at 1516, Until Discontinued, Congestion, Congestion due to dryness, ICU/Step Down Reason for Visit (unrecogniz ed section and content) Reason Comments New patient, to establish relationship S leep Apnea, Inspire Specialty Diagnoses / Procedures Referred By Casper t Referred To Contact Ent-Otolaryngology Diagnoses Sleep apnea, unspecified type Wiley Mcmanus MD [address] [place] [address] [facility] [address] [place] [address] Referral ID Status Reason Start Date Expiration Date Visits Requested Visits Authorized [id number] Pending Review Transfer of Care-[facility] 01/01/2022 01/01/2023 3 3 Reason Onset [...] DIONNE (obstructive sleep apnea) Yi Moreno MD [address] [place] [address] Rikki Rodrigues DMD, MD [address] [place] [address] Referral ID Status Reason Start Date Expiration Date V isits Requested Visits Authorized [id number] Pending Review 05/26/2022 05/26/2023 3 3 Reason [...] SAGITTAL SPLIT, BILATERAL Rikki Rodrigues DMD, MD [address] [place] [id number] [employer] [address] [place] [id number] Phone: [phone] Referral ID Status Reason Start Date Expiration Date Visits Re quested Visits Authorized [id number] 3 3 Reason Comments Post Op Check [...] BE BASED ON THE PRIMARY CLINICAL RECORDS. [facility]. provides no warranty or guarantee of the accuracy or completeness of information in this document.
[2024-03-27 09:51] LABS: Basophils Absolute Auto 0.1 10^3/uL (0.0-0.1); Basophils Percent Auto 0.9 % (0.2-2.0); Eosinophils Absolute Auto 0.1 10^3/uL (0.0-0.7); Eosinophils Percent Auto 1.5 % (0.9-7.0); Hemoglobin 13.3 g/dL (12.0-16.0); Immature Granulocytes Abs Auto 0.01 10^3/uL (0.00-0.03); Immature Granulocytes Pct Auto 0.1 % (0.0-0.5); Lymphocytes Percent Auto 26.9 % (20.5-60.0); Mean Corpuscular HGB Conc 34.1 g/dL (29.9-35.2); Mean Corpuscular Hemoglobin 31.8 pg (26.7-34.0); Mean Corpuscular Volume 93.3 fL (81.0-99.0); Mean Platelet Volume 10.1 fL (9.5-13.5); Monocytes Absolute Auto 0.5 10^3/uL (0.3-0.8); Monocytes Percent Auto 6.7 % (1.7-12.0); Neutrophils Absolute Auto 4.7 10^3/uL (1.4-6.5); Neutrophils Percent Auto 63.9 % (43.0-75.0); Platelet Count 263 10^3/uL (150-450); Red Blood Count 4.18 10^6/uL (4.20-5.40); Red Cell Distribution Width 12.2 % (11.0-15.0); White Blood Count 7.4 10^3/uL (4.0-11.0)
[2024-03-27 10:23] LABS: Alanine Aminotransferase 26 U/L (14-59); Albumin Globulin Ratio 0.9; Albumin Level 3.5 g/dL (3.4-5.0); Alkaline Phosphatase 114 U/L (46-116); Anion Gap 13.4; Aspartate Amino Transferase 18 U/L (15-37); BUN Creatinine Ratio 12.2; Bilirubin Total 0.3 mg/dL (0.2-1.0); Calcium 8.7 mg/dL (8.5-10.1); Chloride 99 mmol/L (98-107); Estimated GFR (African America >60 (>=60); Estimated GFR (Non-African Ame >60 (>=60); Glucose 116 mg/dL (74-106); Potassium 3.4 mmol/L (3.5-5.1); Sodium 138 mmol/L (136-145); Total Protein 7.5 g/dL (6.4-8.2)
== END 2024-03-27 09:31 | disposition home or self-care (01) ==
LOC: LAB 09:30
PROVIDERS: PCP Nurse Practitioner; Visit Provider Nurse Practitioner
DX: Z01.818 Encounter for other preprocedural examination (principal)
CPT/HCPCS: 36415; 80053; 85025

== ENCOUNTER 2024-04-26 14:44 | Outpatient (OUT) | payer OTHER, SELFPAY ==
--- NOTE | 2024-04-26 14:49 | US_ITS ---
The [address] [address] Patient Name: VEDA HEWITT MRN: [id number] date: 1975 Sex: F Assigned Patient Location: Current Patient Location: Accession/Order Number: [id number] Exam Date: 04/26/2024 14:52 Report Date: 04/27/2024 06:24 At the request of: POOL BARRAZA Procedure: US thyroid EXAMINATION: US thyroid HISTORY: Hypothyroidism, Thyroiditis COMPARISON: No relevant comparison available. FINDINGS: RIGHT LOBE: Heterogeneous, slightly hypervascular, with lobular margins. No definable nodules. Lobe size: 4.2 x 2.1 x 1.67 m LEFT LOBE: Heterogeneous, slightly hypervascular, with lobular margins. No definable nodules. Lobe size: 3.9 x 1.8 x 1.4 cm ISTHMUS: Heterogeneous and thickened. Thickness: 6 mm US/US thyroid IMPRESSION: 1. Heterogeneous, slightly hypervascular, and lobular appearance of the thyroid gland; nonspecific. 2. No definable nodules. Electronically authenticated by: MADDI WINSTON Date: 04/27/2024 06:24
[2024-04-26 16:06] LABS: Free T4 0.66 ng/dL (0.76-1.46)
[2024-04-26 16:12] LABS: Free T3 2.29 pg/mL (2.18-3.98); Thyroid Stimulating Hormone 0.613 uIU/mL (0.358-3.740)
[2024-04-28 12:09] LABS: Thyroid Peroxidase (TPO) Ab <9 IU/mL (0-34)
== END 2024-04-26 14:45 | disposition home or self-care (01) ==
PROVIDERS: PCP Nurse Practitioner; Visit Provider Internal Medicine
DX: E03.8 Other specified hypothyroidism (principal); E06.9 Thyroiditis, unspecified
CPT/HCPCS: 36415; 76536; 84439; 84443; 84481; 86376

== ENCOUNTER 2024-05-07 12:01 | Outpatient (REF) | payer OTHER, SELFPAY ==
--- OUTSIDE RECORDS SUMMARY | 2024-05-07 12:17 | XMS_ITS | CCD ---
Author Organization [facility] Care Team Providers Care Imitation Marble Mechanic Name Role Phone Gena Kirby Unavailable Unavailable Unavailable Gena Kirby Primary Care Provider Unavailable Primary Care Provider Unavailabl e Yi Moreno MD Unavailable Wiley Mcmanus Unavailable Yi Moreno MD Unavailable Gena Kirby Primary Care Provider MD Wiley Mcmanus Attending Provider [phone] MD Yi Moreno Referring Provider Isabel Sin Unavailable Matthew RITCHIE MD, Justin Unavailable Gena Corrales Unavailable Gena Kirby Primary Care Provider Yi Moreno MD Unavailable Matthew RITCHIE MD, Justin Unavailable Gena Corrales Unavailable Gena Kirby Primary Care Provider [phone] MD Yi Moreno Referring Provider MD Wiley Mcmanus Attending Provider Gena Corrales Unavailable AICHHOLZ, COOK MESS GENA Admitting Unavailable AICHHOLZ, COOK MESS GENA Attending Unavailable AICHHOLZ, COOK MESS GENA Consulting Unavailable AICHHOLZ, COOK MESS GENA Primary Care Unavailable KAVITHA ., DR ARIZA Attending Unavailable KAVITHA ., DR ARIZA Consulting Unavailable KAVITHA ., DR ARIZA Admitting Unavailable AICHHOLZ, COOK MESS GENA Primary Care Unavailable WEST, DR WILEY Bryant Consulting Unavailable KAVITHA ., DR ARIZA Attending Unavailable AICHHOLZ, COOK MESS GENA Primary Care Unavailable KAVITHA ., DR ARIZA Admitting Unavailable KAVITHA ., DR ARIZA Consulting Unavailable AICHHOLZ, COOK MESS GENA Primary Care Unavailable AICHHOLZ, COOK MESS GENA Admitting Unavailable AICHHOLZ, COOK MESS GENA Attending Unavailable AICHHOLZ, COOK MESS GENA Consulting Unavailable KAVITHA ., DR ARIZA Attending Unavailable AICHHOLZ, COOK MESS GENA Primary Care Unavailable KAVITHA ., DR ARIZA Admitting Unavailable KAVITHA ., DR ARIZA Admitting Unavailable KAVITHA ., DR ARIZA Attending Unavailable AICHHOLZ, COOK MESS GENA Primary Care Unavailable KAVITHA ., DR ARIZA Consulting Unavailable TATEONDINAT Consulting Unavailable MARGARITA II, BERTHA Consulting Unavailable KAVITHA ., DR ARIZA Attending Unavailable AICHHOLZ, COOK MESS GENA Primary Care Unavailable KAVITHA ., DR ARIZA Admitting Unavailable KAVITHA ., DR ARIZA Attending Unavailable AICHHOLZ, COOK MESS GENA Primary Care Unavailable KAVITHA ., DR ARIZA Admitting Unavailable KAVITHA ., DR ARIZA Consulting Unavailable KAVITHA ., DR ARIZA Admitting Unavailable KAVITHA ., DR ARIZA Attending Unavailable AICHHOLZ, COOK MESS GENA Primary Care Unavailable AICHHOLZ, COOK MESS GENA Primary Care Unavailable AICHHOLZ, COOK MESS GENA Attending Unavailable AICHHOLZ, COOK MESS GENA Admitting Unavailable AICHHOLZ, COOK MESS GENA Consulting Unavailable KAVITHA ., DR ARIZA Attending Unavailable KAVITHA ., DR ARIZA Consulting Unavailable AICHHOLZ, COOK MESS GENA Primary Care Unavailable KAVITHA ., DR ARIZA Admitting Unavailable ZIEBER, DR MADDI Wild Consulting Unavailable AICHHOLZ, COOK MESS GENA Consulting Unavailable AICHHOLZ, COOK MESS GENA Primary Care Unavailable AICHHOLZ, COOK MESS GENA Attending Unavailable AICHHOLZ, COOK MESS GENA Admitting Unavailable MISC, DR PETERS Admitting Unavailable MISC, DOCTOR Attending Unavailable MISC, DR PETERS Consulting Unavailable AICHHOLZ, COOK MESS GENA Primary Care Unavailable AICHHOLZ, COOK MESS GENA Primary Care Unavailable AICHHOLZ, COOK MESS GENA Attending Unavailable AICHHOLZ, COOK MESS GENA Admitting Unavailable AICHHOLZ, COOK MESS GENA Consulting Unavailable PROVIDER, UNKNOWN Admitting Unavailable PROVIDER, UNKNOWN Attending Unavailable YI MORENO Referring Unavailabl e WEIDENBECHER, YI Rebollar Admitting Unavailabl e MAGGIEBECHER, YI Rebollar Attending Unavailabl e HERMES, YI Rebollar Referring Unavailabl e CLEMOW, RIKKI [...] UNKNOWN Attending Unavailable CLEMOW, RIKKI Referring Unavailable HREMES, YI Rebollar Admitting Unavailabl e BENOITHER, YI Rebollar Attending Unavailabl e CLEMOW, RIKKI Admitting Unavailable CLEMOW, RIKKI Attending Unavailable PROVIDER, UNKNOWN Admitting Unavailable PROVIDER, UNKNOWN Attending Unavailable CLEMOW, RIKKI Referring Unavailable PROVIDER, UNKNOWN Admitting Unavailable PROVIDER, UNKNOWN Attending Unavailable PATIENT, SELF Referring Unavailable PROVIDER, UNKNOWN Admitting Unavailable PROVIDER, UNKNOWN Attending Unavailable PROVIDER, UNKNOWN Admitting Unavailable PROVIDER, UNKNOWN Attending Unavailable YI MORENO Referring Unavailabl e Gena Kirby Primary Care Provider [phone] MD Wiley Mcmanus Attending Provider Louise Johnson Unavailable Majo Lyman Unavailable Gena Kirby Primary Care Provider [phone] KATHRIN Lyman Attending Provider MD David Martinez Attending Provider David Martinez Unavailable MD Wiley Mcmanus Attending Provider PARSELL, ELIN W Referring Unavailable AICHHOLZ, GENA J. Primary Care Unavailable PARSELL, ELIN W Referring Unavailable AICHHOLZ, GENA J. Primary Care Unavailable PARSELL, ELIN W Referring Unavailable AICHHOLZ, GENA J. Primary Care Unavailable PARSELL, ELIN W Referring Unavailable AICHHOLZ, GENA J. Primary Care Unavailable PARSELL, ELIN W Referring Unavailable AICHHOLZ, GENA J. Primary Care Unavailable Aichholz, Gena J Primary Care Provider Kofi, Gena J Primary Care Provider MD Wiley Mcmanus Attending Provider KATHRIN Lyman Attending Provider Kofi Gena J Primary Care Provider [phone] MD Wiley Mcmanus Attending Provider Oswald Harrington Attending Provider [phone] Aichludmila, Gena J Primary Care Unavailable Asaad, Imad Admitting Unavailable Asaad, Imad Attending Unavailable Aictiffludmila, Gena J Primary Care Unavailable Oswald Harrington Admitting Unavailable Oswald Harrington Attending Unavailable Aichholz, Gena J Primary Care Unavailable ScMajo rai Admitting Unavailable ScMajo rai Attending Unavailable Aickadie, Gena J Primary Care Unavailable Wiley Mcmanus Admitting Unavailable Wiley Mcmanus Attending Unavailable Kofi, Gena J Primary Care Unavailable Wiley Mcmanus Admitting Unavailable Wiley Mcmanus Attending Unavailable Aichholarmando, Gena J Primary Care Unavailable ScmeenanerMajo M Admitting Unavailable Majo Lyman Attending Unavailable Wiley Mcmanus Admitting Unavailable iWley Mcmanus Attending Unavailable Aichholz, Gena J Primary Care Unavailable DO Oswald Harrington Attending Provider [phone] AICHHOLZ COOK MESS, GENA Primary Care Unavailable DESIREE SYKES DO Consulting Unavailable HERMES ERNST~[id number], HERMES Beltran Admitting Unavailable HERMES ERNST~[id number], HERMES Beltran Attending Unavailable DESIREE SYKES DO Consulting Unavailable RIO POSTBED STITCHER, CHRIS Becerra Consulting Unavailable RIO POSTBED STITCHER, CHRIS Becerra Consulting Unavailable MAJO CATALAN Attending Unavailable RAMESH, LLOYD [...] Unavailable RAMESH, LLOYD A Primary Care Unavailable AICHHOLZ, GENA Attending Unavailable CHAGO, ROSHNI Attending Unavailable AICHHOLZ, GENA Attending Unavailable AICHHOLZ, GENA Attending Unavailable AICHHOLZ, GENA Attending Unavailable AICHHOLZ, GENA Attending Unavailable Medications Current Medications Medication Drug [...] Start: 02-25-2022 take 2 tablets by mo uth every four hours as needed acetaminophen (TYLENOL) 325 mg tablet Take 2 Tablets by mouth every 4 hours as needed. 30 Tablet 0 02/26/2022 Active Start: 02-25-2022 take 1 tablet by rosy th every eight hours as needed for pain [...] ICU/Step Down cholecalciferol 0.05 mg oral capsule (12 sources) Vitamin D Start: 10-14-2023 take 1 capsule by mouth once daily Cholecalciferol (Vitamin D3) Active 1 CAP PO Daily October 14, 2023 1:00am FreeTextSi capsule Orally Once a day; Note: Source Status: Taking; Provider: Yonathan Diaz ( ) take 1 capsule by [facility] every twenty-four hours Vitamin D3 50 MCG (1999) 1 capsule Orally Once a day Active [...] Start: 08-12-2023 take 1 capsule by mo [facility] every eight hours Dicyclomine HCl 10 MG [...] other day. HS 0 12/14/2021 Active ibuprofen 800 mg oral tablet (7 sources) Nonsteroidal Anti-inflammatory Drug Start: 04-16-2024 take 800 mg by mouth every eight hours Ibuprofen Active 800 MG PO Every 8 hours 30 April 16, 2024 12:00am Start: 07-14-2022 End: 07-24-2022 take 1 tablet by mouth every six hours as needed for pain ibuprofen (MOTRIN) 600 MG tablet Take 1 Tablet by mouth every 6 hours as needed for Pain for up to 7 days. 28 Tablet 3 07/17/2022 07/24/2022 Active take 1 tablet by rosy once daily as needed Ibuprofen 200 MG Oral Tablet TAKE 1 TABLET Daily [...] a day Active Levothyroxine So dium Active Lidocaine (1 source) Antiarrhythmic, Amide Local Anesthetic Start: 04-16-2024 Lidocaine Active 1 APPLIC TOPICAL Twice daily 30 April 16, 2024 12:00am loperamide hydrochloride 2 mg oral capsule (7 sources) Opioid Agonist Start: 12-06-2023 take 1 [...] by mouth once daily Multiple Vitamins-Minerals (THERAPEUTIC MULTIVITAMIN-BOILER ASSISTANT OPERATOR ALS) tablet Take 1 tablet by mouth daily 0 Suspended take 1 tablet by mouth once gagan y Multiple Vitamins-Minerals (THERAPEUTIC MULTIVITAMIN-MINERALS) tablet Take 1 tablet by mouth daily 0 Active Multivitamin (One Daily Multivitamin) tablet (8 sources) Start: 10-14-2023 take 1 tablet by [...] 0 11/17/2021 Active take 2 tablets by [facility] at bedtime OLANZapine (ZyPREXA) 5 MG tablet Take 10 mg by mouth. hs 0 Active ondansetron 8 mg oral tablet (10 sources) Serotonin-3 Receptor Antagonist Start: 10-14-2023 take [...] PRN, Starting on Tue02/25/22 at 1423, Until 03/01/22 at 1422, Nausea, [...] chloride 20 meq extended release oral tablet (12 sources) Start: 10-14-2023 take 1 tablet by mouth once daily at mealtime Potassium Chloride Active 1 TAB PO Daily October 14, 2023 1:00am FreeTextSi tablet with food Orally Once a day; Note: Source Status: Taking; Provider: Yonathan Diaz ( ) take 1 tablet by rosy every twenty-four hours Potassium Chloride ER 20 [...] Husk (Fiber (Psyllium Husk)) 0.4 gram capsule (8 sources) Start: 10-14-2023 Psyllium Husk (Fiber (Psyllium Husk)) 0.4 gram capsule Active 0.8 GM PO Twice daily October 14, 2023 1:00am Start: 10-14-2023 Psyllium Husk (Fiber (Psyllium Husk)) 0.4 gram capsule Active 0.8 GM PO Twice daily October 14, 2023 12:00am QUEtiapine 50 mg oral tablet (19 sources) Atypical Antipsychotic Start: 10-14-2023 Quetiap ine Active MG PO October 14, 2023 1:00am FreeTextSi tablet twice daily Orally twice daily; Note: Source Status: Taking; Provider: Yonathan Diaz ( ) Start: 09-14-2022 take 2 tablets by mo [facility] once daily QUEtiapine (SEROQUEL) 50 MG tablet TAKE 2 TABLETS BY MOUTH NIGHTLY 0 09/14/2022 Active Start: 08-25-2021 take 1 tablet by rosy once daily QUEtiapine Fumarate 100 MG Oral Tablet TAKE 1 TABLET BY MOUTH DAILY Quantity: 30 Refills: 0 Ordered: 28-Sep-2021 DO Start : 25-Aug-2021 Active SEROquel 50 MG 1 tablet twice daily Orally twice daily Active saccharomyces boulardii 250 mg oral capsule (8 sources) Start: 10-14-2023 take 1 capsule by mouth once daily Saccharomyces Boulardii (Daily Probiotic (S. Boulardii)) 250 mg capsule Active 250 MG PO Daily October 14, 2023 1:00am sodium chloride 0.111 meq/ml nasal solution (15 sources) Start: 07-17-2022 take 1 spray(s) nasal route twice daily as needed for congestion sodium chloride (Gem Nasal [place]) 0.65 % nasal spray Use 1 [place] in each nostril as needed for Congestion (2 puffs nasally twice daily). 1 mL 3 07/17/2022 Active Start: 07-14-2022 1 [place], Nasal , EVERY 1 HOUR PRN, Starting [...] chloride 60 mg extended release oral capsule (8 sources) Cholinergic Muscarinic Antagonist Start: 11-02-2023 Trospium Active 60 MG PO November 02, 2023 12:00am take 1 tablet by mouth twice alonso ly Trospium Chloride 20 MG TAKE 1 TABLET BY MOUTH TWICE DAILY Oral for 30 Days Active valACYclovir 1000 mg oral tablet (1 source) Herpesvirus Nucleoside Analog DNA Polymerase Inhibitor, Herpes Simplex Virus Nucleoside Analog DNA Polymerase Inhibitor, Herpes Zoster Virus Nucleoside Analog DNA Polymerase Inhibitor Start: 04-16-2024 take 1000 mg by mouth every eight hours Valacyclovir Active 1000 MG PO Every 8 hours 11 03April 16, 2024 12:00am 24 hr venlafaxine 150 mg extended release [...] ) Start: 10-14-2023 take 1 capsule by [facility] once daily at mealtime Venlafaxine (Effexor Xr) [...] Start: 11-30-2021 take 1 capsule by mo [facility] once daily venlafaxine (EFFEXOR XR) 150 MG ER capsule Take 150 mg by mouth daily. 0 11/30/2021 Active Start: 11-30-2021 take 1 capsule by mo deh once daily venlafaxine (EFFEXOR XR) 75 MG [...] sources) Atypical Antipsychotic Abilify Not-Taking bifidobacterium animalis [id number] unt / lactobacillus acidophilus [id number] unt oral capsule (2 sources) Probiotic CAPS [...] on Christen 07/15/22 at 0900, ICU/Step Down dimenhyDRINATE 50 mg [...] Push, 2 TIMES DAILY, First dose on Christen 02/25/22 at 1430, Until Discontinued, Post-op 2 ml [...] fumarate 8 mg extended release oral tablet (9 sources) Start: 10-14-2023 End: 11-02-2023 take 1 [...] Inhibitor Start: 06-05-2015 Toradol per 15 mg May, 60 mg mesalamine (7 sources) Aminosalicylate Start: 12-12-2023 End: 12-12-2023 take [...] DO Active oseltamivir 75 mg oral capsule (7 sources) Neuraminidase Inhibitor Start: 10-14-19 End: 11-02-19 take 1 capsule by mouth twice daily Oseltamivir (Tamiflu) 75 mg capsule Discontinued 75 MG PO Twice daily 10 October 14, 2023 1:00am November 02, 2023 3:39pm oxymetazoline hydrochloride 0.5 mg/ml nasal spray (1 source) Start: 07-14-20 2 [place], Nasal, EVERY 4 HOURS PRN, Starting on Tue07/14/22 at 1516, Until Discontinued, Nosebleed, ICU/Step Down potassium phosphate 15 mmol injection in D5W (1 source) Start: 07-16-20 End: 07-16-20 potassium phosphate 15 mmol injection in D5W predniSONE 20 mg oral tablet (7 sources) Start: 10-14-19 End: 11-02-19 take 20 mg by mouth twice daily Prednisone Discontinued 20 MG PO Twice daily 10 October 14, 2023 1:00am November 02, 2023 3:39pm sennosides, nursing home 1.76 mg/ml oral solution (20 sources) Start: 02-26-20 take 8.8 mg by mouth at bedtime 8.8 mg (5 mL), Oral, AT BEDTIME, First dose on Tue02/25/22 at 2200, Until Discontinued, Post-op Start: 02-25-2022 take 1 tablet by rosy once daily as needed for constipation senna [...] [HYPERLIPIDEMIA UNSPECIFIED] Onset: 11-16-2022 Chronic Essential hypertension (15 sources) Benign essential hypertension; Translations: [Benign essential hypertension] Onset: 11-16-2022 11-02-2023 Chronic Genitourinary symptoms and ill-defined conditions (4 sources) Urge incontinence of urine; Translations: [Urge incontinence] Onset: 02-23-2022 02-23-2022 Chronic Immunizations and screening for infectious disease (15 sources) Patient encounter status; Translations: [Encounter for [...] Onset: 05-11-2022 Chronic Miscellaneous mental health disorders (6 sources) Not getting enough sleep; Translations: [Insufficient sleep syndrome] Chronic Mood disorders (20 sources) Acute depression; Translations: [Acute depression] Onset: 11-09-2021 Resolved: 11-09-2021 11-19-2021 Chronic Mood disorders (1 source) Mood disorders; Translations: [DEPRESSION UNSPECIFIED] Onset: 11-16-2022 Noninfectious gastroenteritis (7 sources) Microscopic colitis; Translations: [Microscopic colitis, unspecified] 11-02-2023 Chronic Other aftercare (1 source) Other penitentiary (current) drug therapy; Translations: [OTH DETENTION CURRENT DRUG THERAPY] Onset: 11-16-2022 Episodic Other complications of ; puerperium affecting management of mother (2 sources) Deliveries by ; Translations: [Delivery by section] 03-13-2024 Episodic Other diseases of bladder and urethra (10 sources) Overactive bladder; Translations: [Overactive bladder] Onset: 02-23-2022 02-23-2022 Chronic Other diseases of bladder and urethra (1 source) Overactive bladder; Translations: [Overactive bladder] Onset: 02-23-2022 Chronic Other gastrointestinal disorders (11 sources) Diarrhea; Translations: [Diarrhea, unspecified] 11-02-2023 Episodic Other gastrointestinal disorders (6 sources) Diarrhea, unspecified; Translations: [Diarrhea] Episodic Other gastrointestinal disorders (11 sources) Fecal urgency; Translations: [Fecal urgency] Episodic Other gastrointestinal disorders (7 sources) Constipation alternates with diarrhea; Translations: [Other specified symptoms and signs involving the digestive system and abdomen] 12-12-2023 Episodic Other gastrointestinal disorders (7 sources) Abdominal bloating; Translations: [Abdominal distension (gaseous)] 12-12-2023 Episodic Other gastrointestinal disorders (7 sources) Urgent desire for stool; Translations: [Fecal urgency] 11-02-2023 Episodic Other gastrointestinal disorders (6 sources) Other specified symptoms and signs involving the digestive system and abdomen; Translations: [Other symptoms involving digestive system] Onset: 12-14-2023 12-12-2023 Episodic Other gastrointestinal disorders (5 sources) Abdominal distension (gaseous); Translations: [Flatulence, eructation, and gas pain] 12-12-2023 Episodic Other gastrointestinal disorders (2 sources) Constipation; Translations: [Constipation, unspecified] 03-13-2024 Episodic Other gastrointestinal disorders (2 sources) Constipation, unspecified; Translations: [Constipation, unspecified] 03-13-2024 Episodic Other nervous system disorders (11 sources) Sleep-wake schedule disorder, delayed phase type; [...] Chronic Other nutritional; endocrine; and metabolic disorders (19 sources) Body mass index 30+ - obesity; [...] apnea, unspecified] 11-19-2021 Chronic Residual codes; unclassified (11 sources) Insomnia; Translations: [Other insomnia] 03-13-2024 Chronic [...] Onset: 11-09-2021 Resolved: 11-09-2021 Chronic Thyroid disorders (7 sources) Disorder of thyroid gland; Translations: [Disorder of thyroid, unspecified] 11-02-2023 Episodic Unclassified (1 source) ENCOUNTER OPENED IN ERROR Unclassified (3 sources) CONTACT W/AND (SUSP) EXPOS COVID-19; Translations: [CONTACT W/AND (SUSP) EXPOS COVID-19] Onset: 12-04-2022 Unclassified (1 source) Diarrhea, unspecified; Translations: [Diarrhea, unspecified] Onset: 08-08-2023 Urinary tract infections (8 sources) Recurrent urinary tract infection; Translations: [Urinary tract infection, site not specified] 11-19-2021 Episodic Viral infection (2 sources) Herpes zoster; Translations: [Zoster without complications] 04-16-2024 Episodic Past or Other Problems Problem Classification [...] Test Name Value Interpretation Reference Range Facility [facility] 12-29-2023 L Specimen: [id number] Received: 12/29/23 Status: SOUMariaelena Cardona Num: [id number] Spec Type: Surgical Subm Dr: Maddi Winston MD Tissues: A Breast Core CALCIFICATIONS (LT BREAST LIQ MICRO) Procedures: HE/12, Gross/Micro L4 Age/ Patient Sex Location Account Attending Physician Isabelle Hewitt I 48/F LABELL [id number] Oswald Harrington SPEC NUM: [id number] RECD: 12/29/23 STATUS: SOUMariaelena REQ NUM: [id number] ANGEL LUIS: 12/29/23- SUBM DR: Maddi Winston MD ENTERED: 12/29/[address] [facility] DR: Miriam Monterroso SPEC TYPE: Surgical DEPT: OLGA VILLALOBOS ORDERED: [...] Clinical history: Stereotactic breast BX CPT Codes 26022 ---- ---- Specimen: [id number] Received: 12/29/23 Status: MALCOLM Cardona Num: [id number] Spec Type: Surgical Subm Dr: Maddi Winston MD Tissues: A Breast Core CALCIFICATIONS (LT BREAST LIQ MICRO) Procedures: , Gross/Micro L4 ---- Patient: Isabelle Hewitt I [id number] (Continued) ---- Signed (signature on file) Jef Yanes MD 01/02/24 1630 Normal [facility] XR KUBon 12-14-2023 XR KUB [facility] [place] [address] XRay Report Signed Patient: Isabelle Hewitt I MR#: [id number] : 1975 Acct:[id number] Age/Sex: 48 / F ADM Date: 12/14/23 Loc: Room: Type: [facility] Attending Dr: Majo Lyman APRN Copies to: [...] 12/14/231825 Signed By: 12/16/23 0907 Normal [facility] XR KUB [facility] Main [place] [id number] XRay Report Signed Patient: Isabelle Hewitt I MR#: [id number] : 1975 Acct:[id number] Age/Sex: 48 / F ADM Date: 12/14/23 Loc: Room: Type: [facility] Attending Dr: Wiley Mcmanus MD Copies to: [...] By: 12/14/231826 Normal [facility] Laboratory - Microbiology an d Antimicrobial susceptibilityOrdered By: Louise Johnson on 10-14-2023 SARS-CoV-2 (COVID-19) RNA JOHNNIE+probe Ql (Unsp spec) [facility] CT UROGRAMon 10-01-2023 CT UROGRAM EXAMINATION: [...] Oliver Walker MD 10/01/23 Final result Normal [facility] Creatinine w/GFRon Creatinine [Mass/Vol] 0.7 mg/dL Normal 0.5-0.9 [facility] Comment on above: Performed By: #### C REG #### [facility] [address] [place] [address] Equip Tech: Wiley Wheatley MD GFR/1.73 sq M.predicted among non-blacks MDRD (S/P/Bld) [Vol rate/Area] mL/min/{1.73_m2} Normal >60 [facility] Comment on above: Result Comment: These [...] secretion. Performed By: #### C REG #### [facility] [address] [place] [address] Equip Tech: Wiley Wheatley MD Cult,Urineon 09-16-2023 Cult,Urine Specimen Description .CLEAN CATCH URINE Culture NO SIGNIFICANT GROWTH Report Status FINAL 09/16/2023 Normal [facility] Comment on above: Performed By: #### U RC #### [facility] [address] [place] [address] [id number] Equip Tech: Taiwo Wray MD [facility] [address] [place] [address] Equip Tech: Wiley Wheatley MD HCG ( test) Sylvia oscar Ql (U)Ordered By: David Martinez on 08-08-2023 HCG ( test) Ql (U) Negative [facility] HCG,Urineon 08-08-2023 Beta HCG ( test) Ql (U) Negative Normal [facility] Comment on above: Result Comment: PERF ORMED BY: [place] [address] PATHOLOGIST MARINE ELECTRICIAN HELPER CHIRS GUERRERO M.D. Performed By: #### U HCG #### [place] [id number] [place] 08-08-2023 L -- ---- Specimen: [id number] Received: 08/08/23 Status: MALCOLM Kaela Num: [id number] Spec Type: Surgical Subm Dr: David Martinez MD Tissues: A Colon Biopsy (RNDM COL BX) Procedures: GREGG/2, Gross/Micro L4 ---- Age/ Patient Sex Location Account Attending Physician ---- Isabelle Hewitt I 48/F [id number] David Martinez MD ---- SPEC NUM: [id number] RECD: 08/08/23 STATUS: MALCOLM CARDONA NUM: [id number] ANGEL LUIS: 08/08/23- DR: David Matrinez MD ENTERED: 08/08/[address]: SPEC TYPE: Surgical DEPT: S ENTERED BY: [id number] RECV BY: [id number] ORDERED: GREGG/Nella, Gross/Micro L4 ORDERED: GREGG/2, Gross/Micro L4 Pathological Diagnosis Random colonic biopsies: [...] microscopic examination confirms the diagnosis. CPT Codes 45899 ---- ---- Specimen: [id number] Received: 08/08/23 Status: MALCOLM Cardona Num: [id number] Spec Type: Surgical Subm Dr: David Martinez MD Tissues: A Colon Biopsy (RNDM COL BX) Procedures: GREGG/Nella, Gross/Micro L4 ---- Patient: Isabelle Hewitt I [id number] (Continued) ---- Signed (signature on file) Desmond Sarah MD 08/09/23 0957 Normal [facility] Amylaseon 06-30-2023 Amylase [Catalytic activity/Vol] 42 U/L Normal 29-103 [facility] Comment on above: Order Comment: Reaso n for Exam Diarrhea, unspecified type Performed By: #### C ALPROTECT, HIV SCREEN, CELIAC, ELASTASE STOOL #### [facility] , #### CRP, LIPASE, TSH3, ROSHNI, ESR #### [facility] [address] [place] [address] [place] Amylase [Enzymatic activity/ volume] in Serum or PlasmaOrdered By: Majo Lyman on 06-30-2023 Amylase [Catalytic activity/Vol] 42 U/L 29-103 [facility] C reactive protein [Mass/vol ume] in Serum or PlasmaOrdered By: Majo Lyman on 06-30-2023 CRP [Mass/Vol] < 0.5 mg/dL 0.0-0.5 [facility] C-Reactive Proteinon 023 CRP [Mass/Vol] mg/L Normal 0.0-0.5 [facility] Comment on above: Order Comment: Reaso n for Exam Diarrhea, unspecified type Performed By: #### C ALPROTECT, HIV SCREEN, CELIAC, ELASTASE STOOL #### [facility] , #### CRP, LIPASE, TSH3, ROSHNI, ESR #### [facility] [address] [place] [address] [place] Calprotectin [Mass/mass] in StoolOrdered By: Majo Lyman on 06-30-2023 Calprotectin (Stl) [Mass/Mass] 36 ug/g 0-120 [facility] Comment on above: Concentration Interp retation Follow-Up< 5 - 50 ug/g Normal None>50 -120 ug/g Borderline Re-evaluate in 4-6 weeks >120 ug/g Abnormal Repeat as clinically indicatedPerformed at: - [facility] [id number] Director: Andrew Cameron MD, Phone: [phone] Calprotectin, Fecalon 2022 Calprotectin, Fecal 36 Normal 0-120 [facility] Comment on above: Order Comment: Reaso n for Exam Diarrhea, unspecified type Result Comment: Conc entration Interpretation Follow-Up < 5 - 50 ug/g Normal None >50 -120 ug/g Borderline Re-evaluate in 4-6 weeks >120 ug/g Abnormal Repeat as clinically indicated Performed at: [employer] [facility] [id number] Equip Tech: Andrew Cameron MD, Phone: [phone] PERFORMED BY: [place] [address] PATHOLOGIST MARINE ELECTRICIAN HELPER CHRIS GUERRERO M.D. Performed By: #### C ALPROTECT, HIV SCREEN, CELIAC, ELASTASE STOOL ####[facility] ,#### CRP, LIPASE, TSH3, ROSHNI, ESR ####[facility] Celiacon 06-30-2023 Deamidated Gliadin Abs, IgA 7 Normal 0-19 [facility] Comment on above: Order Comment: Reaso n for Exam Diarrhea, unspecified type Result Comment: Nega tive 0 - 19 Weak Positive 20 - 30 Moderate to Strong Positive >30 Performed By: #### C ALPROTECT, HIV SCREEN, CELIAC, ELASTASE STOOL #### [facility] , #### CRP, LIPASE, TSH3, ROSHNI, ESR #### [facility] [address] Deamidated Gliadin Abs, IgG 2 Normal 0-19 [facility] Comment on above: Order Comment: Reaso n for Exam Diarrhea, unspecified type Result Comment: Nega tive 0 - 19 Weak Positive 20 - 30 Moderate to Strong Positive >30 Performed By: #### C ALPROTECT, HIV SCREEN, CELIAC, ELASTASE STOOL #### [facility] , #### CRP, LIPASE, TSH3, ROSHNI, ESR #### [address] Endomysial Antibody IgA Negative Normal Negative T he [facility] Comment on above: Order Comment: Reaso n for Exam Diarrhea, unspecified type Performed By: #### C ALPROTECT, HIV SCREEN, CELIAC, ELASTASE STOOL #### [facility] , #### CRP, LIPASE, TSH3, ROSHNI, ESR #### [place] [address] [place] Immunoglobulin A, Qn, Serum 505 mg/dL High 87-352 [facility] Comment on above: Order Comment: Reaso n for Exam Diarrhea, unspecified type Result Comment: Perf ormed at: - [facility] [place] [id number] Equip Tech: Fran Guthrie PhD, Phone: [phone] Performed By: #### C ALPROTECT, HIV SCREEN, CELIAC, ELASTASE STOOL #### [facility] , #### CRP, LIPASE, TSH3, ROSHNI, ESR #### [address] T-Transglutaminase (tTG) IgA <2 Normal 0-3 [facility] Comment on above: Order [...] #### CRP, LIPASE, TSH3, ROSHNI, ESR #### [address] T-Transglutaminase (tTG) IgG <2 Normal 0-5 [facility] Comment on above: Order Comment: Reaso n for Exam Diarrhea, unspecified type Result Comment: Nega tive 0 - 5 Weak Positive 6 - 9 Positive >9 Performed By: #### C ALPROTECT, HIV SCREEN, CELIAC, ELASTASE STOOL #### [facility] , #### CRP, LIPASE, TSH3, ROSHNI, ESR #### [facility] [address] [place] [address] Elastase.pancreatic [Mass/ma ss] in StoolOrdered By: Majo Lyman on 06-30-2023 Elastase.pancreatic (Stl) [Mass/Mass] 327 >200 [facility] Comment on above: Result Units: ug Nighat st./g Severe Pancreatic Insufficiency: <100 Moderate Pancreatic Insufficiency: 100 - 200 Normal: >200Performed at: [facility] [address] [id number] Director: Andrew Cameron MD, Phone: [phone] Erythrocyte Sedimentation Ra zari 06-30-2023 ESR (Bld) [Velocity] 51 mm/h High 0-19 [facility] Comment on above: Order Comment: Reaso n for Exam Diarrhea, unspecified type Result Comment: PERF ORMED BY: [place] [address] PATHOLOGIST MARINE ELECTRICIAN HELPER CHRIS GUERRERO M.D. Performed By: #### C ALPROTECT, HIV SCREEN, CELIAC, ELASTASE STOOL #### [facility] , #### CRP, LIPASE, TSH3, ROSHNI, ESR #### [facility] [address] [place] [address] Erythrocyte sedimentation ra te by Photometric methodOrdered By: Majo Lyman on 06-30-2023 ESR Photometric method (Bld) [Velocity] 51 mm/hr 0-19 [facility] HIV 1/O/2 Antigen/Antibodyon 06-30-2023 HIV Screen 4th Generation Non-Reactive Normal Non Reactive [facility] Comment on above: Order Comment: Reaso n for Exam Diarrhea, unspecified type Result Comment: HIV Negative HIV-1/HIV-2 antibodies and HIV-1 p24 antigen were NOT detected. There is no laboratory evidence of HIV infection. Performed at: [facility] [address] [place], [place] [id number] Equip Tech: Fran Guthrie PhD, Phone: [phone] PERFORMED BY: [place] [address] PATHOLOGIST MARINE ELECTRICIAN HELPER CHRIS GUERRERO M.D. Performed By: #### C ALPROTECT, HIV SCREEN, CELIAC, ELASTASE STOOL ####[facility] ,#### CRP, LIPASE, TSH3, ROSHNI, ESR ####[address] HIV 1 and HIV-2 antibody ass ay with HIV-1 p24 antigen detectionOrdered By: Majo Lyman on 06-30-2023 HIV 1+2 Ab+HIV1 p24 Ag IA Ql Non-Reactive Non Reactive [facility] Comment on above: HIV NegativeHIV-1/HI V-2 antibodies and HIV-1 p24 antigen were NOTdetected. There is no laboratory evidence of HIV infection.Performed at: [facility] [address] [id number] Director: Fran Guthrie PhD, Phone: [phone] IgA [Mass/volume] in Serum o r PlasmaOrdered By: Majo Lyman on 06-30-2023 IgA [Mass/Vol] 505 mg/dL 87-352 [facility] Comment on above: Performed at: [facility] [address] [id number] Director: Fran Guthrie PhD, Phone: [phone] Lipaseon 06-30-2023 Lipase [Catalytic activity/Vol] 45.0 U/L Normal 11.0-82.0 [facility] Comment on above: Order Comment: Reaso n for Exam Diarrhea, unspecified type Performed By: #### C ALPROTECT, HIV SCREEN, CELIAC, ELASTASE STOOL #### [facility] , #### CRP, LIPASE, TSH3, ROSHNI, ESR #### [facility] [address] Lipase [Enzymatic activity/v olume] in Serum or PlasmaOrdered By: Majo Lyman on 06-30-2023 Lipase [Catalytic activity/Vol] 45.0 U/L 11.0-82.0 [facility] No Panel InformationOrdered By: Majo Lyman on 06-30-2023 Endomysial IgA Antibody Negative Negative [facility] Pancreatic Elastase, Stoolon 06-30-2023 Pancreatic Elastase, Stool 327 Normal >200 [facility] Comment on above: Order Comment: Reaso n for Exam Diarrhea, unspecified type Result Comment: Resu lt Units: ug Elast./g Severe Pancreatic Insufficiency: <100 Moderate Pancreatic Insufficiency: 100 - 200 Normal: >200 Performed at: [facility] [address] [id number] Equip Tech: Andrew Cameron MD, Phone: [phone] PERFORMED BY: [facility] [address] [place] [address] PATHOLOGIST MARINE ELECTRICIAN HELPER CHRIS GUERRERO M.D. Performed By: #### C ALPROTECT, HIV SCREEN, CELIAC, ELASTASE STOOL ####[facility] ,#### CRP, LIPASE, TSH3, ROSHNI, ESR ####[facility] Serum gliadin peptide IgA an tibody assay (units/volume)Ordered By: Majo Lyman on 06-30-2023 Gliadin peptide IgA Qn (S) 7 units 0-19 [facility] Comment on above: Negative 0 - 19 Weak Positive 20 - 30 Moderate to Strong Positive >30 Serum gliadin peptide IgG an tibody assay (units/volume)Ordered By: Majo Lyman on 06-30-2023 Gliadin peptide IgG Qn (S) 2 units 0-19 [facility] Comment on above: Negative 0 - 19 Weak Positive 20 - 30 Moderate to Strong Positive >30 Serum tissue transglutaminas e (tTG) IgA antibody assay (units/volume)Ordered By: Majo Lyman on 06-30-2023 tTG IgA Qn (S) <2 U/mL 0-3 [facility] Comment on above: Negative 0 - 3 Weak Positive 4 - 10 Positive >10 Tissue Transglutaminase (tTG) has been identified as the endomysial antigen. Studies have demonstr- ated that endomysial IgA antibodies have over 99% specificity for gluten sensitive enteropathy. Serum tissue transglutaminas e (tTG) IgG antibody assay (units/volume)Ordered By: Majo Lyman on 06-30-2023 tTG IgG Qn (S) <2 U/mL 0-5 [facility] Comment on above: Negative 0 - 5 Weak Positive 6 - 9 Positive >9 Thyroid Stimulating Hormoneo n 06-30-2023 TSH Qn 0.57 m[IU]/L Normal 0.45-5.33 [facility] Comment on above: Order Comment: Reaso n for Exam Diarrhea, unspecified type Result Comment: PERF ORMED BY: [place] [address] PATHOLOGIST MARINE ELECTRICIAN HELPER CHRIS GUERRERO M.D. Performed By: #### C ALPROTECT, HIV SCREEN, CELIAC, ELASTASE STOOL #### [facility] , #### CRP, LIPASE, TSH3, ROSHNI, ESR #### [facility] [address] Thyrotropin [Units/volume] i n Serum or PlasmaOrdered By: Majo Lyman on 06-30-2023 TSH Qn 0.57 m[IU]/L 0.45-5.33 [facility] COVID + FLU Quick Testingon 06-07-2023 SARS-CoV-2 (COVID-19) RNA JOHNNIE+probe Ql (Unsp spec) Negative [facility] Other COVID + FLU Quick Testing Negative [facility] Other Quick Strepon 06-07-2023 S. pyogenes Org specific cx Ql (Throat) Negative [facility] Other Quick Strep [facility] Other XR ABDOMEN (KUB) (SINGLE AP VIEW)on [...] Perry Neely DO 03/12/23 Final result Normal [facility] Telephone Encounteron 2022 Testing And Regulating Technician Authentication Interface Message Text Situation: Patient called in Background: She says that she wanted to let provider know taht she would be following a different dr to his new practice for follow up treatment Assessment: NA Recommendation: Please advise and george patient if needed at Phone numbers Thank You Normal [facility] Testing And Regulating Technician Authentication Interface Message Text Called and left voicemail for patient. Post-op Home Sleep Test reviewed from [facility], and there is considerable improvement. Pre-op AHI is 102, now down to 31. Pre-op O2 Carlene of 71%, now up to 82%. However, still with considerable desat time. There are notes from Dr. Moreno evaluating for INSPIRE I presume, but nothing since November. Asked patient for call back or [employer] message with if she has been able to continue with Dr. Moreno at his new office, or [facility] Normal [facility] MG MAMM SCREEN 3D LEEANNE CADon 01-18-2023 MG MAMM SCREEN 3D LEEANNE CAD Patient: ISABELLE HEWITT I. Exam Date: 01/18/2023 : 1975 Gender:F Ordering : BRIAN KIRBY [facility] Admission #: [id number] Family : Order #: [id number] CLICK HERE TO VIEW EXAM RADIOLOGY REPORT [...] No Treatments None Family Cancers None LOCATION: [facility] BREAST COMPOSITION: Heterogeneously dense,which may obscure small [...] Winston M.D. on 01/19/2023 at 13:37 Normal [facility] Cult,Urineon 12-14-2022 Cult,Urine Specimen Description .CLEAN CATCH URINE Culture NO GROWTH Report Status FINAL 12/14/2022 Normal [facility] Comment on above: Performed By: #### U RC #### [address] [id number] Equip Tech: Taiwo Wray MD [facility] [address] [place] [address] [place] [address] Equip Tech: Wiley Wheatley MD Urinalysis w/ Microon 2022 Bacteria TRACE Abnormal NONE [facility] Comment on above: Performed By: #### U AMIC #### [facility] [address] [place] [address] [place] [address] Equip Tech: Wiley Wheatley MD Bilirubin, SemiQt,Ur Negative Normal NEG [facility] Comment on above: Performed By: #### U AMIC #### [facility] [address] [place] [address] Equip Tech: Wiley Wheatley MD Blood, Urine Negative Normal NEG [facility] Comment on above: Performed By: #### U AMIC #### [facility] [address] [place] [address] Equip Tech: Wiley Wheatley MD Clarity (U) Clear Normal CLEAR [facility] Comment on above: Performed By: #### U AMIC #### [facility] [address] [place] [address] [place] [place], [place] [id number] Equip Tech: Wiley Wheatley MD Color (U) Yellow Normal YEL [facility] Comment on above: Performed By: #### U AMIC #### [facility] [address] [place] [address] Dr. [place], [place] [phone] Equip Tech: Wiley Wheatley MD Epithelial cells LM Ql (Urine sed) 0 TO 2 Normal 0-25 [facility] Comment on above: Performed By: #### U AMIC #### [address] [place], [place] [phone] Equip Tech: Wiley Wheatley MD Glucose Ql (U) Negative Normal NEG [facility] Comment on above: Performed By: #### U AMIC #### [facility] [address] [place] [address] [place], [place] [address]383 Equip Tech: Wiley Wheatley MD Ketones Ql (U) Negative Normal NEG [facility] Comment on above: Performed By: #### U AMIC #### [facility] [address] [place] [address] Dr. [place], [place] [phone] Equip Tech: Wiley Wheatley MD Leukocyte esterase Test strip Ql (U) Negative Normal NEG [facility] Comment on above: Performed By: #### U AMIC #### [facility] [address] [place] [address] Dr. [place], [place] [phone] Equip Tech: Wiley Wheatley MD Nitrite,Ur Negative Normal NEG [facility] Comment on above: Performed By: #### U AMIC #### [facility] [address] [place] [address] [place] [address] Equip Tech: Wiley Wheatley MD PH,Ur 6.5 Normal 5.0-9.0 [facility] Comment on above: Performed By: #### U AMIC #### [facility] [address] [place], [place] [phone] Equip Tech: Wiley Wheatley MD Protein Ql (U) Negative Normal NEG [facility] Comment on above: Performed By: #### U AMIC #### [facility] [address] [place], [place] [phone] Equip Tech: Wiley Wheatley MD Spec. Brinnon,Ur <1.005 Low 1.010-1.020 [facility] Comment on above: Performed By: #### U AMIC #### [facility] [address] [place] [address] Dr[place], [place] [id number] Equip Tech: Wiley Wheatley MD Urine RBC's None Normal 0-2 [facility] Comment on above: Performed By: #### U AMIC #### [facility] [address] [place] [address] Dr. [place], [place] [phone] Equip Tech: Wiley Wheatley MD Urine WBC's None Normal 0-5 [facility] Comment on above: Performed By: #### U AMIC #### [facility] [address] [place] [address] Dr. [place], [place] [phone] Equip Tech: Wiley Wheatley MD Urobilinogen,Ur Normal Normal NORM [facility] Comment on above: Performed By: #### U AMIC #### [facility] [address] [place] [address] Dr. [place], [place] [phone] Equip Tech: Wiley Wheatley MD Urinalysis with Microscopico n 12-13-2022 Bacteria, UA TRACE Abnormal None [facility] Bilirubin Urine Negative NEGATIVE [facility] Color, UA Yellow Yellow [facility] Epithelial Cells UA 0 TO 2 [facility] Glucose Auto test strip (U) [Mass/Vol] Negative NEGATIVE [facility] Interpretation and review of laboratory results Abnormal [facility] Ketones (U) [Mass/Vol] Negative NEGATIVE [facility] Leukocyte esterase Auto test strip Ql (U) Negative NEGATIVE [facility] Nitrite Auto test strip Ql (U) Negative NEGATIVE [facility] Protein (U) [Mass/Vol] 6.5 mg/dL 5.0 - 9.0 [facility] Protein (U) [Mass/Vol] Negative NEGATIVE [facility] RBC clumps Auto (Urine sed) [#/Area] None [facility] Specific Brinnon, UA Low 1.010 - 1.020 [facility] Turbidity UA Clear Clear [facility] Urine Hgb Negative NEGATIVE [facility] Urobilinogen, Urine Normal Normal [facility] WBC, UA None [facility] Covid-19 PCR ([facility])on SARS-CoV-2 (COVID-19) RNA JOHNNIE+probe Ql (Unsp spec) Not detected Normal NOT DETECTED [facility] Comment on above: Result Comment: This test is not yet approved or cleared by the [place] FDA. When there are no FDA-approved or cleared tests available, and other criteria are met, FDA can make tests available under an emergency access mechanism called an Emergency Use Authorization (EUA). The EUA for this test is supported by the Grinder Machine Knife Setter of Health and Human Service's (HHS's) declaration [...] SARS-CoV-2. Performed By: #### C VDTB #### [facility] [address] [place] [address] Dr. Stephanie Gibbs INFLUENZA A AND B AGon 11-26 INFLUANEGH SEE BELOW Normal [facility] Comment on above: Result Comment: Nega tive for Flu A protein angiten. Infection due to Flu A cannot be ruled out. Flu A angiten in the sample may be below the detection limit of the test. Performed By: #### I NFLUAB #### [facility] [address] [place] [address] Dr. Stephanie Gibbs INFLUBNEGH SEE BELOW Normal [facility] Comment on above: Result Comment: Nega tive for Flu B protein antigen. Infection due to Flu B cannot be ruled out. Flu B antigen in the sample may be below the detection limit of the test. Performed By: #### I NFLUAB #### [facility] [address] [place] [address] Dr. Stephanie Gibbs INFLUENZA A AG Negative Normal NEGATIVE SEE COMMENT [facility] Comment on above: Performed By: #### I NFLUAB #### [facility] [address] [place] [address] Dr. Stephanie Gibbs INFLUENZA B AG Negative Normal NEGATIVE SEE COMMENT [facility] Comment on above: Performed By: #### I NFLUAB #### [facility] [address] [place] [address] Dr. Stephanie Gibbs SYMPTOMATIC COVID-19 ANTIGEN on 11-26-2022 EUA Statement SEE BELOW Normal The [facility] Comment on above: Result Comment: This [...] sooner. Performed By: #### C BC #### [facility] [address] [place] [address] Dr. Stephanie Gibbs SARS-CoV-2 (COVID-19) RNA JOHNNIE+probe Ql (Unsp spec) Negative Normal NEGATIVE [facility] Comment on above: Performed By: #### C BC #### [facility] [address] [place] [address] Dr. Stephanie Gibbs Telephone Encounteron 2022 Testing And Regulating Technician Authentication Interface Message Text Requesting sleep study results and next steps. Please advise. Normal [facility] CBC AUTO DIFFon 11-12-2022 BASO # 0.1 103/ul Normal 0.0-0.1 [facility] Comment on above: Performed By: #### C BC #### [facility] [address] [place] [address] Dr. Stephanie Gibbs Basophils/100 WBC (Bld) 0.9 % Normal 0.2-2.0 [facility] Comment on above: Performed By: #### C BC #### [facility] [address] [place] [address] Dr. Stephanie Gibbs EO # 0.3 103/ul Normal 0.0-0.7 [facility] Comment on above: Performed By: #### C BC #### [facility] [address] [place] [address] Dr. Stephanie Gibbs Eosinophils/100 WBC (Bld) 4.7 % Normal 0.9-7.0 [facility] Comment on above: Performed By: #### C BC #### [facility] [address] [place] [address] Dr. Stephanie Gibbs Erythrocyte distribution width (RBC) [Ratio] 13.4 % Normal 11.0-15.0 [facility] Comment on above: Performed By: #### C BC #### [facility] [address] [place] [address] Dr. Stephanie Gibbs Hematocrit (Bld) [Volume fraction] 43.0 % Normal 36.0-48.0 [facility] Comment on above: Performed By: #### C BC #### [facility] [address] [place] [address] Dr. Stephanie Gibbs Hemoglobin (Bld) [Mass/Vol] 13.9 g/dL Normal 12.0-16.0 [facility] Comment on above: Performed By: #### C BC #### [facility] [address] [place] [address] Dr. Stephanie Gibbs IG # 0.01 10e3/ul Normal 0.00-0.03 [facility] Comment on above: Performed By: #### C BC #### [facility] [address] [place] [address] Dr. Stephanie Gibbs IG % 0.2 % Normal 0.0-0.5 [facility] Comment on above: Performed By: #### C BC #### [facility] [address] [place] [address] Dr. Stephanie Gibbs LYMPH # 2.3 103/ul Normal 1.2-3.8 [facility] Comment on above: Performed By: #### C BC #### [facility] [address] [place] [address] Dr. Stephanie Gibbs Lymphocytes/100 WBC (Bld) 36.6 % Normal 20.5-60.0 [facility] Comment on above: Performed By: #### C BC #### [facility] [address] [place] [address] Dr. Stephanie Gibbs MANUAL DIFF REQ NO Normal [facility] Comment on above: Performed By: #### C BC #### [facility] [address] [place] [address] Dr. Stephanie Gibbs MCH (RBC) [Entitic mass] 29.7 pg Normal 26.7-34.0 [facility] Comment on above: Performed By: #### C BC #### [facility] [address] [place] [address] Dr. Stephanie Gibbs MCHC (RBC) [Mass/Vol] 32.3 g/dL Normal 29.9-35.2 [facility] Comment on above: Performed By: #### C BC #### [facility] [address] [place] [address] Dr. Stephanie Gibbs MCV (RBC) [Entitic vol] 91.9 fL Normal 81.0-99.0 [facility] Comment on above: Performed By: #### C BC #### [facility] [address] [place] [address] Dr. Stephanie Gibbs MONO # 0.5 103/ul Normal 0.3-0.8 [facility] Comment on above: Performed By: #### C BC #### [facility] [address] [place] [address] Dr. Stephanie Gibbs Monocytes/100 WBC (Bld) 8.3 % Normal 1.7-12.0 [facility] Comment on above: Performed By: #### C BC #### [facility] [address] [place] [address] Dr. Stephanie Gibbs NEUT # 3.2 103/ul Normal 1.4-6.5 [facility] Comment on above: Performed By: #### C BC #### [facility] [address] [place] [address] Dr. Stephanie Gibbs Neutrophils/100 WBC (Bld) 49.3 % Normal 43.0-75.0 [facility] Comment on above: Performed By: #### C BC #### [facility] [address] [place] [address] Dr. Stephanie Gibbs Platelet mean volume (Bld) [Entitic vol] 9.6 fL Normal 9.5-13.5 [facility] Comment on above: Performed By: #### C BC #### [facility] [address] [place] [address] Dr. Stephanie Gibbs PLT 250 103/ul Normal 150-450 [facility] Comment on above: Performed By: #### C BC #### [facility] [address] [place] [address] Dr. Stephanie Gibbs RBC 4.68 106/ul Normal 4.20-5.40 [facility] Comment on above: Performed By: #### C BC #### [facility] [address] [place] [address] Dr. Stephanie Gibbs WBC 6.4 103/ul Normal 4.0-11.0 [facility] Comment on above: Performed By: #### C BC #### [facility] [address] [place] [address] Dr. Stephanie Gibbs POINT OF CARE GLUCOSEon 10-21 Glucose [Mass/Vol] 97 mg/dL Normal 74-106 [facility] Comment on above: Performed By: #### P OCGLUC #### [facility] [address] [address] [address] Stephanie Gibbs PREG QUANT HCGon 11-12-2022 HCG QUANT 3 mIU/mL Normal [facility] Comment on above: Performed By: #### C BC #### [facility] [address] [address] [address] Stephanie Gibbs HCG RANGE SEE BELOW Normal [facility] Comment on above: Result Comment: 5-50 0.2-1 WEEK 50-500 1-2 WEEKS 100-5,000 2-3 WEEKS 500-10,000 3-4 WEEKS 1,000-50,000 4-5 WEEKS 10,000-100,000 5-6 WEEKS 15,000-200,000 6-8 WEEKS 10,000-100,000 2-3 MONTHS Performed By: #### C BC #### [facility] [address] [address] [address] Stephanie Gibbs Telephone Encounteron 2022 Testing And Regulating Technician Authentication Interface Message Text Opened in error Normal [facility] Telephone Encounteron 2022 Testing And Regulating Technician Authentication Interface Message Text Called patient and left voicemail. Advised that order for post-op PSG was faxed to [facility]. Left number to call to schedule study at her convenience ([phone]) Normal [facility] Progress Noteson 10-19-2022 Testing And Regulating Technician Authentication Interface Message Text CC: sleep disordered [...] residual base of tongue obstruction. Normal [facility] Telephone Encounteron 2022 Testing And Regulating Technician Authentication Interface Message Text PT calling back to check status of her [place] paperwork from [employer]. I verified the correct fax # PT was using ( [phone]) I called over to PS dept , spoke to Seferino and he stated to have the PT to send it to the e-mail address [email or web address] PT will put ATTN: to Dr. Clemow. PT asks to have the paperwork filled out HOLA as it it due soon ( PT didn't state a sate just that it was due) Please call PT once received Normal [facility] Telephone Encounteron 2022 Testing And Regulating Technician Authentication Interface Message Text Patient calling in to see if her FMLA papers were received. Paperwork not scanned into the chart at this time. Please call the patient with confirmation of receipt of the FMLA papers at [phone]. Thank you! Normal [facility] Progress Noteson 09-08-2022 Testing And Regulating Technician Authentication Interface Message Text Teaching Physician Note: [...] physician. Rikki Rodrigues DMD, MD Normal [facility] Telephone Encounteron 2022 Testing And Regulating Technician Authentication Interface Message Text PT calling in stating she will be sending new FMLA forms via fax tomorrow due to the library being closed today. PT states Dr. Rodrigues has to fill that paperwork out just like he did for [employer]. 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 Please call PT if any questions. PT was just seen on 08/30/22 Normal [facility] FREE T4on 09-02-2022 Free T4 [Mass/Vol] 1.01 ng/dL Normal 0.76-1.46 The [facility] Comment on above: Performed By: #### F T4 #### [facility] [address] [address] [address] Stephanie Gibbs TSHon 09-02-2022 TSH 0.745 uIU/mL Normal 0.358-3.740 The [facility] Comment on above: Performed By: #### T #### [facility] [address] [address] [address] Stephanie Gibbs Telephone Encounteron 2022 Testing And Regulating Technician Authentication Interface Message Text PT calling in stating she had new FMLA forms to be faxed to Dr. Rodrigues. PT stated her job was going through [employer] and now is going through [employer]. saw PT for surgery on 07/14. PT had a televisit follow up on 07/23, but has cancelled every other follow up on 08/02 , 08/13 AND 08/30. PT stated Dr. Rodrigues had her off work since 07/14/22-08/30/2022. Please see social media marketer- dates are different Please reach out to PT to discuss and when forms are ready to be filled out [phone] Normal [facility] Patient Instructionson 08-30 Testing And Regulating Technician Authentication Interface Message Text With clean hands massage gums under your upper lip daily at night time No food restrictions Follow up with your dentist We will contact your Sleep Center in [place] to have a Sleep Study completed in 1.5 months. Normal [facility] Progress Noteson 08-30-2022 Testing And Regulating Technician Authentication Interface Message Text [facility] [...] -Complete sleep study with Dr. Mcmanus in [place], [place] in 1.5 months -Follow up with patient's general dentist, Sinan Jones DDS for denture adjustment Follow-Up: After new sleep study Follow up sooner with new or worsening symptoms. Sinan Jones DDS [facility] [place] [address] Wiley Mcmanus MD [facility] [address] [place] [id number] Seferino Vaz [facility] Resident Normal [facility] Urinalysis with Microscopico n 08-12-2022 Bacteria, UA 2+ Abnormal None [facility] Bilirubin Urine Negative NEGATIVE [facility] Color, UA Yellow Yellow [facility] Epithelial Cells UA 0 TO 2 [facility] Glucose, Ur Negative NEGATIVE [facility] Interpretation and review of laboratory results [...] TO 2 [facility] Specific [place], UA High 1.010 - 1.020 [facility] Turbidity UA Cloudy Abnormal Clear [facility] Urine Hgb 1+ Abnormal NEGATIVE [facility] Urobilinogen, Urine Normal Normal [facility] WBC, UA 50 TO 100 [facility] Telephone Encounteron 2021 Testing And Regulating Technician Authentication Interface Message Text Called the patient twice this week to remind her regarding the follow up this Tuesday (08/13/22) and to offer to follow up sooner if she prefers. Patient did not answer. Message was left. Also attempted to call the alternative work number listed. Was unable to reach the patient at this number. Jerel Villegas DDS, [facility] PGY4 [phone] Normal [facility] Telephone Encounteron 2021 Testing And Regulating Technician Authentication Interface Message Text Called pt. No answer. LVM with callback instructions. Per Dr. Rodrigues, we will not write any work excuse notes or prescribe any pain meds until pt is seen in person for follow up. Oliver Rogers, CHAU Normal [facility] Testing And Regulating Technician Authentication Interface Message Text Pt called because [...] options if that is the case. Email: [email or web address] Contact pt @[phone] for questions/concerns Normal [facility] Telephone Encounteron 2021 Testing And Regulating Technician Authentication Interface Message Text Patient called in [...] Please call the patient to advise at [phone]. Thank you! Normal [facility] Telephone Encounteron 2021 Testing And Regulating Technician Authentication Interface Message Text Spoke with patient and instructed her to come in earlier Tuesday afternoon, preferably between 1:00 and 2:00 pm. Also reminded her to bring dentures with her as we would like to assess her occlusion with dentures in place. Patient voiced understanding and agreed to arrive early for her appointment on Tuesday. Mikal Rodgers DMD environmental protection economist, PGY-3 Team Pager: [phone] Normal [facility] Telephone Encounteron 2021 Testing And Regulating Technician Authentication Interface Message Text Patient called stating she needs a back to work slip. Requested a call back [phone]. Thank you! Normal [facility] Progress Noteson 07-23-2022 Testing And Regulating Technician Authentication Interface Message Text [facility] [...] new or worsening symptoms. Mikal Rodgers DMD environmental protection economist, PGY-3 Team Pager: [phone] Normal [facility] Progress Noteson 07-19-2022 Testing And Regulating Technician Authentication Interface Message Text Initial pre-surgical workup photos: Normal [facility] BASIC METABOLIC PANELon - Anion gap [Moles/Vol] 13 mmol/L Normal 10-20 [facility] Comment on above: Performed By: #### M MILO Alan, CH8 #### [facility] [address] [place] [address], [phone] Calcium [Mass/Vol] 7.9 mg/dL Low 8.4-10.4 [facility] Comment on above: Performed By: #### MILO Mattson CH8 #### [facility] [address] [place] [address], Chloride [Moles/Vol] 105 mmol/L Normal 97-111 [facility] Comment on above: Performed By: #### MLIO Mattson CH8 #### [facility] [address] [place] [address], CO2 [Moles/Vol] 30 mmol/L Normal 21-30 [facility] Comment on above: Performed By: #### MILO Mattson CH8 #### [facility] [address] [place] [address], Creatinine [Mass/Vol] 0.84 mg/dL Normal 0.50-1.10 [facility] Comment on above: Performed By: #### MILO Mattson CH8 #### [facility] [address] [place] [address], ESTIMATED GFR (CKD-EPI) 86 mL/min/1.73sqm Normal >=60 [facility] Comment on above: Result Comment: 2020 [...] Inclusion of Race in Diagnosing Kidney Disease. Vietnamese Journal of Kidney Diseases 2021;79(2):268-88.e1. 2. N Engl J Med 1 Vol. 385 Issue 19 Pages 8790-8937 Performed By: #### MILO Mattson CH8 #### [facility] [address] [place] [address], Glucose [Mass/Vol] 85 mg/dL Normal 68-110 [facility] Comment on above: Performed By: ###MILO Sierra CH8 #### [facility] [address] [place], [place], Potassium [Moles/Vol] 3.7 mmol/L Normal 3.3-5.3 [facility] Comment on above: Performed By: #### MILO Mattson CH8 #### [facility] [address] [place], [place], Sodium [Moles/Vol] 144 mmol/L Normal 135-148 [facility] Comment on above: Performed By: #### MILO Mattson CH8 #### [facility] [address] [place], [place], Urea nitrogen [Mass/Vol] 10 mg/dL Normal 8-22 [facility] Comment on above: Performed By: #### MILO Mattson CH8 #### [facility] [address] [place], [place], Basic metabolic 2000 panelon 07-17-2022 Anion gap [Moles/Vol] 13 mmol/L 10 - 20 [facility] Calcium [Mass/Vol] 7.9 mg/dL Low 8.4 - 10. 4 mg/dL [facility] Chloride [Moles/Vol] 105 mmol/L 97 - 11 1 mmol/L [facility] CO2 [Moles/Vol] 30 mmol/L 21 - 30 mmol/L [facility] Creatinine [Mass/Vol] 0.84 mg/dL 0.50 - 1.10 mg/dL [facility] GFR/1.73 sq M.predicted MDRD (S/P/Bld) [Vol rate/Area] 86 mL/min/{1.73_m2} [facility] Comment on above: 2020 CKD EPI [...] Inclusion of Race in Diagnosing Kidney Disease. Vietnamese Journal of Kidney Diseases 2021;79(2):268-88.e1. 2. N Engl J Med 1 Vol. 385 Issue 19 Pages 0829-9833 Glucose [Mass/Vol] 85 mg/dL 68 - 110 [...] 10.8 g/dL Low 12.0 - 15.0 g/dL [facility] Interpretation and review of laboratory results Abnormal [facility] MCH (RBC) [Entitic mass] 32.5 pg 26.0 - 34.0 pg [facility] MCHC (RBC) [Mass/Vol] 32.9 g/dL 32.0 - 35.9 g/dL [facility] MCV (RBC) [Entitic vol] 99 fL 80 - 100 fL [facility] Platelet mean volume (Bld) [Entitic vol] 8.0 fL 7.5 - 11.2 fL [facility] Platelets (Bld) [#/Vol] 214 10*3/uL 150 - 400 K/uL [facility] RBC (Bld) [#/Vol] 3.33 10*6/uL Low [facility] WBC (Bld) [#/Vol] 8.7 10*3/uL 4.5 - 11.5 K/uL [facility] COMPLETE BLOOD COUNTon 07-17 Erythrocyte distribution width (RBC) [Ratio] 13.7 % Normal 11.5-14.5 The [facility] Comment on above: Performed By: #### MILO Mattson CH8 #### [facility] [address] [place] [address], [id number] Hematocrit (Bld) [Volume fraction] 32.8 % Low 36.0-46.0 The [facility] Comment on above: Performed By: #### MILO Mattson CH8 #### [facility] [address] [place] [address], Hemoglobin (Bld) [Mass/Vol] 10.8 g/dL Low 12.0-15.0 The [facility] Comment on above: Performed By: #### MILO Mattson, RAQUEL8 #### [facility] [address] [place] [address], MCH (RBC) [Entitic mass] 32.5 pg Normal 26.0-34.0 The [facility] Comment on above: Performed By: #### MILO Mattson CH8 #### [facility] [address] [place] [address], MCHC (RBC) [Mass/Vol] 32.9 g/dL Normal 32.0-35.9 The [facility] Comment on above: Performed By: #### MILO Mattson CH8 #### [facility] [address] [place] [address], MCV (RBC) [Entitic vol] 99 fL Normal 80-100 T [facility] Comment on above: Performed By: #### MILO Mattson CH8 #### [facility] [address] [place] [address], Platelet mean volume (Bld) [Entitic vol] 8.0 fL Normal 7.5-11.2 The [facility] Comment on above: Performed By: #### MILO Mattson CH8 #### [facility] [address] [place] [address], Platelets (Bld) [#/Vol] 214 10*3/uL Normal 150-400 The [facility] Comment on above: Performed By: #### MILO Mattson CH8 #### [facility] [address] [place], [place], RBC (Bld) [#/Vol] 3.33 10*6/uL Low 4.00-5.20 The [facility] Comment on above: Performed By: #### MILO Mattson, ARCHIE #### [facility] [address] [place] [address], WBC (Bld) [#/Vol] 8.7 10*3/uL Normal 4.5-11.5 [facility] Comment on above: Performed By: #### MILO Mattson CH8 #### [facility] [address], [place], Care Plan Noteon 07-17-2022 Testing And Regulating Technician Authentication Interface Message Text Problem: Discharge Planning: Goal: Discharge needs of the adult patient will be met 07/17/2022 1233 by Penny Brown, CALISTA Outcome: Completed 07/17/2022 0743 by Penny Brown, CALISTA Outcome: Progressing Discharge instructions provided to patient with paper scripts and tylenol MEDS to beds. No questions about instructions or medications at this time. IV removed and intact upon removal. Additional home care supplies provided. Patient discharged home with family member. Normal [facility] Testing And Regulating Technician Authentication Interface Message Text Problem: Routine Care: [...] will be met Outcome: Progressing Normal [facility] GLUCOSE, FINGERSTICK-IN OFFI CEon 07-17-2022 Glucose [Mass/Vol] 81 mg/dL Normal 68-110 [facility] Comment on above: Performed By: #### 8 2948 ####NURSING GLUCOSE [id number] [place], [address] Glucose [Mass/Vol] 81 mg/dL 68 - 110 mg/dL [facility] Interpretation and review of laboratory results Normal [facility] Glucose [Mass/Vol] 93 mg/dL Normal 68-110 [facility] Comment on above: Performed By: #### MILO Mattson CH8 #### [facility] [address] [place] [address], Glucose [Mass/Vol] 93 mg/dL 68 - 110 mg/dL [facility] Interpretation and review of laboratory results Normal [facility] MAGNESIUMon 07-17-2022 Magnesium [Mass/Vol] 1.8 mg/dL Normal 1.6-2.8 The [facility] Comment on above: Performed By: #### MILO Mattson CH8 #### [facility] [address] [place] [address], Interpretation and review of laboratory results Normal [facility] Magnesium [Mass/Vol] 1.8 mg/dL 1.6 - 2 .8 mg/dL [facility] No Panel Informationon 07-17 Interpretation and review of laboratory results Abnormal [facility] PHOSPHORUSon 07-17-2022 Phosphate [Mass/Vol] 2.4 mg/dL Low 2.5-4.8 The [facility] Comment on above: Performed By: #### MILO Mattson CH8 #### [facility] [address] [place] [address], Phosphate [Mass/Vol] 2.4 mg/dL Low 2.5 - 4 .8 mg/dL [facility] Progress Noteson 07-17-2022 Testing And Regulating Technician Authentication Interface Message Text Patient refused: Ditropan, and Hs Fingerstick. Normal The [facility] BASIC METABOLIC PANELon 06-23 Anion gap [Moles/Vol] 14 mmol/L Normal 10-20 The [facility] Comment on above: Performed By: #### MILO Mattson CH8 #### [facility] [address] [place] [address], Calcium [Mass/Vol] 8.0 mg/dL Low 8.4-10.4 The [facility] Comment on above: Performed By: #### MILO Mattson CH8 #### [facility] [address] [place], [place], Chloride [Moles/Vol] 103 mmol/L Normal 97-111 [facility] Comment on above: Performed By: #### MILO Mattson CH8 #### [facility] [address] [place], [place], CO2 [Moles/Vol] 31 mmol/L High 21-30 [facility] Comment on above: Performed By: #### MILO Mattson CH8 #### [facility] [address] [place], [place], Creatinine [Mass/Vol] 0.79 mg/dL Normal 0.50-1.10 [facility] Comment on above: Performed By: ###MILO Sierra CH8 #### [facility] [address] [place], [place], ESTIMATED GFR (CKD-EPI) 93 mL/min/1.73sqm Normal >=60 [facility] Comment on above: Result Comment: 2020 [...] Inclusion of Race in Diagnosing Kidney Disease. Vietnamese Journal of Kidney Diseases 2021;79(2):268-88.e1. 2. N Engl J Med 2020 Vol. 385 Issue 19 Pages 4836-3066 Performed By: #### MILO Mattson CH8 #### [facility] [address] [place], [place], Glucose [Mass/Vol] 96 mg/dL Normal 68-110 [facility] Comment on above: Performed By: #### MILO Mattson CH8 #### [facility] [address] [place], [place], Potassium [Moles/Vol] 4.0 mmol/L Normal 3.3-5.3 [facility] Comment on above: Performed By: #### M MILO Alan CH8 #### [facility] [address] [place], [place], Sodium [Moles/Vol] 144 mmol/L Normal 135-148 The [facility] Comment on above: Performed By: #### MILO Mattson CH8 #### [facility] [address] [place], [place], Urea nitrogen [Mass/Vol] 16 mg/dL Normal 8-22 [facility] Comment on above: Performed By: #### MILO Mattson CH8 #### [facility] [address] [place], [place], Basic metabolic 2000 panelon 07-16-2022 Anion [...] (S/P/Bld) [Vol rate/Area] 93 mL/min/{1.73_m2} - PINF [facility] Comment on above: 2020 CKD EPI [...] Inclusion of Race in Diagnosing Kidney Disease. Vietnamese Journal of Kidney Diseases 202;79(2):268-88.e1. 2. N Engl J Med 2020 Vol. 385 Issue 19 Pages 7577-3410 Glucose [Mass/Vol] 96 mg/dL 68 - 110 mg/dL [facility] Potassium [Moles/Vol] 4.0 mmol/L 3.3 - 5.3 mmol/L [facility] Sodium [Moles/Vol] 144 mmol/L 135 - 148 mmol/L [facility] Urea nitrogen [Mass/Vol] 16 mg/dL 8 - 22 mg/dL [facility] CBC panel Auto (Bld)on 07-16 Erythrocyte distribution width (RBC) [Ratio] 13.5 % 11.5 - 14.5 % [facility] Hematocrit (Bld) [Volume fraction] 32.8 % Low 36.0 - 46.0 % [facility] Hemoglobin (Bld) [Mass/Vol] 10.9 g/dL Low 12.0 - 15.0 g/dL [facility] Interpretation and review of laboratory results Abnormal [facility] MCH (RBC) [Entitic mass] 32.7 pg 26.0 - 34.0 pg [facility] MCHC (RBC) [Mass/Vol] 33.2 g/dL 32.0 - 35.9 g/dL [facility] MCV (RBC) [Entitic vol] 98 fL 80 - 100 fL [facility] Platelet mean volume (Bld) [Entitic vol] 9.0 fL 7.5 - 11.2 fL [facility] Platelets (Bld) [#/Vol] 217 10*3/uL 150 - 400 K/uL [facility] RBC (Bld) [#/Vol] 3.33 10*6/uL Low [facility] WBC (Bld) [#/Vol] 16.3 10*3/uL High 4.5 - 11.5 K/uL [facility] COMPLETE BLOOD COUNTon 07-16 Erythrocyte distribution width (RBC) [Ratio] 13.5 % Normal 11.5-14.5 The [facility] Comment on above: Performed By: #### C BC ####S PATHOLOGY [id number] [place], [place], Hematocrit (Bld) [Volume fraction] 32.8 % Low 36.0-46.0 The [facility] Comment on above: Performed By: #### C BC ####S PATHOLOGY [id number] [place], [place], Hemoglobin (Bld) [Mass/Vol] 10.9 g/dL Low 12.0-15.0 The [facility] Comment on above: Performed By: #### C BC ####[facility] [id number] [place], MCH (RBC) [Entitic mass] 32.7 pg Normal 26.0-34.0 The [facility] Comment on above: Performed By: #### C BC ####[facility] [id number] [place], MCHC (RBC) [Mass/Vol] 33.2 g/dL Normal 32.0-35.9 The [facility] Comment on above: Performed By: #### C BC ####[facility] PATH[facility] [id number] [place], MCV (RBC) [Entitic vol] 98 fL Normal 80-100 T [facility] Comment on above: Performed By: #### C BC ####[facility] [id number] [place], [place], Platelet mean volume (Bld) [Entitic vol] 9.0 fL Normal 7.5-11.2 [facility] Comment on above: Performed By: #### C BC ####[facility] [id number] [place], [place], Platelets (Bld) [#/Vol] 217 10*3/uL Normal 150-400 The [facility] Comment on above: Performed By: #### C BC ####[facility] [id number] [place], [place], RBC (Bld) [#/Vol] 3.33 10*6/uL Low 4.00-5.20 [facility] Comment on above: Performed By: #### C BC ####[facility] [id number] [place], WBC (Bld) [#/Vol] 16.3 10*3/uL High 4.5-11.5 The [facility] Comment on above: Performed By: #### C BC ####[facility] [id number] [place], GLUCOSE, FINGERSTICK-IN OFFI CEon 07-16-2022 Glucose [Mass/Vol] 89 mg/dL Normal 68-110 The [facility] Comment on above: Performed By: #### MILO Mattson CH8 #### [facility] [address] [place] [address], Glucose [Mass/Vol] 89 mg/dL 68 - 110 mg/dL [facility] Interpretation and review of laboratory results Normal [facility] Glucose [Mass/Vol] 160 mg/dL High 68-110 The [facility] Comment on above: Result Comment: Ricky lund RN, APN, MD Performed By: #### MILO Mattson CH8 #### [facility] [address] [place] [address], Glucose [Mass/Vol] 160 mg/dL High 68 - 110 mg/dL [facility] Comment on above: Notified CALISTA MORSE MD Interpretation and review of laboratory results Abnormal [facility] Glucose [Mass/Vol] 136 mg/dL High 68-110 The [facility] Comment on above: Result Comment: Ricky lund RN, APN, MD Performed By: #### MILO Mattson CH8 #### [facility] [address] [place] [address], Glucose [Mass/Vol] 136 mg/dL High 68 - 110 mg/dL [facility] Comment on above: Notified CALISTA MORSE MD Interpretation and review of laboratory results Abnormal [facility] MAGNESIUMon 07-16-2022 Magnesium [Mass/Vol] 2.0 mg/dL Normal 1.6-2.8 The [facility] Comment on above: Performed By: #### MILO Mattson CH8 #### [facility] [address] [place] [address], Interpretation and review of laboratory results Normal [facility] Magnesium [Mass/Vol] 2.0 mg/dL 1.6 - 2 .8 mg/dL [facility] No Panel Informationon 07-16 Interpretation and review of laboratory results Abnormal [facility] PHOSPHORUSon 07-16-2022 Phosphate [Mass/Vol] 2.1 mg/dL Low 2.5-4.8 The [facility] Comment on above: Performed By: #### MILO Mattson CH8 #### [facility] [address] [place] [address], [place], [address] Phosphate [Mass/Vol] 2.1 mg/dL Low 2.5 - 4 .8 mg/dL [facility] Progress Noteson 07-16-2022 Testing And Regulating Technician Authentication Interface Message Text -------- GENERAL INFORMATION [...] 3,000 mg, Intravenous, Q6H Antibiotic, [place], [place], DDS, Last Rate: 200 mL/hr at 07/16/22 [...] Oliver Rogers, DMD, 75 mg at 07/16/22 08 chlorhexidine [...] oxymetazoline (AFRIN) 0.05 % nasal solution, 2 [place], Nasal, Q4H PRN, Oliver Rogers DMD sodium chloride (OCEAN) 0.65 % nasal spray, 1 [place], Nasal, Q1H PRN, Oliver Rogers DMD naloxone [...] 2. (more content not included)... Normal [facility] Testing And Regulating Technician Authentication Interface Message Text Attestation signed by [...] MD SURGERY DAILY PROGRESS NOTE Isabelle Hewitt [phone] Isabelle Hewitt is a 47yo F with [...] bisacodyl 10 mg Daily PRN oxymetazoline 2 [place] Q4H PRN sodium chloride 1 [place] Q1H PRN naloxone 0.4 mg PRN IV [...] hydration. Pt okay to be transferred to [facility]. Neuro: - Acetaminophen 650 mg Q4H scheduled - Ibuprofen 600 mg Q6H PRN mild pain - Oxycodone 5/10 mg Q4H PRN moderate/severe pain OMFS: - Peridex mouth rinses BID Cardiac: - Lipitor 20 mg daily Resp: - O2 as needed to maintain sats >92% - Humidified face tent - Gem nasal spray Q1H PRN - Afrin nasal [...] daily Dispo: - Okay to transfer to [facility] Oliver Rogers, CHAU environmental protection economist, PGY-1 Team Pager: [phone] Normal [facility] BASIC METABOLIC PANELon 11-2 -2021 Anion gap [Moles/Vol] 15 mmol/L Normal 10-20 [facility] Comment on above: Performed By: #### MILO Mattson CH8 #### [facility] [address] [place] [address], Calcium [Mass/Vol] 8.0 mg/dL Low 8.4-10.4 [facility] Comment on above: Performed By: #### MILO Mattson CH8 #### [facility] [address] [place], [place], Chloride [Moles/Vol] 102 mmol/L Normal 97-111 [facility] Comment on above: Performed By: #### MILO Mattson CH8 #### [facility] [address] [place], [place], CO2 [Moles/Vol] 28 mmol/L Normal 21-30 [facility] Comment on above: Performed By: #### MILO Mattson CH8 #### [facility] [address] [place], [place], Creatinine [Mass/Vol] 0.91 mg/dL Normal 0.50-1.10 [facility] Comment on above: Performed By: #### MILO Mattson CH8 #### [facility] [address] [place], [place], ESTIMATED GFR (CKD-EPI) 78 mL/min/1.73sqm Normal >=60 [facility] Comment on above: Result Comment: 2020 [...] Inclusion of Race in Diagnosing Kidney Disease. Vietnamese Journal of Kidney Diseases 2021;79(2):268-88.e1. 2. N Engl J Med 2020 Vol. 385 Issue 19 Pages [phone] Performed By: #### MILO Mattson CH8 #### [facility] [address] [place], [place], Glucose [Mass/Vol] 147 mg/dL High 68-110 [facility] Comment on above: Performed By: #### MILO Mattson CH8 #### [facility] [address] [place], [place], Potassium [Moles/Vol] 4.3 mmol/L Normal 3.3-5.3 [facility] Comment on above: Performed By: #### MILO Mattson CH8 #### [facility] [address] [place], [place], Sodium [Moles/Vol] 141 mmol/L Normal 135-148 [facility] Comment on above: Performed By: #### MILO Mattson CH8 #### [facility] [address] [place], [place], Urea nitrogen [Mass/Vol] 16 mg/dL Normal 8-22 [facility] Comment on above: Performed By: #### M MILO Alan CH8 #### [facility] [address] [place], [place], Basic metabolic 2000 panelon 07-15-2022 Anion gap [Moles/Vol] 15 mmol/L 10 - 20 [facility] Calcium [Mass/Vol] 8.0 mg/dL Low 8.4 - 10. 4 mg/dL [facility] Chloride [Moles/Vol] 102 mmol/L 97 - 11 1 mmol/L [facility] CO2 [Moles/Vol] 28 mmol/L 21 - 30 mmol/L [facility] Creatinine [Mass/Vol] 0.91 mg/dL 0.50 - 1.10 mg/dL [facility] GFR/1.73 sq M.predicted MDRD (S/P/Bld) [Vol rate/Area] 78 mL/min/{1.73_m2} - PINF [facility] Comment on above: 2020 CKD EPI [...] Inclusion of Race in Diagnosing Kidney Disease. Vietnamese Journal of Kidney Diseases 202;79(2):268-88.e1. 2. N Engl J Med 2020 Vol. 385 Issue 19 Pages [phone] Glucose [Mass/Vol] 147 mg/dL High 68 - [...] 11.5 g/dL Low 12.0 - 15.0 g/dL [facility] Interpretation and review of laboratory results Abnormal [facility] MCH (RBC) [Entitic mass] 32.3 pg 26.0 - 34.0 pg [facility] MCHC (RBC) [Mass/Vol] 33.4 g/dL 32.0 - 35.9 g/dL [facility] MCV (RBC) [Entitic vol] 97 fL 80 - 100 fL [facility] Platelet mean volume (Bld) [Entitic vol] 8.6 fL 7.5 - 11.2 fL [facility] Platelets (Bld) [#/Vol] 267 10*3/uL 150 - 400 K/uL [facility] RBC (Bld) [#/Vol] 3.55 10*6/uL Low [facility] WBC (Bld) [#/Vol] 18.2 10*3/uL High 4.5 - 11.5 K/uL [facility] COMPLETE BLOOD COUNTon 07-15 Erythrocyte distribution width (RBC) [Ratio] 13.6 % Normal 11.5-14.5 [facility] Comment on above: Performed By: #### MILO Mattson CH8 #### [facility] [address] [place], [place], Hematocrit (Bld) [Volume fraction] 34.4 % Low 36.0-46.0 The [facility] Comment on above: Performed By: #### MILO Mattson CH8 #### [facility] [address] [place], [place], Hemoglobin (Bld) [Mass/Vol] 11.5 g/dL Low 12.0-15.0 [facility] Comment on above: Performed By: #### MILO Mattson CH8 #### [facility] [address] [place], [place], MCH (RBC) [Entitic mass] 32.3 pg Normal 26.0-34.0 [facility] Comment on above: Performed By: #### MILO Mattson CH8 #### [facility] [address] [place], [place], MCHC (RBC) [Mass/Vol] 33.4 g/dL Normal 32.0-35.9 [facility] Comment on above: Performed By: #### MILO Mattson CH8 #### [facility] [address] [place], [place], MCV (RBC) [Entitic vol] 97 fL Normal 80-100 T he [facility] Comment on above: Performed By: #### MILO Mattson CH8 #### [facility] [address] [place], [place], Platelet mean volume (Bld) [Entitic vol] 8.6 fL Normal 7.5-11.2 [facility] Comment on above: Performed By: #### MILO Mattson CH8 #### [facility] [address] [place], [place], Platelets (Bld) [#/Vol] 267 10*3/uL Normal 150-400 [facility] Comment on above: Performed By: #### MILO Mattson CH8 #### [facility] [address] [place], [place], RBC (Bld) [#/Vol] 3.55 10*6/uL Low 4.00-5.20 [facility] Comment on above: Performed By: #### MILO Mattson CH8 #### [facility] [address] [place], [place], WBC (Bld) [#/Vol] 18.2 10*3/uL High 4.5-11.5 The [facility] Comment on above: Performed By: #### MILO Mattson CH8 #### [facility] [address] [place], [place], Care Plan Noteon 07-15-2022 Testing And Regulating Technician Authentication Interface Message Text Problem: Routine Care: [...] will be met Outcome: Progressing Normal [facility] Testing And Regulating Technician Authentication Interface Message Text Problem: Discharge Planning: [...] Alan, CH8 #### [facility] [address] [place], [address] Glucose [Mass/Vol] 155 mg/dL High 68 - 110 mg/dL [facility] Comment on above: Notified CALISTA MORSE MD Interpretation and review of laboratory results Abnormal [facility] Glucose [Mass/Vol] 137 mg/dL High 68-110 [facility] Comment on above: Performed By: #### 8 2948 ####NURSING GLUCOSE [id number] [place], [address] Glucose [Mass/Vol] 137 mg/dL High 68 - 110 mg/dL [facility] Interpretation and review of laboratory results Abnormal [facility] Progress Noteson 07-15-2022 Testing And Regulating Technician Authentication Interface Message Text Attestation signed by [...] MD SURGERY DAILY PROGRESS NOTE Isabelle Hewitt [phone] Isabelle Hewitt is a 47yo F with [...] bisacodyl 10 mg Daily PRN oxymetazoline 2 [place] Q4H PRN sodium chloride 1 [place] Q1H PRN naloxone 0.4 mg PRN IV [...] Hct MCV RDW Plt PT aPTT INR 07/15/224 18.2 3.55 11.5 34.4 97 13.6 267 [...] daily -Lipitor 20mg daily Pulm: -Oxymetazoline 2 [place] q4h PRN -Gem 1 [place] q1h PRN -Face Tent on humidified air [...] pending Page OMFS if any questions Seferino Vaz DMD OM Resident Team Pager [phone] Normal [facility] Testing And Regulating Technician Authentication Interface Message Text -------- GENERAL INFORMATION [...] Oliver Rogers DMD, 50 mcg at 07/15/22 06 metformin (GLUCOPHAGE) tablet, 500 mg, Oral, [...] Daily, Oliver Rogers, DMD, 20 mg at 07/14/222113 ibuprofen (MOTRIN) tablet, 600 mg, Oral, Q6H PRN, Oliver Rogers DMD oxyCODONE immediate release tablet, 5 mg, Oral, Q4H PRN, Oliver Rogers, CHAU oxyCODONE immediate release tablet, 10 mg, Oral, Q4H PRN, Oliver oRgers, CHAU, 10 mg at 07/15/22 0346 dexamethasone [...] oxymetazoline (AFRIN) 0.05 % nasal solution, 2 [place], Nasal, Q4H PRN, Oliver Rogers DMD sodium chloride (OCEAN) 0.65 % nasal spray, 1 [place], Nasal, Q1H PRN, Oliver Rogers DMD enoxaparin [...] - (more content not included)... Normal [facility] Anesthesia Attestationon Testing And Regulating Technician Authentication Interface Message Text Anesthesia Attestation ATTESTATION OF INFORMED CONSENT FOR ANESTHESIA Anesthesia options were discussed with the patient and/or legal physician relations representative. The risks, benefits and alternatives were reviewed. Questions regarding anesthesia were answered. Patient and/or legal physician relations representative knows such anesthetics and procedures may be performed by Resident physicians, Certified Anesthesiologist Assistants, or Certified Nurse Anesthetists under the supervision of a physician. The patient /or the patient's legal physician relations representative agree with the plan for anesthesia. Normal [facility] Anesthesia Postprocedure Lauren patel 07-14-2022 Testing And Regulating Technician Authentication Interface Message Text Anesthesia Postoperative Assessment: [...] EVENTS: No notable events documented. Normal [facility] Testing And Regulating Technician Authentication Interface Message Text Patient taken to [...] was received. Zenia Centeno, CAA Normal [facility] BLOOD GAS, ARTERIALon 2021 CR DEBORAH 0.5 mmol/L Normal -2.0-2.0 [facility] Comment on above: Performed By: #### C R LYTES, CR GLU, LACT, CR BGA, CR ICA, CR COOX #### [facility] [address] [place] [address], CR PCO2 37.0 mm Hg Normal 35.0-45.0 [facility] Comment on above: Performed By: #### C R LYTES, CR GLU, LACT, CR BGA, CR ICA, CR COOX #### [facility] [address] [place] [address], CR PHA 7.429 Normal 7.35-7.45 The [facility] Comment on above: Performed By: #### C R LYTES, CR GLU, LACT, CR BGA, CR ICA, CR COOX #### [facility] [address] [place] [address], CR PO2 118 mm Hg High 80-100 The [facility] Comment on above: Performed By: #### C R LYTES, CR GLU, LACT, CR BGA, CR ICA, CR COOX #### [facility] [address] [place] [address], HCO3 (Bld) [Moles/Vol] 24 mmol/L Normal 22-28 e [facility] Comment on above: Performed By: #### C R LYTES, CR GLU, LACT, CR BGA, CR ICA, CR COOX #### [facility] [address] [place] [address], Oxygen saturation in Blood 98.8 % Normal >=95.1 The [facility] Comment on above: Performed By: #### C R LYTES, CR GLU, LACT, CR BGA, CR ICA, CR COOX #### [facility] [address] [place] [address], BLOOD GAS, ARTERIALOrdered B y: Osmar Zamora on 07-14-2022 Base excess Calc (Bld) [Moles/Vol] 0.5 mmol/L -2.0 - 2.0 mmol/L [facility] CO2 (Bld) [Partial pressure] 37.0 mm[Hg] [facility] Oxygen (Bld) [Partial pressure] 118 mm[Hg] High [facility] pH (Bld) 7.429 [pH] 7.35 - 7.45 [facility] Blood Attestationon 07-14-20 Testing And Regulating Technician Authentication Interface Message Text Blood Attestation ATTESTATION OF INFORMED CONSENT FOR BLOOD The transfusion of blood and/or blood components were discussed with the patient and/or legal physician relations representative. The risks, benefits and alternatives were reviewed. Questions regarding blood transfusions were answered. The patient /or the patient's legal physician relations representative agree with the plan for transfusion of blood and/or blood components. Normal [facility] Brief Operative Noteon 07-14 Testing And Regulating Technician Authentication Interface Message Text Brief Operative Note MAIN OR 12 Isabelle Hewitt 47 year old female Surgical Contact Serial Number: [id number] Preoperative Diagnosis: DIONNE (obstructive sleep apnea) [G47.33] Postoperative Diagnosis: * DIONNE (obstructive sleep apnea) [G47.33] Procedures: Surgical CPTs Procedures RECONSTRUCTION MIDFACE, LEFORT I; 1 PIECE, W/O BONE GRAFT RECONSTRUCTION, MANDIBULAR RAMI AND /OR BODY, SAGITTAL SPLIT; W/INT RIGID FIXATION No data filed Surgeon(s): Surgeon(s): Rikki Rodrigues DMD, MD Staff: Scrub: Annelise Saeed RN; Babs Wells RN Multicultural Manager Nurse: Stephanie Brannon RN; Babs Wells RN Car Supplier: Margot Ovalles DDS; Saleem Mi DMD Anesthesia: [...] DMD, MD 07/14/2022 12:58 PM Normal [facility] CALCIUM, IONIZEDon CR ICA 1.00 mmol/L Low 1.10-1.40 [facility] Comment on above: Performed By: #### C R LYTES, CR GLU, LACT, CR BGA, CR ICA, CR COOX #### [facility] [address] [place] [address], Calcium.ionized (Bld) [Moles/Vol] 1.00 mmol/L Low 1.10 - 1.40 mmol/L [facility] CO-OXIMETERon 07-14-2022 CARBOXYHEMOGLOBIN 1.5 % Normal <3.0 [facility] Comment on above: Performed By: #### C R LYTES, CR GLU, LACT, CR BGA, CR ICA, CR COOX #### [facility] [address] [place] [address], CR HBMET 0.8 % Normal <3.0 [facility] Comment on above: Performed By: #### C R LYTES, CR GLU, LACT, CR BGA, CR ICA, CR COOX #### [facility] [address] [place] [address], Hematocrit (Bld) [Volume fraction] 37.6 % Normal 36.0-46.0 [facility] Comment on above: Performed By: #### C R LYTES, CR GLU, LACT, CR BGA, CR ICA, CR COOX #### [facility] [address] [place] [address], Hemoglobin (Bld) [Mass/Vol] 12.2 g/dL Normal 12.0-16.0 [facility] Comment on above: Performed By: #### C R LYTES, CR GLU, LACT, CR BGA, CR ICA, CR COOX #### [facility] [address] [place] [address], OXYHEMOGLOBIN 96.5 % Normal 95.0-100.0 [facility] Comment on above: Performed By: #### C R LYTES, CR GLU, LACT, CR BGA, CR ICA, CR COOX #### [facility] [address] [place], [address] Carboxyhemoglobin (BldA) [Mass fraction] 1.5 % NINF - 3.0 % [facility] Hematocrit (BldA) [Volume fraction] 37.6 % 36.0 - 46.0 % [facility] Hemoglobin (Bld) [Mass/Vol] 12.2 g/dL 12.0 - 16.0 g/dL [facility] Methemoglobin (BldA) [Mass fraction] 0.8 % NINF - 3.0 % [facility] Oxyhemoglobin (BldA) [Mass fraction] 96.5 % 95.0 - 100.0 % [facility] Consultson 07-14-2022 Testing And Regulating Technician Authentication Interface Message Text Surgical ICU H AND P Isabelle Hewitt [phone] HPI: Ms Hewitt is a 47 year [...] ICA, CR COOX #### [facility] [address] [place] [address], Potassium [Moles/Vol] 3.7 mmol/L Normal 3.3-5.3 The [facility] Comment on above: Performed By: #### C R LYTES, CR GLU, LACT, CR BGA, CR ICA, CR COOX #### [facility] [address] [place] [address], Sodium [Moles/Vol] 142 mmol/L Normal 135-148 [facility] Comment on above: Performed By: #### C R LYTES, CR GLU, LACT, CR BGA, CR ICA, CR COOX #### [facility] [address] [place], [place], Chloride [Moles/Vol] 107 mmol/L 97 - 11 1 mmol/L [facility] Potassium [Moles/Vol] 3.7 mmol/L 3.3 - 5.3 mmol/L [facility] Sodium [Moles/Vol] 142 mmol/L 135 - 148 mmol/L [facility] GLUCOSE, FINGERSTICK-IN OFFI CEon 07-14-2022 Glucose [Mass/Vol] 156 mg/dL High 68-110 [facility] Comment on above: Performed By: #### 8 2948 ####NURSING GLUCOSE [id number] [place], [address] Glucose [Mass/Vol] 156 mg/dL High 68 - 110 mg/dL [facility] Interpretation and review of laboratory results Abnormal [facility] Glucose [Mass/Vol] 110 mg/dL Normal 68-110 The [facility] Comment on above: Performed By: #### 8 2948 ####NURSING GLUCOSE [id number] [place], [address] Glucose [Mass/Vol] 110 mg/dL 68 - 110 mg/dL [facility] Interpretation and review of laboratory results Normal [facility] GLUCOSE, WHOLE BLOODon 07-14 CR GLU 93 mg/dL Normal 68-98 The [facility] Comment on above: Performed By: #### C R LYTES, CR GLU, LACT, CR BGA, CR ICA, CR COOX ####S PATHOLOGY [id number] [place], [place], Glucose [Mass/Vol] 93 mg/dL 68 - 98 mg/dL [facility] LACTIC ACIDon 07-14-2022 CR LACT 2.0 mmol/L Normal 0.5-2.0 The [facility] Comment on above: Performed By: #### C R LYTES, CR GLU, LACT, CR BGA, CR ICA, CR COOX #### S [facility]AT[facility] [address] [place], [place], Lactate [Moles/Vol] 2.0 mmol/L 0.5 - 2. 0 mmol/L [facility] Laboratory - Chemistry and C hemistry - challengeOrdered By: Osmar Zamora on 07-14-2022 HCO3 (Bld) [Moles/Vol] 24 mmol/L 22 - 28 mmol/L [facility] No Panel Informationon 07-14 Interpretation and review of laboratory results Normal [facility] No Panel InformationOrdered By: Osmar Zamora on 07-14-2022 Interpretation and review of laboratory results Abnormal [facility] OP Noteon 07-14-2022 Testing And Regulating Technician Authentication Interface Message Text Name: ISABELLE HEWITT MR#: [id number] [facility]#: [id number] Date of Procedure: 07/14/2022 ATTENDING SURGEON: Rikki [...] was placed deep in the oropharynx. 4 [place] MMF screws were placed, 2 in the [...] a combination of osteotomes and a [place] traffic technician. On both sides, the inferior alveolar nerve [...] Fixation on both sides was consisted of [place] dog bone shaped plate with 3 monocortical [...] anticipated 3 mm of anterior impaction accomplished. [place] prebent orthognathic plates were used at the [...] FINDINGS: IMPRESSION: Single view of the filter [place] with linear radiopaque foreign body compatible with retained needle. MACRO: None Normal [facility] XR Skull PA and Right latera l and Left lateralon 07-14-2022 EXAMINATION: XR SKUL L PA+LATERAL 07/14/2022 10:15 AM CLINICAL HISTORY: Reason for Exam: retained object. ASSOCIATED DIAGNOSIS: ORDERING PROVIDER: CORRINE RODRIGUES TECHNOLOGISTS NOTE: Image of filter for retained surgical needle per Dr. Rodrigues. COMPARISON: None FINDINGS: IMPRESSION: Single view of the filter [place] with linear radiopaque foreign body compatible with retained needle. MACRO: None RADIOLOGY Jerel Guzman MD - 07/14/2022 EXAMINATION: XR SKULL PA+LATERAL 07/14/2022 10:15 AM CLINICAL HISTORY: Reason for Exam: retained object. ASSOCIATED DIAGNOSIS: ORDERING PROVIDER: CORRINE RODRIGUES TECHNOLOGISTS NOTE: Image of filter for retained surgical needle per Dr. Rodrigues. COMPARISON: None FINDINGS: IMPRESSION: Single view of the filter [place] with linear radiopaque foreign body compatible with retained needle. 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 Normal [facility] Telephone Encounteron 2021 Testing And Regulating Technician Authentication Interface Message Text Patient states she is faxing over paperwork for her time off of work d/t surgery tomorrow, 07/14. Patient would like a call when this is received if possible. Please call [phone]. Patient informed it might not be possible, just in case. Thank you! Normal [facility] Telephone Encounteron 2021 Testing And Regulating Technician Authentication Interface Message Text [id number]: Contacted pt and informed her to call the ENT office to schedule appt with Dr Moreno s/p jaw surgery in about 3 months due to healing time. Pt verbalized understanding. Latoya Manzo RN Normal [facility] Testing And Regulating Technician Authentication Interface Message Text Dr. Joel, Patient calling stating that she is going forward with the jaw surgery that you recommended next 07/14/22. Patient would like to know what the next step is for after the surgery. PT: [phone] Thanks, D Normal [facility] ABO RH TYPEon 07-08-2022 ABO and Rh group Nom (Bld) Blood group B Rh(D) positive Normal [facility] Comment on above: Performed By: #### M MILO Alan CHCarla #### S PATHOLOGY LABORATORY [address] [place], [place], CBC panel Auto (Bld)on 07-08 Erythrocyte [...] Performed By: #### C BC ####[facility] [id number] [place], [place], Hematocrit (Bld) [Volume fraction] 42.2 % Normal 36.0-46.0 [facility] Comment on above: Performed By: #### C BC ####[facility] [id number] [place], [place], Hemoglobin (Bld) [Mass/Vol] 14.3 g/dL Normal 12.0-15.0 [facility] Comment on above: Performed By: #### C BC ####[facility] PATH[facility] [id number] [place], [place], MCH (RBC) [Entitic mass] 33.1 pg Normal 26.0-34.0 The [facility] Comment on above: Performed By: #### C BC ####[facility] PATH[facility] [id number] [place], [place], MCHC (RBC) [Mass/Vol] 33.9 g/dL Normal 32.0-35.9 The [facility] Comment on above: Performed By: #### C BC ####[facility] PATH[facility] [id number] [place], [place], MCV (RBC) [Entitic vol] 98 fL Normal 80-100 T [facility] Comment on above: Performed By: #### C BC ####[facility] PATHOLOG[facility] [id number] [place], [place], Platelet mean volume (Bld) [Entitic vol] 8.8 fL Normal 7.5-11.2 The [facility] Comment on above: Performed By: #### C BC ####[facility] PATH[facility] [id number] [place], [place], Platelets (Bld) [#/Vol] 274 10*3/uL Normal 150-400 The [facility] Comment on above: Performed By: #### C BC ####[facility] PATH[facility] [id number] [place], RBC (Bld) [#/Vol] 4.32 10*6/uL Normal 4.00-5.20 The [facility] Comment on above: Performed By: #### C BC ####[facility] PATH[facility] [id number] [place], WBC (Bld) [#/Vol] 7.2 10*3/uL Normal 4.5-11.5 [facility] Comment on above: Performed By: #### C BC ####[facility] [id number] [place], [place], Laboratory - Blood bankon ABO and Rh group Nom (Bld) Blood group B Rh(D) positive [facility] No Panel Informationon 07-08 [facility] PSE Appt H AND Neftali Testing And Regulating Technician Authentication Interface Message Text Patient was identified by name and date of . Edwina Daniel Bill of rights provided to patient Normal [facility] Patient Instructionson 07-08 Testing And Regulating Technician Authentication Interface Message Text On the morning [...] for pain Please hold all Vitamin E, [place] 3, fish oil and herbal supplements for 1 week prior to surgery Normal [facility] TYPE AND SCREENon 07-08-2022 ABO and Rh group Nom (Bld) No Previous Results [facility] Comment on above: Patient does not req uire a 2nd sample drawn prior to surgery date of 07/14/2022___. Specimen meets Blood Bank's Pre-Surgical Protocol and is valid within 14 days from date of collection but will at midnight on the day of approved Surgery. Corrected Result : 07/08/2022 17:16:22 : By Transfusion Medicine Blood group antibody screen Ql Negative [facility] ABO and Rh group Nom (Bld) Blood group B Rh(D) positive Normal [facility] Comment on above: Performed By: #### MILO Mattson, CH8 #### [facility] [address] [place], [place], ABO and Rh group Nom (Bld) No Previous Results Normal [facility] Comment on above: Result Comment: [...] MILO Mattson CH8 #### [facility] [address] [place] [address], ABSC INT Negative Normal [facility] Comment on above: Performed By: #### MILO Mattson CH8 #### S PATHOLOGY LABORATORY [address] [place] [address], FREE T4on 07-07-2022 Free T4 [Mass/Vol] 0.83 ng/dL Normal 0.76-1.46 The [facility] Comment on above: Performed By: #### F T4 #### [facility] Laboratory [address] [place] [address] [address] Stephanie Gibbs TSHon 07-07-2022 TSH 3.715 uIU/mL Normal 0.358-3.740 The [facility] Comment on above: Performed By: #### C BC #### [facility] Laboratory [address] [place] [address] Dr. Stephanie Gibbs PSE Appt H AND Neftali Testing And Regulating Technician Authentication Interface Message Text Error Normal [facility] Progress Noteson 07-02-2022 Testing And Regulating Technician Authentication Interface Message Text Patient was seen in the OM clinic for alginate impressions of the edentulous maxilla and CBCT with denture in place. Seferino Vaz DMD OMFS Resident Normal [facility] Testing And Regulating Technician Authentication Interface Message Text ORAL SURGERY CLINIC FOLLOW UP VISIT Patient was seen in the OM clinic for alginate impressions of the edentulous maxilla and CBCT with denture in place. Seferino Vaz DMD OMFS Resident ms. Normal [facility] Patient Instructionson 06-18 Testing And Regulating Technician Authentication Interface Message Text Maxillomandibular advancement surgery, [...] daytime fatigue and inconsistent sleep. Normal [facility] Progress Noteson 06-18-2022 Testing And Regulating Technician Authentication Interface Message Text OMFS PATIENT VISIT CHIEF COMPLAINT: sleep apnea HISTORY OF PRESENT ILLNESS: Patient presents for evaluation for surgical treatment of DIONNE. She is extremely symptomatic from her DIONNE, and suffers from CPAP intolerance. [place] sleepiness scale is 18. Patient is starting [...] on 06/18/2022, and Digital version in Dentistry [employer] system. Airway measurements are very small compared to norms. Retrognathic mandible. DIAGNOSIS: Obstructive sleep apnea [475932] TREATMENT: Exam, Panorex evaluated, and pictures/models taken [...] for (more content not included)... Normal [facility] Progress Noteson 06-15-2022 Testing And Regulating Technician Authentication Interface Message Text CC: sleep disordered [...] nerve stimulator implanted following MMA Normal [facility] Anesthesia Attestationon Testing And Regulating Technician Authentication Interface Message Text Anesthesia Attestation ATTESTATION OF INFORMED CONSENT FOR ANESTHESIA Anesthesia options were discussed with the patient and/or legal physician relations representative. The risks, benefits and alternatives were reviewed. Questions regarding anesthesia were answered. Patient and/or legal physician relations representative knows such anesthetics and procedures may be performed by Resident physicians, Certified Anesthesiologist Assistants, or Certified Nurse Anesthetists under the supervision of a physician. The patient /or the patient's legal physician relations representative agree with the plan for anesthesia. Normal [facility] Anesthesia Postprocedure Lauren luationon 06-03-2022 Testing And Regulating Technician Authentication Interface Message Text Anesthesia Postoperative Assessment: [...] EVENTS: No notable events documented. Normal [facility] Anesthesia Preprocedure Eval uationon 06-03-2022 Testing And Regulating Technician Authentication Interface Message Text ASA: 2 No [...] the history and physical examination. Normal [facility] Anesthesia Transfer Of Careo n 06-03-2022 Testing And Regulating Technician Authentication Interface Message Text Patient taken to [...] report was received. CINTIA Patel Normal [facility] Brief Operative Noteon 06-03 Testing And Regulating Technician Authentication Interface Message Text Brief Operative Note PACU 19 Isabelle Hewitt 47 year old female Surgical Contact Serial Number: [id number] Preoperative Diagnosis: DIONNE (obstructive sleep apnea) [G47.33] [...] Brown PA-C 06/03/2022 2:48 PM Normal [facility] OP Noteon 06-03-2022 Testing And Regulating Technician Authentication Interface Message Text Name: ISABELLE HEWITT MR#: [id number] ENC#: [id number] Date of Procedure: 06/03/2022 ATTENDING SURGEON: Yi [...] taken back to recovery. Yi Moreno MD LGSW/Marii/ Dict: 06/03/2022 15:35:21 TRANS: 06/04/2022 07:02:00 JOB: [id number] DictJob#: [id number] Normal [facility] Progress Noteson 06-03-2022 Testing And Regulating Technician Authentication Interface Message Text Discharge instructions reviewed in preop with patient. Patient verbalized understanding. No questions at this time. Normal [facility] Telephone Encounteron 2021 Testing And Regulating Technician Authentication Interface Message Text Pre-op COVID test results received AND scanned into [employer]. Results NEGATIVE on 05/31/2022. Scheduled for DISE on 06/03/2022. Normal [facility] COVID Quick Testingon 2021 Result Negative [facility] Other PSE Call H AND Neftali Testing And Regulating Technician Authentication Interface Message Text Telephone History Isabelle Hewitt, [id number] 05/28/2022 47 year old 190 lbs 5' [...] capsul (more content not included)... Normal [facility] Telephone Encounteron 2021 Testing And Regulating Technician Authentication Interface Message Text Patient is scheduled for DISE on 06/03/2022. Prefers to complete pre-op COVID testing closer to home. Instructed to obtain testing 48-72 hours prior to surgery and bring copy of results on day of surgery. PSE contact information provided. Normal [facility] Addendum Noteon 05-26-2022 Testing And Regulating Technician Authentication Interface Message Text Addended by: YI MORENO on: 05/26/2022 05:25 PM Modules accepted: Orders Normal [facility] Telephone Encounteron 2021 Testing And Regulating Technician Authentication Interface Message Text Arrangements to be made for pre-op COVID testing per ENT request. Normal [facility] MRI PITUITARY WO W CONon MRI [...] WILEY POE Date: 2022-05-18 13:10 Normal The [facility] US PELVIS AND TRANSVAGon US PELVIS AND [...] MADDI WINSTON Date: 2022-05-11 16:51 Normal The [facility] ESTRADIOLon 05-08-2022 Estradiol 16.3 pg/mL Normal The [facility] Comment on above: Result Comment: Adul t Female: Follicular phase 12.5 - 166.0 Ovulation phase 85.8 - 498.0 Luteal phase 43.8 - 211.0 Postmenopausal <6.0 - 54.7 1st trimester 215.0 - >4300.0 Salma ECLIA methodology Performed By: #### C BC #### [facility] [address] [place] [address] Dr. Stephanie Gibbs FSHon 05-08-2022 FSH 11.3 mIU/mL Normal [facility] Comment on above: Result Comment: Adul t Female: Follicular phase 3.5 - 12.5 Ovulation phase 4.7 - 21.5 Luteal phase 1.7 - 7.7 Postmenopausal 25.8 - 134.8 Performed By: #### C BC #### [facility] [address] [place] [address] Dr. Stephanie Gibbs LUTEINIZING HORMONE (LH)on 0 05-08-2022 LH 4.7 mIU/mL Normal [facility] Comment on above: Result Comment: Adul t Female: Follicular phase 2.4 - 12.6 Ovulation phase 14.0 - 95.6 Luteal phase 1.0 - 11.4 Postmenopausal 7.7 - 58.5 Performed By: #### L BCLH #### [facility] [address] [place] [address] Dr. Stephanie Gibbs PROGESTERONEon 05-08-2022 Progesterone 0.2 ng/mL Normal [facility] Comment on above: Result Comment: Foll icular phase 0.1 - 0.9 Luteal phase 1.8 - 23.9 Ovulation phase 0.1 - 12.0 First trimester 11.0 - 44.3 Second trimester 25.4 - 83.3 Third trimester 58.7 - 214.0 Postmenopausal 0.0 - 0.1 Performed By: #### P ROGES #### [facility] [address] [place] [address] Dr. Stephanie Gibbs PROLACTINon 05-08-2022 Prolactin 43.0 ng/mL Critically high 4.8-23.3 [facility] Comment on above: Performed By: #### F T4 #### [facility] [address] [place] [address] Dr. Stephanie Gibbs CBC AUTO DIFFon 05-07-2022 BASO # 0.1 103/ul Normal 0.0-0.1 [facility] Comment on above: Performed By: #### C BC #### [facility] [address] [place] [address] Dr. Stephanie Gibbs Basophils/100 WBC (Bld) 1.0 % Normal 0.2-2.0 [facility] Comment on above: Performed By: #### C BC #### [facility] [address] [place] [address] Dr. Stephanie Gibbs EO # 0.2 103/ul Normal 0.0-0.7 [facility] Comment on above: Performed By: #### C BC #### [facility] [address] [place] [address] Dr. Stephanie Gibbs Eosinophils/100 WBC (Bld) 2.7 % Normal 0.9-7.0 [facility] Comment on above: Performed By: #### C BC #### [facility] [address] [place] [address] Dr. Stephanie Gibbs Erythrocyte distribution width (RBC) [Ratio] 13.0 % Normal 11.0-15.0 [facility] Comment on above: Performed By: #### C BC #### [facility] [address] [place] [address] Dr. Stephanie Gibbs Hematocrit (Bld) [Volume fraction] 39.0 % Normal 36.0-48.0 [facility] Comment on above: Performed By: #### C BC #### [facility] [address] [place] [address] Dr. Stephanie Gibbs Hemoglobin (Bld) [Mass/Vol] 13.0 g/dL Normal 12.0-16.0 [facility] Comment on above: Performed By: #### C BC #### [facility] [address] [place] [address] Dr. Stephanie Gibbs IG # 0.03 10e3/ul Normal 0.00-0.03 [facility] Comment on above: Performed By: #### C BC #### [facility] [address] [place] [address] Dr. Stephanie Gibbs IG % 0.4 % Normal 0.0-0.5 [facility] Comment on above: Performed By: #### C BC #### [facility] [address] [place] [address] Dr. Stephanie Gibbs LYMPH # 2.4 103/ul Normal 1.2-3.8 [facility] Comment on above: Performed By: #### C BC #### [facility] [address] [place] [address] Dr. Stephanie Gibbs Lymphocytes/100 WBC (Bld) 33.8 % Normal 20.5-60.0 [facility] Comment on above: Performed By: #### C BC #### [facility] [address] [place] [address] Dr. Stephanie Gibbs MANUAL DIFF REQ NO Normal [facility] Comment on above: Performed By: #### C BC #### [facility] [address] [place] [address] Dr. Stephanie Gibbs MCH (RBC) [Entitic mass] 32.2 pg Normal 26.7-34.0 [facility] Comment on above: Performed By: #### C BC #### [facility] [address] [place] [address] Dr. Stephanie Gibbs MCHC (RBC) [Mass/Vol] 33.3 g/dL Normal 29.9-35.2 [facility] Comment on above: Performed By: #### C BC #### [facility] [address] [place] [address] Dr. Stephanie Gibbs MCV (RBC) [Entitic vol] 96.5 fL Normal 81.0-99.0 [facility] Comment on above: Performed By: #### C BC #### [facility] [address] [place] [address] Dr. Stephanie Gibbs MONO # 0.4 103/ul Normal 0.3-0.8 [facility] Comment on above: Performed By: #### C BC #### [facility] [address] [place] [address] Dr. Stephanie Gibbs Monocytes/100 WBC (Bld) 5.9 % Normal 1.7-12.0 [facility] Comment on above: Performed By: #### C BC #### [facility] [address] [place] [address] Dr. Stephanie Gibbs NEUT # 4.0 103/ul Normal 1.4-6.5 [facility] Comment on above: Performed By: #### C BC #### [facility] [address] [address] [address] Stephanie Gibbs Neutrophils/100 WBC (Bld) 56.2 % Normal 43.0-75.0 [facility] Comment on above: Performed By: #### C BC #### [facility] [address] [address] [address] Stephanie Gibbs Platelet mean volume (Bld) [Entitic vol] 9.8 fL Normal 9.5-13.5 [facility] Comment on above: Performed By: #### C BC #### [facility] [address] [place] [address] Dr. Stephanie Gibbs PLT 245 103/ul Normal 150-450 [facility] Comment on above: Performed By: #### C BC #### [facility] [address] [place] [address] Dr. Stephanie Gibbs RBC 4.04 106/ul Critically low 4.20-5.40 [facility] Comment on above: Performed By: #### C BC #### [facility] [address] [address] [address] Stephanie Gibbs WBC 7.2 103/ul Normal 4.0-11.0 [facility] Comment on above: Performed By: #### C BC #### [facility] [address] [place] [address] Dr. Stephanie Gibbs FREE T4on 05-07-2022 Free T4 [Mass/Vol] 0.69 ng/dL Critically low 0.76-1.46 Th [facility] Comment on above: Performed By: #### C BC #### [facility] [address] [place] [address] Dr. Stephanie Gibbs GLYCOHEMOGLOBIN A1Con 2021 ADA RECOMMENDATION SEE BELOW Normal [facility] Comment on above: Result Comment: ADA RECOMMENDED LIMIT 4.0 - 6.0 ADA THERAPEUTIC TARGET < 7.0 ACTION SUGGESTED > 7.0 Performed By: #### C BC #### [facility] [address] [place] [address] Dr. Stephanie Gibbs Glucose [Mass/Vol] 128 mg/dL Normal [facility] Comment on above: Performed By: #### C BC #### [facility] [address] [address] [address] Stephanie Gibbs HbA1c (Bld) [Mass fraction] 6.1 % Normal 4.5-6.2 [facility] Comment on above: Performed By: #### C BC #### [facility] [address] [address] [address] Stephanie Gibbs TSHon 05-07-2022 TSH 2.391 uIU/mL Normal 0.358-3.740 [facility] Comment on above: Performed By: #### F T4 #### [facility] [address] [address] [address] Stephanie Gibbs Progress Noteson 03-29-2022 Testing And Regulating Technician Authentication Interface Message Text .Documentation: Mode: Telephone Patient Home Phone: Patient Patient Cell Preferred phone: [phone] Consent: I confirmed patient understanding of the [...] seen on prior sleep endoscopy Normal [facility] FREE T4on 03-09-2022 Free T4 [Mass/Vol] 1.08 ng/dL Normal 0.76-1.46 [facility] Comment on above: Performed By: #### F T4 #### [facility] [id number] Stephanie Gibbs LIPID PROFILEon 03-09-2022 CHOL-HDL RATIO NORM SEE BELOW Normal [facility] [place] Comment on above: Result Comment: 3.3 - 4.4 LOW RISK 4.4 - 7.1 AVERAGE RISK 7.1 - 11.0 MODERATE RISK >11.0 HIGH RISK Performed By: #### F T4 #### [facility] [address] [place], [place] [address] Dr. Stephanie Gibbs Cholesterol [Mass/Vol] 205 mg/dL Critically high <=200 [facility] Comment on above: Performed By: #### F T4 #### [facility] [address] [address] [address] Stephanie Gibbs Cholesterol in HDL [Mass/Vol] 44 mg/dL Normal 40-60 [facility] Comment on above: Performed By: #### F T4 #### [facility] [address] [address] [address] Stephanie Gibbs Cholesterol in LDL [Mass/Vol] 126.6 mg/dL Normal [facility] Comment on above: Performed By: #### F T4 #### [facility] [address] [place], [place] [address] Dr. Stephanie Gibbs Cholesterol.total/Edu sterol in HDL [Mass ratio] 4.7 {ratio} Normal [facility] Comment on above: Performed By: #### F T4 #### [facility] [id number] Stephanie Gibbs HDL NORMAL > or = 60 mg/dl - LO W CARDIOVASCULAR RISK <40 mg/dl - HIGH CARDIOVASCULAR RISK Normal [facility] Comment on above: Performed By: #### F T4 #### [facility] [id number] Stephanie Gibbs LDL CALC NORMAL SEE BELOW Normal [facility] Comment on above: Result Comment: <100 mg/dl OPTIMAL 100 - 129 mg/dl NEAR OR ABOVE OPTIMAL 130 - 159 mg/dl BORDERLINE HIGH 160 - 189 mg/dl HIGH >190 mg/dl VERY HIGH Performed By: #### F T4 #### [facility] [address] [place] [address] Dr. Stephanie Gibbs Triglyceride [Mass/Vol] 172 mg/dL Critically high <=150 [facility] Comment on above: Performed By: #### F T4 #### [facility] [address] [address] [address] Stephanie Gibbs VLDL CALC 34.4 mg/dL Normal [facility] Comment on above: Performed By: #### F T4 #### [facility] [address] [place] [address] Dr. Stephanie Gibbs PROF 14(COMP METB)on 022 Albumin [Mass/Vol] 3.7 g/dL Normal 3.4-5.0 [facility] Comment on above: Performed By: #### F T4 #### [facility] [address] [place] [address] Dr. Stephanie Gibbs Albumin/Globulin [Mass ratio] 0.8 {ratio} Normal [facility] Comment on above: Performed By: #### F T4 #### [facility] [address] [place] [address] Dr. Stephanie Gibbs ALP [Catalytic activity/Vol] 121 U/L Critically high 46-116 [facility] Comment on above: Performed By: #### F T4 #### [facility] [address] [place] [address] Dr. Stephanie Gibbs ALT [Catalytic activity/Vol] 39 U/L Normal 14-59 [facility] Comment on above: Performed By: #### F T4 #### [facility] [address] [place] [address] Dr. Stephanie Gibbs Anion gap [Moles/Vol] 12.6 mmol/L Normal [facility] Comment on above: Performed By: #### F T4 #### [facility] [address] [place] [address] Dr. Stephanie Gibbs AST [Catalytic activity/Vol] 21 U/L Normal 15-37 [facility] Comment on above: Performed By: #### F T4 #### [facility] [address] [address] [address] Stephanie Gibbs Bilirubin [Mass/Vol] 0.4 mg/dL Normal 0.2-1.0 [facility] Comment on above: Performed By: #### F T4 #### [facility] [address] [address] [address] Stephanie Gibbs Calcium [Mass/Vol] 9.1 mg/dL Normal 8.5-10.1 [facility] Comment on above: Performed By: #### F T4 #### [facility] [address] [place] [address] Dr. Stephanie Gibbs Chloride [Moles/Vol] 102 mmol/L Normal 98-107 [facility] Comment on above: Performed By: #### F T4 #### [facility] [address] [place] [address] Dr. Stephanie Gibbs CO2 [Moles/Vol] 28.1 mmol/L Normal 21.0-32.0 [facility] Comment on above: Performed By: #### F T4 #### [facility] [address] [place] [address] Dr. Stephanie Gibbs Creatinine [Mass/Vol] 0.95 mg/dL Normal 0.55-1.02 [facility] Comment on above: Performed By: #### F T4 #### [facility] [address] [place] [address] Dr. Stephanie Gibbs EGFR-AF ETHIOPIAN >60 Normal >=60 [facility] Comment on above: Performed By: #### F T4 #### [facility] [address] [place] [address] Dr. Stephanie Gibbs EGFR-NON AF ETHIOPIAN >60 Normal >=60 [facility] Comment on above: Performed By: #### F T4 #### [facility] [address] [place] [address] Dr. Stephanie Gibbs Globulin (S) [Mass/Vol] 4.8 g/dL Normal [facility] Comment on above: Performed By: #### F T4 #### [facility] [address] [place] [address] Dr. Stephanie Gibbs Glucose [Mass/Vol] 106 mg/dL Normal 74-106 [facility] Comment on above: Performed By: #### F T4 #### [facility] [address] [address] [address] Stephanie Gibbs Potassium [Moles/Vol] 3.7 mmol/L Normal 3.5-5.1 [facility] Comment on above: Performed By: #### F T4 #### [facility] [address] [address] [address] Stephanie Gibbs Protein [Mass/Vol] 8.5 g/dL Critically high 6.4-8.2 [facility] Comment on above: Performed By: #### F T4 #### [facility] [address] [address] [address] Stephanie Gibbs Sodium [Moles/Vol] 139 mmol/L Normal 136-145 [facility] Comment on above: Performed By: #### F T4 #### [facility] [address] [address] [address] Stephanie Gibbs Urea nitrogen [Mass/Vol] 14.0 mg/dL Normal 7.0-18.0 [facility] Comment on above: Performed By: #### F T4 #### [facility] [address] [address] [address] Stephanie Gibbs Urea nitrogen/Creatinine [Mass ratio] 14.7 mg/mg Normal [facility] Comment on above: Performed By: #### F T4 #### [facility] [address] [address] [address] Stephanie Gibbs TSHon 03-09-2022 TSH 0.446 uIU/mL Normal 0.358-3.740 [facility] Comment on above: Performed By: #### F T4 #### [facility] [id number] Stephanie Gibbs Telephone Encounteron 2021 Testing And Regulating Technician Authentication Interface Message Text Patient calling in [...] to turn it in is 03/19/22. #: [phone] Normal [facility] Care Plan Noteon 02-26-2022 Testing And Regulating Technician Authentication Interface Message Text Problem: Routine Care: [...] met Outcome: Adequate for Discharge Normal [facility] Testing And Regulating Technician Authentication Interface Message Text Problem: Routine Care: [...] will be met Outcome: Progressing Normal [facility] Anesthesia Attestationon Testing And Regulating Technician Authentication Interface Message Text Anesthesia Attestation ATTESTATION OF INFORMED CONSENT FOR ANESTHESIA Anesthesia options were discussed with the patient and/or legal physician relations representative. The risks, benefits and alternatives were reviewed. Questions regarding anesthesia were answered. Patient and/or legal physician relations representative knows such anesthetics and procedures may be performed by Resident physicians, Certified Anesthesiologist Assistants, or Certified Nurse Anesthetists under the supervision of a physician. The patient /or the patient's legal physician relations representative agree with the plan for anesthesia. Normal [facility] Anesthesia Postprocedure Lauren luationon 02-25-2022 Testing And Regulating Technician Authentication Interface Message Text Anesthesia Postoperative Assessment: [...] ANESTHESIA COMPLICATIONS: No complications documented. 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 Normal [facility] Testing And Regulating Technician Authentication Interface Message Text Patient taken to [...] Maite Youssef MD CAA: Mariaa Meneses CAA POSTBED STITCHER: Cari Hurtado APRN-CRNA Representative: Carol Barrera MD Anesthesia Student: Prema Norris [...] Advanced Airway: ETT, Oral #6 (Removed) 02/25/22 0902 Pre-Oxygenation/ Induction: Mask Rapid Sequence Induction?: Mask [...] report was received. PADMINI Chiang Normal [facility] Blood Attestationon 02-26-20 Testing And Regulating Technician Authentication Interface Message Text Blood Attestation ATTESTATION OF INFORMED CONSENT FOR BLOOD The transfusion of blood and/or blood components were discussed with the patient and/or legal physician relations representative. The risks, benefits and alternatives were reviewed. Questions regarding blood transfusions were answered. The patient /or the patient's legal physician relations representative agree with the plan for transfusion of blood and/or blood components. Normal [facility] Brief Operative Noteon 02-25 Testing And Regulating Technician Authentication Interface Message Text Brief Operative Note MAIN OR 11 Isabelle Hewitt 46 year old female Surgical Contact Serial Number: [id number] Preoperative Diagnosis: DIONNE (obstructive sleep apnea) [G47.33] Postoperative Diagnosis: * DIONNE (obstructive sleep apnea) [G47.33] Procedures: Surgical CPTs Procedures * PALATOPHARYNGOPLASTY No data filed Surgeon(s): Surgeon(s): Yi Moreno MD Staff: Scrub: Wiley Álvarez Multicultural Manager Nurse: Mariaa Briseno; Dulce Allred; Babs Wells RN Car Supplier: Yi Piña MD; Unruly Biggs MD Anesthesia: Consult Anesthesiologist: Maite Youssef MD CAA: Mariaa Meneses CAA POSTBED STITCHER: Cari Hurtado APRN-KOBI Representative: Carol Barrera MD Anesthesia Student: Prema Norris [...] Moreno MD 02/25/2022 10:40 AM Normal [facility] Care Plan Noteon 02-25-2022 Testing And Regulating Technician Authentication Interface Message Text Problem: Routine Care: [...] will be met Outcome: Progressing Normal [facility] OP Noteon 02-25-2022 Testing And Regulating Technician Authentication Interface Message Text [id number] Isabelle Hewitt 1975 @PATFNAME@ @PATIENTLASTNAME@ [id number] Preoperative diagnosis: 1. Obstructive sleep apnea 2. [...] to recovery in stable condition. Normal [facility] Progress Noteson 02-25-2022 Testing And Regulating Technician Authentication Interface Message Text No excessive swallowing. [...] with no areas of redness. Normal [facility] URINE HCG-IN OFFICEon 2021 HCG ( test) Ql (U) Negative Negative [facility] Interpretation and review of laboratory results Normal [facility] Negative Internal Control Negative Negative [facility] Positive Internal Control Positive Positive [facility] Telephone Encounteron 2021 Testing And Regulating Technician Authentication Interface Message Text PSE received pre-op COVID test results - NOT DETECTED on 02/23/2022. Document scanned into [employer]. Normal [facility] Covid-19 PCR (CVDTBH)on SARS-CoV-2 (COVID-19) RNA JOHNNIE+probe Ql (Unsp spec) Not detected Normal NOT DETECTED The [facility] Comment on above: Result Comment: When diagnostic [...] for this test is supported by the Grinder Machine Knife Setter of Health and Human Service's declaration that [...] be used). Performed By: #### C #### [facility] [address] [place] [address] Dr. Stephanie Gibbs XR ABDOMEN (KUB) (SINGLE [...] pattern, large colonic fecal Stable left nephrolithiasis [employer] Phone: Radiology Study observation (narrative) [employer] Phone: XR ABDOMEN (KUB) (SINGLE AP VIEW)Ordered By: Adali Gill on 02-19-2022 [employer] Phone: EKG 12 LEAD - PERFORMon 01-21 Diagnosis Normal sinus rhythm Nonspecific T wave abnormality Abnormal ECG No previous ECGs available Confirmed by OLGA MONTES ([id number]) on 02/17/2022 9:51:58 PM [facility] P wave Atrium by EKG 72 BPM [facility] P wave axis 9 degrees [facility] P-R Interval 154 ms [facility] Q-T interval 416 ms [facility] Q-T interval corrected 455 ms [facility] QRS axis 10 degrees [facility] QRS duration [...] PSE contact information provided, order faxed to [facility] per patient request. Normal [facility] PSE Appt H AND Neftali Testing And Regulating Technician Authentication Interface Message Text Patient was identified by name and date of . Quinton Manzo Bill of rights provided to patient Normal [facility] Patient Instructionson 06-28 -2022 Testing And Regulating Technician Authentication Interface Message Text On the morning [...] for pain Please hold all Vitamin E, [place] 3, fish oil and herbal supplements for 1 week prior to surgery Normal [facility] Telephone Encounteron 2021 Testing And Regulating Technician Authentication Interface Message Text Arrangements to be made for pre-op COVID testing per ENT request. Normal [facility] FLUORO FOR SURGICAL PROCEDUR ESon 01-05-2022 Radiology exam is complete. No Radiologist dictation. Please follow up with ordering provider. [facility] , Urineon 2 Beta HCG ( test) Ql (U) Negative NEGATIVE [facility] Comment on above: Specimens with hCG l evels near the threshold of the test (25 mIU/mL) may give a negative or indeterminate result. In such cases, another test should be performed with a new specimen in 48-72 hours. If early is suspected clinically in this setting, correlation with quantitative serum b-hCG level is suggested. [employer] has confirmed the use of plasma for this test. This has not been cleared or approved by the U.S. Food and Drug Administration. The FDA has determined that such clearance is not necessary. [facility] Basic Metabolic Panelon 12-20 Anion gap [Moles/Vol] 8 mmol/L Low 9 - 17 mmol/L [facility] Calcium [Mass/Vol] 8.9 mg/dL 8.6 - 10. 4 mg/dL [facility] Chloride [Moles/Vol] 101 mmol/L 98 - 10 7 mmol/L [facility] CO2 [Moles/Vol] 29 mmol/L 20 - 31 mmol/L [facility] Creatinine [Mass/Vol] 0.87 mg/dL 0.50 - 0.90 mg/dL [facility] GFR >60 >60 mL/min [facility] GFR Non- >60 >60 mL/min [facility] Glucose [Mass/Vol] 98 mg/dL 70 - 99 mg/dL [facility] Interpretation and review of laboratory results Abnormal [facility] Potassium [Moles/Vol] 4.3 mmol/L 3.7 - 5.3 mmol/L [facility] Sodium [Moles/Vol] 138 mmol/L 135 - 144 mmol/L [facility] Urea nitrogen (BldV) [Mass/Vol] 8 mg/dL 6 - 20 mg/dL [facility] Urea nitrogen/Creatinine (Bld) [Mass ratio] 9 [facility] CBC with Auto Differentialon 12-30-2021 Absolute Eos # 0.38 [facility] th Absolute Immature Granulocyte 0.06 [facility] Absolute Lymph # 2.56 [facility] alth Absolute [place] # 0.69 [facility] lth Basophils (Bld) [#/Vol] 0.09 10*3/uL [facility] Basophils/100 WBC (Bld) 1 % 0 - 2 % [facility] Eosinophils/100 WBC (Bld) 4 % 1 - 4 % [facility] Hematocrit (Bld) [Volume fraction] 38.7 % 36.3 - 47.1 % [facility] Hemoglobin.gastrointest inal spec 1 Ql (Stl) 13.0 g/dL 11.9 - 15.1 g/dL [facility] Immature granulocytes/100 WBC (Bld) 1 % High 0 [facility] Interpretation and review of laboratory results Abnormal [facility] Lymphocytes/100 WBC (Bld) 27 % 24 - 43 % [facility] MCH (RBC) [Entitic mass] 33.1 pg 25.2 - 33.5 pg [facility] MCHC (RBC) [Mass/Vol] 33.6 g/dL 28.4 - 34.8 g/dL [facility] MCV (RBC) [Entitic vol] 98.5 fL 82.6 - 102.9 fL [facility] Monocytes/100 WBC (Bld) 7 % 3 - 12 % [facility] NRBC Automated 0.0 0.0 per 100 WBC [facility] Platelet distribution width (Bld) [Ratio] 12.9 % 11.8 - 14.4 % [facility] Platelet mean volume (Bld) [Entitic vol] 9.8 fL 8.1 - 13.5 fL [facility] Platelets (Bld) [#/Vol] 284 10*3/uL [facility] RBC (Bld) [#/Vol] 3.93 10*6/uL Low 3.95 - 5.1 1 m/uL [facility] Segmented neutrophils/100 WBC (Bld) 60 % 36 - 65 % [facility] Segs Absolute 5.62 [facility] W[facility] (Bld) [#/Vol] 9.4 10*3/uL [facility] Laboratory - Chemistry and C hemistry - challengeon 12-30-2021 GFR/1.73 sq M.predicted MDRD (S/P/Bld) [Vol rate/Area] [facility] Comment on above: Average GFR for 40-4 9 years old: 99 mL/min/1.73sq m Chronic Kidney Disease: <60 mL/min/1.73sq m Kidney failure: <15 mL/min/1.73sq m eGFR calculated using average adult body mass. Additional eGFR calculator available at: http://www.[employer]/multiple_crcl_2012.htm Stage 1: Some kidney damage normal GFR Stage 2: Mild kidney damage GFR 60-89 Stage 3: Moderate kidney damage GFR 30-59 Stage 4: Severe kidney damage GFR 15-29 Stage 5: Severe kidney damage GFR <15 ESRD - chronic treatment by dialysis or transplant XR ABDOMEN (KUB) (SINGLE AP VIEW)on 12-22-2021 Nonobstructed bowel-gas pattern. No definite renal or ureteral stones. [facility] EXAMINATION: ONE SUPINE XRAY VIEW(S) OF THE ABDOMEN 12/22/2021 5:15 pm COMPARISON: October 13, 2021 HISTORY: ORDERING SYSTEM PROVIDED HISTORY: Kidney stones TECHNOLOGIST PROVIDED HISTORY: kidney stones FINDINGS: Bowel gas pattern nonobstructed. Renal shadows partially obscured by bowel gas and fecal debris. No definite renal or ureteral stones. No acute osseous abnormality. [facility] Perry Neely DO - [...] pattern. No definite renal or ureteral stones. [employer] Phone: Radiology Study observation (narrative) [email or web address] Phone: XR ABDOMEN (KUB) (SINGLE AP VIEW)Ordered By: Perry Neely on 12-22-2021 [employer] Phone: Office Visit (Cardiology)on 12-02-2021 Follow-up visit [...] Recorded: 02Dec2021 03:38PM Heart Rate72, R Radial [id number] Aaavvzixz14 Height5 ft 2 in Mkuyev530 lb BMI Mmuujwkpsg01.47 kg/m2 BSA Calculated1.84 Tobacco Useb) No PHQ-2 [...] Dec 02 2021 5:03PM EST (Author) Normal [employer] Tobacco Screening.on Adult depression screening assessment No [facility] [employer] [facility] y 250 DO Work Phone: Tobacco use status [facility] b) No M [facility] [facility] y 250 DO Work Phone: Office Visit [...] Follow-up Status: Complete - Retrospective Authorization Done: [id number] SocHx: Former smoker Tobacco Use Screening; Status:Complete; Done: [id number] Tobacco Use Screening; Status:Complete; Done: [id number] Unlinked Stop: Furosemide 40 MG Oral Tablet Stop: Potassium Chloride ER 20 MEQ Oral Tablet Extended Release Patient Instructions By signing my name below, I, Jesus Manuel Capellan LPN, attest that this documentation has been prepared [...] 1 t (more content not included)... Normal [employer] Tobacco Screening.on 022 Adult depression screening assessment Yes [facility] y 250 DO Work Phone: Tobacco use status [facility] b) No [facility] [employer] y 250 DO Work Phone: Tobacco Screening. 1-Several days [facility] [employer] y 250 DO Work Phone: Tobacco Screening. 3-Nearly every day [facility] y 250 DO Work Phone: Tobacco Screening. 0-Not at all [facility] y 250 DO Work Phone: Tobacco Screening. 2-More than half the days [facility] [employer] y 250 DO Work Phone: Vital Signs Date Time Vital Sign Value Performing Clinician Facility 04-16-2024 18:26-0400 Body height 157.48 cm [facility] 04-16-2024 18:26-0400 Body mass index (BMI) [Ratio] 23.9 kg/m2 [facility] 04-16-2024 18:26-0400 Body temperature 98.4 [degF] [facility] 04-16-2024 18:26-0400 Body weight 59.42 kg [facility] 04-16-2024 18:26-0400 Diastolic blood pressure 86 mm[Hg] [facility] 04-16-2024 18:26-0400 Heart rate 89 /min [facility] 04-16-2024 18:26-0400 Respiratory rate 18 /min [facility] 04-16-2024 18:26-0400 SaO2% (BldA) [Mass fraction] 96 % [facility] 04-16-2024 18:26-0400 Systolic blood pressure 127 mm[Hg] [facility] 03-13-2024 15:43-0400 Body height 157.48 cm Gena Aichholz Work Phone: [facility] 03-13-2024 15:43-0400 Body mass index (BMI) [Ratio] 27.3 kg/m2 Gena Aichholz Work Phone: [facility] 03-13-2024 15:43-0400 Body weight 68 kg Gena Aichholz Work Phone: [facility] 12-12-2023 15:54-0400 Body height 157.48 cm Gena Aichholz Work Phone: [facility] 12-12-2023 15:54-0400 Body mass index (BMI) [Ratio] 27.4 kg/m2 Gena Aichholz Work Phone: [facility] 12-12-2023 15:54-0400 Body weight 68.03 kg Gena Aichholz Work Phone: [facility] 12-12-2023 15:54-0400 Diastolic blood pressure 97 mm[Hg] Gena Aichholz Work Phone: [facility] 12-12-2023 15:54-0400 Heart rate 103 /min Gena Aichholz Work Phone: [facility] 12-12-2023 15:54-0400 Systolic blood pressure 137 mm[Hg] Gena Aichholz Work Phone: [facility] 11-02-2023 15:32-0400 Body height 157.48 cm Gena Aichholz Work Phone: [facility] 11-02-2023 15:32-0400 Body mass index (BMI) [Ratio] 27.4 kg/m2 Gena Aichholz Work Phone: [facility] 11-02-2023 15:32-0400 Body weight 68.03 kg Gena Aichholz Work Phone: [facility] 11-02-2023 15:32-0400 Heart rate 67 /min Gena Aichholz Work Phone: [facility] 10-14-2023 12:37-0500 Body height 157.48 cm Gena Aichholz Work Phone: [facility] 10-14-2023 12:37-0500 Body mass index (BMI) [Ratio] 28 kg/m2 Gena Aichholz Work Phone: [facility] 10-14-2023 12:37-0500 Body temperature 99.4 [degF] Gena Aichholz Work Phone: [facility] 10-14-2023 12:37-0500 Body weight 69.62 kg Gena Aichholz Work Phone: [facility] 10-14-2023 12:37-0500 Diastolic blood pressure 94 mm[Hg] Gena Aichholz Work Phone: [facility] 10-14-2023 12:37-0500 Heart rate 81 /min Gena Aichholz Work Phone: [facility] 10-14-2023 12:37-0500 Respiratory rate 16 /min Gena Aichholz Work Phone: [facility] 10-14-2023 12:37-0500 SaO2% (BldA) [Mass fraction] 97 % Gena Aichholz Work Phone: [facility] 10-14-2023 12:37-0500 Systolic blood pressure 131 mm[Hg] Gena Aichholz Work Phone: [facility] 09-20-2023 15:30-0500 Body height 157.48 cm Wiley Mcmanus Other [facility] 09-20-2023 15:30-0500 Body mass index (BMI) [Ratio] 30.18 kg/m2 Wiley Mcmanus Other [facility] [employer] Other 09-20-2023 15:30-0500 Body weight 74.84 kg Wiley Mcmanus Other [facility] 08-08-2023 13:25-0500 Diastolic blood pressure 89 mm[Hg] Gena Aichholz Work Phone: [facility] 08-08-2023 13:25-0500 Heart rate 75 /min Gena Aichholz Work Phone: [facility] 08-08-2023 13:25-0500 Respiratory rate 16 /min Gena Aichholz Work Phone: [facility] 08-08-2023 13:25-0500 SaO2% (BldA) [Mass fraction] 99 % Gena Aichholz Work Phone: [facility] 08-08-2023 13:25-0500 Systolic blood pressure 117 mm[Hg] Gena Aichholz Work Phone: [facility] 08-08-2023 11:41-0500 Body height 157.48 cm Gena Kirby Work Phone: [facility] 08-08-2023 11:41-0500 Body weight 77.11 kg Gena Kirby Work Phone: [facility] 06-30-2023 09:20-0500 Body height 157.48 cm Majo Scmeenaner Other [employer] Other 06-30-2023 09:20-0500 Body mass index (BMI) [Ratio] 30.18 kg/m2 Majo Scovanner Other [employer] Other 06-30-2023 09:20-0500 Body weight 74.84 kg Majo Scovanner Other [employer] Other 06-30-2023 09:20-0500 Diastolic blood pressure 87 mm[Hg] Majo Scovanner Other [employer] Other 06-30-2023 09:20-0500 Systolic blood pressure 115 mm[Hg] Majo Scovanner Other [employer] Other 06-07-2023 12:30-0400 Body height 157.48 cm Louise Johnson Other [employer] Other 06-07-2023 12:30-0400 Body mass index (BMI) [Ratio] 31.05 kg/m2 Louise Johnson Other [employer] Other 06-07-2023 12:30-0400 Body temperature 98 [degF] Louise Johnson Other [employer] Other 06-07-2023 12:30-0400 Body weight 77.02 kg Louise Johnson Other [employer] Other 06-07-2023 12:30-0400 Diastolic blood pressure 78 mm[Hg] Louise Johnson Other [employer] Other 06-07-2023 12:30-0400 Respiratory rate 18 /min Louise Johnson Other [employer] Other 06-07-2023 12:30-0400 SaO2% (BldA) [Mass fraction] 98 % Louise Johnson Other [employer] Other 06-07-2023 12:30-0400 Systolic blood pressure 117 mm[Hg] Louise Johnson Other [employer] Other 07-17-2022 04:28-0500 Body temperature 98.29 [degF] Rikki Rodrigues DMD, MD Work Phone: [facility] 07-17-2022 04:28-0500 Diastolic blood pressure 80 mm[Hg] Rikki Rodrigues DMD, MD Work Phone: [facility] 07-17-2022 04:28-0500 Heart rate 54 /min Rikki Rodrigues DMD, MD Work Phone: [facility] 07-17-2022 04:28-0500 Respiratory rate 18 /min Rikki Rodrigues DMD, MD Work Phone: [facility] 07-17-2022 04:28-0500 SaO2% (BldA) [Mass fraction] 96 % Rikki Rodrigues DMD, MD Work Phone: [facility] 07-17-2022 04:28-0500 Systolic blood pressure 109 mm[Hg] Rikki Rodrigues DMD, MD Work Phone: [facility] 07-14-2022 15:17-0500 Body mass index (BMI) [Ratio] 36.29 kg/m2 Rikki Rodrigues DMD, MD Work Phone: [facility] 07-14-2022 15:17-0500 Body weight 90 kg Rikki Rodrigues DMD, MD Work Phone: [facility] 07-14-2022 14:55-0500 Body height 157.5 cm Rikki Rodrigues DMD, MD Work Phone: [facility] 07-14-2022 09:01-0500 SaO2% (BldA) [Mass fraction] 98.8 % Rikki Rodrigues DMD, MD [facility] Phone: [facility] 07-08-2022 13:59-0500 Body height 157.5 cm Gena Holbrook STRIPPER APPRENTICE-COOK MESS Work Phone: [facility] 07-08-2022 13:59-0500 Body mass index (BMI) [Ratio] 35.96 kg/m2 Gena Peterio STRIPPER APPRENTICE-COOK MESS Work Phone: [email or web address] 07-08-2022 13:59-0500 Body temperature 97.9 [degF] Gena Yusef STRIPPER APPRENTICE-COOK MESS Work Phone: [facility] 07-08-2022 13:59-0500 Body weight 89.18 kg Gena Yusef STRIPPER APPRENTICE-COOK MESS Work Phone: [facility] 07-08-2022 13:59-0500 Diastolic blood pressure 80 mm[Hg] Gena Yusef STRIPPER APPRENTICE-COOK MESS Work Phone: [email or web address] 07-08-2022 13:59-0500 Heart rate 98 /min Gena Yusef STRIPPER APPRENTICE-COOK MESS Work Phone: [facility] 07-08-2022 13:59-0500 Respiratory rate 14 /min Gena Yusef STRIPPER APPRENTICE-COOK MESS Work Phone: [facility] 07-08-2022 13:59-0500 SaO2% (BldA) [Mass fraction] 98 % Gena Holbrook STRIPPER APPRENTICE-COOK MESS Work Phone: [facility] 07-08-2022 13:59-0500 Systolic blood pressure 122 mm[Hg] Gena Holbrook APRN-COOK MESS Work Phone: [facility] 06-18-2022 15:09-0400 Diastolic blood pressure 89 mm[Hg] Rikki Rodrigues DMD, MD Work Phone: [facility] 06-18-2022 15:09-0400 Heart rate 117 /min Rikki Rodrigues DMD, MD Work Phone: [facility] 06-18-2022 15:09-0400 Systolic blood pressure 120 mm[Hg] Rikki Rodrigues DMD, MD Work Phone: [facility] 06-18-2022 15:07-0400 Body height 157.5 cm Rikki Rodrigues DMD, MD Work Phone: [facility] 06-18-2022 15:07-0400 Body mass index (BMI) [Ratio] 34.75 kg/m2 Rikki Rodrigues DMD, MD Work Phone: [facility] 06-18-2022 15:07-0400 Body weight 86.18 kg Rikki Rodrigues DMD, MD Work Phone: [facility] 05-28-2022 09:00-0400 Body height 157.5 cm Pse Rn [facility] 05-28-2022 09:00-0400 Body mass index (BMI) [Ratio] 34.75 kg/m2 Pse Rn [facility] 05-28-2022 09:00-0400 Body weight 86.18 kg Pse Rn [facility] 02-26-2022 12:49-0400 Body temperature 97.81 [degF] Yi Moreno MD Work Phone: [facility] 02-26-2022 12:49-0400 Diastolic blood pressure 57 mm[Hg] Yi Moreno MD Work Phone: [facility] 02-26-2022 12:49-0400 Heart rate 78 /min Yi Moreno MD Work Phone: [facility] 02-26-2022 12:49-0400 Respiratory rate 18 /min Yi Moreno MD Work Phone: [facility] 02-26-2022 12:49-0400 SaO2% (BldA) [Mass fraction] 92 % Yi Moreno MD Work Phone: [facility] 02-26-2022 12:49-0400 Systolic blood pressure 101 mm[Hg] Yi Moreno MD Work Phone: [facility] 02-25-2022 18:16-0400 Body mass index (BMI) [Ratio] 32.92 kg/m2 Yi Moreno MD Work Phone: [facility] 02-25-2022 18:16-0400 Body weight 81.65 kg Yi Moreno MD Work Phone: [facility] 02-25-2022 08:08-0400 Body height 157.5 cm Yi Moreno MD Work Phone: [facility] 02-17-2022 22:11-0400 Heart rate 72 /min Pierce Ramos STRIPPER APPRENTICE-COOK MESS Work Phone: [facility] 02-16-2022 14:19-0400 Body height 157.5 cm Pierce Ramos STRIPPER APPRENTICE-COOK MESS Work Phone: [facility] 02-16-2022 14:19-0400 Body mass index (BMI) [Ratio] 32.92 kg/m2 Pierce Ramos STRIPPER APPRENTICE-COOK MESS Work Phone: [facility] 02-16-2022 14:19-0400 Body temperature 97.3 [degF] Pierce Ramos STRIPPER APPRENTICE-COOK MESS Work Phone: [facility] 02-16-2022 14:19-0400 Body weight 81.65 kg Pierce Ramos STRIPPER APPRENTICE-COOK MESS Work Phone: [facility] 02-16-2022 14:19-0400 Diastolic blood pressure 81 mm[Hg] Pierce Ramos APRN-COOK MESS Work Phone: [facility] 02-16-2022 14:19-0400 Heart rate 74 /min Pierce Ramos APRN-COOK MESS Work Phone: [facility] 02-16-2022 14:19-0400 Respiratory rate 16 /min Pierce Ramos STRIPPER APPRENTICE-COOK MESS Work Phone: [facility] 02-16-2022 14:19-0400 SaO2% (BldA) [Mass fraction] 96 % Pierce Ramos APRN-COOK MESS Work Phone: [facility] 02-16-2022 14:19-0400 Systolic blood pressure 125 mm[Hg] Pierce Ramos APRN-COOK MESS Work Phone: [facility] 01-11-2022 14:20-0400 Diastolic blood pressure 87 mm[Hg] Yi Moreno MD Work Phone: [facility] 01-11-2022 14:20-0400 Heart rate 86 /min Yi Moreno MD Work Phone: [facility] 01-11-2022 14:20-0400 Systolic blood pressure 116 mm[Hg] Yi Moreno MD Work Phone: [facility] 01-11-2022 14:12-0400 Body height 157.5 cm Yi Moreno MD Work Phone: [facility] 01-11-2022 14:12-0400 Body mass index (BMI) [Ratio] 34.39 kg/m2 Yi Moreno MD Work Phone: [facility] 01-11-2022 14:12-0400 Body temperature 98.8 [degF] Yi Moreno MD Work Phone: [facility] 01-11-2022 14:12-0400 Body weight 85.28 kg Yi Moreno MD Work Phone: [facility] 01-11-2022 14:12-0400 Respiratory rate 18 /min Yi Moreno MD Work Phone: [facility] 01-11-2022 14:12-0400 SaO2% (BldA) [Mass fraction] 100 % Yi Moreno MD Work Phone: [facility] 01-05-2022 16:25-0400 Diastolic blood pressure 82 mm[Hg] Bertha Hirsch MD [facility] Phone[facility] 01-05-2022 16:25-0400 Heart rate 87 /min Bertha Hirsch MD Work Phone: [facility] 01-05-2022 16:25-0400 Respiratory rate 16 /min Bertha Hirsch MD Work Phone: [facility] [employer] 01-05-2022 16:25-0400 SaO2% (BldA) [Mass fraction] 94 % Bertha Hirsch MD Work Phone: [facility] 01-05-2022 16:25-0400 Systolic blood pressure 122 mm[Hg] Bertha Hirsch MD Work Phone: [facility] [employer] 01-05-2022 16:00-0400 Body temperature 96.91 [degF] Bertha Hirsch MD Work Phone: [facility] [employer] 01-05-2022 13:35-0400 Body height 157.5 cm Bertha Hirsch MD Work Phone: [facility] 01-05-2022 13:21-0400 Body mass index (BMI) [Ratio] 34.06 kg/m2 Bertha Hirsch MD Work Phone: [facility] 01-05-2022 13:21-0400 Body weight 84.46 kg Bertha Hirsch MD Work Phone: [facility] 12-02-2021 15:38-0400 Body height 157.48 cm Gena Kirby Work Phone: [facility] 250 DO Work Phone: 12-02-2021 15:38-0400 Body mass index (BMI) [Ratio] 33.47 kg/m2 Gena Camachoholarmando Work Phone: [facility] 250 DO Work Phone: 12-02-2021 15:38-0400 Body surface area Derived from formula 1.84 m2 Gena Kirby Work Phone: [facility] 250 DO Work Phone: 12-02-2021 15:38-0400 Body weight 83.01 kg Gena Kirby Work Phone: [facility] 250 DO Work Phone: 12-02-2021 15:38-0400 Diastolic blood pressure 70 mm[Hg] Gena Kirby Work Phone: [facility] 250 DO Work Phone: 12-02-2021 15:38-0400 Heart rate 72 /min Gena Kirby Work Phone: [facility] 250 DO Work Phone: 12-02-2021 15:38-0400 Systolic blood pressure 92 mm[Hg] Gena Kirby Work Phone: [facility] 250 DO Work Phone: 11-09-2021 15:15-0400 Body height 157.48 cm Wiley Mcmanus Other [employer] Other 11-09-2021 15:15-0400 Body mass index (BMI) [Ratio] 32.55 kg/m2 Wiley Mcmanus Other [employer] Other 11-09-2021 15:15-0400 Body temperature 98.5 [degF] Wiley Yonathan Other [employer] Other 11-09-2021 15:15-0400 Body weight 80.74 kg Wiley Yonathan Other [employer] Other 11-09-2021 15:15-0400 Diastolic blood pressure 81 mm[Hg] Wiley Yonathan Other [employer] Other 11-09-2021 15:15-0400 SaO2% (BldA) [Mass fraction] 94 % Wiley Yonathan Other [employer] Other 11-09-2021 15:15-0400 Systolic blood pressure 122 mm[Hg] Wiley Yonathan Other [employer] Other 10-14-2021 15:34-0500 Diastolic blood pressure 98 mm[Hg] Genasue Kirby Work Phone: [facility] [employer] 250 DO Work Phone: 10-14-2021 15:34-0500 Systolic blood pressure 152 mm[Hg] Genasue Mcdonnellz Work Phone: [facility] [employer] 250 DO Work Phone: 10-14-2021 15:23-0500 Body height 157.48 cm Genasue Maldonadohholz Work Phone: [facility] 250 DO Work Phone: 10-14-2021 15:23-0500 Body mass index (BMI) [Ratio] 33.47 kg/m2 Genasue Maldonadohholz Work Phone: [facility] [employer] 250 DO Work Phone: 10-14-2021 15:23-0500 Body surface area Derived from formula 1.84 m2 Gena Jang Aichholz Work Phone: [facility] 250 DO Work Phone: 10-14-2021 15:23-0500 Body weight 83.01 kg Gena Jang Aichholz Work Phone: [facility] 250 DO Work Phone: 10-14-2021 15:23-0500 Diastolic blood pressure 98 mm[Hg] Gena Jang Aichholz Work Phone: [facility] 250 DO Work Phone: 10-14-2021 15:23-0500 Heart rate 78 /min Gena Jang Aichholz Work Phone: [facility] 250 DO Work Phone: 10-14-2021 15:23-0500 Systolic blood pressure 160 mm[Hg] Gena Jang Aichholz Work Phone: [facility] 250 DO Work Phone: 10-14-2021 15:23-0500 16 1 Gena Jang Aichholz Work Phone: [facility] 250 DO Work Phone: Comment on above: PHQ-9 TS Encounters Encounter Date Encounter Type Care Provider Facility Start: 05-02-2024 End: 05-02-2024 ambulatory GENA AICHHOLZ Not Available Start: 04-17-2024 End: 04-17-2024 ambulatory GENA AICHHOLZ Not Available Start: 04-16-2024 End: 04-16-2024 ambulatory [facility] Work Phone: Start: 04-16-2024 End: 04-16-2024 Patient encounter procedure [facility] Work Phone: Start: 04-12-2024 End: 04-12-2024 ambulatory [facility] Start: 04-02-2024 End: 04-02-2024 ambulatory GENA JANICEHOLZ [facility] Start: 03-26-2024 End: 03-26-2024 ambulatory GENA AICHHOLZ Not Available Start: 03-13-2024 End: 03-13-2024 ambulatory Gena J Aichholz Work Phone: [facility] Work Phone: Start: 03-13-2024 End: 03-13-2024 Patient encounter procedure Gena Joeltiffholz Work Phone: [facility] Gastroenterology Work Phone: Start: 01-25-2024 End: 01-25-2024 ambulatory GENA AICHHOLZ Not Available Start: 12-29-2023 End: 12-29-2023 ambulatory Gena J Aichholz Facility:[facility] Start: 12-29-2023 End: 12-29-2023 ambulatory Gena J Aichholz Work Phone: [facility] Work Phone: Start: 12-29-2023 End: 12-29-2023 Departed Referred Gena Joeltiffholz Work Phone: [facility]-LAB [facility] Start: 12-28-2023 End: 12-28-2023 ambulatory MAJO Andino [facility] Start: 12-16-2023 End: 12-16-2023 ambulatory Gena J Aichholz Facility:[facility] Start: 12-16-2023 End: 12-16-2023 ambulatory Gena J Aichholz Work Phone: [facility] Work Phone: Start: 12-16-2023 Non-patient / Non-visit Gena A ichholz Work Phone: [facility] Sleep Lab Work Phone: Start: 12-16-2023 End: 12-16-2023 Patient encounter procedure Gena Janiceholz Work Phone: [facility]-Sleep Lab Work Phone: Start: 12-14-2023 End: 12-14-2023 ambulatory Gena J Aichholz Work Phone: [facility] Work Phone: Start: 12-14-2023 End: 12-14-2023 Patient encounter procedure Gena Aichholz Work Phone: [facility]-Sleep Lab Work Phone: Start: 12-12-2023 End: 12-12-2023 ambulatory Gena J Aichholz Work Phone: [facility] Work Phone: Start: 12-12-2023 End: 12-12-2023 Patient encounter procedure Gena Aichholz Work Phone: [facility] Physician [facility] Gastroenterology Work Phone: Start: 11-24-2023 End: 11-24-2023 ambulatory MAJO Andino ALAYNA [facility] Start: 11-22-2023 End: 11-22-2023 ambulatory ROSHNI ANDERS Not Available Start: 11-02-2023 End: 11-02-2023 Patient encounter procedure Gena Aichholz Work Phone: [facility] Physician [facility] Gastroenterology Work Phone: Start: 10-14-2023 End: 10-14-2023 ambulatory Gena J Aichholz Work Phone: [facility] Work Phone: Start: 10-14-2023 End: 10-14-2023 Patient encounter procedure Gena Aichholz Work Phone: [facility] Work Phone: Start: 10-11-2023 End: 10-11-2023 ambulatory MAJO Andino [facility] Start: 09-29-2023 End: 10-02-2023 ambulatory ELIN [facility] Start: 09-20-2023 End: 09-20-2023 ambulatory Gena Andino Joeltifffreddyarmando Facility:[facility] Start: 09-20-2023 End: 09-20-2023 Patient encounter procedure Gena Camachofreddyarmando Work Phone: [facility]-Sleep Lab Work Phone: Start: 09-20-2023 End: 09-20-2023 ambulatory Gena Andino Joeltifffreddyarmando Work Phone: [facility] Work Phone: Start: 09-20-2023 Office outpatient vi sit 25 minutes Wiley Mcmanus [facility] Start: 09-20-2023 End: 09-20-2023 Patient encounter procedure Gena Kirby Work Phone: [facility]- Start: 09-15-2023 End: 09-16-2023 ambulatory ELIN [facility] Start: 08-26-2023 End: 08-26-2023 ambulatory MAJO Andino [facility] Start: 08-24-2023 End: 08-24-2023 ambulatory GENA JOELTiffFREDDYZ Not Available Start: 08-12-2023 End: 08-12-2023 ambulatory Imad Asaad Other [facility] [employer] Other Start: 08-12-2023 Telephone encounter Imad Asaad [facility] Start: 08-10-2023 End: 08-10-2023 ambulatory Imad Asaad Other [employer] Other Start: 08-10-2023 Telephone encounter Imad Asaad [facility] Start: 08-08-2023 End: 08-08-2023 ambulatory Gena J Aichholz Facility:[facility] Start: 08-08-2023 End: 08-08-2023 Admission to same day surgery center Gena Kirby Work Phone: [facility]-Digestive Health Work Phone: Start: 08-08-2023 End: 08-08-2023 ambulatory Gena Kirby Work Phone: [facility] Work Phone: Start: 06-30-2023 End: 06-30-2023 Patient encounter procedure Gena Kirby Work Phone: [facility]-Lab Main Mcdaniel Work Phone: Start: 06-30-2023 End: 06-30-2023 ambulatory Gena Kirby Work Phone: [employer] Other Start: 06-30-2023 Office outpatient ne w 30 minutes Majo Lyman [facility] Start: 06-30-2023 End: 06-30-2023 Patient encounter procedure Gena Kirby Work Phone: [facility] Work Phone: Start: 06-07-2023 End: 06-07-2023 ambulatory Louise Johnson Other [employer] Other Start: 06-07-2023 Encounter by nat Johnson [facility] Start: 06-07-2023 Office outpatient vi sit 25 minutes Louise Johnson [facility] Start: 03-16-2023 End: 03-16-2023 ambulatory Wiley Mcmanus Facility:[facility] Start: 03-16-2023 End: 03-16-2023 ambulatory Gena Camachoholz Work Phone: [facility] Work Phone: Start: 03-16-2023 End: 03-16-2023 Patient encounter procedure Gena Kirby Work Phone: [facility]-Sleep Lab Work Phone: Start: 03-08-2023 End: 03-11-2023 ambulatory ELIN [facility] Start: 01-26-2023 Telephone encounter Rikki norris DMD, MD Work Phone: [facility] Oral Surgery Start: 01-18-2023 ambulatory COOK MESS GENA KIRBY Facil ity:[facility] Start: 12-13-2022 End: 12-14-2022 ambulatory ELIN [facility] Start: 12-13-2022 End: 12-13-2022 Subsequent hospital visit by physician Gena Janiceludmila Work Phone: [facility] Laboratory Comment on above: OAB (overactive blad darinel); Urge incontinence; Frequency of urination Start: 11-26-2022 End: 11-26-2022 ambulatory COOK MESS GENA KIRBY Facility:[facility] Start: 11-16-2022 End: 11-16-2022 ambulatory Gena Kirby Work Phone: [facility] Work Phone: Start: 11-16-2022 End: 11-16-2022 Patient encounter procedure Gena Kirby Work Phone: [facility]-Sleep Lab Work Phone: Start: 11-12-2022 End: 11-12-[address] OSWALD HARRINGTON . Facility:[facility] Start: 11-04-2022 Telephone encounter Yi wylie MD Work Phone: [facility] Otolaryngology (ENT) Start: 11-01-2022 Encounter for preprocedural cardiovascular examination DR OSWALD HARRINGTON . [facility] Start: 11-01-2022 Telephone encounter Rikki norris DMD, MD Work Phone: [facility] Oral Surgery Start: 10-28-2022 End: 10-29-[address] OSWALD HARRINGTON . Facility:[facility] Start: 10-28-2022 End: 10-29-2022 Encounter for preprocedural cardiovascular examination DR OSWALD HARRINGTON . Facility:[facility] Start: 10-19-2022 End: 10-19-2022 ambulatory [facility]ER [facility] Start: 09-24-[address] OSWALD HARRINGTON . Facili ty:[facility] Start: 09-21-[address] OSWALD HARRINGTON . Facili ty:[facility] Start: 09-02-2022 End: 09-03-2022 ambulatory BRIAN KIRBY Facility:[facility] Start: 08-30-2022 ambulatory UNKNOWN PROVIDER [facility] Start: 08-30-2022 End: 08-30-2022 Follow-up encounter Rikki Rodrigues DMD, MD Work Phone: [facility] Start: 08-30-2022 End: 08-30-2022 Patient encounter procedure Rikki Rodrigues DMD, MD Work Phone: [facility] Surgery Comment on above: Post-operative state (Primary Dx) Start: 08-12-2022 End: 08-12-2022 Subsequent hospital visit by physician [facility]a Kirby [facility] Comment on above: Dysuria Start: 08-11-2022 [...] patient Rikki Rodrigues DMD, MD Work Phone: [facility] Oral Surgery Comment on above: DIONNE (obstructive sle ep apnea) (Primary Dx) Start: 07-23-2022 End: 07-23-2022 ambulatory UNKNOWN PROVIDER Facility:[facility] Start: 07-14-2022 End: 07-17-2022 Evaluation and management of inpatient RIKKI MAYRARamesh [facility] Start: 07-14-2022 End: 07-15-2022 ambulatory RIKKI CLEPRRamesh Facility:[facility] Start: 07-14-2022 End: 07-14-2022 Subsequent hospital visit by physician Rikki Rodrigues DMD, MD Work Phone: [facility] Radiology Comment on above: Arrived Start: 07-14-2022 End: 07-17-2022 Evaluation and management of inpatient Rikki Rodrigues DMD, MD Work Phone: [facility] [address] Comment on above: DIONNE (obstructive sle ep apnea) (Primary Dx); Pain Start: 07-09-2022 Telephone encounter Yi wylie MD Work Phone: [facility] Otolaryngology (ENT) Comment on above: Patient questions/co ncerns (Patient asking what next step is after jaw surgery) Start: 07-08-2022 End: 07-09-2022 ambulatory UNKNOWN PROVIDER Facility:[facility] Start: 07-08-2022 End: 07-09-2022 Office outpatient new 45 minutes Gena MORRIS Work Phone: [facility] Pre Surgical Evaluation Comment on above: Pre-op testing (Prim amy Dx); Body mass index (BMI) 35.0-35.9, adult Start: 07-08-2022 End: 07-09-2022 Patient encounter status Gena Holbrook APRN-BRIAN Work Phone: [facility] Pre Surgical Evaluation Start: 07-07-2022 End: 07-08-2022 ambulatory COOK MESS GENA KIRBY Facility: Start: 07-06-2022 End: 07-06-2022 Patient encounter procedure Pierce Ramos APRN-COOK MESS Work Phone: [facility] Pre-Surgical Evaluation Comment on above: ENCOUNTER OPENED IN ERROR (Primary Dx) Start: 07-05-2022 Telephone encounter Mary guy RN [facility] Pre Surgical Evaluation Comment on above: Pre-surgical Evaluat ion (Pre-op COVID testing not needed ) Start: 07-02-2022 End: 07-06-2022 ambulatory UNKNOWN PROVIDER Facility:[facility] Start: 07-02-2022 End: 07-02-2022 Follow-up encounter Rikki Rodrigues DMD, MD Work Phone: [facility] Oral Surgery Start: 07-02-2022 End: 07-02-2022 Patient encounter procedure Rikki Rodrigues DMD, MD Work Phone: [facility] Oral Surgery Comment on above: DIONNE (obstructive sle ep apnea) (Primary Dx) Start: 06-18-2022 End: 06-20-2022 Office outpatient new 30 minutes Rikki Rodrigues DMD, MD Work Phone: [facility] Oral Surgery Comment on above: Obstructive sleep ap shaun (Primary Dx); DIONNE (obstructive sleep apnea); Body mass index (BMI) 34.0-34.9, adult Start: 06-18-2022 End: 06-20-2022 Orders Only Saleem Mi CHAU Work Phone: [facility] Oral Surgery Start: 06-15-2022 End: 06-15-2022 ambulatory UNKNOWN PROVIDER Facility:[facility] Start: 06-03-2022 End: 06-03-2022 ambulatory YI MORENO Facility:[facility] Start: 05-31-2022 End: 05-31-2022 ambulatory Isabel Sin Other [employer] Other Start: 05-31-2022 Office outpatient vi sit 5 minutes Isabel Sin [facility] Start: 05-28-2022 Telephone encounter Mary guy RN [facility] Pre Surgical Evaluation Comment on above: Pre-surgical Evaluat ion (Pre-op COVID testing) Start: 05-28-2022 ambulatory UNKNOWN PROVIDER Facili ty:[facility] Start: 05-28-2022 End: 05-28-2022 Nursing evaluation of patient and report Pse Rn [facility] Pre Surgical Evaluation Comment on above: Preop examination (P rimary Dx) Start: 05-28-2022 End: 05-28-2022 Preprocedural examination done Pse Rn [facility] Pre Surgical Evaluation Start: 05-26-2022 Telephone encounter Mary guy RN [facility] Pre Surgical Evaluation Comment on above: Pre-surgical Evaluat ion (Pre-op COVID testing) Start: 05-19-2022 End: 05-19-2022 ambulatory Gena Andino Kofi Work Phone: [facility] Work Phone: Start: 05-19-2022 End: 05-19-2022 Patient encounter procedure Gena Kofi Work Phone: [facility]-Sleep Lab Start: 05-18-2022 Letter encounter Yi saunders MD Work Phone: [facility] Otolaryngology (ENT) Start: 05-17-2022 End: 05-18-[address] WILEY POE Facility:[facility]1 Start: 05-11-2022 End: 05-12-[address] OSWALD HARRINGTON . Facility:[facility] Start: 05-07-2022 End: 05-08-[address] OSWALD HARRINGTON . Facility: Start: 03-29-2022 End: 03-30-2022 Phys/qhp telephone evaluation 11-20 min Yi Moreno MD Work Phone: [facility] Otolaryngology (ENT) Comment on above: DIONNE (obstructive sle ep apnea) (Primary Dx) Start: 03-29-2022 End: 03-30-2022 ambulatory UNKNOWN PROVIDER Facility:[facility] Start: 03-09-2022 End: 03-10-2022 ambulatory BRIAN KIRBY Facility:[facility]1 Start: 03-09-2022 Telephone encounter Yi wylie MD Work Phone: [facility] Otolaryngology (ENT) Start: 02-25-2022 End: 02-26-2022 Evaluation and management of inpatient YI MORENO Facility:[facility] Start: 02-25-2022 End: 02-26-2022 Subsequent hospital visit by physician Yi Moreno MD Work Phone: Inpatient 8B Comment on above: Encounter for labora tory testing for severe acute respiratory syndrome coronavirus 2 (SARS-CoV-2) (Primary Dx); DIONNE (obstructive sleep apnea); Postoperative pain Start: 02-24-2022 Telephone encounter Mary guy RN [facility] Pre Surgical Evaluation Comment on above: Pre-surgical Evaluat ion (Pre-op COVID testing - results) Start: 02-23-2022 End: 02-24-[address] DOCTOR ABDULLAHI Facility: Start: 02-19-2022 End: 02-21-2022 Subsequent hospital visit by physician Yaneth Sharp Dr Room 2 [facility] Radiology Comment on above: Ureteral stone Start: 02-17-2022 Telephone encounter Mary guy RN [facility] Pre Surgical Evaluation Comment on above: Pre-surgical Evaluat ion (Pre-op COVID testing) Start: 02-16-2022 End: 02-18-2022 ambulatory UNKNOWN PROVIDER Facility:[facility] Start: 02-16-2022 Encounter for other preprocedural examination UNKNOWN PROVIDER [facility] Start: 02-16-2022 End: 02-17-2022 Office outpatient new 45 minutes Pierce Ramos APRN-COOK MESS Work Phone: [facility] Pre-Surgical Evaluation Comment on above: Preop testing (Prima ry Dx); Abnormal electrocardiogram (ECG) (EKG); Body mass index (BMI) 32.0-32.9, adult Start: 02-16-2022 End: 02-17-2022 Patient encounter status Pierce Ramos APRN-COOK MESS Work Phone: [facility] Pre-Surgical Evaluation Start: 02-16-2022 Telephone encounter Yi wylie MD Work Phone: [facility] Otolaryngology (ENT) Start: 02-11-2022 Telephone encounter Mary guy RN [facility] Pre Surgical Evaluation Comment on above: Pre-surgical Evaluat ion (Pre-op COVID testing) Start: 02-04-2022 Letter encounter Yi saunders MD Work Phone: [facility] Otolaryngology (ENT) Start: 01-12-2022 End: 01-12-2022 ambulatory Wiley Mcmanus Other [employer] Other Start: 01-12-2022 Telephone encounter Wiley Mcmanus [facility] Sleep Lab Start: 01-11-2022 End: 01-11-2022 Office consultation new/estab patient 60 min Yi Moreno MD Work Phone: [facility] Otolaryngology (ENT) Comment on above: DIONNE (obstructive sle ep apnea) (Primary Dx); Body mass index (BMI) 34.0-34.9, adult Start: 01-05-2022 End: 01-05-2022 Subsequent hospital visit by physician Bertha Hirsch MD Work Phone: [facility] OR Start: 12-30-2021 End: 12-30-2021 Patient encounter status Gena Kirby Work Phone: [facility] Laboratory Start: 12-30-2021 End: 12-30-2021 Subsequent hospital visit by physician Gena Kirby Work Phone: [facility] Laboratory Comment on above: Pre-op testing Start: 12-22-2021 End: 12-24-2021 Subsequent hospital visit by physician [facility] Radiology Comment on above: Kidney stones Start: 12-02-2021 Office outpatient vi sit 10 minutes Gena Kirby Work Phone: [facility]ini 250 DO Work Phone: Start: 11-09-2021 End: 11-09-2021 ambulatory Wiley Mcmanus Other [employer] Other Start: 11-09-2021 Office outpatient vi sit 40 minutes [facility] Start: 10-14-2021 Office outpatient vi sit 25 minutes Gena Jang Joeltifffreddyarmando Work Phone: [facility] 250 DO Work Phone: Procedures Date Procedure Procedure Detail Performing Clinician Start: 12-14-2023 End: 12-14-2023 Diagnostic radiography of abdomen Gena mckeon Work Phone: Start: 10-14-2023 COVID/Influenza PCR (POC) Gena Joeltiffludmila Work Phone: Start: 08-08-2023 Colonoscopy Gena Joeltiffludmila Work Phone: Start: 12-13-2022 Urnls dip stick/tablet reagent auto microscopy Elin Lorenz STRIPPER APPRENTICE - COOK MESS Work Phone: Start: 08-12-2022 Urnls dip stick/tablet [...] Phone: Start: 07-14-2022 Urine test visual color cmpevangelist Mi CHAU Work Phone: Start: 07-14-2022 Glucose blood reagent strip Rikki frey DMD, MD Work Phone: Start: 07-08-2022 Blood typing serologic abo Gena DEL CASTILLO RN-COOK MESS Work Phone: Start: 07-08-2022 Blood count complete automated Gena vasquez STRIPPER APPRENTICE-COOK MESS Work Phone: Start: 07-08-2022 Blood typing, ABO, Rho(D) and RBC antibody screening Gena Holbrook STRIPPER APPRENTICE-COOK MESS Work Phone: Start: 06-18-2022 panoramic radiographic image Rikki love DMD, MD Work Phone: Start: 02-25-2022 End: 02-25-2022 UVULOPALATOPHARYNGOPLASTY Yi Moreno MD Work Phone: Start: 02-25-2022 Urine test visual color cmprsn morgans Yi Moreno MD Work Phone: Start: 02-19-2022 Radiologic exam abdomen 1 view Jerel D Do rkoskie PA-C Work Phone: Start: 02-16-2022 Ecg routine ecg w/least 12 lds trcg only w/o i&r Pierce Ramos STRIPPER APPRENTICE-COOK MESS Work Phone: Start: 01-11-2022 Laryngoscopy flexible diagnostic Yi Moreno MD Work Phone: Start: 01-05-2022 Fluoroscopy during operation Bertha john MD Work Phone: Start: 01-05-2022 Urine test visual color cmprsn migel Rodrigues STRIPPER APPRENTICE - POSTBED STITCHER Start: 12-30-2021 Basic metabolic panel calcium total Jerel D Dorkoskie PA-C Work Phone: Start: 12-22-2021 Radiologic exam abdomen 1 view Jerel D Do rkoskie PA-C Work Phone: section Gena Laine Aic hholz Work Phone: Cholecystectomy Gena Jo Aich ludmila Work Phone: Dental surgical procedure Cassandra Jang Aichholz Work Phone: History of tonsillectomy History of tonsillectomy Gena Aichholz Work Phone: Lithotripsy Gena Jo Aichhol z Work Phone: Plan of Treatment Date Care Activity Detail Author Start: 2025 Shingles (RZV) Vaccine (1 of 2) Shingles (RZV) Vaccine (1 of 2) [facility] Start: 08-08-2023 [facility] Start: 03-22-2023 Influenza vaccination Flu vaccine (Season Ended) [facility] Start: 02-21-2023 End: 02-21-2023 Patient encounter procedure 02/21/2023 Office Visit Urology [facility] Start: 12-21-2022 Cholesterol [Mass/volume] in Serum or Plasma Cholesterol [facility] Start: 10-19-2022 End: 10-19-2022 Patient encounter procedure 10/19/2022 Office Visit Ent-Otolaryngology Yi Moreno MD [address] [place] [phone] [facility] [place] Otolaryngology (ENT) Start: 08-13-2022 End: 08-13-2022 Patient encounter procedure 08/13/2022 Office Visit Or al Surgery Rikki Rodrigues DMD, MD [address] [place] [phone] [facility] Oral Surgery Start: 07-30-2022 End: 07-30-2022 Patient encounter procedure 07/30/2022 Office Visit Or al Surgery Rikki Rodrigues DMD, MD [address] [place] [address] [facility] Oral Surgery Start: 07-23-2022 End: 07-23-2022 Telemedicine consultation with patient 07/23/2022 Telemedicine Oral Surgery Rikki Rodrigues DMD, MD [address] [place] [address] [facility] Oral Surgery Start: 07-14-2022 End: 07-14-2022 Admission to same day surgery center 07/14/2022 Surgery General Surgery Rikki Rodrigues DMD, MD [address] [place] [address] LEFORTE I OSTEOTOMY [facility] Main OR Comment on above: LEFORTE [...] Encounter General Surgery Rikki Rodrigues DMD, MD [address] [place] [phone] [facility] Main OR Start: 07-14-2022 End: 07-14-2022 Admission to same day surgery center 07/14/2022 Surgery General Surgery Rikki Rodrigues DMD, MD [address] [place] [address] 39568 LEFORTE I OSTEOTOMY [facility] Main OR Comment on above: LEFORTE I OSTEOTOMY Start: 07-14-2022 End: 07-14-2022 Anesthesia consultation 07/14/2022 Anesthesia Event General Surgery Ki Atwood MD [address] [place] [phone] [facility] Main OR Start: 07-14-2022 End: 07-14-2022 [...] Encounter General Surgery Rikki Rodrigues DMD, MD [address] [place] [phone] [facility] Main OR Start: 07-08-2022 End: 07-08-2022 Patient encounter procedure 07/08/2022 Office Visit Presurgical Evaluation Gena Holbrook, KATHRIN-BRIAN [address] [place] [address] [facility] Pre Surgical Evaluation Start: 07-06-2022 End: 07-06-2022 Patient encounter procedure 07/06/2022 Office Visit Presurgical Evaluation Pierce Ramos APRN-BRIAN [address] [place] [phone] Preop testing (Primary Dx) [facility] Pre-Surgical Evaluation Comment on above: Preop testing (Primary Dx) Start: 06-15-2022 End: 06-15-2022 Patient encounter procedure 06/15/2022 Office Visit Ent-Otolaryngology Yi Moreno MD [address] [place] [address] [facility] Otolaryngology (ENT) Start: 06-03-2022 End: 06-03-2022 Admission to same day surgery center 06/03/2022 Surgery Ambulatory Surgery Yi Moreno MD [address] [place] [phone] BRONCHOSCOPY, FLEXIBLE, DRUG INDUCED SLEEP ENDOSCOPY (DISE) [facility] Main OR PACU Comment on above: BRONCHOSCOPY, FLEXIBLE, DRUG INDUCED SLE EP ENDOSCOPY (DISE) Start: 06-03-2022 End: 06-03-2022 BRONCHOSCOPY, FLEXIBLE, DRUG INDUCED SLEEP ENDOSCOPY (DISE) BRONCHOSCOPY, FLEXIBLE, DRUG INDUCED SLEEP ENDOSCOPY (DISE) Routine scheduled DIONNE (obstructive sleep apnea) 06/03/2022 8:39 AM EDT PACU Procedure Rooms Start: 06-03-2022 Subsequent hospital visit by physician [facility] Main OR PACU Comment on above: Encounter for laboratory testing for sev ere acute respiratory syndrome coronavirus 2 (SARS-CoV-2) (Primary Dx) Start: 05-28-2022 End: 05-28-2022 Nursing evaluation of patient and report 05/28/2022 Nurse Visit Presurgical Evaluation [facility] Pre Surgical Evaluation Start: 05-22-2022 Influenza vaccination Influenza Vaccine (#1) [facility] Start: 04-22-2022 Influenza vaccination [facility] Start: 03-29-2022 End: 03-29-2022 Telemedicine consultation with patient 03/29/2022 Telemedicine Ent-Otolaryngology Yi Moreno MD [address] [place] [address] [phone] [facility] [place] Otolaryngology (ENT) Start: 03-24-2022 FUV, Provider: Eileen Nichols, Status: Pen, Time: 3:50 PM FUV, Provider: Eileen Nichols, Status: Pen, Time: 3:50 PM [facility] 250 DO Work Phone: Start: 03-22-2022 Influenza vaccination [facility] Start: 02-25-2022 End: 02-25-2022 Admission to same day surgery center 02/25/2022 Surgery General Surgery Yi Moreno MD [address] [place] [address] UVULOPALATOPHARYNGOPLASTY [facility] Main OR Comment on above: UVULOPALATOPHARYNGOPLASTY Start: 02-25-2022 Subsequent hospital visit by physician [facility] Main OR Comment on above: Encounter for laboratory testing for sev ere acute respiratory syndrome coronavirus 2 (SARS-CoV-2) (Primary Dx) Start: 02-25-2022 End: 02-25-2022 UVULOPALATOPHARYNGOPLASTY [facility] Start: 02-25-2022 End: 02-25-2022 Admission to same day surgery center 02/25/2022 Surgery General Surgery Yi Moreno MD [address] [place] [address]43 UVULOPALATOPHARYNGOPLASTY [facility] Main OR Comment on above: UVULOPALATOPHARYNGOPLASTY Start: 02-25-2022 Subsequent hospital visit by physician 02/25/2022 Hospital Encounter General Surgery Yi Moreno MD [address] [place] [phone] Encounter for laboratory testing for severe acute respiratory syndrome coronavirus 2 (SARS-CoV-2) (Primary Dx) [facility] Main OR Comment on above: Encounter for laboratory testing for sev ere acute respiratory syndrome coronavirus 2 (SARS-CoV-2) (Primary Dx) Start: 02-25-2022 End: 02-25-2022 UVULOPALATOPHARYNGOPLASTY UVULOPALATOPHARYNGOPLASTY Routine scheduled DIONNE (obstructive sleep apnea) 02/25/2022 9:20 AM EDT [facility] Start: 02-23-2022 End: 02-23-2022 Patient encounter procedure 02/23/2022 Office Visit Urology Elin Lorenz APRN - COOK MESS [address] [place] [address] [facility] Start: 02-16-2022 End: 02-16-2022 Patient encounter procedure 02/16/2022 Office Visit Presurgical Evaluation Pierce Ramos APRN-COOK MESS [address] [place] [address] [facility] Pre-Surgical Evaluation Start: 01-08-2022 End: 01-08-2022 Patient encounter procedure 01/08/2022 Office Visit Urology Elin Lorenz APRN - COOK MESS [address] [place] [address] [facility] Start: 01-05-2022 End: 01-05-2022 Cysto/uretero w/lithotripsy &indwell stent insrt CYSTOSCOPY URETEROSCOPY LASER KIDNEY STONES 01/05/2022 2:57 PM [address]T [facility] Start: 12-06-2021 COVID-19 Vaccine (3 - Booster for Pfizer series) COVID-19 Vaccine (3 - Booster for Pfizer series) [facility] Start: 04-12-2022 NURSEVST, Provider: AUSTIN WALL [employer]ER OPT[employer] TECHNICIAN 1,[id number], Status: Pen, Time: 3:15 PM NURSEVST, Provider: AUSTIN W[employer] OPT[employer] TECHNICIAN 1,[id number], Status: Pen, Time: 3:15 PM -[facility]-Rohini 250 DO Work Phone: Start: 09-02-2021 COVID-19 Vaccine (3 - Booster for Pfizer series) COVID-19 Vaccine (3 - Booster for Pfizer series) [facility] Start: 2020 Cholesterol [Mass/volume] in Serum or Plasma Cholesterol [facility] Start: 2020 Screening for malignant neoplasm of colon [facility] Start: 2015 Lipid panel Lipids [facility] Start: 2015 Screening for malignant neoplasm of breast Mammography [facility] Start: 2010 Diabetes screen Diabetes screen [facility] Start: 2005 Screening for malignant neoplasm of cervix [facility] Start: 1996 Screening for malignant neoplasm of cervix Pap smear [facility] Start: 1994 DTaP/Tdap/Td vaccine (1 - Tdap) DTaP/Tdap/Td vaccine (1 - Tdap) [facility] Start: 1993 Creatinine measurement Creatinine [facility] Start: 1993 Hepatitis C screening [facility] Start: 1993 Potassium [Moles/volume] in Serum or Plasma Potassium [facility] Start: 1993 Tetanus + diphtheria + acellular pertussis vaccine (product) Tdap Booster [facility] Start: 1990 HIV screening [facility] Start: 1987 Depression Monitoring Depression Monitoring [facility] Start: 1975 Screening for malignant neoplasm of colon Colonoscopy [facility] Assay of magnesium MAGNESIUM Lab STAT [...] (DISE) Routine scheduled DIONNE (obstructive sleep apnea) [facility] Surgery [place] Calprotectin [Mass/m ass] in Stool [facility] CBC panel - Blood by Automated count COMPLETE BLOOD COUNT Lab STAT Daily until discontinued starting 07/16/2022, 2 completed [employer] Work Phone: Comment on above: Daily until discontinued starting 2021, 2 completed End: 08-12-2022 Culture, Urine [employer] Work Phone: Comment on above: 1 Occurrences starting 08/12/2022 until 08/12/2022 End: 12-13-2022 Culture, Urine [employer] Work Phone: Comment on above: 1 Occurrences starting 12/13/2022 until 12/13/2022 Diagnostic radiograp hy of abdomen [facility] Diagnostic radiograp hy of abdomen [facility] End: 07-14-2022 Ecg routine ecg w/least 12 lds trcg only w/o i&r EKG 12 LEAD - PERFORM MUSE Routine Once for 1 Occurrences starting 07/14/2022 until 07/14/2022 [employer] Work Phone: Comment on above: Once for 1 Occurrences starting 07/14/20 until 07/14/2022 Elastase.pancreatic [Mass/mass] in Stool [facility] Endomysial antibody IgA level [facility] Gliadin peptide IgA Ab [Units/volume] in Serum [facility] Gliadin peptide IgG Ab [Units/volume] in Serum [facility] HIV 1+2 Ab+HIV1 p24 Ag [Presence] in Serum or Plasma by Immunoassay [facility] IgA [Mass/volume] in Serum or Plasma [facility] End: 01-05-2022 INITIATE PACU OXYGEN THERAPY PROTOCOL Initiate PACU Oxygen Therapy Protocol Respiratory Care Routine Continuous until discontinued starting 01/05/2022 [employer] Comment on above: Continuous until discontinued starting 0 01/05/2022 Oxygen therapy [Mini mum Data Set] Initiate Oxygen Therapy Protocol Respiratory Care Routine As Needed until discontinued starting 01/05/2022 [facility] Work Phone: Comment on above: As Needed until discontinued starting End: 02-25-2022 Palatopharyngoplasty PALATOPHARYNGOPLASTY Procedures Routine One time for 1 Occurrences starting 02/25/2022 until 02/25/2022 [employer] Comment on above: One time for 1 Occurrences starting 02/2022 until 02/25/2022 Patient Education [facility] Work Phone: Rcnstj midface lefor t i 1 piece w/o bone graft RECONSTRUCTION MIDFACE, LEFORT I; 1 PIECE, W/O BONE GRAFT Procedures Routine DIONNE (obstructive sleep apnea) Ordered: 07/14/2022 [employer] Work Phone: Comment on above: Ordered: 07/14/2022 Rcnstj mndblr rami&/ bdy sgtl splt w/int rgd fi RECONSTRUCTION, MANDIBULAR RAMI &/OR BODY, SAGITTAL SPLIT; W/INT RIGID FIXATION Procedures Routine DIONNE (obstructive sleep apnea) Ordered: 07/14/2022 [employer] Comment on above: Ordered: 07/14/2022 End: 03-17-2022 SARS-CoV-2 (COVID-19) RNA [Presence] in Unspecified specimen by JOHNNIE with probe detection NOVEL CORONAVIRUS (COVID-19) Lab STAT Encounter for laboratory testing for severe acute respiratory syndrome coronavirus 2 (SARS-CoV-2) 1 Occurrences starting 02/15/2022 until 03/17/2022 [employer] Work Phone: Comment on above: 1 Occurrences starting 02/15/2022 until 03/17/2022 Surgical pathology procedure [employer] Work Phone: Comment on above: Release Upon Ordering for 1 Occurrences starting 02/25/2022, 1 completed Tissue transglutamin ase IgA Ab [Units/volume] in Serum [facility] Tissue transglutamin ase IgG Ab [Units/volume] in Serum [facility] UVULOPALATOPHARYNGOPLASTY UVULOP ALATOPHARYNGOPLASTY Routine scheduled DIONNE (obstructive sleep apnea) [facility] Immunizations Immunization Date Immunization Notes Care Provider Fa cili 07-08-2021 Pfizer-BioNTech COVID-19 Vacc 30 MCG/0.3ML Intramuscular Suspension Gena Jang Kofi Work Phone: [facility] 06-17-2021 Pfizer-BioNTech COVID-19 Vacc 30 MCG/0.3ML Intramuscular Suspension Gena Jang Kofi Work Phone: [facility] 250 DO Work Phone: 06-27-2013 influenza virus vaccine, whole virus Gena Jang Kofi Work Phone: [facility] 250 DO Work Phone: Payers Date Payer Category Payer Unknown [id number] 2023 Self-pay [id number] 2023 Unknown [id number] 2021 Unknown 1975 Unknown [id number] .16.84 0.1.080632.3.579.2.593 1975 Unknown [id number] 2.16.84 0.1.560101.3.579.2.593 1975 Unknown [id number] 2.16.84 0.1.555711.3.579.2.593 1975 Unknown [id number] 2.16.84 0.1.317748.3.579.2.593 1975 Unknown [id number] 2.16.84 0.1.409976.3.579.2.593 1975 Unknown [id number] 2.16.84 0.1.244653.3.579.2.593 1975 Unknown [id number] 2.16.84 0.1.986284.3.579.2.593 1975 Unknown [id number] 2.16.84 0.1.625367.3.579.2.593 1975 Unknown [id number] 2.16.84 0.1.431971.3.579.2.593 1975 Unknown [id number] 2.16.84 0.1.770489.3.579.2.593 1975 Unknown [id number] 2.16.84 0.1.482577.3.579.2.593 1975 Unknown [id number] 2.16.84 0.1.870246.3.579.2.593 1975 Unknown [id number] 2.16.84 0.1.781547.3.579.2.593 1975 Unknown [id number] .16.84 0.1.379451.3.579.2.593 1975 Unknown [id number] .. 840.1.706332.3.579.2.73 1975 Unknown [id number] . 840.1.258570.3.579.2.73 1975 Unknown [id number] .. 840.1.827137.3.579.2.732 1975 Unknown [id number] . 840.1.225639.3.579.2.732 1975 Unknown [id number] .. 840.1.470507.3.579.2.732 1975 Unknown [id number] .16. 840.1.907350.3.579.2.73 1975 Unknown [id number] 2.16. 840.1.686723.3.579.2.732 1975 Unknown [id number] 2.16. 840.1.255956.3.579.2.732 1975 Unknown [id number] 2.16. 840.1.116713.3.579.2.732 1975 Unknown [id number] 2.16. 840.1.524018.3.579.2.732 1975 Unknown [id number] 2.16. 840.1.293727.3.579.2.732 1975 Unknown [id number] 2.16. 840.1.105038.3.579.2.732 1975 Unknown [id number] 2.16. 840.1.361160.3.579.2.732 1975 Unknown [id number] 2.16. 840.1.309214.3.579.2.732 1975 Unknown [id number] 2.16.8 40.1.385451.3.579.2.173 1975 Unknown [id number] 2.16.8 40.1.070935.3.579.2.173 1975 Unknown [id number] 2.16.8 40.1.799982.3.579.2.173 1975 Unknown [id number] 2.16.8 40.1.581244.3.579.2.173 1975 Unknown [id number] 2.16.8 40.1.223521.3.579.2.173 1975 Unknown [id number] 2.16.8 40.1.558305.3.579.2.598 1975 Unknown [id number] 2.16.8 40.1.644694.3.579.2.1286 1975 Unknown [id number] 2.16.8 40.1.898964.3.579.2.6 1975 Unknown [id number] 2.16.8 40.1.203085.3.579.2.1286 1975 Unknown [id number] 2.16.8 40.1.849499.3.579.2.1286 1975 Unknown [id number] 2.16.84 0.1.318332.3.579.2.1286 1975 Unknown [id number] 2.16.84 0.1.008317.3.579.2.1259 1975 Unknown [id number] 2.16.84 0.1.927235.3.579.2.9 1975 Unknown [id number] 2.16.84 0.1.376398.3.579.2.1259 1975 Unknown [id number] 2.16.84 0.1.529798.3.579.2.9 1975 Unknown [id number] 2.16.84 0.1.484630.3.579.2.1259 1975 Unknown [id number] 2.16.840 .1.165184.3.579.2.1259 1959 Unknown [id number] 1.2.840.802878.1.13.239.2.7.3.387744.31 5 1959 Unknown [id number] 1959 Unknown [id number] Medicaid [employer] [id number] Unknown [id number] .16.8 40.1.138157.3.579.2.531 Unknown [id number] .16.8 40.1.538069.3.579.2.531 Unknown [id number] .16.8 40.1.072756.3.579.2.531 Unknown [id number] .16.8 [id number] Unknown [id number] .16.8 [id number] Unknown [id number] .16.8 [id number] Unknown [id number] Social History Date Type Detail Facility Start: 02-16-2022 End: 06-18-2022 Occasional alcohol use Occasional alcohol use -[facility] 250 DO Work Phone: Comment on above: 2 bottles of pop alonso ly.; Quit 2020; Start: 11-30-2021 End: 08-08-2023 Tobacco smoking status NHIS Ex-smoker [employer] Work Phone: End: 01-20-2021 History of tobacco use Cigarette Smoker [employer] Phone: Start: 11-30-2021 End: 06-18-2022 Tobacco use and exposure Smokeless tobacco non-user [employer] Phone: Start: 12-22-2021 End: 12-13-2022 Alcohol intake Lifetime non-drinker (finding) [employer] Phone: Start: 11-30-2021 Tobacco Comment occasional smo ker for 2 years, she quit over a year now [employer] Phone: Start: 1975 Sex Assigned At Not on file [employer] Phone: Start: 01-05-2022 End: 12-13-2022 Tobacco Comment occasional smoker for 2 years, she quit in 2020 [employer] Phone: Start: 12-26-2021 End: 01-05-2022 Exposure to SARS-CoV-2 (event) Not sure [employer] Phone: [facility] At [facility] [employer] Other Start: 02-16-2022 End: 10-19-2022 Alcohol intake Ex-drinker (finding) [facility] End: 01-20-2021 History of tobacco use Current smoker [employer] Start: 1975 Sex Assigned At Female F [facility] Start: 10-18-2022 History SDOH Social Connections Phone 4 [facility] Start: 10-18-2022 History SDOH Social Connections Get Together 2 [facility] Start: 10-18-2022 History SDOH Social Connections Zoroastrianism 1 [facility] Start: 10-18-2022 History SDOH Social Connections Living 7 [facility] Start: 10-18-2022 History SDOH Physica l Activity DPW 0 [facility] Start: 10-17-2022 Education 12 [facility] Procedure Code Equipment Code Equipment Origin al Text Equipment Identifier Dates Stent Uret 6 Frx 24 Cm Firm Monofilament Tria - [id number] Start: 01-05-2022 Plate Bone 4mml [id number] - [id number] Start: 07-14-2022 Screw 2.0 X 10mm Self-Tapping Pc1 50 - [id number] Start: 07-14-2022 Pin Cross 2.0 X 5mm Pc1 50 - [id number] Start: 07-14-2022 Beata 8mm Screw [id number] Start: 07-14-2022 Goals Date Patient Goal Desired Activity /State Functional Status Date Assessment Result Facility 10-14-2021 PHQ-9 [id number] Moder ately Severe (15-19) [facility] 250 DO Work Phone: Clinical Notes 11-09-2021 to 03-13-2024 Note Date & Type Note Facility 03-13-2024 Evaluation note Authored March 13, 2024 4:17pm Patient's symptoms have impr rizwana with recommendation of dicyclomine and dietary changes. Patient has yet to complete bowel cleanout due to large stool burden noted on KUB this is also recommended. Patient negative for other GI symptoms at this time [facility] Work Phone: 1(137) 324-384001-30-2024 Evaluation note* Encounter Date Diagnosis Assessment Notes Treatment Notes Treatment Clinical Notes Aug, Obstructive sleep apnea (adult) (pediatric) [...] improve even to the point of resolution, [employer] Other [id number] [facility]* Encounter Date Diagnosis Assessment [...] COLONOSCOPY. Jun, Fecal urgency (ICD-10 - R15.2) [employer] Other 10-17-2023 Evaluation note* Encounter Date Diagnosis [...] (suspected) exposure to covid-19 (ICD-10 - Z20.822) [employer] Other 06-07-2023 Telephone encounter Note* Telephone Encounter - Rikki Rodrigues DMD, MD - 01/26/2023 10:18 AM EDT Called and left voicemail for patient. Post-op Home Sleep Test reviewed from [facility], and there is considerable improvement. Pre-op AHI is 102, now down to 31. Pre-op O2 Carlene of 71%, now up to 82%. However, still with considerable desat time. There are notes from Dr. Moreno evaluating for INSPIRE I presume, but nothing since November. Asked patient for call back or [employer] message with if she has been able to continue with Dr. Moreno at his new office, or if she needs referral to another [facility] ENT. -montrell [facility] Work Phone: 1([phone]) 966-626206-07-2023 Miscellaneous Notes* Telephone Encounter - Rikki Rodrigues DMD, MD - 01/26/2023 10:18 AM EDT Called and left voicemail for patient. Post-op Home Sleep Test reviewed from [facility], and there is considerable improvement. Pre-op AHI is 102, now down to 31. Pre-op O2 Carlene of 71%, now up to 82%. However, still with considerable desat time. There are notes from Dr. Moreno evaluating for INSPIRE I presume, but nothing since November. Asked patient for call back or [employer] message with if she has been able to continue with Dr. Moreno at his new office, or if she needs [facility] -montrell documented in this [id number] NoteOPERATIVE NOTE OPERATION DATE: 11/12/2022 PROCEDURE: Robotic assisted laparoscopic salpingectomy. PREOPERATIVE DIAGNOSIS: Multiparity, desires permanent sterilization. POSTOPERATIVE DIAGNOSIS: Multiparity, desires permanent sterilization. ANESTHESIA: General. SURGEON: Oswald Harrington D.O. AIRPLANE DISPATCHER: VIRAJ Salazar URINE OUTPUT: Yellow and clear. [...] lap and needle counts were correct x2.[id number] Telephone encounter Note* Telephone Encounter - Tatiana Morris - 11/04/2022 3:51 PM EDT Opened in error [id number] Miscellaneous Notes* Telephone Encounter - Tatiana Morris - 11/04/2022 3:51 PM EDT Opened in error documented in this [id number] Telephone encounter Note* Telephone Encounter - Rikki Rodrigues DMD, MD - 11/01/2022 2:32 PM EDT Called patient and left voicemail. Advised that order for post-op PSG was faxed to [facility] [place]. Left number to call to schedule study at her convenience ([phone]) [facility] Work Phone: 1(847) 494-600803-13-2023 Miscellaneous Notes* Telephone Encounter - Rikki Rodrigues DMD, MD - 11/01/2022 2:32 PM EDT Called patient and left voicemail. Advised that order for post-op PSG was faxed to [facility] [place]. Left number to call to schedule study at her convenience ([phone]) documented in this [id number] History general Narrative - Reported* Type Description [...] counseling for depression, anxiety Hospitalization History dehydration [employer] Other 01-18-2023 History of Present illness Narrative* [...] -Complete sleep study with Dr. Mcmanus in [place], [place] in 1.5 months -Follow up with patient's general dentist, Sinan Jones DDS for denture adjustment Follow-Up: After new sleep study Follow up sooner with new or worsening symptoms. Sinan Jones DDS [facility] [place] [address] Wiley Mcmanus MD [facility] [address] [place] [address] Seferino Vaz DMD [facility] Resident documented in this [id number] Instructions* Patient Instructions* Wilfredo Vang DMD - 08/30/2022 12:07 PM EST With clean hands massage gums under your upper lip daily at night time No food restrictions Follow up with your dentist We will contact your Sleep Center in [place] to have a Sleep Study completed in 1.5 months. documented in this [id number] Instructions* Patient Instructions* Wilfredo Vang DMD - 08/30/2022 12:07 PM EST With clean hands massage gums under your upper lip daily at night time No food restrictions Follow up with your dentist We will contact your Sleep Center in [place] to have a Sleep Study completed in 1.5 months. documented in this [id number] History of Present illness Narrative* Seferino Vaz [...] -Complete sleep study with Dr. Mcmanus in [place], [place] in 1.5 months -Follow up with patient's general dentist, Sinan Jones DDS for denture adjustment Follow-Up: PRN Follow up sooner with new or worsening symptoms. Sinan Jones DDS [place] [address] [place] [address] Wiley Mcmanus MD [facility] [address] [place] [address] Seferino Vaz DMD [facility] Resident documented in this [id number] Telephone encounter Note* Telephone Encounter - Jerel [...] at this number. Jerel Villegas DDS, MD [facility]- PGY4 [phone] [employer] Work Phone: 1([phone]) 481-882412-21-2022 Miscellaneous Notes* Telephone Encounter - Jerel Villegas [...] at this number. Jerel Villegas DDS, MD [facility]- PGY4 [phone] documented in this [id number] Telephone encounter Note* Telephone Encounter - Oliver Rogers DMD - 08/02/2022 4:26 PM EST Called pt. No answer. LVM with callback instructions. Per Dr. Rodrigues, we will not write any work excuse notes or prescribe any pain meds until pt is seenin person for follow up. Oliver Rogers DMD [facility] Work Phone: 1([phone]) [phone] Miscellaneous Notes* Telephone Encounter - Oliver Rogers [...] options if that is the case. Email: [email or web address] Contact pt @[phone] for questions/concerns documented in this [id number] Telephone encounter Note* Telephone Encounter - Zayda [...] options if that is the case. Email: [email or web address] Contact pt @[phone] for questions/concerns [id number] Telephone encounter Note* Telephone Encounter - Mikal [...] Oral & Maxillofacial Surgery, PGY-3 Team Pager: [phone] [facility] Work Phone: 1(174) 369-620112-07-2022 Miscellaneous Notes* Telephone Encounter - Mikal Rodgers [...] Oral & Maxillofacial Surgery, PGY-3 Team Pager: [phone] documented in this [id number] History of Present illness Narrative* Mikal Rodgers [...] Oral & Maxillofacial Surgery, PGY-3 Team Pager: [phone] documented in this [id number] History of Present illness Narrative* Saleem Mi DMD - 07/19/2022 8:28 AM EST Images from the original note were not included. Initial pre-surgical workup photos: documented in this [id number] Note* Care Plan Note - Penny Brown RN - 07/17/2022 12:33 PM EST Problem: Discharge Planning: Goal: Discharge needs of the adult patient will be met 07/17/2022 1233 by Penny Brown RN Outcome: Completed 07/17/2022 07 by Penny Brown RN Outcome: Progressing Discharge instructions provided to patient with paper scripts and tylenol MEDS to beds. No questions about instructions or medications at this time. IV removed and intact upon removal. Additional home care supplies provided. Patient discharged home with family member. [id number] Miscellaneous Notes* Care Plan Note - Penyn Brown RN - 07/17/2022 12:33 PM EST Problem: Discharge Planning: Goal: Discharge needs of the adult patient will be met 07/17/2022 1233 by Penny Brown RN Outcome: Completed 07/17/2022 07 by Penny Brown RN Outcome: Progressing Discharge [...] year old female Surgical Contact Serial Number: [id number] Preoperative Diagnosis: DIONNE (obstructive sleep apnea) [G47.33] Postoperative Diagnosis: * DIONNE (obstructive sleep apnea) [G47.33] Procedures: Surgical CPTs Procedures RECONSTRUCTION MIDFACE, LEFORT I; 1 PIECE, W/O BONE GRAFT RECONSTRUCTION, MANDIBULAR RAMI &/OR BODY, SAGITTAL SPLIT; W/INT RIGID FIXATION No data filed Surgeon(s): Surgeon(s): Rikki Rodrigues DMD, MD Staff: Scrub: Annelise Saeed RN; Babs Wells RN Multicultural Manager Nurse: Stephanie Brannon RN; Babs Wells RN Car Supplier: Margot Ovalles DDS; Saleem Mi DMD Anesthesia: General Anesthesiologist: Ki Atwood MD CAA: Edwina Warren CAA; Delia Morris CAA; Zeina Centeno CAA Specimen(s): * No specimens in [...] were discussed with the patient and/or legal physician relations representative. The risks, benefits and alternatives were reviewed. Questions regarding blood transfusions were answered. The patient /or the patient s legal physician relations representative agree with the plan for transfusion of blood and/or blood components. * Anesthesia Attestation - Ki Atwood MD - 07/14/2022 7:06 AM EST Anesthesia Attestation ATTESTATION OF INFORMED CONSENT FOR ANESTHESIA Anesthesia options were discussed with the patient and/or legal physician relations representative. The risks, benefits and alternatives were reviewed. Questions regarding anesthesia were answered. Patient and/or legal physician relations representative knows such anesthetics and procedures may be performed by Resident physicians, Certified Anesthesiologist Assistants, or Certified Nurse Anesthetists under the supervision of a physician. The patient /or the patient s legal representativeagree with the plan for anesthesia. documented in this [id number] NoteDISCHARGE SUMMARY [address] Isabelle Hewitt Date of : 1975 47 [...] 07/23/2022 2:30 PM Rikki Rodrigues DMD, MD [facility] 10/19/2022 8:45 AM Yi Moreno MD [facility] ENT [facility] Click the Form Tab Reason for Hospitalization [...] of concern and please page the resident bus transportation manager Do not blow your nose for 2 [...] can. Rinse your (more content not included)...[facility] [id number] Note [facility] PROGRESS NOTE Isabelle Hewitt is a [...] oxymetazoline (AFRIN) 0.05 % nasal solution 2 [place] Nasal Q4H PRN sodium chloride (OCEAN) 0.65 % nasal spray 1 [place] Nasal Q1H PRN naloxone (NARCAN) 0.4 MG/ML [...] to be discharged to follow up with [facility] clinic.The [facility] [id number] Hospital Discharge instructions* Discharge Instructions* Oliver Rogers, CHAU - 07/17/2022 9:34 AM EST TRANSIT PLANNING MANAGER DISCHARGE INSTRUCTIONS MEDICATIONS Pain medication should be [...] of concern and please page the resident bus transportation manager Do not blow your nose for 2 [...] weeks until the bones heal QUESTIONS/CONCERNS Call perl developer Office [phone] documented in this [id number] History of Present illness Narrative* Wilfredo Vang, CHAU - 07/17/2022 8:58 AM EST Images from the original note were not included. [facility] PROGRESS NOTE Isabelle Hewitt is a [...] Gap Glu BUN Cr Ca Mg PO4 07/17/22 0222 1.8 07/17/22221 144 3.7 105 30 13 [...] 75 mg Oral Daily 75 mg at 07/16/22810 chlorhexidine (PERIDEX) 0.12 % oral solution 15 mL Swish & Spit 2x Daily 15 mL at 07/16/222042 famotidine (PEPCID) tablet 20 mg Oral 2x Daily 20 mg at 07/16/222043 ibuprofen (MOTRIN) tablet 600 mg Oral Q6H PRN ondansetron (ZOFRAN) 4 MG/2ML injection 4 mg Intravenous Push Q6H PRN docusate sodium (COLACE) capsule 100 mg Oral 2x Daily 100 mg at 07/16/22810 bisacodyl (DULCOLAX) 5 MG enteric coated tablet 10 mg Oral Daily PRN oxymetazoline (AFRIN) 0.05 % nasal solution 2 [place] Nasal Q4H PRN sodium chloride (OCEAN) 0.65 % nasal spray 1 [place] Nasal Q1H PRN naloxone (NARCAN) 0.4 MG/ML injection 0.4 mg Intravenous Push PRN Assessment: Isabelle Hewitt is a 47 year old yo female who is HOD 3 for [facility] for sleep apnea. She is taking adequate PO, sating appropriately at room air w/o any concerns of airway embarrassment, voiding spontaneously, normotensive. Pain is also controlled. Given these findings, patient is ok to be discharged to follow up with [facility] clinic. * Lola Wyatt RN - [...] history of hypothyroidism, HTN, HLD, bipolar disorder, DOINNE(recent pharyngoplasty 03/12) admitted following maxillo- mandibular advancement [...] 3,000 mg, Intravenous, Q6H Antibiotic, [place]ot Viveros DDS, Last Rate: 200 mL/hr at 07/16/22 [...] MG tablet, 5 mg, Oral, 3x Daily, Sue, Oliver, DMD, 5 mg at 07/16/22 0655 venlafaxine [...] oxymetazoline (AFRIN) 0.05 % nasal solution, 2 [place], Nasal, Q4H PRN, Oliver Rogers, DMD sodium chloride (OCEAN) 0.65 % nasal spray, 1 [place], Nasal, Q1H PRN, Oliver Rogers, DMD naloxone [...] 14 96 16 0.79 8.0 07/16/22400 2.1 07/15/224 141 4.3 102 28 15 147 [...] oxymetazoline (AFRIN) 0.05 % nasal solution, 2 [place], Nasal, Q4H PRN, Oliver Rogers DMD sodium chloride (OCEAN) 0.65 % nasal spray, 1 [place], Nasal, Q1H PRN, Oliver Rogers DMD enoxaparin (LOVENOX) 40 MG/0.4ML injection 40 mg, 40 mg, Subcutaneous, Daily, Sue CHAU Boyd, 40 mg at 07/14/22 1658 naloxone (NARCAN) 0.4 MG/ML injection, 0.4 mg, Intravenous Push, PRN, Ki Atwood MD lactated ringers iv infusion, , Intravenous, Continuous, Hiwot CHAU Monge, Last Rate: 75 mL/hr at109/14/21 0700, Rate [...] improving. Follow Up: - OMFS (Dr Rodrigues) Cliffodr Cruz MD PGY-5 Radiology Attending Attestation I [...] discussed. Zehra Stearns MD documented in this [id number] Note* Care Plan Note - Penny Brown [...] adult patient will be met Outcome: Progressing [id number] Note* Care Plan Note - Lauren Crawford [...] adult patient will be met Outcome: Progressing [id number] Note* Care Plan Note - Alon Cotton [...] monitoring. Patient free of falls/injuries during shift. [id number] History and physical note* Zehra Stearns MD - 07/14/2022 3:58 PM EST Images from the original note were not included. Surgical ICU H&P Isabelle Hewitt [id number] HPI: Ms Hewitt is a 47 year [...] Clifford Cruz MD PGY-5 Radiology SICU Pager [phone] [facility] Pager -[phone], Weekdays 6a-6p [place] Pager -[phone], Weekdays 6p-6a, weekends Attending Attestation I saw [...] stepdown for airway monitoring. Zehra Stearns MD [facility] HospitalFiuhyLwxgfg23-79-9385 History and physical note* Zehra Stearns MD - 07/14/2022 3:58 PM EST Images from the original note were not included. Surgical ICU H&P Isabelle Hewitt [id number] HPI: Ms Hewitt is a 47 year [...] Clifford Cruz MD PGY-5 Radiology SICU Pager [phone] [facility] Pager -[phone], Weekdays 6a-6p [place] Pager -[phone], Weekdays 6p-6a, weekends Attending Attestation I saw [...] Yes Saleem Mi DDS documented in this [id number] NoteSurgical Attestation: I have reviewed the patient's History and Physical Examination. I have personally seen and evaluated the patient, repeating ulloa portions. There is no significant interval change. Surgery is still indicated. Yes Consent reviewed and signed by patient/family: Yes Operative site verified: Yes [facility]Bu[facility] Hospital[facility]BL [id number] Note* Brief Operative Note - Rikki Rodrigues DMD, MD - 07/14/2022 8:30 AM EST Brief Operative Note MAIN OR 12 Isabelle Hewitt 47 year old female Surgical Contact Serial Number: [id number] Preoperative Diagnosis: DIONNE (obstructive sleep apnea) [G47.33] Postoperative Diagnosis: * DIONNE (obstructive sleep apnea) [G47.33] Procedures: Surgical CPTs Procedures RECONSTRUCTION MIDFACE, LEFORT I; 1 PIECE, W/O BONE GRAFT RECONSTRUCTION, MANDIBULAR RAMI &/OR BODY, SAGITTAL SPLIT; W/INT RIGID FIXATION No data filed Surgeon(s): Surgeon(s): Rikki Rodrigues DMD, MD Staff: Scrub: Annelise Saeed RN; Babs Wells RN Multicultural Manager Nurse: Stephanie Brannon RN; Babs Wells RN Car Supplier: Margot Ovalles DDS; Saleem Mi DMD Anesthesia: [...] Rikki Rodrigues DMD, MD 07/14/2022 12:58 PM [employer] Work Phone: 1(785) 440-497711-23-2022 History and physical note* Saleem Mi DMD - 07/14/2022 7:13 AM EST Surgical Attestation: I have reviewed the patient's History and Physical Examination. I have personally seen and evaluated the patient, repeating ulloa portions. There is no significant interval change. Surgery is still indicated. Yes Consent reviewed and signed by patient/family: Yes Operative site verified: Yes Saleem Mi DDS [employer] Work Phone: 1([phone]) 492-711311-23-2022 Note* Blood Attestation - Ki Atwood MD - 07/14/2022 7:06 AM EST Blood Attestation ATTESTATION OF INFORMED CONSENT FOR BLOOD The transfusion of blood and/or blood components were discussed with the patient and/or legal physician relations representative. The risks, benefits and alternatives were reviewed. Questions regarding blood transfusions were answered. The patient /or the patient s legal physician relations representative agree with the plan for transfusion of blood and/or blood components. [facility] Work Phone: 1(390) 184-917611-23-2022 Note* Anesthesia Attestation - Ki Atwood MD - 07/14/2022 7:06 AM EST Anesthesia Attestation ATTESTATION OF INFORMED CONSENT FOR ANESTHESIA Anesthesia options were discussed with the patient and/or legal physician relations representative. The risks, benefits and alternatives were reviewed. Questions regarding anesthesia were answered. Patient and/or legal physician relations representative knows such anesthetics and procedures may be performed by Resident physicians, Certified Anesthesiologist Assistants, or Certified Nurse Anesthetists under the supervision of a physician. The patient /or the patient s legal representativeagree with the plan for anesthesia. [id number] Telephone encounter Note* Telephone Encounter - Latoya Manzo RN - 07/09/2022 3:43 PM EST 1541: Contacted pt and informed her to call the ENT office to schedule appt with Dr Moreno s/p jaw surgery in about 3 months due to healing time. Pt verbalized understanding. Latoya Manzo RN [id number] Miscellaneous Notes* Telephone Encounter - Latoya Manzo [...] step is for after the surgery. PT: [phone] Gus Luz documented in this [id number] Telephone encounter Note* Telephone Encounter - Nicole Diaz - 07/09/2022 2:[address] Joel, Patient calling stating that she is going forward with the jaw surgery that you recommended next 07/14/22. Patient would like to know what the next step is for after the surgery. PT: [phone] Gus Luz [facility] Work Phone: 1(167) 103-694911-17-2022 Instructions* Patient Instructions* Gena Holbrook APRN-CNP - [...] for pain Please hold all Vitamin E, [place] 3, fish oil and herbal supplements for 1 week prior to surgery documented in this [id number] Note* PSE Appt H&P - Edwina Daniel - 07/08/2022 1:59 PM EST Patient was identified by name and date of . Edwina [place] Bill of rights provided to patient [id number] Miscellaneous Notes* PSE Appt H&P - Edwina Daniel - 07/08/2022 1:59 PM EST Patient was identified by name and date of . Edwina Daniel Bill of rights provided to patient * PSE Appt H&P - Gena Holbrook APRN-COOK MESS - 07/07/2022 4:03 PM EST Presurgical Evaluation Isabelle Hewitt, [id number] 47 year old Female 07/08/2022 BP 122/80 [...] Yes Does not use CPAP PS12/17/2021 at [facility] RESPIRATORY DATA INTEGRITY: Respiratory data integrity [...] Arredondo 4:25 PM 07/08/2022 documented in this [id number] NotePresurgical Evaluation Isabelle Hewitt, [id number] 47 year old Female 07/08/2022 BP 122/80 [...] six months. No STOP-BANG Row Name 07/07/22 1604 History of sleep apnea? Yes Does not [...] grossly intact Psychia (more content not included)...The [facility] [id number] Note* PSE Appt H&P - Gena Holbrook, KATHRIN-COOK MESS - 07/07/2022 4:03 PM EST Presurgical Evaluation Isabelle Hewitt, [id number] 47 year old Female 07/08/2022 BP 122/80 [...] Yes Does not use CPAP PS12/17/2021 at [facility] RESPIRATORY DATA INTEGRITY: Respiratory data integrity [...] Interviewer signature: ARTURO Arredondo 4:25 PM 07/08/2022 [facility] [id number] NotePatient is vaccinated for COVID-19. Vaccinations are documented in Epic. Patient does not require pre-op COVID testing per current guidelines.The [facility] [id number] Telephone encounter Note* Telephone Encounter - Mary Dennis RN - 07/05/2022 8:53 PM EST Patient is vaccinated for COVID-19. Vaccinations are documented in Epic. Patient does not require pre-op COVID testing per current guidelines. [id number] Miscellaneous Notes* Telephone Encounter - Mary Dennis RN - 07/05/2022 8:53 PM EST Patient is vaccinated for COVID-19. Vaccinations are documented in Epic. Patient does not require pre-op COVID testing per current guidelines. documented in this [id number] Note* PSE Appt H&P - Pierce Ramos APRN-CNP - 07/05/2022 12:06 PM EST Error [facility] Work Phone: 1(725) 157-693411-14-2022 Miscellaneous Notes* PSE Appt H&P - Pierce Ramos APRN-CNP - 07/05/2022 12:06 PM EST Error documented in this [id number] History of Present illness Narrative* Seferino Vaz DMD - 07/02/2022 11:00 AM EST ORAL SURGERY CLINIC FOLLOW UP VISIT Patient was seen in the [facility] for alginate impressions of the edentulous maxilla and CBCT with denture in place. Seferino Vaz DMD FS Resident ms. documented in this [id number] History of Present illness Narrative* Rikki Rodrigues DMD, MD - 06/18/2022 4:17 PM EDT Images from the original note were not included. OMFS PATIENT VISIT CHIEF COMPLAINT: sleep apnea HISTORY OF PRESENT ILLNESS: Patient presents for evaluation for surgical treatment of DIONNE. She is extremely symptomatic from her DIONNE, and suffers from CPAP intolerance. Avon sleepiness scale is 18. Patient is starting [...] norms. Retrognathic mandible. DIAGNOSIS: Obstructive sleep apnea [066891] TREATMENT: Exam, Panorex evaluated, and pictures/models taken [...] Rikki Rodrigues DMD, MD documented in this [id number] History of Present illness Narrative* Leonard Ovallesbrooks, LEE - 06/18/2022 4:17 PM EDT Images from the original note were not included. OMFS PATIENT VISIT CHIEF COMPLAINT: sleep apnea HISTORY OF PRESENT ILLNESS: Patient presents for evaluation for surgical treatment of DIONNE. She is extremely symptomatic from her DIONNE, and suffers from CPAP intolerance. [place] sleepiness scale is 18. Patient is starting [...] norms. Retrognathic mandible. DIAGNOSIS: Obstructive sleep apnea [121446] TREATMENT: Exam, Panorex evaluated, and pictures/models taken [...] Rikki Rodrigues DMD, MD documented in this [id number] Instructions* Patient Instructions* Rikki Rodrigues DMD, MD [...] fatigue and inconsistent sleep. documented in this [id number] NoteSurgical Attestation: I have reviewed the patient's History and Physical Examination. I have personally seen and evaluated the patient, repeating ulloa portions. There is no significant interval change. Surgery is still indicated. Yes Consent reviewed and signed by patient/family: Yes Operative site verified and marked: site verified but not marked as not anatomically possible Ryann Brown PA-C 06/03/2022 11:55 AMThe [employer]10-10-2022 Evaluation note* Encounter Date Diagnosis Assessment Notes Treatment Notes Treatment Clinical Notes May, Encounter for screening for other viral diseases (ICD-10 - Z11.59) [facility] Other 10-07-2022 Note* PSE Call H&P - Rose Brown RN - 05/28/2022 9:42 AM EDT Images from the original note were not included. Telephone History Isabelle Hewitt, [id number] 05/28/2022 47 year old 190 lbs 5' [...] prior sleep endoscopy STOP-BANG Row Name 05/28/22 0998 History of sleep apnea? Yes dionne-intolerant of [...] pain. Do not take any Vitamin E, [place] 3, fish oils, herbal medications 7 days [...] Spent Performing this Telephone History: 30 minutes MbosyRbmxwz92-28-1778 Miscellaneous Notes* PSE Call H&P - Rose Brown RN - 05/28/2022 9:42 AM EDT Images from the original note were not included. Telephone History Isabelle Hewitt, [id number] 05/28/2022 47 year old 190 lbs 5' [...] pain. Do not take any Vitamin E, [place] 3, fish oils, herbal medications 7 days [...] Telephone History: 30 minutes documented in this [id number] Telephone encounter Note* Telephone Encounter - Mary Dennis RN - 05/28/2022 8:15 AM EDT Patient is scheduled for DISE on 06/03/2022. Prefers to complete pre-op COVID testing closer to home. Instructed to obtain testing 48-72 hours prior to surgery and bring copy of results on day of surgery. PSE contact information provided. [id number] Miscellaneous Notes* Telephone Encounter - Mary Dennis RN - 05/28/2022 8:15 AM EDT Patient is scheduled for DISE on 06/03/2022. Prefers to complete pre-op COVID testing closer to home. Instructed to obtain testing 48-72 hours prior to surgery and bring copy of results on day of surgery. PSE contact information provided. documented in this [id number] Telephone encounter Note* Telephone Encounter - Mary Dennis RN - 05/26/2022 9:16 PM EDT Arrangements to be made for pre-op COVID testing per ENT request. [id number] Miscellaneous Notes* Telephone Encounter - Mary Dennis RN - 05/26/2022 9:16 PM EDT Arrangements to be made for pre-op COVID testing per ENT request. documented in this [id number] Note* Addendum Note - Yi Moreno MD - 05/26/2022 5:25 PM EDTAddended by: YI MORENO on: 05/26/2022 05:25 PM Modules accepted: Orders [id number] Miscellaneous Notes* Addendum Note - Yi Moreno MD - 05/26/2022 5:25 PM EDTAddended by: YI MORENO on: 05/26/2022 05:25 PM Modules accepted: Orders documented in this [id number] History of Present illness Narrative* Yi Moreno MD - 03/29/2022 2:41 PM EDT Images from the original note were not included. .Documentation: Mode: Telephone Patient Home Phone: Patient Patient Cell Preferred phone: [phone] Consent: I confirmed patient understanding of the [...] on prior sleep endoscopy documented in this [id number] History of Present illness Narrative* Yi Moreno MD - 03/29/2022 2:41 PM EDT Images from the original note were not included. .Documentation: Mode: Telephone Patient Home Phone: Patient Patient Cell Preferred phone: [phone] Consent: I confirmed patient understanding of the [...] on prior sleep endoscopy documented in this [id number] Telephone encounter Note* Telephone Encounter - Tatiana [...] to turn it in is 03/19/22. PH#: [phone] UtnnhEhzowa06-82-4005 Miscellaneous Notes* Telephone Encounter - Tatiana Morris [...] to turn it in is 03/19/22. PH#: [phone] documented in this [id number] Note* Care Plan Note - Iglesia Amin [...] will be met Outcome: Adequate for Discharge [id number] Miscellaneous Notes* Care Plan Note - Iglesia [...] year old female Surgical Contact Serial Number: [id number] Preoperative Diagnosis: DIONNE (obstructive sleep apnea) [G47.33] Postoperative Diagnosis: * DIONNE (obstructive sleep apnea) [G47.33] Procedures: Surgical CPTs Procedures PALATOPHARYNGOPLASTY No data filed Surgeon(s): Surgeon(s): Yi Moreno MD Staff: Scrub: Wiley Álvarez Nurse: Mariaa Briseno; Dulce Allred; Babs Wells RN Car Supplier: Yi Piña MD; Unruly Biggs MD Anesthesia: Consult Anesthesiologist: Maite Youssef MD CAA: Mariaa Meneses CAA POSTBED STITCHER: Cari Hurtado APRN-KOBI Representative: Carol Barrera MD Anesthesia Student: Prema Norris [...] Moreno MD - 02/25/2022 10:00 AM EDT [id number] Isabelle Vallejodoreenramon 1975 @PATFNAME@ @PATIENTLASTNAME@ [id number] Preoperative diagnosis: 1. Obstructive sleep apnea 2. [...] were discussed with the patient and/or legal physician relations representative. The risks, benefits and alternatives were reviewed. Questions regarding anesthesia were answered. Patient and/or legal physician relations representative knows such anesthetics and procedures may [...] were discussed with the patient and/or legal physician relations representative. The risks, benefits and alternatives were reviewed. Questions regarding blood transfusions were answered. The patient /or the patient s legal physician relations representative agree with the plan for transfusion of blood and/or blood components. documented in this [id number] NoteOTOLARYNGOLOGY HEAD AND NECK SURGERY DAILY PROGRESS [...] and perioperative course uncomplicated. Patient transferred to [facility] from PACU. Mild anxiety overnight. No desaturations and pain overall well controlled. Patient on 2L NC when seen in the AM - Wean nc as tolerated - Monitor PO - Restart home meds - Discharge home today as appropriate [id number]* Care Plan Note - [...] the patient will be met Outcome: Progressing LeptwGrpybb89-92-1715 NoteDISCHARGE SUMMARY [address] [address] Isabelle Hewitt Date of : 1975 46 [...] Your Medications These medications were sent to [facility] - [place], [place] - [address] [place] [address] acetaminophen 650 MG CR tablet methylPREDNISolone 4 [...] documented in the resident's note. Wiley Lancaster MDAshtabula [facility]07-07-2022 Hospital Discharge instructions* Discharge Instructions* [...] shared with your regular doctor. Isabelle Hewitt [employer] [facility] [address] Phone numbers Date of Procedure: 02/25/22 Physicians: Dr. Yi Moreno (ENT) Admission Date: 02/25/2022 7:49 AM Discharge Date: No discharge date for patient encounter. Disposition: Home Home Care Agency: none Procedure that was performed: Uvulopalatopharyngoplasty (UPPP) Pending results: No pathology specimen was sent Call [phone] during regular daytime business hours (8:00 am - 5:00 pm) and after 5:00 pm call [phone] and ask to speak with the ENT Resident Tailor'S Aide with any questions or concerns. If it is a life-threatening situation, proceed to the nearest emergency department. Your Follow-up Appointment(s) Future Appointments Date Time Provider Department Center 03/29/2022 3:15 PM Yi Moreno MD [facility] Location: [facility] ([facility] [address] [place] [address] ([phone]) Thank you for the opportunity to care [...] a stool softener, they may be purchased mgtp-ffg-amoweli at any local drugstore. Signs of Infection Signs of infection can include fever, excessive swelling, heat, drainage, redness, or severe pain. If you see any of these occur, please contact your doctor's office at [phone]. Any fever higherthan 100.4, especially if associated [...] opioids can be used to help relieve wvpokzxf-cy-hhsuoe pain and are often prescribed following a [...] or Mental Health Mobile Crisis Help Line [phone] Narcotics Anonymous Center for Disease Control and Prevention www.cdc.gov 211 First Call For Help (14/03) 2-1-1 from phone OR Victor[facility] Falls Prevention Each year, 1 in every 3 adults over the age of 65 are treated for fall-related injuries. The risk of falling increases with each decade of life. The good news is, many falls are preventable. Here are some fall prevention tips: Exercise can increase strength and improve balance, making falls much less likely. For more informati on visit: http://[facility].org/services/ydpz-lmfieg-ld-your-health/a-matte s-if-zcwpjzx/ Some medications or combinations of medications can [...] Written by the doctors and editors at [facility] What are the benefits of exercise? -- [...] of movement, like short walks or doing die press operator, can help improve your health. What else [...] process is complete. This topic retrieved from [employer] on: Mar 19, 2020. Topic 49005 Version 20.0 Release: 28.4.6 - C28.294 2019 [employer]. and/or its affiliates. All rights reserved. Consumer [...] that is right for you.The use of [employer] content is governed by the [employer] Terms of Use. 2019 [employer]. All rights reserved. Copyright 2020 [employer]. and/or its affiliates. All rights reserved. Reviewed April 2020 documented in this [id number] Note* Care Plan Note - Ashvin Mims [...] the patient will be met Outcome: Progressing [id number] NoteAddendum created 02/25/22 1219 by Mariaa Meneses CAA Intraprocedure Staff editedThe [facility]07-07-2022 History of Present illness Narrative* [...] no areas of redness. documented in this [id number] NoteSurgical Attestation: I have reviewed the patient's History and Physical Examination. I have personally seen and evaluated the patient, repeating ulloa portions. There is no significant interval change. Surgery is still indicated. Yes Consent reviewed and signed by patient/family: Yes Operative site verified and marked: Yes Yi Moreno MD 02/25/2022 8:56 AMThe [facility]07-07-2022 Note* Brief Operative Note - Yi Moreno MD - 02/25/2022 10:00 AM EDT Brief Operative Note MAIN OR 11 Isabelle Hewitt 46 year old female Surgical Contact Serial Number: [id number] Preoperative Diagnosis: DIONNE (obstructive sleep apnea) [G47.33] Postoperative Diagnosis: * DIONNE (obstructive sleep apnea) [G47.33] Procedures: Surgical CPTs Procedures PALATOPHARYNGOPLASTY No data filed Surgeon(s): Surgeon(s): Yi Moreno MD Staff: Scrub: Wiley Álvarez Multicultural Manager Nurse: Mariaa Briseno; Dulce Allred; Babs Wells RN Car Supplier: Yi Piña MD; Unruly Biggs MD Anesthesia: Consult Anesthesiologist: Maite Youssef MD CAA: Mariaa Meneses CAA POSTBED STITCHER: Cari Hurtado APRN-POSTBED STITCHER Representative: Carol Barrera MD Anesthesia Student: Prema Norris [...] by Yi Moreno MD 02/25/2022 10:40 AM [id number] Note* OP Note - Yi Moreno MD - 02/25/2022 10:00 AM EDT [id number] Isabelle Kash 1975 @PATFNAME@ @PATIENTLASTNAME@ [id number] Preoperative diagnosis: 1. Obstructive sleep apnea 2. [...] taken back to recovery in stable condition. GqevgOunnbd97-12-5907 History and physical note* Yi Moreno MD [...] Yes Yi Moreno MD 02/25/2022 8:56 AM PbmvlEisdxq71-90-0960 History and physical note* Yi Moreno MD [...] MD 02/25/2022 8:56 AM documented in this [id number] Note* Anesthesia Attestation - Maite Youssef MD - 02/25/2022 8:52 AM EDT Anesthesia Attestation ATTESTATION OF INFORMED CONSENT FOR ANESTHESIA Anesthesia options were discussed with the patient and/or legal physician relations representative. The risks, benefits and alternatives were reviewed. Questions regarding anesthesia were answered. Patient and/or legal physician relations representative knows such anesthetics and procedures may be performed by Resident physicians, Certified Anesthesiologist Assistants, or Certified Nurse Anesthetists under the supervision of a physician. The patient /or the patient s legal representativeagree with the plan for anesthesia. [facility] Work Phone: 1(822) 582-841207-07-2022 Note* Blood Attestation - Maite Youssef MD - 02/25/2022 8:52 AM EDT Blood Attestation ATTESTATION OF INFORMED CONSENT FOR BLOOD The transfusion of blood and/or blood components were discussed with the patient and/or legal physician relations representative. The risks, benefits and alternatives were reviewed. Questions regarding blood transfusions were answered. The patient /or the patient s legal physician relations representative agree with the plan for transfusion of blood and/or blood components. UlhklVeunkk25-19-4814 Telephone encounter Note* Telephone Encounter - Mary Dennis RN - 02/24/2022 7:19 AM EDT PSE received pre-op COVID test results - NOT DETECTED on 02/23/2022. Document scanned into [employer]. [id number] Miscellaneous Notes* Telephone Encounter - Mary Dennis RN - 02/24/2022 7:19 AM EDT PSE received pre-op COVID test results - NOT DETECTED on 02/23/2022. Document scanned into [employer]. documented in this [id number] Telephone encounter Note* Telephone Encounter - Mary Dennis RN - 02/17/2022 2:52 PM EDT Patient is scheduled for surgery 02/25/2022. Prefers to complete pre-op COVID testing closer to home.Instructed to obtain testing 48-72 hours prior to surgery and bring copy of results on day of surgery. PSE contact information provided, order faxed to [facility] per patient request. [id number] Miscellaneous Notes* Telephone Encounter - Mary Dennis RN - 02/17/2022 2:52 PM EDT Patient is scheduled for surgery 02/25/2022. Prefers to complete pre-op COVID testing closer to home.Instructed to obtain testing 48-72 hours prior to surgery and bring copy of results on day of surgery. PSE contact information provided, order faxed to [facility] per patient request. documented in this [id number] Instructions* Patient Instructions* Pierce Ramos APRN-CNP - [...] for pain Please hold all Vitamin E, [place] 3, fish oil and herbal supplements for 1 week prior to surgery documented in this [id number] Note* PSE Appt H&P - Quinton Manzo - 02/16/2022 2:19 PM EDT Patient was identified by name and date of . Quinton Manzo Bill of rights provided to patient [id number] Miscellaneous Notes* PSE Appt H&P - Quinton Manzo - 02/16/2022 2:19 PM EDT Patient was identified by name and date of . Quinton Manzo Bill of rights provided to patient * PSE Appt H&P - Pierce Ramos, STRIPPER APPRENTICE-COOK MESS - 02/15/2022 2:46 PM EDT Presurgical Evaluation Isabelle Hewitt, [id number] 46 year old Female 02/17/2022 VITAL SIGNS: [...] Yes Does not use CPAP PS12/17/2021 at [facility] RESPIRATORY DATA INTEGRITY: Respiratory data integrity [...] (LIPITOR) 20 mg tablet EKG 12-LEAD TRACING [20401] PLAN: Documentation complete. Labs, Images, and Medications reviewed, and patient questions answered. Interviewer signature: ARTURO Rankin 8:00 AM 02/17/2022 documented in this [id number] NotePresurgical Evaluation Isabelle Hewitt, [id number] 46 year old Female 02/17/2022 VITAL SIGNS: [...] Yes Does not use CPAP PS12/17/2021 at [facility] RESPIRATORY DATA INTEGRITY: Respiratory data integrity [...] No result fo (more content not included)...The [facility] [id number] Note * PSE Appt H&P - Pierce Ramos APRN-COOK MESS - 02/15/2022 2:46 PM EDT Presurgical Evaluation Isabelle Hewitt, [id number] 46 year old Female 02/17/2022 VITAL SIGNS: [...] six months. No STOP-BANG Row Name 02/16/22 1423 History of sleep apnea? Yes Does not use CPAP PS12/17/2021 at [facility] RESPIRATORY DATA INTEGRITY: Respiratory data integrity [...] (LIPITOR) 20 mg tablet EKG 12-LEAD TRACING [[id number]] PLAN: Documentation complete. Labs, Images, and Medications reviewed, and patient questions answered. Interviewer signature: ARTURO Rankin 8:00 AM 02/17/2022 [facility]60[facility] Telephone encounter Note* Telephone Encounter - Mary Dennis RN - 02/11/2022 3:52 PM EDT Arrangements to be made for pre-op COVID testing per ENT request. [id number] Miscellaneous Notes* Telephone Encounter - Mary Dennis RN - 02/11/2022 3:52 PM EDT Arrangements to be made for pre-op COVID testing per ENT request. documented in this [id number] History of Present illness Narrative* Yi Moreno [...] indicating an AHI of 63 with an I8vchge of 64% Sleep position: Side Mouth breather:y yeses previous sleep surgeries: no Other sleep disorders, such as insomnia/ kataplexy/ narcolepsy: yes, on andoff Bruxism: no tried oral appliance:edenetulous Questionnaires: Avon sleep scale score: 18 FOSQ-10: HADS No [...] middle ear was aerated bilaterally. Clinical speech paperhanger pipe thresholds grossly intact. No lesions/mass of auricles. [...] Patient's procedure [facility] at [facility]. This is a difficult [...] transfusion as discussed preoperatively. documented in this [id number] History of Present illness Narrative* Randa Yanes [...] or not. Verbalizes understanding. [facility] this [facility]: 1(669) 456-471505-17-2022 Hospital Discharge instructions* Instructions* Ade Easton RN [...] flush the urinary tract.) Call Dr. Hirsch ([phone]) if you develop: Fever over 100 degrees [...] Call Dr. Hirsch office for follow-up appointment ([phone]). documented in this [facility] Work Phone: 1(811) 518-614603-21-2022 Evaluation note* Encounter Date Diagnosis Assessment Notes [...] even if she does not qualify for [employer] now she may qualify in the future [...] changes in symptoms and/or problems with treatment [place] [employer] Other Chibp complaint Narrative - ReportedISABELLE HEWITT is being seen for a consultation for abnormal test(s) results.-[facility]-[employer] DO Work Phone: Evaluation note* Diagnosis Kidney stones Calculus of kidney documented in this encounter [employer] Phone: evaluation note* Diagnosis Pre-op testing Preoperative examination, unspecified documented in this encounter [employer] Phone: evalcqnnoq note* Diagnosis Ureteral calculus- Primary Calculus of ureter documented in this encounter [employer] Phone: evalkuhapm note* Diagnosis DIONNE (obstructive sleep apnea)- Primary Obstructive sleep apnea (adult) (pediatric) Body mass index (BMI) 34.0-34.9, adult [facility] Other Evaluation note* Diagnosis DIONNE (obstructive sleep [...] ureter documented in this encounter DARIUS PICHARDO [employer] Phone: evalneemip note* Diagnosis DIONNE (obstructive sleep apnea)- Primary Obstructive sleep apnea (adult) (pediatric) Encounter for laboratory testing for severe acute respiratory syndrome coronavirus 2 (SARS-CoV-2) Postoperative pain Other acute postoperative pain [facility]* Diagnosis DIONNE (obstructive sleep apnea)- Primary Obstructive sleep apnea (adult) (pediatric) documented in this [facility] noteNo assessment information availableA[facility] Work Phone: Evaluation note* Diagnosis Obstructive [...] note* Diagnosis Dysuria documented in this encounter [employer] Phone: evaluation note* Diagnosis Post-operative state- Primary Other postprocedural status [facility]* Diagnosis Post-operative state- Primary Other postprocedural status [facility]* Diagnosis OAB (overactive bladder) Hypertonicity of bladder Urge incontinence Frequency of urination Urinary frequency documented in this encounter [employer] Phone: evaluation note* Diagnosis Onset Date Resolution Status Contact with and (suspected) exposure to covid-19 acute Influenza B noneactive Diarrhea acute Fecal urgency acute Alternating constipation and diarrhea acute Bloating acute Fecal urgency acute [facility] Work Phone: Evaluation note* Diagnosis Onset Date Resolution Status Constipation acute [facility] Work Phone: History and physical note Author David Martinez [facility] August 08, 2023 12:30pm Note Date/Time August 08, 2023 12:30pm [facility] [address] [place] [address] Gastroenterology H&P Signed Patient: Isabelle Hewitt I MR#: [id number] : 1975 Acct:[id number] Age/Sex: 48 / F Adm Date: 3 Loc: Room: Type: [facility] Attending Dr: David Martinez MD Copies to: [...] signed by David Martinez MD> 08/08/23 1230 [facility] Work Phone: Hiscjyj general Narrative - Reported* Type Description Date Medical History anxiety Medical History Hypertension Medical History sleep apnea Surgical History C section Surgical History cholecystectomy Hospitalization History see above Hospitalization History no history of ps ychiatric hospitalization, substance abuse, and suicide attempts, but she is history of ongoing treatment of depression and counseling for depression, anxiety Hospitalization History dehydration [place] Other History general Narrative - Reported* Type [...] counseling for depression, anxiety Hospitalization History dehydration [place] Other History of Present illness Narrative* Patient [...] office in 3 to 4 months follow-up [facility] [employer] DO Work Phone: History of Present illness [...] monitor blood pressure call if not better [facility] [employer] DO Work Phone: Hospital Discharge instructions [...] NOT operate machinery such as power tools, [employer] mowers, snow blowers, sewing machines, etc. for [...] in the office as scheduled -Office number [phone]. [facility] Work Phone: Reason for visit Narrative* Auth/Cert Specialty Diagnoses / Procedures Referred By Casper t Referred To Contact Diagnoses Kidney stone KIDNEY STONES Procedures HI CYSTO/URETERO W/LITHOTRIPSY &INDWELL STENT INSRT CYSTOSCOPY URETEROSCOPY LASER-WITH HLL Bertha Hirsch MD [address], [address] [place] [address] [facility] [id number] [place] [address] Referral ID Status Reason Start Date Expiration Date Visits Re quested Visits Authorized [id number] 1 1 [employer] Phone: reason for visit Narrative* Auth/Cert Specialty Diagnoses / Procedures Referred By Casper t Referred To Contact General Surgery Diagnoses DIONNE (obstructive sleep apnea) DIONNE (obstructive sleep apnea) [G47.33] Procedures PALATOPHARYNGOPLASTY UVULOPALATOPHARYNGOPLAS TY Yi Moreno MD [address] [place] [address] [facility] [address] [place] [address] Phone: [phone] Referral ID Status Reason Start Date Expiration Date Visits Re quested Visits Authorized [id number] 3 3 [facility] NarrativeRAPID COVID TEST FOR PROCEDURE, [facility] COVID voluntary/travelNorth Agorafy Other Family History No Family History Records [...] prostate Unknown mother Unknown Chief Complaint ISABELLE HEWITT is being [...] Unknown follow up Reason for Visit Constipation Chief Complaint follow up Sore on low back Reason for Visit Constipation Shingles Reason for Referral Specialty Diagnoses / Procedures Referred By Casper diaz Referred To Contact Oral Surgery Diagnoses DIONNE (obstructive sleep apnea) Yi Moreno MD [address] [place] [address] Rikki Rodrigues DMD, MD [address] [place] [address] Referral ID Status Reason Start Date Expiration Date V isits Requested Visits Authorized [id number] Pending Review 05/26/2022 05/26/2023 3 3 Scheduling Instructions Please call the [facility] at to schedule an appointment if one was not made for you today. Question Answer Patient to be evaluated for: Orthognathic/Jaw Surgery Additional Source Comments INFORMATION SOURCE (unrecogn ized section and content) DATE CREATED AUTHOR 12/03/2021 [employer] DATE CREATED AUTHOR AUTHOR'S ORGANIZ ATION 01/31/2023 [facility] DATE CREATED AUTHOR AUTHOR'S ORGANIZ ATION 01/31/2023 [facility] DATE CREATED AUTHOR AUTHOR'S ORGANIZ ATION 10/02/2023 [facility] DATE CREATED AUTHOR AUTHOR'S ORGANIZ ATION 01/19/[address] [facility] DATE CREATED AUTHOR AUTHOR'S ORGANIZ ATION 04/04/2024 [facility] DATE CREATED AUTHOR AUTHOR'S ORGANIZ ATION 04/14/2024 [facility] DATE CREATED AUTHOR AUTHOR'S ORGANIZ ATION 05/04/2024 [facility] EPIC Care Teams (unrecognized sec tion and content) Team Status: Active Member Role Status Dates Gena Kirby Primary Care Provider Active Team Status: Inactive Member Role Status Dates Gena Kirby Primary Care Provider Active Yi Moreno MD Referring Provider Active Wiley Mcmanus MD Attending Provider Active [employer] Mechanic Relationship Specialty Start Date End Date Gena Kirby [facility] [place] [address] PCP - General Nurse Practitioner 11/30/21 [employer] Mechan[employer] Relationship Specialty Start Date End Date Gena Kirby [address] [place] [address] PCP - General Nurse Practitioner 11/30/21 [employer] Mechanic Relationship Specialty Start Date End Date Gena Kirby [address] [place] [address] PCP - General Nurse Practitioner 11/30/21 [employer] Mechanic Relationship Specialty Start Date End Date Yi Moreno MD [address] [place] [address]358 Physician Otolaryngology 01/23/22 [employer] Mechanic Relationship Specialty Start Date End Date Yi Moreno MD [address] [place] [address] 65272 Physician Otolaryngology 01/23/22 [employer]ation [employer] Mechanic Relationship Specialty Start Date End Date Yi Moreno MD [address] [place] [address] 16752 Physician Otolaryngology 01/23/22 [employer]ation [employer] Mechanic Relationship Specialty Start Date End Date Yi Moreno MD [address] [place] [address] 21194 Physician Otolaryngology 01/23/22 [employer]ation [employer] Mechanic Relationship Specialty Start Date End Date Gena Kirby [address] [place] [address] PCP - General Nurse Practitioner 11/30/21 [employer] Mechanic Relationship Specialty Start Date End Date Yi Moreno MD [address] [place] [address] 29834 Physician Otolaryngology 01/23/22 [employer]ation [employer] Mechanic Relationship Specialty Start Date End Date Yi Moreno MD [address] [place] [address] 38545 Physician Otolaryngology 01/23/22 I[employer]ation [employer] Mechanic Relationship Specialty Start Date End Date Yi Moreno MD [address] [place] [address] 02002 Physician Otolaryngology 01/23/22 [employer]ation [employer] Mechanic Relationship Specialty Start Date End Date Yi Moreno MD [address] [place] [address] 75774 Physician Otolaryngology 01/23/22 Team Status: Inactive Member Role Status Dates Gena Kirby Primary Care Provider Active Wiley Mcmanus MD Attending Provider Active Yi Moreno MD Referring Provider Active [employer] Mechanic Relationship Specialty Start Date End Date Yi Moreno MD [address] [place] [address] 06126 Physician Otolaryngology 01/23/22 I[employer]ation Marble Mechanic Relationship Specialty Start Date End Date Yi Moreno MD [address] [place] [address] 50471 Physician Otolaryngology 01/23/22 Rikki Rodrigues DMD, MD [address] [place] [address] 91563 Physician Oral & Maxillofacial Surgery 06/26/22 I[employer]ation Marble Mechanic Relationship Specialty Start Date End Date Yi Moreno MD [address] [place] [address] 72891 Physician Otolaryngology 01/23/22 Imitation Marble Mechanic Relationship Specialty Start Date End Date Yi Moreno MD [address] [place] [address] 12402 Physician Otolaryngology 01/23/22 Rikki Rodrigues DMD, MD [address] [place] [address] 96274 Physician Oral & Maxillofacial Surgery 06/26/22 Imitation Marble Mechanic Relationship Specialty Start Date End Date Yi Moreno MD [address] [place] [address] 63965 Physician Otolaryngology 01/23/22 Rikki Rodrigues DMD, MD [address] [place] [address] 55497 Physician Oral & Maxillofacial Surgery 06/26/22 Imitation Marble Mechanic Relationship Specialty Start Date End Date Yi Moreno MD [address] [place] [address] 77203 Physician Otolaryngology 01/23/22 Rikki Rodrigues DMD, MD [address] [place] [address] 82795 Physician Oral & Maxillofacial Surgery 06/26/22 Imitation Marble Mechanic Relationship Specialty Start Date End Date Yi Moreno MD [address] [place] [address] 18876 Physician Otolaryngology 01/23/22 Imitation Marble Mechanic Relationship Specialty Start Date End Date Yi Moreno MD [address] [place] [address] 65763 Physician Otolaryngology 01/23/22 Rikki Rodrigues DMD, MD [address] [place] [address] 35924 Physician Oral & Maxillofacial Surgery 06/26/22 Imitation Marble Mechanic Relationship Specialty Start Date End Date Yi Moreno MD [address] [place] [address] 54035 Physician Otolaryngology 01/23/22 Rikki Rodrigues DMD, MD [address] [place] [address] 30739 Physician Oral & Maxillofacial Surgery 06/26/22 Imitation Marble Mechanic Relationship Specialty Start Date End Date Yi Moreno MD [address] [place] [address] 45619 Physician Otolaryngology 01/23/22 Rikki Rodrigues DMD, MD [address] [place] [address] 48313 Physician Oral & Maxillofacial Surgery 06/26/22 Imitation Marble Mechanic Relationship Specialty Start Date End Date Yi Moreno MD [address] [place] [address] 57332 Physician Otolaryngology 01/23/22 Rikki Rodrigues DMD, MD [address] [place] [address] 21359 Physician Oral & Maxillofacial Surgery 06/26/22 Imitation Marble Mechanic Relationship Specialty Start Date End Date Yi Moreno MD [address] [place] [address] 36569 Physician Otolaryngology 01/23/22 Rikki Rodrigues DMD, MD [address] [place] [address] 13845 Physician Oral & Maxillofacial Surgery 06/26/22 Gena Holbrook, STRIPPER APPRENTICE-COOK MESS [address] [place] [address] 92348 OPERATING SYSTEMS SPECIALIST Anesthesiology 07/24/22 Imitation Marble Mechanic Relationship Specialty Start Date End Date Yi Moreno MD [address] [place] [address] 31155 Physician Otolaryngology 01/23/22 Rikki Rodrigues DMD, MD [address] [place] [address] 22246 Physician Oral & Maxillofacial Surgery 06/26/22 Gena Holbrook APRN-CNP [address] [place] [address] 79608 OPERATING SYSTEMS SPECIALIST Anesthesiology 07/24/22 Imitation Marble Mechanic Relationship Specialty Start Date End Date Gena Kirby [address] [place] [address] PCP - General Nurse Practitioner 11/30/21 Imitation Marble Mechanic Relationship Specialty Start Date End Date Yi Moreno MD [address] [place] [address] 51931 Physician Otolaryngology 01/23/22 Rikki Rodrigues DMD, MD [address] [place] [address] 44235 Physician Oral & Maxillofacial Surgery 06/26/22 Gena Holbrook APRN-CNP [address] [place] [address] 06696 OPERATING SYSTEMS SPECIALIST Anesthesiology 07/24/22 Imitation Marble Mechanic Relationship Specialty Start Date End Date Yi Moreno MD [address] [place] [address] 27206 Physician Otolaryngology 01/23/22 Rikki Rodrigues DMD, MD [address] [place] [address] 44815 Physician Oral & Maxillofacial Surgery 06/26/22 Gena Holbrook APRN-COOK MESS [address] [place] [address] 10281 OPERATING SYSTEMS SPECIALIST Anesthesiology 07/24/22 Imitation Marble Mechanic Relationship Specialty Start Date End Date Gena Kirby [address] [place] [address] PCP - General Nurse Practitioner 11/30/21 Imitation Marble Mechanic Relationship Specialty Start Date End Date Yi Moreno MD [address] [place] [address] 30660 Physician Otolaryngology 01/23/22 Rikki Rodrigues DMD, MD [address] [place] [address] 43759 Physician Oral & Maxillofacial Surgery 06/26/22 Gena Holbrook APRN-COOK MESS [address] [place] [address] 61443 OPERATING SYSTEMS SPECIALIST Anesthesiology 07/24/22 Team Status: Inactive Member Role [...] March 13, 2024 End: March 13, 2024 Team Status: Inactive Member Role Status Dates Gena Kirby Primary Care Provider Active Sta rt: April 16, 2024 End: April 16, 2024 Jerica Fitzpatrick APRN Attending Provider Active Start: April 16, 2024 End: April 16, 2024 Scheduled Active and Recently Administ ered [...] IVPB 400 mg (COMPLETED) 400 mg, IntraVENous, BUSINESS IMPROVEMENT MANAGER TO O.R., 1 dose, On Tue01/05/22 at [...] dose, Starting on Tue01/05/22 at 1558, Until Tu01/05/22 at 2359, Pain Severe (7-10), PHASE II, PACU only oxyCODONE (ROXICODONE) immediate release tablet 5 mg(Linked Group 1) 5 mg, Oral, PRN, 1 dose, Starting on Tue01/05/22 at 1558, Until Tu01/05/22 at 2359, Pain Moderate (4-6), PHASE II, [...] Provider: Jerel Pittman RN - Reason: Patient refused)2055 (Given - Provider: Ashvin Mims) 0850 (Given [...] PRN, Starting on Tue02/25/22 at 1423, Until 03/01/22 at 1422, Nausea, [...] Brown, RN)1400 (Due - Provider: Dulce Olson [facility])1800 (Due - Provider: Dulce Olson [facility])2200 (Due - Provider: Dulce Olson [facility]) acetaminophen (TYLENOL) tablet (CANCELED) 650 [...] (IV New Bag - Provider: Lemuel Gilbert, CALITSA) 0348 (IV New Bag - Provider: Donya [...] Down 0800 (Given - Provider: Lauren Crawford, [place]IST[place]) 08 (Given - Provider: Linh Fregoso RN) 0916 (Given - Provider: Penny Brown, CALISTA) chlorhexidine (PERIDEX) 0.12 % oral solution 15 mL, Swish & Spit, 2 TIMES DAILY, First dose on Tue07/14/22 at 1530, Until Discontinued, ICU/Step Down 0900 (Given - Provider: Lauren Crawford, CALISTA)2099 (Given - Provider: Lemuel Gilbert, CALISTA) 08 (Given - Provider: Linh Fregoso, CALISTA)2042 (Given - Provider: Lola Wyatt RN) 09 (Given - Provider: Penny Brown, CALISTA)2099 (Due) dexamethasone (DECADRON) 4 MG/ML injection (COMPLETED) 8 mg, Intravenous Push, EVERY 8 HOURS, 3 doses, First dose on Tue07/14/22 at 1530, Last dose on Tue07/15/22 at 0900, ICU/Step Down 0109 (Given - Provider: Alon Cotton, CALISTA)0800 (Given - Provider: Lauren Crawford RN) dextrose [...] Down 0800 (Given - Provider: Lauren Crawford, CALISTA)2123 (Given - Provider: Lemuel Gilbert, CALISTA) 08 (Given - Provider: Linh Fregoso, CALISTA)2045 (Hold/Not Given - Provider: Lola Wyatt RN - Reason: Patient refused) 09 (Hold/Not Given - Provider: Penny Brown, CALISTA - Reason: Patient refused)2099 (Due) enoxaparin (LOVENOX) [...] Clinical contraindications)17 04 (Given - Provider: Lauren Carwford RN) 0800 (Hold/Not Given - Provider: Linh [...] Until Discontinued 2123 (Given - Provider: Lemuel Gilbert RN) 204 (Given - Provider: Lola Wyatt, CALISTA)2100 (Hold/Not Given - Provider: Lola Wyatt, CALISTA - Reason: Previously Administered) 2200 (Due) oxybutynin (DITROPAN) 5 MG tablet 5 mg, Oral, 3 TIMES DAILY, First dose on Tue07/14/22 at 1800, Until Discontinued, ICU/Step Down 0625 (Given - Provider: Alon Cotton RN)1315 (Given - Provider: Lauren Crawford RN)2124 (Given - Provider: Lemuel Gilbert, CALISTA) 0655 (Given - Provider: Donya Lam RN)1358 (Given - Provider: Cleo Tao, CALISTA)2046 (Hold/Not Given - Provider: Lola Wyatt, CALISTA - Reason: Patient refused) 0409 (Hold/Not Given [...] oxymetazoline (AFRIN) 0.05 % nasal solution 2 [place], Nasal, EVERY 4 HOURS PRN, Starting on Tue07/14/22 at 1516, Until Discontinued, Nosebleed, ICU/Step Down sodium chloride (OCEAN) 0.65 % nasal spray 1 [place], Nasal, EVERY 1 HOUR PRN, Starting on Tue07/14/22 at 1516, Until Discontinued, Congestion, Congestion due to dryness, ICU/Step Down Reason for Visit (unrecogniz ed section and content) Reason Comments New patient, to establish relationship S leep Apnea, Inspire Specialty Diagnoses / Procedures Referred By Casper t Referred To Contact Ent-Otolaryngology Diagnoses Sleep apnea, unspecified type Wilye Mcmanus MD [address] [place] [address] [facility] [address] [place] [address] Referral ID Status Reason Start Date Expiration Date Visits Requested Visits Authorized [id number] Pending Review [facility] 01/01/2022 01/01/2023 3 3 Reason Onset Date Comments Pre-surgical Evaluation 02/11/2022 Pre-op C OVID testing Reason Onset Date Comments Pre-surgical Evaluation 02/17/2022 Pre-op C OVID testing Reason Onset Date Comments Pre-surgical Evaluation 02/24/2022 Pre-op C OVID testing - results Reason Comments Hospital follow-up Reason Comments New patient, to establish relationship Specialty Diagnoses / Procedures Referred By Casper t Referred To Contact Oral Surgery Diagnoses DIONNE (obstructive sleep apnea) Yi Moreno MD [address] [place] [address] Rikki Rodrigues DMD, MD [address] [place] [address] Referral ID Status Reason Start Date Expiration Date V isits Requested Visits Authorized [id number] Pending Review 05/26/2022 05/26/2023 3 3 Reason [...] SAGITTAL SPLIT, BILATERAL Rikki Rodrigues DMD, MD [address] [place] [address] [facility] [address] [place] [address] Phone: [phone] Referral ID Status Reason Start Date Expiration Date Visits Re quested Visits Authorized [id number] 3 3 Reason Comments Post Op Check [...] BE BASED ON THE PRIMARY CLINICAL RECORDS. [facility] [employer] [facility]. provides no warranty or guarantee of the accuracy or completeness of information in this document.
[2024-05-07 14:28] LABS: Internal Control Within Normal Limits; SARS-CoV-2 Ag NEGATIVE (NEGATIVE)
== END 2024-05-07 12:02 | disposition home or self-care (01) ==
LOC: LAB 12:01
PROVIDERS: PCP Nurse Practitioner; Visit Provider Nurse Practitioner
DX: J06.9 Acute upper respiratory infection, unspecified (principal); Z20.822 Contact with and (suspected) exposure to COVID-19
CPT/HCPCS: 87811

== ENCOUNTER 2024-07-11 13:59 | Outpatient (OUT) | payer OTHER, SELFPAY ==
--- NOTE | 2024-07-11 14:01 | MM_ITS ---
Patient Name: VEDA HEWITT MR#: [id number] : 1975 Exam Date: 07/11/2024 Ordering Doctor: DR Oswald Harrington . RADIOLOGY REPORT PROCEDURE: MM TOMOSYNTHESIS DIAGNOSTIC LT COMPARISON: MM STEREOTACTIC LOC LT, 12/29/2023. MM POST BIOPSY LT, 12/29/2023. INDICATIONS: Abnormal Mammogram Calculator Name NCI Breast Cancer Risk Assessment Tool 5 Year Breast Cancer Risk Not Reported. Lifetime Breast Cancer Risk Not Reported. Personal Breast Cancer No Personal Ovarian Cancer No Treatments None Family Cancers None LOCATION: [facility] BREAST COMPOSITION: The breasts are heterogeneously dense,which may obscure small masses. FINDINGS: DIAGNOSTIC CATEGORY 2--BENIGN FINDING. NO CHANGE FROM COMPARISON. The left breast is stable in size and overall fibroglandular configuration. Geographically distributed microcalcifications are grossly stable. Micro clip marker is unchanged. RECOMMENDATIONS: ROUTINE MAMMOGRAM AND CLINICAL EVALUATION , bilateral mammogram due November of 2024. PLEASE NOTE: A NORMAL MAMMOGRAM DOES NOT EXCLUDE THE POSSIBILITY OF BREAST CANCER. A CLINICALLY SUSPICIOUS PALPABLE LUMP SHOULD BE BIOPSIED. Dictated by: Joe James MD on 07/11/2024 at 14:25 Approved by: Joe James MD on 07/11/2024 at 14:26
== END 2024-07-11 14:00 | disposition home or self-care (01) ==
LOC: MAMMO 13:59
PROVIDERS: PCP Nurse Practitioner; Visit Provider Obstetrics & Gynecology
DX: R92.8 Other abnormal and inconclusive findings on diagnostic imaging of breast (principal)
CPT/HCPCS: 77065; G0279

== ENCOUNTER 2024-07-11 14:31 | Outpatient (OUT) | payer OTHER, SELFPAY ==
--- OUTSIDE RECORDS SUMMARY | 2024-07-11 14:55 | XMS_ITS | CCD ---
Author Organization [facility] ion Partnership [facility] Care Team Providers Care Treasury Associate Name Role Phone Gena Kirby Unavailable Unavailable Unavailable Gena Kirby Primary Care Provider Unavailable Primary Care Provider Unavailabl e Yi Moreno MD Unavailable Wiley Mcmanus Unavailable Yi Moreno MD Unavailable eGna Kirby Primary Care Provider MD Wiley Mcmanus Attending Provider MD Yi Moreno Referring Provider [phone] Isabel Sin Unavailable Matthew RITCHIE MD, Justin Unavailable Gena Corrales Unavailable [phone] Gena Kirby Primary Care Provider Yi Moreno MD Unavailable Matthew RITCHIE MD, Justin Unavailable Gena Corrales Unavailable [phone] Gena Kirby Primary Care Provider MD Yi Moreno Referring Provider MD Wiley Mcmanus Attending Provider Gena Corrales Unavailable AICHHOLZ, DIRECTOR SUPPLY CHAIN GENA Admitting Unavailable AICHHOLZ, DIRECTOR SUPPLY CHAIN GENA Attending Unavailable AICHHOLZ, DIRECTOR SUPPLY CHAIN GENA Consulting Unavailable AICHHOLZ, DIRECTOR SUPPLY CHAIN GENA Primary Care Unavailable LEN ., DR ARIZA Attending Unavailable LEN ., DR ARIZA Consulting Unavailable LEN ., DR ARIZA Admitting Unavailable AICHHOLZ, DIRECTOR SUPPLY CHAIN GENA Primary Care Unavailable WEST, DR WILEY Bryant Consulting Unavailable LEN ., DR ARIZA Attending Unavailable AICHHOLZ, DIRECTOR SUPPLY CHAIN GENA Primary Care Unavailable LEN ., DR ARIZA Admitting Unavailable LEN ., DR ARIZA Consulting Unavailable AICHHOLZ, DIRECTOR SUPPLY CHAIN GENA Primary Care Unavailable AICHHOLZ, DIRECTOR SUPPLY CHAIN GENA Admitting Unavailable AICHHOLZ, DIRECTOR SUPPLY CHAIN GENA Attending Unavailable AICHHOLZ, DIRECTOR SUPPLY CHAIN GENA Consulting Unavailable LEN ., DR ARIZA Attending Unavailable AICHHOLZ, DIRECTOR SUPPLY CHAIN GENA Primary Care Unavailable LEN ., DR ARIZA Admitting Unavailable LEN ., DR ARIZA Admitting Unavailable LEN ., DR ARIZA Attending Unavailable AICHHOLZ, DIRECTOR SUPPLY CHAIN GENA Primary Care Unavailable LEN ., DR ARIZA Consulting Unavailable TATETERESAMARTIN Consulting Unavailable MARGARITA II, BERTHA Consulting Unavailable LEN ., DR ARIZA Attending Unavailable AICHHOLZ, DIRECTOR SUPPLY CHAIN GENA Primary Care Unavailable LEN ., DR ARIZA Admitting Unavailable LEN ., DR ARIZA Attending Unavailable AICHHOLZ, DIRECTOR SUPPLY CHAIN GENA Primary Care Unavailable LEN ., DR ARIZA Admitting Unavailable LEN ., DR ARIZA Consulting Unavailable LEN ., DR ARIZA Admitting Unavailable LEN ., DR ARIZA Attending Unavailable AICHHOLZ, DIRECTOR SUPPLY CHAIN GENA Primary Care Unavailable AICHHOLZ, DIRECTOR SUPPLY CHAIN GENA Primary Care Unavailable AICHHOLZ, DIRECTOR SUPPLY CHAIN GENA Attending Unavailable AICHHOLZ, DIRECTOR SUPPLY CHAIN GENA Admitting Unavailable AICHHOLZ, DIRECTOR SUPPLY CHAIN GENA Consulting Unavailable LEN ., DR ARIZA Attending Unavailable LEN ., DR ARIZA Consulting Unavailable AICHHOLZ, DIRECTOR SUPPLY CHAIN GENA Primary Care Unavailable LEN ., DR ARIZA Admitting Unavailable ZIEBER, DR MADDI Wild Consulting Unavailable AICHHOLZ, DIRECTOR SUPPLY CHAIN GENA Consulting Unavailable AICHHOLZ, DIRECTOR SUPPLY CHAIN GENA Primary Care Unavailable AICHHOLZ, DIRECTOR SUPPLY CHAIN GENA Attending Unavailable AICHHOLZ, DIRECTOR SUPPLY CHAIN GENA Admitting Unavailable MISC, DR PETERS Admitting Unavailable MISC, DR PETERS Attending Unavailable MISC, DR PETERS Consulting Unavailable AICHHOLZ, DIRECTOR SUPPLY CHAIN GENA Primary Care Unavailable AICHHOLZ, DIRECTOR SUPPLY CHAIN GENA Primary Care Unavailable AICHHOLZ, DIRECTOR SUPPLY CHAIN GENA Attending Unavailable AICHHOLZ, DIRECTOR SUPPLY CHAIN GENA Admitting Unavailable AICHHOLZ, DIRECTOR SUPPLY CHAIN GENA Consulting Unavailable PROVIDER, UNKNOWN Admitting Unavailable [...] UNKNOWN Attending Unavailable CLEMOW, RIKKI Referring Unavailable WEIDENCLEMENTINA, YI Rebollar Admitting Unavailabl e WEIDENBECHER, YI [...] Referring Unavailabl Gena Landaverde Primary Care Provider [phone] MD Wiley Mcmanus Attending Provider [phone] Louise Johnson Unavailable Majo Lyman Unavailable Gena Kirby Primary Care Provider KATHRIN Lyman Attending Provider MD David Martinez Attending Provider David Maritnez Unavailable MD Wiley Mcmanus Attending Provider CELESTINOELL ELIN W Referring Unavailable AICHHOLZ, GENA J. Primary Care Unavailable PARSELL, ELIN W Referring Unavailable AICHHOLZ, GENA J. Primary Care Unavailable PARSELL, ELIN W Referring Unavailable AICHHOLZ, GENA J. Primary Care Unavailable PARSELL, ELIN W Referring Unavailable AICHHOLZ, GENA J. Primary Care Unavailable CELESTINOELL, ELIN W Referring Unavailable AICHHOLZ, GENA J. Primary Care Unavailable Aichholz, Gena J Primary Care Provider [phone] Aichdia, Gena J Primary Care Provider MD Wiley Mcmanus Attending Provider KATHRIN Lyman Attending Provider Kofi Gena J Primary Care Provider MD Wiley Mcmanus Attending Provider Oswald Harrington Attending Provider [phone] Oswald Harrington Attending Provider MAJO CATALAN Attending Unavailable RAMESH, LLOYD A Referring Unavailable RAMESH, LLOYD A Primary Care Unavailable ALAYNAMAJO LIVINGSTON Attending Unavailable RAMESH, LLOYD A Referring Unavailable RAMESH, LLOYD A Primary Care Unavailable ALAYNAMAJO LIIVNGSTON Attending Unavailable RAMESH, LLOYD A Referring Unavailable RAMESH, LLOYD A Primary Care Unavailable ALAYNAMAJO LIVINGSTON Attending Unavailable RAMSEH, LLOYD A Referring Unavailable RAMESH, LLOYD A Primary Care Unavailable ALAYNAMAJO LIVINGSTON Attending Unavailable RAMESH, LLOYD A Referring Unavailable RAMESH, LLOYD A Primary Care Unavailable Aichholz, Gena J Primary Care Provider KATHRIN Lyman Attending Provider KOFI DIRECTOR SUPPLY CHAIN, GENA Primary Care Unavailable DESIREE SYKES DO Consulting Unavailable HERMES ERNST~[id number], HERMES Beltran Admitting Unavailable HERMES ERNST~[id number], HERMES Beltran Attending Unavailable DESIREE SYKES DO Consulting Unavailable RIO ACCOUNTS SPECIALISTCHRIS Consulting Unavailable CHRIS PATE CRNA Consulting Unavailable Joelhdia TELEPHONE ADVICE NURSE, Gena Unavailable Magdiel Munoz MD Primary Care Provider KOFI, GENA Attending Unavailable AUREA MARC Attending Unavailable AICHHOLZ, GENA Attending Unavailable AICHHOLZ, GENA Attending Unavailable AICHDIA, GENA Attending Unavailable AICHDIA, GENA Attending Unavailable KOFI, GENA Attending Unavailable Kofi, Gena J Primary Care Unavailable Asaad, Imad Admitting Unavailable Asaad, Imad Attending Unavailable Len, Oswald Admitting Unavailable Len, Oswald Attending Unavailable Joelhdia, Gena J Primary Care Unavailable Aichdia, Gena J Primary Care Unavailable ScovanMajo moya Admitting Unavailable ScovanMajo moya M Attending Unavailable Joelhdia, Gena Andino Primary Care Unavailable Wiley Mcmanus Admitting Unavailable Wiley Mcmanus Attending Unavailable Gena Kirby Primary Care Unavailable Wiley Mcmanus Admitting Unavailable Wiley Mcmanus Attending Unavailable Kofi, Gena Andino Primary Care Unavailable ScovannerMajo M Admitting Unavailable ScovannerMajo Attending Unavailable ScovannerMajo M Admitting Unavailable ScMajo ria Attending Unavailable Gena Kirby Primary Care Unavailable Medications Current Medications Medication [...] Start: 02-25-2022 take 2 tablets by mo [facility] every four hours as needed acetaminophen [...] 0 Refills: 0 Ordered: 14-Oct-2021 DO Active alosetron 1 mg oral tablet (6 sources) Serotonin-3 Receptor Antagonist Start: 06-11-2024 take 1 tablet by mouth in the morning alosetron (Lotronex) 1 MG tablet Take 1 mg by mouth in the morning and 1 mg before bedtime. 06/11/2024 Active Start: 05-16-2024 End: 06-11-2024 take 1 tablet by mouth once daily Alosetron (Lotronex) 0.5 mg tablet Discontinued 0.5 MG PO Daily May 16, 2024 12:00am June 11, 2024 4:00pm Ampicillin / Sulbactam (2 sources) Penicillin-class Antibacterial, beta Lactamase Inhibitor Start: 07-15-2022 End: 07-20-2022 ampicillin-sulbactam (Unasyn) 3000 mg in NS 100 mL ivpb Start: 07-14-2022 End: 07-14-2022 3,000 mg, Intravenous, EVERY 6 HOURS ANTIBIOTIC, 2 doses, First dose on Tue07/14/22 at 1530, Last dose on Tue07/14/22 at 1800 atenolol 100 mg oral tablet (20 sources) beta-Adrenergic Mami Start: 10-14-2023 End: 06-25-2024 take 1 tablet by mouth once daily atenolol (Tenormin) 100 MG tablet Indications: Primary hypertension (CMS/HCC) Take 1 tablet (100 mg) by mouth Daily 90 tablet 1 03/27/2024 06/25/2024 Active Start: 07-14-2022 End: 07-15-2022 take 100 mg by mouth once daily 100 mg, Oral, DAILY, First dose on Tue07/14/22 at 1800, Until Discontinued, ICU/Step Down Start: 02-25-2022 atenolol (TENO RMIN) tablet Start: 08-25-2021 take 1 tablet by rosy once daily atenolol (TENORMIN) 100 mg tablet Take 100 mg by mouth daily. 0 12/01/2021 Active calcium polycarbophil (8 sources) Calcium Polycarb [...] ICU/Step Down cholecalciferol 0.05 mg oral capsule (15 sources) Vitamin D Start: 10-14-2023 take 1 capsule by mouth once daily Cholecalciferol (Vitamin D3) Active 1 CAP PO Daily October 14, 2023 1:00am FreeTextSi capsule Orally Once a day; Note: Source Status: Taking; Provider: Yonathan Diaz ( ) take 1 capsule by [facility] every twenty-four hours Vitamin D3 50 [...] by rosy th twice daily as needed for anxiety KlonoPIN 1 MG tablet Take 1 mg by mouth 2 (two) times a day as needed for anxiety Active take 1 tablet by rosy th once daily as needed KlonoPIN 1 MG Oral Tablet TAKE 1 TABLET Daily prn Quantity: 0 Refills: 0 Ordered: 14-Oct-2021 DO Active dicyclomine hydrochloride 10 mg oral capsule (20 sources) Anticholinergic Start: 08-12-2023 End: 11-02-2023 take 10 mg by mouth three times daily Dicyclomine Discontinued 10 MG PO Three times daily October 14, 2023 1:00am November 02, 2023 4:00pm Start: 08-12-2023 End: 11-02-2023 take 10 mg by mouth four times daily Dicyclomine Active 10 MG PO Four times daily 120 30 November 02, 2023 4:03pm 0.4 ml enoxaparin sodium 100 mg/ml prefilled [...] Quantity: 90 Refills: 3 Ordered: 14-Oct-2021 Eileen iNchols MD Start : 14-Oct-2021 Active stop lasix and potassium Start: 10-14-2021 End: 05-28-2022 take 1 tablet by mouth every other day at bedtime triamterene-hydrochlorothiazide (MAXZIDE ) 37.5-25 MG tablet Take 1 Tablet by mouth every other day. HS 0 12/14/2021 Active IB Guard (1 source) Start: 06-11-2024 IB Guard Activ e PO June 11, 2024 12:00am insulin lispro 100 unt/ml injectable solution (1 source) Insulin Analog Start: 07-15-2022 insulin lispro (HumaLOG) 100 UNIT/ML injection levothyroxine sodium 0.075 mg oral tablet (20 sources) l-Thyroxine Start: 10-14-2023 End: 06-25-2024 take 1 tablet by mouth before mealtime levothyroxine (Synthroid, Levoxyl) 75 MCG tablet Indications: Other specified hypothyroidism (CMS/HCC) Take 1 tablet (75 mcg) by mouth in the morning. Take before meals. 90 tablet 1 03/27/2024 06/25/2024 Active Start: 07-14-2022 take 50 ug by mouth [...] Active loperamide hydrochloride 2 mg oral capsule (13 sources) Opioid Agonist Start: 12-06-2023 take 1 capsule by mouth every six hours as needed for diarrhea loperamide (Imodium) 2 MG capsule Take 2 mg by mouth every 6 (six) hours if needed for diarrhea 01/18/2024 Active 24 hr metFORMIN hydrochloride 500 mg extended release oral tablet (20 sources) Biguanide Start: 12-26-2023 take 1 tablet by mouth once daily at dinner metFORMIN XR (Glucophage-XR) 500 MG 24 hr tablet Indications: Insulin resistance TAKE 1 TABLET BY MOUTH EVERY DAY WITH THE EVENING MEAL 90 tablet 3 12/26/2023 Active Start: 10-14-2023 take 1 tablet by rosy th once daily Metformin Active 1 TAB PO Daily October 14, 2023 1:00am FreeTextSi tablet with a meal Orally Once a day; Note: Source Status: Taking; Provider: Yonathan Diaz ( ) Start: 07-14-2022 take 500 mg by mouth once gagan y 500 mg, Oral, DAILY, First dose on [...] by mouth once daily Multiple Vitamins-Minerals (THERAPEUTIC MULTIVITAMIN-LIGHTNING PROTECTION INSTALLER ALS) tablet Take 1 tablet by mouth daily 0 Suspended take 1 tablet by mouth once gagan y Multiple Vitamins-Minerals (THERAPEUTIC MULTIVITAMIN-MINERALS) tablet Take 1 tablet by mouth daily 0 Active Multivitamin (One Daily Multivitamin) tablet (11 sources) Start: 10-14-2023 take 1 tablet by mouth once daily Multivitamin (One Daily Multivitamin) tablet Active 1 TAB PO Daily October 14, 2023 1:00am Start: 10-14-2023 take 1 tablet by rosy th once daily Multivitamin (One Daily Multivitamin) tablet Active 1 TAB PO Daily October 14, 2023 12:00am Multivitamin preparation (9 sources) Multivitamin Act alisia multivitamin with minerals (Centrum) 9-200 mg-mcg tablet split tablet (3 sources) Start: take 1 tablet by mouth once daily multivitamin with minerals (Centrum) 9-200 mg-mcg tablet split tablet Take 1 tablet by mouth Daily 10/14/2023 Active 1 ml naloxone hydrochloride 0.4 mg/ml injection (2 sources) Opioid Antagonist Start: naloxone (NARCAN) 0.4 MG/ML injection Start: 02-25-2022 [...] 0 Active ondansetron 8 mg oral tablet (13 sources) Serotonin-3 Receptor Antagonist Start: 10-14-2023 take [...] chloride 20 meq extended release oral tablet (18 sources) Start: 10-14-2023 End: 06-25-2024 take 1 tablet by mouth once daily potassium chloride CR (K-Tab) 20 MEQ ER tablet Indications: Hypokalemia Take 1 tablet (20 mEq) by mouth Daily 90 tablet 1 03/27/2024 06/25/2024 Active take 1 tablet by [facility] every twenty-four hours Potassium Chloride ER 20 [...] Husk (Fiber (Psyllium Husk)) 0.4 gram capsule (11 sources) Start: 10-14-2023 Psyllium Husk (Fiber (Psyllium Husk)) 0.4 gram capsule Active 0.8 GM PO Twice daily October 14, 2023 1:00am Start: 10-14-2023 Psyllium Husk (Fiber (Psyllium Husk)) 0.4 gram capsule Active 0.8 GM PO Twice daily October 14, 2023 12:00am QUEtiapine 50 mg oral tablet (20 sources) Atypical Antipsychotic Start: 11-23-2023 take 2 tablets by mouth at bedtime QUEtiapine (SEROquel) 50 MG tablet Take 100 mg by mouth at bedtime 11/23/2023 Active Start: 10-14-2023 Quetiapine Act alisia MG PO October 14, 2023 1:00am FreeTextSi tablet twice daily Orally twice daily; Note: Source Status: Taking; Provider: Yonathan Diaz ( ) Start: 09-14-2022 take 2 tablets by mo [facility] once daily QUEtiapine (SEROQUEL) 50 MG tablet [...] Active saccharomyces boulardii 250 mg oral capsule (11 sources) Start: 10-14-2023 take 1 capsule by mouth once daily Saccharomyces Boulardii (Daily Probiotic (S. Boulardii)) 250 mg capsule Active 250 MG PO Daily October 14, 2023 1:00am sodium chloride 0.111 meq/ml nasal solution (15 sources) Start: 07-17-2022 take 1 spray(s) nasal route twice daily as needed for congestion sodium chloride ([place] Nasal [place]) 0.65 % nasal spray Use 1 [place] in each nostril as needed for Congestion (2 puffs nasally twice daily). 1 mL 3 07/17/2022 Active Start: 07-14-2022 1 [place], Nasal , EVERY 1 HOUR PRN, Starting [...] chloride 60 mg extended release oral capsule (14 sources) Cholinergic Muscarinic Antagonist Start: 11-02-2023 take 1 capsule by mouth once daily trospium (Sanctura XR) 60 MG 24 hour capsule Take 60 mg by mouth Daily 11/22/2023 Active take 1 tablet by mouth twice alonso [...] Down Start: 11-30-2021 take 1 capsule by [facility] once daily at mealtime Venlafaxine (Effexor Xr) 75 mg capsule,extended release 24hr Active 75 MG PO Daily October 14, 2023 1:00am FreeTextSi capsule with food Orally Once a day; Note: Source Status: Taking; Provider: Yonathan Diaz ( ) Start: 11-30-2021 take 1 capsule by mo uth once daily venlafaxine (EFFEXOR XR) 150 MG ER capsule Take 150 mg by mouth daily. 0 11/30/2021 Active take 1 capsule by mo uth every twenty-four hours in the morning venlafaxine XR (Effexor XR) 150 MG 24 hr capsule Take 1 capsule by mouth in the morning. Active take 1 tablet by rosy th once daily venlafaxine (EFFEXOR) 75 MG tablet Take 1 tablet by mouth daily 0 Active VITAMIN D, CHOLECALCIFEROL, PO (11 sources) VITAMIN D, EDU CALCIFEROL, PO Take by mouth. Active VITAMIN D, EDU CALCIFEROL, PO Take by mouth 0 Suspended VITAMIN D, EDU CALCIFEROL, PO Take by mouth 0 Active Vitamin D3 (5 sources) Vitamin D3 Activ e Completed/Discontinued Medications Medication Drug Class(es) Dates Sig (Normalized) Sig (Original) amoxicillin 875 mg / clavulanate 125 mg oral tablet (3 sources) Penicillin-class Antibacterial Start: 05-02-2024 End: 06-19-2024 amoxicillin-clavul anate (Augmentin) 875-125 MG tablet 05/02/2024 06/19/2024 Discontinued (Therapy completed) Start: 07-17-2022 End: 07-21-2022 take 1 tablet by mouth twice daily amoxicillin-clavulanate (Augmentin) 875-125 MG per tablet Take 1 Tablet by mouth 2 times daily for 4 days. 8 Tablet 0 07/17/2022 07/21/2022 Active ARIPiprazole (5 sources) Atypical Antipsychotic Abilify Not-Taking atorvastatin 20 mg oral tablet (20 sources) HMG-CoA Reductase Inhibitor Start: 10-14-19 End: 09-17-19 take 1 tablet by mouth in the evening atorvastatin (Lipitor) 20 MG tablet Indications: Mixed hyperlipidemia (CMS/HCC) Take 1 tablet (20 mg) by mouth in the evening 90 tablet 02/07/2024 06/19/2024 Discontinued (Reorder) Start: 07-14-2022 take 20 mg by mouth once daily 20 mg, Oral, DAILY, First dose on Tue07/14/22 at 1800, Until Discontinued, ICU/Step Down Start: 02-26-2022 atorvastatin ( LIPITOR) tablet Start: 01-01-2022 atorvastatin ( LIPITOR) 20 mg tablet Take 20 mg by mouth. 0 01/01/2022 Active azelastine hydrochloride 0.137 mg/actuat metered dose nasal spray (2 sources) Histamine-1 Receptor Antagonist Start: 05-02-2024 End: 06-19-2024 azelastine (Astelin) 0.1 % nasal spray 05/02/2024 06/19/2024 Discontinued (Therapy completed) benzonatate 200 mg oral capsule (2 sources) Non-narcotic Antitussive Start: 05-02-2024 End: 06-19-2024 benzonatate (Tessalon) 200 MG capsule 05/02/2024 06/19/2024 Discontinued (Therapy completed) bifidobacterium animalis [id number] unt / lactobacillus acidophilus [id number] unt oral capsule (2 sources) Probiotic CAPS [...] fumarate 8 mg extended release oral tablet (12 sources) Start: 10-14-2023 End: 11-02-2023 take 1 [...] HYDROmorphone (DILAUDID) 0.2 MG/ML injection 0.2 mg ibuprofen 800 mg oral tablet (12 sources) Nonsteroidal Anti-inflammatory Drug Start: 04-16-2024 End: 06-19-2024 ibuprofen 800 MG tablet Every 8 hours 04/16/2024 06/19/2024 Discontinued (Therapy completed) Start: 07-14-2022 End: 07-24-2022 take 1 tablet [...] 0 Refills: 0 Ordered: 14-Oct-2021 DO Active Ketorolac (9 sources) Nonsteroidal Anti-inflammatory Drug, Cyclooxygenase Inhibitor Start: 06-05-2015 Toradol per 15 mg May, 60 mg lidocaine 0.05 mg/mg topical ointment (6 sources) Antiarrhythmic, Amide Local Anesthetic Start: 04-16-2024 End: 06-19-2024 lidocaine (Xylocaine) 5 % ointment 04/16/2024 06/19/2024 Discontinued (Therapy completed) Start: 04-16-2024 End: 05-16-2024 Lidocaine Discontinued 1 TRE LIC TOPICAL Twice daily 20 03April 16, 2024 12:00am May 16, 2024 3:45pm Start: 04-16-2024 Lidocaine Acti ve 1 APPLIC TOPICAL Twice daily 20 03April 16, 2024 12:00am mesalamine (10 sources) Aminosalicylate Start: 12-12-2023 End: 12-12-2023 take [...] DO Active oseltamivir 75 mg oral capsule (10 sources) Neuraminidase Inhibitor Start: 10-14-19 End: 11-02-19 take 1 capsule by mouth twice daily Oseltamivir (Tamiflu) 75 mg capsule Discontinued 75 MG PO Twice daily 10 October 14, 2023 1:00am November 02, 2023 3:39pm oxymetazoline hydrochloride 0.5 mg/ml nasal spray (1 source) Start: 07-14-20 2 [place], Nasal, EVERY 4 HOURS PRN, Starting on Tue07/14/22 at 1516, Until Discontinued, Nosebleed, ICU/Step Down potassium phosphate 15 mmol injection in D5W (1 source) Start: 07-16-20 End: 07-16-20 potassium phosphate 15 mmol injection in D5W predniSONE 20 mg oral tablet (10 sources) Start: 10-14-19 End: 11-02-19 24 take 20 mg by mouth twice daily Prednisone Discontinued 20 MG PO Twice daily 10 October 14, 2023 1:00am November 02, 2023 3:39pm sennosides, shelter 1.76 mg/ml oral solution (20 [...] Start: 02-25-2022 take 1 tablet by rosy four times daily sucralfate (CARAFATE) 1 GM tablet Take 1 Tablet by mouth 4 times daily. 40 Tablet 3 02/25/2022 Active valACYclovir 1000 mg oral tablet (6 sources) Herpesvirus Nucleoside Analog DNA Polymerase Inhibitor, Herpes Simplex Virus Nucleoside Analog DNA Polymerase Inhibitor, Herpes Zoster Virus Nucleoside Analog DNA Polymerase Inhibitor Start: 04-16-2024 End: 06-19-2024 valACYclovir (Valtrex) 1 g tablet Every 8 hours 04/16/2024 06/19/2024 Discontinued (Therapy completed) Start: 04-16-2024 End: 05-16-2024 take 1000 mg by mouth every eight hours Valacyclovir Discontinued 1000 MG PO Every 8 hours 11 03April 16, 2024 12:00am May 16, 2024 3:46pm Vitamin D3 TABS (2 sources) Vitamin D3 [...] Onset: 11-12-2022 Episodic Disorders of lipid metabolism (7 sources) Hyperlipidemia, unspecified; Translations: [Mixed hyperlipidemia] Onset: 11-16-2022 08-18-2023 Chronic Essential hypertension (20 sources) Benign essential hypertension; Translations: [Benign essential hypertension] Onset: 11-16-2022 11-02-2023 Chronic Fluid and electrolyte disorders (5 sources) Hypokalemia; Translations: [Hypokalemia] Onset: 08-24-2023 08-24-2023 Episodic Genitourinary symptoms and ill-defined conditions (4 sources) Urge incontinence of urine; Translations: [Urge incontinence] Onset: 02-23-2022 02-23-2022 Chronic Immunizations and screening for infectious disease (18 sources) Patient encounter status; Translations: [Encounter for [...] Onset: 05-11-2022 Chronic Miscellaneous mental health disorders (12 sources) Not getting enough sleep; Translations: [Insufficient sleep syndrome] Chronic Mood disorders (20 sources) Acute depression; Translations: [Acute depression] Onset: 11-09-2021 Resolved: 11-09-2021 11-19-2021 Chronic Mood disorders (2 sources) Mood disorders; Translations: [DEPRESSION UNSPECIFIED] Onset: 11-16-2022 Noninfectious gastroenteritis (18 sources) Microscopic colitis; Translations: [Microscopic colitis, unspecified] Onset: 08-08-2023 11-02-2023 Chronic Other aftercare (2 sources) Other prison (current) drug therapy; Translations: [OTH RETIREMENT CURRENT DRUG THERAPY] Onset: 11-16-2022 Episodic Other complications of ; puerperium affecting management of mother (5 sources) Deliveries by ; Translations: [Delivery by section] 03-13-2024 Episodic Other diseases of bladder and urethra (16 sources) Overactive bladder; Translations: [Overactive bladder] Onset: 02-23-2022 02-23-2022 Chronic Other diseases of bladder and urethra (1 source) Overactive bladder; Translations: [Overactive bladder] Onset: 02-23-2022 Chronic Other gastrointestinal disorders (6 sources) Irritable bowel syndrome with diarrhea; Translations: [Irritable bowel syndrome with diarrhea] Onset: 06-19-2024 06-11-2024 Chronic Other gastrointestinal disorders (1 source) Irritable bowel syndrome with diarrhea; Translations: [Irritable bowel syndrome] 06-11-2024 Chronic Other gastrointestinal disorders (14 sources) Diarrhea; Translations: [Diarrhea, unspecified] 11-02-2023 Episodic Other gastrointestinal disorders (7 sources) Diarrhea, unspecified; Translations: [Diarrhea] Episodic Other gastrointestinal disorders (12 sources) Fecal urgency; Translations: [Fecal urgency] Episodic Other gastrointestinal disorders (10 sources) Urgent desire for stool; Translations: [Fecal urgency] 11-02-2023 Episodic Other gastrointestinal disorders (5 sources) Abdominal distension (gaseous); Translations: [Flatulence, eructation, and gas pain] 12-12-2023 Episodic Other gastrointestinal disorders (5 sources) Constipation; Translations: [Constipation, unspecified] 03-13-2024 Episodic Other gastrointestinal disorders (6 sources) Constipation, unspecified; Translations: [Constipation, unspecified] Onset: 05-08-2024 03-13-2024 Episodic Other nervous system disorders (14 sources) Sleep-wake schedule disorder, delayed phase type; [...] Chronic Other nutritional; endocrine; and metabolic disorders (20 sources) Body mass index 30+ - obesity; [...] mass index (BMI) 30.0-30.9, adult Chronic Other nutritional; endocrine; and metabolic disorders (1 source) Body mass index (BMI) 31.0-31.9, adult; Translations: [BODY MASS INDEX BMI 31.0-31.9 ADULT] Onset: 04-19-2024 Chronic Other nutritional; endocrine; and metabolic disorders (1 source) Obesity, unspecified; Translations: [OBESITY UNSPECIFIED] Onset: 04-19-2024 Chronic Other nutritional; endocrine; and metabolic disorders (5 sources) Body mass index 25-29 - overweight; Translations: [Overweight] Onset: 04-17-2024 04-17-2024 Episodic Residual codes; unclassified (20 sources) Obstructive sleep apnea syndrome; Translations: [Obstructive sleep apnea (adult)(pediatric)] Onset: 01-15-2022 Chronic Residual codes; unclassified (20 sources) Sleep apnea; Translations: [Sleep apnea, unspecified] 11-19-2021 Chronic Residual codes; unclassified (14 sources) Insomnia; Translations: [Other insomnia] 03-13-2024 Chronic Residual codes; unclassified (6 sources) Obstructive sleep apnea (adult) (pediatric); Translations: [Obstructive sleep apnea (adult) (pediatric)] Onset: 11-09-2021 Resolved: 11-09-2021 Chronic Residual codes; unclassified (2 sources) Other insomnia; Translations: [Other insomnia] Onset: 11-09-2021 Resolved: 03-21-2022 Chronic Residual codes; unclassified (1 source) Sleep [...] use] Episodic Comment on above: Quit 2019; Substance-related disorders (1 source) Nicotine dependence, chewing tobacco, uncomplicated; Translations: [NICOTINE DEPEND CHEW TOBACCO UNCOMP] Onset: 04-19-2024 Chronic Thyroid disorders (20 sources) Hypothyroidism; Translations: [Hypothyroidism, unspecified] Onset: 11-09-2021 Resolved: 11-09-2021 Chronic Thyroid disorders (10 sources) Disorder of thyroid gland; Translations: [Disorder [...] site not specified] 11-19-2021 Episodic Viral infection (14 sources) Herpes zoster; Translations: [Zoster without complications] Onset: 04-17-2024 Resolved: 06-19-2024 04-16-2024 Episodic Past or Other Problems Problem Classification Problem Date Documented Da te Episodic/Chronic Calculus of urinary tract (20 sources) Kidney stone; Translations: [Calculus of kidney] Onset: 01-04-2022 11-19-2021 Episodic Genitourinary symptoms and ill-defined conditions (12 sources) Agustin hematuria; Translations: [Gross hematuria] Onset: 11-19-2021 11-19-2021 Episodic Noninfectious gastroenteritis (3 sources) Chronic diarrhea; Translations: [Noninfective gastroenteritis and colitis, unspecified] Onset: 08-24-2023 08-24-2023 Episodic Other gastrointestinal disorders (13 sources) Constipation alternates with diarrhea; Translations: [Other specified symptoms and signs involving the digestive system and abdomen] Onset: 01-25-2024 Resolved: 06-19-2024 12-12-2023 Episodic Other gastrointestinal disorders (13 sources) Abdominal bloating; Translations: [Abdominal distension (gaseous)] Onset: 01-25-2024 12-12-2023 Episodic Other gastrointestinal disorders (6 sources) Other specified symptoms and signs involving the digestive system and abdomen; Translations: [Other symptoms involving digestive system] Onset: 12-14-2023 12-12-2023 Episodic Other nutritional; endocrine; and metabolic disorders (3 sources) Unintentional weight loss; Translations: [Abnormal weight loss] Onset: 01-25-2024 Resolved: 06-19-2024 06-19-2024 Episodic Other screening for suspected conditions (not mental disorders or infectious disease) (11 sources) Echocardiogram abnormal; Translations: [Nonspecific (abnormal) findings on radiological and other examination of other intrathoracic organs] Onset: 02-16-2022 Episodic Other upper respiratory infections (5 sources) Acute pharyngitis, unspecified; Translations: [Acute upper respiratory infection, unspecified] Onset: 05-02-2024 Resolved: 06-19-2024 Episodic Residual codes; unclassified (4 sources) Asymptomatic [...] Test Name Value Interpretation Reference Range Facility XR KUBon 05-08-2024 XR KUB [facility] Main [address] [address] XRay Report Signed Patient: Isabelle Hewitt I MR#: [id number] : 1975 Acct:[id number] Age/Sex: 49 / F ADM Date: 05/08/24 Loc: XD Room: Type: [facility] Attending Dr: Majo Lyman 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 There is air within the stomach. There is some air within the colon. No significant colonic stool is seen. There is no dilated small bowel. No soft tissue masses are seen. There is redemonstration of a 4 mm calcification at the left upper quadrant. Nephrolithiasis is not excluded. There is slight levoscoliotic curvature. There are clips from prior cholecystectomy. XR/XR KUB IMPRESSION: NONOBSTRUCTIVE BOWEL GAS PATTERN, WITHOUT SIGNIFICANT STOOL. CONTINUED POTENTIAL LEFT NEPHROLITHIASIS. Impression dictated by: Candace Marte M.D.05/08/2024 5:27 PM Dictation Location: [place] [address] Transcribed By: [facility] 05/08/241726 Dictated By: Candace Marte MD 05/08/241725 Signed By: 05/08/241726 Normal [facility] 12-29-2023 L Specimen: [id number] Received: 12/29/23 Status: SOUT Rejosé luis Num: [id number] Spec Type: Surgical Subm Dr: Maddi Winston MD Tissues: A Breast Core CALCIFICATIONS (LT BREAST LIQ MICRO) Procedures: HE/, Gross/Micro L4 Age/ Patient Sex Location Account Attending Physician Isabelle Hewitt I 48/F LABELL [id number] Oswald Harrington SPEC NUM: [id number] RECD: 12/29/23 STATUS: MALCOLM CARDONA NUM: [id number] ANGEL LUIS: 12/29/23 DR: Maddi Winston MD ENTERED: 12/29/[address] [facility] [address]: Loc,Lab Oswald Harrington SPEC TYPE: Surgical [...] Clinical history: Stereotactic breast BX CPT Codes 78476 ---- ---- Specimen: [id number] Received: 12/29/23 Status: MALCOLM Kaela Num: [id number] Spec Type: Surgical Subm Dr: Maddi Winston MD Tissues: A Breast Core CALCIFICATIONS (LT BREAST LIQ MICRO) Procedures: , Gross/Micro L4 ---- Patient: Isabelle Hewitt I [id number] (Continued) ---- Signed (signature on file) Jef Yanes MD 01/02/24 1630 Normal [facility] XR KUBon 12-14-2023 [place] [address] XRay Report Signed Patient: Isabelle Hewitt I MR#: [id number] : 1975 Acct:[id number] Age/Sex: 48 / F ADM Date: 12/14/23 Loc: Room: Type: [facility] Attending Dr: Wiley Mcmanus MD Copies [...] Yi Dahl M.D.12/14/2023 6:27 PM Dictation Location: [place] [address] Transcribed By: [facility] 12/14/231826 Dictated By: Yi Dahl II, MD 12/14/231825 Signed By: 12/14/231826 Normal [facility] XR KUB [facility] [place] [address] XRay Report Signed Patient: Isabelle Hewitt I MR#: [id number] : 1975 Acct:[id number] Age/Sex: 48 / F ADM Date: 12/14/23 Loc: XD Room: Type: [facility] Attending Dr: Majo Lyman APRN Copies to: [...] 6:27 PM Dictation Location: RADIO-PC-13 Transcribed By: [facility] 12/14/231826 Dictated By: Yi Dahl II, MD 12/14/231825 Signed By: 12/16/23 0907 Normal [facility] - Microbiology an d Antimicrobial susceptibilityOrdered By: Louise Johnson on 10-14-2023 SARS-CoV-2 (COVID-19) RNA JOHNNIE+probe Ql (Unsp spec) [facility] CT UROGRAMon 10-01-2023 CT UROGRAM EXAMINATION: [...] Oliver Walker MD 10/01/23 Final result Normal [facility] Creatinine w/GFRon Creatinine [Mass/Vol] 0.7 mg/dL Normal 0.5-0.9 [facility] Comment on above: Performed By: #### C REG #### [facility] [address] [place] [address] University Librarian: Wiley Wheatley MD GFR/1.73 sq M.predicted among non-blacks MDRD (S/P/Bld) [Vol rate/Area] mL/min/{1.73_m2} Normal >60 [facility] Comment on above: Result Comment: These results [...] secretion. Performed By: #### C REG #### [facility] [address] [place] [address] University Librarian: Wiley Wheatley MD Cult,Urineon 09-16-2023 Cult,Urine Specimen Description .CLEAN CATCH URINE Culture NO SIGNIFICANT GROWTH Report Status FINAL 09/16/2023 Normal [facility] Comment on above: Performed By: #### U RC #### [facility] [employer] [address] [place] [address] University Librarian: Taiwo Wray MD [facility] [address] [place] [address] University Librarian: Wiley Wheatley MD HCG ( test) Sylvia d Ql (U)Ordered By: David Martinez on 08-08-2023 HCG ( test) Ql (U) Negative [facility] HCG,Urineon 08-08-2023 Beta HCG ( test) Ql (U) Negative Normal [facility] Comment on above: Result Comment: PERF ORMED BY: [address] [place] [id number] PATHOLOGIST [employer] CHRIS GUERRERO M.D. Performed By: #### U HCG #### [place] [id number] [facility] 08-08-2023 L -- ---- Specimen: [id number] Received: 08/08/23 Status: MALCOLM Bergmanjosé luis Num: [id number] Spec Type: Surgical Subm Dr: David Martinez MD Tissues: A Colon Biopsy (RNDM COL BX) Procedures: Sally BEARD/Leroy L4 ---- Age/ Patient Sex Location Account Attending Physician ---- Isabelle Hewitt I 48/F [id number] David Martinez MD ---- SPEC NUM: [id number] RECD: 08/08/23 STATUS: MALCOLM CARDONA NUM: [id number] ANGEL LUIS: 08/08/23 DR: David Martinez MD ENTERED: 08/08/[address] [facility] [address]: SPEC TYPE: Surgical DEPT: S ENTERED BY: [id number] RECV BY: [id number] ORDERED: HE/2, Gross/Micro L4 ORDERED: HE/2, Gross/Micro [...] microscopic examination confirms the diagnosis. CPT Codes 96227 ---- ---- Specimen: [id number] Received: 08/08/23 Status: MALCOLM Cardona Num: [id number] Spec Type: Surgical Subm Dr: David Martinez MD Tissues: A Colon Biopsy (RNDM COL BX) Procedures: HE/2, Gross/Micro L4 ---- Patient: Isabelle Hewitt I [id number] (Continued) ---- Signed (signature on file) Desmond Sarah MD 08/09/23 0957 Normal [facility] Amylase [Enzymatic activity/ volume] in Serum or PlasmaOrdered By: Majo Lyman on 06-30-2023 Amylase [Catalytic activity/Vol] 42 U/L Normal 29-103 [facility] Comment on above: Order Comment: Reaso n for Exam Diarrhea, unspecified type Performed By: #### C ALPROTECT, HIV SCREEN, CELIAC, ELASTASE STOOL #### [facility] , #### CRP, LIPASE, TSH3, AUREA, ESR #### [address] C reactive protein [Mass/vol ume] in Serum or PlasmaOrdered By: Majo Lyman on 06-30-2023 CRP [Mass/Vol] < 0.5 mg/dL 0.0-0.5 [facility] C-Reactive Proteinon 023 CRP [Mass/Vol] mg/L Normal 0.0-0.5 [facility] Comment on above: Order Comment: Reaso n for Exam Diarrhea, unspecified type Performed By: #### C ALPROTECT, HIV SCREEN, CELIAC, ELASTASE STOOL #### [facility] , #### CRP, LIPASE, TSH3, AUREA, ESR #### [facility] [address] Calprotectin [Mass/mass] in StoolOrdered By: Majo Lyman on 06-30-2023 Calprotectin (Stl) [Mass/Mass] 36 ug/g 0-120 [facility] Comment on above: Concentration Interp retation Follow-Up< 5 - 50 ug/g Normal None>50 -120 ug/g Borderline Re-evaluate in 4-6 weeks >120 ug/g Abnormal Repeat as clinically indicatedPerformed at: [facility] [address] [id number] Director: Andrew Cameron MD, Phone: [phone] Calprotectin, Fecalon 2022 Calprotectin, Fecal 36 Normal 0-120 [facility] Comment on above: Order Comment: Reaso n for Exam Diarrhea, unspecified type Result Comment: Conc entration Interpretation Follow-Up < 5 - 50 ug/g Normal None >50 -120 ug/g Borderline Re-evaluate in 4-6 weeks >120 ug/g Abnormal Repeat as clinically indicated Performed at: [facility] [address] [id number] University Librarian: Andrew Cameron MD, Phone: [phone] PERFORMED BY: [place] [address] PATHOLOGIST [employer] CHRIS GUERRERO M.D. Performed By: #### C ALPROTECT, HIV SCREEN, CELIAC, ELASTASE STOOL ####[facility] ,#### CRP, LIPASE, TSH3, AUREA, ESR ####[facility] Svq[address] Celiacon 06-30-2023 Deamidated Gliadin Abs, IgA 7 Normal 0-19 [facility] Comment on above: Order Comment: Reaso n for Exam Diarrhea, unspecified type Result Comment: Nega tive 0 - 19 Weak Positive 20 - 30 Moderate to Strong Positive >30 Performed By: #### C ALPROTECT, HIV SCREEN, CELIAC, ELASTASE STOOL #### [facility] , #### CRP, LIPASE, TSH3, AUREA, ESR #### [facility] [address] Deamidated Gliadin Abs, IgG 2 Normal 0-19 [facility] Comment on above: Order Comment: Reaso n for Exam Diarrhea, unspecified type Result Comment: Nega tive 0 - 19 Weak Positive 20 - 30 Moderate to Strong Positive >30 Performed By: #### C ALPROTECT, HIV SCREEN, CELIAC, ELASTASE STOOL #### [facility] , #### CRP, LIPASE, TSH3, AUREA, ESR #### [address] Endomysial Antibody IgA Negative Normal Negative [facility] Comment on above: Order Comment: Reaso n for Exam Diarrhea, unspecified type Performed By: #### C ALPROTECT, HIV SCREEN, CELIAC, ELASTASE STOOL #### [facility] , #### CRP, LIPASE, TSH3, AUREA, ESR #### [facility] [address] [place] [address] Immunoglobulin A, Qn, Serum 505 mg/dL High 87-352 [facility] Comment on above: Order Comment: Reaso n for Exam Diarrhea, unspecified type Result Comment: Perf ormed at: - [facility] [address] [id number] University Librarian: Fran Guthrie PhD, Phone: [phone] Performed By: #### C ALPROTECT, HIV SCREEN, CELIAC, ELASTASE STOOL #### [facility] , #### CRP, LIPASE, TSH3, AUREA, ESR #### [address] T-Transglutaminase (tTG) IgA <2 Normal 0-3 [facility] Comment on above: Order [...] #### [facility] , #### CRP, LIPASE, TSH3, AUREA, ESR #### [address] T-Transglutaminase (tTG) IgG <2 Normal 0-5 [facility] Comment on above: Order Comment: Reaso n for Exam Diarrhea, unspecified type Result Comment: Nega tive 0 - 5 Weak Positive 6 - 9 Positive >9 Performed By: #### C ALPROTECT, HIV SCREEN, CELIAC, ELASTASE STOOL #### [facility] , #### CRP, LIPASE, TSH3, AUREA, ESR #### [address] Elastase.pancreatic [Mass/ma ss] in StoolOrdered By: Majo Lyman on 06-30-2023 Elastase.pancreatic (Stl) [Mass/Mass] 327 >200 [facility] Comment on above: Result Units: ug Nighat st./g Severe Pancreatic Insufficiency: <100 Moderate Pancreatic Insufficiency: 100 - 200 Normal: >200Performed at: [facility] [id number] Director: Andrew aCmeron MD, Phone: [phone] Erythrocyte Sedimentation Ra zari 06-30-2023 ESR (Bld) [Velocity] 51 mm/h High 0-19 [facility] Comment on above: Order Comment: Reaso n for Exam Diarrhea, unspecified type Result Comment: PERF ORMED BY: [place] [address] PATHOLOGIST [employer] CHRIS GUERRERO M.D. Performed By: #### C ALPROTECT, HIV SCREEN, CELIAC, ELASTASE STOOL #### [facility] , #### CRP, LIPASE, TSH3, AUREA, ESR #### [address] Erythrocyte sedimentation ra te by Photometric methodOrdered By: Majo Lyman on 06-30-2023 ESR Photometric method (Bld) [Velocity] 51 mm/hr 0-19 [facility] HIV 1/O/2 Antigen/Antibodyon 06-30-2023 HIV Screen 4th Generation Non-Reactive Normal Non Reactive [facility] Comment on above: Order Comment: Reaso n for Exam Diarrhea, unspecified type Result Comment: HIV Negative HIV-1/HIV-2 antibodies and HIV-1 p24 antigen were NOT detected. There is no laboratory evidence of HIV infection. Performed at: [facility] [address] [place], [place] [id number] University Librarian: Fran Guthrie PhD, Phone: [phone] PERFORMED BY: [facility] [address] [place] [address] PATHOLOGIST [employer] CHRIS GUERRERO M.D. Performed By: #### C ALPROTECT, HIV SCREEN, CELIAC, ELASTASE STOOL ####[facility] ,#### CRP, LIPASE, TSH3, AUREA, ESR ####[facility] I[address] HIV 1 and HIV-2 antibody ass ay with HIV-1 p24 antigen detectionOrdered By: Majo Lyman on 06-30-2023 HIV 1+2 Ab+HIV1 p24 Ag IA Ql Non-Reactive Non Reactive [facility] Comment on above: HIV NegativeHIV-1/HI V-2 antibodies and HIV-1 p24 antigen were NOTdetected. There is no laboratory evidence of HIV infection.Performed at: [facility] [address] [place] [id number] Director: Fran Guthrie PhD, Phone: [phone] IgA [Mass/volume] in Serum o r PlasmaOrdered By: Majo Lyman on 06-30-2023 IgA [Mass/Vol] 505 mg/dL 87-352 [facility] Comment on above: Performed at: [facility] [address] [id number] Director: Fran Guthrie PhD, Phone: [phone] Lipase [Enzymatic activity/v olume] in Serum or PlasmaOrdered By: Majo Lyman on 06-30-2023 Lipase [Catalytic activity/Vol] 45.0 U/L Normal 11.0-82.0 [facility] Comment on above: Order Comment: Reaso n for Exam Diarrhea, unspecified type Performed By: #### C ALPROTECT, HIV SCREEN, CELIAC, ELASTASE STOOL #### [facility] , #### CRP, LIPASE, TSH3, AUREA, ESR #### [facility] [address] No Panel InformationOrdered By: Majo Lyman on 06-30-2023 Endomysial IgA Antibody Negative Negative [facility] Pancreatic Elastase, Stoolon 06-30-2023 Pancreatic Elastase, Stool 327 Normal >200 [facility] Comment on above: Order Comment: Reaso n for Exam Diarrhea, unspecified type Result Comment: Resu lt Units: ug Elast./g Severe Pancreatic Insufficiency: <100 Moderate Pancreatic Insufficiency: 100 - 200 Normal: >200 Performed at: - [facility] [address] [id number] University Librarian: Andrew Cameron MD, Phone: [phone] PERFORMED BY: [facility] [address] [place] [address] PATHOLOGIST [employer] CHRIS GUERRERO M.D. Performed By: #### C ALPROTECT, HIV SCREEN, CELIAC, ELASTASE STOOL ####[facility] ,#### CRP, LIPASE, TSH3, AUREA, ESR ####[facility] Serum gliadin peptide IgA an tibody assay (units/volume)Ordered By: Majo Lyman on 06-30-2023 Gliadin peptide IgA Qn (S) 7 units 0-19 [facility] Comment on above: Negative 0 - 19 Weak Positive 20 - 30 Moderate to Strong Positive >30 Serum gliadin peptide IgG an tibody assay (units/volume)Ordered By: Majo Lyman on 06-30-2023 Gliadin peptide IgG Qn (S) 2 units 0-19 [facility] Comment on above: Negative 0 - 19 Weak Positive 20 - 30 Moderate to Strong Positive >30 Serum tissue transglutaminas e (tTG) IgA antibody assay (units/volume)Ordered By: Majo Lyman on 06-30-2023 tTG IgA Qn (S) <2 U/mL 0-3 [facility] Comment on above: Negative 0 - 3 Weak Positive 4 - 10 Positive >10 Tissue Transglutaminase (tTG) has been identified as the endomysial antigen. Studies have demonstr- ated that endomysial IgA antibodies have over 99% specificity for gluten sensitive enteropathy. Serum tissue transglutaminas e (tTG) IgG antibody assay (units/volume)Ordered By: Majo Lyman on 06-30-2023 tTG IgG Qn (S) <2 U/mL 0-5 [facility] Comment on above: Negative 0 - 5 Weak Positive 6 - 9 Positive >9 Thyrotropin [Units/volume] i n Serum or PlasmaOrdered By: Majo Lyman on 06-30-2023 TSH Qn 0.57 m[IU]/L Normal 0.45-5.33 [facility] Comment on above: Order Comment: Reaso n for Exam Diarrhea, unspecified type Result Comment: PERF ORMED BY: [place] [address] PATHOLOGIST [employer] CHRIS GUERRERO M.D. Performed By: #### C ALPROTECT, HIV SCREEN, CELIAC, ELASTASE STOOL #### [facility] , #### CRP, LIPASE, TSH3, AUREA, ESR #### [facility] [address] COVID + FLU Quick Testingon 06-07-2023 SARS-CoV-2 (COVID-19) RNA JOHNNIE+probe Ql (Unsp spec) Negative [employer] Other COVID + FLU Quick Testing Negative [employer] Other Quick Strepon 06-07-2023 S. pyogenes Org specific cx Ql (Throat) Negative [facility] [employer] Other Quick Strep [place] [employer] Other XR ABDOMEN (KUB) (SINGLE AP VIEW)on [...] Perry Neely DO 03/12/23 Final result Normal [facility] Telephone Encounteron 2022 Clinical Research Management Associate Authentication Interface Message Text Situation: Patient called in Background: She says that she wanted to let provider know taht she would be following a different dr to his new practice for follow up treatment Assessment: NA Recommendation: Please advise and george patient if needed at Phone numbers Thank You Normal [facility] Clinical Research Management Associate Authentication Interface Message Text Called and left voicemail for patient. Post-op Home Sleep Test reviewed from [facility], and there is considerable improvement. Pre-op AHI is 102, now down to 31. Pre-op O2 Carlene of 71%, now up to 82%. However, still with considerable desat time. There are notes from Dr. Moreno evaluating for INSPIRE I presume, but nothing since November. Asked patient for call back or [employer] message with if she has been able to continue with Dr. Moreno at his new office, or if she needs referral to another [facility]. -[place] Normal [facility] MG MAMM SCREEN 3D LEEANNE CADon 01-18-2023 MG MAMM SCREEN 3D LEEANNE CAD Patient: ISABELLE HEWITT I. Exam Date: 01/18/2023 : 1975 Gender:F Ordering : BRIAN KIRBY CNP Admission #: [id number] Family : Order #: [id number] CLICK HERE TO VIEW EXAM RADIOLOGY REPORT [...] Treatments None Family Cancers None LOCATION: [facility] BREAST COMPOSITION: Heterogeneously dense,which may [...] M.D. on 01/19/2023 at 13:37 Normal [facility] Cult,Urineon 12-14-2022 Cult,Urine Specimen Description .CLEAN CATCH URINE Culture NO GROWTH Report Status FINAL 12/14/2022 Normal [facility] Comment on above: Performed By: #### U RC #### [address] [address] University Librarian: Taiwo Wray MD [facility] [address] [place] [address] [place] [address] University Librarian: Wiley Wheatley MD Urinalysis w/ Microon 2022 Bacteria TRACE Abnormal NONE [facility] Comment on above: Performed By: #### U AMIC #### [facility] [address] [place] [address] [place] [address] University Librarian: Wiley Wheatley MD Bilirubin, SemiQt,Ur Negative Normal NEG [facility] Comment on above: Performed By: #### U AMIC #### [facility] [address] [place] [address] University Librarian: Wiley Wheatley MD Blood, Urine Negative Normal NEG [facility] Comment on above: Performed By: #### U AMIC #### [facility] [address] [place], [place] [id number] University Librarian: Wiley Wheatley MD Clarity (U) Clear Normal CLEAR [facility] Comment on above: Performed By: #### U AMIC #### [facility] [address] [place], [place] [id number] University Librarian: Wiley Wheatley MD Color (U) Yellow Normal YEL [facility] Comment on above: Performed By: #### U AMIC #### [facility] [address] [place], [place] [id number] University Librarian: Wiley Wheatley MD Epithelial cells LM Ql (Urine sed) 0 TO 2 Normal 0-25 [facility] Comment on above: Performed By: #### U AMIC #### [facility] [address] [place], [place] [address] University Librarian: Wiley Wheatley MD Glucose Ql (U) Negative Normal NEG [facility] Comment on above: Performed By: #### U AMIC #### [address] [place], [place] [address] University Librarian: Wiley Wheatley MD Ketones Ql (U) Negative Normal NEG [facility] Comment on above: Performed By: #### U AMIC #### [facility] [facility] [address] [place], [place] [id number] University Librarian: Wiley Wheatley MD Leukocyte esterase Test strip Ql (U) Negative Normal NEG [facility] Comment on above: Performed By: #### U AMIC #### [facility] [address] [place] [address] University Librarian: Wiley Wheatley MD Nitrite,Ur Negative Normal NEG [facility] Comment on above: Performed By: #### U AMIC #### [facility] [address] [place] [address] University Librarian: Wiley Wheatley MD PH,Ur 6.5 Normal 5.0-9.0 [facility] Comment on above: Performed By: #### U AMIC #### [facility] [address] [place] [address] University Librarian: Wiley Wheatley MD Protein Ql (U) Negative Normal NEG [facility] Comment on above: Performed By: #### U AMIC #### [facility] [address] [place] [address] University Librarian: Wiley Wheatley MD Spec. [place],Ur <1.005 Low 1.010-1.020 [facility] Comment on above: Performed By: #### U AMIC #### [facility] [address] [place], [facility] University Librarian: Wiley Wheatley MD Urine RBC's None Normal 0-2 [facility] Comment on above: Performed By: #### U AMIC #### [facility] [address] [place], [place] [address] University Librarian: Wiley Wheatley MD Urine WBC's None Normal 0-5 [facility] Comment on above: Performed By: #### U AMIC #### [facility] [address] [place], [facility] University Librarian: Wiley Wheatley MD Urobilinogen,Ur Normal Normal NORM [facility] Comment on above: Performed By: #### U AMIC #### [facility] [address] [place], [place] [id number] University Librarian: Wiley Wheatley MD Urinalysis with Microscopico n 12-13-2022 Bacteria, UA TRACE Abnormal None [facility] Bilirubin Urine Negative NEGATIVE [facility] [employer] Color, UA Yellow Yellow [facility] [employer] Epithelial Cells UA 0 TO 2 [facility] Glucose Auto test strip (U) [Mass/Vol] Negative NEGATIVE [facility] Interpretation and review of laboratory results Abnormal [facility] Ketones (U) [Mass/Vol] Negative NEGATIVE [facility] Leukocyte esterase Auto test strip Ql (U) Negative NEGATIVE [facility] Nitrite Auto test strip Ql (U) Negative NEGATIVE [facility] Protein (U) [Mass/Vol] 6.5 mg/dL 5.0 - 9.0 [facility] Protein (U) [Mass/Vol] Negative NEGATIVE [facility] RBC clumps Auto (Urine sed) [#/Area] None [facility] Specific [place], UA Low 1.010 - 1.020 [facility] Turbidity UA Clear Clear [facility] Urine Hgb Negative NEGATIVE [facility] Urob[facility], Urine Normal Normal [facility] WBC, UA None [facility] Covid-19 PCR ([facility])on SARS-CoV-2 (COVID-19) RNA JOHNNIE+probe Ql (Unsp spec) Not detected Normal NOT DETECTED [facility] Comment on above: Result Comment: This test is not yet approved or cleared by the [place] FDA. When there are no FDA-approved or cleared tests available, and other criteria are met, FDA can make tests available under an emergency access mechanism called an Emergency Use Authorization (EUA). The EUA for this test is supported by the Fight Manager of Health and Human Service's (HHS's) declaration [...] consistent with SARS-CoV-2. Performed By: #### [facility] #### [facility] [address] [place] [address] Dr. Stephanie Gibbs INFLUENZA A AND B AGon 11-26 INFLUANEGH SEE BELOW Normal [facility] Comment on above: Result Comment: Nega tive for Flu A protein angiten. Infection due to Flu A cannot be ruled out. Flu A angiten in the sample may be below the detection limit of the test. Performed By: #### I NFLUAB #### [facility] [address] [place] [address] Dr. Stephanie Gibbs INFLUBNEGH SEE BELOW Normal [facility] Comment on above: Result Comment: Nega tive for Flu B protein antigen. Infection due to Flu B cannot be ruled out. Flu B antigen in the sample may be below the detection limit of the test. Performed By: #### I NFLUAB #### [facility] [address] [place] [address] Dr. Stephanie Gibbs INFLUENZA A AG Negative Normal NEGATIVE SEE COMMENT [facility] Comment on above: Performed By: #### I NFLUAB #### [facility] [address] [place] [address] Dr. Stephanie Gibbs INFLUENZA B AG Negative Normal NEGATIVE SEE COMMENT [facility] Comment on above: Performed By: #### I NFLUAB #### [facility] [address] [place] [address] Dr. Stephanie Gibbs SYMPTOMATIC COVID-19 ANTIGEN on 11-26-2022 EUA Statement SEE BELOW Normal [facility] Comment on above: Result Comment: This test [...] sooner. Performed By: #### C BC #### [facility] [address] [place] [address] Dr. Stephanie Gibbs SARS-CoV-2 (COVID-19) RNA JOHNNIE+probe Ql (Unsp spec) Negative Normal NEGATIVE [facility] Comment on above: Performed By: #### C BC #### [facility] [address] [place] [address] Dr. Stephanie Gibbs Telephone Encounteron 2022 Clinical Research Management Associate Authentication Interface Message Text Requesting sleep study results and next steps. Please advise. Normal [facility] CBC AUTO DIFFon 11-12-2022 BASO # 0.1 103/ul Normal 0.0-0.1 [facility] Comment on above: Performed By: #### C BC #### [facility] [address] [place] [address] Dr. Stephanie Gibbs Basophils/100 WBC (Bld) 0.9 % Normal 0.2-2.0 [facility] Comment on above: Performed By: #### C BC #### [facility] [address] [place] [address] Dr. Stephanie Gibbs EO # 0.3 103/ul Normal 0.0-0.7 [facility] Comment on above: Performed By: #### C BC #### [facility] [address] [place] [address] Dr. Stephanie Gibbs Eosinophils/100 WBC (Bld) 4.7 % Normal 0.9-7.0 [facility] Comment on above: Performed By: #### C BC #### [facility] [address] [place] [address] Dr. Stephanie Gibbs Erythrocyte distribution width (RBC) [Ratio] 13.4 % Normal 11.0-15.0 [facility] Comment on above: Performed By: #### C BC #### [facility] [address] [place] [address] Dr. Stephanie Gibbs Hematocrit (Bld) [Volume fraction] 43.0 % Normal 36.0-48.0 [facility] Comment on above: Performed By: #### C BC #### [facility] [address] [place] [address] Dr. Stephanie Gibbs Hemoglobin (Bld) [Mass/Vol] 13.9 g/dL Normal 12.0-16.0 [facility] Comment on above: Performed By: #### C BC #### [facility] [address] [place] [address] Dr. Stephanie Gibbs IG # 0.01 10e3/ul Normal 0.00-0.03 [facility] Comment on above: Performed By: #### C BC #### [facility] [address] [place] [address] Dr. Stephanie Gibbs IG % 0.2 % Normal 0.0-0.5 [facility] Comment on above: Performed By: #### C BC #### [facility] [address] [place] [address] Dr. Stephanie Gibbs LYMPH # 2.3 103/ul Normal 1.2-3.8 [facility] Comment on above: Performed By: #### C BC #### [facility] [address] [place] [address] Dr. Stephanie Gibbs Lymphocytes/100 WBC (Bld) 36.6 % Normal 20.5-60.0 [facility] Comment on above: Performed By: #### C BC #### [facility] [address] [place] [address] Dr. Stephanie Gibbs MANUAL DIFF REQ NO Normal [facility] Comment on above: Performed By: #### C BC #### [facility] [address] [place] [address] Dr. Stephanie Gibbs MCH (RBC) [Entitic mass] 29.7 pg Normal 26.7-34.0 [facility] Comment on above: Performed By: #### C BC #### [facility] [address] [place] [address] Dr. Stephanie Gibbs MCHC (RBC) [Mass/Vol] 32.3 g/dL Normal 29.9-35.2 [facility] Comment on above: Performed By: #### C BC #### [facility] [address] [place] [address] Dr. Stephanie Gibbs MCV (RBC) [Entitic vol] 91.9 fL Normal 81.0-99.0 [facility] Comment on above: Performed By: #### C BC #### [facility] [address] [place] [address] Dr. Stephanie Gibbs MONO # 0.5 103/ul Normal 0.3-0.8 [facility] Comment on above: Performed By: #### C BC #### [facility] [address] [place] [address] Dr. Stephanie Gibbs Monocytes/100 WBC (Bld) 8.3 % Normal 1.7-12.0 [facility] Comment on above: Performed By: #### C BC #### [facility] [address] [place] [address] Dr. Stephanie Gibbs NEUT # 3.2 103/ul Normal 1.4-6.5 [facility] Comment on above: Performed By: #### C BC #### [facility] [address] [place] [address] Dr. Stephanie Gibbs Neutrophils/100 WBC (Bld) 49.3 % Normal 43.0-75.0 [facility] Comment on above: Performed By: #### C BC #### [facility] [address] [place] [address] Dr. Stephanie Gibbs Platelet mean volume (Bld) [Entitic vol] 9.6 fL Normal 9.5-13.5 [facility] Comment on above: Performed By: #### C BC #### [facility] [address] [place] [address] Dr. Stephanie Gibbs PLT 250 103/ul Normal 150-450 [facility] Comment on above: Performed By: #### C BC #### [facility] [address] [place] [address] Dr. Stephanie Gibbs RBC 4.68 106/ul Normal 4.20-5.40 [facility] Comment on above: Performed By: #### C BC #### [facility] [address] [place] [address] Dr. Stephanie Gibbs WBC 6.4 103/ul Normal 4.0-11.0 [facility] Comment on above: Performed By: #### C BC #### [facility] [address] [place] [address] Dr. Stephanie Gibbs POINT OF CARE GLUCOSEon 10-21 Glucose [Mass/Vol] 97 mg/dL Normal 74-106 [facility] Comment on above: Performed By: #### P OCGLUC #### [facility] [address] [place] [address] Dr. Stephanie Gibbs PREG QUANT HCGon 11-12-2022 HCG QUANT 3 mIU/mL Normal [facility] Comment on above: Performed By: #### C BC #### [facility] [address] [place] [address] Dr. Stephanie Gibbs HCG RANGE SEE BELOW Normal [facility] Comment on above: Result Comment: 5-50 0.2-1 WEEK 50-500 1-2 WEEKS 100-5,000 2-3 WEEKS 500-10,000 3-4 WEEKS 1,000-50,000 4-5 WEEKS 10,000-100,000 5-6 WEEKS 15,000-200,000 6-8 WEEKS 10,000-100,000 2-3 MONTHS Performed By: #### C BC #### [facility] [address] [place] [address] Dr. Stephanie Gibbs Telephone Encounteron 2022 Clinical Research Management Associate Authentication Interface Message Text Opened in error Normal [facility] Telephone Encounteron 2022 Clinical Research Management Associate Authentication Interface Message Text Called patient and left voicemail. Advised that order for post-op PSG was faxed to [facility]. Left number to call to schedule study at her convenience ([phone]) Normal [facility] Progress Noteson 10-19-2022 Clinical Research Management Associate Authentication Interface Message Text CC: sleep disordered [...] residual base of tongue obstruction. Normal [facility] Telephone Encounteron 2022 Clinical Research Management Associate Authentication Interface Message Text PT calling back to check status of her [place] paperwork from [employer]. I verified the correct fax # PT was using ) I called over to PS dept , spoke to Sfeerino and he stated to have the PT to send it to the e-mail address [email or web address] PT will put ATTN: to Dr. Rodrigues. PT asks to have the paperwork filled out [place]OL[place] as it it due soon ( PT didn't state a sate just that it was due) Please call PT once received Normal [facility] Telephone Encounteron 2022 Clinical Research Management Associate Authentication Interface Message Text Patient calling in to see if her FMLA papers were received. Paperwork not scanned into the chart at this time. Please call the patient with confirmation of receipt of the FMLA papers at [phone]. Thank you! Normal [facility] Progress Noteson 09-08-2022 Clinical Research Management Associate Authentication Interface Message Text Teaching Physician Note: [...] physician. Rikki Rodrigues DMD, MD Normal [facility] Telephone Encounteron 2022 Clinical Research Management Associate Authentication Interface Message Text PT calling in stating she will be sending new FMLA forms via fax tomorrow due to the library being closed today. PT states Dr. Rodrigues has to fill that paperwork out just like he did for [employer]. PT states the company she works for switched [employer]. Please call PT if any questions. PT was just seen on 08/30/22 Normal [facility] FREE T4on 09-02-2022 Free T4 [Mass/Vol] 1.01 ng/dL Normal 0.76-1.46 [facility] Comment on above: Performed By: #### F T4 #### [facility] [address], [place] [address] Dr. Stephanie Gibbs TSHon 09-02-2022 TSH 0.745 uIU/mL Normal 0.358-3.740 [facility] Comment on above: Performed By: #### T SH #### [facility] [address], [place] [address] Dr. Stephanie Gibbs Telephone Encounteron 2022 Clinical Research Management Associate Authentication Interface Message Text PT calling in stating she had new FMLA forms to be faxed to Dr. Rodrigues. PT stated her job was going through [employer] and now is going through [employer]. saw PT for surgery on 07/14. PT had a televisit follow up on 07/23, but has cancelled every other follow up on 08/02 , 08/13 AND 08/30. PT stated Dr. Rodrigues had her off work since 07/14/22-08/30/2022. Please see labor mediator- dates are different Please reach out to PT to discuss and when forms are ready to be filled out [phone] Normal [facility] Patient Instructionson 08-30 Clinical Research Management Associate Authentication Interface Message Text With clean hands massage gums under your upper lip daily at night time No food restrictions Follow up with your dentist We will contact your Sleep Center in [place] to have a Sleep Study completed in 1.5 months. Normal [facility] Progress Noteson 08-30-2022 Clinical Research Management Associate Authentication Interface Message Text [facility] [...] -Complete sleep study with Dr. Mcmanus in [place], [place] in 1.5 months -Follow up with patient's general dentist, Sinan Jones DDS for denture adjustment Follow-Up: After new sleep study Follow up sooner with new or worsening symptoms. Sinan Jones DDS [facility] [place] [address] Wiley Mcmanus MD [facility] [address] [place], [place] [id number] Seferino Vaz DMD [facility] Resident Normal [facility] Urinalysis with Microscopico n 08-12-2022 Bacteria, UA 2+ Abnormal None [facility] Bilirubin Urine Negative NEGATIVE [facility] Color, UA Yellow Yellow [facility] Epithelial Cells UA 0 TO 2 [facility] Glucose, Ur Negative NEGATIVE [facility] Interpretation and review of laboratory results Abnormal [facility] Ketones Ql (U) Negative NEGATIVE [facility] Leukocyte esterase Test strip Ql (U) SMALL Abnormal NEGATIVE [facility] Nitrite, Urine Negative NEGATIVE [facility] pH, UA 6.5 5.0 - 9.0 [facility] Protein, UA 1+ Abnormal NEGATIVE [facility] RBC, UA 0 TO 2 [facility] Specific [place], UA High 1.010 - 1.020 [facility] Turbidity UA Cloudy Abnormal Clear [facility] Urine Hgb 1+ Abnormal NEGATIVE [facility] Urobilinogen, Urine Normal Normal [facility] WBC, UA 50 TO 100 [facility] Telephone Encounteron 2021 Clinical Research Management Associate Authentication Interface Message Text Called the patient twice this week to remind her regarding the follow up this Tuesday (08/13/22) and to offer to follow up sooner if she prefers. Patient did not answer. Message was left. Also attempted to call the alternative work number listed. Was unable to reach the patient at this number. Jerel Villegas DDS, FS- PGY4 [phone] Normal [facility] Telephone Encounteron 2021 Clinical Research Management Associate Authentication Interface Message Text Called pt. No answer. LVM with callback instructions. Per Dr. Rodrigues, we will not write any work excuse notes or prescribe any pain meds until pt is seen in person for follow up. Oliver Rogers, DMD Normal [facility] [employer] Authentication Interface Message Text Pt called because [...] options if that is the case. Email: [email or web address] Contact pt @[phone] for questions/concerns Normal [facility] Telephone Encounteron 2021 Clinical Research Management Associate Authentication Interface Message Text Patient called in [...] Please call the patient to advise at [phone]. Thank you! Normal [facility] Telephone Encounteron 2021 Clinical Research Management Associate Authentication Interface Message Text Spoke with patient and instructed her to come in earlier Tuesday afternoon, preferably between 1:00 and 2:00 pm. Also reminded her to bring dentures with her as we would like to assess her occlusion with dentures in place. Patient voiced understanding and agreed to arrive early for her appointment on Tuesday. Mikal Rodgers DMD director of counterintelligence, PGY-3 Team Pager: [phone] Normal [facility] Telephone Encounteron 2021 Clinical Research Management Associate Authentication Interface Message Text Patient called stating she needs a back to work slip. Requested a call back [phone]. Thank you! Normal [facility] Progress Noteson 07-23-2022 Clinical Research Management Associate Authentication Interface Message Text [facility] [...] new or worsening symptoms. Mikal Rodgers DMD director of counterintelligence, PGY-3 Team Pager: [phone] Normal [facility] Progress Noteson 07-19-2022 Clinical Research Management Associate Authentication Interface Message Text Initial pre-surgical workup photos: Normal [facility] BASIC METABOLIC PANELon 11-2 Anion gap [Moles/Vol] 13 mmol/L Normal 10-20 [facility] Comment on above: Performed By: #### MILO Mattson CH8 #### [facility] [address] [place], [place], Calcium [Mass/Vol] 7.9 mg/dL Low 8.4-10.4 [facility] Comment on above: Performed By: #### MILO Mattson, CH8 #### [facility] [address] [place], [place], Chloride [Moles/Vol] 105 mmol/L Normal 97-111 [facility] Comment on above: Performed By: #### MILO Mattson CH8 #### [facility] [address] [place], [place], CO2 [Moles/Vol] 30 mmol/L Normal 21-30 [facility] Comment on above: Performed By: #### MILO Mattson CH8 #### [facility] [address] [place], [place], Creatinine [Mass/Vol] 0.84 mg/dL Normal 0.50-1.10 [facility] Comment on above: Performed By: #### MILO Mattson CH8 #### [facility] [address] [place], [place], ESTIMATED GFR (CKD-EPI) 86 mL/min/1.73sqm Normal >=60 [facility] Comment on above: Result Comment: 2020 [...] Inclusion of Race in Diagnosing Kidney Disease. [place] Journal of Kidney Diseases 2021;79(2):268-88.e1. 2. N Engl J Med 2020 Vol. 385 Issue 19 Pages [phone] Performed By: #### MILO Mattson CH8 #### [facility] [address] [place], [place], Glucose [Mass/Vol] 85 mg/dL Normal 68-110 [facility] Comment on above: Performed By: #### MILO Mattson CH8 #### [facility] [address] [place], [place], Potassium [Moles/Vol] 3.7 mmol/L Normal 3.3-5.3 [facility] Comment on above: Performed By: #### MILO Mattson CH8 #### [facility] [address] [place], [place], Sodium [Moles/Vol] 144 mmol/L Normal 135-148 [facility] Comment on above: Performed By: #### MILO Mattson CH8 #### [facility] [address] [place] [address], Urea nitrogen [Mass/Vol] 10 mg/dL Normal 8-22 [facility] Comment on above: Performed By: #### MILO Mattson CH8 #### [facility] [address] [place] [address], Basic metabolic 2000 panelon 07-17-2022 Anion gap [Moles/Vol] 13 mmol/L 10 - 20 [facility] Calcium [Mass/Vol] 7.9 mg/dL Low 8.4 - 10. 4 mg/dL [facility] Chloride [Moles/Vol] 105 mmol/L 97 - 11 1 mmol/L [facility] CO2 [Moles/Vol] 30 mmol/L 21 - 30 mmol/L [facility] Creatinine [Mass/Vol] 0.84 mg/dL 0.50 - 1.10 mg/dL [facility] GFR/1.73 sq M.predicted MDRD (S/P/Bld) [Vol rate/Area] 86 mL/min/{1.73_m2} - [facility] Comment on above: 2020 CKD EPI [...] Inclusion of Race in Diagnosing Kidney Disease. [place] Journal of Kidney Diseases 2021;79(2):268-88.e1. 2. N Engl J Med 1 Vol. 385 Issue 19 Pages [phone] Glucose [Mass/Vol] 85 mg/dL 68 - 110 [...] (RBC) [Ratio] 13.7 % Normal 11.5-14.5 [facility] Comment on above: Performed By: #### M MILO Alan, ARCHIE #### [facility] [address] [place] [address], [phone] Hematocrit (Bld) [Volume fraction] 32.8 % Low 36.0-46.0 [facility] Comment on above: Performed By: #### MILO Mattson CH8 #### [facility] [address] [place] [address], Hemoglobin (Bld) [Mass/Vol] 10.8 g/dL Low 12.0-15.0 [facility] Comment on above: Performed By: #### MILO Mattson CH8 #### [facility] [address] [place] [address], MCH (RBC) [Entitic mass] 32.5 pg Normal 26.0-34.0 [facility] Comment on above: Performed By: #### MILO Mattson CH8 #### [facility] [address] [place] [address], MCHC (RBC) [Mass/Vol] 32.9 g/dL Normal 32.0-35.[address] [facility] Comment on above: Performed By: ###MILO Sierra CH8 #### [facility] [address] [place] [address], MCV (RBC) [Entitic vol] 99 fL Normal 80-100 [facility] Comment on above: Performed By: #### MILO Mattson CH8 #### [facility] [address] [place], [place] [address], Platelet mean volume (Bld) [Entitic vol] 8.0 fL Normal 7.5-11.[address] [facility] Comment on above: Performed By: #### MILO Mattson CH8 #### [facility]ORATORY [address] [place] [address], Platelets (Bld) [#/Vol] 214 10*3/uL Normal 150-[address] [facility] Comment on above: Performed By: #### MILO Mattson CH8 #### S PATHOLOGY LABORATORY [address] [place] [address], RBC (Bld) [#/Vol] 3.33 10*6/uL Low 4.00-5.20 [facility] Comment on above: Performed By: #### M MILO Alan CH8 #### [facility] [address] [place], [place], WBC (Bld) [#/Vol] 8.7 10*3/uL Normal 4.5-11.5 [facility] Comment on above: Performed By: #### MILO Mattson CH8 #### [facility] [address] [place], [place], Care Plan Noteon 07-17-2022 Clinical Research Management Associate Authentication Interface Message Text Problem: Discharge Planning: [...] discharged home with family member. Normal [facility] Clinical Research Management Associate Authentication Interface Message Text Problem: Routine Care: [...] will be met Outcome: Progressing Normal [facility] GLUCOSE, FINGERSTICK-IN OFFI CEon 07-17-2022 Glucose [Mass/Vol] 81 mg/dL Normal 68-110 [facility] Comment on above: Performed By: #### 8 2948 ####NURSING GLUCOSE [id number] [place], [address] Glucose [Mass/Vol] 81 mg/dL 68 - 110 mg/dL [facility] Interpretation and review of laboratory results Normal [facility] Glucose [Mass/Vol] 93 mg/dL Normal 68-110 [facility] Comment on above: Performed By: #### MILO Mattson CH8 #### S PATHOLOGY LABORATORY [address] [place], [place], Glucose [Mass/Vol] 93 mg/dL 68 - 110 mg/dL [facility] Interpretation and review of laboratory results Normal [facility] MAGNESIUMon 07-17-2022 Magnesium [Mass/Vol] 1.8 mg/dL Normal 1.6-2.8 [facility] Comment on above: Performed By: #### MILO Mattson CH8 #### S PATHOLOGY LABORATORY [address] [place], [place], Interpretation and review of laboratory results Normal [facility] Magnesium [Mass/Vol] 1.8 mg/dL 1.6 - 2 .8 mg/dL [facility] No Panel Informationon 07-17 Interpretation and review of laboratory results Abnormal [facility] PHOSPHORUSon 07-17-2022 Phosphate [Mass/Vol] 2.4 mg/dL Low 2.5-4.8 [facility] Comment on above: Performed By: #### MILO Mattson CH8 #### [facility] [address] [place], [place], Phosphate [Mass/Vol] 2.4 mg/dL Low 2.5 - 4 .8 mg/dL [facility] Progress Noteson 07-17-2022 Clinical Research Management Associate Authentication Interface Message Text Patient refused: Ditropan, and Hs Fingerstick. Normal [facility] BASIC METABOLIC PANELon 06-23 Anion gap [Moles/Vol] 14 mmol/L Normal 10-20 [facility] Comment on above: Performed By: #### MILO Mattson CH8 #### S PATHOLOGY LABORATORY [address] [place], [place], Calcium [Mass/Vol] 8.0 mg/dL Low 8.4-10.4 [facility] Comment on above: Performed By: #### MILO Mattson CH8 #### [facility] [address] [place] [address], Chloride [Moles/Vol] 103 mmol/L Normal 97-111 [facility] Comment on above: Performed By: #### MILO Mattson CH8 #### [facility] [address] [place] [address], CO2 [Moles/Vol] 31 mmol/L High 21-30 [facility] Comment on above: Performed By: #### MILO Mattson CH8 #### [facility] [address] [place] [address], Creatinine [Mass/Vol] 0.79 mg/dL Normal 0.50-1.10 [facility] Comment on above: Performed By: #### MILO Mattson CH8 #### S PATHOLOGY LABORATORY [address] [place] [address], ESTIMATED GFR (CKD-EPI) 93 mL/min/1.73sqm Normal >=60 [facility] Comment on above: Result Comment: 2020 [...] Inclusion of Race in Diagnosing Kidney Disease. [place] Journal of Kidney Diseases 202;79(2):268-88.e1. 2. N Engl J Med 2020 Vol. 385 Issue 19 Pages 4736-1239 Performed By: #### MILO Mattson CH8 #### [facility] [address] [place], [place], Glucose [Mass/Vol] 96 mg/dL Normal 68-110 [facility] Comment on above: Performed By: #### MILO Mattson CH8 #### S PATHOLOGY LABORATORY [address] [place] [address], Potassium [Moles/Vol] 4.0 mmol/L Normal 3.3-5.3 [facility] Comment on above: Performed By: #### MILO Mattson CH8 #### [facility] [address] [place], [place], Sodium [Moles/Vol] 144 mmol/L Normal 135-148 [facility] Comment on above: Performed By: #### MILO Mattson CH8 #### [facility] [address] [place], [place], Urea nitrogen [Mass/Vol] 16 mg/dL Normal 8-22 [facility] Comment on above: Performed By: #### MILO Mattson CH8 #### S PATHOLOGY LABORATORY [address] [place], [place], Basic metabolic 2000 panelon 07-16-2022 Anion gap [Moles/Vol] 14 mmol/L 10 - 20 [facility] [Mass/Vol] 8.0 mg/dL Low 8.4 - 10. 4 mg/dL [facility] Chloride [Moles/Vol] 103 mmol/L 97 - 11 1 mmol/L [facility] CO2 [Moles/Vol] 31 mmol/L High 21 - 30 mmol/L [facility] Creatinine [Mass/Vol] 0.79 mg/dL 0.50 - 1.10 mg/dL [facility] GFR/1.73 sq M.predicted MDRD (S/P/Bld) [Vol rate/Area] 93 mL/min/{1.73_m2} [facility] Comment on above: 2020 CKD EPI [...] Inclusion of Race in Diagnosing Kidney Disease. [place] Journal of Kidney Diseases 202;79(2):268-88.e1. 2. N Engl J Med 1 Vol. 385 Issue 19 Pages 9427-4240 Glucose [Mass/Vol] 96 mg/dL 68 - 110 mg/dL [facility] Potassium [Moles/Vol] 4.0 mmol/L 3.3 - 5.3 mmol/L [facility] Sodium [Moles/Vol] 144 mmol/L 135 - 148 mmol/L [facility] Urea nitrogen [Mass/Vol] 16 mg/dL 8 - 22 mg/dL [facility] CBC panel Auto (Bld)on 07-16 Erythrocyte distribution width (RBC) [Ratio] 13.5 % 11.5 - 14.5 % [facility] Hematocrit (Bld) [Volume fraction] 32.8 % Low 36.0 - 46.0 % [facility] Hemoglobin (Bld) [Mass/Vol] 10.9 g/dL Low 12.0 - 15.0 g/dL [facility] Interpretation and review of laboratory results Abnormal [facility] MCH (RBC) [Entitic mass] 32.7 pg 26.0 - 34.0 pg [facility] MCHC (RBC) [Mass/Vol] 33.2 g/dL 32.0 - 35.9 g/dL [facility] MCV (RBC) [Entitic vol] 98 fL 80 - 100 fL [facility] Platelet mean volume (Bld) [Entitic vol] 9.0 fL 7.5 - 11.2 fL [facility] Platelets (Bld) [#/Vol] 217 10*3/uL 150 - 400 K/uL [facility] RBC (Bld) [#/Vol] 3.33 10*6/uL Low [facility] WBC (Bld) [#/Vol] 16.3 10*3/uL High 4.5 - 11.5 K/uL [facility] COMPLETE BLOOD COUNTon 07-16 Erythrocyte distribution width (RBC) [Ratio] 13.5 % Normal 11.5-14.5 [facility] Comment on above: Performed By: #### C BC ####S PATHOLOGY [id number] [place], [address] Hematocrit (Bld) [Volume fraction] 32.8 % Low 36.0-46.0 [facility] Comment on above: Performed By: #### C BC ####[facility] PATH[facility] [id number] [place], [place], Hemoglobin (Bld) [Mass/Vol] 10.9 g/dL Low 12.0-15.[address] [facility] Comment on above: Performed By: #### C BC ####[facility] PATHOLOGY [id number] [place], [place], MCH (RBC) [Entitic mass] 32.7 pg Normal 26.0-34.0 [facility] Comment on above: Performed By: #### C BC ####[facility] PATHOLOGY [id number] [place] [address], MCHC (RBC) [Mass/Vol] 33.2 g/dL Normal 32.0-35.9 [facility] Comment on above: Performed By: #### C BC ####[facility] PATHOLOGY [id number] [place] [address], MCV (RBC) [Entitic vol] 98 fL Normal 80-100 T [facility] Comment on above: Performed By: #### C BC ####[facility] PATHOLOGY [id number] [place] [address], Platelet mean volume (Bld) [Entitic vol] 9.0 fL Normal 7.5-11.[address] [facility] Comment on above: Performed By: #### C BC ####[facility] PATHOLOGY [id number] [place] [address], Platelets (Bld) [#/Vol] 217 10*3/uL Normal 150-400 [facility] Comment on above: Performed By: #### C BC ####[facility] PATHOLOGY [id number] [place] [address], RBC (Bld) [#/Vol] 3.33 10*6/uL Low 4.00-5.[address] [facility] Comment on above: Performed By: #### C BC ####[facility] PATHOLOGY [id number] [place] [address], WBC (Bld) [#/Vol] 16.3 10*3/uL High 4.5-11.[address] [facility] Comment on above: Performed By: #### C BC ####[facility] PATHOLOGY [id number] [place], [place], GLUCOSE, FINGERSTICK-IN OFFI CEon 07-16-2022 Glucose [Mass/Vol] 89 mg/dL Normal 68-110 [facility] Comment on above: Performed By: #### MILO Mattson CH8 #### [facility] [address] [place], [place], Glucose [Mass/Vol] 89 mg/dL 68 - 110 mg/dL [facility] Interpretation and review of laboratory results Normal [facility] Glucose [Mass/Vol] 160 mg/dL High 68-110 [facility] Comment on above: Result Comment: Ricky lund RN, APN, MD Performed By: #### MILO Mattson CH8 #### [facility] [address] [place], [place], Glucose [Mass/Vol] 160 mg/dL High 68 - 110 mg/dL [facility] Comment on above: Notified CALISTA MORSE MD Interpretation and review of laboratory results Abnormal [facility] Glucose [Mass/Vol] 136 mg/dL High 68-110 [facility] Comment on above: Result Comment: Ricky lund RN, APN, MD Performed By: #### MILO Mattson CH8 #### [facility] [address] [place], [place], Glucose [Mass/Vol] 136 mg/dL High 68 - 110 mg/dL [facility] Comment on above: Notified CALISTA MORSE MD Interpretation and review of laboratory results Abnormal [facility] MAGNESIUMon 07-16-2022 Magnesium [Mass/Vol] 2.0 mg/dL Normal 1.6-2.8 [facility] Comment on above: Performed By: #### MILO Mattson CH8 #### [facility] [address] [place], [place], Interpretation and review of laboratory results Normal [facility] Magnesium [Mass/Vol] 2.0 mg/dL 1.6 - 2 .8 mg/dL [facility] No Panel Informationon 07-16 Interpretation and review of laboratory results Abnormal [facility] PHOSPHORUS[facility] 07-16-2022 Phosphate [Mass/Vol] 2.1 mg/dL Low 2.5-4.8 [facility] Comment on above: Performed By: #### M MILO Alan, ARCHIE #### [facility] [address] [place] [address], [id number] Phosphate [Mass/Vol] 2.1 mg/dL Low 2.5 - 4 .8 mg/dL [facility] Noteson 07-16-2022 Clinical Research Management Associate Authentication Interface Message Text -------- GENERAL INFORMATION [...] oxymetazoline (AFRIN) 0.05 % nasal solution, 2 [place], Nasal, Q4H PRN, Oliver Rogers DMD sodium chloride (OCEAN) 0.65 % nasal spray, 1 [place], Nasal, Q1H PRN, Oliver Rogers DMD naloxone [...] 2. (more content not included)... Normal [facility] Clinical Research Management Associate Authentication Interface Message Text Attestation signed by [...] MD SURGERY DAILY PROGRESS NOTE Isabelle Hewitt [phone] Isabelle Hewitt is a 47yo F with [...] bisacodyl 10 mg Daily PRN oxymetazoline 2 [place] Q4H PRN sodium chloride 1 [place] Q1H PRN naloxone 0.4 mg PRN IV [...] hydration. Pt okay to be transferred to [facility]. Neuro: - Acetaminophen 650 mg Q4H scheduled - Ibuprofen 600 mg Q6H PRN mild pain - Oxycodone 5/10 mg Q4H PRN moderate/severe pain OMFS: - Peridex mouth rinses BID Cardiac: - Lipitor 20 mg daily Resp: - O2 as needed to maintain sats >92% - Humidified face tent - [place] nasal spray Q1H PRN - Afrin nasal [...] daily Dispo: - Okay to transfer to [facility] Oliver Rogers DMD director of counterintelligence, PGY-1 Team Pager: [phone] Normal [facility] BASIC METABOLIC PANELon 11-2 Anion gap [Moles/Vol] 15 mmol/L Normal 10-20 [facility] Comment on above: Performed By: ###MILO Sierra CH8 #### [facility] [address] [place], [place], Calcium [Mass/Vol] 8.0 mg/dL Low 8.4-10.4 [facility] Comment on above: Performed By: ###MILO Sierra CH8 #### [facility] [address] [place], [address] Chloride [Moles/Vol] 102 mmol/L Normal 97-111 [facility] Comment on above: Performed By: ###MILO Sierra CH8 #### [facility] [address] [place], [place], CO2 [Moles/Vol] 28 mmol/L Normal 21-30 [facility] Comment on above: Performed By: #### MILO Mattson CH8 #### [facility] [address] [place], [place], Creatinine [Mass/Vol] 0.91 mg/dL Normal 0.50-1.10 [facility] Comment on above: Performed By: #### MILO Mattson CH8 #### [facility] [address] [place], [place], ESTIMATED GFR (CKD-EPI) 78 mL/min/1.73sqm Normal >=60 [facility] Comment on above: Result Comment: 2020 [...] Inclusion of Race in Diagnosing Kidney Disease. [place] Journal of Kidney Diseases 2021;79(2):268-88.e1. 2. N Engl J Med 2020 Vol. 385 Issue 19 Pages 2311-0601 Performed By: #### MILO Mattson CH8 #### [facility] [address] [place], [place], Glucose [Mass/Vol] 147 mg/dL High 68-110 [facility] Comment on above: Performed By: #### MILO Mattson CH8 #### [facility] [address] [place], [place], Potassium [Moles/Vol] 4.3 mmol/L Normal 3.3-5.3 [facility] Comment on above: Performed By: #### MILO Mattson CH8 #### [facility] [address] [place], Sodium [Moles/Vol] 141 mmol/L Normal 135-148 [facility] Comment on above: Performed By: #### M MILO Alan CH8 #### [facility] [address] [place], [place], Urea nitrogen [Mass/Vol] 16 mg/dL Normal 8-22 [facility] Comment on above: Performed By: #### M MILO Alan CH8 #### [facility] [address] [place], [place], Basic metabolic 2000 panelon 07-15-2022 Anion gap [Moles/Vol] 15 mmol/L 10 - 20 [facility] Calcium [Mass/Vol] 8.0 mg/dL Low 8.4 - 10. 4 mg/dL [facility] Chloride [Moles/Vol] 102 mmol/L 97 - 11 1 mmol/L [facility] CO2 [Moles/Vol] 28 mmol/L 21 - 30 mmol/L [facility] Creatinine [Mass/Vol] 0.91 mg/dL 0.50 - 1.10 mg/dL [facility] GFR/1.73 sq M.predicted MDRD (S/P/Bld) [Vol rate/Area] 78 mL/min/{1.73_m2} - [facility] Comment on above: 2020 CKD EPI [...] Inclusion of Race in Diagnosing Kidney Disease. [place] Journal of Kidney Diseases 202;79(2):268-88.e1. 2. N Engl J Med 1 Vol. 385 Issue 19 Pages 0696-1383 Glucose [Mass/Vol] 147 mg/dL High 68 - 110 mg/dL [facility] Interpretation and review of laboratory results Abnormal [facility] Potassium [Moles/Vol] 4.3 mmol/L 3.3 - 5.3 mmol/L [facility] Sodium [Moles/Vol] 141 mmol/L 135 - 148 mmol/L [facility] Urea nitrogen [Mass/Vol] 16 mg/dL 8 - 22 mg/dL [facility] CBC panel Auto (Bld)on 07-15 Erythrocyte distribution width (RBC) [Ratio] 13.6 % 11.5 - 14.5 % [facility] Hematocrit (Bld) [Volume fraction] 34.4 % Low 36.0 - 46.0 % [facility] Hemoglobin (Bld) [Mass/Vol] 11.5 g/dL Low 12.0 - 15.0 g/dL [facility] Interpretation and review of laboratory results Abnormal [facility] MCH (RBC) [Entitic mass] 32.3 pg 26.0 - 34.0 pg [facility] MCHC (RBC) [Mass/Vol] 33.4 g/dL 32.0 - 35.9 g/dL [facility] MCV (RBC) [Entitic vol] 97 fL 80 - 100 fL [facility] Platelet mean volume (Bld) [Entitic vol] 8.6 fL 7.5 - 11.2 fL [facility] Platelets (Bld) [#/Vol] 267 10*3/uL 150 - 400 K/uL [facility] RBC (Bld) [#/Vol] 3.55 10*6/uL Low [facility] WBC (Bld) [#/Vol] 18.2 10*3/uL High 4.5 - 11.5 K/uL [facility] COMPLETE BLOOD COUNTon 07-15 Erythrocyte distribution width (RBC) [Ratio] 13.6 % Normal 11.5-14.5 [facility] Comment on above: Performed By: #### MILO Mattson CH8 #### [facility] [address] [place] [address], Hematocrit (Bld) [Volume fraction] 34.4 % Low 36.0-46.0 [facility] Comment on above: Performed By: #### MILO Mattson CH8 #### [facility] [address] [place] [address], Hemoglobin (Bld) [Mass/Vol] 11.5 g/dL Low 12.0-15.0 [facility] Comment on above: Performed By: #### MILO Mattson CH8 #### [facility] [address] [place] [address], MCH (RBC) [Entitic mass] 32.3 pg Normal 26.0-34.0 [facility] Comment on above: Performed By: #### MILO Mattson CH8 #### [facility] [address] [place], [place], MCHC (RBC) [Mass/Vol] 33.4 g/dL Normal 32.0-35.9 [facility] Comment on above: Performed By: #### MILO Mattson CH8 #### [facility] [address] [place], MCV (RBC) [Entitic vol] 97 fL Normal 80-100 T [facility] Comment on above: Performed By: #### MILO Mattson CH8 #### [facility] [address] [place], Platelet mean volume (Bld) [Entitic vol] 8.6 fL Normal 7.5-11.2 [facility] Comment on above: Performed By: #### MILO Mattson CH8 #### [facility] [address] [place], Platelets (Bld) [#/Vol] 267 10*3/uL Normal 150-400 [facility] Comment on above: Performed By: #### MILO Mattson CH8 #### [facility] [address] [place], RBC (Bld) [#/Vol] 3.55 10*6/uL Low 4.00-5.20 [facility] Comment on above: Performed By: #### MILO Mattson CH8 #### S PATHOLOGY LABORATORY [address] [place], [place], WBC (Bld) [#/Vol] 18.2 10*3/uL High 4.5-11.5 [facility] Comment on above: Performed By: #### MILO Mattson CH8 #### [facility] [address] [place], [place], Care Plan Noteon 07-15-2022 Clinical Research Management Associate Authentication Interface Message Text Problem: Routine Care: [...] will be met Outcome: Progressing Normal [facility] Clinical Research Management Associate Authentication Interface Message Text Problem: Discharge Planning: [...] System Comment on above: Result Comment: Ricky sonilubna CALISTA MORSE MD Performed By: #### M MILO Alan, CH8 #### [facility] [address] [place], [address] Glucose [Mass/Vol] 155 mg/dL High 68 - 110 mg/dL [facility] Comment on above: Notified CALISTA MORSE MD Interpretation and review of laboratory results Abnormal [facility] Glucose [Mass/Vol] 137 mg/dL High 68-110 [facility] Comment on above: Performed By: #### 8 2948 ####[facility] GLUCOSE [id number] [place], [address] Glucose [Mass/Vol] 137 mg/dL High 68 - 110 mg/dL [facility] Interpretation and review of laboratory results Abnormal [facility] Progress Noteson 07-15-2022 Clinical Research Management Associate Authentication Interface Message Text Attestation signed by [...] MD SURGERY DAILY PROGRESS NOTE Isabelle Hewitt [phone] Isabelle Hewitt is a 47yo F with [...] bisacodyl 10 mg Daily PRN oxymetazoline 2 [place] Q4H PRN sodium chloride 1 [place] Q1H PRN naloxone 0.4 mg PRN IV [...] daily -Lipitor 20mg daily Pulm: -Oxymetazoline 2 [place] q4h PRN -[place] 1 [place] q1h PRN -Face Tent on humidified air [...] OMFS if any questions Seferino Vaz DMD OMFS Resident Team Pager [phone] Normal [facility] Clinical Research Management Associate Authentication Interface Message Text -------- GENERAL INFORMATION [...] oxymetazoline (AFRIN) 0.05 % nasal solution, 2 [place], Nasal, Q4H PRN, Oliver Rogers DMD sodium chloride (OCEAN) 0.65 % nasal spray, 1 [place], Nasal, Q1H PRN, Oliver Rogers DMD enoxaparin (LOVENOX) 40 MG/0.4ML injection 40 mg, 40 mg, Subcutaneous, Daily, Oliver Rogers DMD, 40 mg at 07/14/22 1658 naloxone (NARCAN) 0.4 MG/ML injection, 0.4 mg, Intravenous Push, PRN, Ki Atwood MD lactated ringers iv infusion, , Intravenous, Continuous, Saleem Mi, DMD, Last Rate: 75 mL/hr at 07/15/22 0700, Rate Verify at 07/15/22699 Physical Exam: Constitutional: Pleasant adult woman in [...] - (more content not included)... Normal [facility] Anesthesia Attestationon Clinical Research Management Associate Authentication Interface Message Text Anesthesia Attestation ATTESTATION OF INFORMED CONSENT FOR ANESTHESIA Anesthesia options were discussed with the patient and/or legal factory representative. The risks, benefits and alternatives were reviewed. Questions regarding anesthesia were answered. Patient and/or legal factory representative knows such anesthetics and procedures may be performed by Resident physicians, Certified Anesthesiologist Assistants, or Certified Nurse Anesthetists under the supervision of a physician. The patient /or the patient's legal factory representative agree with the plan for anesthesia. Normal [facility] Anesthesia Postprocedure Lauren patel 07-14-2022 Clinical Research Management Associate Authentication Interface Message Text Anesthesia Postoperative Assessment: [...] EVENTS: No notable events documented. Normal [facility] Anesthesia Transfer Of Careo n 07-14-2022 Clinical Research Management Associate Authentication Interface Message Text Patient taken to [...] was received. Zenia Centeno, CAA Normal [facility] BLOOD GAS, ARTERIALon 11-23- 2022 CR DEBORAH 0.5 mmol/L Normal -2.0-2.0 [facility] Comment on above: Performed By: #### C R LYTES, CR GLU, LACT, CR BGA, CR ICA, CR COOX #### [facility] PATHOLOG[facility] LABORATORY [address] [place] [address], CR PCO2 37.0 mm Hg Normal 35.0-45.0 [facility] Comment on above: Performed By: #### C R LYTES, CR GLU, LACT, CR BGA, CR ICA, CR COOX #### [facility] PATHOLOGY LABORATORY [address] [place] [address], CR PHA 7.429 Normal 7.35-7.45 [facility] Comment on above: Performed By: #### C R LYTES, CR GLU, LACT, CR BGA, CR ICA, CR COOX #### [facility] PATH[facility]Y LABORATORY [address] [place] [address], CR PO2 118 mm Hg High 80-100 [facility] Comment on above: Performed By: #### C R LYTES, CR GLU, LACT, CR BGA, CR ICA, CR COOX #### [facility] PATHOLOGY LABORATORY [address] [place] [address], HCO3 (Bld) [Moles/Vol] 24 mmol/L Normal 22-28 e [facility] Comment on above: Performed By: #### C R LYTES, CR GLU, LACT, CR BGA, CR ICA, CR COOX #### [facility] PATHOLOGY LABORATORY [address] [place] [address], Oxygen saturation in Blood 98.8 % Normal >=95.1 [facility] Comment on above: Performed By: #### C R LYTES, CR GLU, LACT, CR BGA, CR ICA, CR COOX #### [facility] PATH[facility] LABORATORY [address] [place] [address], BLOOD GAS, ARTERIALOrdered B y: Osmar Zamora on 07-14-2022 Base excess Calc (Bld) [Moles/Vol] 0.5 mmol/L -2.0 - 2.0 mmol/L [facility] CO2 (Bld) [Partial pressure] 37.0 mm[Hg] [facility] Oxygen (Bld) [Partial pressure] 118 mm[Hg] High [facility] pH (Bld) 7.429 [pH] 7.35 - 7.45 [facility] Blood Attestationon 07-14-20 Clinical Research Management Associate Authentication Interface Message Text Blood Attestation ATTESTATION OF INFORMED CONSENT FOR BLOOD The transfusion of blood and/or blood components were discussed with the patient and/or legal factory representative. The risks, benefits and alternatives were reviewed. Questions regarding blood transfusions were answered. The patient /or the patient's legal factory representative agree with the plan for transfusion of blood and/or blood components. Normal [facility] Brief Operative Noteon 07-14 Clinical Research Management Associate Authentication Interface Message Text Brief Operative Note MAIN OR 12 Isabelle Hewitt 47 year old female Surgical Contact Serial Number: [id number] Preoperative Diagnosis: DIONNE (obstructive sleep apnea) [G47.33] Postoperative Diagnosis: * DIONNE (obstructive sleep apnea) [G47.33] Procedures: Surgical CPTs Procedures RECONSTRUCTION MIDFACE, LEFORT I; 1 PIECE, W/O BONE GRAFT RECONSTRUCTION, MANDIBULAR RAMI AND /OR BODY, SAGITTAL SPLIT; W/INT RIGID FIXATION No data filed Surgeon(s): Surgeon(s): Rikki Rodrigues DMD, MD Staff: Scrub: Annelise Saeed RN; Babs Wells RN Press Set Up Nurse: Stephanie Brannon RN; Babs Wells RN Analysis Tester: Margot Ovalles DDS; Saleem Mi DMD Anesthesia: [...] CR ICA 1.00 mmol/L Low 1.10-1.40 [facility] Comment on above: Performed By: #### C R LYTES, CR GLU, LACT, CR BGA, CR ICA, CR COOX #### [facility] [address] [place] [address], Calcium.ionized (Bld) [Moles/Vol] 1.00 mmol/L Low 1.10 - 1.40 mmol/L [facility] CO-OXIMETERon 07-14-2022 CARBOXYHEMOGLOBIN 1.5 % Normal <3.0 [facility] Comment on above: Performed By: #### C R LYTES, CR GLU, LACT, CR BGA, CR ICA, CR COOX #### [facility] [address] [place] [address], CR HBMET 0.8 % Normal <3.0 [facility] Comment on above: Performed By: #### C R LYTES, CR GLU, LACT, CR BGA, CR ICA, CR COOX #### [facility] [address] [place] [address], Hematocrit (Bld) [Volume fraction] 37.6 % Normal 36.0-46.0 [facility] Comment on above: Performed By: #### C R LYTES, CR GLU, LACT, CR BGA, CR ICA, CR COOX #### [facility] [address] [place] [address], Hemoglobin (Bld) [Mass/Vol] 12.2 g/dL Normal 12.0-16.0 [facility] Comment on above: Performed By: #### C R LYTES, CR GLU, LACT, CR BGA, CR ICA, CR COOX #### [facility] [address] [place] [address], OXYHEMOGLOBIN 96.5 % Normal 95.0-100.0 [facility] Comment on above: Performed By: #### C R LYTES, CR GLU, LACT, CR BGA, CR ICA, CR COOX #### [facility] [address] [place], [place], Carboxyhemoglobin (BldA) [Mass fraction] 1.5 % NINF - 3.0 % [facility] Hematocrit (BldA) [Volume fraction] 37.6 % 36.0 - 46.0 % [facility] Hemoglobin (Bld) [Mass/Vol] 12.2 g/dL 12.0 - 16.0 g/dL [facility] Methemoglobin (BldA) [Mass fraction] 0.8 % NINF - 3.0 % [facility] Oxyhemoglobin (BldA) [Mass fraction] 96.5 % 95.0 - 100.0 % [facility]son 07-14-2022 Clinical Research Management Associate Authentication Interface Message Text Surgical ICU H AND P Isabelle Hewitt [id number] HPI: Ms Hewitt is a 47 year [...] floor (more content not included)... Normal [facility] ELECTROLYTESon 07-14-2022 Chloride [Moles/Vol] 107 mmol/L Normal 97-111 [facility] Comment on above: Performed By: #### C R LYTES, CR GLU, LACT, CR BGA, CR ICA, CR COOX #### [facility] [address] [place] [address], Potassium [Moles/Vol] 3.7 mmol/L Normal 3.3-5.3 [facility] Comment on above: Performed By: #### C R LYTES, CR GLU, LACT, CR BGA, CR ICA, CR COOX #### [facility] [address] [place] [address], Sodium [Moles/Vol] 142 mmol/L Normal 135-148 [facility] Comment on above: Performed By: #### C R LYTES, CR GLU, LACT, CR BGA, CR ICA, CR COOX #### [facility] [address] [place] [address], Chloride [Moles/Vol] 107 mmol/L 97 - 11 1 mmol/L [facility] Potassium [Moles/Vol] 3.7 mmol/L 3.3 - 5.3 mmol/L [facility] Sodium [Moles/Vol] 142 mmol/L 135 - 148 mmol/L [facility] GLUCOSE, FINGERSTICK-IN OFFI CEon 07-14-2022 Glucose [Mass/Vol] 156 mg/dL High 68-110 [facility] Comment on above: Performed By: #### 8 [id number] ####NURSING GLUCOSE [id number] [place], [address] Glucose [Mass/Vol] 156 mg/dL High 68 - 110 mg/dL [facility] Interpretation and review of laboratory results Abnormal [facility] Glucose [Mass/Vol] 110 mg/dL Normal 68-110 [facility] Comment on above: Performed By: #### 8 2948 ####NURSING GLUCOSE [id number] [place], [address] Glucose [Mass/Vol] 110 mg/dL 68 - 110 mg/dL [facility] Interpretation and review of laboratory results Normal [facility] GLUCOSE, WHOLE BLOODon 07-14 CR GLU 93 mg/dL Normal 68-98 [facility] Comment on above: Performed By: #### C R LYTES, CR GLU, LACT, CR BGA, CR ICA, CR COOX ####[facility] [id number] [place], [address] Glucose [Mass/Vol] 93 mg/dL 68 - 98 mg/dL [facility] LACTIC ACIDon 07-14-2022 CR LACT 2.0 mmol/L Normal 0.5-2.0 [facility] Comment on above: Performed By: #### C R LYTES, CR GLU, LACT, CR BGA, CR ICA, CR COOX #### [facility] [address] [place], [address] Lactate [Moles/Vol] 2.0 mmol/L 0.5 - 2. 0 mmol/L [facility] - Chemistry and C hemistry - challengeOrdered By: Osmar Zamora on 07-14-2022 HCO3 (Bld) [Moles/Vol] 24 mmol/L 22 - 28 mmol/L [facility] No Panel Informationon 07-14 Interpretation and review of laboratory results Normal [facility] No Panel InformationOrdered By: Osmar Zamora on 07-14-2022 Interpretation and review of laboratory results Abnormal [facility] OP Noteon 07-14-2022 Clinical Research Management Associate Authentication Interface Message Text Name: ISABELLE HEWITT MR#: [id number] [facility]#: [id number] Date of Procedure: 07/14/2022 ATTENDING SURGEON: Rikki [...] a combination of osteotomes and a Kaufman roll panner. On both sides, the inferior alveolar nerve [...] anticipated 3 mm of anterior impaction accomplished. Negorama prebent orthognathic plates were used at the [...] FINDINGS: IMPRESSION: Single view of the filter [place] with linear radiopaque foreign body compatible with retained needle. MACRO: None Normal [facility] XR Skull PA and Right latera l and Left lateralon 07-14-2022 EXAMINATION: XR SKUL L PA+LATERAL 07/14/2022 10:15 AM CLINICAL HISTORY: Reason for Exam: retained object. ASSOCIATED DIAGNOSIS: ORDERING PROVIDER: CORRINE RODRIGUES TE[employer]NOLOGISTS NOTE: Image of filter for retained surgical needle per Dr. Rodrigues. COMPARISON: None FINDINGS: IMPRESSION: Single view of the filter [place] with linear radiopaque foreign body compatible with retained needle. MACRO: None RADIOLOGY Jerel Guzman MD - 07/14/2022 EXAMINATION: XR SKULL PA+LATERAL 07/14/2022 10:15 AM CLINICAL HISTORY: Reason for Exam: retained object. ASSOCIATED DIAGNOSIS: ORDERING PROVIDER: CORRINE RODRIGUES [employer]NOLOGISTS NOTE: Image of filter for retained surgical needle per Dr. Rodrigues. COMPARISON: None FINDINGS: IMPRESSION: Single view of the filter [place] with linear radiopaque foreign body compatible with retained needle. 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 Normal [facility] Telephone Encounteron 2021 Clinical Research Management Associate Authentication Interface Message Text Patient states she is faxing over paperwork for her time off of work d/t surgery tomorrow, 07/14. Patient would like a call when this is received if possible. Please call [phone]. Patient informed it might not be possible, just in case. Thank you! Normal [facility] Telephone Encounteron 2021 Clinical Research Management Associate Authentication Interface Message Text 1716: Contacted pt and informed her to call the ENT office to schedule appt with Dr Moreno s/p jaw surgery in about 3 months due to healing time. Pt verbalized understanding. Latoya Manzo RN Normal [facility] Clinical Research Management Associate Authentication Interface Message Text Dr. Joel, Patient calling stating that she is going forward with the jaw surgery that you recommended next 07/14/22. Patient would like to know what the next step is for after the surgery. PT: [phone] Thanks, D Normal [facility] ABO RH TYPEon 07-08-2022 ABO and Rh group Nom (Bld) Blood group B Rh(D) positive Normal [facility] Comment on above: Performed By: #### M MILO Alan CH8 #### [facility] [address] [place], [place], CBC panel Auto (Bld)on 07-08 Erythrocyte [...] (RBC) [Ratio] 13.4 % Normal 11.5-14.5 [facility] Comment on above: Performed By: #### C BC ####[facility] [id number] [place], [place], Hematocrit (Bld) [Volume fraction] 42.2 % Normal 36.0-46.0 [facility] Comment on above: Performed By: #### C BC ####[facility] [id number] [place] [address], Hemoglobin (Bld) [Mass/Vol] 14.3 g/dL Normal 12.0-15.0 [facility] Comment on above: Performed By: #### C BC ####[facility] [id number] [place] [address], MCH (RBC) [Entitic mass] 33.1 pg Normal 26.0-34.0 [facility] Comment on above: Performed By: #### C BC ####[facility]OLOGY [id number] [place] [address], MCHC (RBC) [Mass/Vol] 33.9 g/dL Normal 32.0-35.9 [facility] Comment on above: Performed By: #### C BC ####[facility] [id number] [place] [address], MCV (RBC) [Entitic vol] 98 fL Normal 80-100 T [facility] Comment on above: Performed By: #### C BC ####[facility] PATHOLOGY [id number] [place] [address], Platelet mean volume (Bld) [Entitic vol] 8.8 fL Normal 7.5-11.2 [facility] Comment on above: Performed By: #### C BC ####[facility] PATHOLOGY [id number] [place] [address], Platelets (Bld) [#/Vol] 274 10*3/uL Normal 150-400 [facility] Comment on above: Performed By: #### C BC ####[facility] [id number] [place] [address], RBC (Bld) [#/Vol] 4.32 10*6/uL Normal 4.00-5.[address] [facility] Comment on above: Performed By: #### C BC ####[facility] [id number] [place] [address], WBC (Bld) [#/Vol] 7.2 10*3/uL Normal 4.5-11.5 [facility] Comment on above: Performed By: #### C BC ####[facility] [id number] [place], [place], Laboratory - Blood bankon ABO and Rh group Nom (Bld) Blood group B Rh(D) positive [facility] No Panel Informationon 07-08 [facility] PSE Appt H AND Neftali Clinical Research Management Associate Authentication Interface Message Text Patient was identified by name and date of . Edwina Daniel Bill of rights provided to patient Normal [facility] Patient Instructionson 07-08 Clinical Research Management Associate Authentication Interface Message Text On the morning [...] for pain Please hold all Vitamin E, [place] 3, fish oil and herbal supplements for 1 week prior to surgery Normal [facility] TYPE AND SCREENon 07-08-2022 ABO and Rh group Nom (Bld) No Previous Results [facility] Comment on above: Patient does not req uire a 2nd sample drawn prior to surgery date of 07/14/2022___. Specimen meets Blood Bank's Pre-Surgical Protocol and is valid within 14 days from date of collection but will at midnight on the day of approved Surgery. Corrected Result : 07/08/2022 17:16:22 : By Transfusion Medicine Blood group antibody screen Ql Negative [facility] ABO and Rh group Nom (Bld) Blood group B Rh(D) positive Normal [facility] Comment on above: Performed By: #### MILO Mattson, RAQUEL8 #### [facility] [address] [place] [address], ABO and Rh group Nom (Bld) No Previous Results Normal [facility] Comment on above: Result Comment: Deepa [...] MILO Mattson CH8 #### [facility] [address] [place] [address], ABSC INT Negative Normal [facility] Comment on above: Performed By: #### MILO Mattson, RAQUEL8 #### [facility] [address] [place] [address], FREE T4on 07-07-2022 Free T4 [Mass/Vol] 0.83 ng/dL Normal 0.76-1.46 The [facility] Comment on above: Performed By: #### F T4 #### [facility] [address] [place] [address] Dr. Stephanie Gibbs TSHon 07-07-2022 TSH 3.715 uIU/mL Normal 0.358-3.740 [facility] Comment on above: Performed By: #### C BC #### [facility] [address] [place] [address] Dr. Stephanie Gibbs PSE Appt H AND Neftali Clinical Research Management Associate Authentication Interface Message Text Error Normal [facility] Progress Noteson 07-02-2022 Clinical Research Management Associate Authentication Interface Message Text Patient was seen in the OM clinic for alginate impressions of the edentulous maxilla and CBCT with denture in place. Seferino Vaz DMD OMFS Resident Normal [facility] Clinical Research Management Associate Authentication Interface Message Text ORAL SURGERY CLINIC FOLLOW UP VISIT Patient was seen in the OMFS clinic for alginate impressions of the edentulous maxilla and CBCT with denture in place. Seferino Vaz DMD OMFS Resident ms. Normal [facility] Patient Instructionson 06-18 Clinical Research Management Associate Authentication Interface Message Text Maxillomandibular advancement surgery, [...] daytime fatigue and inconsistent sleep. Normal [facility] Progress Noteson 06-18-2022 Clinical Research Management Associate Authentication Interface Message Text FS PATIENT VISIT CHIEF COMPLAINT: sleep apnea HISTORY OF PRESENT ILLNESS: Patient presents for evaluation for surgical treatment of DIONNE. She is extremely symptomatic from her DIONNE, and suffers from CPAP intolerance. [place] sleepiness scale is 18. Patient is starting [...] on 06/18/2022, and Digital version in Dentistry [employer] system. Airway measurements are very small compared to norms. Retrognathic mandible. DIAGNOSIS: Obstructive sleep apnea [476684] TREATMENT: Exam, Panorex evaluated, and pictures/models taken [...] for (more content not included)... Normal [facility] Progress Noteson 06-15-2022 Clinical Research Management Associate Authentication Interface Message Text CC: sleep disordered [...] nerve stimulator implanted following MMA Normal [facility] Anesthesia Attestationon Clinical Research Management Associate [employer] Interface Message Text Anesthesia Attestation ATTESTATION OF INFORMED CONSENT FOR ANESTHESIA Anesthesia options were discussed with the patient and/or legal factory representative. The risks, benefits and alternatives were reviewed. Questions regarding anesthesia were answered. Patient and/or legal factory representative knows such anesthetics and procedures may be performed by Resident physicians, Certified Anesthesiologist Assistants, or Certified Nurse Anesthetists under the supervision of a physician. The patient /or the patient's legal factory representative agree with the plan for anesthesia. Normal [facility] Anesthesia Postprocedure Laruen luationon 06-03-2022 Clinical Research Management Associate Authentication Interface Message Text Anesthesia Postoperative Assessment: [...] EVENTS: No notable events documented. Normal [facility] Anesthesia Preprocedure Eval uationon 06-03-2022 Clinical Research Management Associate Authentication Interface Message Text ASA: 2 No [...] the history and physical examination. Normal [facility] Anesthesia Transfer Of Careo n 06-03-2022 Clinical Research Management Associate Authentication Interface Message Text Patient taken to [...] report was received. CINTIA Patel Normal [facility] Brief Operative Noteon 06-03 Clinical Research Management Associate Authentication Interface Message Text Brief Operative Note PACU 19 Isabelle Hewitt 47 year old female Surgical Contact Serial Number: [id number] Preoperative Diagnosis: DIONNE (obstructive sleep apnea) [G47.33] [...] Brown PA-C 06/03/2022 2:48 PM Normal [facility] OP Noteon 06-03-2022 Clinical Research Management Associate Authentication Interface Message Text Name: ISABELLE HEWITT MR#: [id number] ENC#: [id number] Date of Procedure: 06/03/2022 ATTENDING SURGEON: Yi [...] taken back to recovery. Yi Moreno MD VERIFICATION REP/MedQ/ Dict: 06/03/2022 15:35:21 TRANS: 06/04/2022 07:02:00 JOB: [id number] DictJob#: [id number] Normal [facility] Progress Noteson 06-03-2022 Clinical Research Management Associate Authentication Interface Message Text Discharge instructions reviewed in preop with patient. Patient verbalized understanding. No questions at this time. Normal [facility] Telephone Encounteron 2021 Clinical Research Management Associate Authentication Interface Message Text Pre-op COVID test results received AND scanned into [employer]. Results NEGATIVE on 05/31/2022. Scheduled for DISE on 06/03/2022. Normal [facility] COVID Quick Testingon 2021 Result Negative beneSol Other PSE Call H AND Neftali Clinical Research Management Associate Authentication Interface Message Text Telephone History Isabelle Hewitt, [id number] 05/28/2022 47 year old 190 lbs 5' [...] capsul (more content not included)... Normal [facility] Telephone Encounteron 2021 Clinical Research Management Associate Authentication Interface Message Text Patient is scheduled for DISE on 06/03/2022. Prefers to complete pre-op COVID testing closer to home. Instructed to obtain testing 48-72 hours prior to surgery and bring copy of results on day of surgery. PSE contact information provided. Normal [facility] Addendum Noteon 05-26-2022 Clinical Research Management Associate [employer] Interface Message Text Addended by: YI MORENO on: 05/26/2022 05:25 PM Modules accepted: Orders Normal [facility] Telephone Encounteron 2021 Clinical Research Management Associate Authentication Interface Message Text Arrangements to be made for pre-op COVID testing per ENT request. Normal [facility] MRI PITUITARY WO W CONon MRI [...] WILEY POE Date: 2022-05-18 13:10 Normal [facility] US PELVIS AND TRANSVAGon US PELVIS [...] MADDI WINSTON Date: 2022-05-11 16:51 Normal [facility] ESTRADIOLon 05-08-2022 Estradiol 16.3 pg/mL Normal [facility] Comment on above: Result Comment: Adul t Female: Follicular phase 12.5 - 166.0 Ovulation phase 85.8 - 498.0 Luteal phase 43.8 - 211.0 Postmenopausal <6.0 - 54.7 1st trimester 215.0 - >4300.0 Salma ECLIA methodology Performed By: #### C BC #### [facility] [address] [place] [address] Dr. Stephanie Gibbs FSHon 05-08-2022 FSH 11.3 mIU/mL Normal [facility] Comment on above: Result Comment: Adul t Female: Follicular phase 3.5 - 12.5 Ovulation phase 4.7 - 21.5 Luteal phase 1.7 - 7.7 Postmenopausal 25.8 - 134.8 Performed By: #### C BC #### [facility] [address] [place] [address] Dr. Stephanie Gibbs LUTEINIZING HORMONE (LH)on 0 05-08-2022 LH 4.7 mIU/mL Normal [facility] Comment on above: Result Comment: Adul t Female: Follicular phase 2.4 - 12.6 Ovulation phase 14.0 - 95.6 Luteal phase 1.0 - 11.4 Postmenopausal 7.7 - 58.5 Performed By: #### L BCLH #### [facility] [address] [place] [address] Dr. Stephanie Gibbs PROGESTERONEon 05-08-2022 Progesterone 0.2 ng/mL Normal [facility] Comment on above: Result Comment: Foll icular phase 0.1 - 0.9 Luteal phase 1.8 - 23.9 Ovulation phase 0.1 - 12.0 First trimester 11.0 - 44.3 Second trimester 25.4 - 83.3 Third trimester 58.7 - 214.0 Postmenopausal 0.0 - 0.1 Performed By: #### P ROGES #### [facility] [address] [address] [address] Stephanie Gibbs PROLACTINon 05-08-2022 Prolactin 43.0 ng/mL Critically high 4.8-23.3 [facility] Comment on above: Performed By: #### F T4 #### [facility] [address] [address] [address] Stephanie Gibbs CBC AUTO DIFFon 05-07-2022 BASO # 0.1 103/ul Normal 0.0-0.1 [facility] Comment on above: Performed By: #### C BC #### [facility] [address] [address] [address] Stephanie Gibbs Basophils/100 WBC (Bld) 1.0 % Normal 0.2-2.0 [facility] Comment on above: Performed By: #### C BC #### [facility] [address] [address] [address] Stephanie Gibbs EO # 0.2 103/ul Normal 0.0-0.7 [facility] Comment on above: Performed By: #### C BC #### [facility] [address] [place] [address] Dr. Stephanie Gibbs Eosinophils/100 WBC (Bld) 2.7 % Normal 0.9-7.0 [facility] Comment on above: Performed By: #### C BC #### [facility] [address] [place] [address] Dr. Stephanie Gibbs Erythrocyte distribution width (RBC) [Ratio] 13.0 % Normal 11.0-15.0 [facility] Comment on above: Performed By: #### C BC #### [facility] [address] [place] [address] Dr. Stephanie Gibbs Hematocrit (Bld) [Volume fraction] 39.0 % Normal 36.0-48.0 [facility] Comment on above: Performed By: #### C BC #### [facility] [address] [place] [address] Dr. Stephanie Gibbs Hemoglobin (Bld) [Mass/Vol] 13.0 g/dL Normal 12.0-16.0 [facility] Comment on above: Performed By: #### C BC #### [facility] [address] [place] [address] Dr. Stephanie Gibbs IG # 0.03 10e3/ul Normal 0.00-0.03 [facility] Comment on above: Performed By: #### C BC #### [facility] [address] [place] [address] Dr. Stephanie Gibbs IG % 0.4 % Normal 0.0-0.5 [facility] Comment on above: Performed By: #### C BC #### [facility] [address] [place] [address] Dr. Stephanie Gibbs LYMPH # 2.4 103/ul Normal 1.2-3.8 [facility] Comment on above: Performed By: #### C BC #### [facility] [address] [place] [address] Dr. Stephanie Gibbs Lymphocytes/100 WBC (Bld) 33.8 % Normal 20.5-60.0 [facility] Comment on above: Performed By: #### C BC #### [facility] [address] [place] [address] Dr. Stephanie Gibbs MANUAL DIFF REQ NO Normal [facility] Comment on above: Performed By: #### C BC #### [facility] [address] [place] [address] Dr. Stephanie Gibbs MCH (RBC) [Entitic mass] 32.2 pg Normal 26.7-34.0 [facility] Comment on above: Performed By: #### C BC #### [facility] [address] [place] [address] Dr. Stephanie Gibbs MCHC (RBC) [Mass/Vol] 33.3 g/dL Normal 29.9-35.2 [facility] Comment on above: Performed By: #### C BC #### [facility] [address] [place] [address] Dr. Stephanie Gibbs MCV (RBC) [Entitic vol] 96.5 fL Normal 81.0-99.0 [facility] Comment on above: Performed By: #### C BC #### [facility] [address] [place] [address] Dr. Stephanie Gibbs MONO # 0.4 103/ul Normal 0.3-0.8 [facility] Comment on above: Performed By: #### C BC #### [facility] [address] [place] [address] Dr. Stephanie Gibbs Monocytes/100 WBC (Bld) 5.9 % Normal 1.7-12.0 [facility] Comment on above: Performed By: #### C BC #### [facility] [address] [address] [address] Stephanie Gibbs NEUT # 4.0 103/ul Normal 1.4-6.5 [facility] Comment on above: Performed By: #### C BC #### [facility] [address] [address] [address] Stephanie Gibbs Neutrophils/100 WBC (Bld) 56.2 % Normal 43.0-75.0 [facility] Comment on above: Performed By: #### C BC #### [facility] [address] [place] [address] Dr. Stephanie Gibbs Platelet mean volume (Bld) [Entitic vol] 9.8 fL Normal 9.5-13.5 [facility] Comment on above: Performed By: #### C BC #### [facility] [address] [place] [address] Dr. Stephanie Gibbs PLT 245 103/ul Normal 150-450 [facility] Comment on above: Performed By: #### C BC #### [facility] [address] [place] [address] Dr. Stephanie Gibbs RBC 4.04 106/ul Critically low 4.20-5.40 [facility] Comment on above: Performed By: #### C BC #### [facility] [address] [place] [address] Dr. Stephanie Gibbs WBC 7.2 103/ul Normal 4.0-11.0 [facility] Comment on above: Performed By: #### C BC #### [facility] [address] [place] [address] Dr. Stephanie Gibbs FREE T4on 05-07-2022 Free T4 [Mass/Vol] 0.69 ng/dL Critically low 0.76-1.46 [facility] Comment on above: Performed By: #### C BC #### [facility] [address] [place] [address] Dr. Stephanie Gibbs GLYCOHEMOGLOBIN A1Con 2021 ADA RECOMMENDATION SEE BELOW Normal [facility] Comment on above: Result Comment: ADA RECOMMENDED LIMIT 4.0 - 6.0 ADA THERAPEUTIC TARGET < 7.0 ACTION SUGGESTED > 7.0 Performed By: #### C BC #### [facility] [address] [address] [address] Stephanie Gibbs Glucose [Mass/Vol] 128 mg/dL Normal [facility] Comment on above: Performed By: #### C BC #### [facility] [address] [address] [address] Stephanie Gibbs HbA1c (Bld) [Mass fraction] 6.1 % Normal 4.5-6.2 [facility] Comment on above: Performed By: #### C BC #### [facility] [address] [place] [address] Dr. Stephanie Gibbs TSHon 05-07-2022 TSH 2.391 uIU/mL Normal 0.358-3.740 [facility] Comment on above: Performed By: #### F T4 #### [facility] [address] [place] [address] Dr. Stephanie Gibbs Progress Noteson 03-29-2022 Clinical Research Management Associate Authentication Interface Message Text .Documentation: Mode: Telephone Patient Home Phone: Patient Patient Cell Preferred phone: [phone] Consent: I confirmed patient understanding of the [...] seen on prior sleep endoscopy Normal [facility] FREE T4on 03-09-2022 Free T4 [Mass/Vol] 1.08 ng/dL Normal 0.76-1.46 [facility] Comment on above: Performed By: #### F T4 #### [facility] [address] [address] [address] Stephanie Gibbs LIPID PROFILEon 03-09-2022 CHOL-HDL RATIO NORM SEE BELOW Normal [facility] Comment on above: Result Comment: 3.3 - 4.4 LOW RISK 4.4 - 7.1 AVERAGE RISK 7.1 - 11.0 MODERATE RISK >11.0 HIGH RISK Performed By: #### F T4 #### [facility] [address] [place] [address] Dr. Stephanie Gibbs Cholesterol [Mass/Vol] 205 mg/dL Critically high <=200 [facility] Comment on above: Performed By: #### F T4 #### [facility] [address] [address] [address] Stephanie Gibbs Cholesterol in HDL [Mass/Vol] 44 mg/dL Normal 40-60 [facility] Comment on above: Performed By: #### F T4 #### [facility] [address] [place] [address] Dr. Stephanie Gibbs Cholesterol in LDL [Mass/Vol] 126.6 mg/dL Normal [facility] Comment on above: Performed By: #### F T4 #### [facility] [address] [address] [address] Stephanie Gibbs Cholesterol.total/Edu sterol in HDL [Mass ratio] 4.7 {ratio} Normal [facility] Comment on above: Performed By: #### F T4 #### [facility] [address] [place] [address] Dr. Stephanie Gibbs HDL NORMAL > or = 60 mg/dl - LO W CARDIOVASCULAR RISK <40 mg/dl - HIGH CARDIOVASCULAR RISK Normal [facility] Comment on above: Performed By: #### F T4 #### [facility] [address] [place] [address] Dr. Stephanie Gibbs LDL CALC NORMAL SEE BELOW Normal [facility] Comment on above: Result Comment: <100 mg/dl OPTIMAL 100 - 129 mg/dl NEAR OR ABOVE OPTIMAL 130 - 159 mg/dl BORDERLINE HIGH 160 - 189 mg/dl HIGH >190 mg/dl VERY HIGH Performed By: #### F T4 #### [facility] [address] [address] [address] Stephanie Gibbs Triglyceride [Mass/Vol] 172 mg/dL Critically high <=150 [facility] Comment on above: Performed By: #### F T4 #### [facility] [address] [address] [address] Stephanie Gibbs VLDL CALC 34.4 mg/dL Normal [facility] Comment on above: Performed By: #### F T4 #### [facility] [address] [place] [address] Dr. Stephanie Gibbs PROF 14(COMP METB)on 022 Albumin [Mass/Vol] 3.7 g/dL Normal 3.4-5.0 [facility] Comment on above: Performed By: #### F T4 #### [facility] [address] [address] [address] Stephanie Gibbs Albumin/Globulin [Mass ratio] 0.8 {ratio} Normal [facility] Comment on above: Performed By: #### F T4 #### [facility] [address] [place] [address] Dr. Stephanie Gibbs ALP [Catalytic activity/Vol] 121 U/L Critically high 46-116 [facility] Comment on above: Performed By: #### F T4 #### [facility] [address] [address] [address] Stephanie Gibbs ALT [Catalytic activity/Vol] 39 U/L Normal 14-59 [facility] Comment on above: Performed By: #### F T4 #### [facility] [address] [place] [address] Dr. Stephanie Gibbs Anion gap [Moles/Vol] 12.6 mmol/L Normal [facility] Comment on above: Performed By: #### F T4 #### [facility] [address] [place] [address] Dr. Stephanie Gibbs AST [Catalytic activity/Vol] 21 U/L Normal 15-37 [facility] Comment on above: Performed By: #### F T4 #### [facility] [address] [place] [address] Dr. Stephanie Gibbs Bilirubin [Mass/Vol] 0.4 mg/dL Normal 0.2-1.0 [facility] Comment on above: Performed By: #### F T4 #### [facility] [address] [place] [address] Dr. Stephanie Gibbs Calcium [Mass/Vol] 9.1 mg/dL Normal 8.5-10.1 [facility] Comment on above: Performed By: #### F T4 #### [facility] [address] [place] [address] Dr. Stephanie Gibbs Chloride [Moles/Vol] 102 mmol/L Normal 98-107 [facility] Comment on above: Performed By: #### F T4 #### [facility] [address] [place] [address] Dr. Stephanie Gibbs CO2 [Moles/Vol] 28.1 mmol/L Normal 21.0-32.0 [facility] Comment on above: Performed By: #### F T4 #### [facility] [address] [place] [address] Dr. Stephanie Gibbs Creatinine [Mass/Vol] 0.95 mg/dL Normal 0.55-1.02 [facility] Comment on above: Performed By: #### F T4 #### [facility] [address] [place] [address] Dr. Stephanie Gibbs EGFR-AF IRISH >60 Normal >=60 [facility] Comment on above: Performed By: #### F T4 #### [facility] [address] [place] [address] Dr. Stephanie Gibbs EGFR-NON AF IRISH >60 Normal >=60 [facility] Comment on above: Performed By: #### F T4 #### [facility] [address] [place] [address] Dr. Stephanie Gibbs Globulin (S) [Mass/Vol] 4.8 g/dL Normal [facility] Comment on above: Performed By: #### F T4 #### [facility] [address] [address] [address] Stephanie Gibbs Glucose [Mass/Vol] 106 mg/dL Normal 74-106 [facility] Comment on above: Performed By: #### F T4 #### [facility] [address] [address] [address] Stephanie Gibbs Potassium [Moles/Vol] 3.7 mmol/L Normal 3.5-5.1 [facility] Comment on above: Performed By: #### F T4 #### [facility] [address] [place] [address] Dr. Stephanie Gibbs Protein [Mass/Vol] 8.5 g/dL Critically high 6.4-8.2 [facility] Comment on above: Performed By: #### F T4 #### [facility] [address] [place] [address] Dr. Stephanie Gibbs Sodium [Moles/Vol] 139 mmol/L Normal 136-145 [facility] Comment on above: Performed By: #### F T4 #### [facility] [address] [place] [address] Dr. Stephanie Gibbs Urea nitrogen [Mass/Vol] 14.0 mg/dL Normal 7.0-18.0 [facility] Comment on above: Performed By: #### F T4 #### [facility] [address] [place] [address] Dr. Stephanie Gibbs Urea nitrogen/Creatinine [Mass ratio] 14.7 mg/mg Normal [facility] Comment on above: Performed By: #### F T4 #### [facility] [address] [address] [address] Stephanie Gibbs TSHon 03-09-2022 TSH 0.446 uIU/mL Normal 0.358-3.740 [facility] Comment on above: Performed By: #### F T4 #### [facility] [address] [place] [address] Dr. Stephanie Gibbs Telephone Encounteron 2021 Clinical Research Management Associate Authentication Interface Message Text Patient calling in [...] to turn it in is 03/19/22. #: [phone] Normal [facility] Care Plan Noteon 02-26-2022 Clinical Research Management Associate Authentication Interface Message Text Problem: Routine Care: [...] met Outcome: Adequate for Discharge Normal [facility] Clinical Research Management Associate Authentication Interface Message Text Problem: Routine Care: [...] will be met Outcome: Progressing Normal [facility] Anesthesia Attestationon Clinical Research Management Associate Authentication Interface Message Text Anesthesia Attestation ATTESTATION OF INFORMED CONSENT FOR ANESTHESIA Anesthesia options were discussed with the patient and/or legal factory representative. The risks, benefits and alternatives were reviewed. Questions regarding anesthesia were answered. Patient and/or legal factory representative knows such anesthetics and procedures may be performed by Resident physicians, Certified Anesthesiologist Assistants, or Certified Nurse Anesthetists under the supervision of a physician. The patient /or the patient's legal factory representative agree with the plan for anesthesia. Normal [facility] Anesthesia Postprocedure Lauren luationon 02-25-2022 Clinical Research Management Associate Authentication Interface Message Text Anesthesia Postoperative Assessment: [...] ANESTHESIA COMPLICATIONS: No complications documented. 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 Normal [facility] Anesthesia Transfer Of Careo n 02-25-2022 Clinical Research Management Associate Authentication Interface Message Text Patient taken to [...] Maite Youssef MD CAA: Mariaa Meneses CAA ACCOUNTS SPECIALIST: Cari Hurtado APRN-CRNA Air Brake Adjuster: Carol Barrera MD Anesthesia Student: Prema Norris [...] Advanced Airway: ETT, Oral #6 (Removed) 02/25/22 0968 Pre-Oxygenation/ Induction: Mask Rapid Sequence Induction?: Mask [...] report was received. PADMINI Chiang Normal [facility] Blood Attestationon 02-26-20 Clinical Research Management Associate Authentication Interface Message Text Blood Attestation ATTESTATION OF INFORMED CONSENT FOR BLOOD The transfusion of blood and/or blood components were discussed with the patient and/or legal factory representative. The risks, benefits and alternatives were reviewed. Questions regarding blood transfusions were answered. The patient /or the patient's legal factory representative agree with the plan for transfusion of blood and/or blood components. Normal [facility] Brief Operative Noteon 02-25 Clinical Research Management Associate Authentication Interface Message Text Brief Operative Note MAIN OR 11 Isabelle Hewitt 46 year old female Surgical Contact Serial Number: [id number] Preoperative Diagnosis: DIONNE (obstructive sleep apnea) [G47.33] Postoperative Diagnosis: * DIONNE (obstructive sleep apnea) [G47.33] Procedures: Surgical CPTs Procedures * PALATOPHARYNGOPLASTY No data filed Surgeon(s): Surgeon(s): Yi Moreno MD Staff: Scrub: Wiley Álvarez Press Set Up Nurse: Mariaa Briseno; Dulce Allred; Babs Wells RN Analysis Tester: Yi Piña MD; Unruly Biggs MD Anesthesia: Consult Anesthesiologist: Maite Youssef MD CAA: Mariaa Meneses CAA ACCOUNTS SPECIALIST: Cari Hurtado APRN-ACCOUNTS SPECIALIST Air Brake Adjuster: Carol Barrera MD Anesthesia Student: Prema Norris [...] Moreno MD 02/25/2022 10:40 AM Normal [facility] Care Plan Noteon 02-25-2022 Clinical Research Management Associate Authentication Interface Message Text Problem: Routine Care: [...] will be met Outcome: Progressing Normal [facility] OP Noteon 02-25-2022 Clinical Research Management Associate Authentication Interface Message Text [id number] Isabelle Hewitt 1975 @PATFNAME@ @PATIENTLASTNAME@ [id number] Preoperative diagnosis: 1. Obstructive sleep apnea 2. [...] to recovery in stable condition. Normal [facility] Progress Noteson 02-25-2022 Clinical Research Management Associate Authentication Interface Message Text No excessive swallowing. [...] with no areas of redness. Normal [facility] URINE HCG-IN OFFICEon 2021 HCG ( test) Ql (U) Negative Negative [facility] Interpretation and review of laboratory results Normal [facility] Negative Internal Control Negative Negative [facility] Positive Internal Control Positive Positive [facility] Telephone Encounteron 2021 Clinical Research Management Associate Authentication Interface Message Text PSE received pre-op COVID test results - NOT DETECTED on 02/23/2022. Document scanned into [employer]. Normal [facility] SARS-CoV-2 (COVID-19) RNA JOHNNIE+probe Ql (Unsp spec) Not detected Normal NOT DETECTED [facility] Comment on above: Result Comment: When [...] for this test is supported by the Fight Manager of Health and Human Service's declaration that [...] used). Performed By: #### C BC #### [facility] [address] [place] [address] Dr. Stephanie Gibbs XR ABDOMEN (KUB) (SINGLE [...] pattern, large colonic fecal Stable left nephrolithiasis [employer] Phone: Radiology Study observation (narrative) [facility] Phone: XR ABDOMEN (KUB) (SINGLE AP VIEW)Ordered By: Adali Gill on 02-19-2022 [employer] Phone: EKG 12 LEAD - PERFORMon 01-21 Diagnosis Normal sinus rhythm Nonspecific T wave abnormality Abnormal ECG No previous ECGs available Confirmed by OLGA MONTES ([id number]) on 02/17/2022 9:51:58 PM [facility] by E[facility] 72 BPM [facility] P wave axis 9 degrees [facility] Interval 154 ms [facility] Q-T interval 416 ms [facility] Q-T interval corrected 455 ms [facility] QRS axis 10 degrees [...] PSE contact information provided, order faxed to [facility] per patient request. Normal [facility] PSE Appt H AND Neftali 06-28-202 2 Clinical Research Management Associate Authentication Interface Message Text Patient was identified by name and date of . Quinton Manzo Bill of rights provided to patient Normal [facility] Patient Instructionson 02-16 Clinical Research Management Associate Authentication Interface Message Text On the morning [...] for pain Please hold all Vitamin E, [place] 3, fish oil and herbal supplements for 1 week prior to surgery Normal [facility] Telephone Encounteron 2021 Clinical Research Management Associate Authentication Interface Message Text Arrangements to be made for pre-op COVID testing per ENT request. Normal [facility] FLUORO FOR SURGICAL PROCEDUR ESon 01-05-2022 Radiology exam is complete. No Radiologist dictation. Please follow up with ordering provider. [facility] RIS CONSOLIDATED , Urineon 2 Beta HCG ( test) Ql (U) Negative NEGATIVE [facility] Comment on above: Specimens with hCG l evels near the threshold of the test (25 mIU/mL) may give a negative or indeterminate result. In such cases, another test should be performed with a new specimen in 48-72 hours. If early is suspected clinically in this setting, correlation with quantitative serum b-hCG level is suggested. [employer] has confirmed the use of plasma for this test. This has not been cleared or approved by the U.S. Food and Drug Administration. The FDA has determined that such clearance is not necessary. [facility] Basic Metabolic Panelon 12-20 Anion gap [Moles/Vol] 8 mmol/L Low 9 - 17 mmol/L [facility] Calcium [Mass/Vol] 8.9 mg/dL 8.6 - 10. 4 mg/dL [facility] Chloride [Moles/Vol] 101 mmol/L 98 - 10 7 mmol/L [facility] CO2 [Moles/Vol] 29 mmol/L 20 - 31 mmol/L [facility] Creatinine [Mass/Vol] 0.87 mg/dL 0.50 - 0.90 mg/dL [facility] GFR >60 >60 mL/min [facility] GFR Non- >60 >60 mL/min [facility] Glucose [Mass/Vol] 98 mg/dL 70 - 99 mg/dL [facility] Interpretation and review of laboratory results Abnormal [facility] Potassium [Moles/Vol] 4.3 mmol/L 3.7 - 5.3 mmol/L [facility] Sodium [Moles/Vol] 138 mmol/L 135 - 144 mmol/L [facility] Urea nitrogen (BldV) [Mass/Vol] 8 mg/dL 6 - 20 mg/dL [facility] Urea nitrogen/Creatinine (Bld) [Mass ratio] 9 [facility] CBC with Auto Differentialon 12-30-2021 Absolute Eos # 0.38 [facility] th Absolute Immature Granulocyte 0.06 [facility] Absolute Lymph # 2.56 [facility] alth Absolute [place] # 0.69 [facility] lth Basophils (Bld) [#/Vol] 0.09 10*3/uL [facility] Basophils/100 WBC (Bld) 1 % 0 - 2 % [facility] Eosinophils/100 WBC (Bld) 4 % 1 - 4 % [facility] Hematocrit (Bld) [Volume fraction] 38.7 % 36.3 - 47.1 % [facility] Hemoglobin.gastrointest inal spec 1 Ql (Stl) 13.0 g/dL 11.9 - 15.1 g/dL [facility] Immature granulocytes/100 WBC (Bld) 1 % High 0 [facility] Interpretation and review of laboratory results Abnormal [facility] Lymphocytes/100 WBC (Bld) 27 % 24 - 43 % [facility] MCH (RBC) [Entitic mass] 33.1 pg 25.2 - 33.5 pg [facility] MCHC (RBC) [Mass/Vol] 33.6 g/dL 28.4 - 34.8 g/dL [facility] MCV (RBC) [Entitic vol] 98.5 fL 82.6 - 102.9 fL [facility] Monocytes/100 WBC (Bld) 7 % 3 - 12 % [facility] NRBC Automated 0.0 0.0 per 100 WBC [facility] Platelet distribution width (Bld) [Ratio] 12.9 % 11.8 - 14.4 % [facility] Platelet mean volume (Bld) [Entitic vol] 9.8 fL 8.1 - 13.5 fL [facility] Platelets (Bld) [#/Vol] 284 10*3/uL [facility] RBC (Bld) [#/Vol] 3.93 10*6/uL Low 3.95 - 5.1 1 m/uL [facility] Segmented neutrophils/100 WBC (Bld) 60 % 36 - 65 % [facility] Segs Absolute [facility]ld[facility] [#/Vol] 9.4 10*3/uL [facility] Laboratory - Chemistry and C hemistry - challengeon 12-30-2021 GFR/1.73 sq M.predicted MDRD (S/P/Bld) [Vol rate/Area] [facility] Comment on above: Average GFR for 40-4 9 years old: 99 mL/min/1.73sq m Chronic Kidney Disease: <60 mL/min/1.73sq m Kidney failure: <15 mL/min/1.73sq m eGFR calculated using average adult body mass. Additional eGFR calculator available at: http://www.[employer]/multiple_crcl_2012.htm Stage 1: Some kidney damage normal GFR Stage 2: Mild kidney damage GFR 60-89 Stage 3: Moderate kidney damage GFR 30-59 Stage 4: Severe kidney damage GFR 15-29 Stage 5: Severe kidney damage GFR <15 ESRD - chronic treatment by dialysis or transplant XR ABDOMEN (KUB) (SINGLE AP VIEW)on 12-22-2021 Nonobstructed bowel-gas pattern. No definite renal or ureteral stones. [facility] CONSOLIDATED EXAMINATION: ONE SUPINE XRAY VIEW(S) OF THE ABDOMEN 12/22/2021 5:15 pm COMPARISON: October 13, 2021 HISTORY: ORDERING SYSTEM PROVIDED HISTORY: Kidney stones TECHNOLOGIST PROVIDED HISTORY: kidney stones FINDINGS: Bowel gas pattern nonobstructed. Renal shadows partially obscured by bowel gas and fecal debris. No definite renal or ureteral stones. No acute osseous abnormality. [facility] Perry Neely DO - [...] pattern. No definite renal or ureteral stones. [employer] Work Phone: Radiology Study observation (narrative) Conjur Phone: XR ABDOMEN (KUB) (SINGLE AP VIEW)Ordered By: Perry Neely on 12-22-2021 [employer] Phone: Office Visit (Cardiology)on 12-02-2021 Follow-up visit [...] Recorded: 02Dec2021 03:38PM Heart Rate72, R Radial Idnrpumh05 Nlequobhc15 Height5 ft 2 in Ptphag493 lb BMI Oibspdmrnv47.47 kg/m2 BSA Calculated1.84 Tobacco Useb) No PHQ-2 [...] Dec 02 2021 5:03PM EST (Author) Normal [employer] Tobacco Screening.on Adult depression screening assessment No -[facility] [employer] [employer] y 250 DO Work Phone: Tobacco use status CPHS b) No M [employer] [employer] DO Work Phone: Office Visit [...] Weight Tips; Status:Complete - Retrospective Authorization; Done: [id number] Health Maintenance Depression Follow-up Visit Outpatient Follow-up Status: Complete - Retrospective Authorization Done: 14Oct2021 SocHx: Former smoker Tobacco Use Screening; Status:Complete; Done: [id number] Tobacco Use Screening; Status:Complete; Done: [id number] Unlinked Stop: Furosemide 40 MG Oral Tablet Stop: Potassium Chloride ER 20 MEQ Oral Tablet Extended Release Patient Instructions By signing my name below, I, Ricco May LPN ,Scribe, attest that this documentation has [...] 1 t (more content not included)... Normal [employer] Tobacco Screening.on 022 Adult depression screening assessment Yes [facility] [place] [facility] 250 DO Work Phone: Tobacco use status CPHS b) No M [facility] [place] y 250 DO Work Phone: Tobacco Screening. 1-Several days [facility] [place] [facility] 250 DO Work Phone: Tobacco Screening. 3-Nearly every day [facility] [place] [facility] 250 DO Work Phone: Tobacco Screening. 0-Not at all [facility] [place] y 250 DO Work Phone: Tobacco Screening. 2-More than half the days [facility] [facility] DO Work Phone: Vital Signs Date Time Vital Sign Value Performing Clinician Facility 06-19-2024 15:37-0400 Body height 157.5 cm Gena Kirby TELEPHONE ADVICE NURSE Work Phone: [facility] 06-19-2024 15:37-0400 Body mass index (BMI) [Ratio] 26.26 kg/m2 Gena Camachodia TELEPHONE ADVICE NURSE Work Phone: [facility] 06-19-2024 15:37-0400 Body temperature 98.6 [degF] Gena Camachodia TELEPHONE ADVICE NURSE Work Phone: [facility] 06-19-2024 15:37-0400 Body weight 65.14 kg Gena Mcdonnellthong TELEPHONE ADVICE NURSE Work Phone: [facility] 06-19-2024 15:37-0400 Diastolic blood pressure 82 mm[Hg] Gena Camachodia TELEPHONE ADVICE NURSE Work Phone: [facility] 06-19-2024 15:37-0400 Heart rate 63 /min Genalonnie Mcdonnellz TELEPHONE ADVICE NURSE Work Phone: [facility] 06-19-2024 15:37-0400 Respiratory rate 18 /min Gena Mcdonnellz TELEPHONE ADVICE NURSE Work Phone: [facility] 06-19-2024 15:37-0400 SaO2% (BldA) [Mass fraction] 97 % Gena Camachodia TELEPHONE ADVICE NURSE Work Phone: [facility] 06-19-2024 15:37-0400 Systolic blood pressure 110 mm[Hg] Gena Camachodia TELEPHONE ADVICE NURSE Work Phone: [facility] 06-11-2024 15:44-0400 Body height 157.48 cm Gena Camahcofreddyz Work Phone: [facility] 06-11-2024 15:44-0400 Body mass index (BMI) [Ratio] 26.2 kg/m2 Gena Keciaz Work Phone: [facility] 06-11-2024 15:44-0400 Body weight 64.86 kg Gena Kirby Work Phone: [facility] 05-16-2024 15:43-0400 Body height 157.48 cm Genalonnie Camachoholz Work Phone: [facility] 05-16-2024 15:43-0400 Body mass index (BMI) [Ratio] 23.8 kg/m2 Genalonnie Camachoholz Work Phone: [facility] 05-16-2024 15:43-0400 Body weight 59 kg Genalonnie Camachoholthong Work Phone: [facility] 04-16-2024 18:26-0400 Body height 157.48 cm [facility] 04-16-2024 18:26-0400 Body mass index (BMI) [Ratio] 23.9 kg/m2 [facility] 04-16-2024 18:26-0400 Body temperature 98.4 [degF] [facility] 04-16-2024 18:26-0400 Body weight 59.42 kg [facility] 04-16-2024 18:26-0400 Diastolic blood pressure 86 mm[Hg] [facility] 04-16-2024 18:26-0400 Heart rate 89 /min [facility] 04-16-2024 18:26-0400 Respiratory rate 18 /min [facility] 04-16-2024 18:26-0400 SaO2% (BldA) [Mass fraction] 96 % [facility] 04-16-2024 18:26-0400 Systolic blood pressure 127 mm[Hg] [facility] 03-13-2024 15:43-0400 Body height 157.48 cm Genalonnie Camachoholthong Work Phone: [facility] 03-13-2024 15:43-0400 Body mass index (BMI) [Ratio] 27.3 kg/m2 Genalonnie Camachoholz Work Phone: [facility] 03-13-2024 15:43-0400 Body weight 68 kg Gena Aichholz Work Phone: [facility] 12-12-2023 15:54-0400 Body height 157.48 cm Gena Aichholz Work Phone: [facility] 12-12-2023 15:54-0400 Body mass index (BMI) [Ratio] 27.4 kg/m2 Gena Aichholz Work Phone: [facility] 12-12-2023 15:54-0400 Body weight 68.03 kg Gena Aichholz Work Phone: [facility] 12-12-2023 15:54-0400 Diastolic blood pressure 97 mm[Hg] Gena Aichholz Work Phone: [facility] 12-12-2023 15:54-0400 Heart rate 103 /min Gena Aichholz Work Phone: [facility] 12-12-2023 15:54-0400 Systolic blood pressure 137 mm[Hg] Gena Aichholz Work Phone: [facility] 11-02-2023 15:32-0400 Body height 157.48 cm Gena Aichholz Work Phone: [facility] 11-02-2023 15:32-0400 Body mass index (BMI) [Ratio] 27.4 kg/m2 Gena Aichholz Work Phone: [facility] 11-02-2023 15:32-0400 Body weight 68.03 kg Gena Aichholz Work Phone: [facility] 11-02-2023 15:32-0400 Heart rate 67 /min Gena Aichholz Work Phone: [facility] 10-14-2023 12:37-0500 Body height 157.48 cm Gena Aichholz Work Phone: [facility] 10-14-2023 12:37-0500 Body mass index (BMI) [Ratio] 28 kg/m2 Gena Aichholz Work Phone: [facility] 10-14-2023 12:37-0500 Body temperature 99.4 [degF] Gena Aichholz Work Phone: [facility] 10-14-2023 12:37-0500 Body weight 69.62 kg Gena Aichholz Work Phone: [facility] 10-14-2023 12:37-0500 Diastolic blood pressure 94 mm[Hg] Gena Aichholz Work Phone: [facility] 10-14-2023 12:37-0500 Heart rate 81 /min Gena Aichholz Work Phone: [facility] 10-14-2023 12:37-0500 Respiratory rate 16 /min Gena Aichholz Work Phone: [facility] 10-14-2023 12:37-0500 SaO2% (BldA) [Mass fraction] 97 % Gena Aichholz Work Phone: [facility] 10-14-2023 12:37-0500 Systolic blood pressure 131 mm[Hg] Gena Aichholz Work Phone: [facility] 09-20-2023 15:30-0500 Body height 157.48 cm Wiley Mcmanus Other [facility] 09-20-2023 15:30-0500 Body mass index (BMI) [Ratio] 30.18 kg/m2 Wiley Mcmanus Other [employer] Other 09-20-2023 15:30-0500 Body weight 74.84 kg Wiley Mcmanus Other [facility] 08-08-2023 13:25-0500 Diastolic blood pressure 89 mm[Hg] Gena Aichholz Work Phone: [facility] 08-08-2023 13:25-0500 Heart rate 75 /min Gena Aichholz Work Phone: [facility] 08-08-2023 13:25-0500 Respiratory rate 16 /min Gena Aichholz Work Phone: [facility] 08-08-2023 13:25-0500 SaO2% (BldA) [Mass fraction] 99 % Gena Aichholz Work Phone: [facility] 08-08-2023 13:25-0500 Systolic blood pressure 117 mm[Hg] Gena Aichholz Work Phone: [facility] 08-08-2023 11:41-0500 Body height 157.48 cm Gena Aichholz Work Phone: [facility] 08-08-2023 11:41-0500 Body weight 77.11 kg Gena Aichholz Work Phone: [facility] 06-30-2023 09:20-0500 Body height 157.48 cm Majo Lyman Other [employer] Other 06-30-2023 09:20-0500 Body mass index (BMI) [Ratio] 30.18 kg/m2 Majo Lyman Other [employer] Other 06-30-2023 09:20-0500 Body weight 74.84 kg Majo Lyman Other [employer] Other 06-30-2023 09:20-0500 Diastolic blood pressure 87 mm[Hg] Majo Lyman Other [employer] Other 06-30-2023 09:20-0500 Systolic blood pressure 115 mm[Hg] Majo Jhonnita Other [employer] Other 06-07-2023 12:30-0400 Body height 157.48 cm Louise Johnson Other [employer] Other 06-07-2023 12:30-0400 Body mass index (BMI) [Ratio] 31.05 kg/m2 Louise Johnson Other [employer] Other 06-07-2023 12:30-0400 Body temperature 98 [degF] Louise Johnson Other [employer] Other 06-07-2023 12:30-0400 Body weight 77.02 kg Louise Johnson Other [employer] Other 06-07-2023 12:30-0400 Diastolic blood pressure 78 mm[Hg] Louise Johnson Other [employer] Other 06-07-2023 12:30-0400 Respiratory rate 18 /min Louise Johnson Other [employer] Other 06-07-2023 12:30-0400 SaO2% (BldA) [Mass fraction] 98 % Louise Johnson Other [employer] Other 06-07-2023 12:30-0400 Systolic blood pressure 117 mm[Hg] Louise Johnson Other [employer] Other 07-17-2022 04:28-0500 Body temperature 98.29 [degF] Rikki Rodrigues DMD, MD Work Phone: [facility] 07-17-2022 04:28-0500 Diastolic blood pressure 80 mm[Hg] Rikki Rodrigues DMD, MD [facility] 07-17-2022 04:28-0500 Heart rate 54 /min Rikki Rodrigues DMD, MD [facility] 07-17-2022 04:28-0500 Respiratory rate 18 /min Rikki Rodrigues DMD, MD Work Phone: [facility] 07-17-2022 04:28-0500 SaO2% (BldA) [Mass fraction] 96 % Rikki Rodrigues DMD, MD Work Phone[facility] 07-17-2022 04:28-0500 Systolic blood pressure 109 mm[Hg] Rikki Rodrigues DMD, MD Work Phone: [facility] 07-14-2022 15:17-0500 Body mass index (BMI) [Ratio] 36.29 kg/m2 Rikki Rodrigues DMD, MD [facility] 07-14-2022 15:17-0500 Body weight 90 kg Rikki Rodrigues DMD, MD Work Phone[facility] 07-14-2022 14:55-0500 Body height 157.5 cm Rikki Rodrigues DMD, MD Work Phone: [facility] 07-14-2022 09:01-0500 SaO2% (BldA) [Mass fraction] 98.8 % Rikki Rodrigues DMD, MD Work Phone: [facility] 07-08-2022 13:59-0500 Body height 157.5 cm Gena MORRIS [facility] 07-08-2022 13:59-0500 Body mass index (BMI) [Ratio] 35.96 kg/m2 Gena MORRIS Work Phone: [facility] 07-08-2022 13:59-0500 Body temperature 97.9 [degF] Gen[facility]IS [facility] 07-08-2022 13:59-0500 Body weight 89.18 kg Gena Holbrook PLASTIC DESIGN APPLIER-DIRECTOR [employer]AIN [facility] 07-08-2022 13:59-0500 Diastolic blood pressure 80 mm[Hg] Gena Holbrook PLASTIC DESIGN APPLIER-DIRECTOR [employer] CHAIN [facility] 07-08-2022 13:59-0500 Heart rate 98 /min Gena Holbrook PLASTIC DESIGN APPLIER-DIRECTOR [employer]AIN Work [facility]: [facility] 07-08-2022 13:59-0500 Respiratory rate 14 /min Gena Peterio PLASTIC DESIGN APPLIER-DIRECTOR [employer]AIN Work Phone[facility] 07-08-2022 13:59-0500 SaO2% (BldA) [Mass fraction] 98 % Gena Holbrook PLASTIC DESIGN APPLIER-DIRECTOR [employer]AIN [facility] 07-08-2022 13:59-0500 Systolic blood pressure 122 mm[Hg] Gena Holbrook APRN-DIRECTOR SUPPL[employer] CHAIN Work [facility] 06-18-2022 15:09-0400 Diastolic blood pressure 89 mm[Hg] Rikki Rodrigues DMD, MD Work Phone: [facility] 06-18-2022 15:09-0400 Heart rate 117 /min Rikki Rodrigues DMD, MD Work Phone: [facility] 06-18-2022 15:09-0400 Systolic blood pressure 120 mm[Hg] Rikki Rodrigues DMD, MD Work Phone: [employer] 06-18-2022 15:07-0400 Body height 157.5 cm Rikki Rodrigues DMD, MD Work Phone: [employer] 06-18-2022 15:07-0400 Body mass index (BMI) [Ratio] 34.75 kg/m2 Rikki Rodrigues DMD, MD Work Phone: [employer] 06-18-2022 15:07-0400 Body weight 86.18 kg Rikki Rodrigues DMD, MD [facility] 05-28-2022 09:00-0400 Body height 157.5 cm [facility] 05-28-2022 09:00-0400 Body mass index (BMI) [Ratio] 34.75 kg/m2 [facility] Rn [facility] 05-28-2022 09:00-0400 Body weight 86.18 kg Pse Rn [facility] 02-26-2022 12:49-0400 Body temperature 97.81 [degF] Yi Moreno MD Work Phone[facility] 02-26-2022 12:49-0400 Diastolic blood pressure 57 mm[Hg] Yi Moreno MD Work Phone: [facility] 02-26-2022 12:49-0400 Heart rate 78 /min Yi Moreno MD Work Phone: [facility] 02-26-2022 12:49-0400 Respiratory rate 18 /min Yi Moreno MD Work Phone: [facility] 02-26-2022 12:49-0400 SaO2% (BldA) [Mass fraction] 92 % Yi Moreno MD Work Phone: [facility] 02-26-2022 12:49-0400 Systolic blood pressure 101 mm[Hg] Yi Moreno MD Work Phone: [facility] 02-25-2022 18:16-0400 Body mass index (BMI) [Ratio] 32.92 kg/m2 Yi Moreno MD Work Phone: [facility] 02-25-2022 18:16-0400 Body weight 81.65 kg Yi Moreno MD Work Phone: [facility] 02-25-2022 08:08-0400 Body height 157.5 cm Yi Moreno MD Work Phone: [facility] 02-17-2022 22:11-0400 Heart rate 72 /min Pierce MORRIS Work Phone: [employer] 02-16-2022 14:19-0400 Body height 157.5 cm Pierce Ramos APRN-DIRECTOR SUPPL[employer] CHAIN Work [facility]: [facility] 02-16-2022 14:19-0400 Body mass index (BMI) [Ratio] 32.92 kg/m2 Pierce Ramos APRN-DIRECTOR [employer] Work Phone: [employer] 02-16-2022 14:19-0400 Body temperature 97.3 [degF] Pierce Ramos APRN-DIRECTOR [employer] Work Phone: [employer] 02-16-2022 14:19-0400 Body weight 81.65 kg Pierce Ramos APRN-DIRECTOR [employer] [facility] 02-16-2022 14:19-0400 Diastolic blood pressure 81 mm[Hg] Pierce Ramos APRN-DIRECTOR SUPPL[employer] CHAIN Work Phone: [employer] 02-16-2022 14:19-0400 Heart rate 74 /min Edflor Ramos PLASTIC DESIGN APPLIER-DIRECTOR [employer] CHAIN Work Phone: [facility] 02-16-2022 14:19-0400 Respiratory rate 16 /min Pierce Ramos APRN-DIRECTOR SUPPL[employer] CHAIN Work Phone: [facility] 02-16-2022 14:19-0400 SaO2% (BldA) [Mass fraction] 96 % Pierce Ramos APRN-DIRECTOR SUPPL[employer] CHAIN Work Phone: [employer] 02-16-2022 14:19-0400 Systolic blood pressure 125 mm[Hg] Pierce Ramos APRN-DIRECTOR SUPPL[employer] CHAIN Work Phone: [facility] 01-11-2022 14:20-0400 Diastolic blood pressure 87 mm[Hg] Yi Moreno MD Work Phone: [employer] 01-11-2022 14:20-0400 Heart rate 86 /min Yi Moreno MD Work [facility]: [facility] 01-11-2022 14:20-0400 Systolic blood pressure 116 mm[Hg] Yi Moreno MD Work Phone: [facility] 01-11-2022 14:12-0400 Body height 157.5 cm Yi Moreno MD Work [facility] 01-11-2022 14:12-0400 Body mass index (BMI) [Ratio] 34.39 kg/m2 Yi Moreno MD Work Phone[facility] 01-11-2022 14:12-0400 Body temperature 98.8 [degF] Yi Moreno MD Work Phone[facility] 01-11-2022 14:12-0400 Body weight 85.28 kg Yi Moreno MD [facility] 01-11-2022 14:12-0400 Respiratory rate 18 /min Yi Moreno MD Work Phone[facility] 01-11-2022 14:12-0400 SaO2% (BldA) [Mass fraction] 100 % Yi Moreno MD Work Phone[facility] 01-05-2022 16:25-0400 Diastolic blood pressure 82 mm[Hg] Bertha Hirsch MD Work Phone: [facility] 01-05-2022 16:25-0400 Heart rate 87 /min Bertha Hirsch MD Work Phone: [facility] 01-05-2022 16:25-0400 Respiratory rate 16 /min Bertha Hirsch MD Work Phone: [facility] 01-05-2022 16:25-0400 SaO2% (BldA) [Mass fraction] 94 % Bertha Hirsch MD Work Phone: [facility] 01-05-2022 16:25-0400 Systolic blood pressure 122 mm[Hg] Bertha Hirsch MD Work Phone: [facility] 01-05-2022 16:00-0400 Body temperature 96.91 [degF] Bertha Hirsch MD Work Phone: [facility] [employer] 01-05-2022 13:35-0400 Body height 157.5 cm Bertha Hirsch MD Work Phone: [facility] [employer] 01-05-2022 13:21-0400 Body mass index (BMI) [Ratio] 34.06 kg/m2 Bertha Hirsch MD Work Phone: [facility] [employer] 01-05-2022 13:21-0400 Body weight 84.46 kg Bertha Hirsch MD Work Phone: [facility] [employer] 12-02-2021 15:38-0400 Body height 157.48 cm Gena Kirby Work Phone: [facility] 250 DO Work Phone: 12-02-2021 15:38-0400 Body mass index (BMI) [Ratio] 33.47 kg/m2 Gena Kirby Work Phone: [facility] 250 DO Work Phone: 12-02-2021 15:38-0400 Body surface area Derived from formula 1.84 m2 Gena Kirby Work Phone: [facility] 250 DO Work Phone: 12-02-2021 15:38-0400 Body weight 83.01 kg Gena Kirby Work Phone: [facility] 250 DO Work Phone: 12-02-2021 15:38-0400 Diastolic blood pressure 70 mm[Hg] Gena Kirby Work Phone: [facility] 250 DO Work Phone: 12-02-2021 15:38-0400 Heart rate 72 /min Gena Kirby Work Phone: [employer] [employer] 250 DO Work Phone: 12-02-2021 15:38-0400 Systolic blood pressure 92 mm[Hg] Gena Kirby Work Phone: [facility] [facility] [employer] 250 DO Work Phone: 11-09-2021 15:15-0400 Body height 157.48 cm Wiley Mcmanus Other [employer] Other 11-09-2021 15:15-0400 Body mass index (BMI) [Ratio] 32.55 kg/m2 Wiley Mcmanus Other [employer] Other 11-09-2021 15:15-0400 Body temperature 98.5 [degF] Wiley Mcmanus Other [employer] Other 11-09-2021 15:15-0400 Body weight 80.74 kg Wiley Mcmanus Other [employer] Other 11-09-2021 15:15-0400 Diastolic blood pressure 81 mm[Hg] Wiley Mcmanus Other [employer] Other 11-09-2021 15:15-0400 SaO2% (BldA) [Mass fraction] 94 % Wiley Mcmanus Other [employer] Other 11-09-2021 15:15-0400 Systolic blood pressure 122 mm[Hg] Wiley Mcmanus Other [employer] Other 10-14-2021 15:34-0500 Diastolic blood pressure 98 mm[Hg] Gena Kirby Work Phone: [employer] [facility] [employer] 250 DO Work Phone: 10-14-2021 15:34-0500 Systolic blood pressure 152 mm[Hg] Gena Jang Aichholz Work Phone: [facility] 250 DO Work Phone: 10-14-2021 15:23-0500 Body height 157.48 cm Gena Jang Aichholz Work Phone: [facility] 250 DO Work Phone: 10-14-2021 15:23-0500 Body mass index (BMI) [Ratio] 33.47 kg/m2 Gena Jang Aichholz Work Phone: [facility] 250 DO Work Phone: 10-14-2021 15:23-0500 Body surface area Derived from formula 1.84 m2 Gena Jang Aichholz Work Phone: [facility] 250 DO Work Phone: 10-14-2021 15:23-0500 Body weight 83.01 kg Gena Jang Aichholz Work Phone: [facility] 250 DO Work Phone: 10-14-2021 15:23-0500 Diastolic blood pressure 98 mm[Hg] Gena Jang Aichholz Work Phone: [facility] 250 DO Work Phone: 10-14-2021 15:23-0500 Heart rate 78 /min Gena Jang Aichholz Work Phone: [facility] 250 DO Work Phone: 10-14-2021 15:23-0500 Systolic blood pressure 160 mm[Hg] Gena Laine Aichholz Work Phone: [facility] 250 DO Work Phone: 10-14-2021 15:23-0500 16 1 Gena Laine Aichholz Work Phone: [facility] 250 DO Work Phone: Comment on above: PHQ-9 TS Encounters Encounter Date Encounter Type Care Provider Facility Start: 06-19-2024 End: 06-19-2024 Office outpatient visit 15 minutes Gena Kirby TELEPHONE ADVICE NURSE Work Phone: [facility] Comment on above: Primary hypertension (CMS/HCC) (Primary Dx); Hypokalemia; DIONNE (obstructive sleep apnea); Other microscopic colitis (CMS/HCC); Irritable bowel syndrome with diarrhea; Overweight (BMI 25.0-29.9); Generalized anxiety disorder with panic attacks (CMS/HCC); Bipolar II disorder (CMS/HCC); Mixed hyperlipidemia (CMS/HCC) Start: 06-19-2024 End: 06-19-2024 ambulatory GENA KIRBY Not Available Start: 06-19-2024 End: 06-19-2024 Bamboo flowsheet Gena Kirby TELEPHONE ADVICE NURSE Work Phone: [facility] Start: 06-19-2024 End: 06-19-2024 Bamboo flowsheet Gena Kirby TELEPHONE ADVICE NURSE Work Phone: [facility] Start: 06-11-2024 End: 06-11-2024 ambulatory Gena Kirby Work Phone: [place] Work Phone: Start: 06-11-2024 End: 06-11-2024 Patient encounter procedure Gena Kirby Work Phone: [facility] Gastroenterology Work Phone: Start: 05-16-2024 End: 05-16-2024 ambulatory Gena Kirby Work Phone: [place] Work Phone: Start: 05-16-2024 End: 05-16-2024 Patient encounter procedure Gena Kirby Work Phone: [facility] Work Phone: Start: 05-08-2024 End: 05-08-2024 Patient encounter procedure Gena Aichholz Work Phone: [facility] [place] Work Phone: Start: 05-08-2024 End: 05-08-2024 ambulatory Gena J Aichholz Work Phone: [facility] Work Phone: Start: 05-02-2024 End: 05-02-2024 ambulatory GENA AICHHOLZ Not Available Start: 04-17-2024 End: 04-17-2024 ambulatory GENA AICHHOLZ Not Available Start: 04-16-2024 End: 04-16-2024 ambulatory [facility] Work Phone: Start: 04-16-2024 End: 04-16-2024 Patient encounter procedure [facility] [place] Work Phone: Start: 04-12-2024 End: 04-12-2024 ambulatory MAJO Andino ALAYNA [facility] Start: 04-02-2024 End: 04-02-2024 ambulatory GENA AICHHOLZ [facility] Start: 03-26-2024 End: 03-26-2024 ambulatory GENA AICHHOLZ Not Available Start: 03-26-2024 End: 05-02-2024 Preoperative state Gena Aichholz TELEPHONE ADVICE NURSE Work Phone: [facility] Start: 03-13-2024 End: 03-13-2024 ambulatory Gena J Aichholz Work Phone: [place] Work Phone: Start: 03-13-2024 End: 03-13-2024 Patient encounter procedure Gena Aichholz Work Phone: [facility] Work Phone: Start: 01-25-2024 End: 01-25-2024 ambulatory GENA JOELTiffHOLZ Not Available Start: 12-29-2023 End: 12-29-2023 ambulatory Gena J Joeltiffholz Work Phone: [facility] Work Phone: Start: 12-29-2023 End: 12-29-2023 Departed Referred Gena Janiceholz Work Phone: [facility] Path Spec [facility] Start: 12-28-2023 End: 12-28-2023 ambulatory MAJO Andino ALAYNA [facility] Start: 12-16-2023 End: 12-16-2023 ambulatory Gena J Joeltiffholz Work Phone: [facility] Work Phone: Start: 12-16-2023 Non-patient / Non-visit Gena A ricardoz Work Phone: [facility] Work Phone: Start: 12-16-2023 End: 12-16-2023 Patient encounter procedure Gena Janiceholz Work Phone: [facility] Work Phone: Start: 12-14-2023 End: 12-14-2023 ambulatory Gena J Joelhholz Work Phone: [facility] Work Phone: Start: 12-14-2023 End: 12-14-2023 Patient encounter procedure Gena Joeltiffholz Work Phone: [facility] Work Phone: Start: 12-12-2023 End: 12-12-2023 ambulatory Gena J Aichholz Work Phone: [facility] Work Phone: Start: 12-12-2023 End: 12-12-2023 Patient encounter procedure Gena Aichholz Work Phone: [facility] Gastroenterology Work Phone: Start: 11-24-2023 End: 11-24-2023 ambulatory MAJO Andino [facility] Start: 11-22-2023 End: 11-22-2023 ambulatory AUREA MARC Not Available Start: 11-02-2023 End: 11-02-2023 Patient encounter procedure Gena Joeltiffdia Work Phone: [facility] Gastroenterology Work Phone: Start: 10-14-2023 End: 10-14-2023 ambulatory Gena Andino Joeltiffholz Work Phone: [place] Work Phone: Start: 10-14-2023 End: 10-14-2023 Patient encounter procedure Gena Kofi Work Phone: [facility] Ur[facility] [place] Work Phone: Start: 10-11-2023 End: 10-11-2023 ambulatory MAJO Andino [facility] Start: 09-29-2023 End: 10-02-2023 ambulatory ELIN BALLARD [facility] Start: 09-20-2023 End: 09-20-2023 Patient encounter procedure Gena Joeltiffdia Work Phone: [facility] Work Phone: Start: 09-20-2023 End: 09-20-2023 ambulatory Gena J Joelhholz Work Phone: [facility] Work Phone: Start: 09-20-2023 Office outpatient vi sit 25 minutes Wiley Mcmanus [facility] Out[facility] Start: 09-20-2023 End: 09-20-2023 Patient encounter procedure Gena Joeltiffholz Work Phone: [facility]- Start: 09-15-2023 End: 09-16-2023 ambulatory ELIN Frey ELIO [facility] Start: 08-26-2023 End: 08-26-2023 ambulatory MAJO CATALAN [facility] Start: 08-24-2023 End: 08-24-2023 ambulatory GENA JANICEHOLZ Not Available Start: 08-12-2023 End: 08-12-2023 ambulatory Imad Asaad Other [employer] Other Start: 08-12-2023 Telephone encounter Imad Asaad [facility] Start: 08-10-2023 End: 08-10-2023 ambulatory Imad Asaad Other [facility] [employer] Other Start: 08-10-2023 Telephone encounter Imad Asaad [facility] Start: 08-08-2023 End: 08-08-2023 Admission to same day surgery center Gena Aichholz Work Phone: [facility] Work Phone: Start: 08-08-2023 End: 08-08-2023 ambulatory Gena J Aichholz Work Phone: [facility] Work Phone: Start: 06-30-2023 End: 06-30-2023 Patient encounter procedure Gena Aichholz Work Phone: [facility] [place] Work Phone: Start: 06-30-2023 End: 06-30-2023 ambulatory Gena J Aichholz Work Phone: [facility] [employer] Other Start: 06-30-2023 Office outpatient ne w 30 minutes Majo Lyman [facility] Start: 06-30-2023 End: 06-30-2023 Patient encounter procedure Gena Aichholz Work Phone: [facility] Work Phone: Start: 06-07-2023 End: 06-07-2023 ambulatory Louise Johnson Other [employer] Other Start: 06-07-2023 Encounter by nat Johnson [facility] Start: 06-07-2023 Office outpatient vi sit 25 minutes Louise Johnson [facility] Start: 03-16-2023 End: 03-16-2023 ambulatory Gena Kirby Work Phone: [facility] Work Phone: Start: 03-16-2023 End: 03-16-2023 Patient encounter procedure Gena Kirby Work Phone: [facility] Work Phone: Start: 03-08-2023 End: 03-11-2023 ambulatory [facility]ARD [facility] Start: 01-26-2023 Telephone encounter Rikki norris DMD, MD Work Phone: [facility] Start: 01-18-2023 ambulatory BRIAN KIRBY Facil ity:H1 Start: 12-13-2022 End: 12-14-2022 ambulatory ELIN Frey CELESTINOSAIMA [facility] Start: 12-13-2022 End: 12-13-2022 Subsequent hospital visit by physician Gena Kirby Work Phone: [facility] Laboratory Comment on above: OAB (overactive blad darinel); Urge incontinence; Frequency of urination Start: 11-26-2022 End: 11-26-2022 ambulatory DIRECTOR SUPPLY CHAIN GENA KIRBY Facility:H1 Start: 11-16-2022 End: 11-16-2022 ambulatory Gena Kirby Work Phone: [facility] Work Phone: Start: 11-16-2022 End: 11-16-2022 Patient encounter procedure Gena Kirby Work Phone: [facility]-Sleep Lab Work Phone: Start: 11-12-2022 End: 11-12-[address] OSWALD HARRINGTON . Facility: Start: 11-04-2022 Telephone encounter Yi wylie MD Work Phone: [facility] Otolaryngology (ENT) Start: 11-01-2022 Encounter for preprocedural cardiovascular examination DR OSWALD HARRINGTON . [facility] Start: 11-01-2022 Telephone encounter Rikki norris DMD, MD Work Phone: [facility] Start: 10-28-2022 End: 10-29-[address] OSWALD HARRINGTON . Facility: Start: 10-28-2022 End: 10-29-2022 Encounter for preprocedural cardiovascular examination DR OSWALD HARRINGTON . Facility: Start: 10-19-2022 End: 10-19-2022 ambulatory [facility] PROVIDER [facility] Start: 09-24-[address] OSWALD HARRINGTON . Facili ty: Start: 09-21-[address] OSWALD HARRINGTON . Facili ty: Start: 09-02-2022 End: 09-03-2022 ambulatory BRIAN KIRBY Facility: Start: 08-30-2022 ambulatory UNKNOWN PROVIDER [facility] Start: 08-30-2022 End: 08-30-2022 Follow-up encounter Rikki Rodrigues DMD, MD Work Phone: [facility] Start: 08-30-2022 End: 08-30-2022 Patient encounter procedure Rikki Rodrigues DMD, MD Work Phone: [facility] Comment on above: Post-operative state (Primary Dx) Start: 08-12-2022 End: 08-12-2022 Subsequent hospital visit by physician Gena Kirby [facility] Comment on above: Dysuria Start: 08-11-2022 Telephone encounter Jerel Villegas DDS Work Phone: [facility] Start: 08-02-2022 Telephone encounter Rikki norris DMD, MD Work Phone: [facility] Start: 07-28-2022 Telephone encounter Mikal amador CHAU Work Phone: [facility] Start: 07-23-2022 End: 07-23-2022 Follow-up encounter iRkki Rodrigues DMD, MD Work Phone: [facility] Start: 07-23-2022 End: 07-23-2022 Telemedicine consultation with patient Rikki Rodrigues DMD, MD Work Phone: [facility] Comment on above: DIONNE (obstructive sle ep apnea) (Primary Dx) Start: 07-23-2022 End: 07-23-2022 ambulatory UNKNOWN PROVIDER Facility:[facility] Start: 07-14-2022 End: 07-17-2022 Evaluation and management of inpatient [facility] Facility:[facility] Start: 07-14-2022 End: 07-15-2022 ambulatory [facility] Facility:[facility] Start: 07-14-2022 End: 07-14-2022 Subsequent hospital visit by physician Rikki Rodrigues DMD, MD Work Phone: [facility] Radiology Comment on above: Arrived Start: 07-14-2022 End: 07-17-2022 Evaluation and management of inpatient Rikki Rodrigues DMD, MD Work Phone: [facility] [address] Comment on above: DIONNE (obstructive sle ep apnea) (Primary Dx); Pain Start: 07-09-2022 Telephone encounter Yi wylie MD Work Phone: [facility] Otolaryngology (ENT) Comment on above: Patient questions/co ncerns (Patient asking what next step is after jaw surgery) Start: 07-08-2022 End: 07-09-2022 ambulatory UNKNOWN PROVIDER Facility:[facility] Start: 07-08-2022 End: 07-09-2022 Office outpatient new 45 minutes Gena MORRIS Work Phone: [facility] Pre Surgical Evaluation Comment on above: Pre-op testing (Prim amy Dx); Body mass index (BMI) 35.0-35.9, adult Start: 07-08-2022 End: 07-09-2022 Patient encounter status Gena Holbrook PLASTIC DESIGN APPLIER-[facility] Work Phone: [facility] Surgical Evaluation Start: 07-07-2022 End: 07-08-2022 ambulatory DIRECTOR SUPPLY CHAIN GENA LEALDIA Facility: Start: 07-06-2022 End: 07-06-2022 Patient encounter procedure Pierce Ramos PLASTIC DESIGN APPLIER-[facility] Work Phone: [facility] Pre-Surgical Evaluation Comment on above: ENCOUNTER OPENED IN ERROR (Primary Dx) Start: 07-05-2022 Telephone encounter Mary guy RN [facility] Evaluation Comment on above: Pre-surgical Evaluat ion (Pre-op COVID testing not needed ) Start: 07-02-2022 End: 07-06-2022 ambulatory UNKNOWN PROVIDER Facility:[facility] Start: 07-02-2022 End: 07-02-2022 Follow-up encounter Rikki Rodrigues DMD, MD Work Phone: [facility] Start: 07-02-2022 End: 07-02-2022 Patient encounter procedure Rikki Rodrigues DMD, MD Work Phone: [facility] Comment on above: DIONNE (obstructive sle ep apnea) (Primary Dx) Start: 06-18-2022 End: 06-20-2022 Office outpatient new 30 minutes Rikki Rodrigues DMD, MD Work Phone: [facility] Comment on above: Obstructive sleep ap shaun (Primary Dx); DIONNE (obstructive sleep apnea); Body mass index (BMI) 34.0-34.9, adult Start: 06-18-2022 End: 06-20-2022 Orders Only Saleem Mi DMD Work Phone: [facility] Start: 06-15-2022 End: 06-15-2022 ambulatory UNKNOWN PROVIDER Facility:[facility] Start: 06-03-2022 End: 06-03-2022 ambulatory YI MORENO Facility:[facility] Start: 05-31-2022 End: 05-31-2022 ambulatory Isabel Popeault Other [facility] [employer] Other Start: 05-31-2022 Office outpatient vi sit 5 minutes Isabel Sin [facility] Start: 05-28-2022 Telephone encounter Mary guy RN [facility] Evaluation Comment on above: Pre-surgical Evaluat ion (Pre-op COVID testing) Start: 05-28-2022 ambulatory UNKNOWN PROVIDER Facili ty:[facility] Start: 05-28-2022 End: 05-28-2022 Nursing evaluation of patient and report Pse Rn [facility] Evaluation Comment on above: Preop examination (P rimary Dx) Start: 05-28-2022 End: 05-28-2022 Preprocedural examination done Pse Rn [facility] Start: 05-26-2022 Telephone [facility] Comment on above: Pre-surgical Evaluat ion (Pre-op COVID testing) Start: 05-19-2022 End: 05-19-2022 ambulatory Gena Kirby Work Phone: [facility] Work Phone: Start: 05-19-2022 End: 05-19-2022 Patient encounter procedure Gena Kirby Work Phone: [facility]-Sleep Lab Start: 05-18-2022 Letter encounter Yi saunders MD Work Phone: [facility] Otolaryngology (ENT) Start: 05-17-2022 End: 05-18-[address] WILEY POE Facility:[facility]1 Start: 05-11-2022 End: 05-12-[address] OSWALD HARRINGTON . Facility:[facility]1 Start: 05-07-2022 End: 05-08-[address] OSWALD HARRINGTON . Facility:[facility]1 Start: 03-29-2022 End: 03-30-2022 Phys/qhp telephone evaluation 11-20 min Yi Moreno MD Work Phone: [facility] Otolaryngology (ENT) Comment on above: DIONNE (obstructive sle ep apnea) (Primary Dx) Start: 03-29-2022 End: 03-30-2022 ambulatory UNKNOWN PROVIDER Facility:[facility] Start: 03-09-2022 End: 03-10-2022 ambulatory DIRECTOR SUPPLY CHAIN GENA CAMACHOFREDDYThong Facility:H1 Start: 03-09-2022 Telephone encounter Yi wylie MD Work Phone: [facility]ol[facility] (ENT) Start: 02-25-2022 End: 02-26-2022 Evaluation and management of inpatient YI MORENO Facility:[facility] Start: 02-25-2022 End: 02-26-2022 Subsequent hospital visit by physician Yi Moreno MD Work Phone: Inpatient 8B Comment on above: Encounter for carmela woodward testing for severe acute respiratory syndrome coronavirus 2 (SARS-CoV-2) (Primary Dx); DIONNE (obstructive sleep apnea); Postoperative pain Start: 02-24-2022 Telephone encounter Mary guy RN [facility] Comment on above: Pre-surgical Evaluat ion (Pre-op COVID testing - results) Start: 02-23-2022 End: 02-24-[address] DOCTOR ABDULLAHI Facility:H1 Start: 02-19-2022 End: 02-21-2022 Subsequent hospital visit by physician Yaneth Sharp Dr [address] Radiology Comment on above: Ureteral stone Start: 02-17-2022 Telephone encounter Mary guy RN [facility] Evaluation Comment on above: Pre-surgical Evaluat ion (Pre-op COVID testing) Start: 02-16-2022 End: 02-18-2022 ambulatory UNKNOWN PROVIDER Facility:[facility] Start: 02-16-2022 Encounter for other preprocedural examination UNKNOWN PROVIDER [facility] Start: 02-16-2022 End: 02-17-2022 Office outpatient new 45 minutes Pierce Ramos APRN-DIRECTOR SUPPLY CHAIN Work Phone: [facility] Pre-Surgical Evaluation Comment on above: Preop testing (Prima ry Dx); Abnormal electrocardiogram (ECG) (EKG); Body mass index (BMI) 32.0-32.9, adult Start: 02-16-2022 End: 02-17-2022 Patient encounter status Pierce Ramos PLASTIC DESIGN APPLIER-DIRECTOR SUPPLY CHAIN Work Phone: [facility] Pre-Surgical Evaluation Start: 02-16-2022 Telephone encounter Yi wylie MD Work Phone: [facility] Otol[facility]ology (ENT) Start: 02-11-2022 Telephone encounter Mary guy RN [facility] Evaluation Comment on above: Pre-surgical Evaluat ion (Pre-op COVID testing) Start: 02-04-2022 Letter encounter Yi saunders MD Work Phone: [facility] Otol[facility]ology (ENT) Start: 01-12-2022 End: 01-12-2022 ambulatory Wiley Mcmanus Other [employer] Other Start: 01-12-2022 Telephone encounter Wiley Mcmanus [facility] Sleep Lab Start: 01-11-2022 End: 01-11-2022 Office consultation new/estab patient 60 min Yi Moreno MD Work Phone: [facility] Otolaryngology (ENT) Comment on above: DIONNE (obstructive sle ep apnea) (Primary Dx); Body mass index (BMI) 34.0-34.9, adult Start: 01-05-2022 End: 01-05-2022 Subsequent hospital visit by physician Bertha Hirsch MD Work Phone: [facility] OR Start: 12-30-2021 End: 12-30-2021 Patient encounter status Gena Kirby Work Phone: [facility] Start: 12-30-2021 End: 12-30-2021 Subsequent hospital visit by physician Gena Kirby Work Phone: [facility] Comment on above: Pre-op testing Start: 12-22-2021 End: 12-24-2021 Subsequent hospital visit by physician [facility] Radiology Comment on above: Kidney stones Start: 12-02-2021 Office outpatient vi sit 10 minutes Gena Jo Kofi Work Phone: [facility] Heart-[place] [address] DO Work Phone: Start: 11-09-2021 End: 11-09-2021 ambulatory Wiley Mcmanus Other [facility] [employer] Other Start: 11-09-2021 Office outpatient vi sit 40 minutes Wiley Mcmanus [facility] Start: 10-14-2021 Office outpatient vi sit 25 minutes Genalonnie Kirby Work Phone: [facility] Heart-[place] 250 DO Work Phone: Procedures Date Procedure Procedure Detail Performing Clinician Start: 05-08-2024 Diagnostic radiography of abdomen Gena Lonnie ichholz Work Phone: Start: 12-20-2023 Mammography Gena Kofi TELEPHONE ADVICE NURSE Work Phone: Start: 12-14-2023 End: 12-14-2023 Diagnostic radiography of abdomen Gena A ichholz Work Phone: Start: 10-14-2023 COVID/Influenza PCR (POC) Gena Mcdonnellz Work Phone: Start: 08-08-2023 End: 08-08-2023 Colonoscopy Gena Aichholz Work Phone: Start: 12-13-2022 Urnls dip stick/tablet reagent auto microscopy Elin Ballard PLASTIC DESIGN APPLIER - DIRECTOR SUPPLY CHAIN Work Phone: Start: 08-12-2022 Urnls dip stick/tablet [...] Start: 07-15-2022 Glucose blood reagent strip Rikki frye DMD, MD Work Phone: Start: 07-15-2022 Blood [...] Urine test visual color cmprsn meths Saleem Hiwotjah RITCHIE Work Phone: Start: 07-14-2022 Glucose blood reagent strip Rikki frey DMD, MD Work Phone: Start: 07-08-2022 Blood typing serologic abo Gena DEL CASTILLO RN-[facility] Work Phone: Start: 07-08-2022 Blood count complete automated Gena Holli vasquez PLASTIC DESIGN APPLIER-[facility] Work Phone: Start: 07-08-2022 Blood typing, ABO, Rho(D) and RBC antibody screening Gena Holbrook PLASTIC DESIGN APPLIER-[facility] Work Phone: Start: 06-18-2022 panoramic radiographic image Rikki love DMD, MD Work Phone: Start: 02-25-2022 End: 02-25-2022 UVULOPALATOPHARYNGOPLASTY Yi Moreno MD Work Phone: Start: 02-25-2022 Urine test visual color cmprsn migel Moreno MD Work Phone: Start: 02-19-2022 Radiologic exam abdomen 1 view Jerel D Do rkoskie PA-C Work Phone: Start: 02-16-2022 Ecg routine ecg w/least 12 lds trcg only w/o i&r Pierce Ramos PLASTIC DESIGN APPLIER-[facility] Work Phone: Start: 01-11-2022 Laryngoscopy flexible diagnostic Yi Moreno MD Work Phone: Start: 01-05-2022 Fluoroscopy during operation Bertha john MD Work Phone: Start: 01-05-2022 Urine test visual color cmprsn meths Majo Rodrigues PLASTIC DESIGN APPLIER - ACCOUNTS SPECIALIST Start: 12-30-2021 Basic metabolic panel calcium total Jerel D Mookieie PA-C Work Phone: Start: 12-22-2021 Radiologic exam abdomen 1 view Jerel D Do rkoskie PA-C Work Phone: Start: 10-25-2017 Microscopic observation [Identifier] in Cervix by Cyto stain Gena Kirby TELEPHONE ADVICE NURSE Work Phone: section Gena Jang Aic hholz Work Phone: Cholecystectomy Gena Camacho dia Work Phone: Dental surgical procedure Cassandra Jang Aichholz Work Phone: History of tonsillectomy History of tonsillectomy Gena Mcdonnellz Work Phone: Lithotripsy Gena Camachohol z Work Phone: Plan of Treatment Date Care Activity Detail Author Start: 08-08-2033 Screening for malignant neoplasm of colon [facility] Start: 04-13-2028 Screening for malignant neoplasm of cervix [facility] Start: 2025 Shingles (RZV) Vaccine (1 of 2) Shingles (RZV) Vaccine (1 of 2) [facility] Start: 04-08-2025 End: 04-08-2025 Patient encounter procedure 04/08/2025 2:50 PM EDT Office Visit [facility]ATED [facility]IN [facility] ENDOCRINOLOGY [address] [place] [address] Rhina Amor MD [address] [place] [address] LOCATED [facility]IN [facility] ENDO[facility] Start: 12-19-2024 Screening for malignant neoplasm of breast Mammogram [facility] Start: 11-22-2024 End: 11-22-2024 Patient encounter procedure 11/22/2024 3:30 [address]T [address] [facility] [address] [facility] [place] [address] Aurea Marc PA [address] [place] [address] [facility] Start: 06-19-2024 End: 06-19-2024 Patient encounter procedure 06/19/2024 3:20 PM EDT Office [facility] [address] [place] [phone] Gena Kirby, TELEPHONE ADVICE NURSE [address] [facility] [place] [address] Hypokalemia (Primary Dx) [facility] M Comment on above: Hypokalemia (Primary Dx) Start: 06-19-2024 End: 06-19-2025 Basic metabolic 1998 panel - Serum or Plasma Basic metabolic panel Lab Routine Hypokalemia Expected: 06/19/2024 (Approximate), Expires: 06/19/2025 [facility] Work Phone: Comment on above: Expected: 06/19/2024 (Approximate), Expi res: 06/19/2025 Start: 08-08-2023 [facility] Start: 03-22-2023 Influenza vaccination Flu vaccine (Season Ended) [facility] Start: 02-21-2023 End: 02-21-2023 Patient encounter procedure 02/21/2023 [facility] Start: 12-21-2022 Cholesterol [Mass/volume] in Serum or Plasma Cholesterol [facility] Start: 10-25-2022 Screening for malignant neoplasm of cervix Pap Smear [facility] Start: 10-19-2022 End: 10-19-2022 Patient encounter procedure 10/19/2022 Office Visit Ent-Otolaryngology Yi Moreno MD [address] [place] [phone] [facility] Otolaryngology (ENT) Start: 08-13-2022 End: 08-13-2022 Patient encounter procedure 08/13/2022 Office Visit Or al Surgery Rikki Rodrigues DMD, MD [address] [place] [id number] [facility] Oral Surgery Start: 07-30-2022 End: 07-30-2022 Patient encounter procedure 07/30/2022 Office Visit Or al Surgery Rikki Rodrigues DMD, MD [address] [place] [phone] [facility] Start: 07-23-2022 End: 07-23-2022 Telemedicine consultation with patient 07/23/2022 Telemedicine Oral Surgery Rikki Rodrigues DMD, MD [address] [place] [address] [facility] Start: 07-14-2022 End: 07-14-2022 Admission to same day surgery center 07/14/2022 Surgery General Surgery Rikki Rodrigues DMD, MD [address] [place] [id number] [facility] OR Comment on above: LEFORTE [...] Encounter General Surgery Rikki Rodrigues DMD, MD [address] [place] [phone] [facility] OR Start: 07-14-2022 End: 07-14-2022 Admission to same day surgery center 07/14/2022 Surgery General Surgery Rikki Rodrigues DMD, MD [address] [place] [id number] [facility]STEOT[facility] OR Comment on above: [facility]STEOTOM[facility] Start: 07-14-2022 End: 07-14-2022 Anesthesia consultation 07/14/2022 Anesthesia Event General Surgery Ki Atwood MD [address] [place] [phone] [facility] Start: 07-14-2022 End: 07-14-2022 [...] Encounter General Surgery Rikki Rodrigues DMD, MD [address] [place] [phone] [facility] Start: 07-08-2022 End: 07-08-2022 Patient encounter procedure 07/08/2022 Office Visit Presurgical Evaluation Gena Holbrook, PLASTIC DESIGN APPLIER-DIRECTOR SUPPLY CHAIN [address] [place] [phone] [facility] Pre Surgical Evaluation Start: 07-06-2022 End: 07-06-2022 Patient encounter procedure 07/06/2022 Office Visit Presurgical Evaluation Pierce Ramos, PLASTIC DESIGN APPLIER-DIRECTOR SUPPLY CHAIN [address] [place] [id number] Preop testing (Primary Dx) [facility] Pre-Surgical Evaluation Comment on above: Preop testing (Primary Dx) Start: 06-15-2022 End: 06-15-2022 Patient encounter procedure 06/15/2022 Office Visit Ent-Otolaryngology Yi Moreno MD [address] [place] [phone] [facility] Otolaryngology (ENT) Start: 06-03-2022 End: 06-03-2022 Admission to same day surgery center 06/03/2022 Surgery Ambulatory Surgery Yi Moreno MD [address] [place] [phone] BRONCHOSCOPY, FLEXIBLE, DRUG INDUCED SLEEP ENDOSCOPY (DISE) [facility] OR PACU Comment on above: BRONCHOSCOPY, FLEXIBLE, DRUG INDUCED SLE EP ENDOSCOPY (DISE) Start: 06-03-2022 End: 06-03-2022 BRONCHOSCOPY, FLEXIBLE, DRUG INDUCED SLEEP ENDOSCOPY (DISE) BRONCHOSCOPY, FLEXIBLE, DRUG INDUCED SLEEP ENDOSCOPY (DISE) Routine scheduled DIONNE (obstructive sleep apnea) 06/03/2022 8:39 AM EDT PACU Procedure Rooms Start: 06-03-2022 Subsequent hospital visit by physician [facility] PACU Comment on above: Encounter for laboratory testing for sev ere acute respiratory syndrome coronavirus 2 (SARS-CoV-2) (Primary Dx) Start: 05-28-2022 End: 05-28-2022 Nursing evaluation of patient and report 05/28/2022 Nurse Visit Presurgical Evaluation [facility] Evaluation Start: 05-22-2022 Influenza vaccination Influenza Vaccine (#1) [facility] Start: 04-22-2022 Influenza vaccination [facility] Start: 03-29-2022 End: 03-29-2022 Telemedicine consultation with patient 03/29/2022 Telemedicine Ent-Otolaryngology Yi Moreno MD [address] [place] [address] [facility] Otolaryngology (ENT) Start: 03-24-2022 FUV, Provider: Eileen Nichols, Status: Pen, Time: 3:50 PM FUV, Provider: Eileen Nichols, Status: Pen, Time: 3:50 PM [place] [address] DO Work Phone: Start: 03-22-2022 Influenza vaccination [facility] Start: 02-25-2022 End: 02-25-2022 Admission to same day surgery center 02/25/2022 Surgery General Surgery Yi Moreno MD [address] [place] [address] UVULOPAL[facility]OP[facility]ARYNGOPLASTY [facility] Comment on above: UVULOPALATOPHARYNGOPLASTY Start: 02-25-2022 Subsequent hospital visit by physician [facility] OR Comment on above: Encounter for laboratory testing for sev ere acute respiratory syndrome coronavirus 2 (SARS-CoV-2) (Primary Dx) Start: 02-25-2022 End: 02-25-2022 UVULOPALATOPHARYNGOPLASTY PERIOPERATIVE SERVICES Start: 02-25-2022 End: 02-25-2022 Admission to same day surgery center 02/25/2022 Surgery General Surgery Yi Moreno MD [address] [place] [id number] UVULOPALATOPHARYNGOPLASTY [facility] Comment on above: UVULOPALATOPHARYNGOPLASTY Start: 02-25-2022 Subsequent hospital visit by physician 02/25/2022 Hospital Encounter General Surgery Yi Moreno MD [address] [place] [id number] Encounter for laboratory testing for severe acute respiratory syndrome coronavirus 2 (SARS-CoV-2) (Primary Dx) [facility] Comment on above: Encounter for laboratory testing for sev ere acute respiratory syndrome coronavirus 2 (SARS-CoV-2) (Primary Dx) Start: 02-25-2022 End: 02-25-2022 UVULOPALATOPHARYNGOPLASTY UVULOPALATOPHARYNGOPLASTY Routine scheduled DIONNE (obstructive sleep apnea) 02/25/2022 9:20 AM EDT PERIOPERATIVE SERVICES Start: 02-23-2022 End: 02-23-2022 Patient encounter procedure 02/23/2022 Office Visit Urology Elin Ballard, PLASTIC DESIGN APPLIER - DIRECTOR SUPPLY CHAIN [address] [facility] [address] [place] [address] [facility] Start: 02-16-2022 End: 02-16-2022 Patient encounter procedure 02/16/2022 Office Visit Presurgical Evaluation Pierce Ramos, PLASTIC DESIGN APPLIER-DIRECTOR SUPPLY CHAIN [address] [place] [address] [facility] Pre-Surgical Evaluation Start: 01-08-2022 End: 01-08-2022 Patient encounter procedure 01/08/2022 Office Visit Urology Elin Ballard, PLASTIC DESIGN APPLIER - DIRECTOR SUPPLY CHAIN [address] [facility] [address] [place] [phone] [facility] Start: 01-05-2022 End: 01-05-2022 Cysto/uretero w/lithotripsy &indwell stent insrt CYSTOSCOPY URETEROSCOPY [facility]ID[facility]ONES 01/05/2022 2:[address] [facility] Start: 12-06-2021 COVID-19 Vaccine (3 - Booster for Pfizer series) COVID-19 Vaccine (3 - Booster for Pfizer series) [facility] Start: 12-01-2021 NURSEVST, Provider: AUSTIN [employer] OFFICE WORKER 1,[id number], Status: Pen, Time: 3:15 PM NURSEVST, Provider: AUSTIN W[employer] OFFICE WORKER 1,[id number], Status: Pen, Time: 3:15 PM [place] [address] DO Work Phone: Start: 09-02-2021 COVID-19 Vaccine (3 - Booster for Pfizer series) COVID-19 Vaccine (3 - Booster for Pfizer series) [facility] Start: 2020 Cholesterol [Mass/volume] in Serum or Plasma Cholesterol [facility] Start: 2020 Screening for malignant neoplasm of colon [facility] Start: 2015 Lipid panel Lipids [facility] Start: 2015 Screening for malignant neoplasm of breast Mammography [facility] Start: 2010 Diabetes screen Diabetes screen [facility] Start: 2005 Screening for malignant neoplasm of cervix [facility] Start: 1996 Screening for malignant neoplasm of cervix Pap smear [facility] Start: 1994 DTaP/Tdap/Td vaccine (1 - Tdap) DTaP/Tdap/Td vaccine (1 - Tdap) [facility] Start: 1993 Creatinine measurement Creatinine [facility] Start: 1993 Hepatitis C screening [facility] Start: 1993 Potassium [Moles/volume] in Serum or Plasma Potassium [facility] Start: 1993 Tetanus + diphtheria + acellular pertussis vaccine (product) Tdap Booster [facility] Start: 1990 HIV screening [facility] Start: 1987 Depression Monitoring Depression Monitoring [facility] Start: 1975 Screening for malignant neoplasm of colon [facility] Assay of magnesium MAGNESIUM Lab STAT Daily until discontinued starting 07/16/2022, 2 completed [facility] Comment on above: Daily until discontinued [...] (DISE) Routine scheduled DIONNE (obstructive sleep apnea) [facility] Calprotectin [Mass/m ass] in [facility] CBC panel - Blood by Automated count COMPLETE BLOOD COUNT Lab STAT Daily until discontinued starting 07/16/2022, 2 completed [employer] Work Phone: Comment on above: Daily until discontinued starting 2021, 2 completed End: 08-12-2022 Culture, Urine [employer] Work Phone: Comment on above: 1 Occurrences starting 08/12/2022 until 08/12/2022 End: 12-13-2022 Culture, Urine [employer] Work Phone: Comment on above: 1 Occurrences starting 12/13/2022 until 12/13/2022 Diagnostic radiograp hy of abdomen [facility] Diagnostic radiograp hy of abdomen [facility] End: 07-14-2022 Ecg routine ecg w/least 12 lds trcg only w/o i&r EKG 12 LEAD - PERFORM MUSE Routine Once for 1 Occurrences starting 07/14/2022 until 07/14/2022 [employer] Work Phone: Comment on above: Once for 1 Occurrences starting 07/14/20 until 07/14/2022 Elastase.pancreatic [Mass/mass] in Stool [facility] Endomysial antibody IgA level [facility] Gliadin peptide IgA Ab [Units/volume] in Serum [facility] Gliadin peptide IgG Ab [Units/volume] in Serum [facility] HIV 1+2 Ab+HIV1 p24 Ag [Presence] in Serum or Plasma by Immunoassay [facility] IgA [Mass/volume] in Serum or Plasma [facility] End: 01-05-2022 INITIATE PACU OXYGEN THERAPY PROTOCOL Initiate PACU Oxygen Therapy Protocol Respiratory Care Routine Continuous until discontinued starting 01/05/2022 [facility] Comment on above: Continuous until discontinued starting 0 01/05/2022 Oxygen therapy [[facility] Data Set] Initiate Oxygen Therapy Protocol Respiratory Care Routine As Needed until discontinued starting 01/05/2022 [facility] Work Phone: Comment on above: As Needed until discontinued starting End: 02-25-2022 Palatopharyngoplasty PALATOPHARYNGOPLASTY Procedures Routine One time for 1 Occurrences starting 02/25/2022 until 02/25/2022 [employer] Comment on above: One time for 1 Occurrences starting 02/2022 until 02/25/2022 Patient Education [facility] Work Phone: Rcnstj midface lefor t i 1 piece w/o bone graft RECONSTRUCTION MIDFACE, LEFORT I; 1 PIECE, W/O BONE GRAFT Procedures Routine DIONNE (obstructive sleep apnea) Ordered: 07/14/2022 [employer] Work Phone: Comment on above: Ordered: 07/14/2022 Rcnstj mndblr rami&/ bdy sgtl splt w/int rgd fi RECONSTRUCTION, MANDIBULAR RAMI &/OR BODY, SAGITTAL SPLIT; W/INT RIGID FIXATION Procedures Routine DIONNE (obstructive sleep apnea) [facility] on above: Ordered: 07/14/2022 End: 03-17-2022 SARS-CoV-2 (COVID-19) RNA [Presence] in Unspecified specimen by JOHNNIE with probe detection NOVEL CORONAVIRUS (COVID-19) Lab STAT Encounter for laboratory testing for severe acute respiratory syndrome coronavirus 2 (SARS-CoV-2) 1 Occurrences starting 02/15/2022 until 03/17/2022 [employer] Work Phone: Comment on above: 1 Occurrences starting 02/15/2022 until 03/17/2022 Surgical pathology procedure [facility] [employer] Work Phone: Comment on above: Release Upon Ordering for 1 Occurrences starting 02/25/2022, 1 completed Tissue transglutamin ase IgA Ab [Units/volume] in Serum [facility] Tissue transglutamin ase IgG Ab [Units/volume] in Serum [facility] UVULOPALATOPHARYNGOPLASTY UVULOP ALATOPHARYNGOPLASTY Routine scheduled DIONNE (obstructive sleep apnea) PERIOPERATIVE SERVICES [facility] Immunizations Immunization Date Immunization Notes Care Provider [facility] 07-08-2021 Pfizer-BioNTech COVID-19 Vacc 30 MCG/0.3ML Intramuscular Suspension Gena Kirby Work Phone: [facility] 06-17-2021 Pfizer-BioNTech COVID-19 Vacc 30 MCG/0.3ML Intramuscular Suspension Gena Kirby Work Phone: [facility] 250 DO Work Phone: 06-27-2013 influenza virus vaccine, whole virus Gena Kirby Work Phone: [facility] 250 DO Work Phone: Payers Date Payer Category Payer Unknown [id number] 2023 Self-pay [id number] 2023 Unknown [id number] 2022 Private Health Insurance [employer] [id number]. [id number] 2021 Unknown 1975 Unknown [id number] 2.16.840.1.606982.3.579.2.59 3 1975 Unknown [id number] 2.16.840.1.299853.3.579.2.59 3 1975 Unknown [id number] 2.16.840.1.662475.3.579.2.59 3 1975 Unknown [id number] 2.16.840.1.816355.3.579.2.59 3 1975 Unknown [id number] 2.16.840.1.898158.3.579.2.59 3 1975 Unknown [id number] 2.16.840.1.625911.3.579.2.59 3 1975 Unknown [id number] 2.16.840.1.235309.3.579.2.59 3 1975 Unknown [id number] 2.16.840.1.789435.3.579.2.59 3 1975 Unknown [id number] 2.16.840.1.642759.3.579.2.59 3 1975 Unknown [id number] 2.16.840.1.807350.3.579.2.59 3 1975 Unknown [id number] 2.16.840.1.024079.3.579.2.59 3 1975 Unknown [id number] 2.16.840.1.680754.3.579.2.59 3 1975 Unknown [id number] 2.16.840.1.345598.3.579.2.59 3 1975 Unknown [id number] 2.16.840.1.113746.3.579.2.59 3 1975 Unknown [id number] 2.16.840.1.490311.3.579.2.73 2 1975 Unknown [id number] 2.16.840.1.438347.3.579.2.73 2 1975 Unknown [id number] 2.16.840.1.879281.3.579.2.73 2 1975 Unknown [id number] 2.16.840.1.250951.3.579.2.73 2 1975 Unknown [id number] 2.16.840.1.608756.3.579.2.73 2 1975 Unknown [id number] 2.16.840.1.753693.3.579.2.73 2 1975 Unknown [id number] 2.16.840.1.235993.3.579.2.73 2 1975 Unknown [id number] 2.16.840.1.880156.3.579.2.73 2 1975 Unknown [id number] 2.16.840.1.437982.3.579.2.73 2 1975 Unknown [id number] 2.16.840.1.883050.3.579.2.73 2 1975 Unknown [id number] 2.16.840.1.873029.3.579.2.73 2 1975 Unknown [id number] 2.16.840.1.721526.3.579.2.73 2 1975 Unknown [id number] 2.16.840.1.526261.3.579.2.73 2 1975 Unknown [id number] 2.16.840.1.201996.3.579.2.73 2 1975 Unknown [id number] 2.16.840.1.377348.3.579.2.17 3 1975 Unknown [id number] 2.16.840.1.340536.3.579.2.17 3 1975 Unknown [id number] 2.16.840.1.829013.3.579.2.17 3 1975 Unknown [id number] 2.16.840.1.561861.3.579.2.17 3 1975 Unknown [id number] 2.16.840.1.872277.3.579.2.17 3 1975 Unknown [id number] 2.16.840.1.600019.3.579.2.12 86 1975 Unknown [id number] 2.16.840.1.090828.3.579.2.12 86 1975 Unknown [id number] 2.16.840.1.470526.3.579.2.12 86 1975 Unknown [id number] 2.16.840.1.052166.3.579.2.12 86 1975 Unknown [id number] 2.16.840.1.138142.3.579.2.12 86 1975 Unknown [id number] 2.16.840.1.331929.3.579.2.59 8 1975 Unknown [id number] 2.16.840.1.341944.3.579.2.12 59 1975 Unknown [id number] 2.16.840.1.765700.3.579.2.12 59 1975 Unknown [id number] 2.16.840.1.976152.3.579.2.12 59 1975 Unknown [id number] 2.16.840.1.910222.3.579.2.12 59 1975 Unknown [id number] 2.16.840.1.690480.3.579.2.12 59 1975 Unknown [id number] 2.16.840.1.332443.3.579.2.12 59 1975 Unknown [id number] 2.16.840.1.397601.3.579.2.12 59 1959 Unknown [id number] 1.2.840.809351.1.13.239.2.7. 3.560514.315 1959 Unknown [id number] 3 1959 Unknown [id number] Medicaid [employer] [id number] Unknown [id number] 2.16.840.1.504106.3.579.2.53 1 Unknown [id number] 2.16.840.1.424220.3.579.2.53 1 Unknown [id number] 2.16.840.1.750439.3.579.2.53 1 Unknown [id number] 2.16.840.1.328731.3.579.2.53 1 Unknown [id number] 2.16.840.1.433117.3.579.2.53 1 Unknown [id number] 2.16.840.1.976437.3.579.2.53 1 Unknown [id number] 2.16.840.1.090051.3.579.2.53 1 Social History Date Type Detail Facility Start: 02-16-2022 End: 07-20-2023 Occasional alcohol use Occasional alcohol use [facility] Comment on above: 2 bottles of pop alonso ly.; Quit 2020; Start: 11-30-2021 End: 08-24-2023 Tobacco smoking status NHIS Ex-smoker [employer] Phone: End: 01-20-2021 History of tobacco use Cigarette Smoker [employer] Phone: Start: 11-30-2021 End: 06-18-2022 Tobacco use and exposure Smokeless tobacco non-user [employer] Phone: Start: 12-22-2021 End: 06-19-2024 Alcohol intake Lifetime non-drinker (finding) [employer] Phone: Start: 11-30-2021 Tobacco Comment occasional smo ker for 2 years, she quit over a year now [employer] Phone: Start: 1975 Sex Assigned At Not on file [facility] Phone: Start: 01-05-2022 End: 12-13-2022 Tobacco Comment occasional smoker for 2 years, she quit in 2019 [employer] Phone: Start: 12-26-2021 End: 01-05-2022 Exposure to SARS-CoV-2 (event) Not sure [employer] Phone: Tobacco smoking status [facility] Tobacco smoking consumption unknown [facility] Start: 07-20-2023 End: 08-24-2023 [facility]igned At [facility] Start: 02-16-2022 End: 10-19-2022 Alcohol intake Ex-drinker (finding) [facility] End: 01-20-2021 History of tobacco use Current smoker [facility] Start: 1975 Sex Assigned At Female [facility] Start: 10-18-2022 History SDOH Social Connections Phone 4 [facility] Start: 10-18-2022 History SDOH Social Connections Get Together 2 [facility] Start: 10-18-2022 History SDOH Social Connections Pentecostal 1 [facility] Start: 10-18-2022 History SDOH Social Connections Living 7 [facility] Start: 10-18-2022 History SDOH Physica l Activity DPW 0 [facility] Start: 10-17-2022 Education [facility] Within the last year , have you been afraid of your partner or ex-partner? No [facility] How often do you get together with friends or relatives? Patient declined [facility] Are you now , , , , never or living with a partner? Never [facility] How often to you hav e a drink containing alcohol? Never [facility] How many standard drinks containing alcohol do you have on a typical day? 3 or 4 [facility] How hard is it for you to pay for the very basics like food, housing, medical care, and heating Somewhat hard [facility] Do you feel stress - tense, restless, nervous, or anxious, or unable to sleep at night because your mind is troubled all the time - these days [OSQ] Rather much [facility] The food that (I/we) bought just didn't last, and (I/we) didn't have money to get more. Never true [facility] Start: 03-22-2023 Alcohol Comment Caffeine: > 4 cups/d ay [facility] Start: 02-24-2023 Gender identity Identifies as female gender (finding) [facility] Start: 02-24-2023 Sexual orientation Heterosexual (corey vargas) [facility] NEGATED: Highlighted rowStart: NINF History of tobacco use Passive smoker [facility] Medical Equipment Procedure Code Equipment Code Equipment Origin al Text Equipment Identifier Dates Stent Uret 6 Frx 24 Cm Firm Monofilament Tria - [id number] Start: 01-05-2022 Plate Bone 4mml [id number] - [id number] Start: 07-14-2022 Screw 2.0 X 10mm Self-Tapping Pc1 50 - [id number] Start: 07-14-2022 Pin Cross 2.0 X 5mm Pc1 - [id number] Start: 07-14-2022 [place] 8mm Screw [id number] Start: 07-14-2022 Goals Date Patient Goal Desired Activity /State Functional Status Date Assessment Result Facility 10-14-2021 PHQ-9 [id number] Moder ately Severe (15-19) -[facility] 250 DO Work Phone: Clinical Notes 11-09-2021 to 06-19-2024 Gena Kirby NP - 06/19/2024 4:54 PM EDRadha Kirby NP - 06/19/2024 4:54 PM EDRadha Kirby NP - 06/19/2024 4:53 PM EDRadha Kirby NP - 06/19/2024 4:53 PM EDT Note Date & Type Note Facility 06-19-2024 History of Presen t illness Narrative Associated Problem(s): Bipolar II disorder (CMS/HCC) Continue with psych Associated Problem(s): Generalized anxiety disorder with panic attacks (CMS/HCC) Continue with psych Associated Problem(s): Hypokalemia Check basic Associated Problem(s): Irritable bowel syndrome with diarrhea Continue with GI for treatment ?metformin have any influence?? May want to discuss, she was taking metformin for weight loss Associated Problem(s): Microscopic colitis, unspecified (CMS/HCC) Continue with GI for treatment Associated Problem(s): Hypertension (CMS/HCC) At goal no dose change Check basic Associated Problem(s): DIONNE (obstructive sleep apnea) Cont with ENT for Inspire activation Pt is still dealing with diarrhea with her GI dr. Pt has her now on 1mg twice daily of the alosetron hydrochloride since 06/11/24 No other changes Images from the original note were not included. Isabelle Hewitt is a 49 y.o. female presents with chief complaint of No chief complaint on file. HPI: Here for recheck: Has to go back and see ENT in 08/14 to have inspire device activated Continues with psych, no med dose changes Continues with GI: microscopic colitis, as well as IBS-D, med dose adjustments. Also noted this after starting metfromin for weight loss. SUBJECTIVE: MEDICATIONS: Current Outpatient Medications Medication Instructions alosetron (LOTRONEX) 1 mg, 2 times daily atenolol (TENORMIN) 100 mg, Oral, Daily atorvastatin (LIPITOR) 20 mg, Oral, Every evening dicyclomine (Bentyl) 10 MG capsule 1 capsule, Oral, 3 times daily Effexor XR 75 mg, Oral, Daily KlonoPIN 1 mg, Oral, 2 times daily PRN levothyroxine (SYNTHROID, LEVOXYL) 75 mcg, Oral, Daily before breakfast loperamide (IMODIUM) 2 mg, Oral, Every 6 hours PRN metFORMIN XR (Glucophage-XR) 500 MG 24 hr tablet TAKE 1 TABLET BY MOUTH EVERY DAY WITH THE EVENING MEAL multivitamin with minerals (Centrum) 9-200 mg-mcg tablet split tablet 1 tablet, Oral, Daily potassium chloride CR (K-Tab) 20 MEQ ER tablet 20 mEq, Oral, Daily QUEtiapine (SEROQUEL) 100 mg, Oral, Nightly trospium (SANCTURA XR) 60 mg, Oral, Daily venlafaxine XR (Effexor XR) 150 MG 24 hr capsule 1 capsule, Oral, Daily VITAMIN D, CHOLECALCIFEROL, PO Oral ALLERGIES: No Known Allergies REVIEW OF SYMPTOMS: Review of Systems Constitutional: Negative for appetite change, chills and fever. HENT: Negative for congestion, ear pain and sore throat. Eyes: Negative for pain, discharge, redness and visual disturbance. Respiratory: Negative for cough, shortness of breath and wheezing. Cardiovascular: Negative for chest pain, palpitations and leg swelling. Gastrointestinal: Positive for diarrhea. Negative for abdominal pain, blood in stool, constipation, nausea and vomiting. Genitourinary: Negative for difficulty urinating, dysuria and frequency. Musculoskeletal: Negative for arthralgias, back pain, joint swelling and myalgias. Skin: Negative for rash and wound. Neurological: Negative for dizziness, tremors, seizures, syncope and headaches. Psychiatric/Behavioral: Negative for behavioral problems, self-injury and suicidal ideas. The patient is nervous/anxious. Hematological: Does not bruise/bleed easily. Endocrine: Negative for polydipsia, polyphagia and polyuria. Allergic/Immunologic: Negative for environmental allergies and food allergies. PAST MEDICAL HISTORY Past Medical History: Diagnosis Date Abnormal appearance of cervix Abnormal mammogram of both breasts Acute cystitis Allergies Amenorrhea Anxiety At low risk for fall Condyloma Contraception management Depression (CMS/HCC) Elevated prolactin level Elevated total protein Enlarged LA (left atrium) Enlarged LA (left atrium) Generalized anxiety disorder with panic attacks (CMS/HCC) tiraled rexulti, latuda, and trazadone History of kidney stones History of migraine headaches HPV (human papilloma virus) infection Hyperlipidemia (CMS/HCC) Hypertension (CMS/HCC) 08/24/2023 Hypertriglyceridemia (CMS/HCC) Hypertriglyceridemia (CMS/HCC) Hypokalemia 08/24/2023 Kidney stones Menopause Menopause Migraine headache (CMS/HCC) Mixed hyperlipidemia (CMS/HCC) 08/18/2023 Seasonal allergies Shingles 04/17/2024 Sleep apnea Thyroiditis (CMS/HCC) 10/13/2023 Tobacco user Past Surgical History: Procedure Laterality Date SECTION, LOW TRANSVERSE CYSTOSCOPY 01/05/2022 Cystoscopy, Left Ureteroscopy, Laser Lithotripsy and left Ureteral Stent LITHOTRIPSY [place] LAP,CHOLECYSTECTOMY 01/2010 SALPINGECTOMY 11/12/2022 family history includes Bipolar disorder in her sister; Cancer in her father and mother; Heart disease in her father; Mental illness in her mother; No Known Problems in her daughter, sister, and sister. OBJECTIVE: Visit Vitals BP 110/82 (BP Location: Left arm, Patient Position: Sitting, BP Cuff Size: Adult long) Pulse 63 Temp 98.6 F (Temporal) Resp 18 Ht 5' 2 Wt 143 lb 9.6 oz SpO2 97% BMI 26.26 kg/m OB Status Having periods Smoking Status Former BSA 1.69 m Physical Exam Vitals and nursing note reviewed. Constitutional: General: She is not in acute distress. Appearance: Normal appearance. HENT: Head: Normocephalic and atraumatic. Right Ear: External ear normal. Left Ear: External ear normal. Nose: Nose normal. Mouth/Throat: Mouth: Mucous membranes are moist. Eyes: Extraocular Movements: Extraocular movements intact. Conjunctiva/sclera: Conjunctivae normal. Cardiovascular: Rate and Rhythm: Normal rate and regular rhythm. Pulses: Normal pulses. Heart sounds: Normal heart sounds. Pulmonary: Effort: Pulmonary effort is normal. Breath sounds: Normal breath sounds. No wheezing, rhonchi or rales. Chest: Chest wall: No tenderness. Abdominal: General: Bowel sounds are normal. There is no distension. Palpations: Abdomen is soft. There is no mass. Tenderness: There is no abdominal tenderness. Musculoskeletal: General: Normal range of motion. Cervical back: Normal range of motion and neck supple. Right lower leg: No edema. Left lower leg: No edema. Lymphadenopathy: Cervical: No cervical adenopathy. Skin: General: Skin is warm and dry. Capillary Refill: Capillary refill takes 2 to 3 seconds. Findings: No rash. Neurological: General: No focal deficit present. Mental Status: She is alert and oriented to person, place, and time. Psychiatric: Mood and Affect: Mood normal. Behavior: Behavior normal. Thought Content: Thought content normal. Judgment: Judgment normal. ASSESSMENT AND PLAN: No follow-ups on file. Problem List Items Addressed This Visit Mixed hyperlipidemia (CMS/HCC) Relevant Medications atorvastatin (Lipitor) 20 MG tablet Hypokalemia Check basic Relevant Orders Basic metabolic panel Hypertension (CMS/HCC) - Primary At goal no dose change Check basic Bipolar II disorder (CMS/HCC) Continue with psych Generalized anxiety disorder with panic attacks (CMS/HCC) Continue with psych DIONNE (obstructive sleep apnea) Cont with ENT for Inspire activation Microscopic colitis, unspecified (CMS/HCC) Continue with GI for treatment Overweight (BMI 25.0-29.9) Irritable bowel syndrome with diarrhea Continue with GI for treatment ?metformin have any influence?? May want to discuss, she was taking metformin for weight loss documented in this encounter [facility] 03-13-2024 Evaluation note Authored March 13, 2024 4:17pm Patient's symptoms have impr rizwana with recommendation of dicyclomine and dietary changes. Patient has yet to complete bowel cleanout due to large stool burden noted on KUB this is also recommended. Patient negative for other GI symptoms at this time [place] Work Phone: 1(173) 890-952201-30-2024 Evaluation note* Encounter Date Diagnosis Assessment Notes [...] improve even to the point of resolution, [facility]* Encounter Date Diagnosis Assessment [...] COLONOSCOPY. Jun, Fecal urgency (ICD-10 - R15.2) [facility] Other 10-17-2023 Evaluation note* Encounter Date Diagnosis [...] (suspected) exposure to covid-19 (ICD-10 - Z20.822) [facility] Other 06-07-2023 Telephone encounter Note* Telephone Encounter - Rikki Rodrigues DMD, MD - 01/26/2023 10:18 AM EDT Called and left voicemail for patient. Post-op Home Sleep Test reviewed from [facility], and there is considerable improvement. Pre-op [...] needs referral to another [facility] [employer] Work Phone: 1(383) 937-226806-07-2023 Miscellaneous Notes* Telephone Encounter - Rikki Rodrigues DMD, MD - 01/26/2023 10:18 AM EDT Called and left voicemail for patient. Post-op Home Sleep Test reviewed from [facility], and there is considerable improvement. Pre-op [...] another [facility] documented in this [id number] NoteOPERATIVE NOTE OPERATION DATE: 11/12/2022 PROCEDURE: Robotic assisted laparoscopic salpingectomy. PREOPERATIVE DIAGNOSIS: Multiparity, desires permanent sterilization. POSTOPERATIVE DIAGNOSIS: Multiparity, desires permanent sterilization. ANESTHESIA: General. SURGEON: Oswald Harrington D.O. ROLLING MILL OPERATOR: VIRAJ Salazar URINE OUTPUT: Yellow and [...] lap and needle counts were correct x2.[facility]hb[facility]-5758 Telephone encounter Note* Telephone Encounter - Tatiana Morrsi - 11/04/2022 3:51 PM EDT Opened in error [id number] Miscellaneous Notes* Telephone Encounter - Tatiana Morris - 11/04/2022 3:51 PM EDT Opened in error documented in this [id number] Telephone encounter Note* Telephone Encounter - Rikki Rodrigues DMD, MD - 11/01/2022 2:32 PM EDT Called patient and left voicemail. Advised that order for post-op PSG was faxed to [facility] [place]. Left number to call to schedule study at her convenience ([phone]) [facility] Work Phone: [phone] Miscellaneous Notes* Telephone Encounter - Rikki Rodrigues DMD, MD - 11/01/2022 2:32 PM EDT Called patient and left voicemail. Advised that order for post-op PSG was faxed to [facility] [place]. Left number to call to schedule study at her convenience ([phone]) documented in this [id number] History general Narrative - Reported* Type Description [...] counseling for depression, anxiety Hospitalization History dehydration beneSol Other 01-18-2023 History of Present illness Narrative* [...] -Complete sleep study with Dr. Mcmanus in [place], [place] in 1.5 months -Follow up with patient's general dentist, Sinan Jones DDS for denture adjustment Follow-Up: After new sleep study Follow up sooner with new or worsening symptoms. Sinan Jones DDS [address] [place] [address] Wiley Mcmanus MD [facility] [address] [place], [place] [id number] Seferino Vaz DMD [facility] Resident documented in this [id number] Instructions* Patient Instructions* Wilfredo Vang DMD - 08/30/2022 12:07 PM EST With clean hands massage gums under your upper lip daily at night time No food restrictions Follow up with your dentist We will contact your Sleep Center in [place] to have a Sleep Study completed in 1.5 months. documented in this [id number] Instructions* Patient Instructions* Wilfredo Vang DMD - 08/30/2022 12:07 PM EST With clean hands massage gums under your upper lip daily at night time No food restrictions Follow up with your dentist We will contact your Sleep Center in [place] to have a Sleep Study completed in 1.5 months. documented in this [id number] History of Present illness Narrative* Seferino VazCHAU - 08/30/2022 11:37 AM EST Images [...] lips nightly. -Complete sleep study with Dr. Mcmnaus in [place], [place] in 1.5 months -Follow up with patient's general dentist, Sinan Jones DDS for denture adjustment Follow-Up: PRN Follow up sooner with new or worsening symptoms. Sinan Jones DDS [facility] [place] [address] Wiley Mcmanus MD [facility] [address] [place] [address] Seferino Vaz DMD [facility] Resident documented in this [id number] Telephone encounter Note* Telephone Encounter - Jerel [...] at this number. Jerel Villegas DDS, MD [facility]- PGY4 [phone] [facility] Work Phone: [phone] Miscellaneous Notes* Telephone Encounter - Jerel Villegas [...] MD OM- PGY4 [phone] documented in this [id number] Telephone encounter Note* Telephone Encounter - Oliver Rogers DMD - 08/02/2022 4:26 PM EST Called pt. No answer. LVM with callback instructions. Per Dr. Rodrigues, we will not write any work excuse notes or prescribe any pain meds until pt is seenin person for follow up. Oliver Rogers DMD [facility] Work Phone: [phone] Miscellaneous Notes* Telephone Encounter - Oliver Rogers [...] options if that is the case. Email: [email or web address] Contact pt @[phone] for questions/concerns documented in this k[id number] Telephone encounter Note* Telephone Encounter - Dora Locosa - 08/02/2022 [...] options if that is the case. Email: [email or web address] Contact pt @[phone] for questions/concerns BypqqQabbnh31-18-2383 Telephone encounter Note* Telephone Encounter - Mikal [...] Oral & Maxillofacial Surgery, PGY-3 Team Pager: [phone] [employer] Work Phone: [phone] 281-889612-07-2022 Miscellaneous Notes* Telephone Encounter - Mikal Rodgers [...] Oral & Maxillofacial Surgery, PGY-3 Team Pager: [phone] documented in this [id number] History of Present illness Narrative* Mikal Rodgers [...] Oral & Maxillofacial Surgery, PGY-3 Team Pager: [phone] documented in this [id number] History of Present illness Narrative* Saleem Mi DMD - 07/19/2022 8:28 AM EST Images from the original note were not included. Initial pre-surgical workup photos: documented in this [id number] Note* Care Plan Note - Penny Brown [...] provided. Patient discharged home with family member. MrgjsWoxrqf84-90-4147 Miscellaneous Notes* Care Plan Note - Penny [...] year old female Surgical Contact Serial Number: [id number] Preoperative Diagnosis: DIONNE (obstructive sleep apnea) [G47.33] Postoperative Diagnosis: * DIONNE (obstructive sleep apnea) [G47.33] Procedures: Surgical CPTs Procedures RECONSTRUCTION MIDFACE, LEFORT I; 1 PIECE, W/O BONE GRAFT RECONSTRUCTION, MANDIBULAR RAMI &/OR BODY, SAGITTAL SPLIT; W/INT RIGID FIXATION No data filed Surgeon(s): Surgeon(s): Rikki Rodrigues DMD, MD Staff: Scrub: Annelise Saeed RN; Babs Wells RN Press Set Up Nurse: Stephanie Brannon RN; Babs Wells RN Analysis Tester: Margot Ovalles DDS; Saleem Mi DMD Anesthesia: [...] were discussed with the patient and/or legal factory representative. The risks, benefits and alternatives were reviewed. Questions regarding blood transfusions were answered. The patient /or the patient s legal factory representative agree with the plan for transfusion of blood and/or blood components. * Anesthesia Attestation - Ki Atwood MD - 07/14/2022 7:06 AM EST Anesthesia Attestation ATTESTATION OF INFORMED CONSENT FOR ANESTHESIA Anesthesia options were discussed with the patient and/or legal factory representative. The risks, benefits and alternatives were reviewed. Questions regarding anesthesia were answered. Patient and/or legal factory representative knows such anesthetics and procedures may be performed by Resident physicians, Certified Anesthesiologist Assistants, or Certified Nurse Anesthetists under the supervision of a physician. The patient /or the patient s legal representativeagree with the plan for anesthesia. 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 [facility] PROGRESS NOTE Isabelle Hewitt is a [...] mg Oral At Bedtime 10 mg at 07/16/224 oxyCODONE (ROXICODONE) 5 mg/5 mL oral solution [...] oxymetazoline (AFRIN) 0.05 % nasal solution 2 [place] Nasal Q4H PRN sodium chloride (OCEAN) 0.65 % nasal spray 1 [place] Nasal Q1H PRN naloxone (NARCAN) 0.4 MG/ML [...] to be discharged to follow up with [facility]. * Lola Wyatt [...] her facial pain. No dyspnea. Seen by [facility],feel pt is ok for floor. PHYSICAL [...] (KlonoPIN) tablet, 1 mg, Oral, Q12H PRN, Olivre Rogers DMD levothyroxine (SYNTHROID) tablet, 50 mcg, [...] oxymetazoline (AFRIN) 0.05 % nasal solution, 2 [place], Nasal, Q4H PRN, Oliver Rogers DMD sodium chloride (OCEAN) 0.65 % nasal spray, 1 [place], Nasal, Q1H PRN, Oliver Rogers DMD naloxone [...] 10 mg, Oral, Q4H PRN, Oliver Rogers, DMD, 10 mg at 07/15/22 0346 dexamethasone [...] oxymetazoline (AFRIN) 0.05 % nasal solution, 2 [place], Nasal, Q4H PRN, Oliver Rogers DMD sodium chloride (OCEAN) 0.65 % nasal spray, 1 [place], Nasal, Q1H PRN, Oliver Rogers DMD enoxaparin [...] discussed. Zehra Stearns MD documented in this [id number] Note* Care Plan Note - Penny Brown [...] adult patient will be met Outcome: [facility]rm[facility]gqve30-[facility]-3916 Note* Care Plan Note - Lauren Crawford [...] adult patient will be met Outcome: [facility] CenterSjozcEmjjar49-64-5492 Note* Care Plan Note - Alon Cotton [...] monitoring. Patient free of falls/injuries during shift. [id number] History and physical note* Zehra Stearns MD - 07/14/2022 3:58 PM EST Images from the original note were not included. Surgical ICU H&P Isabelle Hewitt [id number] HPI: Ms Hewitt is a 47 year [...] Clifford Cruz MD PGY-5 Radiology SICU Pager [phone] [facility] Surgery Pager -[phone], Weekdays 6a-6p [place] Pager -[phone], Weekdays 6p-6a, weekends Attending Attestation I saw [...] stepdown for airway monitoring. Zehra Stearns MD VasugDbpqzo26-40-2996 History and physical note* Zehra Stearns MD - 07/14/2022 3:58 PM EST Images from the original note were not included. Surgical ICU H&P Isabelle Hewitt [id number] HPI: Ms Hewitt is a 47 year [...] Clifford Cruz MD PGY-5 Radiology SICU Pager -[phone] [facility] Surgery Pager -[phone], 6a-6p [place] Pager -[phone], 6p-6a, weekends Attending Attestation I saw and [...] Yes Saleem Mi DDS documented in this [id number] NoteSurgical Attestation: I have reviewed the patient's History and Physical Examination. I have personally seen and evaluated the patient, repeating ulloa portions. There is no significant interval change. Surgery is still indicated. Yes Consent reviewed and signed by patient/family: Yes Operative site verified: Yes [facility] [id number] Note* Brief Operative Note - Rikki Rodrigues DMD, MD - 07/14/2022 8:30 AM EST Brief Operative Note MAIN OR 12 Isabelle Hewitt 47 year old female Surgical Contact Serial Number: [id number] Preoperative Diagnosis: DIONNE (obstructive sleep apnea) [G47.33] Postoperative Diagnosis: * DIONNE (obstructive sleep apnea) [G47.33] Procedures: Surgical CPTs Procedures RECONSTRUCTION MIDFACE, LEFORT I; 1 PIECE, W/O BONE GRAFT RECONSTRUCTION, MANDIBULAR RAMI &/OR BODY, SAGITTAL SPLIT; W/INT RIGID FIXATION No data filed Surgeon(s): Surgeon(s): Rikki Rodrigues DMD, MD Staff: Scrub: Annelise Saeed, CALISTA; Babs Wells RN Press Set Up Nurse: Stephanie Brannon RN; Babs Wells RN Analysis Tester: Margot Ovalles DDS; Saleem Mi DMD Anesthesia: [...] Rikki Rodrigues DMD, MD 07/14/2022 12:58 PM [employer] Work Phone: [phone] History and physical note* Saleem Mi DMD - 07/14/2022 7:13 AM EST Surgical Attestation: I have reviewed the patient's History and Physical Examination. I have personally seen and evaluated the patient, repeating ulloa portions. There is no significant interval change. Surgery is still indicated. Yes Consent reviewed and signed by patient/family: Yes Operative site verified: Yes Saleem Mi DDS [employer] Work Phone: 1([phone]) 560-435511-23-2022 Note* Blood Attestation - Ki Atwood MD - 07/14/2022 7:06 AM EST Blood Attestation ATTESTATION OF INFORMED CONSENT FOR BLOOD The transfusion of blood and/or blood components were discussed with the patient and/or legal factory representative. The risks, benefits and alternatives were reviewed. Questions regarding blood transfusions were answered. The patient /or the patient s legal factory representative agree with the plan for transfusion of blood and/or blood components. [employer] Work Phone: 1([phone] 315-741511-23-2022 Note* Anesthesia Attestation - Ki Atwood MD - 07/14/2022 7:06 AM EST Anesthesia Attestation ATTESTATION OF INFORMED CONSENT FOR ANESTHESIA Anesthesia options were discussed with the patient and/or legal factory representative. The risks, benefits and alternatives were reviewed. Questions regarding anesthesia were answered. Patient and/or legal factory representative knows such anesthetics and procedures may be performed by Resident physicians, Certified Anesthesiologist Assistants, or Certified Nurse Anesthetists under the supervision of a physician. The patient /or the patient s legal representativeagree with the plan for anesthesia. [id number] Telephone encounter Note* Telephone Encounter - Latoya Manzo RN - 07/09/2022 3:43 PM EST 1541: Contacted pt and informed her to call the ENT office to schedule appt with Dr Moreno s/p jaw surgery in about 3 months due to healing time. Pt verbalized understanding. Latoya Manzo RN ZwdrzYnskpv92-63-2683 Miscellaneous Notes* Telephone Encounter - Latoya Manzo [...] step is for after the surgery. PT: [phone] Gus Luz documented in this [id number] Telephone encounter Note* Telephone Encounter - Nicole Diaz - 07/09/2022 2:[address] Joel, Patient calling stating that she is going forward with the jaw surgery that you recommended next 07/14/22. Patient would like to know what the next step is for after the surgery. PT: [phone] Gus Luz [employer] Work Phone: 1([phone]) 534-429711-17-2022 Instructions* Patient Instructions* Gena Holbrook APRN-CNP - [...] for pain Please hold all Vitamin E, [place] 3, fish oil and herbal supplements for 1 week prior to surgery documented in this [id number] Note* PSE Appt H&P - Edwina Daniel - 07/08/2022 1:59 PM EST Patient was identified by name and date of . Edwina Daniel Bill of rights provided to patient CunylAxhkvc62-68-6368 Miscellaneous Notes* PSE Appt H&P - Edwina Daniel - 07/08/2022 1:59 PM EST Patient was identified by name and date of . Edwina Daniel Bill of rights provided to patient * PSE Appt H&P - Gena Holbrook APRN-CNP - 07/07/2022 4:03 PM EST Presurgical Evaluation Isabelle Xenia, [id number] 47 year old Female 07/08/2022 BP 122/80 [...] Yes Does not use CPAP PS12/17/2021 at [facility] RESPIRATORY DATA INTEGRITY: Respiratory data integrity [...] Arredondo 4:25 PM 07/08/2022 documented in this [id number] NotePresurgical Evaluation Isabelle Hewitt, [id number] 47 year old Female 07/08/2022 BP 122/80 [...] Yes Does not use CPAP PS12/17/2021 at [facility] RESPIRATORY DATA INTEGRITY: Respiratory data integrity [...] grossly intact Psychia (more content not included)...[facility] [employer] [id number] Note* PSE Appt H&P - Gena Holbrook APRN-BRIAN - 07/07/2022 4:03 PM EST Presurgical Evaluation Isabelle Hewitt, [id number] 47 year old Female 07/08/2022 BP 122/80 [...] Yes Does not use CPAP PS12/17/2021 at [facility] RESPIRATORY DATA INTEGRITY: Respiratory data integrity [...] Interviewer signature: ARTURO Arredondo 4:25 PM 07/08/2022 [id number] NotePatient is vaccinated for COVID-19. Vaccinations are documented in Epic. Patient does not require pre-op COVID testing per current guidelines.[facility] Graulb80-98-0891 Telephone encounter Note* Telephone Encounter - Mary Dennis RN - 07/05/2022 8:53 PM EST Patient is vaccinated for COVID-19. Vaccinations are documented in Epic. Patient does not require pre-op COVID testing per current guidelines. IthcjWzburk55-86-8484 Miscellaneous Notes* Telephone Encounter - Mary Dennis RN - 07/05/2022 8:53 PM EST Patient is vaccinated for COVID-19. Vaccinations are documented in Epic. Patient does not require pre-op COVID testing per current guidelines. documented in this [id number] Note* PSE Appt H&P - Pierce Ramos APRN-CNP - 07/05/2022 12:[address] [facility] Work Phone: 1([phone] 401-387711-14-2022 Miscellaneous Notes* PSE Appt H&P - Pierce Ramos APRN-CNP - 07/05/2022 12:06 PM EST Error documented in this [id number] History of Present illness Narrative* Seferino Vaz DMD - 07/02/2022 11:00 AM EST ORAL SURGERY CLINIC FOLLOW UP VISIT Patient was seen in the [facility] for alginate impressions of the edentulous maxilla and CBCT with denture in place. Seferino Vaz DMD [facility] Resident ms. documented in this [id number] History of Present illness Narrative* Rikki Rodrigues DMD, MD - 06/18/2022 4:17 PM EDT Images from the original note were not included. OMFS PATIENT VISIT CHIEF COMPLAINT: sleep apnea HISTORY OF PRESENT ILLNESS: Patient presents for evaluation for surgical treatment of DIONNE. She is extremely symptomatic from her DIONNE, and suffers from CPAP intolerance. [place] sleepiness scale is 18. Patient is starting [...] norms. Retrognathic mandible. DIAGNOSIS: Obstructive sleep apnea [479298] TREATMENT: Exam, Panorex evaluated, and pictures/models taken [...] Rikki Rodrigues DMD, MD documented in this [id number] History of Present illness Narrative* Margot Ovalles DDS - 06/18/2022 4:17 PM EDT Images from the original note were not included. OMFS PATIENT VISIT CHIEF COMPLAINT: sleep apnea HISTORY OF PRESENT ILLNESS: Patient presents for evaluation for surgical treatment of DIONNE. She is extremely symptomatic from her DIONNE, and suffers from CPAP intolerance. [place] sleepiness scale is 18. Patient is starting [...] on 06/18/2022, and Digital version in Dentistry [employer] system. Airway measurements are very small compared to norms. Retrognathic mandible. DIAGNOSIS: Obstructive sleep apnea [625424] TREATMENT: Exam, Panorex evaluated, and pictures/models taken [...] Rikki Rodrigues DMD, MD documented in this [id number] Instructions* Patient Instructions* Rikki Rodrigues DMD, MD [...] fatigue and inconsistent sleep. documented in this [id number] NoteSurgical Attestation: I have reviewed the patient's History and Physical Examination. I have personally seen and evaluated the patient, repeating ulloa portions. There is no significant interval change. Surgery is still indicated. Yes Consent reviewed and signed by patient/family: Yes Operative site verified and marked: site verified but not marked as not anatomically possible Ryann Brown PA-C 06/03/2022 11:55 AMThe [employer] [id number] Evaluation note* Encounter Date Diagnosis Assessment Notes Treatment Notes Treatment Clinical Notes May, Encounter for screening for other viral diseases (ICD-10 - Z11.59) beneSol Other 10-07-2022 Note* PSE Call H&P - Rose Brown RN - 05/28/2022 9:42 AM EDT Images from the original note were not included. Telephone History Isabelle Hewitt, [id number] 05/28/2022 47 year old 190 lbs 5' [...] pain. Do not take any Vitamin E, [place] 3, fish oils, herbal medications 7 days [...] Spent Performing this Telephone History: 30 minutes ReqfnGsqluf40-21-1990 Miscellaneous Notes* PSE Call H&P - Rose Brown RN - 05/28/2022 9:42 AM EDT Images from the original note were not included. Telephone History Isabelle Hewitt, [id number] 05/28/2022 47 year old 190 lbs 5' [...] pain. Do not take any Vitamin E, [place] 3, fish oils, herbal medications 7 days [...] Telephone History: 30 minutes documented in this [id number] Telephone encounter Note* Telephone Encounter - Mary Dennis RN - 05/28/2022 8:15 AM EDT Patient is scheduled for DISE on 06/03/2022. Prefers to complete pre-op COVID testing closer to home. Instructed to obtain testing 48-72 hours prior to surgery and bring copy of results on day of surgery. PSE contact information provided. [id number] Miscellaneous Notes* Telephone Encounter - Mary Dennis RN - 05/28/2022 8:15 AM EDT Patient is scheduled for DISE on 06/03/2022. Prefers to complete pre-op COVID testing closer to home. Instructed to obtain testing 48-72 hours prior to surgery and bring copy of results on day of surgery. PSE contact information provided. documented in this [id number] Telephone encounter Note* Telephone Encounter - Mary Dennis RN - 05/26/2022 9:16 PM EDT Arrangements to be made for pre-op COVID testing per ENT request. [id number] Miscellaneous Notes* Telephone Encounter - Mary Dennis RN - 05/26/2022 9:16 PM EDT Arrangements to be made for pre-op COVID testing per ENT request. documented in this [id number] Note* Addendum Note - Yi Moreno MD - 05/26/2022 5:25 PM EDTAddended by: YI MORENO on: 05/26/2022 05:25 PM Modules accepted: Orders [id number] Miscellaneous Notes* Addendum Note - Yi Moreno MD - 05/26/2022 5:25 PM EDTAddended by: YI MORENO on: 05/26/2022 05:25 PM Modules accepted: Orders documented in this [id number] History of Present illness Narrative* Yi Moreno MD - 03/29/2022 2:41 PM EDT Images from the original note were not included. .Documentation: Mode: Telephone Patient Home Phone: Patient Patient Cell Preferred phone: [phone] Consent: I confirmed patient understanding of the [...] on prior sleep endoscopy documented in this [id number] History of Present illness Narrative* Yi Moreno MD - 03/29/2022 2:41 PM EDT Images from the original note were not included. .Documentation: Mode: Telephone Patient Home Phone: Patient Patient Cell Preferred phone: [phone] Consent: I confirmed patient understanding of the [...] on prior sleep endoscopy documented in this [id number] Telephone encounter Note* Telephone Encounter - Tatiana [...] to turn it in is 03/19/22. #: [phone] EayecJflhsg97-86-8854 Miscellaneous Notes* Telephone Encounter - Tatiana Morris [...] to turn it in is 03/19/22. #: [phone] documented in this [id number] Note* Care Plan Note - Iglesia Aimn RN - 02/26/2022 2:26 PM EDT Problem: [...] will be met Outcome: Adequate for Discharge AapuwNwabky01-99-2570 Miscellaneous Notes* Care Plan Note - Iglesia [...] year old female Surgical Contact Serial Number: [id number] Preoperative Diagnosis: DIONNE (obstructive sleep apnea) [G47.33] Postoperative Diagnosis: * DIONNE (obstructive sleep apnea) [G47.33] Procedures: Surgical CPTs Procedures PALATOPHARYNGOPLASTY No data filed Surgeon(s): Surgeon(s): Yi Moreno MD Staff: Scrub: Wiley Álvarez Press Set Up Nurse: Mariaa Briseno; Dulce Allred; Babs Wells RN Analysis Tester: Yi Piña MD; Unruly Biggs MD Anesthesia: Consult Anesthesiologist: Maite Youssef MD CAA: Mariaa Meneses CAA ACCOUNTS SPECIALIST: Cari Hurtado APRN-KOBI Air Brake Adjuster: Carol Barrera MD Anesthesia Student: Prema Norris [...] Moreno MD - 02/25/2022 10:00 AM EDT [id number] Isabelle Hewitt 1975 @PATFNAME@ @PATIENTLASTNAME@ [id number] Preoperative diagnosis: 1. Obstructive sleep apnea 2. [...] were discussed with the patient and/or legal factory representative. The risks, benefits and alternatives were reviewed. Questions regarding anesthesia were answered. Patient and/or legal factory representative knows such anesthetics and procedures may [...] were discussed with the patient and/or legal factory representative. The risks, benefits and alternatives were reviewed. Questions regarding blood transfusions were answered. The patient /or the patient s legal factory representative agree with the plan for transfusion of blood and/or blood components. documented in this [id number] NoteOTOLARYNGOLOGY HEAD AND NECK SURGERY DAILY PROGRESS [...] and perioperative course uncomplicated. Patient transferred to [facility] from PACU. Mild anxiety overnight. No desaturations and pain overall well controlled. Patient on 2L NC when seen in the AM - Wean nc as tolerated - Monitor PO - Restart home meds - Discharge home today as appropriate ENT [id number] Note* Care Plan Note - Martínez Johnson [...] the patient will be met Outcome: Progressing [id number] NoteDISCHARGE SUMMARY [place] [id number] Isabelle Hewitt Date of : 1975 46 [...] Your Medications These medications were sent to [id number] - [place], [place] - [address] [facility] [address] [place] [address] acetaminophen 650 MG CR tablet methylPREDNISolone 4 [...] documented in the resident's note. Wiley Lancaster MDSelect Medical [facility]22 Hospital Discharge instructions* Discharge Instructions* Unruly Biggs [...] shared with your regular doctor. Isabelle Hewitt [facility] [employer] [facility] [id number] Phone numbers Date of Procedure: 02/25/22 Physicians: Dr. Yi Moreno (ENT) Admission Date: 02/25/2022 7:49 AM Discharge Date: No discharge date for patient encounter. Disposition: Home Home Care Agency: none Procedure that was performed: Uvulopalatopharyngoplasty (UPPP) Pending results: No pathology specimen was sent Call [phone] during regular daytime business hours (8:00 am - 5:00 pm) and after 5:00 pm call [phone] and ask to speak with the ENT Resident Plastic Block Boiler Reliner with any questions or concerns. If it is a life-threatening situation, proceed to the nearest emergency department. Your Follow-up Appointment(s) Future Appointments Date Time Provider Department Center 03/29/2022 3:15 PM Yi Moreno MD [facility] Location: [facility] ([facility] [place]) [address] [place] [address] ([phone]) Thank you for the opportunity to care [...] a stool softener, they may be purchased dqpw-sts-ssaypfe at any local drugstore. Signs of Infection Signs of infection can include fever, excessive swelling, heat, drainage, redness, or severe pain. If you see any of these occur, please contact your doctor's office at [phone]. Any fever higherthan 100.4, especially if associated [...] opioids can be used to help relieve eempxmik-sd-sogjym pain and are often prescribed following a [...] or Mental Health Mobile Crisis Help Line [phone] Narcotics Anonymous Center for Disease Control and Prevention www.cdc.gov 211 First Call For Help (14/03) 2-1-1 from phone OR [employer] Falls Prevention Each year, 1 in every 3 adults over the age of 65 are treated for fall-related injuries. The risk of falling increases with each decade of life. The good news is, many falls are preventable. Here are some fall prevention tips: Exercise can increase strength and improve balance, making falls much less likely. For more informati on visit: http://[facility].org/services/rekq-wnbvar-gf-your-health/a-matte g-tk-oaiznqe/ Some medications or combinations of medications can [...] Written by the doctors and editors at [facility] What are the benefits of exercise? [...] of movement, like short walks or doing hand candy molder, can help improve your health. What else [...] process is complete. This topic retrieved from [employer] on: Mar 19, 2020. Topic 99345 Version 20.0 Release: 28.4.6 - C28.294 2019 [employer] and/or its affiliates. All rights reserved. Consumer [...] that is right for you.The use of [employer] content is governed by the [employer] Terms of Use. 2019 [employer]. All rights reserved. Copyright 2020 [employer] and/or its affiliates. All rights reserved. Reviewed April 2020 documented in this [id number] Note* Care Plan Note - Ashvin Mims [...] the patient will be met Outcome: Progressing [id number] NoteAddendum created 02/25/22 1219 by Mariaa Meneses CAA Intraprocedure Staff editedThe [facility] History of Present illness Narrative* Ailyn Son, RN - 02/25/2022 11:13 AM EDT No [...] no areas of redness. documented in this [id number] NoteSurgical Attestation: I have reviewed the patient's History and Physical Examination. I have personally seen and evaluated the patient, repeating ulloa portions. There is no significant interval change. Surgery is still indicated. Yes Consent reviewed and signed by patient/family: Yes Operative site verified and marked: Yes Yi Moreno MD 02/25/2022 8:56 AMThe [facility]07-[facility] Note* Brief Operative Note - Yi Moreno MD - 02/25/2022 10:00 AM EDT Brief Operative Note MAIN OR 11 Isabelle Hewitt 46 year old female Surgical Contact Serial Number: [id number] Preoperative Diagnosis: DIONNE (obstructive sleep apnea) [G47.33] Postoperative Diagnosis: * DIONNE (obstructive sleep apnea) [G47.33] Procedures: Surgical CPTs Procedures PALATOPHARYNGOPLASTY No data filed Surgeon(s): Surgeon(s): Yi Moreno MD Staff: Scrub: Wiley Álvarez Press Set Up Nurse: Mariaa Briseno; Dulce Allred; Babs Wells RN Analysis Tester: Yi Piña MD; Unruly Biggs MD Anesthesia: Consult Anesthesiologist: Maite Youssef MD CAA: Mariaa Meneses CAA ACCOUNTS SPECIALIST: Cari Hurtado APRN-CRNA Air Brake Adjuster: Carol Barrera MD Anesthesia Student: Prema Norris [...] by Yi Moreno MD 02/25/2022 10:40 AM [id number] Note* OP Note - Yi Moreno MD - 02/25/2022 10:00 AM EDT [id number] Isabelle Hewitt 1975 @PATFNAME@ @PATIENTLASTNAME@ [id number] Preoperative diagnosis: 1. Obstructive sleep apnea 2. [...] taken back to recovery in stable condition. [id number] History and physical note* Yi Moreno MD [...] Yes Yi Moreno MD 02/25/2022 8:56 AM [id number] History and physical note* Yi Moreno MD [...] MD 02/25/2022 8:56 AM documented in this [id number] Note* Anesthesia Attestation - Maite Youssef MD - 02/25/2022 8:52 AM EDT Anesthesia Attestation ATTESTATION OF INFORMED CONSENT FOR ANESTHESIA Anesthesia options were discussed with the patient and/or legal factory representative. The risks, benefits and alternatives were reviewed. Questions regarding anesthesia were answered. Patient and/or legal factory representative knows such anesthetics and procedures may be performed by Resident physicians, Certified Anesthesiologist Assistants, or Certified Nurse Anesthetists under the supervision of a physician. The patient /or the patient s legal representativeagree with the plan for anesthesia. [employer] Work Phone: 1(475) 215-978107-07-2022 Note* Blood Attestation - Maite Youssef MD - 02/25/2022 8:52 AM EDT Blood Attestation ATTESTATION OF INFORMED CONSENT FOR BLOOD The transfusion of blood and/or blood components were discussed with the patient and/or legal factory representative. The risks, benefits and alternatives were reviewed. Questions regarding blood transfusions were answered. The patient /or the patient s legal factory representative agree with the plan for transfusion of blood and/or blood components. [id number] Telephone encounter Note* Telephone Encounter - Mary Dennis RN - 02/24/2022 7:19 AM EDT PSE received pre-op COVID test results - NOT DETECTED on 02/23/2022. Document scanned into [employer]. [id number] Miscellaneous Notes* Telephone Encounter - Mary Dennis RN - 02/24/2022 7:19 AM EDT PSE received pre-op COVID test results - NOT DETECTED on 02/23/2022. Document scanned into [employer]. documented in this [id number] Telephone encounter Note* Telephone Encounter - Mary Dennis RN - 02/17/2022 2:52 PM EDT Patient is scheduled for surgery 02/25/2022. Prefers to complete pre-op COVID testing closer to home.Instructed to obtain testing 48-72 hours prior to surgery and bring copy of results on day of surgery. PSE contact information provided, order faxed to [facility] per patient request. [id number] Miscellaneous Notes* Telephone Encounter - Mary Dennis RN - 02/17/2022 2:52 PM EDT Patient is scheduled for surgery 02/25/2022. Prefers to complete pre-op COVID testing closer to home.Instructed to obtain testing 48-72 hours prior to surgery and bring copy of results on day of surgery. PSE contact information provided, order faxed to [facility] per patient request. documented in this [id number] Instructions* Patient Instructions* Pierce Ramos, KATHRIN-DIRECTOR SUPPLY CHAIN - 02/16/2022 2:21 PM EDT On the [...] for pain Please hold all Vitamin E, [place] 3, fish oil and herbal supplements for 1 week prior to surgery documented in this [id number] Note* PSE Appt H&P - Quinton Manzo - 02/16/2022 2:19 PM EDT Patient was identified by name and date of . Quinton Manzo Bill of rights provided to patient [id number] Miscellaneous Notes* PSE Appt H&P - Quinton Manzo - 02/16/2022 2:19 PM EDT Patient was identified by name and date of . Quinton Manzo Bill of rights provided to patient * PSE Appt H&P - Pierce Ramos APRN-CNP - 02/15/2022 2:46 PM EDT Presurgical Evaluation Isabelle Hewitt, [id number] 46 year old Female 02/17/2022 VITAL SIGNS: [...] six months. No STOP-BANG Row Name 02/16/22 1427 History of sleep apnea? Yes Does not use CPAP PS12/17/2021 at [facility] RESPIRATORY DATA INTEGRITY: Respiratory data integrity [...] (LIPITOR) 20 mg tablet EKG 12-LEAD TRACING [52449] PLAN: Documentation complete. Labs, Images, and Medications reviewed, and patient questions answered. Interviewer signature: ARTURO Rankin 8:00 AM 02/17/2022 documented in this [id number] NotePresurgical Evaluation Isabelle Hewitt, [id number] 46 year old Female 02/17/2022 VITAL SIGNS: [...] Yes Does not use CPAP PS12/17/2021 at [facility] RESPIRATORY DATA INTEGRITY: Respiratory data integrity [...] No result fo (more content not included)...The [employer] [id number] Note * PSE Appt H&P - Pierce Ramos, KATHRIN-BRIAN - 02/15/2022 2:46 PM EDT Presurgical Evaluation Isabelle Hewitt, [id number] 46 year old Female 02/17/2022 VITAL SIGNS: [...] Yes Does not use CPAP PS12/17/2021 at [facility] RESPIRATORY DATA INTEGRITY: Respiratory data integrity [...] (LIPITOR) 20 mg tablet EKG 12-LEAD TRACING [10470] PLAN: Documentation complete. Labs, Images, and Medications reviewed, and patient questions answered. Interviewer signature: ARTURO Rankin 8:00 AM 02/17/2022 [id number] Telephone encounter Note* Telephone Encounter - Mary Dennis RN - 02/11/2022 3:52 PM EDT Arrangements to be made for pre-op COVID testing per ENT request. [id number] Miscellaneous Notes* Telephone Encounter - Mary Dennis RN - 02/11/2022 3:52 PM EDT Arrangements to be made for pre-op COVID testing per ENT request. documented in this [id number] History of Present illness Narrative* Yi Moreno [...] indicating an AHI of 63 with an Z2wzzwr of 64% Sleep position: Side Mouth breather:y yeses previous sleep surgeries: no Other sleep disorders, such as insomnia/ kataplexy/ narcolepsy: yes, on andoff Bruxism: no tried oral appliance:edenetulous Questionnaires: [place] sleep scale score: 18 FOSQ-10: HADS No [...] ear was aerated bilaterally. Clinical speech receptionist clerk thresholds grossly intact. No lesions/mass of auricles. [...] surgery. Patient's procedure will be done at [facility]. This is a difficult airway in [...] transfusion as discussed preoperatively. documented in this [id number] History of Present illness Narrative* Randa Yanes [...] or not. Verbalizes understanding. documented in this [facility] Phone: 1(435) 348-326005-17-2022 Hospital Discharge instructions* Instructions* Ade Easton, RN - 01/05/2022 SAME DAY SURGERY DISCHARGE [...] flush the urinary tract.) Call Dr. Hirsch ([phone]) if you develop: Fever over 100 degrees [...] Call Dr. Hirsch office for follow-up appointment ([phone]). documented in this [facility] Work Phone: 1(875) 905-303603-21-2022 Evaluation note* Encounter Date Diagnosis Assessment Notes [...] now she may qualify in the future 21 Mar, 2022 Bipolar depression (ICD-10 - F31.9) Bipolar disorder [...] changes in symptoms and/or problems with treatment beneSol Other Chilq complaint Narrative - ReportedISABELLE HEWITT is being seen for a consultation for abnormal test(s) results.-[facility] Work Phone: Evaluation note* Diagnosis Kidney stones Calculus of kidney documented in this encounter [employer] Phone: evaluation note* Diagnosis Pre-op testing Preoperative examination, unspecified documented in this encounter [employer] Phone: evaluation note* Diagnosis Ureteral calculus- Primary Calculus of ureter documented in this encounter [employer] Phone: evaluation note* Diagnosis DIONNE (obstructive sleep apnea)- Primary Obstructive sleep apnea (adult) (pediatric) Body mass index (BMI) 34.0-34.9, adult documented in this encounter [facility] note[facility] InformationNort [facility] Other Evaluation note* Diagnosis DIONNE (obstructive sleep [...] Calculus of ureter documented in this encounter [facility] Work Phone: evaluation note* Diagnosis DIONNE (obstructive sleep apnea)- Primary Obstructive sleep apnea (adult) (pediatric) Encounter for laboratory testing for severe acute respiratory syndrome coronavirus 2 (SARS-CoV-2) Postoperative pain Other acute postoperative pain documented [facility]* Diagnosis DIONNE (obstructive sleep apnea)- Primary Obstructive sleep apnea (adult) (pediatric) documented in this encounter [facility] noteNo assessment information availableSelect Medical [facility] Work Phone: Evaluation note* Diagnosis Obstructive sleep [...] note* Diagnosis Dysuria documented in this encounter [employer] Phone: evaluation note* Diagnosis Post-operative state- Primary Other postprocedural status documented [facility]* Diagnosis Post-operative state- Primary Other postprocedural status [facility]* Diagnosis OAB (overactive bladder) Hypertonicity of bladder Urge incontinence Frequency of urination Urinary frequency documented in this encounter [employer] Phone: evaluation note* Diagnosis Onset Date Resolution Status Contact with and (suspected) exposure to covid-19 acute Influenza B noneactive Diarrhea acute Fecal urgency acute Alternating constipation and diarrhea acute Bloating acute Fecal urgency acute [place] Work Phone: evaluation note* Diagnosis Onset Date Resolution Status Constipation acute [place] Work Phone: Evaluation note* Diagnosis Primary hypertension (CMS/HCC)- Primary Unspecified essential hypertension Hypokalemia Hypopotassemia Chronic diarrhea Diarrhea Weight loss, unintentional- Primary Loss of weight DIONNE (obstructive sleep apnea) Obstructive sleep apnea (adult) (pediatric) Primary hypertension (CMS/HCC) Unspecified essential hypertension Chronic diarrhea Diarrhea Other microscopic colitis (CMS/HCC) Bipolar II disorder ([facility]/HCC) Other bipolar disorders Hypokalemia Hypopotassemia Anxiety state ([facility]/HCC) Anxiety state, unspecified Pre-operative clearance- Primary Unspecified pre-operative examination Primary hypertension (CMS/HCC) Unspecified essential hypertension Hypokalemia Hypopotassemia Other specified hypothyroidism ([facility]/HCC) Herpes zoster without complication- Primary Overweight (BMI 25.0-29.9) Overweight Primary hypertension ([facility]/HCC)- Primary Unspecified essential hypertension Hypokalemia Hypopotassemia DIONNE (obstructive sleep apnea) Obstructive sleep apnea (adult) (pediatric) Other microscopic colitis ([facility]/HCC) Irritable bowel syndrome with diarrhea Irritable bowel syndrome Overweight (BMI 25.0-29.9) Overweight Generalized anxiety disorder with panic attacks ([facility]) Bipolar II disorder ([facility]/HCC) Other bipolar disorders Mixed hyperlipidemia ([facility]) Mixed hyperlipidemia documented in this encounter [facility] HealthcareHistory and physical note Author David Martinez [facility] August 08, 2023 12:30pm Note Date/Time August 08, 2023 12:30pm [facility] [address] [place] [address] Gastroenterology H&P Signed Patient: Isabelle Hewitt I MR#: [id number] : 1975 Acct:[id number] Age/Sex: 48 / F Adm Date: 3 [...] signed by David Martinez MD> 08/08/23 1230 [facility] Work Phone: Hishfpm general Narrative - Reported* Type Description Date Medical History anxiety Medical History Hypertension Medical History sleep apnea Surgical History C section Surgical History cholecystectomy Hospitalization History see above Hospitalization History no history of ps ychiatric hospitalization, substance abuse, and suicide attempts, but she is history of ongoing treatment of depression and counseling for depression, anxiety Hospitalization History dehydration beneSol Other [employer] general Narrative - Reported* Type Description Date [...] counseling for depression, anxiety Hospitalization History dehydration beneSol Other History of Present illness Narrative* Patient [...] office in 3 to 4 months follow-up [employer] DO Work Phone: History of Present illness [...] monitor blood pressure call if not better [facility] [employer] DO Work Phone: Hospital Discharge instructions [...] in the office as scheduled -Office number [phone]. [facility] Work Phone: [facility] Narrative* Auth/Cert Specialty Diagnoses / Procedures Referred By Casper diaz Referred To Contact Diagnoses Kidney stone KIDNEY STONES Procedures AZ CYSTO/URETERO W/LITHOTRIPSY &INDWELL STENT INSRT CYSTOSCOPY URETEROSCOPY LASER-WITH HLL Bertha Hirsch MD [address], [address] [place] [address] [facility] [address] [place] [address] Referral ID Status Reason Start Date Expiration Date Visits Re quested Visits Authorized [id number] 1 1 [employer] Phone: reason for visit Narrative* Auth/Cert Specialty Diagnoses / Procedures Referred By Casper t Referred To Contact General Surgery Diagnoses DIONNE (obstructive sleep apnea) DIONNE (obstructive sleep apnea) [G47.33] Procedures PALATOPHARYNGOPLASTY UVULOPALATOPHARYNGOPLAS TY Yi Moreno MD [address] [place] [address] [employer] [address] [place] [address] Phone: [phone] Referral ID Status Reason Start Date Expiration Date Visits Re quested Visits Authorized [id number] 3 3 [facility]Reason [facility] NarrativeRAPID COVID TEST FOR PROCEDURE, [facility]PG COVID voluntary/travelNorth Intervolve Other Family History No Family History Records [...] Date/ Time Advance Directives No March 22, 018 7:42am Latest Code Status on File [...] Date/ Time Advance Directives No March 22, 018 6:42am Chief Complaint and Reason for [...] low back Reason for Visit Constipation Shingles Chief Complaint follow up Sore on low back k59.00 Reason for Visit Constipation Shingles Chief Complaint follow up Sore on low back k59.00 2 month f/u microscopic colitis Reason for Visit Constipation Shingles Microscopic colitis Chief Complaint follow up Sore on low back k59.00 2 month f/u microscopic colitis 1 month follow up Reason for Visit Constipation Shingles Diarrhea Microscopic colitis Fecal urgency Irritable bowel syndrome with diarrhea Microscopic colitis Reason for Referral Specialty Diagnoses / Procedures Referred By Casper diaz Referred To Contact Oral Surgery Diagnoses DIONNE (obstructive sleep apnea) Yi Moreno MD [address] [place] [address] Rikki Rodrigues DMD, MD [address] [place] [address] Referral ID Status Reason Start Date Expiration Date V isits Requested Visits Authorized [id number] Pending Review 05/26/2022 05/26/2023 3 3 Scheduling Instructions Please call the regional maintenance manager Clinic at [facility] at to schedule an appointment if one was not made for you today. Question Answer Patient to be evaluated for: Orthognathic/Jaw Surgery Additional Source Comments INFORMATION SOURCE (unrecogn ized section and content) DATE CREATED AUTHOR 12/03/2021 [employer] DATE CREATED AUTHOR AUTHOR'S ORGANIZ ATION 01/31/2023 [facility] DATE CREATED AUTHOR AUTHOR'S ORGANIZ ATION 01/31/2023 [employer] DATE CREATED AUTHOR AUTHOR'S ORGANIZ ATION 10/02/2023 [facility] DATE CREATED AUTHOR AUTHOR'S ORGANIZ ATION 04/14/2024 [facility] DATE CREATED AUTHOR AUTHOR'S ORGANIZ ATION 06/12/2024 [facility] DATE CREATED AUTHOR AUTHOR'S ORGANIZ ATION 06/21/2024 [facility] dical Specialists [facility] DATE CREATED AUTHOR AUTHOR'S ORGANIZ ATION 06/28/2024 [facility] ysician Group Care Teams (unrecognized sec tion and content) Team Status: Active Member Role Status Dates Gena Kirby Primary Care Provider Active Team Status: Inactive Member Role Status Dates Gena Kirby Primary Care Provider Active iY Moreno MD Referring Provider Active Wiley Mcmanus MD Attending Provider Active Treasury Associate Relationship Specialty Start Date End Date Gena Kirby [address] [place] [address] PCP - General Nurse Practitioner 11/30/21 Treasury Associate Relationship Specialty Start Date End Date Gena Kirby [address] [place] [address] PCP - General Nurse Practitioner 11/30/21 Treasury Associate Relationship Specialty Start Date End Date Gena Kirby [address] [place] [address] PCP - General Nurse Practitioner 11/30/21 Treasury Associate Relationship Specialty Start Date End Date Yi Moreno MD [address] [place] [address] Physician Otolaryngology 01/23/22 Treasury Associate Relationship Specialty Start Date End Date Yi Moreno MD [address] [place] [address] Physician Otolaryngology 01/23/22 Treasury Associate Relationship Specialty Start Date End Date Yi Moreno MD [address] [place] [address] Physician Otolaryngology 01/23/22 Treasury Associate Relationship Specialty Start Date End Date Yi Moreno MD [address] [place] [address] Physician Otolaryngology 01/23/22 Treasury Associate Relationship Specialty Start Date End Date Gena Kirby [address] [place] [address] PCP - General Nurse Practitioner 11/30/21 Treasury Associate Relationship Specialty Start Date End Date Yi Moreno MD [address] [place] [address] 95144 Physician Otolaryngology 01/23/22 Treasury Associate Relationship Specialty Start Date End Date Yi Moreno MD [address] [place] [address] 82640 Physician Otolaryngology 01/23/22 Treasury Associate Relationship Specialty Start Date End Date Yi Moreno MD [address] [place] [address] 72348 Physician Otolaryngology 01/23/22 Treasury Associate Relationship Specialty Start Date End Date Yi Moreno MD [address] [place] [address] 55287 Physician Otolaryngology 01/23/22 Team Status: Inactive Member Role Status Dates Gena Kirby Primary Care Provider Active Wiley Mcmanus MD Attending Provider Active Yi Moreno MD Referring Provider Active Treasury Associate Relationship Specialty Start Date End Date Yi Moreno MD [address] [place] [address] 81242 Physician Otolaryngology 01/23/22 Treasury Associate Relationship Specialty Start Date End Date Yi Moreno MD [address] [place] [address] 46041 Physician Otolaryngology 01/23/22 Rikki Rodrigues DMD, MD [address] [place] [address] 19134 Physician Oral & Maxillofacial Surgery 06/26/22 Treasury Associate Relationship Specialty Start Date End Date Yi Moreno MD [address] [place] [address] 65672 Physician Otolaryngology 01/23/22 Treasury Associate Relationship Specialty Start Date End Date Yi Moreno MD [address] [place] [address] 43139 Physician Otolaryngology 01/23/22 Rikki Rodrigues DMD, MD [address] [place] [address] 73461 Physician Oral & Maxillofacial Surgery 06/26/22 Treasury Associate Relationship Specialty Start Date End Date Yi Moreno MD [address] [place] [address] 76438 Physician Otolaryngology 01/23/22 Rikki Rodrigues DMD, MD [address] [place] [address] 41106 Physician Oral & Maxillofacial Surgery 06/26/22 Treasury Associate Relationship Specialty Start Date End Date Yi Moreno MD [address] [place] [address] 48909 Physician Otolaryngology 01/23/22 Rikki Rodrigues DMD, MD [address] [place] [address] 57686 Physician Oral & Maxillofacial Surgery 06/26/22 Treasury Associate Relationship Specialty Start Date End Date Yi Moreno MD [address] [place] [address] 90125 Physician Otolaryngology 01/23/22 Treasury Associate Relationship Specialty Start Date End Date Yi Moreno MD [address] [place] [address] 97435 Physician Otolaryngology 01/23/22 Rikki Rodrigues DMD, MD [address] [place] [address] 83361 Physician Oral & Maxillofacial Surgery 06/26/22 Treasury Associate Relationship Specialty Start Date End Date Yi Moreno MD [address] [place] [address] 47739 Physician Otolaryngology 01/23/22 Rikki Rodrigues DMD, MD [address] [place] [address] 70031 Physician Oral & Maxillofacial Surgery 06/26/22 Treasury Associate Relationship Specialty Start Date End Date Yi Moreno MD [address] [place] [address] 30237 Physician Otolaryngology 01/23/22 Rikki Rodrigues DMD, MD [address] [place] [address] 35542 Physician Oral & Maxillofacial Surgery 06/26/22 Treasury Associate Relationship Specialty Start Date End Date Yi Moreno MD [address] [place] [address] 45701 Physician Otolaryngology 01/23/22 Rikki Rodrigues DMD, MD [address] [place] [address] 26727 Physician Oral & Maxillofacial Surgery 06/26/22 Treasury Associate Relationship Specialty Start Date End Date Yi Moreno MD [address] [place] [address] 42327 Physician Otolaryngology 01/23/22 Rikki Rodrigues DMD, MD [address] [place] [address] 13232 Physician Oral & Maxillofacial Surgery 06/26/22 Gena Holbrook APRN-DIRECTOR SUPPLY CHAIN [address] [place] [address] 59212 RUSSIAN TEACHER Anesthesiology 07/24/22 Treasury Associate Relationship Specialty Start Date End Date Yi Moreno MD [address] [place] [address] 21145 Physician Otolaryngology 01/23/22 Rikki Rodrigues DMD, MD [address] [place] [address] 87631 Physician Oral & Maxillofacial Surgery 06/26/22 Gena Holbrook APRN-DIRECTOR SUPPL[employer] CHAIN [address] [place] [address] 51137 RUSSIAN TEACHER Anesthesiology 07/24/22 Treasury Associate Relationship Specialty Start Date End Date Gena Kirby [facility] [place] [address] PCP - General Nurse Practitioner 11/30/21 Treasury Associate Relationship Specialty Start Date End Date Yi Moreno MD [address] [place] [address] 16261 Physician Otolaryngology 01/23/22 Rikki Rodrigues DMD, MD [address] [place] [address] 14093 Physician Oral & Maxillofacial Surgery 06/26/22 Gena Holbrook APRN-DIRECTOR [employer] CHAIN [address] [place] [address] 17057 RUSSIAN TEACHER Anesthesiology 07/24/22 Treasury Associate Relationship Specialty Start Date End Date Yi Moreno MD [address] [place] [address] 72218 Physician Otolaryngology 01/23/22 Rikki Rodrigues DMD, MD [address] [place] [address] 04227 Physician Oral & Maxillofacial Surgery 06/26/22 Gena Holbrook APRN-DIRECTOR [employer] CHAIN [address] [place] [address] 94023 RUSSIAN TEACHER Anesthesiology 07/24/22 Treasury Associate Relationship Specialty Start Date End Date Gena Kirby [address] [facility] [place] [address] PCP - General Nurse Practitioner 11/30/21 Treasury Associate Relationship Specialty Start Date End Date Yi Moreno MD [address] [place] [address] 79867 Physician Otolaryngology 01/23/22 Rikki Rodrigues DMD, MD [address] [place] [address] 20220 Physician Oral & Maxillofacial Surgery 06/26/22 Gena Holbrook APRN-DIRECTOR SUPPL[employer] CHAIN [address] [place] [address] 52479 RUSSIAN TEACHER Anesthesiology 07/24/22 Team Status: Inactive Member Role [...] April 16, 2024 End: April 16, 2024 Team Status: Inactive Member Role Status Dates Gena Kirby Primary Care Provider Active Sta rt: May 08, 2024 End: May 08, 2024 Majo Lyman APRN Attending Provider Active Start: May 08, 2024 End: May 08, 2024 Team Status: Inactive Member Role Status Dates Gena Kirby Primary Care Provider Active Sta rt: May 16, 2024 End: May 16, 2024 Majo Lyman APRN Attending Provider Active Start: May 16, 2024 End: May 16, 2024 Team Status: Inactive Member Role Status Dates Gena Kirby Primary Care Provider Active Sta rt: June 11, 2024 End: June 11, 2024 Majo Lyman APRN Attending Provider Active Start: June 11, 2024 End: June 11, 2024 Treasury Associate Relationship Specialty Start Date End Date Magdiel Munoz MD [address] [place] [phone] PCP - General Family Medicine 03/18/23 Gena Kirby NP [address] [place] [phone] Referring Physician Nurse Practitioner 03/18/23 Treasury Associate Relationship Specialty Start Date End Date Magdiel Munoz MD [address] [place] [phone] PCP - General Family Medicine 03/18/23 Gena Kirby NP [address] [place] [phone] Referring Physician Nurse Practitioner 03/18/23 Scheduled Active and Recently Administ ered Medications [...] IVPB 400 mg (COMPLETED) 400 mg, IntraVENous, ELECT[employer]PA[employer]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 TO O.R., 1 dose, On Tue01/05/22 at [...] dose on Tue02/26/22 at 2200, Until Discontinued 0 (Due) docusate sodium (COLACE) capsule 100 mg, [...] Mims) 0850 (Given - Provider: Iglesia Amin, CALISTA)2100 (Due) norethindrone (MICRONOR) tablet TABS 1 Tablet, [...] Post-op 2100 (Given - Provider: Ashvin Mims) 0 (Due) sucralfate (CARAFATE) 1 GM/10ML oral suspension [...] 7,8,9,10), Post-op 1439 (Given - Provider: Ailyn Son, CALISTA)1842 (Given - Provider: Ashvin Mims) Scheduled Medication [...] Brown RN)1400 (Due - Provider: Dulce Olson [facility])1800 (Due - Provider: Dulce Olson [facility])2200 (Due - Provider: Dulce Olson [facility]) acetaminophen (TYLENOL) tablet (CANCELED) 650 mg, Oral, [...] CALISTA) 0916 (Given - Provider: Penny Brown, CALISTA) chlorhexidine (PERIDEX) 0.12 % oral solution 15 mL, Swish & Spit, 2 TIMES DAILY, First dose on Tue07/14/22 at 1530, Until Discontinued, ICU/Step Down 0900 (Given - Provider: Lauren Crawford RN)2100 (Given - Provider: Lemuel Gilbert, CALISTA) 08 (Given - Provider: Linh Fregoso RN)204 (Given - Provider: Lola Wyatt RN) 0916 (Given - Provider: Penny Brown, CALISTA)2100 (Due) dexamethasone (DECADRON) 4 MG/ML injection (COMPLETED) [...] RN) 08 (Given - Provider: Linh Fregoso RN)204 (Hold/Not Given - Provider: Lola Wyatt [...] Until Discontinued 1200 (Hold/Not Given - Provider: aLuren Crawford RN - Reason: Clinical contraindications)17 04 [...] RN) 0812 (Given - Provider: Linh Fregoso, CALISTA) 0916 (Given - Provider: Penny Brown, CALISTA) OLANZapine (ZyPREXA ZYDIS) disintegrating tablet 10 mg, Oral, AT BEDTIME, First dose on Christen 07/15/22 at 2200, Until Discontinued 2123 (Given - Provider: Lemuel Gilbert, CALISTA) 204 (Given - Provider: Lola Wyatt RN)2100 [...] Down 1840 (Given - Provider: Lauren Joe, CALISTA) ibuprofen (MOTRIN) tablet 600 mg, Oral, EVERY [...] Alon Cotton, CALISTA)0800 (Given - Provider: Lauren Crawford, CALISTA) oxymetazoline (AFRIN) 0.05 % nasal solution 2 [place], Nasal, EVERY 4 HOURS PRN, Starting on Tue07/14/22 at 1516, Until Discontinued, Nosebleed, ICU/Step Down sodium chloride (OCEAN) 0.65 % nasal spray 1 [place], Nasal, EVERY 1 HOUR PRN, Starting on Tue07/14/22 at 1516, Until Discontinued, Congestion, Congestion due to dryness, ICU/Step Down Reason for Visit (unrecogniz ed section and content) Reason Comments New patient, to establish relationship S leep Apnea, Inspire Specialty Diagnoses / Procedures Referred By Casper t Referred To Contact Ent-Otolaryngology Diagnoses Sleep apnea, unspecified type Wiley Mcmanus MD [address] [place] [address] [facility] [address] [place] [address] Referral ID Status Reason Start Date Expiration Date Visits Requested Visits Authorized [id number] Pending Review Transfer of Care[facility] 01/01/2022 01/01/2023 3 3 Reason Onset Date Comments Pre-surgical Evaluation 02/11/2022 Pre-op C OVID testing Reason Onset Date Comments Pre-surgical Evaluation 02/17/2022 Pre-op C OVID testing Reason Onset Date Comments Pre-surgical Evaluation 02/24/2022 Pre-op C OVID testing - results Reason Comments Hospital follow-up Reason Comments New patient, to establish relationship Specialty Diagnoses / Procedures Referred By Casper idaz Referred To Contact Oral Surgery Diagnoses DIONNE (obstructive sleep apnea) Yi Moreno MD [address] [place] [address] iRkki Rodrigues DMD, MD [address] [place] [address] Referral ID Status Reason Start Date Expiration Date V isits Requested Visits Authorized [id number] Pending Review 05/26/2022 05/26/2023 3 3 Reason [...] SAGITTAL SPLIT, BILATERAL Rikki Rodrigues DMD, MD [address] [place] [address] [employer] [address] [place] [address] Phone: [phone] Referral ID Status Reason Start Date Expiration Date Visits Re quested Visits Authorized [id number] 3 3 Reason Comments Post Op Check [...] BE BASED ON THE PRIMARY CLINICAL RECORDS. [facility] [employer] [facility]. provides no warranty or guarantee of the accuracy or completeness of information in this document.
[2024-07-11 14:58] LABS: Anion Gap 12.2; BUN Creatinine Ratio 4.5; Calcium 8.7 mg/dL (8.5-10.1); Carbon Dioxide 29.6 mmol/L (21.0-32.0); Chloride 104 mmol/L (98-107); Estimated GFR (African America >60 (>=60 mL/min/1.73m^2); Estimated GFR (Non-African Ame >60 (>=60 mL/min/1.73m^2); Glucose 94 mg/dL (74-106); Potassium 3.8 mmol/L (3.5-5.1); Sodium 142 mmol/L (136-145)
== END 2024-07-11 14:32 | disposition home or self-care (01) ==
LOC: LAB 14:31
PROVIDERS: PCP Nurse Practitioner; Visit Provider Nurse Practitioner
DX: R92.8 Other abnormal and inconclusive findings on diagnostic imaging of breast (principal); E87.6 Hypokalemia
CPT/HCPCS: 36415; 77065; 80048; G0279

== ENCOUNTER 2024-08-02 14:52 | Outpatient (OUT) | payer OTHER, SELFPAY ==
--- NOTE | 2024-08-02 14:57 | US_ITS ---
The [address] [address] Patient Name: VEDA HEWITT MRN: [id number] date: 1975 Sex: F Assigned Patient Location: Current Patient Location: Accession/Order Number: [id number] Exam Date: 08/02/2024 14:58 Report Date: 08/03/2024 07:41 At the request of: TO PLUMMER Procedure: US pelvis w/ transvaginal EXAMINATION: US pelvis w/ transvaginal HISTORY: Abnormal Uterine Bleeding COMPARISON: No relevant comparison available. FINDINGS: Transabdominal and transvaginal images The uterus is normal in size, contour and myometrial echotexture measuring 8.0 x 4.0 x 5.0 cm per the uterus is anteflexed. Endometrium measures 9 mm, normal. Free fluid in the cervix The right ovary is normal in appearance measuring 2.3 x 1.1 x 1.3 cm. Normal color and Doppler flow The left ovary measures 3.1 x 2.8 x 2.7 cm. Normal color Doppler flow. Identified in the ovary is a 3.0 x 2.2 x 2.3 cm heterogeneous cystic lesion with no definite internal blood flow US/US pelvis w/ transvaginal IMPRESSION: 3 cm left ovarian complex cystic lesion. I favor a complex cyst, hemorrhagic cyst or endometrioma Electronically authenticated by: WILEY POE Date: 08/03/2024 07:41
== END 2024-08-02 14:53 | disposition home or self-care (01) ==
LOC: US 14:52
PROVIDERS: PCP Nurse Practitioner; Visit Provider Obstetrics & Gynecology
DX: N93.9 Abnormal uterine and vaginal bleeding, unspecified (principal); N83.292 Other ovarian cyst, left side
CPT/HCPCS: 76830; 76856

== ENCOUNTER 2024-09-14 16:16 | Outpatient (OUT) | payer OTHER, SELFPAY ==
--- NOTE | 2024-09-14 16:21 | US_ITS ---
The [address] [address] Patient Name: VEDA HEWITT MRN: [id number] date: 1975 Sex: F Assigned Patient Location: Current Patient Location: Accession/Order Number: [id number] Exam Date: 09/14/2024 16:50 Report Date: 09/17/2024 08:31 At the request of: ROSHNI ANDERS Procedure: US pelvis transvaginal EXAMINATION: US pelvis transvaginal HISTORY: Complex ovarian cyst, N83.299 COMPARISON: Ultrasound pelvis 08/02/2024 TECHNIQUE: Transabdominal and/or transvaginal sonographic examination was performed as indicated by examination type. FINDINGS: UTERUS: Normal size and appearance. Uterus size: 7.2 x 3.6 x 4.5 cm ENDOMETRIUM: Normal homogeneous appearance. Endometrial thickness: 6 mm RIGHT OVARY: Normal size and appearance. Duplex Doppler demonstrates normal waveform and flow; resistive index 0.6. Ovary size: 1.3 x 2.0 x 1.5 cm LEFT OVARY: Contains a 1.0 cm benign-appearing cyst. Duplex Doppler demonstrates normal waveform and flow; resistive index 0.5. Ovary size: 1.5 x 1.6 x 2.2 cm CUL-DE-SAC: Unremarkable. No significant free fluid. BLADDER: Unremarkable. OTHER: None. US/US pelvis transvaginal IMPRESSION: 1. Left ovary contains a benign-appearing 1.0 cm cyst. Previously seen larger complex structure is no longer present. Electronically authenticated by: MADDI WINSTON Date: 09/17/2024 08:31
== END 2024-09-14 16:17 | disposition home or self-care (01) ==
LOC: US 16:17
PROVIDERS: Visit Provider Physician Assistant
DX: N83.292 Other ovarian cyst, left side (principal)
CPT/HCPCS: 76830

== ENCOUNTER 2024-09-18 16:36 | Emergency (ER) | payer OTHER, SELFPAY ==
[2024-09-18] VITALS (17 sets, daily range): BP systolic 103–114; BP diastolic 78–82; PULSE 70–82; TEMP 37; O2SAT 95–99; BMI 26.3
--- NOTE | 2024-09-18 16:51 | ED_ITS ---
HPI HPI - General Adult General Chief complaint: Weakness Stated complaint: general weakness Time Seen by Provider: 09/18/24 16:37 Source: patient Mode of arrival: ambulance Limitations: no limitations History of Present Illness HPI narrative: 49-year-old female presents for 3-day history of nausea and vomiting. She states she was constipated but took a laxative and then had a good bowel movement and subsequently had a small amount of diarrhea. She has not had a fever and is not complaining of cough or chest pain or shortness of breath. She feels generally weak. She has not been eating or drinking much. Related Data Home Medications ?Medication ?Instructions ?Recorded ?Confirmed atenolol 100 mg tablet 100 mg PO DAILY 12/20/23 09/18/24 atorvastatin 20 mg tablet 20 mg PO DAILY 12/20/23 09/18/24 cholecalciferol (vitamin D3) 50 50 mcg PO DAILY 12/20/23 09/18/24 mcg (2,000 unit) capsule (Vitamin D3) clonazepam 1 mg tablet 1 mg PO .every PM 12/20/23 09/18/24 dicyclomine 20 mg tablet 40 mg PO BID 12/20/23 09/18/24 levothyroxine 75 mcg tablet 75 mcg PO DAILY 12/20/23 09/18/24 multivitamin 1 tab PO DAILY 12/20/23 09/18/24 psyllium 500 mg capsule 1.56 g PO DAILY 12/20/23 09/18/24 quetiapine 50 mg tablet 50 mg PO BEDTIME 12/20/23 09/18/24 trospium 60 mg capsule,extended 60 mg PO DAILY 12/20/23 09/18/24 release 24 hr venlafaxine 150 mg 150 mg PO DAILY 12/20/23 09/18/24 capsule,extended release 24 hr alosetron 1 mg tablet 1 mg PO .once evenings 09/18/24 09/18/24 loperamide 2 mg capsule 2 mg PO Q6H 09/18/24 09/18/24 Allergies Allergy/AdvReac Type Severity Reaction Status Date / Time No Known Drug Allergies Allergy Verified 09/18/24 16:39 Opioid HPI Opioid Management Most Recent Opioid Data: Last Pain Scale 8 09/18/24 17:25 09/18/24 Last OCT Pain Assessment 09/18/24 17:25 Review of Systems ROS Narrative A ten point review of systems is negative except as noted above. [facility] Medical History (Updated 09/18/24 @ 18:45 by Fortino Gomez MD) High cholesterol ?E78.00 - Pure hypercholesterolemia, unspecified (ICD-10) Microscopic colitis ?K52.839 - Microscopic colitis, unspecified (ICD-10) Overactive bladder ?N32.81 - Overactive bladder (ICD-10) Depression with anxiety ?F41.8 - Other specified anxiety disorders (ICD-10) Hypothyroidism ?E03.9 - Hypothyroidism, unspecified (ICD-10) DIONNE (obstructive sleep apnea) ?G47.33 - Obstructive sleep apnea (adult) (pediatric) (ICD-10) Surgical History (Updated 12/29/23 @ 11:05 by Sara Dyer) S/P breast biopsy, left ?Z98.890 - Other specified postprocedural states (ICD-10) History of bilateral salpingectomy ?Z90.79 - Acquired absence of other genital organ(s) (ICD-10) History of mandibular surgery ?Z98.890 - Other specified postprocedural states (ICD-10) S/P tonsillectomy ?Z90.89 - Acquired absence of other organs (ICD-10) Hx of lithotripsy ?Z98.890 - Other specified postprocedural states (ICD-10) H/O section ?Z98.891 - History of uterine scar from previous surgery (ICD-10) History of cholecystectomy ?Z90.49 - Acquired absence of other specified parts of digestive tract (ICD- 10) Social History Little interest or pleasure in doing things: not at all Feeling down, depressed, or hopeless: not at all Exam Narrative Exam Narrative: Nurses note and vital signs reviewed and patient is not hypoxic. General: The patient appears well and in no apparent distress. Skin: Warm, dry, no pallor noted. There is no rash noted. Head: Normocephalic, atraumatic Eye: Normal conjunctiva, no drainage Ears, Nose, Mouth, and Throat: oral mucosa is moist. Nares patent. Cardiovascular: Regular Rate and Rhythm Respiratory: Patient is in no distress, no accessory muscle use, lungs are clear to auscultation, no wheezing, rales or rhonchi Back: non-tender GI: Normal bowel sounds, no tenderness to palpation, no masses appreciated. No rebound, guarding, or rigidity noted. Musculoskeletal: The patient has no evidence of calf tenderness, no pitting edema, symmetrical pulses noted bilaterally Neurological: A&O, normal speech Psychiatric: Cooperative, generally keeps her eyes closed and does not make good eye contact. Constitutional Vital Signs, click to edit/add: Last Vital Signs Temp 98.6 F 09/18/24 16:39 Pulse 73 09/18/24 18:20 Resp 19 09/18/24 18:20 BP 114/81 09/18/24 18:00 Pulse Ox 96 09/18/24 18:00 O2 Del Method Room Air 09/18/24 16:39 Course Vital Signs Vital signs: Vital Signs Temperature 98.6 F 09/18/24 16:39 Pulse Rate 70 09/18/24 16:39 Respiratory Rate 16 09/18/24 16:39 Blood Pressure 111/82 09/18/24 16:39 Pulse Oximetry 99 09/18/24 16:39 Oxygen Delivery Method Room Air 09/18/24 16:39 Temperature 98.6 F 09/18/24 16:39 Pulse Rate 73 09/18/24 18:20 Respiratory Rate 19 09/18/24 18:20 Blood Pressure 114/81 09/18/24 18:00 Pulse Oximetry 96 09/18/24 18:00 Oxygen Delivery Method Room Air 09/18/24 16:39 Medical Decision Making MDM Narrative Medical decision making narrative: Laboratory analysis is essentially negative. She has blood in her urine but she is on her period. The patient is concerned she might have a kidney stone and it CAT scan is ordered and the patient is signed out to Dr. Suarez Differential Diagnosis Differential Diagnosis: Dehydration, viral illness, UTI, kidney stone Lab Data Lab results reviewed: Yes I reviewed the patient's lab results Labs: Lab Results 09/18/24 09/18/24 Range/Units 16:49 18:17 WBC 4.4 (4.0-11.0) 10^3/uL RBC 4.98 (4.20-5.40) 10^6/uL Hgb 15.8 (12.0-16.0) g/dL Hct 46.0 (36.0-48.0) % MCV 92.4 (81.0-99.0) fL MCH 31.7 (26.7-34.0) pg MCHC 34.3 (29.9-35.2) g/dL RDW 11.8 (11.0-15.0) % Plt Count 178 (150-450) 10^3/uL MPV 11.1 (9.5-13.5) fL Neut % (Auto) 64.2 (43.0-75.0) % Lymph % (Auto) 26.7 (20.5-60.0) % [place] % (Auto) 8.4 (1.7-12.0) % Eos % (Auto) 0.0 L (0.9-7.0) % Baso % (Auto) 0.5 (0.2-2.0) % Neut # (Auto) 2.8 (1.4-6.5) 10^3/uL Lymph # (Auto) 1.2 (1.2-3.8) 10^3/uL [place] # (Auto) 0.4 (0.3-0.8) 10^3/uL Eos # (Auto) 0.0 (0.0-0.7) 10^3/uL Baso # (Auto) 0.0 (0.0-0.1) 10^3/uL Abs Immat Gran (auto) 0.01 (0.00-0.03) 10^3/uL Imm/Tot Granulo (auto) 0.2 (0.0-0.5) % Sodium 139 (136-145) mmol/L Potassium 3.6 (3.5-5.1) mmol/L Chloride 98 (98-107) mmol/L Carbon Dioxide 26.1 (21.0-32.0) mmol/L Anion Gap 18.5 BUN 15.0 (7.0-18.0) mg/dL Creatinine 1.00 (0.55-1.02) mg/dL Est GFR ( Amer) >60 (>=60 mL/min/1.73m^2) Est GFR (Non-Af Amer) 59 L (>=60 mL/min/1.73m^2) BUN/Creatinine Ratio 15.0 Glucose 80 (74-106) mg/dL Calcium 9.2 (8.5-10.1) mg/dL Urine Color Yellow (YELLOW) Urine Clarity Sl cloudy (CLEAR) Urine pH 6.0 (5.0-9.0) Ur Specific Lillian 1.025 (1.005-1.025) Urine Protein 100 A (NEG/TRACE) mg/dL Urine Glucose (UA) Negative (NEGATIVE) mg/dL Urine Ketones 40 A (NEGATIVE) mg/dL Urine Occult Blood Large A (NEGATIVE) Urine Nitrite Negative (NEGATIVE) Urine Bilirubin Small A (NEGATIVE) Urine Urobilinogen 0.2 (0.2-1.0) EU/dL Ur Leukocyte Esterase Trace A (NEGATIVE) Urine RBC 50-75 A (0-2) #/HPF Urine WBC 2-5 A (NONE SEEN) #/HPF Ur Squamous Epith Cells Moderate A (NONE/RARE) #/LPF Urine Crystals None seen (None Seen) #/HPF Urine Bacteria Small A (NONE SEEN) #/HPF Urine Casts Seen A (NONE SEEN) #/LPF Hyaline Casts Rare Urine Mucus Trace A (NONE SEEN) Ur Culture Indicated? Yes ECG Data Attestation: I personally reviewed and interpreted this ECG as follows: (EKG on my interpretation shows sinus rhythm with rate of 69 and no acute change) Discharge Plan Discharge Chief Complaint: Weakness Clinical Impression: Back pain Patient Disposition: Still a Patient Prescriptions / Home Meds: No Action atenolol 100 mg tablet 100 mg PO DAILY atorvastatin 20 mg tablet 20 mg PO DAILY clonazepam 1 mg tablet 1 mg PO .every PM levothyroxine 75 mcg tablet 75 mcg PO DAILY quetiapine 50 mg tablet 50 mg PO BEDTIME Rx Instructions: 50-150 mg venlafaxine 150 mg capsule,extended release 24hr 150 mg PO DAILY dicyclomine 20 mg tablet 40 mg PO BID psyllium 500 mg capsule 1.56 g PO DAILY cholecalciferol (vitamin D3) [Vitamin D3] 50 mcg (2,000 unit) capsule 50 mcg PO DAILY multivitamin Tablet 1 tab PO DAILY trospium 60 mg capsule,extended release 24hr 60 mg PO DAILY Rx Instructions: must be taken on empty stomach at least 1 hour before a meal/food with water only alosetron 1 mg tablet 1 mg PO .once evenings loperamide 2 mg capsule 2 mg PO Q6H Print Language: Macedonian Referrals: Physician,Non-Staff, [Physician] - 1 week
--- OUTSIDE RECORDS SUMMARY | 2024-09-18 16:55 | XMS_ITS | CCD ---
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 Name Role Phone Gena Kirby Unavailable Unavailable Unavailable Gena Kirby Primary Care Provider Unavailable Primary Care Provider Unavailabl e Yi Moreno MD Unavailable Wiley Mcmanus Unavailable Yi Moreno MD Unavailable [phone] Gena Kirby Primary Care Provider MD Wiley Mcmanus Attending Provider MD Yi Moreno Referring Provider Isabel Sin Unavailable Matthew RITCHIE MD, Justin Unavailable Gena Corrales Unavailable Gena Kirby Primary Care Provider [phone] Yi Moreno MD Unavailable Matthew RITCHIE MD, Justin Unavailable Gena Corrales Unavailable [phone] Gena Kirby Primary Care Provider MD Yi Moreno Referring Provider MD Wiley Mcmanus Attending Provider Gena Corrales Unavailable [phone] AICHHOLZ, CLEANING LABORER GENA Admitting Unavailable AICHHOLZ, CLEANING LABORER GENA Attending Unavailable AICHHOLZ, CLEANING LABORER GENA Consulting Unavailable AICHHOLZ, CLEANING LABORER GENA Primary Care Unavailable LEN ., DR ARIZA Attending Unavailable LEN ., DR ARIZA Consulting Unavailable LEN ., DR ARIZA Admitting Unavailable AICHHOLZ, CLEANING LABORER GENA Primary Care Unavailable WEST, DR WILEY Bryant Consulting Unavailable LEN ., DR ARIZA Attending Unavailable AICHHOLZ, CLEANING LABORER GENA Primary Care Unavailable LEN ., DR ARIZA Admitting Unavailable LEN ., DR ARIZA Consulting Unavailable AICHHOLZ, CLEANING LABORER GENA Primary Care Unavailable AICHHOLZ, CLEANING LABORER GENA Admitting Unavailable AICHHOLZ, CLEANING LABORER GENA Attending Unavailable AICHHOLZ, CLEANING LABORER GENA Consulting Unavailable LEN ., DR ARIZA Attending Unavailable AICHHOLZ, CLEANING LABORER GENA Primary Care Unavailable LEN ., DR ARIZA Admitting Unavailable LEN ., DR ARIZA Admitting Unavailable LEN ., DR ARIZA Attending Unavailable AICHHOLZ, CLEANING LABORER GENA Primary Care Unavailable LEN ., DR ARIZA Consulting Unavailable TATETERESAMARTIN Consulting Unavailable MARGARITA II, BERTHA Consulting Unavailable LEN ., DR ARIZA Attending Unavailable AICHHOLZ, CLEANING LABORER GENA Primary Care Unavailable LEN ., DR ARIZA Admitting Unavailable LEN ., DR ARIZA Attending Unavailable AICHHOLZ, CLEANING LABORER GENA Primary Care Unavailable LEN ., DR ARIZA Admitting Unavailable LEN ., DR ARIZA Consulting Unavailable LEN ., DR ARIZA Admitting Unavailable LEN ., DR ARIZA Attending Unavailable AICHHOLZ, CLEANING LABORER GENA Primary Care Unavailable AICHHOLZ, CLEANING LABORER GENA Primary Care Unavailable AICHHOLZ, CLEANING LABORER GENA Attending Unavailable AICHHOLZ, CLEANING LABORER GENA Admitting Unavailable AICHHOLZ, CLEANING LABORER GENA Consulting Unavailable LEN ., DR ARIZA Attending Unavailable LEN ., DR ARIZA Consulting Unavailable AICHHOLZ, CLEANING LABORER GENA Primary Care Unavailable LEN ., DR ARIZA Admitting Unavailable ZIEBER, DR MADDI Wild Consulting Unavailable AICHHOLZ, CLEANING LABORER GENA Consulting Unavailable AICHHOLZ, CLEANING LABORER GENA Primary Care Unavailable AICHHOLZ, CLEANING LABORER GENA Attending Unavailable AICHHOLZ, CLEANING LABORER GENA Admitting Unavailable MISC, DR PETERS Admitting Unavailable MISC, DR PETERS Attending Unavailable MISC, DR PETERS Consulting Unavailable AICHHOLZ, CLEANING LABORER GENA Primary Care Unavailable AICHHOLZ, CLEANING LABORER GENA Primary Care Unavailable AICHHOLZ, CLEANING LABORER GENA Attending Unavailable AICHHOLZ, CLEANING LABORER GENA Admitting Unavailable AICHHOLZ, CLEANING LABORER GENA Consulting Unavailable PROVIDER, UNKNOWN Admitting Unavailable PROVIDER, UNKNOWN Attending Unavailable HERMES, YI Rebollar Referring Unavailabl e WEIDENBECHER, YI S. Admitting [...] Referring Unavailabl Gena Landaverde Primary Care Provider [phone] MD Wiley Mcmanus Attending Provider Louise Johnson Unavailable Maoj Lyman Unavailable Gena Kirby Primary Care Provider KATHRIN Lyman Attending Provider MD David Martinez Attending Provider David Martinez Unavailable MD Wiley Mcmanus Attending Provider Gena Kirby Primary Care Provider [phone] Gena Kirby Primary Care Provider MD Wiley Mcmanus Attending Provider [phone] KATHRIN Lyman Attending Provider Gena Kirby Primary Care Provider [phone] MD Wiley Mcmanus Attending Provider [phone] Oswald Harrington Attending Provider DO Oswald Harrington Attending Provider Gena Kirby Primary Care Provider KATHRIN Lyman Attending Provider KOFI TORRES, GENA Primary Care Unavailable DESIREE SYKES DO Consulting Unavailable HERMES ERNST~[id number], HERMES Beltran Admitting Unavailable HERMES ERNST~[id number], HERMES Beltran Attending Unavailable DESIREE SYKES DO Consulting Unavailable RIO RESERVOIR ENGINEERING CONSULTANT, CHRIS Becerra Consulting Unavailable CHRIS PATE CRNA Consulting Unavailable Kofi BAR WAITER/WAITRESS, Gena Unavailable Magdiel Munoz MD Primary Care Provider Matthew RITCHIE MD, Rikki Unavailable Gena Kirby Primary Care Unavailable Oswald Harrington Admitting Unavailable Oswald Harrington Attending Unavailable Wiley Mcmanus Attending Unavailable Gena Kirby Primary Care Unavailable Wiley Mcmanus Admitting Unavailable Wiley Mcmanus Attending Unavailable Gena Kirby Primary Care Unavailable Wiley Mcmanus Admitting Unavailable Gena Kirby Primary Care Unavailable ScMajo rai Admitting Unavailable ScMajo rai Attending Unavailable Gena Kirby Primary Care Unavailable ScMajo rai M Admitting Unavailable ScMajo rai Attending Unavailable Gena Kirby Primary Care Unavailable Asaad, Imad Admitting Unavailable Asaad, Imad Attending Unavailable RAMESH, LLOYD A Primary Care Unavailable RAMESH, LLOYD A Referring Unavailable MAJO CATALAN Attending Unavailable RAMESH, LLOYD A Primary Care Unavailable RAMESH, LLOYD A Referring Unavailable ALAYNAMAJO LIVINGSTON Attending Unavailable RMAESH, LLOYD A Primary Care Unavailable RAMESH, LLOYD A Referring Unavailable ALAYNA, MAJO Andino Attending Unavailable RAMESH, LLOYD A Primary Care Unavailable RAMESH, LLOYD A Referring Unavailable ALAYNA, MAJO Andino Attending Unavailable RAMESH, LLOYD A Primary Care Unavailable RAMESH, LLOYD A Referring Unavailable ALAYNAMAJO LIVINGSTON Attending Unavailable AICHHOLZ, GENA Andino Referring Unavailable AICHHOLZ, GENA J Primary Care Unavailable ALAYNA, MAJO Andino Attending Unavailable AICHHOLZ, GENA Attending Unavailable CHAGO, AUREA Attending Unavailable AICHHOLZ, GENA Attending Unavailable AICHHOLZ, GENA Attending Unavailable AICHHOLZ, GENA Attending Unavailable AICHHOLZ, GENA Attending Unavailable AICHHOLZ, GENA Attending Unavailable CHAGO, AUREA Attending Unavailable Aichholz FABRIC AND TEXTILE 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 - BAR WAITER/WAITRESS, Gena Andino. Primary Care Provide r ELIN BALLARD Referring Unavailable GENA KIRBY. Primary Care Unavailable GENA KIRBY. Primary Care Unavailable ELIN BALLARD Referring Unavailable Medications Current Medications Medication Drug Class(es) Dates Sig (Normalized) Sig (Original) acetaminophen 500 mg oral tablet (20 sources) Start: 07-17-2022 take 1 tablet by mouth every six hours as needed for pain acetaminophen (TYLENOL) 500 MG tablet Take 1 Tablet by mouth every 6 hours as needed for Pain or Fever. 30 Tablet 07/17/2022 10:05 AM EST 07/17/2022 Active Start: 07-15-2022 acetaminophen (TYLENOL) 650 MG/20.3ML oral solution SF Start: 07-14-2022 End: 07-15-2022 take 650 mg by mouth every four hours 650 mg, Oral, EVERY 4 HOURS, First dose on Tue07/14/22 at 1530, Until Discontinued, ICU/Step Down Start: 02-25-2022 take 2 tablets by mo [facility] every four hours as needed acetaminophen (TYLENOL) 325 mg tablet Take 2 Tablets by mouth every 4 hours as needed. 30 Tablet 02/26/2022 Active Start: 02-25-2022 take 1 tablet by rosy th every eight hours as needed for pain acetaminophen (Tylenol 8 Hour) 650 MG CR tablet Take 1 Tablet by mouth every 8 hours as needed for Pain or Fever. 30 Tablet 02/25/2022 Active Start: 01-05-2022 End: 01-05-2022 acetaminophen (TYLENOL) tabl et 650 mg Tylenol CAPS ALEXANDRA E 1 CAPSULE Daily prn Quantity: 0 Refills: 0 Ordered: 14-Oct-2021 DO Active alosetron 1 mg oral tablet (15 sources) Serotonin-3 Receptor Antagonist Start: 06-11-2024 take 1 tablet by mouth in the morning alosetron (Lotronex) 1 MG tablet Take 1 mg by mouth in the morning and 1 mg before bedtime. 06/11/2024 Active Start: 05-16-2024 End: 06-11-2024 take 1 tablet by mouth once daily Alosetron (Lotronex) 0.5 mg tablet Discontinued 0.5 MG PO Daily May 15, 2024 11:00pm June 11, 2024 3:00pm Ampicillin / Sulbactam (2 sources) Penicillin-class Antibacterial, [...] 02-25-2022 atenolol (TENO RMIN) tablet Start: 08-25-2021 End: 06-25-2024 take 1 tablet by mouth once daily atenolol (Tenormin) 100 MG tablet Indications: Primary hypertension (CMS/HCC) Take 1 tablet (100 mg) by mouth Daily 90 tablet 1 03/27/2024 Active atorvastatin 20 mg oral tablet (20 sources) HMG-CoA Reductase Inhibitor Start: 10-14-2023 End: 09-17-2024 take 1 tablet by mouth in the evening atorvastatin (Lipitor) 20 MG tablet Indications: Mixed hyperlipidemia (CMS/HCC) Take 1 tablet (20 mg) by mouth in the evening 90 tablet 1 06/19/2024 09/17/2024 Active Start: 07-14-2022 take 20 mg by mouth once daily 20 mg, Oral, DAILY, First dose on Tue07/14/22 at 1800, Until Discontinued, ICU/Step Down Start: 02-26-2022 atorvastatin ( LIPITOR) tablet Start: 01-01-2022 atorvastatin ( LIPITOR) 20 mg tablet Take 20 mg by mouth. 01/01/2022 Active calcium polycarbophil (9 sources) Calcium Polycarb ophil (FIBER-CAPS PO) Take by mouth as needed Active Calcium Polycarb ophil (FIBER-CAPS PO) Take by mouth as needed 0 Suspended Calcium Polycarb ophil (FIBER-CAPS PO) Take by mouth as needed 0 Active chlorhexidine gluconate 1.2 mg/ml mouthwash (14 sources) Start: 07-17-2022 take 15 mL by mouth twice daily chlorhexidine (Peridex) 0.12 % oral solution Take 15 mL by mouth 2 times daily. 1 mL 3 07/17/2022 Active Start: 07-14-2022 15 mL, Swish & Spit, 2 TIMES DAILY, First dose on Tue07/14/22 at 1530, Until Discontinued, ICU/Step Down cholecalciferol 0.05 mg oral capsule (17 sources) Vitamin D Start: 10-14-2023 take 1 capsule by mouth once daily Cholecalciferol (Vitamin D3) 50 mcg (2,000 unit) capsule Active 1 CAP PO Daily October 14, 2023 12:00am FreeTextSi capsule Orally Once a day; Note: Source Status: Taking; Provider: Yonathan Diaz ( ) take 1 capsule by [facility] every twenty-four hours Vitamin D3 50 MCG [...] Until Discontinued, Anxiety, ICU/Step Down Start: 01-06-2022 Clonazepam 1 m g tablet Active MG PO October 14, 2023 12:00am FreeTextSi tablet Orally twice as needed; Note: Source Status: Taking; Provider: Yonathan Diaz ( ) take 1 tablet by rosy th twice daily as needed clonazePAM (KLONOPIN) 1 MG tablet Take 1 tablet by mouth 2 times daily as needed. Active take 1 tablet by rosy th once daily as needed KlonoPIN 1 MG Oral Tablet TAKE 1 TABLET Daily prn Quantity: 0 Refills: 0 Ordered: 14-Oct-2021 DO Active dicyclomine hydrochloride 10 mg oral capsule (20 sources) Anticholinergic Start: 08-12-2023 End: 11-02-2023 take 1 capsule by mouth in the morning, then take 1 capsule by mouth in the evening, then take 1 capsule by mouth at bedtime dicyclomine (Bentyl) 10 MG capsule Take 1 capsule by mouth in the morning and 1 capsule in the evening and 1 capsule before bedtime. 08/12/2023 Active Start: 08-12-2023 End: 09-10-2024 take 1 capsule by mouth four times daily Dicyclomine 10 mg capsule Discontinued 10 MG PO Four times daily 120 30 November 02, 2023 3:03pm September 10, 2024 3:17pm 0.4 ml enoxaparin sodium 100 mg/ml prefilled [...] sources) Potassium-sparing Diuretic, Thiazide Diuretic Start: 10-14-2021 End: 05-28-2022 take 1 tablet by mouth every other day at bedtime triamterene-hydrochlorothiazide (MAXZIDE) 37.5-25 MG tablet Take 1 Tablet by mouth every other day. HS 12/14/2021 Active Start: 10-14-2021 take 1 tablet by rosy th once daily Triamterene-HCTZ 37.5-25 MG Oral Tablet TAKE 1 TABLET DAILY DIRECTED. Quantity: 90 Refills: 3 Ordered: 14-Oct-2021 Eileen Nichols MD Start : 14-Oct-2021 Active stop lasix and potassium ibuprofen 800 mg oral tablet (20 sources) Nonsteroidal Anti-inflammatory Drug Start: 04-16-2024 End: 06-19-2024 take 1 tablet by mouth every eight hours as needed for pain Ibuprofen 800 mg tablet Active 800 MG PO Every 8 hours as needed for pain 30 April 15, 2024 11:00pm Start: 07-14-2022 End: 07-24-2022 take 1 tablet [...] 1800, Until Discontinued, ICU/Step Down Start: 07-08-2022 End: 06-25-2024 take 1 tablet by mouth before mealtime levothyroxine (Synthroid, Levoxyl) 75 MCG tablet Indications: Other specified hypothyroidism (CMS/HCC) Take 1 tablet (75 mcg) by mouth in the morning. Take before meals. 90 tablet 1 03/27/2024 Active Start: 01-05-2022 take 1 tablet by rosy th once daily in the morning levothyroxine (SYNTHROID) 25 MCG tablet TAKE 1 TABLET BY MOUTH EVERY DAY IN THE AM ON AN EMPTY STOMACH. DO NOT EAT OR DRINK FOR 2 HOURS AFTER TAKING 01/05/2022 Active take 1 tablet by rosy th once daily in the morning Levothyroxine Sodium 75 MCG 1 tablet in the morning on an empty stomach Orally Once a day Active Levothyroxine So dium Active loperamide hydrochloride 2 mg oral capsule (20 sources) Opioid Agonist Start: 12-06-2023 take 1 capsule by mouth every six hours as needed for diarrhea loperamide (Imodium) 2 MG capsule Take 2 mg by mouth every 6 (six) hours if needed for diarrhea 01/18/2024 Active magnesium oxide 400 mg oral tablet (3 sources) Start: 08-06-2024 End: 09-05-2024 take 1 tablet by mouth once daily magnesium oxide (Mag-Ox) 400 MG tablet Indications: Night sweats Take 1 tablet (400 mg) by mouth Daily 30 tablet 6 08/06/2024 09/05/2024 Active 2 ml metoclopramide 5 mg/ml prefilled syringe (1 source) Dopamine-2 Receptor Antagonist Start: 01-05-2022 End: 01-05-2022 10 mg, IntraVENous, ONCE PRN, 1 dose, Starting on Tue01/05/22 at 1558, Until Tue01/05/22 at 2359, Nausea Secondary antiemetic therapy. PACU only Multiple Vitamins-Minerals (THERAPEUTIC MULTIVITAMIN-MINERALS ) tablet (6 sources) take 1 tablet by mouth once daily Multiple Vitamins-Mineral s (THERAPEUTIC MULTIVITAMIN-MIN ERALS) tablet Take 1 tablet by mouth daily 0 Suspended take 1 tablet by mouth once gagan y Multiple Vitamins-Minerals (THERAPEUTIC MULTIVITAMIN-MINERALS) tablet Take 1 tablet by mouth daily 0 Active Multivitamin (One Daily Multivitamin) tablet (13 sources) Start: 10-14-2023 take 1 tablet by mouth once daily Multivitamin (One Daily Multivitamin) tablet Active 1 TAB PO Daily October 14, 2023 1:00am Start: 10-14-2023 take 1 tablet by rosy th once daily Multivitamin (One Daily Multivitamin) tablet Active 1 TAB PO Daily October 14, 2023 12:00am Multivitamin preparation (9 sources) Multivitamin Act kat multivitamin with minerals (Centrum) 9-200 mg-mcg tablet split tablet (15 sources) Start: take 1 tablet by mouth [...] Take 5 mg by mouth at bedtime. 11/17/2021 Active take 2 tablets by mo uth at bedtime OLANZapine (ZyPREXA) 5 MG tablet Take 10 mg by mouth. hs Active ondansetron 4 mg oral tablet (16 sources) Serotonin-3 Receptor Antagonist Start: 09-10-2024 take 1 tablet by mouth every eight hours as needed for nausea and vomiting Ondansetron Hcl 4 mg tablet Active 4 MG PO Every 8 hours as needed for nausea and vomiting September 10, 2024 12:00am Start: 10-14-2023 End: 09-10-2024 take 1 tablet by mouth every eight hours as needed for nausea and vomiting Ondansetron Hcl 8 mg tablet Discontinued 8 MG PO Q8H as needed for nausea and vomiting 11 03October 14, 2023 12:00am September 10, 2024 3:16pm Start: 07-14-2022 take 4 mg intravenou sly [...] MG tablet Take 5 mg by mouth. 01/06/2022 Active oxyCODONE hydrochloride 5 mg oral [...] (ROXICODONE) immed iate release tablet 5 mg Peppermint oil (1 source) Start: 09-10-2024 peppermint oil Active PO September 10, 2024 12:00am phentermine hydrochloride 37.5 mg oral tablet (15 sources) Sympathomimetic Amine Anorectic Start: 06-30-2022 take 1 tablet by mouth once daily Phentermine HCl 37.5 MG TABS Take 1 Tablet by mouth daily. 06/30/2022 Active potassium chloride 20 meq extended release oral tablet (20 sources) Start: 09-12-2024 End: 12-11-2024 take 1 tablet by mouth once daily potassium chloride CR (K-Tab) 20 MEQ ER tablet Indications: Hypokalemia Take 1 tablet (20 mEq) by mouth Daily 90 tablet 1 09/12/2024 12/11/2024 Active Start: 10-14-2023 End: 06-25-2024 take 1 tablet by mouth once daily at mealtime Potassium Chloride 20 mEq tablet extended release Active 1 TAB PO Daily October 14, 2023 12:00am FreeTextSi tablet with food Orally Once a day; Note: Source Status: Taking; Provider: Yonathan Diaz ( ) take 20 mEq by mouth once daily potassium chloride (KLOR-CON) 20 MEQ packet Take 20 mEq by mouth daily Active take 1 tablet by rosy th every twenty-four hours Potassium Chloride ER 20 MEQ 1 tablet with food Orally Once a day Active Probiotic (9 sources) Probiotic Active Probiotic Product (PROBIOTIC DAILY PO) (9 sources) Probiotic Produc t (PROBIOTIC DAILY PO) Take by mouth as needed Active Probiotic Produc t (PROBIOTIC DAILY PO) Take by mouth as needed 0 Suspended Probiotic Produc t (PROBIOTIC DAILY PO) Take by mouth as needed 0 Active pseudoephedrine hydrochloride 30 mg oral tablet (12 sources) alpha-Adrenergic Agonist Start: 07-17-2022 take 1 tablet by mouth every four hours as needed for congestion pseudoephedrine (SUDAFED) 30 MG tablet Take 1 Tablet by mouth every 4 hours as needed for Congestion. 30 Tablet 07/17/2022 Active Psyllium Husk (Fiber (Psyllium Husk)) 0.4 gram capsule (13 sources) Start: 10-14-2023 Psyllium Husk (Fiber (Psyllium Husk)) 0.4 gram capsule Active 0.8 GM PO Twice daily October 14, 2023 1:00am Start: 10-14-2023 Psyllium Husk (Fiber (Psyllium Husk)) 0.4 gram capsule Active 0.8 GM PO Twice daily October 14, 2023 12:00am QUEtiapine 50 mg oral tablet (20 sources) Atypical Antipsychotic Start: 10-14-2023 Quetiap ine 50 mg tablet Active MG PO October 14, 2023 12:00am FreeTextSi tablet twice daily Orally twice daily; Note: Source Status: Taking; Provider: Yonathan Diaz ( ) Start: 09-14-2022 take 2 tablets by mo [facility] at bedtime QUEtiapine (SEROquel) 50 MG tablet Take 100 mg by mouth at bedtime 11/23/2023 Active Start: 08-25-2021 take 1 tablet by rosy th once daily QUEtiapine Fumarate 100 MG Oral Tablet TAKE 1 TABLET BY MOUTH DAILY Quantity: 30 Refills: 0 Ordered: 28-Sep-2021 DO Start : 25-Aug-2021 Active SEROquel 50 MG 1 tablet twice daily Orally twice daily Active saccharomyces boulardii 250 mg oral capsule (13 sources) Start: 10-14-2023 take 1 capsule by mouth once daily Saccharomyces Boulardii (Daily Probiotic (S. Boulardii)) 250 mg capsule Active 250 MG PO Daily October 14, 2023 12:00am sodium chloride 0.111 meq/ml nasal solution (16 sources) Start: 07-17-2022 take 1 spray(s) nasal route twice daily as needed for congestion sodium chloride ([place] Nasal [place]) 0.65 % nasal spray Use 1 [place] in each nostril as needed for Congestion (2 puffs nasally twice daily). 1 mL 3 07/17/2022 Active Start: 07-14-2022 1 [place], Nasal , EVERY 1 HOUR PRN, Starting [...] frequent line interruptions/ long duration, Starting on 5/17/22 at 1558 For piggyback infusion, administer at [...] capsule Take 1 Capsule by mouth daily. 01/06/2022 Active 24 hr trospium chloride 60 mg extended release oral capsule (20 sources) Cholinergic Muscarinic Antagonist Start: 11-02-2023 End: 08-06-2024 take 1 capsule by mouth once daily trospium (SANCTURA) 60 MG CP24 extended release capsule Indications: Urge incontinence , OAB (overactive bladder) TAKE 1 CAPSULE BY MOUTH DAILY 90 capsule 1 04/03/2024 Active Start: 11-02-2023 take 1 capsule by mo uth every twenty-four hours Trospium 60 mg capsule,extended release 24hr Active 60 MG PO November 01, 2023 11:00pm take 1 tablet by rosy th twice daily Trospium Chloride 20 MG TAKE 1 TABLET BY MOUTH TWICE DAILY Oral for 30 Days Active 24 hr venlafaxine 75 mg extended release oral capsule (20 sources) Serotonin and Norepinephrine Reuptake Inhibitor Start: 07-14-2022 take 75 mg by mouth once daily 75 mg, Oral, DAILY, First dose on Tue07/14/22 at 1800, Until Discontinued, ICU/Step Down Start: 11-30-2021 take 1 capsule by mo ut once daily at mealtime Venlafaxine (Effexor Xr) 150 mg capsule,extended release 24hr Active 1 CAP PO Daily October 14, 2023 12:00am FreeTextSi capsule with food Orally Once a day; Note: Source Status: Taking; Provider: Yonathan Diaz ( ) Start: 11-30-2021 take 1 capsule by mo [facility] once daily at mealtime Venlafaxine (Effexor Xr) 75 mg capsule,extended release 24hr Active 75 MG PO Daily October 14, 2023 12:00am FreeTextSi capsule with food Orally Once a day; Note: Source Status: Taking; Provider: Yonathan Diaz ( ) take 1 tablet by rosy once daily venlafaxine (EFFEXOR) 75 MG tablet Take 1 tablet by mouth daily Active take 1 capsule by [facility] every twenty-four hours in the morning venlafaxine XR (Effexor XR) 150 MG 24 hr capsule Take 1 capsule by mouth in the morning. Active VITAMIN D, CHOLECALCIFEROL, PO (20 sources) VITAMIN D, EDU CALCIFEROL, PO Take by mouth daily Active VITAMIN D, EDU CALCIFEROL, PO Take by mouth. Active VITAMIN D, EDU CALCIFEROL, PO Take by mouth 0 Suspended VITAMIN D, EDU CALCIFEROL, PO Take by mouth 0 Active Vitamin D3 (5 sources) Vitamin D3 Activ e Completed/Discontinued Medications Medication Drug Class(es) Dates Sig (Normalized) Sig (Original) amoxicillin 875 mg / clavulanate 125 mg oral tablet (6 sources) Penicillin-class Antibacterial Start: 05-02-2024 End: 06-19-2024 amoxicillin-clavul anate (Augmentin) 875-125 MG tablet 05/02/2024 06/19/2024 Discontinued (Therapy completed) Start: 07-17-2022 End: 07-21-2022 take 1 tablet by mouth twice daily amoxicillin-clavulanate (Augmentin) 875-125 MG per tablet Take 1 Tablet by mouth 2 times daily for 4 days. 8 Tablet 0 07/17/2022 07/21/2022 Active ARIPiprazole (5 sources) Atypical Antipsychotic Abilify N ot-Taking azelastine hydrochloride 0.137 mg/actuat metered dose nasal spray (5 sources) Histamine-1 Receptor Antagonist Start: End: azelastine (Astelin) 0.1 % nasal spray 05/02/2024 06/19/2024 Discontinued (Therapy completed) benzonatate 200 mg oral capsule (5 sources) Non-narcotic Antitussive Start: End: benzonatate (Tessalon) 200 MG capsule 05/02/2024 06/19/2024 Discontinued (Therapy completed) bifidobacterium animalis [id number] unt / lactobacillus acidophilus [id number] unt oral capsule (2 sources) Probiotic CAPS U SE DIRECTED. Quantity: 0 Refills: 0 Ordered: 14-Oct-2021 DO Active bisacodyl 5 mg delayed release oral tablet (1 source) Stimulant Laxative Start: take 10 mg by mouth once daily as needed 10 mg, Oral, DAILY PRN, Starting on Tue07/14/22 at 1516, Until Discontinued, Constipation, ICU/Step Down budesonide 3 mg delayed release oral capsule (20 sources) Corticosteroid Start: End: take 3 tablets by mouth once daily Budesonide Discontinued 9 MG PO Once 90 November 02, 2023 4:02pm December 12, 2023 3:56pm 3 tablets once daily for 1 month. Start: 08-10-2023 End: 12-12-2023 take 3 tablets by mouth once daily Budesonide 3 mg capsule,delayed,extend.release Discontinued 9 MG PO Once 90 November 02, 2023 3:02pm December 12, 2023 2:56pm 3 tablets once daily for 1 month. calcium chloride 0.0014 meq/ ml / potassium [...] Push, 2 TIMES DAILY, First dose on Tue22 at 1430, Until Discontinued, Post-op 2 ml fentaNYL 0.05 mg/ml injection (1 source) Opioid Agonist Start: 01-05-2022 50 mcg, IntraV ENous, EVERY 5 MIN PRN, 2 doses, Starting on 01/05/22 at 1558, Until Discontinued, Pain Severe (7-10) For Phase I. If Phase II oral narcotics have been administered in the last 60 minutes, do not administer IV narcotics unless specifically approved by provider. PACU only 24 hr fesoterodine fumarate 8 mg extended release oral tablet (14 sources) Start: 10-14-2023 End: 11-02-2023 take 1 tablet by mouth once daily Fesoterodine 8 mg tablet extended release 24 hr Discontinued 8 MG PO Daily October 14, 2023 12:00am November 02, 2023 2:38pm FreeTextSig: TAKE 1 TABLET BY MOUTH DAILY [...] HYDROmorphone (DILAUDID) 0.2 MG/ML injection 0.2 mg IB Guard (3 sources) Start: 06-11-2024 End: 09-10-2024 IB Guard Discontinued PO as needed June 10, 2024 11:00pm September 10, 2024 3:16pm Start: 06-11-2024 IB Guard Activ e PO as needed June 10, 2024 11:00pm Start: 06-11-2024 IB Guard Activ e PO June 11, 2024 12:00am Ketorolac (9 sources) Nonsteroidal Anti-inflammatory Drug, Cyclooxygenase Inhibitor Start: 06-05-2015 Toradol per 15 mg 15 May, 2015 60 mg lidocaine 5 mg/ml topical spray (20 sources) Antiarrhythmic, Amide Local Anesthetic Start: 04-16-2024 End: 06-19-2024 lidocaine (Xylocaine) 5 % ointment 04/16/2024 06/19/2024 Discontinued (Therapy completed) Start: 04-16-2024 End: 05-02-2024 Lidocaine 0.5 % aerosol Twic e daily 04/16/2024 05/02/2024 Discontinued (Therapy completed) Start: 04-16-2024 End: 05-16-2024 Lidocaine 5 % ointment Disco ntinued 1 APPLIC TOPICAL Twice daily 20 03April 15, 2024 11:00pm May 16, 2024 2:45pm Start: 04-16-2024 End: 05-16-2024 Lidocaine Discontinued 1 TRE LIC TOPICAL Twice daily 20 03April 16, 2024 12:00am May 16, 2024 3:45pm Start: 04-16-2024 Lidocaine Acti ve 1 APPLIC TOPICAL Twice daily 20 03April 16, 2024 12:00am mesalamine (12 sources) Aminosalicylate Start: 12-12-2023 End: 12-12-2023 take 1 capsule by mouth once daily Mesalamine (Apriso) 0.375 gram capsule,extended release 24hr Discontinued 1.5 GM PO Daily December 11, 2023 11:00pm December 12, 2023 3:08pm Start: 12-12-2023 End: 12-12-2023 take 1 capsule by mouth once daily Mesalamine (Apriso) 0.375 gram capsule,extended release 24hr Discontinued 1.5 GM PO Daily December 12, 2023 12:00am December 12, 2023 4:08pm metFORMIN hydrochloride 500 mg oral tablet (20 sources) Biguanide Start: 10-14-2023 End: 07-13-2024 take 1 tablet by mouth once daily Metformin 500 mg tablet Discontinued 1 TAB PO Daily October 14, 2023 12:00am July 13, 2024 2:05pm FreeTextSi tablet with a meal Orally Once a day; Note: Source Status: Taking; Provider: Yonathan Diaz ( ) Start: 07-14-2022 take 500 mg by mouth once daily 500 mg, Oral, DAILY, First dose on Tue07/14/22 at 1800, Until Discontinued, ICU/Step Down Start: 05-30-2022 End: 08-06-2024 take 1 tablet by mouth once daily at dinner metFORMIN XR (Glucophage-XR) 500 MG 24 hr tablet Indications: Insulin resistance TAKE 1 TABLET BY MOUTH EVERY DAY WITH THE EVENING MEAL 90 tablet 3 12/26/2023 Active methylPREDNISolone (14 sources) Corticosteroid Start: 02-25-2022 [...] DO Active oseltamivir 75 mg oral capsule (12 sources) Neuraminidase Inhibitor Start: 10-14-19 End: 11-02-19 take 1 capsule by mouth twice daily Oseltamivir (Tamiflu) 75 mg capsule Discontinued 75 MG PO Twice daily 05 26October 14, 2023 12:00am November 02, 2023 2:39pm oxymetazoline hydrochloride 0.5 mg/ml nasal spray (1 source) Start: 07-14-20 2 [place], Nasal, EVERY 4 HOURS PRN, Starting on Tue07/14/22 at 1516, Until Discontinued, Nosebleed, ICU/Step Down potassium phosphate 15 mmol injection in D5W (1 source) Start: 07-16-20 End: 07-16-20 potassium phosphate 15 mmol injection in D5W predniSONE 20 mg oral tablet (12 sources) Start: 10-14-19 End: 11-02-19 take 1 tablet by mouth twice daily Prednisone 20 mg tablet Discontinued 20 MG PO Twice daily 05 26October 14, 2023 12:00am November 02, 2023 2:39pm sennosides, half-way 1.76 mg/ml oral solution (20 sources) Start: 02-26-20 take 8.8 mg by mouth at bedtime 8.8 mg (5 mL), Oral, AT BEDTIME, First dose on Tue02/25/22 at 2200, Until Discontinued, Post-op Start: 02-25-2022 take 1 tablet by rosy th once daily as needed for constipation senna (SENOKOT) 8.6 MG tablet Take 1 Tablet by mouth daily as needed for Constipation. 30 Tablet 02/25/2022 Active sucralfate 100 mg/ml oral suspension [...] 02/25/2022 Active valACYclovir 1000 mg oral tablet (15 sources) Herpesvirus Nucleoside Analog DNA Polymerase Inhibitor, Herpes Simplex Virus Nucleoside Analog DNA Polymerase Inhibitor, Herpes Zoster Virus Nucleoside Analog DNA Polymerase Inhibitor Start: 04-16-2024 End: 06-19-2024 valACYclovir (Valtrex) 1 g tablet Every 8 hours 04/16/2024 06/19/2024 Discontinued (Therapy completed) Start: 04-16-2024 End: 05-16-2024 Valacyclovir 1 gram tablet Discontinued 1000 MG PO Every 8 hours 11 03April 15, 2024 11:00pm May 16, 2024 2:46pm Start: 04-16-2024 End: 05-16-2024 take 1000 mg [...] Onset: 11-12-2022 Episodic Disorders of lipid metabolism (19 sources) Hyperlipidemia, unspecified; Translations: [Mixed hyperlipidemia] Onset: 11-16-2022 08-18-2023 Chronic Disorders of teeth and jaw (5 sources) Edentulous; Translations: [Complete loss of teeth, unspecified cause, unspecified class] 07-31-2024 Chronic Essential hypertension (20 sources) Benign essential hypertension; Translations: [Benign essential hypertension] Onset: 11-16-2022 11-02-2023 Chronic Genitourinary symptoms and ill-defined conditions (4 sources) Urge incontinence of urine; Translations: [Urge incontinence] Onset: 02-23-2022 02-23-2022 Chronic Genitourinary symptoms and ill-defined conditions (14 sources) Agustin hematuria; Translations: [Gross hematuria] Onset: 11-19-2021 11-19-2021 Episodic Immunizations and screening for infectious disease (20 sources) Patient encounter status; Translations: [Encounter for [...] Onset: 05-11-2022 Chronic Miscellaneous mental health disorders (16 sources) Not getting enough sleep; Translations: [Insufficient sleep syndrome] Chronic Mood disorders (20 sources) Acute depression; Translations: [Acute depression] Onset: 11-09-2021 Resolved: 11-09-2021 11-19-2021 Chronic Mood disorders (2 sources) Mood disorders; Translations: [DEPRESSION UNSPECIFIED] Onset: 11-16-2022 Noninfectious gastroenteritis (20 sources) Microscopic colitis; Translations: [Microscopic colitis, unspecified] Onset: 08-08-2023 11-02-2023 Chronic Other aftercare (2 sources) Other long term acute care registered nurse (current) drug therapy; Translations: [OTH EN[employer]ONE [employer]DER [employer]IPPER CURRENT DRUG THERAPY] Onset: 11-16-2022 Episodic Other complications of ; puerperium affecting management of mother (7 sources) Deliveries by ; Translations: [Delivery by section] 03-13-2024 Episodic Other diseases of bladder and urethra (20 sources) Overactive bladder; Translations: [Overactive bladder] Onset: 02-23-2022 02-23-2022 Chronic Other gastrointestinal disorders (13 sources) Irritable bowel syndrome with diarrhea; Translations: [Irritable bowel syndrome with diarrhea] Onset: 06-19-2024 06-11-2024 Chronic Other gastrointestinal disorders (5 sources) Irritable bowel syndrome with diarrhea; Translations: [Irritable bowel syndrome] 06-11-2024 Chronic Other gastrointestinal disorders (16 sources) Diarrhea; Translations: [Diarrhea, unspecified] 11-02-2023 Episodic Other gastrointestinal disorders (7 sources) Diarrhea, unspecified; Translations: [Diarrhea] Episodic Other gastrointestinal disorders (13 sources) Fecal urgency; Translations: [Fecal urgency] Episodic Other gastrointestinal disorders (12 sources) Urgent desire for stool; Translations: [Fecal urgency] 11-02-2023 Episodic Other gastrointestinal disorders (5 sources) Abdominal distension (gaseous); Translations: [Flatulence, eructation, and gas pain] 12-12-2023 Episodic Other gastrointestinal disorders (7 sources) Constipation; Translations: [Constipation, unspecified] 03-13-2024 Episodic Other gastrointestinal disorders (6 sources) Constipation, unspecified; Translations: [Constipation, unspecified] Onset: 05-08-2024 03-13-2024 Episodic Other nervous system disorders (16 sources) Sleep-wake schedule disorder, delayed phase type; [...] nutritional; endocrine; and metabolic disorders (2 sources) Overweight in adulthood with body mass index of 25 or more but less than 30; Translations: [Body mass index (BMI) 27.0-27.9, adult] 07-31-2024 Episodic Other nutritional; endocrine; and metabolic disorders (3 sources) Body mass index (BMI) 27.0-27.9, adult; Translations: [Body Mass Index 27.0-27.9, adult] 07-31-2024 Episodic Other skin disorders (2 sources) Night sweats; Translations: [Generalized hyperhidrosis] 08-06-2024 Episodic Ovarian cyst (2 sources) Complex ovarian cyst; Translations: [Other ovarian cyst, unspecified side] 08-06-2024 Episodic Rehabilitation care; fitting of prostheses; and adjustment of devices (5 sources) Follow-up status; Translations: [Encounter for adjustment and management of other implanted nervous system device] 07-31-2024 Episodic Residual codes; unclassified (20 sources) Obstructive sleep apnea syndrome; Translations: [Obstructive sleep apnea (adult)(pediatric)] Onset: 01-15-2022 Chronic Residual codes; unclassified (20 sources) Sleep apnea; Translations: [Sleep apnea, unspecified] 11-19-2021 Chronic Residual codes; unclassified (16 sources) Insomnia; Translations: [Other insomnia] 03-13-2024 Chronic Residual codes; unclassified (9 sources) Obstructive sleep apnea (adult) (pediatric); Translations: [Obstructive sleep apnea (adult)(pediatric)] Onset: 11-09-2021 Resolved: 11-09-2021 Chronic Residual codes; [...] (1 source) Other specified health status Episodic Residual codes; unclassified (2 sources) Past history of procedure; Translations: [Presence of neurostimulator] 07-31-2024 Episodic Residual codes; unclassified (3 sources) Presence of neurostimulator; Translations: [Other postprocedural status] 07-31-2024 Episodic Screening and history of mental health and substance abuse codes (2 sources) Ex-smoker; Translations: [Personal history of tobacco use] Episodic Comment on above: Quit 2019; Substance-related disorders (1 source) Nicotine dependence, chewing tobacco, uncomplicated; Translations: [NICOTINE DEPEND CHEW TOBACCO UNCOMP] Onset: 04-19-2024 Chronic Thyroid disorders (20 sources) Hypothyroidism; Translations: [Hypothyroidism, unspecified] Onset: 11-09-2021 Resolved: 11-09-2021 Chronic Thyroid disorders (12 sources) Disorder of thyroid gland; Translations: [Disorder of thyroid, unspecified] 11-02-2023 Episodic Unclassified (1 source) ENCOUNTER OPENED IN ERROR Unclassified (3 sources) CONTACT W/AND (SUSP) EXPOS COVID-19; Translations: [CONTACT W/AND (SUSP) EXPOS COVID-19] Onset: 12-04-2022 Unclassified (1 source) Diarrhea, unspecified; Translations: [Diarrhea, unspecified] Onset: 08-08-2023 Urinary tract infections (9 sources) Recurrent urinary tract infection; Translations: [Urinary tract infection, site not specified] 11-19-2021 Episodic Past or Other Problems Problem Classification Problem Date Documented Da te Episodic/Chronic Fluid and electrolyte disorders (18 sources) Hypokalemia; Translations: [Hypokalemia] Onset: 08-24-2023 08-24-2023 Episodic Noninfectious gastroenteritis (15 sources) Chronic diarrhea; Translations: [Noninfective gastroenteritis and colitis, unspecified] Onset: 08-24-2023 08-24-2023 Episodic Other gastrointestinal disorders (20 sources) Constipation alternates with diarrhea; Translations: [Other specified symptoms and signs involving the digestive system and abdomen] Onset: 01-25-2024 Resolved: 06-19-2024 12-12-2023 Episodic Other gastrointestinal disorders (20 sources) Abdominal bloating; Translations: [Abdominal distension (gaseous)] Onset: 01-25-2024 12-12-2023 Episodic Other gastrointestinal disorders (6 sources) Other specified symptoms and signs involving the digestive system and abdomen; Translations: [Other symptoms involving digestive system] Onset: 12-14-2023 12-12-2023 Episodic Other nutritional; endocrine; and metabolic disorders (20 sources) Body mass index 25-29 - overweight; Translations: [Overweight] Onset: 04-17-2024 04-17-2024 Episodic Other nutritional; endocrine; and metabolic disorders (15 sources) Unintentional weight loss; Translations: [Abnormal weight loss] Onset: 01-25-2024 Resolved: 06-19-2024 06-19-2024 Episodic Other screening for suspected conditions (not mental disorders or infectious disease) (20 sources) Echocardiogram abnormal; Translations: [Nonspecific (abnormal) findings on radiological and other examination of other intrathoracic organs] Onset: 02-16-2022 Episodic Other upper respiratory infections (15 sources) Acute pharyngitis, unspecified; Translations: [Acute upper [...] with and (suspected) exposure to covid-19 Z20.822 Viral infection (20 sources) Herpes zoster; Translations: [Zoster without complications] Onset: 04-17-2024 Resolved: 06-19-2024 04-16-2024 Episodic Results Test Name Value Interpretation Reference Range Facility Cult,Urineon 09-14-2024 Cult,Urine Specimen Description .CLEAN CATCH URINE Special Requests Site: Urine Culture NO SIGNIFICANT GROWTH Report Status FINAL 09/14/2024 Normal [facility] Comment on above: Performed By: #### U #### [facility] [address] [place], [place] [id number] Dye Operator: Taiwo Wray MD [facility] [address] [place] [address] Dye Operator: Wiley Wheatley MD [facility] URINALYSIS, WITH MICROS COPICon 09-13-2024 Interpretation and review of laboratory results Abnormal [facility] BACTERIA TRACE Abnormal NONE [facility] BILIRUBIN, SEMIQT,UR Negative NEG [facility] BLOOD, URINE Negative NEG [facility] CLARITY, URINE Clear [facility] Yellow YEL [facility] EPITHELIAL CELLS [address] [facility] GLUCOSE,SEMI-QNT,UR Negative NEG mg/dL [facility] KET[facility], URINE Negative NEG mg/dL [facility] LEUKOCYTE ESTERASE Negative NEG [facility] Negative NEG [facility] PH,UR 6 5.0 - 9.0 [facility] PROTEIN, SEMI-QNT,UR Negative NEG mg/dL [facility] SPEC. GRAVITY,UR <1.005 Low 1.010 - 1.020 [facility] URINE RBC'S 0 TO 2 [facility] URINE WBC'S 0 TO 2 [facility] UROBILINOGEN,UR Normal 0.0 - 1 .0 EU/dL [facility] Original Ordering Provider: ELIN BALLARD [facility] Urinalysis w/ Microon 2024 Bacteria TRACE Abnormal NONE [facility] Comment on above: Performed By: #### U AMIC #### [facility] [address] [place] [address] [place] [address] Dye Operator: Wiley Wheatley MD Bilirubin, SemiQt,Ur Negative Normal NEG [facility] Comment on above: Performed By: #### U AMIC #### [facility] [address] [place] [address] [place] [address] Dye Operator: Wiley Wheatley MD Blood, Urine Negative Normal NEG [facility] Comment on above: Performed By: #### U AMIC #### [facility] [address] [place] [address] Dye Operator: Wiley Wheatley MD Clarity (U) Clear Normal CLEAR [facility] Comment on above: Performed By: #### U AMIC #### [facility] [address] [place] [address] Dye Operator: Wiley Wheatley MD Color (U) Yellow Normal L [facility] Comment on above: Performed By: #### U AMIC #### [facility] [address] [place], [place] [id number] Dye Operator: Wiley Wheatley MD Epithelial cells LM Ql (Urine sed) 2 TO 5 Normal 0-25 [facility] Comment on above: Performed By: #### U AMIC #### [facility] [address] [place], [place] [id number] Dye Operator: Wiley Wheatley MD Glucose Ql (U) Negative Normal NEG [facility] in Hospital Comment on above: Performed By: #### U AMIC #### [facility] [address] [place] [address] [place]. [place], [place] [id number] Dye Operator: Wiley Wheatley MD Ketones Ql (U) Negative Normal NEG [facility] in Hospital Comment on above: Performed By: #### U AMIC #### [facility] [address] [place] [address] Dr. [place], [facility] Dye Operator: Wiley Wheatley MD Leukocyte esterase Test strip Ql (U) Negative Normal NEG [facility] Comment on above: Performed By: #### U AMIC #### [address] [place], [facility] Dye Operator: Wiley Wheatley MD Nitrite,Ur Negative Normal NEG [facility] Comment on above: Performed By: #### U AMIC #### [facility] [address] [place] [address] Dr. [place], [facility] Dye Operator: Wiley Wheatley MD PH,Ur 6.0 Normal 5.0-9.0 [facility] Comment on above: Performed By: #### U AMIC #### [address] [place] [address] Dye Operator: Wiley Wheatley MD Protein Ql (U) Negative Normal NEG [facility] in Hospital Comment on above: Performed By: #### U AMIC #### [facility] [address] [place] [address] Dr. [place], [place] [id number] Dye Operator: Wiley Wheatley MD Spec. [place],Ur <1.005 Low 1.010-1.020 [facility] Comment on above: Performed By: #### U AMIC #### [facility] [address] [place], [place] [id number] Dye Operator: Wiley Wheatley MD Urine RBC's 0 TO 2 Normal 0-2 [facility] Comment on above: Performed By: #### U AMIC #### [facility] [address] [place], [place] [id number] Dye Operator: Wiley Wheatley MD Urine WBC's 0 TO 2 Normal 0-5 [facility] Comment on above: Performed By: #### U AMIC #### [facility] [address] [place], [place] [id number] Dye Operator: Wiley Wheatley MD Urobilinogen,Ur Normal Normal 0.0-1.0 [facility] Comment on above: Performed By: #### U AMIC #### [facility] [address] [place] [id number] Dye Operator: Wiley Wheatley MD Urinalysis with Microscopico n 09-13-2024 Bacteria LM Ql (Urine sed) TRACE Abnormal None [facility] Bilirubin Ql (U) Negative NEGATIVE [facility] Clarity (U) Clear Clear [facility] Color (U) Yellow Yellow [facility] Epithelial cells LM.HPF (Urine sed) [#/Area] 2 TO 5 [facility] Glucose Test strip (U) [Mass/Vol] Negative NEGATIVE mg/dL [facility] Hemoglobin Auto test strip Ql (U) Negative NEGATIVE [facility] Interpretation and review of laboratory results Abnormal [facility] Ketones (U) [Mass/Vol] Negative NEGAT KAT mg/dL [facility] Leukocyte esterase Test strip Ql (U) Negative NEGATIVE [facility] Nitrite Ql (U) Negative NEGATIVE [place] [facility] pH (U) 6.0 [pH] 5.0 - 9.0 [facility] Protein (U) [Mass/Vol] Negative NEGAT KAT mg/dL [facility] RBC LM.HPF (Urine sed) [#/Area] 0 TO 2 [facility] Specific gravity (U) [Rel density] Low 1.010 - 1.020 [facility] Urob[facility] Qn (U) Normal 0.0 - 1. 0 EU/dL [facility] WBC LM.HPF (Urine sed) [#/Area] 0 TO 2 [facility] XR KUBon 05-08-2024 XR KUB [facility] Main [place] [address] [place] [address] XRay Report Signed Patient: Isabelle Hewitt I MR#: [id number] : 1975 Acct:[id number] Age/Sex: 49 / F ADM Date: 05/08/24 Loc: D Room: Type: [facility] Attending Dr: Majo Lyman APRN Copies [...] Candace Marte M.D.05/08/2024 5:27 PM Dictation Location: [place] [address] Transcribed By: [facility] 05/08/24 [id number] Dictated By: Candace Marte MD 05/08/241725 Signed By: 05/08/241726 Normal [facility] SARS-COV-2 AG*on 05-07-2024 SARS-CoV-2 (COVID-19) RNA JOHNNIE+probe Ql (Unsp spec) Negative NEGATIVE [facility] Comment on above: This test has not be en FDA cleared or approved, but has been [...] is terminated or authorization is revoked sooner. [facility] ALL THYROXINE (T4) FREEon Free T4 [Mass/Vol] 0.66 ng/dL Low 0.76 - 1. 46 ng/dL [facility] Interpretation and review of laboratory results Abnormal [facility] 12-29-2023 L Specimen: [id number] Received: 12/29/23 Status: [facility] Num: [id number] Spec Type: Surgical Subm Dr: Maddi Winston MD Tissues: A Breast Core CALCIFICATIONS (LT BREAST LIQ MICRO) Procedures: HE/12, Gross/Micro L4 Age/ Patient Sex Location Account Attending Physician Isabelle Hewitt I 48/F LABELL [id number] Oswald Len SPEC NUM: [id number] RECD: 12/29/23 STATUS: [facility] NUM: [id number] ANGEL LUIS: 12/29/23- SUBM DR: Maddi Winston MD ENTERED: 12/29/[address]: Loc,Lab Oswald Len SPEC TYPE: Surgical DEPT: OLGA VILLALOBOS ORDERED: HE/12, Gross/Micro L4 ORDERED: , Gross/Micro L4 Pathological Diagnosis Classifications, left breast, [...] Clinical history: Stereotactic breast BX CPT Codes 34150 ---- ---- Specimen: [id number] Received: 12/29/23 Status: [facility] Num: [id number] Spec Type: Surgical Subm Dr: Maddi Winston MD Tissues: A Breast Core CALCIFICATIONS (LT BREAST LIQ MICRO) Procedures: , Gross/Micro L4 ---- Patient: Isabelle Hewitt I [id number] (Continued) ---- Signed (signature on file) Jef Yanes MD 01/02/24 1630 Normal [facility] XR KUBon 12-14-2023 XR KUB [facility] [place] [address] XRay Report Signed Patient: Isabelle Hewitt I MR#: [id number] : 1975 Acct:[id number] Age/Sex: 48 / F ADM Date: 12/14/23 Loc: Room: Type: [facility] Attending Dr: Wiley Mcmanus MD Copies [...] MD 12/14/231825 Signed By: 12/14/231826 Normal [facility] XR KUB [facility] [place] [address] XRay Report Signed Patient: Isabelle Hewitt I MR#: [id number] : 1975 Acct:[id number] Age/Sex: 48 / F ADM Date: 12/14/23 Loc: XD Room: Type: [facility] Attending Dr: Majo Lyman APRN [...] renal collecting system. Impression dictated by: Yi Dhal M.D.12/14/2023 6:27 PM Dictation Location: RADIO-PC-13 Transcribed By: SANTA 12/14/231826 Dictated By: Yi Dahl II, MD 12/14/231825 Signed By: 12/16/23 0907 Normal [facility] Cytology Cervical or vaginal smear or scraping studyon 11-22-2023 [facility] - Microbiology an d Antimicrobial susceptibilityOrdered By: Louise Johnson on 10-14-2023 SARS-CoV-2 (COVID-19) RNA JOHNNIE+probe Ql (Unsp spec) [facility] CT UROGRAMon 10-01-2023 CT UROGRAM EXAMINATION: CT [...] Oliver Walker MD 10/01/23 Final result Normal [facility] Creatinine w/GFRon 4 Creatinine [Mass/Vol] 0.7 mg/dL Normal 0.5-0.9 [facility] Comment on above: Performed By: #### C REG #### [facility] [address] [place], [place] [address] Dye Operator: Wiley Wheatley MD GFR/1.73 sq M.predicted among non-blacks MDRD (S/P/Bld) [Vol rate/Area] mL/min/{1.73_m2} Normal >60 [facility] Comment on above: Result Comment: These [...] secretion. Performed By: #### C REG #### [facility] [address] [place], [place] [address] Dye Operator: Wiley Wheatley MD HCG ( test) IA.oswaldo oscar Ql (U)Ordered By: David Martinez on 08-08-2023 HCG ( test) Ql (U) Negative [facility] HCG,Urineon 08-08-2023 Beta HCG ( test) Ql (U) Negative Normal [facility] Comment on above: Result Comment: PERF ORMED BY: [place] [address] PATHOLOGIST [employer]PER TAPPER CHRIS GUERRERO M.D. Performed By: #### U HCG #### [address] 08-08-2023 L -- ---- Specimen: [id number] Received: 08/08/23 Status: [facility] Num: [id number] Spec Type: Surgical Subm Dr: David Martinez MD Tissues: A Colon Biopsy (RNDM COL BX) Procedures: GREGG/Nella, Gross/Micro L4 ---- Age/ Patient Sex Location Account Attending Physician ---- Isabelle Hewitt I 48/F [id number] David Martinez MD ---- SPEC NUM: [id number] RECD: 08/08/23 STATUS: [facility] NUM: [id number] ANGEL LUIS: 08/08/23- SUBM DR: David Martinez MD ENTERED: 08/08/23 [facility] DR: LOKESH TYPE: Surgical DEPT: S ENTERED BY: [id number] RECV BY: [id number] ORDERED: GREGG/Nella, Gross/Micro L4 ORDERED: GREGG/Nella, Gross/Micro L4 Pathological Diagnosis Random colonic biopsies: [...] microscopic examination confirms the diagnosis. CPT Codes 04187 ---- ---- Specimen: [id number] Received: 08/08/23 Status: MALCOLM Cardona Num: [id number] Spec Type: Surgical Subm Dr: David Martinez MD Tissues: A Colon Biopsy (RNDM COL BX) Procedures: GREGG/Nella, Gross/Micro L4 ---- Patient: Isabelle Hewitt I [id number] (Continued) ---- Signed (signature on file) Desmond Sarah MD 08/09/23 0957 Normal [facility] Amylase [Enzymatic activity/ volume] in Serum or PlasmaOrdered By: Majo Lyman on 06-30-2023 Amylase [Catalytic activity/Vol] 42 U/L 29-103 [facility] C reactive protein [Mass/vol ume] in Serum or PlasmaOrdered By: Majo Lyman on 06-30-2023 CRP [Mass/Vol] < 0.5 mg/dL 0.0-0.5 [facility] Calprotectin [Mass/mass] in StoolOrdered By: Majo Lyman on 06-30-2023 Calprotectin (Stl) [Mass/Mass] 36 ug/g 0-120 [facility] Comment on above: Concentration Interp retation Follow-Up< 5 - 50 ug/g Normal None>50 -120 ug/g Borderline Re-evaluate in 4-6 weeks >120 ug/g Abnormal Repeat as clinically indicatedPerformed at: [facility] [address] [id number] Director: Andrew Cameron MD, Phone: [phone] Elastase.pancreatic [Mass/ma ss] in StoolOrdered By: Majo Lyman on 06-30-2023 Elastase.pancreatic (Stl) [Mass/Mass] 327 >200 [facility] Comment on above: Result Units: ug Nighat st./g Severe Pancreatic Insufficiency: <100 Moderate Pancreatic Insufficiency: 100 - 200 Normal: >200Performed at: [facility] [address] [id number] Director: Andrew Cameron MD, Phone: [phone] Erythrocyte sedimentation ra te by Photometric methodOrdered By: Majo Lyman on 06-30-2023 ESR Photometric method (Bld) [Velocity] 51 mm/hr 0-19 [facility] HIV 1 and HIV-2 antibody ass ay with HIV-1 p24 antigen detectionOrdered By: Majo Lyman on 06-30-2023 HIV 1+2 Ab+HIV1 p24 Ag IA Ql Non-Reactive Non Reactive [facility] Comment on above: HIV NegativeHIV-1/HI V-2 antibodies and HIV-1 p24 antigen were NOTdetected. There is no laboratory evidence of HIV infection.Performed at: [facility] [address] [id number] Director: Fran Guthrie PhD, Phone: [phone] IgA [Mass/volume] in Serum o r PlasmaOrdered By: Majo Lyman on 06-30-2023 IgA [Mass/Vol] 505 mg/dL 87-352 [facility] Comment on above: Performed at: [facility] [address] [id number] Director: Fran Guthrie PhD, Phone: [phone] Lipase [Enzymatic activity/v olume] in Serum or PlasmaOrdered By: Majo Lyman on 06-30-2023 Lipase [Catalytic activity/Vol] 45.0 U/L 11.0-82.0 [facility] No Panel InformationOrdered By: Majo Lyman on 06-30-2023 Endomysial IgA Antibody Negative Negative [facility] Serum gliadin peptide IgA an tibody assay (units/volume)Ordered By: Majo Lyman on 06-30-2023 Gliadin peptide IgA Qn (S) 7 units 0-19 [facility] Comment on above: Negative 0 - 19 Weak Positive 20 - 30 Moderate to Strong Positive >30 Serum gliadin peptide IgG an tibody assay (units/volume)Ordered By: Majo Lyman on 06-30-2023 Gliadin peptide IgG Qn (S) 2 units 0-19 [facility] Comment on above: Negative 0 - 19 Weak Positive 20 - 30 Moderate to Strong Positive >30 Serum tissue transglutaminas e (tTG) IgA antibody assay (units/volume)Ordered By: Majo Lyman on 06-30-2023 tTG IgA Qn (S) <2 U/mL 0-3 [facility] Comment on above: Negative 0 - 3 Weak Positive 4 - 10 Positive >10 Tissue Transglutaminase (tTG) has been identified as the endomysial antigen. Studies have demonstr- ated that endomysial IgA antibodies have over 99% specificity for gluten sensitive enteropathy. Serum tissue transglutaminas e (tTG) IgG antibody assay (units/volume)Ordered By: Majo Lyman on 06-30-2023 tTG IgG Qn (S) <2 U/mL 0-5 [facility] Comment on above: Negative 0 - 5 Weak Positive 6 - 9 Positive >9 Thyrotropin [Units/volume] i n Serum or PlasmaOrdered By: Majo Lyman on 06-30-2023 TSH Qn 0.57 m[IU]/L 0.45-5.33 [facility] COVID + FLU Quick Testingon 06-07-2023 SARS-CoV-2 (COVID-19) RNA JOHNNIE+probe Ql (Unsp spec) Negative [employer] Other COVID + FLU Quick Testing Negative [employer] Other Quick Strepon 06-07-2023 S. pyogenes Org specific cx Ql (Throat) Negative [employer] Other Quick Strep [employer] Other Telephone Encounteron 2022 [employer] Authentication Interface Message Text Situation: Patient called in Background: She says that she wanted to let provider know taht she would be following a different dr to his new practice for follow up treatment Assessment: NA Recommendation: Please advise and george patient if needed at Phone numbers Thank You Normal [facility] [employer] Authentication Interface Message Text Called and left voicemail for patient. Post-op Home Sleep Test reviewed from [facility], and there is considerable improvement. Pre-op AHI is 102, now down to 31. Pre-op O2 Carlene of 71%, now up to 82%. However, still with considerable desat time. There are notes from Dr. Moreno evaluating for INSPIRE I presume, but nothing since November. Asked patient for call back or Chairishhart message with if she has been able to continue with Dr. Moreno at his new office, or if she needs referral to another [facility] ENT. -montrell Normal [facility] MG MAMM SCREEN 3D LEEANNE CADon 01-18-2023 MG MAMM SCREEN 3D LEEANNE CAD Patient: ISABELLE HEWITT IBrad Exam Date: 01/18/2023 : 1975 Gender:F Ordering : BRIAN [employer] Admission #: [id number] Family : Order #: [id number] CLICK HERE TO VIEW EXAM RADIOLOGY REPORT [...] Treatments None Family Cancers None LOCATION: [facility] BREAST COMPOSITION: Heterogeneously dense,which may obscure [...] M.D. on 01/19/2023 at 13:37 Normal [facility] Urinalysis with Microscopico n 12-13-2022 Bacteria, UA TRACE Abnormal None [facility] [employer] Bilirubin Urine Negative NEGATIVE [facility] Roomish Color, UA Yellow Yellow [facility] [employer] Epithelial Cells UA 0 TO 2 [facility] [employer] Glucose Auto test strip (U) [Mass/Vol] Negative NEGATIVE [facility] Interpretation and review of laboratory results Abnormal [facility] Ketones (U) [Mass/Vol] Negative NEGATIVE [facility] Leukocyte esterase Auto test strip Ql (U) Negative NEGATIVE [facility] [employer] Nitrite Auto test strip Ql (U) Negative NEGATIVE [facility] Protein (U) [Mass/Vol] 6.5 mg/dL 5.0 - 9.0 [facility] Protein (U) [Mass/Vol] Negative NEGATIVE [facility] [employer] RBC clumps Auto (Urine sed) [#/Area] None [facility] [employer] [facility] Specific [place], UA Low 1.010 - 1.020 [facility] Turbidity UA Clear Clear [facility] Urine Hgb Negative NEGATIVE [facility] Urobilinogen, Urine Normal Normal [facility] WBC, UA None [facility] Covid-19 PCR ([facility])on SARS-CoV-2 (COVID-19) RNA JOHNNIE+probe Ql (Unsp spec) Not detected Normal NOT DETECTED [facility] Comment on above: Result Comment: This test is not yet approved or cleared by the [place] FDA. When there are no FDA-approved or cleared tests available, and other criteria are met, FDA can make tests available under an emergency access mechanism called an Emergency Use Authorization (EUA). The EUA for this test is supported by the Counting Machine Operator of Health and Human Service's (HHS's) declaration [...] consistent with SARS-CoV-2. Performed By: #### C VDTBH #### [facility] [address] [place] [address] Dr. Stephanie Gibbs INFLUENZA A AND B AGon 11-26 INFLUANE SEE BELOW Normal [facility] Comment on above: Result Comment: Nega tive for Flu A protein angiten. Infection due to Flu A cannot be ruled out. Flu A angiten in the sample may be below the detection limit of the test. Performed By: #### I NFLUAB #### [facility] [address] [place] [address] Dr. Stephanie Gibbs INFLUBNEG SEE BELOW Normal [facility] Comment on above: Result Comment: Nega tive for Flu B protein antigen. Infection due to Flu B cannot be ruled out. Flu B antigen in the sample may be below the detection limit of the test. Performed By: #### I NFLUAB #### [facility] [address] [place] [address] Dr. Stephanie Gibbs INFLUENZA A AG Negative Normal NEGATIVE SEE COMMENT [facility] Comment on above: Performed By: #### I NFLUAB #### [facility] [address] [place] [address] Dr. Stephanie Gibbs INFLUENZA B AG Negative Normal NEGATIVE SEE COMMENT [facility] Comment on above: Performed By: #### I NFLUAB #### [facility] [address] [place] [address] Dr. Stephanie Gibbs SYMPTOMATIC COVID-19 ANTIGEN on 11-26-2022 EUA Statement SEE BELOW Normal [facility] Comment on above: Result Comment: [...] sooner. Performed By: #### C BC #### [facility] [address] [place] [address] Dr. Stephanie Gibbs SARS-CoV-2 (COVID-19) RNA JOHNNIE+probe Ql (Unsp spec) Negative Normal NEGATIVE [facility] Comment on above: Performed By: #### C BC #### [facility] [address] [place] [address] Dr. Stephanie Gibbs Telephone Encounteron 2022 [employer] Authentication Interface Message Text Requesting sleep study results and next steps. Please advise. Normal [facility] CBC AUTO DIFFon 11-12-2022 BASO # 0.1 103/ul Normal 0.0-0.1 [facility] Comment on above: Performed By: #### C BC #### [facility] [address] [place] [address] Dr. Stephanie Gibbs Basophils/100 WBC (Bld) 0.9 % Normal 0.2-2.0 [facility] Comment on above: Performed By: #### C BC #### [facility] [address] [place] [address] Dr. Stephanie Gibbs EO # 0.3 103/ul Normal 0.0-0.7 [facility] Comment on above: Performed By: #### C BC #### [facility] [address] [place] [address] Dr. Stephanie Gibbs Eosinophils/100 WBC (Bld) 4.7 % Normal 0.9-7.0 [facility] Comment on above: Performed By: #### C BC #### [facility] [address] [place] [address] Dr. Stephanie Gibbs Erythrocyte distribution width (RBC) [Ratio] 13.4 % Normal 11.0-15.0 [facility] Comment on above: Performed By: #### C BC #### [facility] [address] [place] [address] Dr. Stephanie Gibbs Hematocrit (Bld) [Volume fraction] 43.0 % Normal 36.0-48.0 [facility] Comment on above: Performed By: #### C BC #### [facility] [address] [place] [address] Dr. Stephanie Gibbs Hemoglobin (Bld) [Mass/Vol] 13.9 g/dL Normal 12.0-16.0 [facility] Comment on above: Performed By: #### C BC #### [facility] [address] [place] [address] Dr. Stephanie Gibbs IG # 0.01 10e3/ul Normal 0.00-0.03 [facility] Comment on above: Performed By: #### C BC #### [facility] [address] [place] [address] Dr. Stephanie Gibbs IG % 0.2 % Normal 0.0-0.5 [facility] Comment on above: Performed By: #### C BC #### [facility] [address] [place] [address] Dr. Stephanie Gibbs LYMPH # 2.3 103/ul Normal 1.2-3.8 [facility] Comment on above: Performed By: #### C BC #### [facility] [address] [place] [address] Dr. Stephanie Gibbs Lymphocytes/100 WBC (Bld) 36.6 % Normal 20.5-60.0 [facility] Comment on above: Performed By: #### C BC #### [facility] [address] [place] [address] Dr. Stephanie Gibbs MANUAL DIFF REQ NO Normal [facility] Comment on above: Performed By: #### C BC #### [facility] [address] [place] [address] Dr. Stephanie Gibbs MCH (RBC) [Entitic mass] 29.7 pg Normal 26.7-34.0 [facility] Comment on above: Performed By: #### C BC #### [facility] [address] [place] [address] Dr. Stephanie Gibbs MCHC (RBC) [Mass/Vol] 32.3 g/dL Normal 29.9-35.2 [facility] Comment on above: Performed By: #### C BC #### [facility] [address] [place] [address] Dr. Stephanie Gibbs MCV (RBC) [Entitic vol] 91.9 fL Normal 81.0-99.0 [facility] Comment on above: Performed By: #### C BC #### [facility] [address] [place] [address] Dr. Stephanie Gibbs MONO # 0.5 103/ul Normal 0.3-0.8 [facility] Comment on above: Performed By: #### C BC #### [facility] [address] [place] [address] Dr. Stephanie Gibbs Monocytes/100 WBC (Bld) 8.3 % Normal 1.7-12.0 [facility] Comment on above: Performed By: #### C BC #### [facility] [address] [place] [address] Dr. Stephanie Gibbs NEUT # 3.2 103/ul Normal 1.4-6.5 [facility] Comment on above: Performed By: #### C BC #### [facility] [address] [place] [address] Dr. Stephanie Gibbs Neutrophils/100 WBC (Bld) 49.3 % Normal 43.0-75.0 [facility] Comment on above: Performed By: #### C BC #### [facility] [address] [place] [address] Dr. Stephanie Gibbs Platelet mean volume (Bld) [Entitic vol] 9.6 fL Normal 9.5-13.5 [facility] Comment on above: Performed By: #### C BC #### [facility] [address] [place] [address] Dr. Stephanie Gibbs PLT 250 103/ul Normal 150-450 [facility] Comment on above: Performed By: #### C BC #### [facility] [address] [place] [address] Dr. Stephanie Gibbs RBC 4.68 106/ul Normal 4.20-5.40 [facility] Comment on above: Performed By: #### C BC #### [facility] [address] [place] [address] Dr. Stephanie Gibbs WBC 6.4 103/ul Normal 4.0-11.0 [facility] Comment on above: Performed By: #### C BC #### [facility] [address] [place] [address] Dr. Stephanie Gibbs POINT OF CARE GLUCOSEon 10-21 Glucose [Mass/Vol] 97 mg/dL Normal 74-106 [facility] Comment on above: Performed By: #### P OCGLUC #### [facility] [address] [place] [address] Dr. Stephanie Gibbs PREG QUANT HCGon 11-12-2022 HCG QUANT 3 mIU/mL Normal [facility] Comment on above: Performed By: #### C BC #### [facility] [address] [place], [place] [address] Dr. Stephanie Gibbs HCG RANGE SEE BELOW Normal [facility] Comment on above: Result Comment: 5-50 0.2-1 WEEK 50-500 1-2 WEEKS 100-5,000 2-3 WEEKS 500-10,000 3-4 WEEKS 1,000-50,000 4-5 WEEKS 10,000-100,000 5-6 WEEKS 15,000-200,000 6-8 WEEKS 10,000-100,000 2-3 MONTHS Performed By: #### C BC #### [facility] [address] [place], [place] [address] Dr. Stephanie Gibbs Telephone Encounteron 2022 [employer] Authentication Interface Message Text Opened in error Normal [facility] Telephone Encounteron 2022 [employer] Authentication Interface Message Text Called patient and left voicemail. Advised that order for post-op PSG was faxed to [facility] [place]. Left number to call to schedule study at her convenience ([phone]) Normal [facility] Progress Noteson 10-19-2022 [employer] Authentication Interface Message Text CC: sleep disordered [...] residual base of tongue obstruction. Normal [facility] Telephone Encounteron 2022 [employer] Authentication Interface Message Text PT calling back to check status of her FMLA paperwork from [employer]. I verified the correct fax # PT was using ( [phone]) I called over to PS dept , spoke to Seferino and he stated to have the PT to send it to the e-mail address [email or web address] PT will put ATTN: to Dr. Rodrigues. PT asks to have the paperwork filled out HOLA as it it due soon ( PT didn't state a sate just that it was due) Please call PT once received Normal [facility] Telephone Encounteron 2022 [employer] Authentication Interface Message Text Patient calling in to see if her FMLA papers were received. Paperwork not scanned into the chart at this time. Please call the patient with confirmation of receipt of the FMLA papers at [phone]. Thank you! Normal [facility] Progress Noteson 09-08-2022 [employer] Authentication Interface Message Text Teaching Physician Note: [...] physician. Rikki Rodrigues DMD, MD Normal [facility] Telephone Encounteron 2022 [employer] Authentication Interface Message Text PT calling in stating she will be sending new FMLA forms via fax tomorrow due to the library being closed today. PT states Dr. Rodrigues has to fill that paperwork out just like he did for [employer]. PT states the company she works for switched [employer]. Please call PT if any questions. PT was just seen on 08/30/22 Normal [facility] FREE T4on 09-02-2022 Free T4 [Mass/Vol] 1.01 ng/dL Normal 0.76-1.46 [facility] Comment on above: Performed By: #### F T4 #### [facility] [address] [address] [address] Stephanie Gibbs TSHon 09-02-2022 TSH 0.745 uIU/mL Normal 0.358-3.740 [facility] Comment on above: Performed By: #### T SH #### [facility] [address] [address] [address] Stephanie Gibbs Telephone Encounteron 2022 [employer] Authentication Interface Message Text PT calling in stating she had new FMLA forms to be faxed to Dr. Rodrigues. PT stated her job was going through [employer] and now is going through [employer]. saw PT for surgery on 07/14. PT had a televisit follow up on 07/23, but has cancelled every other follow up on 08/02 , 08/13 AND 08/30. PT stated Dr. Rodrigues had her off work since 07/14/22-08/30/2022. Please see social media marketing analyst- dates are different Please reach out to PT to discuss and when forms are ready to be filled out [phone] Normal [facility] Patient Instructionson 08-30 Colorer Machine Authentication Interface Message Text With clean hands massage gums under your upper lip daily at night time No food restrictions Follow up with your dentist We will contact your Sleep Center in [place] to have a Sleep Study completed in 1.5 months. Normal [facility] Progress Noteson 08-30-2022 Colorer Machine Authentication Interface Message Text [facility] [...] -Complete sleep study with Dr. Mcmanus in [place], [place] in 1.5 months -Follow up with patient's general dentist, Sinan Jones DDS for denture adjustment Follow-Up: After new sleep study Follow up sooner with new or worsening symptoms. Sinan Jones DDS [facility] [address] [facility] [place] [address] Wiley Mcmanus MD [facility] [address] [place] [id number] Seferino Vaz DMD [facility] Resident Normal [facility] Urinalysis with Microscopico n 08-12-2022 Bacteria, UA 2+ Abnormal None [facility] Bilirubin Urine Negative NEGATIVE [facility] Color, UA Yellow Yellow [facility] Epithelial Cells UA 0 TO 2 [facility] Glucose, Ur Negative NEGATIVE [facility] [...] TO 2 [facility] Specific [place], UA High 1.010 - 1.020 [facility] Turbidity UA Cloudy Abnormal Clear [facility] Urine Hgb 1+ Abnormal NEGATIVE [facility] Urobilinogen, Urine Normal Normal [facility] WBC, UA 50 TO 100 [facility] Telephone Encounteron 2021 [employer] Authentication Interface Message Text Called the patient twice this week to remind her regarding the follow up this Tuesday (08/13/22) and to offer to follow up sooner if she prefers. Patient did not answer. Message was left. Also attempted to call the alternative work number listed. Was unable to reach the patient at this number. Jerel Villegas DDS, MD FS- PGY4 [phone] Normal [facility] Telephone Encounteron 2021 [employer] Authentication Interface Message Text Called pt. No answer. LVM with callback instructions. Per Dr. Rodrigues, we will not write any work excuse notes or prescribe any pain meds until pt is seen in person for follow up. Oliver Rogers DMD Normal [facility] [employer] Authentication Interface Message Text Pt called because [...] options if that is the case. Email: [email or web address] Contact pt @[phone] for questions/concerns Normal [facility] Telephone Encounteron 2021 [employer] Authentication Interface Message Text Patient called in [...] Please call the patient to advise at [phone]. Thank you! Normal [facility] Telephone Encounteron 2021 [employer] Authentication Interface Message Text Spoke with patient and instructed her to come in earlier Tuesday afternoon, preferably between 1:00 and 2:00 pm. Also reminded her to bring dentures with her as we would like to assess her occlusion with dentures in place. Patient voiced understanding and agreed to arrive early for her appointment on Tuesday. Mikal Rodgers DMD metal alloy scientist, PGY-3 Team Pager: [phone] Normal [facility] Telephone Encounteron 2021 [employer] Authentication Interface Message Text Patient called stating she needs a back to work slip. Requested a call back [phone]. Thank you! Normal [facility] Progress Noteson 07-23-2022 [employer] Authentication Interface Message Text [facility] [...] new or worsening symptoms. Mikal Rodgers DMD metal alloy scientist, PGY-3 Team Pager: [phone] Normal [facility] Progress Noteson 07-19-2022 [employer] Authentication Interface Message Text Initial pre-surgical workup photos: Normal [facility] BASIC METABOLIC PANELon 11-2 Anion gap [Moles/Vol] 13 mmol/L Normal 10-20 [facility] Comment on above: Performed By: #### MILO Mattson CH8 #### [facility] [address] [place], [place], Calcium [Mass/Vol] 7.9 mg/dL Low 8.4-10.4 [facility] Comment on above: Performed By: #### MILO Mattson CH8 #### [facility] [address] [place], [place], Chloride [Moles/Vol] 105 mmol/L Normal 97-111 [facility] Comment on above: Performed By: #### MILO Mattson CH8 #### [facility] [address] [place], [place], CO2 [Moles/Vol] 30 mmol/L Normal 21-30 [facility] [facility] Comment on above: Performed By: #### MILO Mattson CH8 #### [facility] [address] [place], [place], Creatinine [Mass/Vol] 0.84 mg/dL Normal 0.50-1.10 [facility] Comment on above: Performed By: #### MILO Mattson CH8 #### [facility] [address] [place], [place], ESTIMATED GFR (CKD-EPI) 86 mL/min/1.73sqm Normal >=60 [facility] Comment on above: Result Comment: 2020 [...] Inclusion of Race in Diagnosing Kidney Disease. [place] Journal of Kidney Diseases 2021;79(2):268-88.e1. 2. N Engl J Med 2020 Vol. 385 Issue 19 Pages [phone] Performed By: #### MILO Mattson CH8 #### [facility] [address] [place], [place], Glucose [Mass/Vol] 85 mg/dL Normal 68-110 [facility] Comment on above: Performed By: #### MILO Mattson CH8 #### [facility] [address] [place], [place], Potassium [Moles/Vol] 3.7 mmol/L Normal 3.3-5.3 [facility] Comment on above: Performed By: #### MILO Mattson CH8 #### [facility] [address] [place], [place], Sodium [Moles/Vol] 144 mmol/L Normal 135-148 [facility] Comment on above: Performed By: #### Mariam MILO Alan CH8 #### [facility] [address] [place], [place], Urea nitrogen [Mass/Vol] 10 mg/dL Normal 8-22 [facility] Comment on above: Performed By: #### Mariam MILO Alan CH8 #### [facility] [address] [place], [place], Basic metabolic 2000 panelon 07-17-2022 Anion [...] MDRD (S/P/Bld) [Vol rate/Area] 86 mL/min/{1.73_m2} - [facility] Comment on above: 2020 CKD EPI [...] Inclusion of Race in Diagnosing Kidney Disease. [place] Journal of Kidney Diseases 2022;79(2):268-88.e1. 2. N Engl J Med 1 Vol. 385 Issue 19 Pages 5998-5878 Glucose [Mass/Vol] 85 mg/dL 68 - 110 mg/dL [facility] Potassium [Moles/Vol] 3.7 mmol/L 3.3 - 5.3 mmol/L [facility] Sodium [Moles/Vol] 144 mmol/L 135 - 148 mmol/L [facility] Urea nitrogen [Mass/Vol] 10 mg/dL 8 - 22 mg/dL [facility] CBC panel Auto (Bld)on 07-17 Erythrocyte distribution width (RBC) [Ratio] 13.7 % 11.5 - 14.5 % [facility] Hematocrit (Bld) [Volume fraction] 32.8 % Low 36.0 - 46.0 % [facility] Hemoglobin (Bld) [Mass/Vol] 10.8 g/dL Low 12.0 - 15.0 g/dL [facility] Interpretation and review of laboratory results Abnormal [facility] MCH (RBC) [Entitic mass] 32.5 pg 26.0 - 34.0 pg [facility] MCHC (RBC) [Mass/Vol] 32.9 g/dL 32.0 - 35.9 g/dL [facility] MCV (RBC) [Entitic vol] 99 fL 80 - 100 fL [facility] Platelet mean volume (Bld) [Entitic vol] 8.0 fL 7.5 - 11.2 fL [facility] Platelets (Bld) [#/Vol] 214 10*3/uL 150 - 400 K/uL [facility] RBC (Bld) [#/Vol] 3.33 10*6/uL Low [facility] WBC (Bld) [#/Vol] 8.7 10*3/uL 4.5 - 11.5 K/uL [facility] COMPLETE BLOOD COUNTon 07-17 Erythrocyte distribution width (RBC) [Ratio] 13.7 % Normal 11.5-14.5 The [facility] Comment on above: Performed By: #### MILO Mattson CH8 #### [facility] [address] [place] [address], Hematocrit (Bld) [Volume fraction] 32.8 % Low 36.0-46.0 The [facility] Comment on above: Performed By: #### MILO Mattson CH8 #### [facility] [address] [place], [place], Hemoglobin (Bld) [Mass/Vol] 10.8 g/dL Low 12.0-15.0 The [facility] Comment on above: Performed By: #### MILO Mattson CH8 #### [facility] [address] [place] [address], MCH (RBC) [Entitic mass] 32.5 pg Normal 26.0-34.0 [facility] Comment on above: Performed By: #### MILO Mattson CH8 #### [facility] [address] [place] [address], MCHC (RBC) [Mass/Vol] 32.9 g/dL Normal 32.0-35.9 [facility] Comment on above: Performed By: #### MILO Mattson CH8 #### [facility] [address] [place] [address], MCV (RBC) [Entitic vol] 99 fL Normal 80-100 T he [facility] Comment on above: Performed By: #### MILO Mattson CH8 #### [facility] [address] [place] [address], Platelet mean volume (Bld) [Entitic vol] 8.0 fL Normal 7.5-11.2 [facility] Comment on above: Performed By: ###MILO Sierra CH8 #### S [facility] LABORATORY [address] [place] [address], Platelets (Bld) [#/Vol] 214 10*3/uL Normal 150-400 [facility] Comment on above: Performed By: #### MILO Mattson CH8 #### S [facility] [address] [place] [address], RBC (Bld) [#/Vol] 3.33 10*6/uL Low 4.00-5.20 The [facility] Comment on above: Performed By: #### MILO Mattson CH8 #### S [facility] [address] [place], [place], WBC (Bld) [#/Vol] 8.7 10*3/uL Normal 4.5-11.5 [facility] Comment on above: Performed By: #### MILO Mattson CH8 #### [facility] [address] [place] [address], Care Plan Noteon 07-17-2022 [employer] Machine Authentication Interface Message Text Problem: Discharge Planning: Goal: Discharge needs of the adult patient will be met 07/17/2022 1233 by Pneny Brown RN Outcome: Completed 07/17/2022 0743 by Penny Brown RN Outcome: Progressing Discharge instructions provided to patient with paper scripts and tylenol MEDS to beds. No questions about instructions or medications at this time. IV removed and intact upon removal. Additional home care supplies provided. Patient discharged home with family member. Normal [facility] [employer] Authentication Interface Message Text Problem: Routine Care: [...] will be met Outcome: Progressing Normal [facility] GLUCOSE, FINGERSTICK-IN OFFI CEon 07-17-2022 Glucose [Mass/Vol] 81 mg/dL Normal 68-110 [facility] Comment on above: Performed By: #### 8 [id number] ####NURSING GLUCOSE [id number] [place], [address] Glucose [Mass/Vol] 81 mg/dL 68 - 110 mg/dL [facility] Interpretation and review of laboratory results Normal [facility] Glucose [Mass/Vol] 93 mg/dL Normal 68-110 [facility] Comment on above: Performed By: #### M MILO Alan 8 #### [facility] [address] [place], [address] Glucose [Mass/Vol] 93 mg/dL 68 - 110 mg/dL [facility] Interpretation and review of laboratory results Normal [facility] MAGNESIUMon 07-17-2022 Magnesium [Mass/Vol] 1.8 mg/dL Normal 1.6-2.8 [facility] Comment on above: Performed By: #### MILO Mattson CH8 #### [facility] [address] [place], [place], Interpretation and review of laboratory results Normal [facility] Magnesium [Mass/Vol] 1.8 mg/dL 1.6 - 2 .8 mg/dL [facility] No Panel Informationon 07-17 Interpretation and review of laboratory results Abnormal [facility] PHOSPHORUSon 07-17-2022 Phosphate [Mass/Vol] 2.4 mg/dL Low 2.5-4.8 [facility] Comment on above: Performed By: #### MILO Mattson CH8 #### [facility] [address] [place] [address], Phosphate [Mass/Vol] 2.4 mg/dL Low 2.5 - 4 .8 mg/dL [facility] Progress Noteson 07-17-2022 Colorer Machine Authentication Interface Message Text Patient refused: Ditropan, and Hs Fingerstick. Normal [facility] BASIC METABOLIC PANELon 06-23 Anion gap [Moles/Vol] 14 mmol/L Normal 10-20 [facility] Comment on above: Performed By: #### MILO Mattson CH8 #### [facility] [address] [place], [place], Calcium [Mass/Vol] 8.0 mg/dL Low 8.4-10.4 [facility] Comment on above: Performed By: #### MILO Mattson CH8 #### [facility] [address] [place], [place], Chloride [Moles/Vol] 103 mmol/L Normal 97-111 [facility] Comment on above: Performed By: #### MILO Mattson CH8 #### [facility] [address] [place], [place], CO2 [Moles/Vol] 31 mmol/L High 21-30 [facility] Comment on above: Performed By: #### MILO Mattson CH8 #### [facility] [address] [place], [place], Creatinine [Mass/Vol] 0.79 mg/dL Normal 0.50-1.10 [facility] Comment on above: Performed By: #### MILO Mattson CH8 #### [facility] [address] [place], ESTIMATED GFR (CKD-EPI) 93 mL/min/1.73sqm Normal >=60 [facility] Comment on above: Result Comment: 2020 [...] Inclusion of Race in Diagnosing Kidney Disease. [place] Journal of Kidney Diseases 2021;79(2):268-88.e1. 2. N Engl J Med 2020 Vol. 385 Issue 19 Pages 7763-5381 Performed By: #### MILO Mattson CH8 #### [facility] [address] [place], [place], Glucose [Mass/Vol] 96 mg/dL Normal 68-110 [facility] Comment on above: Performed By: #### MILO Mattson CH8 #### [facility] [address] [place], [place], Potassium [Moles/Vol] 4.0 mmol/L Normal 3.3-5.3 [facility] Comment on above: Performed By: #### MILO Mattson CH8 #### [facility] [address] [place], Sodium [Moles/Vol] 144 mmol/L Normal 135-148 [facility] Comment on above: Performed By: #### MILO Mattson CH8 #### [facility] [address] [place], [place], Urea nitrogen [Mass/Vol] 16 mg/dL Normal 8-22 The [facility] Comment on above: Performed By: #### M MILO Alan CH8 #### [facility] [address] [place], [address] Basic metabolic 2000 panelon 07-16-2022 Anion gap [...] (S/P/Bld) [Vol rate/Area] 93 mL/min/{1.73_m2} - [facility] Comment on above: 2020 CKD EPI [...] Inclusion of Race in Diagnosing Kidney Disease. [place] Journal of Kidney Diseases 202;79(2):268-88.e1. 2. N Engl J Med 2020 Vol. 385 Issue 19 Pages 3794-1432 Glucose [Mass/Vol] 96 mg/dL 68 - 110 [...] 32.8 % Low 36.0 - 46.0 % [facility] Hemoglobin (Bld) [Mass/Vol] 10.9 g/dL Low 12.0 - 15.0 g/dL [facility] Interpretation and review of laboratory results [facility]normal [facility] MCH (RBC) [Entitic mass] 32.7 pg 26.0 - 34.0 pg [facility] MCHC (RBC) [Mass/Vol] 33.2 g/dL 32.0 - 35.9 g/dL [facility] MCV (RBC) [Entitic vol] 98 fL 80 - 100 fL [facility] Platelet mean volume (Bld) [Entitic vol] 9.0 fL 7.5 - 11.2 fL [facility] Platelets (Bld) [#/Vol] 217 10*3/uL 150 - 400 K/uL [facility] RBC (Bld) [#/Vol] 3.33 10*6/uL Low [facility] WBC (Bld) [#/Vol] 16.3 10*3/uL High 4.5 - 11.5 K/uL [facility] COMPLETE BLOOD COUNTon 07-16 Erythrocyte distribution width (RBC) [Ratio] 13.5 % Normal 11.5-14.5 The [facility] Comment on above: Performed By: #### C BC ####S PATHOLOGY [id number] [place], [place], Hematocrit (Bld) [Volume fraction] 32.8 % Low 36.0-46.0 The [facility] Comment on above: Performed By: #### C BC ####S PATHOLOGY [id number] [place], Hemoglobin (Bld) [Mass/Vol] 10.9 g/dL Low 12.0-15.0 The [facility] Comment on above: Performed By: #### C BC ####S PATHOLOGY [id number] [place], [place], MCH (RBC) [Entitic mass] 32.7 pg Normal 26.0-34.0 The [facility] Comment on above: Performed By: #### C BC ####S PATHOLOGY [id number] [place], MCHC (RBC) [Mass/Vol] 33.2 g/dL Normal 32.0-35.9 [facility] Comment on above: Performed By: #### C BC ####S PATHOLOGY [id number] [place], MCV (RBC) [Entitic vol] 98 fL Normal 80-100 T he [facility] Comment on above: Performed By: #### C BC ####S PATHOLOGY [id number] [place], Platelet mean volume (Bld) [Entitic vol] 9.0 fL Normal 7.5-11.2 The [facility] Comment on above: Performed By: #### C BC ####[facility] PATHOLOGY [id number] [place], [place], Platelets (Bld) [#/Vol] 217 10*3/uL Normal 150-400 The [facility] Comment on above: Performed By: #### C BC ####[facility] PATHOLOGY [id number] [place], [place], RBC (Bld) [#/Vol] 3.33 10*6/uL Low 4.00-5.20 The [facility] Comment on above: Performed By: #### C BC ####[facility] PATHOLOGY [id number] [place], [place], WBC (Bld) [#/Vol] 16.3 10*3/uL High 4.5-11.5 The [facility] Comment on above: Performed By: #### C BC ####[facility] PATHOLOGY [id number] [place], [place], GLUCOSE, FINGERSTICK-IN OFFI CEon 07-16-2022 Glucose [Mass/Vol] 89 mg/dL Normal 68-110 The [facility] Comment on above: Performed By: #### MILO Mattson CH8 #### S PATH[facility]Y LABORATORY [address] [place] [address], Glucose [Mass/Vol] 89 mg/dL 68 - 110 mg/dL [facility] Interpretation and review of laboratory results Normal [facility] Glucose [Mass/Vol] 160 mg/dL High 68-110 The [facility] Comment on above: Result Comment: Ricky lund RN, APN, MD Performed By: #### MILO Mattson CH8 #### [facility] [address] [place] [address], Glucose [Mass/Vol] 160 mg/dL High 68 - 110 mg/dL [facility] Comment on above: Notified JUDSON MORSE MD Interpretation and review of laboratory results Abnormal [facility] Glucose [Mass/Vol] 136 mg/dL High 68-110 The [facility] Comment on above: Result Comment: Ricky lund RN, APN, MD Performed By: #### MILO Mattson CH8 #### [facility] [address] [place], [place], Glucose [Mass/Vol] 136 mg/dL High 68 - 110 mg/dL [facility] Comment on above: Notified JUDSON MORSE MD Interpretation and review of laboratory results Abnormal [facility] MAGNESIUMon 07-16-2022 Magnesium [Mass/Vol] 2.0 mg/dL Normal 1.6-2.8 The [facility] Comment on above: Performed By: #### MILO Mattson CH8 #### [facility] [address] [place], Interpretation and review of laboratory results Normal [facility] Magnesium [Mass/Vol] 2.0 mg/dL 1.6 - 2 .8 mg/dL [facility] No Panel Informationon 07-16 Interpretation and review of laboratory results Abnormal [facility] PHOSPHORUSon 07-16-2022 Phosphate [Mass/Vol] 2.1 mg/dL Low 2.5-4.8 The [facility] Comment on above: Performed By: #### MILO Mattson CH8 #### [facility] [address] [place], Phosphate [Mass/Vol] 2.1 mg/dL Low 2.5 - 4 .8 mg/dL [facility] Progress Noteson 07-16-2022 Colorer Machine Authentication Interface Message Text -------- GENERAL INFORMATION [...] (KlonoPIN) tablet, 1 mg, Oral, Q12H PRN, Sue, Oliver, DMD levothyroxine (SYNTHROID) tablet, 50 mcg, Oral, [...] oxymetazoline (AFRIN) 0.05 % nasal solution, 2 [place], Nasal, Q4H PRN, Oliver Rogers DMD sodium chloride (OCEAN) 0.65 % nasal spray, 1 [place], Nasal, Q1H PRN, Oliver Rogers DMD naloxone [...] 2. (more content not included)... Normal [facility] [employer] Machine Authentication Interface Message Text Attestation signed by [...] MD SURGERY DAILY PROGRESS NOTE Isabelle Hewitt [phone] Isabelle Hewitt is a 47yo F with [...] bisacodyl 10 mg Daily PRN oxymetazoline 2 [place] Q4H PRN sodium chloride 1 [place] Q1H PRN naloxone 0.4 mg PRN IV [...] hydration. Pt okay to be transferred to [facility]. Neuro: - Acetaminophen 650 mg Q4H scheduled - Ibuprofen 600 mg Q6H PRN mild pain - Oxycodone 5/10 mg Q4H PRN moderate/severe pain OMFS: - Peridex mouth rinses BID Cardiac: - Lipitor 20 mg daily Resp: - O2 as needed to maintain sats >92% - Humidified face tent - [place] nasal spray Q1H PRN - Afrin nasal [...] daily Dispo: - Okay to transfer to [facility] Oliver Rogers, CHAU metal alloy scientist, PGY-1 Team Pager: [phone] Normal [facility] BASIC METABOLIC PANELon 11- Anion gap [Moles/Vol] 15 mmol/L Normal 10-20 [facility] Comment on above: Performed By: #### MILO Mattson CH8 #### [facility] [address] [place] [address], Calcium [Mass/Vol] 8.0 mg/dL Low 8.4-10.4 [facility] Comment on above: Performed By: ###MILO Sierra CH8 #### [facility] [address] [place] [address], Chloride [Moles/Vol] 102 mmol/L Normal 97-111 [facility] Comment on above: Performed By: ###MILO Sierra CH8 #### [facility] [address] [place] [address], CO2 [Moles/Vol] 28 mmol/L Normal 21-30 [facility] Comment on above: Performed By: ###MILO Sierra CH8 #### [facility] [address] [place] [address], Creatinine [Mass/Vol] 0.91 mg/dL Normal 0.50-1.10 [facility] Comment on above: Performed By: #### MILO Mattson CH8 #### [facility] [address] [place] [address], ESTIMATED GFR (CKD-EPI) 78 mL/min/1.73sqm Normal >=60 [facility] Comment on above: Result Comment: 2020 [...] Inclusion of Race in Diagnosing Kidney Disease. [place] Journal of Kidney Diseases 202;79(2):268-88.e1. 2. N Engl J Med 1 Vol. 385 Issue 19 Pages 4272-1860 Performed By: #### MILO Mattson CH8 #### [facility] [address] [place] [address], Glucose [Mass/Vol] 147 mg/dL High 68-110 [facility] Comment on above: Performed By: #### MILO Mattson CH8 #### [facility] [address] [place] [address], Potassium [Moles/Vol] 4.3 mmol/L Normal 3.3-5.3 [facility] Comment on above: Performed By: #### MILO Mattson CH8 #### [facility] [address] [place] [address], Sodium [Moles/Vol] 141 mmol/L Normal 135-148 [facility] Comment on above: Performed By: #### MILO Mattson CH8 #### [facility] [address] [place] [address], Urea nitrogen [Mass/Vol] 16 mg/dL Normal 8-22 [facility] Comment on above: Performed By: #### MILO Mattson CH8 #### [facility] [address] [place] [address], Basic metabolic 2000 panelon 07-15-2022 Anion gap [...] (S/P/Bld) [Vol rate/Area] 78 mL/min/{1.73_m2} - [facility] Comment on above: [...] Inclusion of Race in Diagnosing Kidney Disease. [place] Journal of Kidney Diseases 202;79(2):268-88.e1. 2. N Engl J Med 2020 Vol. 385 Issue 19 Pages 3060-0601 Glucose [Mass/Vol] 147 mg/dL High 68 - [...] [Mass/Vol] 33.4 g/dL 32.0 - 35.9 g/dL [facility] MCV (RBC) [Entitic vol] 97 fL 80 - 100 fL [facility] Platelet mean volume (Bld) [Entitic vol] 8.6 fL 7.5 - 11.2 fL [facility] Platelets (Bld) [#/Vol] 267 10*3/uL 150 - 400 K/uL [facility] RBC (Bld) [#/Vol] 3.55 10*6/uL Low [facility] WBC (Bld) [#/Vol] 18.2 10*3/uL High 4.5 - 11.5 K/uL [facility] COMPLETE BLOOD COUNTon 07-15 Erythrocyte distribution width (RBC) [Ratio] 13.6 % Normal 11.5-14.5 [facility] Comment on above: Performed By: #### MILO Mattson CH8 #### [facility] [address] [place] [address], Hematocrit (Bld) [Volume fraction] 34.4 % Low 36.0-46.0 [facility] Comment on above: Performed By: #### MILO Mattson CH8 #### [facility] PATHOLOGY LABORATORY [address] [place] [address], Hemoglobin (Bld) [Mass/Vol] 11.5 g/dL Low 12.0-15.0 [facility] Comment on above: Performed By: #### MILO Mattson CH8 #### [facility] PATHOLOGY LABORATORY [address] [place] [address], MCH (RBC) [Entitic mass] 32.3 pg Normal 26.0-34.0 [facility] Comment on above: Performed By: #### MILO Mattson CH8 #### [facility] [address] [place] [address], MCHC (RBC) [Mass/Vol] 33.4 g/dL Normal 32.0-35.9 [facility] Comment on above: Performed By: #### MILO Mattson CH8 #### [facility] PATH[facility]Y LABORATORY [address] [place] [address], MCV (RBC) [Entitic vol] 97 fL Normal 80-100 T he [facility] Comment on above: Performed By: #### MILO Mattson CH8 #### S PATHOLOGY LABORATORY [address] [place] [address], Platelet mean volume (Bld) [Entitic vol] 8.6 fL Normal 7.5-11.2 [facility] Comment on above: Performed By: #### MILO Mattson CH8 #### [facility]Y LABORATORY [address] [place], [place], Platelets (Bld) [#/Vol] 267 10*3/uL Normal 150-400 The [facility] Comment on above: Performed By: #### MILO Mattson CH8 #### S PATHOLOGY LABORATORY [address] [place], [place], RBC (Bld) [#/Vol] 3.55 10*6/uL Low 4.00-5.20 [facility] Comment on above: Performed By: #### MILO Mattson CH8 #### S PATHOLOGY LABORATORY [address] [place], WBC (Bld) [#/Vol] 18.2 10*3/uL High 4.5-11.5 [facility] Comment on above: Performed By: ###MILO Sierra CH8 #### [facility] PATHOLOGY LABORATORY [address] [place] [address], Care Plan Noteon 07-15-2022 Colorer Machine Authentication Interface Message Text Problem: Routine Care: [...] will be met Outcome: Progressing Normal [facility] [employer] Machine Authentication Interface Message Text Problem: Discharge Planning: [...] free of falls/injuries during shift. Normal [facility] GLUCOSE, FINGERSTICK-IN OFFI CEon 07-15-2022 Glucose [Mass/Vol] 155 mg/dL High 68-110 [facility] Comment on above: Result Comment: Ricky lund RN, APN, MD Performed By: #### MILO Mattson, 8 #### [facility] [address] [place] [address], [id number] Glucose [Mass/Vol] 155 mg/dL High 68 - 110 mg/dL [facility] Comment on above: Notified JUDSON MORSE MD Interpretation and review of laboratory results [facility] Glucose [Mass/Vol] 137 mg/dL High 68-110 [facility] Comment on above: Performed By: #### 8 2948 ####[facility] GLUCOSE [id number] [place] [address], [id number] Glucose [Mass/Vol] 137 mg/dL High 68 - 110 mg/dL [facility] Interpretation and review of laboratory results Abnormal [facility] Progress Noteson 07-15-2022 Colorer Machine Authentication Interface Message Text Attestation signed by [...] MD SURGERY DAILY PROGRESS NOTE Isabelle Hewitt [phone] Isabelle Hewitt is a 47yo F with [...] bisacodyl 10 mg Daily PRN oxymetazoline 2 [place] Q4H PRN sodium chloride 1 [place] Q1H PRN naloxone 0.4 mg PRN IV [...] Hct MCV RDW Plt PT aPTT INR 11/24/22 0044 18.2 3.55 11.5 34.4 97 13.6 [...] daily -Lipitor 20mg daily Pulm: -Oxymetazoline 2 [place] q4h PRN -[place] 1 [place] q1h PRN -Face Tent on humidified air [...] Seferino Vaz DMD OMFS Resident Team Pager [phone] Normal [facility] [place] [facility] [employer] Machine Authentication Interface Message Text -------- GENERAL INFORMATION [...] Oliver Rogers DMD, 5 mg at 07/15/22 06 venlafaxine (EFFEXOR XR) 24 hour capsule, 75 [...] 600 mg, Oral, Q6H PRN, Oliver Rogers, CHAU oxyCODONE immediate release tablet, 5 mg, Oral, [...] oxymetazoline (AFRIN) 0.05 % nasal solution, 2 [place], Nasal, Q4H PRN, Oliver Rogers DMD sodium chloride (OCEAN) 0.65 % nasal spray, 1 [place], Nasal, Q1H PRN, Oliver Rogers DMD enoxaparin [...] pCO2 pO2 Sat Base Ex HCO3- A-a 07/14/22843 24 07/14/22 0844 7.429 37.0 118 98.8 0.5 24 - (more content not included)... Normal The [employer] Anesthesia Attestationon Colorer Machine Authentication Interface Message Text Anesthesia Attestation ATTESTATION OF INFORMED CONSENT FOR ANESTHESIA Anesthesia options were discussed with the patient and/or legal registration representative. The risks, benefits and alternatives were reviewed. Questions regarding anesthesia were answered. Patient and/or legal registration representative knows such anesthetics and procedures may be performed by Resident physicians, Certified Anesthesiologist Assistants, or Certified Nurse Anesthetists under the supervision of a physician. The patient /or the patient's legal registration representative agree with the plan for anesthesia. Normal The [employer] Anesthesia Postprocedure Lauren patel 07-14-2022 [employer] Authentication Interface Message Text Anesthesia Postoperative Assessment: [...] EVENTS: No notable events documented. Normal [facility] Anesthesia Transfer Of Rachele guy 07-14-2022 [employer] Authentication Interface Message Text Patient taken to [...] was received. Zenia Centeno, CAA Normal [facility] BLOOD GAS, ARTERIALon 2021 CR DEBORAH 0.5 mmol/L Normal -2.0-2.0 [facility] Comment on above: Performed By: #### C R LYTES, CR GLU, LACT, CR BGA, CR ICA, CR COOX #### S PATHOLOGY LABORATORY [address] [place] [address], CR PCO2 37.0 mm Hg Normal 35.0-45.0 [facility] Comment on above: Performed By: #### C R LYTES, CR GLU, LACT, CR BGA, CR ICA, CR COOX #### [facility] [address] [place] [address], CR PHA 7.429 Normal 7.35-7.45 [facility] Comment on above: Performed By: #### C R LYTES, CR GLU, LACT, CR BGA, CR ICA, CR COOX #### [facility] PATHOLOGY LABORATORY [address] [place], [place], CR PO2 118 mm Hg High 80-100 [facility] Comment on above: Performed By: #### C R LYTES, CR GLU, LACT, CR BGA, CR ICA, CR COOX #### S PATHOLOGY LABORATORY [address] [place], [place], HCO3 (Bld) [Moles/Vol] 24 mmol/L Normal 22-28 [facility] Comment on above: Performed By: #### C R LYTES, CR GLU, LACT, CR BGA, CR ICA, CR COOX #### [facility] PATHOLOGY LABORATORY [address] [place] [address], Oxygen saturation in Blood 98.8 % Normal >=95.1 [facility] Comment on above: Performed By: #### C R LYTES, CR GLU, LACT, CR BGA, CR ICA, CR COOX #### [facility] PATHOLOGY LABORATORY [address] [place], [place], BLOOD GAS, ARTERIALOrdered B y: Osmar Zamora on 07-14-2022 Base excess Calc (Bld) [Moles/Vol] 0.5 mmol/L -2.0 - 2.0 mmol/L [facility] CO2 (Bld) [Partial pressure] 37.0 mm[Hg] [facility] Oxygen (Bld) [Partial pressure] 118 mm[Hg] High [facility] pH (Bld) 7.429 [pH] 7.35 - 7.45 [facility] Blood Attestationon 07-14-20 [employer] Authentication Interface Message Text Blood Attestation ATTESTATION OF INFORMED CONSENT FOR BLOOD The transfusion of blood and/or blood components were discussed with the patient and/or legal registration representative. The risks, benefits and alternatives were reviewed. Questions regarding blood transfusions were answered. The patient /or the patient's legal registration representative agree with the plan for transfusion of blood and/or blood components. Normal [facility] Brief Operative Noteon 07-14 [employer] Authentication Interface Message Text Brief Operative Note MAIN OR 12 Isabelle Hewitt 47 year old female Surgical Contact Serial Number: [id number] Preoperative Diagnosis: DIONNE (obstructive sleep apnea) [G47.33] Postoperative Diagnosis: * DIONNE (obstructive sleep apnea) [G47.33] Procedures: Surgical CPTs Procedures RECONSTRUCTION MIDFACE, LEFORT I; 1 PIECE, W/O BONE GRAFT RECONSTRUCTION, MANDIBULAR RAMI AND /OR BODY, SAGITTAL SPLIT; W/INT RIGID FIXATION No data filed Surgeon(s): Surgeon(s): Rikki Rodrigues DMD, MD Staff: Scrub: Annelise Saeed RN; Babs Wells RN Gas Mask Assembler Nurse: Stephanie Brannon RN; Babs Wells RN Meter Repairer Helper: Margot Ovalles DDS; Saleem Mi DMD Anesthesia: [...] DMD, MD 07/14/2022 12:58 PM Normal [facility] CALCIUM, IONIZEDon 2 CR ICA 1.00 mmol/L Low 1.10-1.40 [facility] Comment on above: Performed By: #### C R LYTES, CR GLU, LACT, CR BGA, CR ICA, CR COOX #### [facility] [address] [place], [place], Calcium.ionized (Bld) [Moles/Vol] 1.00 mmol/L Low 1.10 - 1.40 mmol/L [facility] CO-OXIMETERon 07-14-2022 CARBOXYHEMOGLOBIN 1.5 % Normal <3.0 The [facility] Comment on above: Performed By: #### C R LYTES, CR GLU, LACT, CR BGA, CR ICA, CR COOX #### [facility] PATHOLOGY LABORATORY [address] [place] [address], CR HBMET 0.8 % Normal <3.0 The [facility] Comment on above: Performed By: #### C R LYTES, CR GLU, LACT, CR BGA, CR ICA, CR COOX #### [facility] PATHOLOGY LABORATORY [address] [place] [address], Hematocrit (Bld) [Volume fraction] 37.6 % Normal 36.0-46.0 The [facility] Comment on above: Performed By: #### C R LYTES, CR GLU, LACT, CR BGA, CR ICA, CR COOX #### [facility] PATHOLOGY LABORATORY [address] [place] [address], Hemoglobin (Bld) [Mass/Vol] 12.2 g/dL Normal 12.0-16.0 The [facility] Comment on above: Performed By: #### C R LYTES, CR GLU, LACT, CR BGA, CR ICA, CR COOX #### [facility] PATHOLOGY [facility]ATORY [address] [place] [address], OXYHEMOGLOBIN 96.5 % Normal 95.0-100.0 The [facility] Comment on above: Performed By: #### C R LYTES, CR GLU, LACT, CR BGA, CR ICA, CR COOX #### [facility] PATHOLOGY LABORATORY [address] [place] [address], Carboxyhemoglobin (BldA) [Mass fraction] 1.5 % NINF - 3.0 % [facility] Hematocrit (BldA) [Volume fraction] 37.6 % 36.0 - 46.0 % [facility] Hemoglobin (Bld) [Mass/Vol] 12.2 g/dL 12.0 - 16.0 g/dL [facility] Methemoglobin (BldA) [Mass fraction] 0.8 % NINF - 3.0 % [facility] Oxyhemoglobin (BldA) [Mass fraction] 96.5 % 95.0 - 100.0 % [facility] 07-14-2022 [employer] Authentication Interface Message Text Surgical ICU H AND P Isabelle Hewitt [id number] HPI: Ms Hewitt is a 47 year [...] floor (more content not included)... Normal [facility] ELECTROLYTESon 07-14-2022 Chloride [Moles/Vol] 107 mmol/L Normal 97-111 [facility] Comment on above: Performed By: #### C R LYTES, CR GLU, LACT, CR BGA, CR ICA, CR COOX #### [facility] [address] [place], [place], Potassium [Moles/Vol] 3.7 mmol/L Normal 3.3-5.3 [facility] Comment on above: Performed By: #### C R LYTES, CR GLU, LACT, CR BGA, CR ICA, CR COOX #### [facility] PATHOLOGY LABORATORY [address] [place], [place], Sodium [Moles/Vol] 142 mmol/L Normal 135-148 [facility] Comment on above: Performed By: #### C R LYTES, CR GLU, LACT, CR BGA, CR ICA, CR COOX #### [facility] PATHOLOGY LABORATORY [address] [place], [place], Chloride [Moles/Vol] 107 mmol/L 97 - 11 1 mmol/L [facility] Potassium [Moles/Vol] 3.7 mmol/L 3.3 - 5.3 mmol/L [facility] Sodium [Moles/Vol] 142 mmol/L 135 - 148 mmol/L [facility] GLUCOSE, FINGERSTICK-IN OFFI CEon 07-14-2022 Glucose [Mass/Vol] 156 mg/dL High 68-110 [facility] Comment on above: Performed By: #### [id number] ####NURSING GLUCOSE [id number] [place], [address] Glucose [Mass/Vol] 156 mg/dL High 68 - 110 mg/dL [facility] Interpretation and review of laboratory results Abnormal [facility] Glucose [Mass/Vol] 110 mg/dL Normal 68-110 The [facility] Comment on above: Performed By: #### 8 [id number] ####NURSING GLUCOSE [id number] [place], [address] Glucose [Mass/Vol] 110 mg/dL 68 - 110 mg/dL [facility] Interpretation and review of laboratory results Normal [facility] GLUCOSE, WHOLE BLOODon 07-14 CR GLU 93 mg/dL Normal 68-98 The [facility] Comment on above: Performed By: #### C R LYTES, CR GLU, LACT, CR BGA, CR ICA, CR COOX ####[facility] PATHOLOGY [id number] [place], [place], Glucose [Mass/Vol] 93 mg/dL 68 - 98 mg/dL [facility] LACTIC ACIDon 07-14-2022 CR LACT 2.0 mmol/L Normal 0.5-2.0 The [facility] Comment on above: Performed By: #### C R LYTES, CR GLU, LACT, CR BGA, CR ICA, CR COOX #### [facility] [address] [facility] [address] [place], [place], Lactate [Moles/Vol] 2.0 mmol/L 0.5 - 2. 0 mmol/L [facility] Laboratory - Chemistry and C hemistry - challengeOrdered By: Osmar Zamora on 07-14-2022 HCO3 (Bld) [Moles/Vol] 24 mmol/L 22 - 28 mmol/L [facility] No Panel Informationon 07-14 Interpretation and review of laboratory results Normal [facility] No Panel InformationOrdered By: Osmar Zamora on 07-14-2022 Interpretation and review of laboratory results Abnormal [facility] OP Noteon 07-14-2022 [employer] Authentication Interface Message Text Name: ISABELLE HEWITT MR#: [id number] ENC#: [id number] Date of Procedure: 07/14/2022 ATTENDING SURGEON: Rikki [...] was placed deep in the oropharynx. 4 [place] MMF screws were placed, 2 in the [...] a combination of osteotomes and a [employer] outside contractor sales. On both sides, the inferior alveolar nerve [...] anticipated 3 mm of anterior impaction accomplished. [place] prebent orthognathic plates were used at the [...] FINDINGS: IMPRESSION: Single view of the filter [place] with linear radiopaque foreign body compatible with [...] FINDINGS: IMPRESSION: Single view of the filter [place] with linear radiopaque foreign body compatible with retained needle. MACRO: None RADIOLOGY Jerel Guzman MD - 07/14/2022 EXAMINATION: XR SKULL PA+LATERAL 07/14/2022 10:15 AM CLINICAL HISTORY: Reason for Exam: retained object. ASSOCIATED DIAGNOSIS: ORDERING PROVIDER: CORRINE RODRIGUES TECHNOLOGISTS NOTE: Image of filter for retained surgical needle per Dr. Rodrigues. COMPARISON: None FINDINGS: IMPRESSION: Single view of the filter [place] with linear radiopaque foreign body compatible with retained needle. 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 June 2021 Neuro/Psych - negative ROS Cardiovascular [...] the history and physical examination. Normal [facility] [employer] Telephone Encounteron 2021 [employer]orer [employer] Authentication Interface Message Text Patient states she is faxing over paperwork for her time off of work d/t surgery tomorrow, 07/14. Patient would like a call when this is received if possible. Please call [phone]. Patient informed it might not be possible, just in case. Thank you! Normal [facility] Telephone Encounteron 2021 [employer] Authentication Interface Message Text [id number]: Contacted pt and informed her to call the ENT office to schedule appt with Dr Moreno s/p jaw surgery in about 3 months due to healing time. Pt verbalized understanding. Latoya Manzo RN Normal [facility] [employer]orer Machine Authentication Interface Message Text Dr. Joel, Patient calling stating that she is going forward with the jaw surgery that you recommended next 07/14/22. Patient would like to know what the next step is for after the surgery. PT: [phone] Thanks, D Normal [facility] ABO RH TYPEon 07-08-2022 ABO and Rh group Nom (Bld) Blood group B Rh(D) positive Normal [facility] [employer] Comment on above: Performed By: #### MILO Mattson, CH8 #### [facility] [address] [place] [address], CBC panel Auto (Bld)on 07-08 Erythrocyte distribution width (RBC) [Ratio] 13.4 % 11.5 - 14.5 % [facility] Hematocrit (Bld) [Volume fraction] 42.2 % 36.0 - 46.0 % [facility] Hemoglobin (Bld) [Mass/Vol] 14.3 g/dL 12.0 - 15.0 g/dL [facility] Interpretation and review of laboratory results Normal [facility] MCH (RBC) [Entitic mass] 33.1 pg 26.0 - 34.0 pg [facility] MCHC (RBC) [Mass/Vol] 33.9 g/dL 32.0 - 35.9 g/dL [facility] MCV (RBC) [Entitic vol] 98 fL 80 - 100 fL [facility] Platelet mean volume (Bld) [Entitic vol] 8.8 fL 7.5 - 11.2 fL [facility] Platelets (Bld) [#/Vol] 274 10*3/uL 150 - 400 K/uL [facility] RBC (Bld) [#/Vol] 4.32 10*6/uL [facility] WBC (Bld) [#/Vol] 7.2 10*3/uL 4.5 - 11.5 K/uL [facility] COMPLETE BLOOD COUNTon 07-08 Erythrocyte distribution width (RBC) [Ratio] 13.4 % Normal 11.5-14.5 [facility] Comment on above: Performed By: #### C BC ####[facility] [id number] [place], [place], Hematocrit (Bld) [Volume fraction] 42.2 % Normal 36.0-46.0 [facility] Comment on above: Performed By: #### C BC ####[facility] [id number] [place], [place], Hemoglobin (Bld) [Mass/Vol] 14.3 g/dL Normal 12.0-15.0 [facility] Comment on above: Performed By: #### C BC ####[facility] [id number] [place], [place], MCH (RBC) [Entitic mass] 33.1 pg Normal 26.0-34.0 [facility] Comment on above: Performed By: #### C BC ####[facility] PATHOLOGY [id number] [place], [place], MCHC (RBC) [Mass/Vol] 33.9 g/dL Normal 32.0-35.9 [facility] Comment on above: Performed By: #### C BC ####[facility] PATHOLOGY [id number] [place], [place], MCV (RBC) [Entitic vol] 98 fL Normal 80-100 T he [facility] Comment on above: Performed By: #### C BC ####[facility] PATHOLOGY [id number] [place], [place], Platelet mean volume (Bld) [Entitic vol] 8.8 fL Normal 7.5-11.2 [facility] Comment on above: Performed By: #### C BC ####[facility] PATHOLOGY [id number] [place], Platelets (Bld) [#/Vol] 274 10*3/uL Normal 150-400 [facility] Comment on above: Performed By: #### C BC ####[facility] PATHOLOGY [id number] [place], [place], RBC (Bld) [#/Vol] 4.32 10*6/uL Normal 4.00-5.20 [facility] Comment on above: Performed By: #### C BC ####[facility] PATHOLOGY [id number] [place], [place], WBC (Bld) [#/Vol] 7.2 10*3/uL Normal 4.5-11.5 [facility] Comment on above: Performed By: #### C BC ####[facility] PATHOLOGY [id number] [place], [place], Laboratory - Blood bankon ABO and Rh group Nom (Bld) Blood group B Rh(D) positive [facility] No Panel Informationon 07-08 [facility] PSE Appt H AND Neftali 2 [employer] Machine Authentication Interface Message Text Patient was identified by name and date of . [place] Bill of rights provided to patient Normal [facility] Patient Instructionson 07-08 [employer] Authentication Interface Message Text On the morning [...] pain Please hold all Vitamin E, [place] 3, fish oil and herbal supplements for 1 week prior to surgery Normal [facility] TYPE AND SCREENon 07-08-2022 ABO and Rh group Nom (Bld) No Previous Results [facility] Comment on above: Patient does not req uire a 2nd sample drawn prior to surgery date of 07/14/2022___. Specimen meets Blood Bank's Pre-Surgical Protocol and is valid within 14 days from date of collection but will at midnight on the day of approved Surgery. Corrected Result : 07/08/2022 17:16:22 : By Transfusion Medicine Blood group antibody screen Ql Negative [facility] ABO and Rh group Nom (Bld) Blood group B Rh(D) positive Normal [facility] Comment on above: Performed By: #### M MILO Alan, RAQUEL8 #### [facility] [address] [place] [address], [id number] ABO and Rh group Nom (Bld) No Previous Results Normal [facility] Comment on above: Result Comment: Deepa ent does not require a 2nd sample drawn prior to surgery date of 07/14/2022___. Specimen meets Blood Bank's Pre-Surgical Protocol and is valid within 14 days from date of collection but will at midnight on the day of approved Surgery. Corrected Result : 07/08/2022 17:16:22 : By Transfusion Medicine Performed By: #### M MILO Alan, RAQUEL8 #### [facility] [address] [place], [place], ABSC INT Negative Normal The [facility] Comment on above: Performed By: #### M MILO Alan, CH8 #### [facility] [address] [place], [place], FREE T4on 07-07-2022 Free T4 [Mass/Vol] 0.83 ng/dL Normal 0.76-1.46 [facility] Comment on above: Performed By: #### F T4 #### [facility] [address] [place], [place] [address] Dr. Stephanie Gibbs TSHon 07-07-2022 TSH 3.715 uIU/mL Normal 0.358-3.740 [facility] Comment on above: Performed By: #### C BC #### [facility] [address] [address] [address] Stephanie Gibbs PSE Appt H AND Neftali [employer] Authentication Interface Message Text Error Normal [facility] Progress Noteson 07-02-2022 [employer] Authentication Interface Message Text Patient was seen in the OM clinic for alginate impressions of the edentulous maxilla and CBCT with denture in place. Seferino Vaz DMD [facility] Resident Normal [facility] [employer] Authentication Interface Message Text ORAL SURGERY CLINIC FOLLOW UP VISIT Patient was seen in the [facility] clinic for alginate impressions of the edentulous maxilla and CBCT with denture in place. Seferino Vaz DMD [facility] Resident ms. Normal [facility] Patient Instructionson 06-18 [employer] Authentication Interface Message Text Maxillomandibular advancement surgery, [...] daytime fatigue and inconsistent sleep. Normal [facility] Progress Noteson 06-18-2022 [employer] Authentication Interface Message Text [facility] PATIENT VISIT CHIEF COMPLAINT: sleep apnea HISTORY OF PRESENT ILLNESS: Patient presents for evaluation for surgical treatment of DIONNE. She is extremely symptomatic from her DIONNE, and suffers from CPAP intolerance. [place] sleepiness scale is 18. Patient is starting [...] the #12 area. Tonsils are surgically absent. ASRAH is 40mm, no TMJ abnormality noted on exam. RADIOGRAPHIC INTERPRETATION: CBCT Film taken on 06/18/2022, and Digital version in Dentistry [employer] system. Airway measurements are very small compared to norms. Retrognathic mandible. DIAGNOSIS: Obstructive sleep apnea [703801] TREATMENT: Exam, [employer] evaluated, and pictures/models taken [...] for (more content not included)... Normal [facility] Progress Noteson 06-15-2022 [employer] Authentication Interface Message Text CC: sleep disordered [...] nerve stimulator implanted following MMA Normal [facility] Anesthesia Attestationon [employer] Authentication Interface Message Text Anesthesia Attestation ATTESTATION OF INFORMED CONSENT FOR ANESTHESIA Anesthesia options were discussed with the patient and/or legal registration representative. The risks, benefits and alternatives were reviewed. Questions regarding anesthesia were answered. Patient and/or legal registration representative knows such anesthetics and procedures may be performed by Resident physicians, Certified Anesthesiologist Assistants, or Certified Nurse Anesthetists under the supervision of a physician. The patient /or the patient's legal registration representative agree with the plan for anesthesia. Normal [facility] Anesthesia Postprocedure Lauren luationon 06-03-2022 [employer] Authentication Interface Message Text Anesthesia Postoperative Assessment: [...] EVENTS: No notable events documented. Normal [facility] Anesthesia Preprocedure Eval uationon 06-03-2022 [employer] Authentication Interface Message Text ASA: 2 No [...] the history and physical examination. Normal The [facility] Anesthesia Transfer Of Rachele guy 06-03-2022 [employer] Authentication Interface Message Text Patient taken to [...] report was received. CINTIA Patel Normal [facility] Brief Operative Noteon 06-03 [employer] Authentication Interface Message Text Brief Operative Note PACU 19 Isabelle Hewitt 47 year old female Surgical Contact Serial Number: [id number] Preoperative Diagnosis: DIONNE (obstructive sleep apnea) [G47.33] [...] Brown PA-C 06/03/2022 2:48 PM Normal [facility] OP Noteon 06-03-2022 [employer] Authentication Interface Message Text Name: ISABELLE HEWITT MR#: [id number] ENC#: [id number] Date of Procedure: 06/03/2022 ATTENDING SURGEON: Yi [...] taken back to recovery. Yi Moreno MD HEBREW [employer]ANTOR/MedQ/ Dict: 06/03/2022 15:35:21 TRANS: 06/04/2022 07:02:00 JOB: [id number] DictJob#: [id number] Normal [facility] Progress Noteson 06-03-2022 [employer] Authentication Interface Message Text Discharge instructions reviewed in preop with patient. Patient verbalized understanding. No questions at this time. Normal [facility] Telephone Encounteron 2021 [employer] Authentication Interface Message Text Pre-op COVID test results received AND scanned into [employer]. Results NEGATIVE on 05/31/2022. Scheduled for DISE on 06/03/2022. Normal [facility] COVID Quick Testingon 2021 Result Negative [employer] Other PSE Call H AND Neftali [employer] Authentication Interface Message Text Telephone History Isabelle Hewitt, [id number] 05/28/2022 47 year old 190 lbs 5' [...] capsul (more content not included)... Normal [facility] Telephone Encounteron 2021 [employer] Authentication Interface Message Text Patient is scheduled for DISE on 06/03/2022. Prefers to complete pre-op COVID testing closer to home. Instructed to obtain testing 48-72 hours prior to surgery and bring copy of results on day of surgery. PSE contact information provided. Normal [facility] Addendum Noteon 05-26-2022 [employer] Authentication Interface Message Text Addended by: YI MORENO on: 05/26/2022 05:25 PM Modules accepted: Orders Normal [facility] Telephone Encounteron 2021 [employer] Authentication Interface Message Text Arrangements to be made for pre-op COVID testing per ENT request. Normal [facility] MRI PITUITARY WO W CONon MRI [...] WILEY POE Date: 2022-05-18 13:10 Normal The [facility] US PELVIS AND TRANSVAGon US PELVIS [...] MADDI WINSTON Date: 2022-05-11 16:51 Normal The [facility] ESTRADIOLon 05-08-2022 Estradiol 16.3 pg/mL Normal [facility] Comment on above: Result Comment: Adul t Female: Follicular phase 12.5 - 166.0 Ovulation phase 85.8 - 498.0 Luteal phase 43.8 - 211.0 Postmenopausal <6.0 - 54.7 1st trimester 215.0 - >4300.0 Salma ECLIA methodology Performed By: #### C BC #### [facility] [address] [place] [address] Dr. Stephanie Gibbs FSHon 05-08-2022 FSH 11.3 mIU/mL Normal [facility] Comment on above: Result Comment: Adul t Female: Follicular phase 3.5 - 12.5 Ovulation phase 4.7 - 21.5 Luteal phase 1.7 - 7.7 Postmenopausal 25.8 - 134.8 Performed By: #### C BC #### [facility] [address] [place] [address] Dr. Stephanie Gibbs LUTEINIZING HORMONE (LH)on 0 05-08-2022 LH 4.7 mIU/mL Normal [facility] Comment on above: Result Comment: Adul t Female: Follicular phase 2.4 - 12.6 Ovulation phase 14.0 - 95.6 Luteal phase 1.0 - 11.4 Postmenopausal 7.7 - 58.5 Performed By: #### L BCLH #### [facility] [address] [place] [address] Dr. Stephanie Gibbs PROGESTERONEon 05-08-2022 Progesterone 0.2 ng/mL Normal [facility] Comment on above: Result Comment: Foll icular phase 0.1 - 0.9 Luteal phase 1.8 - 23.9 Ovulation phase 0.1 - 12.0 First trimester 11.0 - 44.3 Second trimester 25.4 - 83.3 Third trimester 58.7 - 214.0 Postmenopausal 0.0 - 0.1 Performed By: #### P ROGES #### [facility] [address] [place] [address] Dr. Stephanie Gibbs PROLACTINon 05-08-2022 Prolactin 43.0 ng/mL Critically high 4.8-23.3 [facility] Comment on above: Performed By: #### F T4 #### [facility] [address] [place] [address] Dr. Stephanie Gibbs CBC AUTO DIFFon 05-07-2022 BASO # 0.1 103/ul Normal 0.0-0.1 [facility] Comment on above: Performed By: #### C BC #### [facility] [address] [place] [address] Dr. Stephanie Gibbs Basophils/100 WBC (Bld) 1.0 % Normal 0.2-2.0 [facility] Comment on above: Performed By: #### C BC #### [facility] [address] [place] [address] Dr. Stephanie Gibbs EO # 0.2 103/ul Normal 0.0-0.7 [facility] Comment on above: Performed By: #### C BC #### [facility] [address] [place] [address] Dr. Stephanie Gibbs Eosinophils/100 WBC (Bld) 2.7 % Normal 0.9-7.0 [facility] Comment on above: Performed By: #### C BC #### [facility] [address] [place] [address] Dr. Stephanie Gibbs Erythrocyte distribution width (RBC) [Ratio] 13.0 % Normal 11.0-15.0 [facility] Comment on above: Performed By: #### C BC #### [facility] [address] [place] [address] Dr. Stephanie Gibbs Hematocrit (Bld) [Volume fraction] 39.0 % Normal 36.0-48.0 [facility] Comment on above: Performed By: #### C BC #### [facility] [address] [place] [address] Dr. Stephanie Gibbs Hemoglobin (Bld) [Mass/Vol] 13.0 g/dL Normal 12.0-16.0 [facility] Comment on above: Performed By: #### C BC #### [facility] [address] [place] [address] Dr. Stephanie Gibbs IG # 0.03 10e3/ul Normal 0.00-0.03 [facility] Comment on above: Performed By: #### C BC #### [facility] [address] [place] [address] Dr. Stephanie Gibbs IG % 0.4 % Normal 0.0-0.5 [facility] Comment on above: Performed By: #### C BC #### [facility] [address] [place] [address] Dr. Stephanie Gibbs LYMPH # 2.4 103/ul Normal 1.2-3.8 [facility] Comment on above: Performed By: #### C BC #### [facility] [address] [place] [address] Dr. Stephanie Gibbs Lymphocytes/100 WBC (Bld) 33.8 % Normal 20.5-60.0 [facility] Comment on above: Performed By: #### C BC #### [facility] [address] [place] [address] Dr. Stephanie Gibbs MANUAL DIFF REQ NO Normal [facility] Comment on above: Performed By: #### C BC #### [facility] [address] [place] [address] Dr. Stephanie Gibbs MCH (RBC) [Entitic mass] 32.2 pg Normal 26.7-34.0 [facility] Comment on above: Performed By: #### C BC #### [facility] [address] [place] [address] Dr. Stephanie Gibbs MCHC (RBC) [Mass/Vol] 33.3 g/dL Normal 29.9-35.2 [facility] Comment on above: Performed By: #### C BC #### [facility] [address] [place] [address] Dr. Stephanie Gibbs MCV (RBC) [Entitic vol] 96.5 fL Normal 81.0-99.0 [facility] Comment on above: Performed By: #### C BC #### [facility] [address] [place] [address] Dr. Stephanie Gibbs MONO # 0.4 103/ul Normal 0.3-0.8 [facility] Comment on above: Performed By: #### C BC #### [facility] [address] [place] [address] Dr. Stephanie Gibbs Monocytes/100 WBC (Bld) 5.9 % Normal 1.7-12.0 [facility] Comment on above: Performed By: #### C BC #### [facility] [address] [place] [address] Dr. Stephanie Gibbs NEUT # 4.0 103/ul Normal 1.4-6.5 [facility] Comment on above: Performed By: #### C BC #### [facility] [address] [place] [address] Dr. Stephanie Gibbs Neutrophils/100 WBC (Bld) 56.2 % Normal 43.0-75.0 [facility] Comment on above: Performed By: #### C BC #### [facility] [address] [address] [address] Stephanie Gibbs Platelet mean volume (Bld) [Entitic vol] 9.8 fL Normal 9.5-13.5 [facility] Comment on above: Performed By: #### C BC #### [facility] [address] [place] [address] Dr. Stephanie Gibbs PLT 245 103/ul Normal 150-450 [facility] Comment on above: Performed By: #### C BC #### [facility] [address] [address] [address] Stephanie Gibbs RBC 4.04 106/ul Critically low 4.20-5.40 [facility] Comment on above: Performed By: #### C BC #### [facility] [address] [place] [address] Dr. Stephanie Gibbs WBC 7.2 103/ul Normal 4.0-11.0 [facility] Comment on above: Performed By: #### C BC #### [facility] [address] [place] [address] Dr. Stephanie Gibbs FREE T4on 05-07-2022 Free T4 [Mass/Vol] 0.69 ng/dL Critically low 0.76-1.46 [facility] Comment on above: Performed By: #### C BC #### [facility] [address] [place] [address] Dr. Stephanie Gibbs GLYCOHEMOGLOBIN A1Con 2021 ADA RECOMMENDATION SEE BELOW Normal [facility] Comment on above: Result Comment: ADA RECOMMENDED LIMIT 4.0 - 6.0 ADA THERAPEUTIC TARGET < 7.0 ACTION SUGGESTED > 7.0 Performed By: #### C BC #### [facility] [address] [place] [address] Dr. Stephanie Gibbs Glucose [Mass/Vol] 128 mg/dL Normal [facility] Comment on above: Performed By: #### C BC #### [facility] [address] [place] [address] Dr. Stephanie Gibbs HbA1c (Bld) [Mass fraction] 6.1 % Normal 4.5-6.2 [facility] Comment on above: Performed By: #### C BC #### [facility] [address] [address] [address] Stephanie Gibbs TSHon 05-07-2022 TSH 2.391 uIU/mL Normal 0.358-3.740 [facility] Comment on above: Performed By: #### F T4 #### [facility] [address] [address] [address] Stephanie Gibbs Progress Noteson 03-29-2022 [employer] Authentication Interface Message Text .Documentation: Mode: Telephone Patient Home Phone: Patient Patient Cell Preferred phone: [phone] Consent: I confirmed patient understanding of the [...] seen on prior sleep endoscopy Normal [facility] FREE T4on 03-09-2022 Free T4 [Mass/Vol] 1.08 ng/dL Normal 0.76-1.46 [facility] Comment on above: Performed By: #### F T4 #### [facility] [id number] Stephanie Gibbs LIPID PROFILEon 03-09-2022 CHOL-HDL RATIO NORM SEE BELOW Normal [facility] Comment on above: Result Comment: 3.3 - 4.4 LOW RISK 4.4 - 7.1 AVERAGE RISK 7.1 - 11.0 MODERATE RISK >11.0 HIGH RISK Performed By: #### F T4 #### [facility] [address] [address] [address] Stephanie Gibbs Cholesterol [Mass/Vol] 205 mg/dL Critically high <=200 [facility] Comment on above: Performed By: #### F T4 #### [facility] [address] [address] [address] Stephanie Gibbs Cholesterol in HDL [Mass/Vol] 44 mg/dL Normal 40-60 [facility] Comment on above: Performed By: #### F T4 #### [facility] [address] [address] [address] Stephanie Gibbs Cholesterol in LDL [Mass/Vol] 126.6 mg/dL Normal [facility] Comment on above: Performed By: #### F T4 #### [facility] [address] [place] [address] Dr. Stephanie Gibbs Cholesterol.total/Edu sterol in HDL [Mass ratio] 4.7 {ratio} Normal [facility] Comment on above: Performed By: #### F T4 #### [facility] [address] [address] [address] Stephanie Gibbs HDL NORMAL > or = 60 mg/dl - LO W CARDIOVASCULAR RISK <40 mg/dl - HIGH CARDIOVASCULAR RISK Normal [facility] Comment on above: Performed By: #### F T4 #### [facility] [address] [address] [address] Stephanie Gibbs LDL CALC NORMAL SEE BELOW Normal [facility] Comment on above: Result Comment: <100 mg/dl OPTIMAL 100 - 129 mg/dl NEAR OR ABOVE OPTIMAL 130 - 159 mg/dl BORDERLINE HIGH 160 - 189 mg/dl HIGH >190 mg/dl VERY HIGH Performed By: #### F T4 #### [facility] [address] [address] [address] Stephanie Gibbs Triglyceride [Mass/Vol] 172 mg/dL Critically high <=150 [facility] Comment on above: Performed By: #### F T4 #### [facility] [address] [address] [address] Stephanie Gibbs VLDL CALC 34.4 mg/dL Normal [facility] Comment on above: Performed By: #### F T4 #### [facility] [address] [place] [address] Dr. Stephanie Gibbs PROF 14(COMP METB)on 022 Albumin [Mass/Vol] 3.7 g/dL Normal 3.4-5.0 [facility] Comment on above: Performed By: #### F T4 #### [facility] [address] [place] [address] Dr. Stephanie Gibbs Albumin/Globulin [Mass ratio] 0.8 {ratio} Normal [facility] Comment on above: Performed By: #### F T4 #### [facility] [address] [place] [address] Dr. Stephanie Gibbs ALP [Catalytic activity/Vol] 121 U/L Critically high 46-116 [facility] Comment on above: Performed By: #### F T4 #### [facility] [address] [place] [address] Dr. Stephanie Gibbs ALT [Catalytic activity/Vol] 39 U/L Normal 14-59 [facility] Comment on above: Performed By: #### F T4 #### [facility] [address] [place] [address] Dr. Stephanie Gibbs Anion gap [Moles/Vol] 12.6 mmol/L Normal [facility] Comment on above: Performed By: #### F T4 #### [facility] [address] [place] [address] Dr. Stephanie Gibbs AST [Catalytic activity/Vol] 21 U/L Normal 15-37 [facility] Comment on above: Performed By: #### F T4 #### [facility] [address] [place] [address] Dr. Stephanie Gibbs Bilirubin [Mass/Vol] 0.4 mg/dL Normal 0.2-1.0 [facility] Comment on above: Performed By: #### F T4 #### [facility] [address] [place] [address] Dr. Stephanie Gibbs Calcium [Mass/Vol] 9.1 mg/dL Normal 8.5-10.1 [facility] Comment on above: Performed By: #### F T4 #### [facility] [address] [place] [address] Dr. Stephanie Gibbs Chloride [Moles/Vol] 102 mmol/L Normal 98-107 [facility] Comment on above: Performed By: #### F T4 #### [facility] [address] [place] [address] Dr. Stephanie Gibbs CO2 [Moles/Vol] 28.1 mmol/L Normal 21.0-32.0 [facility] Comment on above: Performed By: #### F T4 #### [facility] [address] [place] [address] Dr. Stephanie Gibbs Creatinine [Mass/Vol] 0.95 mg/dL Normal 0.55-1.02 [facility] Comment on above: Performed By: #### F T4 #### [facility] [address] [place] [address] Dr. Stephanie Gibbs EGFR-AF PALESTINIAN >60 Normal >=60 [facility] Comment on above: Performed By: #### F T4 #### [facility] [address] [place] [address] Dr. Stephanie Gibbs EGFR-NON AF PALESTINIAN >60 Normal >=60 [facility] Comment on above: Performed By: #### F T4 #### [facility] [address] [place] [address] Dr. Stephanie Gibbs Globulin (S) [Mass/Vol] 4.8 g/dL Normal [facility] Comment on above: Performed By: #### F T4 #### [facility] [address] [place] [address] Dr. Stephanie Gibbs Glucose [Mass/Vol] 106 mg/dL Normal 74-106 [facility] Comment on above: Performed By: #### F T4 #### [facility] [address] [place] [address] Dr. Stephanie Gibbs Potassium [Moles/Vol] 3.7 mmol/L Normal 3.5-5.1 [facility] Comment on above: Performed By: #### F T4 #### [facility] [address] [address] [address] Stephanie Gibbs Protein [Mass/Vol] 8.5 g/dL Critically high 6.4-8.2 T [facility] Comment on above: Performed By: #### F T4 #### [facility] [address] [address] [address] Stephanie Gibbs Sodium [Moles/Vol] 139 mmol/L Normal 136-145 [facility] Comment on above: Performed By: #### F T4 #### [facility] [address] [address] [address] Stephanie Gibbs Urea nitrogen [Mass/Vol] 14.0 mg/dL Normal 7.0-18.0 [facility] Comment on above: Performed By: #### F T4 #### [facility] [address] [address] [address] Stehpanie Gibbs Urea nitrogen/Creatinine [Mass ratio] 14.7 mg/mg Normal [facility] Comment on above: Performed By: #### F T4 #### [facility] [address] [address] [address] Stephanie Gibbs TSHon 03-09-2022 TSH 0.446 uIU/mL Normal 0.358-3.740 [facility] Comment on above: Performed By: #### F T4 #### [facility] [address] [address] [address] Stephanie Gibbs Telephone Encounteron 2021 [employer] Authentication Interface Message Text Patient calling in [...] to turn it in is 03/19/22. #: [phone] Normal [facility] Care Plan Noteon 02-26-2022 [employer] Authentication Interface Message Text Problem: Routine Care: [...] met Outcome: Adequate for Discharge Normal [facility] [employer] Authentication Interface Message Text Problem: Routine Care: [...] will be met Outcome: Progressing Normal [facility] Anesthesia Attestationon [employer] Authentication Interface Message Text Anesthesia Attestation ATTESTATION OF INFORMED CONSENT FOR ANESTHESIA Anesthesia options were discussed with the patient and/or legal registration representative. The risks, benefits and alternatives were reviewed. Questions regarding anesthesia were answered. Patient and/or legal registration representative knows such anesthetics and procedures may be performed by Resident physicians, Certified Anesthesiologist Assistants, or Certified Nurse Anesthetists under the supervision of a physician. The patient /or the patient's legal registration representative agree with the plan for anesthesia. Normal [facility] Anesthesia Postprocedure Lauren luationon 02-25-2022 [employer] Authentication Interface Message Text Anesthesia Postoperative Assessment: [...] ANESTHESIA COMPLICATIONS: No complications documented. 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 Normal [facility] Anesthesia Transfer Of Careo n 02-25-2022 [employer] Authentication Interface Message Text Patient taken to [...] Maite Youssef MD CAA: Mariaa Meneses CAA RESERVOIR ENGINEERING CONSULTANT: Cari Hurtado APRN-CRNA Manager [employer]olesale: Carol Barrera MD Anesthesia Student: Prema Norris [...] report was received. PADMINI Chiang Normal [facility] Blood Attestationon 02-26-20 [employer] Authentication Interface Message Text Blood Attestation ATTESTATION OF INFORMED CONSENT FOR BLOOD The transfusion of blood and/or blood components were discussed with the patient and/or legal registration representative. The risks, benefits and alternatives were reviewed. Questions regarding blood transfusions were answered. The patient /or the patient's legal registration representative agree with the plan for transfusion of blood and/or blood components. Normal [facility] Brief Operative Noteon 02-25 [employer] Authentication Interface Message Text Brief Operative Note MAIN OR 11 Isabelle Hewitt 46 year old female Surgical Contact Serial Number: [id number] Preoperative Diagnosis: DIONNE (obstructive sleep apnea) [G47.33] Postoperative Diagnosis: * DIONNE (obstructive sleep apnea) [G47.33] Procedures: Surgical CPTs Procedures * PALATOPHARYNGOPLASTY No data filed Surgeon(s): Surgeon(s): Yi Moreno MD Staff: Scrub: Wiley Álvarez Gas Mask Assembler Nurse: Mariaa Briseno; Dulce Allred; Babs Wells RN Meter Repairer Helper: Yi Piña MD; Unruly Biggs MD Anesthesia: Consult Anesthesiologist: Maite Youssef MD CAA: Mariaa Meneses CAA RESERVOIR ENGINEERING CONSULTANT: Cari Hurtado APRN-CRNA Manager Wholesale: Carol Barrera MD Anesthesia Student: Prema Norris [...] Moreno MD 02/25/2022 10:40 AM Normal [facility] Care Plan Noteon 02-25-2022 [employer] Authentication Interface Message Text Problem: Routine Care: [...] will be met Outcome: Progressing Normal [facility] OP Noteon 02-25-2022 [employer] Authentication Interface Message Text [id number] Isabelle Hewitt 1975 @[email or web address]@ @[email or web address]@ [id number] Preoperative diagnosis: 1. Obstructive sleep apnea 2. [...] to recovery in stable condition. Normal [facility] Progress Noteson 02-25-2022 [employer] Authentication Interface Message Text No excessive swallowing. [...] with no areas of redness. Normal [facility] URINE HCG-IN OFFICEon 2021 HCG ( test) Ql (U) Negative Negative [facility] Interpretation and review of laboratory results Normal [facility] Negative Internal Control Negative Negative [facility] Positive Internal Control Positive Positive [facility] Telephone Encounteron 2021 [employer] Authentication Interface Message Text PSE received pre-op COVID test results - NOT DETECTED on 02/23/2022. Document scanned into [employer]. Normal [facility] Covid-19 PCR (CVDTBH)on SARS-CoV-2 (COVID-19) RNA JOHNNIE+probe Ql (Unsp spec) Not detected Normal NOT DETECTED [facility] Comment on above: Result Comment: When [...] for this test is supported by the [place] of Health and Human Service's declaration that [...] be used). Performed By: #### C #### [facility] [address] [address] [address] Stephanie Gibbs XR ABDOMEN (KUB) (SINGLE [...] pattern, large colonic fecal Stable left nephrolithiasis DARIUS PICHARDO [employer] Phone: Radiology Study observation (narrative) DARIUS ESTRELLA [employer] Phone: XR ABDOMEN (KUB) (SINGLE AP VIEW)Ordered By: Adali Gill on 02-19-2022 DARIUS PICHARDO [employer] Phone: EKG 12 LEAD - PERFORMon 01-21 Diagnosis Normal sinus rhythm Nonspecific T wave abnormality Abnormal ECG No previous ECGs available Confirmed by OLGA MONTES ([id number]) on 02/17/2022 9:51:58 PM [facility] P wave [facility] by EKG 72 BPM [facility] P wave axis 9 degrees [facility] P-R Interval 154 ms [facility] Q-T interval 416 ms [facility] Q-T interval corrected 455 ms [facility] QRS axis 10 degrees [facility] QRS duration [...] PSE contact information provided, order faxed to [facility] per patient request. Normal [facility] PSE Appt H AND Neftali [employer] Authentication Interface Message Text Patient was identified by name and date of . Quinton Anais Bill of rights provided to patient Normal [facility] Patient Instructionson 02-16 [employer] Authentication Interface Message Text On the morning [...] pain Please hold all Vitamin E, [place] 3, fish oil and herbal supplements for 1 week prior to surgery Normal [facility] Telephone Encounteron 2021 [employer] Authentication Interface Message Text Arrangements to be made for pre-op COVID testing per ENT request. Normal [facility] FLUORO FOR SURGICAL PROCEDUR ESon 01-05-2022 Radiology exam is complete. No Radiologist dictation. Please follow up with ordering provider. [facility] RIS CONSOLIDATED , Urineon 2 Beta HCG ( test) Ql (U) Negative NEGATIVE [facility] Comment on above: Specimens with hCG l evels near the threshold of the test (25 mIU/mL) may give a negative or indeterminate result. In such cases, another test should be performed with a new specimen in 48-72 hours. If early is suspected clinically in this setting, correlation with quantitative serum b-hCG level is suggested. [employer] has confirmed the use of plasma for this test. This has not been cleared or approved by the U.S. Food and Drug Administration. The FDA has determined that such clearance is not necessary. [facility] Basic Metabolic Panelon 05 Anion gap [Moles/Vol] 8 mmol/L Low 9 - 17 mmol/L [facility] Calcium [Mass/Vol] 8.9 mg/dL 8.6 - 10. 4 mg/dL [facility] Chloride [Moles/Vol] 101 mmol/L 98 - 10 7 mmol/L [facility] CO2 [Moles/Vol] 29 mmol/L 20 - 31 mmol/L [facility] Creatinine [Mass/Vol] 0.87 mg/dL 0.50 - 0.90 mg/dL [facility] GFR >60 >60 mL/min [facility] GFR Non- >60 >60 mL/min [facility] Glucose [Mass/Vol] 98 mg/dL 70 - 99 mg/dL [facility] Interpretation and review of laboratory results Abnormal [facility] Potassium [Moles/Vol] 4.3 mmol/L 3.7 - 5.3 mmol/L [facility] Sodium [Moles/Vol] 138 mmol/L 135 - 144 mmol/L [facility] Urea nitrogen (BldV) [Mass/Vol] 8 mg/dL 6 - 20 mg/dL [facility] Urea nitrogen/Creatinine (Bld) [Mass ratio] [address] [facility] CBC with Auto Differentialon 12-30-2021 Absolute Eos # 0.38 [facility] th Absolute Immature Granulocyte 0.06 [facility] Absolute Lymph # 2.56 [facility] He alth Absolute [place] [facility] Bas[facility] (Bld) [#/Vol] 0.09 10*3/uL [facility] Basophils/100 WBC (Bld) 1 % 0 - 2 % [facility] Eosinophils/100 WBC (Bld) 4 % 1 - 4 % [facility] Hematocrit (Bld) [Volume fraction] 38.7 % 36.3 - 47.1 % [facility] Hemoglobin.gastrointest inal spec 1 Ql (Stl) 13.0 g/dL 11.9 - 15.1 g/dL [facility] Immature granulocytes/100 WBC (Bld) 1 % High 0 [facility] Interpretation and review of laboratory results Abnormal [facility] Lymphocytes/100 WBC (Bld) 27 % 24 - 43 % [facility] MCH (RBC) [Entitic mass] 33.1 pg 25.2 - 33.5 pg [facility] MCHC (RBC) [Mass/Vol] 33.6 g/dL 28.4 - 34.8 g/dL [facility] MCV (RBC) [Entitic vol] 98.5 fL 82.6 - 102.9 fL [facility] Monocytes/100 WBC (Bld) 7 % 3 - 12 % [facility] NRBC Automated 0.0 0.0 per 100 WBC [facility] Platelet distribution width (Bld) [Ratio] 12.9 % 11.8 - 14.4 % [facility] Platelet mean volume (Bld) [Entitic vol] 9.8 fL 8.1 - 13.5 fL [facility] Platelets (Bld) [#/Vol] 284 10*3/uL [facility] RBC (Bld) [#/Vol] 3.93 10*6/uL Low 3.95 - 5.1 1 m/uL [facility] Segmented neutrophils/100 WBC (Bld) 60 % 36 - 65 % [facility] Segs Absolute 5.62 [facility] h WBC (Bld) [#/Vol] 9.4 10*3/uL [facility] Laboratory - Chemistry and C hemistry - challengeon 12-30-2021 GFR/1.73 sq M.predicted MDRD (S/P/Bld) [Vol rate/Area] [facility] Comment on above: Average GFR for 40-4 9 years old: 99 mL/min/1.73sq m Chronic Kidney Disease: <60 mL/min/1.73sq m Kidney failure: <15 mL/min/1.73sq m eGFR calculated using average adult body mass. Additional eGFR calculator available at: http://www.Syntaxin/multiple_crcl_2012.htm Stage 1: Some kidney damage normal GFR Stage 2: Mild kidney damage GFR 60-89 Stage 3: Moderate kidney damage GFR 30-59 Stage 4: Severe kidney damage GFR 15-29 Stage 5: Severe kidney damage GFR <15 ESRD - chronic treatment by dialysis or transplant XR ABDOMEN (KUB) (SINGLE AP VIEW)on 12-22-2021 Nonobstructed bowel-gas pattern. No definite renal or ureteral stones. [facility] EXAMINATION: ONE SUPINE XRAY VIEW(S) OF THE ABDOMEN 12/22/2021 5:15 pm COMPARISON: October 13, 2021 HISTORY: ORDERING SYSTEM PROVIDED HISTORY: Kidney stones TECHNOLOGIST PROVIDED HISTORY: kidney stones FINDINGS: Bowel gas pattern nonobstructed. Renal shadows partially obscured by bowel gas and fecal debris. No definite renal or ureteral stones. No acute osseous abnormality. [facility] Perry Neely DO - 12/22/2021 EXAMINATION: [...] pattern. No definite renal or ureteral stones. [facility] Work Phone: Radiology Study observation (narrative) [facility] Work Phone: XR ABDOMEN (KUB) (SINGLE AP VIEW)Ordered By: ePrry Neely on 12-22-2021 [employer] Work Phone: Office Visit (Cardiology)on 12-02-2021 Follow-up [...] Recorded: 02Dec2021 03:38PM Heart Rate72, R Radial Fijzeghv92 Afcmoynyl37 Height5 ft 2 in Nxzlag615 lb BMI Lreonwukgx31.47 kg/m2 BSA Calculated1.84 Tobacco Useb) No PHQ-2 [...] 5:03PM EST (Author) [employer] Tobacco Screening.on 022 Adult depression screening assessment No -[facility] 250 DO Work Phone: Tobacco use status CPHS b) No M -[facility] 250 DO Work Phone: [...] Weight Tips; Status:Complete - Retrospective Authorization; Done: [id number] Health Maintenance Depression Follow-up Visit Outpatient Follow-up Status: Complete - Retrospective Authorization Done: [id number] SocHx: Former smoker Tobacco Use Screening; Status:Complete; Done: [id number] Tobacco Use Screening; Status:Complete; Done: [id number] Unlinked Stop: Furosemide 40 MG Oral Tablet [...] 1 t (more content not included)... Normal [employer] Tobacco Screening.on 022 Adult depression screening assessment Yes [facility] DO Work Phone: Tobacco use status CPHS b) No M [facility] DO Work Phone: Tobacco Screening. 1-Several days [facility] 250 DO Work Phone: Tobacco Screening. 3-Nearly every day [facility] DO Work Phone: Tobacco Screening. 0-Not at all [facility] DO Work Phone: Tobacco Screening. 2-More than half the days [facility] DO Work Phone: Vital Signs Date Time Vital Sign Value Performing Clinician Facility 09-10-2024 15:14-0500 Body height 157.48 cm [facility] 09-10-2024 15:14-0500 Body mass index (BMI) [Ratio] 25.6 kg/m2 [facility] 09-10-2024 15:14-0500 Body weight 63.5 kg [facility] 09-10-2024 15:14-0500 Diastolic blood pressure 94 mm[Hg] [facility] 09-10-2024 15:14-0500 Heart rate 79 /min [facility] 09-10-2024 15:14-0500 Systolic blood pressure 123 mm[Hg] [facility] 09-04-2024 10:02-0500 Body height 157.48 cm [facility] 09-04-2024 10:02-0500 Body mass index (BMI) [Ratio] 26.3 kg/m2 [facility] 09-04-2024 10:02-0500 Body weight 65.31 kg [facility] 09-04-2024 10:02-0500 Diastolic blood pressure 100 mm[Hg] [facility] 09-04-2024 10:02-0500 Heart rate 75 /min [facility] 09-04-2024 10:02-0500 SaO2% (BldA) [Mass fraction] 98 % [facility] 09-04-2024 10:02-0500 Systolic blood pressure 145 mm[Hg] [facility] 08-06-2024 16:13-0500 Body mass index (BMI) [Ratio] 26.3 kg/m2 Aurea GAVIRIA Work Phone: [facility] 08-06-2024 16:13-0500 Body weight 65.23 kg Aurea GAVIRIA Work Phone: [facility] 08-06-2024 16:13-0500 Diastolic blood pressure 80 mm[Hg] Aurea GAVIRIA Work Phone: [facility] 08-06-2024 16:13-0500 Systolic blood pressure 120 mm[Hg] Aurea GAVIRIA Work Phone: [facility] 07-31-2024 15:03-0500 Body height 157.48 cm [facility] 07-31-2024 15:03-0500 Body mass index (BMI) [Ratio] 27.1 kg/m2 [facility] 07-31-2024 15:03-0500 Body weight 67.13 kg [facility] 07-31-2024 15:03-0500 Diastolic blood pressure 93 mm[Hg] [facility] 07-31-2024 15:03-0500 Heart rate 92 /min [facility] 07-31-2024 15:03-0500 SaO2% (BldA) [Mass fraction] 97 % [facility] 07-31-2024 15:03-0500 Systolic blood pressure 131 mm[Hg] [facility] 07-13-2024 14:04-0500 Body height 157.48 cm [facility] 07-13-2024 14:04-0500 Body mass index (BMI) [Ratio] 27.1 kg/m2 [facility] 07-13-2024 14:04-0500 Body weight 67.13 kg [facility] 06-19-2024 15:37-0400 Body height 157.5 cm Gena Kofi BAR WAITER/WAITRESS Work Phone: [facility] 06-19-2024 15:37-0400 Body mass index (BMI) [Ratio] 26.26 kg/m2 Gena Keciaz [employer] WAITER/WAITRESS Work Phone: [facility] 06-19-2024 15:37-0400 Body temperature 98.6 [degF] Gena Keciaz BAR WAITER/WAITRESS Work Phone: [facility] 06-19-2024 15:37-0400 Body weight 65.14 kg Gena Keciaz BAR WAITER/WAITRESS Work Phone: [facility] 06-19-2024 15:37-0400 Diastolic blood pressure 82 mm[Hg] Gnea Keciaz BAR WAITER/WAITRESS Work Phone: [facility] 06-19-2024 15:37-0400 Heart rate 63 /min Gena Keciaz BAR WAITER/WAITRESS Work Phone: [facility] 06-19-2024 15:37-0400 Respiratory rate 18 /min Gena Joelhholz BAR WAITER/WAITRESS Work Phone: [facility] 06-19-2024 15:37-0400 SaO2% (BldA) [Mass fraction] 97 % Gena Keciaz BAR WAITER/WAITRESS Work Phone: [facility] 06-19-2024 15:37-0400 Systolic blood pressure 110 mm[Hg] Gena Aichholz BAR WAITER/WAITRESS Work Phone: [facility] 06-11-2024 15:44-0400 Body height 157.48 cm Gena Aichholz Work Phone: [facility] 06-11-2024 15:44-0400 Body mass index (BMI) [Ratio] 26.2 kg/m2 Gena Aichholz Work Phone: [facility] 06-11-2024 15:44-0400 Body weight 64.86 kg Gena Aichholz Work Phone: [facility] 05-16-2024 15:43-0400 Body height 157.48 cm Gean Aichholz Work Phone: [facility] 05-16-2024 15:43-0400 Body mass index (BMI) [Ratio] 23.8 kg/m2 Gena Aichholz Work Phone: [facility] 05-16-2024 15:43-0400 Body weight 59 kg Gena Aichholz Work Phone: [facility] 05-02-2024 15:46-0400 Body height 157.5 cm Gena Aichholz BAR WAITER/WAITRESS Work Phone: [facility] 05-02-2024 15:46-0400 Body mass index (BMI) [Ratio] 26.37 kg/m2 Gena Aichholz BAR WAITER/WAITRESS Work Phone: [facility] 05-02-2024 15:46-0400 Body temperature 98.49 [degF] Gena Aichholz BAR WAITER/WAITRESS Work Phone: [facility] 05-02-2024 15:46-0400 Body weight 65.41 kg Gena Aichholz BAR WAITER/WAITRESS Work Phone: [facility] 05-02-2024 15:46-0400 Diastolic blood pressure 88 mm[Hg] Gena Aichholz BAR WAITER/WAITRESS Work Phone: [facility] 05-02-2024 15:46-0400 Heart rate 79 /min Gena Aichholz BAR WAITER/WAITRESS Work Phone: [facility] 05-02-2024 15:46-0400 Respiratory rate 19 /min Gena Aichholz BAR WAITER/WAITRESS Work Phone: [facility] 05-02-2024 15:46-0400 SaO2% (BldA) [Mass fraction] 94 % Gena Aichholz BAR WAITER/WAITRESS Work Phone: [facility] 05-02-2024 15:46-0400 Systolic blood pressure 110 mm[Hg] Gena Aichholz BAR WAITER/WAITRESS Work Phone: [facility] 04-17-2024 11:44-0400 Body mass index (BMI) [Ratio] 27.76 kg/m2 Gena Aichholz BAR WAITER/WAITRESS Work Phone: [facility] 04-17-2024 11:44-0400 Body temperature 98.01 [degF] Gena Aichholz BAR WAITER/WAITRESS Work Phone: [facility] 04-17-2024 11:44-0400 Body weight 68.86 kg Gena Aichholz BAR WAITER/WAITRESS Work Phone: [facility] 04-17-2024 11:44-0400 Diastolic blood pressure 80 mm[Hg] Gena Aichholz BAR WAITER/WAITRESS Work Phone: [facility] 04-17-2024 11:44-0400 Heart rate 80 /min Gena Aichholz BAR WAITER/WAITRESS Work Phone: [facility] 04-17-2024 11:44-0400 Respiratory rate 18 /min Gena Aichholz BAR WAITER/WAITRESS Work Phone: [facility] 04-17-2024 11:44-0400 SaO2% (BldA) [Mass fraction] 94 % Gena Aichholz BAR WAITER/WAITRESS Work Phone: [facility] 04-17-2024 11:44-0400 Systolic blood pressure 110 mm[Hg] Gena Aichholz BAR WAITER/WAITRESS Work Phone: [facility] 04-16-2024 18:26-0400 Body height 157.48 cm [facility] 04-16-2024 18:26-0400 Body mass index (BMI) [Ratio] 23.9 kg/m2 [facility] 04-16-2024 18:26-0400 Body temperature 98.4 [degF] [facility] 04-16-2024 18:26-0400 Body weight 59.42 kg [facility] 04-16-2024 18:26-0400 Diastolic blood pressure 86 mm[Hg] [facility] 04-16-2024 18:26-0400 Heart rate 89 /min [facility] 04-16-2024 18:26-0400 Respiratory rate 18 /min [facility] 04-16-2024 18:26-0400 SaO2% (BldA) [Mass fraction] 96 % [facility] 04-16-2024 18:26-0400 Systolic blood pressure 127 mm[Hg] [facility] 03-13-2024 15:43-0400 Body height 157.48 cm Gena Aichholz Work Phone: [facility] 03-13-2024 15:43-0400 Body mass index (BMI) [Ratio] 27.3 kg/m2 Gena Aichholz Work Phone: [facility] 03-13-2024 15:43-0400 Body weight 68 kg Gena Aichholz Work Phone: [facility] 12-12-2023 15:54-0400 Body height 157.48 cm Gena Aichholz Work Phone: [facility] 12-12-2023 15:54-0400 Body mass index (BMI) [Ratio] 27.4 kg/m2 Gena Aichholz Work Phone: [facility] 12-12-2023 15:54-0400 Body weight 68.03 kg Gena Aichholz Work Phone: [facility] 12-12-2023 15:54-0400 Diastolic blood pressure 97 mm[Hg] Gena Aichholz Work Phone: [facility] 12-12-2023 15:54-0400 Heart rate 103 /min Gena Aichholz Work Phone: [facility] 12-12-2023 15:54-0400 Systolic blood pressure 137 mm[Hg] Gena Aichholz Work Phone: [facility] 11-02-2023 15:32-0400 Body height 157.48 cm Gena Aichholz Work Phone: [facility] 11-02-2023 15:32-0400 Body mass index (BMI) [Ratio] 27.4 kg/m2 Gena Aichholz Work Phone: [facility] 11-02-2023 15:32-0400 Body weight 68.03 kg Gena Aichholz Work Phone: [facility] 11-02-2023 15:32-0400 Heart rate 67 /min Gena Aichholz Work Phone: [facility] 10-14-2023 12:37-0500 Body height 157.48 cm Gena Aichholz Work Phone: [facility] 10-14-2023 12:37-0500 Body mass index (BMI) [Ratio] 28 kg/m2 Gena Aichholz Work Phone: [facility] 10-14-2023 12:37-0500 Body temperature 99.4 [degF] Gena Aichholz Work Phone: [facility] 10-14-2023 12:37-0500 Body weight 69.62 kg Gena Aichholz Work Phone: [facility] 10-14-2023 12:37-0500 Diastolic blood pressure 94 mm[Hg] Gena Aichholz Work Phone: [facility] 10-14-2023 12:37-0500 Heart rate 81 /min Gena Aichholz Work Phone: [facility] 10-14-2023 12:37-0500 Respiratory rate 16 /min Gena Aichholz Work Phone: [facility] 10-14-2023 12:37-0500 SaO2% (BldA) [Mass fraction] 97 % Gena Aichholz Work Phone: [facility] 10-14-2023 12:37-0500 Systolic blood pressure 131 mm[Hg] Gena Aichholz Work Phone: [facility] 09-20-2023 15:30-0500 Body height 157.48 cm Wiley Mcmanus Other [facility] 09-20-2023 15:30-0500 Body mass index (BMI) [Ratio] 30.18 kg/m2 Wiley Mcmanus Other [facility] [employer] Other 09-20-2023 15:30-0500 Body weight 74.84 kg Wiley Mcmanus Other [facility] 08-08-2023 13:25-0500 Diastolic blood pressure 89 mm[Hg] Gena Aichholz Work Phone: [facility] 08-08-2023 13:25-0500 Heart rate 75 /min Gena Aichholz Work Phone: [facility] 08-08-2023 13:25-0500 Respiratory rate 16 /min Gena Aichholz Work Phone: [facility] 08-08-2023 13:25-0500 SaO2% (BldA) [Mass fraction] 99 % Gena Aichholz Work Phone: [facility] 08-08-2023 13:25-0500 Systolic blood pressure 117 mm[Hg] Gena Kirby Work Phone: [facility] 08-08-2023 11:41-0500 Body height 157.48 cm Gena Kirby Work Phone: [facility] 08-08-2023 11:41-0500 Body weight 77.11 kg Gena Kirby Work Phone: [facility] 06-30-2023 09:20-0500 Body height 157.48 cm Majo Scovanner Other [employer] Other 06-30-2023 09:20-0500 Body mass index (BMI) [Ratio] 30.18 kg/m2 Majo Scovanner Other [employer] Other 06-30-2023 09:20-0500 Body weight 74.84 kg Majo Scovanner Other [employer] Other 06-30-2023 09:20-0500 Diastolic blood pressure 87 mm[Hg] Majo Scovanner Other [employer] Other 06-30-2023 09:20-0500 Systolic blood pressure 115 mm[Hg] Majo Scovanner Other [employer] Other 06-07-2023 12:30-0400 Body height 157.48 cm Louise Johnson Other [employer] Other 06-07-2023 12:30-0400 Body mass index (BMI) [Ratio] 31.05 kg/m2 Louise Johnson Other [employer] Other 06-07-2023 12:30-0400 Body temperature 98 [degF] Louise Johnson Other [employer] Other 06-07-2023 12:30-0400 Body weight 77.02 kg Louise Johnson Other [employer] Other 06-07-2023 12:30-0400 Diastolic blood pressure 78 mm[Hg] Louise Johnson Other [employer] Other 06-07-2023 12:30-0400 Respiratory rate 18 /min Louise Johnson Other [employer] Other 06-07-2023 12:30-0400 SaO2% (BldA) [Mass fraction] 98 % Louise Johnson Other [employer] Other 06-07-2023 12:30-0400 Systolic blood pressure 117 mm[Hg] Louise Johnson Other [employer] Other 07-17-2022 04:28-0500 Body temperature 98.29 [degF] Rikki Rodrigues DMD, MD Work Phone: [facility] 07-17-2022 04:28-0500 Diastolic blood pressure 80 mm[Hg] Rikki Rodrigues DMD, MD Work Phone: [facility] 07-17-2022 04:28-0500 Heart rate 54 /min Rikki Rodrigues DMD, MD Work Phone: [facility] 07-17-2022 04:28-0500 Respiratory rate 18 /min Rikki Rodrigues DMD, MD Work Phone: [facility] 07-17-2022 04:28-0500 SaO2% (BldA) [Mass fraction] 96 % Rikki Rodrigues DMD, MD Work Phone: [facility] 07-17-2022 04:28-0500 Systolic blood pressure 109 mm[Hg] Rikki Rodrigues DMD, MD Work Phone: [facility] 07-14-2022 15:17-0500 Body mass index (BMI) [Ratio] 36.29 kg/m2 Rikki Rodrigues DMD, MD Work Phone: [facility] 07-14-2022 15:17-0500 Body weight 90 kg Rikki Rodrigues DMD, MD Work Phone: [facility] 07-14-2022 14:55-0500 Body height 157.5 cm Rikki Rodrigues DMD, MD Work Phone: [facility] 07-14-2022 09:01-0500 SaO2% (BldA) [Mass fraction] 98.8 % Rikki Rodrigues DMD, MD Work Phone: [facility] 07-08-2022 13:59-0500 Body height 157.5 cm Gena Holbrook [employer]IC [employer] 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 Work Phone: [facility] 07-08-2022 13:59-0500 Body mass index (BMI) [Ratio] 35.96 kg/m2 Genasue Peterio [employer] 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 Work Phone: [employer] 07-08-2022 13:59-0500 Body temperature 97.9 [degF] Gena Yusef [employer]IC [employer] TEXTILE 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 Work Phone: [employer] 07-08-2022 13:59-0500 Body weight 89.18 kg Gena Yusef [employer] TEXT[employer] 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 Work Phone: [employer] 07-08-2022 13:59-0500 Diastolic blood pressure 80 mm[Hg] Gena Yusef [employer] 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 Work Phone: [employer] 07-08-2022 13:59-0500 Heart rate 98 /min Gena Yusef [employer] 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 Work Phone: [employer] 07-08-2022 13:59-0500 Respiratory rate 14 /min Gena Yusef [employer] 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 [facility] 07-08-2022 13:59-0500 SaO2% (BldA) [Mass fraction] 98 % Gena Holbrook APRN-CLEANING LABORER Work Phone: [facility] 07-08-2022 13:59-0500 Systolic blood pressure 122 mm[Hg] Gena Holbrook APRN-CLEANING LABORER [facility] 06-18-2022 15:09-0400 Diastolic blood pressure 89 mm[Hg] Rikki Rodrigues DMD, MD Work [facility] 06-18-2022 15:09-0400 Heart rate 117 /min Rikki Rodrigues DMD, MD [facility] 06-18-2022 15:09-0400 Systolic blood pressure 120 mm[Hg] Rikki Rodrigues DMD, MD [facility] 06-18-2022 15:07-0400 Body height 157.5 cm Rikki Rodrigues DMD, MD [facility] 06-18-2022 15:07-0400 Body mass index (BMI) [Ratio] 34.75 kg/m2 Rikki Rodrigues DMD, MD [facility] 06-18-2022 15:07-0400 Body weight 86.18 kg Rikki Rodrigues DMD, MD [facility] 05-28-2022 09:00-0400 Body height 157.5 cm Pse Rn [facility] 05-28-2022 09:00-0400 Body mass index (BMI) [Ratio] 34.75 kg/m2 Pse [facility] 05-28-2022 09:00-0400 Body weight 86.18 kg Pse R[facility] 02-26-2022 12:49-0400 Body temperature 97.81 [degF] Yi Moreno MD [facility] 02-26-2022 12:49-0400 Diastolic blood pressure 57 mm[Hg] Yi Moreno MD Work Phone: [employer] 02-26-2022 12:49-0400 Heart rate 78 /min Yi Moreno MD Work Phone: [facility] 02-26-2022 12:49-0400 Respiratory rate 18 /min [facility]i [facility]no MD [facility] 02-26-2022 12:49-0400 SaO2% (BldA) [Mass fraction] 92 % Yi Moreno MD Work Phone: [facility] 02-26-2022 12:49-0400 Systolic blood pressure 101 mm[Hg] Yi Moreno MD [facility] 02-25-2022 18:16-0400 Body mass index (BMI) [Ratio] 32.92 kg/m2 Yi Moreno MD Work Phone: [facility] 02-25-2022 18:16-0400 Body weight 81.65 kg Yi Moreno MD Work Phone: [facility] 02-25-2022 08:08-0400 Body height 157.5 cm Yi [facility]no MD [facility] 02-17-2022 22:11-0400 Heart rate 72 /min Pierce Ramos [employer] 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 Work [facility] 02-16-2022 14:19-0400 Body height 157.5 cm Pierce Ramos [employer] 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 Work Phone: [employer] 02-16-2022 14:19-0400 Body mass index (BMI) [Ratio] 32.92 kg/m2 Pierce Ramos [employer] 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 Work Phone: [employer] 02-16-2022 14:19-0400 Body temperature 97.3 [degF] Pierce Ramos [employer] 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 Work Phone: [employer] 02-16-2022 14:19-0400 Body weight 81.65 kg Pierce Ramos APRN-BRIAN Work Phone: [facility] 02-16-2022 14:19-0400 Diastolic blood pressure 81 mm[Hg] Pierce Ramos APRN-CLEANING LABORER Work Phone: [facility] 02-16-2022 14:19-0400 Heart rate 74 /min Pierce Ramos APRN-CLEANING LABORER Work Phone: [facility] 02-16-2022 14:19-0400 Respiratory rate 16 /min Pierce Ramos [employer] 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 Work Phone: [facility] 02-16-2022 14:19-0400 SaO2% (BldA) [Mass fraction] 96 % Pierce Ramos APRN-CLEANING LABORER [facility] 02-16-2022 14:19-0400 Systolic blood pressure 125 mm[Hg] Pierce Ramos APRN-CLEANING LABORER Work Phone: [facility] 01-11-2022 14:20-0400 Diastolic blood pressure 87 mm[Hg] Yi Moreno MD [facility] 01-11-2022 14:20-0400 Heart rate 86 /min Yi Moreno MD Work Phone: [facility] 01-11-2022 14:20-0400 Systolic blood pressure 116 mm[Hg] Yi Moreno MD Work Phone: [facility] 01-11-2022 14:12-0400 Body height 157.5 cm Yi Moreno MD Work Phone: [facility] 01-11-2022 14:12-0400 Body mass index (BMI) [Ratio] 34.39 kg/m2 Yi Moreno MD Work Phone: [facility] 01-11-2022 14:12-0400 Body temperature 98.8 [degF] Yi [facility]no MD [facility] 01-11-2022 14:12-0400 Body weight 85.28 kg Yi Moreno MD [facility] 01-11-2022 14:12-0400 Respiratory rate 18 /min [facility] 01-11-2022 14:12-0400 SaO2% (BldA) [Mass fraction] 100 % Yi Moreno MD [facility] 01-05-2022 16:25-0400 Diastolic blood pressure 82 mm[Hg] [facility]sch [facility] 01-05-2022 16:25-0400 Heart rate 87 /min Bertha Hirsch MD [facility] 01-05-2022 16:25-0400 Respiratory rate 16 /min Bertha Hirsch MD [facility] 01-05-2022 16:25-0400 SaO2% (BldA) [Mass fraction] 94 % Bertha Hirsch MD [facility] 01-05-2022 16:25-0400 Systolic blood pressure 122 mm[Hg] Bertha Hirsch MD [facility] 01-05-2022 16:00-0400 Body temperature 96.91 [degF] Bertha Hirsch MD [facility] 01-05-2022 13:35-0400 Body height 157.5 cm Bertha Hirsch MD Work Phone: [facility] [employer] 01-05-2022 13:21-0400 Body mass index (BMI) [Ratio] 34.06 kg/m2 Bertha Hirsch MD [facility] 01-05-2022 13:21-0400 Body weight 84.46 kg Bertha Hirsch MD Work Phone: [facility] [employer] 12-02-2021 15:38-0400 Body height 157.48 cm Gena Maldonadohholz Work Phone: [facility] 250 DO Work Phone: 12-02-2021 15:38-0400 Body mass index (BMI) [Ratio] 33.47 kg/m2 Gena Jang Aichholz Work Phone: [facility] 250 DO Work Phone: 12-02-2021 15:38-0400 Body surface area Derived from formula 1.84 m2 Gena Jang Aichholz Work Phone: [facility] 250 DO Work Phone: 12-02-2021 15:38-0400 Body weight 83.01 kg Gena Maldonadohholz Work Phone: [facility] 250 DO Work Phone: 12-02-2021 15:38-0400 Diastolic blood pressure 70 mm[Hg] Gena Jang Aichholz Work Phone: [facility] 250 DO Work Phone: 12-02-2021 15:38-0400 Heart rate 72 /min Gena Jang Aichholz Work Phone: [facility] 250 DO Work Phone: 12-02-2021 15:38-0400 Systolic blood pressure 92 mm[Hg] Gena Jang Aichholz Work Phone: [facility] 250 DO Work Phone: 11-09-2021 15:15-0400 Body height 157.48 cm Wiley Mcmanus Other [employer] Other 11-09-2021 15:15-0400 Body mass index (BMI) [Ratio] 32.55 kg/m2 Wiley Mcmanus Other [employer] Other 11-09-2021 15:15-0400 Body temperature 98.5 [degF] Wiley Mcmanus Other [employer] Other 11-09-2021 15:15-0400 Body weight 80.74 kg Wiley Yonathan Other [employer] Other 11-09-2021 15:15-0400 Diastolic blood pressure 81 mm[Hg] Wiley Mcmanus Other [employer] Other 11-09-2021 15:15-0400 SaO2% (BldA) [Mass fraction] 94 % Wiley Mcmanus Other [employer] Other 11-09-2021 15:15-0400 Systolic blood pressure 122 mm[Hg] Wiley Mcmanus Other [employer] Other 10-14-2021 15:34-0500 Diastolic blood pressure 98 mm[Hg] Gena Kirby Work Phone: [employer] [facility]ly [facility] [employer] 250 DO Work Phone: 10-14-2021 15:34-0500 Systolic blood pressure 152 mm[Hg] Gena Kirby Work Phone: [employer] 250 DO Work Phone: 10-14-2021 15:23-0500 Body height 157.48 cm Gena Kirby Work Phone: [employer] 250 DO Work Phone: 10-14-2021 15:23-0500 Body mass index (BMI) [Ratio] 33.47 kg/m2 Gena Kirby Work Phone: [facility] 250 DO Work Phone: 10-14-2021 15:23-0500 Body surface area Derived from formula 1.84 m2 Gena Jang Joelnicanordia Work Phone: [facility] 250 DO Work Phone: 10-14-2021 15:23-0500 Body weight 83.01 kg Gena Jang Joelnicanordia Work Phone: [facility] 250 DO Work Phone: 10-14-2021 15:23-0500 Diastolic blood pressure 98 mm[Hg] Gena Jang Kofi Work Phone: [facility] 250 DO Work Phone: 10-14-2021 15:23-0500 Heart rate 78 /min Gena Laine Kirby Work Phone: [facility] 250 DO Work Phone: 10-14-2021 15:23-0500 Systolic blood pressure 160 mm[Hg] Gena Jagn Joelnicanordia Work Phone: [facility] 250 DO Work Phone: 10-14-2021 15:23-0500 16 1 Gena Laine Kirby Work Phone: [facility] 250 DO Work Phone: Comment on above: PHQ-9 TS Encounters Encounter Date Encounter Type Care Provider Facility Start: 09-13-2024 End: 09-13-2024 [facility] Start: 09-13-2024 End: 09-13-2024 Subsequent hospital visit by physician Gena Kirby FABRIC AND TEXTILE 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 - BAR WAITER/WAITRESS [facility] Comment on above: Dysuria Start: 09-13-2024 End: 09-13-2024 Clinisync Result Encounter Generic External Data Provider [facility] External Department Unsolicited Start: 09-13-2024 End: 09-13-2024 Clinisync Result Encounter Generic External Data Provider [facility] External Department Unsolicited Start: 09-12-2024 End: 09-12-2024 Refill Gena Kirby BAR WAITER/WAITRESS Work Phone: [facility] C[facility] FM Comment on above: Hypokalemia Start: 09-10-2024 End: 09-10-2024 ambulatory [facility] Work Phone: Start: 09-10-2024 End: 09-10-2024 Patient encounter procedure [facility] Work Phone: Start: 09-04-2024 End: 09-04-2024 Telephone encounter Rhina Amor MD Work Phone: [facility] ENDOCRINOLOGY Comment on above: Med Refill Start: 09-04-2024 End: 09-04-2024 ambulatory [facility] Work Phone: Start: 09-04-2024 End: 09-04-2024 Patient encounter procedure [facility] Sleep [facility] Work Phone: Start: 08-06-2024 End: 08-06-2024 Office outpatient visit 15 minutes Aurea GAVIRIA Work Phone: [facility] BCP OB Comment on above: Complex ovarian cyst ; Night sweats Start: 08-06-2024 End: 08-06-2024 ambulatory AUREA MARC Not Available Start: 07-31-2024 End: 07-31-2024 Patient encounter procedure [facility] Physician [facility] Sleep Lab Work Phone: Start: 07-17-2024 End: 07-17-2024 ambulatory GENA KIRBY [facility] Start: 07-14-2024 End: 07-14-2024 Letter encounter Yi Moreno MD Work Phone: [facility] Start: 07-13-2024 End: 07-13-2024 Patient encounter procedure [facility] G[facility] Work Phone: Start: 06-19-2024 End: 06-19-2024 Office outpatient visit 15 minutes Gena Kirby BAR WAITER/WAITRESS Work Phone: [facility] FM Comment on above: Primary hypertension (CMS/HCC) (Primary Dx); Hypokalemia; DIONNE (obstructive sleep apnea); Other microscopic colitis (CMS/HCC); Irritable bowel syndrome with diarrhea; Overweight (BMI 25.0-29.9); Generalized anxiety disorder with panic attacks (CMS/HCC); Bipolar II disorder (CMS/HCC); Mixed hyperlipidemia (CMS/HCC) Start: 06-19-2024 End: 06-19-2024 ambulatory GENA KOFI Not Available Start: 06-19-2024 End: 06-19-2024 Bamboo flowsheet Gena Kirby BAR WAITER/WAITRESS Work Phone: [facility] Start: 06-19-2024 End: 06-19-2024 Bamboo flowsheet Gena Kofi BAR WAITER/WAITRESS Work Phone: [facility] Start: 06-11-2024 End: 06-11-2024 ambulatory Gena J Joelhholz Work Phone: [facility] Work Phone: Start: 06-11-2024 End: 06-11-2024 Patient encounter procedure Gena Joelhholz Work Phone: [facility] Physician [facility] Gastroenterology Work Phone: Start: 05-16-2024 End: 05-16-2024 ambulatory Gena J Joelhholz Work Phone: [facility] Work Phone: Start: 05-16-2024 End: 05-16-2024 Patient encounter procedure Gena Joelhholz Work Phone: [facility] Physician [facility] Gastroenterology Work Phone: Start: 05-08-2024 End: 05-08-2024 Patient encounter procedure Gena Joelhholz Work Phone: [facility] [place] Work Phone: Start: 05-08-2024 End: 05-08-2024 ambulatory Gena Kirby Work Phone: [facility] Work Phone: Start: 05-07-2024 End: 05-07-2024 Clinisync Result Encounter Gnea Camachodia BAR WAITER/WAITRESS Work Phone: [facility] External Department Unsolicited Start: 05-07-2024 End: 05-07-2024 Clinisync Result Encounter Gena Camachofreddythong BAR WAITER/WAITRESS Work Phone: [facility] External Department Unsolicited Start: 05-02-2024 End: 05-02-2024 Office outpatient visit 15 minutes Gena Joelnicanordia BAR WAITER/WAITRESS Work Phone: [facility] FM Comment on above: Acute URI (Primary D x); Overweight (BMI 25.0-29.9) Start: 05-02-2024 End: 05-02-2024 ambulatory GENA CAMACHOFREDDYThong Not Available Start: 05-02-2024 End: 05-02-2024 Bamboo flowsheet Gena Kirby BAR WAITER/WAITRESS Work Phone: [facility] Start: 05-02-2024 End: 05-02-2024 Bamboo flowsheet Gena Camachodia BAR WAITER/WAITRESS Work Phone: [facility] Start: 04-26-2024 End: 04-26-2024 Clinisync Result Encounter Generic External Data Provider [facility] External Department Unsolicited Start: 04-26-2024 End: 04-26-2024 Clinisync Result Encounter Generic External Data Provider [facility] External Department Unsolicited Start: 04-17-2024 End: 04-17-2024 Office outpatient visit 15 minutes Gena Kofi BAR WAITER/WAITRESS Work Phone: [facility] Comment on above: Herpes zoster withou t complication (Primary Dx); Overweight (BMI 25.0-29.9) Start: 04-17-2024 End: 04-17-2024 ambulatory GENA KECIAZ Not Available Start: 04-16-2024 End: 04-16-2024 ambulatory [facility] Work Phone: Start: 04-16-2024 End: 04-16-2024 Patient encounter procedure [facility] [place] Work Phone: Start: 04-12-2024 End: 04-12-2024 ambulatory [facility] Start: 04-02-2024 End: 04-02-2024 ambulatory GENA KOFI [facility] Start: 03-26-2024 End: 03-26-2024 ambulatory GENA NICKHOLZ Not Available Start: 03-26-2024 End: 05-02-2024 Preoperative state Gena Kofi BAR WAITER/WAITRESS Work Phone: [facility] Start: 03-13-2024 End: 03-13-2024 ambulatory Gena J Kofi Work Phone: [facility] Work Phone: Start: 03-13-2024 End: 03-13-2024 Patient encounter procedure Gena Kofi Work Phone: [facility] Physician [facility] Gastroenterology Work Phone: Start: 01-25-2024 End: 01-25-2024 ambulatory GENA KECIAZ Not Available Start: 12-29-2023 End: 12-29-2023 ambulatory Gena J Joelhholz Work Phone: [facility] Work Phone: Start: 12-29-2023 End: 12-29-2023 Departed Referred Gena Kofi Work Phone: [facility] Start: 12-28-2023 End: 12-28-2023 ambulatory [facility] Start: 12-16-2023 End: 12-16-2023 ambulatory Gena Sina Camachoholz Work Phone: [facility] Work Phone: Start: 12-16-2023 Non-patient / Non-visit Genasue mckeon Work Phone: [facility] Sleep Lab Work Phone: Start: 12-16-2023 End: 12-16-2023 Patient encounter procedure Genasue Camachoholz Work Phone: [facility]Sleep Lab Work Phone: Start: 12-14-2023 End: 12-14-2023 ambulatory Gena Sina Camachoholz Work Phone: [facility] Work Phone: Start: 12-14-2023 End: 12-14-2023 Patient encounter procedure Genasue Camachoholz Work Phone: [facility]-Sleep Lab Work Phone: Start: 12-12-2023 End: 12-12-2023 ambulatory Gena Camachoholz Work Phone: [facility] Work Phone: Start: 12-12-2023 End: 12-12-2023 Patient encounter procedure Genasue Camachoholz Work Phone: [facility] Gastroenterology Work Phone: Start: 11-24-2023 End: 11-24-2023 ambulatory LLOYD Fleming [facility] Start: 11-22-2023 End: 11-22-2023 ambulatory AUREA MARC Not Available Start: 11-02-2023 End: 11-02-2023 Patient encounter procedure Gena Aichholz Work Phone: [facility] Work Phone: Start: 10-14-2023 End: 10-14-2023 ambulatory Gena J Joelnicanordia Work Phone: [facility] Work Phone: Start: 10-14-2023 End: 10-14-2023 Patient encounter procedure Gena Camachofreddythong Work Phone: [facility] [place] Work Phone: Start: 10-11-2023 End: 10-11-2023 ambulatory [facility] Start: 09-29-2023 End: 10-01-2023 ambulatory GENA Evette KIRBY [facility] Start: 09-20-2023 End: 09-20-2023 Patient encounter procedure Gena Joelnicanordia Work Phone: [facility]Sleep Lab Work Phone: Start: 09-20-2023 End: 09-20-2023 ambulatory Gena Andino Joelnican[place]ia Work Phone: [facility] Work Phone: Start: 09-20-2023 Office outpatient vi sit 25 minutes Wiley [facility] Start: 09-20-2023 End: 09-20-2023 Patient encounter procedure Gena Camachofreddythong Work Phone: [facility]- Start: 08-26-2023 End: 08-26-2023 ambulatory [facility] Start: 08-24-2023 End: 08-24-2023 ambulatory GENA CAMACHODIA Not Available Start: 08-12-2023 End: 08-12-2023 ambulatory Imad Asaad Other [employer] Other Start: 08-12-2023 Telephone encounter Imad Asaad [facility] Start: 08-10-2023 End: 08-10-2023 ambulatory Imad Asaad Other [employer] Other Start: 08-10-2023 Telephone encounter Imad Asaad [facility] Start: 08-08-2023 End: 08-08-2023 Admission to same day surgery center Gena Kirby Work Phone: [facility] Work Phone: Start: 08-08-2023 End: 08-08-2023 ambulatory Gena Kirby Work Phone: [facility] Work Phone: Start: 06-30-2023 End: 06-30-2023 Patient encounter procedure Gena Kirby Work Phone: [facility] [place] Work Phone: Start: 06-30-2023 End: 06-30-2023 ambulatory Gena iKrby Work Phone: [employer] Other Start: 06-30-2023 Office outpatient ne w 30 minutes Majo Lyman [facility] Gastroenterology Start: 06-30-2023 End: 06-30-2023 Patient encounter procedure Gena Kirby Work Phone: [facility] Work Phone: Start: 06-07-2023 End: 06-07-2023 ambulatory Louise Johnson Other [employer] [facility] [employer] Other Start: 06-07-2023 Encounter by nat r link Louise Johnson [facility] [place] Start: 06-07-2023 Office outpatient vi sit 25 minutes Louise Johnson [facility] [place] Start: 03-16-2023 End: 03-16-2023 ambulatory Gena Camachoholz Work Phone: [facility] Work Phone: Start: 03-16-2023 End: 03-16-2023 Patient encounter procedure Gena Kirby Work Phone: [facility]-Sleep Lab Work Phone: Start: 01-26-2023 Telephone encounter Rikki norris DMD, MD Work Phone: [facility] Oral Surgery Start: 01-18-2023 ambulatory BRIAN Haro ity:H1 Start: 12-13-2022 End: 12-13-2022 Subsequent hospital visit by physician Gena Kirby Work Phone: [facility] Laboratory Comment on above: OAB (overactive blad darinel); Urge incontinence; Frequency of urination Start: 11-26-2022 End: 11-26-2022 ambulatory BRIAN CAMACHOFREDDYThong Facility:[facility]1 Start: 11-16-2022 End: 11-16-2022 ambulatory Gena Andino Joelnicanorfreddythong Work Phone: [facility] Work Phone: Start: 11-16-2022 End: 11-16-2022 Patient encounter procedure Gena Kirby Work Phone: [facility]-Sleep Lab Work Phone: Start: 11-12-2022 End: 11-12-[address] OSWALD HARRINGTON . Facility: Start: 11-04-2022 Telephone encounter Yi wylie MD Work Phone: [facility] Otolaryngology (ENT) Start: 11-01-2022 Encounter for preprocedural cardiovascular examination DR OSWALD HARRINGTON . [facility] Start: 11-01-2022 Telephone encounter Rikki norris DMD, MD Work Phone: [facility] Oral Surgery Start: 10-28-2022 End: 10-29-2022 [...] visit by physician Gena Kirby Work Phone: [facility] Comment on above: Dysuria Start: 08-11-2022 [...] 07-17-2022 Evaluation and management of inpatient RIKKI RODRIGUES [facility] Start: 07-14-2022 End: 07-15-2022 ambulatory [facility]IGUES [facility] Start: 07-14-2022 End: 07-14-2022 Subsequent hospital visit by physician Rikki Rodrigues DMD, MD Work Phone: [facility] Radiology Comment on above: Arrived Start: 07-14-2022 End: 07-17-2022 Evaluation and management of inpatient Rikki Rodrigues DMD, MD Work Phone: [facility] [address] A Comment on above: DIONNE (obstructive sle ep apnea) (Primary Dx); Pain Start: 07-09-2022 Telephone encounter Yi wylie MD Work Phone: [facility] Otolaryngology (ENT) Comment on above: Patient questions/co ncerns (Patient asking what next step is after jaw surgery) Start: 07-08-2022 End: 07-09-2022 ambulatory UNKNOWN PROVIDER Facility:[facility] Start: 07-08-2022 End: 07-09-2022 Office outpatient new 45 minutes Gena Holbrook APRN-CLEANING LABORER Work Phone: [facility] Pre Surgical Evaluation Comment on above: Pre-op testing (Prim aym Dx); Body mass index (BMI) 35.0-35.9, adult Start: 07-08-2022 End: 07-09-2022 Patient encounter status Gena Yusef PINON-CLEANING LABORER Work Phone: [facility] Pre Surgical Evaluation Start: 07-07-2022 End: 07-08-2022 ambulatory BRIAN KIRBY Facility: Start: 07-06-2022 End: 07-06-2022 Patient encounter procedure Pierce Ramos F[employer]IC [employer] TEXTILE 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 Work Phone: [facility] [place] Pre-Surgical Evaluation Comment on above: ENCOUNTER OPENED IN ERROR (Primary Dx) Start: 07-05-2022 Telephone encounter Mary guy RN [facility] Pre Surgical Evaluation Comment on above: Pre-surgical Evaluat ion (Pre-op COVID testing not needed ) Start: 07-02-2022 End: 07-06-2022 ambulatory UNKNOWN PROVIDER Facility:[facility] Start: 07-02-2022 End: 07-02-2022 Follow-up encounter Rikki Rodrigues DMD, MD Work Phone: [facility] Oral Surgery Start: 07-02-2022 End: 07-02-2022 Patient encounter procedure Rikki Rodrigues DMD, MD Work Phone: [facility] Oral Surgery Comment on above: DIONNE (obstructive sle ep apnea) (Primary Dx) Start: 06-18-2022 End: 06-20-2022 Office outpatient new 30 minutes Rikki Rodrigues DMD, MD Work Phone: [facility] Oral Surgery Comment on above: Obstructive sleep ap shaun (Primary Dx); DIONNE (obstructive sleep apnea); Body mass index (BMI) 34.0-34.9, adult Start: 06-18-2022 End: 06-20-2022 Orders Only Saleem Mi CHAU Work Phone: [facility] Oral Surgery Start: 06-15-2022 End: 06-15-2022 ambulatory UNKNOWN PROVIDER Facility:[facility] Start: 06-03-2022 End: 06-03-2022 ambulatory YI MORENO Facility:[facility] Start: 05-31-2022 End: 05-31-2022 ambulatory Isabel Sin Other [employer] Other Start: 05-31-2022 Office outpatient vi sit 5 minutes Isabel Sin [facility] [place] Start: 05-28-2022 [facility] Comment on above: Pre-surgical Evaluat ion (Pre-op COVID testing) Start: 05-28-2022 ambulatory [facility]KNOWN PROVIDER [facility] Start: 05-28-2022 End: 05-28-2022 Nursing evaluation of patient and [facility] Comment on above: Preop examination (P rimary Dx) Start: 05-28-2022 End: 05-28-2022 Preprocedural examination done Pse Judson Lucas Pre Surgical Evaluation Start: 05-26-2022 Telephone encounter Mary Lucas Pre Surgical Evaluation Comment on above: Pre-surgical Evaluat ion (Pre-op COVID testing) Start: 05-19-2022 End: 05-19-2022 ambulatory Gena Kirby Work Phone: [facility] Work Phone: Start: 05-19-2022 End: 05-19-2022 Patient encounter procedure Gena Kirby Work Phone: [facility]-Sleep Lab Start: 05-18-2022 Letter encounter Yi saunders MD Work Phone: [facility] Otolaryngology (ENT) Start: 05-17-2022 End: 05-18-[address] WILEY POE Facility:[facility] Start: 05-11-2022 End: 05-12-[address] OSWALD HARRINGTON . Facility:[facility] Start: 05-07-2022 End: 05-08-[address] OSWALD HARRINGTON . Facility:[facility] Start: 03-29-2022 End: 03-30-2022 Phys/qhp telephone evaluation 11-20 min Yi Moreno MD Work Phone: [facility] Otolaryngology (ENT) Comment on above: DIONNE (obstructive sle ep apnea) (Primary Dx) Start: 03-29-2022 End: 03-30-2022 ambulatory UNKNOWN PROVIDER Facility:[facility] Start: 03-09-2022 End: 03-10-2022 ambulatory CLEANING LABORER GENA KOFI Facility:[facility] Start: 03-09-2022 Telephone encounter Yi wylie MD Work Phone: [facility] Otolaryngology (ENT) Start: 02-25-2022 End: 02-26-2022 Evaluation and management of inpatient YI MORENO Facility:[facility] Start: 02-25-2022 End: 02-26-2022 Subsequent hospital visit by physician Yi Moreno MD Work Phone: Inpatient 8B Comment on above: Encounter for labora torje testing for severe acute respiratory syndrome coronavirus 2 (SARS-CoV-2) (Primary Dx); DIONNE (obstructive sleep apnea); Postoperative pain Start: 02-24-2022 Telephone encounter Mary guy RN [facility] Pre Surgical Evaluation Comment on above: Pre-surgical Evaluat ion (Pre-op COVID testing - results) Start: 02-23-2022 End: 02-24-[address] DOCTOR ABDULLAHI Facility: Start: 02-19-2022 End: 02-21-2022 Subsequent hospital visit by physician Yaneth Sharp Dr Room 2 [facility] Radiology Comment on above: Ureteral stone Start: 02-17-2022 Telephone encounter Mary guy RN [facility] Pre Surgical Evaluation Comment on above: Pre-surgical Evaluat ion (Pre-op COVID testing) Start: 02-16-2022 End: 02-18-2022 ambulatory UNKNOWN PROVIDER Facility:[facility] Start: 02-16-2022 Encounter for other preprocedural examination [facility] Start: 02-16-2022 End: 02-17-2022 Office outpatient new 45 minutes Pierce Ramos FABRIC AND TEXTILE 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 Work Phone: [facility] Pre-Surgical Evaluation Comment on above: Preop testing (Prima ry Dx); Abnormal electrocardiogram (ECG) (EKG); Body mass index (BMI) 32.0-32.9, adult Start: 02-16-2022 End: 02-17-2022 Patient encounter status Pierce Ramos FAB[employer]IC AND TEXTILE 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 Work Phone: [facility] Pre-Surgical Evaluation Start: 02-16-2022 Telephone encounter Yi wylie MD Work Phone: [facility] Otolaryngology (ENT) Start: 02-11-2022 Telephone encounter Mary guy RN [facility] Pre Surgical Evaluation Comment on above: Pre-surgical Evaluat ion (Pre-op COVID testing) Start: 02-04-2022 Letter encounter Yi saunders MD Work Phone: [facility] Otolaryngology (ENT) Start: 01-12-2022 End: 01-12-2022 ambulatory Wiley Mcmanus Other [employer] Other Start: 01-12-2022 Telephone encounter Wiley [facility] Sleep Lab Start: 01-11-2022 End: 01-11-2022 Office consultation new/estab patient 60 min Yi Moreno MD Work Phone: [facility] Otolaryngology (ENT) Comment on above: DIONNE (obstructive sle ep apnea) (Primary Dx); Body mass index (BMI) 34.0-34.9, adult Start: 01-05-2022 End: 01-05-2022 Subsequent hospital visit by physician Bertha Hirsch MD Work Phone: [facility] OR Start: 12-30-2021 End: 12-30-2021 Patient encounter status Gena Kirby Work Phone: [facility] Laboratory Start: 12-30-2021 End: 12-30-2021 Subsequent hospital visit by physician Gena Kirby Work Phone: [facility] Laboratory Comment on above: Pre-op testing Start: 12-22-2021 End: 12-24-2021 Subsequent hospital visit by physician [facility] Radiology Comment on above: Kidney stones Start: 12-02-2021 Office outpatient vi sit 10 minutes Gena Kirby Work Phone: [facility] [employer] 250 DO Work Phone: Start: 11-09-2021 End: 11-09-2021 ambulatory Wiley Mcmanus Other [employer] Other Start: 11-09-2021 Office outpatient vi sit 40 minutes Wiley Mcmanus [facility] Start: 10-14-2021 Office outpatient vi sit 25 minutes Gena Kirby Work Phone: [facility] [employer] 250 DO Work Phone: Procedures Date Procedure Procedure Detail Performing Clinician Start: 09-13-2024 [facility] URINALYSIS, WITH MICROSCOPIC Generi c External Data Provider Start: 09-13-2024 Urnls dip stick/tablet reagent auto microscopy Elin Ballard FABRIC AND TEXTILE 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 - CLEANING LABORER Work Phone: Start: 07-11-2024 Mammography Aurea GAVIRIA Work Phone: Start: 05-08-2024 Diagnostic radiography of abdomen Gena Fleming linda Work Phone: Start: 05-07-2024 SARS-COV-2 AG* Gena Camachodia BAR WAITER/WAITRESS Work Phone: Start: 04-26-2024 ALL THYROXINE (T4) FREE Generic External Data Provider Start: 12-20-2023 Mammography Gena Camachodia BAR WAITER/WAITRESS Work Phone: Start: 12-14-2023 End: 12-14-2023 Diagnostic radiography of abdomen Gena Fleming linda Work Phone: Start: 11-22-2023 Microscopic observation [Identifier] in Cervix by Cyto stain Aurea GAVIRIA Work Phone: Start: 11-22-2023 Cytp cerv/vag auto thin layer prep mnl screen Aurea GAVIRIA Work Phone: Start: 10-14-2023 COVID/Influenza PCR (POC) Gena Kirby Work Phone: Start: 08-08-2023 End: 08-08-2023 Colonoscopy Gena Kirby Work Phone: Start: 12-13-2022 Urnls dip stick/tablet reagent auto microscopy Elin Ballard FABRIC AND TEXTILE 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 - CLEANING LABORER Work Phone: Start: 08-12-2022 Urnls dip stick/tablet [...] Urine test visual color cmprsn meths Saleem Mosesmarilin RITCHIE Work Phone: Start: 07-14-2022 Glucose blood reagent strip Rikki frey DMD, MD Work Phone: Start: 07-08-2022 Blood typing serologic abo Gena DEL CASTILLO RN-CLEANING LABORER Work Phone: Start: 07-08-2022 Blood count complete automated Gena De La Garza pedro FABRIC AND TEXTILE 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 Work Phone: Start: 07-08-2022 Blood typing, ABO, Rho(D) and RBC antibody screening Gena Yusef FABRIC AND TEXTILE 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 Work Phone: Start: 01-11-2022 Laryngoscopy flexible diagnostic Yi Moreno MD Work Phone: Start: 01-05-2022 Fluoroscopy during operation Bertha john MD Work Phone: Start: 01-05-2022 Urine test visual color cmprsn meths Majo Rodrigues FABRIC AND TEXTILE 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 - [facility] Start: 12-30-2021 Basic metabolic panel calcium total Jerel D Dorkoskie PA-C Work Phone: Start: 12-22-2021 Radiologic exam abdomen 1 view Jerel D Do rkoskie PA-C Work Phone: Start: 10-25-2017 Microscopic observation [Identifier] in Cervix by Cyto stain Gena Kirby BAR WAITER/WAITRESS Work Phone: section Gena spencerolz Work Phone: Cholecystectomy Gena keys Work Phone: Dental surgical procedure Cassandra Kirby Work Phone: History of tonsillectomy History of tonsillectomy Gena Kirby Work Phone: Lithotripsy Gena roberts Work Phone: Plan of Treatment Date Care Activity Detail Author Start: 08-08-2033 Screening for malignant neoplasm of colon [facility] Start: 11-21-2028 Screening for malignant neoplasm of cervix [facility] Start: 04-13-2028 Screening for malignant neoplasm of cervix [facility] Start: 07-11-2025 Screening for malignant neoplasm of breast Mammogram [facility] Start: 04-17-2025 End: 04-17-2025 Patient encounter procedure 04/17/2025 2:50 PM EDT Office Visit [facility] [address] [place] [address] Rhina Amor MD [address] [place] [address] [facility] Start: 2025 Shingles (RZV) Vaccine (1 of 2) Shingles (RZV) Vaccine (1 of 2) [facility] Start: 04-08-2025 End: 04-08-2025 Patient encounter procedure 04/08/2025 2:50 PM EDT Office Visit [facility] [address] [place] [address] Rhina Amor MD [address] [place] [address] [facility] Start: 12-19-2024 Screening for malignant neoplasm of breast Mammogram [facility] Start: 11-22-2024 End: 11-22-2024 Patient encounter procedure 11/22/2024 3:30 PM EDT Office Visit [facility] [address] [place] [address] [place] [address] Aurea Marc PA [address] [place] [address] [facility] Start: 10-29-2024 End: 10-29-2024 Patient encounter procedure 10/29/2024 4:00 PM EDT Office Visit [facility] Part [address] [place] [address] Bertha Hirsch MD [address] [facility], [address] [place] [address] 6 month KUB [facility] Comment on above: 6 month KUB Start: 09-24-2024 End: 09-24-2024 Patient encounter procedure 09/24/2024 3:20 PM EST Office Visit [facility] [address] [place] [phone] Oswald Harrington, [address] [place] [address] [facility] Start: 08-06-2024 End: 08-06-2025 US for US PELVIS-TRANSVAG IF INDICATED Imaging Routine Complex ovarian cyst Expected: 08/06/2024 (Approximate), Expires: 08/06/2025 [facility] Work Phone: Comment on above: Expected: 08/06/2024 (Approximate), Expi res: 08/06/2025 Start: 06-19-2024 End: 06-19-2024 Patient encounter procedure 06/19/2024 3:20 PM EDT Office Visit [facility] [address] [place] [phone] Gena Kirby, PHILLY [address] [place] [phone] Hypokalemia (Primary Dx) [facility] Comment on above: Hypokalemia (Primary Dx) Start: 06-19-2024 End: 06-19-2025 Basic metabolic 1998 panel - Serum or Plasma Basic metabolic panel Lab Routine Hypokalemia Expected: 06/19/2024 (Approximate), Expires: 06/19/2025 [facility] Work Phone: Comment on above: Expected: 06/19/2024 (Approximate), Expi res: 06/19/2025 Start: 05-21-2024 End: 05-21-2024 Patient encounter procedure 05/21/2024 3:00 PM EDT Office Visit [facility] [address] [place] [address] Gena Kirby, PHILLY [address] [place] [phone] [facility] Start: 05-14-2024 End: 05-14-2024 Patient encounter procedure 05/14/2024 3:00 PM EDT Office Visit [facility] [address] [place] [address] Gena Kirby, BAR WAITER/WAITRESS [address] [place] [phone] [facility] Start: 05-02-2024 End: 05-02-2024 Patient encounter procedure 05/02/2024 3:20 PM EDT Office Visit [facility] [address] [place] [address] Gena Kirby, BAR WAITER/WAITRESS [address] [place] [phone] Arrived [facility] Comment on above: Arrived Start: 04-22-2024 COVID-19 Vaccine () COVID-19 Vaccine () [facility] Start: 04-22-2024 COVID-19 Vaccine ( season) COVID-19 Vaccine ( season) [facility] Start: 04-22-2024 Influenza vaccination Influenza Vaccine (#[facility]) [facility] Start: 03-22-2024 Influenza vaccination Flu vaccine (#1) [facility] Start: 08-08-2023 [facility] Start: 03-22-2023 Influenza vaccination Flu vaccine (Season Ended) [facility] Start: 02-21-2023 End: 02-21-2023 Patient encounter procedure 02/21/2023 [facility] Start: 12-21-2022 Cholesterol [Mass/volume] in Serum or Plasma Cholesterol [facility] Start: 12-21-2022 Lipid panel Cholesterol [facility] Start: 10-25-2022 Screening for malignant neoplasm of cervix Pap Smear [facility] Start: 10-19-2022 End: 10-19-2022 Patient encounter procedure 10/19/2022 Office Visit Ent-Otolaryngology Yi Moreno MD [address] [place] [address] [facility] [place] [facility] (ENT) Start: 08-13-2022 End: 08-13-2022 Patient encounter procedure 08/13/2022 Office Visit Or al Surgery Rikki Rodrigues DMD, MD [address] [place] [address] [facility] Oral Surgery Start: 07-30-2022 End: 07-30-2022 Patient encounter procedure 07/30/2022 Office Visit Or al Surgery Rikki Rodrigues DMD, MD [address] [place] [address] [facility] Oral Surgery Start: 07-23-2022 End: 07-23-2022 Telemedicine consultation with patient 07/23/2022 Telemedicine Oral Surgery Rikki Rodrigues DMD, MD [address] [place] [phone] [facility] Oral Surgery Start: 07-14-2022 End: 07-14-2022 Admission to same day surgery center 07/14/2022 Surgery General Surgery Rikki Rodrigues DMD, MD [address] [place] [id number] [facility] OSTEOTOM[facility] Comment on above: LEFORTE [...] Encounter General Surgery Rikki Rodrigues DMD, MD [address] [place] [address] [facility] Start: 07-14-2022 End: 07-14-2022 Admission to same day surgery center 07/14/2022 Surgery General Surgery Rikki Rodrigues DMD, MD [address] [place] [address] [facility] I OSTEOTOMY [facility] Comment on above: [facility] I OSTEOTOMY Start: 07-14-2022 End: 07-14-2022 Anesthesia consultation 07/14/2022 Anesthesia Event General Surgery Ki Atwood MD [address] [place] [phone] [facility] Start: 07-14-2022 End: 07-14-2022 [...] Encounter General Surgery Rikki Rodrigues DMD, MD [address] [place] [phone] [facility] Start: 07-08-2022 End: 07-08-2022 Patient encounter procedure 07/08/2022 Office Visit Presurgical Evaluation Gena Holbrook APRN-CLEANING LABORER [address] [place] [address] [facility] Pre Surgical Evaluation Start: 07-06-2022 End: 07-06-2022 Patient encounter procedure 07/06/2022 Office Visit Presurgical Evaluation Pierce Ramos, FABRIC AND TEXTILE 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 [address] [place] [address] Preop testing (Primary Dx) [facility] Pre-Surgical Evaluation Comment on above: Preop testing (Primary Dx) Start: 06-15-2022 End: 06-15-2022 Patient encounter procedure 06/15/2022 Office Visit Ent-Otolaryngology Yi Moreno MD [address] [place] [address] [facility] Otolaryngology (ENT) Start: 06-03-2022 End: 06-03-2022 Admission to same day surgery center 06/03/2022 Surgery Ambulatory Surgery Yi Moreno MD [address] [place] [address] BRONCHOSCOPY, FLEXIBLE, DRUG INDUCED SLEEP ENDOSCOPY (DISE) [facility] PACU Comment on above: BRONCHOSCOPY, FLEXIBLE, DRUG INDUCED SLE EP ENDOSCOPY (DISE) Start: 06-03-2022 End: 06-03-2022 BRONCHOSCOPY, FLEXIBLE, DRUG INDUCED SLEEP ENDOSCOPY (DISE) BRONCHOSCOPY, FLEXIBLE, DRUG INDUCED SLEEP ENDOSCOPY (DISE) Routine scheduled DIONNE (obstructive sleep apnea) 06/03/2022 8:39 AM EDT PACU Procedure Rooms Start: 06-03-2022 Subsequent hospital visit by physician [facility] PACU Comment on above: Encounter for laboratory testing for sev ere acute respiratory syndrome coronavirus 2 (SARS-CoV-2) (Primary Dx) Start: 05-28-2022 End: 05-28-2022 Nursing evaluation of patient and report 05/28/2022 Nurse Visit Presurgical Evaluation [facility] Pre Surgical Evaluation Start: 05-22-2022 Influenza vaccination Influenza Vaccine (#1) [facility] Start: 04-22-2022 Influenza vaccination [facility] Start: 03-29-2022 End: 03-29-2022 Telemedicine consultation with patient 03/29/2022 Telemedicine Ent-Otolaryngology Yi Moreno MD [address] [place] [address] [facility] (ENT) Start: 03-24-2022 FUV, Provider: Eileen Nichols, Status: Pen, Time: 3:50 PM FUV, Provider: Eileen Nichols, Status: Pen, Time: 3:50 PM [place] [address] DO Work Phone: Start: 03-22-2022 Influenza vaccination [facility] Start: 02-25-2022 End: 02-25-2022 Admission to same day surgery center 02/25/2022 Surgery General Surgery Yi Moreno MD [address] [place] [address] UVULOPALATOPHARYNGOPLASTY [facility] Comment on above: UVULOPALATOPHARYNGOPLASTY Start: 02-25-2022 Subsequent hospital visit by physician [facility] Comment on above: Encounter for laboratory testing for sev ere acute respiratory syndrome coronavirus 2 (SARS-CoV-2) (Primary Dx) Start: 02-25-2022 End: 02-25-2022 UVULOPALATOPHARYNGOPLASTY [facility] Start: 02-25-2022 End: 02-25-2022 Admission to same day surgery center 02/25/2022 Surgery General Surgery Yi Moreno MD [address] [place] [address] UVULOPALATOPHARYNGOPLASTY [facility] Comment on above: UVULOPALATOPHARYNGOPLASTY Start: 02-25-2022 Subsequent hospital visit by physician 02/25/2022 Hospital Encounter General Surgery Yi Moreno MD [address] [place] [address] Encounter for laboratory testing for severe acute respiratory syndrome coronavirus 2 (SARS-CoV-2) (Primary Dx) [facility] Comment on above: Encounter for laboratory testing for sev ere acute respiratory syndrome coronavirus 2 (SARS-CoV-2) (Primary Dx) Start: 02-25-2022 End: 02-25-2022 UVULOPALATOPHARYNGOPLASTY UVULOPALATOPHARYNGOPLASTY Routine scheduled DIONNE (obstructive sleep apnea) 02/25/2022 9:20 AM EDT [facility] Start: 02-23-2022 End: 02-23-2022 Patient encounter procedure 02/23/2022 Office Visit Urology Elin Ballard FABRIC AND TEXTILE 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 - CLEANING LABORER [address] [place] [address] [place] [address] [facility] Start: 02-16-2022 End: 02-16-2022 Patient encounter procedure 02/16/2022 Office Visit Presurgical Evaluation Pierce Ramos APRN-BRIAN [address] [place] [address] [facility] Pre-Surgical Evaluation Start: 01-08-2022 End: 01-08-2022 Patient encounter procedure 01/08/2022 Office Visit Urology Elin Ballard, FABRIC AND TEXTILE 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 - CLEANING LABORER [address] [place] [address] [facility] Start: 01-05-2022 End: 01-05-2022 Cysto/uretero w/lithotripsy &indwell stent insrt CYSTOSCOPY URETEROSCOPY [facility] 01/05/2022 2:57 PM EDT [facility] Start: 12-06-2021 COVID-19 Vaccine (3 - Booster for Pfizer series) COVID-19 Vaccine (3 - Booster for Pfizer series) [facility] Start: 12-01-2021 NURSEVST, Provider: [employer] RISK ANALYST 1,[id number], Status: Pen, Time: 3:15 PM NURSEVST, Provider: [employer] RISK ANALYST 1,[id number], Status: Pen, Time: 3:15 PM [facility] 250 DO Work Phone: Start: 09-02-2021 COVID-19 Vaccine (3 - Booster for Pfizer series) COVID-19 Vaccine (3 - Booster for Pfizer series) [facility] Start: 2020 Cholesterol [Mass/volume] in Serum or Plasma Cholesterol [facility] Start: 2020 Screening for malignant neoplasm of colon [facility] Start: 2015 Lipid panel Lipids [facility] Start: 2015 Screening for malignant neoplasm of breast [facility] Start: 2010 Diabetes screen Diabetes screen [facility] Start: 2005 Screening for malignant neoplasm of cervix [facility] Start: 1996 Screening for malignant neoplasm of cervix Pap smear [facility] Start: 1994 DTaP/Tdap/Td vaccine (1 - Tdap) DTaP/Tdap/Td vaccine (1 - Tdap) [facility] Start: 1994 Hepatitis A (HAV) Vaccine (optional start 19+ years) Hepatitis A (HAV) Vaccine (optional start 19+ years) [facility] Start: 1994 Hepatitis B vaccination Hepatitis B (HBV) Vaccine (1 of 3 - 19+ 3-dose series) [facility] Start: 1994 Hepatitis B vaccine (1 of 3 - 19+ 3-dose series) Hepatitis B vaccine (1 of 3 - 19+ 3-dose series) [facility] [employer] [facility] Start: 1993 Creatinine measurement Creatinine [facility] Start: 1993 Hepatitis C screening [facility] Start: 1993 Potassium [Moles/volume] in Serum or Plasma Potassium [facility] Start: 1993 Tetanus + diphtheria + acellular pertussis vaccine (product) Tdap Booster [facility] Start: 1990 HIV screening [facility] Start: 1987 Depression Monitoring Depression Monitoring [facility] Start: 1985 [facility] Start: 1975 Screening for malignant neoplasm of colon [facility] Assay of magnesium MAGNESIUM Lab STAT Daily until discontinued starting 07/16/2022, 2 [facility] Comment on above: Daily until discontinued starting 2021, 2 completed Assay of phosphorus inorganic PH OSPHORUS Lab STAT Daily until discontinued starting 07/16/2022, 2 completed [facility] Comment on above: Daily until discontinued starting 2021, 2 completed Basic metabolic 2000 panel - Serum or Plasma BASIC METABOLIC PANEL Lab STAT Daily until discontinued starting 07/16/2022, 2 completed [facility] Comment on above: Daily until discontinued starting 2021, 2 completed BRONCHOSCOPY, FLEXIB LE, DRUG INDUCED SLEEP ENDOSCOPY (DISE) BRONCHOSCOPY, FLEXIBLE, DRUG INDUCED SLEEP ENDOSCOPY (DISE) Routine scheduled DIONNE (obstructive sleep apnea) [facility] Calprotectin [Mass/m ass] in [facility] CBC panel - Blood by Automated count COMPLETE BLOOD COUNT Lab STAT Daily until discontinued starting 07/16/2022, 2 completed [employer] Work Phone: Comment on above: Daily until discontinued starting 2021, 2 completed End: 08-12-2022 Culture, Urine [facility] Work Phone: Comment on above: 1 Occurrences starting 08/12/2022 until 08/12/2022 End: 12-13-2022 Culture, Urine [facility] Work Phone: Comment on above: 1 Occurrences starting 12/13/2022 until 12/13/2022 End: 09-13-2024 Culture, Urine [facility] Comment on above: 1 Occurrences starting 09/13/2024 until 09/13/2024 Diagnostic radiograp hy of abdomen [facility] Diagnostic radiograp hy of abdomen [facility] End: 07-14-2022 Ecg routine ecg w/least 12 lds trcg only w/o i&r EKG 12 LEAD - PERFORM MUSE Routine Once for 1 Occurrences starting 07/14/2022 until 07/14/2022 [employer] Work Phone: Comment on above: Once for 1 Occurrences starting 07/14/20 until 07/14/2022 Elastase.pancreatic [Mass/mass] in Stool [facility] Endomysial antibody IgA level [facility] Gliadin peptide IgA Ab [Units/volume] in Serum [facility] Gliadin peptide IgG Ab [Units/volume] in Serum [facility] HIV 1+2 Ab+HIV1 p24 Ag [Presence] in Serum or Plasma by Immunoassay [facility] IgA [Mass/volume] in Serum or Plasma [facility] End: 01-05-2022 INITIATE PACU OXYGEN THERAPY PROTOCOL Initiate PACU Oxygen Therapy Protocol Respiratory Care Routine Continuous until discontinued starting 01/05/2022 [facility] Comment on above: Continuous until discontinued starting 0 01/05/2022 Oxygen therapy [[facility] Data Set] Initiate Oxygen Therapy Protocol Respiratory Care Routine As Needed until discontinued starting 01/05/2022 [facility] Work Phone: Comment on above: As Needed until discontinued starting End: 02-25-2022 Palatopharyngoplasty PALATOPHARYNGOPLASTY Procedures Routine One time for 1 Occurrences starting 02/25/2022 until 02/25/2022 [facility] Comment on above: One time for 1 Occurrences starting 02/2022 until 02/25/2022 Patient Education [facility] Work Phone: Rcnstj midface lefor t i 1 piece w/o bone graft RECONSTRUCTION MIDFACE, LEFORT I; 1 PIECE, W/O BONE GRAFT Procedures Routine DIONNE (obstructive sleep apnea) Ordered: 07/14/2022 [employer] Work Phone: Comment on above: Ordered: 07/14/2022 Rcnstj mndblr rami&/ bdy sgtl splt w/int rgd fi RECONSTRUCTION, MANDIBULAR RAMI &/OR BODY, SAGITTAL SPLIT; W/INT RIGID FIXATION Procedures Routine DIONNE (obstructive sleep apnea) Ordered: 07/14/2022 [facility] Comment on above: Ordered: 07/14/2022 End: 03-17-2022 SARS-CoV-2 (COVID-19) RNA [Presence] in Unspecified specimen by JOHNNIE with probe detection NOVEL CORONAVIRUS (COVID-19) Lab STAT Encounter for laboratory testing for severe acute respiratory syndrome coronavirus 2 (SARS-CoV-2) 1 Occurrences starting 02/15/2022 until 03/17/2022 [employer] Work Phone: Comment on above: 1 Occurrences starting 02/15/2022 until 03/17/2022 Surgical pathology procedure [facility] [employer] Work Phone: Comment on above: Release Upon Ordering for 1 Occurrences starting 02/25/2022, 1 completed Tissue transglutamin ase IgA Ab [Units/volume] in Serum [facility] Tissue transglutamin ase IgG Ab [Units/volume] in Serum [facility] UVULOPALATOPHARYNGOPLASTY UVULOP ALATOPHARYNGOPLASTY Routine scheduled DIONNE (obstructive sleep apnea) [facility] Immunizations Immunization Date Immunization Notes Care Provider Fa [facility] 07-08-2021 Pfizer-BioNTech COVID-19 Vacc 30 MCG/0.3ML Intramuscular Suspension Gena Kirby Work Phone: [facility] 06-17-2021 Pfizer-BioNTech COVID-19 Vacc 30 MCG/0.3ML Intramuscular Suspension Gena Kirby Work Phone: [facility] 250 DO Work Phone: 11-06-2013 influenza virus vaccine, whole virus Gena Jang [place] Work Phone: -[facility] 250 DO Work Phone: Payers Date Payer Category Payer Unknown [id number] 2023 Unknown [id number] 2022 Private Health Insurance [employer] [id number] 2022 Self-pay [id number] 2021 Commercial Indemnity [id number] 2021 Unknown 1975 Unknown [id number] 2.16.840.1.083317.3.579.2.59 3 1975 Unknown [id number] 2.16.840.1.221059.3.579.2.59 3 1975 Unknown [id number] 2.16.840.1.203024.3.579.2.59 3 1975 Unknown [id number] 2.16.840.1.297213.3.579.2.59 3 1975 Unknown [id number] 2.16.840.1.776749.3.579.2.59 3 1975 Unknown [id number] 2.16.840.1.486261.3.579.2.59 3 1975 Unknown [id number] 2.16.840.1.877527.3.579.2.59 3 1975 Unknown [id number] 2.16.840.1.855551.3.579.2.59 3 1975 Unknown [id number] 2.16.840.1.671725.3.579.2.59 3 1975 Unknown [id number] 2.16.840.1.555202.3.579.2.59 3 1975 Unknown [id number] 2.16.840.1.728677.3.579.2.59 3 1975 Unknown [id number] 2.16.840.1.050963.3.579.2.59 3 1975 Unknown [id number] 2.16.840.1.750498.3.579.2.59 3 1975 Unknown [id number] 2.16.840.1.290974.3.579.2.59 3 1975 Unknown [id number] 2.16.840.1.224594.3.579.2.73 2 1975 Unknown [id number] 2.16.840.1.716543.3.579.2.73 2 1975 Unknown [id number] 2.16.840.1.241058.3.579.2.73 2 1975 Unknown [id number] 2.16.840.1.685620.3.579.2.73 2 1975 Unknown [id number] 2.16.840.1.485515.3.579.2.73 2 1975 Unknown [id number] 2.16.840.1.302314.3.579.2.73 2 1975 Unknown [id number] 2.16.840.1.027253.3.579.2.73 2 1975 Unknown [id number] 2.16.840.1.337149.3.579.2.73 2 1975 Unknown [id number] 2.16.840.1.650970.3.579.2.73 2 1975 Unknown [id number] 2.16.840.1.607802.3.579.2.73 2 1975 Unknown [id number] 2.16.840.1.825633.3.579.2.73 2 1975 Unknown [id number] 2.16.840.1.860877.3.579.2.73 2 1975 Unknown [id number] 2.16.840.1.761772.3.579.2.73 2 1975 Unknown [id number] 2.16.840.1.200958.3.579.2.73 2 1975 Unknown [id number] 2.16.840.1.133473.3.579.2.59 8 1975 Unknown [id number] 2.16.840.1.300907.3.579.2.12 86 1975 Unknown [id number] 2.16.840.1.148315.3.579.2.12 86 1975 Unknown [id number] 2.16.840.1.780641.3.579.2.12 86 1975 Unknown [id number] 2.16.840.1.887503.3.579.2.12 86 1975 Unknown [id number] 2.16.840.1.203500.3.579.2.12 86 1975 Unknown [id number] 2.16.840.1.783651.3.579.2.12 86 1975 Unknown [id number] 2.16.840.1.660643.3.579.2.12 59 1975 Unknown [id number] 2.16.840.1.496410.3.579.2.12 59 1975 Unknown [id number] 2.16.840.1.670920.3.579.2.12 59 1975 Unknown [id number] 2.16.840.1.840509.3.579.2.12 59 1975 Unknown [id number] 2.16.840.1.894505.3.579.2.12 59 1975 Unknown [id number] 2.16.840.1.590143.3.579.2.12 59 1975 Unknown [id number] 2.16.840.1.731488.3.579.2.12 59 1975 Unknown [id number] 2.16.840.1.727949.3.579.2.12 59 1975 Unknown [id number] 2.16.840.1.679559.3.579.2.17 3 1975 Unknown [id number] 3 1959 Unknown [id number] 1959 Unknown [id number] 3 1959 Unknown [id number] Medicaid [employer] [id number] [facility] [id number] Unknown [id number] 1 Unknown [id number] 1 Unknown [id number] 1 Unknown [id number] 1 Unknown [id number] 1 Unknown [id number] 1 Social History Date Type Detail Facility Start: 02-16-2022 End: 04-30-2024 Occasional alcohol use Occasional alcohol use [facility] Comment on above: 2 bottles of pop alonso ly.; Quit 2020; Start: 11-30-2021 End: 09-15-2023 Tobacco smoking status VTIS Ex-smoker [employer] Phone: Start: 01-21-2016 End: 01-20-2021 History of tobacco use Cigarette Smoker [employer] Phone: Start: 11-30-2021 End: 09-15-2023 Tobacco use and exposure Smokeless tobacco non-user [employer] Phone: Start: 12-22-2021 End: 04-30-2024 Alcohol intake Lifetime non-drinker (finding) [employer] Phone: Start: 11-30-2021 Tobacco Comment occasional smo ker for 2 years, she quit over a year now [employer] Phone: Start: 1975 Sex Assigned At Not on file [employer] Phone: Start: 01-05-2022 End: 12-13-2022 Tobacco Comment occasional smoker for 2 years, she quit in 2020 [employer] Phone: Start: 12-26-2021 End: 01-05-2022 Exposure to SARS-CoV-2 (event) Not sure [employer] Phone: Tobacco smoking status [facility] Tobacco smoking consumption unknown [facility] Start: 07-20-2023 End: 04-30-2024 Sex Assigned At [facility] Start: 02-16-2022 End: 10-19-2022 Alcohol intake Ex-drinker (finding) [facility] Start: 01-21-2016 End: 01-20-2021 History of tobacco use Current smoker [facility] Start: 1975 Sex Assigned At Female F [facility] Start: 10-18-2022 History SDOH Social Connections Phone 4 [facility] Start: 10-18-2022 History SDOH Social Connections Get Together 2 [facility] Start: 10-18-2022 History SDOH Social Connections Uatsdin 1 [facility] Start: 10-18-2022 History SDOH Social [...] Sexual orientation Heterosexual (corey vargas) [facility] How hard is it for you to pay for the very basics like food, housing, medical care, and heating Not very hard [facility] Start: 12-25-2021 End: 09-10-2024 Sex Female (finding) [facility] How often to you hav e a drink containing alcohol? Monthly or less [facility] How many standard drinks containing alcohol do you have on a typical day? 1 or 2 [facility] Do you feel stress - tense, restless, nervous, or anxious, or unable to sleep at night because your mind is troubled all the time - these days [OSQ] Very much [facility] NEGATED: Highlighted rowStart: NINF History of tobacco use Passive smoker [facility] Medical Equipment Procedure Code Equipment Code Equipment Origin al Text Equipment Identifier Dates Stent Uret 6 Frx 24 Cm Firm Monofilament Tria - [id number] Start: 01-05-2022 Plate Bone 4mml [id number] Ea1 [id number] - [id number] Start: 07-14-2022 Screw 2.0 X 10mm Self-Tapping Pc1 50 - [id number] Start: 07-14-2022 Pin Cross 2.0 X 5mm Pc1 50 - [id number] Start: 07-14-2022 Nightmute 8mm Screw [id number] Start: 07-14-2022 Plate 11 Hole 4m m Rt Pc1 [id number] - [id number] Start: 07-14-2022 Plate 6hole 12mm Bar Curved Pc1 [id number] - [id number] Start: 07-14-2022 Scr Bn 1.7mm 4mm St Ax Stab Ea1 [id number] - [id number] Start: 07-14-2022 Scr Bn 1.9mm 5mm Crnmxf Er Ax Ea1 [id number] - [id number] Start: 07-14-2022 Goals Date Patient Goal Desired Activity /State Functional Status Date Assessment Result Facility 10-14-2021 PHQ-9 [id number] Moder ately Severe (15-19) -[facility]ly [facility]-Karla 250 DO Work Phone: Clinical Notes 11-09-2021 to 09-04-2024 Telephone Encounter - Americo Dewey - 09/04/2024 1:16 PM ESTTelephone Encounter - Americo Dewey - 09/04/2024 1:16 PM EVERETTE Nelson - 08/06/2024 3:40 PM EST Note Date & Type Note Facility 09-04-2024 Telephone encount er Note Pt states levothyroxine is going to be discontinued and pt needs something else. Please call [employer] customer service is [phone]. I think this could be a brand issue, but the patient isn't sure. Thanks! [facility] 09-04-2024 Miscellaneous Notes Formattin g of this note might be different from the original. Pt states levothyroxine is going to be discontinued and pt needs something else. Please call [employer] order customer service is [phone]. I think this could be a brand issue, but the patient isn't sure. Thanks! documented in this encounter [facility] 08-06-2024 History of Presen t illness Narrative Reason for Appointment: Patient ID: Mary Hewitt is a 49 y.o. female who presents for Menopause Patient presents today for Follow up appointment to discuss results. MEDICATIONS Current Outpatient Medications Medication Instructions alosetron (LOTRONEX) 1 mg, 2 times daily atenolol (TENORMIN) 100 mg, Oral, Daily atorvastatin (LIPITOR) 20 mg, Oral, Every evening dicyclomine (Bentyl) 10 MG capsule 1 capsule, Oral, 3 times daily Effexor XR 75 mg, Daily KlonoPIN 1 mg, 2 times daily PRN levothyroxine (SYNTHROID, LEVOXYL) 75 mcg, Oral, Daily before breakfast loperamide (IMODIUM) 2 mg, Every 6 hours PRN magnesium oxide (MAG-OX) 400 mg, Oral, Daily multivitamin with minerals (Centrum) 9-200 mg-mcg tablet split tablet 1 tablet, Daily QUEtiapine (SEROQUEL) 100 mg, Nightly venlafaxine XR (Effexor XR) 150 MG 24 hr capsule 1 capsule, Daily VITAMIN D, CHOLECALCIFEROL, PO Take by mouth. ALLERGIES No Known Allergies PROBLEMS Active Ambulatory Problems Diagnosis Date Noted Mixed hyperlipidemia ([facility]) 08/18/2023 Hypokalemia 08/24/2023 Hypertension ([facility]) 08/24/2023 Chronic diarrhea 08/24/2023 Anxiety state ([facility]) 10/13/2023 Bipolar II disorder ([facility]) 01/15/2022 Generalized anxiety disorder with panic attacks ([facility]) 01/15/2022 Depression with anxiety 10/13/2023 History of kidney stones 10/13/2023 DIONNE (obstructive sleep apnea) 01/15/2022 Thyroiditis ([facility]) 10/13/2023 Other specified hypothyroidism ([facility]) 10/19/2023 Abnormality of left breast on screening mammogram 12/07/2023 Microscopic colitis, unspecified ([facility]) 08/08/2023 Overactive bladder 01/25/2024 Bloating 01/25/2024 Overweight (BMI 25.0-29.9) 04/17/2024 Herpes zoster without complication 04/17/2024 Irritable bowel syndrome with diarrhea 06/19/2024 Resolved Ambulatory Problems Diagnosis Date Noted Alternating constipation and diarrhea 01/25/2024 Weight loss, unintentional 01/25/2024 Pre-operative clearance 03/26/2024 Shingles 04/17/2024 Acute URI 05/02/2024 Past Medical History: Diagnosis Date Abnormal appearance of cervix Abnormal mammogram of both breasts Acute cystitis Allergies Amenorrhea Anxiety At low risk for fall Condyloma Contraception management Depression (CMS/[facility]) Elevated prolactin level Elevated total protein Enlarged LA (left atrium) Enlarged LA (left atrium) History of migraine headaches HPV (human papilloma virus) infection Hyperlipidemia (CMS/HCC) Hypertriglyceridemia (CMS/HCC) Hypertriglyceridemia (CMS/[facility]) Kidney stones Menopause Menopause Migraine headache ([facility]/HCC) Seasonal allergies Sleep apnea Tobacco user HISTORY PAST MEDICAL HISTORY SOCIAL HISTORY Past Medical History: Diagnosis Date Abnormal [...] Sleep apnea Thyroiditis (CMS/HCC) 10/13/2023 Tobacco user Social History Tobacco Use Smoking status: Former Types: Cigarettes Passive exposure: Never Smokeless tobacco: Not on file Vaping Use Vaping status: Never Used Substance Use Topics Alcohol use: Never Comment: Caffeine: > 4 cups/day Drug use: Never FAMILY HISTORY Family History Problem Relation Name Age of Onset Cancer Mother Mental illness Mother Cancer Father Heart disease Father Bipolar disorder Sister No Known Problems Sister No Known Problems Sister No Known Problems Daughter SURGICAL HISTORY Past Surgical History: Procedure Laterality Date SECTION, LOW TRANSVERSE CYSTOSCOPY 01/05/2022 Cystoscopy, Left Ureteroscopy, Laser Lithotripsy and left Ureteral Stent LITHOTRIPSY MT LAP,CHOLECYSTECTOMY 01/2010 SALPINGECTOMY 11/12/2022 REVIEW OF SYSTEMS Review of Systems: Review of Systems Constitutional: Negative. HENT: Negative. Eyes: Negative. Respiratory: Negative. Cardiovascular: Negative. Gastrointestinal: Negative. Genitourinary: Negative. Musculoskeletal: Negative. Skin: Negative. Neurological: Negative. All other systems reviewed and are negative. Hematological: Negative. Endocrine: Negative. Allergic/Immunologic: Negative. OBJECTIVE Objective: Physical Exam Constitutional: Appearance: Normal appearance. She is normal weight. HENT: Head: Normocephalic. Cardiovascular: Rate and Rhythm: Normal rate. Pulses: Normal pulses. Pulmonary: Effort: Pulmonary effort is normal. Breath sounds: Normal breath sounds. Abdominal: Palpations: Abdomen is soft. Musculoskeletal: General: Normal range of motion. Neurological: General: No focal deficit present. Mental Status: She is alert and oriented to person, place, and time. Psychiatric: Mood and Affect: Mood normal. Behavior: Behavior normal. Thought Content: Thought content normal. Judgment: Judgment normal. Vitals and nursing note reviewed. Vitals: Estimated body mass index is 26.3 kg/m as calculated from the following: Height as of 06/19/24: 5' 2 . Weight as of this encounter: 143 lb 12.8 oz. BP: 120/80 Patient's last menstrual period was 07/07/2024. ASSESSMENT & PLAN ICD-10-CM 1. Complex ovarian cyst N83.299 US PELVIS-TRANSVAG IF INDICATED 2. Night sweats R61 magnesium oxide (Mag-Ox) 400 MG tablet Patient presents for follow up for US due to pelvic pain. US results discussed and patient will have repeat in 6 weeks. Pt also states having night sweats with irregular periods. We will try magnesium oxide for her symptoms. Pt states she stopped using metformin due to diarrhea and having bowel issue. Pt recently had inspire placed for sleep apnea and turned on this week. Documented by EVERETTE Ya on behalf of: EVERETTE Ya documented in this encounter [facility] 07-13-2024 Evaluation note Diagnosis Onset Date Resolution Irritable bowel syndrome with diarrhea acute July 13, 2024 1:59pm BMI 27.0-27.9,adult acute Decem 2023 11:34am Edentulous acute July 31, 2024 11:34am Encounter for adjustment and management of other implanted nervous system d acute July 31 11:34am Obstructive sleep apnea (adult) (pediatric) acute July 11:34am S/P placement of hypoglossal nerve stimulator acute July 31 11:34am BMI 27.0-27.9,adult acute Janua 2024 9:47am Edentulous acute September 04, 2024 9:47am Encounter for adjustment and management of other implanted nervous system d acute September 04 9:47am Obstructive sleep apnea (adult) (pediatric) acute August 9:47am S/P placement of hypoglossal nerve stimulator acute September 04 9:47am Irritable bowel syndrome with diarrhea acute August 232024 3:11pm [facility] Work Phone: 1(838) 873-534010-29-2024 History of Present illness Narrative* Gena Kirby NP - 06/19/2024 4:54 PM EDTAssociated Problem(s): Bipolar II disorder (CMS/[facility]) Continue with psych * Gena Kirby NP - 06/19/2024 4:54 PM EDTAssociated Problem(s): Generalized anxiety disorder with panic attacks (CMS/HCC) Continue with psych * Gena Kirby NP - 06/19/2024 4:53 PM EDTAssociated Problem(s): Hypokalemia Check basic * Gena Kirby NP - 06/19/2024 4:53 PM EDTAssociated Problem(s): Irritable bowel syndrome with diarrhea Continue with GI for treatment ?metformin have any influence?? May want to discuss, she was taking metformin for weight loss * Gena Kirby NP - 06/19/2024 4:53 PM EDTAssociated Problem(s): Microscopic colitis, unspecified (CMS/HCC) Continue with GI for treatment * Gena Kirby NP - 06/19/2024 4:52 PM EDTAssociated Problem(s): Hypertension (CMS/HCC) At goal no dose change Check basic * Gena Kirby NP - 06/19/2024 4:52 PM EDTAssociated Problem(s): DIONNE (obstructive sleep apnea) Cont with ENT for Inspire activation * LIDIA OLIVER - 06/19/2024 3:20 PM EDT Pt is still dealing with diarrhea with her GI dr. Pt has her now on 1mg twice daily of the alosetron hydrochloride since 06/11/24 No other changes * Gena Kofi, BAR WAITER/WAITRESS - 06/19/2024 3:20 PM EDT Images from the original note [...] Negative for abdominal pain, blood in stool, constipation,nausea and vomiting. Genitourinary: Negative for difficulty urinating, [...] Laser Lithotripsy and left Ureteral Stent LITHOTRIPSY MT LAP,CHOLECYSTECTOMY 01/2010 SALPINGECTOMY 11/12/2022 family history includes [...] metformin for weight loss [id number] Evaluation note* Diagnosis Onset Date Resolution Status Admit Date Fecal urgency acute May 3:37pm Irritable bowel syndrome wit h diarrhea acute June 11 3:37pm Microscopic colitis acute Octob er 2023 3:37pm Irritable bowel syndrome wit h diarrhea acute July 13, 2 024 1:59pm BMI 27.0-27.9,adult acute Decem 2023 11:34am Edentulous acute July 31, 2024 11:34am Encounter for adjustment and management of other implanted nervous system d acute July 31, 2024 11:34am Obstructive sleep apnea (adult) (pediatric) acute July 11:34am S/P placement of hypoglossal nerve stimulator acute July 31, 2024 11:34am [facility] Work Phone: 1(794) 899-665509-11-2024 History of Present illness Narrative* Gena Kirby NP - 05/02/2024 4:48 PM EDTAssociated Problem(s): Acute URI I would recommend at home covid test Did recently have shingles as well, so would be immune compromised She already spoke with BAR WAITER/WAITRESS at [facility], they sent her in augmentin and tessalon for sinusitis, which could also be going on, however I did ask she do at home covid test She missed work today, and she is asking for a work note, her employer requires her to completed sick leave for period of 8 days. Off 05/02/24-05/09/24 w RTW on 05/10/24 * LIDIA OLIVER - 05/02/2024 3:20 PM EDT Pt was on her dr on demand tre last night and talked to a BAR WAITER/WAITRESS who believes with her symptoms she mayhave a sinus infection. Pt states her daughter was sick last week and she is also getting over shingles. She felt that this was coming on over the weekend and has been taking 12hr mucinex Pt states she is very mucussy a lot of drainage and yellow phlegm when coughing. Nausea yesterday, headaches, chest pressure, dizzy, diarrhea, chills, body aches, runny nose and stuffy nose, sinus pressure, BAR WAITER/WAITRESS prescribed benzonates 200mg, nasal spray, amoxicillin 875mg potassium clavulanate 125mg tab Diagnosis of sinusitis * Gena Kirby, BAR WAITER/WAITRESS - 05/02/2024 3:20 PM EDT Images from the original note were not included. Isabelle Hewitt is a 49 y.o. female presents with chief complaint of No chief complaint on file. HPI: URI This is a new problem. The current episode started in the past 7 days. The problem has been gradually worsening. There has been no fever. Associated symptoms include chest pain, congestion, coughing,diarrhea, rhinorrhea and sinus pain. Pertinent negatives include no abdominal pain, dysuria, ear pain, headaches, joint pain, joint swelling, nausea, neck pain, plugged ear sensation, rash, sneezing,sore throat, swollen glands, vomiting or wheezing. Associated symptoms comments: Body aches, and chills Yellow green nasal secretions . She has tried nothing for the symptoms. The treatment provided no relief. SUBJECTIVE: MEDICATIONS: Current Outpatient Medications Medication Instructions amoxicillin-clavulanate (Augmentin) 875-125 MG tablet atenolol (TENORMIN) 100 mg, Oral, Daily atorvastatin (LIPITOR) 20 mg, Oral, Every evening azelastine (Astelin) 0.1 % nasal spray benzonatate (Tessalon) 200 MG capsule dicyclomine (Bentyl) 10 MG capsule 1 capsule, Oral, 3 times daily Effexor XR 75 mg, Oral, Daily ibuprofen 800 MG tablet Every 8 hours KlonoPIN 1 mg, Oral, 2 times daily PRN levothyroxine (SYNTHROID, LEVOXYL) 75 mcg, Oral, Daily before breakfast lidocaine (Xylocaine) 5 % ointment loperamide (IMODIUM) 2 mg, Oral, Every 6 [...] trospium (SANCTURA XR) 60 mg, Oral, Daily valACYclovir (Valtrex) 1 g tablet Every 8 hours venlafaxine XR (Effexor XR) 150 MG 24 hr capsule 1 capsule, Oral, Daily VITAMIN D, CHOLECALCIFEROL, PO Oral ALLERGIES: No Known Allergies REVIEW OF SYMPTOMS: Review of Systems Constitutional: Positive for fatigue. Negative for appetite change, chills and fever. HENT: Positive for congestion, rhinorrhea and sinus pain. Negative for ear pain, sneezing and sore throat. Eyes: Negative for pain, discharge, redness and visual disturbance. Respiratory: Positive for cough. Negative for shortness of breath and wheezing. Cardiovascular: Positive for chest pain. Negative for palpitations and leg swelling. Gastrointestinal: Positive for diarrhea. Negative for abdominal pain, blood in stool, constipation,nausea and vomiting. Genitourinary: Negative for difficulty urinating, dysuria and frequency. Musculoskeletal: Negative for arthralgias, back pain, joint pain, joint swelling, myalgias and neckpain. Skin: Negative for rash and wound. Neurological: [...] (CMS/HCC) Mixed hyperlipidemia (CMS/HCC) 08/18/2023 Seasonal allergies Sleep apnea Thyroiditis (CMS/HCC) 10/13/2023 Tobacco user Past Surgical History: Procedure Laterality Date SECTION, LOW TRANSVERSE CYSTOSCOPY 01/05/2022 Cystoscopy, Left Ureteroscopy, Laser Lithotripsy and left Ureteral Stent LITHOTRIPSY MT LAP,CHOLECYSTECTOMY 01/2010 SALPINGECTOMY 11/12/2022 family history includes Bipolar disorder in her sister; Cancer in her father and mother; Heart disease in her father; Mental illness in her mother; No Known Problems in her daughter, sister, and sister. OBJECTIVE: Visit Vitals BP 110/88 (BP Location: Left arm, Patient Position: Sitting, BP Cuff Size: Large adult) Pulse 79 Temp 98.5 F (Temporal) Resp 19 Ht 5' 2 Wt 144 lb 3.2 oz SpO2 94% BMI 26.37 kg/m OB Status Having periods Smoking Status Former BSA 1.69 m Physical Exam Vitals and nursing note reviewed. Constitutional: General: She is not in acute distress. Appearance: Normal appearance. She is not ill-appearing. HENT: Head: Normocephalic and atraumatic. Right Ear: Tympanic membrane, ear canal and external ear normal. Left Ear: Tympanic membrane, ear canal and external ear normal. Nose: Congestion and rhinorrhea present. Mouth/Throat: Mouth: Mucous membranes are moist. Pharynx: No oropharyngeal exudate or posterior oropharyngeal erythema. Eyes: Extraocular Movements: Extraocular movements intact. Conjunctiva/sclera: Conjunctivae normal. Cardiovascular: Rate and Rhythm: Normal rate and regular rhythm. Pulses: Normal pulses. Heart sounds: Normal heart sounds. Pulmonary: Effort: Pulmonary effort is normal. Breath sounds: Normal breath sounds. No wheezing, rhonchi or rales. Abdominal: General: Bowel sounds are normal. There [...] file. Problem List Items Addressed This Visit Overweight (BMI 25.0-29.9) Acute URI - Primary I would recommend at home covid test Did recently have shingles as well, so would be immune compromised She already spoke with [facility] WAITER/WAITRESS at [facility], they sent her in augmentin and tessalon for sinusitis, which could also be going on, however I did ask she do at home covid test She missed work today, and she is asking for a work note, her employer requires her to completed sick leave for period of 8 days. Off 05/02/24-05/09/24 w RTW on 05/10/24 documented in this [facility]08-27-2024 History of Present illness Narrative* Gena Kirby NP - 04/17/2024 12:53 PM EDTAssociated Problem(s): Herpes zoster without complication Finish anti virals, lidocaine, NSAID Off work note given w RTW on 04/26/24 Fu if needed * LIDIA OLIVER - 04/17/2024 11:40 AM EDT Pt states that the rash and pain on her lower back on Tuesday, went went to work on Tuesday and was miserable with pain and uncomfortableness, pt went to urgent care after her shift. Pt was diagnosed with shingles. Pt also has a spot/rash that is appearing on her lani/ groin area. * Gena Kirby NP - 04/17/2024 11:40 AM EDT Images from the original note were not included. Isabelle Hewitt is a 49 y.o. female presents with chief complaint of No chief complaint on file. HPI: Here for urgent care fu: shingles, rash started few days ago. Seen in urgent care yesterday and diagnosed, given anti virals as well as lidocaine patch. 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 Chicken pox hx: no Recent inspire surgery SUBJECTIVE: MEDICATIONS: Current Outpatient Medications Medication Instructions atenolol (TENORMIN) 100 mg, Oral, Daily atorvastatin (LIPITOR) 20 mg, Oral, Every evening dicyclomine (Bentyl) 10 MG capsule 1 capsule, Oral, 3 times daily Effexor XR 75 mg, Oral, Daily ibuprofen 800 MG tablet Every 8 hours KlonoPIN 1 mg, Oral, 2 times daily PRN levothyroxine (SYNTHROID, LEVOXYL) 75 mcg, Oral, Daily before breakfast lidocaine (Xylocaine) 5 % ointment Lidocaine 0.5 % aerosol Twice daily loperamide (IMODIUM) 2 mg, Oral, Every 6 [...] trospium (SANCTURA XR) 60 mg, Oral, Daily valACYclovir (Valtrex) 1 g tablet Every 8 hours venlafaxine XR (Effexor XR) 150 MG 24 [...] chest pain, palpitations and leg swelling. Gastrointestinal: Negative for abdominal pain, blood in stool, constipation, diarrhea, nausea and vomiting. Genitourinary: Negative for difficulty urinating, dysuria and frequency. Musculoskeletal: Negative for arthralgias, back pain, joint swelling and myalgias. Skin: Positive for rash. Negative for wound. Neurological: Negative for dizziness, tremors, seizures, syncope and headaches. Psychiatric/Behavioral: Negative for behavioral problems, self-injury and suicidal ideas. The patient is nervous/anxious. Depression Hematological: Does not bruise/bleed easily. Endocrine: Negative [...] (CMS/HCC) Mixed hyperlipidemia (CMS/HCC) 08/18/2023 Seasonal allergies Sleep apnea Thyroiditis (CMS/HCC) 10/13/2023 Tobacco user Past Surgical History: Procedure Laterality Date SECTION, LOW TRANSVERSE CYSTOSCOPY 01/05/2022 Cystoscopy, Left Ureteroscopy, Laser Lithotripsy and left Ureteral Stent LITHOTRIPSY MT LAP,CHOLECYSTECTOMY 01/2010 SALPINGECTOMY 11/12/2022 family history includes Bipolar disorder in her sister; Cancer in her father and mother; Heart disease in her father; Mental illness in her mother; No Known Problems in her daughter, sister, and sister. OBJECTIVE: Visit Vitals BP 110/80 (BP Location: Left arm, Patient Position: Sitting, BP Cuff Size: Adult long) Pulse 80 Temp 98 F (Temporal) Resp 18 Wt 151 lb 12.8 oz SpO2 94% BMI 27.76 kg/m OB Status Having periods Smoking Status Former BSA 1.74 m Physical Exam Vitals and nursing note reviewed. Constitutional: General: She is not in acute distress. Appearance: Normal appearance. HENT: Head: Normocephalic and atraumatic. Right Ear: External ear normal. Left Ear: External ear normal. Nose: Nose normal. Mouth/Throat: Mouth: Mucous membranes are moist. Eyes: Extraocular Movements: Extraocular movements intact. Conjunctiva/sclera: Conjunctivae normal. Musculoskeletal: General: Normal range of motion. Cervical back: Normal range of motion and neck supple. Skin: General: Skin is warm and dry. Capillary Refill: Capillary refill takes 2 to 3 seconds. Findings: No rash (vesicular red rash to left lower lumbar and supra pubic region c/w shingles). Neurological: General: No focal deficit present. Mental Status: She is alert and oriented to person, place, and time. Psychiatric: Mood and Affect: Mood normal. Behavior: Behavior normal. Thought Content: Thought content normal. Judgment: Judgment normal. ASSESSMENT AND PLAN: No follow-ups on file. Problem List Items Addressed This Visit Overweight (BMI 25.0-29.9) Herpes zoster without complication - Primary Finish anti virals, lidocaine, NSAID Off work note given w RTW on 04/26/24 Fu if needed documented in this encounterHCA Midwest DivisionDxmmzxggdm02-65-7399 Evaluation note* Author Majo Lyman [facility] Authored March 13, 2024 4:17 pm Patient's symptoms have impr rizwana with recommendation of dicyclomine and dietary changes. Patient has yet to complete bowel cleanout due to large stool burden noted on KUB this is also recommended. Patient negative for other GI symptoms at this time [facility] Work Phone: 1(469) 493-483101-30-2024 Evaluation note* Encounter Date Diagnosis Assessment Notes [...] improve even to the point of resolution, [employer] Other [id number] [facility] Evaluation [facility]* Encounter Date Diagnosis Assessment Notes [...] COLONOSCOPY. Jun, Fecal urgency (ICD-10 - R15.2) [facility] Other 10-17-2023 Evaluation note* Encounter Date Diagnosis [...] (suspected) exposure to covid-19 (ICD-10 - Z20.822) [facility] Other 06-07-2023 Telephone encounter Note* Telephone Encounter - Rikki Rodrigues DMD, MD - 01/26/2023 10:18 AM EDT Called and left voicemail for patient. Post-op Home Sleep Test reviewed from [facility], and there is considerable improvement. Pre-op AHI is 102, now down to 31. Pre-op O2 Carlene of 71%, now up to 82%. However, still with considerable desat time. There are notes from Dr. Moreno evaluating for INSPIRE I presume, but nothing since November. Asked patient for call back or Chairishhart message with if she has been able to continue with Dr. Moreno at his new office, or if she needs referral to another [facility] ENT. -montrell [facility] Work Phone: [phone]) 800-393406-07-2023 Miscellaneous Notes* Telephone Encounter - Rikki Rodrigues DMD, MD - 01/26/2023 10:18 AM EDT Called and left voicemail for patient. Post-op Home Sleep Test reviewed from [facility], and there is considerable improvement. Pre-op AHI is 102, now down to 31. Pre-op O2 Carlene of 71%, now up to 82%. However, still with considerable desat time. There are notes from Dr. Moreno evaluating for INSPIRE I presume, but nothing since November. Asked patient for call back or Chairishhart message with if she has been able to continue with Dr. Moreno at his new office, or if [facility] -montrell documented in this [id number] NoteOPERATIVE NOTE OPERATION DATE: 11/12/2022 PROCEDURE: Robotic assisted laparoscopic salpingectomy. PREOPERATIVE DIAGNOSIS: Multiparity, desires permanent sterilization. POSTOPERATIVE DIAGNOSIS: Multiparity, desires permanent sterilization. ANESTHESIA: General. SURGEON: Oswald Harrington D.O. PAPER RECLAIMING MACHINE OPERATOR: VIRAJ Salazar URINE OUTPUT: Yellow and [...] lap and needle counts were correct x2.[facility] HospitalSmjoakik19-11-9648 Telephone encounter Note* Telephone Encounter - Tatiana Morris - 11/04/2022 3:51 PM EDT Opened in error [id number] Miscellaneous Notes* Telephone Encounter - Tatiana Morris - 11/04/2022 3:51 PM EDT Opened in error documented in this [id number] Telephone encounter Note* Telephone Encounter - Rikki Rodrigues DMD, MD - 11/01/2022 2:32 PM EDT Called patient and left voicemail. Advised that order for post-op PSG was faxed to [facility]. Left number to call to schedule study at her convenience ([phone]) [facility] [place] Work Phone: 1([phone]) 564-968603-13-2023 Miscellaneous Notes* Telephone Encounter - Rikki Rodrigues DMD, MD - 11/01/2022 2:32 PM EDT Called patient and left voicemail. Advised that order for post-op PSG was faxed to [facility]. Left number to call to schedule study at her convenience ([phone]) documented in this [id number] History general Narrative - Reported* Type Description [...] counseling for depression, anxiety Hospitalization History dehydration [employer] Other 01-18-2023 History of Present illness Narrative* [...] sleep physician. Rikki Rodrigues DMD, MD * ТатьянаSeferinoCHAU - 08/30/2022 11:37 AM EST Images from [...] -Complete sleep study with Dr. Mcmanus in [place], [place] in 1.5 months -Follow up with patient's general dentist, Sinan Jones DDS for denture adjustment Follow-Up: After new sleep study Follow up sooner with new or worsening symptoms. Sinan Jones DDS [place] [address] [place] [address] Wiley Mcmanus MD [facility] [address] [place] [address] Seferino Vaz DMD [facility] Resident documented in this [id number] Instructions* Patient Instructions* Wilfredo Vang DMD - 08/30/2022 12:07 PM EST With clean hands massage gums under your upper lip daily at night time No food restrictions Follow up with your dentist We will contact your Sleep Center in [place] to have a Sleep Study completed in 1.5 months. documented in this [id number] Instructions* Patient Instructions* Wilfredo Vang DMD - 08/30/2022 12:07 PM EST With clean hands massage gums under your upper lip daily at night time No food restrictions Follow up with your dentist We will contact your Sleep Center in [place] to have a Sleep Study completed in 1.5 months. documented in this [id number] History of Present illness Narrative* Seferino Vaz [...] -Complete sleep study with Dr. Mcmanus in [place], [place] in 1.5 months -Follow up with patient's general dentist, Sinan Jones DDS for denture adjustment Follow-Up: PRN Follow up sooner with new or worsening symptoms. Sinan Jones DDS [address] [place] [address] Wiley Mcmanus MD [facility] [address] [place], [place] [id number] Seferino Vaz DMD [facility] Resident documented in this [id number] Telephone encounter Note* Telephone Encounter - Jerel [...] at this number. Jerel Villegas DDS, MD FS- PGY4 [phone] [employer] Work Phone: 1(628) 862-968812-21-2022 Miscellaneous Notes* Telephone Encounter - Jerel Villegas [...] patient at this number. Jerel Villegas DDS, [facility]- PGY4 [phone] documented in this [id number] Telephone encounter Note* Telephone Encounter - Oliver Rogers DMD - 08/02/2022 4:26 PM EST Called pt. No answer. LVM with callback instructions. Per Dr. Rodrigues, we will not write any work excuse notes or prescribe any pain meds until pt is seenin person for follow up. Oliver Rogers DMD [facility] [place] Work Phone: 1([phone]) 792-795712-12-2022 Miscellaneous Notes* Telephone Encounter - Oliver Rogers [...] options if that is the case. Email: [email or web address] Contact pt @[phone] for questions/concerns documented in this [id number] Telephone encounter Note* Telephone Encounter - Zayda [...] options if that is the case. Email: [email or web address] Contact pt @[phone] for questions/concerns [id number] Telephone encounter Note* Telephone Encounter - Mikal [...] Oral & Maxillofacial Surgery, PGY-3 Team Pager: [phone] [facility] Work Phone: 1(429) [phone] Miscellaneous Notes* Telephone Encounter - Mikal Rodgers [...] Oral & Maxillofacial Surgery, PGY-3 Team Pager: [phone] documented in this [id number] History of Present illness Narrative* Mikal Rodgers [...] Oral & Maxillofacial Surgery, PGY-3 Team Pager: [phone] documented in this [id number] History of Present illness Narrative* Saleem Mi DMD - 07/19/2022 8:28 AM EST Images from the original note were not included. Initial pre-surgical workup photos: documented in this [id number] Note* Care Plan Note - Penny Brown [...] provided. Patient discharged home with family member. [id number] Miscellaneous Notes* Care Plan Note - Penny [...] year old female Surgical Contact Serial Number: [id number] Preoperative Diagnosis: DIONNE (obstructive sleep apnea) [G47.33] Postoperative Diagnosis: * DIONNE (obstructive sleep apnea) [G47.33] Procedures: Surgical CPTs Procedures RECONSTRUCTION MIDFACE, LEFORT I; 1 PIECE, W/O BONE GRAFT RECONSTRUCTION, MANDIBULAR RAMI &/OR BODY, SAGITTAL SPLIT; W/INT RIGID FIXATION No data filed Surgeon(s): Surgeon(s): Rikki Rodrigues DMD, MD Staff: Scrub: Annelise Saeed RN; Babs Wells RN Gas Mask Assembler Nurse: Stephanie Brannon RN; Babs Wells RN Meter Repairer Helper: Margot Ovalles DDS; Saleem Mi DMD Anesthesia: [...] were discussed with the patient and/or legal registration representative. The risks, benefits and alternatives were reviewed. Questions regarding blood transfusions were answered. The patient /or the patient s legal registration representative agree with the plan for transfusion of blood and/or blood components. * Anesthesia Attestation - Ki Atwood MD - 07/14/2022 7:06 AM EST Anesthesia Attestation ATTESTATION OF INFORMED CONSENT FOR ANESTHESIA Anesthesia options were discussed with the patient and/or legal registration representative. The risks, benefits and alternatives were reviewed. Questions regarding anesthesia were answered. Patient and/or legal registration representative knows such anesthetics and procedures may be performed by Resident physicians, Certified Anesthesiologist Assistants, or Certified Nurse Anesthetists under the supervision of a physician. The patient /or the patient s legal representativeagree with the plan for anesthesia. documented in this [id number] NoteDISCHARGE SUMMARY [place] [id number] Isabelle Hewitt Date of : 1975 47 [...] 07/23/2022 2:30 PM Rikki Rodrigues DMD, MD [facility] 10/19/2022 8:45 AM Yi Moreno MD [facility] ENT [facility] Click the Form Tab Reason for Hospitalization [...] of concern and please page the resident clinical science liaison Do not blow your nose for 2 [...] can. Rinse your (more content not included)...[facility] [id number] Note FS PROGRESS NOTE Isabelle Hewitt is [...] oxymetazoline (AFRIN) 0.05 % nasal solution 2 Hills Nasal Q4H PRN sodium chloride (OCEAN) 0.65 % nasal spray 1 [place] Nasal Q1H PRN naloxone (NARCAN) 0.4 MG/ML [...] to be discharged to follow up with [facility] [id number] Hospital Discharge instructions* Discharge Instructions* Oliver Rogers DMD - 07/17/2022 9:34 AM EST RETAIL LOAN OFFICER DISCHARGE INSTRUCTIONS MEDICATIONS Pain medication should be [...] of concern and please page the resident clinical science liaison Do not blow your nose for 2 [...] weeks until the bones heal QUESTIONS/CONCERNS Call instrumentation and controls designer Office [phone] documented in this [id number] History of Present illness Narrative* Wilfredo Vang DMD - 07/17/2022 8:58 AM EST Images from the original note were not included. FS PROGRESS NOTE Isabelle Hewitt is a [...] abnormalities, nares patent w/o discharge or obstruction. SARHA 40mm, Intraoral incisions are hemostatic w/no dehiscence, [...] Hct MCV RDW Plt PT aPTT INR 11/26/22 0222 8.7 3.33 10.8 32.8 99 13.7 214 [...] Oral 2x Daily 20 mg at 07/16/22 2044 ibuprofen (MOTRIN) tablet 600 mg Oral Q6H PRN ondansetron (ZOFRAN) 4 MG/2ML injection 4 mg Intravenous Push Q6H PRN docusate sodium (COLACE) capsule 100 mg Oral 2x Daily 100 mg at 07/16/22 0811 bisacodyl (DULCOLAX) 5 MG enteric coated tablet 10 mg Oral Daily PRN oxymetazoline (AFRIN) 0.05 % nasal solution 2 [place] Nasal Q4H PRN sodium chloride (OCEAN) 0.65 % nasal spray 1 [place] Nasal Q1H PRN naloxone (NARCAN) 0.4 MG/ML injection 0.4 mg Intravenous Push PRN Assessment: Isabelle Hewitt is a 47 year old yo female who is HOD 3 for [facility] for sleep apnea. She is taking adequate PO, sating appropriately at room air w/o any concerns of airway embarrassment, voiding spontaneously, normotensive. Pain is also controlled. Given these findings, patient is ok to be discharged to follow up with [facility]. * Lola Wyatt RN - 07/16/2022 [...] 3,000 mg, Intravenous, Q6H Antibiotic, [place], Margot, DDS, Last Rate: 200 mL/hr at 07/16/22 [...] oxymetazoline (AFRIN) 0.05 % nasal solution, 2 [place], Nasal, Q4H PRN, Oliver Rogers, DMD sodium chloride (OCEAN) 0.65 % nasal spray, 1 [place], Nasal, Q1H PRN, Oliver Rogers, DMD naloxone [...] BUN Cr Ca Mg PO4 07/16/221 2.0 07/16/221 144 4.0 103 31 14 96 16 [...] Daily, Oliver Rogers, DMD, 5 mg at 07/15/22 0625 venlafaxine (EFFEXOR XR) 24 hour capsule, 75 mg, Oral, Daily, Oliver Rogers DMD HYDROmorphone (DILAUDID) 1 mg/mL injection, 0.5 mg, Intravenous Push, Q3H PRN, Clifford Crzu MD LORazepam (ATIVAN) 2 MG/ML injection, 0.5 mg, Intravenous Push, Q6H PRN, Clifford Cruz MD acetaminophen (TYLENOL) tablet, 650 mg, Oral, Every 4 hours, Oliver Rogers, CHAU, 650 mg at 07/15/22 0346 chlorhexidine (PERIDEX) 0.12 % oral solution, 15 mL, Swish & Spit, 2x Daily, Oliver Rogers, DMD, 15 mL at 07/14/222049 famotidine (PEPCID) [...] oxymetazoline (AFRIN) 0.05 % nasal solution, 2 Hills, Nasal, Q4H PRN, Oliver Rogers DMD sodium chloride (OCEAN) 0.65 % nasal spray, 1 [place], Nasal, Q1H PRN, Oliver Rogers DMD enoxaparin [...] discussed. Zehra Stearns MD documented in this [id number] Note* Care Plan Note - Penny Brown [...] adult patient will be met Outcome: Progressing [id number] Note* Care Plan Note - Lauren Crawford [...] adult patient will be met Outcome: Progressing [id number] Note* Care Plan Note - Alon Cotton [...] monitoring. Patient free of falls/injuries during shift. [id number] History and physical note* Zehra Stearns MD - 07/14/2022 3:58 PM EST Images from the original note were not included. Surgical ICU H&P Isabelle Hewitt [id number] HPI: Ms Hewitt is a 47 year [...] Clifford Cruz MD PGY-5 Radiology SICU Pager -[phone] [facility] Surgery Pager -[phone], Weekdays 6a-6p Velma Pager -[phone], Weekdays 6p-6a, weekends Attending Attestation I saw [...] stepdown for airway monitoring. Zehra Stearns MD [id number] History and physical note* Zehra Stearns MD - 07/14/2022 3:58 PM EST Images from the original note were not included. Surgical ICU H&P Isabelle Hewitt [id number] HPI: Ms Hewitt is a 47 year [...] Clifford Cruz MD PGY-5 Radiology SICU Pager -[phone] [facility] Surgery Pager -[phone], Weekdays 6a-6p Velma Pager -[phone], Weekdays 6p-6a, weekends Attending Attestation I saw [...] Yes Saleem Mi DDS documented in this [id number] NoteSurgical Attestation: I have reviewed the patient's History and Physical Examination. I have personally seen and evaluated the patient, repeating ulloa portions. There is no significant interval change. Surgery is still indicated. Yes Consent reviewed and signed by patient/family: Yes Operative site verified: Yes [facility] [id number] Note* Brief Operative Note - Rikki Rodrigues DMD, MD - 07/14/2022 8:30 AM EST Brief Operative Note MAIN OR 12 Isabelle Hewitt 47 year old female Surgical Contact Serial Number: [id number] Preoperative Diagnosis: DIONNE (obstructive sleep apnea) [G47.33] Postoperative Diagnosis: * DIONNE (obstructive sleep apnea) [G47.33] Procedures: Surgical CPTs Procedures RECONSTRUCTION MIDFACE, LEFORT I; 1 PIECE, W/O BONE GRAFT RECONSTRUCTION, MANDIBULAR RAMI &/OR BODY, SAGITTAL SPLIT; W/INT RIGID FIXATION No data filed Surgeon(s): Surgeon(s): Rikki Rodrigues DMD, MD Staff: Scrub: Annelise Saeed RN; Babs Wells RN Gas Mask Assembler Nurse: Stephanie Brannon RN; Babs Wells RN Meter Repairer Helper: Margot Ovalles DDS; Saleem Mi DMD Anesthesia: [...] Rikki Rodrigues DMD, MD 07/14/2022 12:58 PM [employer] Work Phone: 1([phone]) 701-191711-23-2022 History and physical note* Saleem Mi DMD - 07/14/2022 7:13 AM EST Surgical Attestation: I have reviewed the patient's History and Physical Examination. I have personally seen and evaluated the patient, repeating ulloa portions. There is no significant interval change. Surgery is still indicated. Yes Consent reviewed and signed by patient/family: Yes Operative site verified: Yes Saleem Mi DDS [employer] Work Phone: 1(713) 189-199211-23-2022 Note* Blood Attestation - Ki Atwood MD - 07/14/2022 7:06 AM EST Blood Attestation ATTESTATION OF INFORMED CONSENT FOR BLOOD The transfusion of blood and/or blood components were discussed with the patient and/or legal registration representative. The risks, benefits and alternatives were reviewed. Questions regarding blood transfusions were answered. The patient /or the patient s legal registration representative agree with the plan for transfusion of blood and/or blood components. [employer] Work Phone: 1([phone]) 661-247611-23-2022 Note* Anesthesia Attestation - Ki Atwood MD - 07/14/2022 7:06 AM EST Anesthesia Attestation ATTESTATION OF INFORMED CONSENT FOR ANESTHESIA Anesthesia options were discussed with the patient and/or legal registration representative. The risks, benefits and alternatives were reviewed. Questions regarding anesthesia were answered. Patient and/or legal registration representative knows such anesthetics and procedures may be performed by Resident physicians, Certified Anesthesiologist Assistants, or Certified Nurse Anesthetists under the supervision of a physician. The patient /or the patient s legal representativeagree with the plan for anesthesia. [id number] Telephone encounter Note* Telephone Encounter - Latoya Manzo RN - 07/09/2022 3:43 PM EST 1541: Contacted pt and informed her to call the ENT office to schedule appt with Dr Moreno s/p jaw surgery in about 3 months due to healing time. Pt verbalized understanding. Latoya Manzo RN [id number] Miscellaneous Notes* Telephone Encounter - Latoya Manzo [...] step is for after the surgery. PT: [phone] Gus Luz documented in this [id number] Telephone encounter Note* Telephone Encounter - Nicole Diaz - 07/09/2022 2:[address] Joel, Patient calling stating that she is going forward with the jaw surgery that you recommended next 07/14/22. Patient would like to know what the next step is for after the surgery. PT: [phone] Natty, Gus [facility] [place] Work Phone: 1(223) 275-729311-17-2022 Instructions* Patient Instructions* Gena Holbrook APRN-CNP - [...] pain Please hold all Vitamin E, [place] 3, fish oil and herbal supplements for 1 week prior to surgery documented in this [id number] Note* PSE Appt H&P - Edwina Daniel - 07/08/2022 1:59 PM EST Patient was identified by name and date of . Edwina Daniel Bill of rights provided to patient [id number] Miscellaneous Notes* PSE Appt H&P - Edwina Daniel - 07/08/2022 1:59 PM EST Patient was identified by name and date of . Edwina Daniel Bill of rights provided to patient * PSE Appt H&P - Yusef GenaKATHRIN-CLEANING LABORER - 07/07/2022 4:03 PM EST Presurgical Evaluation Isabelle Hewitt, [id number] 47 year old Female 07/08/2022 BP 122/80 [...] Yes Does not use CPAP PS12/17/[address] [facility] RESPIRATORY DATA INTEGRITY: Respiratory data integrity [...] Arredondo 4:25 PM 07/08/2022 documented in this [id number] NotePresurgical Evaluation Isabelle Hewitt, [id number] 47 year old Female 07/08/2022 BP 122/80 [...] Yes Does not use CPAP PS12/17/[address] [facility] RESPIRATORY DATA INTEGRITY: Respiratory data integrity [...] grossly intact Psychia (more content not included)...The [facility] [place] [id number] Note* PSE Appt H&P - Gena Holbrook APRN-CLEANING LABORER - 07/07/2022 4:03 PM EST Presurgical Evaluation Isabelle Hewitt, [id number] 47 year old Female 07/08/2022 BP 122/80 [...] Yes Does not use CPAP PS12/17/[address] [facility] RESPIRATORY DATA INTEGRITY: Respiratory data integrity [...] Interviewer signature: ARTURO Arredondo 4:25 PM 07/08/2022 [id number] NotePatient is vaccinated for COVID-19. Vaccinations are documented in Epic. Patient does not require pre-op COVID testing per current guidelines.[facility] [place] [id number] Telephone encounter Note* Telephone Encounter - Mary Dennis RN - 07/05/2022 8:53 PM EST Patient is vaccinated for COVID-19. Vaccinations are documented in Epic. Patient does not require pre-op COVID testing per current guidelines. [id number] Miscellaneous Notes* Telephone Encounter - Mary Dennis RN - 07/05/2022 8:53 PM EST Patient is vaccinated for COVID-19. Vaccinations are documented in Epic. Patient does not require pre-op COVID testing per current guidelines. documented in this [id number] Note* PSE Appt H&P - Pierce Ramos APRN-CNP - 07/05/2022 12:06 PM EST Error [facility] Work Phone: 1(327) 135-823411-14-2022 Miscellaneous Notes* PSE Appt H&P - Pierce Ramos APRN-CNP - 07/05/2022 12:06 PM EST Error documented in this [id number] History of Present illness Narrative* Seferino Vaz DMD - 07/02/2022 11:00 AM EST ORAL SURGERY CLINIC FOLLOW UP VISIT Patient was seen in the [facility] for alginate impressions of the edentulous maxilla and CBCT with denture in place. Seferino Vaz DMD [facility] Resident ms. documented in this [id number] History of Present illness Narrative* Rikki Rodrigues DMD, MD - 06/18/2022 4:17 PM EDT Images from the original note were not included. OMFS PATIENT VISIT CHIEF COMPLAINT: sleep apnea HISTORY OF PRESENT ILLNESS: Patient presents for evaluation for surgical treatment of DIONNE. She is extremely symptomatic from her DIONNE, and suffers from CPAP intolerance. [place] sleepiness scale is 18. Patient is starting [...] on 06/18/2022, and Digital version in Dentistry ChipX system. Airway measurements are very small compared to norms. Retrognathic mandible. DIAGNOSIS: Obstructive sleep apnea [618528] TREATMENT: Exam, Panorex evaluated, and pictures/models taken [...] Rikki Rodrigues DMD, MD documented in this [id number] History of Present illness Narrative* Leonard Ovallesbrooks, DDS - 06/18/2022 4:17 PM EDT Images from the original note were not included. OMFS PATIENT VISIT CHIEF COMPLAINT: sleep apnea HISTORY OF PRESENT ILLNESS: Patient presents for evaluation for surgical treatment of DIONNE. She is extremely symptomatic from her DIONNE, and suffers from CPAP intolerance. [place] sleepiness scale is 18. Patient is starting [...] on 06/18/2022, and Digital version in Dentistry [employer] system. Airway measurements are very small compared to norms. Retrognathic mandible. DIAGNOSIS: Obstructive sleep apnea [975240] TREATMENT: Exam, Panorex evaluated, and pictures/models taken [...] Rikki Rodrigues DMD, MD documented in this [id number] Instructions* Patient Instructions* Rikki Rodrigues DMD, MD [...] fatigue and inconsistent sleep. documented in this [id number] NoteSurgical Attestation: I have reviewed the patient's History and Physical Examination. I have personally seen and evaluated the patient, repeating ulloa portions. There is no significant interval change. Surgery is still indicated. Yes Consent reviewed and signed by patient/family: Yes Operative site verified and marked: site verified but not marked as not anatomically possible Ryann Brown PA-C 06/03/2022 11:55 AMThe [employer]10-10-2022 Evaluation note* Encounter Date Diagnosis Assessment Notes Treatment Notes Treatment Clinical Notes May, Encounter for screening for other viral diseases (ICD-10 - Z11.59) [facility] Other 10-07-2022 Note* PSE Call H&P - Rose Brown RN - 05/28/2022 9:42 AM EDT Images from the original note were not included. Telephone History Isabelle Hewitt, [id number] 05/28/2022 47 year old 190 lbs 5' [...] Do not take any Vitamin E, [place] 3, fish oils, herbal medications 7 days [...] Spent Performing this Telephone History: 30 minutes [id number] Miscellaneous Notes* PSE Call H&P - Rose Brown RN - 05/28/2022 9:42 AM EDT Images from the original note were not included. Telephone History Isabelle Hewitt, [id number] 05/28/2022 47 year old 190 lbs 5' [...] prior sleep endoscopy STOP-BANG Row Name 05/28/22 0912 History of sleep apnea? Yes dionne-intolerant of [...] Do not take any Vitamin E, [place] 3, fish oils, herbal medications 7 days [...] Telephone History: 30 minutes documented in this [id number] Telephone encounter Note* Telephone Encounter - Mary Dennis RN - 05/28/2022 8:15 AM EDT Patient is scheduled for DISE on 06/03/2022. Prefers to complete pre-op COVID testing closer to home. Instructed to obtain testing 48-72 hours prior to surgery and bring copy of results on day of surgery. PSE contact information provided. [id number] Miscellaneous Notes* Telephone Encounter - Mary Dennis RN - 05/28/2022 8:15 AM EDT Patient is scheduled for DISE on 06/03/2022. Prefers to complete pre-op COVID testing closer to home. Instructed to obtain testing 48-72 hours prior to surgery and bring copy of results on day of surgery. PSE contact information provided. documented in this [id number] Telephone encounter Note* Telephone Encounter - Mary Dennis RN - 05/26/2022 9:16 PM EDT Arrangements to be made for pre-op COVID testing per ENT request. [id number] Miscellaneous Notes* Telephone Encounter - Mary Dennis RN - 05/26/2022 9:16 PM EDT Arrangements to be made for pre-op COVID testing per ENT request. documented in this [id number] Note* Addendum Note - Yi Moreno MD - 05/26/2022 5:25 PM EDTAddended by: YI MORENO on: 05/26/2022 05:25 PM Modules accepted: Orders [id number] Miscellaneous Notes* Addendum Note - Yi Moreno MD - 05/26/2022 5:25 PM EDTAddended by: YI MORENO on: 05/26/2022 05:25 PM Modules accepted: Orders documented in this [id number] History of Present illness Narrative* Yi Moreno MD - 03/29/2022 2:41 PM EDT Images from the original note were not included. .Documentation: Mode: Telephone Patient Home Phone: Patient Patient Cell Preferred phone: [phone] Consent: I confirmed patient understanding of the [...] on prior sleep endoscopy documented in this [id number] History of Present illness Narrative* Yi Moreno MD - 03/29/2022 2:41 PM EDT Images from the original note were not included. .Documentation: Mode: Telephone Patient Home Phone: Patient Patient Cell Preferred phone: [phone] Consent: I confirmed patient understanding of the [...] on prior sleep endoscopy documented in this [id number] Telephone encounter Note* Telephone Encounter - Tatiana [...] to turn it in is 03/19/22. PH#: [phone] [id number] Miscellaneous Notes* Telephone Encounter - Tatiana Morris [...] to turn it in is 03/19/22. PH#: [phone] documented in this [id number] Note* Care Plan Note - Iglesia Amin [...] will be met Outcome: Adequate for Discharge [id number] Miscellaneous Notes* Care Plan Note - Iglesia [...] Outcome: Progressing * Care Plan Note - Felicita, Ashvin - 02/25/2022 7:10 PM EDT Problem: Routine [...] year old female Surgical Contact Serial Number: [id number] Preoperative Diagnosis: DIONNE (obstructive sleep apnea) [G47.33] Postoperative Diagnosis: * DIONNE (obstructive sleep apnea) [G47.33] Procedures: Surgical CPTs Procedures PALATOPHARYNGOPLASTY No data filed Surgeon(s): Surgeon(s): Yi Moreno MD Staff: Scrub: Wiley Álvarez Gas Mask Assembler Nurse: Mariaa Briseno; Dulce Allred; Babs Wells RN Meter Repairer Helper: Yi Piña MD; Unruly Biggs MD Anesthesia: Consult Anesthesiologist: Maite Youssef MD CAA: Mariaa Meneses CAA RESERVOIR ENGINEERING CONSULTANT: Cari Hurtado APRN-KOBI Manager Wholesale: Carol Barrera MD Anesthesia Student: Prema Norris [...] Moreno MD - 02/25/2022 10:00 AM EDT [id number] Isabelle Hewitt 1975 @PATFNAME@ @PATIENTLASTNAME@ [id number] Preoperative diagnosis: 1. Obstructive sleep apnea 2. [...] were discussed with the patient and/or legal registration representative. The risks, benefits and alternatives were reviewed. Questions regarding anesthesia were answered. Patient and/or legal registration representative knows such anesthetics and procedures may [...] were discussed with the patient and/or legal registration representative. The risks, benefits and alternatives were reviewed. Questions regarding blood transfusions were answered. The patient /or the patient s legal registration representative agree with the plan for transfusion of blood and/or blood components. documented in this [id number] NoteOTOLARYNGOLOGY HEAD AND NECK SURGERY DAILY PROGRESS [...] and perioperative course uncomplicated. Patient transferred to [facility] from PACU. Mild anxiety overnight. No desaturations and pain overall well controlled. Patient on 2L NC when seen in the AM - Wean nc as tolerated - Monitor PO - Restart home meds - Discharge home today as appropriate ENT [id number] [facility]07-08-2022 Note* Care Plan Note - Martínez Johnson [...] the patient will be met Outcome: Progressing [id number] [place] [address] Isabelle Hewitt Date of : 1975 46 [...] Your Medications These medications were sent to [facility] - [place], [place] - [address] [place] [address] acetaminophen 650 MG CR tablet methylPREDNISolone 4 [...] documented in the resident's note. [facility] Discharge instructions* Discharge Instructions* [...] shared with your regular doctor. Isabelle Hewitt [facility] [address] Phone numbers Date of Procedure: 02/25/22 Physicians: Dr. Yi Moreno (ENT) Admission Date: 02/25/2022 7:49 AM Discharge Date: No discharge date for patient encounter. Disposition: Home Home Care Agency: none Procedure that was performed: Uvulopalatopharyngoplasty (UPPP) Pending results: No pathology specimen was sent Call [phone] during regular daytime business hours (8:00 am - 5:00 pm) and after 5:00 pm call [phone] and ask to speak with the ENT Resident Medical Health Researcher with any questions or concerns. If it is a life-threatening situation, proceed to the nearest emergency department. Your Follow-up Appointment(s) Future Appointments Date Time Provider Department Center 03/29/2022 3:15 PM Yi Moreno MD [facility] Location: [facility] ([facility] [place]) [address] [place] [address] ([phone]) Thank you for the opportunity to care [...] a stool softener, they may be purchased fffq-mfe-uhzuusp at any local drugstore. Signs of Infection Signs of infection can include fever, excessive swelling, heat, drainage, redness, or severe pain. If you see any of these occur, please contact your doctor's office at [phone]. Any fever higherthan 100.4, especially if associated [...] opioids can be used to help relieve ozqdtccc-lg-pmakpt pain and are often prescribed following a [...] or Mental Health Mobile Crisis Help Line [phone] Narcotics Anonymous Center for Disease Control and Prevention www.cdc.gov 211 First Call For Help (14/03) 2-1-1 from phone OR [employer] Falls Prevention Each year, 1 in every 3 adults over the age of 65 are treated for fall-related injuries. The risk of falling increases with each decade of life. The good news is, many falls are preventable. Here are some fall prevention tips: Exercise can increase strength and improve balance, making falls much less likely. For more informati on visit: http://[facility].org/services/qqpo-wxisez-jw-your-health/a-matte k-fg-izaxrfp/ Some medications or combinations of medications can [...] Written by the doctors and editors at [facility] What are the benefits of exercise? [...] of movement, like short walks or doing panelboard tank pumper, can help improve your health. What else [...] process is complete. This topic retrieved from [employer] on: Mar 19, 2020. Topic 90079 Version 20.0 Release: 28.4.6 - C28.294 2019 [employer] and/or its affiliates. All rights reserved. Consumer [...] that is right for you.The use of [employer] content is governed by the [employer] Terms of Use. 2020 [employer]. All rights reserved. Copyright 2020 [employer] and/or its affiliates. All rights reserved. Reviewed April 2020 documented in this [id number] Note* Care Plan Note - Ashvin Mims [...] the patient will be met Outcome: Progressing [id number] NoteAddendum created 02/25/22 1219 by Mariaa Meneses CAA Intraprocedure Staff editedThe [facility]07-07-20[facility] History of Present illness Narrative* Ailyn Son [...] no areas of redness. documented in this [id number] NoteSurgical Attestation: I have reviewed the patient's History and Physical Examination. I have personally seen and evaluated the patient, repeating ulloa portions. There is no significant interval change. Surgery is still indicated. Yes Consent reviewed and signed by patient/family: Yes Operative site verified and marked: Yes Yi Moreno MD 02/25/2022 8:56 AMThe [facility]07-07-2022 Note* Brief Operative Note - Yi Moreno MD - 02/25/2022 10:00 AM EDT Brief Operative Note MAIN OR 11 Isabelle Hewitt 46 year old female Surgical Contact Serial Number: [id number] Preoperative Diagnosis: DIONNE (obstructive sleep apnea) [G47.33] Postoperative Diagnosis: * DIONNE (obstructive sleep apnea) [G47.33] Procedures: Surgical CPTs Procedures PALATOPHARYNGOPLASTY No data filed Surgeon(s): Surgeon(s): Yi Moreno MD Staff: Scrub: Wiley Álvarez Gas Mask Assembler Nurse: Mariaa Briseno; Dulce Allred; Babs Wells RN Meter Repairer Helper: Yi Piña MD; Unruly Biggs MD Anesthesia: Consult Anesthesiologist: Maite Youssef MD CAA: Mariaa Meneses CAA RESERVOIR ENGINEERING CONSULTANT: Cari Hurtado APRN-CRNA Manager Wholesale: Carol Barrera MD Anesthesia Student: Prema Norris [...] by Yi Moreno MD 02/25/2022 10:40 AM [id number] Note* OP Note - Yi Moreno MD - 02/25/2022 10:00 AM EDT [id number] Isabelle Xenia 1975 @PATFNAME@ @PATIENTLASTNAME@ [id number] Preoperative diagnosis: 1. Obstructive sleep apnea 2. [...] taken back to recovery in stable condition. [id number] History and physical note* Yi Moreno MD [...] Yes Yi Moreno MD 02/25/2022 8:56 AM [id number] History and physical note* Yi Moreno MD [...] MD 02/25/2022 8:56 AM documented in this [id number] Note* Anesthesia Attestation - Maite Youssef MD - 02/25/2022 8:52 AM EDT Anesthesia Attestation ATTESTATION OF INFORMED CONSENT FOR ANESTHESIA Anesthesia options were discussed with the patient and/or legal registration representative. The risks, benefits and alternatives were reviewed. Questions regarding anesthesia were answered. Patient and/or legal registration representative knows such anesthetics and procedures may be performed by Resident physicians, Certified Anesthesiologist Assistants, or Certified Nurse Anesthetists under the supervision of a physician. The patient /or the patient s legal representativeagree with the plan for anesthesia. [facility] Work Phone: 1(548) 116-699807-07-2022 Note* Blood Attestation - Maite Youssef MD - 02/25/2022 8:52 AM EDT Blood Attestation ATTESTATION OF INFORMED CONSENT FOR BLOOD The transfusion of blood and/or blood components were discussed with the patient and/or legal registration representative. The risks, benefits and alternatives were reviewed. Questions regarding blood transfusions were answered. The patient /or the patient s legal registration representative agree with the plan for transfusion of blood and/or blood components. [id number] Telephone encounter Note* Telephone Encounter - Mary Dennis RN - 02/24/2022 7:19 AM EDT PSE received pre-op COVID test results - NOT DETECTED on 02/23/2022. Document scanned into [employer]. [id number] Miscellaneous Notes* Telephone Encounter - Mary Dennis RN - 02/24/2022 7:19 AM EDT PSE received pre-op COVID test results - NOT DETECTED on 02/23/2022. Document scanned into [employer]. documented in this [id number] Telephone encounter Note* Telephone Encounter - Mary Dennis RN - 02/17/2022 2:52 PM EDT Patient is scheduled for surgery 02/25/2022. Prefers to complete pre-op COVID testing closer to home.Instructed to obtain testing 48-72 hours prior to surgery and bring copy of results on day of surgery. PSE contact information provided, order faxed to [facility] per patient request. [id number] Miscellaneous Notes* Telephone Encounter - Mary Dennis RN - 02/17/2022 2:52 PM EDT Patient is scheduled for surgery 02/25/2022. Prefers to complete pre-op COVID testing closer to home.Instructed to obtain testing 48-72 hours prior to surgery and bring copy of results on day of surgery. PSE contact information provided, order faxed to [facility] per patient request. documented in this [id number] Instructions* Patient Instructions* Pierce Ramos APRN-CNP - [...] pain Please hold all Vitamin E, [place] 3, fish oil and herbal supplements for 1 week prior to surgery documented in this [id number] Note* PSE Appt H&P - Quinton Manzo - 02/16/2022 2:19 PM EDT Patient was identified by name and date of . Quinton Manzo Bill of rights provided to patient [id number] Miscellaneous Notes* PSE Appt H&P - Quinton Manzo - 02/16/2022 2:19 PM EDT Patient was identified by name and date of . Quinton Manzo Bill of rights provided to patient * PSE Appt H&P - Pierce Ramos APRN-CNP - 02/15/2022 2:46 PM EDT Presurgical Evaluation Isabelle Hewitt, [id number] 46 year old Female 02/17/2022 VITAL SIGNS: [...] Yes Does not use CPAP PS12/17/[address] [facility] RESPIRATORY DATA INTEGRITY: Respiratory data integrity [...] (LIPITOR) 20 mg tablet EKG 12-LEAD TRACING [[id number]] PLAN: Documentation complete. Labs, Images, and Medications reviewed, and patient questions answered. Interviewer signature: ARTURO Rankin 8:00 AM 02/17/2022 documented in this [id number] NotePresurgical Evaluation Isabelle Hewitt, [id number] 46 year old Female 02/17/2022 VITAL SIGNS: [...] Yes Does not use CPAP PS12/17/[address] [facility] RESPIRATORY DATA INTEGRITY: Respiratory data integrity [...] No result fo (more content not included)...[employer] [place] [id number] Note * PSE Appt H&P - Pierce Ramos APRN-BRIAN - 02/15/2022 2:46 PM EDT Presurgical Evaluation Isabelle Hewitt, [id number] 46 year old Female 02/17/2022 VITAL SIGNS: [...] Yes Does not use CPAP PS12/17/[address] [facility] RESPIRATORY DATA INTEGRITY: Respiratory data integrity [...] (LIPITOR) 20 mg tablet EKG 12-LEAD TRACING [[id number]] PLAN: Documentation complete. Labs, Images, and Medications reviewed, and patient questions answered. Interviewer signature: ARTURO Rankin 8:00 AM 02/17/2022 [id number] Telephone encounter Note* Telephone Encounter - Mary Dennis RN - 02/11/2022 3:52 PM EDT Arrangements to be made for pre-op COVID testing per ENT request. [id number] Miscellaneous Notes* Telephone Encounter - Mary Dennis RN - 02/11/2022 3:52 PM EDT Arrangements to be made for pre-op COVID testing per ENT request. documented in this [id number] History of Present illness Narrative* Yi Moreno [...] indicating an AHI of 63 with an O6awoys of 64% Sleep position: Side Mouth breather:y yeses previous sleep surgeries: no Other sleep disorders, such as insomnia/ kataplexy/ narcolepsy: yes, on andoff Bruxism: no tried oral appliance:edenetulous Questionnaires: [place] sleep scale score: 18 FOSQ-10: HADS No [...] middle ear was aerated bilaterally. Clinical speech bilingual medical receptionist thresholds grossly intact. No lesions/mass of [...] surgery. Patient's procedure [facility] be done at [facility]. This is a difficult [...] transfusion as discussed preoperatively. documented in this [id number] History of Present illness Narrative* Randa Yanes [...] or not. Verbalizes understanding. documented in this [facility] [employer] Phone: 1(219) 823-527405-17-2022 Hospital Discharge instructions* Instructions* Ade Easton RN [...] flush the urinary tract.) Call Dr. Hirsch ([phone]) if you develop: Fever over 100 degrees [...] Call Dr. Hirsch office for follow-up appointment ([phone]). documented in this [facility] Work Phone: 1(164) 280-575503-21-2022 Evaluation note* Encounter Date Diagnosis Assessment Notes [...] changes in symptoms and/or problems with treatment [employer] Other Chief complaint Narrative - ReportedJENNIFER DOROBEK is being seen for a consultation for abnormal test(s) results.-[facility] Heart-Karla [address] DO Work Phone: Evaluation note* Diagnosis Kidney stones Calculus of kidney documented in this encounter [employer] Phone: evalveybcy note* Diagnosis Pre-op testing Preoperative examination, unspecified documented in this encounter [employer] Phone: evalmucnah note* Diagnosis Ureteral calculus- Primary Calculus of ureter documented in this encounter [employer] Phone: evallhstys note* Diagnosis DIONNE (obstructive sleep apnea)- Primary Obstructive sleep apnea (adult) (pediatric) Body mass index (BMI) 34.0-34.9, adult [facility] [employer] Other Evaluation note* Diagnosis DIONNE (obstructive sleep [...] ureter documented in this encounter DARIUS PICHARDO [employer] Work Phone: evalesbbbt note* Diagnosis DIONNE (obstructive sleep apnea)- Primary Obstructive sleep apnea (adult) (pediatric) Encounter for laboratory testing for severe acute respiratory syndrome coronavirus 2 (SARS-CoV-2) Postoperative pain Other acute postoperative pain [facility]* Diagnosis DIONNE (obstructive sleep apnea)- Primary Obstructive sleep apnea (adult) (pediatric) documented in this [facility] assessment information [facility] Work Phone: Evaluation note* Diagnosis Obstructive [...] note* Diagnosis Dysuria documented in this encounter [facility] [employer] Phone: evaluation note* Diagnosis Post-operative state- Primary Other postprocedural status documented [facility]* Diagnosis Post-operative state- Primary Other postprocedural status [facility]* Diagnosis OAB (overactive bladder) Hypertonicity of bladder Urge incontinence Frequency of urination Urinary frequency documented in this encounter DARIUS JULIENPALLAVI [employer] Phone: evalkmlkja note* Diagnosis Onset Date Resolution Status Contact with and (suspected) exposure to covid-19 acute Influenza B noneactive Diarrhea acute Fecal urgency acute Alternating constipation and diarrhea acute Bloating acute Fecal urgency acute [facility] Work Phone: Evaluation note* Diagnosis Onset Date Resolution Status Constipation acute [facility] Work Phone: Evaluation note* Diagnosis Primary hypertension ([facility])- Primary Unspecified essential hypertension Hypokalemia Hypopotassemia Chronic diarrhea Diarrhea Weight loss, unintentional- Primary Loss of weight DIONNE (obstructive sleep apnea) Obstructive sleep apnea (adult) (pediatric) Primary hypertension ([facility]) Unspecified essential hypertension Chronic diarrhea Diarrhea Other microscopic colitis ([facility]) Bipolar II disorder ([facility]) Other bipolar disorders Hypokalemia Hypopotassemia Anxiety state ([facility]) Anxiety state, unspecified Pre-operative clearance- Primary Unspecified pre-operative examination Primary hypertension ([facility]) Unspecified essential hypertension Hypokalemia Hypopotassemia Other specified hypothyroidism ([facility]) Herpes zoster without complication- Primary Overweight (BMI 25.0-29.9) Overweight Primary hypertension ([facility])- Primary Unspecified essential hypertension Hypokalemia Hypopotassemia DIONNE (obstructive sleep apnea) Obstructive sleep apnea (adult) (pediatric) Other microscopic colitis ([facility]) Irritable bowel syndrome with diarrhea Irritable bowel syndrome Overweight (BMI 25.0-29.9) Overweight Generalized anxiety disorder with panic attacks ([facility]) Bipolar II disorder ([facility]) Other bipolar disorders Mixed hyperlipidemia ([facility]) Mixed hyperlipidemia [facility] Diagnosis Primary hypertension ([facility])- Primary Unspecified essential hypertension Hypokalemia Hypopotassemia Chronic diarrhea Diarrhea Weight loss, unintentional- Primary Loss of weight DIONNE (obstructive sleep apnea) Obstructive sleep apnea (adult) (pediatric) Primary hypertension ([facility]) Unspecified essential hypertension Chronic diarrhea Diarrhea Other microscopic colitis ([facility]) Bipolar II disorder ([facility]) Other bipolar disorders Hypokalemia Hypopotassemia Anxiety state ([facility]) Anxiety state, unspecified Pre-operative clearance- Primary Unspecified pre-operative examination Primary hypertension ([facility]) Unspecified essential hypertension Hypokalemia Hypopotassemia Other specified hypothyroidism ([facility]) Herpes zoster without complication- Primary Overweight (BMI 25.0-29.9) Overweight Primary hypertension ([facility])- Primary Unspecified essential hypertension Hypokalemia Hypopotassemia DIONNE (obstructive sleep apnea) Obstructive sleep apnea (adult) (pediatric) Other microscopic colitis ([facility]) Irritable bowel syndrome with diarrhea Irritable bowel syndrome Overweight (BMI 25.0-29.9) Overweight Generalized anxiety disorder with panic attacks ([facility]) Bipolar II disorder ([facility]) Other bipolar disorders Mixed hyperlipidemia ([facility]) Mixed hyperlipidemia Complex ovarian cyst Night sweats Generalized hyperhidrosis documented [facility]* Diagnosis Herpes zoster without complication- Primary Overweight (BMI 25.0-29.9) Overweight [facility]* Diagnosis Acute URI- Primary Acute upper respiratory infections of unspecified site Overweight (BMI 25.0-29.9) Overweight [facility]* Diagnosis Primary hypertension ([facility])- Primary Unspecified essential hypertension Hypokalemia Hypopotassemia Chronic diarrhea Diarrhea Weight loss, unintentional- Primary Loss of weight DIONNE (obstructive sleep apnea) Obstructive sleep apnea (adult) (pediatric) Primary hypertension ([facility]) Unspecified essential hypertension Chronic diarrhea Diarrhea Other microscopic colitis ([facility]) Bipolar II disorder ([facility]) Other bipolar disorders Hypokalemia Hypopotassemia Anxiety state ([facility]) Anxiety state, unspecified Pre-operative clearance- Primary Unspecified pre-operative examination Primary hypertension ([facility]) Unspecified essential hypertension Hypokalemia Hypopotassemia Other specified hypothyroidism ([facility]) Herpes zoster without complication- Primary Overweight (BMI 25.0-29.9) Overweight Primary hypertension ([facility])- Primary Unspecified essential hypertension Hypokalemia Hypopotassemia DIONNE (obstructive sleep apnea) Obstructive sleep apnea (adult) (pediatric) Other microscopic colitis (CMS/HCC) Irritable bowel syndrome with diarrhea Irritable bowel syndrome Overweight (BMI 25.0-29.9) Overweight Generalized anxiety disorder with panic attacks (CMS/HCC) Bipolar II disorder (CMS/HCC) Other bipolar disorders Mixed hyperlipidemia (CMS/HCC) Mixed hyperlipidemia Hypokalemia Hypopotassemia documented in this encounter [facility]* Diagnosis Dysuria documented in this encounter [facility] HealthHistory and physical note Author David Martinez [facility] August 08, 2023 12:30pm Note Date/Time August 08, 2023 12:30pm [facility] [address] [place] [address] Gastroenterology H&P Signed Patient: Isabelle Hewitt I MR#: [id number] : 1975 Acct:[id number] Age/Sex: 48 / F Adm Date: 3 Loc: Room: Type: [facility] Attending Dr: David Martinez MD Copies [...] signed by David Martinez MD> 08/08/23 1230 [facility] Work Phone: Hisemdk general Narrative - Reported* Type Description Date Medical History anxiety Medical History Hypertension Medical History sleep apnea Surgical History C section Surgical History cholecystectomy Hospitalization History see above Hospitalization History no history of ps ychiatric hospitalization, substance abuse, and suicide attempts, but she is history of ongoing treatment of depression and counseling for depression, anxiety Hospitalization History dehydration [place] Other Hiswzpu general Narrative - Reported* Type Description Date [...] counseling for depression, anxiety Hospitalization History dehydration [place] Other History of Present illness Narrative* Patient [...] office in 3 to 4 months follow-up [facility] Work Phone: History of Present illness [...] monitor blood pressure call if not better [facility] Siklu DO Work Phone: Hospital Discharge instructions Additional [...] in the office as scheduled -Office number [phone]. [facility] Work Phone: Reason for visit Narrative* Auth/Cert Specialty Diagnoses / Procedures Referred By Casper diaz Referred To Contact Diagnoses Kidney stone KIDNEY STONES Procedures MT CYSTO/URETERO W/LITHOTRIPSY &INDWELL STENT INSRT CYSTOSCOPY URETEROSCOPY LASER-WITH HLL Bertha Hirsch MD [address], [address] [place] [address] [employer] [address] [place] [address] Referral ID Status Reason Start Date Expiration Date Visits Re quested Visits Authorized [id number] 1 1 [employer] Phone: reason for visit Narrative* Auth/Cert Specialty Diagnoses / Procedures Referred By Casper Referred To Contact General Surgery Diagnoses DIONNE (obstructive sleep apnea) DIONNE (obstructive sleep apnea) [G47.33] Procedures PALATOPHARYNGOPLASTY UVULOPALATOPHARYNGOPLAS [place] [address] [employer] [place] [address] Phone: [phone] Referral ID Status Reason Start Date Expiration Date Visits Re quested Visits Authorized [id number] 3 [facility] N[facility]ative[facility] COVID TEST FOR PROCEDURE, [facility] COVID voluntary/travelNorth Arpe[place]i Other Family History No Family History Records [...] Advance Directives No March 22, 018 6:42am Date Activated Date Inactivated Comments 07/14/2022 3:16 PM 07/17/2022 2:43 PM Question Answer Comments Documentation of decision pr ocess for this code status: Patient and surrogate unable or unavailable to discuss. There is no previous documentation of code status. Defaulting to Full Code Date Activated Date Inactivated Comments 02/25/2022 6:15 PM 02/26/2022 4:28 PM Question Answer Comments Documentation of decision pr ocess for this code status: Discussed with patient or surrogate. This is the code status chosen by the patient/surrogate. Date Activated Date Inactivated Comments 01/05/2022 1:12 PM 01/05/2022 6:35 PM Chief Complaint and Reason for Visit Chief [...] Irritable bowel syndrome with diarrhea Microscopic colitis Chief Complaint Admit Date 1 month follow up June 11, 2024 3 :37pm 1 month follow up July 13, 2024 1:59pm inspire activation July 31, 2024 11:34am INSPIRE 1 MOTNTH September 04, 2024 9 :47am Reason for Visit Admit Date Fecal urgency June 11, 2024 3 :37pm Irritable bowel syndrome with diarrhea O ctober 2023 3:37pm Microscopic colitis June 11, 2024 3 :37pm Irritable bowel syndrome with diarrhea N ovember 2023 1:59pm BMI 27.0-27.9,adult July 31, 2024 11:34am Edentulous July 31, 2024 11:34am Encounter for adjustment and management of other implanted nervous system d July 31, 2024 11:34am Obstructive sleep apnea (adult) (pediatr ic) July 31, 2024 11:34am S/P placement of hypoglossal nerve stimu lator July 31, 2024 11:34am Chief Complaint Admit Date 1 month follow up July 13, 2024 1:59pm inspire activation July 31, 2024 11:34am INSPIRE 1 MOTNTH September 04, 2024 9 :47am follow up September 10, 2024 3 :11pm Reason for Visit Admit Date Irritable bowel syndrome with diarrhea N ovember 2023 1:59pm BMI 27.0-27.9,adult July 31, 2024 11:34am Edentulous July 31, 2024 11:34am Encounter for adjustment and management of other implanted nervous system d July 31, 2024 11:34am Obstructive sleep apnea (adult) (pediatr ic) July 31, 2024 11:34am S/P placement of hypoglossal nerve stimu lator July 31, 2024 11:34am BMI 27.0-27.9,adult September 04, 2024 9 :47am Edentulous September 04, 2024 9 :47am Encounter for adjustment and management of other implanted nervous system d September 04, 2024 9:47am Obstructive sleep apnea (adult) (pediatr ic) September 04, 2024 9:47am S/P placement of hypoglossal nerve stimu lator September 04, 2024 9:47am Irritable bowel syndrome with diarrhea J anuary 2024 3:11pm Reason for Referral Specialty Diagnoses / Procedures Referred By Casper diaz Referred To Contact Oral Surgery Diagnoses DIONNE (obstructive sleep apnea) Yi Moreno MD [address] [place] [address] Rikki Rodrigues DMD, MD [address] [place] [address] Referral ID Status Reason Start Date Expiration Date V isits Requested Visits Authorized [id number] Pending Review 05/26/2022 05/26/2023 3 3 Scheduling Instructions Please call the instrumentation and controls designer Clinic at [facility] at to schedule an appointment if one was not made for you today. Question Answer Patient to be evaluated for: Orthognathic/Jaw Surgery Additional Source Comments INFORMATION SOURCE (unrecogn ized section and content) DATE CREATED AUTHOR 12/03/2021 [employer] DATE CREATED AUTHOR AUTHOR'S ORGANIZ ATION 01/31/2023 [facility] DATE CREATED AUTHOR AUTHOR'S ORGANIZ ATION [facility]/31[facility]2023 [facility] DATE CREATED AUTHOR AUTHOR'S ORGANIZ ATION 06/12/2024 [facility] DATE CREATED AUTHOR AUTHOR'S ORGANIZ ATION 07/18/2024 [facility] DATE CREATED AUTHOR AUTHOR'S ORGANIZ ATION 07/20/[address] [facility] DATE CREATED AUTHOR AUTHOR'S ORGANIZ ATION 08/08/2024 [facility] EPIC DATE CREATED AUTHOR AUTHOR'S ORGANIZ ATION 09/15/2024 [facility] Care Teams (unrecognized sec tion and content) Team Status: Active Member Role Status Dates Gena Kirby Primary Care Provider Active Team Status: Inactive Member Role Status Dates Gena Kirby Primary Care Provider Active Yi Moreno MD Referring Provider Active Wiley Mcmanus MD Attending Provider Active Motor Vehicle Assembler Relationship Specialty Start Date End Date Gena Kirby [address] [place] [address] PCP - General Nurse Practitioner 11/30/21 Motor Vehicle Assembler Relationship Specialty Start Date End Date Gena Kirby [address] [place] [address] PCP - General Nurse Practitioner 11/30/21 Motor Vehicle Assembler Relationship Specialty Start Date End Date Gena Kirby [address] [place] [address] PCP - General Nurse Practitioner 11/30/21 Motor Vehicle Assembler Relationship Specialty Start Date End Date Yi Moreno MD [address] [place] [address]1674 Physician Otolaryngology 01/23/22 Motor Vehicle Assembler Relationship Specialty Start Date End Date Yi Moreno MD [address] [place] [address] 98911 Physician Otolaryngology 01/23/22 Motor Vehicle Assembler Relationship Specialty Start Date End Date Yi Moreno MD [address] [place] [address] 05482 Physician Otolaryngology 01/23/22 Motor Vehicle Assembler Relationship Specialty Start Date End Date Yi Moreno MD [address] [place] [address] 67527 Physician Otolaryngology 01/23/22 Motor Vehicle Assembler Relationship Specialty Start Date End Date Gena Kirby [address] [place] [address] PCP - General Nurse Practitioner 11/30/21 Motor Vehicle Assembler Relationship Specialty Start Date End Date Yi Moreno MD [address] [place] [address] 67744 Physician Otolaryngology 01/23/22 Motor Vehicle Assembler Relationship Specialty Start Date End Date Yi Moreno MD [address] [place] [address] 34599 Physician Otolaryngology 01/23/22 Motor Vehicle Assembler Relationship Specialty Start Date End Date Yi Moreno MD [address] [place] [address] 69279 Physician Otolaryngology 01/23/22 Motor Vehicle Assembler Relationship Specialty Start Date End Date Yi Moreno MD [address] [place] [address] 48290 Physician Otolaryngology 01/23/22 Team Status: Inactive Member Role Status Dates Gena Kirby Primary Care Provider Active Wiley Mcmanus MD Attending Provider Active Yi Moreno MD Referring Provider Active Motor Vehicle Assembler Relationship Specialty Start Date End Date Yi Moreno MD [address] [place] [address] 76743 Physician Otolaryngology 01/23/22 Motor Vehicle Assembler Relationship Specialty Start Date End Date Yi Moreno MD [address] [place] [address] 45153 Physician Otolaryngology 01/23/22 Rikki Rodrigues DMD, MD [address] [place] [address] 69938 Physician Oral & Maxillofacial Surgery 06/26/22 Motor Vehicle Assembler Relationship Specialty Start Date End Date Yi Moreno MD [address] [place] [address] 76899 Physician Otolaryngology 01/23/22 Motor Vehicle Assembler Relationship Specialty Start Date End Date Yi Moreno MD [address] [place] [address] 84368 Physician Otolaryngology 01/23/22 Rikki Rodrigues DMD, MD [address] [place] [address] 81234 Physician Oral & Maxillofacial Surgery 06/26/22 Motor Vehicle Assembler Relationship Specialty Start Date End Date Yi Moreno MD [address] [place] [address] 07681 Physician Otolaryngology 01/23/22 Rikki Rodrigues DMD, MD [address] [place] [address] 16859 Physician Oral & Maxillofacial Surgery 06/26/22 Motor Vehicle Assembler Relationship Specialty Start Date End Date Yi Moreno MD [address] [place] [address] 55561 Physician Otolaryngology 01/23/22 Rikki Rodrigues DMD, MD [address] [place] [address] 99774 Physician Oral & Maxillofacial Surgery 06/26/22 Motor Vehicle Assembler Relationship Specialty Start Date End Date Yi Moreno MD [address] [place] [address] 06426 Physician Otolaryngology 01/23/22 Motor Vehicle Assembler Relationship Specialty Start Date End Date Yi Moreno MD [address] [place] [address] 34458 Physician Otolaryngology 01/23/22 Rikki Rodrigues DMD, MD [address] [place] [address] 00033 Physician Oral & Maxillofacial Surgery 06/26/22 Motor Vehicle Assembler Relationship Specialty Start Date End Date Yi Moreno MD [address] [place] [address] 55877 Physician Otolaryngology 01/23/22 Rikki Rodrigues DMD, MD [address] [place] [address] 64946 Physician Oral & Maxillofacial Surgery 06/26/22 Motor Vehicle Assembler Relationship Specialty Start Date End Date Yi Moreno MD [address] [place] [address] 75735 Physician Otolaryngology 01/23/22 Rikki Rodrigues DMD, MD [address] [place] [address] 20315 Physician Oral & Maxillofacial Surgery 06/26/22 Motor Vehicle Assembler Relationship Specialty Start Date End Date Yi Moreno MD [address] [place] [address] 19909 Physician Otolaryngology 01/23/22 Rikki Rodrigues DMD, MD [address] [place] [address] 53985 Physician Oral & Maxillofacial Surgery 06/26/22 Motor Vehicle Assembler Relationship Specialty Start Date End Date Yi Moreno MD [address] [place] [address] 78800 Physician Otolaryngology 01/23/22 Rikki Rodrigues DMD, MD [address] [place] [address] 75565 Physician Oral & Maxillofacial Surgery 06/26/22 Gena Holbrook APRN-CLEANING LABORER [address] [place] [address] 90712 PRIVATE EQUITY ANALYST Anesthesiology 07/24/22 Motor Vehicle Assembler Relationship Specialty Start Date End Date Yi Moreno MD [address] [place] [address] 20413 Physician Otolaryngology 01/23/22 Rikki Rodrigues DMD, MD [address] [place] [address] 80749 Physician Oral & Maxillofacial Surgery 06/26/22 Gena Holbrook APRN-CLEANING LABORER [address] [place] [address] 77843 PRIVATE EQUITY ANALYST Anesthesiology 07/24/22 Motor Vehicle Assembler Relationship Specialty Start Date End Date Gena Kirby [facility] [place] [address] PCP - General Nurse Practitioner 11/30/21 Motor Vehicle Assembler Relationship Specialty Start Date End Date Yi Moreno MD [address] [place] [address] 72613 Physician Otolaryngology 01/23/22 Rikki Rodrigues DMD, MD [address] [place] [address] 42359 Physician Oral & Maxillofacial Surgery 06/26/22 Gena Holbrook APRN-CLEANING LABORER [address] [place] [address] 66474 PRIVATE EQUITY ANALYST Anesthesiology 07/24/22 Motor Vehicle Assembler Relationship Specialty Start Date End Date Yi Moreno MD [address] [place] [address] 17981 Physician Otolaryngology 01/23/22 Rikki Rodrigues DMD, MD [address] [place] [address] 12322 Physician Oral & Maxillofacial Surgery 06/26/22 Gena Holbrook APRN-CLEANING LABORER [address] [place] [address] 58369 PRIVATE EQUITY ANALYST Anesthesiology 07/24/22 Motor Vehicle Assembler Relationship Specialty Start Date End Date Gena Kirby [address] [facility] [place] [address] PCP - General Nurse Practitioner 11/30/21 Motor Vehicle Assembler Relationship Specialty Start Date End Date Yi Moreno MD [address] [place] [address] 60544 Physician Otolaryngology 01/23/22 Rikki Rodrigues DMD, MD [address] [place] [address] 76778 Physician Oral & Maxillofacial Surgery 06/26/22 Gena Holbrook APRN-CLEANING LABORER [address] [place] [address] 57698 PRIVATE EQUITY ANALYST Anesthesiology 07/24/22 Team Status: Inactive Member [...] June 11, 2024 End: June 11, 2024 Motor Vehicle Assembler Relationship Specialty Start Date End Date Magdiel Munoz MD [address] [place] [address] PCP - General Family Medicine 03/18/23 Gena Kirby, BAR WAITER/WAITRESS [address] [place] [address] Referring Physician Nurse Practitioner 03/18/23 Motor Vehicle Assembler Relationship Specialty Start Date End Date Magdiel Munoz MD [address] [place] [address] PCP - General Family Medicine 03/18/23 Gena Kirby, BAR WAITER/WAITRESS [address] [place] [address] Referring Physician Nurse Practitioner 03/18/23 Motor Vehicle Assembler Relationship Specialty Start Date End Date Yi Moreno MD [address] [place], [place] [id number] Physician Otolaryngology 01/23/22 Rikki Rodrigues DMD, MD [address] [place] [address] Physician Oral & Maxillofacial Surgery 06/26/22 Gena Holbrook APRN-CLEANING LABORER [address] [place] [address] PRIVATE EQUITY ANALYST Anesthesiology 12/3/22 Motor Vehicle Assembler Relationship Specialty Start Date End Date Magdiel Munoz MD [address] [place] [address] PCP - General Family Medicine 03/18/23 Gena Kirby NP [address] [place] [address] Referring Physician Nurse Practitioner 03/18/23 Motor Vehicle Assembler Relationship Specialty Start Date End Date Magdiel Munoz MD [address] [place] [address] PCP - General Family Medicine 03/18/23 Gena Kirby NP [address] [place] [address] Referring Physician Nurse Practitioner 03/18/23 Motor Vehicle Assembler Relationship Specialty Start Date End Date Magdiel Munoz MD [address] [place] [address] PCP - General Family Medicine 03/18/23 Gena Kirby NP [address] [place] [address] Referring Physician Nurse Practitioner 03/18/23 Motor Vehicle Assembler Relationship Specialty Start Date End Date Magdiel Munoz MD [address] [place] [address] PCP - General Family Medicine 03/18/23 Gena Kirby NP [address] [place] [address] Referring Physician Nurse Practitioner 03/18/23 Motor Vehicle Assembler Relationship Specialty Start Date End Date Magdiel Munoz MD [address] [place] [address] PCP - General Family Medicine 03/18/23 Gena Kirby NP [address] [place] [address] Referring Physician Nurse Practitioner 03/18/23 Motor Vehicle Assembler Relationship Specialty Start Date End Date Magdiel Munoz MD [address] [place] [address] PCP - General Family Medicine 03/18/23 Gena Kirby NP [address] [place] [address] Referring Physician Nurse Practitioner 03/18/23 Team Status: Inactive Member Role Status Dates Gena Kirby Primary Care Provider Active Sta rt: July 13, 2024 End: July 13, 2024 Majo Lyman APRN Attending Provider Active Start: July 13, 2024 End: July 13, 2024 Team Status: Inactive Member Role Status Dates Gena Kirby Primary Care Provider Active Sta rt: July 31, 2024 End: July 31, 2024 Wiley Mcmanus MD Attending Provider Active S tart: July 31, 2024 End: July 31, 2024 Team Status: Inactive Member Role Status Dates Gena Kirby Primary Care Provider Active Sta rt: September 04, 2024 End: September 04, 2024 Wiley Mcmanus MD Attending Provider Active S tart: September 04, 2024 End: September 04, 2024 Motor Vehicle Assembler Relationship Specialty Start Date End Date Magdiel Munoz MD [address] [place] [phone] PCP - General Family Medicine 03/18/23 Gena Kirby NP [address] [place] [phone] Referring Physician Nurse Practitioner 03/18/23 Team Status: Inactive Member Role Status Dates Gena Kirby Primary Care Provider Active Sta rt: September 10, 2024 End: September 10, 2024 Majo Lyman APRN Attending Provider Active Start: September 10, 2024 End: September 10, 2024 Motor Vehicle Assembler Relationship Specialty Start Date End Date Magdiel Munoz MD [address] [place] [phone] PCP - General Family Medicine 03/18/23 Gena Kirby NP [address] [place] [address] Referring Physician Nurse Practitioner 03/18/23 Motor Vehicle Assembler Relationship Specialty Start Date End Date Gena Kirby APRN - BAR WAITER/WAITRESS [address] [place] [address] PCP - General Nurse Practitioner 11/30/21 Scheduled Active and Recently Administ ered Medications [...] IVPB 400 mg (COMPLETED) 400 mg, IntraVENous, METER TESTER POLYPHASE TO O.R., 1 dose, On Tue01/05/22 at [...] on Tue02/25/22 at 2200, Until Discontinued, Post-op 2099 (Given - Provider: Ashvin Mims) 0 (Due) sucralfate (CARAFATE) 1 GM/10ML oral suspension 1 g, Oral, 4 TIMES DAILY BEFORE MEALS & AT BEDTIME, First dose on Tue02/25/22 at 1700, Until Discontinued, Post-op 1700 (Hold/Not Given - Provider: Jerel Pittman RN - Reason: Patient refused)2099 (Given - Provider: Ashvin Mims) 0850 (Given - Provider: Iglesia Amin RN)1206 (Given - Provider: Iglesia Amin RN)1700 (Due)2200 (Due) tamsulosin (FLOMAX) capsule 0.4 mg, Oral, DAILY, First dose on Christen 02/25/22 at 1430, Until Discontinued, Post-op 1430 (Hold/Not [...] on Christen 02/25/22 at 0830, Until Discontinued 184 (IV New [...] Post-op 1439 (Given - Provider: Ailyn Son, JUDSON)1842 (Given - Provider: Ashvin Mims) Scheduled Medication Order 07/15/2022 07/16/2022 07/17/2022 acetaminophen (TYLENOL) 650 MG/20.3ML oral solution SF 650 mg, Oral, EVERY 4 HOURS, First dose on Christen 07/15/22 at 0830, Until Discontinued 0830 (Hold/Not Given - Provider: Lauren Crawford RN - Reason: Clinical contraindications)11 59 (Given - Provider: Lauren Crawford RN)1553 (Given - Provider: Lauren Crawford RN)2123 (Given - Provider: Lemuel Gilbert, RN) 0030 (Hold/Not Given - Provider: Donya Lam RN - Reason: Patient sleeping)0348 (Given - Provider: Donya Lam RN)0811 (Given - Provider: Linh Fregoso, JUDSON)1226 (Given - Provider: Linh Fregoso, RN)1704 (Given - Provider: Cleo Tao RN)2044 (Given - Provider: Lola Wyatt, JUDSON)2100 (Hold/Not Given - Provider: Lola Wyatt RN - Reason: Previously Administered) 0206 (Given - Provider: Lola Wyatt RN)0542 (Hold/Not Given - Provider: Lola Wyatt RN - Reason: Patient refused)0916 (Given - Provider: Penny Brown RN)1400 (Due - Provider: Dulce Olson formerly [facility])1800 (Due - Provider: Dulce Olson formerly [facility])2200 (Due - Provider: Dulce Olson formerly [facility]) acetaminophen (TYLENOL) tablet (CANCELED) 650 mg, Oral, [...] RN)1000 (Hold/Not Given - Provider: Penny Brown, JUDSON - Reason: Loss of IV access)1600 (Due)2200 (Due) atenolol (TENORMIN) tablet (CANCELED) 100 mg, Oral, DAILY, First dose on Tue07/14/22 at 1800, Until Discontinued, ICU/Step Down 0800 (Given - Provider: Lauren Crawford RN) atorvastatin (LIPITOR) tablet 20 mg, Oral, DAILY, First dose on Tue07/14/22 at 1800, Until Discontinued, ICU/Step Down 0800 (Given - Provider: Lauren Crawford RN) 0811 (Given - Provider: Linh Fregoso, JUDSON) 0916 (Given - Provider: Penny Brown RN) chlorhexidine (PERIDEX) 0.12 % oral solution 15 mL, Swish & Spit, 2 TIMES DAILY, First dose on Tue07/14/22 at 1530, Until Discontinued, ICU/Step Down 0900 (Given - Provider: Lauren Crawford RN)2100 (Given - Provider: Lemuel Gilbert RN) 0811 (Given - Provider: Linh Fregoso RN)2043 (Given - Provider: Lola Wyatt RN) 0916 (Given - Provider: Penny Brown RN)2100 (Due) dexamethasone (DECADRON) 4 MG/ML injection (COMPLETED) 8 mg, Intravenous Push, EVERY 8 HOURS, 3 doses, First dose on Tue07/14/22 at 1530, Last dose on Tue07/15/22 at 0900, ICU/Step Down 0109 (Given - Provider: Alon Cotton RN)0800 (Given - Provider: Lauren Crwaford RN) dextrose 5 % and sodium chloride 0.45 % iv bolus (COMPLETED) 500 mL, at 50 mL/hr, Intravenous, FLUID BOLUS, 1 dose, On Tue07/16/22 at 0930 0959 (IV New Bag - Provider: Linh Fregoso RN) docusate sodium (COLACE) capsule 100 mg, Oral, 2 TIMES DAILY, First dose on Tue07/14/22 at 1530, Until Discontinued, ICU/Step Down 0800 (Given - Provider: Lauren Crawford RN)2124 (Given - Provider: Lemuel Gilbert RN) 0811 (Given - Provider: Linh Fregoso RN)2045 (Hold/Not [...] Down 0800 (Given - Provider: Lauren Crawford RN)2122 (Given - Provider: Lemuel Gilbert RN) 0811 (Given - Provider: Linh Fregoso RN)2043 (Given - Provider: Lola Wyatt RN) 0916 [...] Fregoso, JUDSON) 0916 (Given - Provider: Penny Brown RN) OLANZapine (ZyPREXA ZYDIS) disintegrating tablet 10 mg, Oral, AT BEDTIME, First dose on Tue07/15/22 at 2200, Until Discontinued 4 (Given - Provider: Lemuel Gilbert RN) 2044 (Given - Provider: Lola Wyatt RN)2100 (Hold/Not Given - Provider: Lola Wyatt RN - Reason: Previously Administered) 2200 (Due) oxybutynin (DITROPAN) 5 MG tablet 5 mg, Oral, 3 TIMES DAILY, First dose on Tue07/14/22 at 1800, Until Discontinued, ICU/Step Down 0625 (Given - Provider: Alon Cotton, JUDSON)1315 (Given - Provider: Lauren Crawford, JUDSON)2124 (Given - Provider: Lemuel Gilbert RN) 0655 (Given - Provider: Donya Lam [...] 4,5,6) 1704 (Given - Provider: Cleo Tao, JUDSON) 0409 (Given - Provider: Lola Wyatt RN) [...] Cotton RN)0800 (Given - Provider: Lauren Crawford, JUDSON) oxymetazoline (AFRIN) 0.05 % nasal solution 2 Hills, Nasal, EVERY 4 HOURS PRN, Starting on Tue07/14/22 at 1516, Until Discontinued, Nosebleed, ICU/Step Down sodium chloride (OCEAN) 0.65 % nasal spray 1 Hills, Nasal, EVERY 1 HOUR PRN, Starting on Tue07/14/22 at 1516, Until Discontinued, Congestion, Congestion due to dryness, ICU/Step Down Reason for Visit (unrecogniz ed section and content) Reason Comments New patient, to establish relationship S leep Apnea, Inspire Specialty Diagnoses / Procedures Referred By Casper t Referred To Contact Ent-Otolaryngology Diagnoses Sleep apnea, unspecified type Wiley Mcmanus MD [address] [place] [address] [facility] [address] [place] [address] Referral ID Status Reason Start Date Expiration Date Visits Requested Visits Authorized [id number] Pending Review Transfer of Care-[facility] 01/01/2022 01/01/2023 3 3 Reason Onset [...] DIONNE (obstructive sleep apnea) Yi Moreno MD [address] [place] [address] Rikki Rodrigues DMD, MD [address] [place] [address] Referral ID Status Reason Start Date Expiration Date V isits Requested Visits Authorized [id number] Pending Review 05/26/2022 05/26/2023 3 3 Reason [...] SAGITTAL SPLIT, BILATERAL Rikki Rodrigues DMD, MD [address] [place] [address] [facility] [address] [place] [address] Phone: [phone] Referral ID Status Reason Start Date Expiration Date Visits Re quested Visits Authorized [id number] 3 3 Reason Comments Post Op Check Reason Comments Menopause Reason Onset Date Comments Med Refill 09/04/2024 Reason Comments Med Refill Goals (unrecognized section and content) Goals may [...] BE BASED ON THE PRIMARY CLINICAL RECORDS. [facility]. provides no warranty or guarantee of the accuracy or completeness of information in this document.
[2024-09-18 17:06] LABS: Basophils Percent Auto 0.5 % (0.2-2.0); Hemoglobin 15.8 g/dL (12.0-16.0); Immature Granulocytes Abs Auto 0.01 10^3/uL (0.00-0.03); Immature Granulocytes Pct Auto 0.2 % (0.0-0.5); Lymphocytes Absolute Auto 1.2 10^3/uL (1.2-3.8); Lymphocytes Percent Auto 26.7 % (20.5-60.0); Mean Corpuscular HGB Conc 34.3 g/dL (29.9-35.2); Mean Corpuscular Hemoglobin 31.7 pg (26.7-34.0); Mean Corpuscular Volume 92.4 fL (81.0-99.0); Mean Platelet Volume 11.1 fL (9.5-13.5); Monocytes Absolute Auto 0.4 10^3/uL (0.3-0.8); Monocytes Percent Auto 8.4 % (1.7-12.0); Neutrophils Absolute Auto 2.8 10^3/uL (1.4-6.5); Neutrophils Percent Auto 64.2 % (43.0-75.0); Platelet Count 178 10^3/uL (150-450); Red Blood Count 4.98 10^6/uL (4.20-5.40); Red Cell Distribution Width 11.8 % (11.0-15.0); White Blood Count 4.4 10^3/uL (4.0-11.0)
[2024-09-18] MEDS: ONDANSETRON PF 4 MG/2 ML VIAL IV (17:13)
[2024-09-18] MEDS: 0.9 % SODIUM CHLORIDE 1,000 ML 1000 ML IV (17:13)
[2024-09-18 17:15] LABS: Anion Gap 18.5; Calcium 9.2 mg/dL (8.5-10.1); Carbon Dioxide 26.1 mmol/L (21.0-32.0); Chloride 98 mmol/L (98-107); Estimated GFR (African America >60 (>=60 mL/min/1.73m^2); Estimated GFR (Non-African Ame 59 (>=60 mL/min/1.73m^2); Glucose 80 mg/dL (74-106); Potassium 3.6 mmol/L (3.5-5.1); Sodium 139 mmol/L (136-145)
[2024-09-18] MEDS: KETOROLAC TROMETHAMINE 30 MG/ML VIAL IVP (17:25)
--- NOTE | 2024-09-18 18:20 | ECG_ITS ---
[facility] Test Date: 2024-09-18 Pat Name: VEDA HEWITT Department: Room: - Gender: Female Worship Pastor: : 1975 Requested By: YVES THURSTON Order Number: [id number] Reading MD: BENJAMIN BOOKER Measurements Intervals [place] Rate: 69 P: 17 KS: 122 QRS: 83 QRSD: 74 T: 150 QT: 350 QTc: 369 Interpretive Statements 1100 Sinus rhythm 4068 Nonspecific Twave abnormality 9130 borderline ECG Compared to ECG 03/23/2023 13:18:08 Ventricular premature complex(es) no longer present T-wave abnormality no longer present Electronically Signed On 09-24-2024 18:28:14 EST by BENJAMIN BOOKER
[2024-09-18 18:26] LABS: Bilirubin Urine SMALL (NEGATIVE); Blood Urine LARGE (NEGATIVE); Clarity Urine SL CLOUDY (CLEAR); Color Urine YELLOW (YELLOW); Glucose Urine UA NEGATIVE (NEGATIVE); Ketones Urine 40 mg/dL (NEGATIVE); Leukocyte Esterase Urine TRACE (NEGATIVE); Nitrite Urine NEGATIVE (NEGATIVE); Protein Urine 100 mg/dL (NEG/TRACE); Specific Gravity Urine 1.025 (1.005-1.025); Urobilinogen Urine 0.2 EU/dL (0.2-1.0)
[2024-09-18 18:35] LABS: Bacteria Urine SMALL #/HPF (NONE SEEN); Cast Seen? SEEN #/LPF (NONE SEEN); Crystals Seen? None Seen #/HPF (None Seen); Hyaline Casts Urine RARE; Mucus Urine TRACE (NONE SEEN); RBC Urine 50-75 #/HPF (0-2); Squamous Epithelial Cell Urine MODERATE #/LPF (NONE/RARE); Urine Culture Indicated YES
--- NOTE | 2024-09-18 18:42 | CT_ITS ---
[address] [address] Patient Name: VEDA HEWITT MRN: [facility]:[id number] date: 1975 Sex: F Assigned Patient Location: ER Current Patient Location: ED.MAIN Accession/Order Number: [id number] Exam Date: 09/18/2024 18:57 Report Date: 09/18/2024 19:54 At the request of: SHERIF LOUIS Procedure: CT abdomen pelvis wo con EXAM: CT abdomen pelvis wo con HISTORY: Back pain, rule out COMPARISON: 12/04/2021 and earlier TECHNIQUE: CT abdomen pelvis without contrast. Axial scans with reformatted coronal and sagittal images. Individualized radiation dose reduction used for this exam. FINDINGS: Lower chest: Prominent markings left lung base most consistent with atelectasis. Right lung base clear. No pleural effusion. ABDOMEN: Noncontrast liver unremarkable. Previous cholecystectomy. No biliary dilatation. Adrenal glands, pancreas, spleen unremarkable. No ascites or free fluid in the abdomen. No adenopathy. Normal size aorta without plaque. Left renal parenchymal thinning scarring and atrophy similar previous, length 7.6 cm. Coarse calcification upper pole approximately 6.5 mm unchanged no ureteral calculus or hydronephrosis Normal-appearing right kidney and ureter without renal or ureteral calculus. Right renal length 10 cm. Moderate to large amount gas and fluid throughout the colon most prominent in the cecum which lies low in the pelvis near the bladder and uterus. No pericolonic fluid or inflammation. Prominent gas in the rectum. Appendix not clearly visualized but no adjacent inflammation seen. Unremarkable stomach and small bowel. Pelvis: No mass or adenopathy or free fluid. No uterine or adnexal pathology. MUSCULOSKELETAL: No suspicious bone lesion. CT/CT abdomen pelvis wo con IMPRESSION: 1. Atrophic scarred left kidney with calcification upper pole unchanged. No ureteral calculus or hydronephrosis right or left. 2. Moderate to large amount gas and stool throughout colon. Fluid most prominent within the cecum and ascending colon, rectum distended with gas. Unremarkable small bowel and stomach. Electronically authenticated by: TARUN BLANCO Date: 09/18/2024 19:54
== END 2024-09-18 20:30 | disposition home or self-care (01) ==
PROVIDERS: Emergency Medicine; Emergency Provider Emergency Medicine; PCP Nurse Practitioner
DX: K59.00 Constipation, unspecified (principal); R53.1 Weakness; M54.9 Dorsalgia, unspecified; Z90.49 Acquired absence of other specified parts of digestive tract
CPT/HCPCS: 36415; 74176; 80048; 81001; 85025; 87086; 93005; 96361; 96374; 96375; 99285; J1885; J2405

== ENCOUNTER 2024-09-25 15:48 | Outpatient (OUT) | payer OTHER, SELFPAY ==
--- NOTE | 2024-09-25 15:52 | XR_ITS ---
The [address] [address] Patient Name: VEDA HEWITT MRN: [id number] date: 1975 Sex: F Assigned Patient Location: LAB Current Patient Location: Accession/Order Number: [id number] Exam Date: 09/25/2024 15:58 Report Date: 09/27/2024 10:33 At the request of: LARRY VEGA Procedure: XR acute abdomen series EXAMINATION: XR acute abdomen series HISTORY: Generalized abdominal Pain, Subacute Cough COMPARISON: No relevant comparison available. FINDINGS: LUNGS: No infiltrate, pneumothorax, or pleural effusion. MEDIASTINUM: No abnormal widening. BOWEL GAS PATTERN: Non-obstructed. Scattered air-fluid levels FREE AIR: None. CALCIFICATIONS: None significant. BONES: No fracture or visible bone lesion. OTHER: Neurostimulator projects over the right chest, 2 leads, one extending off the field of view and a lead extending to the right lateral chest. XR/XR acute abdomen series IMPRESSION: Clear lungs Scattered air-fluid levels with an overall nonobstructive bowel gas pattern. Consider enteritis Electronically authenticated by: WILEY POE Date: 09/27/2024 10:33
[2024-09-25 16:27] LABS: Basophils Percent Auto 0.5 % (0.2-2.0); Eosinophils Absolute Auto 0.1 10^3/uL (0.0-0.7); Eosinophils Percent Auto 2.1 % (0.9-7.0); Hematocrit 42.5 % (36.0-48.0); Hemoglobin 14.2 g/dL (12.0-16.0); Immature Granulocytes Abs Auto 0.02 10^3/uL (0.00-0.03); Immature Granulocytes Pct Auto 0.3 % (0.0-0.5); Lymphocytes Absolute Auto 2.1 10^3/uL (1.2-3.8); Lymphocytes Percent Auto 33.6 % (20.5-60.0); Mean Corpuscular HGB Conc 33.4 g/dL (29.9-35.2); Mean Corpuscular Hemoglobin 31.3 pg (26.7-34.0); Mean Corpuscular Volume 93.6 fL (81.0-99.0); Mean Platelet Volume 10.7 fL (9.5-13.5); Monocytes Absolute Auto 0.4 10^3/uL (0.3-0.8); Neutrophils Absolute Auto 3.7 10^3/uL (1.4-6.5); Neutrophils Percent Auto 57.5 % (43.0-75.0); Platelet Count 276 10^3/uL (150-450); Red Blood Count 4.54 10^6/uL (4.20-5.40); Red Cell Distribution Width 11.5 % (11.0-15.0); White Blood Count 6.3 10^3/uL (4.0-11.0)
[2024-09-25 16:30] LABS: Bilirubin Urine NEGATIVE (NEGATIVE); Blood Urine NEGATIVE (NEGATIVE); Clarity Urine CLEAR (CLEAR); Color Urine YELLOW (YELLOW); Glucose Urine UA NEGATIVE (NEGATIVE); Ketones Urine NEGATIVE (NEGATIVE); Leukocyte Esterase Urine NEGATIVE (NEGATIVE); Nitrite Urine NEGATIVE (NEGATIVE); Protein Urine NEGATIVE (NEG/TRACE); Urobilinogen Urine 0.2 EU/dL (0.2-1.0); pH Urine 5.5 (5.0-9.0)
[2024-09-25 16:45] LABS: Bacteria Urine TRACE #/HPF (NONE SEEN); RBC Urine NONE SEEN #/HPF (0-2); WBC Urine NONE SEEN #/HPF (NONE SEEN)
[2024-09-25 16:46] LABS: Cast Seen? NONE SEEN #/LPF (NONE SEEN); Crystals Seen? None Seen #/HPF (None Seen); Mucus Urine TRACE (NONE SEEN); Squamous Epithelial Cell Urine MODERATE #/LPF (NONE/RARE); Urine Culture Indicated ALREADY ORDERED
[2024-09-25 16:58] LABS: Alanine Aminotransferase 30 U/L (14-59); Albumin Globulin Ratio 0.9; Albumin Level 3.6 g/dL (3.4-5.0); Alkaline Phosphatase 99 U/L (46-116); Amylase 57 U/L (25-115); Aspartate Amino Transferase 24 U/L (15-37); BUN Creatinine Ratio 2.1; Bilirubin Total 0.5 mg/dL (0.2-1.0); Calcium 8.8 mg/dL (8.5-10.1); Carbon Dioxide 33.6 mmol/L (21.0-32.0); Chloride 103 mmol/L (98-107); Estimated GFR (African America >60 (>=60 mL/min/1.73m^2); Estimated GFR (Non-African Ame >60 (>=60 mL/min/1.73m^2); Glucose 102 mg/dL (74-106); Potassium 3.6 mmol/L (3.5-5.1); Sodium 142 mmol/L (136-145); Total Protein 7.6 g/dL (6.4-8.2)
== END 2024-09-25 15:49 | disposition home or self-care (01) ==
LOC: LAB 15:48
PROVIDERS: PCP Nurse Practitioner; Visit Provider Nurse Practitioner
DX: R10.84 Generalized abdominal pain (principal); R05.2 Subacute cough
CPT/HCPCS: 36415; 74022; 80053; 81001; 82150; 83690; 85025; 87086; 87186

== ENCOUNTER 2024-11-09 14:27 | Outpatient (OUT) | payer OTHER, SELFPAY ==
--- NOTE | 2024-11-09 14:30 | XR_ITS ---
The [place] [id number] Patient Name: VEDA HEWITT MRN: [id number] date: 1975 Sex: F Assigned Patient Location: [facility] Current Patient Location: [facility] Accession/Order Number: [id number] Exam Date: 11/09/2024 14:43 Report Date: 11/09/2024 14:44 At the request of: LARRY VEGA NP Procedure: XR shoulder RT min 2V RIGHT SHOULDER - - 3 views CLINICAL HISTORY: Acute Pain Right Shoulder COMPARISON: Mild degenerative changes of the AC and glenohumeral joints without acute bony process. FINDINGS: Mild degenerative changes of the right shoulder without acute bony process. XR/XR shoulder RT min 2V IMPRESSION: No acute bony process. Impression dictated by: Obdulio Mejia Jr., DBradOBrad11/09/2024 2:44 PM Dictation Location: [place] [address] Electronically authenticated by: [id number] Y Date: 11/09/2024 14:44
== END 2024-11-09 14:28 | disposition home or self-care (01) ==
LOC: RAD 14:28
PROVIDERS: PCP Nurse Practitioner; Visit Provider Nurse Practitioner
DX: M25.511 Pain in right shoulder (principal)
CPT/HCPCS: 73030

== ENCOUNTER 2024-11-22 18:08 | Outpatient (REF) | payer OTHER, SELFPAY | END 2024-11-22 18:09 | disposition home or self-care (01) | LOC: LAB 18:08 | PROVIDERS: PCP Nurse Practitioner; Visit Provider Physician Assistant | DX: Z01.419 Encounter for gynecological examination (general) (routine) without abnormal findings (principal) | CPT/HCPCS: 87624; 88175 ==

== ENCOUNTER 2025-04-13 23:14 | Emergency (ER) | payer OTHER, SELFPAY ==
[2025-04-13 23:19] VITALS: BP 139/96; PULSE 86; TEMP 36.6; O2SAT 100; BMI 18.9
--- OUTSIDE RECORDS SUMMARY | 2025-04-13 23:22 | XMS_ITS | CCD ---
Author Organization [facility] Care Team Providers Care Lettuce Trimmer Name Role Phone Larry Kirby Unavailable Unavailable Unavailable Larry Kirby Primary Care Provider Unavailable Primary Care Provider Unavailabl e Yi Moreno MD Unavailable Wiley Mcmanus Unavailable Yi Moreno MD Unavailable Larry Kirby Primary Care Provider MD Wiley Mcmanus Attending Provider [phone] MD Yi Moreno Referring Provider Isabel Sin Unavailable Matthew RITCHIE MD, Justin Unavailable Larry Corrales Unavailable [phone] Larry Kirby Primary Care Provider Yi Moreno MD Unavailable Matthew RITCHIE MD, Justin Unavailable [phone] Larry Corrales Unavailable Larry Kirby Primary Care Provider MD Yi Moreno Referring Provider MD Wiley Mcmanus Attending Provider [phone] Larry Corrales Unavailable AICHHOLZ, ROOM SERVICE FOOD SERVICE ATTENDANT LARRY Admitting Unavailable AICHHOLZ, ROOM SERVICE FOOD SERVICE ATTENDANT LARRY Attending Unavailable AICHHOLZ, ROOM SERVICE FOOD SERVICE ATTENDANT LARRY Consulting Unavailable AICHHOLZ, ROOM SERVICE FOOD SERVICE ATTENDANT LARRY Primary Care Unavailable LEN ., DR ARIZA Attending Unavailable LEN ., DR ARIZA Consulting Unavailable LEN ., DR ARIZA Admitting Unavailable AICHHOLZ, ROOM SERVICE FOOD SERVICE ATTENDANT LARRY Primary Care Unavailable WEST, DR WILEY Bryant Consulting Unavailable LEN ., DR ARIZA Attending Unavailable AICHHOLZ, ROOM SERVICE FOOD SERVICE ATTENDANT LARRY Primary Care Unavailable LEN ., DR ARIZA Admitting Unavailable LEN ., DR ARIZA Consulting Unavailable AICHHOLZ, ROOM SERVICE FOOD SERVICE ATTENDANT LARRY Primary Care Unavailable AICHHOLZ, ROOM SERVICE FOOD SERVICE ATTENDANT LARRY Admitting Unavailable AICHHOLZ, ROOM SERVICE FOOD SERVICE ATTENDANT LARRY Attending Unavailable AICHHOLZ, ROOM SERVICE FOOD SERVICE ATTENDANT LARRY Consulting Unavailable LEN ., DR ARIZA Attending Unavailable AICHHOLZ, ROOM SERVICE FOOD SERVICE ATTENDANT LARRY Primary Care Unavailable LEN ., DR ARIZA Admitting Unavailable LEN ., DR ARIZA Admitting Unavailable LEN ., DR ARIZA Attending Unavailable AICHHOLZ, ROOM SERVICE FOOD SERVICE ATTENDANT LARRY Primary Care Unavailable LEN ., DR ARIZA Consulting Unavailable TATEONDINAT Consulting Unavailable MARGARITA II, BERTHA Consulting Unavailable LEN ., DR ARIZA Attending Unavailable AICHHOLZ, ROOM SERVICE FOOD SERVICE ATTENDANT LARRY Primary Care Unavailable LEN ., DR ARIZA Admitting Unavailable LEN ., DR ARIZA Attending Unavailable AICHHOLZ, ROOM SERVICE FOOD SERVICE ATTENDANT LARRY Primary Care Unavailable LEN ., DR ARIZA Admitting Unavailable LEN ., DR ARIZA Consulting Unavailable LEN ., DR ARIZA Admitting Unavailable LEN ., DR ARIZA Attending Unavailable AICHHOLZ, ROOM SERVICE FOOD SERVICE ATTENDANT LARRY Primary Care Unavailable AICHHOLZ, ROOM SERVICE FOOD SERVICE ATTENDANT LARRY Primary Care Unavailable AICHHOLZ, ROOM SERVICE FOOD SERVICE ATTENDANT LARRY Attending Unavailable AICHHOLZ, ROOM SERVICE FOOD SERVICE ATTENDANT LARRY Admitting Unavailable AICHHOLZ, ROOM SERVICE FOOD SERVICE ATTENDANT LARRY Consulting Unavailable LEN ., DR ARIZA Attending Unavailable LEN ., DR ARIZA Consulting Unavailable AICHHOLZ, ROOM SERVICE FOOD SERVICE ATTENDANT LARRY Primary Care Unavailable LEN ., DR ARIZA Admitting Unavailable ZIEBER, DR MADDI Wild Consulting Unavailable AICHHOLZ, ROOM SERVICE FOOD SERVICE ATTENDANT LARRY Consulting Unavailable AICHHOLZ, ROOM SERVICE FOOD SERVICE ATTENDANT LARRY Primary Care Unavailable AICHHOLZ, ROOM SERVICE FOOD SERVICE ATTENDANT LARRY Attending Unavailable AICHHOLZ, ROOM SERVICE FOOD SERVICE ATTENDANT LARRY Admitting Unavailable MISC, DR PETERS Admitting Unavailable MISC, DOCTOR Attending Unavailable MISC, DR PETERS Consulting Unavailable AICHHOLZ, ROOM SERVICE FOOD SERVICE ATTENDANT LARRY Primary Care Unavailable AICHHOLZ, ROOM SERVICE FOOD SERVICE ATTENDANT LARRY Primary Care Unavailable AICHHOLZ, ROOM SERVICE FOOD SERVICE ATTENDANT LARRY Attending Unavailable AICHHOLZ, ROOM SERVICE FOOD SERVICE ATTENDANT LARRY Admitting Unavailable AICHHOLZ, ROOM SERVICE FOOD SERVICE ATTENDANT LARRY Consulting Unavailable PROVIDER, UNKNOWN Admitting Unavailable PROVIDER, [...] UNKNOWN Attending Unavailable CLEMOW, RIKKI Referring Unavailable HERMES, YI Rebollar Admitting Unavailabl e BENOITHER, YI [...] Attending Unavailable YI MORENO Referring Unavailabl e Larry Kirby Primary Care Provider [phone] MD Wiley Mcmanus Attending Provider [phone] Louise Johnson Unavailable Majo Lyman Unavailable Larry Kirby Primary Care Provider [phone] KATHRIN Lyman Attending Provider MD David Martinez Attending Provider [phone] David Martinez Unavailable MD Wiley Mcmanus Attending Provider Larry Kirby Primary Care Provider Larry Kirby Primary Care Provider MD Wiley Mcmanus Attending Provider KATHRIN Lyman Attending Provider Larry Kirby Primary Care Provider [phone] MD Wiley Mcmanus Attending Provider Oswald Harrington Attending Provider DO Oswald Harrington Attending Provider Larry Kirby Primary Care Provider [phone] KATHRIN Lyman Attending Provider KOFI ROOM SERVICE FOOD SERVICE ATTENDANT, LARRY Primary Care Unavailable DESIREE SYKES DO Consulting Unavailable HERMES ERNST~[id number], HERMES Beltran Admitting Unavailable HERMES ERNST~[id number], HERMES Beltran Attending Unavailable DESIREE SYKES DO Consulting Unavailable CHRIS PATE CRNA Consulting Unavailable CHRIS PATE CRNA Consulting Unavailable Kofi FRAGA, Larry Unavailable Magdiel Munoz MD Primary Care Provider [phone] Matthew RITCHIE MD, Rikki Unavailable Larry Kirby Primary Care Unavailable Oswald Harrington Admitting Unavailable Oswald Harrington Attending Unavailable Wiley Mcmanus Attending Unavailable Larry Kirby Primary Care Unavailable Wiley Mcmanus Admitting Unavailable Wiley Mcmanus Attending Unavailable Larry Kirby Primary Care Unavailable Wiley Mcmanus Admitting Unavailable Larry Kirby Primary Care Unavailable Majo Lyman Admitting Unavailable Majo Lyman Attending Unavailable Larry Kirby Primary Care Unavailable Majo Lyman Admitting Unavailable Majo Lyman Attending Unavailable Larry Kirby Primary Care Unavailable Asaad, Imad Admitting Unavailable Asaad, Imad Attending Unavailable Aichholz LINOLEUM TILE LAYER - BUSINESS PROGRAMMERLarry. Primary Care Provide r ELIN BALLARD Referring Unavailable AICHHOLZ, LARRY J. Primary Care Unavailable AICHHOLZ, LARRY J. Primary Care Unavailable ELIN BALLARD Referring Unavailable MAJO MIX Attending Unavailable DOMITILA, SARAH A Referring Unavailable DOMITILA, SARAH A Primary Care Unavailable MAJO MIX Attending Unavailable AICHHOLZ, LARRY J Referring Unavailable AICHHOLZ, LARRY J Primary Care Unavailable MAJO MIX Attending Unavailable AICHHOLZ, LARRY J Referring Unavailable AICHHOLZ, LARRY J Primary Care Unavailable MAJO MIX Attending Unavailable AICHHOLZ, LARRY J Referring Unavailable AICHHOLZ, LARRY J Primary Care Unavailable MAJO MIX Attending Unavailable AICHHOLZ, LARRY J Referring Unavailable AICHHOLZ, LARRY J Primary Care Unavailable MAJO MIX Attending Unavailable AICHHOLZ, LARRY J Referring Unavailable AICHHOLZ, LARRY J Primary Care Unavailable AICHHOLZ, LARRY Attending Unavailable AICHHOLZ, LARRY Attending Unavailable AICHHOLZ, LARRY Attending Unavailable AICHHOLZ, LARRY Attending Unavailable AUREA MARC Attending Unavailable BARRIOS, ADRIANA Attending Unavailable AICHHOLZ, LARRY Referring Unavailable BARRIOS, ADRIANA Attending Unavailable AICHHOLZ, LARRY Referring Unavailable TREASURE, CAMRYN Attending Unavailable AICHHOLZ, LARRY Referring Unavailable BARRIOS, ADRIANA Attending Unavailable AICHHOLZ, LARRY Referring Unavailable LEN, OSWALD Attending Unavailable KELBLEY, CAMRYN Attending Unavailable AICHHOLZ, LARRY Referring Unavailable KELBLEY, CAMRYN Attending Unavailable AICHHOLZ, LARRY Referring Unavailable LEN, OSWALD Attending Unavailable BARRIOS, ADRIANA Attending Unavailable AICHHOLZ, LARRY Referring Unavailable HARSHA CARRASCO Attending Unavailable AICHHOLZ, LARRY Referring Unavailable AICHHOLZ, LARRY Attending Unavailable BARRIOS, ADRIANA Attending Unavailable AICHHOLZ, LARRY Referring Unavailable BARRIOS, ADRIANA Attending Unavailable AICHHOLZ, LARRY Referring Unavailable BARRIOS, ADRIANA Attending Unavailable AICHHOLZ, LARRY Referring Unavailable HARSHA CARRASCO Attending Unavailable AICHHOLZ, LARRY Referring Unavailable MARK OLMEDO Attending Unavailable LARRY KIRBY Referring Unavailable LARRY KIRBY Attending Unavailable JR. VALENTINO GEORGE C Attending UnavailLARRY Ordoñez Attending Unavailable LARRY KIRBY Attending Unavailable LARRY KIRBY Attending Unavailable AUREA MARC Attending Unavailable Medications Current Medications Medication Drug [...] Start: 02-25-2022 take 2 tablets by mo prh every four hours as needed acetaminophen (TYLENOL) [...] 0 Refills: 0 Ordered: 14-Oct-2021 DO Active Ampicillin / Sulbactam (2 sources) Penicillin-class [...] atenolol (TENO RMIN) tablet Start: 08-25-2021 End: 02-23-2025 take 1 tablet by mouth once daily atenolol (Tenormin) 100 MG tablet Indications: Primary hypertension Take 1 tablet (100 mg) by mouth Daily 90 tablet 1 11/25/2024 Active calcium polycarbophil (9 sources) Calcium Polycarb [...] ICU/Step Down cholecalciferol 0.05 mg oral capsule (18 sources) Vitamin D Start: 10-14-2023 take 1 capsule by mouth once daily Cholecalciferol (Vitamin D3) 50 mcg (2,000 unit) capsule Active 1 CAP PO Daily October 14, 2023 12:00am FreeTextSi capsule Orally Once a day; Note: Source Status: Taking; Provider: Yonathan Diaz ( ) take 1 capsule by [facility] every twenty-four hours Vitamin D3 50 MCG [...] Start: 10-14-2021 take 1 tablet by rosy once daily Triamterene-HCTZ 37.5-25 MG Oral Tablet TAKE 1 TABLET DAILY DIRECTED. Quantity: 90 Refills: 3 Ordered: 14-Oct-2021 Eileen Nichols MD Start : 14-Oct-2021 Active stop lasix and potassium ibuprofen 800 mg oral tablet (20 sources) Nonsteroidal Anti-inflammatory Drug Start: 11-08-2024 End: 11-14-2024 take 1 tablet by mouth every eight hours at mealtime for pain ibuprofen 800 MG tablet Indications: Acute pain of right shoulder Take 1 tablet (800 mg) by mouth every 8 (eight) hours if needed for mild pain or moderate pain (pain) for up to 10 days Take with food 30 tablet 11/08/2024 11/14/2024 Discontinued (Ineffective) Start: 04-16-2024 End: 06-19-2024 take 1 tablet [...] Until Discontinued, ICU/Step Down Start: 07-08-2022 End: 02-25-2025 take 1 tablet by mouth before mealtime levothyroxine (Synthroid, Levoxyl) 75 MCG tablet Indications: Other specified hypothyroidism Take 1 tablet (75 mcg) by mouth in the morning. Take before meals. 90 tablet 1 11/27/2024 Active Start: 01-05-2022 take 1 tablet by [...] capsule (20 sources) Opioid Agonist Start: 12-06-2023 End: 10-23-2024 take 1 capsule by mouth every six hours as needed for diarrhea loperamide (Imodium) 2 MG capsule Take 2 mg by mouth every 6 (six) hours if needed for diarrhea 01/18/2024 Active meloxicam 15 mg oral tablet (20 sources) Nonsteroidal Anti-inflammatory Drug Start: 12-31-2024 End: 02-21-2025 take 1 tablet by mouth once daily meloxicam (Mobic) 15 MG tablet Indications: Chronic right shoulder pain Take 1 tablet (15 mg) by mouth Daily 30 tablet 2 02/21/2025 Active Start: 11-14-2024 End: 12-14-2024 take 1 tablet by mouth once daily meloxicam (Mobic) 15 MG tablet Indications: Acute pain of right shoulder Take 1 tablet (15 mg) by mouth Daily 30 tablet 1 11/14/2024 12/14/2024 Active 2 ml metoclopramide 5 mg/ml prefilled syringe (1 source) Dopamine-2 Receptor Antagonist Start: 01-05-2022 End: 01-05-2022 10 mg, IntraVENous, ONCE PRN, 1 dose, Starting on Tue01/05/22 at 1558, Until Tue01/05/22 at 2359, Nausea Secondary antiemetic therapy. PACU only metroNIDAZOLE 500 mg oral tablet (4 sources) Nitroimidazole Antimicrobial Start: 12-11-2024 End: 12-18-2024 take 1 tablet by mouth in the morning metroNIDAZOLE (Flagyl) 500 MG tablet Indications: Labial cyst Take 1 tablet (500 mg) by mouth in the morning and 1 tablet (500 mg) before bedtime. Do all this for 7 days. 14 tablet 12/11/2024 12/18/2024 Active Multiple Vitamins-Minerals (THERAPEUTIC MULTIVITAMIN-MINERAL S) tablet (6 sources) take 1 tablet by mouth once daily Multiple Vitamins-Minerals (THERAPEUTIC MULTIVITAMIN-LEAD LOADER ALS) tablet Take 1 tablet by mouth daily 0 Suspended take 1 tablet by mouth once gagan y Multiple Vitamins-Minerals (THERAPEUTIC MULTIVITAMIN-MINERALS) tablet Take 1 tablet by mouth daily 0 Active Multivitamin (One Daily Multivitamin) tablet (14 sources) Start: 10-14-2023 take 1 tablet by [...] minerals (Centrum) 9-200 mg-mcg tablet split tablet (20 sources) Start: take 1 tablet by mouth [...] for Peds or for suspected overdose, Post-op nitrofurantoin, macrocrystals 25 mg / nitrofurantoin, monohydrate 75 mg oral capsule (4 sources) Nitrofuran Antibacterial Start: 10-03-2024 End: 10-10-2024 take 1 capsule by mouth in the morning nitrofurantoin, macrocrystal-monohydrate, (Macrobid) 100 MG capsule Indications: Urinary tract infection without hematuria, site unspecified Take 1 capsule (100 mg) by mouth in the morning and 1 capsule (100 mg) before bedtime. Do all this for 7 days. 14 capsule 10/03/2024 10/10/2024 Active norethindrone 0.35 mg oral tablet (20 sources) Start: 02-26-2022 norethindrone (MICRONOR) tablet TABS OLANZapine 5 mg disintegrating oral tablet (20 sources) Atypical Antipsychotic Start: 07-15-2022 OLANZapine (ZyPREXA ZYDIS) disintegrating tablet Start: 07-14-2022 End: 07-15-2022 take 10 mg by mouth at bedtime 10 mg, Oral, AT BEDTIME , First dose on 07/14/22 at 2200, Until Discontinued, ICU/Step Down Start: 11-17-2021 take 1 tablet by rosy th at bedtime OLANZapine (ZyPREXA) 5 MG tablet Take 5 mg by mouth at bedtime. 11/17/2021 Active take 2 tablets by mo uth at bedtime OLANZapine (ZyPREXA) 5 MG tablet Take 10 mg by mouth. hs Active ondansetron 4 mg oral tablet (20 sources) Serotonin-3 Receptor Antagonist Start: 09-10-2024 End: 10-09-2024 take 1 tablet by mouth every eight hours as needed for nausea and vomiting Ondansetron Hcl 4 mg tablet Active 4 MG PO Every 8 hours as needed for nausea and vomiting 90 September 10, 2024 12:00am Start: 10-14-2023 End: [...] iate release tablet 5 mg Peppermint oil (2 sources) Start: 09-10-2024 peppermint oil Active PO September 10, 2024 12:00am phentermine hydrochloride 37.5 mg oral tablet (15 sources) Sympathomimetic Amine Anorectic Start: 06-30-2022 take 1 tablet by mouth once daily Phentermine HCl 37.5 MG TABS Take 1 Tablet by mouth daily. 06/30/2022 Active potassium chloride 20 meq extended release oral tablet (20 sources) Start: 10-14-2023 End: 05-28-2025 take 1 tablet by mouth once daily potassium chloride CR (K-Tab) 20 MEQ ER tablet Indications: Hypokalemia Take 1 tablet (20 mEq) by mouth Daily 90 tablet 1 02/27/2025 05/28/2025 Active take 20 mEq by mouth once daily potassium chloride (KLOR-CON) 20 MEQ packet Take 20 mEq by mouth daily Active take 1 tablet by rosy th every twenty-four hours Potassium Chloride ER 20 MEQ 1 tablet wi th food Orally Once a day Active Probiotic [...] Husk (Fiber (Psyllium Husk)) 0.4 gram capsule (14 sources) Start: 10-14-2023 Psyllium Husk (Fiber (Psyllium [...] Provider: Yonathan Diaz ( ) Start: 09-14-2022 End: 10-09-2024 take 2 tablets by mouth at bedtime QUEtiapine (SEROquel) 50 MG tablet Take 100 mg by mouth at bedtime 11/23/2023 10/09/2024 Discontinued (Therapy completed) Start: 08-25-2021 take 1 tablet by rosy th once daily QUEtiapine Fumarate 100 MG Oral Tablet TAKE 1 TABLET BY MOUTH DAILY Quantity: 30 Refills: 0 Ordered: 28-Sep-2021 DO Start : 25-Aug-2021 Active SEROquel 50 MG 1 tablet twice daily Orally twice daily Active saccharomyces boulardii 250 mg oral capsule (14 sources) Start: 10-14-2023 take 1 capsule by mouth once daily Saccharomyces Boulardii (Daily Probiotic (S. Boulardii)) 250 mg capsule Active 250 MG PO Daily October 14, 2023 12:00am sodium chloride 0.111 meq/ml nasal solution (16 sources) Start: 07-17-2022 take 1 spray(s) nasal route twice daily as needed for congestion sodium chloride (Hughes Nasal [place]) 0.65 % nasal spray Use 1 [place] in each nostril as needed for Congestion (2 puffs nasally twice daily). 1 mL 3 07/17/2022 Active Start: 07-14-2022 1 [place], Nasal , EVERY 1 HOUR PRN, Starting [...] 1 Capsule by mouth daily. 01/06/2022 Active traZODone hydrochloride 50 mg oral tablet (19 sources) Serotonin Reuptake Inhibitor Start: 01-03-2025 traZODone (Desyrel) 50 MG tablet Take 50 mg by mouth as needed at bedtime 01/03/2025 Active 24 hr trospium chloride 60 mg extended release oral capsule (20 sources) Cholinergic Muscarinic Antagonist Start: 09-20-2024 take 1 capsule by mouth once daily trospium (Sanctura XR) 60 MG 24 hour capsule Take 1 capsule by mouth Daily 09/20/2024 Active Start: 11-02-2023 take 1 capsule by [facility] every twenty-four hours Trospium 60 mg capsule,extended release 24hr Active 60 MG PO November 01, 2023 11:00pm Start: 11-02-2023 End: 08-06-2024 take 1 capsule by mouth once daily trospium (SANCTURA) 60 MG CP24 extended release capsule Indications: Urge incontinence , OAB (overactive bladder) TAKE 1 CAPSULE BY MOUTH DAILY 90 capsule 1 04/03/2024 Active take 1 tablet by rosy th [...] Start: 11-30-2021 take 1 capsule by mo [facility] once daily at mealtime Venlafaxine (Effexor Xr) 150 mg capsule,extended release 24hr Active 1 CAP PO Daily October 14, 2023 12:00am FreeTextSi capsule with food Orally Once a day; Note: Source Status: Taking; Provider: Yonathan Diaz ( ) Start: 11-30-2021 take 1 capsule by mo [facility] once daily at mealtime Venlafaxine (Effexor Xr) 75 mg capsule,extended release 24hr Active 75 MG PO Daily October 14, 2023 12:00am FreeTextSi capsule with food Orally Once a day; Note: Source Status: Taking; Provider: Yonathan Diaz ( ) take 1 capsule by [facility] every twenty-four hours in the morning venlafaxine XR (Effexor XR) 150 MG 24 hr capsule Take 1 capsule by mouth in the morning. Active take 1 tablet by rosy once daily venlafaxine (EFFEXOR) 75 MG tablet Take 1 tablet by mouth daily Active VITAMIN D, CHOLECALCIFEROL, PO (20 sources) VITAMIN D, EDU CALCIFEROL, PO Take by mouth Active VITAMIN D, EDU CALCIFEROL, PO Take by mouth daily Active VITAMIN D, EDU CALCIFEROL, PO Take by mouth. Active VITAMIN D, EDU CALCIFEROL, PO Take by mouth 0 Suspended VITAMIN D, EDU CALCIFEROL, PO Take by mouth 0 Active Vitamin D3 (5 sources) Vitamin D3 Activ e Completed/Discontinued Medications Medication Drug Class(es) Dates Sig (Normalized) Sig (Original) alosetron 1 mg oral tablet (20 sources) Serotonin-3 Receptor Antagonist Start: 06-11-2024 End: 10-23-2024 take 1 tablet by mouth twice daily Alosetron (Lotronex) 1 mg tablet Discontinued 1 MG PO Twice daily 60 June 10, 2024 11:00pm October 23, 2024 3:23pm Start: 05-16-2024 End: 06-11-2024 take 1 tablet by mouth once daily Alosetron (Lotronex) 0.5 mg tablet Discontinued 0.5 MG PO Daily May 15, 2024 11:00pm June 11, 2024 3:00pm amitriptyline hydrochloride 10 mg oral tablet (20 sources) Tricyclic Antidepressant End: 01-22-2025 take 1 tablet by mouth at bedtime amitriptyline (Elavil) 10 MG tablet Take 10 mg by mouth at bedtime 01/22/2025 Discontinued (Med list cleanup) amoxicillin 875 mg / clavulanate 125 mg [...] sources) HMG-CoA Reductase Inhibitor Start: 10-14-19 End: 06-24-20 take 1 tablet by mouth in the evening atorvastatin (Lipitor) 20 MG tablet Indications: Mixed hyperlipidemia Take 1 tablet (20 mg) by mouth in the evening 90 tablet 12/31/2024 03/26/2025 Discontinued Start: 07-14-2022 take 20 mg by mouth once daily 20 mg, Oral, DAILY, First dose on Tue07/14/22 at 1800, Until Discontinued, ICU/Step Down Start: 02-26-2022 atorvastatin ( LIPITOR) tablet Start: 01-01-2022 atorvastatin ( LIPITOR) 20 mg tablet Take 20 mg by mouth. 01/01/2022 Active azelastine hydrochloride 0.137 mg/actuat metered dose nasal spray (5 sources) Histamine-1 Receptor Antagonist Start: 05-02-2024 End: 06-19-2024 azelastine (Astelin) 0.1 % nasal spray 05/02/2024 06/19/2024 Discontinued (Therapy completed) benzonatate 200 mg oral capsule (5 sources) Non-narcotic Antitussive Start: 05-02-2024 End: 06-19-2024 benzonatate (Tessalon) 200 MG capsule 05/02/2024 06/19/2024 Discontinued (Therapy completed) bifidobacterium animalis [id number] unt / lactobacillus acidophilus [id number] unt oral capsule (2 sources) Probiotic CAPS [...] capsule (20 sources) Corticosteroid Start: 10-14-2023 End: 10-09-2024 take 3 tablets by mouth once daily [...] fumarate 8 mg extended release oral tablet (15 sources) Start: 10-14-2023 End: 11-02-2023 take 1 [...] 0.2 MG/ML injection 0.2 mg IB Guard (4 sources) Start: 06-11-2024 End: 09-10-2024 IB Guard [...] Start: 04-16-2024 End: 05-16-2024 Lidocaine Discontinued 1 JOSE LIC TOPICAL Twice daily 20 03April 16, 2024 12:00am May 16, 2024 3:45pm Start: 04-16-2024 Lidocaine Acti ve 1 APPLIC TOPICAL Twice daily 20 03April 16, 2024 12:00am magnesium oxide 400 mg oral tablet (19 sources) Start: 08-06-2024 End: 11-20-2024 take 1 tablet by mouth once daily magnesium oxide (Mag-Ox) 400 (240 Mg) MG tablet Take 400 mg by mouth Daily 08/06/2024 11/20/2024 Discontinued (Therapy completed) mesalamine (13 sources) Aminosalicylate Start: 12-12-2023 End: 12-12-2023 take [...] EVENING MEAL 90 tablet 3 12/26/2023 Active 1 ml methylPREDNISolone acetate 40 mg/ml injection (18 sources) Corticosteroid Start: 01-22-2025 End: 01-22-2025 methylPREDNISolone acetate (DEPO-Medrol) injection 40 mg Start: 01-22-2025 End: 01-22-2025 40 mg, Intra-articular, Once PRN Procedure, Starting on Tue01/22/25 at 1436, For 1 dose Start: 02-25-2022 End: 07-08-2022 methylPREDNISolone (MEDROL D OSEPAK) 4 mg tablet Please take according to [...] DO Active oseltamivir 75 mg oral capsule (13 sources) Neuraminidase Inhibitor Start: 10-14-19 End: 11-02-19 take 1 capsule by mouth twice daily Oseltamivir (Tamiflu) 75 mg capsule Discontinued 75 MG PO Twice daily 05 26October 14, 2023 12:00am November 02, 2023 2:39pm oxymetazoline hydrochloride 0.5 mg/ml nasal spray (1 source) Start: 07-14-20 2 [place], Nasal, EVERY 4 HOURS PRN, Starting on Tue07/14/22 at 1516, Until Discontinued, Nosebleed, ICU/Step Down potassium phosphate 15 mmol injection in D5W (1 source) Start: 07-16-20 End: 07-16-20 potassium phosphate 15 mmol injection in D5W predniSONE 20 mg oral tablet (13 sources) Start: 10-14-19 End: 11-02-19 take 1 tablet by mouth twice daily Prednisone 20 mg tablet Discontinued 20 MG PO Twice daily 05 26October 14, 2023 12:00am November 02, 2023 2:39pm sennosides, longterm 1.76 mg/ml oral solution (20 sources) Start: [...] 02/25/2022 Active valACYclovir 1000 mg oral tablet (16 sources) Herpesvirus Nucleoside Analog DNA Polymerase Inhibitor, [...] Onset: 11-12-2022 Episodic Disorders of lipid metabolism (20 sources) Hyperlipidemia, unspecified; Translations: [Mixed hyperlipidemia] Onset: 11-16-2022 08-18-2023 Chronic Disorders of teeth and jaw (8 sources) Edentulous; Translations: [Complete loss of teeth, [...] Onset: 05-11-2022 Chronic Miscellaneous mental health disorders (18 sources) Not getting enough sleep; Translations: [Insufficient sleep syndrome] Chronic Mood disorders (20 sources) Acute depression; Translations: [Acute depression] Onset: 11-09-2021 Resolved: 11-09-2021 11-19-2021 Chronic Mood disorders (2 sources) Mood disorders; Translations: [DEPRESSION UNSPECIFIED] Onset: 11-16-2022 Noninfectious gastroenteritis (20 sources) Microscopic colitis; Translations: [Microscopic colitis, unspecified] Onset: 08-08-2023 11-02-2023 Chronic Other aftercare (2 sources) Other [facility] (current) drug therapy; Translations: [[facility] CURRENT DRUG THERAPY] Onset: 11-16-2022 Episodic Other complications of ; puerperium affecting management of mother (8 sources) Deliveries by ; Translations: [Delivery by section] 03-13-2024 Episodic Other diseases of bladder and urethra (20 sources) Overactive bladder; Translations: [Overactive bladder] Onset: 02-23-2022 02-23-2022 Chronic Other female genital disorders (2 sources) Swelling of labia; Translations: [Other specified conditions associated with female genital organs and menstrual cycle] 12-11-2024 Episodic Other female genital disorders (4 sources) Labial cyst; Translations: [Vulvar cyst] 12-11-2024 Episodic Other gastrointestinal disorders (20 sources) Irritable bowel syndrome with diarrhea; Translations: [Irritable bowel syndrome with diarrhea] Onset: 06-19-2024 06-11-2024 Chronic Other gastrointestinal disorders (6 sources) Irritable bowel syndrome with diarrhea; Translations: [Irritable bowel syndrome] 06-11-2024 Chronic Other gastrointestinal disorders (1 source) Irritable bowel syndrome; Translations: [Irritable bowel syndrome without diarrhea] 10-23-2024 Chronic Other gastrointestinal disorders (17 sources) Diarrhea; Translations: [Diarrhea, unspecified] 11-02-2023 Episodic Other gastrointestinal disorders (7 sources) Diarrhea, unspecified; Translations: [Diarrhea] Episodic Other gastrointestinal disorders (13 sources) Fecal urgency; Translations: [Fecal urgency] Episodic Other gastrointestinal disorders (13 sources) Urgent desire for stool; Translations: [Fecal urgency] 11-02-2023 Episodic Other gastrointestinal disorders (5 sources) Abdominal distension (gaseous); Translations: [Flatulence, eructation, and gas pain] 12-12-2023 Episodic Other gastrointestinal disorders (8 sources) Constipation; Translations: [Constipation, unspecified] 03-13-2024 Episodic Other gastrointestinal disorders (7 sources) Constipation, unspecified; Translations: [Constipation, unspecified] Onset: 05-08-2024 03-13-2024 Episodic Other lower respiratory disease (15 sources) Cough; Translations: [Subacute cough] Onset: 09-25-2024 09-25-2024 Episodic Other nervous system disorders (17 sources) Sleep-wake schedule disorder, delayed phase type; Translations: [Circadian rhythm sleep disorder, delayed sleep phase type] 03-13-2024 Chronic Other nervous system disorders (2 sources) Circadian rhythm sleep disorder, delayed sleep phase type Onset: 11-09-2021 Resolved: 11-09-2021 Chronic Other nervous system disorders (1 source) Postoperative pain ; Translations: [Other acute postprocedural pain] Episodic Other non-traumatic joint disorders (4 sources) Derangement of right shoulder joint; Translations: [Other specific joint derangements of right shoulder, not elsewhere classified] 01-23-2025 Chronic Other non-traumatic joint disorders (20 sources) Chronic pain of right upper limb; Translations: [Pain in right shoulder] Onset: 01-07-2025 01-07-2025 Episodic Other non-traumatic joint disorders (4 sources) Disorder of shoulder; Translations: [Other specified joint disorders, right shoulder] 01-22-2025 Episodic Other nutritional; endocrine; and metabolic disorders [...] Chronic Other nutritional; endocrine; and metabolic disorders (3 sources) Overweight in adulthood with body mass index of 25 or more but less than 30; Translations: [Body mass index (BMI) 27.0-27.9, adult] 07-31-2024 Episodic Other nutritional; endocrine; and metabolic disorders (5 sources) Body mass index (BMI) 27.0-27.9, adult; Translations: [Body Mass Index 27.0-27.9, adult] 07-31-2024 Episodic Other skin disorders (2 sources) Night sweats; Translations: [Generalized hyperhidrosis] 08-06-2024 Episodic Ovarian cyst (2 sources) Complex ovarian cyst; Translations: [Other ovarian cyst, unspecified side] 08-06-2024 Episodic Rehabilitation care; fitting of prostheses; and adjustment of devices (8 sources) Follow-up status; Translations: [Encounter for adjustment and management of other implanted nervous system device] 07-31-2024 Episodic Residual codes; unclassified (20 sources) Obstructive sleep apnea syndrome; Translations: [Obstructive sleep apnea (adult)(pediatric)] Onset: 01-15-2022 Chronic Residual codes; unclassified (20 sources) Sleep apnea; Translations: [Sleep apnea, unspecified] 11-19-2021 Chronic Residual codes; unclassified (17 sources) Insomnia; Translations: [Other insomnia] 03-13-2024 Chronic Residual codes; unclassified (11 sources) Obstructive sleep apnea (adult) (pediatric); Translations: [...] specified health status Episodic Residual codes; unclassified (3 sources) Past history of procedure; Translations: [Presence of neurostimulator] 07-31-2024 Episodic Residual codes; unclassified (5 sources) Presence of neurostimulator; Translations: [Other postprocedural [...] Onset: 11-09-2021 Resolved: 11-09-2021 Chronic Thyroid disorders (13 sources) Disorder of thyroid gland; Translations: [Disorder of thyroid, unspecified] 11-02-2023 Episodic Unclassified (1 source) ENCOUNTER OPENED IN ERROR Unclassified (3 sources) CONTACT W/AND (SUSP) EXPOS COVID-19; Translations: [CONTACT W/AND (SUSP) EXPOS COVID-19] Onset: 12-04-2022 Unclassified (1 source) Diarrhea, unspecified; Translations: [Diarrhea, unspecified] Onset: 08-08-2023 Unclassified (2 sources) Chronic pain of right upper limb 01-07-2025 Past or Other Problems Problem Classification Problem Date Documented Da te Episodic/Chronic Abdominal pain (20 sources) Generalized abdominal pain; Translations: [Generalized abdominal pain] Onset: 09-25-2024 09-25-2024 Episodic Calculus of urinary tract (20 sources) Kidney stone; Translations: [Calculus of kidney] Onset: 01-04-2022 11-19-2021 Episodic Fluid and electrolyte disorders (20 sources) Hypokalemia; Translations: [Hypokalemia] Onset: 08-24-2023 08-24-2023 Episodic Malaise and fatigue (20 sources) Asthenia; Translations: [Weakness] Onset: 09-25-2024 09-25-2024 Episodic Nausea and vomiting (20 sources) Nausea; Translations: [Nausea] Onset: 09-28-2024 09-28-2024 Episodic Noninfectious gastroenteritis (20 sources) Chronic diarrhea; Translations: [Noninfective gastroenteritis and [...] digestive system] Onset: 12-14-2023 12-12-2023 Episodic Other lower respiratory disease (20 sources) Cough; Translations: [Subacute cough] Onset: 09-25-2024 09-25-2024 Episodic Other non-traumatic joint disorders (20 sources) Pain in right shoulder; Translations: [Pain in joint, shoulder region] Onset: 11-07-2024 11-14-2024 Episodic Other nutritional; endocrine; and metabolic disorders (20 sources) Body mass index 25-29 - overweight; Translations: [Overweight] Onset: 04-17-2024 04-17-2024 Episodic Other nutritional; endocrine; and metabolic disorders (20 sources) Unintentional weight loss; Translations: [Abnormal weight loss] Onset: 01-25-2024 Resolved: 06-19-2024 06-19-2024 Episodic Other screening for suspected conditions (not mental disorders or infectious disease) (20 sources) Echocardiogram abnormal; Translations: [Nonspecific (abnormal) findings on radiological and other examination of other intrathoracic organs] Onset: 02-16-2022 Episodic Other upper respiratory infections (20 sources) Acute pharyngitis, unspecified; Translations: [Acute upper respiratory infection, unspecified] Onset: 05-02-2024 Resolved: 09-25-2024 Episodic Residual codes; unclassified (4 sources) Asymptomatic menopausal state; Translations: [ASYMPTOMATIC MENOPAUSAL STATE] Onset: 05-07-2022 Episodic Residual codes; unclassified (1 source) Other specified postprocedural states; Translations: [Other specified postprocedural states] Onset: 08-30-2022 Episodic Unclassified (1 source) CONTACT W/AND (SUSP) EXPOS COVID-19; Translations: [CONTACT W/AND (SUSP) EXPOS COVID-19] Onset: 11-26-2022 Unclassified (1 source) Contact with and (suspected) exposure to covid-19 Z20.822 Unclassified (2 sources) Acute pain of right shoulder 11-20-2024 Urinary tract infections (20 sources) Recurrent urinary tract infection; Translations: [Urinary tract infection, site not specified] Onset: 10-03-2024 11-19-2021 Episodic Viral infection (20 sources) Herpes zoster; Translations: [Zoster without complications] Onset: 04-17-2024 Resolved: 06-19-2024 04-16-2024 Episodic Results Test Name Value Interpretation Reference Range Facility No Panel Informationon 01-22 EVERETTE [place] 01/22/2025 4:55 PM L Inj/Asp: R subacromial bursa on 01/22/2025 2:36 PM Indications: pain Details: 21 G needle, posterior approach Medications: 40 mg methylPREDNISolone acetate 40 MG/ML Outcome: tolerated well, no immediate complications Utilizing aseptic technique with universal precautions . Pt given injection Right Shoulder SA space (Code 59426 RT) Procedure, treatment alternatives, risks and benefits explained, specific risks discussed. Consent was given by the patient. [facility] Urinalysis macro (dipstick) panel (U)on 12-11-2024 Bilirubin, UA Negative Negative - 4(70) +++ mg/dL [facility] Blood, UA Negative Negative - 50 Arun/mcL [facility] Clarity, UA Clear [facility] Color, UA Yellow [facility] Glucose, UA Negative Negative - 2000(110) ++++ mg/dL [facility] Interpretation and review of laboratory results Normal [facility] Ketones, UA Negative Negative - 160(16) ++++ mg/dL [facility] Leukocytes, UA Trace Negative - 500+++ Mina/mcL [facility] Nitrite, UA Negative Negative - Positive [facility] pH, UA 5.5 5 - 9 [facility] Protein, UA Negative Negative - 1999(20) ++++ mg/dL [facility] Spec Grav, UA 1.005 1 - 1.03 [facility] Urobilinogen, UA 0.2 0.2 - 12 mg/dL [facility] IGP,APTIMA HPV,AGE GDLNon AGE GDLN ACOG TESTING Note . [facility] Comment on above: TESTS RESULT FLAG UN ITS REF RANGE LAB Clinician Provided Cytology Information Source.............Cervix;Endocervix No. of containers..01 ThinPrep Vial Age Algo ACOG Elizabeth... 30-65 01 FLAG LEGEND: L-Low Normal,H-High Normal,LL-Alert Low,HH-Alert High <-Panic Low,>-Panic High,A-Abnormal,AA-Critical Abnormal Performed at: 01 =G [facility] [address] Corrie Milner MD, HPV APTIMA Positive Abnormal Negative [facility] Comment on above: This nucleic acid am plification test detects fourteen high- risk HPV types (16,18,31,33,35,39,45,51,52,56,58,59,66,68) without differentiation. HPV GENOTYPE 16 Negative Negative [facility] HPV GENOTYPE 18,45 Negative Negative [facility] Comment on above: Performed at: =G [facility] [address], [place] [id number] Yarn Twister: Corrie Milner MD, Phone: [phone] Performed at: - [facility] [id number] Yarn Twister: Corrie Milner MD, Phone: [phone] IGP, APTIMA HPV, RFX 16/18,45 Note . [facility] Comment on above: TESTS RESULT FLAG UN ITS REF RANGE LAB DIAGNOSIS: 02 NEGATIVE FOR INTRAEPITHELIAL LESION OR MALIGNANCY. Specimen adequacy: 02 Satisfactory for evaluation. No endocervical component is identified. Performed by: Octavio Medel, Billing Rep (ASC) . 02 Note: Note 02 The Pap smear is a screening test designed to aid in the detection of premalignant and malignant conditions of the uterine cervix. It is not a diagnostic procedure and should not be used as the sole means of detecting cervical cancer. Both false-positive and false-negative reports do occur. Test Methodology: Note 02 [employer] Flight Test Mechanic was unable to read this specimen. Therefore a manual review was performed. FLAG LEGEND: L-Low Normal,H-High Normal,LL-Alert Low,HH-Alert High <-Panic Low,>-Panic High,A-Abnormal,AA-Critical Abnormal Performed at: [address] [place] [address] Corrie Milner MD, HPV Genotype Reflex Note 02 Criteria met, see HPV Genotype results. Criteria met, see HPV Genotype results. Interpretation and review of laboratory results Abnormal [facility] BRUSH-SPATULA CERVIX ENDOCERVIX [facility] [place] [address] XRay Report Signed Patient: ISABELLE HEWITT I MR#: [id number] : 1975 Acct:[id number] Age/Sex: 49 / F ADM Date: 09/25/24 Loc: LAB Attending Dr: Larry Kirby BUSINESS PROGRAMMER Ordering Physician: Larry Kirby NP Date of Service: 09/25/24 Procedure(s): XR acute abdomen series Accession Number(s): [id number] cc: Larry Kirby NP [place] [address] Patient Name: ISABELLE HEWITT MRN: [id number] date: 1975 Sex: F Assigned Patient Location: LAB Current Patient Location: Accession/Order Number: [id number] Exam Date: 09/25/2024 15:58 Report Date: 09/27/2024 10:33 At the request of: LARRY KIRBY Procedure: XR acute abdomen series EXAMINATION: XR acute abdomen series HISTORY: Generalized abdominal Pain, Subacute Cough COMPARISON: No relevant comparison available. FINDINGS: LUNGS: No infiltrate, pneumothorax, or pleural effusion. MEDIASTINUM: No abnormal widening. BOWEL GAS PATTERN: Non-obstructed. Scattered air-fluid levels FREE AIR: None. CALCIFICATIONS: None significant. BONES: No fracture or visible bone lesion. OTHER: Neurostimulator projects over the right chest, 2 leads, one extending off the field of view and a lead extending to the right lateral chest. XR/XR acute abdomen series IMPRESSION: Clear lungs Scattered air-fluid levels with an overall nonobstructive bowel gas pattern. Consider enteritis Electronically authenticated by: WILEY JAMES Date: 09/27/2024 10:33 Dictated By: Wiley James M.D. Signed By: 09/27/24 1036 DD/ 32 TD/TT: Adjunct Trainer: [facility] Radiology, Radiologist, - 09/28/2024 [place] [address] XRay Report Signed Patient: ISABELLE HEWITT I MR#: [id number] : 1975 Acct:[id number] Age/Sex: 49 / F ADM Date: 09/25/24 Loc: LAB Attending Dr: Larry Kirby NP Ordering Physician: Larry Kirby NP Date of Service: 09/25/24 Procedure(s): XR acute abdomen series Accession Number(s): [id number] cc: Larry Kirby NP [facility] [place] [address] Patient Name: ISABELLE HEWITT MRN: [facility]:[id number] date: 1975 Sex: F Assigned Patient Location: LAB Current Patient Location: Accession/Order Number: [id number] Exam Date: 09/25/2024 15:58 Report Date: 09/27/2024 10:33 At the request of: LARRY KIRBY Procedure: XR acute abdomen series EXAMINATION: XR acute abdomen series HISTORY: Generalized abdominal Pain, Subacute Cough COMPARISON: No relevant comparison available. FINDINGS: LUNGS: No infiltrate, pneumothorax, or pleural effusion. MEDIASTINUM: No abnormal widening. BOWEL GAS PATTERN: Non-obstructed. Scattered air-fluid levels FREE AIR: None. CALCIFICATIONS: None significant. BONES: No fracture or visible bone lesion. OTHER: Neurostimulator projects over the right chest, 2 leads, one extending off the field of view and a lead extending to the right lateral chest. XR/XR acute abdomen series IMPRESSION: Clear lungs Scattered air-fluid levels with an overall nonobstructive bowel gas pattern. Consider enteritis Electronically authenticated by: WILEY JAMES Date: 09/27/2024 10:33 Dictated By: Wiley James M.D. Signed By: 09/27/24 1036 DD/ 32 TD/TT: Adjunct Trainer: [facility] Radiology Study observation (narrative) [facility] XR ACUTE ABDOMEN SERIESOrder ed By: Radiologist Radiology on 09-27-2024 [facility] Work Phone: ALL CBC WITH AUTO DIFFon BASOPHILS ABSOLUTE AUTO 0 [facility] Basophils/100 WBC (Bld) 0.5 % 0.2 - 2.0 % [facility] Eosinophils/100 WBC (Bld) 2.1 % 0.9 - 7.0 % [facility] Erythrocyte distribution width (RBC) [Ratio] 11.5 % 11.0 - 15.0 % [facility] Hematocrit (Bld) [Volume fraction] 42.5 % 36.0 - 48.0 % [facility] Hemoglobin (Bld) [Mass/Vol] 14.2 g/dL 12.0 - 16.0 g/dL [facility] IMMATURE GRANULOCYTES ABS AUTO 0.02 [facility] Immature granulocytes/100 WBC (Bld) 0.3 % 0.0 - 0.5 % [facility] LYMPHOCYTES ABSOLUTE AUTO 2.1 [facility] Lymphocytes/100 WBC (Bld) 33.6 % 20.5 - 60.0 % [facility] MCH (RBC) [Entitic mass] 31.3 pg 26.7 - 34.0 pg [facility] MCHC (RBC) [Mass/Vol] 33.4 g/dL 29.9 - 35.2 g/dL [facility] MCV (RBC) [Entitic vol] 93.6 fL 81.0 - 99.0 fL [facility] MONOCYTES ABSOLUTE AUTO 0.4 [facility] Monocytes/100 WBC (Bld) 6 % 1.7 - 12.0 % [facility] NEUTROPHILS ABSOLUTE AUTO 3.7 [facility] Neutrophils/100 WBC (Bld) 57.5 % 43.0 - 75.0 % [facility] Platelet mean volume (Bld) [Entitic vol] 10.7 fL 9.5 - 13.5 fL [facility] TBH EO # 0.1 [facility] TBH PLT 276 [facility] TB RBC 4.54 [facility] TBH WBC 6.3 [facility] Laboratory - Microbiology an d Antimicrobial susceptibilityon 09-25-2024 SARS-CoV-2 (COVID-19) RNA JOHNNIE+probe Ql (Unsp spec) Negative [facility] No Panel Informationon 09-25 Interpretation and review of laboratory results [facility] URINE CULTURE, ROUTINEon Bacteria identified Cx Nom (U) Urine Culture, Routine [facility] Bacteria identified Cx Nom (U) Mixed urogenital kennedi [facility] Bacteria identified Cx Nom (U) Less than 10,000 colonies/mL [facility] Bacteria identified Cx Nom (U) Performed at: [facility] Bacteria identified Cx Nom (U) [address] [place], [place] [id number] [facility] Bacteria identified Cx Nom (U) Yarn Twister: Fran Guthrie PhD, Phone: [phone] [facility] Cult,Urineon 09-14-2024 Cult,Urine Specimen Description .CLEAN CATCH URINE Special Requests Site: Urine Culture NO SIGNIFICANT GROWTH Report Status FINAL 09/14/2024 Normal [facility] Comment on above: Performed By: #### U RC #### [facility] [address] [place] [address] Yarn Twister: Taiwo Wray MD [facility] [address] [place] [address] Yarn Twister: Wiley Wheatley MD [facility] URINALYSIS, WITH MICROS COPICon 09-13-2024 Interpretation and review of laboratory results Abnormal [facility] BACTERIA TRACE Abnormal NONE [facility] BILIRUBIN, SEMIQT,UR Negative NEG [facility] BLOOD, URINE Negative NEG [facility] CLARITY, URINE Clear CLEAR [facility] COLOR Yellow YEL [facility] EPITHELIAL CELLS 2 TO 5 [facility]SEMI-QNT,UR Negative NEG mg/dL [facility] KETONES, URINE Negative NEG mg/dL [facility] LEUKOCYTE ESTERASE Negative NEG N [facility] N[facility] Negative NEG [facility] PH,UR 6 5.0 - 9.0 [facility] PROTEIN, SEMI-QNT,UR Negative NEG mg/dL [facility] SPEC. GRAVITY,UR <1.005 Low 1.010 - 1.020 [facility] URINE RBC'S 0 TO 2 [facility] WBC'S 0 TO 2 [facility] UROBILINOGEN,UR Normal 0.0 - 1 .0 EU/dL [facility] Original Ordering Provider[facility]/ Microon 2024 Bacteria TRACE Abnormal NONE [facility] Comment on above: Performed By: #### U AMIC #### [facility] [address] [place], [place] [id number] Yarn Twister: Wiley Wheatley MD Bilirubin, SemiQt,Ur Negative Normal NEG [facility] Comment on above: Performed By: #### U AMIC #### [facility] [address] [place] [address] Yarn Twister: Wiley Wheatley MD Blood, Urine Negative Normal NEG [facility] Comment on above: Performed By: #### U AMIC #### [facility] [address] [place] [address] Yarn Twister: Wiley Wheatley MD Clarity (U) Clear Normal CLEAR [facility] Comment on above: Performed By: #### U AMIC #### [facility] [address] [place], [place] [address] Yarn Twister: Wiley Wheatley MD Color (U) Yellow Normal YEL [facility] Comment on above: Performed By: #### U AMIC #### [facility] [address] [place], [facility] Yarn Twister: Wiley Wheatley MD Epithelial cells LM Ql (Urine sed) 2 TO 5 Normal 0-25 [facility] Comment on above: Performed By: #### U AMIC #### [facility] [address] [place] [address] Yarn Twister: Wiley Wheatley MD Glucose Ql (U) Negative Normal NEG [facility] Comment on above: Performed By: #### U AMIC #### [facility] [address] [place] [address] Yarn Twister: Wiley Wheatley MD Ketones Ql (U) Negative Normal NEG [facility] Comment on above: Performed By: #### U AMIC #### [facility] [address] [place], [place] [id number] Yarn Twister: Wiley Wheatley MD Leukocyte esterase Test strip Ql (U) Negative Normal NEG [facility] Comment on above: Performed By: #### U AMIC #### [facility] [address] [place], [place] [id number] Yarn Twister: Wiley Wheatley MD Nitrite,Ur Negative Normal NEG [facility] Comment on above: Performed By: #### U AMIC #### [facility] [address] [place] [address] [place] [address] Yarn Twister: Wiley Wheatley MD PH,Ur 6.0 Normal 5.0-9.0 [facility] Comment on above: Performed By: #### U AMIC #### [facility] [address] [place] [address] [place], [place] [id number] Yarn Twister: Wiley Wheatley MD Protein Ql (U) Negative Normal NEG [facility] Comment on above: Performed By: #### U AMIC #### [facility] [address] [place] [address] [place], [place] [id number] Yarn Twister: Wiley Wheatley MD Spec. [place],Ur <1.005 Low 1.010-1.020 [facility] Comment on above: Performed By: #### U AMIC #### [facility] [address] [place] [address] Yarn Twister: Wiley Wheatley MD Urine RBC's 0 TO 2 Normal 0-2 [facility] Comment on above: Performed By: #### U AMIC #### [facility] [address] [place] [address] [place] [address] Yarn Twister: Wiley Wheatley MD Urine WBC's 0 TO 2 Normal 0-5 [facility] Comment on above: Performed By: #### U AMIC #### [facility] [address] [place] [address] Yarn Twister: Wiley Wheatley MD Urobilinogen,Ur Normal Normal 0.0-1.0 [facility] Comment on above: Performed By: #### U AMIC #### [facility] [address] [place] [address] Yarn Twister: Wiley Wheatley MD Urinalysis with Microscopico n 09-13-2024 Bacteria LM Ql (Urine sed) TRACE Abnormal None [facility] Bilirubin Ql (U) Negative NEGATIVE [facility] Clarity (U) Clear Clear [facility] Color (U) Yellow Yellow [facility] Epithelial cells LM.HPF (Urine sed) [#/Area] 2 TO 5 [facility] Glucose Test strip (U) [Mass/Vol] Negative NEGATIVE mg/dL [facility] Hemoglobin Auto test strip Ql (U) Negative NEGATIVE [facility] Interpretation and review of laboratory results Abnormal [facility] Ketones (U) [Mass/Vol] Negative NEGAT ALISIA mg/dL [facility] Leukocyte esterase Test strip Ql (U) Negative NEGATIVE [facility] Nitrite Ql (U) Negative NEGATIVE [facility] pH (U) 6.0 [pH] 5.0 - 9.0 [facility] Protein (U) [Mass/Vol] Negative NEGAT ALISIA mg/dL [facility] RBC LM.HPF (Urine sed) [#/Area] 0 TO 2 [facility] Specific gravity (U) [Rel density] Low 1.010 - 1.020 [facility] Urobilinogen Qn (U) Normal 0.0 - 1. 0 EU/dL [facility] WBC LM.HPF (Urine sed) [#/Area] 0 TO 2 [facility] XR KUBon 05-08-2024 XR KUB [address] [place] [address] XRay Report Signed Patient: Isabelle Hewitt I MR#: [id number] : 1975 Acct:[id number] Age/Sex: 49 / F ADM Date: 05/08/24 Loc: XD Room: Type: [facility] Attending Dr: Majo Lyman LINOLEUM TILE LAYER Copies to: Majo Lyman APRN Ordering Provider: [...] Candace Marte M.D.05/08/2024 5:27 PM Dictation Location: [place] [address] Transcribed By: [facility] 05/08/241726 Dictated By: Candace Marte MD 05/08/241725 Signed By: 05/08/241726 Normal [facility] SARS-COV-2 AG*on 05-07-2024 SARS-CoV-2 (COVID-19) RNA JOHNNIE+probe Ql (Unsp spec) Negative NEGATIVE [facility] Comment on above: This test has not [...] is terminated or authorization is revoked sooner. [facility] ALL THYROXINE (T4) FREEon Free T4 [Mass/Vol] 0.66 ng/dL Low 0.76 - 1. 46 ng/dL [facility] Interpretation and review of laboratory results Abnormal [facility] 12-29-2023 L Specimen: [id number] Received: 12/29/23 Status: SOUT Req Num: [id number] Spec Type: Surgical Subm Dr: Maddi Winston MD Tissues: A Breast Core CALCIFICATIONS (LT BREAST LIQ MICRO) Procedures: HE/12, Gross/Micro L4 Age/ Patient Sex Location Account Attending Physician Isabelle Hewitt I 48/F LABELL [id number] Oswald Len SPEC NUM: [id number] RECD: 12/29/23 STATUS: [facility] REQ NUM: [id number] ANEGL LUIS: 12/29/[address]: Maddi Winston MD ENTERED: 12/29/[address] [facility] [address]: Miriam Monterroso SPEC TYPE: Surgical DEPT: OLGA VILLALOBOS ORDERED: HE/12, Gross/Micro L4 ORDERED: HE/, Gross/Micro L4 Pathological Diagnosis Classifications, left breast, [...] Clinical history: Stereotactic breast BX CPT Codes 24103 ---- ---- Specimen: [id number] Received: 12/29/23-1323 Status: MALCOLM Cardona Num: [id number] Spec Type: Surgical Subm Dr: Maddi Winston MD Tissues: A Breast Core CALCIFICATIONS (LT BREAST LIQ MICRO) Procedures: Sally/Leroy L4 ---- Patient: Isbaelle Hewitt I [id number] (Continued) ---- Signed (signature on file) Jef Yanes MD 01/02/24 1630 [facility] XR KUBon 12-14-2023 XR KUB [facility] [address] [address] XRay Report Signed Patient: Isabelle Hewitt I MR#: [id number] : 1975 Acct:[id number] Age/Sex: 48 / F ADM Date: 12/14/23 Loc: SL Room: Type: [facility] CLI Attending Dr: Wiley Mcmanus MD Copies to: [...] Yi Dahl M.D.12/14/2023 6:27 PM Dictation Location: [place] [address] Transcribed By: [facility] 12/14/231826 Dictated By: Yi Dahl II, MD 12/14/231825 Signed By: 12/14/231826 Normal [facility] XR KUB [facility] Main [address] [address] XRay Report Signed Patient: Isabelle Hewitt I MR#: [id number] : 1975 Acct:[id number] Age/Sex: 48 / F ADM Date: 12/14/23 Loc: XD Room: Type: DEP CLI Attending Dr: Majo Lyman APRN Copies to: [...] Yi Dahl M.D.12/14/2023 6:27 PM Dictation Location: [place] [address] Transcribed By: [facility] 12/14/231826 Dictated By: Yi Dahl II, MD 12/14/231825 Signed By: 12/16/23 0907 Normal [facility] Cytology Cervical or vaginal smear or scraping studyon 11-22-2023 [facility] - Microbiology an d Antimicrobial susceptibilityOrdered By: Louise Johnson on 10-14-2023 SARS-CoV-2 (COVID-19) RNA JOHNNIE+probe Ql (Unsp spec) [facility] CT UROGRAMon 10-01-2023 CT UROGRAM EXAMINATION: CT [...] Oliver Walker MD 10/01/23 Final result Normal [facility] Creatinine w/GFRon 4 Creatinine [Mass/Vol] 0.7 mg/dL Normal 0.5-0.9 [facility] Comment on above: Performed By: #### C REG #### [facility] [address] [place] [address] Yarn Twister: Wiley Wheatley MD GFR/1.73 sq M.predicted among non-blacks MDRD (S/P/Bld) [Vol rate/Area] mL/min/{1.73_m2} Normal >60 [facility] Comment on above: [...] Performed By: #### C REG #### [facility] [address] [place], [place] [id number] Yarn Twister: Wiley Wheatley MD HCG ( test) Sylvia oscar Ql (U)Ordered By: David Martinez on 08-08-2023 HCG ( test) Ql (U) Negative [facility] HCG,Urineon 08-08-2023 Beta HCG ( test) Ql (U) Negative Normal [facility] Comment on above: Result Comment: PERF ORMED BY: [place] [address] PATHOLOGIST SKI MAKER WOOD CHRIS GUERRERO M.D. Performed By: #### U HCG #### [address] 08-08-2023 L -- ---- Specimen: [id number] Received: 08/08/23 Status: MALCOLM Bergmanjosé luis Num: [id number] Spec Type: Surgical Subm Dr: David Martinez MD Tissues: A Colon Biopsy (RNDM COL BX) Procedures: HE/Nella, Gross/Micro L4 ---- Age/ Patient Sex Location Account Attending Physician ---- Isabelle Hewitt I 48/F [id number] David Martinez MD ---- SPEC NUM: [id number] RECD: 08/08/23 STATUS: MALCOLM CARDONA NUM: [id number] ANGEL LUIS: 08/08/23 DR: David Martinez MD ENTERED: 08/08/[address] [facility] [address]: LOKESH TYPE: Surgical DEPT: S ENTERED BY: [id number] RECV BY: [id number] ORDERED: HE/2, Gross/Micro L4 ORDERED: HE/2, Gross/Micro [...] microscopic examination confirms the diagnosis. CPT Codes 63808 ---- ---- Specimen: [id number] Received: 08/08/23 Status: MALCOLM Cardona Num: [id number] Spec Type: Surgical Subm Dr: David Martinez MD Tissues: A Colon Biopsy (RNDM COL BX) Procedures: HE/2, Gross/Micro L4 ---- Patient: Isabelle Hewitt I [id number] (Continued) ---- Signed (signature on file) Desmond Sarah MD 08/09/23 0957 Normal [facility] Amylase [Enzymatic activity/ volume] in Serum or PlasmaOrdered By: Majo Lyman on 06-30-2023 Amylase [Catalytic activity/Vol] 42 U/L 29-103 [facility] C reactive protein [Mass/vol ume] in Serum or PlasmaOrdered By: Majo Lyman on 06-30-2023 CRP [Mass/Vol] < 0.5 mg/dL 0.0-0.5 [facility] Calprotectin [Mass/mass] in StoolOrdered By: Majo Lyman on 06-30-2023 Calprotectin (Stl) [Mass/Mass] 36 ug/g 0-120 [facility] Comment on above: Concentration Interp retation Follow-Up< 5 - 50 ug/g Normal None>50 -120 ug/g Borderline Re-evaluate in 4-6 weeks >120 ug/g Abnormal Repeat as clinically indicatedPerformed at: [facility] [id number] Director: Andrew Cameron MD, Phone: [phone] Elastase.pancreatic [Mass/ma ss] in StoolOrdered By: Majo Lyman on 06-30-2023 Elastase.pancreatic (Stl) [Mass/Mass] 327 >200 [facility] Comment on above: Result Units: ug Nighat st./g Severe Pancreatic Insufficiency: <100 Moderate Pancreatic Insufficiency: 100 - 200 Normal: >200Performed at: [facility] [id number] Director: Andrew Cameron MD, Phone: [phone] Erythrocyte sedimentation ra te by Photometric methodOrdered By: Majo Lyman on 06-30-2023 ESR Photometric method (Bld) [Velocity] 51 mm/hr 0-19 [facility] HIV 1 and HIV-2 antibody ass ay with HIV-1 p24 antigen detectionOrdered By: Majo Lyman on 06-30-2023 HIV 1+2 Ab+HIV1 p24 Ag IA Ql Non-Reactive Non Reactive [facility] Comment on above: HIV NegativeHIV-1/HI V-2 antibodies and HIV-1 p24 antigen were NOTdetected. There is no laboratory evidence of HIV infection.Performed at: [facility] [address] [id number] Director: Fran Guthrie PhD, Phone: [phone] IgA [Mass/volume] in Serum o r PlasmaOrdered By: Majo Lyman on 06-30-2023 IgA [Mass/Vol] 505 mg/dL 87-352 [facility] Comment on above: Performed at: [facility] [address] [id number] Director: Fran Guthrie PhD, Phone: [phone] Lipase [Enzymatic activity/v olume] in Serum or PlasmaOrdered By: Majo Lyman on 06-30-2023 Lipase [Catalytic activity/Vol] 45.0 U/L 11.0-82.0 [facility] No Panel InformationOrdered By: Majo Lyman on 06-30-2023 Endomysial IgA Antibody Negative Negative [facility] Serum gliadin peptide IgA an tibody assay (units/volume)Ordered By: Majo Lyman on 06-30-2023 Gliadin peptide IgA Qn (S) 7 units 0-19 [facility] Comment on above: Negative 0 - 19 Weak Positive 20 - 30 Moderate to Strong Positive >30 Serum gliadin peptide IgG an tibody assay (units/volume)Ordered By: Majo Lyman on 06-30-2023 Gliadin peptide IgG Qn (S) 2 units 0-19 [facility] Comment on above: Negative 0 - 19 Weak Positive 20 - 30 Moderate to Strong Positive >30 Serum tissue transglutaminas e (tTG) IgA antibody assay (units/volume)Ordered By: Majo Lyman on 06-30-2023 tTG IgA Qn (S) <2 U/mL 0-3 [facility] Comment on above: Negative 0 - 3 Weak Positive 4 - 10 Positive >10 Tissue Transglutaminase (tTG) has been identified as the endomysial antigen. Studies have demonstr- ated that endomysial IgA antibodies have over 99% specificity for gluten sensitive enteropathy. Serum tissue transglutaminas e (tTG) IgG antibody assay (units/volume)Ordered By: Majo Lyman on 06-30-2023 tTG IgG Qn (S) <2 U/mL 0-5 [facility] Comment on above: Negative 0 - 5 Weak Positive 6 - 9 Positive >9 Thyrotropin [Units/volume] i n Serum or PlasmaOrdered By: Majo Lyman on 06-30-2023 TSH Qn 0.57 m[IU]/L 0.45-5.33 [facility] COVID + FLU Quick Testingon 06-07-2023 SARS-CoV-2 (COVID-19) RNA JOHNNIE+probe Ql (Unsp spec) Negative [employer] Other COVID + FLU Quick Testing Negative [employer] Other Quick Strepon 06-07-2023 S. pyogenes Org specific cx Ql (Throat) Negative [facility] [email or web address] Other Quick Strep [employer] [facility] [email or web address] Other Telephone Encounteron 2022 Appliance Mechanic Authentication Interface Message Text Situation: Patient called in Background: She says that she wanted to let provider know taht she would be following a different dr to his new practice for follow up treatment Assessment: NA Recommendation: Please advise and george patient if needed at Phone numbers Thank You Normal [employer] Appliance Mechanic Authentication Interface Message Text Called and left voicemail for patient. Post-op Home Sleep Test reviewed from [facility], and there is considerable improvement. Pre-op AHI is 102, now down to 31. Pre-op O2 Carlene of 71%, now up to 82%. However, still with considerable desat time. There are notes from Dr. Moreno evaluating for INSPIRE I presume, but nothing since November. Asked patient for call back or Mass [employer] message with if she has been able to continue with Dr. Moreno at his new office, or if [facility] -montrell Normal [employer] MG MAMM SCREEN 3D LEEANNE CADon 01-18-2023 MG MAMM SCREEN 3D LEEANNE CAD Patient: ISABELLE EHWITT I. Exam Date: 01/18/2023 : 1975 Gender:F Ordering : [facility] Admission #: [id number] Family : Order #: [id number] CLICK HERE TO VIEW EXAM RADIOLOGY REPORT [...] Treatments None Family Cancers None LOCATION: [facility] BREAST COMPOSITION: Heterogeneously dense,which may obscure [...] M.D. on 01/19/2023 at 13:37 Normal [facility] Urinalysis with Microscopico n 12-13-2022 Bacteria, UA TRACE Abnormal None [facility] Bilirubin Urine Negative NEGATIVE [facility] Color, UA Yellow Yellow [facility] Epithelial Cells UA 0 TO 2 [facility] Glucose Auto test strip (U) [Mass/Vol] Negative NEGATIVE [facility] Interpretation and review of laboratory results Abnormal [facility] Ketones (U) [Mass/Vol] Negative NEGATIVE [facility] Leukocyte esterase Auto test strip Ql (U) Negative NEGATIVE [facility] Nitrite Auto test strip Ql (U) Negative NEGATIVE [facility] Protein (U) [Mass/Vol] 6.5 mg/dL 5.0 - 9.0 [facility] Protein (U) [Mass/Vol] Negative NEGATIVE [facility] RBC clumps Auto (Urine sed) [#/Area] None [facility] Specific [place], UA Low 1.010 - 1.020 [facility] Turbidity UA Clear Clear [facility] Urine Hgb Negative NEGATIVE [facility] Urobilinogen, Urine Normal Normal [facility] WBC, UA None [facility] Covid-19 PCR (CVDTBH)on SARS-CoV-2 (COVID-19) RNA JOHNNIE+probe Ql (Unsp spec) Not detected Normal NOT DETECTED [facility] Comment on above: Result Comment: This test is not yet approved or cleared by the [place] FDA. When there are no FDA-approved or cleared tests available, and other criteria are met, FDA can make tests available under an emergency access mechanism called an Emergency Use Authorization (EUA). The EUA for this test is supported by the Self Propelled Dredge Operator of Health and Human Service's (HHS's) [...] SARS-CoV-2. Performed By: #### C VDTB #### [facility] [address] [place] [address] Dr. Stephanie Gibbs INFLUENZA A AND B AGon 11-26 [facility] SEE BELOW Normal [facility] Comment on above: Result Comment: Nega tive for Flu A protein angiten. Infection due to Flu A cannot be ruled out. Flu A angiten in the sample may be below the detection limit of the test. Performed By: #### I NFLUAB #### [facility] [address] [place] [address] [facility] SEE BELOW Normal [facility] Comment on above: Result Comment: Nega tive for Flu B protein antigen. Infection due to Flu B cannot be ruled out. Flu B antigen in the sample may be below the detection limit of the test. Performed By: #### I NFLUAB #### [facility] [address] [place] [address] Dr. Stephanie Gibbs INFLUENZA A AG Negative Normal NEGATIVE SEE COMMENT [facility] Comment on above: Performed By: #### I NFLUAB #### [facility] [address] [place] [address] Dr. Stephanie Gibbs INFLUENZA B AG Negative Normal NEGATIVE SEE COMMENT [facility] Comment on above: Performed By: #### I NFLUAB #### [facility] [address] [place] [address] Dr. Stephanie Gibbs SYMPTOMATIC COVID-19 ANTIGEN on 11-26-2022 EUA Statement SEE BELOW Normal [facility] Comment on above: Result Comment: [...] sooner. Performed By: #### C BC #### [facility] [address] [place] [address] Dr. Stephanie Gibbs SARS-CoV-2 (COVID-19) RNA JOHNNIE+probe Ql (Unsp spec) Negative Normal NEGATIVE [facility] Comment on above: Performed By: #### C BC #### [facility] [address] [place] [address] Dr. Stephanie Gibbs Telephone Encounteron 2022 Appliance Mechanic Authentication Interface Message Text Requesting sleep study results and next steps. Please advise. Normal [facility] [employer] CBC AUTO DIFFon 11-12-2022 BASO # 0.1 103/ul Normal 0.0-0.1 [facility] Comment on above: Performed By: #### C BC #### [facility] [address] [place] [address] Dr. Stephanie Gibbs Basophils/100 WBC (Bld) 0.9 % Normal 0.2-2.0 [facility] Comment on above: Performed By: #### C BC #### [facility] [address] [place] [address] Dr. Stephanie Gibbs EO # 0.3 103/ul Normal 0.0-0.7 [facility] Comment on above: Performed By: #### C BC #### [facility] [address] [place] [address] Dr. Stephanie Gibbs Eosinophils/100 WBC (Bld) 4.7 % Normal 0.9-7.0 [facility] Comment on above: Performed By: #### C BC #### [facility] [address] [place] [address] Dr. Stephanie Gibbs Erythrocyte distribution width (RBC) [Ratio] 13.4 % Normal 11.0-15.0 [facility] Comment on above: Performed By: #### C BC #### [facility] [address] [place] [address] Dr. Stephanie Gibbs Hematocrit (Bld) [Volume fraction] 43.0 % Normal 36.0-48.0 [facility] Comment on above: Performed By: #### C BC #### [facility] [address] [place] [address] Dr. Stephanie Gibbs Hemoglobin (Bld) [Mass/Vol] 13.9 g/dL Normal 12.0-16.0 [facility] Comment on above: Performed By: #### C BC #### [facility] [address] [place] [address] Dr. Stephanie Gibbs IG # 0.01 10e3/ul Normal 0.00-0.03 [facility] Comment on above: Performed By: #### C BC #### [facility] [address] [place] [address] Dr. Stephanie Gibbs IG % 0.2 % Normal 0.0-0.5 [facility] Comment on above: Performed By: #### C BC #### [facility] [address] [place] [address] Dr. Stephanie Gibbs LYMPH # 2.3 103/ul Normal 1.2-3.8 [facility] Comment on above: Performed By: #### C BC #### [facility] [address] [place] [address] Dr. Stephanie Gibbs Lymphocytes/100 WBC (Bld) 36.6 % Normal 20.5-60.0 [facility] Comment on above: Performed By: #### C BC #### [facility] [address] [place] [address] Dr. Stephanie Gibbs MANUAL DIFF REQ NO Normal [facility] Comment on above: Performed By: #### C BC #### [facility] [address] [place] [address] Dr. Stephanie Gibbs MCH (RBC) [Entitic mass] 29.7 pg Normal 26.7-34.0 [facility] Comment on above: Performed By: #### C BC #### [facility] [address] [place] [address] Dr. Stephanie Gibbs MCHC (RBC) [Mass/Vol] 32.3 g/dL Normal 29.9-35.2 [facility] Comment on above: Performed By: #### C BC #### [facility] [address] [place] [address] Dr. Stephanie Gibbs MCV (RBC) [Entitic vol] 91.9 fL Normal 81.0-99.0 [facility] Comment on above: Performed By: #### C BC #### [facility] [address] [place] [address] Dr. Stephanie Gibbs MONO # 0.5 103/ul Normal 0.3-0.8 [facility] Comment on above: Performed By: #### C BC #### [facility] [address] [place] [address] Dr. Stephanie Gibbs Monocytes/100 WBC (Bld) 8.3 % Normal 1.7-12.0 [facility] Comment on above: Performed By: #### C BC #### [facility] [address] [place] [address] Dr. Stephanie Gibbs NEUT # 3.2 103/ul Normal 1.4-6.5 [facility] Comment on above: Performed By: #### C BC #### [facility] [address] [place] [address] Dr. Stephanie Gibbs Neutrophils/100 WBC (Bld) 49.3 % Normal 43.0-75.0 [facility] Comment on above: Performed By: #### C BC #### [facility] [address] [place] [address] Dr. Stephanie Gibbs Platelet mean volume (Bld) [Entitic vol] 9.6 fL Normal 9.5-13.5 [facility] Comment on above: Performed By: #### C BC #### [facility] [address] [place] [address] Dr. Stephanie Gibbs PLT 250 103/ul Normal 150-450 [facility] Comment on above: Performed By: #### C BC #### [facility] [address] [place] [address] Dr. Stephanie Gibbs RBC 4.68 106/ul Normal 4.20-5.40 [facility] Comment on above: Performed By: #### C BC #### [facility] [address] [place] [address] Dr. Stephanie Gibbs WBC 6.4 103/ul Normal 4.0-11.0 [facility] Comment on above: Performed By: #### C BC #### [facility] [address] [place] [address] Dr. Stephanie Gibbs POINT OF CARE GLUCOSEon 10-21 Glucose [Mass/Vol] 97 mg/dL Normal 74-106 [facility] Comment on above: Performed By: #### P OCGLUC #### [facility] [address] [place] [address] Dr. Stephanie Gibbs PREG QUANT HCGon 11-12-2022 HCG QUANT 3 mIU/mL Normal [facility] Comment on above: Performed By: #### C BC #### [facility] [address] [place] [address] Dr. Stephanie Gibbs HCG RANGE SEE BELOW Normal [facility] Comment on above: Result Comment: 5-50 0.2-1 WEEK 50-500 1-2 WEEKS 100-5,000 2-3 WEEKS 500-10,000 3-4 WEEKS 1,000-50,000 4-5 WEEKS 10,000-100,000 5-6 WEEKS 15,000-200,000 6-8 WEEKS 10,000-100,000 2-3 MONTHS Performed By: #### C BC #### [facility] [address] [place] [address] Dr. Stephanie Gibbs Telephone Encounteron 2022 Appliance Mechanic Authentication Interface Message Text Opened in error Normal [employer] Telephone Encounteron 2022 Appliance Mechanic Authentication Interface Message Text Called patient and left voicemail. Advised that order for post-op PSG was faxed to [facility]. Left number to call to schedule study at her convenience ([phone]) Normal [employer] Progress Noteson 10-19-2022 Appliance Mechanic Authentication Interface Message Text CC: sleep disordered [...] residual base of tongue obstruction. Normal [employer] Telephone Encounteron 2022 Appliance Mechanic Authentication Interface Message Text PT calling back to check status of her FMLA paperwork from [employer]. I verified the correct fax # PT was using ) I called over to PS dept , spoke to Seferino and he stated to have the PT to send it to the e-mail address [email or web address] PT will put ATTN: to Dr. Rodrigues. PT asks to have the paperwork filled out [facility] as it it due soon ( PT didn't state a sate just that it was due) Please call PT once received Normal [employer] Telephone Encounteron 2022 Appliance Mechanic Authentication Interface Message Text Patient calling in to see if her FMLA papers were received. Paperwork not scanned into the chart at this time. Please call the patient with confirmation of receipt of the FMLA papers at [phone]. Thank you! Normal [employer] Progress Noteson 09-08-2022 Appliance Mechanic Authentication Interface Message Text Teaching Physician Note: [...] physician. Rikki Rodrigues DMD, MD Normal [facility] [employer] [facility] Telephone Encounteron 2022 Appliance Mechanic Authentication Interface Message Text PT calling in stating she will be sending new FMLA forms via fax tomorrow due to the library being closed today. PT states Dr. Rodrigues has to fill that paperwork out just like he did for [employer]. PT states the company she works for switched [employer]. Please call PT if any questions. PT was just seen on 08/30/22 Normal [facility] [employer] [facility] FREE T4on 09-02-2022 Free T4 [Mass/Vol] 1.01 ng/dL Normal 0.76-1.46 [facility] Comment on above: Performed By: #### F T4 #### [facility] [address] [address] [address] Stephanie Gibbs TSHon 09-02-2022 TSH 0.745 uIU/mL Normal 0.358-3.740 [facility] Comment on above: Performed By: #### T SH #### [facility] [address] [address] [address] Stephanie Gibbs Telephone Encounteron 2022 Appliance Mechanic Authentication Interface Message Text PT calling in stating she had new FMLA forms to be faxed to Dr. Rodrigues. PT stated her job was going through [employer] and now is going through [employer]. saw PT for surgery on 07/14. PT had a televisit follow up on 07/23, but has cancelled every other follow up on 08/02 , 08/13 AND 08/30. PT stated Dr. Rodrigues had her off work since 07/14/22-08/30/2022. Please see social media sr strategy manager- dates are different Please reach out to PT to discuss and when forms are ready to be filled out [phone] Normal [facility] [employer] [facility] Patient Instructionson 08-30 Appliance Mechanic Authentication Interface Message Text With clean hands massage gums under your upper lip daily at night time No food restrictions Follow up with your dentist We will contact your Sleep Center in [place] to have a Sleep Study completed in 1.5 months. Normal [facility] [employer] [facility] Progress Noteson 08-30-2022 Appliance Mechanic Authentication Interface Message Text [facility] [...] -Complete sleep study with Dr. Mcmanus in [place], [place] in 1.5 months -Follow up with patient's general dentist, Sinan Jones DDS for denture adjustment Follow-Up: After new sleep study Follow up sooner with new or worsening symptoms. Sinan Jones DDS [address] [address] [address] [facility] [place] [address] Wiley Mcmanus MD [facility] [address] [place] [id number] Seferino Vaz DMD [facility] Resident Normal [facility] [employer] [facility] Urinalysis with Microscopico n 08-12-2022 Bacteria, UA 2+ Abnormal None [facility] Bilirubin Urine Negative NEGATIVE [facility] Color, UA Yellow Yellow [facility] Epithelial Cells UA 0 TO 2 [facility] Glucose, Ur Negative NEGATIVE [facility] Interpretation and review of laboratory results Abnormal [facility] Ketones Ql (U) Negative NEGATIVE [facility] Leukocyte esterase Test strip Ql (U) SMALL Abnormal NEGATIVE [facility] Nitrite, Urine Negative NEGATIVE [facility] pH, UA 6.5 5.0 - 9.0 [facility] Protein, UA 1+ Abnormal NEGATIVE [facility] RBC, UA 0 TO 2 [facility] Specific [place], UA High 1.010 - 1.020 [facility] Turbidity UA Cloudy Abnormal Clear [facility] Urine Hgb 1+ Abnormal NEGATIVE [facility] Urobilinogen, Urine Normal Normal [facility] WBC, UA 50 TO 100 [facility] Telephone Encounteron 2021 Usoundation Interface Message Text Called the patient twice this week to remind her regarding the follow up this Tuesday (08/13/22) and to offer to follow up sooner if she prefers. Patient did not answer. Message was left. Also attempted to call the alternative work number listed. Was unable to reach the patient at this number. Jerel Villegas DDS, MD [facility]- PGY4 [phone] Normal [facility] [employer] Telephone Encounteron 2021 Appliance Mechanic [employer]OrPassation Interface Message Text Called pt. No answer. LVM with callback instructions. Per Dr. Rodrigues, we will not write any work excuse notes or prescribe any pain meds until pt is seen in person for follow up. Oliver Rogers DMD Normal [employer] Tomorrow Authentication Interface Message Text Pt called because [...] options if that is the case. Email: [email or web address] Contact pt @[phone] for questions/concerns Normal [employer] Telephone Encounteron 2021 Appliance Mechanic Authentication Interface Message Text Patient called in [...] Please call the patient to advise at [phone]. Thank you! Normal [facility] [employer] [facility] Telephone Encounteron 2021 Appliance Mechanic Authentication Interface Message Text Spoke with patient and instructed her to come in earlier Tuesday afternoon, preferably between 1:00 and 2:00 pm. Also reminded her to bring dentures with her as we would like to assess her occlusion with dentures in place. Patient voiced understanding and agreed to arrive early for her appointment on Tuesday. Mikal Rodgers DMD auditor supervisor, PGY-3 Team Pager: [phone] Normal [facility] [employer] [facility] Telephone Encounteron 2021 Appliance Mechanic Authentication Interface Message Text Patient called stating she needs a back to work slip. Requested a call back [phone]. Thank you! Normal [facility] [employer] [facility] Progress Noteson 07-23-2022 Appliance Mechanic Authentication Interface Message Text [facility] [...] new or worsening symptoms. Mikal Rodgers DMD auditor supervisor, PGY-3 Team Pager: [phone] Normal [facility] [employer] [facility] Progress Noteson 07-19-2022 Appliance Mechanic Authentication Interface Message Text Initial pre-surgical workup photos: Normal [facility] [employer] [facility] BASIC METABOLIC PANELon 06-23 Anion gap [Moles/Vol] 13 mmol/L Normal 10-20 [facility] [employer] [facility] Comment on above: Performed By: #### MILO Mattson CH8 #### [facility] [address] [place] [address], Calcium [Mass/Vol] 7.9 mg/dL Low 8.4-10.4 [facility] [employer] [facility] Comment on above: Performed By: #### MILO Mattson CH8 #### [facility] [address], [place], Chloride [Moles/Vol] 105 mmol/L Normal 97-111 [facility] [employer] [facility] Comment on above: Performed By: #### MILO Mattson, CH8 #### [facility] [address] [place] [address], CO2 [Moles/Vol] 30 mmol/L Normal 21-30 [facility] [employer] [facility] Comment on above: Performed By: #### MILO Mattson, CH8 #### [facility] [address], [place], Creatinine [Mass/Vol] 0.84 mg/dL Normal 0.50-1.10 [facility] [employer] [facility] Comment on above: Performed By: #### MILO Mattson, RAQUEL8 #### [facility] [address], [place], ESTIMATED GFR (CKD-EPI) 86 mL/min/1.73sqm Normal >=60 [facility] Comment on above: Result Comment: 2020 [...] Inclusion of Race in Diagnosing Kidney Disease. [place] Journal of Kidney Diseases 2021;79(2):268-88.e1. 2. N Engl J Med 2020 Vol. 385 Issue 19 Pages [phone] Performed By: #### MILO Mattson CH8 #### [facility] [address] [place] [address], Glucose [Mass/Vol] 85 mg/dL Normal 68-110 [facility] Comment on above: Performed By: #### MILO Mattson CH8 #### [facility] [address] [place] [address], Potassium [Moles/Vol] 3.7 mmol/L Normal 3.3-5.3 [facility] Comment on above: Performed By: #### MILO Mattson CH8 #### [facility] [address] [place] [address], Sodium [Moles/Vol] 144 mmol/L Normal 135-148 [facility] Comment on above: Performed By: #### MILO Mattson CH8 #### [facility] [address] [place] [address], Urea nitrogen [Mass/Vol] 10 mg/dL Normal 8-22 [facility] Comment on above: Performed By: #### MILO Mattson CH8 #### [facility] [address] [place] [address], Basic metabolic 2000 panelon 07-17-2022 Anion gap [Moles/Vol] 13 mmol/L 10 - 20 [facility] Calcium [Mass/Vol] 7.9 mg/dL Low 8.4 - 10. 4 mg/dL [facility] Chloride [Moles/Vol] 105 mmol/L 97 - 11 [...] Inclusion of Race in Diagnosing Kidney Disease. [place] Journal of Kidney Diseases 2021;79(2):268-88.e1. 2. N Engl J Med 1 Vol. 385 Issue 19 Pages 7531-7227 Glucose [Mass/Vol] 85 mg/dL 68 - 110 [...] vol] 8.0 fL 7.5 - 11.2 fL [facility] Platelets (Bld) [#/Vol] 214 10*3/uL 150 - 400 K/uL [facility] RBC (Bld) [#/Vol] 3.33 10*6/uL Low [facility] WBC (Bld) [#/Vol] 8.7 10*3/uL 4.5 - 11.5 K/uL [facility] COMPLETE BLOOD COUNTon 07-17 Erythrocyte distribution width (RBC) [Ratio] 13.7 % Normal 11.5-14.5 [facility] Comment on above: Performed By: #### MILO Mattson CH8 #### [facility] [address] [place] [address], Hematocrit (Bld) [Volume fraction] 32.8 % Low 36.0-46.0 [facility] Comment on above: Performed By: #### MILO Mattson CH8 #### [facility] [address] [place] [address], Hemoglobin (Bld) [Mass/Vol] 10.8 g/dL Low 12.0-15.0 The [facility] Comment on above: Performed By: ###MILO Sierra CH8 #### [facility] [address] [place] [address], MCH (RBC) [Entitic mass] 32.5 pg Normal 26.0-34.0 The [facility] Comment on above: Performed By: #### MILO Mattson CH8 #### [facility] [address] [place] [address], MCHC (RBC) [Mass/Vol] 32.9 g/dL Normal 32.0-35.9 [facility] Comment on above: Performed By: #### MILO Mattson CH8 #### [facility] [address] [place] [address], MCV (RBC) [Entitic vol] 99 fL Normal 80-100 [facility] Comment on above: Performed By: #### MILO Mattson CH8 #### [facility] [address], [place], Platelet mean volume (Bld) [Entitic vol] 8.0 fL Normal 7.5-11.2 [facility] Comment on above: Performed By: #### MILO Mattson, RAQUEL8 #### [facility] [address], [place], Platelets (Bld) [#/Vol] 214 10*3/uL Normal 150-400 [facility] Comment on above: Performed By: #### MILO Mattson CH8 #### [facility] [address], [place], RBC (Bld) [#/Vol] 3.33 10*6/uL Low 4.00-5.20 [facility] Comment on above: Performed By: #### MILO Mattson CH8 #### [facility] [address], [place], WBC (Bld) [#/Vol] 8.7 10*3/uL Normal 4.5-11.5 [facility] Comment on above: Performed By: #### MILO Mattson CH8 #### [facility] [address], [place], Care Plan Noteon 07-17-2022 Appliance Mechanic Authentication Interface Message Text Problem: Discharge Planning: [...] discharged home with family member. Normal [facility] [employer] [facility] Appliance Mechanic Authentication Interface Message Text Problem: Routine Care: [...] will be met Outcome: Progressing Normal [facility] GLUCOSE, FINGERSTICK-IN OFFI CEon 07-17-2022 Glucose [Mass/Vol] 81 mg/dL Normal 68-110 [facility] Comment on above: Performed By: #### 8 [id number] ####NURSING GLUCOSE [id number] [place], [address] Glucose [Mass/Vol] 81 mg/dL 68 - 110 mg/dL [facility] Interpretation and review of laboratory results Normal [facility] Glucose [Mass/Vol] 93 mg/dL Normal 68-110 [facility] Comment on above: Performed By: #### MILO Mattson CH8 #### [facility] [address] [place], [address] Glucose [Mass/Vol] 93 mg/dL 68 - 110 mg/dL [facility] Interpretation and review of laboratory results Normal [facility] MAGNESIUMon 07-17-2022 Magnesium [Mass/Vol] 1.8 mg/dL Normal 1.6-2.8 [facility] Comment on above: Performed By: #### MILO Mattson CH8 #### [facility] [address], [place], Interpretation and review of laboratory results Normal [facility] Magnesium [Mass/Vol] 1.8 mg/dL 1.6 - 2 .8 mg/dL [facility] No Panel Informationon 07-17 Interpretation and review of laboratory results Abnormal [facility] PHOSPHORUSon 07-17-2022 Phosphate [Mass/Vol] 2.4 mg/dL Low 2.5-4.8 [facility] [employer] [facility] Comment on above: Performed By: #### MILO Mattson CH8 #### [facility] [address] [place] [address], Phosphate [Mass/Vol] 2.4 mg/dL Low 2.5 - 4 .8 mg/dL [facility] Noteson 07-17-2022 Appliance Mechanic Authentication Interface Message Text Patient refused: Ditropan, and Hs Fingerstick. Normal [facility] BASIC METABOLIC PANELon 06-23 Anion gap [Moles/Vol] 14 mmol/L Normal 10-20 [facility] Comment on above: Performed By: #### MILO Mattson CH8 #### [facility] [address] [place] [address], Calcium [Mass/Vol] 8.0 mg/dL Low 8.4-10.4 [facility] [employer] [facility] Comment on above: Performed By: #### MILO Mattson CH8 #### [facility] [address] [place] [address], Chloride [Moles/Vol] 103 mmol/L Normal 97-111 [facility] Comment on above: Performed By: #### MILO Mattson CH8 #### [facility] [address] [place] [address], CO2 [Moles/Vol] 31 mmol/L High 21-30 [facility] Comment on above: Performed By: #### MILO Mattson CH8 #### [facility] [address] [place] [address], Creatinine [Mass/Vol] 0.79 mg/dL Normal 0.50-1.10 [facility] Comment on above: Performed By: #### MILO Mattson CH8 #### [facility] [address] [place] [address], ESTIMATED GFR (CKD-EPI) 93 mL/min/1.73sqm Normal >=60 [facility] Comment on above: Result Comment: 2020 [...] Inclusion of Race in Diagnosing Kidney Disease. [place] Journal of Kidney Diseases 202;79(2):268-88.e1. 2. N Engl J Med 1 Vol. 385 Issue 19 Pages [phone] Performed By: #### MILO Mattson CH8 #### [facility] [address] [place] [address], Glucose [Mass/Vol] 96 mg/dL Normal 68-110 [facility] Comment on above: Performed By: #### MILO Mattson CH8 #### [facility] [address] [place] [address], Potassium [Moles/Vol] 4.0 mmol/L Normal 3.3-5.3 [facility] Comment on above: Performed By: #### MILO Mattson CH8 #### [facility] [address] [place] [address], Sodium [Moles/Vol] 144 mmol/L Normal 135-148 [facility] Comment on above: Performed By: #### MILO Mattson CH8 #### [facility] [address] [place] [address], Urea nitrogen [Mass/Vol] 16 mg/dL Normal 8-22 [facility] Comment on above: Performed By: #### MILO Mattson CH8 #### [facility] [address] [place] [address], Basic metabolic 2000 panelon 07-16-2022 Anion gap [...] MDRD (S/P/Bld) [Vol rate/Area] 93 mL/min/{1.73_m2} [facility] Comment on above: 2020 CKD EPI [...] Inclusion of Race in Diagnosing Kidney Disease. [place] Journal of Kidney Diseases 202;79(2):268-88.e1. 2. N Engl J Med 2020 Vol. 385 Issue 19 Pages 4301-3658 Glucose [Mass/Vol] 96 mg/dL 68 - 110 [...] 10.9 g/dL Low 12.0 - 15.0 g/dL [facility] [...] [facility] RBC (Bld) [#/Vol] 3.33 10*6/uL Low [facility] WBC (Bld) [#/Vol] 16.3 10*3/uL High 4.5 - 11.5 K/uL [facility] COMPLETE BLOOD COUNT 07-16 Erythrocyte distribution width (RBC) [Ratio] 13.5 % Normal 11.5-14.5 [facility] Comment on above: Performed By: #### C BC ####[facility] [id number] [place] [address], Hematocrit (Bld) [Volume fraction] 32.8 % Low 36.0-46.0 [facility] Comment on above: Performed By: #### C BC ####[facility] [id number] [place] [address], Hemoglobin (Bld) [Mass/Vol] 10.9 g/dL Low 12.0-15.0 The [facility] Comment on above: Performed By: #### C BC ####[facility] [id number] [place] [address], MCH (RBC) [Entitic mass] 32.7 pg Normal 26.0-34.0 The [facility] Comment on above: Performed By: #### C BC ####[facility] [id number] [place] [address], MCHC (RBC) [Mass/Vol] 33.2 g/dL Normal 32.0-35.9 The [facility] Comment on above: Performed By: #### C BC ####[facility] [id number] [place] [address], MCV (RBC) [Entitic vol] 98 fL Normal 80-100 T [facility] Comment on above: Performed By: #### C BC ####[facility] [id number] [place] [address], Platelet mean volume (Bld) [Entitic vol] 9.0 fL Normal 7.5-11.2 The [facility] Comment on above: Performed By: #### C BC ####[facility] [id number] [place] [address], Platelets (Bld) [#/Vol] 217 10*3/uL Normal 150-400 The [facility] Comment on above: Performed By: #### C BC ####[facility] [id number] [place], [place], RBC (Bld) [#/Vol] 3.33 10*6/uL Low 4.00-5.20 The [facility] Comment on above: Performed By: #### C BC ####[facility] [id number] [place], [place], WBC (Bld) [#/Vol] 16.3 10*3/uL High 4.5-11.5 The [facility] Comment on above: Performed By: #### C BC ####[facility] [id number] [place], [place], GLUCOSE, FINGERSTICK-IN OFFI CEon 07-16-2022 Glucose [Mass/Vol] 89 mg/dL Normal 68-110 The [facility] Comment on above: Performed By: #### MILO Mattson CH8 #### [facility] [address], [place], Glucose [Mass/Vol] 89 mg/dL 68 - 110 mg/dL [facility] Interpretation and review of laboratory results Normal [facility] Glucose [Mass/Vol] 160 mg/dL High 68-110 The [facility] Comment on above: Result Comment: Ricky lund RN, APN, MD Performed By: #### MILO Mattson CH8 #### [facility] [address], [place], Glucose [Mass/Vol] 160 mg/dL High 68 - 110 mg/dL [facility] Comment on above: Notified CALISTA MORSE MD Interpretation and review of laboratory results Abnormal [facility] Glucose [Mass/Vol] 136 mg/dL High 68-110 The [facility] Comment on above: Result Comment: Ricky lund RN, APN, MD Performed By: #### MILO Mattson, RAQUEL8 #### [facility] [address], [place], Glucose [Mass/Vol] 136 mg/dL High 68 - 110 mg/dL [facility] Comment on above: Notified CALISTA MORSE MD Interpretation and review of laboratory results Abnormal [facility] MAGNESIUMon 07-16-2022 Magnesium [Mass/Vol] 2.0 mg/dL Normal 1.6-2.8 [facility] [employer] Comment on above: Performed By: #### MILO Mattson CH8 #### [facility] [address], [place], Interpretation and review of laboratory results Normal [facility] Magnesium [Mass/Vol] 2.0 mg/dL 1.6 - 2 .8 mg/dL [facility] No Panel Informationon 07-16 Interpretation and review of laboratory results Abnormal [facility] PHOSPHORUSon 07-16-2022 Phosphate [Mass/Vol] 2.1 mg/dL Low 2.5-4.8 [facility] [employer] [facility] Comment on above: Performed By: #### MILO Mattson CH8 #### [facility] [address], [place], Phosphate [Mass/Vol] 2.1 mg/dL Low 2.5 - 4 .8 mg/dL [facility] Progress Noteson 07-16-2022 Appliance Mechanic Authentication Interface Message Text -------- GENERAL INFORMATION [...] 3,000 mg, Intravenous, Q6H Antibiotic, [place], Leonardn, DDS, Last Rate: 200 mL/hr at 07/16/22 [...] oxymetazoline (AFRIN) 0.05 % nasal solution, 2 [place], Nasal, Q4H PRN, Sue, Oliver, DMD sodium chloride (OCEAN) 0.65 % nasal spray, 1 [place], Nasal, Q1H PRN, Oliver Rogers, DMD naloxone (NARCAN) 0.4 MG/ML injection, 0.4 mg, Intravenous Push, PRN, Mark Atwood MD Physical Exam: Constitutional: Pleasant adult [...] Gap Glu BUN Cr Ca Mg PO4 11/25/22 0401 2.0 07/16/22400 144 4.0 103 31 14 96 16 0.79 8.0 07/16/22400 2. (more content not included)... Normal [facility] [employer] Appliance Mechanic Authentication Interface Message Text Attestation signed by [...] MD SURGERY DAILY PROGRESS NOTE Isabelle Hewitt [id number] Isabelle Hewitt is a 47yo F with [...] bisacodyl 10 mg Daily PRN oxymetazoline 2 [place] Q4H PRN sodium chloride 1 [place] Q1H PRN naloxone 0.4 mg PRN IV [...] okay to be transferred to [facility]. Neuro: - Acetaminophen 650 mg Q4H scheduled - Ibuprofen 600 mg Q6H PRN mild pain - Oxycodone 5/10 mg Q4H PRN moderate/severe pain OMFS: - Peridex mouth rinses BID Cardiac: - Lipitor 20 mg daily Resp: - O2 as needed to maintain sats >92% - Humidified face tent - Hughes nasal spray Q1H PRN - Afrin nasal [...] - Okay to transfer to [facility] Oliver Rogers DMD auditor supervisor, PGY-1 Team Pager: [phone] Normal [facility] BASIC METABOLIC PANELon 11-2 Anion gap [Moles/Vol] 15 mmol/L Normal 10-20 [facility] Comment on above: Performed By: #### MILO Mattson CH8 #### [facility] [address], [place], Calcium [Mass/Vol] 8.0 mg/dL Low 8.4-10.4 [facility] Comment on above: Performed By: #### MILO Mattson CH8 #### [facility] [address], [place], Chloride [Moles/Vol] 102 mmol/L Normal 97-111 [facility] Comment on above: Performed By: #### MILO Mattson CH8 #### [facility] [address], CO2 [Moles/Vol] 28 mmol/L Normal 21-30 [facility] Comment on above: Performed By: #### MILO Mattson CH8 #### [facility] [address], [place], Creatinine [Mass/Vol] 0.91 mg/dL Normal 0.50-1.10 [facility] [employer] [facility] Comment on above: Performed By: #### MILO Mattson, RAQUEL8 #### [facility] [address], [place], ESTIMATED GFR (CKD-EPI) 78 mL/min/1.73sqm Normal >=60 [facility] Comment on above: Result Comment: 2020 [...] Inclusion of Race in Diagnosing Kidney Disease. [place] Journal of Kidney Diseases 2021;79(2):268-88.e1. 2. N Engl J Med 1 Vol. 385 Issue 19 Pages [phone] Performed By: #### MILO Mattson, RAQUEL8 #### [facility] [address], [place], Glucose [Mass/Vol] 147 mg/dL High 68-110 [facility] Comment on above: Performed By: #### MILO Mattson, RAQUEL8 #### [facility] [address], [place], Potassium [Moles/Vol] 4.3 mmol/L Normal 3.3-5.3 [facility] Comment on above: Performed By: #### MILO Mattson CH8 #### [facility] [address], [place], Sodium [Moles/Vol] 141 mmol/L Normal 135-148 [facility] Comment on above: Performed By: #### MILO Mattson, RAQUEL8 #### [facility] [address], [place], Urea nitrogen [Mass/Vol] 16 mg/dL Normal 8-22 [facility] Comment on above: Performed By: #### MILO Mattson, RAQUEL8 #### [facility] [address], [place], Basic metabolic 2000 panelon 07-15-2022 Anion gap [Moles/Vol] 15 mmol/L 10 - 20 [facility] Calcium [Mass/Vol] 8.0 mg/dL Low 8.4 [...] Inclusion of Race in Diagnosing Kidney Disease. [place] Journal of Kidney Diseases 202;79(2):268-88.e1. 2. N Engl J Med 2020 Vol. 385 Issue 19 Pages [id number] Glucose [Mass/Vol] 147 mg/dL High 68 - [...] (RBC) [Ratio] 13.6 % Normal 11.5-14.5 [facility] Comment on above: Performed By: #### MILO Mattson CH8 #### [facility] [address] [place] [address], Hematocrit (Bld) [Volume fraction] 34.4 % Low 36.0-46.0 [facility] Comment on above: Performed By: #### MILO Mattson CH8 #### [facility] [address] [place] [address], Hemoglobin (Bld) [Mass/Vol] 11.5 g/dL Low 12.0-15.0 [facility] Comment on above: Performed By: #### MILO Mattson CH8 #### [facility] [address] [place] [address], MCH (RBC) [Entitic mass] 32.3 pg Normal 26.0-34.0 [facility] Comment on above: Performed By: #### MILO Mattson CH8 #### [facility] [address] [place] [address], MCHC (RBC) [Mass/Vol] 33.4 g/dL Normal 32.0-35.9 [facility] Comment on above: Performed By: #### MILO Mattson CH8 #### [facility] [address] [place] [address], MCV (RBC) [Entitic vol] 97 fL Normal 80-100 [facility] Comment on above: Performed By: #### MILO Mattson CH8 #### [facility] [address] [place] [address], Platelet mean volume (Bld) [Entitic vol] 8.6 fL Normal 7.5-11.2 [facility] Comment on above: Performed By: #### MILO Mattson CH8 #### [facility] [address] [place] [address], Platelets (Bld) [#/Vol] 267 10*3/uL Normal 150-400 [facility] Comment on above: Performed By: #### MILO Mattson CH8 #### [facility] [address] [place], [place], RBC (Bld) [#/Vol] 3.55 10*6/uL Low 4.00-5.20 [facility] Comment on above: Performed By: #### MILO Mattson CH8 #### [facility] [address] [place], [place], WBC (Bld) [#/Vol] 18.2 10*3/uL High 4.5-11.5 [facility] Comment on above: Performed By: #### MILO Mattson CH8 #### [facility] [address] [place], [place], Care Plan Noteon 07-15-2022 Appliance Mechanic Authentication Interface Message Text Problem: Routine Care: [...] will be met Outcome: Progressing Normal [facility] Appliance Mechanic Authentication Interface Message Text Problem: Discharge Planning: [...] Alan, 8 #### [facility] [address] [place], [address] Glucose [Mass/Vol] 155 mg/dL High 68 - 110 mg/dL [facility] Comment on above: Notified CALISTA MORSE MD Interpretation and review of laboratory results Abnormal [facility] Glucose [Mass/Vol] 137 mg/dL High 68-110 [facility] Comment on above: Performed By: #### 8 2948 ####[facility] GLUCOSE [id number] [place], [address] Glucose [Mass/Vol] 137 mg/dL High 68 - 110 mg/dL [facility] Interpretation and review of laboratory results Abnormal [facility] Progress Noteson 07-15-2022 Appliance Mechanic Authentication Interface Message Text Attestation signed by [...] MD SURGERY DAILY PROGRESS NOTE Isabelle Hewitt [id number] Isabelle Hewitt is a 47yo F with [...] bisacodyl 10 mg Daily PRN oxymetazoline 2 Ghent Q4H PRN sodium chloride 1 [place]t Q1H PRN naloxone 0.4 mg PRN IV [...] daily -Lipitor 20mg daily Pulm: -Oxymetazoline 2 Ghent q4h PRN -Hughes 1 Ghent q1h PRN -Face Tent on humidified air [...] Seferino Vaz DMD FS Resident Team Pager [phone] Normal [facility] Appliance Mechanic Authentication Interface Message Text -------- GENERAL INFORMATION [...] oxymetazoline (AFRIN) 0.05 % nasal solution, 2 [place], Nasal, Q4H PRN, Oliver Rogers, CHAU sodium chloride (OCEAN) 0.65 % nasal spray, 1 [place], Nasal, Q1H PRN, Oliver Rogers, DMD enoxaparin (LOVENOX) 40 MG/0.4ML injection 40 mg, 40 mg, Subcutaneous, Daily, Oliver Rogers, CHAU, 40 mg at 07/14/22 1658 naloxone (NARCAN) 0.4 MG/ML injection, 0.4 mg, Intravenous Push, PRN, Mark Atwood MD lactated ringers iv infusion, , [...] - (more content not included)... Normal [facility] Anesthesia Attestationon Appliance Mechanic Authentication Interface Message Text Anesthesia Attestation ATTESTATION OF INFORMED CONSENT FOR ANESTHESIA Anesthesia options were discussed with the patient and/or legal phone representative. The risks, benefits and alternatives were reviewed. Questions regarding anesthesia were answered. Patient and/or legal phone representative knows such anesthetics and procedures may be performed by Resident physicians, Certified Anesthesiologist Assistants, or Certified Nurse Anesthetists under the supervision of a physician. The patient /or the patient's legal phone representative agree with the plan for anesthesia. Normal [facility] Anesthesia Postprocedure Lauren patel 07-14-2022 Appliance Mechanic Authentication Interface Message Text Anesthesia Postoperative Assessment: [...] EVENTS: No notable events documented. Normal [facility] Anesthesia Transfer Of Careo n 07-14-2022 Appliance Mechanic Authentication Interface Message Text Patient taken to [...] Facts: Surgeon(s): Rikki Rodrigues DMD, MD Anesthesiologist: Mark Atwood MD CAA: Edwina Warren CAA; Delia [...] was received. Zenia Centeno, CAA Normal [facility] BLOOD GAS, ARTERIALon 2021 CR DEBORAH 0.5 mmol/L Normal -2.0-2.0 [facility] Comment on above: Performed By: #### C R LYTES, CR GLU, LACT, CR BGA, CR ICA, CR COOX #### [facility] [address] [place] [address], CR PCO2 37.0 mm Hg Normal 35.0-45.0 [facility] Comment on above: Performed By: #### C R LYTES, CR GLU, LACT, CR BGA, CR ICA, CR COOX #### [facility] [address] [place] [address], CR PHA 7.429 Normal 7.35-7.45 [facility] Comment on above: Performed By: #### C R LYTES, CR GLU, LACT, CR BGA, CR ICA, CR COOX #### [facility] [address] [place] [address], CR PO2 118 mm Hg High 80-100 [facility] Comment on above: Performed By: #### C R LYTES, CR GLU, LACT, CR BGA, CR ICA, CR COOX #### [facility] [address] [place] [address], HCO3 (Bld) [Moles/Vol] 24 mmol/L Normal 22-28 e [facility] Comment on above: Performed By: #### C R LYTES, CR GLU, LACT, CR BGA, CR ICA, CR COOX #### [facility] [address], [place], Oxygen saturation in Blood 98.8 % Normal >=95.1 [facility] Comment on above: Performed By: #### C R LYTES, CR GLU, LACT, CR BGA, CR ICA, CR COOX #### [facility] [address], [place], BLOOD GAS, ARTERIALOrdered B y: Osmar Zamora on 07-14-2022 Base excess Calc (Bld) [Moles/Vol] 0.5 mmol/L -2.0 - 2.0 mmol/L [facility] CO2 (Bld) [Partial pressure] 37.0 mm[Hg] [facility] Oxygen (Bld) [Partial pressure] 118 mm[Hg] High [facility] pH (Bld) 7.429 [pH] 7.35 - 7.45 [facility] Blood Attestationon 07-14-20 Appliance Mechanic Authentication Interface Message Text Blood Attestation ATTESTATION OF INFORMED CONSENT FOR BLOOD The transfusion of blood and/or blood components were discussed with the patient and/or legal phone representative. The risks, benefits and alternatives were reviewed. Questions regarding blood transfusions were answered. The patient /or the patient's legal phone representative agree with the plan for transfusion of blood and/or blood components. Normal [facility] Brief Operative Noteon 07-14 Appliance Mechanic Authentication Interface Message Text Brief Operative Note MAIN OR 12 Isabelle Hewitt 47 year old female Surgical Contact Serial Number: [id number] Preoperative Diagnosis: DIONNE (obstructive sleep apnea) [G47.33] Postoperative Diagnosis: * DIONNE (obstructive sleep apnea) [G47.33] Procedures: Surgical CPTs Procedures RECONSTRUCTION MIDFACE, LEFORT I; 1 PIECE, W/O BONE GRAFT RECONSTRUCTION, MANDIBULAR RAMI AND /OR BODY, SAGITTAL SPLIT; W/INT RIGID FIXATION No data filed Surgeon(s): Surgeon(s): Rikki Rodrigues DMD, MD Staff: Scrub: Annelise Saeed RN; Babs Wells RN Projection Printer Nurse: Stephanie Brannon RN; Babs Wells RN Automobile Dealer: Margot Ovalles DDS; Saleem Mi DMD Anesthesia: General Anesthesiologist: Mark Atwood MD CAA: Edwina Warren CAA; Delia [...] at end of surgery: Stable Activity: Ad Ebata and HOB elevated Surgical wound class: Yes, wound was clean contaminated. Patient Class: Surgery Admit. Is this a patient scheduled as an outpatient that needs to be admitted as an inpatient? No Dr. Rodrigues was present in the OR for the critical portion of the procedure and procedure sign-out. Signed by Rikki Rodrigues DMD, MD 07/14/2022 12:58 PM Normal [facility] CALCIUM, IONIZEDon CR ICA 1.00 mmol/L Low 1.10-1.40 [facility] Comment on above: Performed By: #### C R LYTES, CR GLU, LACT, CR BGA, CR ICA, CR COOX #### [facility] [address] [place] [address], Calcium.ionized (Bld) [Moles/Vol] 1.00 mmol/L Low 1.10 - 1.40 mmol/L [facility] [place]-OXIMETERon 07-14-2022 CARBOXYHEMOGLOBIN 1.5 % Normal <3.0 [facility] Comment on above: Performed By: #### C R LYTES, CR GLU, LACT, CR BGA, CR ICA, CR COOX #### [facility] [address], [place], CR HBMET 0.8 % Normal <3.0 [facility] Comment on above: Performed By: #### C R LYTES, CR GLU, LACT, CR BGA, CR ICA, CR COOX #### [facility] [address], [place], Hematocrit (Bld) [Volume fraction] 37.6 % Normal 36.0-46.0 [facility] Comment on above: Performed By: #### C R LYTES, CR GLU, LACT, CR BGA, CR ICA, CR COOX #### [facility] [address], [place], Hemoglobin (Bld) [Mass/Vol] 12.2 g/dL Normal 12.0-16.0 [facility] Comment on above: Performed By: #### C R LYTES, CR GLU, LACT, CR BGA, CR ICA, CR COOX #### [facility] [address], [place], OXYHEMOGLOBIN 96.5 % Normal 95.0-100.0 [facility] Comment on above: Performed By: #### C R LYTES, CR GLU, LACT, CR BGA, CR ICA, CR COOX #### [facility] [address], [place], Carboxyhemoglobin (BldA) [Mass fraction] 1.5 % NINF - 3.0 % [facility] Hematocrit (BldA) [Volume fraction] 37.6 % 36.0 - 46.0 % [facility] Hemoglobin (Bld) [Mass/Vol] 12.2 g/dL 12.0 - 16.0 g/dL [facility] Methemoglobin (BldA) [Mass fraction] 0.8 % NINF - 3.0 % [facility] Oxyhemoglobin (BldA) [Mass fraction] 96.5 % 95.0 - 100.0 % [facility] 07-14-20[facility] Appliance Mechanic Authentication Interface Message Text Surgical ICU H AND P Isabelle Hewitt [phone] HPI: Ms Hewitt is a 47 year [...] floor (more content not included)... Normal [facility] ELECTROLYTESon 07-14-2022 Chloride [Moles/Vol] 107 mmol/L Normal 97-111 [facility] Comment on above: Performed By: #### C R LYTES, CR GLU, LACT, CR BGA, CR ICA, CR COOX #### [facility] [address] [place] [address], Potassium [Moles/Vol] 3.7 mmol/L Normal 3.3-5.3 [facility] Comment on above: Performed By: #### C R LYTES, CR GLU, LACT, CR BGA, CR ICA, CR COOX #### [facility] [address] [place] [address], Sodium [Moles/Vol] 142 mmol/L Normal 135-148 [facility] Comment on above: Performed By: #### C R LYTES, CR GLU, LACT, CR BGA, CR ICA, CR COOX #### [facility] [address] [place] [address], Chloride [Moles/Vol] 107 mmol/L 97 - 11 1 mmol/L [facility] Potassium [Moles/Vol] 3.7 mmol/L 3.3 - 5.3 mmol/L [facility] Sodium [Moles/Vol] 142 mmol/L 135 - 148 mmol/L [facility], FINGERSTICK-IN OFFI CEon 07-14-2022 Glucose [Mass/Vol] 156 mg/dL High 68-110 The [facility] Comment on above: Performed By: #### 8 2948 ####[facility] [id number] [place], [address] Glucose [Mass/Vol] 156 mg/dL High 68 - 110 mg/dL [facility] Interpretation and review of laboratory results Abnormal [facility] Glucose [Mass/Vol] 110 mg/dL Normal 68-110 [facility] Comment on above: Performed By: #### 8 2948 ####NURSING GLUCOSE [id number] [place], [address] Glucose [Mass/Vol] 110 mg/dL 68 - 110 mg/dL [facility] Interpretation and review of laboratory results Normal [facility] GLUCOSE, WHOLE BLOODon 07-14 CR GLU 93 mg/dL Normal 68-98 [facility] Comment on above: Performed By: #### C R LYTES, CR GLU, LACT, CR BGA, CR ICA, CR COOX ####[facility] [id number] [place], [place], Glucose [Mass/Vol] 93 mg/dL 68 - 98 mg/dL [facility] LACTIC ACIDon 07-14-2022 CR LACT 2.0 mmol/L Normal 0.5-2.0 [facility] Comment on above: Performed By: #### C R LYTES, CR GLU, LACT, CR BGA, CR ICA, CR COOX #### [facility] [address], [place], Lactate [Moles/Vol] 2.0 mmol/L 0.5 - 2. 0 mmol/L [facility] Laboratory - Chemistry and C hemistry - challengeOrdered By: Osmar Zamora on 07-14-2022 HCO3 (Bld) [Moles/Vol] 24 mmol/L 22 - 28 mmol/L [facility] No Panel Informationon 07-14 Interpretation and review of laboratory results Normal [facility] No Panel InformationOrdered By: Osmar Zamora on 07-14-2022 Interpretation and review of laboratory results Abnormal [facility] OP Noteon 07-14-2022 Appliance Mechanic Authentication Interface Message Text Name: ISABELLE HEWITT MR#: [id number] ENC#: [id number] Date of Procedure: 07/14/2022 ATTENDING SURGEON: Rikki [...] was placed deep in the oropharynx. 4 Warren MMF screws were placed, 2 in the [...] a combination of osteotomes and a Kaufman yard assistant. On both sides, the inferior alveolar nerve [...] FINDINGS: IMPRESSION: Single view of the filter [place] with linear radiopaque foreign body compatible with [...] FINDINGS: IMPRESSION: Single view of the filter [place] with linear radiopaque foreign body compatible with retained needle. MACRO: None RADIOLOGY Jerel Guzman MD - 07/14/2022 EXAMINATION: XR SKULL PA+LATERAL 07/14/2022 10:15 AM CLINICAL HISTORY: Reason for Exam: retained object. ASSOCIATED DIAGNOSIS: ORDERING PROVIDER: CORRINE RODRIGUES TECHNOLOGISTS NOTE: Image of filter for retained surgical needle per Dr. Rodrigues. COMPARISON: None FINDINGS: IMPRESSION: Single view of the filter [place] with linear radiopaque foreign body compatible with retained needle. 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 Normal [facility] Telephone Encounteron 2021 Appliance Mechanic Authentication Interface Message Text Patient states she is faxing over paperwork for her time off of work d/t surgery tomorrow, 07/14. Patient would like a call when this is received if possible. Please call [phone]. Patient informed it might not be possible, just in case. Thank you! Normal [facility] Telephone Encounteron 2021 Appliance Mechanic Authentication Interface Message Text [id number]: Contacted pt and informed her to call the ENT office to schedule appt with Dr Moreno s/p jaw surgery in about 3 months due to healing time. Pt verbalized understanding. Latoya Manzo RN Normal [facility] Appliance Mechanic Authentication Interface Message Text Dr. Joel, Patient calling stating that she is going forward with the jaw surgery that you recommended next 07/14/22. Patient would like to know what the next step is for after the surgery. PT: [phone] Thanks, D Normal [facility] ABO RH TYPEon 07-08-2022 ABO and Rh group Nom (Bld) Blood group B Rh(D) positive Normal [facility] Comment on above: Performed By: #### M MILO Alan CH8 #### [facility] [address] [place] [address], [phone] CBC panel Auto (Bld)on 07-08 Erythrocyte distribution width (RBC) [Ratio] 13.4 % 11.5 - 14.5 % [facility] Hematocrit (Bld) [Volume fraction] 42.2 % 36.0 - 46.0 % [facility] Hemoglobin (Bld) [Mass/Vol] 14.3 g/dL 12.0 - 15.0 g/dL [facility] Interpretation and review of laboratory results Normal [facility] MCH (RBC) [Entitic mass] 33.1 pg 26.0 - 34.0 pg [facility] MCHC (RBC) [Mass/Vol] 33.9 g/dL 32.0 - 35.9 g/dL [facility] MCV (RBC) [Entitic vol] 98 fL 80 - 100 fL [facility] Platelet mean volume (Bld) [Entitic vol] 8.8 fL 7.5 - 11.2 fL [facility] Platelets (Bld) [#/Vol] 274 10*3/uL 150 - 400 K/uL [facility] RBC (Bld) [#/Vol] 4.32 10*6/uL [facility] WBC (Bld) [#/Vol] 7.2 10*3/uL 4.5 - 11.5 K/uL [facility] COMPLETE BLOOD COUNTon 07-08 Erythrocyte distribution width (RBC) [Ratio] 13.4 % Normal 11.5-14.5 [facility] Comment on above: Performed By: #### C BC ####[facility] [id number] [place] [address], Hematocrit (Bld) [Volume fraction] 42.2 % Normal 36.0-46.0 [facility] Comment on above: Performed By: #### C BC ####[facility] [id number] [place] [address], Hemoglobin (Bld) [Mass/Vol] 14.3 g/dL Normal 12.0-15.0 [facility] Comment on above: Performed By: #### C BC ####[facility] [id number] [place] [address], MCH (RBC) [Entitic mass] 33.1 pg Normal 26.0-34.0 [facility] Comment on above: Performed By: #### C BC ####[facility] [id number] [place] [address], MCHC (RBC) [Mass/Vol] 33.9 g/dL Normal 32.0-35.9 [facility] Comment on above: Performed By: #### C BC ####S PATHOLOGY [id number] [place] [address], MCV (RBC) [Entitic vol] 98 fL Normal 80-100 T [facility] Comment on above: Performed By: #### C BC ####S PATHOLOGY [id number] [place] [address], Platelet mean volume (Bld) [Entitic vol] 8.8 fL Normal 7.5-11.2 [facility] Comment on above: Performed By: #### C BC ####[facility] [id number] [place], [place], Platelets (Bld) [#/Vol] 274 10*3/uL Normal 150-400 [facility] Comment on above: Performed By: #### C BC ####[facility] [id number] [place], [place], RBC (Bld) [#/Vol] 4.32 10*6/uL Normal 4.00-5.20 [facility] Comment on above: Performed By: #### C BC ####[facility] [id number] [place], [place], WBC (Bld) [#/Vol] 7.2 10*3/uL Normal 4.5-11.5 [facility] Comment on above: Performed By: #### C BC ####[facility] [id number] [place], [place], Laboratory - Blood bankon ABO and Rh group Nom (Bld) Blood group B Rh(D) positive [facility] No Panel Informationon 07-08 [facility] PSE Appt H AND Neftali Appliance Mechanic Authentication Interface Message Text Patient was identified by name and date of . Edwina Hudson Bill of rights provided to patient Normal [facility] Patient Instructionson 07-08 Appliance Mechanic Authentication Interface Message Text On the morning [...] for pain Please hold all Vitamin E, [place] 3, fish oil and herbal supplements for 1 week prior to surgery Normal [facility] TYPE AND SCREENon 07-08-2022 ABO and Rh group Nom (Bld) No Previous Results [facility] Comment on above: Patient does not req uire a 2nd sample drawn prior to surgery date of 07/14/2022___. Specimen meets Blood Bank's Pre-Surgical Protocol and is valid within 14 days from date of collection but will at midnight on the day of approved Surgery. Corrected Result : 07/08/2022 17:16:22 : By Transfusion Medicine Blood group antibody screen Ql Negative [facility] ABO and Rh group Nom (Bld) Blood group B Rh(D) positive Normal [facility] Comment on above: Performed By: #### MILO Mattson CH8 #### [facility] [address] [place] [address], ABO and Rh group Nom (Bld) No Previous Results Normal [facility] Comment on above: Result Comment: Deepa [...] MILO Mattson CH8 #### [facility] [address] [place] [address], ABSC INT Negative Normal [facility] Comment on above: Performed By: #### MILO Mattson CH8 #### [facility] [address] [place] [address], FREE T4on 07-07-2022 Free T4 [Mass/Vol] 0.83 ng/dL Normal 0.76-1.46 The [facility] Comment on above: Performed By: #### F T4 #### [facility] [address] [address] [address] Stephanie Gibbs TSHon 07-07-2022 TSH 3.715 uIU/mL Normal 0.358-3.740 The [facility] Comment on above: Performed By: #### C #### [facility] [address] [place], [place] [address] Dr. Stephanie Gibbs PSE Appt H AND Neftali Appliance Mechanic Authentication Interface Message Text Error Normal [facility] [employer] [facility] Progress Noteson 07-02-2022 Appliance Mechanic Authentication Interface Message Text Patient was seen in the OM clinic for alginate impressions of the edentulous maxilla and CBCT with denture in place. Seferino Vaz DMD OMFS Resident Normal [facility] Appliance Mechanic Authentication Interface Message Text ORAL SURGERY CLINIC FOLLOW UP VISIT Patient was seen in the OMFS clinic for alginate impressions of the edentulous maxilla and CBCT with denture in place. Seferino Vaz DMD FS Resident ms. Normal [facility] [facility] Patient Instructionson 06-18 Appliance Mechanic Authentication Interface Message Text Maxillomandibular advancement surgery, [...] daytime fatigue and inconsistent sleep. Normal [facility] [facility] Progress Noteson 06-18-2022 Appliance Mechanic Authentication Interface Message Text OMFS PATIENT VISIT CHIEF COMPLAINT: sleep apnea HISTORY OF PRESENT ILLNESS: Patient presents for evaluation for surgical treatment of DIONNE. She is extremely symptomatic from her DIONNE, and suffers from CPAP intolerance. Sodus sleepiness scale is 18. Patient is starting [...] norms. Retrognathic mandible. DIAGNOSIS: Obstructive sleep apnea [422474] TREATMENT: Exam, Panorex evaluated, and pictures/models taken [...] for (more content not included)... Normal [facility] [facility] Progress Noteson 06-15-2022 Appliance Mechanic Authentication Interface Message Text CC: sleep disordered [...] nerve stimulator implanted following MMA Normal The [facility] Anesthesia Attestationon Appliance Mechanic Authentication Interface Message Text Anesthesia Attestation ATTESTATION OF INFORMED CONSENT FOR ANESTHESIA Anesthesia options were discussed with the patient and/or legal phone representative. The risks, benefits and alternatives were reviewed. Questions regarding anesthesia were answered. Patient and/or legal phone representative knows such anesthetics and procedures may be performed by Resident physicians, Certified Anesthesiologist Assistants, or Certified Nurse Anesthetists under the supervision of a physician. The patient /or the patient's legal phone representative agree with the plan for anesthesia. Normal [facility] Anesthesia Postprocedure Lauren patel 06-03-2022 Appliance Mechanic Authentication Interface Message Text Anesthesia Postoperative Assessment: [...] EVENTS: No notable events documented. Normal [facility] Anesthesia Preprocedure Eval wilfredon 06-03-2022 Appliance Mechanic Authentication Interface Message Text ASA: 2 No [...] the history and physical examination. Normal [facility] Anesthesia Transfer Of Careo n 06-03-2022 Appliance Mechanic Authentication Interface Message Text Patient taken to [...] report was received. CINTIA Patel Normal [facility] Brief Operative Noteon 06-03 Appliance Mechanic Authentication Interface Message Text Brief Operative Note PACU 19 Isabelle Hewitt 47 year old female Surgical Contact Serial Number: [id number] Preoperative Diagnosis: DIONNE (obstructive sleep apnea) [G47.33] [...] Brown PA-C 06/03/2022 2:48 PM Normal [facility] OP Noteon 06-03-2022 Appliance Mechanic Authentication Interface Message Text Name: ISABELLE HEWITT MR#: [id number] ENC#: [id number] Date of Procedure: 06/03/2022 ATTENDING SURGEON: Yi [...] Dict: 06/03/2022 15:35:21 TRANS: 06/04/2022 07:02:00 JOB: [id number] DictJob#: [id number] Normal [facility] Progress Noteson 06-03-2022 Appliance Mechanic Authentication Interface Message Text Discharge instructions reviewed in preop with patient. Patient verbalized understanding. No questions at this time. Normal [facility] Telephone Encounteron 2021 Appliance Mechanic Authentication Interface Message Text Pre-op COVID test results received AND scanned into [employer]. Results NEGATIVE on 05/31/2022. Scheduled for DISE on 06/03/2022. Normal [facility] COVID Quick Testingon 2021 Result Negative [employer] Systems Other PSE Call H AND Neftali Appliance Mechanic Authentication Interface Message Text Telephone History Isabelle Hewitt, [id number] 05/28/2022 47 year old 190 lbs 5' [...] capsul (more content not included)... Normal [facility] Telephone Encounteron 2021 Appliance Mechanic Authentication Interface Message Text Patient is scheduled for DISE on 06/03/2022. Prefers to complete pre-op COVID testing closer to home. Instructed to obtain testing 48-72 hours prior to surgery and bring copy of results on day of surgery. PSE contact information provided. Normal [facility] Addendum Noteon 05-26-2022 Appliance Mechanic Authentication Interface Message Text Addended by: YI MORENO on: 05/26/2022 05:25 PM Modules accepted: Orders Normal [facility] Telephone Encounteron 2021 Appliance Mechanic Authentication Interface Message Text Arrangements to be made for pre-op COVID testing per ENT request. Normal [facility] MRI PITUITARY WO W CONon MRI [...] enhancing pituitary mass Electronically authenticated by: WILEY JAMES Date: 2022-05-18 13:10 Normal [facility] US PELVIS AND TRANSVAGon US PELVIS [...] MADDI WINSTON Date: 2022-05-11 16:51 Normal [facility] ESTRADIOLon 05-08-2022 Estradiol 16.3 pg/mL Normal [facility] Comment on above: Result Comment: Adul t Female: Follicular phase 12.5 - 166.0 Ovulation phase 85.8 - 498.0 Luteal phase 43.8 - 211.0 Postmenopausal <6.0 - 54.7 1st trimester 215.0 - >4300.0 Salma ECLIA methodology Performed By: #### C BC #### [facility] [address] [place] [address] Dr. Stephanie Gibbs FSHon 05-08-2022 FSH 11.3 mIU/mL Normal [facility] Comment on above: Result Comment: Adul t Female: Follicular phase 3.5 - 12.5 Ovulation phase 4.7 - 21.5 Luteal phase 1.7 - 7.7 Postmenopausal 25.8 - 134.8 Performed By: #### C BC #### [facility] [address] [address] [address] Stephanie Gibbs LUTEINIZING HORMONE (LH)on 0 05-08-2022 LH 4.7 mIU/mL Normal [facility] Comment on above: Result Comment: Adul t Female: Follicular phase 2.4 - 12.6 Ovulation phase 14.0 - 95.6 Luteal phase 1.0 - 11.4 Postmenopausal 7.7 - 58.5 Performed By: #### L BCLH #### [facility] [address] [place] [address] Dr. Stephanie Gibbs PROGESTERONEon 05-08-2022 Progesterone 0.2 ng/mL Normal [facility] Comment on above: Result Comment: Foll icular phase 0.1 - 0.9 Luteal phase 1.8 - 23.9 Ovulation phase 0.1 - 12.0 First trimester 11.0 - 44.3 Second trimester 25.4 - 83.3 Third trimester 58.7 - 214.0 Postmenopausal 0.0 - 0.1 Performed By: #### P AARTI #### [facility] [address] [place] [address] Dr. Stephanie Gibbs PROLACTINon 05-08-2022 Prolactin 43.0 ng/mL Critically high 4.8-23.3 [facility] Comment on above: Performed By: #### F T4 #### [facility] [address] [place] [address] Dr. Stephanie Gibbs CBC AUTO DIFFon 05-07-2022 BASO # 0.1 103/ul Normal 0.0-0.1 [facility] Comment on above: Performed By: #### C BC #### [facility] [address] [place] [address] Dr. Stephanie Gibbs Basophils/100 WBC (Bld) 1.0 % Normal 0.2-2.0 [facility] Comment on above: Performed By: #### C BC #### [facility] [address] [place] [address] Dr. Stephanie Gibbs EO # 0.2 103/ul Normal 0.0-0.7 [facility] Comment on above: Performed By: #### C BC #### [facility] [address] [place] [address] Dr. Stephanie Gibbs Eosinophils/100 WBC (Bld) 2.7 % Normal 0.9-7.0 [facility] Comment on above: Performed By: #### C BC #### [facility] [address] [place] [address] Dr. Stephanie Gibbs Erythrocyte distribution width (RBC) [Ratio] 13.0 % Normal 11.0-15.0 [facility] Comment on above: Performed By: #### C BC #### [facility] [address] [place] [address] Dr. Stephanie Gibbs Hematocrit (Bld) [Volume fraction] 39.0 % Normal 36.0-48.0 [facility] Comment on above: Performed By: #### C BC #### [facility] [address] [address] [address] Stephanie Gibbs Hemoglobin (Bld) [Mass/Vol] 13.0 g/dL Normal 12.0-16.0 [facility] Comment on above: Performed By: #### C BC #### [facility] [address] [address] [address] Stephanie Gibbs IG # 0.03 10e3/ul Normal 0.00-0.03 [facility] Comment on above: Performed By: #### C BC #### [facility] [address] [place] [address] Dr. Stephanie Gibbs IG % 0.4 % Normal 0.0-0.5 [facility] Comment on above: Performed By: #### C BC #### [facility] [address] [place] [address] Dr. Stephanie Gibbs LYMPH # 2.4 103/ul Normal 1.2-3.8 [facility] Comment on above: Performed By: #### C BC #### [facility] [address] [place] [address] Dr. Stephanie Gibbs Lymphocytes/100 WBC (Bld) 33.8 % Normal 20.5-60.0 [facility] Comment on above: Performed By: #### C BC #### [facility] [address] [place] [address] Dr. Stephanie Gibbs MANUAL DIFF REQ NO Normal [facility] Comment on above: Performed By: #### C BC #### [facility] [address] [place] [address] Dr. Stephanie Gibbs MCH (RBC) [Entitic mass] 32.2 pg Normal 26.7-34.0 [facility] Comment on above: Performed By: #### C BC #### [facility] [address] [place] [address] Dr. Stephanie Gibbs MCHC (RBC) [Mass/Vol] 33.3 g/dL Normal 29.9-35.2 [facility] Comment on above: Performed By: #### C BC #### [facility] [address] [address] [address] Stephanie Gibbs MCV (RBC) [Entitic vol] 96.5 fL Normal 81.0-99.0 [facility] Comment on above: Performed By: #### C BC #### [facility] [address] [address] [address] Stephanie Gibbs MONO # 0.4 103/ul Normal 0.3-0.8 [facility] Comment on above: Performed By: #### C BC #### [facility] [address] [address] [address] Stephanie Gibbs Monocytes/100 WBC (Bld) 5.9 % Normal 1.7-12.0 [facility] Comment on above: Performed By: #### C BC #### [facility] [address] [address] [address] Stephanie Gibbs NEUT # 4.0 103/ul Normal 1.4-6.5 [facility] Comment on above: Performed By: #### C BC #### [facility] [address] [address] [address] Stephanie Gibbs Neutrophils/100 WBC (Bld) 56.2 % Normal 43.0-75.0 [facility] Comment on above: Performed By: #### C BC #### [facility] [address] [address] [address] Stephanie Gibbs Platelet mean volume (Bld) [Entitic vol] 9.8 fL Normal 9.5-13.5 [facility] Comment on above: Performed By: #### C BC #### [facility] [address] [address] [address] Stephanie Gibbs PLT 245 103/ul Normal 150-450 [facility] Comment on above: Performed By: #### C BC #### [facility] [address] [address] [address] Stephanie Gibbs RBC 4.04 106/ul Critically low 4.20-5.40 [facility] Comment on above: Performed By: #### C BC #### [facility] [address] [address] [address] Stephanie Gibbs WBC 7.2 103/ul Normal 4.0-11.0 [facility] Comment on above: Performed By: #### C BC #### [facility] [address] [place] [address] Dr. Stephanie Gibbs FREE T4on 05-07-2022 Free T4 [Mass/Vol] 0.69 ng/dL Critically low 0.76-1.46 [facility] Comment on above: Performed By: #### C BC #### [facility] [address] [place] [address] Dr. Stephanie Gibbs GLYCOHEMOGLOBIN A1Con 2021 ADA RECOMMENDATION SEE BELOW Normal [facility] Comment on above: Result Comment: ADA RECOMMENDED LIMIT 4.0 - 6.0 ADA THERAPEUTIC TARGET < 7.0 ACTION SUGGESTED > 7.0 Performed By: #### C BC #### [facility] [address] [place] [address] Dr. Stephanie Gibbs Glucose [Mass/Vol] 128 mg/dL Normal [facility] Comment on above: Performed By: #### C BC #### [facility] [address] [place] [address] Dr. Stephanie Gibbs HbA1c (Bld) [Mass fraction] 6.1 % Normal 4.5-6.2 [facility] Comment on above: Performed By: #### C BC #### [facility] [address] [place] [address] Dr. Stephanie Gibbs TSHon 05-07-2022 TSH 2.391 uIU/mL Normal 0.358-3.740 [facility] Comment on above: Performed By: #### F T4 #### [facility] [address] [place] [address] Dr. Stephanie Gibbs Progress Noteson 03-29-2022 Appliance Mechanic Authentication Interface Message Text .Documentation: Mode: Telephone Patient Home Phone: Patient Patient Cell Preferred phone: [phone] Consent: I confirmed patient understanding of the [...] seen on prior sleep endoscopy Normal [facility] [employer] FREE T4on 03-09-2022 Free T4 [Mass/Vol] 1.08 ng/dL Normal 0.76-1.46 [facility] Comment on above: Performed By: #### F T4 #### [facility] [address] [place] [address] Dr. Stephanie Gibbs LIPID PROFILEon 03-09-2022 CHOL-HDL RATIO NORM SEE BELOW Normal [facility] Comment on above: Result Comment: 3.3 - 4.4 LOW RISK 4.4 - 7.1 AVERAGE RISK 7.1 - 11.0 MODERATE RISK >11.0 HIGH RISK Performed By: #### F T4 #### [facility] [address] [place] [address] Dr. Stephanie Gibbs Cholesterol [Mass/Vol] 205 mg/dL Critically high <=200 [facility] Comment on above: Performed By: #### F T4 #### [facility] [address] [address] [address] Stephanie Gibbs Cholesterol in HDL [Mass/Vol] 44 mg/dL Normal 40-60 [facility] Comment on above: Performed By: #### F T4 #### [facility] [address] [place] [address] Dr. Stephanie Gibbs Cholesterol in LDL [Mass/Vol] 126.6 mg/dL Normal [facility] Comment on above: Performed By: #### F T4 #### [facility] [address] [address] [address] Stephanie Gibbs Cholesterol.total/Edu sterol in HDL [Mass ratio] 4.7 {ratio} Normal [facility] Comment on above: Performed By: #### F T4 #### [facility] [address] [address] [address] Stephanie Gibbs HDL NORMAL > or = 60 mg/dl - LO W CARDIOVASCULAR RISK <40 mg/dl - HIGH CARDIOVASCULAR RISK Normal [facility] Comment on above: Performed By: #### F T4 #### [facility] [address] [address] [address] Stephanie Gibbs LDL CALC NORMAL SEE BELOW Normal [facility] Comment on above: Result Comment: <100 mg/dl OPTIMAL 100 - 129 mg/dl NEAR OR ABOVE OPTIMAL 130 - 159 mg/dl BORDERLINE HIGH 160 - 189 mg/dl HIGH >190 mg/dl VERY HIGH Performed By: #### F T4 #### [facility] [address] [address] [address] Stephanie Gibbs Triglyceride [Mass/Vol] 172 mg/dL Critically high <=150 [facility] Comment on above: Performed By: #### F T4 #### [facility] [address] [place] [address] Dr. Stephanie Gibbs VLDL CALC 34.4 mg/dL Normal [facility] Comment on above: Performed By: #### F T4 #### [facility] [address] [address] [address] Stephanie Gibbs PROF 14(COMP METB)on 022 Albumin [Mass/Vol] 3.7 g/dL Normal 3.4-5.0 [facility] Comment on above: Performed By: #### F T4 #### [facility] [address] [place] [address] Dr. Stephanie Gibbs Albumin/Globulin [Mass ratio] 0.8 {ratio} Normal [facility] Comment on above: Performed By: #### F T4 #### [facility] [address] [place] [address] Dr. Stephanie Gibbs ALP [Catalytic activity/Vol] 121 U/L Critically high 46-116 [facility] Comment on above: Performed By: #### F T4 #### [facility] [address] [address] [address] Stephanie Gibbs ALT [Catalytic activity/Vol] 39 U/L Normal 14-59 [facility] Comment on above: Performed By: #### F T4 #### [facility] [address] [place] [address] Dr. Stephanie Gibbs Anion gap [Moles/Vol] 12.6 mmol/L Normal [facility] Comment on above: Performed By: #### F T4 #### [facility] [address] [place] [address] Dr. Stephanie Gibbs AST [Catalytic activity/Vol] 21 U/L Normal 15-37 [facility] Comment on above: Performed By: #### F T4 #### [facility] [address] [place] [address] Dr. Stephanie Gibbs Bilirubin [Mass/Vol] 0.4 mg/dL Normal 0.2-1.0 [facility] Comment on above: Performed By: #### F T4 #### [facility] [address] [place] [address] Dr. Stephanie Gibbs Calcium [Mass/Vol] 9.1 mg/dL Normal 8.5-10.1 [facility] Comment on above: Performed By: #### F T4 #### [facility] [address] [place] [address] Dr. Stephanie Gibbs Chloride [Moles/Vol] 102 mmol/L Normal 98-107 [facility] Comment on above: Performed By: #### F T4 #### [facility] [address] [place] [address] Dr. Stephanie Gibbs CO2 [Moles/Vol] 28.1 mmol/L Normal 21.0-32.0 [facility] Comment on above: Performed By: #### F T4 #### [facility] [address] [place] [address] Dr. Stephanie Gibbs Creatinine [Mass/Vol] 0.95 mg/dL Normal 0.55-1.02 [facility] Comment on above: Performed By: #### F T4 #### [facility] [address] [place] [address] Dr. Stephanie Gibbs EGFR-AF [place]ER >60 Normal >=60 [facility] Comment on above: Performed By: #### F T4 #### [facility] [address] [address] [address] Stephanie Gibbs EGFR-NON AF [place]ER >60 Normal >=60 [facility] Comment on above: Performed By: #### F T4 #### [facility] [address] [place] [address] Dr. Stephanie Gibbs Globulin (S) [Mass/Vol] 4.8 g/dL Normal [facility] Comment on above: Performed By: #### F T4 #### [facility] [address] [place] [address] Dr. Stephanie Gibbs Glucose [Mass/Vol] 106 mg/dL Normal 74-106 [facility] Comment on above: Performed By: #### F T4 #### [facility] [address] [place] [address] Dr. Stephanie Gibbs Potassium [Moles/Vol] 3.7 mmol/L Normal 3.5-5.1 [facility] Comment on above: Performed By: #### F T4 #### [facility] [address] [place] [address] Dr. Stephanie Gibbs Protein [Mass/Vol] 8.5 g/dL Critically high 6.4-8.2 [facility] Comment on above: Performed By: #### F T4 #### [facility] [address] [place] [address] Dr. Stephanie Gibbs Sodium [Moles/Vol] 139 mmol/L Normal 136-145 [facility] Comment on above: Performed By: #### F T4 #### [facility] [address] [place] [address] Dr. Stephanie Gibbs Urea nitrogen [Mass/Vol] 14.0 mg/dL Normal 7.0-18.0 [facility] Comment on above: Performed By: #### F T4 #### [facility] [address] [address] [address] Stephanie Gibbs Urea nitrogen/Creatinine [Mass ratio] 14.7 mg/mg Normal [facility] Comment on above: Performed By: #### F T4 #### [facility] [id number] Stephanie Gibbs TSHon 03-09-2022 TSH 0.446 uIU/mL Normal 0.358-3.740 [facility] Comment on above: Performed By: #### F T4 #### [facility] [address] [address] [address] Stephanie Gibbs Telephone Encounteron 2021 Appliance Mechanic Authentication Interface Message Text Patient calling in [...] to turn it in is 03/19/22. #: [phone] Normal [facility] Care Plan Noteon 02-26-2022 Appliance Mechanic Authentication Interface Message Text Problem: Routine Care: [...] met Outcome: Adequate for Discharge Normal [facility] [employer] [facility] Appliance Mechanic Authentication Interface Message Text Problem: Routine Care: [...] will be met Outcome: Progressing Normal [facility] Anesthesia Attestationon Appliance Mechanic Authentication Interface Message Text Anesthesia Attestation ATTESTATION OF INFORMED CONSENT FOR ANESTHESIA Anesthesia options were discussed with the patient and/or legal phone representative. The risks, benefits and alternatives were reviewed. Questions regarding anesthesia were answered. Patient and/or legal phone representative knows such anesthetics and procedures may be performed by Resident physicians, Certified Anesthesiologist Assistants, or Certified Nurse Anesthetists under the supervision of a physician. The patient /or the patient's legal phone representative agree with the plan for anesthesia. Normal [facility] Anesthesia Postprocedure Lauren luationon 02-25-2022 Appliance Mechanic Authentication Interface Message Text Anesthesia Postoperative Assessment: [...] ANESTHESIA COMPLICATIONS: No complications documented. 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 Normal [facility] Anesthesia Transfer Of Careo n 02-25-2022 Appliance Mechanic Authentication Interface Message Text Patient taken to [...] Maite Youssef MD CAA: Mariaa Meneses CAA DIVE SUPERINTENDENT: Cari Hurtado APRN-CRNA Support Clerk: Carol Barrera MD Anesthesia Student: Prema Norris [...] report was received. PADMINI Chiang Normal [facility] Blood Attestationon 02-26-20 Appliance Mechanic Authentication Interface Message Text Blood Attestation ATTESTATION OF INFORMED CONSENT FOR BLOOD The transfusion of blood and/or blood components were discussed with the patient and/or legal phone representative. The risks, benefits and alternatives were reviewed. Questions regarding blood transfusions were answered. The patient /or the patient's legal phone representative agree with the plan for transfusion of blood and/or blood components. Normal [facility] Brief Operative Noteon 02-25 Appliance Mechanic Authentication Interface Message Text Brief Operative Note MAIN OR 11 Isabelle Hewitt 46 year old female Surgical Contact Serial Number: [id number] Preoperative Diagnosis: DIONNE (obstructive sleep apnea) [G47.33] Postoperative Diagnosis: * DIONNE (obstructive sleep apnea) [G47.33] Procedures: Surgical CPTs Procedures * PALATOPHARYNGOPLASTY No data filed Surgeon(s): Surgeon(s): Yi Moreno MD Staff: Scrub: Wiley Álvarez Projection Printer Nurse: Mariaa Briseno; Dulce Allred; Babs Wells RN Automobile Dealer: Yi Piña MD; Unruly Biggs MD Anesthesia: Consult Anesthesiologist: Maite Youssef MD CAA: Mariaa Meneses CAA DIVE SUPERINTENDENT: Cari Hurtado APRN-CRNA Support Clerk: Carol Barrera MD Anesthesia Student: Prema Norris [...] Moreno MD 02/25/2022 10:40 AM Normal [facility] Care Plan Noteon 02-25-2022 Appliance Mechanic Authentication Interface Message Text Problem: Routine Care: [...] will be met Outcome: Progressing Normal [facility] OP Noteon 02-25-2022 Appliance Mechanic Authentication Interface Message Text [id number] Isabelle Vallejoravindra 1975 @PATFNAME@ @PATIENTLASTNAME@ [id number] Preoperative diagnosis: 1. Obstructive sleep apnea 2. [...] to recovery in stable condition. Normal [facility] Progress Noteson 02-25-2022 Appliance Mechanic Authentication Interface Message Text No excessive swallowing. [...] Positive Positive [facility] Telephone Encounteron 2021 Appliance Mechanic Authentication Interface Message Text PSE received pre-op COVID test results - NOT DETECTED on 02/23/2022. Document scanned into [employer]. Normal [facility] Covid-19 PCR (CVDTBH)on SARS-CoV-2 (COVID-19) RNA JOHNNIE+probe Ql (Unsp spec) Not detected Normal NOT DETECTED [facility] Comment on above: Result Comment: When [...] for this test is supported by the [place] of Health and Human Service's declaration that [...] used). Performed By: #### C BC #### [facility] [address] [place] [address] Dr. Stephanie Gibbs XR ABDOMEN (KUB) (SINGLE [...] definite urinary tract or other significant calcifications [facility] Adali Gill M D - 02/19/2022 [...] pattern, large colonic fecal Stable left nephrolithiasis [place] Phone: Radiology Study observation (narrative) [facility] Phone: XR ABDOMEN (KUB) (SINGLE AP VIEW)Ordered By: Adali Gill on 02-19-2022 [place] Phone: EKG 12 LEAD - PERFORMon 01-21 Diagnosis Normal sinus rhythm Nonspecific T wave abnormality Abnormal ECG No previous ECGs available Confirmed by OLGA MONTES ([id number]) on 02/17/2022 9:51:58 PM [facility] P wave [facility] by EKG 72 BPM [facility] Interval 154 ms [facility] Q-T interval 416 ms [facility] Q-T interval corrected 455 ms [facility] QRS axis 10 degrees [facility] QRS duration 78 ms [facility] T wave axis [facility] degrees [facility] Telephone Encounteron 2021 SARS-CoV-2 (COVID-19) RNA JOHNNIE+probe Ql (Unsp spec) Patient is scheduled for surgery 02/25/2022. Prefers to complete pre-op COVID testing closer to home. Instructed to obtain testing 48-72 hours prior to surgery and bring copy of results on day of surgery. PSE contact information provided, order faxed to [facility] per patient request. Normal [employer] PSE Appt H AND Neftali 2 Appliance Mechanic Authentication Interface Message Text Patient was identified by name and date of . Quinton Manzo Bill of rights provided to patient Normal [employer] Patient Instructionson 02-16 Appliance Mechanic Authentication Interface Message Text On the morning [...] for pain Please hold all Vitamin E, [place] 3, fish oil and herbal supplements for 1 week prior to surgery Normal [employer] Telephone Encounteron 2021 Appliance Mechanic Authentication Interface Message Text Arrangements to be made for pre-op COVID testing per ENT request. Normal [employer] FLUORO FOR SURGICAL PROCEDUR ESon 01-05-2022 Radiology exam is complete. No Radiologist dictation. Please follow up with ordering provider. [facility] RIS CONSOLIDATED , Urineon 2 Beta HCG ( test) Ql (U) Negative NEGATIVE [facility] Comment on above: Specimens with hCG l evels near the threshold of the test (25 mIU/mL) may give a negative or indeterminate result. In such cases, another test should be performed with a new specimen in 48-72 hours. If early is suspected clinically in this setting, correlation with quantitative serum b-hCG level is suggested. [employer] has confirmed the use of plasma for this test. This has not been cleared or approved by the U.S. Food and Drug Administration. The FDA has determined that such clearance is not necessary. [facility] Basic Metabolic Panelon 12-20 Anion gap [Moles/Vol] 8 mmol/L Low 9 - 17 mmol/L [facility] Calcium [Mass/Vol] 8.9 mg/dL 8.6 - 10. 4 mg/dL [facility] Chloride [Moles/Vol] 101 mmol/L 98 - 10 7 mmol/L [facility] CO2 [Moles/Vol] 29 mmol/L 20 - 31 mmol/L [facility] Creatinine [Mass/Vol] 0.87 mg/dL 0.50 - 0.90 mg/dL [facility] GFR >60 >60 mL/min [facility] GFR Non- >60 >60 mL/min [facility] Glucose [Mass/Vol] 98 mg/dL 70 - 99 mg/dL [facility] Interpretation and review of laboratory results Abnormal [facility] Potassium [Moles/Vol] 4.3 mmol/L 3.7 - 5.3 mmol/L [facility] Sodium [Moles/Vol] 138 mmol/L 135 - 144 mmol/L [facility] Urea nitrogen (BldV) [Mass/Vol] 8 mg/dL 6 - 20 mg/dL [facility] Urea nitrogen/Creatinine (Bld) [Mass ratio] 9 [facility] MAYKOR CBC with Auto Differentialon 12-30-2021 Absolute Eos # 0.38 [facility] th Absolute Immature Granulocyte 0.06 [facility] Absolute Lymph # 2.56 [facility] He alth Absolute Juab [facility].69 [facility] Basophils (Bld) [#/Vol] 0.09 10*3/uL [facility] Basophils/100 WBC (Bld) 1 % 0 - 2 % [facility] MAYKOR Eosinophils/100 WBC (Bld) 4 % 1 - 4 % [facility] Hematocrit (Bld) [Volume fraction] 38.7 % 36.3 - 47.1 % [facility] Hemoglobin.gastrointest inal spec 1 Ql (Stl) 13.0 g/dL 11.9 - 15.1 g/dL [facility] Immature granulocytes/100 WBC (Bld) 1 % High 0 [facility] Interpretation and review of laboratory results Abnormal [facility] Lymphocytes/100 WBC (Bld) 27 % 24 - 43 % [facility] MCH (RBC) [Entitic mass] 33.1 pg 25.2 - 33.5 pg [facility] MCHC (RBC) [Mass/Vol] 33.6 g/dL 28.4 - 34.8 g/dL [facility] MCV (RBC) [Entitic vol] 98.5 fL 82.6 - 102.9 fL [facility] Monocytes/100 WBC (Bld) 7 % 3 - 12 % M [facility] NRBC Automated 0.0 0.0 per 100 WBC [facility] Platelet distribution width (Bld) [Ratio] 12.9 % 11.8 - 14.4 % [facility] Platelet mean volume (Bld) [Entitic vol] 9.8 fL 8.1 - 13.5 fL [facility] Platelets (Bld) [#/Vol] 284 10*3/uL [facility] RBC (Bld) [#/Vol] 3.93 10*6/uL Low 3.95 - 5.1 1 m/uL [facility] Segmented neutrophils/100 WBC (Bld) 60 % 36 - 65 % [facility] Segs Absolute 5.62 [facility] (Bld) [#/Vol] 9.4 10*3/uL [facility] - Chemistry and C hemistry - challengeon 12-30-2021 GFR/1.73 sq M.predicted MDRD (S/P/Bld) [Vol rate/Area] [facility] Comment on above: Average GFR for 40-4 9 years old: 99 mL/min/1.73sq m Chronic Kidney Disease: <60 mL/min/1.73sq m Kidney failure: <15 mL/min/1.73sq m eGFR calculated using average adult body mass. Additional eGFR calculator available at: http://www.eYeka.Mantis Deposition/multiple_crcl_2011.htm Stage 1: Some kidney damage normal GFR [...] or ureteral stones. No acute osseous abnormality. [facility] CONSOLID[facility] Perry Neely DO - [...] pattern. No definite renal or ureteral stones. [employer] Phone: Radiology Study observation (narrative) [employer] Phone: XR ABDOMEN (KUB) (SINGLE AP VIEW)Ordered By: Perry Neely on 12-22-2021 [employer] Phone: Office Visit (Cardiology)on 12-02-2021 Follow-up visit [...] Recorded: 02Dec2021 03:38PM Heart Rate72, R Radial [id number] Height5 ft 2 in Eeujyf655 lb BMI Erifququyx93.47 kg/m2 BSA Calculated1.84 Tobacco Useb) No PHQ-2 [...] Dec 02 2021 5:03PM EST (Author) Normal [employer] Tobacco Screening.on 022 Adult depression screening assessment No -[facility] DO Work Phone: Tobacco use status CPHS b) No M -[facility] [facility] DO Work Phone: Office [...] IO EKG Electrocardiogram- 12 Lead; Status:Complete; Done: [id number] Class 1 obesity with body mass index (BMI) of 33.0 to 33.9 in adult Healthy Weight Tips; Status:Complete - Retrospective Authorization; Done: [id number] Health Maintenance Depression Follow-up Visit Outpatient Follow-up Status: Complete - Retrospective Authorization Done: [id number] SocHx: Former smoker Tobacco Use Screening; Status:Complete; Done: [id number] Tobacco Use Screening; Status:Complete; Done: [id number] Unlinked Stop: Furosemide 40 MG Oral Tablet Stop: Potassium Chloride ER 20 MEQ Oral Tablet Extended Release Patient Instructions By signing my name below, IRicco LPN, Scribjacob, attest that this documentation has been prepared [...] Screening.on 022 Adult depression screening assessment Yes -[facility] DO Work Phone: Tobacco use status CPHS b) No M -[facility] 250 DO Work Phone: Tobacco Screening. 1-Several days [facility] Kiko y 250 DO Work Phone: Tobacco Screening. 3-Nearly every day [facility] K[facility] y 250 DO Work Phone: Tobacco Screening. 0-Not at all [facility] y 250 DO Work Phone: Tobacco Screening. 2-More than half the days [facility] 250 DO Work Phone: Vital Signs Date Time Vital Sign Value Performing Clinician Facility 02-13-2025 13:44-0400 Body mass index (BMI) [Ratio] 22.35 kg/m2 Larry Kirby BUSINESS PROGRAMMER Work Phone: [facility] 02-13-2025 13:44-0400 Body temperature 97.81 [degF] Larry Kirby BUSINESS PROGRAMMER Work Phone: [facility] 02-13-2025 13:44-0400 Body weight 55.43 kg Larry Kirby BUSINESS PROGRAMMER Work Phone: [facility] 02-13-2025 13:44-0400 Diastolic blood pressure 70 mm[Hg] Larry Kirby BUSINESS PROGRAMMER Work Phone: [facility] 02-13-2025 13:44-0400 Heart rate 67 /min Larry Kirby BUSINESS PROGRAMMER Work Phone: [facility] 02-13-2025 13:44-0400 Respiratory rate 18 /min Larry Kirby BUSINESS PROGRAMMER Work Phone: [facility] 02-13-2025 13:44-0400 SaO2% (BldA) [Mass fraction] 98 % Larry Aichholz BUSINESS PROGRAMMER Work Phone: [facility] 02-13-2025 13:44-0400 Systolic blood pressure 110 mm[Hg] Larry Keciaz BUSINESS PROGRAMMER Work Phone: [facility] 01-22-2025 14:06-0400 Body height 157.5 cm Mark Olmedo PA Work Phone: [facility] 01-22-2025 14:06-0400 Body mass index (BMI) [Ratio] 24.14 kg/m2 Mark Olmedo PA Work Phone: [facility] 01-22-2025 14:06-0400 Body weight 59.88 kg Mark Olmedo PA Work Phone: [facility] 01-07-2025 16:04-0400 Body mass index (BMI) [Ratio] 23.85 kg/m2 Larry Keciaz BUSINESS PROGRAMMER Work Phone: [facility] 01-07-2025 16:04-0400 Body temperature 98.49 [degF] Larry Keciaz BUSINESS PROGRAMMER Work Phone: [facility] 01-07-2025 16:04-0400 Body weight 59.15 kg Larry Keciaz BUSINESS PROGRAMMER Work Phone: [facility] 01-07-2025 16:04-0400 Diastolic blood pressure 82 mm[Hg] Larry Keciaz BUSINESS PROGRAMMER Work Phone: [facility] 01-07-2025 16:04-0400 Heart rate 79 /min Larry Nickholz BUSINESS PROGRAMMER Work Phone: [facility] 01-07-2025 16:04-0400 Respiratory rate 18 /min Larry Nickholz BUSINESS PROGRAMMER Work Phone: [facility] 01-07-2025 16:04-0400 SaO2% (BldA) [Mass fraction] 95 % Larry Keciaz BUSINESS PROGRAMMER Work Phone: [facility] 01-07-2025 16:04-0400 Systolic blood pressure 124 mm[Hg] Larry Elvishholz BUSINESS PROGRAMMER Work Phone: [facility] 12-25-2024 14:36-0400 Body mass index (BMI) [Ratio] 24.53 kg/m2 Oswald Len DO Work Phone: [facility] 12-25-2024 14:36-0400 Body weight 60.84 kg Oswald Len DO Work Phone: [facility] 12-25-2024 14:36-0400 Diastolic blood pressure 80 mm[Hg] Oswald Len DO Work Phone: [facility] 12-25-2024 14:36-0400 Systolic blood pressure 124 mm[Hg] Oswald Len DO Work Phone: [facility] 12-11-2024 11:09-0400 Body mass index (BMI) [Ratio] 24.69 kg/m2 Oswald Len DO Work Phone: [facility] 12-11-2024 11:09-0400 Body weight 61.24 kg Oswald Len DO Work Phone: [facility] 12-11-2024 11:09-0400 Diastolic blood pressure 72 mm[Hg] Oswald Len DO Work Phone: [facility] 12-11-2024 11:09-0400 Systolic blood pressure 120 mm[Hg] Oswald Len DO Work Phone: [facility] 11-22-2024 15:43-0400 Body mass index (BMI) [Ratio] 25.51 kg/m2 Aurea GAVIRIA Work Phone: [facility] 11-22-2024 15:43-0400 Body weight 63.28 kg Aurea GAVIRIA Work Phone: [facility] 11-22-2024 15:43-0400 Diastolic blood pressure 90 mm[Hg] Aurea GAVIRIA Work Phone: [facility] 11-22-2024 15:43-0400 Systolic blood pressure 120 mm[Hg] Aurea Tari PA Work Phone: [facility] 11-20-2024 14:30-0400 Body mass index (BMI) [Ratio] 25.79 kg/m2 Larry Kofi BUSINESS PROGRAMMER Work Phone: [facility] 11-20-2024 14:30-0400 Body temperature 97.81 [degF] Larry Kofi BUSINESS PROGRAMMER Work Phone: [facility] 11-20-2024 14:30-0400 Body weight 63.96 kg Larry Kofi BUSINESS PROGRAMMER Work Phone: [facility] 11-20-2024 14:30-0400 Diastolic blood pressure 76 mm[Hg] Larry Kofi BUSINESS PROGRAMMER Work Phone: [facility] 11-20-2024 14:30-0400 Heart rate 76 /min Larry Kofi BUSINESS PROGRAMMER Work Phone: [facility] 11-20-2024 14:30-0400 Respiratory rate 18 /min Larry Kofi BUSINESS PROGRAMMER Work Phone: [facility] 11-20-2024 14:30-0400 SaO2% (BldA) [Mass fraction] 99 % Larry Kofi BUSINESS PROGRAMMER Work Phone: [facility] 11-20-2024 14:30-0400 Systolic blood pressure 118 mm[Hg] Larry Kofi BUSINESS PROGRAMMER Work Phone: [facility] 10-23-2024 15:20-0500 Body height 157.48 cm [facility] 10-23-2024 15:20-0500 Body mass index (BMI) [Ratio] 25.6 kg/m2 [facility] 10-23-2024 15:20-0500 Body weight 63.5 kg [facility] 10-09-2024 15:42-0500 Body mass index (BMI) [Ratio] 26.59 kg/m2 Larry Kofi BUSINESS PROGRAMMER Work Phone: [facility] 10-09-2024 15:42-0500 Body temperature 99.19 [degF] Larry Maldonadohholz BUSINESS PROGRAMMER Work Phone: [facility] 10-09-2024 15:42-0500 Body weight 65.95 kg Larry Aichholz BUSINESS PROGRAMMER Work Phone: [facility] 10-09-2024 15:42-0500 Diastolic blood pressure 80 mm[Hg] Larry Aichholz BUSINESS PROGRAMMER Work Phone: [facility] 10-09-2024 15:42-0500 Heart rate 69 /min Larry Aichholz BUSINESS PROGRAMMER Work Phone: [facility] 10-09-2024 15:42-0500 Respiratory rate 18 /min Larry Aichholz BUSINESS PROGRAMMER Work Phone: [facility] 10-09-2024 15:42-0500 SaO2% (BldA) [Mass fraction] 99 % Larry Aichholz BUSINESS PROGRAMMER Work Phone: [facility] 10-09-2024 15:42-0500 Systolic blood pressure 110 mm[Hg] Larry Aichholz BUSINESS PROGRAMMER Work Phone: [facility] 09-25-2024 08:57-0500 Body mass index (BMI) [Ratio] 25.64 kg/m2 Larry Aichholz BUSINESS PROGRAMMER Work Phone: [facility] 09-25-2024 08:57-0500 Body temperature 98.8 [degF] Larry Aichholz BUSINESS PROGRAMMER Work Phone: [facility] 09-25-2024 08:57-0500 Body weight 63.59 kg Larry Aichholz BUSINESS PROGRAMMER Work Phone: [facility] 09-25-2024 08:57-0500 Diastolic blood pressure 78 mm[Hg] Larry Aichholz BUSINESS PROGRAMMER Work Phone: [facility] 09-25-2024 08:57-0500 Heart rate 73 /min Larry Aichholz BUSINESS PROGRAMMER Work Phone: [facility] 09-25-2024 08:57-0500 Respiratory rate 18 /min Larry Aichholz BUSINESS PROGRAMMER Work Phone: [facility] 09-25-2024 08:57-0500 SaO2% (BldA) [Mass fraction] 94 % Larry Kirby BUSINESS PROGRAMMER Work Phone: [facility] 09-25-2024 08:57-0500 Systolic blood pressure 108 mm[Hg] Larry Kirby BUSINESS PROGRAMMER Work Phone: [facility] 09-10-2024 15:14-0500 Body height 157.48 cm [facility] 09-10-2024 15:14-0500 Body mass index (BMI) [Ratio] 25.6 kg/m2 [facility] 09-10-2024 15:14-0500 Body weight 63.5 kg [facility] 09-10-2024 15:14-0500 Diastolic blood pressure 94 mm[Hg] [facility] 09-10-2024 15:14-0500 Heart rate 79 /min [facility] 09-10-2024 15:14-0500 Systolic blood pressure 123 mm[Hg] [facility] 09-04-2024 10:02-0500 Body height 157.48 cm [facility] 09-04-2024 10:02-0500 Body mass index (BMI) [Ratio] 26.3 kg/m2 [facility] 09-04-2024 10:02-0500 Body weight 65.31 kg [facility] 09-04-2024 10:02-0500 Diastolic blood pressure 100 mm[Hg] [facility] 09-04-2024 10:02-0500 Heart rate 75 /min [facility] 09-04-2024 10:02-0500 SaO2% (BldA) [Mass fraction] 98 % [facility] 09-04-2024 10:02-0500 Systolic blood pressure 145 mm[Hg] [facility] 08-06-2024 16:13-0500 Body mass index (BMI) [Ratio] 26.3 kg/m2 Aurea GAVIRIA Work Phone: [facility] 08-06-2024 16:13-0500 Body weight 65.23 kg Aurea GAVIRIA Work Phone: [facility] 08-06-2024 16:13-0500 Diastolic blood pressure 80 mm[Hg] Aurea GAVIRIA Work Phone: [facility] 08-06-2024 16:13-0500 Systolic blood pressure 120 mm[Hg] Aurea GAVIRIA Work Phone: [facility] 07-31-2024 15:03-0500 Body height 157.48 cm [facility] 07-31-2024 15:03-0500 Body mass index (BMI) [Ratio] 27.1 kg/m2 [facility] 07-31-2024 15:03-0500 Body weight 67.13 kg [facility] 07-31-2024 15:03-0500 Diastolic blood pressure 93 mm[Hg] [facility] 07-31-2024 15:03-0500 Heart rate 92 /min [facility] 07-31-2024 15:03-0500 SaO2% (BldA) [Mass fraction] 97 % [facility] 07-31-2024 15:03-0500 Systolic blood pressure 131 mm[Hg] [facility] 07-13-2024 14:04-0500 Body height 157.48 cm [facility] 07-13-2024 14:04-0500 Body mass index (BMI) [Ratio] 27.1 kg/m2 [facility] 07-13-2024 14:04-0500 Body weight 67.13 kg [facility] 06-19-2024 15:37-0400 Body height 157.5 cm Larry Kirby BUSINESS PROGRAMMER Work Phone: [facility] 06-19-2024 15:37-0400 Body mass index (BMI) [Ratio] 26.26 kg/m2 Larry Kirby BUSINESS PROGRAMMER Work Phone: [facility] 06-19-2024 15:37-0400 Body temperature 98.6 [degF] Larry Kirby BUSINESS PROGRAMMER Work Phone: [facility] 06-19-2024 15:37-0400 Body weight 65.14 kg Larry Aichholz BUSINESS PROGRAMMER Work Phone: [facility] 06-19-2024 15:37-0400 Diastolic blood pressure 82 mm[Hg] Larry Aichholz BUSINESS PROGRAMMER Work Phone: [facility] 06-19-2024 15:37-0400 Heart rate 63 /min Larry Aichholz BUSINESS PROGRAMMER Work Phone: [facility] 06-19-2024 15:37-0400 Respiratory rate 18 /min Larry Aichholz BUSINESS PROGRAMMER Work Phone: [facility] 06-19-2024 15:37-0400 SaO2% (BldA) [Mass fraction] 97 % Larry Aichholz BUSINESS PROGRAMMER Work Phone: [facility] 06-19-2024 15:37-0400 Systolic blood pressure 110 mm[Hg] Larry Aichholz BUSINESS PROGRAMMER Work Phone: [facility] 06-11-2024 15:44-0400 Body height 157.48 cm Larry Aichholz Work Phone: [facility] 06-11-2024 15:44-0400 Body mass index (BMI) [Ratio] 26.2 kg/m2 Larry Aichholz Work Phone: [facility] 06-11-2024 15:44-0400 Body weight 64.86 kg Larry Aichholz Work Phone: [facility] 05-16-2024 15:43-0400 Body height 157.48 cm Larry Aichholz Work Phone: [facility] 05-16-2024 15:43-0400 Body mass index (BMI) [Ratio] 23.8 kg/m2 Larry Aichholz Work Phone: [facility] 05-16-2024 15:43-0400 Body weight 59 kg Larry Aichholz Work Phone: [facility] 05-02-2024 15:46-0400 Body height 157.5 cm Larry Nickholz BUSINESS PROGRAMMER Work Phone: [facility] 05-02-2024 15:46-0400 Body mass index (BMI) [Ratio] 26.37 kg/m2 Larry Aichholz BUSINESS PROGRAMMER Work Phone: [facility] 05-02-2024 15:46-0400 Body temperature 98.49 [degF] Larry Aichholz BUSINESS PROGRAMMER Work Phone: [facility] 05-02-2024 15:46-0400 Body weight 65.41 kg Larry Aichholz BUSINESS PROGRAMMER Work Phone: [facility] 05-02-2024 15:46-0400 Diastolic blood pressure 88 mm[Hg] Larry Aichholz BUSINESS PROGRAMMER Work Phone: [facility] 05-02-2024 15:46-0400 Heart rate 79 /min Larry Elvishholz BUSINESS PROGRAMMER Work Phone: [facility] 05-02-2024 15:46-0400 Respiratory rate 19 /min Larry Aichholz BUSINESS PROGRAMMER Work Phone: [facility] 05-02-2024 15:46-0400 SaO2% (BldA) [Mass fraction] 94 % Larry Aichholz BUSINESS PROGRAMMER Work Phone: [facility] 05-02-2024 15:46-0400 Systolic blood pressure 110 mm[Hg] Larry Elvishholz BUSINESS PROGRAMMER Work Phone: [facility] 04-17-2024 11:44-0400 Body mass index (BMI) [Ratio] 27.76 kg/m2 Larry Aichholz BUSINESS PROGRAMMER Work Phone: [facility] 04-17-2024 11:44-0400 Body temperature 98.01 [degF] Larry Aichholz BUSINESS PROGRAMMER Work Phone: [facility] 04-17-2024 11:44-0400 Body weight 68.86 kg Larry Aichholz BUSINESS PROGRAMMER Work Phone: [facility] 04-17-2024 11:44-0400 Diastolic blood pressure 80 mm[Hg] Larry Mcdonnellz BUSINESS PROGRAMMER Work Phone: [facility] 04-17-2024 11:44-0400 Heart rate 80 /min Larrysue Mcdonnellz BUSINESS PROGRAMMER Work Phone: [facility] 04-17-2024 11:44-0400 Respiratory rate 18 /min Larry Kirby BUSINESS PROGRAMMER Work Phone: [facility] 04-17-2024 11:44-0400 SaO2% (BldA) [Mass fraction] 94 % Larry Kirby BUSINESS PROGRAMMER Work Phone: [facility] 04-17-2024 11:44-0400 Systolic blood pressure 110 mm[Hg] Larry Mcdonnellz BUSINESS PROGRAMMER Work Phone: [facility] 04-16-2024 18:26-0400 Body height 157.48 cm [facility] 04-16-2024 18:26-0400 Body mass index (BMI) [Ratio] 23.9 kg/m2 [facility] 04-16-2024 18:26-0400 Body temperature 98.4 [degF] [facility] 04-16-2024 18:26-0400 Body weight 59.42 kg [facility] 04-16-2024 18:26-0400 Diastolic blood pressure 86 mm[Hg] [facility] 04-16-2024 18:26-0400 Heart rate 89 /min [facility] 04-16-2024 18:26-0400 Respiratory rate 18 /min [facility] 04-16-2024 18:26-0400 SaO2% (BldA) [Mass fraction] 96 % [facility] 04-16-2024 18:26-0400 Systolic blood pressure 127 mm[Hg] [facility] 03-13-2024 15:43-0400 Body height 157.48 cm Larry Kirby Work Phone: [facility] 03-13-2024 15:43-0400 Body mass index (BMI) [Ratio] 27.3 kg/m2 Larry Aichholz Work Phone: [facility] 03-13-2024 15:43-0400 Body weight 68 kg Larry Aichholz Work Phone: [facility] 12-12-2023 15:54-0400 Body height 157.48 cm Larry Aichholz Work Phone: [facility] 12-12-2023 15:54-0400 Body mass index (BMI) [Ratio] 27.4 kg/m2 Larry Aichholz Work Phone: [facility] 12-12-2023 15:54-0400 Body weight 68.03 kg Larry Aichholz Work Phone: [facility] 12-12-2023 15:54-0400 Diastolic blood pressure 97 mm[Hg] Larry Aichholz Work Phone: [facility] 12-12-2023 15:54-0400 Heart rate 103 /min Larry Aichholz Work Phone: [facility] 12-12-2023 15:54-0400 Systolic blood pressure 137 mm[Hg] Larry Aichholz Work Phone: [facility] 11-02-2023 15:32-0400 Body height 157.48 cm Larry Aichholz Work Phone: [facility] 11-02-2023 15:32-0400 Body mass index (BMI) [Ratio] 27.4 kg/m2 Larry Aichholz Work Phone: [facility] 11-02-2023 15:32-0400 Body weight 68.03 kg Larry Aichholz Work Phone: [facility] 03-13-2024 15:32-0400 Heart rate 67 /min Larry Aichholz Work Phone: [facility] 10-14-2023 12:37-0500 Body height 157.48 cm Larry Aichholz Work Phone: [facility] 10-14-2023 12:37-0500 Body mass index (BMI) [Ratio] 28 kg/m2 Larry Aichholz Work Phone: [facility] 10-14-2023 12:37-0500 Body temperature 99.4 [degF] Larry Aichholz Work Phone: [facility] 10-14-2023 12:37-0500 Body weight 69.62 kg Larry Aichholz Work Phone: [facility] 10-14-2023 12:37-0500 Diastolic blood pressure 94 mm[Hg] Larry Aichholz Work Phone: [facility] 10-14-2023 12:37-0500 Heart rate 81 /min Larry Aichholz Work Phone: [facility] 10-14-2023 12:37-0500 Respiratory rate 16 /min Larry Aichholz Work Phone: [facility] 10-14-2023 12:37-0500 SaO2% (BldA) [Mass fraction] 97 % Larry Aichholz Work Phone: [facility] 10-14-2023 12:37-0500 Systolic blood pressure 131 mm[Hg] Larry Aichholz Work Phone: [facility] 09-20-2023 15:30-0500 Body height 157.48 cm Wiley Mcmanus Other [facility] 09-20-2023 15:30-0500 Body mass index (BMI) [Ratio] 30.18 kg/m2 Wiley Mcmanus Other [employer] Other 09-20-2023 15:30-0500 Body weight 74.84 kg Wiley Yonathan Other [facility] 08-08-2023 13:25-0500 Diastolic blood pressure 89 mm[Hg] Larry Aichholz Work Phone: [facility] 08-08-2023 13:25-0500 Heart rate 75 /min Larry Aichholz Work Phone: [facility] 08-08-2023 13:25-0500 Respiratory rate 16 /min Larry Aichholz Work Phone: [facility] 08-08-2023 13:25-0500 SaO2% (BldA) [Mass fraction] 99 % Larry Aichholz Work Phone: [facility] 08-08-2023 13:25-0500 Systolic blood pressure 117 mm[Hg] Larry Aichholz Work Phone: [facility] 08-08-2023 11:41-0500 Body height 157.48 cm Larry Aichholz Work Phone: [facility] 08-08-2023 11:41-0500 Body weight 77.11 kg Larry Aichholz Work Phone: [facility] 06-30-2023 09:20-0500 Body height 157.48 cm Majo Lyman Other [employer] Other 06-30-2023 09:20-0500 Body mass index (BMI) [Ratio] 30.18 kg/m2 Majo Lyman Other [employer] Other 06-30-2023 09:20-0500 Body weight 74.84 kg Majo Lyman Other [employer] Other 06-30-2023 09:20-0500 Diastolic blood pressure 87 mm[Hg] Majo Andryfredi Other [employer] Other 06-30-2023 09:20-0500 Systolic blood pressure 115 mm[Hg] Majo Wildemeenanita Other [employer] Other 06-07-2023 12:30-0400 Body height 157.48 cm Louise Johnson Other [employer] Other 06-07-2023 12:30-0400 Body mass index (BMI) [Ratio] 31.05 kg/m2 Louise Johnson Other [employer] Other 06-07-2023 12:30-0400 Body temperature 98 [degF] Louise Johnson Other [employer] Other 06-07-2023 12:30-0400 Body weight 77.02 kg Louise Johnson Other [employer] Other 06-07-2023 12:30-0400 Diastolic blood pressure 78 mm[Hg] Louise Johnson Other [employer] Other 06-07-2023 12:30-0400 Respiratory rate 18 /min Louise Johnson Other [employer] Other 06-07-2023 12:30-0400 SaO2% (BldA) [Mass fraction] 98 % Loiuse Johnson Other [employer] Other 06-07-2023 12:30-0400 Systolic blood pressure 117 mm[Hg] Louise Johnson Other [employer] Other 07-17-2022 04:28-0500 Body temperature 98.29 [degF] Rikki Rodrigues DMD, MD [facility] 07-17-2022 04:28-0500 Diastolic blood pressure 80 mm[Hg] Rikki Rodrigues DMD, MD [facility] 07-17-2022 04:28-0500 Heart rate 54 /min Rikik Rodrigues DMD, MD [facility] 07-17-2022 04:28-0500 Respiratory rate 18 /min Rikki Rodrigues DMD, MD [facility] 07-17-2022 04:28-0500 SaO2% (BldA) [Mass fraction] 96 % Rikki Rodrigues DMD, MD [facility] 07-17-2022 04:28-0500 Systolic blood pressure 109 mm[Hg] Rikki Rodrigues DMD, MD [facility] 07-14-2022 15:17-0500 Body mass index (BMI) [Ratio] 36.29 kg/m2 Rikki Rodrigues DMD, MD [facility] 07-14-2022 15:17-0500 Body weight 90 kg Rikki Rodrigues DMD, MD [facility] 07-14-2022 14:55-0500 Body height 157.5 cm Rikki Rodrigues DMD, MD [facility] 07-14-2022 09:01-0500 SaO2% (BldA) [Mass fraction] 98.8 % Rikki Rodrigues DMD, MD [facility] 07-08-2022 13:59-0500 Body height 157.5 cm Larry MORRIS Work Phone: [employer] 07-08-2022 13:59-0500 Body mass index (BMI) [Ratio] 35.96 kg/m2 Larry MORRIS Work Phone: [employer] 07-08-2022 13:59-0500 Body temperature 97.9 [degF] Larry Holbrook APRN-ROOM SERVICE FOOD SERVICE ATTENDANT [facility] 07-08-2022 13:59-0500 Body weight 89.18 kg Larry Holbrook APRN-ROOM SERVICE FOOD SERVICE ATTENDANT [facility] 07-08-2022 13:59-0500 Diastolic blood pressure 80 mm[Hg] Larry Holbrook APRN-ROOM SERVICE FOOD SERVICE ATTENDANT Work Phone: [employer] 07-08-2022 13:59-0500 Heart rate 98 /min Larry Holbrook APRN-ROOM SERVICE FOOD SERVICE ATTENDANT [facility] 07-08-2022 13:59-0500 Respiratory rate 14 /min Larry Holbrook APRN-ROOM SERVICE FOOD SERVICE ATTENDANT [facility] 07-08-2022 13:59-0500 SaO2% (BldA) [Mass fraction] 98 % Larry Holbrook APRN-ROOM SERVICE FOOD SERVICE ATTENDANT Work Phone: [employer] 07-08-2022 13:59-0500 Systolic blood pressure 122 mm[Hg] Larry Holbrook APRN-ROOM SERVICE [employer]OD SERVICE ATTENDANT [facility] 06-18-2022 15:09-0400 Diastolic blood pressure 89 mm[Hg] Rikki Rodrigues DMD, MD Work Phone: [employer] 06-18-2022 15:09-0400 Heart rate 117 /min Rikki Rodrigues DMD, MD Work Phone: [employer] 06-18-2022 15:09-0400 Systolic blood pressure 120 mm[Hg] Rikki Rodrigues DMD, MD Work Phone: [employer] 06-18-2022 15:07-0400 Body height 157.5 cm Rikki Rodrigues DMD, MD Work Phone: [employer] 06-18-2022 15:07-0400 Body mass index (BMI) [Ratio] 34.75 kg/m2 Rikki Rodrigues DMD, MD [facility] 06-18-2022 15:07-0400 Body weight 86.18 kg Rikki Rodrigues DMD, MD [facility] 05-28-2022 09:00-0400 Body height 157.5 cm P[facility] 05-28-2022 09:00-0400 Body mass index (BMI) [Ratio] 34.75 kg/m2 P[facility] 05-28-2022 09:00-0400 Body weight 86.18 kg Pse Rn [facility] 02-26-2022 12:49-0400 Body temperature 97.81 [degF] Yi Moreno MD [facility] 02-26-2022 12:49-0400 Diastolic blood pressure 57 mm[Hg] Yi Moreno MD [facility] 02-26-2022 12:49-0400 Heart rate 78 /min Yi Moreno MD [facility] 02-26-2022 12:49-0400 Respiratory rate 18 /min Yi Moreno MD [facility] 02-26-2022 12:49-0400 SaO2% (BldA) [Mass fraction] 92 % Yi Moreno MD [facility] 02-26-2022 12:49-0400 Systolic blood pressure 101 mm[Hg] Yi Moreno MD [facility] 02-25-2022 18:16-0400 Body mass index (BMI) [Ratio] 32.92 kg/m2 Yi Moreno MD [facility] 02-25-2022 18:16-0400 Body weight 81.65 kg Yi Moreno MD [facility] 02-25-2022 08:08-0400 Body height 157.5 cm Yi Moreno MD Work Phone: [employer] 02-17-2022 22:11-0400 Heart rate 72 /min Pierce Ramos APRN-RO[employer] SERVICE FOOD SERVICE ATTENDANT Work Phone: [employer] 02-16-2022 14:19-0400 Body height 157.5 cm Pierce Ramos APRN-RO[employer] SERVICE [employer]OD SERVICE ATTENDANT [facility] 02-16-2022 14:19-0400 Body mass index (BMI) [Ratio] 32.92 kg/m2 Pierce Ramos LINOLE[employer] L[employer]ER-RO[employer] SERVICE [employer]OD SERVICE ATTENDANT Work Phone: [employer] 02-16-2022 14:19-0400 Body temperature 97.3 [degF] Pierce Ramos [employer] L[employer]ER-RO[employer] SERVICE FOOD SERVICE ATTENDANT Work Phone: [employer] 02-16-2022 14:19-0400 Body weight 81.65 kg Pierce Ramos [employer] LAYER-RO[employer] SERVICE FOOD SERVICE ATTENDANT Work Phone: [employer] 02-16-2022 14:19-0400 Diastolic blood pressure 81 mm[Hg] Pierce Ramos [employer] L[employer]ER-ROOM SERVICE FOOD SERVICE ATTENDANT Work Phone: [employer] 02-16-2022 14:19-0400 Heart rate 74 /min Edflor Ramos APRN-ROOM SERVICE FOOD SERVICE ATTENDANT [facility] 02-16-2022 14:19-0400 Respiratory rate 16 /min Edflor Ramos [employer] L[employer]-RO[employer] SERVICE FOOD SERVICE ATTENDANT Work Phone: [employer] 02-16-2022 14:19-0400 SaO2% (BldA) [Mass fraction] 96 % Edflor Ramos APRN-ROOM SERVICE FOOD SERVICE ATTENDANT Work Phone: [employer] 02-16-2022 14:19-0400 Systolic blood pressure 125 mm[Hg] Pierce Ramos [employer] L[employer]-RO[employer] SERVICE [employer]OD SERVICE ATTENDANT [facility] 01-11-2022 14:20-0400 Diastolic blood pressure 87 mm[Hg] Yi Moreno MD [facility] 01-11-2022 14:20-0400 Heart rate 86 /min Yi Moreno MD [facility] 01-11-2022 14:20-0400 Systolic blood pressure 116 mm[Hg] Yi Moreno MD [facility] 01-11-2022 14:12-0400 Body height 157.5 cm Yi Moreno MD [facility] 01-11-2022 14:12-0400 Body mass index (BMI) [Ratio] 34.39 kg/m2 Yi Moreno MD [facility] 01-11-2022 14:12-0400 Body temperature 98.8 [degF] Yi Moreno MD [facility] 01-11-2022 14:12-0400 Body weight 85.28 kg Yi Moreno MD [facility] 01-11-2022 14:12-0400 Respiratory rate 18 /min Yi Moreno MD [facility] 01-11-2022 14:12-0400 SaO2% (BldA) [Mass fraction] 100 % [facility]i [facility]no MD [facility] 01-05-2022 16:25-0400 Diastolic blood pressure 82 mm[Hg] Bertha Hirsch MD Work Phone: [employer] 01-05-2022 16:25-0400 Heart rate 87 /min [facility]sch MD [facility] 01-05-2022 16:25-0400 Respiratory rate 16 /min Bertha Hirsch MD Work Phone: [employer] 01-05-2022 16:25-0400 SaO2% (BldA) [Mass fraction] 94 % Bertha Hirsch MD Work Phone: [facility] [employer] 01-05-2022 16:25-0400 Systolic blood pressure 122 mm[Hg] Bertha Hirsch MD Work Phone: [facility] [employer] 01-05-2022 16:00-0400 Body temperature 96.91 [degF] Bertha Hirsch MD Work Phone: [facility] [employer] 01-05-2022 13:35-0400 Body height 157.5 cm Bertha Hirsch MD Work Phone: [facility] [employer] 01-05-2022 13:21-0400 Body mass index (BMI) [Ratio] 34.06 kg/m2 Bertha Hirsch MD Work Phone: [facility] [employer] 01-05-2022 13:21-0400 Body weight 84.46 kg Bertha Hirsch MD Work Phone: [facility] [employer] 12-02-2021 15:38-0400 Body height 157.48 cm Larry Kirby Work Phone: [facility] [employer] 250 DO Work Phone: 12-02-2021 15:38-0400 Body mass index (BMI) [Ratio] 33.47 kg/m2 Larry Kirby Work Phone: [facility] [employer] 250 DO Work Phone: 12-02-2021 15:38-0400 Body surface area Derived from formula 1.84 m2 Larry Kiryb Work Phone: [facility] 250 DO Work Phone: 12-02-2021 15:38-0400 Body weight 83.01 kg Larry Kirby Work Phone: [facility] 250 DO Work Phone: 12-02-2021 15:38-0400 Diastolic blood pressure 70 mm[Hg] Larry Kirby Work Phone: [facility] [employer] 250 DO Work Phone: 12-02-2021 15:38-0400 Heart rate 72 /min Larry Kirby Work Phone: [facility] [employer] 250 DO Work Phone: 12-02-2021 15:38-0400 Systolic blood pressure 92 mm[Hg] Larry Kirby Work Phone: [facility] [employer] 250 DO Work Phone: 11-09-2021 15:15-0400 Body height 157.48 cm Wiley Mcmanus Other [employer] Other 11-09-2021 15:15-0400 Body mass index (BMI) [Ratio] 32.55 kg/m2 Wiley Mcmauns Other [employer] Other 11-09-2021 15:15-0400 Body temperature 98.5 [degF] Wiley Mcmanus Other [employer] Other 11-09-2021 15:15-0400 Body weight 80.74 kg Wiley Mcmanus Other [employer] Other 11-09-2021 15:15-0400 Diastolic blood pressure 81 mm[Hg] Wiley Mcmanus Other [employer] Other 11-09-2021 15:15-0400 SaO2% (BldA) [Mass fraction] 94 % Wiley Mcmanus Other [employer] Other 11-09-2021 15:15-0400 Systolic blood pressure 122 mm[Hg] Wiley Mcmanus Other [employer] Other 10-14-2021 15:34-0500 Diastolic blood pressure 98 mm[Hg] Larry Jang Aichholz Work Phone: [facility] 250 DO Work Phone: 10-14-2021 15:34-0500 Systolic blood pressure 152 mm[Hg] Larry Jang Aichholz Work Phone: [facility] 250 DO Work Phone: 10-14-2021 15:23-0500 Body height 157.48 cm Larry Jang Aichholz Work Phone: [facility] 250 DO Work Phone: 10-14-2021 15:23-0500 Body mass index (BMI) [Ratio] 33.47 kg/m2 Larry Jang Aichholz Work Phone: [facility] 250 DO Work Phone: 10-14-2021 15:23-0500 Body surface area Derived from formula 1.84 m2 Larry Jang Aichholz Work Phone: [facility] 250 DO Work Phone: 10-14-2021 15:23-0500 Body weight 83.01 kg Larry Jang Aichholz Work Phone: [facility] 250 DO Work Phone: 10-14-2021 15:23-0500 Diastolic blood pressure 98 mm[Hg] Larry Jang Aichholz Work Phone: [facility] 250 DO Work Phone: 10-14-2021 15:23-0500 Heart rate 78 /min Larry Jang Aichholz Work Phone: [facility] 250 DO Work Phone: 10-14-2021 15:23-0500 Systolic blood pressure 160 mm[Hg] Larry Jang Elvishholz Work Phone: [facility] 250 DO Work Phone: 10-14-2021 15:230 16 1 Larry Jang Elvishholz Work Phone: [facility] 250 DO Work Phone: Comment on above: PHQ-9 TS Encounters Encounter Date Encounter Type Care Provider Facility Start: 04-05-2025 End: 04-05-2025 ambulatory AYDEN SILVA Not Available Start: 03-26-2025 End: 03-26-2025 Refill Larry Kofi BUSINESS PROGRAMMER Work Phone: [facility] Comment on above: Mixed hyperlipidemia Start: 03-12-2025 End: 03-12-2025 ambulatory [facility] Start: 02-27-2025 End: 02-27-2025 Refill Larry Kofi BUSINESS PROGRAMMER Work Phone: [facility] Comment on above: Hypokalemia (Primary Dx) Start: 02-20-2025 End: 02-21-2025 Refill Larry Kofi BUSINESS PROGRAMMER Work Phone: [facility] Comment on above: Chronic right should er pain (Primary Dx) Start: 02-19-2025 End: 02-21-2025 Telephone encounter Mark GAVIRIA Work Phone: [facility] Comment on above: Unable to do the MRI due to [employer] Start: 02-14-2025 End: 02-15-2025 Telephone encounter Mark GAVIRIA Work Phone: [facility] Comment on above: wants to ask the pro viders nurse about her inject Start: 02-13-2025 End: 02-13-2025 Bamboo flowsheet Larry Kofi BUSINESS PROGRAMMER Work Phone: [facility] Start: 02-13-2025 End: 02-13-2025 Bamboo flowsheet Larry Aichludmila BUSINESS PROGRAMMER Work Phone: [facility] Start: 02-13-2025 End: 02-13-2025 Office outpatient visit 15 minutes Larry Camacholudmila BUSINESS PROGRAMMER Work Phone: [facility] Comment on above: Chronic right should er pain (Primary Dx); Primary hypertension Start: 02-13-2025 End: 02-13-2025 ambulatory LARRY CAMACHOLUDMILA Not Available Start: 01-23-2025 End: 01-23-2025 Telephone encounter Mark Olmedo PA Work Phone: [facility] Comment on above: MRI Start: 01-22-2025 End: 01-22-2025 Office outpatient new 30 minutes Mark Olmedo PA Work Phone: [facility] Comment on above: Acute pain of right shoulder (Primary Dx); Chronic right shoulder pain; Impingement of right shoulder; Internal derangement of right shoulder Start: 01-22-2025 End: 01-22-2025 ambulatory MARK OLMEDO Not Available Start: 01-21-2025 End: 01-21-2025 ambulatory Harsha Carrasco PLUMBER'S ASSISTANT [facility] Comment on above: Acute pain of right shoulder (Primary Dx) Start: 01-21-2025 End: 01-21-2025 Bamboo flowsheet Harsha Carrasco PLUMBER'S ASSISTANT [facility] Start: 01-21-2025 End: 01-21-2025 Bamboo flowsheet Harsha Carrasco PLUMBER'S ASSISTANT [facility] Start: 01-17-2025 End: 01-17-2025 Bamboo flowsheet Adriana Barrios PT [facility] Start: 01-17-2025 End: 01-17-2025 Bamboo flowsheet Adriana Barrios PT [facility] Start: 01-17-2025 End: 01-17-2025 ambulatory Adriana Barrios PT [facility] Comment on above: Acute pain of right shoulder (Primary Dx) Start: 01-15-2025 End: 01-15-2025 ambulatory Adriana Barrios PT [facility] Comment on above: Acute pain of right shoulder (Primary Dx) Start: 01-15-2025 End: 01-15-2025 Bamboo flowsheet Adriana Barrios PT [facility] Start: 01-15-2025 End: 01-15-2025 Bamboo flowsheet Adriana Barrios PT [facility] Start: 01-08-2025 End: 01-08-2025 ambulatory Adriana Barrios PT [facility] Comment on above: Acute pain of right shoulder (Primary Dx) Start: 01-07-2025 End: 01-07-2025 Office outpatient visit 15 minutes Larry Kirby BUSINESS PROGRAMMER Work Phone: [facility] Comment on above: Chronic right should er pain (Primary Dx) Start: 01-07-2025 End: 01-07-2025 ambulatory LARRY KIRBY Not Available Start: 01-07-2025 End: 01-07-2025 Bamboo flowsheet Larry Kirby BUSINESS PROGRAMMER Work Phone: [facility] Start: 01-07-2025 End: 01-07-2025 Bamboo flowsheet Larry Kirby BUSINESS PROGRAMMER Work Phone: [facility] Start: 01-04-2025 End: 01-04-2025 Bamboo flowsheet Harsha Carrasco PLUMBER'S ASSISTANT [facility] Start: 01-04-2025 End: 01-04-2025 Bamboo flowsheet Harsha Carrasco PLUMBER'S ASSISTANT [facility] Start: 01-04-2025 End: 01-04-2025 ambulatory Harsha Carrasco PLUMBER'S ASSISTANT [facility] Comment on above: Acute pain of right shoulder (Primary Dx) Start: 01-03-2025 End: 01-03-2025 ambulatory MAJO Andino ALAYNA [facility] Start: 01-02-2025 End: 01-02-2025 ambulatory Adriana Barrios PT [facility] Comment on above: Acute pain of right shoulder (Primary Dx) Start: 12-30-2024 End: 12-31-2024 Refill Larry Kirby BUSINESS PROGRAMMER Work Phone: [facility] Comment on above: Mixed hyperlipidemia (CMS/HCC) Start: 12-25-2024 End: 12-25-2024 Office outpatient visit 10 minutes Oswald Len DO Work Phone: [facility] Comment on above: Labial cyst; Follow-up exam Start: 12-25-2024 End: 12-25-2024 ambulatory OSWALD LEN Not Available Start: 12-19-2024 End: 12-19-2024 ambulatory Camryn Llanesbley PLUMBER'S ASSISTANT [facility] Comment on above: Acute pain of right shoulder (Primary Dx) Start: 12-19-2024 End: 12-19-2024 Bamboo flowsheet Camryn Kelbley PLUMBER'S ASSISTANT [facility] Start: 12-19-2024 End: 12-19-2024 Bamboo flowsheet Camryn Kelbley PLUMBER'S ASSISTANT [facility] Start: 12-14-2024 End: 12-14-2024 Bamboo flowsheet Camryn Mario Albertobley PLUMBER'S ASSISTANT [facility] Start: 12-14-2024 End: 12-14-2024 Bamboo flowsheet Camryn Mario Albertobley PLUMBER'S ASSISTANT [facility] Start: 12-14-2024 End: 12-14-2024 ambulatory Camryn Kelbley PLUMBER'S ASSISTANT [facility] Comment on above: Acute pain of right shoulder (Primary Dx) Start: 12-11-2024 End: 12-11-2024 Office outpatient visit 15 minutes Oswald Len DO Work Phone: [facility] Comment on above: Swelling of labia; Labial cyst Start: 12-11-2024 End: 12-11-2024 ambulatory OSWALD LEN Not Available Start: 12-10-2024 End: 12-10-2024 ambulatory Adriana Barrios PT [facility] Comment on above: Acute pain of right shoulder (Primary Dx) Start: 12-10-2024 End: 12-10-2024 Bamboo flowsheet Adriana Barrios PT [facility] Start: 12-10-2024 End: 12-10-2024 Bamboo flowsheet Adriana Barrios PT [facility] Start: 12-06-2024 End: 12-06-2024 ambulatory Camryn Kelbley PLUMBER'S ASSISTANT [facility] Comment on above: Acute pain of right shoulder (Primary Dx) Start: 12-06-2024 End: 12-06-2024 Bamboo flowsheet Camryn Zafar PLUMBER'S ASSISTANT [facility] Start: 12-06-2024 End: 12-06-2024 Bamboo flowsheet Camryn Zafar PLUMBER'S ASSISTANT [facility] Start: 12-03-2024 End: 12-04-2024 ambulatory Adriana Barrios PT [facility] Comment on above: Acute pain of right shoulder (Primary Dx) Start: 12-03-2024 End: 12-03-2024 Bamboo flowsheet Adriana Barrios PT [facility] Start: 12-03-2024 End: 12-03-2024 Bamboo flowsheet Adriana Barrios PT [facility] Start: 11-27-2024 End: 11-27-2024 Refill Larry Kirby BUSINESS PROGRAMMER Work Phone: [facility] Comment on above: Other specified hypo thyroidism Start: 11-26-2024 End: 11-26-2024 Bamboo flowsheet Adriana Barrios PT [facility] Start: 11-26-2024 End: 11-26-2024 Bamboo flowsheet Adriana Barrios PT [facility] Start: 11-26-2024 End: 11-26-2024 ambulatory Adriana Barrios PT [facility] Comment on above: Acute pain of right shoulder (Primary Dx) Start: 11-25-2024 End: 11-25-2024 Refill Larry Kofi BUSINESS PROGRAMMER Work Phone: [facility] Comment on above: Primary hypertension (CMS/HCC) Start: 11-22-2024 End: 11-22-2024 Patient encounter procedure Aurea GAVIRIA Work Phone: [facility] Start: 11-22-2024 End: 11-22-2024 Periodic preventive med est patient 40-64yrs Aurea GAVIRIA Work Phone: [facility] Comment on above: Well woman exam with routine gynecological exam; Encounter for screening mammogram for malignant neoplasm of breast Start: 11-22-2024 End: 11-22-2024 ambulatory AUREA MARC Not Available Start: 11-22-2024 End: 11-22-2024 Bamboo flowsheet Aurea GAVIRIA Work Phone: [facility] Start: 11-22-2024 End: 11-29-2024 Bamboo flowsheet Aurea Marc PA Work Phone: [facility] Start: 11-22-2024 End: 11-29-2024 Clinisync Result Encounter Generic External Data Provider [facility] Unsolicited Start: 11-20-2024 End: 11-20-2024 Office outpatient visit 15 minutes Larry Kofi BUSINESS PROGRAMMER Work Phone: [facility] Comment on above: Acute pain of right shoulder (Primary Dx) Start: 11-20-2024 End: 11-20-2024 ambulatory LARRY AICHHOLZ Not Available Start: 11-20-2024 End: 11-20-2024 Bamboo flowsheet Larry Aichholz BUSINESS PROGRAMMER Work Phone: [facility] Start: 11-20-2024 End: 11-20-2024 Bamboo flowsheet Larry Aichholz BUSINESS PROGRAMMER Work Phone: [facility] Start: 11-14-2024 End: 11-14-2024 Refill Larry Aichholz BUSINESS PROGRAMMER Work Phone: [facility] Comment on above: Acute pain of right shoulder (Primary Dx) Acute pain of right shoulder Start: 11-07-2024 End: 11-07-2024 ambulatory LARRY AICHHOLZ Not Available Start: 11-06-2024 End: 11-06-2024 ambulatory MAJO Andino ALAYNA [facility] Start: 10-23-2024 End: 10-23-2024 ambulatory [facility] Work Phone: Start: 10-23-2024 End: 10-23-2024 Patient encounter procedure [facility] Work Phone: Start: 10-09-2024 End: 10-09-2024 Office outpatient visit 15 minutes Larry Kofi BUSINESS PROGRAMMER Work Phone: [facility] FM Comment on above: Generalized abdomina l pain (Primary Dx); Primary hypertension (CMS/HCC); Mixed hyperlipidemia (CMS/HCC); Irritable bowel syndrome with diarrhea; Nausea; Urinary tract infection without hematuria, site unspecified; Generalized anxiety disorder with panic attacks (CMS/HCC); Depression with anxiety Start: 10-09-2024 End: 10-09-2024 ambulatory LARRY AICHHOLZ Not Available Start: 10-09-2024 End: 10-09-2024 Bamboo flowsheet Larry Aichholz BUSINESS PROGRAMMER Work Phone: [facility] CW FM Start: 10-09-2024 End: 10-09-2024 Bamboo flowsheet Larry Aichholz BUSINESS PROGRAMMER Work Phone: [facility] CW FM Start: 10-03-2024 End: 10-03-2024 Refill Larry Aichholz BUSINESS PROGRAMMER Work Phone: [facility] FM Comment on above: Urinary tract infect ion without hematuria, site unspecified (Primary Dx) Start: 10-02-2024 End: 10-02-2024 Refill Larry Aichholz BUSINESS PROGRAMMER Work Phone: [facility] Comment on above: Nausea Start: 09-28-2024 End: 09-28-2024 Refill Larry Aichholz BUSINESS PROGRAMMER Work Phone: [facility] FM Comment on above: Nausea (Primary Dx) Start: 09-27-2024 End: 09-28-2024 Clinisync Result Encounter Larry Aicnicanorholz BUSINESS PROGRAMMER Work Phone: [facility] External Department Unsolicited Start: 09-27-2024 End: 09-28-2024 Clinisync Result Encounter Larry Aichholz BUSINESS PROGRAMMER Work Phone: [facility] External Department Unsolicited Start: 09-25-2024 End: 09-25-2024 Bamboo flowsheet Larry Aichholz BUSINESS PROGRAMMER Work Phone: [facility] FM Start: 09-25-2024 End: 09-25-2024 Bamboo flowsheet Larry Aichholz BUSINESS PROGRAMMER Work Phone: [facility] Start: 09-25-2024 End: 09-25-2024 Clinisync Result Encounter Larry Kirby BUSINESS PROGRAMMER Work Phone: [facility] External Department Unsolicited Start: 09-25-2024 End: 09-25-2024 ambulatory LARRY KIRBY Not Available Start: 09-25-2024 End: 09-25-2024 Office outpatient visit 25 minutes Larry Kirby BUSINESS PROGRAMMER Work Phone: [facility] Comment on above: Generalized abdomina l pain (Primary Dx); Bipolar II disorder (CMS/HCC); Primary hypertension (CMS/HCC); Overweight (BMI 25.0-29.9); Generalized anxiety disorder with panic attacks (CMS/HCC); Other specified hypothyroidism (CMS/HCC); Viral upper respiratory tract infection; Subacute cough; Irritable bowel syndrome with diarrhea; Weakness generalized Start: 09-24-2024 Non-patient / Non-visit [facility] Work Phone: Start: 09-18-2024 End: 09-21-2024 Clinisync Result Encounter Generic External Data Provider [facility] External Department Unsolicited Start: 09-18-2024 End: 09-21-2024 Clinisync Result Encounter Generic External Data Provider [facility] External Department Unsolicited Start: 09-13-2024 End: 09-13-2024 ambulatory ELIN BALLARD [facility] Start: 09-13-2024 End: 09-13-2024 Subsequent hospital visit by physician Larry Kirby [employer]OLEUM [employer]ER - BUSINESS PROGRAMMER Work Phone: [facility] Laboratory Comment on above: Dysuria Start: 09-13-2024 End: 09-13-2024 Clinisync Result Encounter Generic External Data Provider [facility] External Department Unsolicited Start: 09-13-2024 End: 09-13-2024 Clinisync Result Encounter Generic External Data Provider [facility] External Department Unsolicited Start: 09-12-2024 End: 09-12-2024 Refill Larry Kirby BUSINESS PROGRAMMER Work Phone: [facility] Comment on above: Hypokalemia Start: 09-10-2024 End: 09-10-2024 ambulatory [facility] Work Phone: Start: 09-10-2024 End: 09-10-2024 Patient encounter procedure [facility] Work Phone: Start: 09-04-2024 End: 09-04-2024 Telephone encounter Rhina Amor MD Work Phone: [facility] Comment on above: Med Refill Start: 09-04-2024 End: 09-04-2024 ambulatory [facility] Work Phone: Start: 09-04-2024 End: 09-04-2024 Patient encounter procedure [facility] Work Phone: Start: 08-06-2024 End: 08-06-2024 Office outpatient visit 15 minutes Aurea GAVIRIA Work Phone: [facility] Comment on above: Complex ovarian cyst ; Night sweats Start: 08-06-2024 End: 08-06-2024 ambulatory AUREA MARC Not Available Start: 07-31-2024 End: 07-31-2024 Patient encounter procedure [facility] Work Phone: Start: 07-17-2024 End: 07-17-2024 ambulatory [facility] Start: 07-14-2024 End: 07-14-2024 Letter encounter Yi Moreno MD Work Phone: [facility] Start: 07-13-2024 End: 07-13-2024 Patient encounter procedure [facility] Work Phone: Start: 06-19-2024 End: 06-19-2024 Office outpatient visit 15 minutes Larry Kirby NP Work Phone: [facility] Comment on above: Primary hypertension (CMS/HCC) (Primary Dx); Hypokalemia; DIONNE (obstructive sleep apnea); Other microscopic colitis ([facility]); Irritable bowel syndrome with diarrhea; Overweight (BMI 25.0-29.9); Generalized anxiety disorder with panic attacks (CMS/[facility]); Bipolar II disorder (CMS/HCC); Mixed hyperlipidemia ([facility]) Start: 06-19-2024 End: 06-19-2024 ambulatory LARRY NICKHOLZ Not Available Start: 06-19-2024 End: 06-19-2024 Bamboo flowsheet Larry Aichholz BUSINESS PROGRAMMER Work Phone: [facility] Start: 06-19-2024 End: 06-19-2024 Bamboo flowsheet Larry Aichholz BUSINESS PROGRAMMER Work Phone: [facility] Start: 06-11-2024 End: 06-11-2024 ambulatory Larry J Elvishholz Work Phone: [facility] Work Phone: Start: 06-11-2024 End: 06-11-2024 Patient encounter procedure Larry Aichholz Work Phone: [facility] Gastroenterology Work Phone: Start: 05-16-2024 End: 05-16-2024 ambulatory Larry J Aichholz Work Phone: [facility] Work Phone: Start: 05-16-2024 End: 05-16-2024 Patient encounter procedure Larry Aichholz Work Phone: [facility] Gastroenter[facility] Work Phone: Start: 05-08-2024 End: 05-08-2024 Patient encounter procedure Larry Aichholz Work Phone: [facility] Work Phone: Start: 05-08-2024 End: 05-08-2024 ambulatory Larry J Aichholz Work Phone: [facility] Work Phone: Start: 05-07-2024 End: 05-07-2024 Clinisync Result Encounter Larry Camacholudmila BUSINESS PROGRAMMER Work Phone: [facility] External Department Unsolicited Start: 05-07-2024 End: 05-07-2024 Clinisync Result Encounter Larry Camacholudmila BUSINESS PROGRAMMER Work Phone: [facility] External Department Unsolicited Start: 05-02-2024 End: 05-02-2024 Office outpatient visit 15 minutes Larry Kofi BUSINESS PROGRAMMER Work Phone: [facility] Comment on above: Acute URI (Primary D x); Overweight (BMI 25.0-29.9) Start: 05-02-2024 End: 05-02-2024 ambulatory LARRY ELVISHHOLZ Not Available Start: 05-02-2024 End: 05-02-2024 Bamboo flowsheet Larry Kofi BUSINESS PROGRAMMER Work Phone: [facility] Start: 05-02-2024 End: 05-02-2024 Bamboo flowsheet Larry Elvisnicanorfreddyz BUSINESS PROGRAMMER Work Phone: [facility] Start: 04-26-2024 End: 04-26-2024 Clinisync Result Encounter Generic External Data Provider [facility] External Department Unsolicited Start: 04-26-2024 End: 04-26-2024 Clinisync Result Encounter Generic External Data Provider [facility] External Department Unsolicited Start: 04-17-2024 End: 04-17-2024 Office outpatient visit 15 minutes Larry Kofi BUSINESS PROGRAMMER Work Phone: [facility] Comment on above: Herpes zoster withou t complication (Primary Dx); Overweight (BMI 25.0-29.9) Start: 04-17-2024 End: 04-17-2024 ambulatory LARRY AICHHOLZ Not Available Start: 04-16-2024 End: 04-16-2024 ambulatory [facility] Work Phone: Start: 04-16-2024 End: 04-16-2024 Patient encounter procedure [facility] [place] Work Phone: Start: 04-12-2024 End: 04-12-2024 ambulatory MAJO MIX [facility] Start: 04-02-2024 End: 04-02-2024 ambulatory LARRY KIRBY [facility] Start: 03-26-2024 End: 05-02-2024 Preoperative state Larry Kirby BUSINESS PROGRAMMER Work Phone: [facility] Start: 03-13-2024 End: 03-13-2024 ambulatory Larry Sina Kirby Work Phone: [facility] Work Phone: Start: 03-13-2024 End: 03-13-2024 Patient encounter procedure Larry Kofi Work Phone: [facility] Gastroenterology Work Phone: Start: 12-29-2023 End: 12-29-2023 ambulatory Larry Andino Kofi Work Phone: [facility] Work Phone: Start: 12-29-2023 End: 12-29-2023 Departed Referred Larry Kofi Work Phone: [facility]-LAB Path Spec Loc Hosp Start: 12-16-2023 End: 12-16-2023 ambulatory Larry J Kofi Work Phone: [facility] Work Phone: Start: 12-16-2023 Non-patient / Non-visit Larry A linda Work Phone: [facility] Work Phone: Start: 12-16-2023 End: 12-16-2023 Patient encounter procedure Larry Kofi Work Phone: [facility]-Sleep Lab Work Phone: Start: 12-14-2023 End: 12-14-2023 ambulatory Larry Sina Kirby Work Phone: [facility] Work Phone: Start: 12-14-2023 End: 12-14-2023 Patient encounter procedure Larry Kofi Work Phone: [facility]-Sleep [facility] Work Phone: Start: 12-12-2023 End: 12-12-2023 ambulatory Larry Sina Kirby Work Phone: [facility] Work Phone: Start: 12-12-2023 End: 12-12-2023 Patient encounter procedure Larry Kofi Work Phone: [facility] Work Phone: Start: 11-02-2023 End: 11-02-2023 Patient encounter procedure Larry Kofi Work Phone: [facility] Work Phone: Start: 10-14-2023 End: 10-14-2023 ambulatory Larry Sina Kirby Work Phone: [facility] Work Phone: Start: 10-14-2023 End: 10-14-2023 Patient encounter procedure Larry Kofi Work Phone: [facility] [place] Work Phone: Start: 09-29-2023 End: 10-01-2023 ambulatory LARRY KIRBY [facility] Start: 09-20-2023 End: 09-20-2023 Patient encounter procedure Larry Kirby Work Phone: [facility]-Sleep Lab Work Phone: Start: 09-20-2023 End: 09-20-2023 ambulatory Larry J Aichholz Work Phone: [facility] Work Phone: Start: 09-20-2023 Office outpatient vi sit 25 minutes Wiley Mcmanus [facility] Start: 09-20-2023 End: 09-20-2023 Patient encounter procedure Larry Camachoholz Work Phone: [facility]- Start: 08-12-2023 End: 08-12-2023 ambulatory Imad Asaad Other [employer] Other Start: 08-12-2023 Telephone encounter Imad Asaad [facility] Start: 08-10-2023 End: 08-10-2023 ambulatory Imad Asaad Other [employer] Other Start: 08-10-2023 Telephone encounter Imad Asaad [facility] Start: 08-08-2023 End: 08-08-2023 Admission to same day surgery center Larry Mcdonnellz Work Phone: [facility]-Dig[facility]ive [facility] Work Phone: Start: 08-08-2023 End: 08-08-2023 ambulatory Larry Camachoholz Work Phone: [facility] Work Phone: Start: 06-30-2023 End: 06-30-2023 Patient encounter procedure Larry Camachoholz Work Phone: [facility]-Lab [facility] [place] Work Phone: Start: 06-30-2023 End: 06-30-2023 ambulatory Larry Camachoholz Work Phone: [employer] Other Start: 06-30-2023 Office outpatient ne w 30 minutes Majo Lyman [facility] Start: 06-30-2023 End: 06-30-2023 Patient encounter procedure Larry Aichholz Work Phone: [facility] Work Phone: Start: 06-07-2023 End: 06-07-2023 ambulatory Louise Johnson Other [facility] [email or web address] Other Start: 06-07-2023 Encounter by nat r ginna Johnson [facility] [place] Start: 06-07-2023 Office outpatient vi sit 25 minutes Louise Johnson [facility] [place] Start: 03-16-2023 End: 03-16-2023 ambulatory Larry Kirby Work Phone: [facility] Work Phone: Start: 03-16-2023 End: 03-16-2023 Patient encounter procedure Larry Kirby Work Phone: [facility]-Sleep Lab Work Phone: Start: 01-26-2023 Telephone encounter Rikki norris DMD, MD Work Phone: [facility] Oral Surgery Start: 01-18-2023 ambulatory BRIAN KIRBY Facil ity:[facility] Start: 12-13-2022 End: 12-13-2022 Subsequent hospital visit by physician Larry Kirby Work Phone: [facility] Laboratory Comment on above: OAB (overactive blad darinel); Urge incontinence; Frequency of urination Start: 11-26-2022 End: 11-26-2022 ambulatory BRIAN KIRBY Facility:[facility] Start: 11-16-2022 End: 11-16-2022 ambulatory Larry Sina Kirby Work Phone: [facility] Work Phone: Start: 11-16-2022 End: 11-16-2022 Patient encounter procedure Larry Kirby Work Phone: [facility]-Sleep Lab Work Phone: Start: 11-12-2022 End: 11-12-[address] OSWALD HARRINGTON . Facility: Start: 11-04-2022 Telephone encounter Yi wylie MD Work Phone: [facility] Otolaryngology (ENT) Start: 11-01-2022 Encounter for preprocedural cardiovascular examination DR OSWALD HARRINGTON . [facility] Start: 11-01-2022 Telephone encounter Rikki norris DMD, MD Work Phone: [facility] Oral Surgery Start: 10-28-2022 End: 10-29-[address] OSWALD HARRINGTON . Facility: Start: 10-28-2022 End: 10-29-2022 Encounter for preprocedural cardiovascular examination DR OSWALD HARRINGTON . Facility: Start: 10-19-2022 End: 10-19-2022 ambulatory UNKNOWN PROVIDER Facility:[facility] Start: 09-24-[address] OSWALD HARRINGTON . Facili ty: Start: 09-21-[address] OSWALD HARRINGTON . Facili ty: Start: 09-02-2022 End: 09-03-2022 ambulatory BRIAN KIRBY Facility: Start: 08-30-2022 ambulatory UNKNOWN PROVIDER Facili ty:[facility] Start: 08-30-2022 End: 08-30-2022 Follow-up encounter Rikki Rodrigues DMD, MD Work Phone: [facility] Oral Surgery Start: 08-30-2022 End: 08-30-2022 Patient encounter procedure Rikki Rodrigues DMD, MD Work Phone: [facility] Oral Surgery Comment on above: Post-operative state (Primary Dx) Start: 08-12-2022 End: 08-12-2022 Subsequent hospital visit by physician Larry Kirby Work Phone: [facility] Laboratory Comment on above: Dysuria Start: 08-11-2022 Telephone encounter Jerel Villegas DDS Work Phone: [facility] Oral Surgery Start: 08-02-2022 Telephone encounter Rikki norris DMD, MD Work Phone: [facility] Oral Surgery Start: 07-28-2022 Telephone encounter Mikal amador CHAU Work Phone: [facility] Oral Surgery Start: 07-23-2022 End: 07-23-2022 Follow-up encounter Rikki Rodrigues DMD, MD Work Phone: [facility] Oral Surgery Start: 07-23-2022 End: 07-23-2022 Telemedicine consultation with patient Rikki Rodrigues DMD, MD Work Phone: [facility] Oral Surgery Comment on above: DIONNE (obstructive sle ep apnea) (Primary Dx) Start: 07-23-2022 End: 07-23-2022 ambulatory UNKNOWN PROVIDER Facility:[facility] Start: 07-14-2022 End: 07-17-2022 Evaluation and management of inpatient RIKKI LAWRENCELARamesh Facility:[facility] Start: 07-14-2022 End: 07-15-2022 ambulatory [facility] Facility:[facility] Start: 07-14-2022 End: 07-14-2022 Subsequent hospital visit by physician Rikki Rodrigues DMD, MD Work Phone: [facility] Radiology Comment on above: Arrived Start: 07-14-2022 End: 07-17-2022 Evaluation and management of inpatient Rikki Rodrigues DMD, MD Work Phone: [facility] Comment on above: DIONNE (obstructive sle ep apnea) (Primary Dx); Pain Start: 07-09-2022 Telephone encounter Yi wylie MD Work Phone: [facility] Otolaryngology (ENT) Comment on above: Patient questions/co ncerns (Patient asking what next step is after jaw surgery) Start: 07-08-2022 End: 07-09-2022 ambulatory UNKNOWN PROVIDER Facility:[facility] Start: 07-08-2022 End: 07-09-2022 Office outpatient new 45 minutes Larry MORRIS Work Phone: [facility] Pre Surgical Evaluation Comment on above: Pre-op testing (Prim amy Dx); Body mass index (BMI) 35.0-35.9, adult Start: 07-08-2022 End: 07-09-2022 Patient encounter status Larry Holbrook [employer]-ROOM SERVICE FOOD SERVICE ATTENDANT Work Phone: [facility] Pre Surgical Evaluation Start: 07-07-2022 End: 07-08-2022 ambulatory ROOM SERVICE FOOD SERVICE ATTENDANT LARRY KIRBY Facility: Start: 07-06-2022 End: 07-06-2022 Patient encounter procedure Pierce Ramos LINOLEUM TILE LAYER-ROOM SERVICE FOOD SERVICE ATTENDANT Work Phone: [facility] Pre-Surgical Evaluation Comment on above: ENCOUNTER OPENED IN ERROR (Primary Dx) Start: 07-05-2022 Telephone encounter Camryn guy RN [facility] Pre Surgical Evaluation Comment on above: Pre-surgical Evaluat ion (Pre-op COVID testing not needed ) Start: 07-02-2022 End: 07-06-2022 ambulatory UNKNOWN PROVIDER Facility:[facility] Start: 07-02-2022 End: 07-02-2022 Follow-up encounter Rikki Rodrigues DMD, MD Work Phone: [facility] Oral Surgery Start: 07-02-2022 End: 07-02-2022 Patient encounter procedure Rikki Rodrigues DMD, MD Work Phone: [facility] Oral Surgery Comment on above: DIONNE (obstructive sle ep apnea) (Primary Dx) Start: 06-18-2022 End: 06-20-2022 Office outpatient new 30 minutes Rikki Rodrigues DMD, MD Work Phone: [facility] Oral Surgery Comment on above: Obstructive sleep ap shaun (Primary Dx); DIONNE (obstructive sleep apnea); Body mass index (BMI) 34.0-34.9, adult Start: 06-18-2022 End: 06-20-2022 Orders Only Saleem Mi DMD Work Phone: [facility] Oral Surgery Start: 06-15-2022 End: 06-15-2022 ambulatory UNKNOWN PROVIDER Facility:[facility] Start: 06-03-2022 End: 06-03-2022 ambulatory YI MORENO Facility:[facility] Start: 05-31-2022 End: 05-31-2022 ambulatory Isabel Sin Other [employer] Other Start: 05-31-2022 Office outpatient vi sit 5 minutes Isabel Popeault [facility] [place] Start: 05-28-2022 Telephone encounter [facility] Comment on above: Pre-surgical Evaluat ion (Pre-op COVID testing) Start: 05-28-2022 ambulatory UNKNOWN PROVIDER Facili ty:[facility] Start: 05-28-2022 End: 05-28-2022 Nursing evaluation of patient and report Pse Rn [facility] Comment on above: Preop examination (P rimary Dx) Start: 05-28-2022 End: 05-28-2022 Preprocedural examination done Pse Rn [facility] Pre Surgical Evaluation Start: 05-26-2022 Telephone encounter Cam[facility] Comment on above: Pre-surgical Evaluat ion (Pre-op COVID testing) Start: 05-19-2022 End: 05-19-2022 ambulatory Larry Kirby Work Phone: [facility] Work Phone: Start: 05-19-2022 End: 05-19-2022 Patient encounter procedure Larry Kofi Work Phone: [facility]-Sleep Lab Start: 05-18-2022 Letter encounter Yi saunders MD Work Phone: [facility] Otolaryngology (ENT) Start: 05-17-2022 End: 05-18-[address] WILEY JAMES Facility:[facility] Start: 05-11-2022 End: 05-12-[address] OSWALD HARRINGTON . Facility:[facility] Start: 05-07-2022 End: 05-08-[address] OSWALD HARRINGTON . Facility:[facility] Start: 03-29-2022 End: 03-30-2022 Phys/qhp telephone evaluation 11-20 min Yi Moreno MD Work Phone: [facility] Otolaryngology (ENT) Comment on above: DIONNE (obstructive sle ep apnea) (Primary Dx) Start: 03-29-2022 End: 03-30-2022 ambulatory UNKNOWN PROVIDER Facility:[facility] Start: 03-09-2022 End: 03-10-2022 ambulatory ROOM SERVICE FOOD SERVICE ATTENDANT LARRY KIRBY Facility:[facility] Start: 03-09-2022 Telephone encounter Yi wylie MD Work Phone: [facility] Otolaryngology (ENT) Start: 02-25-2022 End: 02-26-2022 Evaluation and management of inpatient YI MORENO Facility:[facility] Start: 02-25-2022 End: 02-26-2022 Subsequent hospital visit by physician Yi Moreno MD Work Phone: Inpatient 8B Comment on above: Encounter for labora tory testing for severe acute respiratory syndrome coronavirus 2 (SARS-CoV-2) (Primary Dx); DIONNE (obstructive sleep apnea); Postoperative pain Start: 02-24-2022 Telephone encounter Camryn guy RN [facility] Pre Surgical Evaluation Comment on above: Pre-surgical Evaluat ion (Pre-op COVID testing - results) Start: 02-23-2022 End: 02-24-[address] DOCTOR ABDULLAHI Facility:[facility] Start: 02-19-2022 End: 02-21-2022 Subsequent hospital visit by physician Yaneth Sharp Dr Room 2 [facility] Radiology Comment on above: Ureteral stone Start: 02-17-2022 Telephone encounter Camryn guy RN [facility] Pre Surgical Evaluation Comment on above: Pre-surgical Evaluat ion (Pre-op COVID testing) Start: 02-16-2022 End: 02-18-2022 ambulatory UNKNOWN PROVIDER Facility:[facility] Start: 02-16-2022 Encounter for other preprocedural examination UNKNOWN PROVIDER [facility] Start: 02-16-2022 End: 02-17-2022 Office outpatient new 45 minutes Pierce Ramos APRN-ROOM SERVICE FOOD SERVICE ATTENDANT Work Phone: [facility] Pre-Surgical Evaluation Comment on above: Preop testing (Prima ry Dx); Abnormal electrocardiogram (ECG) (EKG); Body mass index (BMI) 32.0-32.9, adult Start: 02-16-2022 End: 02-17-2022 Patient encounter status Pierce Ramos [employer]-ROOM SERVICE FOOD SERVICE ATTENDANT Work Phone: [facility] Pre-Surgical Evaluation Start: 02-16-2022 Telephone encounter Yi wylie MD Work Phone: [facility] Otolaryngology (ENT) Start: 02-11-2022 Telephone encounter Camryn guy RN [facility] Pre Surgical Evaluation Comment on above: Pre-surgical Evaluat ion (Pre-op COVID testing) Start: 02-04-2022 Letter encounter Yi sanuders MD Work Phone: [facility] Otolaryngology (ENT) Start: 01-12-2022 End: 01-12-2022 ambulatory Wiley Mcmanus Other [employer] Other Start: 01-12-2022 Telephone encounter Wiley Mcmanus [facility] Sleep [facility] Start: 01-11-2022 End: 01-11-2022 Office consultation new/estab patient 60 min Yi Moreno MD Work Phone: [facility] Otolaryngology (ENT) Comment on above: DIONNE (obstructive sle ep apnea) (Primary Dx); Body mass index (BMI) 34.0-34.9, adult Start: 01-05-2022 End: 01-05-2022 Subsequent hospital visit by physician Bertha Hirsch MD Work Phone: [email or web address] Start: 12-30-2021 End: 12-30-2021 Patient encounter status Larry Kirby Work Phone: [email or web address] Start: 12-30-2021 End: 12-30-2021 Subsequent hospital visit by physician Larry Kirby Work Phone: [facility] Comment on above: Pre-op testing Start: 12-22-2021 End: 12-24-2021 Subsequent hospital visit by physician [facility] Comment on above: Kidney stones Start: 12-02-2021 Office outpatient vi sit 10 minutes Larry Kirby Work Phone: -[facility] 250 DO Work Phone: Start: 11-09-2021 End: 11-09-2021 ambulatory Wiley Mcmanus Other [email or web address] Other Start: 11-09-2021 Office outpatient vi sit 40 minutes Wiley Mcmanus [facility] Start: 10-14-2021 Office outpatient vi sit 25 minutes Larry Kirby Work Phone: -[facility] 250 DO Work Phone: Procedures Date Procedure Procedure Detail Performing Clinician Start: 01-22-2025 Arthrocentesis aspir&/inj major jt/bursa w/o us Mark Olmedo PA Work Phone: Start: 12-11-2024 Urnls dip stick/tablet rgnt non-auto w/o micrscp Oswald Len DO Work Phone: Start: 11-22-2024 IGP,APTIMA HPV,AGE GDLN Aurea GAVIRIA Work Phone: Start: 09-27-2024 XR ACUTE ABDOMEN SERIES Larry Kirby BUSINESS PROGRAMMER Work Phone: Start: 09-25-2024 ALL CBC WITH AUTO DIFF Larry Kirby BUSINESS PROGRAMMER Work Phone: Start: 09-25-2024 POCT COVID & FLU A/B ANTIGEN TEST Larry mckeon BUSINESS PROGRAMMER Work Phone: Start: 09-18-2024 Bacteria identified in Urine by Culture Generic External Data Provider Start: 09-13-2024 [facility] URINALYSIS, WITH MICROSCOPIC Generi c External Data Provider Start: 09-13-2024 Urnls dip stick/tablet reagent auto microscopy Elin Ballard LINOLEUM TILE LAYER - ROOM SERVICE FOOD SERVICE ATTENDANT Work Phone: Start: 07-11-2024 Mammography Aurea GAVIRIA Work Phone: Start: 05-08-2024 Diagnostic radiography of abdomen Larry mckeon Work Phone: Start: 05-07-2024 SARS-COV-2 AG* Larry Kirby BUSINESS PROGRAMMER Work Phone: Start: 04-26-2024 ALL THYROXINE (T4) FREE Generic External Data Provider Start: 12-20-2023 Mammography Larry Kirby BUSINESS PROGRAMMER Work Phone: Start: 12-14-2023 End: 12-14-2023 Diagnostic radiography of abdomen Larry mckeon Work Phone: Start: 11-22-2023 Microscopic observation [Identifier] in Cervix by Cyto stain Aurea GAVIRIA Work Phone: Start: 11-22-2023 Cytp cerv/vag auto thin layer prep mnl screen Aurea GAVIRIA Work Phone: Start: 10-14-2023 COVID/Influenza PCR (POC) Larry Kirby Work Phone: Start: 08-08-2023 End: 08-08-2023 Colonoscopy Larry Kirby Work Phone: Start: 12-13-2022 Urnls dip stick/tablet reagent auto microscopy Elin Ballard LINOLEUM TILE LAYER - ROOM SERVICE FOOD SERVICE ATTENDANT Work Phone: Start: 08-12-2022 Urnls dip stick/tablet [...] Phone: Start: 07-08-2022 Blood typing serologic abo Larry DEL CASTILLO RN-ROOM SERVICE FOOD SERVICE ATTENDANT Work Phone: Start: 07-08-2022 Blood count complete automated Larry vasquez APRN-ROOM SERVICE FOOD SERVICE ATTENDANT Work Phone: Start: 07-08-2022 Blood typing, ABO, Rho(D) and RBC antibody screening Larry Holbrook LINOLEUM TILE LAYER-ROOM SERVICE FOOD SERVICE ATTENDANT Work Phone: Start: 06-18-2022 panoramic radiographic image [...] lds trcg only w/o i&r Pierce Ramos LINOLEUM TILE LAYER-ROOM SERVICE FOOD SERVICE ATTENDANT Work Phone: Start: 01-11-2022 Laryngoscopy flexible diagnostic Yi Moreno MD Work Phone: Start: 01-05-2022 Fluoroscopy during operation Bertha john MD Work Phone: Start: 01-05-2022 Urine test visual color cmprsn meths Majo Lilia LINOLEUM TILE LAYER - DIVE SUPERINTENDENT Start: 12-30-2021 Basic metabolic panel calcium total Jerel D Steffiskie PA-C Work Phone: Start: 12-22-2021 Radiologic exam abdomen 1 view Jerel D Do rkoskie PA-C Work Phone: Start: 10-25-2017 Microscopic observation [Identifier] in Cervix by Cyto stain Larry Kirby BUSINESS PROGRAMMER Work Phone: section Larry Maldonado olz Work Phone: Cholecystectomy Larry Maldonado ludmila Work Phone: Dental surgical procedure Cassandra Maldonadoludmila Work Phone: History of tonsillectomy History of tonsillectomy Larry Elvisnicanorludmila Work Phone: Lithotripsy Larry roberts Work Phone: Plan of Treatment Date Care Activity Detail Author Start: 08-08-2033 Screening for malignant neoplasm of colon [facility] Start: 11-21-2028 Screening for malignant neoplasm of cervix [facility] Start: 04-13-2028 Screening for malignant neoplasm of cervix [facility] Start: 07-11-2025 Screening for malignant neoplasm of breast Mammogram [facility] Start: 05-06-2025 End: 05-06-2025 Patient encounter procedure 05/06/2025 3:00 PM EDT Office Visit [facility] [address] [place] [phone] Larry Kirby, BUSINESS PROGRAMMER [address] [place] [phone] [facility] Start: 04-17-2025 End: 04-17-2025 Patient encounter procedure [facility] Start: 2025 Shingles (RZV) Vaccine (1 of 2) Shingles (RZV) Vaccine (1 of 2) [facility] Start: 04-08-2025 End: 04-08-2025 Patient encounter procedure 04/08/2025 2:50 PM EDT Office Visit [facility] [address] [place] [phone] Rhina Amor MD [address] [place] [address] [facility] Start: 04-05-2025 End: 04-05-2025 Patient encounter procedure 04/05/2025 11:15 AM EDT Office Visit [facility] [address] [place] [address] Jr. Ayden Valentino, [address] [address] [facility] Start: 03-20-2025 End: 03-20-2025 Patient encounter procedure 03/20/2025 3:00 PM EDT Office Visit [facility] [address] [place] [address] Larry Kirby, PHILLY [address] [place] [address] [facility] Start: 02-20-2025 End: 02-20-2025 Patient encounter procedure 02/20/2025 1:15 PM EDT Office Visit [facility] [address] [place] [phone] Jr. Ayden Valentino DO [address] [place] [address] [facility] Start: 02-13-2025 End: 02-13-2025 Patient encounter procedure [facility] Comment on above: Primary hypertension (Primary Dx); Chronic right shoulder pain; Overweight (BMI 25.0-29.9) Start: 01-23-2025 End: 01-23-2026 MR Shoulder - right WO contrast MR shoulder right wo IV contrast Imaging Routine Internal derangement of right shoulder Expected: 01/23/2025 (Approximate), Expires: 01/23/2026 [facility] Work Phone: Comment on above: Expected: 01/23/2025 (Approximate), Expi res: 01/23/2026 Start: 01-22-2025 End: 01-22-2025 Patient encounter procedure 01/22/2025 2:00 PM EDT Office Visit [facility] [address] [place] [phone] Mark Olmedo, PA [address] [place] [address] [facility] Start: 01-21-2025 End: 01-21-2025 ambulatory 01/21/2025 2:00 PM EDT Treatment [facility] [address] [facility] [address] [place] [address] Adriana Barrios, PT [facility] Start: 01-17-2025 End: 01-17-2025 ambulatory 01/17/2025 1:00 PM EDT Treatment [facility] [address] [facility] [address] [place] [address] Adriana Barrios, PT [facility] Start: 01-08-2025 End: 01-08-2025 ambulatory 01/08/2025 9:00 AM EDT Treatment [facility] [address] [facility] [address] [place] [address] Adriana Barrios, PT [facility] Start: 01-07-2025 End: 01-07-2025 Patient encounter procedure [facility] Comment on above: Arrived Start: 01-04-2025 End: 01-04-2025 ambulatory 01/04/2025 3:00 PM EDT Treatment [facility] [address] [facility] [address] [place] [address] Jose Cardozo, ABHIJIT [facility] Start: 12-25-2024 End: 12-25-2024 Patient encounter procedure 12/25/2024 2:20 PM EDT Office Visit [facility] [address] [facility] [facility] [place] [phone] Oswald Harrington, [address] [facility] [place] [address] [facility] Start: 12-20-2024 End: 12-20-2024 Patient encounter procedure 12/20/2024 1:20 PM EDT Office Visit [facility] [address] [place] [address] Larry Kirby, PHILLY [address] [place] [address] [facility] Start: 12-19-2024 End: 12-19-2024 ambulatory 12/19/2024 3:30 PM EDT Treatment [facility] [address] [place] [address] Adriana Barrios, PT [facility] Start: 12-19-2024 Screening for malignant neoplasm of breast Mammogram [facility] Start: 12-12-2024 End: 12-12-2024 ambulatory 12/12/2024 3:30 PM EDT Treatment [facility] [address] [place] [address] Adriana Barrios, PT [facility] Start: 12-11-2024 End: 12-11-2024 Patient encounter procedure 12/11/2024 10:50 AM EDT Office Visit [facility] [address] [place] [address] Oswald Harrington, DO [address] [place] [address] [facility] Start: 12-10-2024 End: 12-10-2024 ambulatory 12/10/2024 3:00 PM EDT Treatment [facility] [address] [facility] [address] [place] [address] Adriana Barrios, PT [facility] Start: 12-06-2024 End: 12-06-2024 ambulatory 12/06/2024 3:30 PM EDT Treatment [facility] [address] [place] [address] Camryn Zafar, PLUMBER'S ASSISTANT [facility] Start: 12-03-2024 End: 12-03-2024 ambulatory [facility] Comment on above: Acute pain of right shoulder (Primary Dx ) Start: 11-29-2024 End: 11-29-2024 ambulatory 11/29/2024 12:30 PM EDT Treatment [facility] [address] [place] [address] Camryn Zafar, PLUMBER'S ASSISTANT [facility] Start: 11-26-2024 End: 11-26-2024 ambulatory 11/26/2024 12:00 PM EDT Evaluation [facility] [address] [place] [address] Barrios Adriana, PT [facility] Start: 11-22-2024 End: 11-22-2024 Patient encounter procedure [facility] Comment on above: Arrived Start: 11-22-2024 End: 01-22-2026 MG Breast - bilateral Screening Bilateral screening mammogram Imaging Routine Encounter for screening mammogram for malignant neoplasm of breast Expected: 11/22/2024 (Approximate), Expires: 01/22/2026 [facility] Work Phone: Comment on above: Expected: 11/22/2024 (Approximate), Expi res: 01/22/2026 Start: 11-20-2024 End: 11-20-2024 Patient encounter procedure [facility] Comment on above: Acute pain of right shoulder (Primary Dx ) Start: 10-29-2024 End: 10-29-2024 Patient encounter procedure 10/29/2024 4:00 PM EDT Office Visit [address] [place] [phone] Bertha Hirsch MD [address] [place] [address], [address] [place] [address] 6 month [facility] Comment on above: 6 month KUB Start: 10-09-2024 End: 10-09-2024 Patient encounter procedure [facility] Comment on above: Arrived Start: 09-25-2024 End: 09-25-2025 Amylase [Enzymatic activity/volume] in Serum or Plasma Amylase Lab Routine Generalized abdominal pain Expected: 09/25/2024 (Approximate), Expires: 09/25/2025 [facility] Comment on above: Expected: 09/25/2024 (Approximate), Expi res: 09/25/2025 Start: 09-25-2024 End: 09-25-2025 Bacteria identified in Urine by Culture Urine culture (clean catch) Microbiology Routine Generalized abdominal pain Expected: 09/25/2024 (Approximate), Expires: 09/25/2025 [facility] Comment on above: Expected: 09/25/2024 (Approximate), Expi res: 09/25/2025 Start: 09-25-2024 End: 09-25-2025 CBC W Auto Differential panel - Blood CBC and differential Lab Routine Generalized abdominal pain Expected: 09/25/2024 (Approximate), Expires: 09/25/2025 [facility] Work Phone: Comment on above: Expected: 09/25/2024 (Approximate), Expi res: 09/25/2025 Start: 09-25-2024 End: 09-25-2025 Comprehensive metabolic 2000 panel - Serum or Plasma Comprehensive metabolic panel Lab Routine Generalized abdominal pain Expected: 09/25/2024 (Approximate), Expires: 09/25/2025 [facility] Comment on above: Expected: 09/25/2024 (Approximate), Expi res: 09/25/2025 Start: 09-25-2024 End: 09-25-2025 Lipase [Enzymatic activity/volume] in Serum or Plasma Lipase Lab Routine Generalized abdominal pain Expected: 09/25/2024 (Approximate), Expires: 09/25/2025 [facility] Comment on above: Expected: 09/25/2024 (Approximate), Expi res: 09/25/2025 Start: 09-25-2024 End: 09-25-2025 Urinalysis complete panel - Urine Urinalysis with reflex microscopic (clean catch) Lab Routine Generalized abdominal pain Expected: 09/25/2024 (Approximate), Expires: 09/25/2025 [facility] Comment on above: Expected: 09/25/2024 (Approximate), Expi res: 09/25/2025 Start: 09-25-2024 End: 09-25-2025 XR Chest View and Abdomen Supine and Upright XR abdomen 2 views w chest 1 view Imaging Routine Generalized abdominal pain Subacute cough Expected: 09/25/2024, Expires: 09/25/2025 [facility] Comment on above: Expected: 09/25/2024, Expires: Start: 09-24-2024 End: 09-24-2024 Patient encounter procedure 09/24/2024 3:20 PM EST Office Visit [facility] [address] [place] [address] Oswald Harrington, [address] [facility] [place] [address] [facility] Start: 08-06-2024 End: 08-06-2025 US for US PELVIS-TRANSVAG IF INDICATED Imaging Routine Complex ovarian cyst Expected: 08/06/2024 (Approximate), Expires: 08/06/2025 [facility] Work Phone: Comment on above: Expected: 08/06/2024 (Approximate), Expi res: 08/06/2025 Start: 06-19-2024 End: 06-19-2024 Patient encounter procedure 06/19/2024 3:20 PM EDT Office Visit [facility] [address] [place] [phone] Larry Kirby NP [address] [place] [phone] Hypokalemia (Primary Dx) [facility] Comment [...] Office Visit [facility] [address] [place] [phone] Larry Kirby, BUSINESS PROGRAMMER [address] [place] [address] [facility] Start: 05-14-2024 End: 05-14-2024 Patient encounter procedure 05/14/2024 3:00 PM EDT Office Visit [facility] [address] [place] [phone] Larry Kirby, BUSINESS PROGRAMMER [address] [place] [phone] [facility] Start: 05-02-2024 End: 05-02-2024 Patient encounter procedure 05/02/2024 3:20 PM EDT Office Visit [facility] [address] [place] [phone] Larry Kirby, BUSINESS PROGRAMMER [address] [place] [phone] Arrived [facility] Comment on above: Arrived Start: 04-22-2024 COVID-19 Vaccine ( season) COVID-19 Vaccine ( season) [facility] Start: 04-22-2024 COVID-19 Vaccine ( season) COVID-19 Vaccine ( season) [facility] Start: 04-22-2024 Influenza vaccination Influenza Vaccine (#1) [facility] Start: 03-22-2024 Influenza vaccination Flu vaccine (#1) [facility] Start: 08-08-2023 [facility] Start: 03-22-2023 Influenza vaccination Flu vaccine (Season Ended) [facility] Start: 02-21-2023 End: 02-21-2023 Patient encounter procedure 02/21/2023 Office Visit [facility] Start: 12-21-2022 Cholesterol [Mass/volume] in Serum or Plasma Cholesterol [facility] Start: 12-21-2022 Lipid panel [facility] Start: 10-25-2022 Screening for malignant neoplasm of cervix Pap Smear [facility] Start: 10-19-2022 End: 10-19-2022 Patient encounter procedure 10/19/2022 Office Visit Ent-Otolaryngology Yi Moreno MD [address] [place] [address] [facility] (ENT) Start: 08-13-2022 End: 08-13-2022 Patient encounter procedure 08/13/2022 Office Visit Or al Surgery Rikki Rodrigues DMD, MD [address] [place] [address] [facility] Oral Surgery Start: 07-30-2022 End: 07-30-2022 Patient encounter procedure 07/30/2022 Office Visit Or al Surgery Rikki Rodrigues DMD, MD [address] [place] [address] [facility] Oral Surgery Start: 07-23-2022 End: 07-23-2022 Telemedicine consultation with patient 07/23/2022 Telemedicine Oral Surgery Rikki Rodrigues DMD, MD [address] [place] [address] [facility] Oral Surgery Start: 07-14-2022 End: 07-14-2022 Admission to same day surgery center 07/14/2022 Surgery General Surgery Rikki Rodrigues DMD, MD [address] [place] [phone] [facility] I OSTEOTOMY [facility] OR Comment on above: LEFORTE [...] Encounter General Surgery Rikki Rodrigues DMD, MD [address] [place] [address] [facility] Start: 07-14-2022 End: 07-14-2022 Admission to same day surgery center 07/14/2022 Surgery General Surgery Rikki Rodrigues DMD, MD [address] [place] [address] LE[facility] I OSTEOTOMY [facility] OR Comment on above: [facility] I OSTEOTOMY Start: 07-14-2022 End: 07-14-2022 Anesthesia consultation 07/14/2022 Anesthesia Event General Surgery Mark Atwood MD [address] [place] [phone] [facility] Start: 07-14-2022 End: 07-14-2022 [...] Encounter General Surgery Rikki Rodrigues DMD, MD [address] [place] [address] [facility] Start: 07-08-2022 End: 07-08-2022 Patient encounter procedure 07/08/2022 Office Visit Presurgical Evaluation Larry Holbrook, KATHRIN-BRIAN [address] [place] [address] [facility] Pre Surgical Evaluation Start: 07-06-2022 End: 07-06-2022 Patient encounter procedure 07/06/2022 Office Visit Presurgical Evaluation Pierce Ramos, LINOLEUM TILE LAYER-ROOM SERVICE FOOD SERVICE ATTENDANT [address] [place] [address] Preop testing (Primary Dx) [facility] Pre-Surgical Evaluation Comment on above: Preop testing (Primary Dx) Start: 06-15-2022 End: 06-15-2022 Patient encounter procedure 06/15/2022 Office Visit Ent-Otolaryngology Yi Moreno MD [address] [place] [address] [facility] Otolaryngology (ENT) Start: 06-03-2022 End: 06-03-2022 Admission to same day surgery center 06/03/2022 Surgery Ambulatory Surgery Yi Moreno MD [address] [place] [address] BRONCHOSCOPY, FLEXIBLE, DRUG INDUCED SLEEP ENDOSCOPY (DISE) [facility] OR PACU Comment on above: BRONCHOSCOPY, FLEXIBLE, DRUG INDUCED SLE EP ENDOSCOPY (DISE) Start: 06-03-2022 End: 06-03-2022 BRONCHOSCOPY, FLEXIBLE, DRUG INDUCED SLEEP ENDOSCOPY (DISE) BRONCHOSCOPY, FLEXIBLE, DRUG INDUCED SLEEP ENDOSCOPY (DISE) Routine scheduled DIONNE (obstructive sleep apnea) 06/03/2022 8:39 AM EDT PACU Procedure Rooms Start: 06-03-2022 Subsequent hospital visit by physician [facility] PACU Comment on above: Encounter for laboratory testing for sev ere acute respiratory syndrome coronavirus 2 (SARS-CoV-2) (Primary Dx) Start: 05-28-2022 End: 05-28-2022 Nursing evaluation of patient and report 05/28/2022 Nurse Visit Presurgical Evaluation [facility] Pre Surgical Evaluation Start: 05-22-2022 Influenza vaccination Influenza Vaccine (#1) [facility] Start: 04-22-2022 Influenza vaccination [facility] Start: 03-29-2022 End: 03-29-2022 Telemedicine consultation with patient 03/29/2022 Telemedicine Ent-Otolaryngology Yi Moreno MD [address] [place] [address] [facility] Otolaryngology (ENT) Start: 03-24-2022 FUV, Provider: Eileen Nichols, Status: Pen, Time: 3:50 PM FUV, Provider: Eileen Nichols, Status: Pen, Time: 3:50 PM [place] [address] DO Work Phone: Start: 03-22-2022 Influenza vaccination [facility] Start: 02-25-2022 End: 02-25-2022 Admission to same day surgery center 02/25/2022 Surgery General Surgery Yi Moreno MD [address] [place] [address] UVULOPALATOPHARYNGOPLASTY [facility] OR Comment on above: UVULOPALATOPHARYNGOPLASTY Start: 02-25-2022 Subsequent hospital visit by physician [facility] Comment on above: Encounter for laboratory testing for sev ere acute respiratory syndrome coronavirus 2 (SARS-CoV-2) (Primary Dx) Start: 02-25-2022 End: 02-25-2022 UVULOPALATOPHARYNGOPLASTY [facility] Start: 02-25-2022 End: 02-25-2022 Admission to same day surgery center 02/25/2022 Surgery General Surgery Yi Moreno MD [address] [place] [address] UVULOPALATOPHARYNGOPLASTY [facility] Comment on above: UVULOPALATOPHARYNGOPLASTY Start: 02-25-2022 Subsequent hospital visit by physician 02/25/2022 Hospital Encounter General Surgery Yi Moreno MD [address] [place] [address], [place] [address] Encounter for laboratory testing for severe acute respiratory syndrome coronavirus 2 (SARS-CoV-2) (Primary Dx) [facility] Comment on above: Encounter for laboratory testing for sev ere acute respiratory syndrome coronavirus 2 (SARS-CoV-2) (Primary Dx) Start: 02-25-2022 End: 02-25-2022 UVULOPALATOPHARYNGOPLASTY UVULOPALATOPHARYNGOPLASTY Routine scheduled DIONNE (obstructive sleep apnea) 02/25/2022 9:20 AM EDT [facility] SERVICES Start: 02-23-2022 End: 02-23-2022 Patient encounter procedure 02/23/2022 Office Visit Urology Elin Ballard, LINOLEUM TILE LAYER - ROOM SERVICE FOOD SERVICE ATTENDANT [address] [place] [address] [facility] Start: 02-16-2022 End: 02-16-2022 Patient encounter procedure 02/16/2022 Office Visit Presurgical Evaluation Pierce Ramos APRN-BRIAN [address] [place] [address] [facility] Pre-Surgical Evaluation Start: 01-08-2022 End: 01-08-2022 Patient encounter procedure 01/08/2022 Office Visit Urology Elin Ballard APRN - ROOM SERVICE FOOD SERVICE ATTENDANT [address] [place] [address] [facility] Start: 01-05-2022 End: 01-05-2022 Cysto/uretero w/lithotripsy &indwell stent insrt CYSTOSCOPY URETEROSCOPY LASER KID[facility] STONES 01/05/2022 2:[address] [facility] Start: 12-06-2021 COVID-19 Vaccine (3 - Booster for Pfizer series) COVID-19 Vaccine (3 - Booster for Pfizer series) [facility] Start: 12-01-2021 NURSEVST, Provider: AUSTIN ACOSTA03 PLANER OPERATOR [id number], Status: Pen, Time: 3:15 PM NURSEVST, Provider: AUSTIN WALL PLANER OPERATOR [id number], Status: Pen, Time: 3:15 PM -[facility] 250 DO Work Phone: Start: 09-02-2021 COVID-19 Vaccine (3 - Booster for Pfizer series) COVID-19 Vaccine (3 - Booster for Pfizer series) [facility] Start: 2020 Cholesterol [Mass/volume] in Serum or Plasma Cholesterol [facility] Start: 2020 Screening for malignant neoplasm of colon [facility] Start: 2015 Lipid panel Lipids [facility] Start: 2015 Screening for malignant neoplasm of breast [facility] Start: 2010 Diabetes screen Diabetes screen [facility] Start: 2005 Screening for malignant neoplasm of cervix [facility] Start: 1996 Screening for malignant neoplasm of cervix Pap smear [facility] Start: 1994 DTaP/Tdap/Td vaccine (1 - Tdap) DTaP/Tdap/Td vaccine (1 - Tdap) [facility] Start: 1994 Hepatitis A (HAV) Vaccine (optional start 19+ years) Hepatitis A (HAV) Vaccine (optional start 19+ years) [facility] Start: 1994 Hepatitis B vaccination Hepatitis B (HBV) Vaccine (1 of 3 - 19+ 3-dose series) [facility] Start: 1994 Hepatitis B vaccine (1 of 3 - 19+ 3-dose series) Hepatitis B vaccine (1 of 3 - 19+ 3-dose series) [facility] Start: 1993 Creatinine measurement Creatinine [facility] Start: 1993 Hepatitis C screening [facility] Start: 1993 Potassium [Moles/volume] in Serum or Plasma Potassium [facility] Start: 1993 Tetanus + diphtheria + acellular pertussis vaccine (product) Tdap Booster [facility] Start: 1990 HIV screening [facility] Start: 1987 Depression Monitoring Depression Monitoring [facility] Start: 1985 Lipid panel Lipids [facility] Start: 1975 Screening for malignant neoplasm of colon [facility] Assay of magnesium MAGNESIUM Lab STAT Daily until discontinued starting 07/16/2022, 2 completed [facility] Comment on above: Daily until discontinued starting [...] (DISE) Routine scheduled DIONNE (obstructive sleep apnea) [facility] Calprotectin [Mass/m ass] in [facility] CBC panel - Blood by Automated count COMPLETE BLOOD COUNT Lab STAT Daily until discontinued starting 07/16/2022, 2 completed [employer] Work Phone: Comment on above: Daily until discontinued starting 2021, 2 completed End: 08-12-2022 Culture, Urine [employer] Work Phone: Comment on above: 1 Occurrences starting 08/12/2022 until 08/12/2022 End: 12-13-2022 Culture, Urine [employer] Work Phone: Comment on above: 1 Occurrences starting 12/13/2022 until 12/13/2022 End: 09-13-2024 Culture, Urine [facility] Comment on above: 1 Occurrences starting 09/13/2024 until 09/13/2024 Diagnostic radiograp hy of abdomen [facility] Diagnostic radiograp hy of abdomen [facility] End: 07-14-2022 Ecg routine ecg w/least 12 lds trcg only w/o i&r EKG 12 LEAD - PERFORM MUSE Routine Once for 1 Occurrences starting 07/14/2022 until 07/14/2022 [employer] Work Phone: Comment on above: Once for 1 Occurrences starting 07/14/20 until 07/14/2022 Elastase.pancreatic [Mass/mass] in Stool [facility] Endomysial antibody IgA level [facility] Gliadin peptide IgA Ab [Units/volume] in Serum [facility] Gliadin peptide IgG Ab [Units/volume] in Serum [facility] HIV 1+2 Ab+HIV1 p24 Ag [Presence] in Serum or Plasma by Immunoassay [facility] IgA [Mass/volume] in Serum or Plasma [facility] End: 01-05-2022 INITIATE PACU OXYGEN THERAPY PROTOCOL Initiate PACU Oxygen Therapy Protocol Respiratory Care Routine Continuous until discontinued starting 01/05/2022 [facility] Comment on above: Continuous until discontinued starting 0 01/05/2022 Oxygen therapy [[facility] Data Set] Initiate Oxygen Therapy Protocol Respiratory Care Routine As Needed until discontinued starting 01/05/2022 [facility] Work Phone: Comment on above: As Needed until discontinued starting End: 02-25-2022 Palatopharyngoplasty PALATOPHARYNGOPLASTY Procedures Routine One time for 1 Occurrences starting 02/25/2022 until 02/25/2022 [employer] Comment on above: One time for 1 Occurrences starting 02/2022 until 02/25/2022 Patient Education [facility] Work Phone: [facility] 1 piece w/o bone graft RECONSTRUCTION MIDFACE, LEFORT I; 1 PIECE, W/O BONE GRAFT Procedures Routine DIONNE (obstructive sleep apnea) Ordered: 07/14/2022 [employer] Work Phone: Comment on above: Ordered: 07/14/2022 Rcnstj mndblr rami&/ bdy sgtl splt w/int rgd fi RECONSTRUCTION, MANDIBULAR RAMI &/OR BODY, SAGITTAL SPLIT; W/INT RIGID FIXATION Procedures Routine DIONNE (obstructive sleep apnea) Ordered: 07/14/2022 [employer] Comment on above: Ordered: 07/14/2022 End: 03-17-2022 SARS-CoV-2 (COVID-19) RNA [Presence] in Unspecified specimen by JOHNNIE with probe detection NOVEL CORONAVIRUS (COVID-19) Lab STAT Encounter for laboratory testing for severe acute respiratory syndrome coronavirus 2 (SARS-CoV-2) 1 Occurrences starting 02/15/2022 until 03/17/2022 [employer] Work Phone: Comment on above: 1 Occurrences starting 02/15/2022 until 03/17/2022 Surgical pathology procedure [employer] Work Phone: Comment on above: Release Upon Ordering for 1 Occurrences starting 02/25/2022, 1 completed THIN PREP TIS PAP AN D HR HPV DNA THIN PREP TIS PAP AND HR HPV DNA Pathology and Cytology Routine Well woman exam with routine gynecological exam Ordered: 11/22/2024 [facility] Comment on above: Ordered: 11/22/2024 Tissue transglutamin ase IgA Ab [Units/volume] in Serum [facility] Tissue transglutamin ase IgG Ab [Units/volume] in Serum [facility] UVULOPALATOPHARYNGOPLASTY UVULOP ALATOPHARYNGOPLASTY Routine scheduled DIONNE (obstructive sleep apnea) [facility] Immunizations Immunization Date Immunization Notes Care Provider [facility] 07-08-2021 Pfizer-BioNTech COVID-19 Vacc 30 MCG/0.3ML Intramuscular Suspension Larry Kirby Work Phone: [facility] 06-17-2021 Pfizer-BioNTech COVID-19 Vacc 30 MCG/0.3ML Intramuscular Suspension Larry Kirby Work Phone: [facility] 250 DO Work Phone: 06-27-2013 influenza virus vaccine, whole virus Larry Kirby Work Phone: [facility] 250 DO Work Phone: Payers Date Payer Category Payer Unknown [id number] 2023 Unknown [id number] 2022 Private Health Insurance [employer] [id number]. [id number] 2022 Self-pay [id number] 2021 Commercial Indemnity 1.2.840 .[id number] [id number] 2021 Unknown 1975 Unknown [id number] 2.16.840.1.586445.3.579.2.59 3 1975 Unknown [id number] 2.16.840.1.167667.3.579.2.59 3 1975 Unknown [id number] 2.16.840.1.380275.3.579.2.59 3 1975 Unknown [id number] 2.16.840.1.779531.3.579.2.59 3 1975 Unknown [id number] 2.16.840.1.159742.3.579.2.59 3 1975 Unknown [id number] 2.16.840.1.786623.3.579.2.59 3 1975 Unknown [id number] 2.16.840.1.272471.3.579.2.59 3 1975 Unknown [id number] 2.16.840.1.278924.3.579.2.59 3 1975 Unknown [id number] 2.16.840.1.279938.3.579.2.59 3 1975 Unknown [id number] 2.16.840.1.327735.3.579.2.59 3 1975 Unknown [id number] 2.16.840.1.583019.3.579.2.59 3 1975 Unknown [id number] 2.16.840.1.117756.3.579.2.59 3 1975 Unknown [id number] 2.16.840.1.927662.3.579.2.59 3 1975 Unknown [id number] 2.16.840.1.790165.3.579.2.59 3 1975 Unknown [id number] 2.16.840.1.101577.3.579.2.73 2 1975 Unknown [id number] 2.16.840.1.476741.3.579.2.73 2 1975 Unknown [id number] 2.16.840.1.795130.3.579.2.73 2 1975 Unknown [id number] 2.16.840.1.371707.3.579.2.73 2 1975 Unknown [id number] 2.16.840.1.777837.3.579.2.73 2 1975 Unknown [id number] 2.16.840.1.576726.3.579.2.73 2 1975 Unknown [id number] 2.16.840.1.168965.3.579.2.73 2 1975 Unknown [id number] 2.16.840.1.027644.3.579.2.73 2 1975 Unknown [id number] 2.16.840.1.952126.3.579.2.73 2 1975 Unknown [id number] 2.16.840.1.007570.3.579.2.73 2 1975 Unknown [id number] 2.16.840.1.387616.3.579.2.73 2 1975 Unknown [id number] 2.16.840.1.282552.3.579.2.73 2 1975 Unknown [id number] 2.16.840.1.082053.3.579.2.73 2 1975 Unknown [id number] 2.16.840.1.516830.3.579.2.73 2 1975 Unknown [id number] 2.16.840.1.585073.3.579.2.59 8 1975 Unknown [id number] 2.16.840.1.040379.3.579.2.17 3 1975 Unknown [id number] 2.16.840.1.426581.3.579.2.17 3 1975 Unknown [id number] 2.16.840.1.063202.3.579.2.12 86 1975 Unknown [id number] 2.16.840.1.464275.3.579.2.12 86 1975 Unknown [id number] 2.16.840.1.250429.3.579.2.12 86 1975 Unknown [id number] 2.16.840.1.050972.3.579.2.12 86 1975 Unknown [id number] 2.16.840.1.672519.3.579.2.12 86 1975 Unknown [id number] 2.16.840.1.418038.3.579.2.12 86 1975 Unknown [id number] 2.16.840.1.940918.3.579.2.12 59 1975 Unknown [id number] 2.16.840.1.273349.3.579.2.12 59 1975 Unknown [id number] 2.16.840.1.517681.3.579.2.12 59 1975 Unknown [id number] 2.16.840.1.494977.3.579.2.12 59 1975 Unknown [id number] 2.16.840.1.626019.3.579.2.12 59 1975 Unknown [id number] 2.16.840.1.844842.3.579.2.12 59 1975 Unknown [id number] 2.16.840.1.749904.3.579.2.12 59 1975 Unknown [id number] 2.16.840.1.273522.3.579.2.12 59 1975 Unknown [id number] 2.16.840.1.525409.3.579.2.12 59 1975 Unknown [id number] 2.16.840.1.400355.3.579.2.12 59 1975 Unknown [id number] 2.16.840.1.042271.3.579.2.12 59 1975 Unknown [id number] 2.16.840.1.668513.3.579.2.12 59 1975 Unknown [id number] 2.16.840.1.395871.3.579.2.12 59 1975 Unknown [id number] 2.16.840.1.356675.3.579.2.12 1975 Unknown [id number] 2.16.840.1.032159.3.579.2.12 59 1975 Unknown [id number] 2.16.840.1.927329.3.579.2.12 59 1975 Unknown [id number] 2.16.840.1.506397.3.579.2.12 59 1975 Unknown [id number] 2.16.840.1.075893.3.579.2.12 1975 Unknown [id number] 2.16.840.1.622165.3.579.2.12 59 1975 Unknown [id number] 2.16.840.1.772800.3.579.2.12 59 1975 Unknown [id number] 2.16.840.1.216096.3.579.2.12 59 1975 Unknown [id number] 2.16.840.1.033825.3.579.2.12 59 1975 Unknown [id number] 2.16.840.1.918461.3.579.2.12 59 1975 Unknown [id number] 2.16.840.1.915981.3.579.2.12 59 1975 Unknown [id number] 2.16.840.1.802454.3.579.2.12 59 1975 Unknown [id number] 2.16.840.1.727242.3.579.2.12 59 1975 Unknown [id number] 2.16.840.1.638915.3.579.2.12 59 1959 Unknown [id number] 1.2.840.300031.1.13.239.2.7. 3.011973.315 1959 Unknown [id number] 3 1959 Unknown [id number] Medicaid [place] Advantage [id number] 501 [id number] Unknown [id number] 2.16.840.1.017894.3.579.2.53 1 Unknown [id number] 2.16.840.1.209211.3.579.2.53 1 Unknown [id number] 2.16.840.1.011139.3.579.2.53 1 Unknown [id number] 2.16.840.1.334729.3.579.2.53 1 Unknown [id number] 2.16.840.1.831407.3.579.2.53 1 Unknown [id number] 2.16.840.1.544713.3.579.2.53 1 Social History Date Type Detail Facility Start: 02-16-2022 End: 09-06-2024 Occasional alcohol use Occasional alcohol use [facility] Comment on above: 2 bottles of pop alonso ly.; Quit 2020; Start: 11-30-2021 End: 08-24-2023 Tobacco smoking status NHIS Ex-smoker [employer] Phone: Start: 01-21-2016 End: 01-20-2021 History of tobacco use Cigarette Smoker [employer] Phone: Start: 11-30-2021 End: 09-15-2023 Tobacco use and exposure Smokeless tobacco non-user [employer] Phone: Start: 12-22-2021 End: 02-13-2025 Alcohol intake Lifetime non-drinker (finding) [employer] Phone: Start: 11-30-2021 Tobacco Comment occasional smo ker for 2 years, she quit over a year now [employer] Phone: Start: 1975 Sex Assigned At Not on file [facility] [employer] Phone: Start: 01-05-2022 End: 12-13-2022 Tobacco Comment occasional smoker for 2 years, she quit in 2020 [employer] Phone: Start: 12-26-2021 End: 01-05-2022 Exposure to SARS-CoV-2 (event) Not sure [employer] Phone: Tobacco smoking status AZIS Tobacco smoking consumption unknown [facility] Start: 07-20-2023 End: 09-06-2024 Sex Assigned At [facility] Start: 02-16-2022 End: 10-19-2022 Alcohol intake Ex-drinker (finding) [facility] Start: 01-21-2016 End: 01-20-2021 History of tobacco use Current smoker [facility] Start: 1975 Sex Assigned At Female F [facility] Start: 10-18-2022 History SDOH [employer] Phone 4 [facility] Start: 10-18-2022 History SDOH Social Connections Get Together 2 [facility] Start: 10-18-2022 History 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 [facility] Start: 10-18-2022 History SDOH Social [...] Not very hard [facility] Start: 12-25-2021 End: 10-23-2024 Sex Female (finding) [facility] How often to [...] Frx 24 Cm Firm [employer] - [id number] Start: 01-05-2022 Plate Bone 4mml Holex11 Ea1 55-38725 - [id number] Start: 07-14-2022 Screw 2.0 X 10mm Self-Tapping Pc1 50 - [id number] Start: 07-14-2022 Pin Cross 2.0 X 5mm Pc1 50 - [id number] Start: 07-14-2022 Beata 8mm Screw [id number] Start: 07-14-2022 Plate 11 Hole 4m m Rt Pc1 55-86207 - [id number] Start: 07-14-2022 Plate 6hole 12mm Bar Curved Pc1 55-01693 - [id number] Start: 07-14-2022 Scr Bn 1.7mm 4mm St Ax Stab Ea1 [id number] - [id number] Start: 07-14-2022 Scr Bn 1.9mm 5mm Crnmxf Er Ax Ea1 93-24040 - [id number] Start: 07-14-2022 Goals Date Patient Goal Desired Activity /State Functional Status Date Assessment Result Facility 10-14-2021 PHQ-9 [id number] Moder ately Severe (15-19) -[facility] [id number] DO Work Phone: Clinical Notes 11-09-2021 to 02-19-2025 Telephone Encounter - Tatianna Neal, NAVI - 02/19/2025 4:20 PM EDTTelephone Encounter - NAVI Barnett - 02/19/2025 4:20 PM EDTTelephone Encounter - Sarah Posadas - 02/19/2025 2:43 PM EDT Note Date & Type Note Facility 02-19-2025 Telephone encounter Note Spoke with patient, she is fine with going to [facility] for MRI. I did speak to a tech at [facility], they are able to do it with inspire device. Might have some artifact from it. I called [facility] and asked them to send over auth information to [facility]. Patient also said she is starting to feel some pain again in her shoulder, had injection about a month ago. Has continued off work. Patient was thankful for call, will expect a call from [facility] to schedule. [facility] Work Phone: 02-19-2025 Miscellaneous Notes Spoke with patient, she is fine with going to [facility] for MRI. I did speak to a tech at [facility], they are able to do it with inspire device. Might have some artifact from it. I called [facility] and asked them to send over auth information to [facility]. Patient also said she is starting to feel some pain again in her shoulder, had injection about a month ago. Has continued off work. Patient was thankful for call, will expect a call from [facility] to schedule. Mary that she wanted to know about plates in her jaw, no one mentioned this when they called about the Inspire please advise Per environmental field technician at [facility], they are able to scan with an inspire device but would be at their outpatient facility. Called and left for patient. Let see if the Inspire device can get MRI somewhere else- Possible [facility]. If pt agreeable.. ( let me know if she has questions about her injection- I saw phone tag between Paul and Her when I was out of office. - thanks [facility] called and said that they were unable to do the MRI due to the Aspire, unable to do it there, we can order a CAT scan or do the MRI somewhere else Please advise you can give them call at the [phone] ext [phone] or fax next order to [phone] documented in this encounter [facility] 02-19-2025 Telephone encounter Note Mary that she wanted to know about plates in her jaw, no one mentioned this when they called about the Inspire please advise [facility] 02-19-2025 Telephone encounter Note Per environmental field technician at [facility], they are able to scan with an inspire device but would be at their outpatient facility. Called and left for patient. [facility] 02-19-2025 Telephone encounter Note Let see if the Inspire device can get MRI somewhere else- Possible [facility]. If pt agreeable.. ( let me know if she has questions about her injection- I saw phone tag between Paul and Her when I was out of office. - thanks T [facility] Work Phone: 02-19-2025 Telephone encounter Note [facility] called and said that they were unable to do the MRI due to the Aspire, unable to do it there, we can order a CAT scan or do the MRI somewhere else Please advise you can give them call at the [phone] ext [phone] or fax next order to [phone] T [facility] 02-14-2025 Telephone encounter Note Patient tried to call back said that she is available now. [facility] 02-14-2025 Miscellaneous Notes Patient tried to call back said that she is available now. Patient called back returning call. Mary wanted to speak with someone provider or nurse about the injection she got January 22, please advise [phone] documented in this encounter [facility] 02-14-2025 Telephone encounter Note Patient called back returning call. [facility] 02-14-2025 Telephone encounter Note Mary wanted to speak with someone provider or nurse about the injection she got January 22, please advise [phone] [facility] 02-13-2025 History of Present illness Narrative Images from the original note were not included. Isabelle Hewitt is a 49 y.o. female presents with chief complaint of chronic pain HPI: Here for recheck: shoulder: saw ortho, trying to get an MRI approved. Has had an injection, initially it help to reduce pain, now is worsening again Pain constant, achy shooting sometimes sharp, 5/10 Also wanted to bring up foamy saliva. Has been doing this for some time. No cough, no chest pain/dyspnea Has gotten new dentures and this was going on prior to that as well no dysphagia, no allergy sxs SUBJECTIVE: MEDICATIONS: Current Outpatient Medications Medication Instructions atenolol (TENORMIN) 100 mg, Oral, Daily atorvastatin (LIPITOR) 20 mg, Oral, Every evening dicyclomine (Bentyl) 10 MG capsule 1 capsule, 3 times daily Effexor XR 75 mg, Daily KlonoPIN 1 mg, 2 times daily PRN levothyroxine (SYNTHROID, LEVOXYL) 75 mcg, Oral, Daily before breakfast loperamide (IMODIUM) 2 mg, Every 6 hours PRN meloxicam (MOBIC) 15 mg, Daily multivitamin with minerals (Centrum) 9-200 mg-mcg tablet split tablet 1 tablet, Daily potassium chloride CR (K-Tab) 20 MEQ ER tablet 20 mEq, Daily traZODone (DESYREL) 50 mg, Nightly PRN trospium (Sanctura XR) 60 MG 24 hour capsule 1 capsule, Daily venlafaxine XR (Effexor XR) 150 MG 24 hr capsule 1 capsule, Daily VITAMIN D, CHOLECALCIFEROL, PO Take by mouth ALLERGIES: No Known Allergies REVIEW OF SYMPTOMS: [...] for difficulty urinating, dysuria and frequency. Musculoskeletal: Positive for arthralgias. Negative for back pain, joint swelling and myalgias. Skin: [...] risk for fall Condyloma Contraception management Depression Elevated prolactin level Elevated total protein Enlarged LA (left atrium) Enlarged LA (left atrium) Generalized anxiety disorder with panic attacks tiraled rexulti, latuda, and trazadone History of kidney stones History of migraine headaches HPV (human papilloma virus) infection Hyperlipidemia Hypertension 08/24/2023 Hypertriglyceridemia Hypertriglyceridemia Hypokalemia 08/24/2023 Kidney stones Menopause Menopause Migraine headache Mixed hyperlipidemia 08/18/2023 Nonscarring hair loss Seasonal allergies Shingles 04/17/2024 Sleep apnea Thyroiditis 10/13/2023 Tobacco user Past Surgical History: Procedure Laterality Date ADENOIDECTOMY SECTION, LOW TRANSVERSE CYSTOSCOPY 01/05/2022 Cystoscopy, Left Ureteroscopy, Laser Lithotripsy and left Ureteral Stent LITHOTRIPSY OTHER SURGICAL HISTORY Jaw Surgery ME LAP,CHOLECYSTECTOMY 01/2010 SALPINGECTOMY 11/12/2022 TONSILLECTOMY family history includes Bipolar disorder in her sister; Cancer in her father and mother; Heart attack in her father; Heart disease in her father; Mental illness in her mother; No Known Problems in her daughter, sister, and sister; Prostate cancer in her father; Vulvar cancer in her mother. OBJECTIVE: Visit Vitals BP 110/70 (BP Location: Left arm, Patient Position: Sitting, BP Cuff Size: Adult long) Pulse 67 Temp 97.8 F (Temporal) Resp 18 Wt 122 lb 3.2 oz SpO2 98% BMI 22.35 kg/m OB Status Having periods Smoking Status Former BSA 1.56 m Physical Exam Vitals and nursing note reviewed. Constitutional: General: She is not in acute distress. Appearance: Normal appearance. She is not ill-appearing. HENT: Head: Normocephalic and atraumatic. Right Ear: Tympanic membrane, ear canal and external ear normal. Left Ear: Tympanic membrane, ear canal and external ear normal. Nose: Nose normal. No congestion or rhinorrhea. Mouth/Throat: Mouth: Mucous membranes are moist. Pharynx: No oropharyngeal exudate or posterior oropharyngeal erythema. Comments: White foam like saliva spits out Eyes: Extraocular Movements: Extraocular movements intact. Conjunctiva/sclera: Conjunctivae normal. Neck: Vascular: No carotid bruit. Cardiovascular: Rate and Rhythm: Normal rate and regular rhythm. Pulses: Normal pulses. Heart sounds: Normal heart sounds. No murmur heard. Pulmonary: Effort: Pulmonary effort is normal. Breath sounds: Normal breath sounds. No wheezing or rhonchi. Abdominal: General: Bowel sounds are normal. There is no distension. Palpations: Abdomen is soft. There is no mass. Tenderness: There is no abdominal tenderness. Musculoskeletal: Cervical back: Normal range of motion and neck supple. Right lower leg: No edema. Left lower leg: No edema. Comments: Grimacing with ROM right shoulder, cuff strength 5/5 bilat, no biceps deformity +radial/ulnar pulse Pain with empty can and cross arm abduction Lymphadenopathy: Cervical: No cervical adenopathy. Skin: General: Skin is warm and dry. Capillary Refill: Capillary refill takes 2 to 3 seconds. Findings: No rash. Neurological: General: No focal deficit present. Mental Status: She is alert and oriented to person, place, and time. Psychiatric: Mood and Affect: Mood normal. Behavior: Behavior normal. Thought Content: Thought content normal. Judgment: Judgment normal. ASSESSMENT AND PLAN: Follow up in about 4 weeks (around 03/13/2025) for Recheck. Problem List Items Addressed This Visit Hypertension Please check blood pressure daily and record DASH diet Limit caffeine Take medication as directed Contact office if chest pain, pressure, dizziness, shortness of breath, swelling legs Recommend slow position changes Current meds: atenolol Chronic right shoulder pain - Primary Has failed conservative treatment: over 6 weeks PT, NSAIDS, referred to ortho Has been off work since 11/13 Discussed with pt about returning to work, she does not feel she can do her job at [employer] on [employer] Off until 03/20/25 Waiting on MRI d/t implants in body still finding information Associated Problem(s): Chronic right shoulder pain Has failed conservative treatment: over 6 weeks PT, NSAIDS, referred to ortho Has been off work since 11/13 Discussed with pt about returning to work, she does not feel she can do her job at [employer] on [employer] Off until 03/20/25 Waiting on MRI d/t implants in body still finding information Associated Problem(s): Hypertension Please check blood pressure daily and record DASH diet Limit caffeine Take medication as directed Contact office if chest pain, pressure, dizziness, shortness of breath, swelling legs Recommend slow position changes Current meds: atenolol documented in this encounter [facility] 02-13-2025 Instructions Larry Kirby NP - 02/13/2025 1:40 PM EDT Off work till end february, waiting on MRI documented in this encounter [facility] 01-23-2025 Telephone encounter Note Placed referral and faxed to [facility]. [facility] 01-23-2025 Miscellaneous Notes Placed referral and faxed to [facility]. Voicemail from [facility] ----Ma, this is Luis Morrison from the [facility], the MRI department. I am calling on the Inspire device that you guys called about yesterday today. I got a chance this morning to look it up and research it. They do have the implant that is conditional. So it means that there is certain scan parameters we have to take And it depends on what we are scanning. So if you want to just send that order to the centralized scheduling department and then we will get all the information and get that ready to go from there documented in this encounter [facility] 01-23-2025 Telephone encounter Note Voicemail from [facility] ----Ma, this is Luis Morrison from the [facility], the MRI department. I am calling on the Inspire device that you guys called about yesterday today. I got a chance this morning to look it up and research it. They do have the implant that is conditional. So it means that there is certain scan parameters we have to take And it depends on what we are scanning. So if you want to just send that order to the centralized scheduling department and then we will get all the information and get that ready to go from there [facility] 01-22-2025 History of Present illness Narrative Associated Order(s): L Inj/Asp: R subacromial bursa Post-Procedure Diagnose(s): Impingement of right shoulder Images from the original note were not included. Orthopedic Office note: NAME: Isabelle Hewitt : 1975 (NEW PT) LARRY KIRBY REFERRAL. RT SHOULDER PAIN SINCE 10/2024, NKI. WOKE UP WITH [facility] [employer] AND NUMB- TX BY PCP WITH XR AND PHYSICAL THERAPY. XRAY [facility] 11/09/24 (PUSHED TO CHANGE PACS) PHYSICAL THERAPY @ [facility] STATES SHE HAS NOT WORKED AT [employer] SINCE OCTOBER. CONTINUES PHYSICAL THERAPY. PAIN POSTERIOR, LATERAL AND DOWN POSTERIOR AND ANTERIOR UPPER ARM. WILL GET SHOOTING PAIN. +MOBIC PRN. +HEAT, ICE, VOLTAREN PRN. STIFFNESS AND SORENESS THROUGHOUT ARM. +CRACKING, POPPING. INTERMITTENT IN FOREARM AND INTO HAND. FEELS A PULL ANTERIOR AND POSTERIOR UPPER ARM. SOMETIMES WAKES AT HS. RT HANDED. Shoulder Musculoskeletal Exam Inspection Right Right shoulder inspection is normal. Ecchymosis: none Peripheral edema: none Atrophy: none Masses: none Palpation Right Crepitus: no crepitus Increased warmth: none Tenderness: present Anterior shoulder: mild AC joint: mild Lateral arm: mild Range of Motion Right Right shoulder range of motion is normal. Active ROM: pain. Passive ROM: pain. Active forward elevation: 90. Passive forward elevation: 170. Shoulder active abduction: 90 (+ pain passing 90 degrees). Passive abduction: 180. Active external rotation at side: 90. Passive external rotation at side: 90. Internal rotation: L2. Strength Right External rotation: 5/5. Internal rotation: 5/5. Abduction: 4+/5. Abduction is affected by pain. Biceps: 5/5. Triceps: 5/5. Neurovascular Right Radial pulse: normal and 2+ Capillary refill: <3 sec Axillary nerve sensory distribution: normal Scapula Right Right shoulder scapula is normal. Position: normal Winging: none Special Tests Right Rotator Cuff Signs Neer's test: positive Pizarro test: positive Painful arc test: positive Biceps/shamika Signs Clicking/popping: positive Speed's test: negative General Constitutional: appears stated age Neurological: alert and oriented x3 Orders Placed This Encounter Procedures L Inj/Asp: R subacromial bursa This order was created via procedure documentation L Inj/Asp: R subacromial bursa on 01/22/2025 2:36 PM Indications: pain Details: 21 G needle, posterior approach Medications: 40 mg methylPREDNISolone acetate 40 MG/ML Outcome: tolerated well, no immediate complications Utilizing aseptic technique with universal precautions . Pt given injection Right Shoulder SA space (Code 40799 RT) Procedure, treatment alternatives, risks and benefits explained, specific risks discussed. Consent was given by the patient. Results - Imaging: - X-rays performed at [facility] show degenerative changes at rotator cuff footprint Xray [facility]:Exam Date: 11/09/2024 14:43 Report Date: 11/09/2024 14:44 At the request of: LARRY KIRBY NP Procedure: XR shoulder RT min 2V RIGHT SHOULDER - - 3 views CLINICAL HISTORY: Acute Pain Right Shoulder COMPARISON: Mild degenerative changes of the AC and glenohumeral joints without acute bony process. FINDINGS: Mild degenerative changes of the right shoulder without acute bony process. XR/XR shoulder RT min 2V IMPRESSION: No acute bony process. Reviewed 12 PT sessions with Therapy Last was 01/21/25 ICD-10-CM 1. Acute pain of right shoulder M25.511 2. Chronic right shoulder pain M25.511 Ambulatory referral to Orthopaedic Surgery G89.29 3. Impingement of right shoulder M25.811 L Inj/Asp: R subacromial bursa 4. Internal derangement of right shoulder M24.811 F/U Dr. Valentino s/p MRI and SA injection to discuss need for possible: R/o cuff tear. Surgical and non surgical tx options discussed with conservative measures reviewed. Recommend ICE/ ELEVATION, continued activity modification in interim. Pt would consider surgical intervention to possibly improve symptoms. Assessment & Plan Right shoulder pain X-rays performed at [facility] show degenerative changes at the rotator cuff footprint. Persistent symptoms since October 2024, despite physical therapy and activity modifications, raise concerns for a rotator cuff tear. Pain is exacerbated by stress. Given her history of long-term refractory work with overhead repetition, further evaluation is warranted. Diagnostic plan: An MRI has been recommended for further evaluation. Efforts will be made to get her MRI approved at [facility], pending confirmation of MRI compatibility due to her implant. Treatment plan: A subacromial injection was administered today to alleviate pain and reduce inflammation. Follow-up: She will follow up with the attending physician pending the MRI study. PROCEDURE Procedure Performed Subacromial injection for right shoulder pain. Questions answered in laymen terms at the bedside. The diagnosis, home exercise plan and any ongoing restrictions/ recommendations reviewed. If unable to be reached in office, I recommend evaluation at nearest Emergency Room if any symptoms worsened or new symptoms develop for requiring urgent evaluation. Visit was preformed using [employer] speech recognition. documented in this encounter [facility] 01-17-2025 History of Present illness Narrative Images from the original note were not included. Physical Therapy Treatment Visit Patient Name: Mary Hewitt Today's Date: 01/17/2025 Encounter Diagnoses Name Primary? Acute pain of right shoulder Yes Visit number: 11 Timed Code Treatment: 30 minutes Total Treatment Time: 40 minutes Time In: 1:00 PM Time Out: 1:46 PM History: Pt states right shoulder has been hurting for a couple weeks. 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 Pain had been gradually worsening. Pt has to miss work due to pain. Taking Mobic which is helping more than OTC NSAID. Precautions: [place] Subjective: Pt states she was a little sore following last session but not too bad. States will see ortho on January 22. Pain: 3/10 in right shoulder with specific positions. Objective: PT Evaluation (11/26/2024) RIGHT SHOULDER AROM: 92 degrees flexion, 78 degrees abduction, 23 degrees ER, IR to L3 region PROM: 80 degrees flexion, 75 degrees abduction, 78 degrees ER; frequent cueing to relax during PROM Strength: ER 4/5, IR 4+/5, flexion and abduction 3-/5 due to pain with MMT in neutral Palpation: moderate tenderness right biceps tendon and RC insertions; min to moderate tenderness right AC joint Special Test: Pain with Neer's at 58 degrees elevation; pain with empty can testing Treatment: Manual Therapy: () delivered manual ther to R UE shoulder , PROM and gentle mobs in supine to right shoulder to decrease pain and improve mobility Therapeutic Exercise: (30) Exercises per grid. Progressions made this date to increase functional strength and ROM of right shoulder. Therapeutic Activity: Exercises to improve dynamic activities, functional tasks, functional mobility to return to prior activity level as needed. Neuromuscular re-education: Balance Training, Muscle Facilitation, Dynamic Stability, Core Stabilization, and Blood Flow Restriction Training (BFRT) as needed. Modalities: (10 minutes) Post session CP to right shoulder in supine following session to address pain Assessment: Pt has completed 11 PT sessions for right shoulder pain. Pt demo's full AROM right shoulder. Strength right middle trap 3+/5, lower trap 3-/5. Will continue to progress as pt tolerates. Outcome Measure: Upper Extremity Functional Index (UEFI): 47/80 Rehab Diagnosis: right shoulder pain and weakness; decrease strength and mobility Short Term Goal: To be met in 2 weeks Goal 1: Pt to be instructed in home exercise program. - met Associate Scientist Goals: To be met in 10 weeks Goal 1: Pt to report independence and compliance with home program. - met and progressing Goal 2: Pt to achieve 140 degrees of right shoulder flexion to assist with overhead reaching. - met Goal 3: Pt to achieve 120 degrees of right shoulder abduction to assist with grooming hair. - not met Goal 4: Pt to achieve 4+ to 5/5 strength right shoulder in all planes to assist with functional tasks and lifting. - not met Goal 5: Pt to score no less than 65/80 on UEFI indicating improved QOL. - not met Pt will benefit from skilled PT for 2-3x/week from 11/26/2024 to 02/04/2025 to address the above impairments. I hereby deem this POC medically necessary. Please sign below. Date: documented in this encounter [facility] 01-15-2025 History of Present illness Narrative Physical Therapy Treatment Visit Patient Name: Mary Hewitt Today's Date: 01/15/2025 Encounter Diagnoses Name Primary? Acute pain of right shoulder Yes Visit number: 10 Timed Code Treatment: 29 minutes Total Treatment Time: 39 minutes Time In: 2:00 PM Time Out: 2:46 PM History: Pt states right shoulder has been hurting for a couple weeks. 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 Pain had been gradually worsening. Pt has to miss work due to pain. Taking Mobic which is helping more than OTC NSAID. Precautions: [place] Subjective: Pt states right shoulder not doing too bad today. Still doing home program. Pain: 3/10 in right shoulder with specific positions. Objective: PT Evaluation (11/26/2024) RIGHT SHOULDER AROM: 92 degrees flexion, 78 degrees abduction, 23 degrees ER, IR to L3 region PROM: 80 degrees flexion, 75 degrees abduction, 78 degrees ER; frequent cueing to relax during PROM Strength: ER 4/5, IR 4+/5, flexion and abduction 3-/5 due to pain with MMT in neutral Palpation: moderate tenderness right biceps tendon and RC insertions; min to moderate tenderness right AC joint Special Test: Pain with Neer's at 58 degrees elevation; pain with empty can testing Treatment: Manual Therapy: () delivered manual ther to R UE shoulder , PROM and gentle mobs in supine to right shoulder to decrease pain and improve mobility Therapeutic Exercise: (29) Exercises per grid. Progressions made this date to increase functional strength and ROM of right shoulder. Therapeutic Activity: Exercises to improve dynamic activities, functional tasks, functional mobility to return to prior activity level as needed. Neuromuscular re-education: Balance Training, Muscle Facilitation, Dynamic Stability, Core Stabilization, and Blood Flow Restriction Training (BFRT) as needed. Modalities: (10 minutes) Post session CP to right shoulder in supine following session to address pain Assessment: Pt has completed 10 PT sessions for right shoulder pain. Progressed exercises this date with good pina. Will continue strengthening as pt tolerates. Outcome Measure: Upper Extremity Functional Index (UEFI): 47/80 Rehab Diagnosis: right shoulder pain and weakness; decrease strength and mobility Short Term Goal: To be met in 2 weeks Goal 1: Pt to be instructed in home exercise program. - met Half-Way Goals: To be met in 10 weeks Goal 1: Pt to report independence and compliance with home program. - met and progressing Goal 2: Pt to achieve 140 degrees of right shoulder flexion to assist with overhead reaching. - met Goal 3: Pt to achieve 120 degrees of right shoulder abduction to assist with grooming hair. - not met Goal 4: Pt to achieve 4+ to 5/5 strength right shoulder in all planes to assist with functional tasks and lifting. - not met Goal 5: Pt to score no less than 65/80 on UEFI indicating improved QOL. - not met Pt will benefit from skilled PT for 2-3x/week from 11/26/2024 to 02/04/2025 to address the above impairments. I hereby deem this POC medically necessary. Please sign below. Date: documented in this encounter [facility] 01-08-2025 History of Present illness Narrative Images from the original note were not included. Physical Therapy Treatment Visit / Progress Note Patient Name: Mary Hewitt Today's Date: 01/08/2025 Encounter Diagnoses Name Primary? Acute pain of right shoulder Yes Visit number: 9 Timed Code Treatment: 24 minutes Total Treatment Time: 38 minutes Time In: 9:00 AM Time Out: 9:40 AM History: Pt states right shoulder has been hurting for a couple weeks. 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 Pain had been gradually worsening. Pt has to miss work due to pain. Taking Mobic which is helping more than OTC NSAID. Precautions: [place] Subjective: Pt states she was seen by primary care and now being sent to ortho. Pt states therapy has helped but she does continue with pain ranging from 3-5/10 in right shoulder with specific movement. Will contact therapy after being seen by ortho. Pain: 3/10 in right shoulder with specific positions. Objective: PT Evaluation (11/26/2024) RIGHT SHOULDER AROM: 92 degrees flexion, 78 degrees abduction, 23 degrees ER, IR to L3 region PROM: 80 degrees flexion, 75 degrees abduction, 78 degrees ER; frequent cueing to relax during PROM Strength: ER 4/5, IR 4+/5, flexion and abduction 3-/5 due to pain with MMT in neutral Palpation: moderate tenderness right biceps tendon and RC insertions; min to moderate tenderness right AC joint Special Test: Pain with Neer's at 58 degrees elevation; pain with empty can testing Treatment: Manual Therapy: () delivered manual ther to R UE shoulder , PROM and gentle mobs in supine to right shoulder to decrease pain and improve mobility Therapeutic Exercise: (24) Exercises per grid. Review exercises for home program and discussed importance of proper form. Goals re-assessed for progress not. Therapeutic Activity: Exercises to improve dynamic activities, functional tasks, functional mobility to return to prior activity level as needed. Neuromuscular re-education: Balance Training, Muscle Facilitation, Dynamic Stability, Core Stabilization, and Blood Flow Restriction Training (BFRT) as needed. Modalities: (10 minutes) Post session CP to right shoulder in supine following session to address pain Assessment: Pt has completed 9 PT sessions for right shoulder pain. AROM of right shoulder this date: 151 degrees flexion, 114 degrees abduction with pain at end range. Pain with Neer Testing at 80 degrees elevation, pain with Pizarro Manfred testing. Speeds testing negative. Mild discomfort with empty can testing. No significant laxity with posterior and inferior glides. Strength right shoulder abduction 4/5 due to pain, supraspinatus 4-/5 due to pain (MMT performed in neutral). No significant tenderness right biceps tendon. Upper Extremity Functional Index (UEFI): 60/80. Outcome Measure: Upper Extremity Functional Index (UEFI): 47/80 Rehab Diagnosis: right shoulder pain and weakness; decrease strength and mobility Short Term Goal: To be met in 2 weeks Goal 1: Pt to be instructed in home exercise program. - met Associate Scientist Goals: To be met in 10 weeks Goal 1: Pt to report independence and compliance with home program. - met and progressing Goal 2: Pt to achieve 140 degrees of right shoulder flexion to assist with overhead reaching. - met Goal 3: Pt to achieve 120 degrees of right shoulder abduction to assist with grooming hair. - not met Goal 4: Pt to achieve 4+ to 5/5 strength right shoulder in all planes to assist with functional tasks and lifting. - not met Goal 5: Pt to score no less than 65/80 on UEFI indicating improved QOL. - not met Pt will benefit from skilled PT for 2-3x/week from 11/26/2024 to 02/04/2025 to address the above impairments. I hereby deem this POC medically necessary. Please sign below. Date: documented in this encounter 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 Isabelle Hewitt is a 49 y.o. female presents with chief complaint of Shoulder Pain HPI: Shoulder Pain The pain is present in the right shoulder. This is a chronic problem. The current episode started more than 1 month ago. There has been no history of extremity trauma. The problem occurs daily. The problem has been gradually improving. The quality of the pain is described as aching and sharp. Associated symptoms include a limited range of motion. Pertinent negatives include no fever or inability to bear weight. The symptoms are aggravated by activity. She has tried NSAIDS (PT) for the symptoms. The treatment provided moderate (50%) relief. SUBJECTIVE: MEDICATIONS: Current Outpatient Medications Medication Instructions amitriptyline (ELAVIL) 10 mg, Nightly atenolol (TENORMIN) 100 mg, Oral, Daily atorvastatin (LIPITOR) 20 mg, Oral, Every evening dicyclomine (Bentyl) 10 MG capsule 1 capsule, 3 times daily Effexor XR 75 mg, Daily KlonoPIN 1 mg, 2 times daily PRN levothyroxine (SYNTHROID, LEVOXYL) 75 mcg, Oral, Daily before breakfast loperamide (IMODIUM) 2 mg, Every 6 hours PRN multivitamin with minerals (Centrum) 9-200 mg-mcg tablet split tablet 1 tablet, Daily trospium (Sanctura XR) 60 MG 24 hour capsule 1 capsule, Daily venlafaxine XR (Effexor XR) 150 MG 24 hr capsule 1 capsule, Daily VITAMIN D, CHOLECALCIFEROL, PO Take by mouth. ALLERGIES: No Known Allergies REVIEW OF SYMPTOMS: [...] for difficulty urinating, dysuria and frequency. Musculoskeletal: Positive for arthralgias. Negative for back pain, joint swelling and myalgias. Skin: Negative for rash and wound. Neurological: Negative for dizziness, tremors, seizures, syncope and headaches. Psychiatric/Behavioral: Negative for behavioral problems, self-injury and suicidal ideas. The patient is not nervous/anxious. Hematological: Does not bruise/bleed easily. Endocrine: [...] Migraine headache (CMS/HCC) Mixed hyperlipidemia (CMS/HCC) 08/18/2023 Nonscarring hair loss Seasonal allergies Shingles 04/17/2024 Sleep apnea Thyroiditis 10/13/2023 Tobacco user Past Surgical History: Procedure Laterality Date ADENOIDECTOMY SECTION, LOW TRANSVERSE CYSTOSCOPY 01/05/2022 Cystoscopy, Left Ureteroscopy, Laser Lithotripsy and left Ureteral Stent LITHOTRIPSY OTHER SURGICAL HISTORY Jaw Surgery ME LAP,CHOLECYSTECTOMY 01/2010 SALPINGECTOMY 11/12/2022 TONSILLECTOMY family history includes Bipolar disorder in her sister; Cancer in her father and mother; Heart attack in her father; Heart disease in her father; Mental illness in her mother; No Known Problems in her daughter, sister, and sister; Prostate cancer in her father; Vulvar cancer in her mother. OBJECTIVE: Visit Vitals BP 124/82 (BP Location: Left arm, Patient Position: Sitting, BP Cuff Size: Adult long) Pulse 79 Temp 98.5 F (Temporal) Resp 18 Wt 130 lb 6.4 oz SpO2 95% BMI 23.85 kg/m OB Status Having periods Smoking Status Former BSA 1.61 m Physical Exam Vitals and nursing note [...] normal. Breath sounds: Normal breath sounds. Abdominal: General: Bowel sounds are normal. There is no distension. Palpations: Abdomen is soft. There is no mass. Tenderness: There is no abdominal tenderness. Musculoskeletal: Cervical back: Normal range of motion and neck supple. Right lower leg: No edema. Left lower leg: No edema. Comments: Right shoulder: strength: 4.5/5 right Generalized discomfort with ROM Neg empty can test Skin: General: Skin is warm and dry. [...] file. 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 01-07-2025 Instructions Larry Kirby NP - 01/07/2025 4:00 PM EDT Off work for another 4 weeks Refer to Ortho, if they do not call by end of week call office documented in this encounter [facility] 01-02-2025 History of Present illness Narrative Images from the original note were not included. Physical Therapy Treatment Visit Patient Name: Mary Hewitt Today's Date: 01/02/2025 Encounter Diagnoses Name Primary? Acute pain of right shoulder Yes Visit number: 7 Timed Code Treatment: 30 minutes Total Treatment Time: 40 minutes Time In: 3:29 PM Time Out: 4:16 PM History: Pt states right shoulder has been hurting for a couple weeks. 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 Pain had been gradually worsening. Pt has to miss work due to pain. Taking Mobic which is helping more than OTC NSAID. Precautions: [place] Subjective: States her follow up with was canceled. Was not sure if she was suppose to continue PT so missed last week. Next appointment with office was rescheduled to 01/07. RTW is now expected to be 01/08. Feels like shoulder has tightened up a bit since missing last week. Pain: 4/10 in right shoulder with specific positions. Objective: PT Evaluation (11/26/2024) RIGHT SHOULDER AROM: 92 degrees flexion, 78 degrees abduction, 23 degrees ER, IR to L3 region PROM: 80 degrees flexion, 75 degrees abduction, 78 degrees ER; frequent cueing to relax during PROM Strength: ER 4/5, IR 4+/5, flexion and abduction 3-/5 due to pain with MMT in neutral Palpation: moderate tenderness right biceps tendon and RC insertions; min to moderate tenderness right AC joint Special Test: Pain with Neer's at 58 degrees elevation; pain with empty can testing Treatment: Manual Therapy: (11 minutes) delivered manual ther to R UE shoulder , PROM and gentle mobs in supine to right shoulder to decrease pain and improve mobility Therapeutic Exercise: (19 minutes supervised) Guided pt through ther and flex ex per grid to improve R UE shoulder scapular postural muscle strength, functional mobility all within pt tolerance Therapeutic Activity: Exercises to improve dynamic activities, functional tasks, functional mobility to return to prior activity level as needed. Neuromuscular re-education: Balance Training, Muscle Facilitation, Dynamic Stability, Core Stabilization, and Blood Flow Restriction Training (BFRT) as needed. Modalities: (10 minutes ) Post session MHP to right shoulder in supine following session to address pain Assessment: Pt has completed 7 PT sessions for right shoulder pain. Pt able to achieve full PROM of right shoulder with pain at end ranges and empty end feels. AROM following manual therapy this date: 150 degrees abduction and 160 degrees flexion. Will continue to progress as pt tolerates. Outcome Measure: Upper Extremity Functional Index (UEFI): 47/80 Rehab Diagnosis: right shoulder pain and weakness; decrease strength and mobility Short Term Goal: To be met in 2 weeks Goal 1: Pt to be instructed in home exercise program. Half-Way Goals: To be met in 10 weeks Goal 1: Pt to report independence and compliance with home program. Goal 2: Pt to achieve 140 degrees of right shoulder flexion to assist with overhead reaching. Goal 3: Pt to achieve 120 degrees of right shoulder abduction to assist with grooming hair. Goal 4: Pt to achieve 4+ to 5/5 strength right shoulder in all planes to assist with functional tasks and lifting. Goal 5: Pt to score no less than 65/80 on UEFI indicating improved QOL. Pt will benefit from skilled PT for 2-3x/week from 11/26/2024 to 02/04/2025 to address the above impairments. I hereby deem this POC medically necessary. Please sign below. Date: documented in this encounter [facility] 12-25-2024 History of Present illness Narrative Reason for Appointment: Patient ID: Mary Hewitt is a 49 y.o. female who presents for Follow-up Patient presents today for Acute Visit. and Follow up appointment to discuss results. MEDICATIONS Current Outpatient Medications Medication Instructions amitriptyline (ELAVIL) 10 mg, Nightly atenolol (TENORMIN) 100 mg, Oral, Daily atorvastatin (LIPITOR) 20 mg, Oral, Every evening dicyclomine (Bentyl) 10 MG capsule 1 capsule, 3 times daily Effexor XR 75 mg, Daily KlonoPIN 1 mg, 2 times daily PRN levothyroxine (SYNTHROID, LEVOXYL) 75 mcg, Oral, Daily before breakfast loperamide (IMODIUM) 2 mg, Every 6 hours PRN multivitamin with minerals (Centrum) 9-200 mg-mcg tablet split tablet 1 tablet, Daily trospium (Sanctura XR) 60 MG 24 hour capsule 1 capsule, Daily venlafaxine XR (Effexor XR) 150 MG 24 hr capsule 1 capsule, Daily VITAMIN D, CHOLECALCIFEROL, PO Take by mouth. ALLERGIES No Known Allergies PROBLEMS Active Ambulatory Problems Diagnosis Date Noted Mixed hyperlipidemia ([facility]) 08/18/2023 Hypokalemia 08/24/2023 Hypertension ([facility]) 08/24/2023 Chronic diarrhea 08/24/2023 Anxiety state ([facility]) 10/13/2023 Bipolar II disorder ([facility]) 01/15/2022 Generalized anxiety disorder with panic attacks ([facility]) 01/15/2022 Depression with anxiety 10/13/2023 History of kidney stones 10/13/2023 DIONNE (obstructive sleep apnea) 01/15/2022 Thyroiditis 10/13/2023 Other specified hypothyroidism 10/19/2023 Abnormality of left breast on screening mammogram 12/07/2023 Microscopic colitis, unspecified ([facility]) 08/08/2023 Overactive bladder 01/25/2024 Bloating 01/25/2024 Overweight (BMI 25.0-29.9) 04/17/2024 Herpes zoster without complication 04/17/2024 Irritable bowel syndrome with diarrhea 06/19/2024 Generalized abdominal pain 09/25/2024 Subacute cough 09/25/2024 Weakness generalized 09/25/2024 Nausea 09/28/2024 UTI (urinary tract infection) 10/03/2024 Acute pain of right shoulder 11/07/2024 Resolved Ambulatory Problems Diagnosis Date Noted Alternating constipation and diarrhea 01/25/2024 Weight loss, unintentional 01/25/2024 Pre-operative clearance 03/26/2024 Shingles 04/17/2024 Acute URI 05/02/2024 Viral upper respiratory tract infection 09/25/2024 Past Medical History: Diagnosis Date Abnormal appearance of cervix Abnormal mammogram of both breasts Acute cystitis Allergies Amenorrhea Anxiety At low risk for fall Condyloma Contraception management Depression ([facility]) Elevated prolactin level Elevated total protein Enlarged LA (left atrium) Enlarged LA (left atrium) History of migraine headaches HPV (human papilloma virus) infection Hyperlipidemia ([facility]) Hypertriglyceridemia ([facility] Hypertriglyceridemia ([facility]) Kidney stones Menopause Menopause Migraine headache ([facility]) Nonscarring hair loss Seasonal allergies Sleep apnea Tobacco user HISTORY PAST MEDICAL HISTORY SOCIAL HISTORY Past Medical History: Diagnosis Date Abnormal appearance of cervix Abnormal mammogram of both breasts Acute cystitis Allergies Amenorrhea Anxiety At low risk for fall Condyloma Contraception management Depression ([facility]) Elevated prolactin level Elevated total protein Enlarged LA (left atrium) Enlarged LA (left atrium) Generalized anxiety disorder with panic attacks ([facility]) tiraled rexulti, latuda, and trazadone History of kidney stones History of migraine headaches HPV (human papilloma virus) infection Hyperlipidemia ([facility]) Hypertension ([facility]) 08/24/2023 Hypertriglyceridemia ([facility]) Hypertriglyceridemia ([facility]) Hypokalemia 08/24/2023 Kidney stones Menopause Menopause Migraine headache ([facility]) Mixed hyperlipidemia ([facility]) 08/18/2023 Nonscarring hair loss Seasonal allergies Shingles 04/17/2024 Sleep apnea Thyroiditis 10/13/2023 Tobacco user Social History Tobacco Use Smoking status: Former Types: Cigarettes Passive exposure: Never Smokeless tobacco: Not on file Vaping Use Vaping status: Never Used Substance Use Topics Alcohol use: Never Comment: Caffeine: > 4 cups/day Drug use: Never FAMILY HISTORY Family History Problem Relation Name Age of Onset Cancer Mother Mental illness Mother Other (Vulvar cancer) Mother Cancer Father Heart disease Father Prostate cancer Father Heart attack Father Bipolar disorder Sister No Known Problems Sister No Known Problems Sister No Known Problems Daughter SURGICAL HISTORY Past Surgical History: Procedure Laterality Date ADENOIDECTOMY SECTION, LOW TRANSVERSE CYSTOSCOPY 01/05/2022 Cystoscopy, Left Ureteroscopy, Laser Lithotripsy and left Ureteral Stent LITHOTRIPSY OTHER SURGICAL HISTORY Jaw Surgery ME LAP,CHOLECYSTECTOMY 01/2010 SALPINGECTOMY 11/12/2022 TONSILLECTOMY REVIEW OF SYSTEMS Review of Systems: Review of Systems OBJECTIVE Objective: Physical Exam Constitutional: Appearance: Normal appearance. She is well-developed. Genitourinary: Vulva normal. Cardiovascular: Rate and Rhythm: Normal rate and regular rhythm. Pulmonary: Effort: Pulmonary effort is normal. Breath sounds: Normal breath sounds. Abdominal: General: Bowel sounds are normal. There is no distension. Palpations: Abdomen is soft. Tenderness: There is no abdominal tenderness. There is no guarding or rebound. Musculoskeletal: General: No swelling. Normal range of motion. Right lower leg: No edema. Left lower leg: No edema. Neurological: Mental Status: She is alert and oriented to person, place, and time. Skin: General: Skin is warm and dry. Psychiatric: Mood and Affect: Mood normal. Behavior: Behavior normal. Vitals and nursing note reviewed. Exam conducted with a dip unit operator present. Vitals: Estimated body mass index is 24.53 kg/m as calculated from the following: Height as of 06/19/24: 5' 2 . Weight as of this encounter: 134 lb 1.9 oz. BP: 124/80 No LMP recorded. ASSESSMENT & PLAN ICD-10-CM 1. Labial cyst N90.7 2. Follow-up exam Z09 Pt was here 2 weeks ago with cyst on labia. Took flagyl and swelling and cyst went away. Pt voiced understanding. Documented by Candace Jaquez LPN on behalf of: Oswald Harrington DO documented in this encounter [facility] 12-11-2024 History of Present illness Narrative Reason for Appointment: Patient ID: Mary Hewitt is a 49 y.o. female who presents for Cyst (Pt present today for a right swollen labia/possible bartholin cyst. Patient complains of having swelling of the labia since 12/07/2024. Pt is in a lot of pain every time she wipes.) Patient presents today for Acute Visit. MEDICATIONS Current Outpatient Medications Medication Instructions amitriptyline (ELAVIL) 10 mg, Nightly atenolol (TENORMIN) 100 mg, Oral, Daily atorvastatin (LIPITOR) 20 mg, Oral, Every evening dicyclomine (Bentyl) 10 MG capsule 1 capsule, 3 times daily Effexor XR 75 mg, Daily KlonoPIN 1 mg, 2 times daily PRN levothyroxine (SYNTHROID, LEVOXYL) 75 mcg, Oral, Daily before breakfast loperamide (IMODIUM) 2 mg, Every 6 hours PRN meloxicam (MOBIC) 15 mg, Oral, Daily multivitamin with minerals (Centrum) 9-200 mg-mcg tablet split tablet 1 tablet, Daily potassium chloride CR (K-Tab) 20 MEQ ER tablet 20 mEq, Oral, Daily trospium (Sanctura XR) 60 MG 24 hour capsule 1 capsule, Daily venlafaxine XR (Effexor XR) 150 MG 24 hr capsule 1 capsule, Daily VITAMIN D, CHOLECALCIFEROL, PO Take by mouth. ALLERGIES No Known Allergies PROBLEMS Active Ambulatory Problems Diagnosis Date Noted Mixed hyperlipidemia ([facility]) 08/18/2023 Hypokalemia 08/24/2023 Hypertension ([facility]) 08/24/2023 Chronic diarrhea 08/24/2023 Anxiety state ([facility]) 10/13/2023 Bipolar II disorder ([facility]) 01/15/2022 Generalized anxiety disorder with panic attacks ([facility]) 01/15/2022 Depression with anxiety 10/13/2023 History of kidney stones 10/13/2023 DIONNE (obstructive sleep apnea) 01/15/2022 Thyroiditis 10/13/2023 Other specified hypothyroidism 10/19/2023 Abnormality of left breast on screening mammogram 12/07/2023 Microscopic colitis, unspecified ([facility]) 08/08/2023 Overactive bladder 01/25/2024 Bloating 01/25/2024 Overweight (BMI 25.0-29.9) 04/17/2024 Herpes zoster without complication 04/17/2024 Irritable bowel syndrome with diarrhea 06/19/2024 Generalized abdominal pain 09/25/2024 Subacute cough 09/25/2024 Weakness generalized 09/25/2024 Nausea 09/28/2024 UTI (urinary tract infection) 10/03/2024 Acute pain of right shoulder 11/07/2024 Resolved Ambulatory Problems Diagnosis Date Noted Alternating constipation and diarrhea 01/25/2024 Weight loss, unintentional 01/25/2024 Pre-operative clearance 03/26/2024 Shingles 04/17/2024 Acute URI 05/02/2024 Viral upper respiratory tract infection 09/25/2024 Past Medical History: Diagnosis Date Abnormal appearance of cervix Abnormal mammogram of both breasts Acute cystitis Allergies Amenorrhea Anxiety At low risk for fall Condyloma Contraception management Depression ([facility]) Elevated prolactin level Elevated total protein Enlarged LA (left atrium) Enlarged LA (left atrium) History of migraine headaches HPV (human papilloma virus) infection Hyperlipidemia ([facility]) Hypertriglyceridemia ([facility] Hypertriglyceridemia ([facility]) Kidney stones Menopause Menopause Migraine headache ([facility]) Nonscarring hair loss Seasonal allergies Sleep apnea Tobacco user HISTORY PAST MEDICAL HISTORY SOCIAL HISTORY Past Medical History: Diagnosis Date Abnormal appearance of cervix Abnormal mammogram of both breasts Acute cystitis Allergies Amenorrhea Anxiety At low risk for fall Condyloma Contraception management Depression ([facility]) Elevated prolactin level Elevated total protein Enlarged LA (left atrium) Enlarged LA (left atrium) Generalized anxiety disorder with panic attacks ([facility]) tiraled rexulti, latuda, and trazadone History of kidney stones History of migraine headaches HPV (human papilloma virus) infection Hyperlipidemia ([facility]) Hypertension ([facility]) 08/24/2023 Hypertriglyceridemia ([facility]) Hypertriglyceridemia ([facility]) Hypokalemia 08/24/2023 Kidney stones Menopause Menopause Migraine headache ([facility]) Mixed hyperlipidemia ([facility]) 08/18/2023 Nonscarring hair loss Seasonal allergies Shingles 04/17/2024 Sleep apnea Thyroiditis 10/13/2023 Tobacco user Social History Tobacco Use Smoking status: Former Types: Cigarettes Passive exposure: Never Smokeless tobacco: Not on file Vaping Use Vaping status: Never Used Substance Use Topics Alcohol use: Never Comment: Caffeine: > 4 cups/day Drug use: Never FAMILY HISTORY Family History Problem Relation Name Age of Onset Cancer Mother Mental illness Mother Other (Vulvar cancer) Mother Cancer Father Heart disease Father Prostate cancer Father Heart attack Father Bipolar disorder Sister No Known Problems Sister No Known Problems Sister No Known Problems Daughter SURGICAL HISTORY Past Surgical History: Procedure Laterality Date ADENOIDECTOMY SECTION, LOW TRANSVERSE CYSTOSCOPY 01/05/2022 Cystoscopy, Left Ureteroscopy, Laser Lithotripsy and left Ureteral Stent LITHOTRIPSY OTHER SURGICAL HISTORY Jaw Surgery ME LAP,CHOLECYSTECTOMY 01/2010 SALPINGECTOMY 11/12/2022 TONSILLECTOMY REVIEW OF SYSTEMS Review of Systems: Review of Systems Constitutional: Negative. HENT: Negative. Eyes: Negative. Respiratory: Negative. Cardiovascular: Negative. Gastrointestinal: Negative. Genitourinary: Negative. Musculoskeletal: Negative. Skin: Negative. Neurological: Negative. All other systems reviewed and are negative. Hematological: Negative. Endocrine: Negative. Allergic/Immunologic: Negative. OBJECTIVE Objective: Physical Exam Constitutional: Appearance: Normal appearance. She is well-developed. Genitourinary: Vulva normal. Cardiovascular: Rate and Rhythm: Normal rate and regular rhythm. Pulmonary: Effort: Pulmonary effort is normal. Breath sounds: Normal breath sounds. Abdominal: General: Bowel sounds are normal. There is no distension. Palpations: Abdomen is soft. Tenderness: There is no abdominal tenderness. There is no guarding or rebound. Musculoskeletal: General: No swelling. Normal range of motion. Right lower leg: No edema. Left lower leg: No edema. Neurological: Mental Status: She is alert and oriented to person, place, and time. Skin: General: Skin is warm and dry. Psychiatric: Mood and Affect: Mood normal. Behavior: Behavior normal. Vitals and nursing note reviewed. Exam conducted with a dip unit operator present. Vitals: Estimated body mass index is 24.69 kg/m as calculated from the following: Height as of 06/19/24: 5' 2 . Weight as of this encounter: 135 lb. BP: 120/72 No LMP recorded. ASSESSMENT & PLAN ICD-10-CM 1. Swelling of labia N94.89 POCT urinalysis dipstick manually resulted 2. Labial cyst N90.7 Pt presents with swollen labia on right side. Exam performed, sebaceous cyst noted on right labia. Given options of antibiotic, drain in office and surgery to remove. Rx for flagyl faxed to pharmacy. Pt to return in 2 weeks for follow up on cyst on labia. Documented by Candace Jaquez LPN on behalf of: Oswald Harrington DO documented in this encounter [facility] 12-10-2024 History of Present illness Narrative Images from the original note were not included. Physical Therapy Treatment Visit Patient Name: Mary Hewitt Today's Date: 12/10/2024 Encounter Diagnoses Name Primary? Acute pain of right shoulder Yes Visit number: 4 Timed Code Treatment: 28 minutes Total Treatment Time: 38 minutes Time In: 3:00 PM Time Out: 3:52 PM History: Pt states right shoulder has been hurting for a couple weeks. 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 Pain had been gradually worsening. Pt has to miss work due to pain. Taking Mobic which is helping more than OTC NSAID. Precautions: [place] Subjective: States right shoulder is gradually getting better. Will return to Dr on December 20 regarding possible return to work. Pain: /10 with activity Objective: PT Evaluation (11/26/2024) RIGHT SHOULDER AROM: 92 degrees flexion, 78 degrees abduction, 23 degrees ER, IR to L3 region PROM: 80 degrees flexion, 75 degrees abduction, 78 degrees ER; frequent cueing to relax during PROM Strength: ER 4/5, IR 4+/5, flexion and abduction 3-/5 due to pain with MMT in neutral Palpation: moderate tenderness right biceps tendon and RC insertions; min to moderate tenderness right AC joint Special Test: Pain with Neer's at 58 degrees elevation; pain with empty can testing Treatment: Manual Therapy: () delivered manual ther to R UE shoulder , PROM and gentle mobs to decrease pain and improve mobility Therapeutic Exercise: (28 minutes supervised) guided pt through ther and flex ex per grid to improve R UE shoulder scapular postural muscle strength, functional mobility all within pt tolerance Therapeutic Activity: Exercises to improve dynamic activities, functional tasks, functional mobility to return to prior activity level as needed. Neuromuscular re-education: Balance Training, Muscle Facilitation, Dynamic Stability, Core Stabilization, and Blood Flow Restriction Training (BFRT) as needed. Modalities: (10 minutes ) CP to right shoulder in supine following session to address pain Assessment: Pt has completed 4 PT sessions for right shoulder pain. AROM of right shoulder this date is 116 degrees flexion and 110 degrees abduction in standing. Pt continues with pain behaviors noted with all active movement, including biceps curls. Will continue to progress as pt tolerates. Outcome Measure: Upper Extremity Functional Index (UEFI): 47/80 Rehab Diagnosis: right shoulder pain and weakness; decrease strength and mobility Short Term Goal: To be met in 2 weeks Goal 1: Pt to be instructed in home exercise program. Associate Scientist Goals: To be met in 10 weeks Goal 1: Pt to report independence and compliance with home program. Goal 2: Pt to achieve 140 degrees of right shoulder flexion to assist with overhead reaching. Goal 3: Pt to achieve 120 degrees of right shoulder abduction to assist with grooming hair. Goal 4: Pt to achieve 4+ to 5/5 strength right shoulder in all planes to assist with functional tasks and lifting. Goal 5: Pt to score no less than 65/80 on UEFI indicating improved QOL. Pt will benefit from skilled PT for 2-3x/week from 11/26/2024 to 02/04/2025 to address the above impairments. I hereby deem this POC medically necessary. Please sign below. Date: documented in this encounter [facility] 12-03-2024 History of Present illness Narrative Images from the original note were not included. Physical Therapy Treatment Visit Patient Name: Mary Hewitt Today's Date: 12/03/2024 Encounter Diagnoses Name Primary? Acute pain of right shoulder Yes Visit number: 2 Timed Code Treatment Minutes: 29 minutes Total Treatment Time: 39 minutes Time In: 1600 Time Out: 1642 History: Pt states right shoulder has been hurting for a couple weeks. 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 Pain had been gradually worsening. Pt has to miss work due to pain. Taking Mobic which is helping more than OTC NSAID. Precautions: [place] Subjective: No complaints following first session. States wall slides are pretty difficulty at home; doing well with other stretches. Pain mostly in right upper arm. Pain: 7/10 Objective: PT Evaluation (11/26/2024) RIGHT SHOULDER AROM: 92 degrees flexion, 78 degrees abduction, 23 degrees ER, IR to L3 region PROM: 80 degrees flexion, 75 degrees abduction, 78 degrees ER; frequent cueing to relax during PROM Strength: ER 4/5, IR 4+/5, flexion and abduction 3-/5 due to pain with MMT in neutral Palpation: moderate tenderness right biceps tendon and RC insertions; min to moderate tenderness right AC joint Special Test: Pain with Neer's at 58 degrees elevation; pain with empty can testing Treatment: Education: HEP education with demonstration, Educated on Eval Findings and POC Manual Therapy: (9 minutes) Passive ROM, Joint mobilization, Soft Tissue Mobilization, Myofascial Release, Muscle Energy Technique, Neural Mobilization, Myofascial Cupping, Dry Needling, IASTM, and Scar mobilization as needed. PROM and gentle mobs to decrease pain and improve mobility. Therapeutic Exercise: (20 minutes) Strength, Endurance, Flexibility, ROM, HEP, Neural Mobilization, Power, and Core Stability as needed. Pt performed exercises per grid to increase ROM and functional mobility of right UE. Therapeutic Activity: Exercises to improve dynamic activities, functional tasks, functional mobility to return to prior activity level as needed. Neuromuscular re-education: Balance Training, Muscle Facilitation, Dynamic Stability, Core Stabilization, and Blood Flow Restriction Training (BFRT) as needed. Modalities: Heat, Ice, Electrical Stimulation, Ultrasound, Cervical Mechanical Traction, Lumbar Mechanical Traction, Iontophoresis, and Fluidotherapy as needed. CP to right shoulder in supine following session to address pain X 10 minutes Assessment: Pt has completed 2 PT sessions for right shoulder pain. Pt reports compliance with home program. Pt able to achieve 128 degrees flexion passively and 110 degrees abduction passively this date. Empty end feel noted at all end ranges of PROM. Will continue. Outcome Measure: Upper Extremity Functional Index (UEFI): 47/80 Rehab Diagnosis: right shoulder pain and weakness; decrease strength and mobility Short Term Goal: To be met in 2 weeks Goal 1: Pt to be instructed in home exercise program. Associate Scientist Goals: To be met in 10 weeks Goal 1: Pt to report independence and compliance with home program. Goal 2: Pt to achieve 140 degrees of right shoulder flexion to assist with overhead reaching. Goal 3: Pt to achieve 120 degrees of right shoulder abduction to assist with grooming hair. Goal 4: Pt to achieve 4+ to 5/5 strength right shoulder in all planes to assist with functional tasks and lifting. Goal 5: Pt to score no less than 65/80 on UEFI indicating improved QOL. Pt will benefit from skilled PT for 2-3x/week from 11/26/2024 to 02/04/2025 to address the above impairments. I hereby deem this POC medically necessary. Please sign below. Date: documented in this encounter [facility] 11-22-2024 History of Present illness Narrative Reason for Appointment: Patient ID: Mary Hewitt is a 49 y.o. female who presents for Well Women Visit Patient presents today for Annual Exam. MEDICATIONS Current Outpatient Medications Medication Instructions amitriptyline (ELAVIL) 10 mg, Nightly atenolol (TENORMIN) 100 mg, Oral, Daily atorvastatin (LIPITOR) 20 mg, Oral, Every evening dicyclomine (Bentyl) 10 MG capsule 1 capsule, 3 times daily Effexor XR 75 mg, Daily KlonoPIN 1 mg, 2 times daily PRN levothyroxine (SYNTHROID, LEVOXYL) 75 mcg, Oral, Daily before breakfast loperamide (IMODIUM) 2 mg, Every 6 hours PRN meloxicam (MOBIC) 15 mg, Oral, Daily multivitamin with minerals (Centrum) 9-200 mg-mcg tablet split tablet 1 tablet, Daily potassium chloride CR (K-Tab) 20 MEQ ER tablet 20 mEq, Oral, Daily trospium (Sanctura XR) 60 MG 24 hour capsule 1 capsule, Daily venlafaxine XR (Effexor XR) 150 MG 24 hr capsule 1 capsule, Daily VITAMIN D, CHOLECALCIFEROL, PO Take by mouth. ALLERGIES No Known Allergies PROBLEMS Active Ambulatory Problems Diagnosis Date Noted Mixed hyperlipidemia (CMS/[facility]) 08/18/2023 Hypokalemia 08/24/2023 Hypertension (CMS/HCC) 08/24/2023 Chronic diarrhea 08/24/2023 Anxiety state (CMS/HCC) 10/13/2023 Bipolar II disorder (CMS/HCC) 01/15/2022 Generalized anxiety disorder with panic attacks (CMS/HCC) 01/15/2022 Depression with anxiety 10/13/2023 History of kidney stones 10/13/2023 DIONNE (obstructive sleep apnea) 01/15/2022 Thyroiditis 10/13/2023 Other specified hypothyroidism 10/19/2023 Abnormality of left breast on screening mammogram 12/07/2023 Microscopic colitis, unspecified (CMS/HCC) 08/08/2023 Overactive bladder 01/25/2024 Bloating 01/25/2024 Overweight (BMI 25.0-29.9) 04/17/2024 Herpes zoster without complication 04/17/2024 Irritable bowel syndrome with diarrhea 06/19/2024 Generalized abdominal pain 09/25/2024 Subacute cough 09/25/2024 Weakness generalized 09/25/2024 Nausea 09/28/2024 UTI (urinary tract infection) 10/03/2024 Acute pain of right shoulder 11/07/2024 Resolved Ambulatory Problems Diagnosis Date Noted Alternating constipation and diarrhea 01/25/2024 Weight loss, unintentional 01/25/2024 Pre-operative clearance 03/26/2024 Shingles 04/17/2024 Acute URI 05/02/2024 Viral upper respiratory tract infection 09/25/2024 Past Medical History: Diagnosis Date Abnormal appearance of cervix Abnormal mammogram of both breasts Acute cystitis Allergies Amenorrhea Anxiety At low risk for fall Condyloma Contraception management Depression (CMS/HCC) Elevated prolactin level Elevated total protein Enlarged LA (left atrium) Enlarged LA (left atrium) History of migraine headaches HPV (human papilloma virus) infection Hyperlipidemia (CMS/HCC) Hypertriglyceridemia (CMS/HCC) Hypertriglyceridemia (CMS/HCC) Kidney stones Menopause Menopause Migraine headache (CMS/HCC) Nonscarring hair loss Seasonal allergies Sleep apnea Tobacco user HISTORY [...] Migraine headache (CMS/HCC) Mixed hyperlipidemia (CMS/HCC) 08/18/2023 Nonscarring hair loss Seasonal allergies Shingles 04/17/2024 Sleep apnea Thyroiditis 10/13/2023 Tobacco user Social History Tobacco Use Smoking status: Former Types: Cigarettes Passive exposure: Never Smokeless tobacco: Not on file Vaping Use Vaping status: Never Used Substance Use Topics Alcohol use: Never Comment: Caffeine: > 4 cups/day Drug use: Never FAMILY HISTORY Family History Problem Relation Name Age of Onset Cancer Mother Mental illness Mother Other (Vulvar cancer) Mother Cancer Father Heart disease Father Prostate cancer Father Heart attack Father Bipolar disorder Sister No Known Problems Sister No Known Problems Sister No Known Problems Daughter SURGICAL HISTORY Past Surgical History: Procedure Laterality Date ADENOIDECTOMY SECTION, LOW TRANSVERSE CYSTOSCOPY 01/05/2022 Cystoscopy, Left Ureteroscopy, Laser Lithotripsy and left Ureteral Stent LITHOTRIPSY OTHER SURGICAL HISTORY Jaw Surgery ME LAP,CHOLECYSTECTOMY 01/2010 SALPINGECTOMY 11/12/2022 TONSILLECTOMY REVIEW OF SYSTEMS Review of Systems: Review of Systems Constitutional: Negative. HENT: Negative. Eyes: Negative. Respiratory: Negative. Cardiovascular: Negative. Gastrointestinal: Negative. Genitourinary: Negative. Musculoskeletal: Negative. Skin: Negative. Neurological: Negative. All other systems reviewed and are negative. Hematological: Negative. Endocrine: Negative. Allergic/Immunologic: Negative. OBJECTIVE Objective: Physical Exam Constitutional: Appearance: Normal appearance. She is well-developed and normal weight. Genitourinary: Vulva normal. HENT: Head: Normocephalic. Cardiovascular: Rate and Rhythm: Normal rate and regular rhythm. Pulses: Normal pulses. Pulmonary: Effort: Pulmonary effort is normal. Breath sounds: Normal breath sounds. Abdominal: General: Bowel sounds are normal. There is no distension. Palpations: Abdomen is soft. Tenderness: There is no abdominal tenderness. There is no guarding or rebound. Musculoskeletal: General: No swelling. Normal range of motion. Right lower leg: No edema. Left lower leg: No edema. Neurological: General: No focal deficit present. Mental Status: She is alert and oriented to person, place, and time. Skin: General: Skin is warm and dry. Psychiatric: Mood and Affect: Mood normal. Behavior: Behavior normal. Thought Content: Thought content normal. Judgment: Judgment normal. Vitals and nursing note reviewed. Exam conducted with a dip unit operator present. Vitals: Estimated body mass index is 25.51 kg/m as calculated from the following: Height as of 24: 5' 2 . Weight as of this encounter: 139 lb 8 oz. BP: 120/90 No LMP recorded. ASSESSMENT & PLAN ICD-10-CM 1. Well woman exam with routine gynecological exam Z01.419 THIN PREP TIS PAP AND HR HPV DNA 2. Encounter for screening mammogram for malignant neoplasm of breast Z12.31 Bilateral screening mammogram Bilateral screening mammogram Annual Exam: Patient presents today for an annual exam. Patient states she is doing well. Pap was obtained without difficulty. Reviewed ultrasound from 09/17/2024 with pt. Pt voiced understanding. Repeat ultrasound offered, pt declines. Orders Placed This Encounter Procedures Bilateral screening mammogram Follow Up: Patient is to return in one year for annual unless needed otherwise. Documented by Drea Vick MA on behalf of: EVERETTE Ya documented in this encounter [facility] 11-20-2024 History of Present illness Narrative Associated Problem(s): Acute pain of right shoulder Order PT, off work 4 weeks Fu then Pt is still having dull and sharp pains in the left arm she is pointing to the deltoid muscle. She states that she has been babying it due to the pain. She has looked into PT Images from the original note were not included. Isabelle Hewitt is a 49 y.o. female presents with chief complaint of No chief complaint on file. HPI: Deemed not work related w employer Pt is still having dull and sharp pains in the left arm she is pointing to the deltoid muscle. She states that she has been babying it due to the pain. She has looked into PT Shoulder Pain The pain is present in the right shoulder. The current episode started 1 to 4 weeks ago. There has been no history of extremity trauma. The problem has been gradually improving. The quality of the pain is described as aching and sharp. The pain is moderate. Associated symptoms include a limited range of motion, stiffness and tingling. Pertinent negatives include no fever. The symptoms are aggravated by activity. She has tried NSAIDS, rest and cold for the symptoms. The treatment provided mild relief. SUBJECTIVE: MEDICATIONS: Current Outpatient Medications Medication Instructions amitriptyline (ELAVIL) 10 mg, Nightly atenolol (TENORMIN) 100 mg, Oral, Daily atorvastatin (LIPITOR) 20 mg, Oral, Every evening dicyclomine (Bentyl) 10 MG capsule 1 capsule, 3 times daily Effexor XR 75 mg, Daily KlonoPIN 1 mg, 2 times daily PRN levothyroxine (SYNTHROID, LEVOXYL) 75 mcg, Oral, Daily before breakfast loperamide (IMODIUM) 2 mg, Every 6 hours PRN meloxicam (MOBIC) 15 mg, Oral, Daily multivitamin with minerals (Centrum) 9-200 mg-mcg tablet split tablet 1 tablet, Daily potassium chloride CR (K-Tab) 20 MEQ ER tablet 20 mEq, Oral, Daily trospium (Sanctura XR) 60 MG 24 hour capsule 1 capsule, Daily venlafaxine XR (Effexor XR) 150 MG 24 hr capsule 1 capsule, Daily VITAMIN D, CHOLECALCIFEROL, PO Take by mouth. ALLERGIES: No Known Allergies REVIEW OF SYMPTOMS: [...] for difficulty urinating, dysuria and frequency. Musculoskeletal: Positive for arthralgias and stiffness. Negative for back pain, joint swelling and myalgias. Skin: Negative for rash and wound. Neurological: Positive for tingling. Negative for dizziness, tremors, seizures, syncope and headaches. Psychiatric/Behavioral: Negative for behavioral problems, self-injury and suicidal ideas. The patient is not nervous/anxious. Hematological: Does not bruise/bleed easily. Endocrine: [...] Migraine headache (CMS/HCC) Mixed hyperlipidemia (CMS/HCC) 08/18/2023 Nonscarring hair loss Seasonal allergies Shingles 04/17/2024 Sleep apnea Thyroiditis 10/13/2023 Tobacco user Past Surgical History: Procedure Laterality Date ADENOIDECTOMY SECTION, LOW TRANSVERSE CYSTOSCOPY 01/05/2022 Cystoscopy, Left Ureteroscopy, Laser Lithotripsy and left Ureteral Stent LITHOTRIPSY OTHER SURGICAL HISTORY Jaw Surgery ME LAP,CHOLECYSTECTOMY 01/2010 SALPINGECTOMY 11/12/2022 TONSILLECTOMY family history includes Bipolar disorder in her sister; Cancer in her father and mother; Heart attack in her father; Heart disease in her father; Mental illness in her mother; No Known Problems in her daughter, sister, and sister; Prostate cancer in her father; Vulvar cancer in her mother. OBJECTIVE: Visit Vitals BP 118/76 (BP Location: Left arm, Patient Position: Sitting, BP Cuff Size: Adult long) Pulse 76 Temp 97.8 F (Temporal) Resp 18 Wt 141 lb SpO2 99% BMI 25.79 kg/m OB Status Having periods Smoking Status Former BSA 1.67 m Physical Exam Vitals and nursing note [...] is normal. Breath sounds: Normal breath sounds. Musculoskeletal: Cervical back: Normal range of motion and neck supple. Comments: +tenderness right AC joint shoulder, limited ROM right shoulder Biceps tendon/muscle appear intact +radial/ulnar pulse R Pain all ROM Skin: General: Skin is warm and dry. Capillary Refill: Capillary refill takes 2 to 3 seconds. Findings: No rash. Neurological: General: No focal deficit present. Mental Status: She is alert and oriented to person, place, and time. Psychiatric: Mood and Affect: Mood normal. Behavior: Behavior normal. Thought Content: Thought content normal. Judgment: Judgment normal. ASSESSMENT AND PLAN: Follow up in about 4 weeks (around 12/18/2024). Problem List Items Addressed This Visit Acute pain of right shoulder - Primary Order PT, off work 4 weeks Fu then Relevant Orders Ambulatory referral to Physical Therapy documented in this encounter [facility] 11-20-2024 Instructions Larry Kirby NP - 11/20/2024 2:20 PM EDT Will order PT with [facility] in [place], they should call you Off of work for 4 weeks documented in this encounter [facility] 10-09-2024 History of Present illness Narrative Associated Problem(s): Mixed hyperlipidemia (CMS/HCC) Cont statin Check labs yearly and prn dose changes Associated Problem(s): Generalized anxiety disorder with panic attacks (CMS/HCC) Continue with psych Associated Problem(s): Depression with anxiety Continue with Alayna and med adjustment Associated Problem(s): UTI (urinary tract infection) Finish atb Associated Problem(s): Nausea resolved Associated Problem(s): Irritable bowel syndrome with diarrhea No longer having diarrhea Solid stools No acute abd pain Continue with GI Associated Problem(s): Hypertension (CMS/HCC) Please check blood pressure daily and record DASH diet Limit caffeine Take medication as directed Contact office if chest pain, pressure, dizziness, shortness of breath, swelling legs Recommend slow position changes Current meds: atenolol Pt has a rash on her lower right side of her chin she has been using an old prescription of triamcinolone acetonide cream. She has had this rash for over a month now. Dr mix changed her to elavil instead of the Seroquel Pt has not heard back from her GI however she does have a fu in october Stomach issues has subsided for now. She has not had any diarrhea. She had a soft stool today. No more lower back pain Images from the original note were not included. Isabelle Hewitt is a 49 y.o. female presents with chief complaint of No chief complaint on file. HPI: Here for check up: Feels that her abd complaints have improved. No NV, no diarrhea Is also working with Dr Mix with mental health meds. Stopped her seroquel and started elavil less groggy now. She is set to RTW tomorrow Denies any urinary complaints, has one more day left on atb Pimple rash to right side of chin, worried that it may be staph like her UTI, has been putting steroid cream on it, helps some but come back SUBJECTIVE: MEDICATIONS: Current Outpatient Medications Medication Instructions amitriptyline (ELAVIL) 10 mg, Nightly atenolol (TENORMIN) 100 mg, Oral, Daily atorvastatin (LIPITOR) 20 mg, Oral, Every evening dicyclomine (Bentyl) 10 MG capsule 1 capsule, 3 times daily Effexor XR 75 mg, Daily KlonoPIN 1 mg, 2 times daily PRN levothyroxine (SYNTHROID, LEVOXYL) 75 mcg, Oral, Daily before breakfast loperamide (IMODIUM) 2 mg, Every 6 hours PRN magnesium oxide (MAG-OX) 400 mg, Daily multivitamin with minerals (Centrum) 9-200 mg-mcg tablet split tablet 1 tablet, Daily nitrofurantoin (macrocrystal-monohydrate) (MACROBID) 100 mg, Oral, 2 times daily ondansetron (ZOFRAN) 4 mg, Oral, Every 8 hours PRN potassium chloride CR (K-Tab) 20 MEQ ER tablet 20 mEq, Oral, Daily trospium (Sanctura XR) 60 MG 24 hour capsule 1 capsule, Daily venlafaxine XR (Effexor XR) 150 MG 24 hr capsule 1 capsule, Daily VITAMIN D, CHOLECALCIFEROL, PO Take by mouth. ALLERGIES: No Known Allergies REVIEW OF SYMPTOMS: Review of Systems Constitutional: Negative for appetite change, chills, fatigue and fever. HENT: Negative for congestion, ear pain, rhinorrhea and sore throat. Eyes: Negative for pain, [...] Laser Lithotripsy and left Ureteral Stent LITHOTRIPSY ME LAP,CHOLECYSTECTOMY 01/2010 SALPINGECTOMY 11/12/2022 family history includes Bipolar disorder in her sister; Cancer in her father and mother; Heart disease in her father; Mental illness in her mother; No Known Problems in her daughter, sister, and sister. OBJECTIVE: Visit Vitals BP 110/80 (BP Location: Left arm, Patient Position: Sitting, BP Cuff Size: Adult long) Pulse 69 Temp 99.2 F (Temporal) Resp 18 Wt 145 lb 6.4 oz SpO2 99% BMI 26.59 kg/m OB Status Having periods Smoking Status Former BSA 1.7 m Physical Exam Vitals and nursing note [...] normal. Breath sounds: Normal breath sounds. No wheezing. Abdominal: General: Bowel sounds are normal. There is no distension. Palpations: Abdomen is soft. There is no mass. Tenderness: There is no abdominal tenderness. Musculoskeletal: General: Normal range of motion. Cervical back: Normal range of motion and neck supple. Right lower leg: No edema. Left lower leg: No edema. Skin: General: Skin is warm and dry. Capillary Refill: Capillary refill takes 2 to 3 seconds. Findings: No rash (right side of chin area cluster of pustules, non specific does not favor zoster or impetigo). Neurological: General: No focal deficit present. Mental Status: She is alert and oriented to person, place, and time. Psychiatric: Mood and Affect: Mood normal. Behavior: Behavior normal. Thought Content: Thought content normal. Judgment: Judgment normal. ASSESSMENT AND PLAN: Follow up in about 3 months (around 01/06/2025) for Recheck. Problem List Items Addressed This Visit Mixed hyperlipidemia (CMS/HCC) Cont statin Check labs yearly and prn dose changes Relevant Medications atorvastatin (Lipitor) 20 MG tablet Hypertension (CMS/HCC) Please check blood pressure daily and record DASH diet Limit caffeine Take medication as directed Contact office if chest pain, pressure, dizziness, shortness of breath, swelling legs Recommend slow position changes Current meds: atenolol Relevant Medications atenolol (Tenormin) 100 MG tablet Generalized anxiety disorder with panic attacks (CMS/HCC) Continue with psych Depression with anxiety Continue with Alayna and med adjustment Irritable bowel syndrome with diarrhea No longer having diarrhea Solid stools No acute abd pain Continue with GI Generalized abdominal pain - Primary Nausea resolved UTI (urinary tract infection) Finish atb documented in this encounter [facility] 10-09-2024 Instructions Larry Kirby NP - 10/09/2024 3:20 PM EST No changes in meds Rash to face: try neosporin ointment or cream to face, also try cleansing with soap/water if not better let me know documented in this encounter [facility] 09-25-2024 History of Present illness Narrative Associated Problem(s): Weakness generalized Seems to be getting stronger Will still go back and recheck her labs, check xray Possible flu/covid that may have started this all off on 09/14/24??? Off work from 09/18/24-09/30/24, with a RTW on 10/01/24 Associated Problem(s): Irritable bowel syndrome with diarrhea Typically has diarrhea, and has been working with GI regarding this, CT abd/pelvis on 09/18/24 mod-large amount of stool present she has been told by GI to stop her lotronex . She is taking miralax and stool softeners, feels she has not had solid BM, mostly liquid twice a day Will recheck labs and xray abd Associated Problem(s): Subacute cough Lungs clear and mucus is white, no atb Neg COVID/FLU Associated Problem(s): Generalized abdominal pain Recheck xray Check labs Hx of UTI's and stones in the past, reviewed CT scan no stones, her urine sample: she was on her menses Pt states that last Friday 09/15 she started with nausea and dizziness. She states that she stayed in bed for three days due to dizziness and being very light headed. Pt states that she was very fatigue and had no strength to get dressed. Pt states she was INC. Tuesday she urinated in bed, [place] she was INC of stool. She had several diarrhea episodes. She called squad she went to the hospital. She states she was given Toradol for lower back pain and nausea medication. She was told she had constipation. ER told her she did not have a UTI. Pt was given fluids. Pt had followed up with GI who said she had UTI but ER told her she did not. ER told her to take stool softner and miralax every day. She was told on 09/17 by her urologist that her urine was clear Pt does have a wet cough with a foamy white mucus, headaches, sinus pressure, runny/stuffy nose, scratchy throat, chills, hot sweats, nausea, no vomiting, diarrhea, body aches and pain, sob,fatigue, dizzy, weakness, heavy, tightness in the chest. On and off lower back pain Pt is not taking alosetron per GI pt is also not taking anything else OTC Images from the original note were not included. Isabelle Hewitt is a 49 y.o. female presents with chief complaint of Nausea HPI: Pt states that last Friday 09/15 she started with nausea and dizziness. She states that she stayed in bed for three days due to dizziness and being very light headed. Pt states that she was very fatigue and had no strength to get dressed. Pt states she was INC. Tuesday she urinated in bed, Tuesday she was INC of stool. She had several diarrhea episodes. She called squad she went to the hospital. She states she was given Toradol for lower back pain and nausea medication. She was told she had constipation. ER told her she did not have a UTI. Pt was given fluids. Pt had followed up with GI who said she had UTI but ER told her she did not. ER told her to take stool softner and miralax every day. She was told on 09/17 by her urologist that her urine was clear Pt does have a wet cough with a foamy white mucus, headaches, sinus pressure, runny/stuffy nose, scratchy throat, chills, hot sweats, nausea, no vomiting, diarrhea, body aches and pain, sob,fatigue, dizzy, weakness, heavy, tightness in the chest. On and off lower back pain Pt is not taking alosetron per GI pt is also not taking anything else OTC No fever or chills, no UTI symptoms, still with some nausea but is better, and is mostly having liquid watery stools. Less dizziness too Reports her episode of stool and urine incontinence was because she was too weak/dizzy to get up, she knew that she had to go, just could not get up SUBJECTIVE: MEDICATIONS: Current Outpatient Medications Medication Instructions alosetron (LOTRONEX) 1 mg, 2 times daily atenolol (TENORMIN) 100 mg, Oral, Daily atorvastatin (LIPITOR) 20 mg, Oral, Every evening budesonide EC (Entocort EC) 3 MG 24 hr capsule TAKE 3 CAPSULES BY MOUTH DAILY for 60 days, then TAKE 2 CAPSULES BY MOUTH DAILY FOR 14 DAYS, then TAKE 1 CAPSULE BY MOUTH DAILY FOR 14 DAYS Oral for 28 Days dicyclomine (Bentyl) 10 MG capsule 1 capsule, 3 times daily Effexor XR 75 mg, Daily KlonoPIN 1 mg, 2 times daily PRN levothyroxine (SYNTHROID, LEVOXYL) 75 mcg, Oral, Daily before breakfast loperamide (IMODIUM) 2 mg, Every 6 hours PRN magnesium oxide (MAG-OX) 400 mg, Daily multivitamin with minerals (Centrum) 9-200 mg-mcg tablet split tablet 1 tablet, Daily ondansetron (ZOFRAN) 4 mg, Every 8 hours PRN potassium chloride CR (K-Tab) 20 MEQ ER tablet 20 mEq, Oral, Daily QUEtiapine (SEROQUEL) 100 mg, Nightly trospium (Sanctura XR) 60 MG 24 hour capsule 1 capsule, Daily venlafaxine XR (Effexor XR) 150 MG 24 hr capsule 1 capsule, Daily VITAMIN D, CHOLECALCIFEROL, PO Take by mouth. ALLERGIES: No Known Allergies REVIEW OF SYMPTOMS: Review of Systems Constitutional: Positive for appetite change. Negative for chills and fever. HENT: Positive for postnasal drip and sore throat. Negative for congestion and ear pain. Eyes: Negative for pain, discharge, redness and visual disturbance. Respiratory: Positive for cough and chest tightness. Negative for shortness of breath and wheezing. Cardiovascular: Negative for chest pain, palpitations and leg swelling. Gastrointestinal: Positive for abdominal pain, diarrhea and nausea. Negative for blood in stool, constipation and vomiting. Genitourinary: Negative for difficulty urinating, [...] Laser Lithotripsy and left Ureteral Stent LITHOTRIPSY ME LAP,CHOLECYSTECTOMY 01/2010 SALPINGECTOMY 11/12/2022 family history includes Bipolar disorder in her sister; Cancer in her father and mother; Heart disease in her father; Mental illness in her mother; No Known Problems in her daughter, sister, and sister. OBJECTIVE: Visit Vitals BP 108/78 (BP Location: Left arm, Patient Position: Sitting, BP Cuff Size: Adult long) Pulse 73 Temp 98.8 F (Temporal) Resp 18 Wt 140 lb 3.2 oz SpO2 94% BMI 25.64 kg/m OB Status Having periods Smoking Status Former BSA 1.67 m Physical Exam Vitals and nursing note reviewed. Constitutional: General: She is not in acute distress. Appearance: Normal appearance. She is ill-appearing (mild). HENT: Head: Normocephalic and atraumatic. Right Ear: Tympanic membrane, ear canal and external ear normal. Left Ear: Tympanic membrane, ear canal and external ear normal. Nose: Rhinorrhea present. No congestion. Mouth/Throat: Mouth: Mucous membranes are moist. Pharynx: No oropharyngeal exudate or posterior oropharyngeal erythema. Eyes: Extraocular Movements: Extraocular movements intact. Conjunctiva/sclera: Conjunctivae normal. Neck: Vascular: No carotid bruit. Cardiovascular: Rate and Rhythm: Normal rate and regular rhythm. Pulses: Normal pulses. Heart sounds: Normal heart sounds. Pulmonary: Effort: Pulmonary effort is normal. Breath sounds: Normal breath sounds. No wheezing or rales. Comments: Moist cough Abdominal: General: Bowel sounds are normal. There is no distension. Palpations: Abdomen is soft. There is no mass. Tenderness: There is no abdominal tenderness (generalized but not accute). There is no guarding or rebound. Musculoskeletal: General: Normal range of motion. Cervical [...] file. Problem List Items Addressed This Visit Hypertension (CMS/HCC) Please check blood pressure daily and record DASH diet Limit caffeine Take medication as directed Contact office if chest pain, pressure, dizziness, shortness of breath, swelling legs Recommend slow position changes Current meds: atenolol Bipolar II disorder (CMS/HCC) Continue with psych Generalized anxiety disorder with panic attacks (CMS/HCC) Continue with psych Other specified hypothyroidism (CMS/HCC) Relevant Medications levothyroxine (Synthroid, Levoxyl) 75 MCG tablet Overweight (BMI 25.0-29.9) Irritable bowel syndrome with diarrhea Typically has diarrhea, and has been working with GI regarding this, CT abd/pelvis on 09/18/24 mod-large amount of stool present she has been told by GI to stop her lotronex . She is taking miralax and stool softeners, feels she has not had solid BM, mostly liquid twice a day Will recheck labs and xray abd Generalized abdominal pain - Primary Recheck xray Check labs Hx of UTI's and stones in the past, reviewed CT scan no stones, her urine sample: she was on her menses Relevant Orders CBC and differential Comprehensive metabolic panel Amylase Lipase Urinalysis with reflex microscopic (clean catch) Urine culture (clean catch) XR abdomen 2 views w chest 1 view RESOLVED: Viral upper respiratory tract infection Subacute cough Lungs clear and mucus is white, no atb Neg COVID/FLU Relevant Orders POCT COVID & Flu A/B Antigen (Completed) XR abdomen 2 views w chest 1 view Weakness generalized Seems to be getting stronger Will still go back and recheck her labs, check xray Possible flu/covid that may have started this all off on 09/14/24??? Off work from 09/18/24-09/30/24, with a RTW on 10/01/24 Associated Problem(s): Generalized anxiety disorder with panic attacks (CMS/HCC) Continue with psych Associated Problem(s): Bipolar II disorder (CMS/HCC) Continue with psych Associated Problem(s): Hypertension (CMS/HCC) Please check blood pressure daily and record DASH diet Limit caffeine Take medication as directed Contact office if chest pain, pressure, dizziness, shortness of breath, swelling legs Recommend slow position changes Current meds: atenolol documented in this encounter [facility] 09-25-2024 Instructions Larry Kirby NP - 09/25/2024 8:40 AM EST Recheck labs, check xray Off work with a RTW status of 10/01/24 documented in this encounter [facility] 09-04-2024 Telephone encounter Note Pt states levothyroxine is going to be discontinued and pt needs something else. Please call [employer] customer service is [phone]. I think this could be a brand issue, but the patient isn't sure. Thanks! [facility] 09-04-2024 Miscellaneous Notes Pt states levothyroxine is going to be discontinued and pt needs something else. Please call [employer] customer service is [phone]. I think this could be a brand issue, but the patient isn't sure. Thanks! documented in this encounter [facility] 08-06-2024 History of Present illness Narrative Reason for Appointment: Patient ID: [...] Ambulatory Problems Diagnosis Date Noted Mixed hyperlipidemia ([facility]) 08/18/2023 Hypokalemia 08/24/2023 Hypertension ([facility]) 08/24/2023 Chronic diarrhea 08/24/2023 Anxiety state ([facility]) 10/13/2023 Bipolar II disorder ([facility]) 01/15/2022 Generalized anxiety disorder with panic attacks ([facility]) 01/15/2022 Depression with anxiety 10/13/2023 History of kidney stones 10/13/2023 DIONNE (obstructive sleep apnea) 01/15/2022 Thyroiditis ([facility]) 10/13/2023 Other specified hypothyroidism ([facility]) 10/19/2023 Abnormality of left breast on screening mammogram 12/07/2023 Microscopic colitis, unspecified ([facility]) 08/08/2023 Overactive bladder 01/25/2024 Bloating 01/25/2024 Overweight [...] risk for fall Condyloma Contraception management Depression ([facility]) Elevated prolactin level Elevated total protein Enlarged LA (left atrium) Enlarged LA (left atrium) History of migraine headaches HPV (human papilloma virus) infection Hyperlipidemia ([facility]) Hypertriglyceridemia ([facility] Hypertriglyceridemia ([facility]) Kidney stones Menopause Menopause Migraine headache ([facility]) Seasonal allergies Sleep apnea Tobacco user HISTORY PAST MEDICAL HISTORY SOCIAL HISTORY Past Medical History: Diagnosis Date Abnormal appearance of cervix Abnormal mammogram of both breasts Acute cystitis Allergies Amenorrhea Anxiety At low risk for fall Condyloma Contraception management Depression ([facility]/HCC) Elevated prolactin level Elevated total protein Enlarged LA (left atrium) Enlarged LA (left atrium) Generalized anxiety disorder with panic attacks (CMS/HCC) tiraled rexulti, latuda, and trazadone History of kidney stones History of migraine headaches HPV (human papilloma virus) infection Hyperlipidemia (CMS/HCC) Hypertension (CMS/HCC) 08/24/2023 Hypertriglyceridemia (CMS/HCC) Hypertriglyceridemia (CMS/HCC) Hypokalemia 08/24/2023 Kidney stones Menopause Menopause Migraine headache (CMS/HCC) Mixed hyperlipidemia ([facility]/HCC) 08/18/2023 Seasonal allergies Shingles 04/17/2024 Sleep apnea Thyroiditis ([facility]/HCC) 10/13/2023 Tobacco user Social History Tobacco Use [...] Laser Lithotripsy and left Ureteral Stent LITHOTRIPSY ME LAP,CHOLECYSTECTOMY 01/2010 SALPINGECTOMY 11/12/2022 REVIEW OF SYSTEMS [...] calculated from the following: Height as of 24: 5' 2 . Weight as of this [...] of: EVERETTE Ya documented in this encounter [facility] 07-31-2024 Evaluation note Diagnosis Onset Date Resolution BMI 27.0-27.9,adult acute Decem 2023 11:34am Edentulous acute July 31, 2024 11:34am Encounter for adjustment and management of other implanted nervous system d acute July 31 11:34am Obstructive sleep apnea (adult) (pediatric) acute July 11:34am S/P placement of hypoglossal nerve stimulator acute July 31 11:34am BMI 27.0-27.9,adult acute 2024 9:47am Edentulous acute September 04, 2024 9:47am Encounter for adjustment and management of other implanted nervous system d acute September 04 9:47am Obstructive sleep apnea (adult) (pediatric) acute August 9:47am S/P placement of hypoglossal nerve stimulator acute September 04 9:47am Irritable bowel syndrome with diarrhea acute August 232024 3:11pm Constipation acute October 23, 025 3:19pm [facility] Work Phone: 1(596) 175-455811-22-2024 Evaluation note* Diagnosis Onset Date Resolution Status Admit Date Irritable bowel syndrome wit h diarrhea acute July 13, 2 024 1:59pm BMI 27.0-27.9,adult acute Decem 2023 11:34am Edentulous acute July 31, 2024 11:34am Encounter for adjustment and management of other implanted nervous system d acute July 31, 2024 11:34am Obstructive sleep apnea (adult) (pediatric) acute July 11:34am S/P placement of hypoglossal nerve stimulator acute July 31, 2024 11:34am BMI 27.0-27.9,adult acute Janua 2024 9:47am Edentulous acute September 04, 2024 9:47am Encounter for adjustment and management of other implanted nervous system d acute September 04, 025 9:47am Obstructive sleep apnea (adult) (pediatric) acute August 9:47am S/P placement of hypoglossal nerve stimulator acute September 04, 025 9:47am Irritable bowel syndrome wit h diarrhea acute September 10 3:11pm [facility] Work Phone: 1(260) 826-990210-29-2024 History of Present illness Narrative* Larry Kirby NP - 06/19/2024 4:54 PM EDTAssociated Problem(s): Bipolar II disorder (CMS/HCC) Continue with psych * Larry Kirby NP - 06/19/2024 4:54 PM EDTAssociated Problem(s): Generalized anxiety disorder with panic attacks (CMS/HCC) Continue with psych * Larry Kirby NP - 06/19/2024 4:53 PM EDTAssociated Problem(s): Hypokalemia Check basic * Larry Kirby NP - 06/19/2024 4:53 PM EDTAssociated Problem(s): Irritable bowel syndrome with diarrhea Continue with GI for treatment ?metformin have any influence?? May want to discuss, she was taking metformin for weight loss * Larry Kirby NP - 06/19/2024 4:53 PM EDTAssociated Problem(s): Microscopic colitis, unspecified (CMS/HCC) Continue with GI for treatment * Larry Kirby NP - 06/19/2024 4:52 PM EDTAssociated Problem(s): Hypertension ([facility]/HCC) At goal no dose change Check basic * Larry Kirby NP - 06/19/2024 4:52 PM EDTAssociated Problem(s): DIONNE (obstructive sleep apnea) Cont with ENT for Inspire activation * LIDIA OLIVER - 06/19/2024 3:20 PM EDT Pt is still dealing with diarrhea with her GI dr. Pt has her now on 1mg twice daily of the alosetron hydrochloride since 06/11/24 No other changes * Larry Kirby NP - 06/19/2024 3:20 PM EDT Images from [...] Laser Lithotripsy and left Ureteral Stent LITHOTRIPSY ME LAP,CHOLECYSTECTOMY 01/2010 SALPINGECTOMY 11/12/2022 family history includes [...] metformin for weight loss [facility]clxawdxpm01-07-0056 Evaluation note* Diagnosis Onset Date Resolution Status Admit Date Fecal urgency acute May 3:37pm Irritable bowel syndrome wit h diarrhea acute June 11 3:37pm Microscopic colitis acute er 2023 3:37pm Irritable bowel syndrome wit h diarrhea acute July 13, 2 024 1:59pm BMI 27.0-27.9,adult acute Decem 2023 11:34am Edentulous acute July 31, 2024 11:34am Encounter for adjustment and management of other implanted nervous system d acute July 31, 2024 11:34am Obstructive sleep apnea (adult) (pediatric) acute July 11:34am S/P placement of hypoglossal nerve stimulator acute July 31, 2024 11:34am [facility] Work Phone: 1([phone]) 843-307909-11-2024 History of Present illness Narrative* Larry Kirby NP - 05/02/2024 4:48 PM EDTAssociated Problem(s): Acute URI I would recommend at home covid test Did recently have shingles as well, so would be immune compromised She already spoke with BUSINESS PROGRAMMER at ENT, they sent her in augmentin [...] Pt was on her dr on demand jose last night and talked to a BUSINESS PROGRAMMER who believes with her symptoms she mayhave [...] runny nose and stuffy nose, sinus pressure, BUSINESS PROGRAMMER prescribed benzonates 200mg, nasal spray, amoxicillin 875mg potassium clavulanate 125mg tab Diagnosis of sinusitis * Larry Kirby NP - 05/02/2024 3:20 PM EDT Images from [...] Laser Lithotripsy and left Ureteral Stent LITHOTRIPSY ME LAP,CHOLECYSTECTOMY 01/2010 SALPINGECTOMY 11/12/2022 family history includes [...] be immune compromised She already spoke with BUSINESS PROGRAMMER at ENT, they sent her in augmentin and tessalon for sinusitis, which could also be going on, however I did ask she do at home covid test She missed work today, and she is asking for a work note, her employer requires her to completed sick leave for period of 8 days. Off 05/02/24-05/09/24 w RTW on 05/10/24 [id number] History of Present illness Narrative* Larry Kirby NP - 04/17/2024 12:53 PM EDTAssociated [...] appearing on her lani/ groin area. * Laryr Kirby NP - 04/17/2024 11:40 AM EDT [...] Laser Lithotripsy and left Ureteral Stent LITHOTRIPSY ME LAP,CHOLECYSTECTOMY 01/2010 SALPINGECTOMY 11/12/2022 family history includes [...] 04/26/24 Fu if needed [facility] CenterSayevcvpda71-18-7375 Evaluation note* Author Majo Lyman [facility] Authored March 13, 2024 4:17 pm Patient's symptoms have impr rizwana with recommendation of dicyclomine and dietary changes. Patient has yet to complete bowel cleanout due to large stool burden noted on KUB this is also recommended. Patient negative for other GI symptoms at this time [facility] Work Phone: 1(330) 889-215601-30-2024 Evaluation note* Encounter Date Diagnosis Assessment Notes [...] improve even to the point of resolution, [employer] Other 12-18-20[facility]* Encounter Date Diagnosis Assessment Notes [...] COLONOSCOPY. Jun, Fecal urgency (ICD-10 - R15.2) [employer] Other 10-17-2023 Evaluation note* Encounter Date Diagnosis [...] (suspected) exposure to covid-19 (ICD-10 - Z20.822) [employer] Other 06-07-2023 Telephone encounter Note* Telephone Encounter - Rikki Rodrigues DMD, MD - 01/26/2023 10:18 AM EDT Called and left voicemail for patient. Post-op Home Sleep Test reviewed from [facility], and there is considerable improvement. Pre-op AHI is 102, now down to 31. Pre-op O2 Carlene of 71%, now up to 82%. However, still with considerable desat time. There are notes from Dr. Moreno evaluating for INSPIRE I presume, but nothing since November. Asked patient for call back or Augmenthart message with if she has been able to continue with Dr. Moreno at his new office, or if she needs referral to another [facility] Work Phone: [phone]) 610-527906-07-2023 Miscellaneous Notes* Telephone Encounter - Rikki Rodrigues DMD, MD - 01/26/2023 10:18 AM EDT Called and left voicemail for patient. Post-op Home Sleep Test reviewed from [facility], and there is considerable improvement. Pre-op [...] another [facility] documented in this [id number] NoteOPERATIVE NOTE OPERATION DATE: 11/12/2022 PROCEDURE: Robotic assisted laparoscopic salpingectomy. PREOPERATIVE DIAGNOSIS: Multiparity, desires permanent sterilization. POSTOPERATIVE DIAGNOSIS: Multiparity, desires permanent sterilization. ANESTHESIA: General. SURGEON: Oswald Harrington D.O. PAPER COLORER: VIRAJ Salazar URINE OUTPUT: Yellow and clear. [...] lap and needle counts were correct x2.[facility] HospitalDkitljwd74-21-6092 Telephone encounter Note* Telephone Encounter - Tatiana Morris - 11/04/2022 3:51 PM EDT Opened in error [id number] Miscellaneous Notes* Telephone Encounter - Tatiana Morris - 11/04/2022 3:51 PM EDT Opened in error documented in this [id number] Telephone encounter Note* Telephone Encounter - Rikki Rodrigues DMD, MD - 11/01/2022 2:32 PM EDT Called patient and left voicemail. Advised that order for post-op PSG was faxed to [facility]. Left number to call to schedule study at her convenience ([phone]) [facility] Work Phone: [phone]) [phone] Miscellaneous Notes* Telephone Encounter - Rikki Rodrigues DMD, MD - 11/01/2022 2:32 PM EDT Called patient and left voicemail. Advised that order for post-op PSG was faxed to [facility]. Left number to call to schedule study at her convenience ([phone]) documented in this [id number] History general Narrative - Reported* Type Description [...] counseling for depression, anxiety Hospitalization History dehydration [employer] Other [id number] History of Present illness Narrative* Rikki Rodrigues [...] -Complete sleep study with Dr. Mcmanus in [place], [place] in 1.5 months -Follow up with patient's general dentist, Sinan Jones DDS for denture adjustment Follow-Up: After new sleep study Follow up sooner with new or worsening symptoms. Sinan Jones DDS [address] [address] Wiley Mcmanus MD [facility] [address] [place] [address] Seferino Vaz DMD [facility] Resident documented in this [id number] Instructions* Patient Instructions* Wilfredo Vang DMD - 08/30/2022 12:07 PM EST With clean hands massage gums under your upper lip daily at night time No food restrictions Follow up with your dentist We will contact your Sleep Center in [place] to have a Sleep Study completed in 1.5 months. documented in this [id number] Instructions* Patient Instructions* Wilfredo Vang DMD - 08/30/2022 12:07 PM EST With clean hands massage gums under your upper lip daily at night time No food restrictions Follow up with your dentist We will contact your Sleep Center in [place] to have a Sleep Study completed in 1.5 months. documented in this [id number] History of Present illness Narrative* Seferino Vaz [...] -Complete sleep study with Dr. Mcmanus in [place], [place] in 1.5 months -Follow up with patient's general dentist, Sinan Jones DDS for denture adjustment Follow-Up: PRN Follow up sooner with new or worsening symptoms. Sinan Jones DDS [facility] [address] [place] [address] Wiley Mcmanus MD [facility] [address] [place] [address] Seferino Vaz DMD [facility] Resident documented in this [id number] Telephone encounter Note* Telephone Encounter - Jerel [...] Jerel Villegas DDS, MD FS- PGY4 [phone] [facility] Work Phone: [phone]) [phone] Miscellaneous Notes* Telephone Encounter - Jerel Villegas [...] patient at this number. Jerel Villegas DDS, [facility]- PGY4 [phone] documented in this [id number] Telephone encounter Note* Telephone Encounter - Oliver Rogers DMD - 08/02/2022 4:26 PM EST Called pt. No answer. LVM with callback instructions. Per Dr. Rodrigues, we will not write any work excuse notes or prescribe any pain meds until pt is seenin person for follow up. Oliver Rogers DMD [facility] Work Phone: [phone]) [phone] Miscellaneous Notes* Telephone Encounter - Oliver Rogers DMD - 08/02/2022 4:26 PM EST Called pt. No answer. LVM with callback instructions. Per Dr. Rodrigues, we will not write any work excuse notes or prescribe any pain meds until pt is seenin person for follow up. Oliver Rogers DMD * Telephone Encounter - Beronica, Zayda - 08/02/2022 11:44 AM EST Pt called [...] options if that is the case. Email: [email or web address] Contact pt @[phone] for questions/concerns documented in this [id number] Telephone encounter Note* Telephone Encounter - Dora [...] options if that is the case. Email: [email or web address] Contact pt @[phone] for questions/concerns [id number] Telephone encounter Note* Telephone Encounter - Mikal [...] Oral & Maxillofacial Surgery, PGY-3 Team Pager: [phone] [employer] Work Phone: [phone]) [phone] Miscellaneous Notes* Telephone Encounter - Mikal Rodgers [...] Oral & Maxillofacial Surgery, PGY-3 Team Pager: [phone] documented in this [id number] History of Present illness Narrative* Mikal Rodgers [...] Oral & Maxillofacial Surgery, PGY-3 Team Pager: [phone] documented in this [id number] History of Present illness Narrative* Saleem Mi DMD - 07/19/2022 8:28 AM EST Images from the original note were not included. Initial pre-surgical workup photos: documented in this [id number] Note* Care Plan Note - Penny Brown [...] provided. Patient discharged home with family member. [id number] Miscellaneous Notes* Care Plan Note - Penny [...] year old female Surgical Contact Serial Number: [id number] Preoperative Diagnosis: DIONNE (obstructive sleep apnea) [G47.33] Postoperative Diagnosis: * DIONNE (obstructive sleep apnea) [G47.33] Procedures: Surgical CPTs Procedures RECONSTRUCTION MIDFACE, LEFORT I; 1 PIECE, W/O BONE GRAFT RECONSTRUCTION, MANDIBULAR RAMI &/OR BODY, SAGITTAL SPLIT; W/INT RIGID FIXATION No data filed Surgeon(s): Surgeon(s): Rikki Rodrigues DMD, MD Staff: Scrub: Annelise Saeed RN; Babs Wells RN Projection Printer Nurse: Stephanie Brannon RN; Babs Wells RN Automobile Dealer: Margot Ovalles DDS; Saleem Mi DMD Anesthesia: General Anesthesiologist: Mark Atwood MD CAA: Edwina Warren CAA; Delia [...] 07/14/2022 12:58 PM * Blood Attestation - Mark Atwood MD - 07/14/2022 7:06 AM EST Blood Attestation ATTESTATION OF INFORMED CONSENT FOR BLOOD The transfusion of blood and/or blood components were discussed with the patient and/or legal phone representative. The risks, benefits and alternatives were reviewed. Questions regarding blood transfusions were answered. The patient /or the patient s legal phone representative agree with the plan for transfusion of blood and/or blood components. * Anesthesia Attestation - Mark Atwood MD - 07/14/2022 7:06 AM EST Anesthesia Attestation ATTESTATION OF INFORMED CONSENT FOR ANESTHESIA Anesthesia options were discussed with the patient and/or legal phone representative. The risks, benefits and alternatives were reviewed. Questions regarding anesthesia were answered. Patient and/or legal phone representative knows such anesthetics and procedures may be performed by Resident physicians, Certified Anesthesiologist Assistants, or Certified Nurse Anesthetists under the supervision of a physician. The patient /or the patient s legal representativeagree with the plan for anesthesia. documented in this [id number] NoteDISCHARGE SUMMARY [address] [address] Isabelle Hewitt Date of : 1975 47 [...] 07/23/2022 2:30 PM Rikki Rodrigues DMD, MD 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 Extremities: [id number] Psych: Normal mood and affect Labs: Basic [...] mg Oral Q4H PRN 5 mg at 07/17/22408 oxyCODONE (ROXICODONE) 5 mg/5 mL oral solution [...] mcg Oral Before Breakfast 50 mcg at 07/17/229 metformin (GLUCOPHAGE) tablet 500 mg Oral Daily [...] oxymetazoline (AFRIN) 0.05 % nasal solution 2 [place] Nasal Q4H PRN sodium chloride (OCEAN) 0.65 % nasal spray 1 [place] Nasal Q1H PRN naloxone (NARCAN) 0.4 MG/ML [...] to be discharged to follow up with OMFS clinic. * Lola Wyatt RN - 07/16/2022 [...] ivpb, 3,000 mg, Intravenous, Q6H Antibiotic, El JonathansyMargot, DDS, Last Rate: 200 mL/hr at 07/16/22 [...] oxymetazoline (AFRIN) 0.05 % nasal solution, 2 [place], Nasal, Q4H PRN, Oliver Rogers, DMD sodium chloride (OCEAN) 0.65 % nasal spray, 1 [place], Nasal, Q1H PRN, Oliver Rogers, DMD naloxone (NARCAN) 0.4 MG/ML injection, 0.4 mg, Intravenous Push, PRN, Mark Atwood MD Physical Exam: Constitutional: Pleasant adult [...] Glu BUN Cr Ca Mg PO4 07/16/22 040 2.0 07/16/22400 144 4.0 103 31 14 [...] Daily, Oliver Rogers, DMD, 20 mg at 07/14/22 2114 ibuprofen (MOTRIN) tablet, 600 mg, Oral, Q6H PRN, Oliver Rogers, CHAU oxyCODONE immediate release tablet, 5 mg, Oral, Q4H PRN, Oliver Rogers, DMD oxyCODONE immediate release tablet, 10 mg, Oral, Q4H PRN, lOiver Rogers, DMD, 10 mg at 07/15/22 0346 dexamethasone (DECADRON) 4 MG/ML injection, 8 mg, Intravenous Push, Every 8 hours, Oliver Rogers, DMD, 8 mg at 07/15/22 0109 ondansetron (ZOFRAN) 4 MG/2ML injection, 4 mg, Intravenous Push, Q6H PRN, Oliver Rogers, DMD docusate sodium (COLACE) capsule, 100 mg, Oral, 2x Daily, Oliver Rogers, DMD bisacodyl (DULCOLAX) 5 MG enteric coated tablet, 10 mg, Oral, Daily PRN, Oliver Rogers, CHAU oxymetazoline (AFRIN) 0.05 % nasal solution, 2 [place], Nasal, Q4H PRN, Oliver Rogers, DMD sodium chloride (OCEAN) 0.65 % nasal spray, 1 [place], Nasal, Q1H PRN, Oliver Rogers, DMD enoxaparin (LOVENOX) 40 MG/0.4ML injection 40 mg, 40 mg, Subcutaneous, Daily, Oliver Rogers, DMD, 40 mg at 07/14/22 1658 naloxone (NARCAN) 0.4 MG/ML injection, 0.4 mg, Intravenous Push, PRN, Mark Atwood MD lactated ringers iv infusion, , [...] discussed. Zehra Stearns MD documented in this [id number] Note* Care Plan Note - Penny Brown [...] adult patient will be met Outcome: Progressing [id number] Note* Care Plan Note - Lauren Crawford [...] adult patient will be met Outcome: Progressing [id number] Note* Care Plan Note - Alon Cotton [...] monitoring. Patient free of falls/injuries during shift. [id number] History and physical note* Zehra Stearns MD - 07/14/2022 3:58 PM EST Images from the original note were not included. Surgical ICU H&P Isabelle Hewitt [id number] HPI: Ms Hewitt is a 47 year [...] Clifford Cruz MD PGY-5 Radiology SICU Pager -[phone] [facility] Surgery Pager -[phone], Weekdays 6a-6p [place] Pager -[phone], Weekdays 6p-6a, weekends Attending Attestation I saw [...] stepdown for airway monitoring. Zehra Stearns MD [id number] History and physical note* Zehra Stearns MD - 07/14/2022 3:58 PM EST Images from the original note were not included. Surgical ICU H&P Isabelle Hewitt [id number] HPI: Ms Hewitt is a 47 year [...] Clifford Cruz MD PGY-5 Radiology SICU Pager -[phone] [facility] Surgery Pager -[phone], Weekdays 6a-6p [place] Pager -[phone], Weekdays 6p-6a, weekends Attending Attestation I saw [...] Yes Saleem Mi DDS documented in this [id number] NoteSurgical Attestation: I have reviewed the patient's History and Physical Examination. I have personally seen and evaluated the patient, repeating ulloa portions. There is no significant interval change. Surgery is still indicated. Yes Consent reviewed and signed by patient/family: Yes Operative site verified: Yes [facility] Dow [facility] [id number] Note* Brief Operative Note - Rikki Rodrigues DMD, MD - 07/14/2022 8:30 AM EST Brief Operative Note MAIN OR 12 Isabelle Hewitt 47 year old female Surgical Contact Serial Number: [id number] Preoperative Diagnosis: DIONNE (obstructive sleep apnea) [G47.33] Postoperative Diagnosis: * DIONNE (obstructive sleep apnea) [G47.33] Procedures: Surgical CPTs Procedures RECONSTRUCTION MIDFACE, LEFORT I; 1 PIECE, W/O BONE GRAFT RECONSTRUCTION, MANDIBULAR RAMI &/OR BODY, SAGITTAL SPLIT; W/INT RIGID FIXATION No data filed Surgeon(s): Surgeon(s): Rikki Rodrigues DMD, MD Staff: Scrub: Annelise Saeed RN; Babs Wells RN Projection Printer Nurse: Stephanie Brannon RN; Babs Wells RN Automobile Dealer: Margot Ovalles DDS; Saleem iM DMD Anesthesia: General Anesthesiologist: Mark Atwood MD CAA: Edwina Warren CAA; Delia [...] Rikki Rodrigues DMD, MD 07/14/2022 12:58 PM [employer] Work Phone: 1(341) 297-848811-23-2022 History and physical note* Saleem Mi DMD - 07/14/2022 7:13 AM EST Surgical Attestation: I have reviewed the patient's History and Physical Examination. I have personally seen and evaluated the patient, repeating ulloa portions. There is no significant interval change. Surgery is still indicated. Yes Consent reviewed and signed by patient/family: Yes Operative site verified: Yes Saleem Mi DDS [employer] Work Phone: 1(866) 117-823511-23-2022 Note* Blood Attestation - Mark Atwood MD - 07/14/2022 7:06 AM EST Blood Attestation ATTESTATION OF INFORMED CONSENT FOR BLOOD The transfusion of blood and/or blood components were discussed with the patient and/or legal phone representative. The risks, benefits and alternatives were reviewed. Questions regarding blood transfusions were answered. The patient /or the patient s legal phone representative agree with the plan for transfusion of blood and/or blood components. [employer] Work Phone: 1(386) 889-780811-23-2022 Note* Anesthesia Attestation - Mark Atwood MD - 07/14/2022 7:06 AM EST Anesthesia Attestation ATTESTATION OF INFORMED CONSENT FOR ANESTHESIA Anesthesia options were discussed with the patient and/or legal phone representative. The risks, benefits and alternatives were reviewed. Questions regarding anesthesia were answered. Patient and/or legal phone representative knows such anesthetics and procedures may be performed by Resident physicians, Certified Anesthesiologist Assistants, or Certified Nurse Anesthetists under the supervision of a physician. The patient /or the patient s legal representativeagree with the plan for anesthesia. [id number] Telephone encounter Note* Telephone Encounter - Latoya Manzo RN - 07/09/2022 3:43 PM EST 1541: Contacted pt and informed her to call the ENT office to schedule appt with Dr Moreno s/p jaw surgery in about 3 months due to healing time. Pt verbalized understanding. Latoya Manzo RN [id number] Miscellaneous Notes* Telephone Encounter - Latoya Manzo [...] step is for after the surgery. PT: [phone] Gus Luz documented in this [id number] Telephone encounter Note* Telephone Encounter - Nicole Diaz - 07/09/2022 2:[address] Joel, Patient calling stating that she is going forward with the jaw surgery that you recommended next 07/14/22. Patient would like to know what the next step is for after the surgery. PT: [phone] Gus Luz [facility] Work Phone: [phone]) 102-715811-17-2022 Instructions* Patient Instructions* Larry Holbrook APRN-CNP - 07/08/2022 2:36 PM EST [...] for pain Please hold all Vitamin E, Marietta 3, fish oil and herbal supplements for 1 week prior to surgery documented in this [id number] Note* PSE Appt H&P - Edwina Daniel - 07/08/2022 1:59 PM EST Patient was identified by name and date of . Edwina Daniel Bill of rights provided to patient [id number] Miscellaneous Notes* PSE Appt H&P - Edwina Daniel - 07/08/2022 1:59 PM EST Patient was identified by name and date of . Edwina Daniel Bill of rights provided to patient * PSE Appt H&P - Larry Holbrook APRN-CNP - 07/07/2022 4:03 PM EST Presurgical Evaluation Isabelle Hewitt, [id number] 47 year old Female 07/08/2022 BP 122/80 [...] Yes Does not use CPAP PS12/17/2021 at [facility] RESPIRATORY DATA INTEGRITY: Respiratory data integrity [...] Arredondo 4:25 PM 07/08/2022 documented in this [id number] NotePresurgical Evaluation Isabelle Hewitt, [id number] 47 year old Female 07/08/2022 BP 122/80 [...] Yes Does not use CPAP PS12/17/2021 at [facility] RESPIRATORY DATA INTEGRITY: Respiratory data integrity [...] grossly intact Psychia (more content not included)...[employer] Ilvaks04-30-8057 Note* PSE Appt H&P - Larry Holbrook APRN-BIRAN - 07/07/2022 4:03 PM EST Presurgical Evaluation Isabelle Hewitt, [id number] 47 year old Female 07/08/2022 BP 122/80 [...] Yes Does not use CPAP PS12/17/2021 at [facility] RESPIRATORY DATA INTEGRITY: Respiratory data integrity [...] Interviewer signature: ARTURO Arredondo 4:25 PM 07/08/2022 [id number] NotePatient is vaccinated for COVID-19. Vaccinations are documented in Epic. Patient does not require pre-op COVID testing per current guidelines.[employer] [id number] Telephone encounter Note* Telephone Encounter - Camryn Dennis RN - 07/05/2022 8:53 PM EST Patient is vaccinated for COVID-19. Vaccinations are documented in Epic. Patient does not require pre-op COVID testing per current guidelines. [id number] Miscellaneous Notes* Telephone Encounter - Camryn Dennis RN - 07/05/2022 8:53 PM EST Patient is vaccinated for COVID-19. Vaccinations are documented in Epic. Patient does not require pre-op COVID testing per current guidelines. documented in this [id number] Note* PSE Appt H&P - Pierce Ramos APRN-CNP - 07/05/2022 12:06 PM EST Error [facility] Work Phone: 1(419) 676-828011-14-2022 Miscellaneous Notes* PSE Appt H&P - Pierce Ramos APRN-CNP - 07/05/2022 12:06 PM EST Error documented in this [id number] History of Present illness Narrative* Seferino Vaz DMD - 07/02/2022 11:00 AM EST ORAL SURGERY CLINIC FOLLOW UP VISIT Patient was seen in the [facility] clinic for alginate impressions of the edentulous maxilla and CBCT with denture in place. Seferino Vaz DMD FS Resident ms. documented in this [id number] History of Present illness Narrative* Rikki Rodrigues DMD, MD - 06/18/2022 4:17 PM EDT Images from the original note were not included. OMFS PATIENT VISIT CHIEF COMPLAINT: sleep apnea HISTORY OF PRESENT ILLNESS: Patient presents for evaluation for surgical treatment of DIONNE. She is extremely symptomatic from her DIONNE, and suffers from CPAP intolerance. Sodus sleepiness scale is 18. Patient is starting [...] on 06/18/2022, and Digital version in Dentistry Tap[employer] system. Airway measurements are very small compared to norms. Retrognathic mandible. DIAGNOSIS: Obstructive sleep apnea [893565] TREATMENT: Exam, Panorex evaluated, and pictures/models taken [...] Rikki Rodrigues DMD, MD documented in this [id number] History of Present illness Narrative* Margot Ovalles, DDS - 06/18/2022 4:17 PM EDT Images from the original note were not included. OMFS PATIENT VISIT CHIEF COMPLAINT: sleep apnea HISTORY OF PRESENT ILLNESS: Patient presents for evaluation for surgical treatment of DIONNE. She is extremely symptomatic from her DIONNE, and suffers from CPAP intolerance. Sodus sleepiness scale is 18. Patient is starting [...] norms. Retrognathic mandible. DIAGNOSIS: Obstructive sleep apnea [904319] TREATMENT: Exam, Panorex evaluated, and pictures/models taken [...] Rikki Rodrigues DMD, MD documented in this [id number] Instructions* Patient Instructions* Rikki Rodrigues DMD, MD [...] fatigue and inconsistent sleep. documented in this [id number] NoteSurgical Attestation: I have reviewed the patient's History and Physical Examination. I have personally seen and evaluated the patient, repeating ulloa portions. There is no significant interval change. Surgery is still indicated. Yes Consent reviewed and signed by patient/family: Yes Operative site verified and marked: site verified but not marked as not anatomically possible Ryann Brown PA-C 06/03/2022 11:55 AM[employer] [id number] Evaluation note* Encounter Date Diagnosis Assessment Notes Treatment Notes Treatment Clinical Notes May, Encounter for screening for other viral diseases (ICD-10 - Z11.59) [employer] Other 10-07-2022 Note* PSE Call H&P - Rose Brown RN - 05/28/2022 9:42 AM EDT Images from the original note were not included. Telephone History Isabelle Hewitt, [id number] 05/28/2022 47 year old 190 lbs 5' [...] prior sleep endoscopy STOP-BANG Row Name 05/28/22 0989 History of sleep apnea? Yes dionne-intolerant of [...] pain. Do not take any Vitamin E, Marietta 3, fish oils, herbal medications 7 days [...] Spent Performing this Telephone History: 30 minutes [id number] Miscellaneous Notes* PSE Call H&P - Rose Brown RN - 05/28/2022 9:42 AM EDT Images from the original note were not included. Telephone History Isabelle Hewitt, [id number] 05/28/2022 47 year old 190 lbs 5' [...] pain. Do not take any Vitamin E, Marietta 3, fish oils, herbal medications 7 days [...] Telephone History: 30 minutes documented in this [id number] Telephone encounter Note* Telephone Encounter - Camryn Dennis RN - 05/28/2022 8:15 AM EDT Patient is scheduled for DISE on 06/03/2022. Prefers to complete pre-op COVID testing closer to home. Instructed to obtain testing 48-72 hours prior to surgery and bring copy of results on day of surgery. PSE contact information provided. [id number] Miscellaneous Notes* Telephone Encounter - Camryn Dennis RN - 05/28/2022 8:15 AM EDT Patient is scheduled for DISE on 06/03/2022. Prefers to complete pre-op COVID testing closer to home. Instructed to obtain testing 48-72 hours prior to surgery and bring copy of results on day of surgery. PSE contact information provided. documented in this [id number] Telephone encounter Note* Telephone Encounter - Camryn Dennis RN - 05/26/2022 9:16 PM EDT Arrangements to be made for pre-op COVID testing per ENT request. [id number] Miscellaneous Notes* Telephone Encounter - Camryn Dennis RN - 05/26/2022 9:16 PM EDT Arrangements to be made for pre-op COVID testing per ENT request. documented in this [id number] Note* Addendum Note - Yi Moreno MD - 05/26/2022 5:25 PM EDTAddended by: YI MORENO on: 05/26/2022 05:25 PM Modules accepted: Orders [id number] Miscellaneous Notes* Addendum Note - Yi Moreno MD - 05/26/2022 5:25 PM EDTAddended by: YI MORENO on: 05/26/2022 05:25 PM Modules accepted: Orders documented in this [id number] History of Present illness Narrative* Yi Moreno MD - 03/29/2022 2:41 PM EDT Images from the original note were not included. .Documentation: Mode: Telephone Patient Home Phone: Patient Patient Cell Preferred phone: [phone] Consent: I confirmed patient understanding of the [...] on prior sleep endoscopy documented in this [id number] History of Present illness Narrative* Yi Moreno MD - 03/29/2022 2:41 PM EDT Images from the original note were not included. .Documentation: Mode: Telephone Patient Home Phone: Patient Patient Cell Preferred phone: [phone] Consent: I confirmed patient understanding of the [...] on prior sleep endoscopy documented in this [id number] Telephone encounter Note* Telephone Encounter - Tatiana [...] to turn it in is 03/19/22. PH#: [phone] [id number] Miscellaneous Notes* Telephone Encounter - Tatiana Morris [...] to turn it in is 03/19/22. #: [phone] documented in this [id number] Note* Care Plan Note - Iglesia Amin [...] will be met Outcome: Adequate for Discharge LevfzCmtcpa14-50-5312 Miscellaneous Notes* Care Plan Note - Iglesia [...] year old female Surgical Contact Serial Number: [id number] Preoperative Diagnosis: DIONNE (obstructive sleep apnea) [G47.33] Postoperative Diagnosis: * DIONNE (obstructive sleep apnea) [G47.33] Procedures: Surgical CPTs Procedures PALATOPHARYNGOPLASTY No data filed Surgeon(s): Surgeon(s): Yi Moreno MD Staff: Scrub: Wiley Álvarez Projection Printer Nurse: Mariaa Briseno; Dulce Allred; Babs Wells RN Automobile Dealer: Yi Piña MD; Unruly Biggs MD Anesthesia: Consult Anesthesiologist: Maite Youssef MD CAA: Mariaa Meneses CAA DIVE SUPERINTENDENT: Cari Hurtado APRN-KOBI Support Clerk: Carol Barrera MD Anesthesia Student: Prema Norris [...] Moreno MD - 02/25/2022 10:00 AM EDT [id number] Isabelle Hewitt 1975 @PATFNAME@ @PATIENTLASTNAME@ [id number] Preoperative diagnosis: 1. Obstructive sleep apnea 2. [...] were discussed with the patient and/or legal phone representative. The risks, benefits and alternatives were reviewed. Questions regarding anesthesia were answered. Patient and/or legal phone representative knows such anesthetics and procedures may [...] were discussed with the patient and/or legal phone representative. The risks, benefits and alternatives were reviewed. Questions regarding blood transfusions were answered. The patient /or the patient s legal phone representative agree with the plan for transfusion of blood and/or blood components. documented in this [id number] NoteOTOLARYNGOLOGY HEAD AND NECK SURGERY DAILY PROGRESS [...] course uncomplicated. Patient transferred to [facility] from PACU. Mild anxiety overnight. No desaturations and pain overall well controlled. Patient on 2L NC when seen in the AM - Wean nc as tolerated - Monitor PO - Restart home meds - Discharge home today as appropriate ENT [id number] [facility] [id number] Note* Care Plan Note - Martínez Johnson [...] the patient will be met Outcome: Progressing KjzvzWzaqpq86-78-7778 NoteDISCHARGE SUMMARY [address] [address] Isabelle Hewitt Date of : 1975 46 [...] Your Medications These medications were sent to [id number] - [place], [place] - [address] [facility] [address] [place] [address] acetaminophen 650 MG CR tablet methylPREDNISolone 4 [...] documented in the resident's note. Wiley Lancaster [facility] Discharge instructions* Discharge Instructions* Unruly [...] be shared with your regular doctor. Isabelle Vallejoravindra [facility] [facility] [address] Phone numbers Date of Procedure: 02/25/22 Physicians: Dr. Yi Moreno (ENT) Admission Date: 02/25/2022 7:49 AM Discharge Date: No discharge date for patient encounter. Disposition: Home Home Care Agency: none Procedure that was performed: Uvulopalatopharyngoplasty (UPPP) Pending results: No pathology specimen was sent Call [phone] during regular daytime business hours (8:00 am - 5:00 pm) and after 5:00 pm call [phone] and ask to speak with the ENT Resident Hl7 Interface Developer with any questions or concerns. If it is a life-threatening situation, proceed to the nearest emergency department. Your Follow-up Appointment(s) Future Appointments Date Time Provider Department Center 03/29/2022 3:15 PM Yi Moreno MD [facility] Location: [facility] [place] [address] [place] [address] ([phone]) Thank you for the opportunity to care [...] a stool softener, they may be purchased duio-bov-mrljvpi at any local drugstore. Signs of Infection Signs of infection can include fever, excessive swelling, heat, drainage, redness, or severe pain. If you see any of these occur, please contact your doctor's office at [phone]. Any fever higherthan 100.4, especially if associated [...] opioids can be used to help relieve phlpayvu-kh-zxyhvy pain and are often prescribed following a [...] or Mental Health Mobile Crisis Help Line 948-988-1919 Narcotics Anonymous Center for Disease Control and Prevention www.cdc.gov 211 First Call For Help (14/03) 2-1-1 from phone OR [employer].C[employer]trak Falls Prevention Each year, 1 in every 3 adults over the age of 65 are treated for fall-related injuries. The risk of falling increases with each decade of life. The good news is, many falls are preventable. Here are some fall prevention tips: Exercise can increase strength and improve balance, making falls much less likely. For more informati on visit: http://[facility].org/services/vucq-haevak-ke-your-health/a-matte f-fn-xtzakvc/ Some medications or combinations of medications can [...] by the doctors and editors at [facility] What are the benefits of exercise? -- [...] of movement, like short walks or doing show host/hostess, can help improve your health. What else [...] process is complete. This topic retrieved from [employer] on: Mar 19, 2020. Topic 93409 Version 20.0 Release: 28.4.6 - C28.294 2019 [employer] and/or its affiliates. All rights reserved. Consumer [...] that is right for you.The use of [employer] content is governed by the [employer] Terms of Use. 2019 [employer]. All rights reserved. Copyright 2020 [employer] and/or its affiliates. All rights reserved. Reviewed April 2020 documented in this [id number] Note* Care Plan Note - Ashvin Mims [...] the patient will be met Outcome: Progressing PlkenMxhega15-70-8656 NoteAddendum created 02/25/22 1219 by Mariaa Meneses CAA Intraprocedure Staff editedThe [facility]07-07-[facility] History of Present illness Narrative* Ailyn Son [...] no areas of redness. documented in this [id number] NoteSurgical Attestation: I have reviewed the patient's History and Physical Examination. I have personally seen and evaluated the patient, repeating ulloa portions. There is no significant interval change. Surgery is still indicated. Yes Consent reviewed and signed by patient/family: Yes Operative site verified and marked: Yes Yi Moreno MD 02/25/2022 8:56 AMThe [facility]07-07-2022 Note* Brief Operative Note - Yi Moreno MD - 02/25/2022 10:00 AM EDT Brief Operative Note MAIN OR 11 Isabelle Hewitt 46 year old female Surgical Contact Serial Number: [id number] Preoperative Diagnosis: DIONNE (obstructive sleep apnea) [G47.33] Postoperative Diagnosis: * DIONNE (obstructive sleep apnea) [G47.33] Procedures: Surgical CPTs Procedures PALATOPHARYNGOPLASTY No data filed Surgeon(s): Surgeon(s): Yi Moreno MD Staff: Scrub: Wiley Álvarez Projection Printer Nurse: Mariaa Briseno; Dulce Allred; Babs Wells RN Automobile Dealer: Yi Piña MD; Unruly Biggs MD Anesthesia: Consult Anesthesiologist: Maite Youssef MD CAA: Mariaa Meneses CAA DIVE SUPERINTENDENT: Cari Hurtado APRN-KOBI Support Clerk: Carol Barrera MD Anesthesia Student: Prema Norris [...] by Yi Moreno MD 02/25/2022 10:40 AM [id number] Note* OP Note - Yi Moreno MD - 02/25/2022 10:00 AM EDT [id number] Isabelle Hewitt 1975 @PATFNAME@ @PATIENTLASTNAME@ [id number] Preoperative diagnosis: 1. Obstructive sleep apnea 2. [...] taken back to recovery in stable condition. AwsazAmkvqh96-77-3168 History and physical note* Yi Moreno MD [...] Yes Yi Moreno MD 02/25/2022 8:56 AM T [id number] History and physical note* Yi Moreno MD [...] MD 02/25/2022 8:56 AM documented in this [id number] Note* Anesthesia Attestation - Maite Youssef MD - 02/25/2022 8:52 AM EDT Anesthesia Attestation ATTESTATION OF INFORMED CONSENT FOR ANESTHESIA Anesthesia options were discussed with the patient and/or legal phone representative. The risks, benefits and alternatives were reviewed. Questions regarding anesthesia were answered. Patient and/or legal phone representative knows such anesthetics and procedures may be performed by Resident physicians, Certified Anesthesiologist Assistants, or Certified Nurse Anesthetists under the supervision of a physician. The patient /or the patient s legal representativeagree with the plan for anesthesia. [facility] Work Phone: 1(320) 560-662007-07-2022 Note* Blood Attestation - Maite Youssef MD - 02/25/2022 8:52 AM EDT Blood Attestation ATTESTATION OF INFORMED CONSENT FOR BLOOD The transfusion of blood and/or blood components were discussed with the patient and/or legal phone representative. The risks, benefits and alternatives were reviewed. Questions regarding blood transfusions were answered. The patient /or the patient s legal phone representative agree with the plan for transfusion of blood and/or blood components. [id number] Telephone encounter Note* Telephone Encounter - Camryn Dennis RN - 02/24/2022 7:19 AM EDT PSE received pre-op COVID test results - NOT DETECTED on 02/23/2022. Document scanned into [employer]. [id number] Miscellaneous Notes* Telephone Encounter - Camryn Dennis RN - 02/24/2022 7:19 AM EDT PSE received pre-op COVID test results - NOT DETECTED on 02/23/2022. Document scanned into [employer]. documented in this [id number] Telephone encounter Note* Telephone Encounter - Camryn Dennis RN - 02/17/2022 2:52 PM EDT Patient is scheduled for surgery 02/25/2022. Prefers to complete pre-op COVID testing closer to home.Instructed to obtain testing 48-72 hours prior to surgery and bring copy of results on day of surgery. PSE contact information provided, order faxed to [facility] per patient request. [id number] Miscellaneous Notes* Telephone Encounter - Camryn Dennis RN - 02/17/2022 2:52 PM EDT Patient is scheduled for surgery 02/25/2022. Prefers to complete pre-op COVID testing closer to home.Instructed to obtain testing 48-72 hours prior to surgery and bring copy of results on day of surgery. PSE contact information provided, order faxed to [facility] per patient request. documented in this [id number] Instructions* Patient Instructions* Pierce Ramos APRN-CNP - [...] for pain Please hold all Vitamin E, [place] 3, fish oil and herbal supplements for 1 week prior to surgery documented in this [id number] Note* PSE Appt H&P - Quinton Manzo - 02/16/2022 2:19 PM EDT Patient was identified by name and date of . Quinton Manzo Bill of rights provided to patient [id number] Miscellaneous Notes* PSE Appt H&P - Quinton Manzo - 02/16/2022 2:19 PM EDT Patient was identified by name and date of . Quinton Manzo Bill of rights provided to patient * PSE Appt H&P - Pierce Ramos APRN-CNP - 02/15/2022 2:46 PM EDT Presurgical Evaluation Isabelle Hewitt, [id number] 46 year old Female 02/17/2022 VITAL SIGNS: [...] Yes Does not use CPAP PS12/17/2021 at [facility] RESPIRATORY DATA INTEGRITY: Respiratory data integrity [...] (LIPITOR) 20 mg tablet EKG 12-LEAD TRACING [[id number]] PLAN: Documentation complete. Labs, Images, and Medications reviewed, and patient questions answered. Interviewer signature: ARTURO Rankin 8:00 AM 02/17/2022 documented in this [id number] NotePresurgical Evaluation Isabelle Hewitt, [id number] 46 year old Female 02/17/2022 VITAL SIGNS: [...] Yes Does not use CPAP PS12/17/2021 at [facility] RESPIRATORY DATA INTEGRITY: Respiratory data integrity [...] No result fo (more content not included)...[employer] [id number] Note * PSE Appt H&P - Pierce Ramos APRN-ROOM SERVICE FOOD SERVICE ATTENDANT - 02/15/2022 2:46 PM EDT Presurgical Evaluation Isabelle Hewitt, [id number] 46 year old Female 02/17/2022 VITAL SIGNS: [...] Yes Does not use CPAP PS12/17/2021 at [facility] RESPIRATORY DATA INTEGRITY: Respiratory data integrity [...] (LIPITOR) 20 mg tablet EKG 12-LEAD TRACING [[id number]] PLAN: Documentation complete. Labs, Images, and Medications reviewed, and patient questions answered. Interviewer signature: ARTURO Rankin 8:00 AM 02/17/2022 [id number] Telephone encounter Note* Telephone Encounter - Camryn Dennis RN - 02/11/2022 3:52 PM EDT Arrangements to be made for pre-op COVID testing per ENT request. [id number] Miscellaneous Notes* Telephone Encounter - Camryn Dennis RN - 02/11/2022 3:52 PM EDT Arrangements to be made for pre-op COVID testing per ENT request. documented in this [id number] History of Present illness Narrative* Yi Moreno [...] indicating an AHI of 63 with an H7ggmgo of 64% Sleep position: Side Mouth breather:y yeses previous sleep surgeries: no Other sleep disorders, such as insomnia/ kataplexy/ narcolepsy: yes, on andoff Bruxism: no tried oral appliance:edenetulous Questionnaires: Sodus sleep scale score: 18 FOSQ-10: HADS No [...] middle ear was aerated bilaterally. Clinical speech legal secretary receptionist thresholds grossly intact. No lesions/mass of [...] surgery. Patient's procedure [facility]. This is a difficult airway in [...] transfusion as discussed preoperatively. documented in this [id number] History of Present illness Narrative* Randa Yanes [...] or not. Verbalizes understanding. [facility] Phone: 1(301) 529-677705-17-2022 Hospital Discharge instructions* Instructions* Ade Easton RN [...] flush the urinary tract.) Call Dr. Hirsch ([phone]) if you develop: Fever over 100 degrees [...] Call Dr. Hirsch office for follow-up appointment ([phone]). documented in this [employer] Phone: 1(405) 515-398303-21-2022 Evaluation note* Encounter Date Diagnosis Assessment Notes [...] changes in symptoms and/or problems with treatment [employer] Other Chief complaint Narrative - ReportedISABELLE HEWITT is being seen for a consultation for abnormal test(s) results.-[facility] [employer] Work Phone: Evaluation note* Diagnosis Kidney stones Calculus of kidney documented in this encounter [employer] Phone: evaluation note* Diagnosis Pre-op testing Preoperative examination, unspecified documented in this encounter [employer] Phone: evaluation note* Diagnosis Ureteral calculus- Primary Calculus of ureter documented in this encounter [employer] Phone: evaluation note* Diagnosis DIONNE (obstructive sleep apnea)- Primary Obstructive sleep apnea (adult) (pediatric) Body mass index (BMI) 34.0-34.9, adult [facility] InformationVictoria [employer] Other evaluation note* Diagnosis DIONNE (obstructive sleep apnea)- [...] of ureter documented in [facility]up Phone: evaluation note* Diagnosis DIONNE (obstructive sleep apnea)- Primary Obstructive sleep apnea (adult) (pediatric) Encounter for laboratory testing for severe acute respiratory syndrome coronavirus 2 (SARS-CoV-2) Postoperative pain Other acute postoperative pain [facility] Diagnosis DIONNE (obstructive sleep apnea)- Primary Obstructive sleep apnea (adult) (pediatric) documented [facility] assessment information [facility] Work Phone: evalumzyap note* Diagnosis Obstructive sleep apnea- Primary Obstructive [...] note* Diagnosis Dysuria documented in this encounter [employer] Phone: evaluation note* Diagnosis Post-operative state- Primary Other postprocedural status [facility]* Diagnosis Post-operative state- Primary Other postprocedural status [facility]* Diagnosis OAB (overactive bladder) Hypertonicity of bladder Urge incontinence Frequency of urination Urinary frequency documented in this encounter [place] Phone: evaluation note* Diagnosis Onset Date Resolution Status Contact with and (suspected) exposure to covid-19 acute Influenza B noneactive Diarrhea acute Fecal urgency acute Alternating constipation and diarrhea acute Bloating acute Fecal urgency acute [facility] Work Phone: Evaluation note* Diagnosis Onset Date Resolution Status Constipation acute [facility] Work Phone: Evaluation note* Diagnosis Primary hypertension ([facility])- Primary Unspecified essential hypertension Hypokalemia Hypopotassemia Chronic diarrhea Diarrhea Weight loss, unintentional- Primary Loss of weight DINONE (obstructive sleep apnea) Obstructive sleep apnea (adult) (pediatric) Primary hypertension ([facility]) Unspecified essential hypertension Chronic diarrhea Diarrhea Other microscopic colitis ([facility]) Bipolar II disorder ([facility]) Other bipolar disorders Hypokalemia Hypopotassemia Anxiety state ([facility]) Anxiety state, unspecified Pre-operative clearance- Primary Unspecified pre-operative examination Primary hypertension ([facility]) Unspecified essential hypertension Hypokalemia Hypopotassemia Other specified hypothyroidism ([facility]) Herpes zoster without complication- Primary Overweight (BMI 25.0-29.9) Overweight Primary hypertension ([facility])- Primary Unspecified essential hypertension Hypokalemia Hypopotassemia DIONNE (obstructive sleep apnea) Obstructive sleep apnea (adult) (pediatric) Other microscopic colitis ([facility]) Irritable bowel syndrome with diarrhea Irritable bowel syndrome Overweight (BMI 25.0-29.9) Overweight Generalized anxiety disorder with panic attacks ([facility]) Bipolar II disorder ([facility]) Other bipolar disorders Mixed hyperlipidemia ([facility]) Mixed hyperlipidemia documented [facility]* Diagnosis Primary hypertension ([facility])- Primary Unspecified essential hypertension Hypokalemia Hypopotassemia Chronic diarrhea Diarrhea Weight loss, unintentional- Primary Loss of weight DIONNE (obstructive sleep apnea) Obstructive sleep apnea (adult) (pediatric) Primary hypertension ([facility]) Unspecified essential hypertension Chronic diarrhea Diarrhea Other microscopic colitis ([facility]) Bipolar II disorder ([facility]) Other bipolar disorders Hypokalemia Hypopotassemia Anxiety state ([facility]) Anxiety state, unspecified Pre-operative clearance- Primary Unspecified pre-operative examination Primary hypertension ([facility]) Unspecified essential hypertension Hypokalemia Hypopotassemia Other specified hypothyroidism ([facility]) Herpes zoster without complication- Primary Overweight (BMI 25.0-29.9) Overweight Primary hypertension (CMS/HCC)- Primary Unspecified essential hypertension Hypokalemia Hypopotassemia DIONNE (obstructive sleep apnea) Obstructive sleep apnea (adult) (pediatric) Other microscopic colitis (CMS/HCC) Irritable bowel syndrome with diarrhea Irritable bowel syndrome Overweight (BMI 25.0-29.9) Overweight Generalized anxiety disorder with panic attacks (CMS/HCC) Bipolar II disorder (CMS/HCC) Other bipolar disorders Mixed hyperlipidemia (CMS/HCC) Mixed hyperlipidemia Complex ovarian cyst Night sweats Generalized hyperhidrosis documented in this encounter [facility] HealthcareEvaluation [facility]* Diagnosis Herpes zoster without complication- Primary Overweight (BMI 25.0-29.9) Overweight documented in this encounter [facility]* Diagnosis Acute URI- Primary Acute upper respiratory infections of unspecified site Overweight (BMI 25.0-29.9) Overweight documented in this encounter [facility]* Diagnosis Primary hypertension ([facility]/HCC)- Primary Unspecified essential hypertension Hypokalemia Hypopotassemia Chronic diarrhea Diarrhea Weight loss, unintentional- Primary Loss of weight DIONNE (obstructive sleep apnea) Obstructive sleep apnea (adult) (pediatric) Primary hypertension ([facility]) Unspecified essential hypertension Chronic diarrhea Diarrhea Other microscopic colitis (CMS/HCC) Bipolar II disorder (CMS/HCC) Other bipolar disorders Hypokalemia Hypopotassemia Anxiety state ([facility]) Anxiety state, unspecified Pre-operative clearance- Primary Unspecified pre-operative examination Primary hypertension ([facility]/HCC) Unspecified essential hypertension Hypokalemia Hypopotassemia Other specified hypothyroidism (CMS/HCC) Herpes zoster without complication- Primary Overweight (BMI 25.0-29.9) Overweight Primary hypertension ([facility]/HCC)- Primary Unspecified essential hypertension Hypokalemia Hypopotassemia DIONNE (obstructive sleep apnea) Obstructive sleep apnea (adult) (pediatric) Other microscopic colitis (CMS/HCC) Irritable bowel syndrome with diarrhea Irritable bowel syndrome Overweight (BMI 25.0-29.9) Overweight Generalized anxiety disorder with panic attacks (CMS/HCC) Bipolar II disorder (CMS/HCC) Other bipolar disorders Mixed hyperlipidemia ([facility]/HCC) Mixed hyperlipidemia Hypokalemia Hypopotassemia documented in this encounter [facility] HealthcareEvaluation note* Diagnosis Dysuria documented in this encounter [facility]* Diagnosis Primary hypertension ([facility]/HCC)- Primary Unspecified essential hypertension Hypokalemia Hypopotassemia Chronic diarrhea Diarrhea Weight loss, unintentional- Primary Loss of weight DIONNE (obstructive sleep apnea) Obstructive sleep apnea (adult) (pediatric) Primary hypertension ([facility]/HCC) Unspecified essential hypertension Chronic diarrhea Diarrhea Other microscopic colitis (CMS/HCC) Bipolar II disorder ([facility]/HCC) Other bipolar disorders Hypokalemia Hypopotassemia Anxiety state ([facility]) Anxiety state, unspecified Pre-operative clearance- Primary Unspecified pre-operative examination Primary hypertension ([facility]) Unspecified essential hypertension Hypokalemia Hypopotassemia Other specified hypothyroidism ([facility]/HCC) Herpes zoster without complication- Primary Overweight (BMI 25.0-29.9) Overweight Primary hypertension ([facility])- Primary Unspecified essential hypertension Hypokalemia Hypopotassemia DIONNE (obstructive sleep apnea) Obstructive sleep apnea (adult) (pediatric) Other microscopic colitis ([facility]/HCC) Irritable bowel syndrome with diarrhea Irritable bowel syndrome Overweight (BMI 25.0-29.9) Overweight Generalized anxiety disorder with panic attacks ([facility]) Bipolar II disorder ([facility]) Other bipolar disorders Mixed hyperlipidemia ([facility]) Mixed hyperlipidemia Generalized abdominal pain- Primary Abdominal pain, generalized Bipolar II disorder ([facility]/HCC) Other bipolar disorders Primary hypertension ([facility]) Unspecified essential hypertension Overweight (BMI 25.0-29.9) Overweight Generalized anxiety disorder with panic attacks ([facility]/HCC) Other specified hypothyroidism ([facility]) Viral upper respiratory tract infection Acute upper respiratory infections of unspecified site Subacute cough Irritable bowel syndrome with diarrhea Irritable bowel syndrome Weakness generalized Other malaise and fatigue documented in [facility] encounter [facility]* Diagnosis Primary hypertension ([facility])- Primary Unspecified essential hypertension Hypokalemia Hypopotassemia Chronic diarrhea Diarrhea Weight loss, unintentional- Primary Loss of weight DIONNE (obstructive sleep apnea) Obstructive sleep apnea (adult) (pediatric) Primary hypertension ([facility]) Unspecified essential hypertension Chronic diarrhea Diarrhea Other microscopic colitis (CMS/HCC) Bipolar II disorder ([facility]) Other bipolar disorders Hypokalemia Hypopotassemia Anxiety state ([facility]) Anxiety state, unspecified Pre-operative clearance- Primary Unspecified pre-operative examination Primary hypertension ([facility]) Unspecified essential hypertension Hypokalemia Hypopotassemia Other specified hypothyroidism ([facility]) Herpes zoster without complication- Primary Overweight (BMI 25.0-29.9) Overweight Primary hypertension (CMS/HCC)- Primary Unspecified essential hypertension Hypokalemia Hypopotassemia DIONNE (obstructive sleep apnea) Obstructive sleep apnea (adult) (pediatric) Other microscopic colitis (CMS/HCC) Irritable bowel syndrome with diarrhea Irritable bowel syndrome Overweight (BMI 25.0-29.9) Overweight Generalized anxiety disorder with panic attacks (CMS/HCC) Bipolar II disorder (CMS/HCC) Other bipolar disorders Mixed hyperlipidemia (CMS/HCC) Mixed hyperlipidemia Generalized abdominal pain- Primary Abdominal pain, generalized Bipolar II disorder (CMS/HCC) Other bipolar disorders Primary hypertension (CMS/HCC) Unspecified essential hypertension Overweight (BMI 25.0-29.9) Overweight Generalized anxiety disorder with panic attacks (CMS/HCC) Other specified hypothyroidism (CMS/HCC) Viral upper respiratory tract infection Acute upper respiratory infections of unspecified site Subacute cough Irritable bowel syndrome with diarrhea Irritable bowel syndrome Weakness generalized Other malaise and fatigue Nausea- Primary Nausea alone documented in [facility] encounter [facility]* Diagnosis Primary hypertension ([facility]/HCC)- Primary Unspecified essential hypertension Hypokalemia Hypopotassemia Chronic diarrhea Diarrhea Weight loss, unintentional- Primary Loss of weight DIONNE (obstructive sleep apnea) Obstructive sleep apnea (adult) (pediatric) Primary hypertension (CMS/HCC) Unspecified essential hypertension Chronic diarrhea Diarrhea Other microscopic colitis (CMS/HCC) Bipolar II disorder (CMS/HCC) Other bipolar disorders Hypokalemia Hypopotassemia Anxiety state (CMS/HCC) Anxiety state, unspecified Pre-operative clearance- Primary Unspecified pre-operative examination Primary hypertension (CMS/HCC) Unspecified essential hypertension Hypokalemia Hypopotassemia Other specified hypothyroidism (CMS/HCC) Herpes zoster without complication- Primary Overweight (BMI 25.0-29.9) Overweight Primary hypertension (CMS/HCC)- Primary Unspecified essential hypertension Hypokalemia Hypopotassemia DIONNE (obstructive sleep apnea) Obstructive sleep apnea (adult) (pediatric) Other microscopic colitis (CMS/HCC) Irritable bowel syndrome with diarrhea Irritable bowel syndrome Overweight (BMI 25.0-29.9) Overweight Generalized anxiety disorder with panic attacks (CMS/HCC) Bipolar II disorder (CMS/HCC) Other bipolar disorders Mixed hyperlipidemia (CMS/HCC) Mixed hyperlipidemia Generalized abdominal pain- Primary Abdominal pain, generalized Bipolar II disorder (CMS/HCC) Other bipolar disorders Primary hypertension (CMS/HCC) Unspecified essential hypertension Overweight (BMI 25.0-29.9) Overweight Generalized anxiety disorder with panic attacks ([facility]/HCC) Other specified hypothyroidism ([facility]) Viral upper respiratory tract infection Acute upper respiratory infections of unspecified site Subacute cough Irritable bowel syndrome with diarrhea Irritable bowel syndrome Weakness generalized Other malaise and fatigue Nausea Nausea alone documented in [facility] encounter [facility]* Diagnosis Primary hypertension ([facility])- Primary Unspecified essential hypertension Hypokalemia Hypopotassemia Chronic diarrhea Diarrhea Weight loss, unintentional- Primary Loss of weight DIONNE (obstructive sleep apnea) Obstructive sleep apnea (adult) (pediatric) Primary hypertension ([facility]) Unspecified essential hypertension Chronic diarrhea Diarrhea Other microscopic colitis ([facility] Bipolar II disorder ([facility]) Other bipolar disorders Hypokalemia Hypopotassemia Anxiety state ([facility]) Anxiety state, unspecified Pre-operative clearance- Primary Unspecified pre-operative examination Primary hypertension ([facility]) Unspecified essential hypertension Hypokalemia Hypopotassemia Other specified hypothyroidism ([facility]) Herpes zoster without complication- Primary Overweight (BMI 25.0-29.9) Overweight Primary hypertension ([facility])- Primary Unspecified essential hypertension Hypokalemia Hypopotassemia DIONNE (obstructive sleep apnea) Obstructive sleep apnea (adult) (pediatric) Other microscopic colitis ([facility]/HCC) Irritable bowel syndrome with diarrhea Irritable bowel syndrome Overweight (BMI 25.0-29.9) Overweight Generalized anxiety disorder with panic attacks ([facility]/HCC) Bipolar II disorder ([facility]) Other bipolar disorders Mixed hyperlipidemia ([facility]) Mixed hyperlipidemia Generalized abdominal pain- Primary Abdominal pain, generalized Bipolar II disorder ([facility]/HCC) Other bipolar disorders Primary hypertension ([facility]) Unspecified essential hypertension Overweight (BMI 25.0-29.9) Overweight Generalized anxiety disorder with panic attacks ([facility]/HCC) Other specified hypothyroidism ([facility]) Viral upper respiratory tract infection Acute upper respiratory infections of unspecified site Subacute cough Irritable bowel syndrome with diarrhea Irritable bowel syndrome Weakness generalized Other malaise and fatigue Urinary tract infection without hematuria, site unspecified- Primary documented in [facility] encounter [facility]* Diagnosis Primary hypertension ([facility])- Primary Unspecified essential hypertension Hypokalemia Hypopotassemia Chronic diarrhea Diarrhea Weight loss, unintentional- Primary Loss of weight DIONNE (obstructive sleep apnea) Obstructive sleep apnea (adult) (pediatric) Primary hypertension (CMS/HCC) Unspecified essential hypertension Chronic diarrhea Diarrhea Other microscopic colitis (CMS/HCC) Bipolar II disorder (CMS/HCC) Other bipolar disorders Hypokalemia Hypopotassemia Anxiety state (CMS/HCC) Anxiety state, unspecified Pre-operative clearance- Primary Unspecified pre-operative examination Primary hypertension (CMS/HCC) Unspecified essential hypertension Hypokalemia Hypopotassemia Other specified hypothyroidism (CMS/HCC) Herpes zoster without complication- Primary Overweight (BMI 25.0-29.9) Overweight Primary hypertension (CMS/HCC)- Primary Unspecified essential hypertension Hypokalemia Hypopotassemia DIONNE (obstructive sleep apnea) Obstructive sleep apnea (adult) (pediatric) Other microscopic colitis (CMS/HCC) Irritable bowel syndrome with diarrhea Irritable bowel syndrome Overweight (BMI 25.0-29.9) Overweight Generalized anxiety disorder with panic attacks (CMS/HCC) Bipolar II disorder (CMS/HCC) Other bipolar disorders Mixed hyperlipidemia (CMS/HCC) Mixed hyperlipidemia Generalized abdominal pain- Primary Abdominal pain, generalized Bipolar II disorder (CMS/HCC) Other bipolar disorders Primary hypertension ([facility]/HCC) Unspecified essential hypertension Overweight (BMI 25.0-29.9) Overweight Generalized anxiety disorder with panic attacks (CMS/HCC) Other specified hypothyroidism (CMS/HCC) Viral upper respiratory tract infection Acute upper respiratory infections of unspecified site Subacute cough Irritable bowel syndrome with diarrhea Irritable bowel syndrome Weakness generalized Other malaise and fatigue Generalized abdominal pain- Primary Abdominal pain, generalized Primary hypertension (CMS/HCC) Unspecified essential hypertension Mixed hyperlipidemia ([facility]) Mixed hyperlipidemia Irritable bowel syndrome with diarrhea Irritable bowel syndrome Nausea Nausea alone Urinary tract infection without hematuria, site unspecified Generalized anxiety disorder with panic attacks ([facility]/HCC) Depression with anxiety Dysthymic disorder documented in this encounter [facility]* Diagnosis Primary hypertension ([facility])- Primary Unspecified essential hypertension Hypokalemia Hypopotassemia Chronic diarrhea Diarrhea Weight loss, unintentional- Primary Loss of weight DIONNE (obstructive sleep apnea) Obstructive sleep apnea (adult) (pediatric) Primary hypertension ([facility]/HCC) Unspecified essential hypertension Chronic diarrhea Diarrhea Other microscopic colitis (CMS/HCC) Bipolar II disorder (CMS/HCC) Other bipolar disorders Hypokalemia Hypopotassemia Anxiety state ([facility]) Anxiety state, unspecified Pre-operative clearance- Primary Unspecified pre-operative examination Primary hypertension (CMS/HCC) Unspecified essential hypertension Hypokalemia Hypopotassemia Other specified hypothyroidism (CMS/HCC) Herpes zoster without complication- Primary Overweight (BMI 25.0-29.9) Overweight Primary hypertension (CMS/HCC)- Primary Unspecified essential hypertension Hypokalemia Hypopotassemia DIONNE (obstructive sleep apnea) Obstructive sleep apnea (adult) (pediatric) Other microscopic colitis (CMS/HCC) Irritable bowel syndrome with diarrhea Irritable bowel syndrome Overweight (BMI 25.0-29.9) Overweight Generalized anxiety disorder with panic attacks (CMS/HCC) Bipolar II disorder (CMS/HCC) Other bipolar disorders Mixed hyperlipidemia (CMS/HCC) Mixed hyperlipidemia Generalized abdominal pain- Primary Abdominal pain, generalized Bipolar II disorder (CMS/HCC) Other bipolar disorders Primary hypertension (CMS/HCC) Unspecified essential hypertension Overweight (BMI 25.0-29.9) Overweight Generalized anxiety disorder with panic attacks (CMS/HCC) Other specified hypothyroidism (CMS/HCC) Viral upper respiratory tract infection Acute upper respiratory infections of unspecified site Subacute cough Irritable bowel syndrome with diarrhea Irritable bowel syndrome Weakness generalized Other malaise and fatigue Generalized abdominal pain- Primary Abdominal pain, generalized Primary hypertension (CMS/HCC) Unspecified essential hypertension Mixed hyperlipidemia (CMS/HCC) Mixed hyperlipidemia Irritable bowel syndrome with diarrhea Irritable bowel syndrome Nausea Nausea alone Urinary tract infection without hematuria, site unspecified Generalized anxiety disorder with panic attacks (CMS/HCC) Depression with anxiety Dysthymic disorder Acute pain of right shoulder- Primary Overweight (BMI 25.0-29.9) Overweight Acute pain of right shoulder- Primary documented in this encounter [facility]* Diagnosis Primary hypertension (CMS/HCC)- Primary Unspecified essential hypertension Hypokalemia Hypopotassemia Chronic diarrhea Diarrhea Weight loss, unintentional- Primary Loss of weight DIONNE (obstructive sleep apnea) Obstructive sleep apnea (adult) (pediatric) Primary hypertension (CMS/HCC) Unspecified essential hypertension Chronic diarrhea Diarrhea Other microscopic colitis (CMS/HCC) Bipolar II disorder (CMS/HCC) Other bipolar disorders Hypokalemia Hypopotassemia Anxiety state (CMS/HCC) Anxiety state, unspecified Pre-operative clearance- Primary Unspecified pre-operative examination Primary hypertension (CMS/HCC) Unspecified essential hypertension Hypokalemia Hypopotassemia Other specified hypothyroidism (CMS/HCC) Herpes zoster without complication- Primary Overweight (BMI 25.0-29.9) Overweight Primary hypertension (CMS/HCC)- Primary Unspecified essential hypertension Hypokalemia Hypopotassemia DIONNE (obstructive sleep apnea) Obstructive sleep apnea (adult) (pediatric) Other microscopic colitis (CMS/HCC) Irritable bowel syndrome with diarrhea Irritable bowel syndrome Overweight (BMI 25.0-29.9) Overweight Generalized anxiety disorder with panic attacks (CMS/HCC) Bipolar II disorder (CMS/HCC) Other bipolar disorders Mixed hyperlipidemia (CMS/HCC) Mixed hyperlipidemia Generalized abdominal pain- Primary Abdominal pain, generalized Bipolar II disorder (CMS/HCC) Other bipolar disorders Primary hypertension (CMS/[facility]) Unspecified essential hypertension Overweight (BMI 25.0-29.9) Overweight Generalized anxiety disorder with panic attacks (CMS/HCC) Other specified hypothyroidism ([facility]) Viral upper respiratory tract infection Acute upper respiratory infections of unspecified site Subacute cough Irritable bowel syndrome with diarrhea Irritable bowel syndrome Weakness generalized Other malaise and fatigue Generalized abdominal pain- Primary Abdominal pain, generalized Primary hypertension ([facility]) Unspecified essential hypertension Mixed hyperlipidemia ([facility]) Mixed hyperlipidemia Irritable bowel syndrome with diarrhea Irritable bowel syndrome Nausea Nausea alone Urinary tract infection without hematuria, site unspecified Generalized anxiety disorder with panic attacks ([facility]) Depression with anxiety Dysthymic disorder Acute pain of right shoulder- Primary Overweight (BMI 25.0-29.9) Overweight Acute pain of right shoulder documented in this encounter [facility]* Diagnosis Primary hypertension ([facility])- Primary Unspecified essential hypertension Hypokalemia Hypopotassemia Chronic diarrhea Diarrhea Weight loss, unintentional- Primary Loss of weight DIONNE (obstructive sleep apnea) Obstructive sleep apnea (adult) (pediatric) Primary hypertension ([facility]) Unspecified essential hypertension Chronic diarrhea Diarrhea Other microscopic colitis Bipolar II disorder ([facility]) Other bipolar disorders Hypokalemia Hypopotassemia Anxiety state ([facility]) Anxiety state, unspecified Pre-operative clearance- Primary Unspecified pre-operative examination Primary hypertension ([facility]) Unspecified essential hypertension Hypokalemia Hypopotassemia Other specified hypothyroidism Herpes zoster without complication- Primary Overweight (BMI 25.0-29.9) Overweight Primary hypertension ([facility]/HCC)- Primary Unspecified essential hypertension Hypokalemia Hypopotassemia DIONNE (obstructive sleep apnea) Obstructive sleep apnea (adult) (pediatric) Other microscopic colitis Irritable bowel syndrome with diarrhea Irritable bowel syndrome Overweight (BMI 25.0-29.9) Overweight Generalized anxiety disorder with panic attacks (CMS/HCC) Bipolar II disorder (CMS/HCC) Other bipolar disorders Mixed hyperlipidemia (CMS/HCC) Mixed hyperlipidemia Generalized abdominal pain- Primary Abdominal pain, generalized Bipolar II disorder (CMS/HCC) Other bipolar disorders Primary hypertension (CMS/HCC) Unspecified essential hypertension Overweight (BMI 25.0-29.9) Overweight Generalized anxiety disorder with panic attacks (CMS/HCC) Other specified hypothyroidism Viral upper respiratory tract infection Acute upper respiratory infections of unspecified site Subacute cough Irritable bowel syndrome with diarrhea Irritable bowel syndrome Weakness generalized Other malaise and fatigue Generalized abdominal pain- Primary Abdominal pain, generalized Primary hypertension (CMS/HCC) Unspecified essential hypertension Mixed hyperlipidemia (CMS/HCC) Mixed hyperlipidemia Irritable bowel syndrome with diarrhea Irritable bowel syndrome Nausea Nausea alone Urinary tract infection without hematuria, site unspecified Generalized anxiety disorder with panic attacks ([facility]/HCC) Depression with anxiety Dysthymic disorder Acute pain of right shoulder- Primary Overweight (BMI 25.0-29.9) Overweight Acute pain of right shoulder- Primary documented in this encounter [facility]* Diagnosis Primary hypertension ([facility])- Primary Unspecified essential hypertension Hypokalemia Hypopotassemia Chronic diarrhea Diarrhea Weight loss, unintentional- Primary Loss of weight DIONNE (obstructive sleep apnea) Obstructive sleep apnea (adult) (pediatric) Primary hypertension ([facility]) Unspecified essential hypertension Chronic diarrhea Diarrhea Other microscopic colitis Bipolar II disorder ([facility]/HCC) Other bipolar disorders Hypokalemia Hypopotassemia Anxiety state ([facility]) Anxiety state, unspecified Pre-operative clearance- Primary Unspecified pre-operative examination Primary hypertension ([facility]) Unspecified essential hypertension Hypokalemia Hypopotassemia Other specified hypothyroidism Herpes zoster without complication- Primary Overweight (BMI 25.0-29.9) Overweight Primary hypertension ([facility]/HCC)- Primary Unspecified essential hypertension Hypokalemia Hypopotassemia DIONNE (obstructive sleep apnea) Obstructive sleep apnea (adult) (pediatric) Other microscopic colitis Irritable bowel syndrome with diarrhea Irritable bowel syndrome Overweight (BMI 25.0-29.9) Overweight Generalized anxiety disorder with panic attacks (CMS/HCC) Bipolar II disorder (CMS/HCC) Other bipolar disorders Mixed hyperlipidemia (CMS/HCC) Mixed hyperlipidemia Generalized abdominal pain- Primary Abdominal pain, generalized Bipolar II disorder (CMS/HCC) Other bipolar disorders Primary hypertension (CMS/HCC) Unspecified essential hypertension Overweight (BMI 25.0-29.9) Overweight Generalized anxiety disorder with panic attacks (CMS/HCC) Other specified hypothyroidism Viral upper respiratory tract infection Acute upper respiratory infections of unspecified site Subacute cough Irritable bowel syndrome with diarrhea Irritable bowel syndrome Weakness generalized Other malaise and fatigue Generalized abdominal pain- Primary Abdominal pain, generalized Primary hypertension (CMS/HCC) Unspecified essential hypertension Mixed hyperlipidemia (CMS/HCC) Mixed hyperlipidemia Irritable bowel syndrome with diarrhea Irritable bowel syndrome Nausea Nausea alone Urinary tract infection without hematuria, site unspecified Generalized anxiety disorder with panic attacks (CMS/HCC) Depression with anxiety Dysthymic disorder Acute pain of right shoulder- Primary Overweight (BMI 25.0-29.9) Overweight Acute pain of right shoulder- Primary Well woman exam with routine gynecological exam Routine gynecological examination Encounter for screening mammogram for malignant neoplasm of breast documented in this encounter [facility]* Diagnosis Primary hypertension ([facility])- Primary Unspecified essential hypertension Hypokalemia Hypopotassemia Chronic diarrhea Diarrhea Weight loss, unintentional- Primary Loss of weight DIONNE (obstructive sleep apnea) Obstructive sleep apnea (adult) (pediatric) Primary hypertension (CMS/HCC) Unspecified essential hypertension Chronic diarrhea Diarrhea Other microscopic colitis Bipolar II disorder (CMS/HCC) Other bipolar disorders Hypokalemia Hypopotassemia Anxiety state (CMS/HCC) Anxiety state, unspecified Pre-operative clearance- Primary Unspecified pre-operative examination Primary hypertension (CMS/HCC) Unspecified essential hypertension Hypokalemia Hypopotassemia Other specified hypothyroidism Herpes zoster without complication- Primary Overweight (BMI 25.0-29.9) Overweight Primary hypertension (CMS/HCC)- Primary Unspecified essential hypertension Hypokalemia Hypopotassemia DIONNE (obstructive sleep apnea) Obstructive sleep apnea (adult) (pediatric) Other microscopic colitis Irritable bowel syndrome with diarrhea Irritable bowel syndrome Overweight (BMI 25.0-29.9) Overweight Generalized anxiety disorder with panic attacks (CMS/HCC) Bipolar II disorder (CMS/HCC) Other bipolar disorders Mixed hyperlipidemia (CMS/HCC) Mixed hyperlipidemia Generalized abdominal pain- Primary Abdominal pain, generalized Bipolar II disorder (CMS/HCC) Other bipolar disorders Primary hypertension (CMS/HCC) Unspecified essential hypertension Overweight (BMI 25.0-29.9) Overweight Generalized anxiety disorder with panic attacks (CMS/HCC) Other specified hypothyroidism Viral upper respiratory tract infection Acute upper respiratory infections of unspecified site Subacute cough Irritable bowel syndrome with diarrhea Irritable bowel syndrome Weakness generalized Other malaise and fatigue Generalized abdominal pain- Primary Abdominal pain, generalized Primary hypertension (CMS/HCC) Unspecified essential hypertension Mixed hyperlipidemia (CMS/HCC) Mixed hyperlipidemia Irritable bowel syndrome with diarrhea Irritable bowel syndrome Nausea Nausea alone Urinary tract infection without hematuria, site unspecified Generalized anxiety disorder with panic attacks (CMS/HCC) Depression with anxiety Dysthymic disorder Acute pain of right shoulder- Primary Overweight (BMI 25.0-29.9) Overweight Acute pain of right shoulder- Primary Primary hypertension (CMS/HCC) Unspecified essential hypertension documented in this encounter [facility]* Diagnosis Primary hypertension (CMS/HCC)- Primary Unspecified essential hypertension Hypokalemia Hypopotassemia Chronic diarrhea Diarrhea Weight loss, unintentional- Primary Loss of weight DIONNE (obstructive sleep apnea) Obstructive sleep apnea (adult) (pediatric) Primary hypertension (CMS/HCC) Unspecified essential hypertension Chronic diarrhea Diarrhea Other microscopic colitis Bipolar II disorder (CMS/HCC) Other bipolar disorders Hypokalemia Hypopotassemia Anxiety state (CMS/HCC) Anxiety state, unspecified Pre-operative clearance- Primary Unspecified pre-operative examination Primary hypertension (CMS/HCC) Unspecified essential hypertension Hypokalemia Hypopotassemia Other specified hypothyroidism Herpes zoster without complication- Primary Overweight (BMI 25.0-29.9) Overweight Primary hypertension (CMS/HCC)- Primary Unspecified essential hypertension Hypokalemia Hypopotassemia DIONNE (obstructive sleep apnea) Obstructive sleep apnea (adult) (pediatric) Other microscopic colitis Irritable bowel syndrome with diarrhea Irritable bowel syndrome Overweight (BMI 25.0-29.9) Overweight Generalized anxiety disorder with panic attacks (CMS/HCC) Bipolar II disorder (CMS/HCC) Other bipolar disorders Mixed hyperlipidemia (CMS/HCC) Mixed hyperlipidemia Generalized abdominal pain- Primary Abdominal pain, generalized Bipolar II disorder (CMS/HCC) Other bipolar disorders Primary hypertension (CMS/HCC) Unspecified essential hypertension Overweight (BMI 25.0-29.9) Overweight Generalized anxiety disorder with panic attacks (CMS/HCC) Other specified hypothyroidism Viral upper respiratory tract infection Acute upper respiratory infections of unspecified site Subacute cough Irritable bowel syndrome with diarrhea Irritable bowel syndrome Weakness generalized Other malaise and fatigue Generalized abdominal pain- Primary Abdominal pain, generalized Primary hypertension (CMS/HCC) Unspecified essential hypertension Mixed hyperlipidemia (CMS/HCC) Mixed hyperlipidemia Irritable bowel syndrome with diarrhea Irritable bowel syndrome Nausea Nausea alone Urinary tract infection without hematuria, site unspecified Generalized anxiety disorder with panic attacks (CMS/HCC) Depression with anxiety Dysthymic disorder Acute pain of right shoulder- Primary Overweight (BMI 25.0-29.9) Overweight Acute pain of right shoulder- Primary Acute pain of right shoulder- Primary documented in this encounter [facility]* Diagnosis Primary hypertension ([facility])- Primary Unspecified essential hypertension Hypokalemia Hypopotassemia Chronic diarrhea Diarrhea Weight loss, unintentional- Primary Loss of weight DIONNE (obstructive sleep apnea) Obstructive sleep apnea (adult) (pediatric) Primary hypertension ([facility]) Unspecified essential hypertension Chronic diarrhea Diarrhea Other microscopic colitis Bipolar II disorder (CMS/HCC) Other bipolar disorders Hypokalemia Hypopotassemia Anxiety state (CMS/[facility]) Anxiety state, unspecified Pre-operative clearance- Primary Unspecified pre-operative examination Primary hypertension ([facility]) Unspecified essential hypertension Hypokalemia Hypopotassemia Other specified hypothyroidism Herpes zoster without complication- Primary Overweight (BMI 25.0-29.9) Overweight Primary hypertension ([facility]/HCC)- Primary Unspecified essential hypertension Hypokalemia Hypopotassemia DIONNE (obstructive sleep apnea) Obstructive sleep apnea (adult) (pediatric) Other microscopic colitis Irritable bowel syndrome with diarrhea Irritable bowel syndrome Overweight (BMI 25.0-29.9) Overweight Generalized anxiety disorder with panic attacks (CMS/HCC) Bipolar II disorder (CMS/HCC) Other bipolar disorders Mixed hyperlipidemia (CMS/HCC) Mixed hyperlipidemia Generalized abdominal pain- Primary Abdominal pain, generalized Bipolar II disorder (CMS/HCC) Other bipolar disorders Primary hypertension (CMS/HCC) Unspecified essential hypertension Overweight (BMI 25.0-29.9) Overweight Generalized anxiety disorder with panic attacks (CMS/HCC) Other specified hypothyroidism Viral upper respiratory tract infection Acute upper respiratory infections of unspecified site Subacute cough Irritable bowel syndrome with diarrhea Irritable bowel syndrome Weakness generalized Other malaise and fatigue Generalized abdominal pain- Primary Abdominal pain, generalized Primary hypertension (CMS/HCC) Unspecified essential hypertension Mixed hyperlipidemia (CMS/HCC) Mixed hyperlipidemia Irritable bowel syndrome with diarrhea Irritable bowel syndrome Nausea Nausea alone Urinary tract infection without hematuria, site unspecified Generalized anxiety disorder with panic attacks (CMS/HCC) Depression with anxiety Dysthymic disorder Acute pain of right shoulder- Primary Overweight (BMI 25.0-29.9) Overweight Acute pain of right shoulder- Primary Other specified hypothyroidism documented in this encounter [facility] note* Diagnosis Primary hypertension (CMS/HCC)- Primary Unspecified essential hypertension Hypokalemia Hypopotassemia Chronic diarrhea Diarrhea Weight loss, unintentional- Primary Loss of weight DIONNE (obstructive sleep apnea) Obstructive sleep apnea (adult) (pediatric) Primary hypertension (CMS/HCC) Unspecified essential hypertension Chronic diarrhea Diarrhea Other microscopic colitis Bipolar II disorder (CMS/HCC) Other bipolar disorders Hypokalemia Hypopotassemia Anxiety state (CMS/HCC) Anxiety state, unspecified Pre-operative clearance- Primary Unspecified pre-operative examination Primary hypertension (CMS/HCC) Unspecified essential hypertension Hypokalemia Hypopotassemia Other specified hypothyroidism Herpes zoster without complication- Primary Overweight (BMI 25.0-29.9) Overweight Primary hypertension (CMS/HCC)- Primary Unspecified essential hypertension Hypokalemia Hypopotassemia DIONNE (obstructive sleep apnea) Obstructive sleep apnea (adult) (pediatric) Other microscopic colitis Irritable bowel syndrome with diarrhea Irritable bowel syndrome Overweight (BMI 25.0-29.9) Overweight Generalized anxiety disorder with panic attacks (CMS/HCC) Bipolar II disorder (CMS/HCC) Other bipolar disorders Mixed hyperlipidemia (CMS/HCC) Mixed hyperlipidemia Generalized abdominal pain- Primary Abdominal pain, generalized Bipolar II disorder (CMS/HCC) Other bipolar disorders Primary hypertension (CMS/HCC) Unspecified essential hypertension Overweight (BMI 25.0-29.9) Overweight Generalized anxiety disorder with panic attacks (CMS/HCC) Other specified hypothyroidism Viral upper respiratory tract infection Acute upper respiratory infections of unspecified site Subacute cough Irritable bowel syndrome with diarrhea Irritable bowel syndrome Weakness generalized Other malaise and fatigue Generalized abdominal pain- Primary Abdominal pain, generalized Primary hypertension (CMS/HCC) Unspecified essential hypertension Mixed hyperlipidemia (CMS/HCC) Mixed hyperlipidemia Irritable bowel syndrome with diarrhea Irritable bowel syndrome Nausea Nausea alone Urinary tract infection without hematuria, site unspecified Generalized anxiety disorder with panic attacks (CMS/HCC) Depression with anxiety Dysthymic disorder Acute pain of right shoulder- Primary Overweight (BMI 25.0-29.9) Overweight Acute pain of right shoulder- Primary Acute pain of right shoulder- Primary documented in this encounter [facility]Evaluation note* Diagnosis Primary hypertension (CMS/HCC)- Primary Unspecified essential hypertension Hypokalemia Hypopotassemia Chronic diarrhea Diarrhea Weight loss, unintentional- Primary Loss of weight DIONNE (obstructive sleep apnea) Obstructive sleep apnea (adult) (pediatric) Primary hypertension ([facility]) Unspecified essential hypertension Chronic diarrhea Diarrhea Other microscopic colitis Bipolar II disorder ([facility]) Other bipolar disorders Hypokalemia Hypopotassemia Anxiety state ([facility]) Anxiety state, unspecified Pre-operative clearance- Primary Unspecified pre-operative examination Primary hypertension ([facility]) Unspecified essential hypertension Hypokalemia Hypopotassemia Other specified hypothyroidism Herpes zoster without complication- Primary Overweight (BMI 25.0-29.9) Overweight Primary hypertension ([facility])- Primary Unspecified essential hypertension Hypokalemia Hypopotassemia DIONNE (obstructive sleep apnea) Obstructive sleep apnea (adult) (pediatric) Other microscopic colitis Irritable bowel syndrome with diarrhea Irritable bowel syndrome Overweight (BMI 25.0-29.9) Overweight Generalized anxiety disorder with panic attacks ([facility]) Bipolar II disorder ([facility]) Other bipolar disorders Mixed hyperlipidemia ([facility]) Mixed hyperlipidemia Generalized abdominal pain- Primary Abdominal pain, generalized Bipolar II disorder ([facility]) Other bipolar disorders Primary hypertension ([facility]) Unspecified essential hypertension Overweight (BMI 25.0-29.9) Overweight Generalized anxiety disorder with panic attacks ([facility]) Other specified hypothyroidism Viral upper respiratory tract infection Acute upper respiratory infections of unspecified site Subacute cough Irritable bowel syndrome with diarrhea Irritable bowel syndrome Weakness generalized Other malaise and fatigue Generalized abdominal pain- Primary Abdominal pain, generalized Primary hypertension ([facility]) Unspecified essential hypertension Mixed hyperlipidemia ([facility]) Mixed hyperlipidemia Irritable bowel syndrome with diarrhea Irritable bowel syndrome Nausea Nausea alone Urinary tract infection without hematuria, site unspecified Generalized anxiety disorder with panic attacks ([facility]) Depression with anxiety Dysthymic disorder Acute pain of right shoulder- Primary Overweight (BMI 25.0-29.9) Overweight Acute pain of right shoulder- Primary Acute pain of right shoulder- Primary documented in this encounter [facility]* Diagnosis Primary hypertension ([facility])- Primary Unspecified essential hypertension Hypokalemia Hypopotassemia Chronic diarrhea Diarrhea Weight loss, unintentional- Primary Loss of weight DIONNE (obstructive sleep apnea) Obstructive sleep apnea (adult) (pediatric) Primary hypertension ([facility]) Unspecified essential hypertension Chronic diarrhea Diarrhea Other microscopic colitis Bipolar II disorder ([facility]/HCC) Other bipolar disorders Hypokalemia Hypopotassemia Anxiety state ([facility]) Anxiety state, unspecified Pre-operative clearance- Primary Unspecified pre-operative examination Primary hypertension ([facility]) Unspecified essential hypertension Hypokalemia Hypopotassemia Other specified hypothyroidism Herpes zoster without complication- Primary Overweight (BMI 25.0-29.9) Overweight Primary hypertension ([facility]/HCC)- Primary Unspecified essential hypertension Hypokalemia Hypopotassemia DIONNE (obstructive sleep apnea) Obstructive sleep apnea (adult) (pediatric) Other microscopic colitis Irritable bowel syndrome with diarrhea Irritable bowel syndrome Overweight (BMI 25.0-29.9) Overweight Generalized anxiety disorder with panic attacks ([facility]) Bipolar II disorder ([facility]/HCC) Other bipolar disorders Mixed hyperlipidemia ([facility]) Mixed hyperlipidemia Generalized abdominal pain- Primary Abdominal pain, generalized Bipolar II disorder ([facility]/HCC) Other bipolar disorders Primary hypertension ([facility]) Unspecified essential hypertension Overweight (BMI 25.0-29.9) Overweight Generalized anxiety disorder with panic attacks ([facility]) Other specified hypothyroidism Viral upper respiratory tract infection Acute upper respiratory infections of unspecified site Subacute cough Irritable bowel syndrome with diarrhea Irritable bowel syndrome Weakness generalized Other malaise and fatigue Generalized abdominal pain- Primary Abdominal pain, generalized Primary hypertension ([facility]) Unspecified essential hypertension Mixed hyperlipidemia ([facility]) Mixed hyperlipidemia Irritable bowel syndrome with diarrhea Irritable bowel syndrome Nausea Nausea alone Urinary tract infection without hematuria, site unspecified Generalized anxiety disorder with panic attacks ([facility]) Depression with anxiety Dysthymic disorder Acute pain of right shoulder- Primary Overweight (BMI 25.0-29.9) Overweight Acute pain of right shoulder- Primary Swelling of labia Labial cyst Other specified noninflammatory disorder of vulva and perineum documented in this encounter [facility]* Diagnosis Primary hypertension ([facility])- Primary Unspecified essential hypertension Hypokalemia Hypopotassemia Chronic diarrhea Diarrhea Weight loss, unintentional- Primary Loss of weight DIONNE (obstructive sleep apnea) Obstructive sleep apnea (adult) (pediatric) Primary hypertension ([facility]) Unspecified essential hypertension Chronic diarrhea Diarrhea Other microscopic colitis Bipolar II disorder ([facility]/HCC) Other bipolar disorders Hypokalemia Hypopotassemia Anxiety state ([facility]) Anxiety state, unspecified Pre-operative clearance- Primary Unspecified pre-operative examination Primary hypertension (CMS/HCC) Unspecified essential hypertension Hypokalemia Hypopotassemia Other specified hypothyroidism Herpes zoster without complication- Primary Overweight (BMI 25.0-29.9) Overweight Primary hypertension (CMS/HCC)- Primary Unspecified essential hypertension Hypokalemia Hypopotassemia DIONNE (obstructive sleep apnea) Obstructive sleep apnea (adult) (pediatric) Other microscopic colitis Irritable bowel syndrome with diarrhea Irritable bowel syndrome Overweight (BMI 25.0-29.9) Overweight Generalized anxiety disorder with panic attacks (CMS/HCC) Bipolar II disorder (CMS/HCC) Other bipolar disorders Mixed hyperlipidemia (CMS/HCC) Mixed hyperlipidemia Generalized abdominal pain- Primary Abdominal pain, generalized Bipolar II disorder (CMS/HCC) Other bipolar disorders Primary hypertension (CMS/HCC) Unspecified essential hypertension Overweight (BMI 25.0-29.9) Overweight Generalized anxiety disorder with panic attacks (CMS/HCC) Other specified hypothyroidism Viral upper respiratory tract infection Acute upper respiratory infections of unspecified site Subacute cough Irritable bowel syndrome with diarrhea Irritable bowel syndrome Weakness generalized Other malaise and fatigue Generalized abdominal pain- Primary Abdominal pain, generalized Primary hypertension (CMS/HCC) Unspecified essential hypertension Mixed hyperlipidemia (CMS/[facility]) Mixed hyperlipidemia Irritable bowel syndrome with diarrhea Irritable bowel syndrome Nausea Nausea alone Urinary tract infection without hematuria, site unspecified Generalized anxiety disorder with panic attacks ([facility]) Depression with anxiety Dysthymic disorder Acute pain of right shoulder- Primary Overweight (BMI 25.0-29.9) Overweight Acute pain of right shoulder- Primary Acute pain of right shoulder- Primary documented in this encounter [facility]* Diagnosis Primary hypertension ([facility]/HCC)- Primary Unspecified essential hypertension Hypokalemia Hypopotassemia Chronic diarrhea Diarrhea Weight loss, unintentional- Primary Loss of weight DIONNE (obstructive sleep apnea) Obstructive sleep apnea (adult) (pediatric) Primary hypertension ([facility]/HCC) Unspecified essential hypertension Chronic diarrhea Diarrhea Other microscopic colitis Bipolar II disorder (CMS/HCC) Other bipolar disorders Hypokalemia Hypopotassemia Anxiety state ([facility]) Anxiety state, unspecified Pre-operative clearance- Primary Unspecified pre-operative examination Primary hypertension ([facility]/HCC) Unspecified essential hypertension Hypokalemia Hypopotassemia Other specified hypothyroidism Herpes zoster without complication- Primary Overweight (BMI 25.0-29.9) Overweight Primary hypertension ([facility]/HCC)- Primary Unspecified essential hypertension Hypokalemia Hypopotassemia DIONNE (obstructive sleep apnea) Obstructive sleep apnea (adult) (pediatric) Other microscopic colitis Irritable bowel syndrome with diarrhea Irritable bowel syndrome Overweight (BMI 25.0-29.9) Overweight Generalized anxiety disorder with panic attacks ([facility]/HCC) Bipolar II disorder ([facility]/HCC) Other bipolar disorders Mixed hyperlipidemia (CMS/HCC) Mixed hyperlipidemia Generalized abdominal pain- Primary Abdominal pain, generalized Bipolar II disorder ([facility]/HCC) Other bipolar disorders Primary hypertension ([facility]) Unspecified essential hypertension Overweight (BMI 25.0-29.9) Overweight Generalized anxiety disorder with panic attacks ([facility]/HCC) Other specified hypothyroidism Viral upper respiratory tract infection Acute upper respiratory infections of unspecified site Subacute cough Irritable bowel syndrome with diarrhea Irritable bowel syndrome Weakness generalized Other malaise and fatigue Generalized abdominal pain- Primary Abdominal pain, generalized Primary hypertension ([facility]) Unspecified essential hypertension Mixed hyperlipidemia ([facility]) Mixed hyperlipidemia Irritable bowel syndrome with diarrhea Irritable bowel syndrome Nausea Nausea alone Urinary tract infection without hematuria, site unspecified Generalized anxiety disorder with panic attacks ([facility]) Depression with anxiety Dysthymic disorder Acute pain of right shoulder- Primary Overweight (BMI 25.0-29.9) Overweight Acute pain of right shoulder- Primary Acute pain of right shoulder- Primary documented in this encounter [facility]* Diagnosis Primary hypertension ([facility])- Primary Unspecified essential hypertension Hypokalemia Hypopotassemia Chronic diarrhea Diarrhea Weight loss, unintentional- Primary Loss of weight DIONNE (obstructive sleep apnea) Obstructive sleep apnea (adult) (pediatric) Primary hypertension ([facility]) Unspecified essential hypertension Chronic diarrhea Diarrhea Other microscopic colitis Bipolar II disorder ([facility]) Other bipolar disorders Hypokalemia Hypopotassemia Anxiety state ([facility]) Anxiety state, unspecified Pre-operative clearance- Primary Unspecified pre-operative examination Primary hypertension ([facility]) Unspecified essential hypertension Hypokalemia Hypopotassemia Other specified hypothyroidism Herpes zoster without complication- Primary Overweight (BMI 25.0-29.9) Overweight Primary hypertension ([facility]/HCC)- Primary Unspecified essential hypertension Hypokalemia Hypopotassemia DIONNE (obstructive sleep apnea) Obstructive sleep apnea (adult) (pediatric) Other microscopic colitis Irritable bowel syndrome with diarrhea Irritable bowel syndrome Overweight (BMI 25.0-29.9) Overweight Generalized anxiety disorder with panic attacks (CMS/HCC) Bipolar II disorder (CMS/HCC) Other bipolar disorders Mixed hyperlipidemia (CMS/HCC) Mixed hyperlipidemia Generalized abdominal pain- Primary Abdominal pain, generalized Bipolar II disorder (CMS/HCC) Other bipolar disorders Primary hypertension (CMS/HCC) Unspecified essential hypertension Overweight (BMI 25.0-29.9) Overweight Generalized anxiety disorder with panic attacks (CMS/HCC) Other specified hypothyroidism Viral upper respiratory tract infection Acute upper respiratory infections of unspecified site Subacute cough Irritable bowel syndrome with diarrhea Irritable bowel syndrome Weakness generalized Other malaise and fatigue Generalized abdominal pain- Primary Abdominal pain, generalized Primary hypertension (CMS/HCC) Unspecified essential hypertension Mixed hyperlipidemia (CMS/HCC) Mixed hyperlipidemia Irritable bowel syndrome with diarrhea Irritable bowel syndrome Nausea Nausea alone Urinary tract infection without hematuria, site unspecified Generalized anxiety disorder with panic attacks (CMS/HCC) Depression with anxiety Dysthymic disorder Acute pain of right shoulder- Primary Overweight (BMI 25.0-29.9) Overweight Acute pain of right shoulder- Primary Labial cyst Other specified noninflammatory disorder of vulva and perineum Follow-up exam Unspecified follow-up examination documented in this encounter [facility]* Diagnosis Primary hypertension ([facility]/HCC)- Primary Unspecified essential hypertension Hypokalemia Hypopotassemia Chronic diarrhea Diarrhea Weight loss, unintentional- Primary Loss of weight DIONNE (obstructive sleep apnea) Obstructive sleep apnea (adult) (pediatric) Primary hypertension ([facility]/HCC) Unspecified essential hypertension Chronic diarrhea Diarrhea Other microscopic colitis Bipolar II disorder (CMS/HCC) Other bipolar disorders Hypokalemia Hypopotassemia Anxiety state ([facility]) Anxiety state, unspecified Pre-operative clearance- Primary Unspecified pre-operative examination Primary hypertension (CMS/HCC) Unspecified essential hypertension Hypokalemia Hypopotassemia Other specified hypothyroidism Herpes zoster without complication- Primary Overweight (BMI 25.0-29.9) Overweight Primary hypertension (CMS/HCC)- Primary Unspecified essential hypertension Hypokalemia Hypopotassemia DIONNE (obstructive sleep apnea) Obstructive sleep apnea (adult) (pediatric) Other microscopic colitis Irritable bowel syndrome with diarrhea Irritable bowel syndrome Overweight (BMI 25.0-29.9) Overweight Generalized anxiety disorder with panic attacks (CMS/HCC) Bipolar II disorder (CMS/HCC) Other bipolar disorders Mixed hyperlipidemia (CMS/HCC) Mixed hyperlipidemia Generalized abdominal pain- Primary Abdominal pain, generalized Bipolar II disorder (CMS/HCC) Other bipolar disorders Primary hypertension (CMS/HCC) Unspecified essential hypertension Overweight (BMI 25.0-29.9) Overweight Generalized anxiety disorder with panic attacks (CMS/HCC) Other specified hypothyroidism Viral upper respiratory tract infection Acute upper respiratory infections of unspecified site Subacute cough Irritable bowel syndrome with diarrhea Irritable bowel syndrome Weakness generalized Other malaise and fatigue Generalized abdominal pain- Primary Abdominal pain, generalized Primary hypertension (CMS/HCC) Unspecified essential hypertension Mixed hyperlipidemia (CMS/HCC) Mixed hyperlipidemia Irritable bowel syndrome with diarrhea Irritable bowel syndrome Nausea Nausea alone Urinary tract infection without hematuria, site unspecified Generalized anxiety disorder with panic attacks (CMS/HCC) Depression with anxiety Dysthymic disorder Acute pain of right shoulder- Primary Overweight (BMI 25.0-29.9) Overweight Acute pain of right shoulder- Primary Mixed hyperlipidemia (CMS/HCC) Mixed hyperlipidemia documented in this encounter [facility]* Diagnosis Primary hypertension ([facility])- Primary Unspecified essential hypertension Hypokalemia Hypopotassemia Chronic diarrhea Diarrhea Weight loss, unintentional- Primary Loss of weight DIONNE (obstructive sleep apnea) Obstructive sleep apnea (adult) (pediatric) Primary hypertension ([facility]/HCC) Unspecified essential hypertension Chronic diarrhea Diarrhea Other microscopic colitis Bipolar II disorder (CMS/HCC) Other bipolar disorders Hypokalemia Hypopotassemia Anxiety state ([facility]) Anxiety state, unspecified Pre-operative clearance- Primary Unspecified pre-operative examination Primary hypertension (CMS/HCC) Unspecified essential hypertension Hypokalemia Hypopotassemia Other specified hypothyroidism Herpes zoster without complication- Primary Overweight (BMI 25.0-29.9) Overweight Primary hypertension ([facility]/HCC)- Primary Unspecified essential hypertension Hypokalemia Hypopotassemia DIONNE (obstructive sleep apnea) Obstructive sleep apnea (adult) (pediatric) Other microscopic colitis Irritable bowel syndrome with diarrhea Irritable bowel syndrome Overweight (BMI 25.0-29.9) Overweight Generalized anxiety disorder with panic attacks (CMS/HCC) Bipolar II disorder (CMS/HCC) Other bipolar disorders Mixed hyperlipidemia (CMS/HCC) Mixed hyperlipidemia Generalized abdominal pain- Primary Abdominal pain, generalized Bipolar II disorder (CMS/HCC) Other bipolar disorders Primary hypertension (CMS/HCC) Unspecified essential hypertension Overweight (BMI 25.0-29.9) Overweight Generalized anxiety disorder with panic attacks (CMS/HCC) Other specified hypothyroidism Viral upper respiratory tract infection Acute upper respiratory infections of unspecified site Subacute cough Irritable bowel syndrome with diarrhea Irritable bowel syndrome Weakness generalized Other malaise and fatigue Generalized abdominal pain- Primary Abdominal pain, generalized Primary hypertension (CMS/HCC) Unspecified essential hypertension Mixed hyperlipidemia (CMS/HCC) Mixed hyperlipidemia Irritable bowel syndrome with diarrhea Irritable bowel syndrome Nausea Nausea alone Urinary tract infection without hematuria, site unspecified Generalized anxiety disorder with panic attacks (CMS/HCC) Depression with anxiety Dysthymic disorder Acute pain of right shoulder- Primary Overweight (BMI 25.0-29.9) Overweight Acute pain of right shoulder- Primary Acute pain of right shoulder- Primary documented in this encounter [facility]* Diagnosis Primary hypertension (CMS/HCC)- Primary Unspecified essential hypertension Hypokalemia Hypopotassemia Chronic diarrhea Diarrhea Weight loss, unintentional- Primary Loss of weight DIONNE (obstructive sleep apnea) Obstructive sleep apnea (adult) (pediatric) Primary hypertension (CMS/HCC) Unspecified essential hypertension Chronic diarrhea Diarrhea Other microscopic colitis Bipolar II disorder (CMS/HCC) Other bipolar disorders Hypokalemia Hypopotassemia Anxiety state (CMS/HCC) Anxiety state, unspecified Pre-operative clearance- Primary Unspecified pre-operative examination Primary hypertension (CMS/HCC) Unspecified essential hypertension Hypokalemia Hypopotassemia Other specified hypothyroidism Herpes zoster without complication- Primary Overweight (BMI 25.0-29.9) Overweight Primary hypertension (CMS/HCC)- Primary Unspecified essential hypertension Hypokalemia Hypopotassemia DIONNE (obstructive sleep apnea) Obstructive sleep apnea (adult) (pediatric) Other microscopic colitis Irritable bowel syndrome with diarrhea Irritable bowel syndrome Overweight (BMI 25.0-29.9) Overweight Generalized anxiety disorder with panic attacks (CMS/HCC) Bipolar II disorder (CMS/HCC) Other bipolar disorders Mixed hyperlipidemia (CMS/HCC) Mixed hyperlipidemia Generalized abdominal pain- Primary Abdominal pain, generalized Bipolar II disorder (CMS/HCC) Other bipolar disorders Primary hypertension (CMS/HCC) Unspecified essential hypertension Overweight (BMI 25.0-29.9) Overweight Generalized anxiety disorder with panic attacks (CMS/HCC) Other specified hypothyroidism Viral upper respiratory tract infection Acute upper respiratory infections of unspecified site Subacute cough Irritable bowel syndrome with diarrhea Irritable bowel syndrome Weakness generalized Other malaise and fatigue Generalized abdominal pain- Primary Abdominal pain, generalized Primary hypertension (CMS/HCC) Unspecified essential hypertension Mixed hyperlipidemia (CMS/HCC) Mixed hyperlipidemia Irritable bowel syndrome with diarrhea Irritable bowel syndrome Nausea Nausea alone Urinary tract infection without hematuria, site unspecified Generalized anxiety disorder with panic attacks (CMS/HCC) Depression with anxiety Dysthymic disorder Acute pain of right shoulder- Primary Overweight (BMI 25.0-29.9) Overweight Acute pain of right shoulder- Primary Chronic right shoulder pain- Primary Pain in joint, shoulder region documented in this encounter [facility]Evaluation note* Diagnosis Primary hypertension ([facility])- Primary Unspecified essential hypertension Hypokalemia Hypopotassemia Chronic diarrhea Diarrhea Weight loss, unintentional- Primary Loss of weight DIONNE (obstructive sleep apnea) Obstructive sleep apnea (adult) (pediatric) Primary hypertension ([facility]) Unspecified essential hypertension Chronic diarrhea Diarrhea Other microscopic colitis Bipolar II disorder (CMS/HCC) Other bipolar disorders Hypokalemia Hypopotassemia Anxiety state (CMS/[facility]) Anxiety state, unspecified Pre-operative clearance- Primary Unspecified pre-operative examination Primary hypertension ([facility]) Unspecified essential hypertension Hypokalemia Hypopotassemia Other specified hypothyroidism Herpes zoster without complication- Primary Overweight (BMI 25.0-29.9) Overweight Primary hypertension ([facility]/HCC)- Primary Unspecified essential hypertension Hypokalemia Hypopotassemia DIONNE (obstructive sleep apnea) Obstructive sleep apnea (adult) (pediatric) Other microscopic colitis Irritable bowel syndrome with diarrhea Irritable bowel syndrome Overweight (BMI 25.0-29.9) Overweight Generalized anxiety disorder with panic attacks (CMS/HCC) Bipolar II disorder (CMS/HCC) Other bipolar disorders Mixed hyperlipidemia (CMS/HCC) Mixed hyperlipidemia Generalized abdominal pain- Primary Abdominal pain, generalized Bipolar II disorder (CMS/HCC) Other bipolar disorders Primary hypertension (CMS/HCC) Unspecified essential hypertension Overweight (BMI 25.0-29.9) Overweight Generalized anxiety disorder with panic attacks (CMS/HCC) Other specified hypothyroidism Viral upper respiratory tract infection Acute upper respiratory infections of unspecified site Subacute cough Irritable bowel syndrome with diarrhea Irritable bowel syndrome Weakness generalized Other malaise and fatigue Generalized abdominal pain- Primary Abdominal pain, generalized Primary hypertension (CMS/HCC) Unspecified essential hypertension Mixed hyperlipidemia (CMS/HCC) Mixed hyperlipidemia Irritable bowel syndrome with diarrhea Irritable bowel syndrome Nausea Nausea alone Urinary tract infection without hematuria, site unspecified Generalized anxiety disorder with panic attacks (CMS/HCC) Depression with anxiety Dysthymic disorder Acute pain of right shoulder- Primary Overweight (BMI 25.0-29.9) Overweight Acute pain of right shoulder- Primary Chronic right shoulder pain- Primary Pain in joint, shoulder region Acute pain of right shoulder- Primary documented in this encounter [facility] HealthcareEvaluation note* Diagnosis Primary hypertension (CMS/HCC)- Primary Unspecified essential hypertension Hypokalemia Hypopotassemia Chronic diarrhea Diarrhea Weight loss, unintentional- Primary Loss of weight DIONNE (obstructive sleep apnea) Obstructive sleep apnea (adult) (pediatric) Primary hypertension (CMS/HCC) Unspecified essential hypertension Chronic diarrhea Diarrhea Other microscopic colitis Bipolar II disorder (CMS/HCC) Other bipolar disorders Hypokalemia Hypopotassemia Anxiety state (CMS/HCC) Anxiety state, unspecified Pre-operative clearance- Primary Unspecified pre-operative examination Primary hypertension (CMS/HCC) Unspecified essential hypertension Hypokalemia Hypopotassemia Other specified hypothyroidism Herpes zoster without complication- Primary Overweight (BMI 25.0-29.9) Overweight Primary hypertension (CMS/HCC)- Primary Unspecified essential hypertension Hypokalemia Hypopotassemia DIONNE (obstructive sleep apnea) Obstructive sleep apnea (adult) (pediatric) Other microscopic colitis Irritable bowel syndrome with diarrhea Irritable bowel syndrome Overweight (BMI 25.0-29.9) Overweight Generalized anxiety disorder with panic attacks (CMS/HCC) Bipolar II disorder (CMS/HCC) Other bipolar disorders Mixed hyperlipidemia (CMS/HCC) Mixed hyperlipidemia Generalized abdominal pain- Primary Abdominal pain, generalized Bipolar II disorder (CMS/HCC) Other bipolar disorders Primary hypertension (CMS/HCC) Unspecified essential hypertension Overweight (BMI 25.0-29.9) Overweight Generalized anxiety disorder with panic attacks (CMS/HCC) Other specified hypothyroidism Viral upper respiratory tract infection Acute upper respiratory infections of unspecified site Subacute cough Irritable bowel syndrome with diarrhea Irritable bowel syndrome Weakness generalized Other malaise and fatigue Generalized abdominal pain- Primary Abdominal pain, generalized Primary hypertension (CMS/HCC) Unspecified essential hypertension Mixed hyperlipidemia (CMS/HCC) Mixed hyperlipidemia Irritable bowel syndrome with diarrhea Irritable bowel syndrome Nausea Nausea alone Urinary tract infection without hematuria, site unspecified Generalized anxiety disorder with panic attacks (CMS/HCC) Depression with anxiety Dysthymic disorder Acute pain of right shoulder- Primary Overweight (BMI 25.0-29.9) Overweight Acute pain of right shoulder- Primary Chronic right shoulder pain- Primary Pain in joint, shoulder region Acute pain of right shoulder- Primary documented in this encounter [facility]* Diagnosis Primary hypertension ([facility]/HCC)- Primary Unspecified essential hypertension Hypokalemia Hypopotassemia Chronic diarrhea Diarrhea Weight loss, unintentional- Primary Loss of weight DIONNE (obstructive sleep apnea) Obstructive sleep apnea (adult) (pediatric) Primary hypertension ([facility]) Unspecified essential hypertension Chronic diarrhea Diarrhea Other microscopic colitis Bipolar II disorder (CMS/HCC) Other bipolar disorders Hypokalemia Hypopotassemia Anxiety state ([facility]) Anxiety state, unspecified Pre-operative clearance- Primary Unspecified pre-operative examination Primary hypertension ([facility]) Unspecified essential hypertension Hypokalemia Hypopotassemia Other specified hypothyroidism Herpes zoster without complication- Primary Overweight (BMI 25.0-29.9) Overweight Primary hypertension ([facility]/HCC)- Primary Unspecified essential hypertension Hypokalemia Hypopotassemia DIONNE (obstructive sleep apnea) Obstructive sleep apnea (adult) (pediatric) Other microscopic colitis Irritable bowel syndrome with diarrhea Irritable bowel syndrome Overweight (BMI 25.0-29.9) Overweight Generalized anxiety disorder with panic attacks ([facility]) Bipolar II disorder ([facility]) Other bipolar disorders Mixed hyperlipidemia (CMS/[facility]) Mixed hyperlipidemia Generalized abdominal pain- Primary Abdominal pain, generalized Bipolar II disorder (CMS/HCC) Other bipolar disorders Primary hypertension ([facility]) Unspecified essential hypertension Overweight (BMI 25.0-29.9) Overweight Generalized anxiety disorder with panic attacks ([facility]/HCC) Other specified hypothyroidism Viral upper respiratory tract infection Acute upper respiratory infections of unspecified site Subacute cough Irritable bowel syndrome with diarrhea Irritable bowel syndrome Weakness generalized Other malaise and fatigue Generalized abdominal pain- Primary Abdominal pain, generalized Primary hypertension ([facility]/HCC) Unspecified essential hypertension Mixed hyperlipidemia ([facility]) Mixed hyperlipidemia Irritable bowel syndrome with diarrhea Irritable bowel syndrome Nausea Nausea alone Urinary tract infection without hematuria, site unspecified Generalized anxiety disorder with panic attacks ([facility]) Depression with anxiety Dysthymic disorder Acute pain of right shoulder- Primary Overweight (BMI 25.0-29.9) Overweight Acute pain of right shoulder- Primary Chronic right shoulder pain- Primary Pain in joint, shoulder region Acute pain of right shoulder- Primary documented in this encounter [facility]* Diagnosis Primary hypertension ([facility]/HCC)- Primary Unspecified essential hypertension Hypokalemia Hypopotassemia Chronic diarrhea Diarrhea Weight loss, unintentional- Primary Loss of weight DIONNE (obstructive sleep apnea) Obstructive sleep apnea (adult) (pediatric) Primary hypertension ([facility]) Unspecified essential hypertension Chronic diarrhea Diarrhea Other microscopic colitis Bipolar II disorder ([facility]/HCC) Other bipolar disorders Hypokalemia Hypopotassemia Anxiety state ([facility]) Anxiety state, unspecified Pre-operative clearance- Primary Unspecified pre-operative examination Primary hypertension ([facility]) Unspecified essential hypertension Hypokalemia Hypopotassemia Other specified hypothyroidism Herpes zoster without complication- Primary Overweight (BMI 25.0-29.9) Overweight Primary hypertension ([facility]/HCC)- Primary Unspecified essential hypertension Hypokalemia Hypopotassemia DIONNE (obstructive sleep apnea) Obstructive sleep apnea (adult) (pediatric) Other microscopic colitis Irritable bowel syndrome with diarrhea Irritable bowel syndrome Overweight (BMI 25.0-29.9) Overweight Generalized anxiety disorder with panic attacks ([facility]) Bipolar II disorder ([facility]) Other bipolar disorders Mixed hyperlipidemia ([facility]) Mixed hyperlipidemia Generalized abdominal pain- Primary Abdominal pain, generalized Bipolar II disorder ([facility]) Other bipolar disorders Primary hypertension ([facility]) Unspecified essential hypertension Overweight (BMI 25.0-29.9) Overweight Generalized anxiety disorder with panic attacks ([facility]) Other specified hypothyroidism Viral upper respiratory tract infection Acute upper respiratory infections of unspecified site Subacute cough Irritable bowel syndrome with diarrhea Irritable bowel syndrome Weakness generalized Other malaise and fatigue Generalized abdominal pain- Primary Abdominal pain, generalized Primary hypertension ([facility]) Unspecified essential hypertension Mixed hyperlipidemia ([facility]) Mixed hyperlipidemia Irritable bowel syndrome with diarrhea Irritable bowel syndrome Nausea Nausea alone Urinary tract infection without hematuria, site unspecified Generalized anxiety disorder with panic attacks ([facility]) Depression with anxiety Dysthymic disorder Acute pain of right shoulder- Primary Overweight (BMI 25.0-29.9) Overweight Acute pain of right shoulder- Primary Chronic right shoulder pain- Primary Pain in joint, shoulder region Acute pain of right shoulder- Primary documented in this encounter [facility]* Diagnosis Primary hypertension ([facility])- Primary Unspecified essential hypertension Hypokalemia Hypopotassemia Chronic diarrhea Diarrhea Weight loss, unintentional- Primary Loss of weight DIONNE (obstructive sleep apnea) Obstructive sleep apnea (adult) (pediatric) Primary hypertension ([facility]) Unspecified essential hypertension Chronic diarrhea Diarrhea Other microscopic colitis Bipolar II disorder ([facility]) Other bipolar disorders Hypokalemia Hypopotassemia Anxiety state (CMS/[facility]) Anxiety state, unspecified Pre-operative clearance- Primary Unspecified pre-operative examination Primary hypertension (CMS/[facility]) Unspecified essential hypertension Hypokalemia Hypopotassemia Other specified hypothyroidism Herpes zoster without complication- Primary Overweight (BMI 25.0-29.9) Overweight Primary hypertension (CMS/HCC)- Primary Unspecified essential hypertension Hypokalemia Hypopotassemia DIONNE (obstructive sleep apnea) Obstructive sleep apnea (adult) (pediatric) Other microscopic colitis Irritable bowel syndrome with diarrhea Irritable bowel syndrome Overweight (BMI 25.0-29.9) Overweight Generalized anxiety disorder with panic attacks (CMS/[facility]) Bipolar II disorder (CMS/[facility]) Other bipolar disorders Mixed hyperlipidemia ([facility]) Mixed hyperlipidemia Generalized abdominal pain- Primary Abdominal pain, generalized Bipolar II disorder (CMS/HCC) Other bipolar disorders Primary hypertension ([facility]) Unspecified essential hypertension Overweight (BMI 25.0-29.9) Overweight Generalized anxiety disorder with panic attacks ([facility]) Other specified hypothyroidism Viral upper respiratory tract infection Acute upper respiratory infections of unspecified site Subacute cough Irritable bowel syndrome with diarrhea Irritable bowel syndrome Weakness generalized Other malaise and fatigue Generalized abdominal pain- Primary Abdominal pain, generalized Primary hypertension ([facility]) Unspecified essential hypertension Mixed hyperlipidemia ([facility]) Mixed hyperlipidemia Irritable bowel syndrome with diarrhea Irritable bowel syndrome Nausea Nausea alone Urinary tract infection without hematuria, site unspecified Generalized anxiety disorder with panic attacks ([facility]) Depression with anxiety Dysthymic disorder Acute pain of right shoulder- Primary Overweight (BMI 25.0-29.9) Overweight Acute pain of right shoulder- Primary Chronic right shoulder pain- Primary Pain in joint, shoulder region Internal derangement of right shoulder documented in this encounter [facility] HealthcareEvaluation note* Diagnosis Primary hypertension ([facility])- Primary Unspecified essential hypertension Hypokalemia Hypopotassemia Chronic diarrhea Diarrhea Weight loss, unintentional- Primary Loss of weight DIONNE (obstructive sleep apnea) Obstructive sleep apnea (adult) (pediatric) Primary hypertension ([facility]) Unspecified essential hypertension Chronic diarrhea Diarrhea Other microscopic colitis Bipolar II disorder (CMS/[facility]) Other bipolar disorders Hypokalemia Hypopotassemia Anxiety state ([facility]) Anxiety state, unspecified Pre-operative clearance- Primary Unspecified pre-operative examination Primary hypertension (CMS/HCC) Unspecified essential hypertension Hypokalemia Hypopotassemia Other specified hypothyroidism Herpes zoster without complication- Primary Overweight (BMI 25.0-29.9) Overweight Primary hypertension (CMS/HCC)- Primary Unspecified essential hypertension Hypokalemia Hypopotassemia DIONNE (obstructive sleep apnea) Obstructive sleep apnea (adult) (pediatric) Other microscopic colitis Irritable bowel syndrome with diarrhea Irritable bowel syndrome Overweight (BMI 25.0-29.9) Overweight Generalized anxiety disorder with panic attacks (CMS/HCC) Bipolar II disorder (CMS/HCC) Other bipolar disorders Mixed hyperlipidemia (CMS/HCC) Mixed hyperlipidemia Generalized abdominal pain- Primary Abdominal pain, generalized Bipolar II disorder (CMS/HCC) Other bipolar disorders Primary hypertension (CMS/HCC) Unspecified essential hypertension Overweight (BMI 25.0-29.9) Overweight Generalized anxiety disorder with panic attacks (CMS/HCC) Other specified hypothyroidism Viral upper respiratory tract infection Acute upper respiratory infections of unspecified site Subacute cough Irritable bowel syndrome with diarrhea Irritable bowel syndrome Weakness generalized Other malaise and fatigue Generalized abdominal pain- Primary Abdominal pain, generalized Primary hypertension (CMS/HCC) Unspecified essential hypertension Mixed hyperlipidemia (CMS/HCC) Mixed hyperlipidemia Irritable bowel syndrome with diarrhea Irritable bowel syndrome Nausea Nausea alone Urinary tract infection without hematuria, site unspecified Generalized anxiety disorder with panic attacks (CMS/HCC) Depression with anxiety Dysthymic disorder Acute pain of right shoulder- Primary Overweight (BMI 25.0-29.9) Overweight Acute pain of right shoulder- Primary Chronic right shoulder pain- Primary Pain in joint, shoulder region Acute pain of right shoulder- Primary Chronic right shoulder pain Pain in joint, shoulder region Impingement of right shoulder Internal derangement of right shoulder documented in this encounter [facility] HealthcareEvaluation note* Diagnosis Primary hypertension- Primary Unspecified essential hypertension Hypokalemia Hypopotassemia Chronic diarrhea Diarrhea Weight loss, unintentional- Primary Loss of weight DIONNE (obstructive sleep apnea) Obstructive sleep apnea (adult) (pediatric) Primary hypertension Unspecified essential hypertension Chronic diarrhea Diarrhea Other microscopic colitis Bipolar II disorder (HCC) Other bipolar disorders Hypokalemia Hypopotassemia Anxiety state Anxiety state, unspecified Pre-operative clearance- Primary Unspecified pre-operative examination Primary hypertension Unspecified essential hypertension Hypokalemia Hypopotassemia Other specified hypothyroidism Herpes zoster without complication- Primary Overweight (BMI 25.0-29.9) Overweight Primary hypertension- Primary Unspecified essential hypertension Hypokalemia Hypopotassemia DIONNE (obstructive sleep apnea) Obstructive sleep apnea (adult) (pediatric) Other microscopic colitis Irritable bowel syndrome with diarrhea Irritable bowel syndrome Overweight (BMI 25.0-29.9) Overweight Generalized anxiety disorder with panic attacks Bipolar II disorder (HCC) Other bipolar disorders Mixed hyperlipidemia Mixed hyperlipidemia Generalized abdominal pain- Primary Abdominal pain, generalized Bipolar II disorder (HCC) Other bipolar disorders Primary hypertension Unspecified essential hypertension Overweight (BMI 25.0-29.9) Overweight Generalized anxiety disorder with panic attacks Other specified hypothyroidism Viral upper respiratory tract infection Acute upper respiratory infections of unspecified site Subacute cough Irritable bowel syndrome with diarrhea Irritable bowel syndrome Weakness generalized Other malaise and fatigue Generalized abdominal pain- Primary Abdominal pain, generalized Primary hypertension Unspecified essential hypertension Mixed hyperlipidemia Mixed hyperlipidemia Irritable bowel syndrome with diarrhea Irritable bowel syndrome Nausea Nausea alone Urinary tract infection without hematuria, site unspecified Generalized anxiety disorder with panic attacks Depression with anxiety Dysthymic disorder Acute pain of right shoulder- Primary Overweight (BMI 25.0-29.9) Overweight Acute pain of right shoulder- Primary Chronic right shoulder pain- Primary Pain in joint, shoulder region Chronic right shoulder pain- Primary Pain in joint, shoulder region Primary hypertension Unspecified essential hypertension documented in this encounter [facility]* Diagnosis Primary hypertension- Primary Unspecified essential hypertension Hypokalemia Hypopotassemia Chronic diarrhea Diarrhea Weight loss, unintentional- Primary Loss of weight DIONNE (obstructive sleep apnea) Obstructive sleep apnea (adult) (pediatric) Primary hypertension Unspecified essential hypertension Chronic diarrhea Diarrhea Other microscopic colitis Bipolar II disorder (HCC) Other bipolar disorders Hypokalemia Hypopotassemia Anxiety state Anxiety state, unspecified Pre-operative clearance- Primary Unspecified pre-operative examination Primary hypertension Unspecified essential hypertension Hypokalemia Hypopotassemia Other specified hypothyroidism Herpes zoster without complication- Primary Overweight (BMI 25.0-29.9) Overweight Primary hypertension- Primary Unspecified essential hypertension Hypokalemia Hypopotassemia DIONNE (obstructive sleep apnea) Obstructive sleep apnea (adult) (pediatric) Other microscopic colitis Irritable bowel syndrome with diarrhea Irritable bowel syndrome Overweight (BMI 25.0-29.9) Overweight Generalized anxiety disorder with panic attacks Bipolar II disorder (HCC) Other bipolar disorders Mixed hyperlipidemia Mixed hyperlipidemia Generalized abdominal pain- Primary Abdominal pain, generalized Bipolar II disorder (HCC) Other bipolar disorders Primary hypertension Unspecified essential hypertension Overweight (BMI 25.0-29.9) Overweight Generalized anxiety disorder with panic attacks Other specified hypothyroidism Viral upper respiratory tract infection Acute upper respiratory infections of unspecified site Subacute cough Irritable bowel syndrome with diarrhea Irritable bowel syndrome Weakness generalized Other malaise and fatigue Generalized abdominal pain- Primary Abdominal pain, generalized Primary hypertension Unspecified essential hypertension Mixed hyperlipidemia Mixed hyperlipidemia Irritable bowel syndrome with diarrhea Irritable bowel syndrome Nausea Nausea alone Urinary tract infection without hematuria, site unspecified Generalized anxiety disorder with panic attacks Depression with anxiety Dysthymic disorder Acute pain of right shoulder- Primary Overweight (BMI 25.0-29.9) Overweight Acute pain of right shoulder- Primary Chronic right shoulder pain- Primary Pain in joint, shoulder region Chronic right shoulder pain- Primary Pain in joint, shoulder region Primary hypertension Unspecified essential hypertension Chronic right shoulder pain- Primary Pain in joint, shoulder region documented in this encounter [facility]* Diagnosis Primary hypertension- Primary Unspecified essential hypertension Hypokalemia Hypopotassemia Chronic diarrhea Diarrhea Weight loss, unintentional- Primary Loss of weight DIONNE (obstructive sleep apnea) Obstructive sleep apnea (adult) (pediatric) Primary hypertension Unspecified essential hypertension Chronic diarrhea Diarrhea Other microscopic colitis Bipolar II disorder (HCC) Other bipolar disorders Hypokalemia Hypopotassemia Anxiety state Anxiety state, unspecified Pre-operative clearance- Primary Unspecified pre-operative examination Primary hypertension Unspecified essential hypertension Hypokalemia Hypopotassemia Other specified hypothyroidism Herpes zoster without complication- Primary Overweight (BMI 25.0-29.9) Overweight Primary hypertension- Primary Unspecified essential hypertension Hypokalemia Hypopotassemia DIONNE (obstructive sleep apnea) Obstructive sleep apnea (adult) (pediatric) Other microscopic colitis Irritable bowel syndrome with diarrhea Irritable bowel syndrome Overweight (BMI 25.0-29.9) Overweight Generalized anxiety disorder with panic attacks Bipolar II disorder (HCC) Other bipolar disorders Mixed hyperlipidemia Mixed hyperlipidemia Generalized abdominal pain- Primary Abdominal pain, generalized Bipolar II disorder (HCC) Other bipolar disorders Primary hypertension Unspecified essential hypertension Overweight (BMI 25.0-29.9) Overweight Generalized anxiety disorder with panic attacks Other specified hypothyroidism Viral upper respiratory tract infection Acute upper respiratory infections of unspecified site Subacute cough Irritable bowel syndrome with diarrhea Irritable bowel syndrome Weakness generalized Other malaise and fatigue Generalized abdominal pain- Primary Abdominal pain, generalized Primary hypertension Unspecified essential hypertension Mixed hyperlipidemia Mixed hyperlipidemia Irritable bowel syndrome with diarrhea Irritable bowel syndrome Nausea Nausea alone Urinary tract infection without hematuria, site unspecified Generalized anxiety disorder with panic attacks Depression with anxiety Dysthymic disorder Acute pain of right shoulder- Primary Overweight (BMI 25.0-29.9) Overweight Acute pain of right shoulder- Primary Chronic right shoulder pain- Primary Pain in joint, shoulder region Chronic right shoulder pain- Primary Pain in joint, shoulder region Primary hypertension Unspecified essential hypertension Hypokalemia- Primary Hypopotassemia documented in this encounter [facility]* Diagnosis Primary hypertension- Primary Unspecified essential hypertension Hypokalemia Hypopotassemia Chronic diarrhea Diarrhea Weight loss, unintentional- Primary Loss of weight DIONNE (obstructive sleep apnea) Obstructive sleep apnea (adult) (pediatric) Primary hypertension Unspecified essential hypertension Chronic diarrhea Diarrhea Other microscopic colitis Bipolar II disorder (HCC) Other bipolar disorders Hypokalemia Hypopotassemia Anxiety state Anxiety state, unspecified Pre-operative clearance- Primary Unspecified pre-operative examination Primary hypertension Unspecified essential hypertension Hypokalemia Hypopotassemia Other specified hypothyroidism Herpes zoster without complication- Primary Overweight (BMI 25.0-29.9) Overweight Primary hypertension- Primary Unspecified essential hypertension Hypokalemia Hypopotassemia DIONNE (obstructive sleep apnea) Obstructive sleep apnea (adult) (pediatric) Other microscopic colitis Irritable bowel syndrome with diarrhea Irritable bowel syndrome Overweight (BMI 25.0-29.9) Overweight Generalized anxiety disorder with panic attacks Bipolar II disorder (HCC) Other bipolar disorders Mixed hyperlipidemia Mixed hyperlipidemia Generalized abdominal pain- Primary Abdominal pain, generalized Bipolar II disorder (HCC) Other bipolar disorders Primary hypertension Unspecified essential hypertension Overweight (BMI 25.0-29.9) Overweight Generalized anxiety disorder with panic attacks Other specified hypothyroidism Viral upper respiratory tract infection Acute upper respiratory infections of unspecified site Subacute cough Irritable bowel syndrome with diarrhea Irritable bowel syndrome Weakness generalized Other malaise and fatigue Generalized abdominal pain- Primary Abdominal pain, generalized Primary hypertension Unspecified essential hypertension Mixed hyperlipidemia Mixed hyperlipidemia Irritable bowel syndrome with diarrhea Irritable bowel syndrome Nausea Nausea alone Urinary tract infection without hematuria, site unspecified Generalized anxiety disorder with panic attacks Depression with anxiety Dysthymic disorder Acute pain of right shoulder- Primary Overweight (BMI 25.0-29.9) Overweight Acute pain of right shoulder- Primary Chronic right shoulder pain- Primary Pain in joint, shoulder region Chronic right shoulder pain- Primary Pain in joint, shoulder region Primary hypertension Unspecified essential hypertension Mixed hyperlipidemia Mixed hyperlipidemia documented in this encounter [facility] physical note Author David Martinez [facility] August 08, 2023 12:30pm Note Date/Time August 08, 2023 12:30pm [facility] [address] [place] [address] Gastroenterology H&P Signed Patient: Isabelle Hewitt I MR#: [id number] : 1975 Acct:[id number] Age/Sex: 48 / F Adm Date: 3 Loc: Room: Type: [facility] Attending Dr: David Martinez MD Copies to: MD Larry Seaman NP-Kristina~ Date of Service: 08/08/2023 HISTORY [...] signed by David Martinez MD> 08/08/23 1230 [facility] Work Phone: History general Narrative - Reported* Type Description Date Medical History anxiety Medical History Hypertension Medical History sleep apnea Surgical History C section Surgical History cholecystectomy Hospitalization History see above Hospitalization History no history of ps ychiatric hospitalization, substance abuse, and suicide attempts, but she is history of ongoing treatment of depression and counseling for depression, anxiety Hospitalization History dehydration [employer] Other H[employer]gc general Narrative - Reported* Type Description Date [...] counseling for depression, anxiety Hospitalization History dehydration [employer] Other History of Present illness Narrative* Patient [...] office in 3 to 4 months follow-up [facility] [employer] [facility] Work Phone: History of Present illness [...] monitor blood pressure call if not better [facility] [employer] Work Phone: Hospital Discharge instructions Additional [...] in the office as scheduled -Office number [phone]. [facility] Work Phone: Reason for visit Narrative* Auth/Cert Specialty Diagnoses / Procedures Referred By Casper diaz Referred To Contact Diagnoses Kidney stone KIDNEY STONES Procedures ME CYSTO/URETERO W/LITHOTRIPSY &INDWELL STENT INSRT CYSTOSCOPY URETEROSCOPY LASER-WITH L Bertha Hirsch MD [address], [address] [place] [address] [address] [place] [address] Referral ID Status Reason Start Date Expiration Date Visits Re quested Visits Authorized [id number] 1 1 [employer] Phone: reason for visit Narrative* Auth/Cert Specialty Diagnoses / Procedures Referred By Casper diaz Referred To Contact General Surgery Diagnoses DIONNE (obstructive sleep apnea) DIONNE (obstructive sleep apnea) [G47.33] Procedures PALATOPHARYNGOPLASTY UVULOPALATOPHARYNGOPLAS TY Yi Moreno MD [facility] [place] [address] [employer] [address] [place] [address] Phone: [phone] Referral ID Status Reason Start Date Expiration Date Visits Re quested Visits Authorized [id number] 3 3 [facility] NarrativeRAPID COVID TEST FOR PROCEDURE, [facility] COVID voluntary/[employer]North [employer] Other Reason for visit Narrative* Consultation (Routine) - Authorized Specialty Diagnoses / Procedures Referred By Casper diaz Referred To Contact Physical Therapy Diagnoses Acute pain of right shoulder Procedures ME OFFICE/OUTPATIENT NEW HIGH MDM 60 MINUTES Larry Kirby, PHILLY [address] [place] [address] Phone: tel: fax: Adriana Barrios, HEATHER Referral ID Status Reason Start Date Expiration Date Visits Requested Visits Authorized [id number] Authorized Consult and Treat 11/26/2024 05/19/2025 40 40 [facility]* Consultation (Routine) - Authorized Specialty Diagnoses / Procedures Referred By Contac t Referred To Contact Physical Therapy Diagnoses Acute pain of right shoulder Procedures ME OFFICE/OUTPATIENT NEW HIGH MDM 60 MINUTES Larry Kirby NP [address] [place] [address] Phone: tel: fax: Adriana Barrios, HEATHER Referral ID Status Reason Start Date Expiration Date Visits Requested Visits Authorized [id number] Authorized Consult and Treat 11/26/2024 08/21/2025 40 40 [facility] Family History No Family History Records FoundUnknown [...] Advance Directives No March 22, 2 018 7:42am Latest Code Status on File [...] Directives No March 22, 2 018 6:42am Date Activated Date Inactivated Comments [...] Diarrhea, Fecal Urgency Chief Complaint Reff By Larry roberts, Consult For Diarr r19.7 Diarrhea, Fecal [...] syndrome with diarrhea J anuary 2024 3:11pm Chief Complaint Admit Date inspire activation July 31, 2024 11:34am INSPIRE 1 MOTNTH September 04, 2024 9 :47am follow up September 10, 2024 3 :11pm 6 WEEK FOLLOW UP / CONSTIPATION October 3:19pm Reason for Visit Admit Date BMI 27.0-27.9,adult July 31, 2024 11:34am Edentulous [...] syndrome with diarrhea J anuary 2024 3:11pm Constipation October 23, 2024 3:19 pm Reason for Referral Specialty Diagnoses / Procedures Referred By Casper diaz Referred To Contact Oral Surgery Diagnoses DIONNE (obstructive sleep apnea) Yi Moreno MD [address] [place] [address] Rikki Rodrigues DMD, MD [address] [place] [address] Referral ID Status Reason Start Date Expiration Date V isits Requested Visits Authorized [id number] Pending Review 05/26/2022 05/26/2023 3 3 Scheduling Instructions Please call the gear tooth lapping machine operator [facility] at [facility] at to schedule an appointment if one was not made for you today. Question Answer Patient to be evaluated for: Orthognathic/Jaw Surgery Additional Source Comments INFORMATION SOURCE (unrecogn ized section and content) DATE CREATED AUTHOR 12/03/2021 [facility] DATE CREATED AUTHOR AUTHOR'S ORGANIZ ATION 01/31/2023 [facility] DATE CREATED AUTHOR AUTHOR'S ORGANIZ ATION 01/31/2023 [employer] DATE CREATED AUTHOR AUTHOR'S ORGANIZ ATION 06/12/2024 [facility] DATE CREATED AUTHOR AUTHOR'S ORGANIZ ATION 07/18/2024 [facility] DATE CREATED AUTHOR AUTHOR'S ORGANIZ ATION 09/15/2024 [facility] DATE CREATED AUTHOR AUTHOR'S ORGANIZ ATION 03/14/2025 [facility] DATE CREATED AUTHOR AUTHOR'S ORGANIZ ATION 04/07/2025 [facility] dical Specialists [facility] Care Teams (unrecognized sec tion and content) Team Status: Active Member Role Status Dates Larry Kirby Primary Care Provider Active Team Status: Inactive Member Role Status Dates Larry Kirby Primary Care Provider Active Yi Moreno MD Referring Provider Active Wiley Mcmanus MD Attending Provider Active Lettuce Trimmer Relationship Specialty Start Date End Date Larry Kirby [address] [place] [address] PCP - General Nurse Practitioner 11/30/21 Lettuce Trimmer Relationship Specialty Start Date End Date Larry Kirby[address] [place] [address] PCP - General Nurse Practitioner 11/30/21 Lettuce Trimmer Relationship Specialty Start Date End Date Larry Kirby[address] [place] [address] PCP - General Nurse Practitioner 11/30/21 Lettuce Trimmer Relationship Specialty Start Date End Date Yi Moreno MD [address] [place] [address] 37265 Physician Otolaryngology 01/23/22 Lettuce Trimmer Relationship Specialty Start Date End Date Yi Moreno MD [address] [place] [address] 57888 Physician Otolaryngology 01/23/22 Lettuce Trimmer Relationship Specialty Start Date End Date Yi Moreno MD [address] [place] [address] 27976 Physician Otolaryngology 01/23/22 Lettuce Trimmer Relationship Specialty Start Date End Date Yi Moreno MD [address] [place] [address] 54552 Physician Otolaryngology 01/23/22 Lettuce Trimmer Relationship Specialty Start Date End Date Larry Kirby[address] [place] [address] PCP - General Nurse Practitioner 11/30/21 Lettuce Trimmer Relationship Specialty Start Date End Date Yi Moreno MD [address] [place] [address] 22852 Physician Otolaryngology 01/23/22 Lettuce Trimmer Relationship Specialty Start Date End Date Yi Moreno MD [address] [place] [address] 22413 Physician Otolaryngology 01/23/22 Lettuce Trimmer Relationship Specialty Start Date End Date Yi Moreno MD [address] [place] [address] 11647 Physician Otolaryngology 01/23/22 Lettuce Trimmer Relationship Specialty Start Date End Date Yi Moreno MD [address] [place] [address] 81765 Physician Otolaryngology 01/23/22 Team Status: Inactive Member Role Status Dates Larry Kirby Primary Care Provider Active Wiley Mcmanus MD Attending Provider Active Yi Moreno MD Referring Provider Active Lettuce Trimmer Relationship Specialty Start Date End Date Yi Moreno MD [address] [place] [address] 76356 Physician Otolaryngology 01/23/22 Lettuce Trimmer Relationship Specialty Start Date End Date Yi Moreno MD [address] [place] [address] 98314 Physician Otolaryngology 01/23/22 Rikki Rodrigues DMD, MD [address] [place] [address] 07644 Physician Oral & Maxillofacial Surgery 06/26/22 Lettuce Trimmer Relationship Specialty Start Date End Date Yi Moreno MD [address] [place] [address] 63479 Physician Otolaryngology 01/23/22 Lettuce Trimmer Relationship Specialty Start Date End Date Yi Moreno MD [address] [place] [address] 30767 Physician Otolaryngology 01/23/22 Rikki Rodrigues DMD, MD [address] [place] [address] 81677 Physician Oral & Maxillofacial Surgery 06/26/22 Lettuce Trimmer Relationship Specialty Start Date End Date Yi Moreno MD [address] [place] [address] 35609 Physician Otolaryngology 01/23/22 Rikki Rodrigues DMD, MD [address] [place] [address] 32365 Physician Oral & Maxillofacial Surgery 06/26/22 Lettuce Trimmer Relationship Specialty Start Date End Date Yi Moreno MD [address] [place] [address] 84174 Physician Otolaryngology 01/23/22 Rikki Rodrigues DMD, MD [address] [place] [address] 42334 Physician Oral & Maxillofacial Surgery 06/26/22 Lettuce Trimmer Relationship Specialty Start Date End Date Yi Moreno MD [address] [place] [address] 98742 Physician Otolaryngology 01/23/22 Lettuce Trimmer Relationship Specialty Start Date End Date Yi Moreno MD [address] [place] [address] 35575 Physician Otolaryngology 01/23/22 Rikki Rodrigues DMD, MD [address] [place] [address] 99724 Physician Oral & Maxillofacial Surgery 06/26/22 Lettuce Trimmer Relationship Specialty Start Date End Date Yi Moreno MD [address] [place] [address] 54453 Physician Otolaryngology 01/23/22 Rikki Rodrigues DMD, MD [address] [place] [address] 52923 Physician Oral & Maxillofacial Surgery 06/26/22 Lettuce Trimmer Relationship Specialty Start Date End Date Yi Moreno MD [address] [place] [address] 42406 Physician Otolaryngology 01/23/22 Rikki Rodrigues DMD, MD [address] [place] [address] 97866 Physician Oral & Maxillofacial Surgery 06/26/22 Lettuce Trimmer Relationship Specialty Start Date End Date Yi Moreno MD [address] [place] [address] 80108 Physician Otolaryngology 01/23/22 Rikki Rodrigues DMD, MD [address] [place] [address] 45390 Physician Oral & Maxillofacial Surgery 06/26/22 Lettuce Trimmer Relationship Specialty Start Date End Date Yi Moreno MD [address] [place] [address] 26304 Physician Otolaryngology 01/23/22 Rikki Rodrigues DMD, MD [address] [place] [address] 81466 Physician Oral & Maxillofacial Surgery 06/26/22 Larry Holbrook, LINOLEUM TILE LAYER-ROOM SERVICE FOOD SERVICE ATTENDANT [address] [place] [address] 24047 NOTE KEEPER Anesthesiology 07/24/22 Lettuce Trimmer Relationship Specialty Start Date End Date Yi Moreno MD [address] [place] [address] 78581 Physician Otolaryngology 01/23/22 Rikki Rodrigues DMD, MD [address] [place] [address] 96190 Physician Oral & Maxillofacial Surgery 06/26/22 Larry Holbrook LINOLEUM TILE LAYER-ROOM SERVICE FOOD SERVICE ATTENDANT [address] [place] [address] 67453 NOTE KEEPER Anesthesiology 07/24/22 Lettuce Trimmer Relationship Specialty Start Date End Date Larry Kirby [address] [place] [address] PCP - General Nurse Practitioner 11/30/21 Lettuce Trimmer Relationship Specialty Start Date End Date Yi Moreno MD [address] [place] [address] 85988 Physician Otolaryngology 01/23/22 Rikki Rodrigues DMD, MD [address] [place] [address] 89289 Physician Oral & Maxillofacial Surgery 06/26/22 Larry Holbrook APRN-ROOM SERVICE FOOD SERVICE ATTENDANT [address] [place] [address] 88744 NOTE KEEPER Anesthesiology 07/24/22 Lettuce Trimmer Relationship Specialty Start Date End Date Yi Moreno MD [address] [place] [address] 80908 Physician Otolaryngology 01/23/22 Rikki Rodrigues DMD, MD [address] [place] [address] 26676 Physician Oral & Maxillofacial Surgery 06/26/22 Larry Holbrook APRN-ROOM SERVICE FOOD SERVICE ATTENDANT [address] [place] [address] NOTE KEEPER Anesthesiology 07/24/22 Lettuce Trimmer Relationship Specialty Start Date End Date Larry Kirby [address] [place] [address] PCP - General Nurse Practitioner 11/30/21 Lettuce Trimmer Relationship Specialty Start Date End Date Yi Moreno MD [address] [place] [address] 03522 Physician Otolaryngology 01/23/22 Rikki Rodrigues DMD, MD [address] [place] [address] 55357 Physician Oral & Maxillofacial Surgery 06/26/22 Larry Holbrook APRN-ROOM SERVICE FOOD SERVICE ATTENDANT [address] [place] [address] 75858 NOTE KEEPER Anesthesiology 07/24/22 Team Status: Inactive Member Role Status Dates Larry Kirby Primary Care Provider Active Wiley Mcmanus MD Attending Provider Active Team Status: Inactive Member Role Status Dates Larry Kirby Primary Care Provider Active Majo Lyman APRN Attending Provider Active Team Status: Inactive Member Role Status Dates Larry Kirby Primary Care Provider Active David Martinez MD Attending Provider Active Team Status: Inactive Member Role Status Dates Majo Lyman APRN Attending Provider Active Start: June 30, 2023 End: June 30, 2023 Team Status: Inactive Member Role Status Dates Larry Kirby Primary Care Provider Active Sta rt: June 30, 2023 End: June 30, 2023 Majo Lyman APRN Attending Provider Active Start: June 30, 2023 End: June 30, 2023 Team Status: Inactive Member Role Status Dates Larry Kirby Primary Care Provider Active Sta rt: August 08, 2023 End: August 08, 2023 David Martinez MD Attending Provider Active Start: August 08, 2023 End: August 08, 2023 Team Status: Inactive Member Role Status Dates Larry Kirby Primary Care Provider Active Sta rt: September 20, 2023 End: September 20, 2023 Wiley Mcmanus MD Attending Provider Active S tart: September 20, 2023 End: September 20, 2023 Team Status: Inactive Member Role Status Dates Wiley Mcmanus MD Attending Provider Active S tart: September 20, 2023 End: September 20, 2023 Team Status: Inactive Member Role Status Dates Larry Kirby Primary Care Provider Active Sta rt: October 14, 2023 End: October 14, 2023 Louise Johnson APRN Attending Provider Active Start: October 14, 2023 End: October 14, 2023 Team Status: Inactive Member Role Status Dates Larry Kirby Primary Care Provider Active Sta rt: November 02, 2023 End: November 02, 2023 Majo Lyman APRN Attending Provider Active Start: November 02, 2023 End: November 02, 2023 Team Status: Inactive Member Role Status Dates Larry Kirby Primary Care Provider Active Sta rt: December 12, 2023 End: December 12, 2023 Majo Lyman APRN Attending Provider Active Start: December 12, 2023 End: December 12, 2023 Team Status: Inactive Member Role Status Dates Larry Kirby Primary Care Provider Active Sta rt: December 14, 2023 End: December 14, 2023 Wiley Mcmanus MD Attending Provider Active S tart: December 14, 2023 End: December 14, 2023 Team Status: Inactive Member Role Status Dates Larry Kirby Primary Care Provider Active Sta rt: December 14, 2023 End: December 14, 2023 Majo Lyman APRN Attending Provider Active Start: December 14, 2023 End: December 14, 2023 Team Status: Inactive Member Role Status Dates Larry Kirby Primary Care Provider Active Sta rt: December 16, 2023 End: December 16, 2023 Wiley Mcmanus MD Attending Provider Active S tart: December 16, 2023 End: December 16, 2023 Team Status: Inactive Member Role Status Dates Larry Kirby Primary Care Provider Active Sta rt: December 29, 2023 End: December 29, 2023 Oswald Harrington Attending Provider Active Start: 2023 End: December 29, 2023 Team Status: Active Member Role Status Dates Larry Kirby Primary Care Provider Active Sta rt: December 16, 2023 Wiley Mcmanus MD Attending Provider, Other Provider Active Start: December 16, 2023 Team Status: Inactive Member Role Status Dates Larry Kirby Primary Care Provider Active Sta rt: December 29, 2023 End: December 29, 2023 Oswald Harrington DO Attending Provider Active Start : December 29, 2023 End: December 29, 2023 Team Status: Inactive Member Role Status Dates Larry Kirby Primary Care Provider Active Sta rt: March 13, 2024 End: March 13, 2024 Majo Lyman APRN Attending Provider Active Start: March 13, 2024 End: March 13, 2024 Team Status: Inactive Member Role Status Dates Larry Kirby Primary Care Provider Active Sta rt: April 16, 2024 End: April 16, 2024 Jerica Fitzpatrick APRN Attending Provider Active Start: April 16, 2024 End: April 16, 2024 Team Status: Inactive Member Role Status Dates Larry Kirby Primary Care Provider Active Sta rt: May 08, 2024 End: May 08, 2024 Majo Lyman APRN Attending Provider Active Start: May 08, 2024 End: May 08, 2024 Team Status: Inactive Member Role Status Dates Larry iKrby Primary Care Provider Active Sta rt: May 16, 2024 End: May 16, 2024 Majo Lyman APRN Attending Provider Active Start: May 16, 2024 End: May 16, 2024 Team Status: Inactive Member Role Status Dates Larry Kirby Primary Care Provider Active Sta rt: June 11, 2024 End: June 11, 2024 Majo Lyman APRN Attending Provider Active Start: June 11, 2024 End: June 11, 2024 Lettuce Trimmer Relationship Specialty Start Date End Date Magdiel Munoz MD [address] [place] [phone] PCP - General Family Medicine 03/18/23 Larry Kirby, BUSINESS PROGRAMMER [address] [place] [phone] Referring Physician Nurse Practitioner 03/18/23 Lettuce Trimmer Relationship Specialty Start Date End Date Magdiel Munoz MD [address] [place] [phone] PCP - General Family Medicine 03/18/23 Larry Kirby, BUSINESS PROGRAMMER [address] [place] [phone] Referring Physician Nurse Practitioner 03/18/23 Lettuce Trimmer Relationship Specialty Start Date End Date Yi Moreno MD [address] [place] [address] Physician Otolaryngology 01/23/22 Rikki Rodrigues DMD, MD [address] [place] [address] Physician Oral & Maxillofacial Surgery 06/26/22 Larry Holbrook, LINOLEUM TILE LAYER-ROOM SERVICE FOOD SERVICE ATTENDANT [address] [place] [phone] NOTE KEEPER Anesthesiology 07/24/22 Lettuce Trimmer Relationship Specialty Start Date End Date Magdiel Munoz MD [address] [place] [address] PCP - General Family Medicine 03/18/23 Larry Kirby NP [address] [place] [address] Referring Physician Nurse Practitioner 03/18/23 Lettuce Trimmer Relationship Specialty Start Date End Date Magdiel Munoz MD [address] [place] [phone] PCP - General Family Medicine 03/18/23 Larry Kirby NP [address] [place] [phone] Referring Physician Nurse Practitioner 03/18/23 Lettuce Trimmer Relationship Specialty Start Date End Date Magdiel Munoz MD [address] [place] [address] PCP - General Family Medicine 03/18/23 Larry Kirby NP [address] [place] [address] Referring Physician Nurse Practitioner 03/18/23 Lettuce Trimmer Relationship Specialty Start Date End Date Magdiel Munoz MD [address] [place] [address] PCP - General Family Medicine 03/18/23 Larry Kirby NP [address] [place] [address] Referring Physician Nurse Practitioner 03/18/23 Lettuce Trimmer Relationship Specialty Start Date End Date Magdiel Munoz MD [address] [place] [phone] PCP - General Family Medicine 03/18/23 Larry Kirby NP [address] [place] [address] Referring Physician Nurse Practitioner 03/18/23 Lettuce Trimmer Relationship Specialty Start Date End Date Magdiel Munoz MD [address] [place] [phone] PCP - General Family Medicine 03/18/23 Larry Kirby NP [address] [place] [phone] Referring Physician Nurse Practitioner 03/18/23 Team Status: Inactive Member Role Status Dates Larry Kirby Primary Care Provider Active Sta rt: July 13, 2024 End: July 13, 2024 Majo Lyman APRN Attending Provider Active Start: July 13, 2024 End: July 13, 2024 Team Status: Inactive Member Role Status Dates Larry Kirby Primary Care Provider Active Sta rt: July 31, 2024 End: July 31, 2024 Wiley Mcmanus MD Attending Provider Active S tart: July 31, 2024 End: July 31, 2024 Team Status: Inactive Member Role Status Dates Larry Kirby Primary Care Provider Active Sta rt: September 04, 2024 End: September 04, 2024 Wiley Mcmanus MD Attending Provider Active S tart: September 04, 2024 End: September 04, 2024 Lettuce Trimmer Relationship Specialty Start Date End Date Magdiel Munoz MD [address] [place] [phone] PCP - General Family Medicine 03/18/23 Larry Kirby NP [address] [place] [phone] Referring Physician Nurse Practitioner 03/18/23 Team Status: Inactive Member Role Status Dates Larry iKrby Primary Care Provider Active Sta rt: September 10, 2024 End: September 10, 2024 Majo Lyman APRN Attending Provider Active Start: September 10, 2024 End: September 10, 2024 Lettuce Trimmer Relationship Specialty Start Date End Date Magdiel Munoz MD [address] [place] [phone] PCP - General Family Medicine 03/18/23 Larry Kirby NP [address] [place] [address] Referring Physician Nurse Practitioner 03/18/23 Lettuce Trimmer Relationship Specialty Start Date End Date Larry Kirby APRN - BUSINESS PROGRAMMER [address] [place], [place] [phone] PCP - General Nurse Practitioner 11/30/21 Lettuce Trimmer Relationship Specialty Start Date End Date Magdiel Munoz MD [address] [place] [phone] PCP - General Family Medicine 03/18/23 Larry Kirby NP [address] [place] [phone] Referring Physician Nurse Practitioner 03/18/23 Lettuce Trimmer Relationship Specialty Start Date End Date Magdiel Munoz MD [address] [place] [phone] PCP - General Family Medicine 03/18/23 Larry Kirby NP [address] [place] [address] Referring Physician Nurse Practitioner 03/18/23 Lettuce Trimmer Relationship Specialty Start Date End Date Magdiel Munoz MD [address] [place] [address] PCP - General Family Medicine 03/18/23 Larry Kirby NP [address] [place] [address] Referring Physician Nurse Practitioner 03/18/23 Lettuce Trimmer Relationship Specialty Start Date End Date Magdiel Munoz MD [address] [place] [address] PCP - General Family Medicine 03/18/23 Larry Kirby NP [address] [place] [address] Referring Physician Nurse Practitioner 03/18/23 Lettuce Trimmer Relationship Specialty Start Date End Date Magdiel Munoz MD [address] [place] [address] PCP - General Family Medicine 03/18/23 Larry Kirby NP [address] [place] [address] Referring Physician Nurse Practitioner 03/18/23 Lettuce Trimmer Relationship Specialty Start Date End Date Magdiel Munoz MD [address] [place] [phone] PCP - General Family Medicine 03/18/23 Larry Kirby NP [address] [place] [address] Referring Physician Nurse Practitioner 03/18/23 Lettuce Trimmer Relationship Specialty Start Date End Date Magdiel Munoz MD [address] [place] [phone] PCP - General Family Medicine 03/18/23 Larry Kirby NP [address] [place] [phone] Referring Physician Nurse Practitioner 03/18/23 Team Status: Active Member Role Status Dates Larry Kirby Primary Care Provider Active Sta rt: September 24, 2024 Douglas Jaquez DO Attending Provider Active Sta rt: September 24, 2024 Team Status: Inactive Member Role Status Dates Larry Kirby Primary Care Provider Active Sta rt: October 23, 2024 End: October 23, 2024 Majo Lyman APRN Attending Provider Active Start: October 23, 2024 End: October 23, 2024 Lettuce Trimmer Relationship Specialty Start Date End Date Magdiel Munoz MD [address] [place] [phone] PCP - General Family Medicine 03/18/23 Larry Kirby NP [address] [place] [address] Referring Physician Nurse Practitioner 03/18/23 Lettuce Trimmer Relationship Specialty Start Date End Date Magdiel Munoz MD [address] [place] [address] PCP - General Family Medicine 03/18/23 Larry Kirby NP [address] [place] [address] Referring Physician Nurse Practitioner 03/18/23 Lettuce Trimmer Relationship Specialty Start Date End Date Magdiel Munoz MD [address] [place] [phone] PCP - General Family Medicine 03/18/23 Larry Kirby NP [address] [place] [address] Referring Physician Nurse Practitioner 03/18/23 Lettuce Trimmer Relationship Specialty Start Date End Date Magdiel Munoz MD [address] [place] [address] PCP - General Family Medicine 03/18/23 Lrary Kirby NP [address] [place] [address] Referring Physician Nurse Practitioner 03/18/23 Lettuce Trimmer Relationship Specialty Start Date End Date Magdiel Munoz MD [address] [place] [phone] PCP - General Family Medicine 03/18/23 Larry Kirby NP [address] [place] [address] Referring Physician Nurse Practitioner 03/18/23 Lettuce Trimmer Relationship Specialty Start Date End Date Magdiel Munoz MD [address] [place] [address] PCP - General Family Medicine 03/18/23 Larry Kirby NP [address] [place] [address] Referring Physician Nurse Practitioner 03/18/23 Lettuce Trimmer Relationship Specialty Start Date End Date Magdiel Munoz MD [address] [place] [address] PCP - General Family Medicine 03/18/23 Larry Kirby NP [address] [place] [address] Referring Physician Nurse Practitioner 03/18/23 Lettuce Trimmer Relationship Specialty Start Date End Date Magdiel Munoz MD [address] [place] [address] PCP - General Family Medicine 03/18/23 Larry Kirby NP [address] [place] [address] Referring Physician Nurse Practitioner 03/18/23 Lettuce Trimmer Relationship Specialty Start Date End Date Magdiel Munoz MD [address] [place] [address] PCP - General Family Medicine 03/18/23 Larry Kirby NP [address] [place] [address] Referring Physician Nurse Practitioner 03/18/23 Lettuce Trimmer Relationship Specialty Start Date End Date Magdiel Munoz MD [address] [place] [address] PCP - General Family Medicine 03/18/23 Larry Kirby NP [address] [place] [address] Referring Physician Nurse Practitioner 03/18/23 Lettuce Trimmer Relationship Specialty Start Date End Date Magdiel Munoz MD [address] [place] [phone] PCP - General Family Medicine 03/18/23 Larry Kirby NP [address] [place] [address] Referring Physician Nurse Practitioner 03/18/23 Lettuce Trimmer Relationship Specialty Start Date End Date Magdiel Munoz MD [address] [place] [address] PCP - General Family Medicine 03/18/23 Larry Kirby NP [address] [place] [address] Referring Physician Nurse Practitioner 03/18/23 Lettuce Trimmer Relationship Specialty Start Date End Date Magdiel Munoz MD [address] [place] [address] PCP - General Family Medicine 03/18/23 Larry Kirby NP [address] [place] [address] Referring Physician Nurse Practitioner 03/18/23 Lettuce Trimmer Relationship Specialty Start Date End Date Magdiel Munoz MD [address] [place] [address] PCP - General Family Medicine 03/18/23 Larry Kirby NP [address] [place] [address] Referring Physician Nurse Practitioner 03/18/23 Lettuce Trimmer Relationship Specialty Start Date End Date Magdiel Munoz MD [address] [place] [address] PCP - General Family Medicine 03/18/23 Larry Kirby NP [address] [place] [address] Referring Physician Nurse Practitioner 03/18/23 Lettuce Trimmer Relationship Specialty Start Date End Date Magdiel Munoz MD [address] [place] [address] PCP - General Family Medicine 03/18/23 Larry Kirby NP [address] [place] [address] Referring Physician Nurse Practitioner 03/18/23 Lettuce Trimmer Relationship Specialty Start Date End Date Magdiel Munoz MD [address] [place] [address] PCP - General Family Medicine 03/18/23 Laryr Kirby NP [address] [place] [address] Referring Physician Nurse Practitioner 03/18/23 Lettuce Trimmer Relationship Specialty Start Date End Date Magdiel Munoz MD [address] [place] [address] PCP - General Family Medicine 03/18/23 Larry Kirby NP [address] [place] [address] Referring Physician Nurse Practitioner 03/18/23 Lettuce Trimmer Relationship Specialty Start Date End Date Magdiel Munoz MD [address] [place] [address] PCP - General Family Medicine 03/18/23 Larry Kirby NP [address] [place] [address] Referring Physician Nurse Practitioner 03/18/23 Lettuce Trimmer Relationship Specialty Start Date End Date Magdiel Munoz MD [address] [place] [address] PCP - General Family Medicine 03/18/23 Larry Kirby NP [address] [place] [address] Referring Physician Nurse Practitioner 03/18/23 Lettuce Trimmer Relationship Specialty Start Date End Date Magdiel Munoz MD [address] [place] [address] PCP - General Family Medicine 03/18/23 Larry Kirby NP [address] [place] [address] Referring Physician Nurse Practitioner 03/18/23 Lettuce Trimmer Relationship Specialty Start Date End Date Magdiel Munoz MD [address] [place] [address] PCP - General Family Medicine 03/18/23 Larry Kirby NP [address] [place] [address] Referring Physician Nurse Practitioner 03/18/23 Lettuce Trimmer Relationship Specialty Start Date End Date Magdiel Munoz MD [address] [place] [address] PCP - General Family Medicine 03/18/23 Larry Kirby NP [address] [place] [address] Referring Physician Nurse Practitioner 03/18/23 Lettuce Trimmer Relationship Specialty Start Date End Date Magdiel Munoz MD [address] [place] [address] PCP - General Family Medicine 03/18/23 Larry Kirby NP [address] [place] [address] Referring Physician Nurse Practitioner 03/18/23 Lettuce Trimmer Relationship Specialty Start Date End Date Magdiel Munoz MD [address] [place] [phone] PCP - General Family Medicine 03/18/23 Larry Kirby NP [address] [place] [phone] Referring Physician Nurse Practitioner 03/18/23 Lettuce Trimmer Relationship Specialty Start Date End Date Magdiel Munoz MD [address] [place] [address] PCP - General Family Medicine 03/18/23 Larry Kirby, PHILLY [address] [place] [address] Referring Physician Nurse Practitioner 03/18/23 Scheduled Active [...] IVPB 400 mg (COMPLETED) 400 mg, IntraVENous, GREASE REMOVER TO O.R., 1 dose, On Tue01/05/22 at [...] Mims) 0850 (Given - Provider: Iglesia Amin, [place]IST[place])1206 (Given - Provider: Iglesia Amin RN)1700 (Due)2200 [...] Brown RN)1400 (Due - Provider: Dulce Olson [facility])1800 (Due - Provider: Dulce Olson [facility])2200 (Due - Provider: Dulce Olson [facility]) acetaminophen (TYLENOL) tablet (CANCELED) 650 mg, Oral, [...] RN)1553 (IV New Bag - Provider: Lauren Crawford, RN)2123 (IV New Bag - Provider: Lemuel [...] RN)2100 (Given - Provider: Lemuel Gilbert RN) 08 [...] Gilbert RN) 204 (Given - Provider: Lola Wyatt [...] Down 0901 (Given - Provider: Lauren Crawford, CALISTA) 0811 (Given - Provider: Linh Fregoso, [place]) 0916 (Given - Provider: Penny Brown, [place]) Continuous Medication Order 07/15/2022 07/16/2022 07/17/2022 dextrose [...] 4,5,6) 1704 (Given - Provider: Cleo Tao, [place]) 0409 (Given - Provider: Lola Wyatt, [place]) [...] oxymetazoline (AFRIN) 0.05 % nasal solution 2 [place], Nasal, EVERY 4 HOURS PRN, Starting on Tue07/14/22 at 1516, Until Discontinued, Nosebleed, ICU/Step Down sodium chloride (OCEAN) 0.65 % nasal spray 1 [place], Nasal, EVERY 1 HOUR PRN, Starting on Tue07/14/22 at 1516, Until Discontinued, Congestion, Congestion due to dryness, ICU/Step Down Reason for Visit (unrecogniz ed section and content) Reason Comments New patient, to establish relationship S leep Apnea, Inspire Specialty Diagnoses / Procedures Referred By Casper t Referred To Contact Ent-Otolaryngology Diagnoses Sleep apnea, unspecified type Wiley Mcmanus MD [address] [place] [address] [facility] [address] [place] [address] Referral ID Status Reason Start Date Expiration Date Visits Requested Visits Authorized [id number] Pending Review Transfer of Care-[facility] 01/01/2022 01/01/2023 3 3 Reason [...] DIONNE (obstructive sleep apnea) Yi Moreno MD [address] [place] [address] Rikki Rodrigues DMD, MD [address] [place] [address] Referral ID Status Reason Start Date Expiration Date V isits Requested Visits Authorized [id number] Pending Review 05/26/2022 05/26/2023 3 3 Reason [...] SAGITTAL SPLIT, BILATERAL Rikki Rodrigues DMD, MD [address] [place] [address] [employer] [address] [place] [address] Phone: [phone] Referral ID Status Reason Start Date Expiration Date Visits Re quested Visits Authorized [id number] 3 3 Reason Comments Post Op Check Reason Comments Menopause Reason Onset Date Comments Med Refill 09/04/2024 Reason Comments Med Refill Reason Comments Nausea Reason Comments [facility] Visit Reason Comments Cyst Pt present today for a right swollen labia/possible bartholin cyst. Patient complains of having swelling of the labia since 12/07/2024. Pt is in a lot of pain every time she wipes. Reason Comments Follow-up Reason Comments Shoulder Pain Reason Onset Date Comments MRI 01/23/2025 Reason Comments Pain Specialty Diagnoses / Procedures Referred By Contac t Referred To Contact Orthopaedic Surgery Diagnoses Chronic right shoulder pain Larry Kirby, PHILLY [address] [place] [address] Phone: tel: fax: Mark Olmedo PA [address] [place] [address] Phone: tel: fax: Referral ID Status Reason Start Date Expiration Date V isits Requested Visits Authorized [id number] Closed Specialty Services Required 01/07/2025 07/06/2025 1 1 Reason Comments chronic pain Reason Onset Date Comments wants to ask the providers nurse about her injec t 02/14/2025 Reason Onset Date Comments Unable to do the MRI due to Aspire 02/19/2025 Goals (unrecognized section and content) Goals may [...] BE BASED ON THE PRIMARY CLINICAL RECORDS. [facility] [employer]. provides no warranty or guarantee of the accuracy or completeness of information in this document.
--- NOTE | 2025-04-13 23:34 | ED.NAVMDI1 ---
HPI - Nausea/Vomiting/Diarrhea General Chief complaint: Nausea/Vomiting/Diarrhea Stated complaint: unknown Time Seen by Provider: 04/13/25 23:25 Source: patient Mode of arrival: Wheelchair Limitations: no limitations History of Present Illness HPI Narrative: patient has past history of depression, poor intake , weight loss and IBS. States with her IBS she can have either diarrhea or constipation. She also experiences nausea and vomiting like tonight. State she started vomiting about one hour ago. she is a poor eater. Admits the last time she ate was 4 days ago. At one time she was on ensure but discontinued it. She has sleep apnea and has the inspire device implanted Related Data Home Medications ?Medication ?Instructions ?Recorded ?Confirmed atenolol 100 mg tablet 100 mg PO DAILY 12/20/23 04/13/25 atorvastatin 20 mg tablet 20 mg PO DAILY 12/20/23 04/13/25 cholecalciferol (vitamin D3) 50 50 mcg PO DAILY 12/20/23 04/13/25 mcg (2,000 unit) capsule (Vitamin D3) clonazepam 1 mg tablet 1 mg PO .every PM 12/20/23 04/13/25 dicyclomine 20 mg tablet 40 mg PO BID 12/20/23 04/13/25 levothyroxine 75 mcg tablet 75 mcg PO DAILY 12/20/23 04/13/25 multivitamin 1 tab PO DAILY 12/20/23 04/13/25 psyllium 500 mg capsule 1.56 g PO DAILY 12/20/23 09/18/24 quetiapine 50 mg tablet 50 mg PO BEDTIME 12/20/23 09/18/24 trospium 60 mg capsule,extended 60 mg PO DAILY 12/20/23 04/13/25 release 24 hr venlafaxine 150 mg 150 mg PO DAILY 12/20/23 04/13/25 capsule,extended release 24 hr alosetron 1 mg tablet 1 mg PO .once evenings 09/18/24 04/13/25 loperamide 2 mg capsule 2 mg PO Q6H 09/18/24 04/13/25 Allergies Allergy/AdvReac Type Severity Reaction Status Date / Time No Known Drug Allergies Allergy Verified 04/13/25 23:19 Review of Systems ROS Status of ROS 10 or more systems reviewed and unremarkable except as noted in history and below [facility] Medical History (Updated 04/14/25 @ 03:25 by Jarad Husain MD) High cholesterol ?E78.00 - Pure hypercholesterolemia, unspecified (ICD-10) Microscopic colitis ?K52.839 - Microscopic colitis, unspecified (ICD-10) Overactive bladder ?N32.81 - Overactive bladder (ICD-10) Depression with anxiety ?F41.8 - Other specified anxiety disorders (ICD-10) Hypothyroidism ?E03.9 - Hypothyroidism, unspecified (ICD-10) DIONNE (obstructive sleep apnea) ?G47.33 - Obstructive sleep apnea (adult) (pediatric) (ICD-10) Surgical History (Updated 12/29/23 @ 11:05 by Sara Dyer) S/P breast biopsy, left ?Z98.890 - Other specified postprocedural states (ICD-10) History of bilateral salpingectomy ?Z90.79 - Acquired absence of other genital organ(s) (ICD-10) History of mandibular surgery ?Z98.890 - Other specified postprocedural states (ICD-10) S/P tonsillectomy ?Z90.89 - Acquired absence of other organs (ICD-10) Hx of lithotripsy ?Z98.890 - Other specified postprocedural states (ICD-10) H/O section ?Z98.891 - History of uterine scar from previous surgery (ICD-10) History of cholecystectomy ?Z90.49 - Acquired absence of other specified parts of digestive tract (ICD-10) Social History Little interest or pleasure in doing things: not at all Feeling down, depressed, or hopeless: not at all Exam Constitutional Vital Signs, click to edit/add: Last Vital Signs Temp 97.8 F 04/13/25 23:19 Pulse 72 04/14/25 01:54 Resp 16 04/14/25 01:54 BP 142/95 H 04/14/25 01:54 Pulse Ox 100 04/14/25 01:54 O2 Del Method Room Air 04/13/25 23:19 Common normals: oriented x3 and alert Other: appears pale and chronically ill HENMT Common normals: normocephalic and head/scalp atraumatic Eye Common normals: EOMs intact bilaterally and conjunctivae normal Respiratory Common normals: normal respiratory effort, no retractions, no use of accessory muscles and clear to auscultation bilaterally Cardio Common normals: regular rate, regular rhythm, S1 normal heart sound and S2 normal heart sound GI Other: soft with gen. nonspecific tenderness Extremity Common normals: normal to inspection and full ROM Neuro Common normals: oriented x3, CN's II-XII intact bilaterally and moves all extremities Psych Appearance: grossly normal Course Vital Signs Vital signs: Vital Signs Temperature 97.8 F 04/13/25 23:19 Pulse Rate 86 04/13/25 23:19 Respiratory Rate 16 04/13/25 23:19 Blood Pressure 139/96 H 04/13/25 23:19 Pulse Oximetry 100 04/13/25 23:19 Oxygen Delivery Method Room Air 04/13/25 23:19 Temperature 97.8 F 04/13/25 23:19 Pulse Rate 72 04/14/25 01:54 Respiratory Rate 16 04/14/25 01:54 Blood Pressure 142/95 H 04/14/25 01:54 Pulse Oximetry 100 04/14/25 01:54 Oxygen Delivery Method Room Air 04/13/25 23:19 MDM - Nausea/Vomiting/Diarrhea MDM Narrative Medical decision making narrative: patient presents complaining of recurrent vomiting. contributes this to her IBS. treated with zofran and hydration and is now feeling better. Did have episode of abnormal jerky motions while AxOx3 and speaking. states similar episode in the past. Appeared functional. Responded to Benadryl. Patient feeling better and discharged home to follow up with her doctor Lab Data Labs: Lab Results 04/13/25 04/14/25 Range/Units 23:20 01:50 WBC 7.4 (4.0-11.0) 10^3/uL RBC 4.31 (4.20-5.40) 10^6/uL Hgb 13.6 (12.0-16.0) g/dL Hct 38.9 (36.0-48.0) % MCV 90.3 (81.0-99.0) fL MCH 31.6 (26.7-34.0) pg MCHC 35.0 (29.9-35.2) g/dL RDW 11.8 (11.0-15.0) % Plt Count 230 (150-450) 10^3/uL MPV 12.0 (9.5-13.5) fL Neut % (Auto) 59.0 (43.0-75.0) % Lymph % (Auto) 31.4 (20.5-60.0) % [place] % (Auto) 8.4 (1.7-12.0) % Eos % (Auto) 0.4 L (0.9-7.0) % Baso % (Auto) 0.7 (0.2-2.0) % Neut # (Auto) 4.4 (1.4-6.5) 10^3/uL Lymph # (Auto) 2.3 (1.2-3.8) 10^3/uL [place] # (Auto) 0.6 (0.3-0.8) 10^3/uL Eos # (Auto) 0.0 (0.0-0.7) 10^3/uL Baso # (Auto) 0.1 (0.0-0.1) 10^3/uL Abs Immat Gran (auto) 0.01 (0.00-0.03) 10^3/uL Imm/Tot Granulo (auto) 0.1 (0.0-0.5) % Sodium 142 (136-145) mmol/L Potassium 3.2 L (3.5-5.1) mmol/L Chloride 105 (98-107) mmol/L Carbon Dioxide 30.7 (21.0-32.0) mmol/L Anion Gap 9.5 BUN 8.0 (7.0-18.0) mg/dL Creatinine 0.85 (0.55-1.02) mg/dL Est GFR ( Amer) >60 (>=60 mL/min/1.73m^2) Est GFR (Non-Af Amer) >60 (>=60 mL/min/1.73m^2) BUN/Creatinine Ratio 9.4 Glucose 114 H (74-106) mg/dL Lactate 2.1 H* (0.4-2.0) mmol/L Calcium 8.8 (8.5-10.1) mg/dL Total Bilirubin 0.4 (0.2-1.0) mg/dL AST 28 (15-37) U/L ALT 33 (14-59) U/L Alkaline Phosphatase 154 H (46-116) U/L Total Protein 7.0 (6.4-8.2) g/dL Albumin 3.1 L (3.4-5.0) g/dL Globulin 3.9 g/dL Albumin/Globulin Ratio 0.8 Lipase 50.0 (16.0-77.0) U/L Urine Color Yellow (YELLOW) Urine Clarity Sl cloudy (CLEAR) Urine pH 6.0 (5.0-9.0) Ur Specific [place] 1.025 (1.005-1.025) Urine Protein 30 A (NEG/TRACE) mg/dL Urine Glucose (UA) Negative (NEGATIVE) mg/dL Urine Ketones >=80 A (NEGATIVE) mg/dL Urine Occult Blood Negative (NEGATIVE) Urine Nitrite Negative (NEGATIVE) Urine Bilirubin Small A (NEGATIVE) Urine Urobilinogen 1.0 (0.2-1.0) EU/dL Ur Leukocyte Esterase Negative (NEGATIVE) Urine RBC 0-2 (0-2) #/HPF Urine WBC 2-5 A (NONE SEEN) #/HPF Ur Squamous Epith Cells Many A (NONE/RARE) #/LPF Urine Crystals None seen (None Seen) #/HPF Urine Bacteria Moderate A (NONE SEEN) #/HPF Urine Casts None seen (NONE SEEN) #/LPF Urine Mucus Moderate A (NONE SEEN) Ur Culture Indicated? Yes-[facility] [place] Discharge Plan Discharge Chief Complaint: Nausea/Vomiting/Diarrhea Clinical Impression: Irritable bowel syndrome (IBS), Vomiting Patient Disposition: Home, Self-Care Prescriptions / Home Meds: No Action atenolol 100 mg tablet 100 mg PO DAILY atorvastatin 20 mg tablet 20 mg PO DAILY clonazepam 1 mg tablet 1 mg PO .every PM levothyroxine 75 mcg tablet 75 mcg PO DAILY quetiapine 50 mg tablet 50 mg PO BEDTIME Rx Instructions: 50-150 mg venlafaxine 150 mg capsule,extended release 24hr 150 mg PO DAILY dicyclomine 20 mg tablet 40 mg PO BID psyllium 500 mg capsule 1.56 g PO DAILY cholecalciferol (vitamin D3) [Vitamin D3] 50 mcg (2,000 unit) capsule 50 mcg PO DAILY multivitamin Tablet 1 tab PO DAILY trospium 60 mg capsule,extended release 24hr 60 mg PO DAILY Rx Instructions: must be taken on empty stomach at least 1 hour before a meal/food with water only alosetron 1 mg tablet 1 mg PO .once evenings loperamide 2 mg capsule 2 mg PO Q6H Print Language: Indonesian Instructions: Irritable Bowel Syndrome (ED), Acute Nausea and Vomiting (ED) Additional Instructions: follow up with your doctor in a couple of days for recheck Referrals: Gena Kirby NP [Primary Care Provider, Family Practice] - 1 week Discharge Date/Time: 04/14/25 03:41
[2025-04-13 23:52] LABS: Hematocrit 38.9 % (36.0-48.0); Hemoglobin 13.6 g/dL (12.0-16.0); Immature Granulocytes Abs Auto 0.01 10^3/uL (0.00-0.03); Immature Granulocytes Pct Auto 0.1 % (0.0-0.5); Lymphocytes Absolute Auto 2.3 10^3/uL (1.2-3.8); Mean Corpuscular HGB Conc 35.0 g/dL (29.9-35.2); Mean Corpuscular Hemoglobin 31.6 pg (26.7-34.0); Mean Corpuscular Volume 90.3 fL (81.0-99.0); Platelet Count 230 10^3/uL (150-450); Red Blood Count 4.31 10^6/uL (4.20-5.40); White Blood Count 7.4 10^3/uL (4.0-11.0)
[2025-04-13] MEDS: 0.9 % SODIUM CHLORIDE 1,000 ML 999 ML IV (23:55)
[2025-04-14 00:03] LABS: Alanine Aminotransferase 33 U/L (14-59); Albumin Globulin Ratio 0.8; Albumin Level 3.1 g/dL (3.4-5.0); Alkaline Phosphatase 154 U/L (46-116); Anion Gap 9.5; Aspartate Amino Transferase 28 U/L (15-37); Blood Urea Nitrogen 8.0 mg/dL (7.0-18.0); Calcium 8.8 mg/dL (8.5-10.1); Carbon Dioxide 30.7 mmol/L (21.0-32.0); Chloride 105 mmol/L (98-107); Estimated GFR (African America >60 (>=60 mL/min/1.73m^2); Estimated GFR (Non-African Ame >60 (>=60 mL/min/1.73m^2); Globulin 3.9 g/dL; Glucose 114 mg/dL (74-106); Lipase 50.0 U/L (16.0-77.0); Potassium 3.2 mmol/L (3.5-5.1); Sodium 142 mmol/L (136-145); Total Protein 7.0 g/dL (6.4-8.2)
[2025-04-14 00:21] LABS: Lactate/Lactic Acid 2.1 mmol/L (0.4-2.0)
[2025-04-14] MEDS: 0.9 % SODIUM CHLORIDE 1,000 ML 999 ML IV (00:55)
[2025-04-14 01:54] VITALS: BP 142/95; PULSE 72; O2SAT 100
[2025-04-14 01:55] LABS: Glucose Urine UA NEGATIVE (NEGATIVE)
[2025-04-14 02:02] LABS: Cast Seen? NONE SEEN #/LPF (NONE SEEN); Crystals Seen? None Seen #/HPF (None Seen); Urine Culture Indicated YES-FRMC
[2025-04-14] MEDS: DIPHENHYDRAMINE HCL 50 MG/ML VIAL IVP (02:54)
== END 2025-04-14 03:41 | disposition home or self-care (01) ==
PROVIDERS: Emergency Provider Internal Medicine; PCP Nurse Practitioner
DX: K58.9 Irritable bowel syndrome, unspecified (principal); R11.2 Nausea with vomiting, unspecified; F32.A Depression, unspecified; G47.30 Sleep apnea, unspecified; Z90.49 Acquired absence of other specified parts of digestive tract; Z90.79 Acquired absence of other genital organ(s)
CPT/HCPCS: 36415; 74019; 80053; 81001; 83605; 83690; 85025; 87086; 96361; 96374; 96375; 99285; J1200; J2405

== ENCOUNTER 2025-05-04 12:47 | Outpatient (OUT) | payer OTHER, SELFPAY ==
--- OUTSIDE RECORDS SUMMARY | 2025-05-04 12:54 | XMS_ITS | CCD ---
Author Organization [facility] Care Team Providers Care General Accounting Clerk Name Role Phone Gena Kirby Unavailable Unavailable Unavailable Gena Kirby Primary Care Provider [phone] Unavailable Primary Care Provider Unavailabl e Yi [...] Corrales Unavailable Gena Kirby Primary Care Provider [phone] MD Yi Moreno Referring Provider MD Wiley Mcmanus Attending Provider Gena Corrales Unavailable AICHHOLZ, MS SQL SERVER DEVELOPER GENA Admitting Unavailable AICHHOLZ, MS SQL SERVER DEVELOPER GENA Attending Unavailable AICHHOLZ, MS SQL SERVER DEVELOPER GENA Consulting Unavailable AICHHOLZ, MS SQL SERVER DEVELOPER GENA Primary Care Unavailable LEN ., DR ARIZA Attending Unavailable LEN ., DR ARIZA Consulting Unavailable LEN ., DR ARIZA Admitting Unavailable AICHHOLZ, MS SQL SERVER DEVELOPER GENA Primary Care Unavailable WEST, DR WILEY Bryant Consulting Unavailable LEN ., DR ARIZA Attending Unavailable AICHHOLZ, MS SQL SERVER DEVELOPER GENA Primary Care Unavailable LEN ., DR ARIZA Admitting Unavailable LEN ., DR ARIZA Consulting Unavailable AICHHOLZ, MS SQL SERVER DEVELOPER GENA Primary Care Unavailable AICHHOLZ, MS SQL SERVER DEVELOPER GENA Admitting Unavailable AICHHOLZ, MS SQL SERVER DEVELOPER GENA Attending Unavailable AICHHOLZ, MS SQL SERVER DEVELOPER GENA Consulting Unavailable LEN ., DR ARIZA Attending Unavailable AICHHOLZ, MS SQL SERVER DEVELOPER GENA Primary Care Unavailable LEN ., DR ARIZA Admitting Unavailable LEN ., DR ARIZA Admitting Unavailable LEN ., DR ARIZA Attending Unavailable AICHHOLZ, MS SQL SERVER DEVELOPER GENA Primary Care Unavailable LEN ., DR ARIZA Consulting Unavailable TATETERESAMARTIN Consulting Unavailable MARGARITA II, BERTHA Consulting Unavailable LEN ., DR ARIZA Attending Unavailable AICHHOLZ, MS SQL SERVER DEVELOPER GENA Primary Care Unavailable LEN ., DR ARIZA Admitting Unavailable LEN ., DR ARIZA Attending Unavailable AICHHOLZ, MS SQL SERVER DEVELOPER GENA Primary Care Unavailable LEN ., DR ARIZA Admitting Unavailable LEN ., DR ARIZA Consulting Unavailable LEN ., DR ARIZA Admitting Unavailable LEN ., DR ARIZA Attending Unavailable AICHHOLZ, MS SQL SERVER DEVELOPER GENA Primary Care Unavailable AICHHOLZ, MS SQL SERVER DEVELOPER GENA Primary Care Unavailable AICHHOLZ, MS SQL SERVER DEVELOPER GENA Attending Unavailable AICHHOLZ, MS SQL SERVER DEVELOPER GENA Admitting Unavailable AICHHOLZ, MS SQL SERVER DEVELOPER GENA Consulting Unavailable LEN ., DR ARIZA Attending Unavailable LEN ., DR ARIZA Consulting Unavailable AICHHOLZ, MS SQL SERVER DEVELOPER GENA Primary Care Unavailable LEN ., DR ARIZA Admitting Unavailable ZIEBER, DR MADDI Wild Consulting Unavailable AICHHOLZ, MS SQL SERVER DEVELOPER GENA Consulting Unavailable AICHHOLZ, MS SQL SERVER DEVELOPER GENA Primary Care Unavailable AICHHOLZ, MS SQL SERVER DEVELOPER GENA Attending Unavailable AICHHOLZ, MS SQL SERVER DEVELOPER GENA Admitting Unavailable MISC, DR PETERS Admitting Unavailable MISC, DR PETERS Attending Unavailable MISC, DR PETERS Consulting Unavailable AICHHOLZ, MS SQL SERVER DEVELOPER GENA Primary Care Unavailable AICHHOLZ, MS SQL SERVER DEVELOPER GENA Primary Care Unavailable AICHHOLZ, MS SQL SERVER DEVELOPER GENA Attending Unavailable AICHHOLZ, MS SQL SERVER DEVELOPER GENA Admitting Unavailable AICHHOLZ, MS SQL SERVER DEVELOPER GENA Consulting Unavailable PROVIDER, UNKNOWN Admitting Unavailable PROVIDER, UNKNOWN Attending Unavailable HERMES, YI Monroy. Referring Unavailabl e WEIDENBECHER, YI S. Admitting Unavailabl e WEIDENBECHER, YI Monroy. Attending Unavailabl e WEIDENBECHER, YI Rebollar Referring Unavailabl e CLEMOW, RIKKI Admitting Unavailable PROVIDER, UNKNOWN Attending Unavailable PROVIDER, UNKNOWN Admitting Unavailable PROVIDER, UNKNOWN Attending Unavailable PATIENT, SELF Referring Unavailable PROVIDER, UNKNOWN Admitting Unavailable PROVIDER, UNKNOWN Attending Unavailable HERMES, YI Monroy. Referring Unavailabl e PROVIDER, UNKNOWN Admitting Unavailable PROVIDER, UNKNOWN Attending Unavailable PATIENT, SELF Referring Unavailable PROVIDER, UNKNOWN Admitting Unavailable PROVIDER, UNKNOWN Attending Unavailable HERMES, YI Monroy. Referring Unavailabl e PROVIDER, UNKNOWN Admitting Unavailable PROVIDER, UNKNOWN Attending Unavailable CLEMOW, RIKKI Referring Unavailable WEIDENCLEMENTINA, YI Rebollar Admitting Unavailabl e WEIDENBECHER, YI Monroy. Attending Unavailabl e CLEMOW, RIKKI Admitting Unavailable [...] Lyman Unavailable Gena Kirby Primary Care Provider [phone] KATHRIN Lyman Attending Provider MD David Martinez Attending Provider David Martinez Unavailable MD Wiley Mcmanus Attending Provider Gena Kirby Primary Care Provider [phone] Gena Kirby Primary Care Provider MD Wiley Mcmanus Attending Provider [phone] KATHRIN Lyman Attending Provider Gena Kirby Primary Care Provider MD Wiley Mcmanus Attending Provider Oswald Harrington Attending Provider DO Oswald Harrington Attending Provider Gena Kirby Primary Care Provider [phone] KATHRIN Lyman Attending Provider KOFI TORRES, GENA Primary Care Unavailable DESIREE SYKES DO Consulting Unavailable HERMES ERNST~[id number], HERMES Monroy Admitting Unavailable HERMES ERNST~[id number], HERMES Monroy Attending Unavailable DESIREE SYKES DO Consulting Unavailable CHRIS PATE CRNA Consulting Unavailable CHRIS PATE CRNA Consulting Unavailable Kofi DENTAL RECEPTIONIST, Gena Unavailable Magdiel Munoz MD Primary Care Provider [phone] Matthew RITCHIE MD, Rikki Unavailable Kofi CO DIRECTOR - DENTAL RECEPTIONIST, Gena Andino. Primary Care Provide r ELIN BALLARD Referring Unavailable GENA KIRBY. Primary Care Unavailable GENA KIRBY. Primary Care Unavailable ELIN BALLARD Referring Unavailable Gena Kirby Primary Care Provider Jarad Husain MD Attending Provider [phone] Jarad Husain Admitting Unavailable Jarad Husain Attending Unavailable Gena Kirby Primary Care Unavailable Majo Lyman Admitting Unavailable Majo Lyman Attending Unavailable Gena Kirby Primary Care Unavailable AICHHOLZ, GENA Attending Unavailable AICHHOLZ, GENA Attending Unavailable AICHHOLZ, GENA Attending Unavailable AICHHOLZ, GENA Attending Unavailable CHAGOAUREA BALL Attending Unavailable BARRIOS, ADRIANA Attending Unavailable AICHHOLZ, GENA Referring Unavailable BARRIOS, ADRIANA Attending Unavailable AICHHOLZ, GENA Referring Unavailable KELBLEY, MARY Attending Unavailable AICHHOLZ, GENA Referring Unavailable BARRIOS, ADRIANA Attending Unavailable AICHHOLZ, GENA Referring Unavailable LEN, OSWALD Attending Unavailable KELBLEY, MARY Attending Unavailable AICHHOLZ, GENA Referring Unavailable KELBLEY, MARY Attending Unavailable AICHHOLZ, GENA Referring Unavailable LEN, OSWALD Attending Unavailable BARRIOS, ADRIANA Attending Unavailable AICHHOLZ, GENA Referring Unavailable AICHHOLZ, GENA Attending Unavailable AICHHOLZ, GENA Attending Unavailable AUREA MARC Attending Unavailable HARSHA CARRASCO Attending Unavailable AICHHOLZ, GENA Referring Unavailable AICHHOLZ, GENA Attending Unavailable BARRIOS, ADRIANA Attending Unavailable AICHHOLZ, GENA Referring Unavailable BARRIOS, ADRIANA Attending Unavailable AICHHOLZ, GENA Referring Unavailable BARRIOS, ADRIANA Attending Unavailable AICHHOLZ, GENA Referring Unavailable HARSHA CARRASCO Attending Unavailable AICHHOLZ, GENA Referring Unavailable MARK OLMEDO Attending Unavailable AICHHOLZ, GENA Referring Unavailable AICHHOLZ, GENA Attending Unavailable JR. VALENTINO GEORGE C Attending Unavaila ble RHINA AMOR Attending Unavailable Martínez Correa DO Attending Provider [phone] Majo Lyman APRN Attending Provider MAJO MIX Attending Unavailable AICHHOLZ, GENA J Referring Unavailable AICHHOLZ, GENA J Primary Care Unavailable MAJO MIX Attending Unavailable AICHHOLZ, GENA J Referring Unavailable AICHHOLZ, GENA J Primary Care Unavailable MAJO MIX Attending Unavailable AICHHOLZ, GENA J Referring Unavailable AICHHOLZ, GENA J Primary Care Unavailable MAJO MIX Attending Unavailable AICHHOLZ, GENA J Referring Unavailable AICHHOLZ, GENA J Primary Care Unavailable MAJO MIX Attending Unavailable AICHHOLZ, GENA J Referring Unavailable AICHHOLZ, GENA J Primary Care Unavailable MAJO MIX Attending Unavailable GENA KIRBY Referring Unavailable GENA KIRBY Primary Care Unavailable Kofi FRAGALauritaa Unavailable Medications Current Medications Medication Drug Class(es) [...] Start: 02-25-2022 take 2 tablets by mo [facility] every four hours as needed acetaminophen (TYLENOL) [...] mouth Daily 90 tablet 1 11/25/2024 Active atorvastatin 20 mg oral tablet (20 sources) HMG-CoA Reductase Inhibitor Start: 10-14-2023 End: 06-24-2025 take 1 tablet by mouth in the evening atorvastatin (Lipitor) 20 MG tablet Indications: Mixed hyperlipidemia Take 1 tablet (20 mg) by mouth in the evening 90 tablet 1 03/26/2025 06/24/2025 Active Start: 07-14-2022 take 20 mg by [...] ICU/Step Down cholecalciferol 0.05 mg oral capsule (20 sources) Vitamin D Start: 10-14-2023 take 1 capsule by mo ut once daily take 1 capsule by [facility] every twenty-four hours Vitamin D3 50 [...] Down Start: 01-06-2022 take 1 tablet by [facility] twice daily as needed for anxiety KlonoPIN 1 MG tablet Take 1 mg by mouth 2 (two) times a day as needed for anxiety Active take 1 tablet by [facility] once daily as needed KlonoPIN 1 MG Oral Tablet TAKE 1 TABLET Daily prn Quantity: 0 Refills: 0 Ordered: 14-Oct-2021 DO Active dicyclomine hydrochloride 10 mg oral capsule (20 sources) Anticholinergic Start: 08-12-2023 End: 11-02-2023 Start: 08-12-2023 End: 09-10-2024 take 1 capsule by mouth four times daily Dicyclomine 10 mg capsule Discontinued 10 MG PO Four times daily November 02, 2023 4:03pm September 10, 2024 4:17pm 0.4 ml enoxaparin sodium 100 mg/ml prefilled [...] sources) Nonsteroidal Anti-inflammatory Drug Start: 04-16-2024 End: 11-14-2024 take 1 tablet by mouth every eight hours as needed for pain Start: 07-14-2022 End: 07-24-2022 take 1 tablet [...] Tue01/05/22 at 1558, Until Tu01/05/22 at 2359, Nausea Secondary antiemetic therapy. PACU [...] by mouth once daily Multiple Vitamins-Minerals (THERAPEUTIC MULTIVITAMIN-KETTLE ROOM HELPER ALS) tablet Take 1 tablet by mouth daily 0 Suspended take 1 tablet by mouth once gagan y Multiple Vitamins-Minerals (THERAPEUTIC MULTIVITAMIN-MINERALS) tablet Take 1 tablet by mouth daily 0 Active Multivitamin (One Daily Multivitamin) tablet (17 sources) Start: 10-14-2023 take 1 tablet by rosy th once daily Start: 10-14-2023 take 1 tablet by rosy th once daily Multivitamin (One Daily Multivitamin) tablet Active 1 TAB PO Daily October 14, 2023 1:00am Start: 10-14-2023 take 1 tablet by rosy th once daily Multivitamin (One Daily Multivitamin) tablet Active 1 TAB PO Daily October 14, 2023 12:00am Multivitamin preparation (9 sources) Multivitamin Act kat 1 ml naloxone hydrochloride 0.4 mg/ml injection [...] 11/17/2021 Active take 2 tablets by mo msh at bedtime OLANZapine (ZyPREXA) 5 MG tablet Take 10 mg by mouth. hs Active ondansetron 4 mg oral tablet (20 sources) Serotonin-3 Receptor Antagonist Start: 09-10-2024 End: 10-09-2024 take 1 tablet by mouth every eight hours as needed for nausea and vomiting Start: 10-14-2023 End: 09-10-2024 take 1 tablet by mouth every eight hours as needed for nausea and vomiting Ondansetron Hcl 8 mg tablet Discontinued 8 MG PO Q8H as needed for nausea and vomiting 11 03October 14, 2023 1:00am September 10, 2024 4:16pm Start: 07-14-2022 take 4 mg intravenou sly [...] iate release tablet 5 mg Peppermint oil (5 sources) Start: 09-10-2024 Start: 09-10-2024 peppermint oil Active PO September [...] needed for Congestion. 30 Tablet 07/17/2022 Active psyllium 400 mg oral capsule (3 sources) Start: 10-14-2023 Psyllium Husk (Fiber (Psyllium [...] tablet (20 sources) Atypical Antipsychotic Start: 10-14-2023 Start: 09-14-2022 End: 10-09-2024 take 2 tablets [...] Active saccharomyces boulardii 250 mg oral capsule (17 sources) Start: 10-14-2023 take 1 capsule by mouth once daily sodium chloride 0.111 meq/ml nasal solution (16 sources) Start: 07-17-2022 take 1 spray(s) nasa l route twice daily as needed for congestion sodium chloride (Elcho Nasal [place]) 0.65 % nasal spray Use 1 [place] in each nostril as needed for Congestion (2 puffs nasally twice daily). 1 mL 3 07/17/2022 Active Start: 07-14-2022 1 [place], Nasal , EVERY 1 HOUR PRN, Starting [...] Start: 11-02-2023 take 1 capsule by mo [facility] every twenty-four hours Start: 11-02-2023 End: 08-06-2024 take 1 capsule by mouth once daily trospium (SANCTURA) 60 MG CP24 extended release capsule Indications: Urge incontinence , OAB (overactive bladder) TAKE 1 CAPSULE BY MOUTH DAILY 90 capsule 1 04/03/2024 Active take 1 tablet by rosy twice daily Trospium Chloride 20 MG TAKE [...] by mo ut once daily at mealtime Start: 11-30-2021 take 1 capsule by [facility] once daily at mealtime take 1 capsule by mo [facility] every twenty-four hours in the morning venlafaxine [...] tablet Discontinued 1 MG PO Twice daily June 11, 2024 12:00am October 23, 2024 4:23pm Start: 05-16-2024 End: 06-11-2024 take 1 tablet by mouth once daily Alosetron (Lotronex) 0.5 mg tablet Discontinued 0.5 MG PO Daily May 16, 2024 12:00am June 11, 2024 4:00pm amitriptyline hydrochloride 10 mg oral tablet (20 [...] 05/02/2024 06/19/2024 Discontinued (Therapy completed) bifidobacterium animalis [id number] unt / lactobacillus acidophilus [id number] unt oral capsule (2 sources) Probiotic CAPS U SE DIRECTED. Quantity: 0 Refills: 0 Ordered: 14-Oct-2021 DO Active bisacodyl 5 mg delayed release oral tablet (1 source) Stimulant Laxative Start: 022 take 10 mg by mouth once daily as needed 10 mg, Oral, DAILY PRN, Starting on Tue07/14/22 at 1516, Until Discontinued, Constipation, ICU/Step Down budesonide 3 mg delayed release oral capsule (20 sources) Corticosteroid Start: 024 End: 025 take 3 tablets by mouth once daily Budesonide Discontinued 9 MG PO Once November 02, 2023 4:02pm December 12, 2023 3:56pm 3 tablets once daily for 1 month. Start: 08-10-2023 End: 12-12-2023 take 3 tablets by mouth once daily Budesonide 3 mg capsule,delayed,extend.release Discontinued 9 MG PO Once November 02, 2023 4:02pm December 12, 2023 [...] fumarate 8 mg extended release oral tablet (18 sources) Start: 10-14-2023 End: 11-02-2023 take 1 tablet by mouth once daily Fesoterodine 8 mg tablet extended release 24 hr Discontinued 8 MG PO Daily October 14, 2023 1:00am November 02, 2023 3:38pm FreeTextSig: TAKE 1 TABLET BY MOUTH DAILY Oral; Note: Source Status: Taking; Refills: 0; Qty: 30 Each; Provider: ELIO WORTHINGTON take 1 tablet by mouth once gagan je Fesoterodine Fumarate ER 8 MG TAKE 1 TABLET BY MOUTH DAILY Oral for 30 Days Active HYDROmorphone (DILAUDID) 0.2 MG/ML injection 0.2 mg (1 source) Start: 02-25-2022 End: 02-25-2022 HYDROmorphone (DILAUDID) 0.2 MG/ML injection 0.2 mg IB Guard (7 sources) Start: 06-11-2024 End: 09-10-2024 IB Guard Discontinued PO as needed June 11, 2024 12:00am September 10, 2024 4:16pm Start: 06-11-2024 End: 09-10-2024 IB Guard Discontinued [...] 12:00am May 16, 2024 3:45pm Start: 04-16-2024 End: 05-16-2024 Lidocaine 5 % [...] mouth Daily 08/06/2024 11/20/2024 Discontinued (Therapy completed) 24 hr mesalamine 375 mg extended release oral capsule (16 sources) Aminosalicylate Start: 12-12-2023 End: 12-12-2023 take 1 capsule by mouth once daily Mesalamine (Apriso) 0.375 gram capsule,extended release 24hr Discontinued 1.5 GM PO Daily December 12, 2023 12:00am December 12, 2023 4:08pm Start: 12-12-2023 End: 12-12-2023 take 1 capsule [...] TAB PO Daily October 14, 2023 1:00am July 13, 2024 3:05pm FreeTextSi tablet with a meal Orally Once [...] 0 Refills: 0 Ordered: 14-Oct-2021 DO Active multivitamin with minerals (Centrum) 9-200 mg-mcg tablet split tablet (20 sources) Start: 10-14-2023 End: 04-05-2025 take 1 tablet by mouth once daily multivitamin with minerals (Centrum) 9-200 mg-mcg tablet split tablet Take 1 tablet by mouth Daily 10/14/2023 04/05/2025 Discontinued Start: 10-14-2023 take 1 tablet by rosy once daily multivitamin with minerals (Centrum) 9-200 mg-mcg tablet split tablet Take 1 tablet by mouth Daily 10/14/2023 Active Fannie-BE (5 sources) Fannie-BE Not-Taki ng Fannie-BE Active Fannie-BE 0.35 MG Oral Tablet (2 sources) take 1 tablet by mouth once daily Fannie-BE 0.35 MG Oral Tablet TAKE 1 TABLET DAILY. Quantity: 0 Refills: 0 Ordered: 14-Oct-2021 DO Active oseltamivir 75 mg oral capsule (16 sources) Neuraminidase Inhibitor Start: 10-14-19 End: 11-02-19 take 1 capsule by mouth twice daily Oseltamivir (Tamiflu) 75 mg capsule Discontinued 75 MG PO Twice daily 10 5 October 14, 2023 1:00am November 02, 2023 3:39pm oxymetazoline hydrochloride 0.5 mg/ml nasal spray (1 source) Start: 07-14-20 2 [place], Nasal, EVERY 4 HOURS PRN, Starting on Tue07/14/22 at 1516, Until Discontinued, Nosebleed, ICU/Step Down potassium phosphate 15 mmol injection in D5W (1 source) Start: 07-16-20 End: 07-16-20 potassium phosphate 15 mmol injection in D5W predniSONE 20 mg oral tablet (16 sources) Start: 10-14-19 End: 11-02-19 take 1 tablet by mouth twice daily Prednisone 20 mg tablet Discontinued 20 MG PO Twice daily 10 October 14, 2023 1:00am November 02, 2023 3:39pm sennosides, long-term 1.76 mg/ml oral solution (20 sources) Start: [...] 02/25/2022 Active valACYclovir 1000 mg oral tablet (19 sources) Herpesvirus Nucleoside Analog DNA Polymerase Inhibitor, [...] 16, 2024 12:00am May 16, 2024 3:46pm Start: 04-16-2024 End: 05-16-2024 take 1000 mg [...] 08-18-2023 Chronic Disorders of teeth and jaw (11 sources) Edentulous; Translations: [Complete loss of teeth, [...] Onset: 05-11-2022 Chronic Miscellaneous mental health disorders (20 sources) Not getting enough sleep; Translations: [Insufficient sleep syndrome] Chronic Mood disorders (20 sources) Acute depression; Translations: [Acute depression] Onset: 11-09-2021 Resolved: 11-09-2021 11-19-2021 Chronic Mood disorders (2 sources) Mood disorders; Translations: [DEPRESSION UNSPECIFIED] Onset: 11-16-2022 Noninfectious gastroenteritis (20 sources) Microscopic colitis; Translations: [Microscopic colitis, unspecified] Onset: 08-08-2023 11-02-2023 Chronic Other aftercare (2 sources) Other jail (current) drug therapy; Translations: [[facility] CURRENT DRUG THERAPY] Onset: 11-16-2022 Episodic Other complications of ; puerperium affecting management of mother (11 sources) Deliveries by ; Translations: [Delivery by section] 03-13-2024 Episodic Other connective tissue disease (2 sources) Pain of bilateral upper limbs; Translations: [Pain in right arm] 04-23-2025 Episodic Other diseases of bladder and urethra [...] bowel syndrome] 06-11-2024 Chronic Other gastrointestinal disorders (5 sources) Irritable bowel syndrome; Translations: [Irritable bowel syndrome without diarrhea] 10-23-2024 Chronic Other gastrointestinal disorders (20 sources) Diarrhea; Translations: [Diarrhea, unspecified] 11-02-2023 Episodic Other gastrointestinal disorders (7 sources) Diarrhea, unspecified; Translations: [Diarrhea] Episodic Other gastrointestinal disorders (13 sources) Fecal urgency; Translations: [Fecal urgency] Episodic Other gastrointestinal disorders (16 sources) Urgent desire for stool; Translations: [Fecal urgency] 11-02-2023 Episodic Other gastrointestinal disorders (5 sources) Other specified symptoms and signs involving the digestive system and abdomen; Translations: [Other symptoms involving digestive system] 12-12-2023 Episodic Other gastrointestinal disorders (5 sources) Abdominal distension (gaseous); Translations: [Flatulence, eructation, and gas pain] 12-12-2023 Episodic Other gastrointestinal disorders (11 sources) Constipation; Translations: [Constipation, unspecified] 03-13-2024 Episodic Other liver diseases (1 source) Alkaline phosphatase raised; Translations: [Abnormal levels of other serum enzymes] 04-23-2025 Episodic Other lower respiratory disease (15 sources) Cough; Translations: [Subacute cough] Onset: 09-25-2024 09-25-2024 Episodic Other nervous system disorders (20 sources) Sleep-wake schedule disorder, delayed phase type; Translations: [Circadian rhythm sleep disorder, delayed sleep phase type] 03-13-2024 Chronic Other nervous system disorders (2 sources) Circadian rhythm sleep disorder, delayed sleep phase type Onset: 11-09-2021 Resolved: 11-09-2021 Chronic Other nervous system disorders (1 source) Postoperative pain ; Translations: [Other acute postprocedural pain] Episodic Other non-traumatic joint disorders (6 sources) Derangement of right shoulder joint; Translations: [Other specific joint derangements of right shoulder, not elsewhere classified] 01-23-2025 Chronic Other non-traumatic joint disorders (8 sources) Disorder of shoulder; Translations: [Other specified [...] Chronic Other nutritional; endocrine; and metabolic disorders (6 sources) Overweight in adulthood with body mass [...] fitting of prostheses; and adjustment of devices (11 sources) Follow-up status; Translations: [Encounter for adjustment and management of other implanted nervous system device] 07-31-2024 Episodic Residual codes; unclassified (20 sources) Obstructive sleep apnea syndrome; Translations: [Obstructive sleep apnea (adult)(pediatric)] Onset: 01-15-2022 Chronic Residual codes; unclassified (20 sources) Sleep apnea; Translations: [Sleep apnea, unspecified] 11-19-2021 Chronic Residual codes; unclassified (20 sources) Insomnia; Translations: [Other insomnia] 03-13-2024 Chronic Residual codes; unclassified (10 sources) Obstructive sleep apnea (adult) (pediatric); Translations: [Obstructive sleep apnea (adult)(pediatric)] Onset: 11-09-2021 Resolved: 11-09-2021 Chronic Residual codes; unclassified (2 sources) Other insomnia; Translations: [Other insomnia] Onset: 11-09-2021 Resolved: 11-09-2021 Chronic Residual codes; unclassified (1 source) Sleep apnea, unspecified; Translations: [SLEEP APNEA UNSPECIFIED] Onset: 11-16-2022 Chronic Residual codes; unclassified (2 sources) Edema [...] specified health status Episodic Residual codes; unclassified (6 sources) Past history of procedure; Translations: [Presence [...] Onset: 11-09-2021 Resolved: 11-09-2021 Chronic Thyroid disorders (16 sources) Disorder of thyroid gland; Translations: [Disorder of thyroid, unspecified] 11-02-2023 Episodic Unclassified (1 source) ENCOUNTER OPENED IN ERROR Unclassified (3 sources) CONTACT W/AND (SUSP) EXPOS COVID-19; Translations: [CONTACT W/AND (SUSP) EXPOS COVID-19] Onset: 12-04-2022 Unclassified (4 sources) Chronic pain of right upper limb [...] Onset: 01-25-2024 12-12-2023 Episodic Other gastrointestinal disorders (7 sources) Constipation, unspecified; Translations: [Constipation, unspecified] Onset: 05-08-2024 03-13-2024 Episodic Other lower respiratory disease (20 sources) Cough; Translations: [Subacute cough] Onset: 09-25-2024 09-25-2024 Episodic Other non-traumatic joint disorders (20 sources) Pain in right shoulder; Translations: [Pain in joint, shoulder region] Onset: 11-07-2024 11-14-2024 Episodic Other non-traumatic joint disorders (20 sources) Chronic pain of right upper limb; Translations: [Pain in right shoulder] Onset: 01-07-2025 01-07-2025 Episodic Other nutritional; endocrine; and metabolic disorders [...] Test Name Value Interpretation Reference Range Facility Urine Cultureon 04-14-2025 Bacteria identified Cx Nom (U) 20,000 colonies/ml mixed bacterial skin contaminants 2 Days PERFORMED BY: [place] [id number] PATHOLOGIST MATERIAL CONTROL CLERK ESTELA PETERS M.D. Normal [facility] Comment on above: Performed By: #### C UU #### [address] Urine cultureOrdered By: Faraz Husain on 04-14-2025 Bacteria identified Cx Nom (U) 2 Days [facility] No Panel Informationon 01-22 EVERETTE Cunningham 01/22/2025 4:55 PM L Inj/Asp: R subacromial bursa on 01/22/2025 2:36 PM Indications: pain Details: 21 G needle, posterior approach Medications: 40 mg methylPREDNISolone acetate 40 MG/ML Outcome: tolerated well, no immediate complications Utilizing aseptic technique with universal precautions . Pt given injection Right Shoulder SA space (Code 24325 RT) Procedure, treatment alternatives, risks and benefits explained, specific risks discussed. Consent was given by the patient. [facility] Urinalysis macro (dipstick) panel (U)on 12-11-2024 Bilirubin, UA Negative Negative - 4(70) +++ mg/dL [facility] Blood, UA Negative Negative - 50 Arun/mcL [facility] Clarity, UA Clear [facility] Color, UA Yellow [facility] Glucose, UA Negative Negative - 1999(110) ++++ mg/dL [facility] Interpretation and review of laboratory results Normal [facility] Ketones, UA Negative Negative - 160(16) ++++ mg/dL [facility] Leukocytes, UA Trace Negative - 500+++ Mina/mcL [facility] Nitrite, UA Negative Negative - Positive [facility] pH, UA 5.5 5 - 9 [facility] Protein, UA Negative Negative - 2000(20) ++++ mg/dL [facility] Spec Grav, UA 1.005 1 - 1.03 [facility] Urobilinogen, UA 0.2 0.2 - 12 mg/dL [facility] IGP,APTIMA HPV,AGE GDLNon AGE GDLN ACOG TESTING Note . [facility] Comment on above: TESTS RESULT FLAG UN ITS REF RANGE LAB Clinician Provided Cytology Information Source.............Cervix;Endocervix No. of containers..01 ThinPrep Vial Age Algo ACOG Elizabeth... 30 FLAG LEGEND: L-Low Normal,H-High Normal,LL-Alert Low,HH-Alert High <-Panic Low,>-Panic High,A-Abnormal,AA-Critical Abnormal Performed at: 01 =[address] [address] Corrie Milner MD, HPV APTIMA Positive Abnormal Negative [facility] Comment on above: This nucleic acid am plification test detects fourteen high- risk HPV types (16,18,31,33,35,39,45,51,52,56,58,59,66,68) without differentiation. HPV GENOTYPE 16 Negative Negative [facility] HPV GENOTYPE 18,45 Negative Negative [facility] Comment on above: Performed at: =G - [address] [id number] [employer] Supervisor: Corrie Milner MD, Phone: [phone] Performed at: [address] [id number] [employer] Supervisor: Corrie Milner MD, Phone: [phone] IGP, APTIMA HPV, RFX 16/18,45 Note . [facility] Comment on above: TESTS RESULT FLAG U NITS REF RANGE LAB DIAGNOSIS: 02 NEGATIVE FOR INTRAEPITHELIAL LESION OR MALIGNANCY. Specimen adequacy: 02 Satisfactory for evaluation. No endocervical component is identified. Performed by: 02 Barbie Medel, Certified Personal Chef (ASCP) . 02 Note: Note 02 The Pap smear is a screening test designed to aid in the detection of premalignant and malignant conditions of the uterine cervix. It is not a diagnostic procedure and should not be used as the sole means of detecting cervical cancer. Both false-positive and false-negative reports do occur. Test Methodology: Note 02 The Thin Prep(R) Field Technical Specialist was unable to read this specimen. Therefore a manual review was performed. FLAG LEGEND: L-Low Normal,H-High Normal,LL-Alert Low,HH-Alert High <-Panic Low,>-Panic High,A-Abnormal,AA-Critical Abnormal Performed at: [address] [address] Corrie Milner MD, HPV Genotype Reflex Note 02 Criteria met, see HPV Genotype results. Criteria met, see HPV Genotype results. Interpretation and review of laboratory results Abnormal [facility] BRUSH-SPATULA CERVIX ENDOCERVIX [facility] [place] [address] XRay Report Signed Patient: ISABELLE HEWITT I MR#: [id number] : 1975 Acct:[id number] Age/Sex: 49 / F ADM Date: 09/25/24 Loc: LAB Attending Dr: Gena Kirby NP Ordering Physician: Gena Kirby NP Date of Service: 09/25/24 Procedure(s): XR acute abdomen series Accession Number(s): [id number] cc: Gena Kirby NP [facility] [place] [id number] Patient Name: ISABELLE HEWITT MRN: [facility]:[id number] date: 1975 Sex: F Assigned Patient Location: LAB Current Patient Location: Accession/Order Number: [id number] Exam Date: 09/25/2024 15:58 Report Date: 09/27/2024 10:33 At the request of: GENA KIBRY Procedure: XR acute abdomen series EXAMINATION: XR [...] James M.D. Signed By: 09/27/24 1036 DD/ 1033 TD/TT: Water Safety Instructor: [facility] Radiology, Radiologist, - 09/28/2024 [place] [address] XRay Report Signed Patient: ISABELLE HEWITT I MR#: [id number] : 1975 Acct:[id number] Age/Sex: 49 / F ADM Date: 09/25/24 Loc: LAB Attending Dr: Gena Kirby NP Ordering Physician: Gena Kirby NP Date of Service: 09/25/24 Procedure(s): XR acute abdomen series Accession Number(s): [id number] cc: Gena Kirby NP [facility] [place] [id number] Patient Name: ISABELLE HEWITT MRN: [facility]:[id number] date: 1975 Sex: F Assigned Patient Location: LAB Current Patient Location: Accession/Order Number: [id number] Exam Date: 09/25/2024 15:58 Report Date: 09/27/2024 10:33 At the request of: GENA KIRBY Procedure: XR acute abdomen series EXAMINATION: [...] James M.D. Signed By: 09/27/24 1036 DD/ 1033 TD/TT: Water Safety Instructor: [facility] Radiology Study observation (narrative) [facility] XR ACUTE ABDOMEN SERIESOrder ed By: Radiologist Radiology on 09-27-2024 [facility] Work Phone: ALL CBC WITH AUTO DIFFon BASOPHILS ABSOLUTE AUTO 0 N [facility] Basophils/100 WBC (Bld) 0.5 % 0.2 - 2.0 % [facility] Eosinophils/100 WBC (Bld) 2.1 % 0.9 - 7.0 % [facility] Erythrocyte distribution width (RBC) [Ratio] 11.5 % 11.0 - 15.0 % [facility] Hematocrit (Bld) [Volume fraction] 42.5 % 36.0 - 48.0 % [facility] Hemoglobin (Bld) [Mass/Vol] 14.2 g/dL 12.0 - 16.0 g/dL [facility] IMMATURE GRANULOCYTES ABS AUTO 0.02 [facility] Immature granulocytes/100 WBC (Bld) 0.3 % 0.0 - 0.5 % [facility] LYMPHOCYTES ABSOLUTE AUTO 2.1 [facility] Lymphocytes/100 WBC (Bld) 33.6 % 20.5 - 60.0 % [facility] MCH (RBC) [Entitic mass] 31.3 pg 26.7 - 34.0 pg [facility] MCHC (RBC) [Mass/Vol] 33.4 g/dL 29.9 - 35.2 g/dL [facility] MCV (RBC) [Entitic vol] 93.6 fL 81.0 - 99.0 fL [facility] MONOCYTES ABSOLUTE AUTO 0.4 N [facility] Monocytes/100 WBC (Bld) 6 % 1.7 - 12.0 % [facility] NEUTROPHILS ABSOLUTE AUTO 3.7 [facility] Neutrophils/100 WBC (Bld) 57.5 % 43.0 - 75.0 % [facility] Platelet mean volume (Bld) [Entitic vol] 10.7 fL 9.5 - 13.5 fL [facility] TBH EO # 0.1 [facility]H PLT 276 [facility] RBC 4.54 [facility] TB WBC 6.3 [facility] - Microbiology an d Antimicrobial susceptibilityon 09-25-2024 SARS-CoV-2 (COVID-19) RNA JOHNNIE+probe Ql (Unsp spec) Negative [facility] No Panel Informationon 09-25 Interpretation and review of laboratory results Normal [facility] URINE CULTURE, ROUTINEon Bacteria identified Cx Nom (U) Urine Culture, Routine [facility] Bacteria identified Cx Nom (U) Mixed urogenital kennedi [facility] Bacteria identified Cx Nom (U) Less than 10,000 colonies/mL [facility] Bacteria identified Cx Nom (U) Performed at: [facility] Bacteria identified Cx Nom (U) [address] [place], [place] [phone] [facility] Bacteria identified Cx Nom (U) [employer] Supervisor: Fran Guthrie PhD, Phone: [phone] [facility] Cult,Urineon 09-14-2024 Cult,Urine Specimen Description .CLEAN CATCH URINE Special Requests Site: Urine Culture NO SIGNIFICANT GROWTH Report Status FINAL 09/14/2024 [facility] Comment on above: Performed By: #### U RC #### [facility] [address] [place], [place] [id number] [employer] Supervisor: Taiwo Wray MD [facility] [address] [place] [address] [employer] Supervisor: Wiley Wheatley MD [facility] URINALYSIS, WITH MICROS COPICon 09-13-2024 Interpretation and review of laboratory results Abnormal [facility] Abnormal NONE [facility] BILIRUBIN, SEMIQT,UR Negative NEG [facility] BLOOD, URINE Negative NEG [facility] CLARITY, URINE Clear CLEAR [facility] COLOR Yellow YEL [facility] EPITHELIAL CELLS 2 TO 5 [facility] GLUCOSE,SEMI-QNT,UR Negative NEG mg/dL [facility] KETONES, URINE Negative NEG mg/dL [facility] LEUKOCYTE ESTERASE Negative NEG N [facility] NITRITE,UR Negative NEG [facility] PH,UR 6 5.0 - 9.0 [facility] PROTEIN, SEMI-QNT,UR Negative NEG mg/dL [facility] SPEC. GRAVITY,UR <1.005 Low 1.010 - 1.020 [facility] URINE RBC'S 0 TO 2 [facility] URINE WBC'S 0 TO 2 [facility] UROBILINOGEN,UR Normal 0.0 - 1 .0 EU/dL [facility] Original Ordering Provider: ELIN BALLARD [facility] Urinalysis w/ Microon 2024 Bacteria TRACE Abnormal NONE [facility] Comment on above: Performed By: #### U AMIC #### [facility] [address] [place] [address] [employer] Supervisor: Wiley Wheatley MD Bilirubin, SemiQt,Ur Negative Normal NEG [facility] Comment on above: Performed By: #### U AMIC #### [facility] [address] [place] [address] [employer] Supervisor: Wiley Wheatley MD Blood, Urine Negative Normal NEG [facility] Comment on above: Performed By: #### U AMIC #### [facility] [address] [place], [place] [id number] [employer] Supervisor: Wiley Wheatley MD Clarity (U) Clear Normal CLEAR [facility] Comment on above: Performed By: #### U AMIC #### [facility] [address] [place], [place] [phone] [employer] Supervisor: Wiley Wheatley MD Color (U) Yellow Normal YEL [facility] Comment on above: Performed By: #### U AMIC #### [facility] [address] [place], [place] [address] [employer] Supervisor: Wiley Wheatley MD Epithelial cells LM Ql (Urine sed) 2 TO 5 Normal 0-25 [facility] Comment on above: Performed By: #### U AMIC #### [facility] [address] [place] [address] Dr[address] [place], [place] 1737[address] [employer] Supervisor: Wiley Wheatley MD Glucose Ql (U) Negative Normal NEG [facility] Comment on above: Performed By: #### U AMIC #### [facility] [address] [place] [address] [place], [place] [phone] [employer] Supervisor: Wiley Wheatley MD Ketones Ql (U) Negative Normal NEG [facility] Comment on above: Performed By: #### U AMIC #### [facility] [address] [place] [address] [place] [place], [place] 7300[address] [employer] Supervisor: Wiley Wheatley MD Leukocyte esterase Test strip Ql (U) Negative Normal NEG [facility] Comment on above: Performed By: #### U AMIC #### [facility] [address] [place] [address] [place] [place], [place] 0614483 [employer] Supervisor: Wiley Wheatley MD Nitrite,Ur Negative Normal NEG [facility] Comment on above: Performed By: #### U AMIC #### [facility] [address] [place] [address] [place]. [place], [place] [phone] [employer] Supervisor: Wiley Wheatley MD PH,Ur 6.0 Normal 5.0-9.0 [facility] Comment on above: Performed By: #### U AMIC #### [facility] [address] [place] [address] [place] [place], [place] [address] [employer] Supervisor: Wiley Wheatley MD Protein Ql (U) Negative Normal NEG [facility] Comment on above: Performed By: #### U AMIC #### [facility] [address] [place] [address] [place], [place] [address] [employer] Supervisor: Wiley Wheatley MD Spec. [place],Ur <1.005 Low 1.010-1.[address] [facility] Comment on above: Performed By: #### U AMIC #### [facility] [address] [place] [address] Dr. [place], [place] [address] [employer] Supervisor: Wiley Wheatley MD Urine RBC's 0 TO 2 Normal 0-2 [facility] Comment on above: Performed By: #### U AMIC #### [facility] [address] [place] [address] Dr. [place], [place] 5825683 [employer] Supervisor: Wiley Wheatley MD Urine WBC's 0 TO 2 Normal 0-5 [facility] Comment on above: Performed By: #### U AMIC #### [facility] [address] [place] [address] [place]. [place], [place] [address] [employer] Supervisor: Wiley Wheatley MD Urobilinogen,Ur Normal Normal 0.0-1.0 [facility] Comment on above: Performed By: #### U AMIC #### [facility] [address] [place] [address] [place] [place], [place] 0614683 [employer] Supervisor: Wiley Wheatley MD Urinalysis with Microscopico n 09-13-2024 Bacteria LM Ql (Urine sed) TRACE Abnormal None [facility] Bilirubin Ql (U) Negative NEGATIVE [facility] Clarity (U) Clear Clear [facility] Color (U) Yellow Yellow [facility] Epithelial cells LM.HPF (Urine sed) [#/Area] 2 TO 5 [facility] Glucose Test strip (U) [Mass/Vol] Negative NEGATIVE mg/dL [facility] Hemoglobin Auto test strip Ql (U) Negative NEGATIVE [facility] Interpretation and review of laboratory results Abnormal [facility] Ketones (U) [Mass/Vol] Negative NEGAT KAT mg/dL [facility] Leukocyte esterase Test strip Ql (U) Negative NEGATIVE [facility] Nitrite Ql (U) Negative NEGATIVE [facility] pH (U) 6.0 [pH] 5.0 - 9.0 [facility] Protein (U) [Mass/Vol] Negative NEGAT KAT mg/dL [facility] RBC LM.HPF (Urine sed) [#/Area] 0 TO 2 [facility] Specific gravity (U) [Rel density] Low 1.010 - 1.020 [facility] Urobilinogen Qn (U) Normal 0.0 - 1. 0 EU/dL [facility] WBC LM.HPF (Urine sed) [#/Area] 0 TO 2 [facility] XR KUBon 05-08-2024 XR KUB [facility] [place] [address] XRay Report Signed Patient: Isabelle Hewitt I MR#: [id number] : 1975 Acct:[id number] Age/Sex: 49 / F ADM Date: 05/08/24 Loc: XD Room: Type: [facility] Attending Dr: Majo Lyman APRN Copies [...] Candace Marte M.D.05/08/2024 5:27 PM Dictation Location: [place] [address] Transcribed By: [facility] 05/08/241726 Dictated By: Candace Marte MD 05/08/241725 Signed By: 05/08/241726 Normal [facility] SARS-COV-2 AG*on 05-07-2024 SARS-CoV-2 (COVID-19) RNA JOHNNIE+probe Ql (Unsp spec) Negative NEGATIVE [facility] Comment on above: This test has not [...] is terminated or authorization is revoked sooner. [facility] THYROXINE (T4) FREEon Free T4 [Mass/Vol] 0.66 ng/dL Low 0.76 - 1. 46 ng/dL [facility] Interpretation and review of laboratory results Abnormal [facility] Cytology Cervical or vaginal smear or scraping studyon 11-22-2023 [facility] Laboratory - Microbiology an d Antimicrobial susceptibilityOrdered By: Louise Johnson on 10-14-2023 SARS-CoV-2 (COVID-19) RNA JOHNNIE+probe Ql (Unsp spec) [facility] CT UROGRAMon 10-01-2023 CT UROGRAM EXAMINATION: [...] Oliver Walker MD 10/01/23 Final result Normal [facility] Creatinine w/GFRon 4 Creatinine [Mass/Vol] 0.7 mg/dL Normal 0.5-0.9 [facility] Comment on above: Performed By: #### C REG #### [facility] [address] [place] [address] [employer] Supervisor: Wiley Wheatley MD GFR/1.73 sq M.predicted among non-blacks MDRD (S/P/Bld) [Vol rate/Area] mL/min/{1.73_m2} Normal >60 [facility] Comment on above: Result Comment: These [...] secretion. Performed By: #### C REG #### [facility] [address] [place] [address] [employer] Hand[employer] Supervisor: Wiley Wheatley MD HCG ( test) IAkimberly oscar Ql (U)Ordered By: David Martinez on 08-08-2023 HCG ( test) Ql (U) Negative [facility] Amylase [Enzymatic activity/ volume] in Serum or PlasmaOrdered By: Majo Lyman on 06-30-2023 Amylase [Catalytic activity/Vol] 42 U/L 29-103 [facility] C reactive protein [Mass/vol ume] in Serum or PlasmaOrdered By: Majo Lyman on 06-30-2023 CRP [Mass/Vol] < 0.5 mg/dL 0.0-0.5 [facility] Calprotectin [Mass/mass] in StoolOrdered By: Majo Lyman on 06-30-2023 Calprotectin (Stl) [Mass/Mass] 36 ug/g 0-120 [facility] Comment on above: Concentration Interp retation Follow-Up< 5 - 50 ug/g Normal None>50 -120 ug/g Borderline Re-evaluate in 4-6 weeks >120 ug/g Abnormal Repeat as clinically indicatedPerformed at: - [address] [id number] Director: Andrew Cameron MD, Phone: [phone] Elastase.pancreatic [Mass/ma ss] in StoolOrdered By: Majo Lyman on 06-30-2023 Elastase.pancreatic (Stl) [Mass/Mass] 327 >200 [facility] Comment on above: Result Units: ug Nighat st./g Severe Pancreatic Insufficiency: <100 Moderate Pancreatic Insufficiency: 100 - 200 Normal: >200Performed at: - [facility] [id number] Director: Andrew Cameron MD, Phone: [phone] Erythrocyte sedimentation ra te by Photometric methodOrdered By: Majo Lyman on 06-30-2023 ESR Photometric method (Bld) [Velocity] 51 mm/hr 0-19 [facility] HIV 1 and HIV-2 antibody ass ay with HIV-1 p24 antigen detectionOrdered By: Majo Lyman on 06-30-2023 HIV 1+2 Ab+HIV1 p24 Ag IA Ql Non-Reactive Non Reactive [facility] Comment on above: HIV NegativeHIV-1/HI V-2 antibodies and HIV-1 p24 antigen were NOTdetected. There is no laboratory evidence of HIV infection.Performed at: [employer] - [facility] [address] [id number] Director: Fran Guthrie PhD, Phone: [phone] IgA [Mass/volume] in Serum o r PlasmaOrdered By: Majo Lyman on 06-30-2023 IgA [Mass/Vol] 505 mg/dL 87-352 [facility] Comment on above: Performed at: [employer] [facility] [address] [id number] Director: Fran Guthrie PhD, Phone: [phone] Lipase [Enzymatic activity/v olume] in Serum or PlasmaOrdered By: Majo Lyman on 06-30-2023 Lipase [Catalytic activity/Vol] 45.0 U/L 11.0-82.0 [facility] No Panel InformationOrdered By: Majo Lyman on 06-30-2023 Endomysial IgA Antibody Negative Negative [facility] Serum gliadin peptide IgA an tibody assay (units/volume)Ordered By: Majo Lyman on 06-30-2023 Gliadin peptide IgA Qn (S) 7 units 0-19 [facility] Comment on above: Negative 0 - 19 Weak Positive 20 - 30 Moderate to Strong Positive >30 Serum gliadin peptide IgG an tibody assay (units/volume)Ordered By: Majo Lyman on 06-30-2023 Gliadin peptide IgG Qn (S) 2 units 0-19 [facility] Comment on above: Negative 0 - 19 Weak Positive 20 - 30 Moderate to Strong Positive >30 Serum tissue transglutaminas e (tTG) IgA antibody assay (units/volume)Ordered By: Majo Lyman on 06-30-2023 tTG IgA Qn (S) <2 U/mL 0-3 [facility] Comment on above: Negative 0 - [...] Qn (S) <2 U/mL 0-5 [facility] Comment on above: Negative 0 - 5 Weak Positive 6 - 9 Positive >9 Thyrotropin [Units/volume] i n Serum or PlasmaOrdered By: Majo Lyman on 06-30-2023 TSH Qn 0.57 m[IU]/L 0.45-5.33 [facility] COVID + FLU Quick Testingon 06-07-2023 SARS-CoV-2 (COVID-19) RNA JOHNNIE+probe Ql (Unsp spec) Negative [facility] [employer] Other COVID + FLU Quick Testing Negative [facility] [employer] Other Quick Strepon 06-07-2023 S. pyogenes Org specific cx Ql (Throat) Negative [facility] [employer] Other Quick Strep [facility] [employer] Other Telephone Encounteron 2022 [employer] Aut[employer] Interface Message Text Situation: Patient called in Background: She says that she wanted to let provider know taht she would be following a different dr to his new practice for follow up treatment Assessment: NA Recommendation: Please advise and george patient if needed at Phone numbers Thank You Normal [employer] Authentication Interface Message Text Called and left voicemail for patient. Post-op Home Sleep Test reviewed from [facility], and there is considerable improvement. Pre-op AHI is 102, now down to 31. Pre-op O2 Carlene of 71%, now up to 82%. However, still with considerable desat time. There are notes from Dr. Moreno evaluating for INSPIRE I presume, but nothing since November. Asked patient for call back or Wine[employer]oph[employer] message with if she has been able to continue with Dr. Moreno at his new office, or if [facility] Normal [employer] MG MAMM SCREEN 3D LEEANNE CADon 01-18-2023 MG MAMM SCREEN 3D LEEANNE CAD Patient: ISABELLE HEWITT I. 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 on 01/19/2023 at 13:37 Normal [facility] Urinalysis with Microscopico n 12-13-2022 Bacteria, UA TRACE Abnormal None [email or web address] Bilirubin Urine Negative NEGATIVE [facility] Color, UA Yellow Yellow [facility] Epithelial Cells UA 0 TO 2 [facility] Glucose Auto test strip (U) [Mass/Vol] Negative NEGATIVE [facility] Interpretation and review of laboratory results Abnormal [facility] Ketones (U) [Mass/Vol] Negative NEGATIVE [facility] Leukocyte esterase Auto test strip Ql (U) Negative NEGATIVE [facility] Nitrite Auto test strip Ql (U) Negative NEGATIVE [facility] Protein (U) [Mass/Vol] 6.5 mg/dL 5.0 - 9.0 [facility] Protein (U) [Mass/Vol] Negative NEGATIVE [facility] RBC clumps Auto (Urine sed) [#/Area] None [facility] Specific [place], UA Low 1.010 - 1.[address] [facility] Turbidity UA Clear Clear [facility] Urine Hgb Negative NEGATIVE [facility] Urobilinogen, Urine Normal Normal [facility] WBC, UA None [facility] Covid-19 PCR (CVDTB)on SARS-CoV-2 (COVID-19) RNA JOHNNIE+probe Ql (Unsp spec) Not detected Normal NOT DETECTED [facility] Comment on above: Result Comment: This test is not yet approved or cleared by the [place] FDA. When there are no FDA-approved or cleared tests available, and other criteria are met, FDA can make tests available under an emergency access mechanism called an Emergency Use Authorization (EUA). The EUA for this test is supported by the Executive Candidate Developer of Health and Human Service's (HHS's) declaration [...] SARS-CoV-2. Performed By: #### C VDTBH #### [facility] [address] [place] [address] Dr. Stephanie Gibbs INFLUENZA A AND B AGon 11-26 INFLUANEGH SEE BELOW Normal [facility] Comment on above: Result Comment: Nega tive for Flu A protein angiten. Infection due to Flu A cannot be ruled out. Flu A angiten in the sample may be below the detection limit of the test. Performed By: #### I NFLUAB #### [facility] [address] [place] [address] Dr. Stephanie Gibbs INFLUBNEGH SEE BELOW Normal [facility] Comment on above: Result Comment: Nega tive for Flu B protein antigen. Infection due to Flu B cannot be ruled out. Flu B antigen in the sample may be below the detection limit of the test. Performed By: #### I NFLUAB #### [facility] [address] [place] [address] Dr. Stephanie Gibbs INFLUENZA A AG Negative Normal NEGATIVE SEE COMMENT [facility] Comment on above: Performed By: #### I NFLUAB #### [facility] [address] [place] [address] Dr. Stephanie Gibbs INFLUENZA B AG Negative Normal NEGATIVE SEE COMMENT [facility] Comment on above: Performed By: #### I NFLUAB #### [facility] [address] [place] [address] Dr. Stephanie Gibbs SYMPTOMATIC COVID-19 ANTIGEN on 11-26-2022 EUA Statement SEE BELOW Normal [facility] Comment on above: Result Comment: [...] sooner. Performed By: #### C BC #### [facility] [address] [place] [address] Dr. Stephanie Gibbs SARS-CoV-2 (COVID-19) RNA JOHNNIE+probe Ql (Unsp spec) Negative Normal NEGATIVE [facility] Comment on above: Performed By: #### C BC #### [facility] [address] [place] [address] Dr. Stephanie Gibbs Telephone Encounteron 2022 [employer] Authentication Interface Message Text Requesting sleep study results and next steps. Please advise. Normal [facility] CBC AUTO DIFFon 11-12-2022 BASO # 0.1 103/ul Normal 0.0-0.1 [facility] Comment on above: Performed By: #### C BC #### [facility] [address] [place] [address] Dr. Stephanie Gibbs Basophils/100 WBC (Bld) 0.9 % Normal 0.2-2.0 [facility] Comment on above: Performed By: #### C BC #### [facility] [address] [place] [address] Dr. Stephanie Gibbs EO # 0.3 103/ul Normal 0.0-0.7 [facility] Comment on above: Performed By: #### C BC #### [facility] [address] [place] [address] Dr. Stephanie Gibbs Eosinophils/100 WBC (Bld) 4.7 % Normal 0.9-7.0 [facility] Comment on above: Performed By: #### C BC #### [facility] [address] [place] [address] Dr. Stephanie Gibbs Erythrocyte distribution width (RBC) [Ratio] 13.4 % Normal 11.0-15.0 [facility] Comment on above: Performed By: #### C BC #### [facility] [address] [place] [address] Dr. Stephanie Gibbs Hematocrit (Bld) [Volume fraction] 43.0 % Normal 36.0-48.0 [facility] Comment on above: Performed By: #### C BC #### [facility] [address] [place] [address] Dr. Stephanie Gibbs Hemoglobin (Bld) [Mass/Vol] 13.9 g/dL Normal 12.0-16.0 [facility] Comment on above: Performed By: #### C BC #### [facility] [address] [place] [address] Dr. Stephanie Gibbs IG # 0.01 10e3/ul Normal 0.00-0.03 [facility] Comment on above: Performed By: #### C BC #### [facility] [address] [place] [address] Dr. Stephanie Gibbs IG % 0.2 % Normal 0.0-0.5 [facility] Comment on above: Performed By: #### C BC #### [facility] [address] [place] [address] Dr. Stephanie Gibbs LYMPH # 2.3 103/ul Normal 1.2-3.8 [facility] Comment on above: Performed By: #### C BC #### [facility] [address] [place] [address] Dr. Stephanie Gibbs Lymphocytes/100 WBC (Bld) 36.6 % Normal 20.5-60.0 [facility] Comment on above: Performed By: #### C BC #### [facility] [address] [place] [address] Dr. Stephanie Gibbs MANUAL DIFF REQ NO Normal [facility] Comment on above: Performed By: #### C BC #### [facility] [address] [place] [address] Dr. Stephanie Gibbs MCH (RBC) [Entitic mass] 29.7 pg Normal 26.7-34.0 [facility] Comment on above: Performed By: #### C BC #### [facility] [address] [place] [address] Dr. Stephanie Gibbs MCHC (RBC) [Mass/Vol] 32.3 g/dL Normal 29.9-35.2 [facility] Comment on above: Performed By: #### C BC #### [facility] [address] [address] [address] Stephanie Gibbs MCV (RBC) [Entitic vol] 91.9 fL Normal 81.0-99.0 [facility] Comment on above: Performed By: #### C BC #### [facility] [address] [place] [address] Dr. Stephanie Gibbs MONO # 0.5 103/ul Normal 0.3-0.8 [facility] Comment on above: Performed By: #### C BC #### [facility] [address] [place] [address] Dr. Stephanie Gibbs Monocytes/100 WBC (Bld) 8.3 % Normal 1.7-12.0 [facility] Comment on above: Performed By: #### C BC #### [facility] [address] [place] [address] Dr. Stephanie Gibbs NEUT # 3.2 103/ul Normal 1.4-6.5 [facility] Comment on above: Performed By: #### C BC #### [facility] [address] [place] [address] Dr. Stephanie Gibbs Neutrophils/100 WBC (Bld) 49.3 % Normal 43.0-75.0 [facility] Comment on above: Performed By: #### C BC #### [facility] [address] [place] [address] Dr. Stephanie Gibbs Platelet mean volume (Bld) [Entitic vol] 9.6 fL Normal 9.5-13.5 [facility] Comment on above: Performed By: #### C BC #### [facility] [address] [place] [address] Dr. Stephanie Gibbs PLT 250 103/ul Normal 150-450 [facility] Comment on above: Performed By: #### C BC #### [facility] [address] [place] [address] Dr. Stephanie Gibbs RBC 4.68 106/ul Normal 4.20-5.40 [facility] Comment on above: Performed By: #### C BC #### [facility] [address] [address] [address] Stephanie Gibbs WBC 6.4 103/ul Normal 4.0-11.0 [facility] Comment on above: Performed By: #### C BC #### [facility] [address] [place] [address] Dr. Stephanie Gibbs POINT OF CARE GLUCOSEon 10-21 Glucose [Mass/Vol] 97 mg/dL Normal 74-106 [facility] Comment on above: Performed By: #### P OCGLUC #### [facility] [address] [address] [address] Stephanie Gibbs PREG QUANT HCGon 11-12-2022 HCG QUANT 3 mIU/mL Normal [facility] Comment on above: Performed By: #### C BC #### [facility] [address] [place] [address] Dr. Stephanie Gibbs HCG RANGE SEE BELOW Normal [facility] Comment on above: Result Comment: 5-50 0.2-1 WEEK 50-500 1-2 WEEKS 100-5,000 2-3 WEEKS 500-10,000 3-4 WEEKS 1,000-50,000 4-5 WEEKS 10,000-100,000 5-6 WEEKS 15,000-200,000 6-8 WEEKS 10,000-100,000 2-3 MONTHS Performed By: #### C BC #### [facility] [address] [place] [address] Dr. Stephanie Gibbs Telephone Encounteron 2022 [employer] Authentication Interface Message Text Opened in error Normal [facility] Telephone Encounteron 2022 Sh[employer] Maker Authentication Interface Message Text Called patient and left voicemail. Advised that order for post-op PSG was faxed to [facility]. Left number to call to schedule study at her convenience ([phone]) Normal [facility] Progress Noteson 10-19-2022 Sh[employer] Authentication Interface Message Text CC: sleep disordered breathing Referred by: Dr Mcmanus HPI: Seeing me today to continue further care for her obstructive sleep apnea in the setting of CPAP intolerance. At initial presentation her home sleep study indicated an AHI of 63 with an O2 carlene of 64% Multilevel upper airway obstruction was noted on her sleep endoscopy including oropharynx, base of tongue [...] residual base of tongue obstruction. Normal [facility] Telephone Encounteron 2022 [employer] Maker Authentication Interface Message Text PT calling back to check status of her [facility] paperwork from [employer]. I verified the correct fax # PT was using ( [phone]) I called over to PS dept , spoke to Seferino and he stated to have the PT to send it to the e-mail address [email or web address] PT will put ATTN: to Dr. Rodrigues. PT asks to have the paperwork filled out [facility] as it it due soon ( PT didn't state a sate just that it was due) Please call PT once received Normal [facility] Telephone Encounteron 2022 [employer] Authentication Interface Message Text Patient calling in to see if her FMLA papers were received. Paperwork not scanned into the chart at this time. Please call the patient with confirmation of receipt of the FMLA papers at [phone]. Thank you! Normal [facility] Progress Noteson 09-08-2022 [employer] Authentication Interface Message Text Teaching Physician Note: [...] physician. Rikki Rodrigues DMD, MD Normal [facility] Telephone Encounteron 2022 [employer] Authentication Interface Message Text PT calling in stating she will be sending new FMLA forms via fax tomorrow due to the library being closed today. PT states Dr. Rodrigues has to fill that paperwork out just like he did for [employer]. PT states the company she works for switched [employer]. Please call PT if any questions. PT was just seen on 08/30/22 Normal [facility] FREE T4on 09-02-2022 Free T4 [Mass/Vol] 1.01 ng/dL Normal 0.76-1.46 [facility] Comment on above: Performed By: #### F T4 #### [facility] [address] [address] [address] Stephanie Gibbs TSHon 09-02-2022 TSH 0.745 uIU/mL Normal 0.358-3.740 [facility] Comment on above: Performed By: #### T SH #### [facility] [address] [place], [place] [address] Dr. Stephanie Gibbs Telephone Encounteron 2022 [employer] Maker Authentication Interface Message Text PT calling in stating she had new FMLA forms to be faxed to Dr. Rodrigues. PT stated her job was going through [email or web address] and now is going through [employer]. saw PT for surgery on 07/14. PT had a televisit follow up on 07/23, but has cancelled every other follow up on 08/02 , 08/13 AND 08/30. PT stated Dr. Rodrigues had her off work since 07/14/22-08/30/2022. Please see media associate- dates are different Please reach out to PT to discuss and when forms are ready to be filled out [phone] Normal [facility] Patient Instructionson 08-30 [employer] Authentication Interface Message Text With clean hands massage gums under your upper lip daily at night time No food restrictions Follow up with your dentist We will contact your Sleep Center in [place] to have a Sleep Study completed in 1.5 months. Normal [facility] Progress Noteson 08-30-2022 Shank Maker Authentication Interface Message Text [facility] [...] -Complete sleep study with Dr. Mcmanus in [place], [place] in 1.5 months -Follow up with patient's general dentist, Sinan Jones DDS for denture adjustment Follow-Up: After new sleep study Follow up sooner with new or worsening symptoms. Sinan Jones DDS [facility] [address] [place] [address] Wiley Mcmanus MD [facility] [address] [place] [id number] Seferino Vaz DMD [facility] Resident Normal [facility] Urinalysis with Microscopico n 08-12-2022 Bacteria, UA 2+ Abnormal None [facility] Bilirubin Urine Negative NEGATIVE [facility] [employer] [facility] Color, UA Yellow Yellow [facility] Epithelial Cells UA 0 TO 2 [facility] Glucose, Ur Negative NEGATIVE [facility] Interpretation and review of laboratory results Abnormal [facility] Ketones Ql (U) Negative NEGATIVE [facility] Leukocyte esterase Test strip Ql (U) SMALL Abnormal NEGATIVE [facility] Nitrite, Urine Negative NEGATIVE [facility] pH, UA 6.5 5.0 - 9.0 [facility] Protein, UA 1+ Abnormal NEGATIVE [facility] RBC, UA 0 TO [address] [facility] Specific [place], UA High 1.010 - 1.[address] [facility] Turbidity UA Cloudy Abnormal Clear [facility] Urine Hgb 1+ Abnormal NEGATIVE [facility] Urobilinogen, Urine Normal Normal [facility] WBC, UA 50 TO 100 [facility] Telephone Encounteron 2021 Sh[employer] Authentication Interface Message Text Called the patient twice this week to remind her regarding the follow up this Tuesday (08/13/22) and to offer to follow up sooner if she prefers. Patient did not answer. Message was left. Also attempted to call the alternative work number listed. Was unable to reach the patient at this number. Jerel Villegas DDS, [facility]- [phone] Normal [facility] Telephone Encounteron 2021 [employer] Authentication Interface Message Text Called pt. No answer. LVM with callback instructions. Per Dr. Rodrigues, we will not write any work excuse notes or prescribe any pain meds until pt is seen in person for follow up. Oliver Rogers, DMD Normal [facility] Sh[employer] Authentication Interface Message Text Pt called because [...] options if that is the case. Email: [email or web address] Contact pt @[phone] for questions/concerns Normal [facility] Telephone Encounteron 2021 [employer] Authentication Interface Message Text Patient called in [...] Please call the patient to advise at [phone]. Thank you! Normal [facility] Telephone Encounteron 2021 [employer] Maker Authentication Interface Message Text Spoke with patient and instructed her to come in earlier Tuesday afternoon, preferably between 1:00 and 2:00 pm. Also reminded her to bring dentures with her as we would like to assess her occlusion with dentures in place. Patient voiced understanding and agreed to arrive early for her appointment on Tuesday. Mikal Rodgers DMD home demonstration agent, PGY-3 Team Pager: [phone] Normal [facility] Telephone Encounteron 2021 [employer] Authentication Interface Message Text Patient called stating she needs a back to work slip. Requested a call back [phone]. Thank you! Normal [facility] Progress Noteson 07-23-2022 Sh[employer] Maker Authentication Interface Message Text [facility] [...] new or worsening symptoms. Mikal Rodgers DMD home demonstration agent, PGY-3 Team Pager: [phone] Normal [facility] Progress Noteson 07-19-2022 [employer] Authentication Interface Message Text Initial pre-surgical workup photos: Normal [facility] BASIC METABOLIC PANELon 11-2 Anion gap [Moles/Vol] 13 mmol/L Normal 10-20 [facility] Comment on above: Performed By: #### MILO Mattson CH8 #### [facility] [address] [place] [address], Calcium [Mass/Vol] 7.9 mg/dL Low 8.4-10.4 [facility] Comment on above: Performed By: #### MILO Mattson CH8 #### [facility] [address] [place] [address], Chloride [Moles/Vol] 105 mmol/L Normal 97-111 [facility] Comment on above: Performed By: ###MILO Sierra CH8 #### [facility] [address] [place] [address], CO2 [Moles/Vol] 30 mmol/L Normal 21-30 [facility] Comment on above: Performed By: ###MILO Sierra CH8 #### [facility] [address] [place] [address], Creatinine [Mass/Vol] 0.84 mg/dL Normal 0.50-1.10 [facility] Comment on above: Performed By: ###MILO Sierra CH8 #### [facility] [address] [place] [address], ESTIMATED GFR (CKD-EPI) 86 mL/min/1.73sqm Normal >=60 [facility] Comment on above: Result Comment: 2020 [...] Inclusion of Race in Diagnosing Kidney Disease. Dutch Journal of Kidney Diseases 202;79(2):268-88.e1. 2. N Engl J Med 1 Vol. 385 Issue 19 Pages [id number] Performed By: #### MILO Mattson CH8 #### [facility] [address], [place], Glucose [Mass/Vol] 85 mg/dL Normal 68-110 [facility] Comment on above: Performed By: #### MILO Mattson CH8 #### [facility] [address], [place], Potassium [Moles/Vol] 3.7 mmol/L Normal 3.3-5.3 [facility] Comment on above: Performed By: #### MILO Mattson CH8 #### [facility] [address], [place], Sodium [Moles/Vol] 144 mmol/L Normal 135-148 [facility] Comment on above: Performed By: #### MILO Mattson CH8 #### [facility] [address], [place], Urea nitrogen [Mass/Vol] 10 mg/dL Normal 8-22 [facility] Comment on above: Performed By: #### MILO Mattson CH8 #### [facility] [address], [place], Basic metabolic 2000 panelon 07-17-2022 Anion gap [Moles/Vol] 13 mmol/L 10 - 20 [facility] Calcium [Mass/Vol] 7.9 mg/dL Low 8.4 [...] Inclusion of Race in Diagnosing Kidney Disease. [place] Journal of Kidney Diseases 202;79(2):268-88.e1. 2. N Engl J Med 2020 Vol. 385 Issue 19 Pages [phone] Glucose [Mass/Vol] 85 mg/dL 68 - 110 [...] (RBC) [Ratio] 13.7 % Normal 11.5-14.5 [facility] Comment on above: Performed By: #### M MILO Alan CH8 #### [facility] [address] [place] [address], Hematocrit (Bld) [Volume fraction] 32.8 % Low 36.0-46.0 [facility] Comment on above: Performed By: #### MILO Mattson CH8 #### [facility] [address] [place] [address], Hemoglobin (Bld) [Mass/Vol] 10.8 g/dL Low 12.0-15.0 [facility] Comment on above: Performed By: #### MILO Mattson CH8 #### [facility] [address] [place] [address], MCH (RBC) [Entitic mass] 32.5 pg Normal 26.0-34.0 [facility] Comment on above: Performed By: #### MILO Mattson CH8 #### [facility] [address] [place] [address], MCHC (RBC) [Mass/Vol] 32.9 g/dL Normal 32.0-35.9 [facility] Comment on above: Performed By: #### MILO Mattson CH8 #### [facility] [address] [place] [address], MCV (RBC) [Entitic vol] 99 fL Normal 80-100 T [facility] Comment on above: Performed By: #### MILO Mattson CH8 #### [facility] [address], [place], Platelet mean volume (Bld) [Entitic vol] 8.0 fL Normal 7.5-11.2 [facility] Comment on above: Performed By: #### MILO Mattson CH8 #### [facility] [address], [place], Platelets (Bld) [#/Vol] 214 10*3/uL Normal 150-400 [facility] Comment on above: Performed By: #### MILO Mattson CH8 #### [facility] [address] [place] [address], RBC (Bld) [#/Vol] 3.33 10*6/uL Low 4.00-5.20 [facility] Comment on above: Performed By: #### MILO Mattson CH8 #### [facility] [address], [place], WBC (Bld) [#/Vol] 8.7 10*3/uL Normal 4.5-11.5 [facility] Comment on above: Performed By: #### MILO Mattson CH8 #### [facility] [address], [place], Care Plan Noteon 07-17-2022 [employer] Maker Authentication Interface Message Text Problem: Discharge Planning: [...] discharged home with family member. Normal [facility] Sh[employer] Maker Authentication Interface Message Text Problem: Routine Care: [...] will be met Outcome: Progressing Normal [facility] GLUCOSE, FINGERSTICK-IN OFFI CEon 07-17-2022 Glucose [Mass/Vol] 81 mg/dL Normal 68-110 [facility] Comment on above: Performed By: #### 8 2948 ####[facility] [id number] [place], [address] Glucose [Mass/Vol] 81 mg/dL 68 - 110 mg/dL [facility] Interpretation and review of laboratory results [facility] Glucose [Mass/Vol] 93 mg/dL Normal 68-110 [facility] Comment on above: Performed By: #### MILO Mattson CH8 #### [facility] [address], [place], Glucose [Mass/Vol] 93 mg/dL 68 - 110 mg/dL [facility] Interpretation and review of laboratory results Normal [facility] MAGNESIUMon 07-17-2022 Magnesium [Mass/Vol] 1.8 mg/dL Normal 1.6-2.8 [facility] Comment on above: Performed By: #### MILO Mattson CH8 #### [facility] [address], [place], Interpretation and review of laboratory results Normal [facility] Magnesium [Mass/Vol] 1.8 mg/dL 1.6 - 2 .8 mg/dL [facility] No Panel Informationon 07-17 Interpretation and review of laboratory results Abnormal [facility] PHOSPHORUSon 07-17-2022 Phosphate [Mass/Vol] 2.4 mg/dL Low 2.5-4.8 [facility] Comment on above: Performed By: #### MILO Mattson CH8 #### [facility] [address], [place], Phosphate [Mass/Vol] 2.4 mg/dL Low 2.5 - 4 .8 mg/dL [facility] Progress Noteson 07-17-2022 Shank Maker Authentication Interface Message Text Patient refused: Ditropan, and Hs Fingerstick. Normal [facility] BASIC METABOLIC PANELon 06-23 Anion gap [Moles/Vol] 14 mmol/L Normal 10-20 [facility] Comment on above: Performed By: #### M G, PHOS, CH8 #### [facility] [address], [place], Calcium [Mass/Vol] 8.0 mg/dL Low 8.4-10.4 [facility] Comment on above: Performed By: #### MILO Mattson CH8 #### [facility] [address], [place], Chloride [Moles/Vol] 103 mmol/L Normal 97-111 [facility] Comment on above: Performed By: #### MILO Mattson CH8 #### [facility] [address], [place], CO2 [Moles/Vol] 31 mmol/L High 21-30 [facility] Comment on above: Performed By: #### MILO Mattson CH8 #### [facility] [address], [place], Creatinine [Mass/Vol] 0.79 mg/dL Normal 0.50-1.10 [facility] Comment on above: Performed By: #### MILO Mattson CH8 #### [facility] [address], [place], ESTIMATED GFR (CKD-EPI) 93 mL/min/1.73sqm Normal >=60 [facility] Comment on above: Result Comment: 2020 [...] Inclusion of Race in Diagnosing Kidney Disease. Dutch Journal of Kidney Diseases 2021;79(2):268-88.e1. 2. N Engl J Med 1 Vol. 385 Issue 19 Pages 3452-5741 Performed By: #### MILO Mattson CH8 #### [facility] [address], [place], Glucose [Mass/Vol] 96 mg/dL Normal 68-110 [facility] Comment on above: Performed By: #### MILO Mattson CH8 #### [facility] [address], [place], Potassium [Moles/Vol] 4.0 mmol/L Normal 3.3-5.3 [facility] Comment on above: Performed By: #### MILO Mattson, CH8 #### [facility] [address], [place], Sodium [Moles/Vol] 144 mmol/L Normal 135-148 [facility] Comment on above: Performed By: #### MILO Mattson CH8 #### [facility] [address], [place], Urea nitrogen [Mass/Vol] 16 mg/dL Normal 8-22 [facility] Comment on above: Performed By: #### MILO Mattson CH8 #### [facility] [address], [place], Basic metabolic 2000 panelon 07-16-2022 Anion gap [Moles/Vol] 14 mmol/L 10 - 20 [facility] Calcium [Mass/Vol] 8.0 mg/dL Low 8.4 - 10. 4 mg/dL [facility] Chloride [Moles/Vol] 103 mmol/L 97 - 11 1 mmol/L [facility] CO2 [Moles/Vol] 31 mmol/L High 21 - 30 mmol/L [facility] Creatinine [Mass/Vol] 0.79 mg/dL 0.50 - 1.10 mg/dL [facility] GFR/1.73 sq M.predicted MDRD (S/P/Bld) [Vol rate/Area] 93 mL/min/{1.73_m2} - [facility] Comment on above: 2020 CKD EPI [...] Inclusion of Race in Diagnosing Kidney Disease. Dutch Journal of Kidney Diseases 2021;79(2):268-88.e1. 2. N Engl J Med 2020 Vol. 385 Issue 19 Pages 4323-3203 Glucose [Mass/Vol] 96 mg/dL 68 - 110 [...] (RBC) [Ratio] 13.5 % Normal 11.5-14.5 [facility] Comment on above: Performed By: #### C BC ####[facility] [id number] [place], [address] Hematocrit (Bld) [Volume fraction] 32.8 % Low 36.0-46.0 [facility] Comment on above: Performed By: #### C BC ####[facility] [id number] [place], [place], Hemoglobin (Bld) [Mass/Vol] 10.9 g/dL Low 12.0-15.0 [facility] Comment on above: Performed By: #### C BC ####[facility] [id number] [place], [place], MCH (RBC) [Entitic mass] 32.7 pg Normal 26.0-34.0 [facility] Comment on above: Performed By: #### C BC ####[facility] [id number] [place], [place], MCHC (RBC) [Mass/Vol] 33.2 g/dL Normal 32.0-35.9 [facility] Comment on above: Performed By: #### C BC ####[facility] [id number] [place], [place], MCV (RBC) [Entitic vol] 98 fL Normal 80-100 T [facility] Comment on above: Performed By: #### C BC ####[facility] [id number] [place], [place], Platelet mean volume (Bld) [Entitic vol] 9.0 fL Normal 7.5-11.2 [facility] Comment on above: Performed By: #### C BC ####[facility] [id number] [place], [place], Platelets (Bld) [#/Vol] 217 10*3/uL Normal 150-400 The [facility] Comment on above: Performed By: #### C BC ####[facility] [id number] [place], [place], RBC (Bld) [#/Vol] 3.33 10*6/uL Low 4.00-5.20 [facility] Comment on above: Performed By: #### C BC ####[facility] [id number] [place], [place], WBC (Bld) [#/Vol] 16.3 10*3/uL High 4.5-11.5 [facility] Comment on above: Performed By: #### C BC ####[facility] [id number] [place], [place], GLUCOSE, FINGERSTICK-IN OFFI CEon 07-16-2022 Glucose [Mass/Vol] 89 mg/dL Normal 68-110 The [facility] Comment on above: Performed By: #### MILO Mattson CH8 #### [facility] [address], [place], Glucose [Mass/Vol] 89 mg/dL 68 - 110 mg/dL [facility] Interpretation and review of laboratory results Normal [facility] Glucose [Mass/Vol] 160 mg/dL High 68-110 [facility] Comment on above: Result Comment: Ricky lund RN, APN, MD Performed By: #### MILO Mattson CH8 #### [facility] [address], [place], Glucose [Mass/Vol] 160 mg/dL High 68 - 110 mg/dL [facility] Comment on above: Notified CALISTA MORSE MD Interpretation and review of laboratory results Abnormal [facility] Glucose [Mass/Vol] 136 mg/dL High 68-110 [facility] Comment on above: Result Comment: Ricky lund RN, APN, MD Performed By: #### MILO Mattson CH8 #### [facility] [address], [place], Glucose [Mass/Vol] 136 mg/dL High 68 - 110 mg/dL [facility] Comment on above: Notified CALISTA MORSE MD Interpretation and review of laboratory results Abnormal [facility] MAGNESIUMon 07-16-2022 Magnesium [Mass/Vol] 2.0 mg/dL Normal 1.6-2.8 The [facility] Comment on above: Performed By: #### MILO Mattson CH8 #### [facility] [address], [place], Interpretation and review of laboratory results Normal [facility] Magnesium [Mass/Vol] 2.0 mg/dL 1.6 - 2 .8 mg/dL [facility] No Panel Informationon 11-25 -2022 Interpretation and review of laboratory results Abnormal [facility] PHOSPHORUSon 07-16-2022 Phosphate [Mass/Vol] 2.1 mg/dL Low 2.5-4.8 [facility] Comment on above: Performed By: #### M MILO Alan CH8 #### [facility] [address] [place], [address] Phosphate [Mass/Vol] 2.1 mg/dL Low 2.5 - 4 .8 mg/dL [facility] Noteson 07-16-2022 Shank Maker Authentication Interface Message Text -------- GENERAL INFORMATION [...] UNIT/ML injection, 2-9 Units, Subcutaneous, 3x Daily ACBetsy Sujata, MD, 2 Units at 07/15/22 1704 ampicillin-sulbactam [...] oxymetazoline (AFRIN) 0.05 % nasal solution, 2 [place], Nasal, Q4H PRN, Oliver Rogers DMD sodium chloride (OCEAN) 0.65 % nasal spray, 1 [place], Nasal, Q1H PRN, Oliver Rogers DMD naloxone [...] 2. (more content not included)... Normal [facility] Shank Maker Authentication Interface Message Text Attestation signed by [...] MD SURGERY DAILY PROGRESS NOTE Isabelle Hewitt [phone] Isabelle Hewitt is a 47yo F with [...] bisacodyl 10 mg Daily PRN oxymetazoline 2 [place] Q4H PRN sodium chloride 1 [place] Q1H PRN naloxone 0.4 mg PRN IV [...] okay to be transferred to [facility]. Neuro: - Acetaminophen 650 mg Q4H scheduled - Ibuprofen 600 mg Q6H PRN mild pain - Oxycodone 5/10 mg Q4H PRN moderate/severe pain OMFS: - Peridex mouth rinses BID Cardiac: - Lipitor 20 mg daily Resp: - O2 as needed to maintain sats >92% - Humidified face tent - Elcho nasal spray Q1H PRN - Afrin nasal [...] - Okay to transfer to [facility] Oliver Rogers DMD home demonstration agent, PGY-1 Team Pager: [phone] Normal [facility] BASIC METABOLIC PANELon 11-2 Anion gap [Moles/Vol] 15 mmol/L Normal 10-20 [facility] Comment on above: Performed By: #### MILO Mattson, CH8 #### [facility] [address] [place], [address] Calcium [Mass/Vol] 8.0 mg/dL Low 8.4-10.4 [facility] Comment on above: Performed By: #### MILO Mattson, CH8 #### [facility] [address] [place], [address] Chloride [Moles/Vol] 102 mmol/L Normal 97-111 [facility] Comment on above: Performed By: #### MILO Mattson CH8 #### [facility] [address], [place], CO2 [Moles/Vol] 28 mmol/L Normal 21-30 [facility] Comment on above: Performed By: #### MILO Mattson CH8 #### [facility] [address], [place], Creatinine [Mass/Vol] 0.91 mg/dL Normal 0.50-1.10 [facility] Comment on above: Performed By: #### MILO Mattson CH8 #### [facility] [address], [place], ESTIMATED GFR (CKD-EPI) 78 mL/min/1.73sqm Normal >=60 [facility] Comment on above: Result Comment: 2020 [...] Inclusion of Race in Diagnosing Kidney Disease. Dutch Journal of Kidney Diseases 2021;79(2):268-88.e1. 2. N Engl J Med 2020 Vol. 385 Issue 19 Pages 9119-4059 Performed By: #### MILO Mattson CH8 #### [facility] [address], [place], Glucose [Mass/Vol] 147 mg/dL High 68-110 [facility] Comment on above: Performed By: #### MILO Mattson CH8 #### [facility] [address], [place], Potassium [Moles/Vol] 4.3 mmol/L Normal 3.3-5.3 [facility] Comment on above: Performed By: #### MILO Mattson CH8 #### [facility] [address], [place], Sodium [Moles/Vol] 141 mmol/L Normal 135-148 The [facility] Comment on above: Performed By: #### MILO Mattson CH8 #### S [facility] LABORAT[facility] [address], [place], Urea nitrogen [Mass/Vol] 16 mg/dL Normal 8-22 [facility] Comment on above: Performed By: #### MILO Mattson CH8 #### S [facility] [address], [place], Basic metabolic 2000 panelon 07-15-2022 Anion gap [Moles/Vol] 15 mmol/L 10 - 20 [facility] Calcium [Mass/Vol] 8.0 mg/dL Low 8.4 - 10. 4 mg/dL [facility] Chloride [Moles/Vol] 102 mmol/L 97 - 11 1 mmol/L [facility] CO2 [Moles/Vol] 28 mmol/L 21 - 30 mmol/L [facility] Creatinine [Mass/Vol] 0.91 mg/dL 0.50 - 1.10 mg/dL [facility] GFR/1.73 sq M.predicted MDRD (S/P/Bld) [Vol rate/Area] 78 mL/min/{1.73_m2} - [facility] Comment on above: 2020 CKD EPI [...] Inclusion of Race in Diagnosing Kidney Disease. Dutch Journal of Kidney Diseases 202;79(2):268-88.e1. 2. N Engl J Med 1 Vol. 385 Issue 19 Pages 7182-1924 Glucose [Mass/Vol] 147 mg/dL High 68 - 110 mg/dL [facility] Interpretation and review of laboratory results Abnormal [facility] Potassium [Moles/Vol] 4.3 mmol/L 3.3 - 5.3 mmol/L [facility] Sodium [Moles/Vol] 141 mmol/L 135 - 148 mmol/L [facility] Urea nitrogen [Mass/Vol] 16 mg/dL 8 - 22 mg/dL [facility] CBC panel Auto (Bld)on 07-15 Erythrocyte distribution width (RBC) [Ratio] 13.6 % 11.5 - 14.5 % [facility] Hematocrit (Bld) [Volume fraction] 34.4 % Low 36.0 - 46.0 % [facility] Hemoglobin (Bld) [Mass/Vol] 11.5 g/dL Low 12.0 - 15.0 g/dL [facility] Interpretation and review of [facility] results Abnormal [facility] MCH (RBC) [Entitic mass] 32.3 pg 26.0 - 34.0 pg [facility] MCHC (RBC) [Mass/Vol] 33.4 g/dL 32.0 - 35.9 g/dL [facility] MCV (RBC) [Entitic vol] 97 fL 80 - 100 fL [facility] Platelet mean volume (Bld) [Entitic vol] 8.6 fL 7.5 - 11.2 fL [facility] Platelets (Bld) [#/Vol] 267 10*3/uL 150 - 400 K/uL [facility] RBC (Bld) [#/Vol] 3.55 10*6/uL Low [facility] WBC (Bld) [#/Vol] 18.2 10*3/uL High 4.5 - 11.5 K/uL [facility] COMPLETE BLOOD COUNTon 07-15 Erythrocyte distribution width (RBC) [Ratio] 13.6 % Normal 11.5-14.5 The [facility] Comment on above: Performed By: #### MILO Mattson CH8 #### [facility] [address] [place] [address], Hematocrit (Bld) [Volume fraction] 34.4 % Low 36.0-46.0 [facility] Comment on above: Performed By: #### MILO Mattson CH8 #### [facility] [address], [place], Hemoglobin (Bld) [Mass/Vol] 11.5 g/dL Low 12.0-15.0 [facility] Comment on above: Performed By: #### MILO Mattson CH8 #### [facility] [address] [place] [address], MCH (RBC) [Entitic mass] 32.3 pg Normal 26.0-34.0 [facility] Comment on above: Performed By: #### MILO Mattson CH8 #### [facility] [address] [place] [address], MCHC (RBC) [Mass/Vol] 33.4 g/dL Normal 32.0-35.9 [facility] Comment on above: Performed By: #### MILO Mattson CH8 #### S [facility] LABORAT[facility] [address], [place], MCV (RBC) [Entitic vol] 97 fL Normal 80-100 T [facility] Comment on above: Performed By: #### MILO Mattson CH8 #### S [facility] LABORATORY [address] [place] [address], Platelet mean volume (Bld) [Entitic vol] 8.6 fL Normal 7.5-11.2 [facility] Comment on above: Performed By: #### MILO Mattson CH8 #### S [facility] LAB[facility]AT[facility] [address] [place] [address], Platelets (Bld) [#/Vol] 267 10*3/uL Normal 150-400 [facility] Comment on above: Performed By: #### MILO Mattson CH8 #### S [facility] LABORATORY [address] [place] [address], RBC (Bld) [#/Vol] 3.55 10*6/uL Low 4.00-5.20 [facility] Comment on above: Performed By: #### MILO Mattson CH8 #### S [facility] LABORAT[facility] [address] [place] [address], WBC (Bld) [#/Vol] 18.2 10*3/uL High 4.5-11.5 [facility] Comment on above: Performed By: #### MILO Mattson CH8 #### S [facility] LABORATORY [address] [place] [address] [place], [address] Care Plan Noteon 07-15-2022 Shank Maker Authentication Interface Message Text Problem: Routine Care: [...] will be met Outcome: Progressing Normal [facility] Shank Maker Authentication Interface Message Text Problem: Discharge Planning: [...] Alan, 8 #### [facility] [address] [place], [address] Glucose [Mass/Vol] 155 mg/dL High 68 - 110 mg/dL [facility] Comment on above: Notified CALISTA MORSE MD Interpretation and review of laboratory results Abnormal [facility] Glucose [Mass/Vol] 137 mg/dL High 68-110 [facility] Comment on above: Performed By: #### 8 2948 ####NURSING GLUCOSE [id number] [place], [address] Glucose [Mass/Vol] 137 mg/dL High 68 - 110 mg/dL [facility] Interpretation and review of laboratory results Abnormal [facility] Progress Noteson 07-15-2022 Shank Maker Authentication Interface Message Text Attestation signed by [...] MD SURGERY DAILY PROGRESS NOTE Isabelle Hewitt [phone] Isabelle Hewitt is a 47yo F with [...] bisacodyl 10 mg Daily PRN oxymetazoline 2 [place] Q4H PRN sodium chloride 1 [place] Q1H PRN naloxone 0.4 mg PRN IV [...] Glu BUN Cr Ca Mg PO4 07/15/22 004 141 4.3 102 28 15 147 16 [...] daily -Lipitor 20mg daily Pulm: -Oxymetazoline 2 [place] q4h PRN -Elcho 1 [place] q1h PRN -Face Tent on humidified air [...] Seferino Vaz DMD OMFS Resident Team Pager [phone] Normal [facility] Shank Maker Authentication Interface Message Text -------- GENERAL INFORMATION [...] oxymetazoline (AFRIN) 0.05 % nasal solution, 2 [place], Nasal, Q4H PRN, Olievr Rogers DMD sodium chloride (OCEAN) 0.65 % nasal spray, 1 [place], Nasal, Q1H PRN, Oliver Rogers DMD enoxaparin (LOVENOX) 40 MG/0.4ML injection 40 mg, 40 mg, Subcutaneous, Daily, Oliver Rogers DMD, 40 mg at 07/14/22 1658 naloxone (NARCAN) 0.4 MG/ML injection, 0.4 mg, Intravenous Push, CONSUELON, Mark Atwood MD lactated ringers iv infusion, , Intravenous, Continuous, HiwotSaleem DMD, Last Rate: 75 mL/hr at 07/15/22 [...] - (more content not included)... Normal [facility] Anesthesia Attestationon Shank Maker [employer] Interface Message Text Anesthesia Attestation ATTESTATION OF INFORMED CONSENT FOR ANESTHESIA Anesthesia options were discussed with the patient and/or legal member services representative. The risks, benefits and alternatives were reviewed. Questions regarding anesthesia were answered. Patient and/or legal member services representative knows such anesthetics and procedures may be performed by Resident physicians, Certified Anesthesiologist Assistants, or Certified Nurse Anesthetists under the supervision of a physician. The patient /or the patient's legal member services representative agree with the plan for anesthesia. Normal [facility] Anesthesia Postprocedure Lauren patel 11-23-2022 Shank Maker Authentication Interface Message Text Anesthesia Postoperative Assessment: [...] EVENTS: No notable events documented. Normal [facility] Anesthesia Transfer Of Careo n 07-14-2022 Shank Maker Authentication Interface Message Text Patient taken to [...] understanding of the report was received. CINTIA Mckay Normal [facility] BLOOD GAS, ARTERIALon 2021 CR DEBORAH 0.5 mmol/L Normal -2.0-2.0 [facility] Comment on above: Performed By: #### C R LYTES, CR GLU, LACT, CR BGA, CR ICA, CR COOX #### [facility] [address] [place] [address], CR PCO2 37.0 mm Hg Normal 35.0-45.0 [facility] Comment on above: Performed By: #### C R LYTES, CR GLU, LACT, CR BGA, CR ICA, CR COOX #### [facility] [address] [place] [address], CR PHA 7.429 Normal 7.35-7.45 [facility] Comment on above: Performed By: #### C R LYTES, CR GLU, LACT, CR BGA, CR ICA, CR COOX #### [facility] [address] [place] [address], CR PO2 118 mm Hg High 80-100 [facility] Comment on above: Performed By: #### C R LYTES, CR GLU, LACT, CR BGA, CR ICA, CR COOX #### [facility] [address] [place] [address], HCO3 (Bld) [Moles/Vol] 24 mmol/L Normal 22-28 Th e [facility] Comment on above: Performed By: #### C R LYTES, CR GLU, LACT, CR BGA, CR ICA, CR COOX #### [facility] [address] [place] [address], Oxygen saturation in Blood 98.8 % Normal >=95.1 [facility] Comment on above: Performed By: #### C R LYTES, CR GLU, LACT, CR BGA, CR ICA, CR COOX #### [facility] [address] [place] [address], BLOOD GAS, ARTERIALOrdered B y: Osmar Zamora on 07-14-2022 Base excess Calc (Bld) [Moles/Vol] 0.5 mmol/L -2.0 - 2.0 mmol/L [facility] CO2 (Bld) [Partial pressure] 37.0 mm[Hg] [facility] Oxygen (Bld) [Partial pressure] 118 mm[Hg] High [facility] pH (Bld) 7.429 [pH] 7.35 - 7.45 [facility] Blood Attestationon 07-14-20 Shank Maker Authentication Interface Message Text Blood Attestation ATTESTATION OF INFORMED CONSENT FOR BLOOD The transfusion of blood and/or blood components were discussed with the patient and/or legal member services representative. The risks, benefits and alternatives were reviewed. Questions regarding blood transfusions were answered. The patient /or the patient's legal member services representative agree with the plan for transfusion of blood and/or blood components. Normal [facility] Brief Operative Noteon 07-14 Shank Maker Authentication Interface Message Text Brief Operative Note MAIN OR 12 Isabelle Hewitt 47 year old female Surgical Contact Serial Number: [id number] Preoperative Diagnosis: DIONNE (obstructive sleep apnea) [G47.33] Postoperative Diagnosis: * DIONNE (obstructive sleep apnea) [G47.33] Procedures: Surgical CPTs Procedures RECONSTRUCTION MIDFACE, LEFORT I; 1 PIECE, W/O BONE GRAFT RECONSTRUCTION, MANDIBULAR RAMI AND /OR BODY, SAGITTAL SPLIT; W/INT RIGID FIXATION No data filed Surgeon(s): Surgeon(s): Rikki Rodrigues DMD, MD Staff: Scrub: Annelise Saeed RN; Babs Wells RN Glass Blower Helper Nurse: Stephanie Brannon RN; Babs Wells RN Student Teacher: Margot Ovalles DDS; Saleem Mi DMD Anesthesia: [...] CR ICA 1.00 mmol/L Low 1.10-1.40 [facility] Comment on above: Performed By: #### C R LYTES, CR GLU, LACT, CR BGA, CR ICA, CR COOX #### [facility] [address] [place] [address], Calcium.ionized (Bld) [Moles/Vol] 1.00 mmol/L Low 1.10 - 1.40 mmol/L [facility] CO-OXIMETERon 07-14-2022 CARBOXYHEMOGLOBIN 1.5 % Normal <3.0 [facility] Comment on above: Performed By: #### C R LYTES, CR GLU, LACT, CR BGA, CR ICA, CR COOX #### [facility] [address] [place] [address], CR HBMET 0.8 % Normal <3.0 [facility] Comment on above: Performed By: #### C R LYTES, CR GLU, LACT, CR BGA, CR ICA, CR COOX #### [facility] [address] [place] [address], Hematocrit (Bld) [Volume fraction] 37.6 % Normal 36.0-46.0 [facility] Comment on above: Performed By: #### C R LYTES, CR GLU, LACT, CR BGA, CR ICA, CR COOX #### [facility] [address] [place] [address], Hemoglobin (Bld) [Mass/Vol] 12.2 g/dL Normal 12.0-16.0 [facility] Comment on above: Performed By: #### C R LYTES, CR GLU, LACT, CR BGA, CR ICA, CR COOX #### [facility] [address], [place], OXYHEMOGLOBIN 96.5 % Normal 95.0-100.0 [facility] Comment on above: Performed By: #### C R LYTES, CR GLU, LACT, CR BGA, CR ICA, CR COOX #### [facility] [address], [place], Carboxyhemoglobin (BldA) [Mass fraction] 1.5 % NINF - 3.0 % [facility] Hematocrit (BldA) [Volume fraction] 37.6 % 36.0 - 46.0 % [facility] Hemoglobin (Bld) [Mass/Vol] 12.2 g/dL 12.0 - 16.0 g/dL [facility] Methemoglobin (BldA) [Mass fraction] 0.8 % NINF - 3.0 % [facility] Oxyhemoglobin (BldA) [Mass fraction] 96.5 % 95.0 - 100.0 % [facility] Consultson 07-14-2022 Shank Maker Authentication Interface Message Text Surgical ICU H AND P Isabelle Hewitt [phone] HPI: Ms Hewitt is a 47 year [...] floor (more content not included)... Normal [facility] ELECTROLYTESon 07-14-2022 Chloride [Moles/Vol] 107 mmol/L Normal 97-111 [facility] Comment on above: Performed By: #### C R LYTES, CR GLU, LACT, CR BGA, CR ICA, CR COOX #### S PATHOLOGY LABORATORY [address] [place] [address], Potassium [Moles/Vol] 3.7 mmol/L Normal 3.3-5.3 [facility] Comment on above: Performed By: #### C R LYTES, CR GLU, LACT, CR BGA, CR ICA, CR COOX #### S PATHOLOGY LABORATORY [address] [place] [address], Sodium [Moles/Vol] 142 mmol/L Normal 135-148 [facility] Comment on above: Performed By: #### C R LYTES, CR GLU, LACT, CR BGA, CR ICA, CR COOX #### S [facility]OLOGY LABORATORY [address] [place] [address], Chloride [Moles/Vol] 107 mmol/L 97 - 11 1 mmol/L [facility] Potassium [Moles/Vol] 3.7 mmol/L 3.3 - 5.3 mmol/L [facility] Sodium [Moles/Vol] 142 mmol/L 135 - 148 mmol/L [facility] GLUCOSE, FINGERSTICK-IN OFFI CEon 07-14-2022 Glucose [Mass/Vol] 156 mg/dL High 68-110 [facility] Comment on above: Performed By: #### 8 2948 ####NURSING GLUCOSE [id number] [place], [address] Glucose [Mass/Vol] 156 mg/dL High 68 - 110 mg/dL [facility] Interpretation and review of laboratory results [facility]normal [facility] Glucose [Mass/Vol] 110 mg/dL Normal 68-110 [facility] Comment on above: Performed By: #### 8 [id number] ####NURSING GLUCOSE [id number] [place], [address] Glucose [Mass/Vol] 110 mg/dL 68 - 110 mg/dL [facility] Interpretation and review of laboratory results Normal [facility] GLUCOSE, WHOLE BLOODon 07-14 CR GLU 93 mg/dL Normal 68-98 [facility] Comment on above: Performed By: #### C R LYTES, CR GLU, LACT, CR BGA, CR ICA, CR COOX ####[facility] [id number] [place], [address] Glucose [Mass/Vol] 93 mg/dL 68 - 98 mg/dL [facility] LACTIC ACIDon 07-14-2022 CR LACT 2.0 mmol/L Normal 0.5-2.0 [facility] Comment on above: Performed By: #### C R LYTES, CR GLU, LACT, CR BGA, CR ICA, CR COOX #### [facility] [address] [place], [address] Lactate [Moles/Vol] 2.0 mmol/L 0.5 - 2. 0 mmol/L [facility] - Chemistry and C hemistry - challengeOrdered By: Osmar Zamora on 07-14-2022 HCO3 (Bld) [Moles/Vol] 24 mmol/L 22 - 28 mmol/L [facility] No Panel Informationon 07-14 Interpretation and review of laboratory results Normal [facility] No Panel InformationOrdered By: Osmar Zamora on 07-14-2022 Interpretation and review of laboratory results Abnormal [facility] OP Noteon 07-14-2022 [employer] Authentication Interface Message Text Name: ISABELLE HEWITT MR#: [id number] [facility]#: [id number] Date of Procedure: 07/14/2022 ATTENDING SURGEON: Rikki [...] was placed deep in the oropharynx. 4 Greenway MMF screws were placed, 2 in the [...] a combination of osteotomes and a Kaufman pre press operator. On both sides, the inferior alveolar nerve [...] Fixation on both sides was consisted of Greenway dog bone shaped plate with 3 monocortical [...] FINDINGS: IMPRESSION: Single view of the filter Senath with linear radiopaque foreign body compatible with retained needle. MACRO: None Normal [facility] XR Skull PA and Right latera l and Left lateralon 07-14-2022 EXAMINATION: XR SKUL L PA+LATERAL 07/14/2022 10:15 AM CLINICAL HISTORY: Reason for Exam: retained object. ASSOCIATED DIAGNOSIS: ORDERING PROVIDER: CORRINE RODRIGUES TECH[employer]OLOGISTS NOTE: Image of filter for retained surgical needle per Dr. Rodrigues. COMPARISON: None FINDINGS: IMPRESSION: Single view of the filter Senath with linear radiopaque foreign body compatible with retained needle. MACRO: None RADIOLOGY Jerel Guzman MD - 07/14/2022 EXAMINATION: XR SKULL PA+LATERAL 07/14/2022 10:15 AM CLINICAL HISTORY: Reason for Exam: retained object. ASSOCIATED DIAGNOSIS: ORDERING PROVIDER: CORRINE RODRIGUES [employer]NOLOGISTS NOTE: Image of filter for retained surgical needle per Dr. Rodrigues. COMPARISON: None FINDINGS: IMPRESSION: Single view of the filter Senath with linear radiopaque foreign body compatible with retained needle. 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 Normal [facility] Telephone Encounteron 2021 [employer] Authentication Interface Message Text Patient states she is faxing over paperwork for her time off of work d/t surgery tomorrow, 07/14. Patient would like a call when this is received if possible. Please call [phone]. Patient informed it might not be possible, just in case. Thank you! Normal [facility] Telephone Encounteron 2021 [employer] Authentication Interface Message Text 3120: Contacted pt and informed her to call the ENT office to schedule appt with Dr Moreno s/p jaw surgery in about 3 months due to healing time. Pt verbalized understanding. Latoya Manzo, RN Normal [facility] Shank Maker Authentication Interface Message Text Dr. Joel, Patient calling stating that she is going forward with the jaw surgery that you recommended next 07/14/22. Patient would like to know what the next step is for after the surgery. PT: [phone] Thanks, D Normal [facility] ABO RH TYPEon 07-08-2022 ABO and Rh group Nom (Bld) Blood group B Rh(D) positive Normal [facility] Comment on above: Performed By: #### M MILO Alan, CH8 #### [facility] [address] [place] [address], [id number] CBC panel Auto (Bld)on 07-08 Erythrocyte distribution width (RBC) [Ratio] 13.4 % 11.5 - 14.5 % [facility] Hematocrit (Bld) [Volume fraction] 42.2 % 36.0 - 46.0 % [facility] Hemoglobin (Bld) [Mass/Vol] 14.3 g/dL 12.0 - 15.0 g/dL [facility] Interpretation and review of laboratory results [...] on above: Performed By: #### C BC ####[facility] [id number] [place], [place], Hematocrit (Bld) [Volume fraction] 42.2 % Normal 36.0-46.0 [facility] Comment on above: Performed By: #### C BC ####[facility] [id number] [place], [place], Hemoglobin (Bld) [Mass/Vol] 14.3 g/dL Normal 12.0-15.0 [facility] Comment on above: Performed By: #### C BC ####[facility] [id number] [place], [place], MCH (RBC) [Entitic mass] 33.1 pg Normal 26.0-34.0 [facility] Comment on above: Performed By: #### C BC ####[facility] [id number] [place], [place], MCHC (RBC) [Mass/Vol] 33.9 g/dL Normal 32.0-35.9 [facility] Comment on above: Performed By: #### C BC ####[facility] [id number] [place], [place], MCV (RBC) [Entitic vol] 98 fL Normal 80-100 T [facility] Comment on above: Performed By: #### C BC ####[facility] [id number] [place], [place], Platelet mean volume (Bld) [Entitic vol] 8.8 fL Normal 7.5-11.2 [facility] Comment on above: Performed By: #### C BC ####[facility] [id number] [place], [place], Platelets (Bld) [#/Vol] 274 10*3/uL Normal 150-400 [facility] Comment on above: Performed By: #### C BC ####[facility] [id number] [place], [place], RBC (Bld) [#/Vol] 4.32 10*6/uL Normal 4.00-5.20 [facility] Comment on above: Performed By: #### C BC ####[facility] [id number] [place], [place], WBC (Bld) [#/Vol] 7.2 10*3/uL Normal 4.5-11.5 [facility] Comment on above: Performed By: #### C BC ####S PATHOLOGY [id number] [place], [place], Laboratory - Blood bankon ABO and Rh group Nom (Bld) Blood group B Rh(D) positive [facility] No Panel Informationon 07-08 [facility] PSE Appt H AND Neftali Shank Maker Authentication Interface Message Text Patient was identified by name and date of . Edwina Daniel Bill of rights provided to patient Normal [facility] Patient Instructionson 07-08 Shank Maker Authentication Interface Message Text On the morning [...] for pain Please hold all Vitamin E, [place] 3, fish oil and herbal supplements for 1 week prior to surgery Normal [facility] TYPE AND SCREENon 07-08-2022 ABO and Rh group Nom (Bld) No Previous Results [facility] Comment on above: Patient does not req uire a 2nd sample drawn prior to surgery date of 07/14/2022___. Specimen meets Blood Bank's Pre-Surgical Protocol and is valid within 14 days from date of collection but will at midnight on the day of approved Surgery. Corrected Result : 07/08/2022 17:16:22 : By Transfusion Medicine Blood group antibody screen Ql Negative [facility] ABO and Rh group Nom (Bld) Blood group B Rh(D) positive Normal [facility] Comment on above: Performed By: #### MILO Mattson CH8 #### S PATHOLOGY LABORATORY [address] [place] [address], ABO and Rh group Nom (Bld) No Previous Results Normal [facility] Comment on above: Result Comment: Deepa [...] MILO Mattson CH8 #### S PATHOLOGY LABORATORY [address] [place] [address], ABSC INT Negative Normal [facility] Comment on above: Performed By: #### MILO Mattson CH8 #### [facility] [address] [place] [address], FREE T4on 07-07-2022 Free T4 [Mass/Vol] 0.83 ng/dL Normal 0.76-1.46 [facility] Comment on above: Performed By: #### F T4 #### [facility] [address] [address] [address] Stephanie Gibbs TSHon 07-07-2022 TSH 3.715 uIU/mL Normal 0.358-3.740 [facility] Comment on above: Performed By: #### C BC #### [facility] [address] [place], [place] [address] Dr. Stephanie Gibbs PSE Appt H AND Neftali Shank Maker Authentication Interface Message Text Error Normal [facility] Progress Noteson 07-02-2022 Shank Maker Authentication Interface Message Text Patient was seen in the [facility] clinic for alginate impressions of the edentulous maxilla and CBCT with denture in place. Seferino Vaz DMD FS Resident Normal [facility] Shank Maker Authentication Interface Message Text ORAL SURGERY CLINIC FOLLOW UP VISIT Patient was seen in the [facility] clinic for alginate impressions of the edentulous maxilla and CBCT with denture in place. Seferino Vaz DMD [facility] Resident msBrad Normal [facility] Patient Instructionson 06-18 Shank Maker Authentication Interface Message Text Maxillomandibular advancement surgery, [...] daytime fatigue and inconsistent sleep. Normal [facility] Progress Noteson 06-18-2022 Shank Maker Authentication Interface Message Text [facility] PATIENT VISIT CHIEF COMPLAINT: sleep apnea HISTORY OF PRESENT ILLNESS: Patient presents for evaluation for surgical treatment of DIONNE. She is extremely symptomatic from her DIONNE, and suffers from CPAP intolerance. [place] sleepiness scale is 18. Patient is starting [...] on 06/18/2022, and Digital version in Dentistry [employer] system. Airway measurements are very small compared to norms. Retrognathic mandible. DIAGNOSIS: Obstructive sleep apnea [920544] TREATMENT: Exam, Panorex evaluated, and pictures/models taken [...] for (more content not included)... Normal [facility] Progress Noteson 06-15-2022 Shank Maker Authentication Interface Message Text CC: sleep disordered [...] nerve stimulator implanted following MMA Normal [facility] Anesthesia Attestationon Shank Maker Authentication Interface Message Text Anesthesia Attestation ATTESTATION OF INFORMED CONSENT FOR ANESTHESIA Anesthesia options were discussed with the patient and/or legal member services representative. The risks, benefits and alternatives were reviewed. Questions regarding anesthesia were answered. Patient and/or legal member services representative knows such anesthetics and procedures may be performed by Resident physicians, Certified Anesthesiologist Assistants, or Certified Nurse Anesthetists under the supervision of a physician. The patient /or the patient's legal member services representative agree with the plan for anesthesia. Normal [facility] Anesthesia Postprocedure Lauren luationon 06-03-2022 Shank Maker Authentication Interface Message Text Anesthesia Postoperative Assessment: [...] EVENTS: No notable events documented. Normal [facility] Anesthesia Preprocedure Eval rich 06-03-2022 Shank Maker Authentication Interface Message Text ASA: 2 No [...] the history and physical examination. Normal [facility] Anesthesia Transfer Of Careo n 06-03-2022 Shank Maker Authentication Interface Message Text Patient taken to [...] report was received. CINTIA Patel Normal [facility] Brief Operative Noteon 06-03 Shank Maker Authentication Interface Message Text Brief Operative Note PACU 19 Isabelle Hewitt 47 year old female Surgical Contact Serial Number: [id number] Preoperative Diagnosis: DIONNE (obstructive sleep apnea) [G47.33] [...] Right Hand (Active) Site Assessment Dressing intact;WNL 10/13/22 1314 Infusion Status Port #1 Infusing 06/03/22 [...] Brown PA-C 06/03/2022 2:48 PM Normal [facility] OP Noteon 06-03-2022 Shank Maker Authentication Interface Message Text Name: ISABELLE HEWITT MR#: [id number] ENC#: [id number] Date of Procedure: 06/03/2022 ATTENDING SURGEON: Yi [...] taken back to recovery. Yi Moreno MD SILK SOAKER/Marii/ Dict: 06/03/2022 15:35:21 TRANS: 06/04/2022 07:02:00 JOB: [id number] [employer]#: [id number] Normal [facility] Progress Noteson 06-03-2022 Shank Maker Authentication Interface Message Text Discharge instructions reviewed in preop with patient. Patient verbalized understanding. No questions at this time. Normal [facility] Telephone Encounteron 2021 Shank Maker Authentication Interface Message Text Pre-op COVID test results received AND scanned into [employer]. Results NEGATIVE on 05/31/2022. Scheduled for DISE on 06/03/2022. Normal [facility] COVID Quick Testingon 2021 Result Negative [employer] Other PSE Call H AND Neftali Shank Maker Authentication Interface Message Text Telephone History Isabelle Hewitt, [id number] 05/28/2022 47 year old 190 lbs 5' [...] capsul (more content not included)... Normal [facility] Telephone Encounteron 2021 Shank Maker Authentication Interface Message Text Patient is scheduled for DISE on 06/03/2022. Prefers to complete pre-op COVID testing closer to home. Instructed to obtain testing 48-72 hours prior to surgery and bring copy of results on day of surgery. PSE contact information provided. Normal [facility] Addendum Noteon 05-26-2022 Shank Maker Authentication Interface Message Text Addended by: YI MORENO on: 05/26/2022 05:25 PM Modules accepted: Orders Normal [facility] Telephone Encounteron 2021 Shank Maker Authentication Interface Message Text Arrangements to be made for pre-op COVID testing per ENT request. Normal [facility] MRI PITUITARY WO W CONon MRI [...] by: WILEY JAMES Date: 2022-05-18 13:10 Normal The [facility] US PELVIS AND TRANSVAGon US PELVIS [...] MADDI WINSTON Date: 2022-05-11 16:51 Normal The [facility] ESTRADIOLon 05-08-2022 Estradiol 16.3 pg/mL Normal The [facility] Comment on above: Result Comment: Adul t Female: Follicular phase 12.5 - 166.0 Ovulation phase 85.8 - 498.0 Luteal phase 43.8 - 211.0 Postmenopausal <6.0 - 54.7 1st trimester 215.0 - >4300.0 Salma ECLIA methodology Performed By: #### C BC #### [facility] [address] [place] [address] Dr. Stephanie Gibbs FSHon 05-08-2022 FSH 11.3 mIU/mL Normal [facility] Comment on above: Result Comment: Adul t Female: Follicular phase 3.5 - 12.5 Ovulation phase 4.7 - 21.5 Luteal phase 1.7 - 7.7 Postmenopausal 25.8 - 134.8 Performed By: #### C BC #### [facility] [address] [place] [address] Dr. Stephanie Gibbs LUTEINIZING HORMONE (LH)on 0 05-08-2022 LH 4.7 mIU/mL Normal [facility] Comment on above: Result Comment: Adul t Female: Follicular phase 2.4 - 12.6 Ovulation phase 14.0 - 95.6 Luteal phase 1.0 - 11.4 Postmenopausal 7.7 - 58.5 Performed By: #### L BCL #### [facility] [address] [place] [address] Dr. Stephanie Gibbs PROGESTERONEon 05-08-2022 Progesterone 0.2 ng/mL Normal [facility] Comment on above: Result Comment: Foll icular phase 0.1 - 0.9 Luteal phase 1.8 - 23.9 Ovulation phase 0.1 - 12.0 First trimester 11.0 - 44.3 Second trimester 25.4 - 83.3 Third trimester 58.7 - 214.0 Postmenopausal 0.0 - 0.1 Performed By: #### P ROGES #### [facility] [address] [place] [address] Dr. Stephanie Gibbs PROLACTINon 05-08-2022 Prolactin 43.0 ng/mL Critically high 4.8-23.3 [facility] Comment on above: Performed By: #### F T4 #### [facility] [address] [place] [address] Dr. Stephanie Gibbs CBC AUTO DIFFon 05-07-2022 BASO # 0.1 103/ul Normal 0.0-0.1 [facility] Comment on above: Performed By: #### C BC #### [facility] [address] [place] [address] Dr. Stephanie Gibbs Basophils/100 WBC (Bld) 1.0 % Normal 0.2-2.0 [facility] Comment on above: Performed By: #### C BC #### [facility] [address] [place] [address] Dr. Stephanie Gibbs EO # 0.2 103/ul Normal 0.0-0.7 [facility] Comment on above: Performed By: #### C BC #### [facility] [address] [place] [address] Dr. Stephanie Gibbs Eosinophils/100 WBC (Bld) 2.7 % Normal 0.9-7.0 [facility] Comment on above: Performed By: #### C BC #### [facility] [address] [place] [address] Dr. Stephanie Gibbs Erythrocyte distribution width (RBC) [Ratio] 13.0 % Normal 11.0-15.0 [facility] Comment on above: Performed By: #### C BC #### [facility] [address] [place] [address] Dr. Stephanie Gibbs Hematocrit (Bld) [Volume fraction] 39.0 % Normal 36.0-48.0 [facility] Comment on above: Performed By: #### C BC #### [facility] [address] [place] [address] Dr. Stephanie Gibbs Hemoglobin (Bld) [Mass/Vol] 13.0 g/dL Normal 12.0-16.0 [facility] Comment on above: Performed By: #### C BC #### [facility] [address] [place] [address] Dr. Stephanie Gibbs IG # 0.03 10e3/ul Normal 0.00-0.03 [facility] Comment on above: Performed By: #### C BC #### [facility] [address] [place] [address] Dr. Stephanie Gibbs IG % 0.4 % Normal 0.0-0.5 [facility] Comment on above: Performed By: #### C BC #### [facility] [address] [place] [address] Dr. Stephanie Gibbs LYMPH # 2.4 103/ul Normal 1.2-3.8 [facility] Comment on above: Performed By: #### C BC #### [facility] [address] [place] [address] Dr. Stephanie Gibbs Lymphocytes/100 WBC (Bld) 33.8 % Normal 20.5-60.0 [facility] Comment on above: Performed By: #### C BC #### [facility] [address] [place] [address] Dr. Stephanie Gibbs MANUAL DIFF REQ NO Normal [facility] Comment on above: Performed By: #### C BC #### [facility] [address] [place] [address] Dr. Stephanie Gibbs MCH (RBC) [Entitic mass] 32.2 pg Normal 26.7-34.0 [facility] Comment on above: Performed By: #### C BC #### [facility] [address] [place] [address] Dr. Stephanie Gibbs MCHC (RBC) [Mass/Vol] 33.3 g/dL Normal 29.9-35.2 [facility] Comment on above: Performed By: #### C BC #### [facility] [address] [place] [address] Dr. Stephanie Gibbs MCV (RBC) [Entitic vol] 96.5 fL Normal 81.0-99.0 [facility] Comment on above: Performed By: #### C BC #### [facility] [address] [place] [address] Dr. Stephanie Gibbs MONO # 0.4 103/ul Normal 0.3-0.8 [facility] Comment on above: Performed By: #### C BC #### [facility] [address] [place] [address] Dr. Stephanie Gibbs Monocytes/100 WBC (Bld) 5.9 % Normal 1.7-12.0 [facility] Comment on above: Performed By: #### C BC #### [facility] [address] [place] [address] Dr. Stephanie Gibbs NEUT # 4.0 103/ul Normal 1.4-6.5 [facility] Comment on above: Performed By: #### C BC #### [facility] [address] [place] [address] Dr. Stephanie Gibbs Neutrophils/100 WBC (Bld) 56.2 % Normal 43.0-75.0 [facility] Comment on above: Performed By: #### C BC #### [facility] [address] [place] [address] Dr. Stephanie Gibbs Platelet mean volume (Bld) [Entitic vol] 9.8 fL Normal 9.5-13.5 [facility] Comment on above: Performed By: #### C BC #### [facility] [address] [place] [address] Dr. Stephanie Gibbs PLT 245 103/ul Normal 150-450 [facility] Comment on above: Performed By: #### C BC #### [facility] [address] [place] [address] Dr. Stephanie Gibbs RBC 4.04 106/ul Critically low 4.20-5.40 [facility] Comment on above: Performed By: #### C BC #### [facility] [address] [place] [address] Dr. Stephanie Gibbs WBC 7.2 103/ul Normal 4.0-11.0 [facility] Comment on above: Performed By: #### C BC #### [facility] [address] [place] [address] Dr. Stephanie Gibbs FREE T4on 05-07-2022 Free T4 [Mass/Vol] 0.69 ng/dL Critically low 0.76-1.46 [facility] Comment on above: Performed By: #### C BC #### [facility] [address] [place] [address] Dr. Stephanie Gibbs GLYCOHEMOGLOBIN A1Con 2021 ADA RECOMMENDATION SEE BELOW Normal [facility] Comment on above: Result Comment: ADA RECOMMENDED LIMIT 4.0 - 6.0 ADA THERAPEUTIC TARGET < 7.0 ACTION SUGGESTED > 7.0 Performed By: #### C BC #### [facility] [address] [address] [address] Stephanie Gibbs Glucose [Mass/Vol] 128 mg/dL Normal [facility] Comment on above: Performed By: #### C BC #### [facility] [address] [address] [address] Stephanie Gibbs HbA1c (Bld) [Mass fraction] 6.1 % Normal 4.5-6.2 [facility] Comment on above: Performed By: #### C BC #### [facility] [address] [address] [address] Stephanie Gibbs TSHon 05-07-2022 TSH 2.391 uIU/mL Normal 0.358-3.740 [facility] Comment on above: Performed By: #### F T4 #### [facility] [address] [address] [address] Stephanie Gibbs Progress Noteson 03-29-2022 [employer] Authentication Interface Message Text .Documentation: Mode: Telephone Patient Home Phone: Patient Patient Cell Preferred phone: [phone] Consent: I confirmed patient understanding of the [...] seen on prior sleep endoscopy Normal [facility] FREE T4on 03-09-2022 Free T4 [Mass/Vol] 1.08 ng/dL Normal 0.76-1.46 [facility] Comment on above: Performed By: #### F T4 #### [facility] Laboratory [address] [address] [address] Stephanie Gibbs LIPID PROFILEon 03-09-2022 CHOL-HDL RATIO NORM SEE BELOW Normal [facility] Comment on above: Result Comment: 3.3 - 4.4 LOW RISK 4.4 - 7.1 AVERAGE RISK 7.1 - 11.0 MODERATE RISK >11.0 HIGH RISK Performed By: #### F T4 #### [facility] [address] [address] [address] Stephanie Gibbs Cholesterol [Mass/Vol] 205 mg/dL Critically high <=200 [facility] Comment on above: Performed By: #### F T4 #### [facility] [address] [address] [address] Stephanie Gibbs Cholesterol in HDL [Mass/Vol] 44 mg/dL Normal 40-60 [facility] Comment on above: Performed By: #### F T4 #### [facility] [address] [address] [address] Stephanie Gibbs Cholesterol in LDL [Mass/Vol] 126.6 mg/dL Normal [facility] Comment on above: Performed By: #### F T4 #### [facility] [address] [address] [address] Stephanie Gibbs Cholesterol.total/Edu sterol in HDL [Mass ratio] 4.7 {ratio} Normal [facility] Comment on above: Performed By: #### F T4 #### [facility] [address] [address] [address] Stephanie Gibbs HDL NORMAL > or = 60 mg/dl - LO W CARDIOVASCULAR RISK <40 mg/dl - HIGH CARDIOVASCULAR RISK Normal [facility] Comment on above: Performed By: #### F T4 #### [facility] [address] [address] [address] Stephanie Gibbs LDL CALC NORMAL SEE BELOW Normal [facility] Comment on above: Result Comment: <100 mg/dl OPTIMAL 100 - 129 mg/dl NEAR OR ABOVE OPTIMAL 130 - 159 mg/dl BORDERLINE HIGH 160 - 189 mg/dl HIGH >190 mg/dl VERY HIGH Performed By: #### F T4 #### [facility] [address] [address] [address] Stephanie Gibbs Triglyceride [Mass/Vol] 172 mg/dL Critically high <=150 [facility] Comment on above: Performed By: #### F T4 #### [facility] [address] [place] [address] Dr. Stephanie Gibbs VLDL CALC 34.4 mg/dL Normal [facility] Comment on above: Performed By: #### F T4 #### [facility] [address] [place] [address] Dr. Stephanie Gibbs PROF 14(COMP METB)on 022 Albumin [Mass/Vol] 3.7 g/dL Normal 3.4-5.0 [facility] Comment on above: Performed By: #### F T4 #### [facility] [address] [place] [address] Dr. Stephanie Gibbs Albumin/Globulin [Mass ratio] 0.8 {ratio} Normal [facility] Comment on above: Performed By: #### F T4 #### [facility] [address] [place] [address] Dr. Stephanie Gibbs ALP [Catalytic activity/Vol] 121 U/L Critically high 46-116 [facility] Comment on above: Performed By: #### F T4 #### [facility] [address] [address] [address] Stephanie Gibbs ALT [Catalytic activity/Vol] 39 U/L Normal 14-59 [facility] Comment on above: Performed By: #### F T4 #### [facility] [address] [place] [address] Dr. Stephanie Gibbs Anion gap [Moles/Vol] 12.6 mmol/L Normal [facility] Comment on above: Performed By: #### F T4 #### [facility] [address] [address] [address] Stephanie Gibbs AST [Catalytic activity/Vol] 21 U/L Normal 15-37 [facility] Comment on above: Performed By: #### F T4 #### [facility] [address] [address] [address] Stephanie Gibbs Bilirubin [Mass/Vol] 0.4 mg/dL Normal 0.2-1.0 [facility] Comment on above: Performed By: #### F T4 #### [facility] [address] [address] [address] Stephanie Gibbs Calcium [Mass/Vol] 9.1 mg/dL Normal 8.5-10.1 [facility] Comment on above: Performed By: #### F T4 #### [facility] [address] [address] [address] Stephanie Gibbs Chloride [Moles/Vol] 102 mmol/L Normal 98-107 [facility] Comment on above: Performed By: #### F T4 #### [facility] [address] [address] [address] Stephanie Gibbs CO2 [Moles/Vol] 28.1 mmol/L Normal 21.0-32.[address] [facility] Comment on above: Performed By: #### F T4 #### [facility] [address] [address] [address] Stepahnie Gibbs Creatinine [Mass/Vol] 0.95 mg/dL Normal 0.55-1.02 [facility] Comment on above: Performed By: #### F T4 #### [facility] [address] [address] [address] Stephanie Gibbs EGFR-AF FAROESE >60 Normal >=60 [facility] Comment on above: Performed By: #### F T4 #### [facility] [address] [address] [address] Stephanie Gibbs EGFR-NON AF FAROESE >60 Normal >=60 [facility] Comment on above: Performed By: #### F T4 #### [facility] [address] [address] [address] Stephanie Gibbs Globulin (S) [Mass/Vol] 4.8 g/dL Normal [facility] Comment on above: Performed By: #### F T4 #### [facility] [address] [place] [address] Dr. Stephanie Gibbs Glucose [Mass/Vol] 106 mg/dL Normal 74-106 [facility] Comment on above: Performed By: #### F T4 #### [facility] [address] [address] [address] Stephanie Gibbs Potassium [Moles/Vol] 3.7 mmol/L Normal 3.5-5.1 [facility] Comment on above: Performed By: #### F T4 #### [facility] [address] [place] [address] Dr. Stephanie Gibbs Protein [Mass/Vol] 8.5 g/dL Critically high 6.4-8.2 [facility] Comment on above: Performed By: #### F T4 #### [facility] [address] [place] [address] Dr. Stephanie Gibbs Sodium [Moles/Vol] 139 mmol/L Normal 136-145 [facility] Comment on above: Performed By: #### F T4 #### [facility] [address] [place] [address] Dr. Stephanie Gibbs Urea nitrogen [Mass/Vol] 14.0 mg/dL Normal 7.0-18.0 [facility] Comment on above: Performed By: #### F T4 #### [facility] [address] [place] [address] Dr. Stephanie Gibbs Urea nitrogen/Creatinine [Mass ratio] 14.7 mg/mg Normal [facility] Comment on above: Performed By: #### F T4 #### [facility] [address] [place] [address] Dr. Stephanie Gibbs TSHon 03-09-2022 TSH 0.446 uIU/mL Normal 0.358-3.740 [facility] Comment on above: Performed By: #### F T4 #### [facility] [address] [address] [address] Stephanie Gibbs Telephone Encounteron 2021 [employer] Interface Message Text Patient calling in [...] to turn it in is 03/19/22. #: [phone] Normal [facility] Care Plan Noteon 02-26-2022 [employer] Authentication Interface Message Text Problem: Routine Care: [...] met Outcome: Adequate for Discharge Normal [facility] [employer] Authentication Interface Message Text Problem: Routine Care: [...] will be met Outcome: Progressing Normal [facility] Anesthesia Attestationon [employer]hentication Interface Message Text Anesthesia Attestation ATTESTATION OF INFORMED CONSENT FOR ANESTHESIA Anesthesia options were discussed with the patient and/or legal member services representative. The risks, benefits and alternatives were reviewed. Questions regarding anesthesia were answered. Patient and/or legal member services representative knows such anesthetics and procedures may be performed by Resident physicians, Certified Anesthesiologist Assistants, or Certified Nurse Anesthetists under the supervision of a physician. The patient /or the patient's legal member services representative agree with the plan for anesthesia. Normal [facility] Anesthesia Postprocedure Lauren luationon 02-25-2022 [employer] Interface Message Text Anesthesia Postoperative Assessment: [...] ANESTHESIA COMPLICATIONS: No complications documented. 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 Normal [facility] [employer] Authentication Interface Message Text Patient taken to [...] Maite Youssef MD CAA: Mariaa Meneses CAA SCHOOL CROSSING GUARD SUPERVISOR: Cari Hurtado APRN-KOBI Manager Production: Carol Barrera MD Anesthesia Student: Prema Norris [...] Advanced Airway: ETT, Oral #6 (Removed) 02/25/22 0907 Pre-Oxygenation/ Induction: Mask Rapid Sequence Induction?: Mask [...] report was received. PADMINI Chiang Normal [facility] Blood Attestationon 02-26-20 [employer] Interface Message Text Blood Attestation ATTESTATION OF INFORMED CONSENT FOR BLOOD The transfusion of blood and/or blood components were discussed with the patient and/or legal member services representative. The risks, benefits and alternatives were reviewed. Questions regarding blood transfusions were answered. The patient /or the patient's legal member services representative agree with the plan for transfusion of blood and/or blood components. Normal [facility] Brief Operative Noteon 02-25 [employer]hentication Interface Message Text Brief Operative Note MAIN OR 11 Isabelle Hewitt 46 year old female Surgical Contact Serial Number: [id number] Preoperative Diagnosis: DIONNE (obstructive sleep apnea) [G47.33] Postoperative Diagnosis: * DIONNE (obstructive sleep apnea) [G47.33] Procedures: Surgical CPTs Procedures * PALATOPHARYNGOPLASTY No data filed Surgeon(s): Surgeon(s): Yi Moreno MD Staff: Scrub: Wiley Álvarez Nurse: Mariaa Briseno; Dulce Allred; Babs Wells RN Student Teacher: Yi Piña MD; Unruly Biggs MD Anesthesia: Consult Anesthesiologist: Maite Youssef MD CAA: Mariaa Meneses CAA SCHOOL CROSSING GUARD SUPERVISOR: Cari Hurtado APRN-KOBI Manager Production: Carol Barrera MD Anesthesia Student: Prema Norris [...] Moreno MD 02/25/2022 10:40 AM Normal [facility] Care Plan Noteon 02-25-2022 [employer] Interface Message Text Problem: Routine Care: [...] will be met Outcome: Progressing Normal [facility] OP Noteon 02-25-2022 [employer] Authentication Interface Message Text [id number] Isabelle Hewitt 1975 @[email or web address]@ @[email or web address]@ [id number] Preoperative diagnosis: 1. Obstructive sleep apnea 2. [...] to recovery in stable condition. Normal [facility] Progress Noteson 02-25-2022 [employer]hentication Interface Message Text No excessive swallowing. [...] Positive Positive [facility] Telephone Encounteron 2021 [employer] Authentication Interface Message Text PSE received pre-op COVID test results - NOT DETECTED on 02/23/2022. Document scanned into [employer]. Normal [facility] Covid-19 PCR (CVDTBH)on SARS-CoV-2 (COVID-19) RNA JOHNNIE+probe Ql (Unsp spec) Not detected Normal NOT DETECTED [facility] Comment on above: Result Comment: [...] for this test is supported by the Executive Candidate Developer of Health and Human Service's declaration that [...] used). Performed By: #### C BC #### [facility] [address] [address] [address] Stephanie Gibbs XR ABDOMEN (KUB) (SINGLE [...] pattern, large colonic fecal Stable left nephrolithiasis [employer] Phone: Radiology Study observation (narrative) [employer] Phone: XR ABDOMEN (KUB) (SINGLE AP VIEW)Ordered By: Adali Gill on 02-19-2022 [employer] Phone: EKG 12 LEAD - PERFORMon 01-21 Diagnosis Normal sinus rhythm Nonspecific T wave abnormality Abnormal ECG No previous ECGs available Confirmed by OLGA MONTES ([id number]) on 02/17/2022 9:51:58 PM [facility] P wave [facility] by EKG 72 BPM [facility] P wave axis 9 degrees [facility] P-R Interval 154 ms [facility] Q-T interval 416 ms [facility] Q-T interval corrected 455 ms [facility] QRS axis 10 degrees [facility] [...] PSE contact information provided, order faxed to [facility] per patient request. Normal [facility] PSE Appt H AND Neftali 2 [employer] Authentication Interface Message Text Patient was identified by name and date of . Quinton Manzo Bill of rights provided to patient Normal [facility] Patient Instructionson 02-16 [employer] Interface Message Text On the morning [...] for pain Please hold all Vitamin E, [place] 3, fish oil and herbal supplements for 1 week prior to surgery Normal [facility] Telephone Encounteron 2021 [employer]hentication Interface Message Text Arrangements to be made for pre-op COVID testing per ENT request. Normal [facility] FLUORO FOR SURGICAL PROCEDUR ESon 01-05-2022 Radiology exam is complete. No Radiologist dictation. Please follow up with ordering provider. [facility] RIS CONSOLIDATED , Urineon 2 Beta HCG ( test) Ql (U) Negative NEGATIVE [employer] Comment on above: Specimens with hCG l evels near the threshold of the test (25 mIU/mL) may give a negative or indeterminate result. In such cases, another test should be performed with a new specimen in 48-72 hours. If early is suspected clinically in this setting, correlation with quantitative serum b-hCG level is suggested. [employer] has confirmed the use of plasma for this test. This has not been cleared or approved by the U.S. Food and Drug Administration. The FDA has determined that such clearance is not necessary. [employer] Basic Metabolic Panelon 05 Anion gap [Moles/Vol] 8 mmol/L Low 9 - 17 mmol/L [employer] Calcium [Mass/Vol] 8.9 mg/dL 8.6 - 10. 4 mg/dL [facility] Chloride [Moles/Vol] 101 mmol/L 98 - 10 7 mmol/L [facility] CO2 [Moles/Vol] 29 mmol/L 20 - 31 mmol/L [facility] Creatinine [Mass/Vol] 0.87 mg/dL 0.50 - 0.90 mg/dL [facility] GFR >60 >60 mL/min [facility] GFR Non- >60 >60 mL/min [facility] Glucose [Mass/Vol] 98 mg/dL 70 - 99 mg/dL [facility] Interpretation and review of laboratory results Abnormal [facility] Potassium [Moles/Vol] 4.3 mmol/L 3.7 - 5.3 mmol/L [facility] Sodium [Moles/Vol] 138 mmol/L 135 - 144 mmol/L [facility] Urea nitrogen (BldV) [Mass/Vol] 8 mg/dL 6 - 20 mg/dL [facility] Urea nitrogen/Creatinine (Bld) [Mass ratio] 9 [facility] CBC with Auto Differentialon 12-30-2021 Absolute Eos # 0.38 [facility] th Absolute Immature Granulocyte 0.06 [facility] Absolute Lymph # 2.56 [facility] alth Absolute Roberts # 0.69 [facility] lth Basophils (Bld) [#/Vol] 0.09 10*3/uL [facility] Basophils/100 WBC (Bld) 1 % 0 - 2 % [facility] Eosinophils/100 WBC (Bld) 4 % 1 - 4 % [facility] Hematocrit (Bld) [Volume fraction] 38.7 % 36.3 - 47.1 % [facility] Hemoglobin.gastrointest inal spec 1 Ql (Stl) 13.0 g/dL 11.9 - 15.1 g/dL [facility] Immature granulocytes/100 WBC (Bld) 1 % High 0 [facility] Interpretation and review of laboratory results Abnormal [facility] Lymphocytes/100 WBC (Bld) 27 % 24 - 43 % [facility] MCH (RBC) [Entitic mass] 33.1 pg 25.2 - 33.5 pg [facility] MCHC (RBC) [Mass/Vol] 33.6 g/dL 28.4 - 34.8 g/dL [facility] MCV (RBC) [Entitic vol] 98.5 fL 82.6 - 102.9 fL [facility] Monocytes/100 WBC (Bld) 7 % 3 - 12 % M [facility] NRBC Automated 0.0 0.0 per 100 WBC [facility] Platelet distribution width (Bld) [Ratio] 12.9 % 11.8 - 14.4 % [facility] Platelet mean volume (Bld) [Entitic vol] 9.8 fL 8.1 - 13.5 fL [facility] Platelets (Bld) [#/Vol] 284 10*3/uL [facility] RBC (Bld) [#/Vol] 3.93 10*6/uL Low 3.95 - 5.1 1 m/uL [facility] Segmented neutrophils/100 WBC (Bld) 60 % 36 - 65 % [facility] Segs Absolute 5.62 [facility] W[facility] (Bld) [#/Vol] 9.4 10*3/uL [facility] Laboratory - Chemistry and C hemistry - challengeon 12-30-2021 GFR/1.73 sq M.predicted MDRD (S/P/Bld) [Vol rate/Area] [facility] Comment on above: Average GFR for 40-4 9 years old: 99 mL/min/1.73sq m Chronic Kidney Disease: <60 mL/min/1.73sq m Kidney failure: <15 mL/min/1.73sq m eGFR calculated using average adult body mass. Additional eGFR calculator available at: http://www.[employer]/multiple_crcl_2012.htm Stage 1: Some kidney damage normal GFR Stage 2: Mild kidney damage GFR 60-89 Stage 3: Moderate kidney damage GFR 30-59 Stage 4: Severe kidney damage GFR 15-29 Stage 5: Severe kidney damage GFR <15 ESRD - chronic treatment by dialysis or transplant XR ABDOMEN (KUB) (SINGLE AP VIEW)on 12-22-2021 Nonobstructed bowel-gas pattern. No definite renal or ureteral stones. [facility] RIS CONSOLIDATED EXAMINATION: ONE SUPINE XRAY VIEW(S) OF THE ABDOMEN 12/22/2021 5:15 pm COMPARISON: October 13, 2021 HISTORY: ORDERING SYSTEM PROVIDED HISTORY: Kidney stones TECHNOLOGIST PROVIDED HISTORY: kidney stones FINDINGS: Bowel gas pattern nonobstructed. Renal shadows partially obscured by bowel gas and fecal debris. No definite renal or ureteral stones. No acute osseous abnormality. PN RIS CONSOLIDATED Perry Neely DO - 12/22/2021 [...] pattern. No definite renal or ureteral stones. [facility] Phone: Radiology Study observation (narrative) [employer] Phone: XR ABDOMEN (KUB) (SINGLE AP VIEW)Ordered By: Perry Neely on 12-22-2021 [facility] Phone: Office Visit (Cardiology)on 12-02-2021 Follow-up visit [...] Recorded: 02Dec2021 03:38PM Heart Rate72, R Radial [id number] Height5 ft 2 in Sjtedi593 lb BMI Recaauouxt99.47 kg/m2 BSA Calculated1.84 Tobacco Useb) No PHQ-2 [...] Dec 02 2021 5:03PM EST (Author) Normal [place] Tobacco Screening.on Adult depression screening assessment No [facility] y 250 DO Work Phone: Tobacco use status [facility] b) No [facility] [place] [employer] y 250 DO Work Phone: Office Visit [...] IO EKG Electrocardiogram- 12 Lead; Status:Complete; Done: [id number] Class 1 obesity with body mass index (BMI) of 33.0 to 33.9 in adult Healthy Weight Tips; Status:Complete - Retrospective Authorization; Done: [id number] Health Maintenance Depression Follow-up Visit Outpatient Follow-up Status: Complete - Retrospective Authorization Done: [id number] SocHx: Former smoker Tobacco Use Screening; Status:Complete; Done: [id number] Tobacco Use Screening; Status:Complete; Done: [id number] Unlinked Stop: Furosemide 40 MG Oral Tablet [...] 1 t (more content not included)... Normal [place] Tobacco Screening.on 022 Adult depression screening assessment Yes [facility] y 250 DO Work Phone: Tobacco use status [facility] b) No [facility] [facility] 250 DO Work Phone: Tobacco Screening. 1-Several days [facility] [facility] 250 DO Work Phone: Tobacco Screening. 3-Nearly every day [facility] [facility] 250 DO Work Phone: Tobacco Screening. 0-Not at all [facility] [facility] 250 DO Work Phone: Tobacco Screening. 2-More than half the days [facility] [facility] 250 DO Work Phone: Vital Signs Date Time Vital Sign Value Performing Clinician Facility 04-23-2025 15:23-0400 Body height 157.48 cm Gena Kirby Work Phone: [facility] 04-23-2025 15:23-0400 Body mass index (BMI) [Ratio] 21 kg/m2 Gena Kirby Work Phone: [facility] 04-23-2025 15:23-040 Body weight 52.16 kg Gena Kirby Work Phone: [facility] 04-17-2025 14:55-0400 Body height 157.5 cm Rhina Amor MD Work Phone: [facility] 04-17-2025 14:55-0400 Body mass index (BMI) [Ratio] 21.03 kg/m2 Rhina Amor MD Work Phone: [facility] 04-17-2025 14:55-0400 Body weight 52.16 kg Rhina Amor MD Work Phone: [facility] 04-17-2025 14:55-0400 Heart rate 108 /min Rhina Amor MD Work Phone: [facility] 04-17-2025 14:55-0400 Respiratory rate 20 /min Rhina Amor MD Work Phone: [facility] 04-17-2025 14:55-0400 SaO2% (BldA) [Mass fraction] 96 % Rhina Amor MD Work Phone: [facility] 02-13-2025 13:44-0400 Body mass index (BMI) [Ratio] 22.35 kg/m2 Gena Kirby NP Work Phone: [facility] 02-13-2025 13:44-0400 Body temperature 97.81 [degF] Gena Maldonadotimothyz DENTAL RECEPTIONIST Work Phone: [facility] 02-13-2025 13:44-0400 Body weight 55.43 kg Genalonnie Mcdonnellz DENTAL RECEPTIONIST Work Phone: [facility] 02-13-2025 13:44-0400 Diastolic blood pressure 70 mm[Hg] Gena Janiceholz DENTAL RECEPTIONIST Work Phone: [facility] 02-13-2025 13:44-0400 Heart rate 67 /min Gena Janiceholz DENTAL RECEPTIONIST Work Phone: [facility] 02-13-2025 13:44-0400 Respiratory rate 18 /min Gena Janiceholz DENTAL RECEPTIONIST Work Phone: [facility] 02-13-2025 13:44-0400 SaO2% (BldA) [Mass fraction] 98 % Gena Janicefreddyz DENTAL RECEPTIONIST Work Phone: [facility] 02-13-2025 13:44-0400 Systolic blood pressure 110 mm[Hg] Gena Janicefreddyz DENTAL RECEPTIONIST Work Phone: [facility] 01-22-2025 14:06-0400 Body height 157.5 cm Mark Olmedo PA Work Phone: [facility] 01-22-2025 14:06-0400 Body mass index (BMI) [Ratio] 24.14 kg/m2 Mark Olmedo PA Work Phone: [facility] 01-22-2025 14:06-0400 Body weight 59.88 kg Mark Olmedo PA Work Phone: [facility] 01-07-2025 16:04-0400 Body mass index (BMI) [Ratio] 23.85 kg/m2 Gena Keciaz DENTAL RECEPTIONIST Work Phone: [facility] 01-07-2025 16:04-0400 Body temperature 98.49 [degF] Gena Keciaz DENTAL RECEPTIONIST Work Phone: [facility] 01-07-2025 16:04-0400 Body weight 59.15 kg eGna Kirby DENTAL RECEPTIONIST Work Phone: [facility] 01-07-2025 16:04-0400 Diastolic blood pressure 82 mm[Hg] Gena Kirby DENTAL RECEPTIONIST Work Phone: [facility] 01-07-2025 16:04-0400 Heart rate 79 /min Gena Kirby DENTAL RECEPTIONIST Work Phone: [facility] 01-07-2025 16:04-0400 Respiratory rate 18 /min Gena Kirby DENTAL RECEPTIONIST Work Phone: [facility] 01-07-2025 16:04-0400 SaO2% (BldA) [Mass fraction] 95 % Gena Kirby DENTAL RECEPTIONIST Work Phone: [facility] 01-07-2025 16:04-0400 Systolic blood pressure 124 mm[Hg] Gena Kirby DENTAL RECEPTIONIST Work Phone: [facility] 12-25-2024 14:36-0400 Body mass index (BMI) [Ratio] 24.53 kg/m2 Oswald Len DO Work Phone: [facility] 12-25-2024 14:36-0400 Body weight 60.84 kg Oswald Len DO Work Phone: [facility] 12-25-2024 14:36-0400 Diastolic blood pressure 80 mm[Hg] Oswald Len DO Work Phone: [facility] 12-25-2024 14:36-0400 Systolic blood pressure 124 mm[Hg] Oswald Len DO Work Phone: [facility] 12-11-2024 11:09-0400 Body mass index (BMI) [Ratio] 24.69 kg/m2 Oswald Len DO Work Phone: [facility] 12-11-2024 11:09-0400 Body weight 61.24 kg Oswald Len DO Work Phone: [facility] 12-11-2024 11:09-0400 Diastolic blood pressure 72 mm[Hg] Oswald Len DO Work Phone: [facility] 12-11-2024 11:09-0400 Systolic blood pressure 120 mm[Hg] Oswald Len DO Work Phone: [facility] 11-22-2024 15:43-0400 Body mass index (BMI) [Ratio] 25.51 kg/m2 Aurea Marc PA Work Phone: [facility] 11-22-2024 15:43-0400 Body weight 63.28 kg Aurea Marc PA Work Phone: [facility] 11-22-2024 15:43-0400 Diastolic blood pressure 90 mm[Hg] Aurea Marc PA Work Phone: [facility] 11-22-2024 15:43-0400 Systolic blood pressure 120 mm[Hg] Aurea Marc PA Work Phone: [facility] 11-20-2024 14:30-0400 Body mass index (BMI) [Ratio] 25.79 kg/m2 Gena Kofi DENTAL RECEPTIONIST Work Phone: [facility] 11-20-2024 14:30-0400 Body temperature 97.81 [degF] Gena Kofi DENTAL RECEPTIONIST Work Phone: [facility] 11-20-2024 14:30-0400 Body weight 63.96 kg Gena Kofi DENTAL RECEPTIONIST Work Phone: [facility] 11-20-2024 14:30-0400 Diastolic blood pressure 76 mm[Hg] Gena Keciaz DENTAL RECEPTIONIST Work Phone: [facility] 11-20-2024 14:30-0400 Heart rate 76 /min Gena Keciaz DENTAL RECEPTIONIST Work Phone: [facility] 11-20-2024 14:30-0400 Respiratory rate 18 /min Gena Keciaz DENTAL RECEPTIONIST Work Phone: [facility] 11-20-2024 14:30-0400 SaO2% (BldA) [Mass fraction] 99 % Gena Maldonadokadie DENTAL RECEPTIONIST Work Phone: [facility] 11-20-2024 14:30-0400 Systolic blood pressure 118 mm[Hg] Genalonnie Maldonadotimothyz DENTAL RECEPTIONIST Work Phone: [facility] 10-23-2024 15:20-0500 Body height 157.48 cm [facility] 10-23-2024 15:20-0500 Body mass index (BMI) [Ratio] 25.6 kg/m2 [facility] 10-23-2024 15:20-0500 Body weight 63.5 kg [facility] 10-09-2024 15:42-0500 Body mass index (BMI) [Ratio] 26.59 kg/m2 Genalonnie Maldonadokadie DENTAL RECEPTIONIST Work Phone: [facility] 10-09-2024 15:42-0500 Body temperature 99.19 [degF] Gena Kofi DENTAL RECEPTIONIST Work Phone: [facility] 10-09-2024 15:42-0500 Body weight 65.95 kg Genalonnie Maldonadotimothyz DENTAL RECEPTIONIST Work Phone: [facility] 10-09-2024 15:42-0500 Diastolic blood pressure 80 mm[Hg] Genalonnie Maldonadotimothyz DENTAL RECEPTIONIST Work Phone: [facility] 10-09-2024 15:42-0500 Heart rate 69 /min Gena Keciaz DENTAL RECEPTIONIST Work Phone: [facility] 10-09-2024 15:42-0500 Respiratory rate 18 /min Gena Keciaz DENTAL RECEPTIONIST Work Phone: [facility] 10-09-2024 15:42-0500 SaO2% (BldA) [Mass fraction] 99 % Gena Keciaz DENTAL RECEPTIONIST Work Phone: [facility] 10-09-2024 15:42-0500 Systolic blood pressure 110 mm[Hg] Gena Keciaz DENTAL RECEPTIONIST Work Phone: [facility] 09-25-2024 08:57-0500 Body mass index (BMI) [Ratio] 25.64 kg/m2 Gena Camachodia DENTAL RECEPTIONIST Work Phone: [facility] 09-25-2024 08:57-0500 Body temperature 98.8 [degF] Gena Mcdonnellarmando DENTAL RECEPTIONIST Work Phone: [facility] 09-25-2024 08:57-0500 Body weight 63.59 kg Gena Camachodia DENTAL RECEPTIONIST Work Phone: [facility] 09-25-2024 08:57-0500 Diastolic blood pressure 78 mm[Hg] Gena Maldonadokadie DENTAL RECEPTIONIST Work Phone: [facility] 09-25-2024 08:57-0500 Heart rate 73 /min Gena Camachodia DENTAL RECEPTIONIST Work Phone: [facility] 09-25-2024 08:57-0500 Respiratory rate 18 /min Gena Camachodia DENTAL RECEPTIONIST Work Phone: [facility] 09-25-2024 08:57-0500 SaO2% (BldA) [Mass fraction] 94 % Gena Camachodia DENTAL RECEPTIONIST Work Phone: [facility] 09-25-2024 08:57-0500 Systolic blood pressure 108 mm[Hg] Gena Mcdonnellarmando DENTAL RECEPTIONIST Work Phone: [facility] 09-10-2024 15:14-0500 Body height 157.48 cm [facility] 09-10-2024 15:14-0500 Body mass index (BMI) [Ratio] 25.6 kg/m2 [facility] 09-10-2024 15:14-0500 Body weight 63.5 kg [facility] 09-10-2024 15:14-0500 Diastolic blood pressure 94 mm[Hg] [facility] 09-10-2024 15:14-0500 Heart rate 79 /min [facility] 09-10-2024 15:14-0500 Systolic blood pressure 123 mm[Hg] [facility] 09-04-2024 10:02-0500 Body height 157.48 cm [facility] 09-04-2024 10:02-0500 Body mass index (BMI) [Ratio] 26.3 kg/m2 [facility] 09-04-2024 10:02-0500 Body weight 65.31 kg [facility] 09-04-2024 10:02-0500 Diastolic blood pressure 100 mm[Hg] [facility] 09-04-2024 10:02-0500 Heart rate 75 /min [facility] 09-04-2024 10:02-0500 SaO2% (BldA) [Mass fraction] 98 % [facility] 09-04-2024 10:02-0500 Systolic blood pressure 145 mm[Hg] [facility] 08-06-2024 16:13-0500 Body mass index (BMI) [Ratio] 26.3 kg/m2 Aurea GAVIRIA Work Phone: [facility] 08-06-2024 16:13-0500 Body weight 65.23 kg Aurea GAVIRIA Work Phone: [facility] 08-06-2024 16:13-0500 Diastolic blood pressure 80 mm[Hg] Aurea GAVIRIA Work Phone: [facility] 08-06-2024 16:13-0500 Systolic blood pressure 120 mm[Hg] Aurea GAVIRIA Work Phone: [facility] 07-31-2024 15:03-0500 Body height 157.48 cm [facility] 07-31-2024 15:03-0500 Body mass index (BMI) [Ratio] 27.1 kg/m2 [facility] 07-31-2024 15:03-0500 Body weight 67.13 kg [facility] 07-31-2024 15:03-0500 Diastolic blood pressure 93 mm[Hg] [facility] 07-31-2024 15:03-0500 Heart rate 92 /min [facility] 07-31-2024 15:03-0500 SaO2% (BldA) [Mass fraction] 97 % [facility] 07-31-2024 15:03-0500 Systolic blood pressure 131 mm[Hg] [facility] 07-13-2024 14:04-0500 Body height 157.48 cm [facility] 07-13-2024 14:04-0500 Body mass index (BMI) [Ratio] 27.1 kg/m2 [facility] 07-13-2024 14:04-0500 Body weight 67.13 kg [facility] 06-19-2024 15:37-0400 Body height 157.5 cm Gena Joeltimothyz DENTAL RECEPTIONIST Work Phone: [facility] 06-19-2024 15:37-0400 Body mass index (BMI) [Ratio] 26.26 kg/m2 Gena Aichholz DENTAL RECEPTIONIST Work Phone: [facility] 06-19-2024 15:37-0400 Body temperature 98.6 [degF] Gena Joelhholz DENTAL RECEPTIONIST Work Phone: [facility] 06-19-2024 15:37-0400 Body weight 65.14 kg Gena Aichholz DENTAL RECEPTIONIST Work Phone: [facility] 06-19-2024 15:37-0400 Diastolic blood pressure 82 mm[Hg] Gena Aichholz DENTAL RECEPTIONIST Work Phone: [facility] 06-19-2024 15:37-0400 Heart rate 63 /min Gena Aichholz DENTAL RECEPTIONIST Work Phone: [facility] 06-19-2024 15:37-0400 Respiratory rate 18 /min Gena Aichholz DENTAL RECEPTIONIST Work Phone: [facility] 06-19-2024 15:37-0400 SaO2% (BldA) [Mass fraction] 97 % Gena Aichholz DENTAL RECEPTIONIST Work Phone: [facility] 06-19-2024 15:37-0400 Systolic blood pressure 110 mm[Hg] Gena Aichholz DENTAL RECEPTIONIST Work Phone: [facility] 06-11-2024 15:44-0400 Body height 157.48 cm Gena Aichholz Work Phone: [facility] 06-11-2024 15:44-0400 Body mass index (BMI) [Ratio] 26.2 kg/m2 Gena Aichholz Work Phone: [facility] 06-11-2024 15:44-0400 Body weight 64.86 kg Gena Aichholz Work Phone: [facility] 05-16-2024 15:43-0400 Body height 157.48 cm Gena Aichholz Work Phone: [facility] 05-16-2024 15:43-0400 Body mass index (BMI) [Ratio] 23.8 kg/m2 Gena Aichholz Work Phone: [facility] 05-16-2024 15:43-0400 Body weight 59 kg Gena Aichholz Work Phone: [facility] 05-02-2024 15:46-0400 Body height 157.5 cm Gena Aichholz DENTAL RECEPTIONIST Work Phone: [facility] 05-02-2024 15:46-0400 Body mass index (BMI) [Ratio] 26.37 kg/m2 Gena Aichholz DENTAL RECEPTIONIST Work Phone: [facility] 05-02-2024 15:46-0400 Body temperature 98.49 [degF] Gena Aichholz DENTAL RECEPTIONIST Work Phone: [facility] 05-02-2024 15:46-0400 Body weight 65.41 kg Gena Aichholz DENTAL RECEPTIONIST Work Phone: [facility] 05-02-2024 15:46-0400 Diastolic blood pressure 88 mm[Hg] Gena Aichholz DENTAL RECEPTIONIST Work Phone: [facility] 05-02-2024 15:46-0400 Heart rate 79 /min Gena Aichholz DENTAL RECEPTIONIST Work Phone: [facility] 05-02-2024 15:46-0400 Respiratory rate 19 /min Gena Aichholz DENTAL RECEPTIONIST Work Phone: [facility] 05-02-2024 15:46-0400 SaO2% (BldA) [Mass fraction] 94 % Gena Joelhholz DENTAL RECEPTIONIST Work Phone: [facility] 05-02-2024 15:46-0400 Systolic blood pressure 110 mm[Hg] Gena Aichholz DENTAL RECEPTIONIST Work Phone: [facility] 04-17-2024 11:44-0400 Body mass index (BMI) [Ratio] 27.76 kg/m2 Gena Aichholz DENTAL RECEPTIONIST Work Phone: [facility] 04-17-2024 11:44-0400 Body temperature 98.01 [degF] Gena Joelhholz DENTAL RECEPTIONIST Work Phone: [facility] 04-17-2024 11:44-0400 Body weight 68.86 kg Gena Joelhholz DENTAL RECEPTIONIST Work Phone: [facility] 04-17-2024 11:44-0400 Diastolic blood pressure 80 mm[Hg] Gena Aichholz DENTAL RECEPTIONIST Work Phone: [facility] 04-17-2024 11:44-0400 Heart rate 80 /min Gena Aichholz DENTAL RECEPTIONIST Work Phone: [facility] 04-17-2024 11:44-0400 Respiratory rate 18 /min Gena Aichholz DENTAL RECEPTIONIST Work Phone: [facility] 04-17-2024 11:44-0400 SaO2% (BldA) [Mass fraction] 94 % Gena Aichholz DENTAL RECEPTIONIST Work Phone: [facility] 04-17-2024 11:44-0400 Systolic blood pressure 110 mm[Hg] Gena Aichholz DENTAL RECEPTIONIST Work Phone: [facility] 04-16-2024 18:26-0400 Body height 157.48 cm [facility] 04-16-2024 18:26-0400 Body mass index (BMI) [Ratio] 23.9 kg/m2 [facility] 04-16-2024 18:26-0400 Body temperature 98.4 [degF] [facility] 04-16-2024 18:26-0400 Body weight 59.42 kg [facility] 04-16-2024 18:26-0400 Diastolic blood pressure 86 mm[Hg] [facility] 04-16-2024 18:26-0400 Heart rate 89 /min [facility] 04-16-2024 18:26-0400 Respiratory rate 18 /min [facility] 04-16-2024 18:26-0400 SaO2% (BldA) [Mass fraction] 96 % [facility] 04-16-2024 18:26-0400 Systolic blood pressure 127 mm[Hg] [facility] 03-13-2024 15:43-0400 Body height 157.48 cm Gena Aichholz Work Phone: [facility] 03-13-2024 15:43-0400 Body mass index (BMI) [Ratio] 27.3 kg/m2 Gena Aichholz Work Phone: [facility] 03-13-2024 15:43-0400 Body weight 68 kg Gena Aichholz Work Phone: [facility] 12-12-2023 15:54-0400 Body height 157.48 cm Gena Aichholz Work Phone: [facility] 12-12-2023 15:54-0400 Body mass index (BMI) [Ratio] 27.4 kg/m2 Gena Aichholz Work Phone: [facility] 12-12-2023 15:54-0400 Body weight 68.03 kg Gena Aichholz Work Phone: [facility] 12-12-2023 15:54-0400 Diastolic blood pressure 97 mm[Hg] Gena Aichholz Work Phone: [facility] 12-12-2023 15:54-0400 Heart rate 103 /min Gena Aichholz Work Phone: [facility] 12-12-2023 15:54-0400 Systolic blood pressure 137 mm[Hg] Gena Aichholz Work Phone: [facility] 11-02-2023 15:32-0400 Body height 157.48 cm Gena Aichholz Work Phone: [facility] 11-02-2023 15:32-0400 Body mass index (BMI) [Ratio] 27.4 kg/m2 Gena Aichholz Work Phone: [facility] 11-02-2023 15:32-0400 Body weight 68.03 kg Gena Aichholz Work Phone: [facility] 11-02-2023 15:32-0400 Heart rate 67 /min Gena Aichholz Work Phone: [facility] 10-14-2023 12:37-0500 Body height 157.48 cm Gena Aichholz Work Phone: [facility] 10-14-2023 12:37-0500 Body mass index (BMI) [Ratio] 28 kg/m2 Gena Aichholz Work Phone: [facility] 10-14-2023 12:37-0500 Body temperature 99.4 [degF] Gena Aichholz Work Phone: [facility] 10-14-2023 12:37-0500 Body weight 69.62 kg Gena Aichholz Work Phone: [facility] 10-14-2023 12:37-0500 Diastolic blood pressure 94 mm[Hg] Gena Aichholz Work Phone: [facility] 10-14-2023 12:37-0500 Heart rate 81 /min Gena Aichholz Work Phone: [facility] 10-14-2023 12:37-0500 Respiratory rate 16 /min Gena Aichholz Work Phone: [facility] 10-14-2023 12:37-0500 SaO2% (BldA) [Mass fraction] 97 % Gena Aichholz Work Phone: [facility] 10-14-2023 12:37-0500 Systolic blood pressure 131 mm[Hg] Gena Aichholz Work Phone: [facility] 09-20-2023 15:30-0500 Body height 157.48 cm Wiley Mcmanus Other [facility] 09-20-2023 15:30-0500 Body mass index (BMI) [Ratio] 30.18 kg/m2 Wiley Mcmanus Other [facility] [employer] Other 09-20-2023 15:30-0500 Body weight 74.84 kg Wiley Mcmanus Other [facility] 08-08-2023 13:25-0500 Diastolic blood pressure 89 mm[Hg] Gena Aichholz Work Phone: [facility] 08-08-2023 13:25-0500 Heart rate 75 /min Gena Aichholz Work Phone: [facility] 08-08-2023 13:25-0500 Respiratory rate 16 /min Gena Aichholz Work Phone: [facility] 08-08-2023 13:25-0500 SaO2% (BldA) [Mass fraction] 99 % Gena Aichholz Work Phone: [facility] 08-08-2023 13:25-0500 Systolic blood pressure 117 mm[Hg] Gena Aichholz Work Phone: [facility] 08-08-2023 11:41-0500 Body height 157.48 cm Gena Aichholz Work Phone: [facility] 08-08-2023 11:41-0500 Body weight 77.11 kg Gena Kirby Work Phone: [facility] 06-30-2023 09:20-0500 Body height 157.48 cm Majo Lyman Other [employer] Other 06-30-2023 09:20-0500 Body mass index (BMI) [Ratio] 30.18 kg/m2 Majo Scovanner Other [employer] Other 06-30-2023 09:20-0500 Body weight 74.84 kg Majo Scmeenaner Other [employer] Other 06-30-2023 09:20-0500 Diastolic blood pressure 87 mm[Hg] Majo Scovanner Other [employer] Other 06-30-2023 09:20-0500 Systolic blood pressure 115 mm[Hg] Majo Scovanner Other [employer] Other 06-07-2023 12:30-0400 Body height 157.48 cm Louise Johnson Other [employer] Other 06-07-2023 12:30-0400 Body mass index (BMI) [Ratio] 31.05 kg/m2 Louise Alex Other [employer] Other 06-07-2023 12:30-0400 Body temperature 98 [degF] Louise Johnson Other [employer] Other 06-07-2023 12:30-0400 Body weight 77.02 kg Louise Johnson Other [employer] Other 06-07-2023 12:30-0400 Diastolic blood pressure 78 mm[Hg] Louise Johnson Other [employer] Other 06-07-2023 12:30-0400 Respiratory rate 18 /min Louise Johnson Other [employer] Other 06-07-2023 12:30-0400 SaO2% (BldA) [Mass fraction] 98 % Louise Johnson Other [employer] Other 06-07-2023 12:30-0400 Systolic blood pressure 117 mm[Hg] Louise Johnson Other [employer] Other 07-17-2022 04:28-0500 Body temperature 98.29 [degF] Rikki Rodrigues DMD, MD Work Phone: [employer] 07-17-2022 04:28-0500 Diastolic blood pressure 80 mm[Hg] Rikki Rodrigues DMD, MD Work Phone: [facility] 07-17-2022 04:28-0500 Heart rate 54 /min Rikki Rodrigues DMD, MD Work Phone: [facility] 07-17-2022 04:28-0500 Respiratory rate 18 /min Rikki Rodrigues DMD, MD Work Phone: [facility] 07-17-2022 04:28-0500 SaO2% (BldA) [Mass fraction] 96 % Rikki Rodrigues DMD, MD Work Phone: [facility] 07-17-2022 04:28-0500 Systolic blood pressure 109 mm[Hg] Rikki Rodrigues DMD, MD Work Phone: [employer] 07-14-2022 15:17-0500 Body mass index (BMI) [Ratio] 36.29 kg/m2 Rikki Rodrigues DMD, MD Work Phone: [employer] 07-14-2022 15:17-0500 Body weight 90 kg Rikki Rodrigues DMD, MD [facility] 07-14-2022 14:55-0500 Body height 157.5 cm Rikki Rodrigues DMD, MD [facility] 07-14-2022 09:01-0500 SaO2% (BldA) [Mass fraction] 98.8 % Rikki Rodrigues DMD, MD Work Phone: [employer] 07-08-2022 13:59-0500 Body height 157.5 cm Gena Holbrook CO DIRECTOR-MS SQL SERVER DEVELOPER Work Phone[facility] 07-08-2022 13:59-0500 Body mass index (BMI) [Ratio] 35.96 kg/m2 Gena Yusef CO DIRECTOR-MS SQL SERVER DEVELOPER [facility] 07-08-2022 13:59-0500 Body temperature 97.9 [degF] Gena Yusef CO DIRECTOR-MS SQL SERVER DEVELOPER Work Phone: [employer] 07-08-2022 13:59-0500 Body weight 89.18 kg Gena Yusef CO DIRECTOR-MS SQL SERVER DEVELOPER [facility] 07-08-2022 13:59-0500 Diastolic blood pressure 80 mm[Hg] Gena Yusef CO DIRECTOR-MS SQL SERVER DEVELOPER [facility] 07-08-2022 13:59-0500 Heart rate 98 /min Gena Yusef CO DIRECTOR-MS SQL SERVER DEVELOPER Work Phone: [facility] 07-08-2022 13:59-0500 Respiratory rate 14 /min Gena Yusef CO DIRECTOR-MS SQL SERVER DEVELOPER [facility] 07-08-2022 13:59-0500 SaO2% (BldA) [Mass fraction] 98 % Gena Yusef CO DIRECTOR-MS SQL SERVER DEVELOPER [facility] 07-08-2022 13:59-0500 Systolic blood pressure 122 mm[Hg] Gena Holbrook ARTURO [facility] 06-18-2022 15:09-0400 Diastolic blood pressure 89 mm[Hg] Rikki Rodrigues DMD, MD Work Phone[facility] 06-18-2022 15:09-0400 Heart rate 117 /min Rikki Rodrigues DMD, MD Work Phone[facility] 06-18-2022 15:09-0400 Systolic blood pressure 120 mm[Hg] Rikki Rodrigues DMD, MD Work Phone: [facility] 06-18-2022 15:07-0400 Body height 157.5 cm Rikki Rodrigues DMD, MD [facility] Phone[facility] 06-18-2022 15:07-0400 Body mass index (BMI) [Ratio] 34.75 kg/m2 Rikki Rodrigues DMD, MD Work Phone[facility] 06-18-2022 15:07-0400 Body weight 86.18 kg Rikki Rodrigues DMD, MD [facility] Phone[facility] 05-28-2022 09:00-0400 Body height 157.5 cm [facility] 05-28-2022 09:00-0400 Body mass index (BMI) [Ratio] 34.75 kg/m2 [facility] 05-28-2022 09:00-0400 Body weight 86.18 kg [facility] 02-26-2022 12:49-0400 Body temperature 97.81 [degF] Yi Moreno MD [facility] 02-26-2022 12:49-0400 Diastolic blood pressure 57 mm[Hg] Yi Moreno MD [facility] 02-26-2022 12:49-0400 Heart rate 78 /min Yi Moreno MD [facility] 02-26-2022 12:49-0400 Respiratory rate 18 /min Yi Moreno MD Work Phone: [facility] 02-26-2022 12:49-0400 SaO2% (BldA) [Mass fraction] 92 % Yi Moreno MD Work Phone: [facility] 02-26-2022 12:49-0400 Systolic blood pressure 101 mm[Hg] Yi Moreno MD Work Phone: [facility] 02-25-2022 18:16-0400 Body mass index (BMI) [Ratio] 32.92 kg/m2 Yi Moreno MD Work Phone: [facility] 02-25-2022 18:16-0400 Body weight 81.65 kg Yi Moreno MD Work Phone: [facility] 02-25-2022 08:08-0400 Body height 157.5 cm Yi Moreno MD Work Phone: [facility] 02-17-2022 22:11-0400 Heart rate 72 /min Pierce Ramos CO DIRECTOR-MS SQL SERVER DEVELOPER Work Phone: [facility] 02-16-2022 14:19-0400 Body height 157.5 cm Pierce Ramos CO DIRECTOR-MS SQL SERVER DEVELOPER Work Phone: [facility] 02-16-2022 14:19-0400 Body mass index (BMI) [Ratio] 32.92 kg/m2 Pierce Ramos CO DIRECTOR-MS SQL SERVER DEVELOPER Work Phone: [facility] 02-16-2022 14:19-0400 Body temperature 97.3 [degF] Pierce Ramos CO DIRECTOR-MS SQL SERVER DEVELOPER Work Phone: [facility] 02-16-2022 14:19-0400 Body weight 81.65 kg Pierce Ramso CO DIRECTOR-MS SQL SERVER DEVELOPER Work Phone: [facility] 02-16-2022 14:19-0400 Diastolic blood pressure 81 mm[Hg] Pierce Ramos CO DIRECTOR-MS SQL SERVER DEVELOPER [facility] 02-16-2022 14:19-0400 Heart rate 74 /min Pierce Ramos APRN-MS SQL SERVER DEVELOPER [facility] 02-16-2022 14:19-0400 Respiratory rate 16 /min Pierce Ramos CO DIRECTOR-MS SQL SERVER DEVELOPER Work Phone[facility] 02-16-2022 14:19-0400 SaO2% (BldA) [Mass fraction] 96 % Pierce Ramos APRN-MS SQL SERVER DEVELOPER [facility] 02-16-2022 14:19-0400 Systolic blood pressure 125 mm[Hg] Pierce Ramos APRN-MS SQL SERVER DEVELOPER [facility] 01-11-2022 14:20-0400 Diastolic blood pressure 87 mm[Hg] Yi Moreno MD [facility] 01-11-2022 14:20-0400 Heart rate 86 /min Yi Moreno MD [facility] 01-11-2022 14:20-0400 Systolic blood pressure 116 mm[Hg] Yi Moreno MD [facility] 01-11-2022 14:12-0400 Body height 157.5 cm Yi Moreno MD [facility] 01-11-2022 14:12-0400 Body mass index (BMI) [Ratio] 34.39 kg/m2 Yi Moreno MD Work Phone: [facility] 01-11-2022 14:12-0400 Body temperature 98.8 [degF] Yi Moreno MD [facility] 01-11-2022 14:12-0400 Body weight 85.28 kg Yi Moreno MD [facility] 01-11-2022 14:12-0400 Respiratory rate 18 /min Yi Moreno MD Work Phone: [facility] 01-11-2022 14:12-0400 SaO2% (BldA) [Mass fraction] 100 % Yi Moreno MD Work Phone: [facility] 01-05-2022 16:25-0400 Diastolic blood pressure 82 mm[Hg] Bertha Hirsch MD Work Phone: [facility] 01-05-2022 16:25-0400 Heart rate 87 /min Bertha Hirsch MD Work Phone: [facility] 01-05-2022 16:25-0400 Respiratory rate 16 /min Bertha Hirsch MD Work Phone: [facility] 01-05-2022 16:25-0400 SaO2% (BldA) [Mass fraction] 94 % Bertha Hirsch MD Work Phone: [facility] 01-05-2022 16:25-0400 Systolic blood pressure 122 mm[Hg] Bertha Hirsch MD Work Phone: [facility] 01-05-2022 16:00-0400 Body temperature 96.91 [degF] Bertha Hirsch MD Work Phone: [facility] 01-05-2022 13:35-0400 Body height 157.5 cm Bertha Hirsch MD Work Phone: [facility] 01-05-2022 13:21-0400 Body mass index (BMI) [Ratio] 34.06 kg/m2 Bertha Hirsch MD Work Phone: [facility] 01-05-2022 13:21-0400 Body weight 84.46 kg Bertha Hirsch MD Work Phone: [facility] 12-02-2021 15:38-0400 Body height 157.48 cm Gena Laine Maldonadonicanordia Work Phone: [facility] DO Work Phone: 12-02-2021 15:38-0400 Body mass index (BMI) [Ratio] 33.47 kg/m2 Gena Kirby Work Phone: [facility] [employer] 250 DO Work Phone: 12-02-2021 15:38-0400 Body surface area Derived from formula 1.84 m2 Gena Kirby Work Phone: [facility] [employer] 250 DO Work Phone: 12-02-2021 15:38-0400 Body weight 83.01 kg Gena Camachoholarmando Work Phone: [facility] [employer] 250 DO Work Phone: 12-02-2021 15:38-0400 Diastolic blood pressure 70 mm[Hg] Gena Camachoholarmando Work Phone: [facility] [employer] 250 DO Work Phone: 12-02-2021 15:38-0400 Heart rate 72 /min Gena Camachoholarmando Work Phone: [facility] [employer] 250 DO Work Phone: 12-02-2021 15:38-0400 Systolic blood pressure 92 mm[Hg] Gena Camachoholarmando Work Phone: [facility] [employer] 250 DO Work Phone: 11-09-2021 15:15-0400 Body height 157.48 cm Wiley Mcmanus Other [employer] Other 11-09-2021 15:15-0400 Body mass index (BMI) [Ratio] 32.55 kg/m2 Wiley Mcmanus Other [employer] Other 11-09-2021 15:15-0400 Body temperature 98.5 [degF] Wiley Mcmanus Other [employer] Other 11-09-2021 15:15-0400 Body weight 80.74 kg Wiley Mcmanus Other [employer] Other 11-09-2021 15:15-0400 Diastolic blood pressure 81 mm[Hg] Wiley Mcmanus Other [employer] Other 11-09-2021 15:15-0400 SaO2% (BldA) [Mass fraction] 94 % Wiley Mcmanus Other [employer] Other 11-09-2021 15:15-0400 Systolic blood pressure 122 mm[Hg] Wiley Mcmanus Other [employer] Other 10-14-2021 15:34-0500 Diastolic blood pressure 98 mm[Hg] Genalonnie Maldonadonicanordia [facility] Phone[facility] [employer] 250 DO Work Phone: 10-14-2021 15:34-0500 Systolic blood pressure 152 mm[Hg] Genalonnie Maldonadonicanordia [facility] Phone[facility] [employer] 250 DO Work Phone: 10-14-2021 15:23-0500 Body height 157.48 cm Genalonnie Maldonadonicanordia Work Phone: [facility] [employer] 250 DO Work Phone: 10-14-2021 15:23-0500 Body mass index (BMI) [Ratio] 33.47 kg/m2 Genalonnie Maldonadonicanordia [facility] [employer] 250 DO Work Phone: 10-14-2021 15:23-0500 Body surface area Derived from formula 1.84 m2 Gena Kirby Work Phone: [facility] 250 DO Work Phone: 10-14-2021 15:23-0500 Body weight 83.01 kg Gena Camachoholarmando Work Phone: [facility] 250 DO Work Phone: 10-14-2021 15:23-0500 Diastolic blood pressure 98 mm[Hg] Gena Camachoholarmando Work Phone: [facility] 250 DO Work Phone: 10-14-2021 15:23-0500 Heart rate 78 /min Gena Camachoholarmando Work Phone: [facility] 250 DO Work Phone: 10-14-2021 15:23-0500 Systolic blood pressure 160 mm[Hg] Gena Kirby Work Phone: [facility] 250 DO Work Phone: 10-14-2021 15:23-0500 16 1 Gena Kirby Work Phone: [facility] 250 DO Work Phone: Comment on above: PHQ-9 TS Encounters Encounter Date Encounter Type Care Provider Facility Start: 05-01-2025 End: 05-01-2025 Telephone encounter [facility]. [facility] Comment on above: r SHOULDER XR/ARTHRO GRAM Start: 04-25-2025 End: 04-25-2025 ambulatory MAJO Andino NIXON [facility] Start: 04-23-2025 End: 04-23-2025 ambulatory Gena Kirby Work Phone: [facility] Work Phone: Start: 04-23-2025 End: 04-23-2025 Patient encounter procedure Majo Becerra APRN [facility] Work Phone: Start: 04-23-2025 End: 04-23-2025 ambulatory Gena Andino Kofi Work Phone: [facility] Work Phone: Start: 04-23-2025 End: 04-23-2025 Patient encounter procedure Kyleronnie Correa Mariam [facility] Work Phone: Start: 04-17-2025 End: 04-17-2025 ambulatory RHINA AMOR Not Available Start: 04-17-2025 End: 04-17-2025 Office outpatient visit 25 minutes Rhina Amor MD Work Phone: [facility] Comment on above: Acquired hypothyroid ism (Primary Dx) Start: 04-17-2025 End: 04-17-2025 Bamboo flowsheet Rhina Amor MD Work Phone: [facility] Start: 04-17-2025 End: 04-17-2025 Bamboo flowsheet Rhina Amor MD Work Phone: [facility] Start: 04-14-2025 End: 04-14-2025 Clinisync Result Encounter Generic External Data Provider [facility] External Department Unsolicited Start: 04-14-2025 End: 04-14-2025 Clinisync Result Encounter Generic External Data Provider [facility] External Department Unsolicited Start: 04-14-2025 End: 04-14-2025 ambulatory Gena Andino Janiceholz Work Phone: [facility] Work Phone: Start: 04-14-2025 End: 04-14-2025 Departed Referred Jarad Husain MD -[facility] Start: 04-05-2025 End: 04-05-2025 Office outpatient visit 15 minutes Jr. Reed Valentino DO Work Phone: [facility] Comment on above: Chronic right should er pain; Impingement of right shoulder; Internal derangement of right shoulder Start: 04-05-2025 End: 04-05-2025 ambulatory REED SILVA Not Available Start: 03-26-2025 End: 03-26-2025 Refill Gena Kofi DENTAL RECEPTIONIST Work Phone: [facility] Comment on above: Mixed hyperlipidemia Start: 03-12-2025 End: 03-12-2025 ambulatory MAJO Andino NIXON [facility] Start: 02-27-2025 End: 02-27-2025 Refill Gena Kofi DENTAL RECEPTIONIST Work Phone: [facility] Comment on above: Hypokalemia (Primary Dx) Start: 02-20-2025 End: 02-21-2025 Refill Gena Kofi DENTAL RECEPTIONIST Work Phone: [facility] Comment on above: Chronic right should er pain (Primary Dx) Start: 02-19-2025 End: 02-21-2025 Telephone encounter Mark GAVIRIA Work Phone: [facility] Comment on above: Unable to do the MRI due to [employer] Start: 02-14-2025 End: 02-15-2025 Telephone encounter Mark GAVIRIA Work Phone: [facility] Comment on above: wants to ask the pro viders nurse about her inject Start: 02-13-2025 End: 02-13-2025 Bamboo flowsheet Gena Kofi DENTAL RECEPTIONIST Work Phone: [facility] Start: 02-13-2025 End: 02-13-2025 Bamboo flowsheet Gena Kofi DENTAL RECEPTIONIST Work Phone: [facility] Start: 02-13-2025 End: 02-13-2025 Office outpatient visit 15 minutes Gena Kofi DENTAL RECEPTIONIST Work Phone: [facility] Comment on above: Chronic right should er pain (Primary Dx); Primary hypertension Start: 02-13-2025 End: 02-13-2025 ambulatory GENA JOELHFREDDYZ Not Available Start: 01-23-2025 End: 01-23-2025 Telephone encounter Mark GAVIRIA Work Phone: [facility] Comment on above: MRI Start: 01-22-2025 End: 01-22-2025 Office outpatient new 30 minutes Mark GAVIRIA Work Phone: [facility] Comment on above: Acute pain of right shoulder (Primary Dx); Chronic right shoulder pain; Impingement of right shoulder; Internal derangement of right shoulder Start: 01-22-2025 End: 01-22-2025 ambulatory MARK Andino ISABEL Not Available Start: 01-21-2025 End: 01-21-2025 ambulatory Harsha Carrasco FURNACE FEEDER [facility] Comment on above: Acute pain of right shoulder (Primary Dx) Start: 01-21-2025 End: 01-21-2025 Bamboo flowsheet Harshamelina Carrasco FURNACE FEEDER [facility] Start: 01-21-2025 End: 01-21-2025 Bamboo flowsheet Harsha Enio FURNACE FEEDER [facility] Start: 01-17-2025 End: 01-17-2025 [...] CI PT Start: 01-08-2025 End: 01-08-2025 ambulatory Adirana Barrios PT [facility] Comment on above: Acute pain of right shoulder (Primary Dx) Start: 01-07-2025 End: 01-07-2025 Office outpatient visit 15 minutes Gena Joelnicanordia DENTAL RECEPTIONIST Work Phone: [facility] Comment on above: Chronic right should er pain (Primary Dx) Start: 01-07-2025 End: 01-07-2025 ambulatory GENA CAMACHODIA Not Available Start: 01-07-2025 End: 01-07-2025 Bamboo flowsheet Gena Joelnicanordia DENTAL RECEPTIONIST Work Phone: [facility] Start: 01-07-2025 End: 01-07-2025 Bamboo flowsheet Gena Joelnicanordia DENTAL RECEPTIONIST Work Phone: [facility] Start: 01-04-2025 End: 01-04-2025 Bamboo flowsheet Harsha Carrasco FURNACE FEEDER [facility] Start: 01-04-2025 End: 01-04-2025 Bamboo flowsheet Harsha Carrasco FURNACE FEEDER [facility] Start: 01-04-2025 End: 01-04-2025 ambulatory Harsha Carrasco FURNACE FEEDER [facility] Comment on above: Acute pain of right shoulder (Primary Dx) Start: 01-03-2025 End: 01-03-2025 ambulatory [facility] Start: 01-02-2025 End: 01-02-2025 ambulatory Adriana Barrios PT [facility] Comment on above: Acute pain of right shoulder (Primary Dx) Start: 12-30-2024 End: 12-31-2024 Refill Gena Kofi DENTAL RECEPTIONIST Work Phone: [facility] Comment on above: Mixed hyperlipidemia (CMS/HCC) Start: 12-25-2024 End: 12-25-2024 Office outpatient visit 10 minutes Oswald Len DO Work Phone: [facility] Comment on above: Labial cyst; Follow-up exam Start: 12-25-2024 End: 12-25-2024 ambulatory OSWALD LEN Not Available Start: 12-19-2024 End: 12-19-2024 ambulatory Mary Zafar [employer]NACE FEEDER [facility] Comment on above: Acute pain of right shoulder (Primary Dx) Start: 12-19-2024 End: 12-19-2024 Bamboo flowsheet Mary Kelbley FURNACE FEEDER [facility] Start: 12-19-2024 End: 12-19-2024 Bamboo flowsheet Mary Kelbley FURNACE FEEDER [facility] Start: 12-14-2024 End: 12-14-2024 Bamboo flowsheet Mary Kelbley FURNACE FEEDER [facility] Start: 12-14-2024 End: 12-14-2024 Bamboo flowsheet Mary Kelbley FURNACE FEEDER [facility] Start: 12-14-2024 End: 12-14-2024 ambulatory Maryagnieszka Llanesbley FURNACE FEEDER [facility] Comment on above: Acute pain of right shoulder (Primary Dx) Start: 12-11-2024 End: 12-11-2024 Office outpatient visit 15 minutes Oswald Harrington DO Work Phone: [facility] Comment on above: Swelling of labia; Labial cyst Start: 12-11-2024 End: 12-11-2024 ambulatory OSWALD HARRINGTON Not Available Start: 12-10-2024 End: 12-10-2024 ambulatory Adriana Barrios PT [facility] Comment on above: Acute pain of right shoulder (Primary Dx) Start: 12-10-2024 End: 12-10-2024 Bamboo flowsheet Adriana Barrios PT [facility] Start: 12-10-2024 End: 12-10-2024 Bamboo flowsheet Adriana Barrios PT [facility] Start: 12-06-2024 End: 12-06-2024 ambulatory Mary Llanesbley FURNACE FEEDER [facility] Comment on above: Acute pain of right shoulder (Primary Dx) Start: 12-06-2024 End: 12-06-2024 Bamboo flowsheet Mary Kelbley FURNACE FEEDER [facility] Start: 12-06-2024 End: 12-06-2024 Bamboo flowsheet Mary Kelbley FURNACE FEEDER [facility] Start: 12-03-2024 End: 12-04-2024 ambulatory Adriana Barrios PT [facility] Comment on above: Acute pain of right shoulder (Primary Dx) Start: 12-03-2024 End: 12-03-2024 Bamboo flowsheet Adriana Barrios PT [facility] Start: 12-03-2024 End: 12-03-2024 Bamboo flowsheet Adriana Barrios PT [facility] Start: 11-27-2024 End: 11-27-2024 Refill Genalonnie Kirby DENTAL RECEPTIONIST Work Phone: [facility] Comment on above: Other specified hypo thyroidism Start: 11-26-2024 End: 11-26-2024 Bamboo flowsheet Adriana Barrios PT [facility] Start: 11-26-2024 End: 11-26-2024 Bamboo flowsheet Adriana Barrios PT [facility] Start: 11-26-2024 End: 11-26-2024 ambulatory Adriana Barrios PT [facility] Comment on above: Acute pain of right shoulder (Primary Dx) Start: 11-25-2024 End: 11-25-2024 Refill Gena Kofi DENTAL RECEPTIONIST Work Phone: [facility] Comment on [...] Start: 11-22-2024 End: 11-29-2024 Bamboo flowsheet Aurea GAVIRIA Work Phone: [facility] Start: 11-22-2024 End: 11-29-2024 Clinisync Result Encounter Generic External Data Provider [facility] External Department Unsolicited Start: 11-20-2024 End: 11-20-2024 Office outpatient visit 15 minutes Gena Kofi DENTAL RECEPTIONIST Work Phone: [facility] Comment on above: Acute pain of right shoulder (Primary Dx) Start: 11-20-2024 End: 11-20-2024 ambulatory GENA AICHHOLZ Not Available Start: 11-20-2024 End: 11-20-2024 Bamboo flowsheet Gena Janiceholz DENTAL RECEPTIONIST Work Phone: [facility] Start: 11-20-2024 End: 11-20-2024 Bamboo flowsheet Gena Aichholz DENTAL RECEPTIONIST Work Phone: [facility] Start: 11-14-2024 End: 11-14-2024 Refill Gena Kofi DENTAL RECEPTIONIST Work Phone: [facility] Comment on above: Acute pain of right shoulder (Primary Dx) Acute pain of right shoulder Start: 11-07-2024 End: 11-07-2024 ambulatory GENA AICHHOLZ Not Available Start: 11-06-2024 End: 11-06-2024 ambulatory [facility] Start: 10-23-2024 End: 10-23-2024 ambulatory [facility] Work Phone: Start: 10-23-2024 End: 10-23-2024 Patient encounter procedure [facility] Work Phone: Start: 10-09-2024 End: 10-09-2024 Office outpatient visit 15 minutes Gena Kofi DENTAL RECEPTIONIST Work Phone: [facility] Comment on above: Generalized abdomina l pain (Primary Dx); Primary hypertension (CMS/HCC); Mixed hyperlipidemia (CMS/HCC); Irritable bowel syndrome with diarrhea; Nausea; Urinary tract infection without hematuria, site unspecified; Generalized anxiety disorder with panic attacks (CMS/HCC); Depression with anxiety Start: 10-09-2024 End: 10-09-2024 ambulatory GENA AICHHOLZ Not Available Start: 10-09-2024 End: 10-09-2024 Bamboo flowsheet Gean Aichholz DENTAL RECEPTIONIST Work Phone: [facility] Start: 10-09-2024 End: 10-09-2024 Bamboo flowsheet Gena Aichholz DENTAL RECEPTIONIST Work Phone: [facility] Start: 10-03-2024 End: 10-03-2024 Refill Gena Aichholz DENTAL RECEPTIONIST Work Phone: [facility] Comment on above: Urinary tract infect ion without hematuria, site unspecified (Primary Dx) Start: 10-02-2024 End: 10-02-2024 Refill Gena Aichholz DENTAL RECEPTIONIST Work Phone: [facility] Comment on above: Nausea Start: 09-28-2024 End: 09-28-2024 Refill Gena Aichholz DENTAL RECEPTIONIST Work Phone: [facility] Comment on above: Nausea (Primary Dx) Start: 09-27-2024 End: 09-28-2024 Clinisync Result Encounter Gena Aicnicanorholz DENTAL RECEPTIONIST Work Phone: [facility] External Department Unsolicited Start: 09-27-2024 End: 09-28-2024 Clinisync Result Encounter Gena Aichholz DENTAL RECEPTIONIST Work Phone: [facility] External Department Unsolicited Start: 09-25-2024 End: 09-25-2024 Bamboo flowsheet Gena Aichholz DENTAL RECEPTIONIST Work Phone: [facility] Start: 09-25-2024 End: 09-25-2024 Bamboo flowsheet Gena Aichholz DENTAL RECEPTIONIST Work Phone: [facility] Start: 09-25-2024 End: 09-25-2024 Clinisync Result Encounter Gena Aichholz DENTAL RECEPTIONIST Work Phone: [facility] External Department Unsolicited Start: 09-25-2024 End: 09-25-2024 ambulatory GENA JANICEHOLZ Not Available Start: 09-25-2024 End: 09-25-2024 Office outpatient visit 25 minutes Gena Kirby DENTAL RECEPTIONIST Work Phone: [facility] Comment on above: Generalized abdomina l pain (Primary Dx); Bipolar II disorder (CMS/HCC); Primary hypertension (CMS/HCC); Overweight (BMI 25.0-29.9); Generalized anxiety disorder with panic attacks (CMS/HCC); Other specified hypothyroidism ([facility]/HCC); Viral upper respiratory tract infection; Subacute cough; Irritable bowel syndrome with diarrhea; Weakness generalized Start: 09-24-2024 Non-patient / Non-visit [facility] Work Phone: Start: 09-18-2024 End: 09-21-2024 Clinisync Result Encounter Generic External Data Provider [facility] External Department Unsolicited Start: 09-18-2024 End: 09-21-2024 Clinisync Result Encounter Generic External Data Provider [facility] External Department Unsolicited Start: 09-13-2024 End: 09-13-2024 ambulatory ELIN BALLARD [facility] Start: 09-13-2024 End: 09-13-2024 Subsequent hospital visit by physician Gena Aguiar DENTAL RECEPTIONIST Work Phone: [facility] Laboratory Comment on above: Dysuria Start: 09-13-2024 End: 09-13-2024 Clinisync Result Encounter Generic External Data Provider [facility] External Department Unsolicited Start: 09-13-2024 End: 09-13-2024 Clinisync Result Encounter Generic External Data Provider [facility] External Department Unsolicited Start: 09-12-2024 End: 09-12-2024 Refill Gena Kirby DENTAL RECEPTIONIST Work Phone: [facility] Comment on above: Hypokalemia Start: 09-10-2024 End: 09-10-2024 ambulatory [facility] Work Phone: Start: 09-10-2024 End: 09-10-2024 Patient encounter procedure [facility] Work Phone: Start: 09-04-2024 End: 09-04-2024 Telephone encounter Rhina Amor MD Work Phone: [facility] Comment on above: Med Refill Start: 09-04-2024 End: 09-04-2024 ambulatory [facility] Work Phone: Start: 09-04-2024 End: 09-04-2024 Patient encounter procedure [facility] Physician [facility] Work Phone: Start: 08-06-2024 End: 08-06-2024 Office outpatient visit 15 minutes Aurea Marc PA Work Phone: [facility] Comment on above: Complex ovarian cyst ; Night sweats Start: 08-06-2024 End: 08-06-2024 ambulatory AUREA MARC Not Available Start: 07-31-2024 End: 07-31-2024 Patient encounter procedure [facility] Work Phone: Start: 07-17-2024 End: 07-17-2024 ambulatory MAJO Sina [facility] Start: 07-14-2024 End: 07-14-2024 Letter encounter Yi Moreno MD Work Phone: [facility] Start: 07-13-2024 End: 07-13-2024 Patient encounter procedure [facility] Work Phone: Start: 06-19-2024 End: 06-19-2024 Office outpatient visit 15 minutes Gena Kirby DENTAL RECEPTIONIST Work Phone: [facility] Comment on above: Primary hypertension (CMS/HCC) (Primary Dx); Hypokalemia; DIONNE (obstructive sleep apnea); Other microscopic colitis (CMS/HCC); Irritable bowel syndrome with diarrhea; Overweight (BMI 25.0-29.9); Generalized anxiety disorder with panic attacks (CMS/HCC); Bipolar II disorder (CMS/HCC); Mixed hyperlipidemia (CMS/HCC) Start: 06-19-2024 End: 06-19-2024 ambulatory GENA KOFI Not Available Start: 06-19-2024 End: 06-19-2024 Bamboo flowsheet Gena Keciaz DENTAL RECEPTIONIST Work Phone: [facility] Start: 06-19-2024 End: 06-19-2024 Bamboo flowsheet Gena Janiceholz DENTAL RECEPTIONIST Work Phone: [facility] Start: 06-11-2024 End: 06-11-2024 ambulatory Gena J Joelhholz Work Phone: [facility] Work Phone: Start: 06-11-2024 End: 06-11-2024 Patient encounter procedure Gena Joelhholz Work Phone: [facility] Gastroenterology Work Phone: Start: 05-16-2024 End: 05-16-2024 ambulatory Gena J Joelhholz Work Phone: [facility] Work Phone: Start: 05-16-2024 End: 05-16-2024 Patient encounter procedure Gena Joelhholz Work Phone: [facility] Gastroenterology Work Phone: Start: 05-08-2024 End: 05-08-2024 Patient encounter procedure Gena Joelhholz Work Phone: [facility] Work Phone: Start: 05-08-2024 End: 05-08-2024 ambulatory Gena J Joelhholz Work Phone: [facility] Work Phone: Start: 05-07-2024 End: 05-07-2024 Clinisync Result Encounter Gena Kofi DENTAL RECEPTIONIST Work Phone: [facility] External Department Unsolicited Start: 05-07-2024 End: 05-07-2024 Clinisync Result Encounter Gena Kofi DENTAL RECEPTIONIST Work Phone: [facility] External Department Unsolicited Start: 05-02-2024 End: 05-02-2024 Office outpatient visit 15 minutes Gena Kirby DENTAL RECEPTIONIST Work Phone: [facility] Comment on above: Acute URI (Primary D x); Overweight (BMI 25.0-29.9) Start: 05-02-2024 End: 05-02-2024 ambulatory GENA KIRBY Not Available Start: 05-02-2024 End: 05-02-2024 Bamboo flowsheet Gena Kirby DENTAL RECEPTIONIST Work Phone: [facility] Start: 05-02-2024 End: 05-02-2024 Bamboo flowsheet Gena Kirby DENTAL RECEPTIONIST Work Phone: [facility] Start: 04-26-2024 End: 04-26-2024 Clinisync Result Encounter Generic External Data Provider [facility] External Department Unsolicited Start: 04-26-2024 End: 04-26-2024 Clinisync Result Encounter Generic External Data Provider [facility] External Department Unsolicited Start: 04-17-2024 End: 04-17-2024 Office outpatient visit 15 minutes Gena Kirby DENTAL RECEPTIONIST Work Phone: [facility] Comment on above: Herpes zoster withou t complication (Primary Dx); Overweight (BMI 25.0-29.9) Start: 04-16-2024 End: 04-16-2024 ambulatory [facility] Work Phone: Start: 04-16-2024 End: 04-16-2024 Patient encounter procedure [facility] Work Phone: Start: 04-02-2024 End: 04-02-2024 ambulatory GENA KIRBY [facility] Start: 03-26-2024 End: 05-02-2024 Preoperative state Gena Kirby DENTAL RECEPTIONIST Work Phone: [facility] Start: 03-13-2024 End: 03-13-2024 ambulatory Gena Kirby Work Phone: [facility] Work Phone: Start: 03-13-2024 End: 03-13-2024 Patient encounter procedure Gena Keciaz Work Phone: [facility] Gastroenterology Work Phone: Start: 12-29-2023 End: 12-29-2023 ambulatory Gena Sina Camachoholz Work Phone: [facility] Work Phone: Start: 12-29-2023 End: 12-29-2023 Departed Referred Gena Janiceholz Work Phone: [facility] Start: 12-16-2023 End: 12-16-2023 ambulatory Gena Sina Maldonadohholz Work Phone: [facility] Work Phone: Start: 12-16-2023 Non-patient / Non-visit Gena Lonnie mckeon Work Phone: [facility] Physician [facility] Sleep Lab Work Phone: Start: 12-16-2023 End: 12-16-2023 Patient encounter procedure Gena Janiceholz Work Phone: [facility] Work Phone: Start: 12-14-2023 End: 12-14-2023 ambulatory Gena J Joelhholz Work Phone: [facility] Work Phone: Start: 12-14-2023 End: 12-14-2023 Patient encounter procedure Gena Janiceholz Work Phone: [facility] Work Phone: Start: 12-12-2023 End: 12-12-2023 ambulatory Gena J Joelhholz Work Phone: [facility] Work Phone: Start: 12-12-2023 End: 12-12-2023 Patient encounter procedure Gena Kofi Work Phone: [facility] Work Phone: Start: 11-02-2023 End: 11-02-2023 Patient encounter procedure Gena Kofi Work Phone: [facility] Work Phone: Start: 10-14-2023 End: 10-14-2023 ambulatory Genalonnie Kirby Work Phone: [facility] Work Phone: Start: 10-14-2023 End: 10-14-2023 Patient encounter procedure Gena Kofi Work Phone: [facility] Work Phone: Start: 09-29-2023 End: 10-01-2023 ambulatory [facility]IR[facility] Start: 09-20-2023 End: 09-20-2023 Patient encounter procedure Gena Kofi Work Phone: [facility]Sleep [facility] Work Phone: Start: 09-20-2023 End: 09-20-2023 ambulatory Gena Sina Kirby Work Phone: [facility] Work Phone: Start: 09-20-2023 Office outpatient vi sit 25 minutes Wiley Mcmanus [facility] Start: 09-20-2023 End: 09-20-2023 Patient encounter procedure Gena Kofi Work Phone: [facility]- Start: 08-12-2023 End: 08-12-2023 ambulatory Imad Asaad Other [employer] Other Start: 08-12-2023 Telephone encounter Imad Asaad [facility] Start: 08-10-2023 End: 08-10-2023 ambulatory Imad Asaad Other [employer] Other Start: 08-10-2023 Telephone encounter Imad Asaad [facility] Start: 08-08-2023 End: 08-08-2023 Admission to same day surgery center Gena Maldonadohholz Work Phone: [facility] Work Phone: Start: 08-08-2023 End: 08-08-2023 ambulatory Gena J Aichholz Work Phone: [facility] Work Phone: Start: 06-30-2023 End: 06-30-2023 Patient encounter procedure Gena Camachoholz Work Phone: [facility] [place] Work Phone: Start: 06-30-2023 End: 06-30-2023 ambulatory Gena Maldonadohholz Work Phone: [place] [employer] Other Start: 06-30-2023 Office outpatient ne w 30 minutes Majo Lyman [facility] Gastroenterology Start: 06-30-2023 End: 06-30-2023 Patient encounter procedure Genalonnie Maldonadohholz Work Phone: [facility] G[facility]ology Work Phone: Start: 06-07-2023 End: 06-07-2023 ambulatory Louise Johnson Other [employer] Other Start: 06-07-2023 Encounter by nat Johnson [facility] [place] Start: 06-07-2023 Office outpatient vi sit 25 minutes Louise Johnson [facility] [place] Start: 03-16-2023 End: 03-16-2023 ambulatory Gena J Aichholz Work Phone: [facility] Work Phone: Start: 03-16-2023 End: 03-16-2023 Patient encounter procedure Gena Kirby Work Phone: [facility] Work Phone: Start: 01-26-2023 Telephone encounter Rikki norris DMD, MD Work Phone: [facility] Start: 01-18-2023 ambulatory MS SQL SERVER DEVELOPER GENA KIRBY Facil ity:H1 Start: 12-13-2022 End: 12-13-2022 Subsequent hospital visit by physician Gena Kirby Work Phone: [facility] Laboratory Comment on above: OAB (overactive blad darinel); Urge incontinence; Frequency of urination Start: 11-26-2022 End: 11-26-2022 ambulatory BRIAN KIRBY Facility:H1 Start: 11-16-2022 End: 11-16-2022 ambulatory Gena Kirby Work Phone: [facility] Work Phone: Start: 11-16-2022 End: 11-16-2022 Patient encounter procedure Gena Kirby Work Phone: [facility] Work Phone: Start: 11-12-2022 End: 11-12-[address] OSWALD HARRINGTON . Facility:H1 Start: 11-04-2022 Telephone encounter Yi wylie MD Work Phone: [facility] Otolaryngology (ENT) Start: 11-01-2022 Encounter for preprocedural cardiovascular examination DR OSWALD HARRINGTON . [facility] Start: 11-01-2022 Telephone encounter Rikki norris DMD, MD Work Phone: [facility] Start: 10-28-2022 End: 10-29-[address] OSWALD HARRINGTON . Facility:H1 Start: 10-28-2022 End: 10-29-2022 Encounter for preprocedural cardiovascular examination DR OSWALD HARRINGTON . Facility:H1 Start: 10-19-2022 End: 10-19-2022 ambulatory UNKNOWN PROVIDER [facility] Start: 09-24-[address] OSWALD HARRINGTON [...] 08-12-2022 Subsequent hospital visit by physician Gena iKrby Work Phone: [facility] Laboratory Comment on above: Dysuria Start: [...] Start: 07-23-2022 End: 07-23-2022 ambulatory UNKNOWN PROVIDER Facility:[facility] Start: 07-14-2022 End: 07-17-2022 Evaluation and management of inpatient RIKKI RODRIGUES [facility] Start: 07-14-2022 End: 07-15-2022 ambulatory RIKKI RODRIGUES [facility] Start: 07-14-2022 End: 07-14-2022 Subsequent hospital visit by physician Rikki Rodrigues DMD, MD Work Phone: [facility] Radiology Comment on above: Arrived Start: 07-14-2022 End: 07-17-2022 Evaluation and management of inpatient Rikki Rodrigues DMD, MD Work Phone: [facility] [address] A Comment on above: DIONNE (obstructive sle ep apnea) (Primary Dx); Pain Start: 07-09-2022 Telephone encounter Yi wylie MD Work Phone: [facility] Otolaryngology (ENT) Comment on above: Patient questions/co ncerns (Patient asking what next step is after jaw surgery) Start: 07-08-2022 End: 07-09-2022 ambulatory UNKNOWN PROVIDER Facility:[facility] Start: 07-08-2022 End: 07-09-2022 Office outpatient new 45 minutes Gena Holbrook APRN-MS SQL SERVER DEVELOPER Work Phone: [facility] Pre Surgical Evaluation Comment on above: Pre-op testing (Prim amy Dx); Body mass index (BMI) 35.0-35.9, adult Start: 07-08-2022 End: 07-09-2022 Patient encounter status Gena Yusef PINON-MS SQL SERVER DEVELOPER Work Phone: [facility] Pre Surgical Evaluation Start: 07-07-2022 End: 07-08-2022 ambulatory MS SQL SERVER DEVELOPER GENA KIRBY Facility: Start: 07-06-2022 End: 07-06-2022 Patient encounter procedure Pierce Ramos APRN-MS SQL SERVER DEVELOPER Work Phone: [facility] [place] Pre-Surgical Evaluation Comment on above: ENCOUNTER OPENED IN ERROR (Primary Dx) Start: 07-05-2022 Telephone encounter Mary guy RN [facility] Pre Surgical Evaluation Comment on above: Pre-surgical Evaluat ion (Pre-op COVID testing not needed ) Start: 07-02-2022 End: 07-06-2022 ambulatory UNKNOWN PROVIDER Facility:[facility] Start: 07-02-2022 End: 07-02-2022 Follow-up encounter Rikki Rodrigues DMD, MD Work Phone: [facility] Oral Surgery Start: 07-02-2022 End: 07-02-2022 Patient encounter procedure Rikki Rodrigues DMD, MD Work Phone: [facility] Oral Surgery Comment on above: DIONNE (obstructive sle ep apnea) (Primary Dx) Start: 06-18-2022 End: 06-20-2022 Office outpatient new 30 minutes Rikki Rodrigues DMD, MD Work Phone: [facility] Oral Surgery Comment on above: Obstructive sleep ap shaun (Primary Dx); DIONNE (obstructive sleep apnea); Body mass index (BMI) 34.0-34.9, adult Start: 06-18-2022 End: 06-20-2022 Orders Only Saleem Mi CHAU Work Phone: [facility] Oral Surgery Start: 06-15-2022 End: 06-15-2022 ambulatory UNKNOWN PROVIDER Facility:[facility] Start: 06-03-2022 End: 06-03-2022 ambulatory YI MORENO Facility:[facility] Start: 05-31-2022 End: 05-31-2022 ambulatory Isabel Sin Other [employer] Other Start: 05-31-2022 Office outpatient vi sit 5 minutes Isabel Sin [facility] [place] Start: 05-28-2022 Telephone encounter Mary guy RN [facility] Pre Surgical Evaluation Comment on above: Pre-surgical Evaluat ion (Pre-op COVID testing) Start: 05-28-2022 ambulatory UNKNOWN PROVIDER Facili ty:[facility] Start: 05-28-2022 End: 05-28-2022 Nursing evaluation of patient and report Pse Rn [facility] Pre Surgical Evaluation Comment on above: Preop examination (P rimary Dx) Start: 05-28-2022 End: 05-28-2022 Preprocedural examination done Pse Rn [facility] Pre Surgical Evaluation Start: 05-26-2022 Telephone encounter Mary guy RN [facility] Pre Surgical Evaluation Comment on above: Pre-surgical Evaluat ion (Pre-op COVID testing) Start: 05-19-2022 End: 05-19-2022 ambulatory Gena Andino Kofi Work Phone: [facility] Work Phone: Start: 05-19-2022 End: 05-19-2022 Patient encounter procedure Gena Kofi Work Phone: [facility]Sleep Lab Start: 05-18-2022 Letter encounter Yi saunders MD Work Phone: [facility] Otolaryngology (ENT) Start: 05-17-2022 End: 05-18-[address] WILEY JAMES Facility:H1 Start: 05-11-2022 End: 05-12-[address] OSWALD HARRINGTON . Facility:H1 Start: 05-07-2022 End: 05-08-[address] OSWALD HARRINGTON . Facility: Start: 03-29-2022 End: 03-30-2022 Phys/qhp telephone evaluation 11-20 min Yi Moreno MD Work Phone: [facility] Otolaryngology (ENT) Comment on above: DIONNE (obstructive sle ep apnea) (Primary Dx) Start: 03-29-2022 End: 03-30-2022 ambulatory UNKNOWN PROVIDER Facility:[facility] Start: 03-09-2022 End: 03-10-2022 ambulatory BRIAN KIRBY Facility:H1 Start: 03-09-2022 Telephone encounter Yi wylie MD Work Phone: [facility] Otolaryngology (ENT) Start: 02-25-2022 End: 02-26-2022 Evaluation and management of inpatient YI MORENO Facility:[facility] Start: 02-25-2022 End: 02-26-2022 Subsequent hospital visit by physician Yi Moreno MD Work Phone: Inpatient 8B Comment on above: Encounter for carmela woodward testing for severe acute respiratory syndrome coronavirus 2 (SARS-CoV-2) (Primary Dx); DIONNE (obstructive sleep apnea); Postoperative pain Start: 02-24-2022 Telephone encounter Mary guy RN [facility] Pre Surgical Evaluation Comment on above: Pre-surgical Evaluat ion (Pre-op COVID testing - results) Start: 02-23-2022 End: 02-24-[address] DOCTOR ABDULLAHI Facility: Start: 02-19-2022 End: 02-21-2022 Subsequent hospital visit by physician Yaneth Sharp Dr Room 2 [facility] Radiology Comment on above: Ureteral stone Start: 02-17-2022 Telephone encounter Mary guy RN [facility] Pre Surgical Evaluation Comment on above: Pre-surgical Evaluat ion (Pre-op COVID testing) Start: 02-16-2022 End: 02-18-2022 ambulatory UNKNOWN PROVIDER Facility:[facility] Start: 02-16-2022 Encounter for other preprocedural examination UNKNOWN PROVIDER [facility] Start: 02-16-2022 End: 02-17-2022 Office outpatient new 45 minutes Pierce Ramos CO DIRECTOR-MS SQL SERVER DEVELOPER Work Phone: [facility] Pre-Surgical Evaluation Comment on above: Preop testing (Prima ry Dx); Abnormal electrocardiogram (ECG) (EKG); Body mass index (BMI) 32.0-32.9, adult Start: 02-16-2022 End: 02-17-2022 Patient encounter status Pierce Ramos CO DIRECTOR-MS SQL SERVER DEVELOPER Work Phone: [facility] Pre-Surgical Evaluation Start: 02-16-2022 Telephone encounter Yi wylie MD Work Phone: [facility] Otolaryngology (ENT) Start: 02-11-2022 Telephone encounter Mary guy RN [facility] Pre Surgical Evaluation Comment on above: Pre-surgical Evaluat ion (Pre-op COVID testing) Start: 02-04-2022 Letter encounter Yi saunders MD Work Phone: [facility] Otolaryngology (ENT) Start: 01-12-2022 End: 01-12-2022 ambulatory Wiley Mcmanus Other [facility] [employer] Other Start: 01-12-2022 Telephone encounter Wiley Mcmanus [facility] Sleep Lab Start: 01-11-2022 End: 01-11-2022 Office consultation new/estab patient 60 min Yi Moreno MD Work Phone: [facility] Otolaryngology (ENT) Comment on above: DIONNE (obstructive sle ep apnea) (Primary Dx); Body mass index (BMI) 34.0-34.9, adult Start: 01-05-2022 End: 01-05-2022 Subsequent hospital visit by physician Bertha Hirsch MD Work Phone: [facility] OR Start: 12-30-2021 End: 12-30-2021 Patient encounter status Gena Kirby Work Phone: [facility] Laboratory Start: 12-30-2021 End: 12-30-2021 Subsequent hospital visit by physician Gena Kirby Work Phone: [facility] Laboratory Comment on above: Pre-op testing Start: 12-22-2021 End: 12-24-2021 Subsequent hospital visit by physician [facility] Radiology Comment on above: Kidney stones Start: 12-02-2021 Office outpatient vi sit 10 minutes Gena Kirby Work Phone: [facility] Heart-[place] 250 DO Work Phone: Start: 11-09-2021 End: 11-09-2021 ambulatory Wiley Mcmanus Other [employer] Other Start: 11-09-2021 Office outpatient vi sit 40 minutes Wiley Mcmanus [facility] Start: 10-14-2021 Office outpatient vi sit 25 minutes Gena Kirby Work Phone: [facility]-[place] 250 DO Work Phone: Procedures Date Procedure Procedure Detail Performing Clinician Start: 04-14-2025 Urine culture Gena Kirby Work Phone: Start: 04-14-2025 URINE CULTURE - [facility] Generic External Data Provider Start: 01-22-2025 Arthrocentesis aspir&/inj major jt/bursa w/o us Mark GAVIRIA Work Phone: Start: 12-11-2024 Urnls dip stick/tablet rgnt non-auto w/o micrscp Oswald Razoo DO Work Phone: Start: 11-22-2024 IGP,APTIMA HPV,AGE GDLN Aurea GAVIRIA Work Phone: Start: 09-27-2024 XR ACUTE ABDOMEN SERIES Gena Kirby DENTAL RECEPTIONIST Work Phone: Start: 09-25-2024 ALL CBC WITH AUTO DIFF Gena Kirby DENTAL RECEPTIONIST Work Phone: Start: 09-25-2024 POCT COVID & FLU A/B ANTIGEN TEST Gena mckeon DENTAL RECEPTIONIST Work Phone: Start: 09-18-2024 Bacteria identified in Urine by Culture Generic External Data Provider Start: 09-13-2024 HMHP URINALYSIS, WITH MICROSCOPIC Generi c External Data Provider Start: 09-13-2024 Urnls dip stick/tablet reagent auto microscopy Elin Ballard CO DIRECTOR - MS SQL SERVER DEVELOPER Work Phone: Start: 07-11-2024 Mammography Aurea GAVIRIA Work Phone: Start: 05-08-2024 Diagnostic radiography of abdomen Gena mckeon Work Phone: Start: 05-07-2024 SARS-COV-2 AG* Gena Kirby DENTAL RECEPTIONIST Work Phone: Start: 04-26-2024 ALL THYROXINE (T4) FREE Generic External Data Provider Start: 12-20-2023 Mammography Gena Mcdonnellz DENTAL RECEPTIONIST Work Phone: Start: 12-14-2023 End: 12-14-2023 Diagnostic radiography of abdomen Gena mckeon Work Phone: Start: 11-22-2023 Microscopic observation [Identifier] in Cervix by Cyto stain Aurea GAVIRIA Work Phone: Start: 11-22-2023 Cytp cerv/vag auto thin layer prep mnl screen Aurea GAVIRIA Work Phone: Start: 10-14-2023 COVID/Influenza PCR (POC) Gena Camachodia Work Phone: Start: 08-08-2023 End: 08-08-2023 Colonoscopy Gena Kirby Work Phone: Start: 12-13-2022 Urnls dip stick/tablet reagent auto microscopy Elin Ballard CO DIRECTOR - MS SQL SERVER DEVELOPER Work Phone: Start: 08-12-2022 Urnls dip stick/tablet reagent auto microscopy Jerel Weaver PA-C Work Phone: Start: 07-17-2022 Glucose blood reagent strip Rikki frey DMD, MD Work Phone: Start: 07-17-2022 Glucose blood reagent strip Rikki frey DMD, MD Work Phone: Start: 07-17-2022 Assay of magnesium Ediat Meyer MD Work Phone: Start: 07-16-2022 Glucose [...] Start: 07-15-2022 Blood count complete automated Oliver Vail morgan DMD Work Phone: Start: 07-14-2022 Glucose blood reagent strip Rikki frey DMD, MD Work Phone: Start: 07-14-2022 Radiologic examination skull 4/> views Rikki Rodrigues DMD, MD Work Phone: Start: 07-14-2022 Assay of lactate Zenia CHAMBERLIAN Work Phone: Start: 07-14-2022 Blood gases any combination ph pco2 po2 co2 hco3 Zenia CHAMBERLAIN Work Phone: Start: 07-14-2022 Carboxyhemoglobin measurement Zenia CHAMBERLAIN Work Phone: Start: 07-14-2022 Urine test visual color cmprsn migel Mi DMD Work Phone: Start: 07-14-2022 Glucose blood reagent strip Rikki frey DMD, MD Work Phone: Start: 07-08-2022 Blood typing serologic abo Gena DEL CASTILLO RN-MS SQL SERVER DEVELOPER Work Phone: Start: 07-08-2022 Blood count complete automated Gena vasquez APRN-MS SQL SERVER DEVELOPER Work Phone: Start: 07-08-2022 Blood typing, ABO, Rho(D) and RBC antibody screening Gena Holbrook APRN-MS SQL SERVER DEVELOPER Work Phone: Start: 06-18-2022 panoramic radiographic image [...] lds trcg only w/o i&r Pierce Ramos CO DIRECTOR-MS SQL SERVER DEVELOPER Work Phone: Start: 01-11-2022 Laryngoscopy flexible diagnostic Yi Moreno MD Work Phone: Start: 01-05-2022 Fluoroscopy during operation Bertha john MD Work Phone: Start: 01-05-2022 Urine test visual color cmprsn meths Majo Rodrigues CO DIRECTOR - SCHOOL CROSSING GUARD SUPERVISOR Start: 12-30-2021 Basic metabolic panel calcium total Jerel D Dorkoskie PA-C Work Phone: Start: 12-22-2021 Radiologic exam abdomen 1 view Jerel D Do rkoskie PA-C Work Phone: Start: 10-25-2017 Microscopic observation [Identifier] in Cervix by Cyto stain Gena Kirby DENTAL RECEPTIONIST Work Phone: section Gena Jang Aic hholz Work Phone: Cholecystectomy Gena Maldonado dia Work Phone: Dental surgical procedure Cassandra Jang Aichholz Work Phone: History of tonsillectomy History of tonsillectomy Gena Kirby Work Phone: Lithotripsy Gena Jang Aichhol z Work Phone: Plan of Treatment Date Care Activity Detail Author Start: 08-08-2033 Screening for malignant neoplasm of colon [facility] Healthcare Start: 11-21-2028 Screening for malignant neoplasm of cervix [facility] Start: 04-13-2028 Screening for malignant neoplasm of cervix [facility] Start: 10-09-2025 End: 10-09-2025 Patient encounter procedure 10/09/2025 2:50 PM EST Office Visit [facility] [address] [place] [address] Rhina Amor MD [address] [place] [address] [facility] [facility] Start: 07-11-2025 Screening for malignant neoplasm of breast Mammogram [facility] Start: 05-06-2025 End: 05-06-2025 Patient encounter procedure 05/06/2025 3:00 PM EDT Office Visit [facility] [address] [place] [id number] Gena Kirby, PHILLY [address] [place] [address] [facility] Start: 04-17-2025 End: 04-17-2025 Patient encounter procedure [facility] Start: 04-17-2025 End: 04-17-2026 Thyrotropin [Units/volume] in Serum or Plasma TSH Lab Routine Acquired hypothyroidism Expected: 04/17/2025 (Approximate), Expires: 04/17/2026 [facility] Comment on above: Expected: 04/17/2025 (Approximate), Expi res: 04/17/2026 Start: 04-17-2025 End: 04-17-2026 Thyroxine (T4) free [Mass/volume] in Serum or Plasma T4, free Lab Routine Acquired hypothyroidism Expected: 04/17/2025 (Approximate), Expires: 04/17/2026 [facility] Comment on above: Expected: 04/17/2025 (Approximate), Expi res: 04/17/2026 Start: 04-17-2025 End: 04-17-2026 Triiodothyronine (T3) Free [Mass/volume] in Serum or Plasma T3, free Lab Routine Acquired hypothyroidism Expected: 04/17/2025 (Approximate), Expires: 04/17/2026 [facility] Work Phone: Comment on above: Expected: 04/17/2025 (Approximate), Expi res: 04/17/2026 Start: 04-14-2025 Bacteria identified in Urine by Culture Urine Culture [facility] Start: 04-14-2025 Urine culture [facility] Start: 2025 Shingles (RZV) Vaccine (1 of 2) Shingles (RZV) Vaccine (1 of 2) [facility] Start: 04-08-2025 End: 04-08-2025 Patient encounter procedure 04/08/2025 2:50 PM EDT Office Visit [facility] ENDOCR[facility]Y [address] [place] [phone] Rhina Amor MD [address] [place] [address] [facility] ENDOCRINOLOGY Start: 04-05-2025 End: 04-05-2026 EMG AND NERVE CONDUCTION STUDY EMG AND NERVE CONDUCTION STUDY Neurology Routine Chronic right shoulder pain Impingement of right shoulder Expected: 04/05/2025 (Approximate), Expires: 04/05/2026 [facility] Work Phone: Comment on above: Expected: 04/05/2025 (Approximate), Expi res: 04/05/2026 Start: 04-05-2025 End: 04-05-2026 RF Shoulder - right Arthrogram FL shoulder arthrogram right Imaging Routine Chronic right shoulder pain Impingement of right shoulder Internal derangement of right shoulder Expected: 04/05/2025, Expires: 04/05/2026 [facility] Comment on above: Expected: 04/05/2025, Expires: Start: 04-05-2025 End: 04-05-2025 Patient encounter procedure 04/05/2025 11:15 AM EDT Office Visit [facility] [address] [place] [address] Jr. Reed Valentino, [address] [address] [facility] Start: 03-20-2025 End: 03-20-2025 Patient encounter procedure 03/20/2025 3:00 PM EDT Office Visit [facility] [address] [place] [address] Gena Kirby, PHILLY [address] [place] [address] [facility] Start: 02-20-2025 End: 02-20-2025 Patient encounter procedure 02/20/2025 1:15 PM EDT Office Visit [facility] [address] [place] [phone] Jr. Reed Valentino DO [address] [place] [address] [facility] Start: 02-13-2025 End: 02-13-2025 Patient encounter procedure [facility] Comment on above: Primary hypertension (Primary Dx); Chronic right shoulder pain; Overweight (BMI 25.0-29.9) Start: 01-23-2025 End: 01-23-2026 MR Shoulder - right WO contrast MR shoulder right wo IV contrast Imaging Routine Internal derangement of right shoulder Expected: 01/23/2025 (Approximate), Expires: 01/23/2026 [facility] Work Phone: Comment on above: Expected: 01/23/2025 (Approximate), Expi res: 01/23/2026 Start: 01-22-2025 End: 01-22-2025 Patient encounter procedure 01/22/2025 2:00 PM EDT Office Visit [facility] [address] [place] [phone] Mark Olmedo, PA [address] [place] [address] [facility] Start: 01-21-2025 End: 01-21-2025 ambulatory 01/21/2025 2:00 PM EDT Treatment [facility] [address] [place] [address] Adriana Barrios, PT [facility] Start: 01-17-2025 End: 01-17-2025 ambulatory 01/17/2025 1:00 PM EDT Treatment [facility] [address] [place] [address] Adriana Barrios, PT [facility] Start: 01-08-2025 End: 01-08-2025 ambulatory 01/08/2025 9:00 AM EDT Treatment [facility] [address] [place] [address] Adriana Barrios, PT [facility] Start: 01-07-2025 End: 01-07-2025 Patient encounter procedure [facility] Comment on above: Arrived Start: 01-04-2025 End: 01-04-2025 ambulatory 01/04/2025 3:00 PM EDT Treatment [facility] [address] [facility] [address] [place] [address] Jose Cardozo, FURNACE FEEDER [facility] Start: 12-25-2024 End: 12-25-2024 Patient encounter procedure 12/25/2024 2:20 PM EDT Office Visit [facility] [address] [place] [phone] Oswald Harrington, [address] [place] [address] [facility] Start: 12-20-2024 End: 12-20-2024 Patient encounter procedure 12/20/2024 1:20 PM EDT Office Visit [facility] [address] [place] [address] Gena Kirby, PHILLY [address] [place] [address] [facility] Start: 12-19-2024 End: 12-19-2024 ambulatory 12/19/2024 3:30 PM EDT Treatment [facility] [address] [facility] [address] [place] [address] Adriana Barrios, PT [facility] Start: 12-19-2024 Screening for malignant neoplasm of breast Mammogram [facility] Start: 12-12-2024 End: 12-12-2024 ambulatory 12/12/2024 3:30 PM EDT Treatment [facility] [address] [facility] [address] [place] [address] Adriana Barrios, PT [facility] Start: 12-11-2024 End: 12-11-2024 Patient encounter procedure 12/11/2024 10:50 AM EDT Office Visit [facility] [address] [place] [address] Oswald Harrington, DO [address] [place] [address] [facility] Start: 12-10-2024 End: 12-10-2024 ambulatory 12/10/2024 3:00 PM EDT Treatment [facility] [address] [facility] [address] [place] [address] Adriana Barrios, PT [facility] Start: 12-06-2024 End: 12-06-2024 ambulatory 12/06/2024 3:30 PM EDT Treatment [facility] [address] [facility] [address] [place] [address] Mary Zafar, FURNACE FEEDER [facility] Start: 12-03-2024 End: 12-03-2024 ambulatory [facility] Comment on above: Acute pain of right shoulder (Primary Dx ) Start: 11-29-2024 End: 11-29-2024 ambulatory 11/29/2024 12:30 PM EDT Treatment [facility] [address] [facility] [address] [place] [address] Mary Zafar, FURNACE FEEDER [facility] Start: 11-26-2024 End: 11-26-2024 ambulatory 11/26/2024 12:00 PM EDT Evaluation [facility] [address] [place] [phone] Barrios Adriana, PT [facility] Start: [...] procedure 10/29/2024 4:00 PM EDT Office Visit [facility] [address] [place] [address] Bertha Hirsch MD [address] [place] [address], [address] [place] [address] 6 month KUB [facility] Comment on above: 6 month KUB [...] abdominal pain Expected: 09/25/2024 (Approximate), Expires: 09/25/2025 [facility] Comment on above: Expected: 09/25/2024 (Approximate), Expi res: 09/25/2025 Start: 09-25-2024 End: 09-25-2025 CBC W Auto Differential panel - Blood CBC and differential Lab Routine Generalized abdominal pain Expected: 09/25/2024 (Approximate), Expires: 09/25/2025 [facility] Work Phone: Comment on above: Expected: 09/25/2024 (Approximate), Expi res: 09/25/2025 Start: 09-25-2024 End: 09-25-2025 Comprehensive metabolic 2000 panel - Serum or Plasma Comprehensive metabolic panel Lab Routine Generalized abdominal pain Expected: 09/25/2024 (Approximate), Expires: 09/25/2025 [facility] Comment on above: Expected: 09/25/2024 (Approximate), Expi res: 09/25/2025 Start: 09-25-2024 End: 09-25-2025 Lipase [Enzymatic activity/volume] in Serum or Plasma Lipase Lab Routine Generalized abdominal pain Expected: 09/25/2024 (Approximate), Expires: 09/25/2025 [facility] Comment on above: Expected: 09/25/2024 (Approximate), Expi res: 09/25/2025 Start: 09-25-2024 End: 09-25-2025 Urinalysis complete panel - Urine Urinalysis with reflex microscopic (clean catch) Lab Routine Generalized abdominal pain Expected: 09/25/2024 (Approximate), Expires: 09/25/2025 [facility] Comment on above: Expected: 09/25/2024 (Approximate), Expi res: 09/25/2025 Start: 09-25-2024 End: 09-25-2025 XR Chest View and Abdomen Supine and Upright XR abdomen 2 views w chest 1 view Imaging Routine Generalized abdominal pain Subacute cough Expected: 09/25/2024, Expires: 09/25/2025 [facility] Comment on above: Expected: 09/25/2024, Expires: Start: 09-24-2024 End: 09-24-2024 Patient encounter procedure 09/24/2024 3:20 PM EST Office Visit [facility] [address] [place] [phone] Oswald Harrington, DO [address] [place] [address] [facility] Start: 08-06-2024 End: 08-06-2025 US for US PELVIS-TRANSVAG IF INDICATED Imaging Routine Complex ovarian cyst Expected: 08/06/2024 (Approximate), Expires: 08/06/2025 [facility] Work Phone: Comment on above: Expected: 08/06/2024 (Approximate), Expi res: 08/06/2025 Start: 06-19-2024 End: 06-19-2024 Patient encounter procedure 06/19/2024 3:20 PM EDT Office Visit [facility] [address] [place] [phone] Gena Kirby, DENTAL RECEPTIONIST [address] [place] [phone] Hypokalemia (Primary Dx) [facility] Comment [...] Office Visit [facility] [address] [place] [phone] Gena Kirby, DENTAL RECEPTIONIST [address] [place] [address] [facility] Start: 05-14-2024 End: 05-14-2024 Patient encounter procedure 05/14/2024 3:00 PM EDT Office Visit [facility] [address] [place] [address] Gena Kirby NP [address] [place] [address] [facility] Start: 05-02-2024 End: 05-02-2024 Patient encounter procedure 05/02/2024 3:20 PM EDT Office Visit [facility] [address] [place] [address] Gena Kirby NP [address] [place] [phone] Arrived [facility] Comment on above: Arrived Start: 04-22-2024 COVID-19 Vaccine ( season) COVID-19 Vaccine ( season) [facility] Start: 04-22-2024 COVID-19 Vaccine ( season) COVID-19 Vaccine ( season) [facility] Start: 04-22-2024 Influenza vaccination Influenza Vaccine (#1) [facility] Start: 03-22-2024 Influenza vaccination Flu vaccine (#1) [facility] Start: 08-08-2023 [facility] Start: 03-22-2023 Influenza vaccination Flu vaccine (Season Ended) [facility] Start: 02-21-2023 End: 02-21-2023 Patient encounter procedure 02/21/2023 Office Visit Urology [facility] Start: 12-21-2022 Cholesterol [Mass/volume] in Serum or Plasma Cholesterol [facility] Start: 12-21-2022 Lipid panel Cholesterol [facility] Start: 10-25-2022 Screening for malignant neoplasm of cervix Pap Smear [facility] Start: 10-19-2022 End: 10-19-2022 Patient encounter procedure 10/19/2022 Office Visit Ent-Otolaryngology Yi Moreno MD [address] [place] [phone] [facility] [place] Otolaryngology (ENT) Start: 08-13-2022 End: 08-13-2022 Patient encounter procedure 08/13/2022 Office Visit Or al Surgery Rikki Rodrigues DMD, MD [address] [place] [phone] [facility] Oral Surgery Start: 07-30-2022 End: 07-30-2022 Patient encounter procedure 07/30/2022 Office Visit Or al Surgery Rikki Rodrigues DMD, MD [address] [place] [phone] [facility] Oral Surgery Start: 07-23-2022 End: 07-23-2022 Telemedicine consultation with patient 07/23/2022 Telemedicine Oral Surgery Rikki Rodrigues DMD, MD [address] [place] [phone] [facility] Oral Surgery Start: 07-14-2022 End: 07-14-2022 Admission to same day surgery center 07/14/2022 Surgery General Surgery Rikki Rodrigues DMD, MD [address] [place] [phone] [facility]STEOT[facility] Main OR Comment on above: [facility]FORTE I OSTEOTOMY Start: 07-14-2022 End: 07-14-2022 LEFORTE I OSTEOTOMY LEFORTE I OSTEOTOMY Routine scheduled DIONNE (obstructive sleep apnea) 07/14/2022 9:23 AM EST [facility] Start: 07-14-2022 End: 11-23-2022 OSTEOTOMY, SAGITTAL SPLIT, BILATERAL OSTEOTOMY, SAGITTAL SPLIT, BILATERAL Routine scheduled DIONNE (obstructive sleep apnea) 07/14/2022 9:23 AM EST [facility] Start: 07-14-2022 Subsequent hospital visit by physician 07/14/2022 Hospital Encounter General Surgery Rikki Rodrigues DMD, MD [address] [place] [phone] [facility] Main OR Start: 07-14-2022 End: 07-14-2022 Admission to same day surgery center 07/14/2022 Surgery General Surgery Rikki Rodrigues DMD, MD [address] [place] [phone] LEFORTE I OSTEOTOMY [facility] Main OR Comment on above: LEFORTE I OSTEOTOMY Start: 07-14-2022 End: 07-14-2022 Anesthesia consultation 07/14/2022 Anesthesia Event General Surgery Mark Atwood MD [address] [place] [phone] [facility] Main OR Start: 07-14-2022 End: 07-14-2022 [...] Encounter General Surgery Rikki Rodrigues DMD, MD [address] [place] [phone] [facility] Main OR Start: 07-08-2022 End: 07-08-2022 Patient encounter procedure 07/08/2022 Office Visit Presurgical Evaluation Gena Holbrook, KATHRIN-BRIAN [address] [place] [phone] [facility] Pre Surgical Evaluation Start: 07-06-2022 End: 07-06-2022 Patient encounter procedure 07/06/2022 Office Visit Presurgical Evaluation Pierce Ramos APRN-BRIAN [address] [place] [phone] Preop testing (Primary Dx) [facility] Pre-Surgical Evaluation Comment on above: Preop testing (Primary Dx) Start: 06-15-2022 End: 06-15-2022 Patient encounter procedure 06/15/2022 Office Visit Ent-Otolaryngology Yi Moreno MD [address] [place] [phone] [facility] Otolaryngology (ENT) Start: 06-03-2022 End: 06-03-2022 Admission to same day surgery center 06/03/2022 Surgery Ambulatory Surgery Yi Moreno MD [address] [place] [address] BRONCHOSCOPY, FLEXIBLE, DRUG INDUCED SLEEP ENDOSCOPY (DISE) [facility] Main OR PACU Comment on above: BRONCHOSCOPY, FLEXIBLE, DRUG INDUCED SLE EP ENDOSCOPY (DISE) Start: 06-03-2022 End: 06-03-2022 BRONCHOSCOPY, FLEXIBLE, DRUG INDUCED SLEEP ENDOSCOPY (DISE) BRONCHOSCOPY, FLEXIBLE, DRUG INDUCED SLEEP ENDOSCOPY (DISE) Routine scheduled DIONNE (obstructive sleep apnea) 06/03/2022 8:39 AM EDT PACU Procedure Rooms Start: 06-03-2022 Subsequent hospital visit by physician [facility] Main OR PACU Comment on above: Encounter for laboratory testing for sev ere acute respiratory syndrome coronavirus 2 (SARS-CoV-2) (Primary Dx) Start: 05-28-2022 End: 05-28-2022 Nursing evaluation of patient and report 05/28/2022 Nurse Visit Presurgical Evaluation [facility] Pre Surgical Evaluation Start: 05-22-2022 Influenza vaccination Influenza Vaccine (#1) [facility] Start: 04-22-2022 Influenza vaccination [facility] Start: 03-29-2022 End: 03-29-2022 Telemedicine consultation with patient 03/29/2022 Telemedicine Ent-Otolaryngology Yi Moreno MD [address] [place] [phone] [facility] [place] Otolaryngology (ENT) Start: 03-24-2022 FUV, Provider: Eileen Nichols, Status: Pen, Time: 3:50 PM FUV, Provider: Eileen Nichols, Status: Pen, Time: 3:50 PM [employer] 250 DO Work Phone: Start: 03-22-2022 Influenza vaccination [facility] Start: 02-25-2022 End: 02-25-2022 Admission to same day surgery center 02/25/2022 Surgery General Surgery Yi Moreno MD [address] [place] [address] UVULOPALATOPHARYNGOPLASTY [facility] Main OR Comment on above: UVULOPALATOPHARYNGOPLASTY Start: 02-25-2022 Subsequent hospital visit by physician [facility] Main OR Comment on above: Encounter for laboratory testing for sev ere acute respiratory syndrome coronavirus 2 (SARS-CoV-2) (Primary Dx) Start: 02-25-2022 End: 02-25-2022 UVULOPALATOPHARYNGOPLASTY [facility] Start: 02-25-2022 End: 02-25-2022 Admission to same day surgery center 02/25/2022 Surgery General Surgery Yi Moreno MD [address] [place] [address] UVULOPALATOPHARYNGOPLASTY [facility] Main OR Comment on above: UVULOPALATOPHARYNGOPLASTY Start: 02-25-2022 Subsequent hospital visit by physician 02/25/2022 Hospital Encounter General Surgery Yi Moreno MD [address] [place] [address] Encounter for laboratory testing for severe acute respiratory syndrome coronavirus 2 (SARS-CoV-2) (Primary Dx) [facility] OR Comment on above: Encounter for laboratory testing for sev ere acute respiratory syndrome coronavirus 2 (SARS-CoV-2) (Primary Dx) Start: 02-25-2022 End: 02-25-2022 UVULOPALATOPHARYNGOPLASTY UVULOPALATOPHARYNGOPLASTY Routine scheduled DIONNE (obstructive sleep apnea) 02/25/2022 9:20 AM EDT [facility]OPERATIVE [facility] Start: 02-23-2022 End: 02-23-2022 Patient encounter procedure 02/23/2022 Office Visit Urology Elin Ballard APRN - BRIAN [address] [place] [address] [facility] Start: 02-16-2022 End: 02-16-2022 Patient encounter procedure 02/16/2022 Office Visit Presurgical Evaluation Pierce Ramos APRN-MS SQL SERVER DEVELOPER [address] [place] [address] [facility] Pre-Surgical Evaluation Start: 01-08-2022 End: 01-08-2022 Patient encounter procedure 01/08/2022 Office Visit Urology Elin Ballard APRN - MS [employer] SERVER DEVELOPER [address] [place] [address] [facility] Start: 01-05-2022 End: 01-05-2022 Cysto/uretero w/lithotripsy &indwell stent insrt CYSTOSCOPY URETEROSCOPY [facility]ONES 01/05/2022 2:57 PM EDT [facility] Start: 12-06-2021 COVID-19 Vaccine (3 - Booster for Pfizer series) COVID-19 Vaccine (3 - Booster for Pfizer series) [facility] Start: 12-01-2021 NURSEVST, Provider: AUSTIN ACOSTA03 RN WOMEN SERVICES 1,[id number], Status: Pen, Time: 3:15 PM NURSEVST, Provider: AUSTIN ACOSTA03 RN WOMEN SERVICES 1,[id number], Status: Pen, Time: 3:15 PM -[facility] 250 DO Work Phone: Start: 09-02-2021 COVID-19 Vaccine (3 - Booster for Pfizer series) COVID-19 Vaccine (3 - Booster for Pfizer series) [facility] Start: 2020 Cholesterol [Mass/volume] in Serum or Plasma Cholesterol [facility] Start: 2020 Screening for malignant neoplasm of colon [facility] Start: 2015 Lipid panel Lipids [facility] Start: 2015 Screening for malignant neoplasm of breast [facility] Start: 2010 Diabetes screen Diabetes screen [facility] Start: 2005 Screening for malignant neoplasm of cervix [facility] Start: 1996 Screening for malignant neoplasm of cervix Pap smear [facility] Start: 1994 DTaP/Tdap/Td vaccine (1 - Tdap) DTaP/Tdap/Td vaccine (1 - Tdap) [facility] Start: 1994 Hepatitis A (HAV) Vaccine (optional start 19+ years) Hepatitis A (HAV) Vaccine (optional start 19+ years) [facility] Start: 1994 Hepatitis B vaccination Hepatitis B (HBV) Vaccine (1 of 3 - 19+ 3-dose series) [facility] Start: 1994 Hepatitis B vaccine (1 of 3 - 19+ 3-dose series) Hepatitis B vaccine (1 of 3 - 19+ 3-dose series) [facility] Start: 1993 Creatinine measurement Creatinine [facility] Start: 1993 Hepatitis C screening [facility] Start: 1993 Potassium [Moles/volume] in Serum or Plasma Potassium [facility] Start: 1993 Tetanus + diphtheria + acellular pertussis vaccine (product) Tdap Booster [facility] Start: 1990 HIV screening [facility] Start: 1987 Depression Monitoring Depression Monitoring [facility] Start: 1985 Lipid panel Lipids [facility] twago - teamwork across global offices [facility] Start: 1975 Screening for malignant neoplasm of [...] (DISE) Routine scheduled DIONNE (obstructive sleep apnea) [facility] Calprotectin [Mass/m ass] in Stool [facility] CBC panel - Blood by Automated count COMPLETE BLOOD COUNT Lab STAT Daily until discontinued starting 07/16/2022, 2 completed THE [employer] Work Phone: Comment on above: Daily until discontinued starting 2021, [address] Abdomen and Pelvi s W contrast IV [facility] End: 08-12-2022 Culture, Urine [employer] Work Phone: Comment on above: 1 Occurrences starting 08/12/2022 until 08/12/2022 End: 12-13-2022 Culture, Urine [employer] Work Phone: Comment on above: 1 Occurrences starting 12/13/2022 until 12/13/2022 End: 09-13-2024 Culture, Urine Tbricks Comment on above: 1 Occurrences starting 09/13/2024 until 09/13/2024 Diagnostic radiograp hy of abdomen [facility] Diagnostic radiograp hy of abdomen [facility] End: 07-14-2022 Ecg routine ecg w/least 12 lds trcg only w/o i&r EKG 12 LEAD - PERFORM MUSE Routine Once for 1 Occurrences starting 07/14/2022 until 07/14/2022 [employer] Work Phone: Comment on above: Once for 1 Occurrences starting 07/14/20 until 07/14/2022 Elastase.pancreatic [Mass/mass] in Stool [facility] Endomysial antibody IgA level [facility] Gliadin peptide IgA Ab [Units/volume] in Serum [facility] Gliadin peptide IgG Ab [Units/volume] in Serum [facility] HIV 1+2 Ab+HIV1 p24 Ag [Presence] in Serum or Plasma by Immunoassay [facility] IgA [Mass/volume] in Serum or Plasma [facility] End: 01-05-2022 INITIATE PACU OXYGEN THERAPY PROTOCOL Initiate PACU Oxygen Therapy Protocol Respiratory Care Routine Continuous until discontinued starting 01/05/2022 [facility] Comment on above: Continuous until discontinued starting 0 01/05/2022 Oxygen therapy [[facility] Data Set] Initiate Oxygen Therapy Protocol Respiratory Care Routine As Needed until discontinued starting 01/05/2022 [facility] Work Phone: Comment on above: As Needed until discontinued starting End: 02-25-2022 Palatopharyngoplasty PALATOPHARYNGOPLASTY Procedures Routine One time for 1 Occurrences starting 02/25/2022 until 02/25/2022 Contactually Comment on above: One time for 1 Occurrences starting 02/2022 until 02/25/2022 Patient Education [facility] Work Phone: Rcnstj midface lefor t i 1 piece w/o bone graft RECONSTRUCTION MIDFACE, LEFORT I; 1 PIECE, W/O BONE GRAFT Procedures Routine DIONNE (obstructive sleep apnea) Ordered: 07/14/2022 [employer] Work Phone: Comment on above: Ordered: 07/14/2022 Rcnstj mndblr rami&/ bdy sgtl splt w/int rgd fi RECONSTRUCTION, MANDIBULAR RAMI &/OR BODY, SAGITTAL SPLIT; W/INT RIGID FIXATION Procedures Routine DIONNE (obstructive sleep apnea) Ordered: 07/14/2022 Contactually Comment on above: Ordered: 07/14/2022 End: 03-17-2022 SARS-CoV-2 (COVID-19) RNA [Presence] in Unspecified specimen by JOHNNIE with probe detection NOVEL CORONAVIRUS (COVID-19) Lab STAT Encounter for laboratory testing for severe acute respiratory syndrome coronavirus 2 (SARS-CoV-2) 1 Occurrences starting 02/15/2022 until 03/17/2022 [employer] Work Phone: Comment on above: 1 Occurrences starting 02/15/2022 until 03/17/2022 Surgical pathology procedure [employer] Work Phone: Comment on above: Release Upon Ordering for 1 Occurrences starting 02/25/2022, 1 completed THIN PREP TIS PAP AN D HR HPV DNA THIN PREP TIS PAP AND HR HPV DNA Pathology and Cytology Routine Well woman exam with routine gynecological exam Ordered: 11/22/2024 [facility] Comment on above: Ordered: 11/22/2024 Tissue transglutamin ase IgA Ab [Units/volume] in Serum [facility] Tissue transglutamin ase IgG Ab [Units/volume] in Serum [facility] URINE CULTURE - [facility] URINE CULTU RE - [facility] Lab Routine 04/14/2025 1:50 AM EDT [facility] UVULOPALATOPHARYNGOPLASTY UVULOP ALATOPHARYNGOPLASTY Routine scheduled DIONNE (obstructive sleep apnea) PERIOPERATIVE SERVICES [facility] Immunizations Immunization Date Immunization Notes Care Provider [facility] 07-08-2021 Pfizer-BioNTech COVID-19 Vacc 30 MCG/0.3ML Intramuscular Suspension Gena Kirby Work Phone: [facility] 06-17-2021 Pfizer-BioNTech COVID-19 Vacc 30 MCG/0.3ML Intramuscular Suspension Gena Kirby Work Phone: [employer] 250 DO Work Phone: 06-27-2013 influenza virus vaccine, whole virus Gena Kirby Work Phone: [employer] 250 DO Work Phone: Payers Date Payer Category Payer Unknown [id number] 2022 Private Health Insurance [employer] [id number] 2022 Self-pay [id number] 2021 Commercial Indemnity [id number] 2021 Unknown 1975 Unknown [id number] 2.16.840.1.257827.3.579.2.59 3 1975 Unknown [id number] 2.16.840.1.844966.3.579.2.59 3 1975 Unknown [id number] 2.16.840.1.431734.3.579.2.59 3 1975 Unknown [id number] 2.16.840.1.739435.3.579.2.59 3 1975 Unknown [id number] 2.16.840.1.740996.3.579.2.59 3 1975 Unknown [id number] 2.16.840.1.001225.3.579.2.59 3 1975 Unknown [id number] 2.16.840.1.567653.3.579.2.59 3 1975 Unknown [id number] 2.16.840.1.897694.3.579.2.59 3 1975 Unknown [id number] 2.16.840.1.965535.3.579.2.59 3 1975 Unknown [id number] 2.16.840.1.304307.3.579.2.59 3 1975 Unknown [id number] 2.16.840.1.500415.3.579.2.59 3 1975 Unknown [id number] 2.16.840.1.021446.3.579.2.59 3 1975 Unknown [id number] 2.16.840.1.803544.3.579.2.59 3 1975 Unknown [id number] 2.16.840.1.265184.3.579.2.59 3 1975 Unknown [id number] 2.16.840.1.983789.3.579.2.73 2 1975 Unknown [id number] 2.16.840.1.450167.3.579.2.73 2 1975 Unknown [id number] 2.16.840.1.936826.3.579.2.73 2 1975 Unknown [id number] 2.16.840.1.891481.3.579.2.73 2 1975 Unknown [id number] 2.16.840.1.614672.3.579.2.73 2 1975 Unknown [id number] 2.16.840.1.439995.3.579.2.73 2 1975 Unknown [id number] 2.16.840.1.477443.3.579.2.73 2 1975 Unknown [id number] 2.16.840.1.975466.3.579.2.73 2 1975 Unknown [id number] 2.16.840.1.941230.3.579.2.73 2 1975 Unknown [id number] 2.16.840.1.825021.3.579.2.73 2 1975 Unknown [id number] 2.16.840.1.335322.3.579.2.73 2 1975 Unknown [id number] 2.16.840.1.656319.3.579.2.73 2 1975 Unknown [id number] 2.16.840.1.740499.3.579.2.73 2 1975 Unknown [id number] 2.16.840.1.804568.3.579.2.73 2 1975 Unknown [id number] 2.16.840.1.958647.3.579.2.59 8 1975 Unknown [id number] 2.16.840.1.396515.3.579.2.17 3 1975 Unknown [id number] 2.16.840.1.574207.3.579.2.17 3 1975 Unknown [id number] 2.16.840.1.660606.3.579.2.12 59 1975 Unknown [id number] 2.16.840.1.331301.3.579.2.12 59 1975 Unknown [id number] 2.16.840.1.948254.3.579.2.12 59 1975 Unknown [id number] 2.16.840.1.235247.3.579.2.12 59 1975 Unknown [id number] 2.16.840.1.539011.3.579.2.12 59 1975 Unknown [id number] 2.16.840.1.600797.3.579.2.12 59 1975 Unknown [id number] 2.16.840.1.340928.3.579.2.12 59 1975 Unknown [id number] 2.16.840.1.273007.3.579.2.12 59 1975 Unknown [id number] 2.16.840.1.961794.3.579.2.12 59 1975 Unknown [id number] 2.16.840.1.652207.3.579.2.12 59 1975 Unknown [id number] 2.16.840.1.361578.3.579.2.12 59 1975 Unknown [id number] 2.16.840.1.529920.3.579.2.12 59 1975 Unknown [id number] 2.16.840.1.979876.3.579.2.12 59 1975 Unknown [id number] 2.16.840.1.471593.3.579.2.12 59 1975 Unknown [id number] 2.16.840.1.441981.3.579.2.12 59 1975 Unknown [id number] 2.16.840.1.677544.3.579.2.12 59 1975 Unknown [id number] 2.16.840.1.172611.3.579.2.12 59 1975 Unknown [id number] 2.16.840.1.620098.3.579.2.12 59 1975 Unknown [id number] 2.16.840.1.204193.3.579.2.12 59 1975 Unknown [id number] 2.16.840.1.309842.3.579.2.12 59 1975 Unknown [id number] 2.16.840.1.828802.3.579.2.12 59 1975 Unknown [id number] 2.16.840.1.047377.3.579.2.12 59 1975 Unknown [id number] 2.16.840.1.960737.3.579.2.12 59 1975 Unknown [id number] 2.16.840.1.072809.3.579.2.12 1975 Unknown [id number] 2.16.840.1.387022.3.579.2.12 1975 Unknown [id number] 2.16.840.1.085485.3.579.2.12 59 1975 Unknown [id number] 2.16.840.1.827328.3.579.2.12 59 1975 Unknown [id number] 2.16.840.1.085403.3.579.2.12 86 1975 Unknown [id number] 2.16.840.1.276393.3.579.2.12 86 1975 Unknown [id number] 2.16.840.1.323438.3.579.2.12 86 1975 Unknown [id number] 2.16.840.1.127181.3.579.2.12 86 1975 Unknown [id number] 2.16.840.1.732912.3.579.2.12 86 1975 Unknown [id number] 2.16.840.1.870034.3.579.2.12 86 1959 Unknown [id number] 1.2.840.037198.1.13.239.2.7. 3.121225.315 1959 Unknown [id number] 3 1959 Unknown [id number] Medicaid [place] Advantage [id number] 501 [id number] HCAP/HFA/FAP Active [id number] Unknown [id number] 2.16.840.1.350349.3.579.2.53 1 Unknown [id number] 2.16.840.1.534939.3.579.2.53 1 Social History Date Type Detail Facility Start: 02-16-2022 End: 09-06-2024 Occasional alcohol use Occasional alcohol use [facility] Comment on above: 2 bottles of pop alonso ly.; Quit 2019; Start: 11-30-2021 End: 08-24-2023 Tobacco smoking status [facility] Ex-smoker [facility] Phone: Start: 01-21-2016 End: 01-20-2021 History of tobacco use Cigarette Smoker [facility] Phone: Start: 11-30-2021 End: 09-15-2023 Tobacco use and exposure Smokeless tobacco non-user [facility] Phone: Start: 12-22-2021 End: 04-05-2025 Alcohol intake Lifetime non-drinker (finding) [facility] Phone: Start: 11-30-2021 Tobacco Comment occasional smo ker for 2 years, she quit over a year now [facility] Phone: Start: 1975 Sex Assigned At Not on file [facility] Phone: Start: 01-05-2022 End: 12-13-2022 Tobacco Comment occasional smoker for 2 years, she quit in [address] [facility] Phone: Start: 12-26-2021 End: 01-05-2022 Exposure to SARS-CoV-2 (event) Not sure [facility] Phone: Tobacco smoking status [facility] Tobacco smoking consumption unknown [facility] Start: 07-20-2023 End: 09-06-2024 Sex Assigned At [facility] Start: 02-16-2022 End: 10-19-2022 Alcohol intake Ex-drinker (finding) [facility] Start: 01-21-2016 End: 01-20-2021 History of tobacco use Current smoker [facility] Start: 1975 Sex Assigned At Female F [facility] Start: 10-18-2022 History SDOH Social Connections Phone 4 [facility] Start: 10-18-2022 History SDOH Social Connections Get Together 2 [facility] Start: 10-18-2022 History SDOH Social Connections Islam 1 [facility] Start: 10-18-2022 History SDOH Social Connections Living 7 [facility] Start: 02-27-2023 History SDOH Physica l Activity DPW 0 [...] [facility] Start: 02-24-2023 Sexual orientation Heterosexual (fin alicia) [facility] How hard is it for [...] Frx 24 Cm Firm [employer] - [id number] Start: 01-05-2022 Plate Bone 4mml Holex11 Ea1 [id number] - [id number] Start: 07-14-2022 Screw 2.0 X 10mm Self-Tapping Pc1 50 - [id number] Start: 07-14-2022 Pin Cross 2.0 X 5mm Pc1 50 - [id number] Start: 07-14-2022 Beata 8mm Screw [id number] Start: 07-14-2022 Plate 11 Hole 4m m Rt Pc1 [id number] - [id number] Start: 07-14-2022 Plate 6hole 12mm Bar Curved Pc1 [id number] - [id number] Start: 07-14-2022 Scr Bn 1.7mm 4mm St Ax Stab Ea1 [id number] - [id number] Start: 07-14-2022 Scr Bn 1.9mm 5mm Crnmxf Er Ax Ea1 [id number] - [id number] Start: 07-14-2022 Goals Date Patient Goal Desired Activity /State Functional Status Date Assessment Result Facility 10-14-2021 PHQ-9 [id number] Moder ately Severe (15-19) -[facility] [address] DO Work Phone: Clinical Notes 11-09-2021 to 05-01-2025 Telephone Encounter - Sera Nolan - 05/01/2025 3:42 PM EDTTelephone Encounter - Sera Nolan - 05/01/2025 3:42 PM EDT Note Date & Type Note Facility 05-01-2025 Telephone encounter Note Form atting of this note might be different from the original. JERILYN 04/05/25 R Shoulder pain, EMG & XR ARTHROGRAM R SHOULDER Are noted to be ordered in chart Patient calling as she had her EMG 04/23/25 and is wondering what next step will be. I do not see referral in chart for the XR arthrogram to be completed at [facility] ( she can not have mri due to a sleep device) Please advise to schedule appointment for emg follow up or wait until arthrogram completed? 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 JERILYN 04/05/25 R Shoulder pain, EMG & XR ARTHROGRAM R SHOULDER Are noted to be ordered in chart Patient calling as she had her EMG 04/23/25 and is wondering what next step will be. I do not see referral in chart for the XR arthrogram to be completed at [facility] ( she can not have mri due to a sleep device) Please advise to schedule appointment for emg follow up or wait until arthrogram completed? (Patient also having jail disability faxed to office as her STD runs out 05/01/25) documented in this encounter [facility] 04-23-2025 Evaluation note Diagnosis Onset Date Resolution Bilateral arm pain acute 2024 1:01pm IBS (irritable bowel syndrome) acute April 23, 025 3:17pm [facility] Work Phone: 1(145) 542-316608-27-2025 History of Present illness Narrative* Rhina Amor MD - 04/17/2025 2:50 PM EDT Isabelle Hewitt is a 50 y.o. female No ref. provider found presents with chief complaint of Follow-up and Thyroid Problem HPI: IM : 03/2025 Follow-up visit on levothyroxine 75 mcg daily, no new lab, has a lot of concerns about safety of levothyroxine and questioning if need to be continue on. HPI: 03/2024 New patient sent from Gena Kirby for mainly hair loss and hair thickening and lab done in 01/2024, TSH 0.142, free T4 0.79 (0.76-1.49), free T3 2.42 (2.18-3.98). TSH back in 02/2024 was 0.108. She is on Levothyroxine 75 mcg daily since almost two to three years and she is worried about excessive hair loss, about her cycle. She does not have it since 11/2023. I told her she might in premenopausal area. SUBJECTIVE: MEDICATIONS: Current Outpatient Medications Medication Instructions [...] PRN meloxicam (MOBIC) 15 mg, Oral, Daily potassium chloride CR (K-Tab) 20 MEQ ER tablet 20 mEq, Oral, Daily trospium (Sanctura XR) 60 MG 24 hour capsule 1 capsule, Daily venlafaxine XR (Effexor XR) 150 MG 24 hr capsule 1 capsule, Daily VITAMIN D, CHOLECALCIFEROL, PO Take by mouth ALLERGIES: No Known Allergies Past Medical History: Diagnosis Date Abnormal appearance [...] Stent LITHOTRIPSY OTHER SURGICAL HISTORY Jaw Surgery CT LAP,CHOLECYSTECTOMY 01/2010 SALPINGECTOMY 11/12/2022 TONSILLECTOMY REVIEW OF SYMPTOMS: 14 POINT OF SYSTEM REVIEWED AND NEGATIVE OBJECTIVE: 11/22/2024 3:43 PM 12/11/2024 11:09 AM 12/25/2024 2:36 PM 01/07/2025 4:04 PM 01/22/2025 2:06 PM 02/13/2025 1:44 PM 04/17/2025 2:55 PM Vitals BMI 25.51 kg/m2 24.69 kg/m2 24.53 kg/m2 23.85 kg/m2 24.14 kg/m2 22.35 kg/m2 21.03 kg/m2 BSA (m2) 1.66 m2 1.64 m2 1.63 m2 1.61 m2 1.62 m2 1.56 m2 1.51 m2 Systolic 120 120 124 124 110 Diastolic 90 72 80 82 70 Heart Rate 79 67 108 SpO2 95 % 98 % 96 % Temp 98.5 F 97.8 F Resp 18 18 20 Height (in) 5' 2 5' 2 Weight (lb) 139.5 135 134.12 130.4 132 122.2 115 Visit Report Report Report Report Report Report Report Report Physical Exam Constitutional: Appearance: Normal appearance. She is normal weight. HENT: Head: Normocephalic and atraumatic. Right Ear: External ear normal. Nose: Nose normal. Mouth/Throat: Pharynx: Oropharynx is clear. Eyes: Extraocular Movements: Extraocular movements intact. Pupils: Pupils are equal, round, and reactive to light. Cardiovascular: Rate and Rhythm: Normal rate and regular rhythm. Pulmonary: Effort: Pulmonary effort is normal. Abdominal: General: Abdomen is flat. Palpations: Abdomen is soft. Musculoskeletal: General: Normal range of motion. Skin: General: Skin is warm. Neurological: General: No focal deficit present. Mental Status: She is alert. Psychiatric: Mood and Affect: Mood normal. Behavior: Behavior normal. ASSESSMENT AND PLAN: Assessment/Plan Diagnoses and all orders for this visit: Acquired hypothyroidism - T3, free; Future - T4, free; Future - TSH; Future We will continue with levothyroxine 75 mcg daily we will check lab now and adjust Follow up in about 6 months (around 10/18/2025). documented in this encounterNorth [facility] City HospitalQjhuylpvtj40-09-1788 History of Present illness Narrative* Jr. Reed Valentino, - 04/05/2025 11:15 AM EDT Images from the original note were not included. HISTORY OF PRESENT ILLNESS: EST PT Isabelleayush Hewitt is an 50 y.o. @ female. (EST PT W/ CRISTIAN ISABEL) - RECHECK RT SHOULDER PAIN - S/P DEPO INJECTION 01/22/25 (10 WKS, 3 DAYS) - RELIEF FOR ABOUT A MONTH WITH INJECTION - HERE TO DISCUSS OPTIONS FOR IMAGING/SURGERY. *UNABLE TO HAVE MRI DUE TO INSPIRE SLEEP APNEA DEVICE IN RT CHEST. XRAY [facility] 11/09/24 (PUSHED TO CHANGE PACS) PHYSICAL THERAPY @ [facility] (R) SA DEPO INJ 01/22/25 RT SHOULDER PAIN SINCE 10/2024, NKI. WOKE UP WITH ARM STIFF AND NUMB- TX BY PCP WITH XR AND PHYSICALTHERAPY. STATES SHE HAS NOT WORKED AT [employer] SINCE OCTOBER. PAIN POSTERIOR, LATERAL AND DOWN POSTERIOR AND ANTERIOR UPPER ARM. WILL GET SHOOTING PAIN. +MOBIC PRN. +HEAT, ICE, VOLTAREN PRN. STIFFNESSAND SORENESS THROUGHOUT ARM. +CRACKING, POPPING. INTERMITTENT N/T IN FOREARM AND INTO HAND. FEELS APULL ANTERIOR AND POSTERIOR UPPER ARM. SOMETIMES WAKES AT HS. RT HANDED. ALLERGIES: No Known Allergies HOME MEDICATIONS: Current Outpatient Medications Medication Instructions atenolol [...] PRN meloxicam (MOBIC) 15 mg, Oral, Daily potassium chloride CR (K-Tab) 20 MEQ ER tablet 20 mEq, Oral, Daily trospium (Sanctura XR) 60 MG 24 hour capsule 1 capsule, Daily venlafaxine XR (Effexor XR) 150 MG 24 hr capsule 1 capsule, Daily VITAMIN D, CHOLECALCIFEROL, PO Take by mouth PHYSICAL EXAM: Shoulder Musculoskeletal Exam Inspection Right Right shoulder inspection is normal. Ecchymosis: none Peripheral edema: none Atrophy: mild Atrophy comment: deltoid Masses: none Palpation Right Crepitus: no crepitus Increased warmth: none Tenderness: present Anterior shoulder: mild AC joint: mild Lateral arm: mild Range of Motion Right Right shoulder range of motion is normal. Active ROM: pain. Passive ROM: pain. Active forward elevation: 80. Passive forward elevation: 170. Shoulder active abduction: [...] stated age Neurological: alert and oriented x3 Vitals: There is no height or weight on file to calculate BMI. Tobacco Use: Medium Risk (04/05/2025) Patient History Smoking Tobacco Use: Former Smokeless Tobacco Use: Unknown Passive Exposure: Never Alcohol Use: Not At Risk (09/06/2024) AUDIT-C Frequency of Alcohol Consumption: Monthly or less Average Number of Drinks: 1 or 2 Frequency of Binge Drinking: Never IMAGING: Procedures Orders Placed This Encounter Procedures FL shoulder arthrogram right X-Ray Arthrogram RT Shoulder to rule out labral tear; Unable to have MRI due to inspire sleep apneadevice Standing Status: Future Expected Date: 04/05/2025 Expiration Date: 04/05/2026 Scheduling Instructions: To be done at [facility] Is the patient ?: No Reason for exam:: R/O Labral Tear EMG AND NERVE CONDUCTION STUDY Standing Status: Future Expected Date: 04/05/2025 Expiration Date: 04/05/2026 ASSESSMENT: ICD-10-CM 1. Chronic right shoulder pain M25.511 EMG AND NERVE CONDUCTION STUDY G89.29 FL shoulder arthrogram right 2. Impingement of right shoulder M25.811 EMG AND NERVE CONDUCTION STUDY FL shoulder arthrogram right 3. Internal derangement of right shoulder M24.811 FL shoulder arthrogram right PLAN: Check strength and range of motion. Unable to have an MRI secondary to inspire. We recommended MRI arthrogram of right shoulder to rule out rotator cuff tear. We'll see her back after her arthrogram.We have discussed restrictions in her home exercise program. Questions answered in laymen terms at the bedside. The diagnosis, home exercise plan and any ongoing restrictions/ recommendations reviewed. If unable to be reached in office, I recommend evaluation at nearest Emergency Room if any symptoms worsened or new symptoms develop for requiring urgent evaluation. documented in this encounterNorth Kansas City HospitalFmcypwunel85-47-9976 Telephone encounter Note* Telephone Encounter - NAVI Barnett - 02/19/2025 4:20 PM EDT Spoke with patient, she is fine with going to [facility] for MRI. I did speak to a tech at [facility], they are able to do it with inspire device. Might have some artifact from it. I called [facility] and asked them to send over auth information to [facility]. Patient also said she is starting to feel some pain again in her shoulder, had injection about a month ago. Has continued off work. Patient was thankful for call, will expect a call from [facility] to schedule. [facility] Work Phone: 1(151) 165-240007-01-2025 Miscellaneous Notes* Telephone Encounter - NAVI Barnett - 02/19/2025 4:20 PM EDT Spoke with patient, she is fine with going to [facility] for MRI. I did speak to a tech at [facility], they are able to do it with inspire device. Might have some artifact from it. I called [facility] and asked them to send over auth information to [facility]. Patient also said she is starting to feel some pain again in her shoulder, had injection about a month ago. Has continued off work. Patient was thankful for call, [facility]. * Telephone Encounter - Sarah Posadas - 02/19/2025 2:43 PM EDT Mary that she wanted to know about plates in her jaw, no one mentioned this when they called about the Inspire please advise * Telephone Encounter - NAVI Barnett - 02/19/2025 11:47 AM EDT Per technical support intern at [facility], they are able to scan with an inspire device but would be at their outpatientfacility. Called and left for patient. * Telephone Encounter - EVERETTE Cunningham - 02/19/2025 10:24 AM EDT Let see if the Inspire device can get MRI somewhere else- Possible [facility]. If pt agreeable.. ( let me know if she has questions about her injection- I saw phone tag between Paul and Her when I was out of office. - thanks * Telephone Encounter - Sarah Posadas - 02/19/2025 10:06 AM EDT [facility] called and said that they were unable to do the MRI due to the Aspire, unable to do it there, we can order a CAT scan or do the MRI somewhere else Please advise you can give them call at the [phone] ext [phone] or fax next order to [phone] documented in this encounterNOSaint Francis Medical CenterXpauijkitt51-15-9708 Telephone encounter Note* Telephone Encounter - Sarah Posadas - 02/19/2025 2:43 PM EDT Mary that she wanted to know about plates in her jaw, no one mentioned this when they called about the Inspire please advise [facility] [id number] Telephone encounter Note* Telephone Encounter - NAVI Barnett - 02/19/2025 11:47 AM EDT Per technical support intern at [facility], they are able to scan with an inspire device but would be at their outpatientfacility. Called and left for patient. [facility] HospitalTzfhzlecmg82-24-8846 Telephone encounter Note* Telephone Encounter - EVERETTE Cunningham - 02/19/2025 10:24 AM EDT Let see if the Inspire device can get MRI somewhere else- Possible [facility]. If pt agreeable.. ( let me know if she has questions about her injection- I saw phone tag between Paul and Her when I was out of office. - thanks [facility] Work Phone: 1(505) 853-475007-01-2025 Telephone encounter Note* Telephone Encounter - Sarah Posadas - 02/19/2025 10:06 AM EDT [facility] called and said that they were unable to do the MRI due to the Aspire, unable to do it there, we can order a CAT scan or do the MRI somewhere else Please advise you can give them call at the [phone] ext [phone] or fax next order to [phone] aptist [facility] HospitalNrrotobspc42-20-8089 Telephone encounter Note* Telephone Encounter - Sarah Posadas - 02/14/2025 2:21 PM EDT Patient tried to call back said that she is available now. aptist [facility] HospitalFvqdfcpqqd71-65-3413 Miscellaneous Notes* Telephone Encounter - Sarah Posadas - 02/14/2025 2:21 PM EDT Patient tried to call back said that she is available now. * Telephone Encounter - Merlyncarol Herron - 02/14/2025 11:57 AM EDT Patient called back returning call. * Telephone Encounter - Sarah Katharina - 02/14/2025 11:43 AM EDT Mary wanted to speak with someone provider or nurse about the injection she got January 22, please advise [phone] documented in this encounterNorth Kansas City HospitalHulcjytxqd11-33-2765 Telephone encounter Note* Telephone Encounter - Merlyn Herron - 02/14/2025 11:57 AM EDT Patient called back returning call. [facility] HospitalVjoeevolcj81-26-8808 Telephone encounter Note* Telephone Encounter - Sarahher Posadas - 02/14/2025 11:43 AM EDT Mary wanted to speak with someone provider or nurse about the injection she got January 22, please advise [phone] [facility] HospitalWawqjivaxx56-04-6843 History of Present illness Narrative* Gena Kirby NP - 02/13/2025 1:40 PM EDT Images from the original note [...] Stent LITHOTRIPSY OTHER SURGICAL HISTORY Jaw Surgery CT LAP,CHOLECYSTECTOMY 01/2010 SALPINGECTOMY 11/12/2022 TONSILLECTOMY family history [...] d/t implants in body still finding information * Gena Kirby NP - 02/13/2025 7:00 AM EDTAssociated Problem(s): Chronic right shoulder pain Has failed conservative treatment: over 6 weeks PT, NSAIDS, referred to ortho Has been off work since 11/13 Discussed with pt about returning to work, 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06-25-2025 Instructions* Patient Instructions* Gena Kirby NP - 02/13/2025 1:40 PM EDT Off work till end february, waiting on MRI documented in this [facility]06-04-2025 Telephone encounter Note* Telephone Encounter - NAVI Barnett - 01/23/2025 3:33 PM EDT Placed referral and faxed to [facility]. [facility] HospitalMjbdeuzgyn97-88-3818 Miscellaneous Notes* Telephone Encounter - NAVI Barnett - 01/23/2025 3:33 PM EDT Placed referral and faxed to [facility]. * Telephone Encounter - Lissette Mitchell - 01/23/2025 2:40 PM EDT Voicemail from [facility] ----Clarence, this is Luis Morrison from the [facility], the MRI department. I am [...] to go from there documented in this encounterNorth Kansas City HospitalZwaxjhjtjz29-79-6192 Telephone encounter Note* Telephone Encounter - Lissette Mitchell - 01/23/2025 2:40 PM EDT Voicemail from [facility] ----Hi, this is Luis Morrison from the [facility], the MRI department. I am [...] get that ready to go from there [facility] HospitalEgmfgfncvh86-63-5432 History of Present illness Narrative* EVERETTE Cunningham - 01/22/2025 2:00 PM EDTAssociated Order(s): L Inj/Asp: R subacromial bursa Post-Procedure Diagnose(s): Impingement of right shoulder Images from the original note were not included. Orthopedic Office note: NAME: Isabelle Hewitt : 1975 (NEW PT) [facility]NA KIRBY REFERRAL. RT SHOULDER PAIN SINCE 10/2024, NKI. WOKE UP WITH ARM STIFF AND NUMB- TX BY PCP WITH XR AND PHYSICAL THERAPY. XRAY [facility] 11/09/24 (PUSHED TO CHANGE PACS) PHYSICAL THERAPY @ [facility] STATES SHE HAS NOT WORKED AT [employer] SINCE OCTOBER. CONTINUES PHYSICAL THERAPY. PAIN POSTERIOR, [...] given injection Right Shoulder SA space (Code 07758 RT) Procedure, treatment alternatives, risks and benefits explained, specific risks discussed. Consent was given by the patient. Results - Imaging: - X-rays performed at [facility] show degenerative changes at rotator cuff footprint Xray TB:Exam Date: 11/09/2024 14:43 Report Date: 11/09/2024 14:44 At the request of: GENA KIRBY NP Procedure: XR shoulder RT min [...] Plan Right shoulder pain X-rays performed at [facility] show degenerative changes at the [...] made to get her MRI approved at [facility], pending confirmation of MRI compatibility due to [...] requiring urgent evaluation. 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 documented in this encounterNorth Kansas City HospitalHdssnkxbym77-94-3305 History of Present illness Narrative* Adriana Barrios, PT - 01/17/2025 1:00 PM EDT Images from the original note [...] is helping more than OTC NSAID. Precautions: [place] Subjective: Pt states she was a little sore following last session but not too bad. States will seeortho on January 22. Pain: 3/10 in right [...] PROM and gentle mobs in supine to rightshoulder to decrease pain and improve mobility Therapeutic [...] instructed in home exercise program. - met Express Clerk Goals: To be met in 10 weeks [...] Please sign below. Date: documented in this encounterNorth Kansas City HospitalSqcnevxscz72-92-5234 History of Present illness Narrative* Adriana Barrios PT - 01/15/2025 2:00 PM EDT Physical Therapy Treatment Visit Patient Name: Mary [...] is helping more than OTC NSAID. Precautions: [place] Subjective: Pt states right shoulder not doing [...] PROM and gentle mobs in supine to rightshoulder to decrease pain and improve mobility Therapeutic [...] for right shoulder pain. Progressed exercises this datewith good pina. Will continue strengthening as pt tolerates. Outcome Measure: Upper Extremity Functional Index (UEFI): 47/80 Rehab Diagnosis: right shoulder pain and weakness; decrease strength and mobility Short Term Goal: To be met in 2 weeks Goal 1: Pt to be instructed in home exercise program. - met [facility] Goals: To be met in 10 weeks [...] Please sign below. Date: documented in this encounterNorth Kansas City HospitalIbvjiqrcio28-78-7417 History of Present illness Narrative* Adriana Barrios, PT - 01/08/2025 9:00 AM EDT Images from the original note [...] is helping more than OTC NSAID. Precautions: [place] Subjective: Pt states she was seen by [...] PROM and gentle mobs in supine to rightshoulder to decrease pain and improve mobility Therapeutic [...] Testing at 80 degrees elevation, pain with Pizraro Manfred testing. Speeds testing negative. Mild discomfort with empty can testing. No significant laxity with posterior and inferior glides. Strength right shoulder abduction 4/5 due to pain, supraspinatus 4-/5 due to pain (MMT performed in neutral). No significanttenderness right biceps tendon. Upper Extremity Functional Index (UEFI): 60/80. Outcome Measure: Upper Extremity Functional Index (UEFI): 47/80 Rehab Diagnosis: right shoulder pain and weakness; decrease strength and mobility Short Term Goal: To be met in 2 weeks Goal 1: Pt to be instructed in home exercise program. - met Mcc Goals: To be met in 10 weeks [...] Please sign below. 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 SUBJECTIVE: MEDICATIONS: [...] Stent LITHOTRIPSY OTHER SURGICAL HISTORY Jaw Surgery CT LAP,CHOLECYSTECTOMY 01/2010 SALPINGECTOMY 11/12/2022 TONSILLECTOMY family history [...] referral to Orthopaedic Surgery documented in this encounterNorth Kansas City HospitalLeusetncsn77-94-5010 Instructions* Patient Instructions* Gena Kirby NP - 01/07/2025 4:00 PM EDT Off work for another 4 weeks Refer to Ortho, if they do not call by end of week call office documented in this encounterNorth Kansas City HospitalVwdksksvuf46-56-7133 History of Present illness Narrative* Adriana Barrios, PT - 01/02/2025 3:30 PM EDT Images from the original note [...] is helping more than OTC NSAID. Precautions: [place] Subjective: States her follow up with was canceled. Was not sure if she was suppose to continue PT so missed last week. Next appointment with Dr office was rescheduled to 01/07. RTW is now expectedto be 01/08. Feels like shoulder has tightened [...] right shoulder in supine following session to addresspain Assessment: Pt has completed 7 PT sessions for right shoulder pain. Pt able to achieve full PROM ofright shoulder with pain at end ranges and [...] to be instructed in home exercise program. Mcc Goals: To be met in 10 weeks [...] Please sign below. Date: documented in this encounterNorth Kansas City HospitalPajqzgzszt21-45-3819 History of Present illness Narrative* Candace Jaquez, HOME SECURITY PROFESSIONAL - 12/25/2024 2:20 PM EDT Reason for Appointment: Patient ID: Mary Hewitt [...] Ambulatory Problems Diagnosis Date Noted Mixed hyperlipidemia ([facility]) 08/18/2023 Hypokalemia 08/24/2023 Hypertension ([facility]) 08/24/2023 Chronic diarrhea 08/24/2023 Anxiety state ([facility]) 10/13/2023 Bipolar II disorder ([facility]) 01/15/2022 Generalized anxiety disorder with panic attacks ([facility]) 01/15/2022 Depression with anxiety 10/13/2023 History of kidney stones 10/13/2023 DIONNE (obstructive sleep apnea) 01/15/2022 Thyroiditis 10/13/2023 Other specified hypothyroidism 10/19/2023 Abnormality of left breast on screening mammogram 12/07/2023 Microscopic colitis, unspecified ([facility]) 08/08/2023 Overactive bladder 01/25/2024 Bloating 01/25/2024 Overweight [...] risk for fall Condyloma Contraception management Depression ([facility]) Elevated prolactin level Elevated total protein Enlarged LA (left atrium) Enlarged LA (left atrium) History of migraine headaches HPV (human papilloma virus) infection Hyperlipidemia (CMS/HCC) Hypertriglyceridemia (CMS/[facility]) Hypertriglyceridemia (CMS/[facility]) Kidney stones Menopause Menopause Migraine headache (CMS/[facility]) Nonscarring hair loss Seasonal allergies Sleep apnea [...] atrium) Generalized anxiety disorder with panic attacks (CMS/[facility]) tiraled rexulti, latuda, and trazadone History of [...] Stent LITHOTRIPSY OTHER SURGICAL HISTORY Jaw Surgery CT LAP,CHOLECYSTECTOMY 01/2010 SALPINGECTOMY 11/12/2022 TONSILLECTOMY REVIEW OF [...] nursing note reviewed. Exam conducted with a alliance consultant present. Vitals: Estimated body mass index is [...] of: Oswald Harrington DO documented in this encounterNorth Kansas City [id number] History of Present illness Narrative* Candace Jaquez LPN - 12/11/2024 10:50 AM EDT Reason for Appointment: Patient ID: Mary Hewitt [...] Ambulatory Problems Diagnosis Date Noted Mixed hyperlipidemia (CMS/HCC) 08/18/2023 Hypokalemia 08/24/2023 Hypertension ([facility]) 08/24/2023 Chronic diarrhea 08/24/2023 Anxiety state ([facility]) 10/13/2023 Bipolar II disorder ([facility]) 01/15/2022 Generalized anxiety disorder with panic attacks ([facility]) 01/15/2022 Depression with anxiety 10/13/2023 History of kidney stones 10/13/2023 DIONNE (obstructive sleep apnea) 01/15/2022 Thyroiditis 10/13/2023 Other specified hypothyroidism 10/19/2023 Abnormality of left breast on screening mammogram 12/07/2023 Microscopic colitis, unspecified ([facility]) 08/08/2023 Overactive bladder 01/25/2024 Bloating 01/25/2024 Overweight [...] risk for fall Condyloma Contraception management Depression ([facility]) Elevated prolactin level Elevated total protein Enlarged LA (left atrium) Enlarged LA (left atrium) History of migraine headaches HPV (human papilloma virus) infection Hyperlipidemia ([facility]) Hypertriglyceridemia ([facility]) Hypertriglyceridemia ([facility]) Kidney stones Menopause Menopause Migraine headache ([facility]) Nonscarring hair loss Seasonal allergies Sleep apnea Tobacco user HISTORY PAST MEDICAL HISTORY SOCIAL HISTORY Past Medical History: Diagnosis Date Abnormal appearance of cervix Abnormal mammogram of both breasts Acute cystitis Allergies Amenorrhea Anxiety At low risk for fall Condyloma Contraception management Depression ([facility]) Elevated prolactin level Elevated total protein Enlarged [...] Stent LITHOTRIPSY OTHER SURGICAL HISTORY Jaw Surgery CT LAP,CHOLECYSTECTOMY 01/2010 SALPINGECTOMY 11/12/2022 TONSILLECTOMY REVIEW OF [...] nursing note reviewed. Exam conducted with a alliance consultant present. Vitals: Estimated body mass index is [...] to remove. Rx for flagyl faxed to pharmacy.Pt to return in 2 weeks for follow up on cyst on labia. Documented by Candace Jaquez LPN on behalf of: Oswald Harrington DO documented in this encounterNorth Kansas City HospitalKgcxfujjrf38-78-1136 History of Present illness Narrative* Adriana Barrios, PT - 12/10/2024 3:00 PM EDT Images from the original note [...] is helping more than OTC NSAID. Precautions: [place] Subjective: States right shoulder is gradually getting better. Will return to Dr on December 20 regarding possible return to work. Pain: 4/10 with activity Objective: PT Evaluation (11/26/2024) RIGHT [...] to be instructed in home exercise program. Express Clerk Goals: To be met in 10 weeks [...] Please sign below. Date: documented in this encounterNorth Kansas City HospitalRzokkwhesw22-36-3927 History of Present illness Narrative* Adriana Barrios, PT - 12/03/2024 4:00 PM EDT Images from the original note [...] is helping more than OTC NSAID. Precautions: [place] Subjective: No complaints following first session. States [...] minutes) Strength, Endurance, Flexibility, ROM, HEP, Neural Mobilization,Power, and Core Stability as needed. Pt performed exercises per grid to increase ROM and functionalmobility of right UE. Therapeutic Activity: Exercises to [...] right shoulder pain. Pt reports compliance with homeprogram. Pt able to achieve 128 degrees flexion [...] to be instructed in home exercise program. Express Clerk Goals: To be met in 10 weeks [...] Please sign below. Date: documented in this encounterNorth Kansas City HospitalZtfhyiwykf46-71-2989 History of Present illness Narrative* EVERETTE Ya - 11/22/2024 3:30 PM EDT Reason for Appointment: Patient ID: Mary Hewitt [...] Ambulatory Problems Diagnosis Date Noted Mixed hyperlipidemia ([facility]) 08/18/2023 Hypokalemia 08/24/2023 Hypertension (CMS/[facility]) 08/24/2023 Chronic diarrhea 08/24/2023 Anxiety state ([facility]) 10/13/2023 Bipolar II disorder ([facility]) 01/15/2022 Generalized anxiety disorder with panic attacks ([facility]) 01/15/2022 Depression with anxiety 10/13/2023 History of kidney stones 10/13/2023 DIONNE (obstructive sleep apnea) 01/15/2022 Thyroiditis 10/13/2023 Other specified hypothyroidism 10/19/2023 Abnormality of left breast on screening mammogram 12/07/2023 Microscopic colitis, unspecified (CMS/[facility]) 08/08/2023 Overactive bladder 01/25/2024 Bloating 01/25/2024 Overweight [...] Stent LITHOTRIPSY OTHER SURGICAL HISTORY Jaw Surgery CT LAP,CHOLECYSTECTOMY 01/2010 SALPINGECTOMY 11/12/2022 TONSILLECTOMY REVIEW OF [...] nursing note reviewed. Exam conducted with a alliance consultant present. Vitals: Estimated body mass index is [...] Drea Vick MA on behalf of: EVERETTE aY documented in this encounterNorth Kansas City HospitalQxheielvar34-45-4263 History of Present illness Narrative* Gena Kirby NP - 11/20/2024 5:14 PM EDTAssociated Problem(s): Acute pain of right shoulder Order PT, off work 4 weeks Fu then * LIDIA OLIVER - 11/20/2024 2:20 PM EDT Pt is still having dull and sharp pains in the left arm she is pointing to the deltoid muscle. She states that she has been babying it due to the pain. She has looked into PT * Gena Kirby NP - 11/20/2024 2:20 PM EDT Images from the original note [...] stiffness. Negative for back pain, joint swelling andmyalgias. Skin: Negative for rash and wound. Neurological: [...] Stent LITHOTRIPSY OTHER SURGICAL HISTORY Jaw Surgery CT LAP,CHOLECYSTECTOMY 01/2010 SALPINGECTOMY 11/12/2022 TONSILLECTOMY family history [...] referral to Physical Therapy documented [facility] this [facility]04-01-2025 Instructions* Patient Instructions* Gena Kirby NP - 11/20/2024 2:20 PM EDT Will order PT with [facility] in [place], they should call you Off of work for 4 [address] [facility]02-18-2025 History of Present illness Narrative* Gena Kirby NP - 10/09/2024 4:52 PM ESTAssociated Problem(s): Mixed hyperlipidemia (CMS/HCC) Cont statin Check labs yearly and prn dose changes * Gena Kirby NP - 10/09/2024 4:51 PM ESTAssociated Problem(s): Generalized anxiety disorder with panic attacks (CMS/HCC) Continue with psych * Gena Kirby NP - 10/09/2024 4:51 PM ESTAssociated Problem(s): Depression with anxiety Continue with Nixon and med adjustment * Gena Kirby NP - 10/09/2024 4:51 PM ESTAssociated Problem(s): UTI (urinary tract infection) Finish atb * Gena Kirby NP - 10/09/2024 4:51 PM ESTAssociated Problem(s): Nausea resolved * Gena Kirby NP - 10/09/2024 4:51 PM ESTAssociated Problem(s): Irritable bowel syndrome with diarrhea No longer having diarrhea Solid stools No acute abd pain Continue with GI * Gena Kirby NP - 10/09/2024 4:50 PM ESTAssociated Problem(s): Hypertension (CMS/HCC) Please check blood pressure daily and record DASH diet Limit caffeine Take medication as directed Contact office if chest pain, pressure, dizziness, shortness of breath, swelling legs Recommend slow position changes Current meds: atenolol * LIDIA OLIVER - 10/09/2024 3:20 PM EST Pt has a rash on her lower [...] stool today. No more lower back pain * Gena Kirby NP - 10/09/2024 3:20 PM EST Images from the original note [...] Laser Lithotripsy and left Ureteral Stent LITHOTRIPSY CT LAP,CHOLECYSTECTOMY 01/2010 SALPINGECTOMY 11/12/2022 family history includes [...] with psych Depression with anxiety Continue with Nixon and med adjustment Irritable bowel syndrome with diarrhea No longer having diarrhea Solid stools No acute abd pain Continue with GI Generalized abdominal pain - Primary Nausea resolved UTI (urinary tract infection) Finish atb documented in this [facility]02-18-2025 Instructions* Patient Instructions* Gena Kirby NP - 10/09/2024 3:20 PM EST No changes in meds Rash to face: try neosporin ointment or cream to face, also try cleansing with soap/water if not better let me know documented [facility]02-04-2025 History of Present illness Narrative* Gena Kirby NP - 09/25/2024 10:07 AM ESTAssociated Problem(s): Weakness generalized Seems to be getting stronger Will still go back and recheck her labs, check xray Possible flu/covid that may have started this all off on 09/14/24??? Off work from 09/18/24-09/30/24, with a RTW on 10/01/24 * Gena Kirby NP - 09/25/2024 10:04 AM ESTAssociated Problem(s): Irritable bowel syndrome with diarrhea Typically has diarrhea, and has been working with GI regarding this, CT abd/pelvis on 09/18/24 mod-large amount of stool present she has been told by GI to stop her lotronex . She is taking miralax and stool softeners, feels she has not had solid BM, mostly liquid twice a day Will recheck labs and xray abd * Gena Kirby NP - 09/25/2024 10:00 AM ESTAssociated Problem(s): Subacute cough Lungs clear and mucus is white, no atb Neg COVID/FLU * Gena Kirby NP - 09/25/2024 9:59 AM ESTAssociated Problem(s): Generalized abdominal pain Recheck xray Check labs Hx of UTI's and stones in the past, reviewed CT scan no stones, her urine sample: she was on her menses * LIDIA OLIVER - 09/25/2024 8:40 AM EST Pt states that last Friday 09/15 she started with nausea and dizziness. She states that she stayedin bed for three days due to dizziness [...] is also not taking anything else OTC * Gena Kirby, PHILLY - 09/25/2024 8:40 AM EST Images from the original note were not included. Isabelle Hewitt is a 49 y.o. female presents with chief complaint of Nausea HPI: Pt states that last Friday 09/15 she started with nausea and dizziness. She states that she stayedin bed for three days due to dizziness [...] Laser Lithotripsy and left Ureteral Stent LITHOTRIPSY CT LAP,CHOLECYSTECTOMY 01/2010 SALPINGECTOMY 11/12/2022 family history includes [...] from 09/18/24-09/30/24, with a RTW on 10/01/24 * Gena Kirby NP - 09/25/2024 6:18 AM ESTAssociated Problem(s): Generalized anxiety disorder with panic attacks (CMS/HCC) Continue with psych * Gena Kirby NP - 09/25/2024 6:18 AM ESTAssociated Problem(s): Bipolar II disorder (CMS/HCC) Continue with psych * Gena Kirby NP - 09/25/2024 6:18 AM ESTAssociated Problem(s): Hypertension (CMS/HCC) Please check blood pressure daily and record DASH diet Limit caffeine Take medication as directed Contact office if chest pain, pressure, dizziness, shortness of breath, swelling legs Recommend slow position changes Current meds: atenolol documented in this encounterNorth Kansas City HospitalIioyufpusq30-42-9051 Instructions* Patient Instructions* Gena Kirby NP - 09/25/2024 8:40 AM EST Recheck labs, check xray Off work with a RTW status of 10/01/24 documented in this encounterNorth Kansas City HospitalHyonbiacij22-58-5250 Telephone encounter Note* Telephone Encounter - Americo Zuleima - 09/04/2024 1:16 PM EST Pt states levothyroxine is going to be discontinued and pt needs something else. Please call [employer] customer service is [phone]. I think this could be a brand issue, but the patient isn't sure. Thanks! [place] HospitalSurcouffhz89-81-5108 Miscellaneous Notes* Telephone Encounter - Americo Zuleima - 09/04/2024 1:16 PM EST Pt states levothyroxine is going to be discontinued and pt needs something else. Please call [employer] customer service is [phone]. I think this could be a brand issue, but the patient isn't sure. Thanks! documented in this encounterNorth Kansas City HospitalOdqytyruhj11-65-2953 History of Present illness Narrative* EVERETTE Ya - 08/06/2024 3:40 PM EST Reason for Appointment: Patient ID: Mary Hewitt [...] Ambulatory Problems Diagnosis Date Noted Mixed hyperlipidemia ([facility]) 08/18/2023 Hypokalemia 08/24/2023 Hypertension ([facility]) 08/24/2023 Chronic diarrhea 08/24/2023 Anxiety state ([facility]) 10/13/2023 Bipolar II disorder ([facility]) 01/15/2022 Generalized anxiety disorder with panic attacks ([facility]) 01/15/2022 Depression with anxiety 10/13/2023 History of kidney stones 10/13/2023 DIONNE (obstructive sleep apnea) 01/15/2022 Thyroiditis ([facility]) 10/13/2023 Other specified hypothyroidism ([facility]) 10/19/2023 Abnormality of left breast on screening mammogram 12/07/2023 Microscopic colitis, unspecified ([facility]) 08/08/2023 Overactive bladder 01/25/2024 Bloating 01/25/2024 Overweight [...] risk for fall Condyloma Contraception management Depression ([facility]) Elevated prolactin level Elevated total protein Enlarged LA (left atrium) Enlarged LA (left atrium) History of migraine headaches HPV (human papilloma virus) infection Hyperlipidemia (CMS/[facility]) Hypertriglyceridemia ([facility]) Hypertriglyceridemia ([facility]) Kidney stones Menopause Menopause Migraine headache ([facility]) Seasonal allergies Sleep apnea Tobacco user HISTORY PAST MEDICAL HISTORY SOCIAL HISTORY Past Medical History: Diagnosis Date Abnormal appearance of cervix Abnormal mammogram of both breasts Acute cystitis Allergies Amenorrhea Anxiety At low risk for fall Condyloma Contraception management Depression ([facility]) Elevated prolactin level Elevated total protein Enlarged LA (left atrium) Enlarged LA (left atrium) Generalized anxiety disorder with panic attacks ([facility]) tiraled rexulti, latuda, and trazadone History of kidney stones History of migraine headaches HPV (human papilloma virus) infection Hyperlipidemia ([facility]) Hypertension ([facility]) 08/24/2023 Hypertriglyceridemia ([facility]) Hypertriglyceridemia ([facility]) Hypokalemia 08/24/2023 Kidney stones Menopause Menopause Migraine headache ([facility]) Mixed hyperlipidemia ([facility]) 08/18/2023 Seasonal allergies Shingles 04/17/2024 Sleep apnea Thyroiditis ([facility]) 10/13/2023 Tobacco user Social History Tobacco Use [...] Laser Lithotripsy and left Ureteral Stent LITHOTRIPSY CT LAP,CHOLECYSTECTOMY 01/2010 SALPINGECTOMY 11/12/2022 REVIEW OF SYSTEMS [...] behalf of: EVERETTE Ya documented in this encounterNorth Kansas City HospitalJdeztuyupr27-86-1894 Evaluation note* Diagnosis Onset Date Resolution Status Admit Date BMI 27.0-27.9,adult acute Decem 2023 11:34am Edentulous acute July 31, 2024 11:34am Encounter for adjustment and management of other implanted nervous system d acute July 31, 2024 11:34am Obstructive sleep apnea (adult) (pediatric) acute July 11:34am S/P placement of hypoglossal nerve stimulator acute July 31, 2024 11:34am BMI 27.0-27.9,adult acute 2024 9:47am Edentulous acute September 04, 2024 9:47am Encounter for adjustment and management of other implanted nervous system d acute September 04, 2 025 9:47am Obstructive sleep apnea (adult) (pediatric) acute August 9:47am S/P placement of hypoglossal nerve stimulator acute September 04, 2 025 9:47am Irritable bowel syndrome wit h diarrhea acute September 10 3:11pm Constipation acute October 23, 2 025 3:19pm [facility] Work Phone: 1(645) 201-144111-22-2024 Evaluation note* Diagnosis Onset Date Resolution Status [...] implanted nervous system d acute September 04, 2 025 9:47am Obstructive sleep apnea (adult) (pediatric) acute August 9:47am S/P placement of hypoglossal nerve stimulator acute September 04, 2 025 9:47am Irritable bowel syndrome wit h diarrhea acute September 10 3:11pm [facility] Work Phone: [phone] History of Present illness Narrative* Gena Kirby NP - 06/19/2024 4:54 PM EDTAssociated Problem(s): Bipolar II disorder (CMS/HCC) Continue with psych * Gena Kirby [...] since 06/11/24 No other changes * Gena Kirby NP - 06/19/2024 3:20 PM EDT [...] Laser Lithotripsy and left Ureteral Stent LITHOTRIPSY CT LAP,CHOLECYSTECTOMY 01/2010 SALPINGECTOMY 11/12/2022 family history includes [...] metformin for weight loss documented in this encounterNorth Kansas City HospitalSgibsyeebf58-54-7463 Evaluation note* Diagnosis Onset Date Resolution Status [...] 11:34am Obstructive sleep apnea (adult) (pediatric) acute July, 2023 11:34am S/P placement of hypoglossal nerve stimulator acute July 31, 2024 11:34am [facility] Work Phone: [phone]) 890-404309-11-2024 History of Present illness Narrative* Gena Kirby NP - 05/02/2024 4:48 PM EDTAssociated Problem(s): Acute URI I would recommend at home covid test Did recently have shingles as well, so would be immune compromised She already spoke with DENTAL RECEPTIONIST at [facility], they sent her in augmentin [...] tre last night and talked to a DENTAL RECEPTIONIST who believes with her symptoms she mayhave [...] runny nose and stuffy nose, sinus pressure, DENTAL RECEPTIONIST prescribed benzonates 200mg, nasal spray, amoxicillin 875mg potassium clavulanate 125mg tab Diagnosis of sinusitis * Gena Kirby NP - 05/02/2024 3:20 PM EDT [...] Laser Lithotripsy and left Ureteral Stent LITHOTRIPSY CT LAP,CHOLECYSTECTOMY 01/2010 SALPINGECTOMY 11/12/2022 family history includes [...] be immune compromised She already spoke with DENTAL RECEPTIONIST at [facility], they sent her in augmentin and tessalon for sinusitis, which could also be going on, however I did ask she do at home covid test She missed work today, and she is asking for a work note, her employer requires her to completed sick leave for period of 8 days. Off 05/02/24-05/09/24 w RTW on 05/10/24 documented in this encounterNorth Kansas City HospitalZubulnrago96-93-3847 History of Present illness Narrative* Gena Kirby [...] Laser Lithotripsy and left Ureteral Stent LITHOTRIPSY CT LAP,CHOLECYSTECTOMY 01/2010 SALPINGECTOMY 11/12/2022 family history includes [...] 04/26/24 Fu if needed documented in this encounterNorth Kansas City HospitalDkvblnllvd27-68-0635 Evaluation note* Author Majo Lyman [facility] Authored March 13, 2024 4:17 pm Patient's symptoms have impr rizwana with recommendation of dicyclomine and dietary changes. Patient has yet to complete bowel cleanout due to large stool burden noted on KUB this is also recommended. Patient negative for other GI symptoms at this time [facility] Work Phone: [phone]) 688-941101-30-2024 Evaluation note* Encounter Date Diagnosis Assessment Notes [...] improve even to the point of resolution, [facility] Other [facility]* Encounter Date Diagnosis Assessment [...] COLONOSCOPY. Jun, Fecal urgency (ICD-10 - R15.2) [facility] Other 10-17-2023 Evaluation note* Encounter Date Diagnosis [...] (suspected) exposure to covid-19 (ICD-10 - Z20.822) [facility] Other [id number] Telephone encounter Note* Telephone Encounter - Rikki Rodrigues DMD, MD - 01/26/2023 10:18 AM EDT Called and left voicemail for patient. Post-op Home Sleep Test reviewed from [facility], and there is considerable improvement. Pre-op AHI is 102, now down to 31. Pre-op O2 Carlene of 71%, now up to 82%. However, still with considerable desat time. There are notes from Dr. Moreno evaluating for INSPIRE I presume, but nothing since November. Asked patient for call back or Wine[employer]oph[employer] message with if she has been able to continue with Dr. Moreno at his new office, or if she needs referral to another [facility]. -[facility] Contactually Work Phone: [phone] Miscellaneous Notes* Telephone Encounter - Rikki Rodrigues DMD, MD - 01/26/2023 10:18 AM EDT Called and left voicemail for patient. Post-op Home Sleep Test reviewed from [facility], and there is considerable improvement. Pre-op AHI [...] or [facility] documented in this [id number] NoteOPERATIVE NOTE OPERATION DATE: 11/12/2022 PROCEDURE: Robotic assisted laparoscopic salpingectomy. PREOPERATIVE DIAGNOSIS: Multiparity, desires permanent sterilization. POSTOPERATIVE DIAGNOSIS: Multiparity, desires permanent sterilization. ANESTHESIA: General. SURGEON: Oswald Harrington D.O. PACKAGE SEALER: VIRAJ Salazar URINE OUTPUT: Yellow and clear. [...] lap and needle counts were correct x2.[facility] HospitalHkwtjmgg61-45-4143 Telephone encounter Note* Telephone Encounter - Tatiana Morris - 11/04/2022 3:51 PM EDT Opened in error [id number] Miscellaneous Notes* Telephone Encounter - Tatiana Morris - 11/04/2022 3:51 PM EDT Opened in error documented in this [id number] Telephone encounter Note* Telephone Encounter - Rikki Rodrigues DMD, MD - 11/01/2022 2:32 PM EDT Called patient and left voicemail. Advised that order for post-op PSG was faxed to [facility]. Left number to call to schedule study at her convenience ([phone]) [facility] Work Phone: [phone] Miscellaneous Notes* Telephone Encounter - Rikki Rodrigues DMD, MD - 11/01/2022 2:32 PM EDT Called patient and left voicemail. Advised that order for post-op PSG was faxed to [facility]. Left number to call to schedule study at her convenience ([phone]) documented in this [id number] History general Narrative - Reported* Type Description [...] counseling for depression, anxiety Hospitalization History dehydration [facility] Other [id number] History of Present illness Narrative* Rikki Rodrigues [...] -Complete sleep study with Dr. Mcmanus in [place], [place] in 1.5 months -Follow up with patient's general dentist, Sinan Jones DDS for denture adjustment Follow-Up: After new sleep study Follow up sooner with new or worsening symptoms. Sinan Jones DDS [place] [address] [place] [address] Wiley Mcmanus MD [facility] [address] [place], [place] [id number] Seferino Vaz DMD [facility] Resident documented in this [id number] Instructions* Patient Instructions* Wilfredo Vang DMD - 08/30/2022 12:07 PM EST With clean hands massage gums under your upper lip daily at night time No food restrictions Follow up with your dentist We will contact your Sleep Center in [place] to have a Sleep Study completed in 1.5 months. documented in this [id number] Instructions* Patient Instructions* Wilfredo Vang DMD - 08/30/2022 12:07 PM EST With clean hands massage gums under your upper lip daily at night time No food restrictions Follow up with your dentist We will contact your Sleep Center in [place] to have a Sleep Study completed in 1.5 months. documented in this [id number] History of Present illness Narrative* Seferino Vaz [...] -Complete sleep study with Dr. Mcmanus in [place], [place] in 1.5 months -Follow up with patient's general dentist, Sinan Jones DDS for denture adjustment Follow-Up: PRN Follow up sooner with new or worsening symptoms. Sinan Jones DDS [place] [address] [place] [address] Wiley Mcmanus MD [facility] [address] [place], [place] [id number] Seferino Vaz DMD FS Resident documented in this [id number] Telephone encounter Note* Telephone Encounter - Jerel [...] Jerel Villegas DDS, MD FS- PGY4 [phone] [facility] Work Phone: [phone] Miscellaneous Notes* Telephone Encounter - Jerel Villegas [...] at this number. Jerel Villegas DDS, MD [facility]- PGY4 [phone] documented in this [id number] Telephone encounter Note* Telephone Encounter - Oliver Rogers DMD - 08/02/2022 4:26 PM EST Called pt. No answer. LVM with callback instructions. Per Dr. Rodrigues, we will not write any work excuse notes or prescribe any pain meds until pt is seenin person for follow up. Oliver Rogers DMD [facility] Work Phone: [phone] Miscellaneous Notes* Telephone Encounter - Oliver Rogers [...] options if that is the case. Email: @Apruve Contact pt @[phone] for questions/concerns documented in this [id number] Telephone encounter Note* Telephone Encounter - Zayda [...] options if that is the case. Email: @Apruve Contact pt @[phone] for questions/concerns [id number] Telephone encounter Note* Telephone Encounter - Mikal [...] Oral & Maxillofacial Surgery, PGY-3 Team Pager: [phone] [facility] Work Phone: [phone] Miscellaneous Notes* Telephone Encounter - Mikal Rodgers [...] Oral & Maxillofacial Surgery, PGY-3 Team Pager: [phone] documented in this [id number] History of Present illness Narrative* Mikal Rodgers [...] Oral & Maxillofacial Surgery, PGY-3 Team Pager: [phone] documented in this [id number] History of Present illness Narrative* Saleem Mi DMD - 07/19/2022 8:28 AM EST Images from the original note were not included. Initial pre-surgical workup photos: documented in this [id number] Note* Care Plan Note - Penny Brown [...] provided. Patient discharged home with family member. [id number] Miscellaneous Notes* Care Plan Note - Penny [...] year old female Surgical Contact Serial Number: [id number] Preoperative Diagnosis: DIONNE (obstructive sleep apnea) [G47.33] Postoperative Diagnosis: * DIONNE (obstructive sleep apnea) [G47.33] Procedures: Surgical CPTs Procedures RECONSTRUCTION MIDFACE, LEFORT I; 1 PIECE, W/O BONE GRAFT RECONSTRUCTION, MANDIBULAR RAMI &/OR BODY, SAGITTAL SPLIT; W/INT RIGID FIXATION No data filed Surgeon(s): Surgeon(s): Rikki Rodrigues DMD, MD Staff: Scrub: Annelise Saeed RN; Babs Wells RN Glass Blower Helper Nurse: Stephanie Brannon RN; Babs Wells RN Student Teacher: Margot Ovalles DDS; Saleem Mi DMD Anesthesia: [...] were discussed with the patient and/or legal member services representative. The risks, benefits and alternatives were reviewed. Questions regarding blood transfusions were answered. The patient /or the patient s legal member services representative agree with the plan for transfusion of blood and/or blood components. * Anesthesia Attestation - Mark Atwood MD - 07/14/2022 7:06 AM EST Anesthesia Attestation ATTESTATION OF INFORMED CONSENT FOR ANESTHESIA Anesthesia options were discussed with the patient and/or legal member services representative. The risks, benefits and alternatives were reviewed. Questions regarding anesthesia were answered. Patient and/or legal member services representative knows such anesthetics and procedures may be performed by Resident physicians, Certified Anesthesiologist Assistants, or Certified Nurse Anesthetists under the supervision of a physician. The patient /or the patient s legal representativeagree with the plan for anesthesia. documented in this [id number] NoteDISCHARGE SUMMARY [address] [address] Isabelle Hewitt Date of : 1975 47 [...] 07/23/2022 2:30 PM Rikki Rodrigues DMD, MD [facility] 10/19/2022 8:45 AM Yi Moreno [address] [facility] ENT [facility] Click the Form Tab Reason [...] of concern and please page the resident equipment validation specialist Do not blow your nose for 2 [...] can. Rinse your (more content not included)...The Contactually [id number] Note OMFS PROGRESS NOTE Isabelle Hewitt is [...] oxymetazoline (AFRIN) 0.05 % nasal solution 2 [place] Nasal Q4H PRN sodium chloride (OCEAN) 0.65 % nasal spray 1 [place] Nasal Q1H PRN naloxone (NARCAN) 0.4 MG/ML [...] to be discharged to follow up with [facility] clinic.[facility] [id number] Hospital Discharge instructions* Discharge Instructions* Oliver Rogers DMD - 07/17/2022 9:34 AM EST STEAM PRESSURE CHAMBER OPERATOR DISCHARGE INSTRUCTIONS MEDICATIONS Pain medication should [...] of concern and please page the resident equipment validation specialist Do not blow your nose for 2 [...] weeks until the bones heal QUESTIONS/CONCERNS Call paster operator Office [phone] documented in this [id number] History of Present illness Narrative* Wilfredo Vang DMD - 07/17/2022 8:58 AM EST Images from the original note were not included. [facility] PROGRESS NOTE Isabelle Hewitt is a 47 [...] oxymetazoline (AFRIN) 0.05 % nasal solution 2 [place] Nasal Q4H PRN sodium chloride (OCEAN) 0.65 % nasal spray 1 [place] Nasal Q1H PRN naloxone (NARCAN) 0.4 MG/ML [...] to be discharged to follow up with [facility] clinic. * Lola Wyatt RN - 07/16/2022 [...] oxymetazoline (AFRIN) 0.05 % nasal solution, 2 [place], Nasal, Q4H PRN, Oliver Rogers, DMD sodium chloride (OCEAN) 0.65 % nasal spray, 1 [place], Nasal, Q1H PRN, Oliver Rogers, DMD naloxone [...] mg, Oral, Q6H PRN, Oliver Rogers, DMD oxyCODONE immediate release tablet, 5 mg, Oral, Q4H PRN, Oliver Rogers, DMD oxyCODONE immediate release tablet, 10 mg, Oral, Q4H PRN, Oliver Rogers, DMD, 10 mg at 07/15/22 0346 dexamethasone (DECADRON) 4 MG/ML injection, 8 mg, Intravenous Push, Every 8 hours, Oliver Rogers, DMD, 8 mg at 07/15/22 0109 ondansetron (ZOFRAN) 4 MG/2ML injection, 4 mg, Intravenous Push, Q6H PRN, Oliver Rogers, CHAU docusate sodium (COLACE) capsule, 100 mg, Oral, 2x Daily, Oliver Rogers, CHAU bisacodyl (DULCOLAX) 5 MG enteric coated tablet, 10 mg, Oral, Daily PRN, Oliver Rogers, CHAU oxymetazoline (AFRIN) 0.05 % nasal solution, 2 [place], Nasal, Q4H PRN, Oliver Rogers, CHAU sodium chloride (OCEAN) 0.65 % nasal spray, 1 [place], Nasal, Q1H PRN, Oliver Rogers, CHAU enoxaparin (LOVENOX) 40 MG/0.4ML injection 40 mg, [...] discussed. Zehra Stearns MD documented in this [id number] Note* Care Plan Note - Penny Brown [...] adult patient will be met Outcome: Progressing [id number] Note* Care Plan Note - Lauren Crawford [...] adult patient will be met Outcome: Progressing [id number] Note* Care Plan Note - Alon Cotton [...] monitoring. Patient free of falls/injuries during shift. [id number] History and physical note* Zehra Stearns MD - 07/14/2022 3:58 PM EST Images from the original note were not included. Surgical ICU H&P Isabelle Hewitt [id number] HPI: Ms Hewitt is a 47 year [...] Clifford Cruz MD PGY-5 Radiology SICU Pager [phone] [facility] Surgery Pager [phone], Weekdays 6a-6p [place] Pager [phone], Weekdays 6p-6a, weekends Attending Attestation I saw [...] stepdown for airway monitoring. Zehra Stearns MD [id number] History and physical note* Zehra Stearns MD - 07/14/2022 3:58 PM EST Images from the original note were not included. Surgical ICU H&P Isabelle Hewitt [id number] HPI: Ms Hewitt is a 47 year [...] Clifford Cruz MD PGY-5 Radiology SICU Pager [phone] [facility] Surgery Pager [phone], Weekdays 6a-6p [place] Pager [phone], Weekdays 6p-6a, weekends Attending Attestation I saw [...] Yes Saleem Mi DDS documented in this [id number] NoteSurgical Attestation: I have reviewed the patient's History and Physical Examination. I have personally seen and evaluated the patient, repeating ulloa portions. There is no significant interval change. Surgery is still indicated. Yes Consent reviewed and signed by patient/family: Yes Operative site verified: Yes [facility] [id number] Note* Brief Operative Note - Rikki Rodrigues DMD, MD - 07/14/2022 8:30 AM EST Brief Operative Note MAIN OR 12 Isabelle Hewitt 47 year old female Surgical Contact Serial Number: [id number] Preoperative Diagnosis: DIONNE (obstructive sleep apnea) [G47.33] Postoperative Diagnosis: * DIONNE (obstructive sleep apnea) [G47.33] Procedures: Surgical CPTs Procedures RECONSTRUCTION MIDFACE, LEFORT I; 1 PIECE, W/O BONE GRAFT RECONSTRUCTION, MANDIBULAR RAMI &/OR BODY, SAGITTAL SPLIT; W/INT RIGID FIXATION No data filed Surgeon(s): Surgeon(s): Rikki Rodrigues DMD, MD Staff: Scrub: Annelise Saeed RN; Babs Wells RN Glass Blower Helper Nurse: Stephanie Brannon RN; Babs Wells RN Student Teacher: Margot Ovalles DDS; Saleem Mi DMD Anesthesia: [...] Rikki Rodrigues DMD, MD 07/14/2022 12:58 PM [place] [address] Work Phone: [phone] History and physical note* Saleem Mi DMD - 07/14/2022 7:13 AM EST Surgical Attestation: I have reviewed the patient's History and Physical Examination. I have personally seen and evaluated the patient, repeating ulloa portions. There is no significant interval change. Surgery is still indicated. Yes Consent reviewed and signed by patient/family: Yes Operative site verified: Yes Saleem Mi DDS [place] [address] Work Phone: [phone]) 824-196411-23-2022 Note* Blood Attestation - Mark Atwood MD - 07/14/2022 7:06 AM EST Blood Attestation ATTESTATION OF INFORMED CONSENT FOR BLOOD The transfusion of blood and/or blood components were discussed with the patient and/or legal member services representative. The risks, benefits and alternatives were reviewed. Questions regarding blood transfusions were answered. The patient /or the patient s legal member services representative agree with the plan for transfusion of blood and/or blood components. [place] [address] Work Phone: [phone]) 785-623211-23-2022 Note* Anesthesia Attestation - Mark Atwood MD - 07/14/2022 7:06 AM EST Anesthesia Attestation ATTESTATION OF INFORMED CONSENT FOR ANESTHESIA Anesthesia options were discussed with the patient and/or legal member services representative. The risks, benefits and alternatives were reviewed. Questions regarding anesthesia were answered. Patient and/or legal member services representative knows such anesthetics and procedures may be performed by Resident physicians, Certified Anesthesiologist Assistants, or Certified Nurse Anesthetists under the supervision of a physician. The patient /or the patient s legal representativeagree with the plan for anesthesia. [id number] Telephone encounter Note* Telephone Encounter - Latoya Manzo RN - 07/09/2022 3:43 PM EST 1541: Contacted pt and informed her to call the ENT office to schedule appt with Dr Hermes monroy/vishal jaw surgery in about 3 months due to healing time. Pt verbalized understanding. Latoya Manzo RN [id number] Miscellaneous Notes* Telephone Encounter - Latoya Manzo [...] step is for after the surgery. PT: [phone] Gus Luz documented in this [id number] Telephone encounter Note* Telephone Encounter - Nicole Diaz - 07/09/2022 2:[address] Joel, Patient calling stating that she is going forward with the jaw surgery that you recommended next 07/14/22. Patient would like to know what the next step is for after the surgery. PT: [phone] Gus Luz [facility] Work Phone: 1([phone] 391-234811-17-2022 Instructions* Patient Instructions* Gena Holbrook APRN-CNP - [...] for pain Please hold all Vitamin E, [place] 3, fish oil and herbal supplements for 1 week prior to surgery documented in this [id number] Note* PSE Appt H&P - Edwina Daniel - 07/08/2022 1:59 PM EST Patient was identified by name and date of . Edwina Daniel Bill of rights provided to patient [id number] Miscellaneous Notes* PSE Appt H&P - Edwina Daniel - 07/08/2022 1:59 PM EST Patient was identified by name and date of . Edwina Daniel Bill of rights provided to patient * PSE Appt H&P - Gena Holbrook, KATHRIN-MS SQL SERVER DEVELOPER - 07/07/2022 4:03 PM EST Presurgical Evaluation Isabelle Hewitt, [id number] 47 year old Female 07/08/2022 BP 122/80 [...] Yes Does not use CPAP PS12/17/2021 at [facility] RESPIRATORY DATA INTEGRITY: Respiratory data [...] Arredondo 4:25 PM 07/08/2022 documented in this [id number] NotePresurgical Evaluation Isabelle Hewitt, [id number] 47 year old Female 07/08/2022 BP 122/80 [...] Yes Does not use CPAP PS12/17/2021 at [facility] RESPIRATORY DATA INTEGRITY: Respiratory data [...] grossly intact Psychia (more content not included)...The Contactually [id number] Note* PSE Appt H&P - Gena Holbrook APRN-BRIAN - 07/07/2022 4:03 PM EST Presurgical Evaluation Isabelle Hewitt, [id number] 47 year old Female 07/08/2022 BP 122/80 [...] six months. No STOP-BANG Row Name 07/07/22 1602 History of sleep apnea? Yes Does not use CPAP PS12/17/2021 at [facility] RESPIRATORY DATA INTEGRITY: Respiratory data [...] Interviewer signature: ARTURO Arredondo 4:25 PM 07/08/2022 [id number] NotePatient is vaccinated for COVID-19. Vaccinations are documented in Epic. Patient does not require pre-op COVID testing per current guidelines.The Contactually [id number] Telephone encounter Note* Telephone Encounter - Mary Dennis RN - 07/05/2022 8:53 PM EST Patient is vaccinated for COVID-19. Vaccinations are documented in Epic. Patient does not require pre-op COVID testing per current guidelines. [id number] Miscellaneous Notes* Telephone Encounter - Mary Dennis RN - 07/05/2022 8:53 PM EST Patient is vaccinated for COVID-19. Vaccinations are documented in Epic. Patient does not require pre-op COVID testing per current guidelines. documented in this [id number] Note* PSE Appt H&P - Pierce Ramos APRN-CNP - 07/05/2022 12:06 PM EST Error Contactually Work Phone: [phone] 159-204711-14-2022 Miscellaneous Notes* PSE Appt H&P - Pierce Ramos APRN-CNP - 07/05/2022 12:06 PM EST Error documented in this [id number] History of Present illness Narrative* Seferino Vaz DMD - 07/02/2022 11:00 AM EST ORAL SURGERY CLINIC FOLLOW UP VISIT Patient was seen in the [facility] clinic for alginate impressions of the edentulous maxilla and CBCT with denture in place. Seferino Vaz DMD [facility] Resident ms. documented in this [id number] History of Present illness Narrative* Rikki Rodrigues DMD, MD - 06/18/2022 4:17 PM EDT Images from the original note were not included. OMFS PATIENT VISIT CHIEF COMPLAINT: sleep apnea HISTORY OF PRESENT ILLNESS: Patient presents for evaluation for surgical treatment of DIONNE. She is extremely symptomatic from her DIONNE, and suffers from CPAP intolerance. [place] sleepiness scale is 18. Patient is starting [...] on 06/18/2022, and Digital version in Dentistry [employer]rix system. Airway measurements are very small compared to norms. Retrognathic mandible. DIAGNOSIS: Obstructive sleep apnea [706436] TREATMENT: Exam, Panorex evaluated, and pictures/models taken [...] Rikki Rodrigues DMD, MD documented in this [id number] History of Present illness Narrative* Margot Ovalles, DDS - 06/18/2022 4:17 PM EDT Images from the original note were not included. OMFS PATIENT VISIT CHIEF COMPLAINT: sleep apnea HISTORY OF PRESENT ILLNESS: Patient presents for evaluation for surgical treatment of DIONNE. She is extremely symptomatic from her DIONNE, and suffers from CPAP intolerance. [place] sleepiness scale is 18. Patient is starting [...] norms. Retrognathic mandible. DIAGNOSIS: Obstructive sleep apnea [673559] TREATMENT: Exam, Panorex evaluated, and pictures/models taken [...] Rikki Rodrigues DMD, MD documented in this [id number] Instructions* Patient Instructions* Rikki Rodrigues DMD, MD [...] fatigue and inconsistent sleep. documented in this [id number] NoteSurgical Attestation: I have reviewed the patient's History and Physical Examination. I have personally seen and evaluated the patient, repeating ulloa portions. There is no significant interval change. Surgery is still indicated. Yes Consent reviewed and signed by patient/family: Yes Operative site verified and marked: site verified but not marked as not anatomically possible Ryann Brown PA-C 06/03/2022 11:55 AMThe [facility] Casbxw77-65-1603 Evaluation note* Encounter Date Diagnosis Assessment Notes Treatment Notes Treatment Clinical Notes May, Encounter for screening for other viral diseases (ICD-10 - Z11.59) [facility] Other 10-07-2022 Note* PSE Call H&P - Rose Brown RN - 05/28/2022 9:42 AM EDT Images from the original note were not included. Telephone History Isabelle Hewitt, [id number] 05/28/2022 47 year old 190 lbs 5' [...] pain. Do not take any Vitamin E, [place] 3, fish oils, herbal medications 7 days [...] morning of surgery,does not use CPAP Rose Kevin, RN Time Spent Performing this Telephone History: 30 minutes [id number] Miscellaneous Notes* PSE Call H&P - Rose Brown RN - 05/28/2022 9:42 AM EDT Images from the original note were not included. Telephone History Isabelle Hewitt, [id number] 05/28/2022 47 year old 190 lbs 5' [...] pain. Do not take any Vitamin E, [place] 3, fish oils, herbal medications 7 days [...] Telephone History: 30 minutes documented in this [id number] Telephone encounter Note* Telephone Encounter - Mary Dennis RN - 05/28/2022 8:15 AM EDT Patient is scheduled for DISE on 06/03/2022. Prefers to complete pre-op COVID testing closer to home. Instructed to obtain testing 48-72 hours prior to surgery and bring copy of results on day of surgery. PSE contact information provided. [id number] Miscellaneous Notes* Telephone Encounter - Mary Dennis RN - 05/28/2022 8:15 AM EDT Patient is scheduled for DISE on 06/03/2022. Prefers to complete pre-op COVID testing closer to home. Instructed to obtain testing 48-72 hours prior to surgery and bring copy of results on day of surgery. PSE contact information provided. documented in this [id number] Telephone encounter Note* Telephone Encounter - Mary Dennis RN - 05/26/2022 9:16 PM EDT Arrangements to be made for pre-op COVID testing per ENT request. [id number] Miscellaneous Notes* Telephone Encounter - Mary Dennis RN - 05/26/2022 9:16 PM EDT Arrangements to be made for pre-op COVID testing per ENT request. documented in this [id number] Note* Addendum Note - Yi Moreno MD - 05/26/2022 5:25 PM EDTAddended by: YI MORENO on: 05/26/2022 05:25 PM Modules accepted: Orders [id number] Miscellaneous Notes* Addendum Note - Yi Moreno MD - 05/26/2022 5:25 PM EDTAddended by: YI MORENO on: 05/26/2022 05:25 PM Modules accepted: Orders documented in this [id number] History of Present illness Narrative* Yi Moreno MD - 03/29/2022 2:41 PM EDT Images from the original note were not included. .Documentation: Mode: Telephone Patient Home Phone: Patient Patient Cell Preferred phone: [phone] Consent: I confirmed patient understanding of the [...] on prior sleep endoscopy documented in this [id number] History of Present illness Narrative* Yi Moreno MD - 03/29/2022 2:41 PM EDT Images from the original note were not included. .Documentation: Mode: Telephone Patient Home Phone: Patient Patient Cell Preferred phone: [phone] Consent: I confirmed patient understanding of the [...] on prior sleep endoscopy documented in this [id number] Telephone encounter Note* Telephone Encounter - Tatiana [...] to turn it in is 03/19/22. PH#: [phone] [id number] Miscellaneous Notes* Telephone Encounter - Tatiana Morris [...] to turn it in is 03/19/22. PH#: [phone] documented in this [id number] Note* Care Plan Note - Iglesia Amin [...] will be met Outcome: Adequate for Discharge [id number] Miscellaneous Notes* Care Plan Note - Iglesia [...] year old female Surgical Contact Serial Number: [id number] Preoperative Diagnosis: DIONNE (obstructive sleep apnea) [G47.33] Postoperative Diagnosis: * DIONNE (obstructive sleep apnea) [G47.33] Procedures: Surgical CPTs Procedures PALATOPHARYNGOPLASTY No data filed Surgeon(s): Surgeon(s): Yi Moreno MD Staff: Scrub: Wiley Álvarez Glass Blower Helper Nurse: Mariaa Briseno; Dulce Allred; Babs Wells RN Student Teacher: Yi Piña MD; Unruly Biggs MD Anesthesia: Consult Anesthesiologist: Maite Youssef MD CAA: Mariaa Meneses CAA SCHOOL CROSSING GUARD SUPERVISOR: Cari Hurtado APRN-SCHOOL CROSSING GUARD SUPERVISOR Manager Production: Carol Barrera MD Anesthesia Student: Jr, Prema Specimen(s): ID Type Source Tests Collected by [...] Moreno MD - 02/25/2022 10:00 AM EDT [id number] Isabelle Hewitt 1975 @PATFNAME@ @PATIENTLASTNAME@ [id number] Preoperative diagnosis: 1. Obstructive sleep apnea 2. [...] were discussed with the patient and/or legal member services representative. The risks, benefits and alternatives were reviewed. Questions regarding anesthesia were answered. Patient and/or legal member services representative knows such anesthetics and procedures may [...] were discussed with the patient and/or legal member services representative. The risks, benefits and alternatives were reviewed. Questions regarding blood transfusions were answered. The patient /or the patient s legal member services representative agree with the plan for transfusion of blood and/or blood components. documented in this [id number] NoteOTOLARYNGOLOGY HEAD AND NECK SURGERY DAILY PROGRESS [...] course uncomplicated. Patient transferred to [facility] from PACU. Mild anxiety overnight. No desaturations and pain overall well controlled. Patient on 2L NC when seen in the AM - Wean nc as tolerated - Monitor PO - Restart home meds - Discharge home today as appropriate ENT [id number] [facility]07-08-2022 Note* Care Plan Note - Martínez Johnson [...] the patient will be met Outcome: Progressing [id number] NoteDISCHARGE SUMMARY [address] [address] Isabelle Hewitt Date of : 1975 46 [...] Your Medications These medications were sent to [facility] [place] - [address] [place] [address] acetaminophen 650 MG CR tablet methylPREDNISolone 4 [...] documented in the resident's note. [facility] Discharge instructions* Discharge Instructions* Unruly [...] shared with your regular doctor. Isabelle Vallejoravindra [facility] [employer] [facility] [address] Phone numbers Date of Procedure: 02/25/22 Physicians: Dr. Yi Moreno (ENT) Admission Date: 02/25/2022 7:49 AM Discharge Date: No discharge date for patient encounter. Disposition: Home Home Care Agency: none Procedure that was performed: Uvulopalatopharyngoplasty (UPPP) Pending results: No pathology specimen was sent Call [phone] during regular daytime business hours (8:00 am - 5:00 pm) and after 5:00 pm call [phone] and ask to speak with the ENT Resident Heel Nailing Machine Operator with any questions or concerns. If it is a life-threatening situation, proceed to the nearest emergency department. Your Follow-up Appointment(s) Future Appointments Date Time Provider Department Center 03/29/2022 3:15 PM Yi Moreno MD [facility] Location: [facility] ([facility] [place]) [address] [place] [address] ([phone]) Thank you for the opportunity to care [...] a stool softener, they may be purchased lgne-mps-qisepoa at any local drugstore. Signs of Infection Signs of infection can include fever, excessive swelling, heat, drainage, redness, or severe pain. If you see any of these occur, please contact your doctor's office at [phone]. Any fever higherthan 100.4, especially if associated [...] opioids can be used to help relieve auyvrwhl-vg-dkuzdq pain and are often prescribed following a [...] or Mental Health Mobile Crisis Help Line [phone] Narcotics Anonymous Center for Disease Control and Prevention www.cdc.gov 211 First Call For Help (14/03) 2-1-1 from phone OR [employer] Falls Prevention Each year, 1 in every 3 adults over the age of 65 are treated for fall-related injuries. The risk of falling increases with each decade of life. The good news is, many falls are preventable. Here are some fall prevention tips: Exercise can increase strength and improve balance, making falls much less likely. For more informati on visit: http://[facility].org/services/myem-haheqd-vn-your-health/a-matte s-ii-thflazg/ Some medications or combinations of medications can [...] Written by the doctors and editors at [facility] What are the benefits of exercise? -- [...] of movement, like short walks or doing instructional materials director, can help improve your health. What else [...] process is complete. This topic retrieved from [employer] on: Mar 19, 2020. Topic 45159 Version 20.0 Release: 28.4.6 - C28.294 2019 [employer] and/or its affiliates. All rights reserved. Consumer [...] that is right for you.The use of [employer] content is governed by the [employer] Terms of Use. 2020 [employer]. All rights reserved. Copyright 2020 [employer] and/or its affiliates. All rights reserved. Reviewed April 2020 documented in this [id number] Note* Care Plan Note - Ashvin Mims [...] the patient will be met Outcome: Progressing [id number] NoteAddendum created 02/25/22 1219 by Mariaa Meneses CAA Intraprocedure Staff editedThe [facility]07[facility] History of Present illness Narrative* Ailyn Son [...] no areas of redness. documented in this [id number] NoteSurgical Attestation: I have reviewed the patient's History and Physical Examination. I have personally seen and evaluated the patient, repeating ulloa portions. There is no significant interval change. Surgery is still indicated. Yes Consent reviewed and signed by patient/family: Yes Operative site verified and marked: Yes Yi Moreno MD 02/25/2022 8:56 AMThe [facility] Note* Brief Operative Note - Yi Moreno MD - 02/25/2022 10:00 AM EDT Brief Operative Note MAIN OR 11 Isabelle Hewitt 46 year old female Surgical Contact Serial Number: [id number] Preoperative Diagnosis: DIONNE (obstructive sleep apnea) [G47.33] Postoperative Diagnosis: * DIONNE (obstructive sleep apnea) [G47.33] Procedures: Surgical CPTs Procedures PALATOPHARYNGOPLASTY No data filed Surgeon(s): Surgeon(s): Yi Moreno MD Staff: Scrub: Wiley Álvarez Glass Blower Helper Nurse: Mariaa Briseno; Dulce Allred; Babs Wells RN Student Teacher: Yi Piña MD; Unruly Biggs MD Anesthesia: Consult Anesthesiologist: Maite Youssef MD CAA: Mariaa Meneses CAA SCHOOL CROSSING GUARD SUPERVISOR: Cari Hurtado APRN-SCHOOL CROSSING GUARD SUPERVISOR Manager Production: Carol Barrera MD Anesthesia Student: Prema Norris [...] by Yi Moreno MD 02/25/2022 10:40 AM [id number] Note* OP Note - Yi Moreno MD - 02/25/2022 10:00 AM EDT [id number] Isabelle Hewitt 1975 @PATFNAME@ @PATIENTLASTNAME@ [id number] Preoperative diagnosis: 1. Obstructive sleep apnea 2. [...] taken back to recovery in stable condition. [id number] History and physical note* Yi Moreno MD [...] Yes Yi Moreno MD 02/25/2022 8:56 AM [id number] History and physical note* Yi Moreno MD [...] MD 02/25/2022 8:56 AM documented in this [id number] Note* Anesthesia Attestation - Maite Youssef MD - 02/25/2022 8:52 AM EDT Anesthesia Attestation ATTESTATION OF INFORMED CONSENT FOR ANESTHESIA Anesthesia options were discussed with the patient and/or legal member services representative. The risks, benefits and alternatives were reviewed. Questions regarding anesthesia were answered. Patient and/or legal member services representative knows such anesthetics and procedures may be performed by Resident physicians, Certified Anesthesiologist Assistants, or Certified Nurse Anesthetists under the supervision of a physician. The patient /or the patient s legal representativeagree with the plan for anesthesia. Contactually Work Phone: 1(997) 641-232207-07-2022 Note* Blood Attestation - Maite Youssef MD - 02/25/2022 8:52 AM EDT Blood Attestation ATTESTATION OF INFORMED CONSENT FOR BLOOD The transfusion of blood and/or blood components were discussed with the patient and/or legal member services representative. The risks, benefits and alternatives were reviewed. Questions regarding blood transfusions were answered. The patient /or the patient s legal member services representative agree with the plan for transfusion of blood and/or blood components. [id number] Telephone encounter Note* Telephone Encounter - Mary Dennis RN - 02/24/2022 7:19 AM EDT PSE received pre-op COVID test results - NOT DETECTED on 02/23/2022. Document scanned into [employer]. [id number] Miscellaneous Notes* Telephone Encounter - Mary Dennis RN - 02/24/2022 7:19 AM EDT PSE received pre-op COVID test results - NOT DETECTED on 02/23/2022. Document scanned into [employer]. documented in this [id number] Telephone encounter Note* Telephone Encounter - Mary Dennis RN - 02/17/2022 2:52 PM EDT Patient is scheduled for surgery 02/25/2022. Prefers to complete pre-op COVID testing closer to home.Instructed to obtain testing 48-72 hours prior to surgery and bring copy of results on day of surgery. PSE contact information provided, order faxed to [facility] per patient request. [id number] Miscellaneous Notes* Telephone Encounter - Mary Dennis RN - 02/17/2022 2:52 PM EDT Patient is scheduled for surgery 02/25/2022. Prefers to complete pre-op COVID testing closer to home.Instructed to obtain testing 48-72 hours prior to surgery and bring copy of results on day of surgery. PSE contact information provided, order faxed to [facility] per patient request. documented in this [id number] Instructions* Patient Instructions* Pierce Ramos APRN-CNP - [...] for pain Please hold all Vitamin E, [place] 3, fish oil and herbal supplements for 1 week prior to surgery documented in this [id number] Note* PSE Appt H&P - Quinton Manzo - 02/16/2022 2:19 PM EDT Patient was identified by name and date of . Quinton Manzo Bill of rights provided to patient [id number] Miscellaneous Notes* PSE Appt H&P - Quinton Manzo - 02/16/2022 2:19 PM EDT Patient was identified by name and date of . Quinton Manzo Bill of rights provided to patient * PSE Appt H&P - Pierce Ramos APRN-CNP - 02/15/2022 2:46 PM EDT Presurgical Evaluation Isabelle Hewitt, [id number] 46 year old Female 02/17/2022 VITAL SIGNS: [...] Yes Does not use CPAP PS12/17/2021 at [facility] RESPIRATORY DATA INTEGRITY: Respiratory data [...] (LIPITOR) 20 mg tablet EKG 12-LEAD TRACING [[id number]] PLAN: Documentation complete. Labs, Images, and Medications reviewed, and patient questions answered. Interviewer signature: ARTURO Rankin 8:00 AM 02/17/2022 documented in this [id number] NotePresurgical Evaluation Isabelle Hewitt, [id number] 46 year old Female 02/17/2022 VITAL SIGNS: [...] Yes Does not use CPAP PS12/17/2021 at [facility] RESPIRATORY DATA INTEGRITY: Respiratory data [...] No result fo (more content not included)...The Contactually [id number] Note * PSE Appt H&P - Pierce Ramos APRN-CNP - 02/15/2022 2:46 PM EDT Presurgical Evaluation Isabelle Hewitt, [id number] 46 year old Female 02/17/2022 VITAL SIGNS: [...] Yes Does not use CPAP PS12/17/2021 at [facility] RESPIRATORY DATA INTEGRITY: Respiratory data [...] (LIPITOR) 20 mg tablet EKG 12-LEAD TRACING [[id number]] PLAN: Documentation complete. Labs, Images, and Medications reviewed, and patient questions answered. Interviewer signature: ARTURO Rankin 8:00 AM 02/17/2022 [id number] Telephone encounter Note* Telephone Encounter - Mary Dennis RN - 02/11/2022 3:52 PM EDT Arrangements to be made for pre-op COVID testing per ENT request. [id number] Miscellaneous Notes* Telephone Encounter - Mary Dennis RN - 02/11/2022 3:52 PM EDT Arrangements to be made for pre-op COVID testing per ENT request. documented in this [id number] History of Present illness Narrative* Yi Moreno [...] indicating an AHI of 63 with an S0yrvjy of 64% Sleep position: Side Mouth breather:y yeses previous sleep surgeries: no Other sleep disorders, such as insomnia/ kataplexy/ narcolepsy: yes, on andoff Bruxism: no tried oral appliance:edenetulous Questionnaires: [place] sleep scale score: 18 FOSQ-10: HADS No [...] DRINK FOR 2 HOURS AFTER TAKING norethindrone (Fnanie-BE) 0.35 MG tablet Take by mouth. clonazePAM [...] middle ear was aerated bilaterally. Clinical speech medical receptionist thresholds grossly intact. No lesions/mass [...] surgery. Patient's procedure will be done at [facility]. This is a difficult airway in [...] transfusion as discussed preoperatively. documented in this [id number] History of Present illness Narrative* Randa Yanes [...] or not. Verbalizes understanding. documented [facility] this [facility] Phone: 1(212) 628-818805-17-2022 Hospital Discharge instructions* Instructions* Ade Easton RN [...] flush the urinary tract.) Call Dr. Hirsch ([phone]) if you develop: Fever over 100 degrees [...] Call Dr. Hirsch office for follow-up appointment ([phone]). [facility]: 1(781) 545-978103-21-2022 Evaluation note* Encounter Date Diagnosis Assessment Notes [...] changes in symptoms and/or problems with treatment Anturis Other Chief complaint Narrative - ReportedISABELLE HEWITT is being seen for a consultation for abnormal test(s) results.-[facility] HomeSharon 250 DO Work Phone: Evaluation note* Diagnosis Kidney stones Calculus of kidney documented in this encounter [employer] Work Phone: evaliwmtuh note* Diagnosis Pre-op testing Preoperative examination, unspecified documented in this encounter [facility] Phone: evaluation note* Diagnosis Ureteral calculus- Primary Calculus of ureter documented in this encounter [facility] Phone: evaluation note* Diagnosis DIONNE (obstructive sleep apnea)- Primary Obstructive sleep apnea (adult) (pediatric) Body mass index (BMI) 34.0-34.9, adult [facility]r Other Evaluation note* Diagnosis DIONNE (obstructive sleep [...] of ureter documented [facility] [email or web address] Phone: evaluation note* Diagnosis DIONNE (obstructive sleep apnea)- Primary Obstructive sleep apnea (adult) (pediatric) Encounter for laboratory testing for severe acute respiratory syndrome coronavirus 2 (SARS-CoV-2) Postoperative pain Other acute postoperative pain [facility] Diagnosis DIONNE (obstructive sleep apnea)- Primary Obstructive sleep apnea (adult) (pediatric) documented in this [facility] assessment information [facility] Work Phone: Evaluation note* Diagnosis [...] in this encounter [facility] [employer] Phone: evaluation note* Diagnosis Post-operative state- Primary Other postprocedural status [facility]* Diagnosis Post-operative state- Primary Other postprocedural status [facility]* Diagnosis OAB (overactive bladder) Hypertonicity of bladder Urge incontinence Frequency of urination Urinary frequency documented in this encounter [facility] Work Phone: evaluation note* Diagnosis Onset Date Resolution Status Contact with and (suspected) exposure to covid-19 acute Influenza B noneactive Diarrhea acute Fecal urgency acute Alternating constipation and diarrhea acute Bloating acute Fecal urgency acute [facility] Work Phone: Evaluation note* Diagnosis Onset Date Resolution Status Constipation acute [facility] Work Phone: Evaluation note* Diagnosis Primary hypertension ([facility]/HCC)- Primary Unspecified essential hypertension Hypokalemia Hypopotassemia Chronic diarrhea Diarrhea Weight loss, unintentional- Primary Loss of weight DIONNE (obstructive sleep apnea) Obstructive sleep apnea (adult) (pediatric) Primary hypertension ([facility]/HCC) Unspecified essential hypertension Chronic diarrhea Diarrhea Other microscopic colitis (CMS/HCC) Bipolar II disorder ([facility]/HCC) Other bipolar disorders Hypokalemia Hypopotassemia Anxiety state ([facility]) Anxiety state, unspecified Pre-operative clearance- Primary Unspecified pre-operative examination Primary hypertension (CMS/HCC) Unspecified essential hypertension Hypokalemia Hypopotassemia Other specified hypothyroidism ([facility]) Herpes zoster without complication- Primary Overweight (BMI 25.0-29.9) Overweight Primary hypertension ([facility]/HCC)- Primary Unspecified essential hypertension Hypokalemia Hypopotassemia DIONNE (obstructive sleep apnea) Obstructive sleep apnea (adult) (pediatric) Other microscopic colitis (CMS/HCC) Irritable bowel syndrome with diarrhea Irritable bowel syndrome Overweight (BMI 25.0-29.9) Overweight Generalized anxiety disorder with panic attacks (CMS/HCC) Bipolar II disorder (CMS/HCC) Other bipolar disorders Mixed hyperlipidemia ([facility]) Mixed hyperlipidemia [facility] Diagnosis Primary hypertension ([facility]/HCC)- Primary Unspecified essential hypertension Hypokalemia Hypopotassemia Chronic diarrhea Diarrhea Weight loss, unintentional- Primary Loss of weight DIONNE (obstructive sleep apnea) Obstructive sleep apnea (adult) (pediatric) Primary hypertension ([facility]/HCC) Unspecified essential hypertension Chronic diarrhea Diarrhea Other microscopic colitis (CMS/HCC) Bipolar II disorder (CMS/HCC) Other bipolar disorders Hypokalemia Hypopotassemia Anxiety state (CMS/[facility]) Anxiety state, unspecified Pre-operative clearance- Primary Unspecified pre-operative examination Primary hypertension ([facility]) Unspecified essential hypertension Hypokalemia Hypopotassemia Other specified hypothyroidism ([facility]) Herpes zoster without complication- Primary Overweight (BMI 25.0-29.9) Overweight Primary hypertension ([facility])- Primary Unspecified essential hypertension Hypokalemia Hypopotassemia DIONNE (obstructive sleep apnea) Obstructive sleep apnea (adult) (pediatric) Other microscopic colitis ([facility]) Irritable bowel syndrome with diarrhea Irritable bowel syndrome Overweight (BMI 25.0-29.9) Overweight Generalized anxiety disorder with panic attacks ([facility]) Bipolar II disorder ([facility]) Other bipolar disorders Mixed hyperlipidemia ([facility]) Mixed hyperlipidemia Complex ovarian cyst Night sweats Generalized hyperhidrosis documented [facility]* Diagnosis Herpes zoster without complication- Primary Overweight (BMI 25.0-29.9) Overweight documented in this encounter [facility]* Diagnosis Acute URI- Primary Acute upper respiratory infections of unspecified site Overweight (BMI 25.0-29.9) Overweight documented in this encounter [facility]* Diagnosis Primary hypertension ([facility])- Primary Unspecified essential hypertension Hypokalemia Hypopotassemia Chronic diarrhea Diarrhea Weight loss, unintentional- Primary Loss of weight DIONNE (obstructive sleep apnea) Obstructive sleep apnea (adult) (pediatric) Primary hypertension ([facility]) Unspecified essential hypertension Chronic diarrhea Diarrhea Other microscopic colitis ([facility]) Bipolar II disorder ([facility]) Other bipolar disorders Hypokalemia Hypopotassemia Anxiety state ([facility]) Anxiety state, unspecified Pre-operative clearance- Primary Unspecified pre-operative examination Primary hypertension ([facility]) Unspecified essential hypertension Hypokalemia Hypopotassemia Other specified hypothyroidism ([facility]) Herpes zoster without complication- Primary Overweight (BMI 25.0-29.9) Overweight Primary hypertension ([facility])- Primary Unspecified essential hypertension Hypokalemia Hypopotassemia DIONNE (obstructive sleep apnea) Obstructive sleep apnea (adult) (pediatric) Other microscopic colitis ([facility]) Irritable bowel syndrome with diarrhea Irritable bowel syndrome Overweight (BMI 25.0-29.9) Overweight Generalized anxiety disorder with panic attacks ([facility]) Bipolar II disorder ([facility]) Other bipolar disorders Mixed hyperlipidemia ([facility]/HCC) Mixed hyperlipidemia Hypokalemia Hypopotassemia documented in this encounter [facility]* Diagnosis Dysuria documented in this encounter [facility]* Diagnosis Primary hypertension ([facility])- Primary Unspecified essential hypertension Hypokalemia Hypopotassemia Chronic diarrhea Diarrhea Weight loss, unintentional- Primary Loss of weight DIONNE (obstructive sleep apnea) Obstructive sleep apnea (adult) (pediatric) Primary hypertension ([facility]/HCC) Unspecified essential hypertension Chronic diarrhea Diarrhea Other microscopic colitis (CMS/HCC) Bipolar II disorder ([facility]/HCC) Other bipolar disorders Hypokalemia Hypopotassemia Anxiety state ([facility]) Anxiety state, unspecified Pre-operative clearance- Primary Unspecified pre-operative examination Primary hypertension ([facility]) Unspecified essential hypertension Hypokalemia Hypopotassemia Other specified hypothyroidism ([facility]) Herpes zoster without complication- Primary Overweight (BMI 25.0-29.9) Overweight Primary hypertension ([facility])- Primary Unspecified essential hypertension Hypokalemia Hypopotassemia DIONNE (obstructive sleep apnea) Obstructive sleep apnea (adult) (pediatric) Other microscopic colitis (CMS/HCC) Irritable bowel syndrome with diarrhea Irritable bowel syndrome Overweight (BMI 25.0-29.9) Overweight Generalized anxiety disorder with panic attacks ([facility]) Bipolar II disorder ([facility]/HCC) Other bipolar disorders Mixed hyperlipidemia ([facility]/HCC) Mixed hyperlipidemia Generalized abdominal pain- Primary Abdominal pain, generalized Bipolar II disorder ([facility]/HCC) Other bipolar disorders Primary hypertension ([facility]) Unspecified essential hypertension Overweight (BMI 25.0-29.9) Overweight Generalized anxiety disorder with panic attacks ([facility]/HCC) Other specified hypothyroidism ([facility]) Viral upper respiratory tract infection Acute upper respiratory infections of unspecified site Subacute cough Irritable bowel syndrome with diarrhea Irritable bowel syndrome Weakness generalized Other malaise and fatigue documented in this encounter [facility]* Diagnosis Primary hypertension ([facility])- Primary Unspecified essential hypertension Hypokalemia Hypopotassemia Chronic diarrhea Diarrhea Weight loss, unintentional- Primary Loss of weight DIONNE (obstructive sleep apnea) Obstructive sleep apnea (adult) (pediatric) Primary hypertension ([facility]/HCC) Unspecified essential hypertension Chronic diarrhea Diarrhea Other microscopic colitis (CMS/HCC) Bipolar II disorder ([facility]/HCC) Other bipolar disorders Hypokalemia Hypopotassemia Anxiety state ([facility]) Anxiety state, unspecified Pre-operative clearance- Primary Unspecified pre-operative examination Primary hypertension ([facility]) Unspecified essential hypertension Hypokalemia Hypopotassemia Other specified hypothyroidism ([facility]) Herpes zoster without complication- Primary Overweight (BMI 25.0-29.9) Overweight Primary hypertension ([facility])- Primary Unspecified essential hypertension Hypokalemia Hypopotassemia DIONNE (obstructive sleep apnea) Obstructive sleep apnea (adult) (pediatric) Other microscopic colitis ([facility]) Irritable bowel syndrome with diarrhea Irritable bowel syndrome Overweight (BMI 25.0-29.9) Overweight Generalized anxiety disorder with panic attacks ([facility]) Bipolar II disorder ([facility]) Other bipolar disorders Mixed hyperlipidemia ([facility]) Mixed hyperlipidemia Generalized abdominal pain- Primary Abdominal pain, generalized Bipolar II disorder ([facility]) Other bipolar disorders Primary hypertension ([facility]) Unspecified essential hypertension Overweight (BMI 25.0-29.9) Overweight Generalized anxiety disorder with panic attacks ([facility]) Other specified hypothyroidism ([facility]) Viral upper respiratory tract infection Acute upper respiratory infections of unspecified site Subacute cough Irritable bowel syndrome with diarrhea Irritable bowel syndrome Weakness generalized Other malaise and fatigue Nausea- Primary Nausea alone documented [facility]* Diagnosis Primary hypertension ([facility])- Primary Unspecified essential hypertension Hypokalemia Hypopotassemia Chronic diarrhea Diarrhea Weight loss, unintentional- Primary Loss of weight DIONNE (obstructive sleep apnea) Obstructive sleep apnea (adult) (pediatric) Primary hypertension ([facility]) Unspecified essential hypertension Chronic diarrhea Diarrhea Other microscopic colitis ([facility]) Bipolar II disorder ([facility]) Other bipolar disorders Hypokalemia Hypopotassemia Anxiety state ([facility]) Anxiety state, unspecified Pre-operative clearance- Primary Unspecified pre-operative examination Primary hypertension ([facility]) Unspecified essential hypertension Hypokalemia Hypopotassemia Other specified hypothyroidism ([facility]) Herpes zoster without complication- Primary Overweight (BMI 25.0-29.9) Overweight Primary hypertension ([facility])- Primary Unspecified essential hypertension Hypokalemia Hypopotassemia DIONNE (obstructive sleep apnea) Obstructive sleep apnea (adult) (pediatric) Other microscopic colitis ([facility]) Irritable bowel syndrome with diarrhea Irritable bowel [...] encounter [facility]* Diagnosis Primary hypertension ([facility]/HCC)- Primary Unspecified essential hypertension Hypokalemia Hypopotassemia Chronic diarrhea Diarrhea Weight loss, unintentional- Primary Loss of weight DIONNE (obstructive sleep apnea) Obstructive sleep apnea (adult) (pediatric) Primary hypertension ([facility]/HCC) Unspecified essential hypertension Chronic diarrhea Diarrhea Other microscopic colitis (CMS/HCC) Bipolar II disorder (CMS/HCC) Other bipolar disorders Hypokalemia Hypopotassemia Anxiety state (CMS/HCC) Anxiety state, unspecified Pre-operative clearance- Primary Unspecified pre-operative examination Primary hypertension (CMS/HCC) Unspecified essential hypertension Hypokalemia Hypopotassemia Other specified hypothyroidism (CMS/HCC) Herpes zoster without complication- Primary Overweight (BMI 25.0-29.9) Overweight Primary hypertension ([facility]/HCC)- Primary Unspecified essential hypertension Hypokalemia Hypopotassemia DIONNE [...] site unspecified- Primary documented in this encounter [facility]* Diagnosis Primary hypertension ([facility])- Primary Unspecified essential hypertension Hypokalemia Hypopotassemia Chronic diarrhea Diarrhea Weight loss, unintentional- Primary Loss of weight DIONNE (obstructive sleep apnea) Obstructive sleep apnea (adult) (pediatric) Primary hypertension ([facility]) Unspecified essential hypertension Chronic diarrhea Diarrhea Other microscopic colitis ([facility]) Bipolar II disorder ([facility]) Other bipolar disorders Hypokalemia Hypopotassemia Anxiety state ([facility]) Anxiety state, unspecified Pre-operative clearance- Primary Unspecified pre-operative examination Primary hypertension ([facility]) Unspecified essential hypertension Hypokalemia Hypopotassemia Other specified hypothyroidism ([facility]) Herpes zoster without complication- Primary Overweight (BMI 25.0-29.9) Overweight Primary hypertension ([facility])- Primary Unspecified essential hypertension Hypokalemia Hypopotassemia DIONNE (obstructive sleep apnea) Obstructive sleep apnea (adult) (pediatric) Other microscopic colitis ([facility]) Irritable bowel syndrome with diarrhea Irritable bowel syndrome Overweight (BMI 25.0-29.9) Overweight Generalized anxiety disorder with panic attacks ([facility]) Bipolar II disorder ([facility]) Other bipolar disorders Mixed hyperlipidemia ([facility]) Mixed hyperlipidemia Generalized abdominal pain- Primary Abdominal pain, generalized Bipolar II disorder ([facility]) Other bipolar disorders Primary hypertension ([facility]) Unspecified essential hypertension Overweight (BMI 25.0-29.9) Overweight Generalized anxiety disorder with panic attacks ([facility]) Other specified hypothyroidism ([facility]) Viral upper respiratory tract infection Acute upper respiratory infections of unspecified site Subacute cough Irritable bowel syndrome with diarrhea Irritable bowel syndrome Weakness generalized Other malaise and fatigue Generalized abdominal pain- Primary Abdominal pain, generalized Primary hypertension ([facility]) Unspecified essential hypertension Mixed hyperlipidemia ([facility]) Mixed hyperlipidemia Irritable bowel syndrome with diarrhea Irritable bowel syndrome Nausea Nausea alone Urinary tract infection without hematuria, site unspecified Generalized anxiety disorder with panic attacks ([facility]) Depression with anxiety Dysthymic disorder documented in this encounter [facility]* Diagnosis Primary hypertension ([facility])- Primary Unspecified essential hypertension Hypokalemia Hypopotassemia Chronic [...] disorder (CMS/HCC) Other bipolar disorders Primary hypertension ([facility]/HCC) Unspecified essential hypertension Overweight (BMI 25.0-29.9) Overweight Generalized anxiety disorder with panic attacks (CMS/HCC) Other specified hypothyroidism (CMS/HCC) Viral upper respiratory tract infection Acute upper respiratory infections of unspecified site Subacute cough Irritable bowel syndrome with diarrhea Irritable bowel syndrome Weakness generalized Other malaise and fatigue Generalized abdominal pain- Primary Abdominal pain, generalized Primary hypertension (CMS/HCC) Unspecified essential hypertension Mixed hyperlipidemia ([facility]/HCC) Mixed hyperlipidemia Irritable bowel syndrome with diarrhea Irritable bowel syndrome Nausea Nausea alone Urinary tract infection without hematuria, site unspecified Generalized anxiety disorder with panic attacks ([facility]/HCC) Depression with anxiety Dysthymic disorder Acute pain of right shoulder- Primary Overweight (BMI 25.0-29.9) Overweight Acute pain of right shoulder- Primary documented in this encounter [facility]* Diagnosis Primary hypertension ([facility]/HCC)- Primary Unspecified essential hypertension Hypokalemia Hypopotassemia Chronic diarrhea Diarrhea Weight loss, unintentional- Primary Loss of weight DIONNE (obstructive sleep apnea) Obstructive sleep apnea (adult) (pediatric) Primary hypertension (CMS/HCC) Unspecified essential hypertension Chronic diarrhea Diarrhea Other microscopic colitis (CMS/HCC) Bipolar II disorder (CMS/HCC) Other bipolar disorders Hypokalemia Hypopotassemia Anxiety state ([facility]) Anxiety state, unspecified Pre-operative clearance- Primary Unspecified pre-operative examination Primary hypertension ([facility]) Unspecified essential hypertension Hypokalemia Hypopotassemia Other specified hypothyroidism ([facility]) Herpes zoster without complication- Primary Overweight (BMI 25.0-29.9) Overweight Primary hypertension (CMS/HCC)- Primary Unspecified essential hypertension Hypokalemia Hypopotassemia DIONNE (obstructive sleep apnea) Obstructive sleep apnea (adult) (pediatric) Other microscopic colitis ([facility]/HCC) Irritable bowel syndrome with diarrhea Irritable bowel syndrome Overweight (BMI 25.0-29.9) Overweight Generalized anxiety disorder with panic attacks ([facility]/HCC) Bipolar II disorder ([facility]/HCC) Other bipolar disorders Mixed hyperlipidemia ([facility]) Mixed hyperlipidemia Generalized abdominal pain- Primary Abdominal pain, generalized Bipolar II disorder ([facility]/HCC) Other bipolar disorders Primary hypertension ([facility]) Unspecified essential hypertension Overweight (BMI 25.0-29.9) Overweight Generalized anxiety disorder with panic attacks ([facility]) Other specified hypothyroidism ([facility]) Viral upper respiratory tract infection Acute upper respiratory infections of unspecified site Subacute cough Irritable bowel syndrome with diarrhea Irritable bowel syndrome Weakness generalized Other malaise and fatigue Generalized abdominal pain- Primary Abdominal pain, generalized Primary hypertension ([facility]) Unspecified essential hypertension Mixed hyperlipidemia ([facility]) Mixed hyperlipidemia Irritable bowel syndrome with diarrhea Irritable bowel syndrome Nausea Nausea alone Urinary tract infection without hematuria, site unspecified Generalized anxiety disorder with panic attacks ([facility]) Depression with anxiety Dysthymic disorder Acute pain of right shoulder- Primary Overweight (BMI 25.0-29.9) Overweight Acute pain of right shoulder documented in this encounter [facility]* Diagnosis Primary hypertension ([facility])- Primary Unspecified essential hypertension Hypokalemia Hypopotassemia Chronic diarrhea Diarrhea Weight loss, unintentional- Primary Loss of weight DIONNE (obstructive sleep apnea) Obstructive sleep apnea (adult) (pediatric) Primary hypertension ([facility]) Unspecified essential hypertension Chronic diarrhea Diarrhea Other microscopic colitis Bipolar II disorder ([facility]/HCC) Other bipolar disorders Hypokalemia Hypopotassemia Anxiety state ([facility]) Anxiety state, unspecified Pre-operative clearance- Primary Unspecified pre-operative examination Primary hypertension ([facility]) Unspecified essential hypertension Hypokalemia Hypopotassemia Other specified [...] disorder (CMS/HCC) Other bipolar disorders Primary hypertension (CMS/[facility]) Unspecified essential hypertension Overweight (BMI 25.0-29.9) Overweight Generalized anxiety disorder with panic attacks ([facility]/HCC) Other specified hypothyroidism Viral upper respiratory tract infection Acute upper respiratory infections of unspecified site Subacute cough Irritable bowel syndrome with diarrhea Irritable bowel syndrome Weakness generalized Other malaise and fatigue Generalized abdominal pain- Primary Abdominal pain, generalized Primary hypertension ([facility]) Unspecified essential hypertension Mixed hyperlipidemia ([facility]) Mixed hyperlipidemia Irritable bowel syndrome with diarrhea Irritable bowel syndrome Nausea Nausea alone Urinary tract infection without hematuria, site unspecified Generalized anxiety disorder with panic attacks ([facility]) Depression with anxiety Dysthymic disorder Acute pain of right shoulder- Primary Overweight (BMI 25.0-29.9) Overweight Acute pain of right shoulder- Primary documented in this encounter [facility]* Diagnosis Primary hypertension ([facility])- Primary Unspecified essential hypertension Hypokalemia Hypopotassemia Chronic diarrhea Diarrhea Weight loss, unintentional- Primary Loss of weight DIONNE (obstructive sleep apnea) Obstructive sleep apnea (adult) (pediatric) Primary hypertension ([facility]) Unspecified essential hypertension Chronic diarrhea Diarrhea Other microscopic colitis Bipolar II disorder ([facility]) Other bipolar disorders Hypokalemia Hypopotassemia Anxiety state ([facility]) Anxiety state, unspecified Pre-operative clearance- Primary Unspecified pre-operative examination Primary hypertension ([facility]) Unspecified essential hypertension Hypokalemia Hypopotassemia Other specified hypothyroidism Herpes zoster without complication- Primary Overweight (BMI 25.0-29.9) Overweight Primary hypertension ([facility]/HCC)- Primary Unspecified essential hypertension Hypokalemia Hypopotassemia DIONNE [...] neoplasm of breast documented in this encounter [facility]* Diagnosis Primary hypertension ([facility])- Primary Unspecified essential hypertension Hypokalemia Hypopotassemia Chronic diarrhea Diarrhea Weight loss, unintentional- Primary Loss of weight DIONNE (obstructive sleep apnea) Obstructive sleep apnea (adult) (pediatric) Primary hypertension (CMS/HCC) Unspecified essential hypertension Chronic diarrhea Diarrhea Other microscopic colitis Bipolar II disorder (CMS/HCC) Other bipolar disorders Hypokalemia Hypopotassemia Anxiety state (CMS/[facility]) Anxiety state, unspecified Pre-operative clearance- Primary Unspecified [...] pain of right shoulder- Primary Primary hypertension (CMS/[facility]) Unspecified essential hypertension documented in this encounter [facility]* Diagnosis Primary hypertension ([facility])- Primary Unspecified essential hypertension Hypokalemia Hypopotassemia Chronic diarrhea Diarrhea Weight loss, unintentional- Primary Loss of weight DIONNE (obstructive sleep apnea) Obstructive sleep apnea (adult) (pediatric) Primary hypertension ([facility]) Unspecified essential hypertension Chronic diarrhea Diarrhea Other microscopic colitis Bipolar II disorder (CMS/HCC) Other bipolar disorders Hypokalemia Hypopotassemia Anxiety state ([facility]) Anxiety state, unspecified Pre-operative clearance- Primary Unspecified pre-operative examination Primary hypertension ([facility]) Unspecified essential hypertension Hypokalemia Hypopotassemia Other specified hypothyroidism Herpes zoster without complication- Primary Overweight (BMI 25.0-29.9) Overweight Primary hypertension ([facility]/HCC)- Primary Unspecified essential hypertension Hypokalemia Hypopotassemia DIONNE [...] encounter [facility]* Diagnosis Primary hypertension ([facility])- Primary Unspecified essential hypertension Hypokalemia Hypopotassemia Chronic diarrhea Diarrhea Weight loss, unintentional- Primary Loss of weight DIONNE (obstructive sleep apnea) Obstructive sleep apnea (adult) (pediatric) Primary hypertension ([facility]) Unspecified essential hypertension Chronic diarrhea Diarrhea Other microscopic colitis Bipolar II disorder (CMS/HCC) Other bipolar disorders Hypokalemia Hypopotassemia Anxiety state (CMS/HCC) Anxiety state, unspecified Pre-operative clearance- Primary Unspecified pre-operative examination Primary hypertension (CMS/[facility]) Unspecified essential hypertension Hypokalemia Hypopotassemia Other specified [...] Other specified hypothyroidism documented in this encounter [facility]* Diagnosis Primary hypertension ([facility])- Primary Unspecified essential hypertension Hypokalemia Hypopotassemia Chronic diarrhea Diarrhea Weight loss, unintentional- Primary Loss of weight DIONNE (obstructive sleep apnea) Obstructive sleep apnea (adult) (pediatric) Primary hypertension ([facility]) Unspecified essential hypertension Chronic diarrhea Diarrhea Other microscopic colitis Bipolar II disorder ([facility]/HCC) Other bipolar disorders Hypokalemia Hypopotassemia Anxiety state ([facility]) Anxiety state, unspecified Pre-operative clearance- Primary Unspecified pre-operative examination Primary hypertension ([facility]) Unspecified essential hypertension Hypokalemia Hypopotassemia Other specified hypothyroidism Herpes zoster without complication- Primary Overweight (BMI 25.0-29.9) Overweight Primary hypertension ([facility])- Primary Unspecified essential hypertension Hypokalemia Hypopotassemia DIONNE (obstructive sleep apnea) Obstructive sleep apnea (adult) (pediatric) Other microscopic colitis Irritable bowel syndrome with diarrhea Irritable bowel syndrome Overweight (BMI 25.0-29.9) Overweight Generalized anxiety disorder with panic attacks (CMS/HCC) Bipolar II disorder (CMS/HCC) Other bipolar disorders Mixed hyperlipidemia (CMS/[facility]) Mixed hyperlipidemia Generalized abdominal pain- Primary Abdominal pain, generalized Bipolar II disorder (CMS/HCC) Other bipolar disorders Primary hypertension ([facility]) Unspecified essential hypertension Overweight (BMI 25.0-29.9) Overweight Generalized anxiety disorder with panic attacks ([facility]/HCC) Other specified hypothyroidism Viral upper respiratory tract [...] Obstructive sleep apnea (adult) (pediatric) Primary hypertension ([facility]) Unspecified essential hypertension Chronic diarrhea Diarrhea Other microscopic colitis Bipolar II disorder ([facility]) Other bipolar disorders Hypokalemia Hypopotassemia Anxiety state ([facility]) Anxiety state, unspecified Pre-operative clearance- Primary Unspecified pre-operative examination Primary hypertension ([facility]) Unspecified essential hypertension Hypokalemia Hypopotassemia Other specified hypothyroidism Herpes zoster without complication- Primary Overweight (BMI 25.0-29.9) Overweight Primary hypertension ([facility])- Primary Unspecified essential hypertension Hypokalemia Hypopotassemia DIONNE (obstructive sleep apnea) Obstructive sleep apnea (adult) (pediatric) Other microscopic colitis Irritable bowel syndrome with diarrhea Irritable bowel syndrome Overweight (BMI 25.0-29.9) Overweight Generalized anxiety disorder with panic attacks ([facility]) Bipolar II disorder ([facility]) Other bipolar disorders Mixed hyperlipidemia ([facility]) Mixed hyperlipidemia Generalized abdominal pain- Primary Abdominal pain, generalized Bipolar II disorder ([facility]) Other bipolar disorders Primary hypertension ([facility]) Unspecified essential hypertension Overweight (BMI 25.0-29.9) Overweight Generalized anxiety disorder with panic attacks ([facility]) Other specified hypothyroidism Viral upper respiratory tract infection Acute upper respiratory infections of unspecified site Subacute cough Irritable bowel syndrome with diarrhea Irritable bowel syndrome Weakness generalized Other malaise and fatigue Generalized abdominal pain- Primary Abdominal pain, generalized Primary hypertension ([facility]) Unspecified essential hypertension Mixed hyperlipidemia ([facility]) Mixed hyperlipidemia Irritable bowel syndrome with diarrhea Irritable bowel syndrome Nausea Nausea alone Urinary tract infection without hematuria, site unspecified Generalized anxiety disorder with panic attacks ([facility]) Depression with anxiety Dysthymic disorder Acute pain of right shoulder- Primary Overweight (BMI 25.0-29.9) Overweight Acute pain of right shoulder- Primary Swelling of labia Labial cyst Other specified noninflammatory disorder of vulva and perineum documented in this encounter [facility]* Diagnosis Primary hypertension ([facility])- Primary Unspecified essential hypertension Hypokalemia Hypopotassemia Chronic diarrhea Diarrhea Weight loss, unintentional- Primary Loss of weight DIONNE (obstructive sleep apnea) Obstructive sleep apnea (adult) (pediatric) Primary hypertension ([facility]/HCC) Unspecified essential hypertension Chronic diarrhea Diarrhea Other microscopic colitis Bipolar II disorder ([facility]/HCC) Other bipolar disorders Hypokalemia Hypopotassemia Anxiety state ([facility]) Anxiety state, unspecified Pre-operative clearance- Primary Unspecified pre-operative examination Primary hypertension ([facility]) Unspecified essential hypertension Hypokalemia Hypopotassemia Other specified hypothyroidism Herpes zoster without complication- Primary Overweight (BMI 25.0-29.9) Overweight Primary hypertension ([facility]/HCC)- Primary Unspecified essential hypertension Hypokalemia Hypopotassemia DIONNE (obstructive sleep apnea) Obstructive sleep apnea (adult) (pediatric) Other microscopic colitis Irritable bowel syndrome with diarrhea Irritable bowel syndrome Overweight (BMI 25.0-29.9) Overweight Generalized anxiety disorder with panic attacks ([facility]) Bipolar II disorder ([facility]/HCC) Other bipolar disorders Mixed hyperlipidemia ([facility]) Mixed hyperlipidemia Generalized abdominal pain- Primary Abdominal pain, generalized Bipolar II disorder ([facility]) Other bipolar disorders Primary hypertension ([facility]) Unspecified essential hypertension Overweight (BMI 25.0-29.9) Overweight Generalized anxiety disorder with panic attacks ([facility]) Other specified hypothyroidism Viral upper respiratory tract infection Acute upper respiratory infections of unspecified site Subacute cough Irritable bowel syndrome with diarrhea Irritable bowel syndrome Weakness generalized Other malaise and fatigue Generalized abdominal pain- Primary Abdominal pain, generalized Primary hypertension ([facility]) Unspecified essential hypertension Mixed hyperlipidemia ([facility]) Mixed hyperlipidemia Irritable bowel syndrome with diarrhea Irritable bowel syndrome Nausea Nausea alone Urinary tract infection without hematuria, site unspecified Generalized anxiety disorder with panic attacks ([facility]) Depression with anxiety Dysthymic disorder Acute pain of right shoulder- Primary Overweight (BMI 25.0-29.9) Overweight Acute pain of right shoulder- Primary Acute pain of right shoulder- Primary documented in this encounter [facility]* Diagnosis Primary hypertension [facility] [facility] Primary Unspecified essential hypertension Hypokalemia Hypopotassemia Chronic diarrhea Diarrhea Weight loss, unintentional- Primary Loss of weight DIONNE (obstructive sleep apnea) Obstructive sleep apnea (adult) (pediatric) Primary hypertension ([facility]) Unspecified essential hypertension Chronic diarrhea Diarrhea Other microscopic colitis Bipolar II disorder ([facility]) Other bipolar disorders Hypokalemia Hypopotassemia Anxiety state ([facility]) Anxiety state, unspecified Pre-operative clearance- Primary Unspecified pre-operative examination Primary hypertension ([facility]) Unspecified essential hypertension Hypokalemia Hypopotassemia Other specified [...] disorder (CMS/HCC) Other bipolar disorders Mixed hyperlipidemia ([facility]) Mixed hyperlipidemia Generalized abdominal pain- Primary Abdominal pain, generalized Bipolar II disorder (CMS/HCC) Other bipolar disorders Primary hypertension ([facility]) Unspecified essential hypertension Overweight (BMI 25.0-29.9) Overweight Generalized anxiety disorder with panic attacks ([facility]/HCC) Other specified hypothyroidism Viral upper respiratory tract infection Acute upper respiratory infections of unspecified site Subacute cough Irritable bowel syndrome with diarrhea Irritable bowel syndrome Weakness generalized Other malaise and fatigue Generalized abdominal pain- Primary Abdominal pain, generalized Primary hypertension ([facility]/HCC) Unspecified essential hypertension Mixed hyperlipidemia ([facility]) Mixed hyperlipidemia Irritable bowel syndrome with diarrhea Irritable bowel syndrome Nausea Nausea alone Urinary tract infection without hematuria, site unspecified Generalized anxiety disorder with panic attacks ([facility]) Depression with anxiety Dysthymic disorder Acute pain of right shoulder- Primary Overweight (BMI 25.0-29.9) Overweight Acute pain of right shoulder- Primary Acute pain of right shoulder- Primary documented in this encounter [facility] HealthcareEvaluation note* Diagnosis Primary hypertension ([facility])- Primary Unspecified essential hypertension Hypokalemia Hypopotassemia Chronic diarrhea Diarrhea Weight loss, unintentional- Primary Loss of weight DIONNE (obstructive sleep apnea) Obstructive sleep apnea (adult) (pediatric) Primary hypertension ([facility]) Unspecified essential hypertension Chronic diarrhea Diarrhea Other microscopic colitis Bipolar II disorder ([facility]/HCC) Other bipolar disorders Hypokalemia Hypopotassemia Anxiety state ([facility]) Anxiety state, unspecified Pre-operative clearance- Primary Unspecified pre-operative examination Primary hypertension ([facility]) Unspecified essential hypertension Hypokalemia Hypopotassemia Other specified [...] unspecified Generalized anxiety disorder with panic attacks ([facility]) Depression with anxiety Dysthymic disorder Acute pain of right shoulder- Primary Overweight (BMI 25.0-29.9) Overweight Acute pain of right shoulder- Primary Labial cyst Other specified noninflammatory disorder of vulva and perineum Follow-up exam Unspecified follow-up examination documented in this encounter [facility]* Diagnosis Primary hypertension ([facility])- Primary Unspecified essential hypertension Hypokalemia Hypopotassemia Chronic diarrhea Diarrhea Weight loss, unintentional- Primary Loss of weight DIONNE (obstructive sleep apnea) Obstructive sleep apnea (adult) (pediatric) Primary hypertension ([facility]) Unspecified essential hypertension Chronic diarrhea Diarrhea Other microscopic colitis Bipolar II disorder (CMS/HCC) Other bipolar disorders Hypokalemia Hypopotassemia Anxiety state ([facility]) Anxiety state, unspecified Pre-operative clearance- Primary Unspecified pre-operative examination Primary hypertension (CMS/HCC) Unspecified essential hypertension Hypokalemia Hypopotassemia Other specified hypothyroidism Herpes zoster without complication- Primary Overweight (BMI 25.0-29.9) Overweight Primary hypertension ([facility]/HCC)- Primary Unspecified essential hypertension Hypokalemia Hypopotassemia DIONNE [...] pain of right shoulder- Primary Mixed hyperlipidemia ([facility]) Mixed hyperlipidemia documented in this encounter [facility] HealthcareEvaluation note* Diagnosis Primary hypertension ([facility])- Primary Unspecified essential hypertension Hypokalemia Hypopotassemia Chronic diarrhea Diarrhea Weight loss, unintentional- Primary Loss of weight DIONNE (obstructive sleep apnea) Obstructive sleep apnea (adult) (pediatric) Primary hypertension ([facility]/HCC) Unspecified essential hypertension Chronic diarrhea Diarrhea Other microscopic colitis Bipolar II disorder (CMS/HCC) Other bipolar disorders Hypokalemia Hypopotassemia Anxiety state ([facility]) Anxiety state, unspecified Pre-operative clearance- Primary Unspecified pre-operative examination Primary hypertension (CMS/HCC) Unspecified essential hypertension Hypokalemia Hypopotassemia Other specified hypothyroidism Herpes zoster without complication- Primary Overweight (BMI 25.0-29.9) Overweight Primary hypertension ([facility]/HCC)- Primary Unspecified essential hypertension Hypokalemia Hypopotassemia DIONNE [...] right shoulder- Primary documented in this encounter [facility] HealthcareEvaluation note* Diagnosis Primary hypertension ([facility])- Primary Unspecified essential hypertension Hypokalemia Hypopotassemia Chronic diarrhea Diarrhea Weight loss, unintentional- Primary Loss of weight DIONNE (obstructive sleep apnea) Obstructive sleep apnea (adult) (pediatric) Primary hypertension ([facility]) Unspecified essential hypertension Chronic diarrhea Diarrhea Other microscopic colitis Bipolar II disorder (CMS/HCC) Other bipolar disorders Hypokalemia Hypopotassemia Anxiety state ([facility]) Anxiety state, unspecified Pre-operative clearance- Primary Unspecified pre-operative examination Primary hypertension (CMS/HCC) Unspecified essential hypertension Hypokalemia Hypopotassemia Other specified hypothyroidism Herpes zoster without complication- Primary Overweight (BMI 25.0-29.9) Overweight Primary hypertension ([facility]/HCC)- Primary Unspecified essential hypertension Hypokalemia Hypopotassemia DIONNE [...] right shoulder- Primary documented in this encounter [facility] HealthcareEvaluation note* Diagnosis Primary hypertension ([facility])- Primary Unspecified essential hypertension Hypokalemia Hypopotassemia Chronic diarrhea Diarrhea Weight loss, unintentional- Primary Loss of weight DIONNE (obstructive sleep apnea) Obstructive sleep apnea (adult) (pediatric) Primary hypertension ([facility]) Unspecified essential hypertension Chronic diarrhea Diarrhea Other microscopic colitis Bipolar II disorder (CMS/HCC) Other bipolar disorders Hypokalemia Hypopotassemia Anxiety state ([facility]) Anxiety state, unspecified Pre-operative clearance- Primary Unspecified pre-operative examination Primary hypertension ([facility]) Unspecified essential hypertension Hypokalemia Hypopotassemia Other specified hypothyroidism Herpes zoster without complication- Primary Overweight (BMI 25.0-29.9) Overweight Primary hypertension ([facility]/HCC)- Primary Unspecified essential hypertension Hypokalemia Hypopotassemia DIONNE (obstructive sleep apnea) Obstructive sleep apnea (adult) (pediatric) Other microscopic colitis Irritable bowel syndrome with diarrhea Irritable bowel syndrome Overweight (BMI 25.0-29.9) Overweight Generalized anxiety disorder with panic attacks (CMS/HCC) Bipolar II disorder ([facility]) Other bipolar disorders Mixed hyperlipidemia ([facility]) Mixed hyperlipidemia Generalized abdominal pain- Primary Abdominal [...] Obstructive sleep apnea (adult) (pediatric) Primary hypertension ([facility]) Unspecified essential hypertension Chronic diarrhea Diarrhea Other microscopic colitis Bipolar II disorder (CMS/HCC) Other bipolar disorders Hypokalemia Hypopotassemia Anxiety state (CMS/HCC) Anxiety state, unspecified Pre-operative clearance- Primary Unspecified pre-operative examination Primary hypertension ([facility]) Unspecified essential hypertension Hypokalemia Hypopotassemia Other specified [...] disorder (CMS/HCC) Other bipolar disorders Mixed hyperlipidemia ([facility]) Mixed hyperlipidemia Generalized abdominal pain- Primary Abdominal pain, generalized Bipolar II disorder (CMS/HCC) Other bipolar disorders Primary hypertension ([facility]/HCC) Unspecified essential hypertension Overweight (BMI 25.0-29.9) Overweight Generalized anxiety disorder with panic attacks (CMS/HCC) Other specified hypothyroidism Viral upper respiratory tract infection Acute upper respiratory infections of unspecified site Subacute cough Irritable bowel syndrome with diarrhea Irritable bowel syndrome Weakness generalized Other malaise and fatigue Generalized abdominal pain- Primary Abdominal pain, generalized Primary hypertension (CMS/HCC) Unspecified essential hypertension Mixed hyperlipidemia ([facility]) Mixed hyperlipidemia Irritable bowel syndrome with diarrhea [...] Obstructive sleep apnea (adult) (pediatric) Primary hypertension ([facility]) Unspecified essential hypertension Chronic diarrhea Diarrhea Other microscopic colitis Bipolar II disorder ([facility]) Other bipolar disorders Hypokalemia Hypopotassemia Anxiety state ([facility]) Anxiety state, unspecified Pre-operative clearance- Primary Unspecified pre-operative examination Primary hypertension ([facility]) Unspecified essential hypertension Hypokalemia Hypopotassemia Other specified hypothyroidism Herpes zoster without complication- Primary Overweight (BMI 25.0-29.9) Overweight Primary hypertension ([facility]/HCC)- Primary Unspecified essential hypertension Hypokalemia Hypopotassemia DIONNE (obstructive sleep apnea) Obstructive sleep apnea (adult) (pediatric) Other microscopic colitis Irritable bowel syndrome with diarrhea Irritable bowel syndrome Overweight (BMI 25.0-29.9) Overweight Generalized anxiety disorder with panic attacks ([facility]) Bipolar II disorder ([facility]) Other bipolar disorders Mixed hyperlipidemia ([facility]) Mixed hyperlipidemia Generalized abdominal pain- Primary Abdominal pain, generalized Bipolar II disorder ([facility]) Other bipolar disorders Primary hypertension ([facility]) Unspecified essential hypertension Overweight (BMI 25.0-29.9) Overweight Generalized anxiety disorder with panic attacks ([facility]) Other specified hypothyroidism Viral upper respiratory tract infection Acute upper respiratory infections of unspecified site Subacute cough Irritable bowel syndrome with diarrhea Irritable bowel syndrome Weakness generalized Other malaise and fatigue Generalized abdominal pain- Primary Abdominal pain, generalized Primary hypertension ([facility]) Unspecified essential hypertension Mixed hyperlipidemia ([facility]) Mixed hyperlipidemia Irritable bowel syndrome with diarrhea Irritable bowel syndrome Nausea Nausea alone Urinary tract infection without hematuria, site unspecified Generalized anxiety disorder with panic attacks ([facility]) Depression with anxiety Dysthymic disorder Acute pain of right shoulder- Primary Overweight (BMI 25.0-29.9) Overweight Acute pain of right shoulder- Primary Chronic right shoulder pain- Primary Pain in joint, shoulder region Internal derangement of right shoulder documented in this encounter [facility]* Diagnosis Primary hypertension ([facility])- Primary Unspecified essential hypertension Hypokalemia Hypopotassemia Chronic diarrhea Diarrhea Weight loss, unintentional- Primary Loss of weight DIONNE (obstructive sleep apnea) Obstructive sleep apnea (adult) (pediatric) Primary hypertension ([facility]/HCC) Unspecified essential hypertension Chronic diarrhea Diarrhea Other microscopic colitis Bipolar II disorder ([facility]/HCC) Other bipolar disorders Hypokalemia Hypopotassemia Anxiety state ([facility]) Anxiety state, unspecified Pre-operative clearance- Primary Unspecified pre-operative examination Primary hypertension ([facility]/HCC) Unspecified essential hypertension Hypokalemia Hypopotassemia Other specified hypothyroidism Herpes zoster without complication- Primary Overweight (BMI 25.0-29.9) Overweight Primary hypertension ([facility]/HCC)- Primary Unspecified essential hypertension Hypokalemia Hypopotassemia DIONNE (obstructive sleep apnea) Obstructive sleep apnea (adult) (pediatric) Other microscopic colitis Irritable bowel syndrome with diarrhea Irritable bowel syndrome Overweight (BMI 25.0-29.9) Overweight Generalized anxiety disorder with panic attacks ([facility]/HCC) Bipolar II disorder ([facility]/HCC) Other bipolar disorders Mixed hyperlipidemia ([facility]) Mixed hyperlipidemia Generalized abdominal pain- Primary Abdominal pain, generalized Bipolar II disorder ([facility]/HCC) Other bipolar disorders Primary hypertension ([facility]) Unspecified essential hypertension Overweight (BMI 25.0-29.9) Overweight Generalized anxiety disorder with panic attacks ([facility]) Other specified hypothyroidism Viral upper respiratory tract infection Acute upper respiratory infections of unspecified site Subacute cough Irritable bowel syndrome with diarrhea Irritable bowel syndrome Weakness generalized Other malaise and fatigue Generalized abdominal pain- Primary Abdominal pain, generalized Primary hypertension ([facility]/HCC) Unspecified essential hypertension Mixed hyperlipidemia ([facility]) Mixed hyperlipidemia Irritable bowel syndrome with diarrhea Irritable bowel syndrome Nausea Nausea alone Urinary tract infection without hematuria, site unspecified Generalized anxiety disorder with panic attacks ([facility]) Depression with anxiety Dysthymic disorder Acute pain [...] Hypokalemia- Primary Hypopotassemia documented in this encounter [facility] HealthcareEvaluation note* Diagnosis Primary hypertension- Primary [...] hypertension Unspecified essential hypertension Chronic right shoulder pain Pain in joint, [...] shoulder region Primary hypertension Unspecified essential hypertension Acquired hypothyroidism- Primary Unspecified hypothyroidism documented in this encounter [facility] Author [facility] August 08, 2023 12:30pm Note Date/Time August 08, 2023 12:30pm [facility] [address] [place] [address] Gastroenterology H&P Signed Patient: Isabelle Hewitt I MR#: [id number] : 1975 Acct:[id number] Age/Sex: 48 / F Adm Date: 3 Loc: Room: Type: [facility] Attending Dr: David Martinez MD [...] signed by David Martinez MD> 08/08/23 1230 [facility] Work Phone: History general Narrative - Reported* Type Description Date Medical History anxiety Medical History Hypertension Medical History sleep apnea Surgical History C section Surgical History cholecystectomy Hospitalization History see above Hospitalization History no history of ps ychiatric hospitalization, substance abuse, and suicide attempts, but she is history of ongoing treatment of depression and counseling for depression, anxiety Hospitalization History dehydration Anturis Other History general Narrative - Reported* Type [...] and counseling for depression, anxiety Hospitalization History [facility] Anturis Other History of Present illness Narrative* Patient [...] office in 3 to 4 months follow-up [facility]-Karla 250 DO Work Phone: History of Present illness [...] monitor blood pressure call if not better [facility] Natan-Karla 250 DO Work Phone: Hospital Discharge instructions [...] in the office as scheduled -Office number [phone]. [facility] Work Phone: Reqmsi for referral (narrative)No reason for referral information availableSt. [facility] Work Phone: Resjfh for visit Narrative* Auth/Cert Specialty Diagnoses / Procedures Referred By Casper t Referred To Contact Diagnoses Kidney stone KIDNEY STONES Procedures CT CYSTO/URETERO W/LITHOTRIPSY &INDWELL STENT INSRT CYSTOSCOPY URETEROSCOPY LASER-WITH HLL Bertha Hirsch MD [address] [facility], [address] [place] [address] [facility] [address] [place] [address] Referral ID Status Reason Start Date Expiration Date Visits Re quested Visits Authorized [id number] 1 1 [employer] Work Phone: reason for visit Narrative* Auth/Cert Specialty Diagnoses / Procedures Referred By Casper diaz Referred To Contact General Surgery Diagnoses DIONNE (obstructive sleep apnea) DIONNE (obstructive sleep apnea) [G47.33] Procedures PALATOPHARYNGOPLASTY UVULOPALATOPHARYNGOPLAS TY Yi Moreno MD [address] [place] [address] [employer] [address] [address] Phone: [phone] Referral ID Status Reason Start Date Expiration Date Visits Re quested Visits Authorized [id number] 3 3 [facility] NarrativeRAPID COVID TEST FOR PROCEDURE, FPG COVID voluntary/travelNorth docTrackr Other Rehvja for visit Narrative* Consultation (Routine) - Authorized Specialty Diagnoses / Procedures Referred By Casper t Referred To Contact Physical Therapy Diagnoses Acute pain of right shoulder Procedures CT OFFICE/OUTPATIENT NEW HIGH MDM 60 MINUTES Gena Kirby, PHILLY [address] [place] [address] Phone: tel: fax: Adriana Barrios PT Referral ID Status Reason Start Date Expiration Date Visits Requested Visits Authorized [id number] Authorized Consult and Treat 11/26/2024 05/19/2025 40 40 [facility] Narrative* Consultation (Routine) - Authorized Specialty Diagnoses / Procedures Referred By Casper t Referred To Contact Physical Therapy Diagnoses Acute pain of right shoulder Procedures CT OFFICE/OUTPATIENT NEW HIGH MDM 60 MINUTES Gena Kirby, PHILLY [address] [place] [address] Phone: tel: fax: Adriana Barrios PT Referral ID Status Reason Start Date Expiration Date Visits Requested Visits Authorized [id number] Authorized Consult and Treat 11/26/2024 08/21/2025 40 40 [facility] Healthcare Family History Unknown Family Member Name Dates [...] 3:11pm Constipation October 23, 2024 3:19 pm Chief Complaint Admit Date Unknown April 14, 2025 1: 50am Chief Complaint Admit Date Unknown April 14, 2025 1: 50am EMG BUE per Dr. Reed Valentino [facility] 2024 1:01pm Chief Complaint Admit Date Unknown April 14, 2025 1: 50am EMG BUE per Dr. Reed Valentino Septem[facility] r 2024 1:01pm 3m F/u IBS April 23, 2025 3:17pm Reason for Visit Admit Date Bilateral arm pain April 23, 2025 1:01pm IBS (irritable bowel syndrome) April 23, 2025 3:17pm Reason for Referral Specialty Diagnoses / Procedures Referred By Casper diaz Referred To Contact Oral Surgery Diagnoses DIONNE (obstructive sleep apnea) Yi Moreon MD [address] [place] [id number] Rikki Rodrigues DMD, MD [address] [place] [address] Referral ID Status Reason Start Date Expiration Date V isits Requested Visits Authorized [id number] Pending Review 05/26/2022 05/26/2023 3 3 Scheduling Instructions Please call the [facility] at [facility] at to schedule an appointment if one was not made for you today. Question Answer Patient to be evaluated for: Orthognathic/Jaw Surgery Additional Source Comments INFORMATION SOURCE (unrecogn ized section and content) DATE CREATED AUTHOR 12/03/2021 [employer] DATE CREATED AUTHOR AUTHOR'S ORGANIZ ATION 01/31/2023 [facility] DATE CREATED AUTHOR AUTHOR'S ORGANIZ ATION 01/31/2023 [facility] [employer] [facility] DATE CREATED AUTHOR AUTHOR'S ORGANIZ ATION 06/12/2024 [facility] DATE CREATED AUTHOR AUTHOR'S ORGANIZ ATION 09/15/2024 [facility] DATE CREATED AUTHOR AUTHOR'S ORGANIZ ATION 04/17/2025 [facility] DATE CREATED AUTHOR AUTHOR'S ORGANIZ ATION 04/19/2025 [facility] EPIC DATE CREATED AUTHOR AUTHOR'S ORGANIZ ATION 04/27/2025 [facility] Care Teams (unrecognized sec tion and content) Team Status: Active Member Role Status Dates Gena Kirby Primary Care Provider Active Team Status: Inactive Member Role Status Dates Gena Kirby Primary Care Provider Active Yi Moreno MD Referring Provider Active Wiley Mcmanus MD Attending Provider Active General Accounting Clerk Relationship Specialty Start Date End Date Gena Kirby [address] [place] [address] PCP - General Nurse Practitioner 11/30/21 General Accounting Clerk Relationship Specialty Start Date End Date JoelnicanorGena keys [address] [place] [address] PCP - General Nurse Practitioner 11/30/21 General Accounting Clerk Relationship Specialty Start Date End Date JoelnicanorGena keys [address] [place] [address] PCP - General Nurse Practitioner 11/30/21 General Accounting Clerk Relationship Specialty Start Date End Date Yi Moreno MD [address] [place] [address] Physician Otolaryngology 01/23/22 General Accounting Clerk Relationship Specialty Start Date End Date Yi Moreno MD [address] [place] [address] Physician Otolaryngology 01/23/22 General Accounting Clerk Relationship Specialty Start Date End Date Yi Moreno MD [address] [place] [address] Physician Otolaryngology 01/23/22 General Accounting Clerk Relationship Specialty Start Date End Date Yi Moreno MD [address] [place] [address] Physician Otolaryngology 01/23/22 General Accounting Clerk Relationship Specialty Start Date End Date Gena Kirby [address] [place] [address] PCP - General Nurse Practitioner 11/30/21 General Accounting Clerk Relationship Specialty Start Date End Date Yi Moreno MD [address] [place] [address] Physician Otolaryngology 01/23/22 General Accounting Clerk Relationship Specialty Start Date End Date Yi Moreno MD [address] [place] [address] Physician Otolaryngology 01/23/22 General Accounting Clerk Relationship Specialty Start Date End Date Yi Moreno MD [address] [place] [address] [id number] Physician Otolaryngology 01/23/22 General Accounting Clerk Relationship Specialty Start Date End Date Yi Moreno MD [address] [place] [address] 64909 Physician Otolaryngology 01/23/22 Team Status: Inactive Member Role Status Dates Gena Kirby Primary Care Provider Active Wiley Mcmanus MD Attending Provider Active Yi Moreno MD Referring Provider Active General Accounting Clerk Relationship Specialty Start Date End Date Yi Moreno MD [address] [place] [address] 82899 Physician Otolaryngology 01/23/22 General Accounting Clerk Relationship Specialty Start Date End Date Yi Moreno MD [address] [place] [address] 73357 Physician Otolaryngology 01/23/22 Rikki Rodrigues DMD, MD [address] [place] [address] 01480 Physician Oral & Maxillofacial Surgery 06/26/22 General Accounting Clerk Relationship Specialty Start Date End Date Yi Moreno MD [address] [place] [address] 10858 Physician Otolaryngology 01/23/22 General Accounting Clerk Relationship Specialty Start Date End Date Yi Moreno MD [address] [place] [address] 32439 Physician Otolaryngology 01/23/22 Rikki Rodrigues DMD, MD [address] [place] [address] 60810 Physician Oral & Maxillofacial Surgery 06/26/22 General Accounting Clerk Relationship Specialty Start Date End Date Yi Moreno MD [address] [place] [address] 64176 Physician Otolaryngology 01/23/22 Rikki Rodrigues DMD, MD [address] [place] [address] 46944 Physician Oral & Maxillofacial Surgery 06/26/22 General Accounting Clerk Relationship Specialty Start Date End Date Yi Moreno MD [address] [place] [address] 91725 Physician Otolaryngology 01/23/22 Rikki Rodrigues DMD, MD [address] [place] [address] 27597 Physician Oral & Maxillofacial Surgery 06/26/22 General Accounting Clerk Relationship Specialty Start Date End Date Yi Moreno MD [address] [place] [address] 43338 Physician Otolaryngology 01/23/22 General Accounting Clerk Relationship Specialty Start Date End Date Yi Moreno MD [address] [place] [address] 05414 Physician Otolaryngology 01/23/22 Rikki Rodrigues DMD, MD [address] [place] [address] 26177 Physician Oral & Maxillofacial Surgery 06/26/22 General Accounting Clerk Relationship Specialty Start Date End Date Yi Moreno MD [address] [place] [address] 86714 Physician Otolaryngology 01/23/22 Rikki Rodrigues DMD, MD [address] [place] [address] 82974 Physician Oral & Maxillofacial Surgery 06/26/22 General Accounting Clerk Relationship Specialty Start Date End Date Yi Moreno MD [address] [place] [address] 30518 Physician Otolaryngology 01/23/22 Rikki Rodrigues DMD, MD [address] [place] [address] 61765 Physician Oral & Maxillofacial Surgery 06/26/22 General Accounting Clerk Relationship Specialty Start Date End Date Yi Moreno MD [address] [place] [address] 12880 Physician Otolaryngology 01/23/22 Rikki Rodrigues DMD, MD [address] [place] [address] 26130 Physician Oral & Maxillofacial Surgery 06/26/22 General Accounting Clerk Relationship Specialty Start Date End Date Yi Moreno MD [address] [place] [address] 04949 Physician Otolaryngology 01/23/22 Rikki Rodrigues DMD, MD [address] [place] [address] 38590 Physician Oral & Maxillofacial Surgery 06/26/22 Gena Holbrook APRN-MS SQL SERVER DEVELOPER [address] [place] [address] 99682 WILL CALL CLERK Anesthesiology 07/24/22 General Accounting Clerk Relationship Specialty Start Date End Date Yi Moreno MD [address] [place] [address] 05262 Physician Otolaryngology 01/23/22 Rikki Rodrigues DMD, MD [address] [place] [address] 16980 Physician Oral & Maxillofacial Surgery 06/26/22 Gena Holbrook APRN-MS SQL SERVER DEVELOPER [address] [place] [address] 66913 WILL CALL CLERK Anesthesiology 07/24/22 General Accounting Clerk Relationship Specialty Start Date End Date Gena Kirby [facility] [place] [address] PCP - General Nurse Practitioner 11/30/21 General Accounting Clerk Relationship Specialty Start Date End Date Yi Moreno MD [address] [place] [address] 11958 Physician Otolaryngology 01/23/22 Rikki Rodrigues DMD, MD [address] [place] [address] 48665 Physician Oral & Maxillofacial Surgery 06/26/22 Gena Holbrook APRN-MS SQL SERVER DEVELOPER [address] [place] [address] 48725 WILL CALL CLERK Anesthesiology 07/24/22 General Accounting Clerk Relationship Specialty Start Date End Date Yi Moreno MD [address] [place] [address] 40248 Physician Otolaryngology 01/23/22 Rikki Rodrigues DMD, MD [address] [place] [address] 57027 Physician Oral & Maxillofacial Surgery 06/26/22 Gena Holbrook APRN-MS SQL SERVER DEVELOPER [address] [place] [address] 70571 WILL CALL CLERK Anesthesiology 07/24/22 General Accounting Clerk Relationship Specialty Start Date End Date Gena Kirby [address] [place] [address] PCP - General Nurse Practitioner 11/30/21 General Accounting Clerk Relationship Specialty Start Date End Date Yi Moreno MD [address] [place] [address] 25200 Physician Otolaryngology 01/23/22 Rikki Rodrigues DMD, MD [address] [place] [address] 26444 Physician Oral & Maxillofacial Surgery 06/26/22 Gena Holbrook APRN-BRIAN [address] [place] [address] 95416 WILL CALL CLERK Anesthesiology 07/24/22 Team Status: Inactive Member Role [...] Team Status: Inactive Member Role Status Dates Genalonnie Kirby Primary Care Provider Active Sta rt: August 08, 2023 End: August 08, 2023 David Martinez MD Attending Provider Active Start: August 08, 2023 End: August 08, 2023 Team Status: Inactive Member Role Status Dates Genalonnie Kirby Primary Care Provider Active Sta rt: [...] June 11, 2024 End: June 11, 2024 General Accounting Clerk Relationship Specialty Start Date End Date Magdiel Munoz MD [address] [place] [address] PCP - General Family Medicine 03/18/23 Gena Kirby, DENTAL RECEPTIONIST [address] [place] [address] Referring Physician Nurse Practitioner 03/18/23 General Accounting Clerk Relationship Specialty Start Date End Date Magdiel Munoz MD [address] [place] [address] PCP - General Family Medicine 03/18/23 Gena Kirby, DENTAL RECEPTIONIST [address] [place] [address] Referring Physician Nurse Practitioner 03/18/23 General Accounting Clerk Relationship Specialty Start Date End Date Yi Moreno MD [address] [place] [address] 47706 Physician Otolaryngology 01/23/22 Rikki Rodrigues DMD, MD [address] [place] [address] Physician Oral & Maxillofacial Surgery 06/26/22 Gena Holbrook APRN-MS SQL SERVER DEVELOPER [address] [place] [address] WILL CALL CLERK Anesthesiology 07/24/22 General Accounting Clerk Relationship Specialty Start Date End Date Magdiel Munoz MD [address] [place] [address] PCP - General Family Medicine 03/18/23 Gena Kirby NP [address] [place] [address] Referring Physician Nurse Practitioner 03/18/23 General Accounting Clerk Relationship Specialty Start Date End Date Magdiel Munoz MD [address] [place] [address] PCP - General Family Medicine 03/18/23 Gena Kirby NP [address] [place] [address] Referring Physician Nurse Practitioner 03/18/23 General Accounting Clerk Relationship Specialty Start Date End Date Magdiel Munoz MD [address] [place] [address] PCP - General Family Medicine 03/18/23 Gena Kirby NP [address] [place] [address] Referring Physician Nurse Practitioner 03/18/23 General Accounting Clerk Relationship Specialty Start Date End Date Magdiel Munoz MD [address] [place] [address] PCP - General Family Medicine 03/18/23 Gena Kirby NP [address] [place] [address] Referring Physician Nurse Practitioner 03/18/23 General Accounting Clerk Relationship Specialty Start Date End Date Magdiel Munoz MD [address] [place] [address] PCP - General Family Medicine 03/18/23 Gena Kirby NP [address] [place] [address] Referring Physician Nurse Practitioner 03/18/23 General Accounting Clerk Relationship Specialty Start Date End Date Magdiel Munoz MD [address] [place] [address] PCP - General Family Medicine 03/18/23 Gena Kirby NP [address] [place] [address] Referring Physician Nurse Practitioner 03/18/23 Team Status: [...] September 04, 2024 End: September 04, 2024 General Accounting Clerk Relationship Specialty Start Date End Date Magdiel Munoz MD [address] [place] [address] PCP - General Family Medicine 03/18/23 Gena Kirby NP [address] [place] [address] Referring Physician Nurse Practitioner 03/18/23 Team Status: Inactive Member Role Status Dates Gena Kirby Primary Care Provider Active Sta rt: September 10, 2024 End: September 10, 2024 Majo Lyman APRN Attending Provider Active Start: September 10, 2024 End: September 10, 2024 General Accounting Clerk Relationship Specialty Start Date End Date Magdiel Munoz MD [address] [place] [address] PCP - General Family Medicine 03/18/23 Gena Kirby NP [address] [place] [address] Referring Physician Nurse Practitioner 03/18/23 General Accounting Clerk Relationship Specialty Start Date End Date Gena Kirby APRN - DENTAL RECEPTIONIST [address] [place] [address] PCP - General Nurse Practitioner 11/30/21 General Accounting Clerk Relationship Specialty Start Date End Date Magdiel Munoz MD [address] [place] [address] PCP - General Family Medicine 03/18/23 Gena Kirby NP [address] [place] [address] Referring Physician Nurse Practitioner 03/18/23 General Accounting Clerk Relationship Specialty Start Date End Date Magdiel Munoz MD [address] [place] [address] PCP - General Family Medicine 03/18/23 Gena Kirby NP [address] [place] [address] Referring Physician Nurse Practitioner 03/18/23 General Accounting Clerk Relationship Specialty Start Date End Date Magdiel Munoz MD [address] [place] [address] PCP - General Family Medicine 03/18/23 Gena Kirby NP [address] [place] [address] Referring Physician Nurse Practitioner 03/18/23 General Accounting Clerk Relationship Specialty Start Date End Date Magdiel Munoz MD [address] [place] [address] PCP - General Family Medicine 03/18/23 Gena Kirby NP [address] [place] [address] Referring Physician Nurse Practitioner 03/18/23 General Accounting Clerk Relationship Specialty Start Date End Date Magdiel Munoz MD [address] [place] [address] PCP - General Family Medicine 03/18/23 Gena Kirby NP [address] [place] [address] Referring Physician Nurse Practitioner 03/18/23 General Accounting Clerk Relationship Specialty Start Date End Date Magdiel Munoz MD [address] [place] [address] PCP - General Family Medicine 03/18/23 Gena Kirby NP [address] [place] [address] Referring Physician Nurse Practitioner 03/18/23 General Accounting Clerk Relationship Specialty Start Date End Date Magdiel Munoz MD [address] [place] [address] PCP - General Family Medicine 03/18/23 Gena Kirby NP [address] [place] [address] Referring Physician Nurse Practitioner 03/18/23 Team Status: [...] October 23, 2024 End: October 23, 2024 General Accounting Clerk Relationship Specialty Start Date End Date Magdiel Munoz MD [address] [place] [address] PCP - General Family Medicine 03/18/23 Gena Kirby NP [address] [place] [address] Referring Physician Nurse Practitioner 03/18/23 General Accounting Clerk Relationship Specialty Start Date End Date Magdiel Munoz MD [address] [place] [address] PCP - General Family Medicine 03/18/23 Gena Kirby NP [address] [place] [address] Referring Physician Nurse Practitioner 03/18/23 General Accounting Clerk Relationship Specialty Start Date End Date Magdiel Munoz MD [address] [place] [address] PCP - General Family Medicine 03/18/23 Gena Kirby NP [address] [place] [address] Referring Physician Nurse Practitioner 03/18/23 General Accounting Clerk Relationship Specialty Start Date End Date Magdiel Munoz MD [address] [place] [address] PCP - General Family Medicine 03/18/23 Gena Kirby NP [address] [place] [address] Referring Physician Nurse Practitioner 03/18/23 General Accounting Clerk Relationship Specialty Start Date End Date Magdiel Munoz MD [address] [place] [address] PCP - General Family Medicine 03/18/23 Gena Kirby NP [address] [place] [address] Referring Physician Nurse Practitioner 03/18/23 General Accounting Clerk Relationship Specialty Start Date End Date Magdiel Munoz MD [address] [place] [address] PCP - General Family Medicine 03/18/23 Gena Kirby NP [address] [place] [address] Referring Physician Nurse Practitioner 03/18/23 General Accounting Clerk Relationship Specialty Start Date End Date Magdiel Munoz MD [address] [place] [address] PCP - General Family Medicine 03/18/23 Gena Kirby NP [address] [place] [address] Referring Physician Nurse Practitioner 03/18/23 General Accounting Clerk Relationship Specialty Start Date End Date Magdiel Munoz MD [address] [place] [address] PCP - General Family Medicine 03/18/23 Gena Kirby NP [address] [place] [address] Referring Physician Nurse Practitioner 03/18/23 General Accounting Clerk Relationship Specialty Start Date End Date Magdiel Munoz MD [address] [place] [address] PCP - General Family Medicine 03/18/23 Gena Kirby NP [address] [place] [address] Referring Physician Nurse Practitioner 03/18/23 General Accounting Clerk Relationship Specialty Start Date End Date Magdiel Munoz MD [address] [place] [address] PCP - General Family Medicine 03/18/23 Gena Kirby NP [address] [place] [address] Referring Physician Nurse Practitioner 03/18/23 General Accounting Clerk Relationship Specialty Start Date End Date Magdiel Munoz MD [address] [place] [address] PCP - General Family Medicine 03/18/23 Gena Kirby NP [address] [place] [address] Referring Physician Nurse Practitioner 03/18/23 General Accounting Clerk Relationship Specialty Start Date End Date Magdiel Munoz MD [address] [place] [address] PCP - General Family Medicine 03/18/23 Gena Kirby NP [address] [place] [address] Referring Physician Nurse Practitioner 03/18/23 General Accounting Clerk Relationship Specialty Start Date End Date Magdiel Munoz MD [address] [place] [address] PCP - General Family Medicine 03/18/23 Gena Kirby NP [address] [place] [address] Referring Physician Nurse Practitioner 03/18/23 General Accounting Clerk Relationship Specialty Start Date End Date Magdiel Munoz MD [address] [place] [address] PCP - General Family Medicine 03/18/23 Gena Kirby NP [address] [place] [address] Referring Physician Nurse Practitioner 03/18/23 General Accounting Clerk Relationship Specialty Start Date End Date Magdiel Munoz MD [address] [place] [address] PCP - General Family Medicine 03/18/23 Gena Kirby NP [address] [place] [address] Referring Physician Nurse Practitioner 03/18/23 General Accounting Clerk Relationship Specialty Start Date End Date Magdiel Munoz MD [address] [place] [address] PCP - General Family Medicine 03/18/23 Gena Kirby NP [address] [place] [address] Referring Physician Nurse Practitioner 03/18/23 General Accounting Clerk Relationship Specialty Start Date End Date Magdiel Munoz MD [address] [place] [address] PCP - General Family Medicine 03/18/23 Gena Kirby NP [address] [place] [address] Referring Physician Nurse Practitioner 03/18/23 General Accounting Clerk Relationship Specialty Start Date End Date Magdiel Munoz MD [address] [place] [address] PCP - General Family Medicine 03/18/23 Gena Kirby NP [address] [place] [address] Referring Physician Nurse Practitioner 03/18/23 General Accounting Clerk Relationship Specialty Start Date End Date Magdiel Munoz MD [address] [place] [address] PCP - General Family Medicine 03/18/23 Gena Kirby NP [address] [place] [address] Referring Physician Nurse Practitioner 03/18/23 General Accounting Clerk Relationship Specialty Start Date End Date Magdiel Munoz MD [address] [place] [address] PCP - General Family Medicine 03/18/23 Gena Kirby NP [address] [place] [address] Referring Physician Nurse Practitioner 03/18/23 General Accounting Clerk Relationship Specialty Start Date End Date Magdiel Munoz MD [address] [place] [address] PCP - General Family Medicine 03/18/23 Gena Kirby NP [address] [place] [address] Referring Physician Nurse Practitioner 03/18/23 General Accounting Clerk Relationship Specialty Start Date End Date Magdiel Munoz MD [address] [place] [address] PCP - General Family Medicine 03/18/23 Gena Kirby NP [address] [place] [address] Referring Physician Nurse Practitioner 03/18/23 General Accounting Clerk Relationship Specialty Start Date End Date Magdiel Munoz MD [address] [place] [address] PCP - General Family Medicine 03/18/23 Gena Kirby NP [address] [place] [address] Referring Physician Nurse Practitioner 03/18/23 General Accounting Clerk Relationship Specialty Start Date End Date Magdiel Munoz MD [address] [place] [address] PCP - General Family Medicine 03/18/23 Gena Kirby NP [address] [place] [address] Referring Physician Nurse Practitioner 03/18/23 General Accounting Clerk Relationship Specialty Start Date End Date Magdiel Munzo MD [address] [place] [address] PCP - General Family Medicine 03/18/23 Gena Kirby NP [address] [place] [address] Referring Physician Nurse Practitioner 03/18/23 General Accounting Clerk Relationship Specialty Start Date End Date Magdiel Munoz MD [address] [place] [address] PCP - General Family Medicine 03/18/23 Gena Kirby NP [address] [place] [address] Referring Physician Nurse Practitioner 03/18/23 General Accounting Clerk Relationship Specialty Start Date End Date Magdiel Munoz MD [address] [place] [address] PCP - General Family Medicine 03/18/23 Gena Kirby NP [address] [place] [address] Referring Physician Nurse Practitioner 03/18/23 Team Status: Inactive Member Role Status Dates Gena Kirby Primary Care Provider Active Sta rt: April 14, 2025 End: April 14, 2025 Jarad Husain MD Attending Provider Active St art: April 14, 2025 End: April 14, 2025 Team Status: Inactive Member Role Status Dates Gena Kirby Primary Care Provider Active Sta rt: April 23, 2025 End: April 23, 2025 Martínez Correa DO Attending Provider Active Start: April 23, 2025 End: April 23, 2025 Team Status: Inactive Member Role Status Dates Gena Sina Kirby Primary Care Provider Active Sta rt: April 23, 2025 End: April 23, 2025 Majo Lyman APRN Attending Provider Active Start: April 23, 2025 End: April 23, 2025 General Accounting Clerk Relationship Specialty Start Date End Date Magdiel Munoz MD [address] [place] [address] PCP - General Family Medicine 03/18/23 Gena Kirby NP Referring Physician Nurse Practitioner 03/18/23 Scheduled Active [...] IVPB 400 mg (COMPLETED) 400 mg, IntraVENous, GAS APPLIANCE SERVICER HELPER TO O.R., 1 dose, On Tue01/05/22 at [...] doses, Starting on Tue02/25/22 at 1025, Until Christen 02/25/22 at 1808, [...] Brown RN)1400 (Due - Provider: Dulce Olson [facility])1800 (Due - Provider: Dulce Olson [facility])2200 (Due - Provider: Dulce Olson [facility]) acetaminophen (TYLENOL) tablet (CANCELED) 650 mg, Oral, [...] 0916 (Given - Provider: Penny Brown, RN) chlorhexidine (PERIDEX) 0.12 % oral solution 15 mL, Swish & Spit, 2 TIMES DAILY, First dose on Tue07/14/22 at 1530, Until Discontinued, ICU/Step Down 0900 (Given - Provider: Lauren Crawford RN)2099 (Given - Provider: Lemuel Gilbert, [place]) 08 (Given - Provider: Linh Fregoso RN)2042 (Given - Provider: Lola Wyatt, [place]) 0916 (Given - Provider: Penny Brown, [place])2099 [...] refused) 0900 (Hold/Not Given - Provider: Penny Brown, [place] [...] Gilbert, [place]) 0655 (Given - Provider: Donya Lam, [place])1358 (Given - Provider: Cleo Tao RN)2046 (Hold/Not [...] oxymetazoline (AFRIN) 0.05 % nasal solution 2 [place], Nasal, EVERY 4 HOURS PRN, Starting on Tue07/14/22 at 1516, Until Discontinued, Nosebleed, ICU/Step Down sodium chloride (OCEAN) 0.65 % nasal spray 1 [place], Nasal, EVERY 1 HOUR PRN, Starting on Tue07/14/22 at 1516, Until Discontinued, Congestion, Congestion due to dryness, ICU/Step Down Reason for Visit (unrecogniz ed section and content) Reason Comments New patient, to establish relationship S leep Apnea, Inspire Specialty Diagnoses / Procedures Referred By Casper t Referred To Contact Ent-Otolaryngology Diagnoses Sleep apnea, unspecified type Wiley Mcmanus MD [address] [place] [address] [facility] [address] [place] [address] Referral ID Status Reason Start Date Expiration Date Visits Requested Visits Authorized [id number] Pending Review [facility] Care[facility] 01/01/2022 01/01/2023 3 3 Reason [...] DIONNE (obstructive sleep apnea) Yi Moreno MD [address] [place] [address] Rikki Rodrigues DMD, MD [address] [place] [address] Referral ID Status Reason Start Date Expiration Date V isits Requested Visits Authorized [id number] Pending Review 05/26/2022 05/26/2023 3 3 Reason [...] SAGITTAL SPLIT, BILATERAL Rikki Rodrigues DMD, MD [address] [place], [place] [id number] [employer] [address] [place] [address] Phone: [phone] Referral ID Status Reason Start Date Expiration Date Visits Re quested Visits Authorized [id number] 3 3 Reason Comments Post Op Check [...] Orthopaedic Surgery Diagnoses Chronic right shoulder pain Gena Kirby, PHILLY [address] [place] [address] Phone: tel: fax: Mark Olmedo, PA [address] [place] [address] Phone: tel: fax: Referral ID Status Reason Start Date Expiration Date V isits Requested Visits Authorized [id number] Closed Specialty Services Required 01/07/2025 07/06/2025 1 1 Reason Comments chronic pain Reason Onset Date Comments wants to ask the providers nurse about her injec t 02/14/2025 Reason Onset Date Comments Unable to do the MRI due to Aspire 02/19/2025 Reason Comments Follow-up Reason Comments Follow-up Thyroid Problem Reason Onset Date Comments r SHOULDER XR/ARTHROGRAM 05/01/2025 Goals (unrecognized section and content) Goals may [...] BE BASED ON THE PRIMARY CLINICAL RECORDS. [employer] [facility]. provides no warranty or guarantee of the accuracy or completeness of information in this document.
[2025-05-04 14:08] LABS: Free T3 1.85 pg/mL (2.18-3.98); Thyroid Stimulating Hormone 1.414 uIU/mL (0.358-3.740)
== END 2025-05-04 12:48 | disposition home or self-care (01) ==
LOC: LAB 12:49
PROVIDERS: PCP Nurse Practitioner; Visit Provider Internal Medicine
DX: E03.9 Hypothyroidism, unspecified (principal)
CPT/HCPCS: 36415; 84439; 84443; 84481

== ENCOUNTER 2025-07-11 15:06 | Outpatient (OUT) | payer OTHER, SELFPAY ==
--- NOTE | 2025-07-11 15:10 | MM_ITS ---
Patient Name: VEDA HEWITT MR#: [id number] : 1975 Exam Date: 07/11/2025 Ordering Doctor: DR TO PLUMMER . RADIOLOGY REPORT PROCEDURE: MM TOMOSYNTHESIS SCREENING BI COMPARISON: MM TOMOSYNTHESIS DIAGNOSTIC LT, 07/11/2024. MM POST BIOPSY LT, 12/29/2023. MM STEREOTACTIC LOC LT, 12/29/2023. MM DIAGNOSTIC MAMMO UNILAT LT, 12/16/2023. INDICATIONS: Screening Calculator Name NCI Breast Cancer Risk Assessment Tool 5 Year Breast Cancer Risk Not Reported. Lifetime Breast Cancer Risk Not Reported. Personal Breast Cancer No Personal Ovarian Cancer No Treatments None Family Cancers None LOCATION: [facility] BREAST COMPOSITION: The breasts are heterogeneously dense, which may obscure small masses. FINDINGS: DIAGNOSTIC CATEGORY 1--NEGATIVE. RIGHT BREAST: No significant suspicious finding. LEFT BREAST: No significant suspicious finding. RECOMMENDATIONS: ROUTINE MAMMOGRAM AND CLINICAL EVALUATION IN 12 MONTHS. Dictated by: Obdulio Mejia DO on 07/11/2025 at 16:09 Approved by: Obdulio Mejia DO on 07/11/2025 at 16:11
== END 2025-07-11 15:07 | disposition home or self-care (01) ==
LOC: MAMMO 15:06
PROVIDERS: Visit Provider Obstetrics & Gynecology
DX: Z12.31 Encounter for screening mammogram for malignant neoplasm of breast (principal)
CPT/HCPCS: 77063; 77067